=== PATIENT | female | born 1975 | race Hispanic/Latino ===

== ENCOUNTER → 2017-05-24 15:12 | Outpatient (CLI) | payer OTHER, SELFPAY ==
--- NOTE | 2017-05-24 15:28 | RAD_ITS ---
STUDY: X-RAY CHEST REASON FOR EXAM: Female, 41 years old. Cough TECHNIQUE: Frontal and lateral views of the chest were obtained. COMPARISON: Prior comparison studies are not available for review at this time. FINDINGS: The lungs are adequately aerated. There are no focal airspace opacities. There is no demonstrated pleural abnormality. The cardiac silhouette is normal in size. The mediastinum and hilar regions are unremarkable. Normal visualized pulmonary arteries. Normal visualized aortic arch and descending thoracic aorta. There are mild diffuse degenerative changes of the visualized spine. The visualized ribs, clavicles, and shoulders are unremarkable. There is no demonstrated abnormality of the visualized upper abdomen. RAD/Chest PA and Lateral IMPRESSION: There is no evidence of focal consolidation or pleural effusion. Electronically Signed: Chrystal Evans MD at 16:13 EST Tel Direct: [phone], Service support ,
[2017-05-24 16:36] LABS: Absolute Lymphocyte Count 1.79 X10^3/ul (0.83-4.51); Absolute Neutrophil Count 3.7 X10^3/uL (2.0-7.7); Basophil# 0.06 X10^3/uL; Eosinophil# 0.16 X10^3/uL; Eosinophils% 2.6 % (0-5); Hematocrit 40.8 % (37-47); Hemoglobin 13.3 g/dl (12.0-15.0); Lymphocyte # 1.79 X10^3/ul (4.0); Lymphocyte % 29.2 % (19-41); Mean Corp Hgb Conc 32.6 g/gl (32-36); Mean Corpuscular Volume 89.1 fL (81-99); Mean Platelet Vol. 10.1 fl (6.2-12.0); Monocyte% 6.5 % (0-10); Neutrophil # 3.71 X10^3/uL (2.7-7.7); Neutrophil % 60.5 % (47-70); Platelet Count 307 K/mm3 (150-450); RBC Distribution Width CV 13.1 % (11.6-14.6); RBC Distribution Width SD 42.7 fl (35.1-43.9); Red Blood Count 4.58 M/mm3 (4.2-5.4); White Blood Count 6.1 K/mm3 (4.4-11.0)
[2017-05-24 16:41] LABS: POSITIVE COUNT NO; POSITIVE DIFFERENTIAL NO; POSITIVE MORPHOLOGY NO
[2017-05-24 17:26] LABS: D-Dimer Quantitative (DVT/PE) 0.28 FEU/ug/m (0.27-0.49)
== END ==
PROVIDERS: Family Provider Family Medicine; PCP Family Medicine; Visit Provider Family Medicine
DX: J40 Bronchitis, not specified as acute or chronic (principal)
CPT/HCPCS: 36415; 71046; 85025; 85379

== ENCOUNTER → 2018-03-02 11:40 | Outpatient (CLI) | payer OTHER, SELFPAY ==
[2018-03-02 16:04] LABS: Vitamin D,25 Hydroxy 23.9 ng/mL (29.95-100.01)
[2018-03-02 16:09] LABS: Absolute Lymphocyte Count 1.96 X10^3/ul (0.83-4.51); Absolute Neutrophil Count 3.9 X10^3/uL (2.0-7.7); Basophil# 0.04 X10^3/uL; Basophil% 0.6 % (0-1); Eosinophil# 0.18 X10^3/uL; Eosinophils% 2.8 % (0-5); Hematocrit 44.1 % (37-47); Hemoglobin 14.2 g/dl (12.0-15.0); Lymphocyte # 1.96 X10^3/ul (4.0); Lymphocyte % 30.2 % (19-41); Mean Corp Hgb Conc 32.2 g/gl (32-36); Mean Corpuscular Hgb 29.1 pg (27.0-32.0); Mean Corpuscular Volume 90.4 fL (81-99); Mean Platelet Vol. 10.1 fl (6.2-12.0); Monocyte# 0.44 X10^3/uL; Monocyte% 6.8 % (0-10); Neutrophil # 3.87 X10^3/uL (2.7-7.7); Neutrophil % 59.4 % (47-70); Platelet Count 303 K/mm3 (150-450); RBC Distribution Width CV 13.5 % (11.6-14.6); RBC Distribution Width SD 44.4 fl (35.1-43.9); Red Blood Count 4.88 M/mm3 (4.2-5.4); White Blood Count 6.5 K/mm3 (4.4-11.0)
[2018-03-02 16:19] LABS: ALB/GLOB Ratio 1.1 RATIO (0.9-2.4); AST(SGOT) 35 U/L (15-37); Alanine Aminotransfer ALT/SGPT 47 U/L (13-56); Alkaline Phosphatase 76 U/L (45-117); Anion Gap 9 (5-15); BUN 14 mg/dL (7-18); BUN/Creat Ratio 21.1 RATIO (10-20); Calcium,Total 9.1 mg/dL (8.5-10.1); Chloride 104 mmol/L (98-107); Cholesterol 176 mg/dL (200); Creatinine, Serum 0.66 mg/dL (0.55-1.02); EST Glomerular Filtration Rate 104 mL/min (>60); Est Glom Filt Rate - Afr Amer 126 mL/min (>60); Globulin 3.8 g/dL (2.2-4.2); Glucose 87 mg/dL (74-106); High Density Lipoprotein 48 mg/dL; Potassium 4.5 mmol/L (3.5-5.1); Protein, Total 7.8 g/dL (6.4-8.2); Sodium Level 139 mmol/L (136-145); Thyroid Stim Hormone (TSH) 1.68 uIU/mL (0.358-3.74); Triglycerides 141 mg/dL; Very Low Density Lipoprotein 28 mg/dL (5-40)
[2018-03-02 16:36] LABS: POSITIVE COUNT NO; POSITIVE DIFFERENTIAL NO; POSITIVE MORPHOLOGY NO
== END ==
PROVIDERS: Family Provider Family Medicine; PCP Family Medicine; Visit Provider Family Medicine
DX: Z00.00 Encounter for general adult medical examination without abnormal findings (principal); R10.9 Unspecified abdominal pain
CPT/HCPCS: 36415; 80053; 80061; 82306; 84443; 85025

== ENCOUNTER → 2018-03-03 16:16 | Outpatient (CLI) | payer OTHER, SELFPAY ==
--- NOTE | 2018-03-03 16:21 | US_ITS ---
STUDY: ABDOMINAL ULTRASOUND REASON FOR EXAM: Female, 42 years old. Left upper quadrant pain TECHNIQUE: Transabdominal ultrasound was performed with real-time and static george scale imaging. TECHNICAL QUALITY: Adequate. COMPARISON: None. FINDINGS: Liver: The liver measures 15 cm. There is normal echogenicity of the liver. The bile ducts are within normal limits. There is no demonstrated mass lesion. Gallbladder: The patient is status post cholecystectomy. Common Bile Duct (C.B.D.): The common bile duct measures 4 mm. Pancreas: Normal head and body of the pancreas. Nonvisualized pancreatic tail secondary to bowel gas. There is normal echogenicity of the pancreas. There is no demonstrated pancreatic mass or cyst. Spleen: Normal size of the spleen. The spleen measures 11.8 x 5.3 x 4.1 cm. Right Kidney: Normal size of the right kidney. The right kidney measures 11.3 x 6.0 x 5.9 cm. Normal renal cortex. The right cortex measures 1.8 cm. There is no demonstrated renal mass or cyst. There is no right hydronephrosis. Left Kidney: Normal size of the left kidney. The left kidney measures 11.7 x 5.1 x 5.8 cm. Normal renal cortex. The left cortex measures 1.5 cm. There is no demonstrated renal mass or cyst. There is no left hydronephrosis. Aorta: Negative for aneurysm. I.V.C.: The IVC is patent. There is no ascites. US/Abdomen Complete IMPRESSION: Pancreatic tail not visualized secondary to bowel gas. Otherwise normal abdomen ultrasound status post cholecystectomy. Electronically Signed: Angela Campbell MD at 18:49 EST , Service support ,
== END ==
PROVIDERS: Family Provider Family Medicine; PCP Family Medicine; Referring Provider Family Medicine; Visit Provider Family Medicine
DX: R10.9 Unspecified abdominal pain (principal)
CPT/HCPCS: 76700

== ENCOUNTER → 2018-03-15 18:12 | Outpatient (CLI) | payer OTHER, SELFPAY ==
[2018-03-15 09:58] VITALS: BMI 37.2
--- NOTE | 2018-03-15 18:17 | US_ITS ---
STUDY: ULTRASOUND OF THE FEMALE PELVIS - COMPLETE REASON FOR EXAM: Female, 42 years old. Left lower quadrant pain LMP: Unknown. TECHNIQUE: Transabdominal and Transvaginal TECHNICAL QUALITY: Adequate. COMPARISON: None. FINDINGS: The uterus is anteverted and is in a midline position. The uterus measures 8.9 x 4.8 x 3.7 cm. There is a Nabothian cyst of the cervix. The endometrium measures 7 mm in thickness, and is hyperechoic. There is no demonstrated endometrial mass. There is no demonstrated myometrial mass. I.U.D. - The patient does not have an I.U.D. The right ovary is non-visualized. The left ovary is visualized. The left ovary measures 2.2 x 1.9 x 1.7 cm. There is no left ovarian cyst or ovarian mass. There is no visualized left adnexal mass or complex lesion. There is normal arterial and normal venous vascularity. There is no fluid in the cul-de-sac. The pre void volume of the bladder was 11.9 ml. Polycystic ovary disease: No. US/Transvaginal Non- IMPRESSION: The right ovary was not visualized. Uterus and left ovary are unremarkable. There is a cervical nabothian cyst. There is no fluid in the cul-de-sac. Electronically Signed: Arias Acevedo MD at 23:59 EST , Service support ,
[2018-03-15 23:17] LABS: Chlamydia Trachomatis by PCR Negative (Negative); Neisserai gonorrhoeae by PCR Negative (Negative); Probe Check PASS; Sample Adequacy Control PASS; Specimen Processing Control PASS
--- OUTSIDE RECORDS SUMMARY | 2018-06-17 06:06 | XMS RPT_ITS ---
:1975 Author Organization OHIP Support Name Relationship Address Phone ALONOVUS CYNTHIA Unavailable [phone] + [place] [address] NAVAS, ZAIRE Unavailable [address] + [place] [address] BRENDAN, THEE Unavailable [address] + [place] [address] ALONOVUS CYNTHIA Unavailable [address] + [place] [address] NAVAS, ZAIRE Unavailable [address] + [place] [address] BRENDAN, THEE Unavailable [address] + [place] [address] ALONOVUS CYNTHIA Unavailable [address] + [place] [address] NAVAS, ZAIRE Unavailable [address] + [place] [address] BRENDAN, THEE Unavailable [address] + [place] [address] ALONOVUS CYNTHIA Unavailable [address] + [place] [address] NAVAS, ZAIRE Unavailable [address] + [place] [address] BRENDAN, THEE Unavailable [address] + [place] [address] ALONOVUS CYNTHIA Unavailable [address] + [place] [address] NAVAS, ZAIRE Unavailable [address] + [place] [address] BRENDAN, THEE Unavailable [address] + [place] [address] ALONOVUS CYNTHIA Unavailable . +. . ., . . NAVAS, ZAIRE Unavailable [address] + [place] [address] THEE CARDONA Unavailable [address] [facility] + [place] [address] ALONOVUS CYNTHIA Unavailable . +. . ., . . NAVAS, ZAIRE Unavailable [address] + [place] [address] THEE CARDONA Unavailable [address] [facility] + [place] [address] Care Team Providers Name Role Phone Jacqueline Martinez Attending Unavailable Siu, Ashok Primary Care Unavailable Siu, Ashok Attending Unavailable Siu, Ashok Referring Unavailable Siu, Ashok Primary Care Unavailable Siu, Ashok Attending Unavailable Siu, Ashok Primary Care Unavailable CharlotteJacqueline Attending Unavailable Siu, Ashok Referring Unavailable Siu, Ashok Attending Unavailable Siu, Ashok Referring Unavailable Siu, Ashok Primary Care Unavailable MichelleJacqueline Attending Unavailable Siu, Ashok Referring Unavailable Siu, Ashok Attending Unavailable Siu, Ashok Primary Care Unavailable PROBLEMS PROBLEMS DATE TYPE CONDITION / CODE ATTENDING STATUS SOURCE 03/16/2018 Unknown R10.9 - Ashok Siu Active [place] Unspecified Community abdominal pain / Hospital R10.9(ICD-10) Repository 03/15/2018 Unknown R10.2 - Pelvic MichelleJacqueline de leon Active [place] and perineal pain Community / R10.2(ICD-10) Hospital Repository 03/02/2018 Unknown Z00.00 - Ashok Siu Active [place] Encounter for [facility] medical Repository examination without abnormal findings / Z00.00(ICD-10) 05/24/2017 Unknown J40 - Bronchitis, Ashok Siu Active [place] not specified as [facility] acute or chronic Hospital / J40(ICD-10) Repository PROCEDURES PROCEDURES No Procedure Records FoundRESULTS RESULTS RELATIONSHIP ADVISOR OFFICE VISIT Observed: 04/04/2018 Status: F Source: [place] REPORT 12:03 PM [facility] REPOSITORY [facility] 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 Is patient in pain?: No Allergies No Known Allergies Allergy (Verified 04/04/18 11:28) Medications fluoxetine 20 mg capsule 20 mg PO DAILY 03/15/18 [History Confirmed 04/04/18] omeprazole 20 mg capsule,delayed release 20 mg PO DAILY 03/15/18 [History Confirmed 04/04/18] cholecalciferol (vitamin D3) 2,000 unit capsule 2,000 unit PO DAILY 04/04/18 [History Confirmed 04/04/18] dicyclomine 20 mg tablet 20 mg PO .4 times per day tab 04/04/18 [History Confirmed 04/04/18] norgestimate 0.18 mg/0.215 mg/0.25 mg-ethinyl estradiol 25 mcg tablet 1 tab PO DAILY #84 tab 04/04/18 [Rx Confirmed 04/04/18] polyethylene glycol 3350 17 gram/dose oral powder PO g 04/04/18 [History Confirmed 04/04/18] Is last menstrual period known: Yes Last Menstral Period: 03/24/18 Post menopausal: No Patient : No : No PFSH Medical History Acid reflux (Acute) Vitamin D deficiency (Acute) Chronic diarrhea (Chronic) History of anxiety (Acute) Surgical History History of carpal tunnel surgery (Acute) History of tonsillectomy (Acute) Hx of cholecystectomy (Acute) Family History Unknown Diabetes Grandmother Heart disease Colon cancer Social History Smoking Status: Never smoker alcohol intake: current details: social substance use type: does not use caffeine: Yes what type of physical activity do you participate in: aerobics frequency: 1-2 times per week seatbelt use: always do you feel safe at home: Yes additional social history: Single- [place] Weekly News Pregancy History 3 Elective abortions Hx Para 3 Spontaneous abortions Past Pregnancies Del. 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 Last PAP: 2017 History of abnormal PAP: no Last mammogram: sched 04/23/18 History of abnormal mammogram: no Seen in this office last month for pelvic and abdominal pain. Normal US. Diagnosed shingles about 4 days later. Following with PCP. Now on prozac and still feeling irritable. Female Reproductive History Last Menstral Period: 03/24/18 Cycle Length: 21-35 Questions: Metorrhagia: No, Sexually active: Yes, Dyspareunia: No, PCB: No ROS Const Constitutional: Denies fatigue, weight gain or weight loss Cardio Card: Denies chest pain Resp Resp: Denies cough or shortness of breath with activity GI GI: Denies abdominal pain, constipation, change in stools, vomiting or bloating : Reports as per HPI; denies urinary frequency, pelvic pain, urinary urgency, vaginal discharge, vaginal itching, urinary incontinence or difficulty urinating Exam Const General: cooperative, healthy appearing, no acute distress, well developed Orientation: alert, oriented to person, oriented to place HENFL Head: normal to inspection Neck Neck: normal visual inspection Thyroid: thyroid normal Lymphatic: no lymphadenopathy noted Chest Breast inspection: normal inspection of the breasts, normal inspection of the axillae Breast palpation: normal palpation of the breasts, normal palpation of the axillae, no axillary lymphadenopathy Resp Effort AND Inspection: normal respiratory effort GI Palpation: soft, nontender, no masses Rectal Exam: deferred External Female Exam: normal external appearance, normal appearance of the urethra Urethra: normal appearance of the urethra, normal palpation Speculum Exam - Vagina: normal appearance of the vagina, normal vaginal discharge Speculum Exam - Cervix: normal appearance of the cervix Bimanual Exam- Vagina AND Uterus: normal bimanual exam, uterine size normal, uterine shape normal, uterus non-tender Bimanual Exam- Adnexa, other: normal adnexae, no adnexal masses, adnexae non-tender, pelvic support normal Pelvic Support: normal Neuro General: alert, oriented x3 Psych Affect: normal affect Assessment AND Plan Problems 1. 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 Medications New: norgestimate 0.18 mg/0.215 mg/0.25 mg-ethinyl estradiol 25 mcg1 tab PO DAILY 84 tabs 3RF tablet (Zlm-Ao-Clyiuv 0.18 mg/0.215 mg/0.25 mg-25 mcg tablet) Coding Level of Care Code Off vis,est,prev 40-64yrs Diagnoses Encounter for gynecological examination without abnormal finding Z01.419 Gynecological examination findings: abnormal findings ABSENT 04/04/18 1203 <Electronically signed by Jacqueline MARR> Date Jacqueline MARR Cosigner Signature: Date (if applicable) CC: ABD INC DECUB Observed: 03/16/2018 Status: F Source: [place] AND/OR E[place] 9:48 [place] [facility] [facility] Imaging Services [address] [place] [address] Abd Inc Decub and/or Erect MR#: [id number] Acct: [id number] Name: SAMMIE CARDONA Rep #: [id number] : 1975 F 42 From: [place] Acevedo MD PCP: Ashok Siu MD Status: REG CLI Study: Abd Inc Decub and/or Erect Date of Exam: 03/16/18 Exam# [id number] Ordering Dr: Ashok Siu MD STUDY: X-RAY - ABDOMEN/PELVIS REASON FOR EXAM: Female, 42 years old. Left-sided abdominal pain, nausea, diarrhea TECHNIQUE: AP supine and upright views of the abdomen and pelvis. COMPARISON: None. FINDINGS: Normal visualized lung bases. There is an unremarkable bowel gas pattern. There is no demonstrated free abdominal air. The visualized liver, spleen and kidneys are grossly normal in size and morphology. There are numerous bilateral pelvic phleboliths. Normal visualized osseous structures. RAD/Abd Inc Decub and/or Erect IMPRESSION: Numerous bilateral pelvic phleboliths. The study is otherwise unremarkable. Electronically Signed: [place] Acevedo MD at 22:16 EST , Service support , CC: Ashok Siu MD Supplier Development Manager: Signed CT/NG [facility] BY PCR Collected: 03/15/2018 Status: F Source: [place] 6:57 PM [facility] [place] TYPE CODE TESTS RESULT OUT OF RANGE REFERENCE UNITS LAB L8200.2100 Negative Normal Chlam Negative Trac PCR LAB L8200.2200 Negative Normal NG by Negative PCR Performed By: #### L8200.2000 #### [facility] [address] [place], [address] TRANSVAGINAL Observed: 03/15/2018 Status: F Source: [place] NON- 6:17 PM [facility] [place] [facility] Imaging Services [address] [place] [address] Transvaginal Non- MR#: [id number] Acct: [id number] Name: SAMMIE CARDONA Rep #: [id number] : 1975 F 42 From: [place] Acevedo MD PCP: Ashok Siu MD Status: REG CLI Study: Transvaginal Non- Date of Exam: 03/15/18 Exam# [id number] Ordering Dr: Jacqueline Martinez STUDY: ULTRASOUND OF THE FEMALE PELVIS - COMPLETE REASON FOR EXAM: Female, 42 years old. Left lower quadrant pain LMP: Unknown. TECHNIQUE: Transabdominal and Transvaginal TECHNICAL QUALITY: Adequate. COMPARISON: None. FINDINGS: The uterus is anteverted and is in a midline position. The uterus measures 8.9 x 4.8 x 3.7 cm. There is a Nabothian cyst of the cervix. The endometrium measures 7 mm in thickness, and is hyperechoic. There is no demonstrated endometrial mass. There is no demonstrated myometrial mass. I.U.D. - The patient does not have an I.U.D. The right ovary is non-visualized. The left ovary is visualized. The left ovary measures 2.2 x 1.9 x 1.7 cm. There is no left ovarian cyst or ovarian mass. There is no visualized left adnexal mass or complex lesion. There is normal arterial and normal venous vascularity. There is no fluid in the cul-de-sac. The pre void volume of the bladder was 11.9 ml. Polycystic ovary disease: No. US/Transvaginal Non- IMPRESSION: The right ovary was not visualized. Uterus and left ovary are unremarkable. There is a cervical nabothian cyst. There is no fluid in the cul-de-sac. Electronically Signed: [place] Acevedo MD at 23:59 EST , Service support , CC: SHERINE Martinez; Ashok Siu MD Supplier Development Manager: Signed RELATIONSHIP ADVISOR OFFICE VISIT Observed: 03/15/2018 Status: F Source: [place] REPORT 10:35 AM [facility] [place] [facility] [address] [place] [address] OFFICE VISIT Date of Service: 03/15/18 MR#: [id number] Acct: [id number] Name: SAMMIE CARDONA Rep #: [id number] : 1975 Provider: SHERINE Martinez Age/Sex: 42/F [place] [facility] [place]: Signed Intake Vital Signs03/15/18 Height 5 ft 8 in 03/15/18 Weight: 245 lb 03/15/18 Body Mass Index (BMI) 37.2 03/15/18 Blood Pressure 120/78 Intake Visit Reasons: Pelvic pain (left side) w/bleeding and discharge Chief 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: 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, 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: No Is patient in pain?: No Allergies No Known Allergies Allergy (Verified 03/15/18 09:58) Medications fluoxetine 20 mg capsule 20 mg PO DAILY 03/15/18 [History Confirmed 03/15/18] norgestimate 0.18 mg/0.215 mg/0.25 mg-ethinyl estradiol 25 mcg tablet 1 tab PO DAILY 03/15/18 [History Confirmed 03/15/18] omeprazole 20 mg capsule,delayed release 20 mg PO DAILY 03/15/18 [History Confirmed 03/15/18] Is last menstrual period known: Yes Last Menstral Period: 02/23/18 Post menopausal: No Patient : No : No PFSH Medical History History of anxiety (Acute) Surgical History History of carpal tunnel surgery (Acute) History of tonsillectomy (Acute) Hx of cholecystectomy (Acute) Family History Unknown Diabetes Grandmother Heart disease Colon cancer Social History Smoking Status: Never smoker alcohol intake: current details: social substance use type: does not use caffeine: Yes what type of physical activity do you participate in: none seatbelt use: always do you feel safe at home: Yes additional social history: Single- [place] Weekly News HPI Pelvic pain (left side) w/bleeding and discharge: Details: SAMMIE CARDONA is a 42 year old who presents for new patient discussion of lower left pelvic pain and brown discharge X 5 days. Makes her feel nauseous, bloated. Has had new sexual partner. On oral contraceptive per PCP. Has annual exam scheduled next month with me Female Reproductive History Last Menstral Period: 02/23/18 Pregancy History 3 Elective abortions Hx Para 3 Spontaneous abortions Past Pregnancies Del. 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 FOB t n h a n ROS Const Constitutional: Reports as per HPI GI GI: Reports as per HPI : Reports as per HPI Exam Const General: cooperative General: bladder normal to palpation External Female Exam: normal external appearance, normal appearance of the urethra Urethra: normal appearance of the urethra Speculum Exam - Vagina: normal appearance of the vagina, nontender, no lesions, abnormal vaginal discharge (brown) Speculum Exam - Cervix: normal appearance of the cervix, other (smooth, nonfriable) Bimanual Exam- Vagina AND Uterus: bladder normal to palpation, normal bimanual exam, uterine size normal, uterine shape normal, uterine mobility normal, uterus non-tender Bimanual Exam- Adnexa, other: other (left lower pelvis tender with rebounding, 5cm ovary) Assessment AND Plan Problems 1. Pelvic pain R10.2 Plan ultrasound and call results LOYD BV, trich and GCC collected-call only with positive Orders Orders: Coding Level of Care Code Off vis,new,level 3 Diagnoses Pelvic pain R10.2 03/15/18 1035 <Electronically signed by Jacqueline MARR> Date Jacqueline MARR Cosigner Signature: Date (if applicable) CC: ABDOMEN COMPLETE Observed: 03/03/2018 Status: F Source: [place] 4:22 PM [facility] [place] [facility] [place] [address] Abdomen Complete MR#: [id number] Acct: [id number] Name: SAMMIE CARDONA Rep #: [id number] : 1975 F 42 From: Angela Campbell MD PCP: Ashok Siu MD Status: REG CLI Study: Abdomen Complete Date of Exam: 03/03/18 Exam# [id number] Ordering Dr: Ashok Siu MD STUDY: ABDOMINAL ULTRASOUND REASON FOR EXAM: Female, 42 years old. Left upper quadrant pain TECHNIQUE: Transabdominal ultrasound was performed with real-time and static george scale imaging. TECHNICAL QUALITY: Adequate. COMPARISON: None. FINDINGS: Liver: The liver measures 15 cm. There is normal echogenicity of the liver. The bile ducts are within normal limits. There is no demonstrated mass lesion. Gallbladder: The patient is status post cholecystectomy. Common Bile Duct (C.B.D.): The common bile duct measures 4 mm. Pancreas: Normal head and body of the pancreas. Nonvisualized pancreatic tail secondary to bowel gas. There is normal echogenicity of the pancreas. There is no demonstrated pancreatic mass or cyst. Spleen: Normal size of the spleen. The spleen measures 11.8 x 5.3 x 4.1 cm. Right Kidney: Normal size of the right kidney. The right kidney measures 11.3 x 6.0 x 5.9 cm. Normal renal cortex. The right cortex measures 1.8 cm. There is no demonstrated renal mass or cyst. There is no right hydronephrosis. Left Kidney: Normal size of the left kidney. The left kidney measures 11.7 x 5.1 x 5.8 cm. Normal renal cortex. The left cortex measures 1.5 cm. There is no demonstrated renal mass or cyst. There is no left hydronephrosis. Aorta: Negative for aneurysm. I.V.C.: The IVC is patent. There is no ascites. US/Abdomen Complete IMPRESSION: Pancreatic tail not visualized secondary to bowel gas. Otherwise normal abdomen ultrasound status post cholecystectomy. Electronically Signed: Angela Campbell MD at 18:49 EST , Service support , CC: Ashok Siu MD Supplier Development Manager: Signed VITAMIN D,25 HYDROXY Collected: 03/02/2018 Status: F Source: [place] 11:41 AM [facility] [place] TYPE CODE TESTS RESULT OUT OF REFERENCE UNITS RANGE LAB L506.1000 29.95-100.01 ng/mL Low Vitamin D 23.9 25-OH Result Comment: Vitamin D 25(OH) Status Range Deficiency <20 ng/mL (50nmol/L) Insuffciency 20 - 30 ng/mL (50 - 75 nmol/L) Sufficiency 30 - 100 ng/mL (75 - 250 nmol/L) Toxicity >100 ng/mL (>250 nmol/L) Performed By: #### L506.1000 #### [facility] [address] [place], [place], [address] COMPREHENSIVE METABOLIC Collected: 03/02/2018 Status: F Source: [place] 11:41 AM [facility] [place] TYPE CODE TESTS RESULT OUT OF RANGE REFERENCE UNITS LAB L501.0100 74-106 mg/dL Normal GLU 87 Result Comment: Please note revised GLUCOSE reference range effective 2017. LAB L501.1000 7-18 mg/dL Normal BUN 14 LAB L501.1100 0.55-1.02 mg/dL Normal CREAT,SERUM 0.66 Result Comment: The validity of the calculated GFR AND GFRAA in patients over 70 years has not been determined. Clinical correlation is essential. LAB L501.1110 >60 mL/min Normal EST GFR 104 Result Comment: Non- GFR Calc LAB L501.1115 >60 mL/min Normal EST GFR - AA 126 Result Comment: GFR Calc LAB L501.1300 10-20 RATIO High BUN/CRE 21.1 LAB L501.1500 6.4-8.2 g/dL T Normal PROT 7.8 LAB L501.1800 3.2-5.0 g/dL Normal ALB 4.0 LAB L501.1950 2.2-4.2 g/dL Normal GLOB 3.8 LAB L501.2000 0.9-2.4 RATIO Normal A/G 1.1 LAB L501.2200 8.5-10.1 mg/dL CA Normal 9.1 LAB L501.4100 15-37 U/L Normal AST 35 LAB L501.4305 45-117 U/L Normal ALK P 76 LAB L501.4405 13-56 U/L Normal ALT 47 LAB L501.4600 0.20-1.00 mg/dL T Normal BILI 0.50 LAB L501.5300 136-145 mmol/L NA Normal 139 LAB L501.5600 3.5-5.1 mmol/L K Normal 4.5 LAB L501.5900 98-107 mmol/L CL Normal 104 LAB L501.6100 21.0-32.0 mmol/L Normal CO2 26.0 LAB L501.6200 5-15 Normal GAP 9 Performed By: #### L500.4050, L500.4100, L501.9520 #### [facility] [address] [place], [address] LIPID PROFILE Collected: 03/02/2018 Status: F Source: [place] 11:41 AM [facility] [place] TYPE CODE TESTS RESULT OUT OF RANGE REFERENCE UNITS LAB L501.4900 200 mg/dL Normal CHOL 176 Result Comment: <200 mg/dL Desirable 200-240 mg/dL Borderline >240 mg/dL High Risk LAB L501.5000 mg/dL Normal TRIG 141 Result Comment: The drugs N-Acetylcysteine and Metamizole may falsely depress this assay. Serum Triglycerides Reference Interval Normal <150 mg/dL Borderline high 150 - 199 mg/dL High 200 - 499 mg/dL Very High > or = 500 mg/dL LAB L501.6400 mg/dL Normal HDL 48 Result Comment: The drugs N-Acetylcysteine and Metamizole may falsely depress this assay. Reference Range HDL <40 mg/dL Low HDL Cholesterol HDL >or= 60 mg/dL High HDL Cholesterol LAB L501.6500 0-130 mg/dL Normal LDL 100 LAB L501.6600 5-40 mg/dL Normal VLDL 28 Performed By: #### L500.4050, L500.4100, L501.9520 #### [facility] [address] [facility] [place], [address] THYROID STIM HORMONE Collected: 03/02/2018 Status: F Source: [place] ([place]) 11:41 AM [facility] [place] TYPE CODE TESTS RESULT OUT OF RANGE REFERENCE UNITS LAB L501.9520 0.358-3.74 uIU/mL Normal TSH 1.68 Performed By: #### L500.4050, L500.4100, L501.9520 #### [facility] [address] [place], [address] CBC W/DIFF, AUTOMATED Collected: 03/02/2018 Status: F Source: [place] 11:41 AM [facility] [place] TYPE CODE TESTS RESULT OUT OF RANGE REFERENCE UNITS LAB L100.1000 4.4-11.0 K/mm3 Normal WBC 6.5 LAB L100.1200 4.2-5.4 M/mm3 Normal RBC 4.88 LAB L100.1300 12.0-15.0 g/dl Normal HGB 14.2 LAB L100.1400 37-47 % Normal HCT 44.1 LAB L100.1500 81-99 fL Normal MCV 90.4 LAB L100.1600 27.0-32.0 pg Normal MCH 29.1 LAB L100.1700 32-36 g/gl Normal MCHC 32.2 LAB L100.1810 11.6-14.6 % Normal RDW CV 13.5 LAB L100.1820 35.1-43.9 fl High RDW SD 44.4 LAB L100.1900 150-450 K/mm3 Normal PLT 303 LAB L100.2000 6.2-12.0 fl Normal MPV 10.1 LAB L100.2100 47-70 % Normal NEUT% 59.4 LAB L100.2200 19-41 % Normal LY% 30.2 LAB L100.2300 0-10 % Normal MONO% 6.8 LAB L100.2400 0-5 % Normal EO% 2.8 LAB L100.2500 0-1 % Normal BASO% 0.6 LAB L100.2550 0.0-0.9 % Normal IM GRAN % 0.200 Result Comment: IG% - Immature Granulocytes (promyelocytes, myelocytes and metamyelocytes) > 1% indicates that a LEFT SHIFT is Present. LAB L100.2620 2.0-7.7 X10 3/uL Normal Absolute Neut 3.9 LAB L100.2720 0.83-4.51 X10 3/ul Normal Absolute Lymph 1.96 Performed By: #### L100.0100 #### [facility] [address] [place], [address] CHEST PA AND LATERAL Observed: 05/24/2017 Status: F Source: [place] 3:29 PM [facility] REPOSITORY [facility] [place] [address] Chest PA and Lateral MR#: [id number] Acct: [id number] Name: SAMMIE CARDONA Rep #: [id number] : 1975 F 41 From: Chrystal Evans MD PCP: Ashok Siu MD Status: REG CLI Study: Chest PA and Lateral Date of Exam: 05/24/17 Exam# [id number] Ordering Dr: Ashok Siu MD STUDY: X-RAY CHEST REASON FOR EXAM: Female, 41 years old. Cough TECHNIQUE: Frontal and lateral views of the chest were obtained. COMPARISON: Prior comparison studies are not available for review at this time. FINDINGS: The lungs are adequately aerated. There are no focal airspace opacities. There is no demonstrated pleural abnormality. The cardiac silhouette is normal in size. The mediastinum and hilar regions are unremarkable. Normal visualized pulmonary arteries. Normal visualized aortic arch and descending thoracic aorta. There are mild diffuse degenerative changes of the visualized spine. The visualized ribs, clavicles, and shoulders are unremarkable. There is no demonstrated abnormality of the visualized upper abdomen. RAD/Chest PA and Lateral IMPRESSION: There is no evidence of focal consolidation or pleural effusion. Electronically Signed: Chrystal Evans MD at 16:13 EST Tel Direct: [phone], Service support , CC: Ashok Siu MD Supplier Development Manager: Signed CBC W/DIFF, AUTOMATED Collected: 05/24/2017 Status: F Source: [place] 3:15 PM [facility] [place] TYPE CODE TESTS RESULT OUT OF RANGE REFERENCE UNITS LAB L100.1000 4.4-11.0 K/mm3 Normal WBC 6.1 LAB L100.1200 4.2-5.4 M/mm3 Normal RBC 4.58 LAB L100.1300 12.0-15.0 g/dl Normal HGB 13.3 LAB L100.1400 37-47 % Normal HCT 40.8 LAB L100.1500 81-99 fL Normal MCV 89.1 LAB L100.1600 27.0-32.0 pg Normal MCH 29.0 LAB L100.1700 32-36 g/gl Normal MCHC 32.6 LAB L100.1810 11.6-14.6 % Normal RDW CV 13.1 LAB L100.1820 35.1-43.9 fl Normal RDW SD 42.7 LAB L100.1900 150-450 K/mm3 Normal PLT 307 LAB L100.2000 6.2-12.0 fl Normal MPV 10.1 LAB L100.2100 47-70 % Normal NEUT% 60.5 LAB L100.2200 19-41 % Normal LY% 29.2 LAB L100.2300 0-10 % Normal MONO% 6.5 LAB L100.2400 0-5 % Normal EO% 2.6 LAB L100.2500 0-1 % Normal BASO% 1.0 LAB L100.2550 0.0-0.9 % Normal IM GRAN % 0.200 Result Comment: IG% - Immature Granulocytes (promyelocytes, myelocytes and metamyelocytes) > 1% indicates that a LEFT SHIFT is Present. LAB L100.2620 2.0-7.7 X10 3/uL Normal Absolute Neut 3.7 LAB L100.2720 0.83-4.51 X10 3/ul Normal Absolute Lymph 1.79 Performed By: #### L100.0100 #### [facility] [address] [place], [place], [id number] D-DIMER QUANTITATIVE Collected: 05/24/2017 Status: F Source: [place] (DVT/PE) 3:15 PM [facility] TYPE CODE TESTS RESULT OUT OF RANGE REFERENCE UNITS LAB L300.8000 0.27-0.49 FEU/ug/m Normal D-DIMER 0.28 QUANT Result Comment: NORMAL D-Dimer level (<0.50) indicates no DVT or PE. Performed By: #### L300.8000 #### [facility] [address] [place], [address] ALLERGIES ALLERGIES DATE TYPE / CODE NAME / CODE REACTION SEVERITY SOURCE 04/04/2018 Drug No Known Unknown [facility] Allergy/4160 Allergies/F00 [facility] 47748(SNOMED 0268965(RXNOR Repository CT) M) ENCOUNTERS ENCOUNTERS ADMIT/DISCHARGE ACCOUNT ADMITTING ENCOUNTER LOCATION SOURCE NUMBER CLASS 04/04/2018/ [id number] Ambulatory BMSBuilding:B [place] 9 3 [facility] Repository 03/16/2018 [id number] Ambulatory [place] 5 [facility] ing:[facility] Repository 03/15/2018 [id number] Ambulatory [place] 8 [facility] ing:[place] Repository 03/15/2018/ [id number] Ambulatory BMSBuilding:B [place] 8 8 [facility] Repository 03/03/2018 [id number] Ambulatory [place] 7 [facility] ing:[place] Repository 03/02/2018 [id number] Ambulatory [place] 0 [facility] ing:[place] Repository 05/24/2017 [id number] Ambulatory [place] 4 [facility] ing:[place] Repository PAYERS PAYERS ENCOUNTER GUARANTOR PAYER SUBSCRIBER SOURCE 04/04/2018 SAMMIE L Primary SAMMIE L [place] [id number] POINT Insurance:AULTCAREPol ELWOODDOB: Community [place] icy Number: [id number], [place] [id number] Repository [address]Gaw: 330) Date:0910-01-58IV [phone] (JQ) [address] [address]NW: 04/04/2018 Secondary NOT GIVENUNK [place] Insurance:SELF PAY [facility] Number: Effective Repository Date:2018-04-04 03/16/2018 SAMMIE L Primary SAMMIE L [place] [id number] POINT Insurance:AULTCAREPol ELWOODDOB: [facility] OF VIEW icy Number: [id number], [place] [id number] Repository [address]78[address]Vte: (330) Date:4046-70-11HT [phone] (HP) [address] [address]KZ: 03/16/2018 Secondary NOT GIVENUNK [place] Insurance:SELF PAY [facility]: Effective Repository Date:2018-03-16 03/15/2018 SAMMIE L Primary SAMMIE L [place] [id number] POINT Insurance:AULTCAREPol ELWOODDOB: [place] Number: [id number], [place] [id number] Repository 333[address]Yti: (330) Date:8899-69-90IC [phone] (HP) [address] [address]XA: 03/15/2018 Secondary NOT GIVENUNK [place] Insurance:SELF PAY [facility] Number: Effective Repository Date:2018-03-15 03/15/2018 SAMMIE L Primary SAMMIE L [place] [id number] POINT Insurance:AULTCAREPol ELWOODDOB: [place] Number: [id number], [place] [id number] Repository 245[address]Waz: (330) Date:4003-99-99HR [phone] (HP) [address] [address]GI: 03/15/2018 Secondary NOT GIVENUNK [place] Insurance:SELF PAY [facility] Number: Effective Repository Date:2018-03-15 03/03/2018 SAMMIE L Primary SAMMIE L [place] [id number] POINT Insurance:AULTCAREPol ELWOODDOB: [place] icy Number: [id number], [place] [id number] Repository 514[address]Uvy: (330) Date:3681-13-44LM [phone] (HP) [address] [address]MT: 03/03/2018 Secondary NOT GIVENUNK [place] Insurance:SELF PAY [facility] Hospital Number: Effective Repository Date:2018-03-02 03/02/2018 SAMMIE L Primary SAMMIE L [place] [id number] POINT Insurance:AULTCAREPol ELWOODDOB: [place] icy Number: [id number], [place] [id number] Repository [address]Hcp: (330) Date:4729-76-08VX [phone] () [address] [address]BS: 03/02/2018 Secondary NOT GIVENUNK [place] Insurance:SELF PAY [facility] Hospital Number: Effective Repository Date:2018-03-02 05/24/2017 Sammie L Primary Sammie L [place] [id number] Point Insurance:AULTCAREPol ElwoodDOB: [place] Number: [id number], [place] [id number] Repository [address]Ora: (330) Date:1583-47-02MD [phone] () [address] [address]FZ: 05/24/2017 Secondary NOT GIVENUNK [place] Insurance:SELF PAY [facility] Number: Effective Repository Date:2017-05-24
== END ==
PROVIDERS: Family Provider Family Medicine; PCP Family Medicine; Visit Provider Nurse Practitioner Women's Health
DX: R10.2 Pelvic and perineal pain (principal)
CPT/HCPCS: 76830; 87491; 87591; 93976

== ENCOUNTER → 2018-03-16 09:44 | Outpatient (CLI) | payer OTHER, SELFPAY ==
[2018-03-15 09:58] VITALS: BMI 37.2
--- NOTE | 2018-03-16 09:48 | RAD_ITS ---
STUDY: X-RAY - ABDOMEN/PELVIS REASON FOR EXAM: Female, 42 years old. Left-sided abdominal pain, nausea, diarrhea TECHNIQUE: AP supine and upright views of the abdomen and pelvis. COMPARISON: None. FINDINGS: Normal visualized lung bases. There is an unremarkable bowel gas pattern. There is no demonstrated free abdominal air. The visualized liver, spleen and kidneys are grossly normal in size and morphology. There are numerous bilateral pelvic phleboliths. Normal visualized osseous structures. RAD/Abd Inc Decub and/or Erect IMPRESSION: Numerous bilateral pelvic phleboliths. The study is otherwise unremarkable. Electronically Signed: Arias Acevedo MD at 22:16 EST , Service support ,
--- OUTSIDE RECORDS SUMMARY | 2018-06-17 12:52 | XMS RPT_ITS ---
:1975 Author Organization OHIP Support Name Relationship Address Phone ALONOVUS CYNTHIA Unavailable [address] + [place] [address] NAVAS, ZAIRE Unavailable [address] + [place] [address] BRNEDAN, THEE Unavailable [address] + [place] [address] ALONOVUS CYNTHIA Unavailable [address] + [place] [address] NAVAS, ZAIRE Unavailable [address] + [place] [address] BRENDAN, THEE Unavailable [address] + [place] [address] ALONOVUS CYNTHIA Unavailable [address] + [place] [address] NAVAS, ZAIRE Unavailable [address] + [place] [address] BRENDAN, THEE Unavailable [address] + [place] [address] ALONOVUS CYNTHIA Unavailable [address] + [place] [address] NAVAS, ZAIRE Unavailable [address] + [place] [address] BRENDAN, THEE Unavailable [address] + [place] [address] ALONOVUS CYNTHIA Unavailable [address] + [place] [address] NAVAS, ZAIRE Unavailable [address] + [place] [address] BRENDAN, THEE Unavailable [address] + [place] [address] ALONOVUS CYNTHIA Unavailable . +. . ., . . NAVAS, ZAIRE Unavailable [address] + [place] [address] THEE CARDONA Unavailable [address] [facility] + [place] [address] ALONOVUS CYNTHIA Unavailable . +. . ., . . NAVAS, ZAIRE Unavailable [address] + [place] [address] THEE CARDONA Unavailable [address] [facility] + [place] [address] Care Team Providers Name Role Phone Jacqueline Martinez Attending Unavailable Siu, Ashok Referring Unavailable MichelleJacqueline Attending Unavailable Siu, Ashok Primary Care Unavailable Siu, Ashok Attending Unavailable Siu, Ashok Primary Care Unavailable Siu, Ashok Attending Unavailable Siu, Ashok Primary Care Unavailable Siu, Ashok Attending Unavailable Siu, Ashok Referring Unavailable Siu, Ashok Primary Care Unavailable MichelleJacqueline Attending Unavailable Siu, Ashok Referring Unavailable Siu, Ashok Attending Unavailable Siu, Ashok Referring Unavailable Siu, Ashok Primary Care Unavailable PROBLEMS PROBLEMS DATE TYPE CONDITION / CODE ATTENDING STATUS SOURCE 03/16/2018 Unknown R10.9 - Ashok Siu Active [place] Unspecified Community abdominal pain / Hospital R10.9(ICD-10) Repository 03/15/2018 Unknown R10.2 - Pelvic MichelleJacqueline de leon Active [place] and perineal pain Community / R10.2(ICD-10) Hospital Repository 03/02/2018 Unknown Z00.00 - Ashko Siu Active [place] Encounter for [facility] medical Repository examination without abnormal findings / Z00.00(ICD-10) 05/24/2017 Unknown J40 - Bronchitis, Ashok Siu Active [place] not specified as [facility] acute or chronic [facility] / J40(ICD-10) Repository PROCEDURES PROCEDURES No Procedure Records FoundRESULTS RESULTS 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 [place] [address] OFFICE VISIT Date of Service: 04/04/18 MR#: [id number] Acct: [id number] Name: SAMMIE CARDONA Rep #: [id number] : 1975 Provider: SHERINE Martinez Age/Sex: 42/F [place] [facility]: Signed Intake Vital Signs04/04/18 Body Mass Index (BMI) 37.2 04/04/18 Height 5 ft 8 in 04/04/18 Weight: 245 lb 2 oz 04/04/18 Body Mass Index (BMI) 37.3 04/04/18 Blood Pressure 116/88 H Intake Visit Reasons: ANNUAL Gas Analyst Required: No Is patient in pain?: No [...] at home: Yes additional social history: Single- [place] [employer] Pregancy History 3 Elective abortions [...] alert, oriented to person, oriented to place HENDC Head: normal to inspection Neck Neck: normal [...] 1 year, prn with problems Jacqueline Martinez ENDOSCOPY SUPPORT SPECIALIST Medications New: norgestimate 0.18 mg/0.215 mg/0.25 mg-ethinyl estradiol 25 mcg1 tab PO DAILY 84 tabs 3RF tablet (Fyo-Ci-Lvnkee 0.18 mg/0.215 mg/0.25 mg-25 mcg tablet) Coding Level of Care Code Off vis,est,prev 40-64yrs Diagnoses Encounter for gynecological examination without abnormal finding Z01.419 Gynecological examination findings: abnormal findings ABSENT 04/04/18 1203 <Electronically signed by Jacqueline MARR> Date Jacqueline MARR Cosigner Signature: Date (if applicable) CC: ABD INC DECUB Observed: 03/16/2018 Status: F Source: [place] AND/OR ERECT 9:48 AM [facility] REPOSIT[place] [facility] Imaging Services [address] [place] [address] Abd Inc Decub and/or Erect MR#: [id number] Acct: [id number] Name: SAMMIE CARDONA Rep #: [id number] : 1975 F 42 From: [place] Acevedo MD PCP: Ashok Siu MD Status: REG CLI Study: Abd Inc Decub and/or Erect Date of Exam: 03/16/18 Exam# [id number] Ordering Dr: Ashok Sui MD STUDY: X-RAY - ABDOMEN/PELVIS REASON FOR [...] Service support , CC: Ashok Siu MD Pet Sitting: Signed CT/NG [facility] BY PCR Collected: 03/15/2018 Status: F Source: [place] 6:57 PM [facility] REPOSITORY TYPE CODE TESTS RESULT OUT OF RANGE REFERENCE UNITS LAB L8200.2100 Negative Normal Chlam Negative Trac PCR LAB L8200.2200 Negative Normal NG by Negative PCR Performed By: #### L8200.2000 #### [facility] [address] 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 Observed: 03/15/2018 Status: F Source: [place] REPORT 10:35 AM [facility] REPOSITORY [facility] Women's [address] [place] [address] OFFICE VISIT Date of Service: 03/15/18 MR#: [id number] Acct: [id number] Name: SAMMIE CARDONA Rep #: [id number] : 1975 Provider: SHERINE Martinez Age/Sex: 42/F [place] [facility] [place]: Signed Intake Vital Signs03/15/18 Height 5 ft 8 in 03/15/18 Weight: 245 lb 03/15/18 Body Mass Index (BMI) 37.2 03/15/18 Blood Pressure 120/78 Intake Visit Reasons: Pelvic pain (left side) w/bleeding and discharge Chief Complaint: Pelvic Pain, Gas Analyst Required: No Is patient in pain?: No [...] at home: Yes additional social history: Single- [place] [employer] HPI Pelvic pain (left side) [...] ABDOMEN COMPLETE Observed: 03/03/2018 Status: F Source: [place] 4:22 PM [facility] REPOSITORY [facility] [place] [address] Abdomen Complete MR#: [id number] Acct: [id number] Name: SAMMIE CARDONA Rep #: [id number] : 1975 F 42 From: Angela Campbell MD PCP: Ashok Siu MD Status: REG CLI Study: Abdomen Complete Date of Exam: 03/03/18 Exam# [id number] Ordering Dr: Ashok Siu MD STUDY: ABDOMINAL [...] Service support , CC: Ashok Siu MD Pet Sitting: Signed VITAMIN D,25 HYDROXY Collected: 03/02/2018 Status: F Source: [place] 11:41 AM [facility] REPOSITORY TYPE CODE TESTS RESULT OUT OF REFERENCE UNITS RANGE LAB L506.1000 29.95-100.01 ng/mL Low Vitamin D 23.9 25-OH Result Comment: Vitamin D 25(OH) Status Range Deficiency <20 ng/mL (50nmol/L) Insuffciency 20 - 30 ng/mL (50 - 75 nmol/L) Sufficiency 30 - 100 ng/mL (75 - 250 nmol/L) Toxicity >100 ng/mL (>250 nmol/L) Performed By: #### L506.1000 #### [facility] [address] [place], [place], [address] COMPREHENSIVE METABOLIC Collected: 03/02/2018 Status: F Source: [place] 11:41 AM [facility] REPOSITORY TYPE CODE TESTS RESULT OUT OF [...] Performed By: #### L500.4050, L500.4100, L501.9520 #### [facility] [address] [place], [address] LIPID PROFILE Collected: 03/02/2018 Status: F Source: [place] 11:41 AM [facility] REPOSITORY TYPE CODE TESTS RESULT OUT OF [...] Performed By: #### L500.4050, L500.4100, L501.9520 #### [facility] [address] [place], [address] THYROID STIM HORMONE Collected: 03/02/2018 Status: F Source: [place] (TSH) 11:41 AM [facility] REPOSITORY TYPE CODE TESTS RESULT OUT OF RANGE REFERENCE UNITS LAB L501.9520 0.358-3.74 uIU/mL Normal TSH 1.68 Performed By: #### L500.4050, L500.4100, L501.9520 #### [facility] [address] [place], [address] CBC W/DIFF, AUTOMATED Collected: 03/02/2018 Status: F Source: [place] 11:41 AM [facility] REPOSITORY TYPE CODE TESTS RESULT OUT OF [...] Lymph 1.96 Performed By: #### L100.0100 #### [facility] [address] [place], [address] CHEST PA AND LATERAL Observed: 05/24/2017 Status: F Source: [place] 3:29 PM [facility] RE[facility]ITORY [facility] [place] [address] Chest PA and Lateral MR#: [id number] Acct: [id number] Name: SAMMIE CARDONA Rep #: [id number] : 1975 F 41 From: Chrystal Evans MD PCP: Ashok Siu MD Status: REG CLI Study: Chest PA and Lateral Date of Exam: 05/24/17 Exam# [id number] Ordering Dr: Ashok Siu MD STUDY: X-RAY [...] Evans MD at 16:13 EST Tel Direct: [phone], Service support , CC: Ashok Siu MD Pet Sitting: Signed CBC W/DIFF, AUTOMATED Collected: 05/24/2017 Status: F Source: [place] 3:15 PM [facility] REPOSITORY TYPE CODE TESTS RESULT OUT OF [...] Lymph 1.79 Performed By: #### L100.0100 #### [facility] [address] [place], [place], [address] D-DIMER QUANTITATIVE Collected: 05/24/2017 Status: F Source: [place] (DVT/PE) 3:15 PM [facility] REPOSITORY TYPE CODE TESTS RESULT OUT OF RANGE REFERENCE UNITS LAB L300.8000 0.27-0.49 FEU/ug/m Normal D-DIMER 0.28 QUANT Result Comment: NORMAL D-Dimer level (<0.50) indicates no DVT or PE. Performed By: #### L300.8000 #### [facility] [address] [place], [address] ALLERGIES ALLERGIES DATE TYPE / CODE NAME / CODE REACTION SEVERITY SOURCE 04/04/2018 Drug No Known Unknown [facility] Allergy/4160 Allergies/F00 [facility] [address](SNOMED 1646543(RXNOR Repository CT) M) ENCOUNTERS ENCOUNTERS ADMIT/DISCHARGE ACCOUNT ADMITTING ENCOUNTER LOCATION SOURCE NUMBER CLASS 04/04/2018/ [id number] Ambulatory BMSBuilding:B [place] 9 3 MS.[facility] Repository 03/16/2018 [id number] Ambulatory [place] 5 [facility] ing:[facility] Repository 03/15/2018 [id number] Ambulatory [place] 8 [facility] ing:[place] Repository 03/15/2018/ [id number] Ambulatory BMSBuilding:B [place] 8 8 MS.[facility] Repository 03/03/2018 [id number] Ambulatory [place] 7 [facility] ing:[place] Repository 03/02/2018 [id number] Ambulatory [place] 0 [facility] ing:[place] Repository 05/24/2017 [id number] Ambulatory [place] 4 [facility] ing:[place] Repository PAYERS PAYERS ENCOUNTER GUARANTOR PAYER SUBSCRIBER SOURCE 04/04/2018 SAMMIE L Primary SAMMIE L [place] [id number] POINT Insurance:AULTCAREPol ELWOODDOB: Community [place] icy Number: [id number] [place], [place] [id number] Repository [address]Woi: 330) Date:6580-61-52MM [phone] (JQ) [address], [place] [address]CJ: 04/04/2018 Secondary NOT GIVENUNK [place] Insurance:SELF PAY [facility] Number: Effective Repository Date:2018-04-04 03/16/2018 SAMMIE L Primary SAMMIE L [place] [id number] POINT Insurance:AULTCAREPol ELWOODDOB: [facility] OF VIEW icy Number: [id number] Lake, [place] [id number] Repository [address]Jvj: (330) Date:9970-12-57AL [phone] (HP) [address], [place] [address]NY: 03/16/2018 Secondary NOT GIVENUNK [place] Insurance:SELF PAY [facility]: Effective Repository Date:2018-03-16 03/15/2018 SAMMIE L Primary SAMMIE L [place] [id number] POINT Insurance:AULTCAREPol ELWOODDOB: [place] icy Number: [id number] Lake, [place] [id number] Repository [address]Tmq: (330) Date:2481-07-06IL [phone] (HP) [address], [place] [address]FW: 03/15/2018 Secondary NOT GIVENUNK [place] Insurance:SELF PAY [facility] Number: Effective Repository Date:2018-03-15 03/15/2018 SAMMIE L Primary SAMMIE L [place] [id number] POINT Insurance:AULTCAREPol ELWOODDOB: Community [place] icy Number: [id number] [place], [place] [id number] Repository [address]Isq: (330) Date:9307-51-50TT [phone] (HP) [address], [place] [address]TA: 03/15/2018 Secondary NOT GIVENUNK [place] Insurance:SELF PAY [facility] Number: Effective Repository Date:2018-03-15 03/03/2018 SAMMIE L Primary SAMMIE L [place] [id number] POINT Insurance:AULTCAREPol ELWOODDOB: Community [place] icy Number: [id number] [place], [place] [id number] Repository [address]Qws: (330) Date:1350-88-76QD [phone] (HP) [address], [place] [address]IE: 03/03/2018 Secondary NOT GIVENUNK [place] Insurance:SELF PAY [facility] Number: Effective Repository Date:2018-03-02 03/02/2018 SAMMIE L Primary SAMMIE L [place] [id number] POINT Insurance:AULTCAREPol ELWOODDOB: Community [place] icy Number: [id number] Lake, [place] [id number] Repository [address]Jwo: (330) Date:5928-46-00EN [phone] () [address], [place] [address]EG: 03/02/2018 Secondary NOT GIVENUNK [place] Insurance:SELF PAY [facility] Number: Effective Repository Date:2018-03-02 05/24/2017 Sammie L Primary Sammie L [place] [id number] Point Insurance:AULTCAREPol ElwoodDOB: [place] icy Number: [id number], [place] [id number] Repository [address]Dif: (330) Date:4495-39-12KX [phone] () [address], [place] [address]ID: 05/24/2017 Secondary NOT GIVENUNK [place] Insurance:SELF PAY [facility] Number: Effective Repository Date:2017-05-24
== END ==
PROVIDERS: Family Provider Family Medicine; PCP Family Medicine; Referring Provider Family Medicine; Visit Provider Family Medicine
DX: R10.9 Unspecified abdominal pain (principal)
CPT/HCPCS: 74019

== ENCOUNTER → 2018-04-23 10:19 | Outpatient (CLI) | payer OTHER, SELFPAY ==
[2018-04-04 11:40] VITALS: BMI 37.2
--- NOTE | 2018-04-23 10:21 | BI_ITS ---
MAMMOGRAPHY - BILATERAL SCREENING REASON FOR EXAM: Female, 42 years old. Routine annual screening examination. PERTINENT HISTORY: Non-contributory. TECHNIQUE: Digital bilateral breast keke (3D mammographic acquisition) in the CC and MLO projections. 2-D mediolateral oblique (MLO) and craniocaudad (CC) views of both breasts were obtained. CAD: Full Field Digital Mammography with Computer Added Detection was performed. COMPARISON: None. Baseline examination. FINDINGS: Breast Composition: There are no dominant masses or suspicious calcifications. No other significant abnormalities are identified. BI/SCREENING MAMM (CAD), BILAT IMPRESSION: Negative screening mammogram. Yearly followup mammogram recommended. (A) ASSESSMENT CATEGORY: BIRADS Category 1: Negative. A letter regarding these results will be sent to the patient by the facility within 30 days. Approximately 10% of breast cancers are not detected by mammography. A normal mammogram should not delay biopsy of a clinically suspicious abnormality. [id number] Electronically Signed: Shaquille Menendez MD at 9:46 EST , Service support ,
== END ==
PROVIDERS: Family Provider Family Medicine; PCP Family Medicine; Referring Provider Family Medicine; Visit Provider Family Medicine
DX: Z12.31 Encounter for screening mammogram for malignant neoplasm of breast (principal)
CPT/HCPCS: 77063; 77067

== ENCOUNTER → 2018-10-21 | Outpatient (CLI) | payer OTHER, SELFPAY ==
[2018-04-04 11:40] VITALS: BMI 37.2
--- NOTE | 2018-10-21 10:52 | RAD_ITS ---
STUDY: X-RAY - LEFT FOOT CLINICAL: Female, 42 years old. Posterior pain TECHNIQUE: 4 view(s) of the foot. COMPARISON: None. FINDINGS: Normal talus and tarsal bones. Calcaneal spurs Normal visualized subtalar, talonavicular, calcaneocuboid, tarsal and tarsometatarsal articulations. Normal metatarsi. Normal metatarsophalangeal joint of the great toe. Normal tibial and fibular sesamoid bones. Normal interphalangeal joint of the great toe. Normal phalanges of the great toe. Normal second through fifth metatarsophalangeal joints. Normal interphalangeal joints and phalanges of the lesser toes. The soft tissue structures are unremarkable. RAD/Foot min 3 Views IMPRESSION: Calcaneal spurs, otherwise unremarkable left foot Electronically Signed: Jayesh Landaverde MD at 11:27 EDT , Service support ,
--- NOTE | 2018-10-21 11:19 | VDLE_ITS ---
Reason For Study: LLE pain RIGHT LEFT CFV is compressible, spontaneous, phasic, GSV is normal. competent and demonstrates normal CFV is compressible, spontaneous, phasic, augmentation. competent, and demonstrates normal Procedure augmentation. Exam performed in department. FV is compressible, spontaneous, phasic, The exam was diagnostic. competent and demonstrates normal A preliminary report was called and/or faxed augmentation. to Dr. Siu @ 11:45 am. POP V is compressible, spontaneous, phasic, competent and demonstrates normal augmentation. T/P Trunk is compressible. PTV is compressible. LT PerV is compressible. Interpretation Summary Deep veins of the left lower extremity are patent and compressible segmentally. There is no evidence of left lower extremity deep vein thrombosis. Valvular competence appears intact within the proximal deep venous system on the left . The left greater saphenous vein appears patent and compressible segmentally. Ordering Physician: Ashok Siu Referring Physician: Ashok Siu Performed By: Lupe Schofield, RIKKI, RVT
== END | disposition home or self-care (01) ==
LOC: CVS 11:17
PROVIDERS: Family Provider Family Medicine; PCP Family Medicine; Referring Provider Family Medicine; Visit Provider Family Medicine
DX: M79.672 Pain in left foot (principal); M79.605 Pain in left leg
CPT/HCPCS: 73630; 93971

== ENCOUNTER → 2018-12-19 | Outpatient (CLI) | payer OTHER, SELFPAY ==
[2018-04-04 11:40] VITALS: BMI 37.2
--- NOTE | 2018-12-19 | IMM_PTH ---
PATIENT: MARCELINO CARDONA LOC: [facility] U#:[id number] AGE/SX: 42/F ROOM: RE12/19/[address]: Dr. Santana Shipman MD : 1975 BED: DIS: 12/19/2018 SPEC #: [id number] RECD: 12/21/18 15:07 STATUS: LAINEY REQ #: [id number] CARO: 12/19/18 00:[address]: Santana Shipman DEPT: IMMUNOHISTOCHEMISTRY RECD BY: Lindsay Wong ENTERED: 12/21/18 15:08 SP TYPE: IMMUNO OTHR DR: Dr. Ashok Siu MD Tissues: Skin of external ear, NOS Procedures: BCL-2 (add) CD138 (add) CD20 (add) CD3 (add) CD45 (add) CD5 (add) CD79A (add) KAPPA (add) LAMBDA (add) Pankeratin (initial) PHYSICIAN & INSTITUTION [place] [phone] SPECIMEN INFORMATION: Tissue Source: Lump right ear Clinical Info: Ulceration of external ear; ear and neck pain Specimen Number: [id number] CPT code: 53959, 80981 x9 METHODOLOGY: Deparaffinized sections of prefer/formalin-fixed tissue or PAP/DQ stained slides are incubated with monoclonal/polyclonal antibodies/oligonucleotide probes. Localization is made via biotin free immunoperoxidase method. Appropriate controls are performed and reacted as expected. Results on target cell population are indicated in the following table: RESULTS: ANTIBODY / CLONE RESULT AE1-3 (AE1/AE3/PCK26) negative CD3 (PS1) positive CD5 (SP10) positive CD20 (L26) negative CD45 (RP2/18) positive CD79a (11E3) positive CD138 (B-A38) negative Lambda (polyclonal) negative [place] (polyclonal) negative BCL-2 (bcl-2/100/D5) negative These tests were developed and their performance characteristics determined by [facility]. They may not have been cleared or approved by the U.S. Food and Drug Administration. The FDA has determined that such clearance or approval is not necessary. INTERPRETATION: Right ear, biopsy: Polytypic (benign) lymphoplasmacytic population. AM:serge 12/22/18
--- NOTE | 2018-12-19 17:45 | MASS_PTH ---
PATIENT: MARCELINO CARDONA LOC: [facility] U#:[id number] AGE/SX: 42/F ROOM: RE12/19/[address]: Dr. Santana Shipman MD : [id number] BED: DIS: 12/19/2018 SPEC #: [id number] RECD: 12/19/18 19:57 STATUS: LAINEY RETelma #: [id number] CARO: 12/19/18 17:[address]: Santana Shipman DEPT: SURGICAL PATHOLOGY RECD BY: Lindsay Wong ENTERED: 12/20/18 14:56 SP TYPE: Mass OTHR DR: Dr. Ashok Siu MD Tissues: Skin of external ear, NOS Procedures: Special Stain Group I Surgery Specimen Level IV GMS Stain (control) HEADER OPERATION: Biopsy PRE-OP DIAGNOSIS: Ulceration of external ear; ear and neck pain; rule out autoimmune process TISSUE SUBMITTED: Lump right ear MICROSCOPIC DIAGNOSIS Right ear ulcer, biopsy: Focal ulceration with associated acute and chronic inflammation. Moderate chronic dermatitis. No evidence of malignancy. Negative for fungal organisms. See microscopic description and comment. AM:serge 12/21/18 COMMENT GMS stain with matched control supports the above diagnosis. 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 Case has been reviewed in consultation with Dr. Tran who concurs with the above diagnosis. IDC:[email or web address] MICROSCOPIC DESCRIPTION Slides are reviewed. Sections show focal superficial ulceration. The mid and deep dermis shows a lymphoplasmacytic infiltrate that is cuffing blood vessels. An unremarkable fragment of cartilage and skeletal muscular tissue is present. GROSS DESCRIPTION Received is one container labeled with the patient's name and not further designated. The specimen consists of two pieces of pablo-pink soft tissue that in aggregate measure 1 x 0.5 x 0.3 cm. The entire specimen is submitted in one cassette. / YULI:serge 12/20/18 TC:2 CPT: 08462, 92645 ADDENDUM ADDENDUM ADDENDUM ADDENDUM ADDENDUM ADDENDUM ADDENDUM ADDENDUM ADDENDUM ADDENDUM 02/09/2019 08:43 ADDENDUM 02/09/2019 08:43 ADDENDUM 02/09/2019 08:43 ADDENDUM 02/09/2019 08:43 ADDENDUM 02/09/2019 08:43 This addendum is added to incorporate an outside pathology consultation report. The case was examined at [facility] (#[id number]) and the following diagnosis was rendered. Skin, right ear, biopsy: Ulceration with chronic inflammation. Please see complete above mentioned consultation report in EMR
== END | disposition home or self-care (01) ==
LOC: LABSPEC 12-20 15:01
PROVIDERS: Family Provider Family Medicine; PCP Family Medicine; Referring Provider Otolaryngology; Visit Provider Otolaryngology
DX: L98.499 Non-pressure chronic ulcer of skin of other sites with unspecified severity (principal); L30.9 Dermatitis, unspecified
CPT/HCPCS: 88305; 88312; 88341; 88342

== ENCOUNTER → 2018-12-29 | Outpatient (CLI) | payer OTHER, SELFPAY ==
[2018-12-28 15:19] VITALS: BMI 37.2
--- NOTE | 2018-12-29 10:29 | RAD_ITS ---
STUDY: X-RAY CHEST REASON FOR EXAM: Female, 43 years old. Vasculitis TECHNIQUE: PA and lateral views of the chest COMPARISON: X-ray chest May 24, 2017 FINDINGS: The lungs are clear. There are no pleural effusions. There is no pneumothorax. The heart is normal in size. The visualized osseous structures are within normal limits. RAD/Chest PA and Lateral IMPRESSION: No acute thoracic pathology. Electronically Signed: Lee Juares, at 17:09 EDT Tel , Service support ,
[2018-12-29 12:40] LABS: Absolute Lymphocyte Count 1.19 X10^3/uL (0.83-4.51); Absolute Neutrophil Count 3.8 X10^3/uL (2.0-7.7); Basophil# 0.06 X10^3/uL; Basophil% 1.1 % (0-1); Eosinophil# 0.09 X10^3/uL; Eosinophils% 1.6 % (0-5); Erythrocyte Sedimentation Rate 5 mm/hr (0-20); Hemoglobin 14.4 g/dL (12.0-15.0); Lymphocyte # 1.19 X10^3/ul (4.0); Lymphocyte % 21.6 % (19-41); Mean Corp Hgb Conc 33.5 g/dL (32-36); Mean Corpuscular Hgb 30.6 pg (27.0-32.0); Mean Corpuscular Volume 91.3 fL (81-99); Mean Platelet Vol. 10.3 fl (6.2-12.0); Monocyte# 0.31 X10^3/uL; Monocyte% 5.6 % (0-10); NRBC Flagged by Analyzer 0 % (0-5); Neutrophil # 3.84 X10^3/uL (2.7-7.7); Neutrophil % 69.9 % (47-70); Platelet Count 266 K/mm3 (150-450); RBC Distribution Width CV 12.7 % (11.6-14.6); RBC Distribution Width SD 41.6 fl (35.1-43.9); Red Blood Count 4.71 M/mm3 (4.2-5.4); White Blood Count 5.5 K/mm3 (4.4-11.0)
[2018-12-29 12:41] LABS: Rheumatoid Factor < 10.0 IU/mL (<15)
[2018-12-30 16:07] LABS: Cytoplasmic Ab (C-ANCA) <1:20 titer (Neg:<1:20)
[2018-12-31 12:07] LABS: SJOGREN'S Anti-SS-A test < 0.2 AI (0.0-0.9); SJOGREN'S Anti-SS-B test < 0.2 AI (0.0-0.9)
[2019-01-02 13:49] LABS: Anti-Nuclear Antibody Test Negative (.)
[2019-01-02 13:51] LABS: Angiotensin Convert Enzyme 17 U/L (14-82); Perinuclear Ab (P-ANCA) <1:20 titer (Neg:<1:20)
== END | disposition home or self-care (01) ==
LOC: MTLAB 10:27
PROVIDERS: Family Provider Family Medicine; PCP Family Medicine; Referring Provider Otolaryngology; Visit Provider Otolaryngology
DX: I77.6 Arteritis, unspecified (principal)
CPT/HCPCS: 36415; 71046; 82164; 85025; 85652; 86038; 86235; 86256; 86431

== ENCOUNTER → 2019-01-02 | Outpatient (CLI) | payer OTHER, SELFPAY ==
[2019-01-02 09:34] VITALS: BMI 37.2
[2019-01-02 12:55] LABS: White Blood Cells 0 SEEN /hpf (0-5)
[2019-01-02 13:48] LABS: Color, Urine Yellow (Yellow); Glucose, Dipstick Normal (Normal); Ketone-Dipstick Negative (Negative); Leukocyte Esterase-Dipstick Negative /ul (Negative); Nitrite-Dipstick Negative (Negative); Occult Blood-Urine 50 /ul (Negative); Protein-Dipstick Negative (Negative); Specific Gravity, Urine 1.025 (1.002-1.030); Urine Bilirubin Dipstick Negative (Negative); Urine Clarity Clear (Clear); Urine Urobilinogen Normal (Normal)
[2019-01-02 14:06] LABS: Bacteria RARE /hpf (None Seen); Hyaline Cast 0-5 SEEN /lpf (0-5); Mucous, Urine 2+ /hpf (<or=2+); Red Blood Cells-Urine 0-5 SEEN /hpf (0-5); Squamous Epithelial Cells - UA 0-5 SEEN /hpf (5-10)
== END | disposition home or self-care (01) ==
PROVIDERS: Family Provider Family Medicine; PCP Family Medicine; Referring Provider Otolaryngology; Visit Provider Otolaryngology
DX: I77.6 Arteritis, unspecified (principal)
CPT/HCPCS: 81001

== ENCOUNTER → 2019-01-03 | Outpatient (CLI) | payer OTHER, SELFPAY ==
[2019-01-02 09:34] VITALS: BMI 37.2
--- NOTE | 2019-01-03 15:54 | US_ITS ---
STUDY: ULTRASOUND OF THE FEMALE PELVIS - COMPLETE REASON FOR EXAM: Female, 43 years old. Pelvic pain LMP: 12/03/2018 TECHNIQUE: Transabdominal and Transvaginal TECHNICAL QUALITY: Adequate. COMPARISON: None. FINDINGS: The uterus is anteverted and is in a midline position. The uterus measures 8.2 x 4.6 x 3.9 cm. There is a Nabothian cyst of the cervix. The endometrium measures 5.3 mm in thickness, and is hyperechoic. There is no demonstrated endometrial mass. There is no demonstrated myometrial mass. I.U.D. - The patient does not have an I.U.D. The right ovary is visualized. The right ovary measures 2.7 x 2.0 x 1.4 cm. There is no right ovarian cyst or ovarian mass. There is no visualized right adnexal mass or complex lesion. There is normal arterial and normal venous vascularity. The left ovary is visualized. The left ovary measures 2.9 x 2.6 x 2.2 cm. There is no left ovarian cyst or ovarian mass. There is no visualized left adnexal mass or complex lesion. There is normal arterial and normal venous vascularity. There is no fluid in the cul-de-sac. The pre void volume of the bladder was 546 ml. Polycystic ovary disease: No. US/Pelvic (Non ) IMPRESSION: Normal female pelvis. Electronically Signed: Lamont Ram MD at 15:53 EDT , Service support ,
--- NOTE | 2019-01-03 15:54 | US_ITS ---
STUDY: ULTRASOUND OF THE FEMALE PELVIS - COMPLETE REASON FOR EXAM: Female, 43 years old. Pelvic pain LMP: 12/03/2018 TECHNIQUE: Transabdominal and Transvaginal TECHNICAL QUALITY: Adequate. COMPARISON: None. FINDINGS: The uterus is anteverted and is in a midline position. The uterus measures 8.2 x 4.6 x 3.9 cm. There is a Nabothian cyst of the cervix. The endometrium measures 5.3 mm in thickness, and is hyperechoic. There is no demonstrated endometrial mass. There is no demonstrated myometrial mass. I.U.D. - The patient does not have an I.U.D. The right ovary is visualized. The right ovary measures 2.7 x 2.0 x 1.4 cm. There is no right ovarian cyst or ovarian mass. There is no visualized right adnexal mass or complex lesion. There is normal arterial and normal venous vascularity. The left ovary is visualized. The left ovary measures 2.9 x 2.6 x 2.2 cm. There is no left ovarian cyst or ovarian mass. There is no visualized left adnexal mass or complex lesion. There is normal arterial and normal venous vascularity. There is no fluid in the cul-de-sac. The pre void volume of the bladder was 546 ml. Polycystic ovary disease: No. US/Transvaginal Non- IMPRESSION: Normal female pelvis. Electronically Signed: Lamont Ram MD at 15:53 EDT , Service support ,
== END | disposition home or self-care (01) ==
LOC: US 15:53
PROVIDERS: Family Provider Family Medicine; PCP Family Medicine; Referring Provider Nurse Practitioner Women's Health; Visit Provider Nurse Practitioner Women's Health
DX: R10.2 Pelvic and perineal pain (principal)
CPT/HCPCS: 76830; 76856; 93976

== ENCOUNTER → 2019-01-10 | Outpatient (CLI) | payer OTHER, SELFPAY ==
[2019-01-02 09:34] VITALS: BMI 37.2
[2019-01-10 17:28] LABS: Absolute Lymphocyte Count 1.29 X10^3/uL (0.83-4.51); Absolute Neutrophil Count 3.9 X10^3/uL (2.0-7.7); Basophil# 0.08 X10^3/uL; Basophil% 1.4 % (0-1); Eosinophil# 0.08 X10^3/uL; Eosinophils% 1.4 % (0-5); Hematocrit 41.2 % (37-47); Hemoglobin 13.5 g/dL (12.0-15.0); Lymphocyte # 1.29 X10^3/ul (4.0); Lymphocyte % 22.8 % (19-41); Mean Corp Hgb Conc 32.8 g/dL (32-36); Mean Corpuscular Hgb 29.5 pg (27.0-32.0); Mean Corpuscular Volume 90.2 fL (81-99); Mean Platelet Vol. 10.4 fl (6.2-12.0); Monocyte# 0.27 X10^3/uL; Monocyte% 4.8 % (0-10); NRBC Flagged by Analyzer 0 % (0-5); Neutrophil # 3.93 X10^3/uL (2.7-7.7); Neutrophil % 69.2 % (47-70); Platelet Count 281 K/mm3 (150-450); RBC Distribution Width CV 12.8 % (11.6-14.6); RBC Distribution Width SD 41.9 fl (35.1-43.9); Red Blood Count 4.57 M/mm3 (4.2-5.4); White Blood Count 5.7 K/mm3 (4.4-11.0)
[2019-01-10 17:36] LABS: International Normalized Ratio 1.1; Partial Thromboplast Time 29.6 Seconds (24.1-36.2); Prothrombin Time (Protime)PT. 14.4 SECONDS (11.7-14.9)
== END | disposition home or self-care (01) ==
LOC: MFPLAB 15:39
PROVIDERS: Family Medicine; Family Provider Family Medicine; PCP Family Medicine; Referring Provider Family Medicine; Visit Provider Family Medicine
DX: T14.8XXA Other injury of unspecified body region, initial encounter (principal)
CPT/HCPCS: 36415; 85025; 85610; 85730

== ENCOUNTER → 2019-02-09 | Outpatient (CLI) | payer OTHER, SELFPAY ==
[2019-01-02 09:34] VITALS: BMI 37.2
[2019-02-09 17:03] LABS: Color, Urine Yellow (Yellow); Glucose, Dipstick Normal (Normal); Ketone-Dipstick 5 mg/dl (Negative); Leukocyte Esterase-Dipstick 25 /ul (Negative); Nitrite-Dipstick Negative (Negative); Occult Blood-Urine 25 /ul (Negative); Protein-Dipstick Negative (Negative); Urine Bilirubin Dipstick Negative (Negative); Urine Clarity Clear (Clear); Urine Urobilinogen Normal (Normal)
[2019-02-09 17:09] LABS: Bacteria RARE /hpf (None Seen); Mucous, Urine 1+ /hpf (<or=2+); Red Blood Cells-Urine 0-5 SEEN /hpf (0-5); Squamous Epithelial Cells - UA 0-5 SEEN /hpf (5-10); White Blood Cells 0-5 SEEN /hpf (0-5)
== END | disposition home or self-care (01) ==
LOC: LAB.FUTURE 15:33 → LAB 15:37
PROVIDERS: Family Provider Family Medicine; PCP Family Medicine; Referring Provider Family Medicine; Visit Provider Family Medicine
DX: R31.9 Hematuria, unspecified (principal)
CPT/HCPCS: 81001

== ENCOUNTER → 2019-03-13 11:14 | Outpatient (CLI) | payer OTHER, SELFPAY ==
[2019-01-02 09:34] VITALS: BMI 37.2
[2019-03-13 11:53] LABS: Anion Gap 3 (5-15); BUN 12 mg/dL (7-18); BUN/Creat Ratio 14.2 RATIO (10-20); Calcium,Total 8.1 mg/dL (8.5-10.1); Chloride 107 mmol/L (98-107); Cholesterol 129 mg/dL (200); Creatinine, Serum 0.85 mg/dL (0.55-1.02); EST Glomerular Filtration Rate 78 mL/min (>60); Est Glom Filt Rate - Afr Amer 95 mL/min (>60); Glucose 100 mg/dL (74-106); High Density Lipoprotein 42 mg/dL; Potassium 3.8 mmol/L (3.5-5.1); Sodium Level 138 mmol/L (136-145); Triglycerides 80 mg/dL; Very Low Density Lipoprotein 16 mg/dL (5-40)
== END ==
PROVIDERS: Family Provider Family Medicine; PCP Family Medicine; Referring Provider Family Medicine; Visit Provider Family Medicine
DX: Z00.00 Encounter for general adult medical examination without abnormal findings (principal)
CPT/HCPCS: 36415; 80048; 80061

== ENCOUNTER → 2019-04-06 13:17 | Outpatient (CLI) | payer OTHER, SELFPAY ==
[2019-04-06 10:34] VITALS: BMI 37.2
== END ==
PROVIDERS: Family Provider Family Medicine; PCP Family Medicine; Referring Provider Nurse Practitioner Women's Health; Visit Provider Nurse Practitioner Women's Health
DX: N39.0 Urinary tract infection, site not specified (principal)
CPT/HCPCS: 87086; 87088

== ENCOUNTER → 2019-04-17 13:46 | Outpatient (CLI) | payer OTHER, SELFPAY ==
[2019-04-06 10:34] VITALS: BMI 37.2
--- NOTE | 2019-04-17 13:50 | CT_ITS ---
STUDY: CT ABDOMEN AND PELVIS WITH AND WITHOUT CONTRAST REASON FOR EXAM: Female, 43 years old. LEFT FLANK PAIN, MICROHEMATURIA SINCE DECEMBER 2018 RADIATION DOSAGE (If Supplied By Facility): CTDIvol = ( 23.27 ) mGy, DLP = ( 4151.80 ) mGycm TECHNIQUE: Transaxial images were obtained from the dome of the diaphragm to the symphysis pubis without oral contrast. IV contrast was administered. Sagittal and coronal images were reconstructed. Individualized dose optimization techniques were used for this CT. COMPARISON: None. FINDINGS: The visualized lung bases are unremarkable. The visualized portions of the heart are within normal limits. Normal liver. The patient is status post cholecystectomy. Normal spleen. Normal pancreas. Normal bilateral adrenal glands. Normal right kidney. Normal left kidney. Normal visualized stomach. Normal small intestine. Normal colon. The appendix is visualized and appears normal. Normal abdominal aorta. Normal inferior vena cava. There is borderline retroperitoneal lymphadenopathy with enlarged nodes no greater than 10mm in the short axis diameter. Normal urinary bladder. Phleboliths are seen within the pelvis. Normal abdominal wall. Normal osseous structures. CT/CT Abd/Pelvis W/WO Contrast IMPRESSION: The patient is status post cholecystectomy. No acute abnormality is seen. Electronically Signed: Shaquille Menendez, at 14:42 EST , Service support ,
== END ==
PROVIDERS: Family Provider Family Medicine; PCP Family Medicine; Referring Provider Urology; Visit Provider Urology
DX: R31.29 Other microscopic hematuria (principal); R10.9 Unspecified abdominal pain
CPT/HCPCS: 74178; Q9967

== ENCOUNTER → 2019-04-24 12:46 | Outpatient (CLI) | payer OTHER, SELFPAY ==
[2019-04-06 10:34] VITALS: BMI 37.2
--- NOTE | 2019-04-24 12:56 | BI_ITS ---
MAMMOGRAPHY - BILATERAL SCREENING REASON FOR EXAM: Female, 43 years old. Routine annual screening examination. PERTINENT HISTORY: Non-contributory. TECHNIQUE: Digital bilateral breast silvio (3D mammographic acquisition) in the CC and MLO projections. 2-D mediolateral oblique (MLO) and craniocaudad (CC) views of both breasts were obtained. CAD: Full Field Digital Mammography with Computer Added Detection was performed. COMPARISON: Comparison is made with prior examination dated April 23, 2018. FINDINGS: Breast Composition: There are scattered areas of fibroglandular density. There are no dominant masses or suspicious calcifications. Stable benign-appearing bilateral axillary lymph nodes. No other significant abnormalities are identified. There has been no significant change since the prior study. BI/SCREEN MAMM (CAD) W/SILVIO BILAT IMPRESSION: Stable bilateral screening mammogram. Yearly follow-up mammogram recommended. (A) ASSESSMENT CATEGORY: BIRADS Category 2: Benign. A letter regarding these results will be sent to the patient by the facility within 30 days. Approximately 10% of breast cancers are not detected by mammography. A normal mammogram should not delay biopsy of a clinically suspicious abnormality. [id number] Electronically Signed: Shaquille Menendez, at 14:00 EST , Service support ,
== END ==
PROVIDERS: Family Provider Family Medicine; PCP Family Medicine; Referring Provider Family Medicine; Visit Provider Family Medicine
DX: Z12.31 Encounter for screening mammogram for malignant neoplasm of breast (principal)
CPT/HCPCS: 77063; 77067

== ENCOUNTER → 2019-05-24 16:16 | Outpatient (CLI) | payer OTHER, MEDICAID, SELFPAY ==
[2019-04-06 10:34] VITALS: BMI 37.2
[2019-05-24 17:30] LABS: Absolute Lymphocyte Count 1.88 X10^3/uL (0.83-4.51); Absolute Neutrophil Count 3.4 X10^3/uL (2.0-7.7); Basophil# 0.08 X10^3/uL; Basophil% 1.3 % (0-1); Eosinophil# 0.23 X10^3/uL; Eosinophils% 3.8 % (0-5); Hematocrit 39.2 % (37-47); Hemoglobin 12.7 g/dL (12.0-15.0); Lymphocyte # 1.88 X10^3/ul (4.0); Lymphocyte % 31.3 % (19-41); Mean Corp Hgb Conc 32.4 g/dL (32-36); Mean Corpuscular Hgb 29.4 pg (27.0-32.0); Mean Corpuscular Volume 90.7 fL (81-99); Mean Platelet Vol. 10.4 fl (6.2-12.0); Monocyte# 0.39 X10^3/uL; Monocyte% 6.5 % (0-10); NRBC Flagged by Analyzer 0 % (0-5); Neutrophil # 3.41 X10^3/uL (2.7-7.7); Neutrophil % 56.9 % (47-70); Platelet Count 265 K/mm3 (150-450); RBC Distribution Width CV 12.9 % (11.6-14.6); RBC Distribution Width SD 42.4 fl (35.1-43.9); Red Blood Count 4.32 M/mm3 (4.2-5.4)
== END ==
PROVIDERS: PCP Family Medicine; Referring Provider Family Medicine; Visit Provider Family Medicine
DX: T14.8XXA Other injury of unspecified body region, initial encounter (principal)
CPT/HCPCS: 36415; 85025

== ENCOUNTER → 2019-10-11 | Outpatient (CLI) | payer MEDICAID, SELFPAY ==
[2019-10-11 11:17] VITALS: BMI 34.0
[2019-10-11 11:43] LABS: Absolute Lymphocyte Count 1.78 X10^3/uL (0.83-4.51); Absolute Neutrophil Count 3.8 X10^3/uL (2.0-7.7); Basophil# 0.08 X10^3/uL; Basophil% 1.3 % (0-1); Eosinophil# 0.15 X10^3/uL; Eosinophils% 2.4 % (0-5); Hematocrit 39.7 % (37-47); Lymphocyte # 1.78 X10^3/ul (4.0); Lymphocyte % 28.9 % (19-41); Mean Corp Hgb Conc 32.7 g/dL (32-36); Mean Corpuscular Volume 91.5 fL (81-99); Mean Platelet Vol. 9.5 fl (6.2-12.0); Monocyte# 0.38 X10^3/uL; Monocyte% 6.2 % (0-10); NRBC Flagged by Analyzer 0 % (0-5); Neutrophil # 3.75 X10^3/uL (2.7-7.7); Neutrophil % 60.9 % (47-70); Platelet Count 297 K/mm3 (150-450); RBC Distribution Width CV 12.7 % (11.6-14.6); RBC Distribution Width SD 41.4 fl (35.1-43.9); Red Blood Count 4.34 M/mm3 (4.2-5.4); White Blood Count 6.2 K/mm3 (4.4-11.0)
[2019-10-11 14:48] LABS: Thyroid Stim Hormone (TSH) 2.51 uIU/mL (0.358-3.74)
== END | disposition home or self-care (01) ==
LOC: PAVLAB 11:32
PROVIDERS: PCP Family Medicine; Referring Provider Nurse Practitioner Women's Health; Visit Provider Nurse Practitioner Women's Health
DX: N92.0 Excessive and frequent menstruation with regular cycle (principal)
CPT/HCPCS: 36415; 84443; 85025

== ENCOUNTER → 2019-11-22 18:22 | Outpatient (CLI) | payer MEDICAID, SELFPAY ==
[2019-11-22 09:51] VITALS: BMI 37.2
--- NOTE | 2019-11-22 18:25 | US_ITS ---
STUDY: ULTRASOUND OF THE FEMALE PELVIS - COMPLETE REASON FOR EXAM: Female, 43 years old. PELVIC PAIN LMP: Unknown. TECHNIQUE: Transabdominal and Transvaginal TECHNICAL QUALITY: Adequate. COMPARISON: Previous study of 01/03/2019 FINDINGS: The uterus is anteverted and is in a midline position. The uterus measures 9.4 x 5.2 x 3.9 cm. There are cervical nabothian cysts. The endometrium measures 6 mm in thickness, and is hyperechoic. There is no demonstrated endometrial mass. There is no demonstrated myometrial mass. Uterus is heterogeneous in echogenicity. I.U.D. - The patient does not have an I.U.D. The right ovary is visualized. The right ovary measures 2.6 x 1.9 x 1.2 cm. There is a 1.2 x 1.1 x 0.9 cm right ovarian cyst. There is no visualized right adnexal mass or complex lesion. There is normal arterial and normal venous vascularity. The left ovary is visualized. The left ovary measures 2.2 x 1.3 x 1.1 cm. There is no left ovarian cyst or ovarian mass. There is no visualized left adnexal mass or complex lesion. There is normal arterial and normal venous vascularity. There is no fluid in the cul-de-sac. The pre void volume of the bladder was 201 ml. US/Pelvic (Non ) IMPRESSION: Cervical nabothian cysts. 1.2 x 1.1 x 0.9 cm right ovarian cyst. Electronically Signed: Arias Acevedo MD at 19:12 EDT , Service support ,
--- NOTE | 2019-11-22 18:38 | US_ITS ---
STUDY: ULTRASOUND OF THE FEMALE PELVIS - COMPLETE REASON FOR EXAM: Female, 43 years old. PELVIC PAIN LMP: Unknown. TECHNIQUE: Transabdominal and Transvaginal TECHNICAL QUALITY: Adequate. COMPARISON: Previous study of 01/03/2019 FINDINGS: The uterus is anteverted and is in a midline position. The uterus measures 9.4 x 5.2 x 3.9 cm. There are cervical nabothian cysts. The endometrium measures 6 mm in thickness, and is hyperechoic. There is no demonstrated endometrial mass. There is no demonstrated myometrial mass. Uterus is heterogeneous in echogenicity. I.U.D. - The patient does not have an I.U.D. The right ovary is visualized. The right ovary measures 2.6 x 1.9 x 1.2 cm. There is a 1.2 x 1.1 x 0.9 cm right ovarian cyst. There is no visualized right adnexal mass or complex lesion. There is normal arterial and normal venous vascularity. The left ovary is visualized. The left ovary measures 2.2 x 1.3 x 1.1 cm. There is no left ovarian cyst or ovarian mass. There is no visualized left adnexal mass or complex lesion. There is normal arterial and normal venous vascularity. There is no fluid in the cul-de-sac. The pre void volume of the bladder was 201 ml. US/Transvaginal Non- IMPRESSION: Cervical nabothian cysts. 1.2 x 1.1 x 0.9 cm right ovarian cyst. Electronically Signed: Arias Acevedo MD at 19:12 EDT , Service support ,
== END ==
PROVIDERS: PCP Family Medicine; Referring Provider Obstetrics & Gynecology; Visit Provider Obstetrics & Gynecology
DX: R10.2 Pelvic and perineal pain (principal)
CPT/HCPCS: 76830; 76856; 87086; 87088

== ENCOUNTER 2019-11-28 08:23 | Day surgery (SDC) | payer MEDICAID, SELFPAY ==
[2019-11-15 10:00] VITALS: BMI 37.2
[2019-11-22 09:51] VITALS: BMI 37.2
[2019-11-28 08:44] VITALS: BP 138/92; PULSE 84; RESP 16; TEMP 37.2; O2SAT 99; BMI 33.5
[2019-11-28] MEDS: Lactated Ringers 1,000 ML 100 ML IV ×2 (08:56→11:05)
[2019-11-28 08:57] LABS: Internal QC Validated? YES +Cl - CLEAR BKGD; Pregnancy, Urine Negative Negative
[2019-11-28 09:03] LABS: Hematocrit 38.1 % (37-47); Hemoglobin 12.9 g/dL (12.0-15.0); Mean Corp Hgb Conc 33.9 g/dL (32-36); Mean Corpuscular Hgb 30.5 pg (27.0-32.0); Mean Corpuscular Volume 90.1 fL (81-99); Mean Platelet Vol. 9.4 fl (6.2-12.0); Platelet Count 276 K/mm3 (150-450); RBC Distribution Width CV 12.6 % (11.6-14.6); RBC Distribution Width SD 40.9 fl (35.1-43.9); Red Blood Count 4.23 M/mm3 (4.2-5.4); White Blood Count 6.3 K/mm3 (4.4-11.0)
--- NOTE | 2019-11-28 09:04 | PCM.HPOB.BLA ---
- Problem List (1) Pelvic pain Status: Acute (2) Abnormal uterine bleeding (AUB) Status: Acute History and Physical Date of Admission: 11/28/19 Intake Vital Signs 11/15/19 Height 5 ft 8 in 11/15/19 Weight: 221 lb 11/15/19 BMI 33.5 11/15/19 BP 122/68 H Intake Visit Reasons: Surgical consult per Resizer Operator Required: No Is patient in pain?: Yes (cramping- took aleve) Pain scale (1-10): 3 Allergies ofloxacin Allergy (Verified 11/15/19 09:56) Unknown Medications bupropion HCl 300 mg 24 hr tablet, extended release 300 mg PO QAM 01/02/19 [History Confirmed 11/10/19] norgestimate 0.25 mg-ethinyl estradiol 35 mcg tablet 1 tab PO QDAY #84 tab 10/11/19 [Rx Confirmed 11/10/19] Is last menstrual period known: Yes Last Menstral Period: 11/15/19 Post menopausal: No Patient : No : No [facility] Medical History Depression (Acute) Acid reflux (Acute) Vitamin D deficiency (Acute) Chronic diarrhea (Chronic) History of anxiety (Acute) Abnormal bruising (Acute) Abnormal weight loss (Acute) Anemia (Acute) Asthma (Acute) Back pain (Acute) Difficulty balancing (Acute) Fatigue (Acute) Migraines (Acute) Surgical History History of carpal tunnel surgery (Acute) History of tonsillectomy (Acute) Hx of cholecystectomy (Acute) Family History Unknown Diabetes Grandmother Heart disease Colon cancer Social History (Updated 11/15/19 @ 10:[address] Marah Sweet MD) adopted: No household members: family number of children: 3 current occupational status: unemployed Smoking Status: Never smoker alcohol intake: current details: social substance use type: does not use caffeine: Yes what type of physical activity do you participate in: none seatbelt use: always do you feel safe at home: Yes additional social history: Single- [employer] HPI Surgical consult per : Details: MARCELINO CARDONA is a 43 year old who presents for surgery consult. She has had worsening bleeding for the past few months. She has now tried 4 different OCPs without improvement in her bleeding. She is currently on iron supplementation because her bleeding has been so heavy that she becomes anemic. She is here today to discuss definitive management of her bleeding. Female Reproductive History Last Menstral Period: 11/15/19 Cycle Length: 21-35 Bleeding Duration: 7 Questions: Metorrhagia: No Menopausal Symptoms: No hot flashes Pregancy History 3 Elective abortions Hx Para 3 Spontaneous abortions Hx # Term Pregnancies Ectopic pregnancies Hx # Pregnancies Multiple births # of living children Past Pregnancies Del. Date Name GA/Weeks Outcome Route Bth Weight Gen Labor Lgth Anesthesia Del Locatn Provider FOB Unknown 1997 Jovon live - full term Unknown 2005 Baldomero live - full term Unknown 2006 Figueroa live - full term ROS Const Constitutional: Reports fatigue : Reports heavy periods and pelvic pain (with menses); denies difficulty urinating, painful urination, hot flashes, metrorrhagia, prolapse symptoms, sexual problems, urinary frequency, vaginal discharge, vaginal dryness, vaginal odor or vaginal itching Exam Const General: cooperative, healthy appearing, comfortable, well developed, well groomed Neck Neck: normal visual inspection, full ROM Resp Effort & Inspection: normal respiratory effort, able to speak in complete sentences, symmetric chest movement Cardio Rate: regular rate Skin General: no rashes or lesions noted, elasticity normal, turgor normal Lesions: no lesions Rashes: no rashes Neuro General: alert, awake, oriented x3 Cranial Nerves: CN's II-XI intact bilaterally, PERRL, EOM intact bilaterally Cognition: normal cognition Speech: speech normal Gait: normal gait Extrem General: normal to inspection, full ROM, no pedal edema Psych Appearance: grossly normal Mental Status: mental status grossly normal Mood: congruent mood Affect: normal affect Speech and Movement: speech and movement normal Attitude: cooperative Thought Process: normal Thought Content: normal Assessment & Plan Problems 1. Menorrhagia with regular cycle N92.0 Failed OCP X 3, normal US. Surg consult Dr. Kee Devlin Presents to discuss managament of AUB. Has failed 3 different OCPs. Had US showing thin lining and uterus measuring 8.2x4.6x3.9cm. Discussed management options including IUD insertion (not interested as she has failed multiple hormonal therapies), endometrial ablation, and hysterectomy. Patient desires endometrial ablation. I have discussed with the patient the risks, benefits, and alternatives of the procedure which include but are not limited to risks of anesthesia, bleeding, infection, possible damage to bowel, bladder, or surrounding vasculature which could lead to additional surgery to evaluate any complications. Will obtain sampling at the time of surgery. Aware that if this were to show hyperplasia or cancer, she could require a hysterectomy for treatment. Discussed that after ablation, we will not be able to obtain reliable sampling of the endometrium which could result in delay in diagnosis of hyperplasia or cancer if this develops in the future. Discussed risk of failure and that if she were to begin having heavy bleeding again, the next step in management would be a hysterectomy. Patient agrees to procedure and wishes to proceed. ACOG/uptodate references given for additional information regarding procedure. Patient also having pelvic pain intermittently for the last few weeks. US done and negative. Recommended diagnostic laparoscopy at the time of surgery with possible fulguration of endometriosis. Risks and benefits of laparoscopy reviewed. Coding Level of Care Code Off vis,est,level 3 Diagnoses Menorrhagia with regular cycle N92.0 UPDATE- I have seen the patient and performed any clinically relevant updates to the history and physical exam. Marah Sweet M.D.
--- NOTE | 2019-11-28 09:37 | DCINST_ITS ---
Discharge Diet: No Restrictions, - - Increase fluid intake for 48 hours. Discharge Activity: Return to Normal Activity, May Drive - when you are no longer taking narcotic pain medications., May Shower, May Take a Tub Bath - in 7 days., - - Ambulate often the next week after surgery. May resume sexual activity in: 2 weeks Weight Bearing Status: Weight bearing as tolerated Additional Activity Instructions:: Nothing in the vagina for the next 5 days. Call your doctor if your incision/area has: Continuous Slow Oozing, Sudden Increased Bleeding, Increased Pain/ Swelling, Increased Redness, Foul Smelling Discharge, Swelling at the incision site Call your doctor if you observe: Fever of 101 or Higher Allergies/Adverse Reactions: Allergies ofloxacin Allergy (Verified 11/22/19 09:50) Unknown Medications to take at Discharge bupropion HCl 300 mg 24 hr tablet, extended release 300 mg PO QAM 01/02/19 norgestimate 0.25 mg-ethinyl estradiol 35 mcg tablet 1 tab PO QDAY #84 tab 10/11/19 metronidazole 500 mg tablet 500 mg PO BID #14 tab 11/27/19 Naproxen [Naprosyn] 250 - 500 mg PO Q8H PRN PRN #30 tab 11/28/19 Oxycodone HCl/Acetaminophen [Percocet 5-325] 1 - 2 tab PO Q6H PRN PRN 7 Days #8 tab 11/28/19 The following prescriptions were given: Naproxen [Naprosyn] 250 - 500 mg PO Q8H PRN PRN #30 tab PRN Reason: MILD PAIN Transmission Status: Received by [facility] Oxycodone HCl/Acetaminophen [Percocet 5-325] 1 - 2 tab PO Q6H PRN PRN 7 Days #8 tab PRN Reason: Pain Transmission Status: Received by [facility] Orders to be completed after discharge: Type & Screen - PAT ONLY Time Frame: 11/28/19, Facility: [facility], Location: Laboratory Primary Care Physician: Ashok Siu MD [Primary Care Provider] - Test Results: Test results from this visit will be discussed in further detail at your follow- up appointment, if applicable. Please Follow Up With: Marah Sweet MD When: 2 weeks
--- NOTE | 2019-11-28 09:42 | OP.PCM_ITS ---
Problem List (1) Pelvic pain Status: Acute (2) Abnormal uterine bleeding (AUB) Status: Acute Report of Operation Date of Procedure: 11/28/19 Pre-Operative Diagnosis: Abnormal uterine bleeding, pelvic pain Post-Operative Diagnosis: Same, No evidence of endometriosis Surgery/Procedure Performed:: Hysteroscopy, Dilation and curettage, diagnostic laparoscopy Description of Surgical Findings:: No evidence of endometriosis. Normal uterus tubes and ovaries. Normal ovarian fossa bilaterally. Anterior and posterior cul-de-sac appear normal. Normal- appearing paracolic gutter. Normal-appearing liver. Uterine cavity appears normal with proliferative appearing endometrium. Both tubal ostia easily visualized. No intracavitary lesions. Type of Anesthesia:: General Special Medications: none Specimen's removed: Endometrial curettings Drains: None Estimated Blood Loss (mL): 10 cc Fluids Replaced: 1 L Description of Procedure: The patient was taken to the operating room where general anesthesia was obtained without difficulty. She was prepped and draped in the dorsal lithotomy position with yellowfin stirrups. Weighted speculum was placed on posterior aspect of the vagina and using a right angle retractor the anterior lip of the cervix was visualized and grasped with a single-tooth tenaculum. Kroner uterine manipulator was placed. Attention attention was then directed to the abdominal cavity. The umbilicus was injected with 10 cc of 0.25% Marcaine. The area umbilicus was elevated using towel clips and a 5 mm incision was made at the at the base. A varies needle was then inserted. Intra-abdominal positioning was confirmed using the water drop test. Opening pressure was found to be 3. The abdomen was insufflated to 12 mmHg. A 5 mm port was then inserted under direct visualization. A survey was then performed of the abdomen. The liver was noted to be normal without adhesions. The pericolic gutter was inspected and no evidence of endometriosis or inflammation was noted. The anterior cul-de-sac was inspected and no evidence of endometriosis or lesions were noted on the bladder. The uterus tubes and ovaries were noted to be normal. The posterior cul-de-sac was inspected and no lesions were noted. The ovarian fossa was inspected bilaterally and no evidence of endometriosis was noted. No evidence of scar tissue was noted anywhere in the abdominal cavity. The laparoscopic portion of the procedure was deemed complete. All instruments were removed from the abdominal cavity. The incision was closed in a subcuticular fashion using 4-0 Monocryl suture and Steri-Strips were placed over the incision. Attention was then directed to the vagina. The kroner manipulator was removed. A weighted speculum was again placed placed in the posterior aspect of the vagina and the anterior lip of the cervix was grasped with a single-tooth tenaculum. The uterus sounded to 9 cm. The cervical length was found to be 3 cm. The cervix was then sequentially dilated in order to accommodate the 6 mm Glory device. A string scope was then introduced into the uterine cavity. Both ostia were easily visualized. No intracavitary lesions were noted. The endometrium was noted to be proliferative in appearance. The hysteroscope was then removed. A sharp curettage was then performed and the specimen was sent as endometrial curettings. The Glory device was then set to the correct cavity length and introduced into the uterine cavity. The safety tests were passed x2. The device was then activated. A full 120 second burn was performed. The Glory device was then removed from the uterine cavity. The single-tooth tenaculum was removed and the tenaculum sites were noted to be hemostatic. The procedure was deemed complete. The patient was awakened from anesthesia and taken to the recovery room in stable condition. - Complications None apparent - Admit VTE Documentation VTE Present on Admission: No Multi Select Codes - Urinary/Genital Urinary/Genital CPT Codes: 10075 Glory/Novasure, 56570 Hysteroscopy,EMC, Polypectomy, Other Procedure See Report - 21197 - diagnostic laparoscopy- PLEASE ADD THIS TO LIST
--- NOTE | 2019-11-28 10:05 | EMB_PTH ---
PATIENT: MARCELINO CARDONA LOC: [facility] [place] U#:[id number] AGE/SX: 43/F ROOM: RE11/28/[address]: Dr. Marah Sweet MD : 1975 BED: DIS: 11/28/2019 SPEC #: [id number] RECD: 11/28/19 11:33 STATUS: LAINEY GREER #: [id number] CARO: 11/28/19 10:[address]: Marah Sweet DEPT: SURGICAL PATHOLOGY RECD BY: Jeronimo Funes ENTERED: 11/28/19 11:51 SP TYPE: ENDOM BX/C ASIA DR: Dr. Ashok Siu MD Tissues: Endometrium, NOS Procedures: Surgery Specimen Level IV HEADER OPERATION: Hysteroscopy, D & C, Glory PRE-OP DIAGNOSIS: Abnormal uterine bleeding, pelvic pain TISSUE SUBMITTED: Endometrial curettings MICROSCOPIC DIAGNOSIS Endometrium, curettings: Transition endometrium. Fragments of benign superficial endocervix with squamous metaplasia and chronic inflammation. Rare strips of benign squamous mucosa. AM:serge 11/29/19 MICROSCOPIC DESCRIPTION Slides are reviewed. GROSS DESCRIPTION Received in fixative is one container labeled with the patient's name and designated endometrial curettings. The specimen consists of multiple fragments of hemorrhagic soft tissue that in aggregate measure 5 x 3 x 0.3 cm. The entire specimen is submitted in two cassettes. / YULI:serge 11/28/19 TC:5 CPT: 37818
[2019-11-28] MEDS: Bupivacaine 0.25% 30 ML Vial (10:12)
[2019-11-28 10:51] VITALS: BP 117/104; BP 138/92; PULSE 72; RESP 16; TEMP 36.5; O2SAT 97
[2019-11-28 11:00] VITALS: BP 111/68; BP 138/92; PULSE 63; RESP 16; O2SAT 95
[2019-11-28 11:15] VITALS: BP 106/70; BP 138/92; PULSE 71; RESP 16; O2SAT 95
[2019-11-28 11:30] VITALS: BP 115/75; BP 138/92; PULSE 77; RESP 16; TEMP 36.2; O2SAT 95
[2019-11-28] MEDS: HYDROcodone Bitartrate/Apap 5/325 Tablet PO ×2 (11:59→13:22)
[2019-11-28 13:39] VITALS: BP 119/74; BP 138/92; PULSE 65; RESP 16; TEMP 36.4; O2SAT 100
== END 2019-11-28 14:14 | disposition home or self-care (01) ==
LOC: SDC 08:24 → AC 08:25
PROVIDERS: Anesthesiology; PCP Family Medicine; Referring Provider Obstetrics & Gynecology; Visit Provider Obstetrics & Gynecology
PROC: 0U5B8ZZ Destruction of Endometrium, Via Natural or Artificial Opening Endoscopic (ICD-10-PCS; CPT 58558; principal; 2019-11-28 09:50)
PROC: (CPT 49320; 2019-11-28 09:50)
DX: N71.9 Inflammatory disease of uterus, unspecified (principal); D64.9 Anemia, unspecified; F32.9 Major depressive disorder, single episode, unspecified; F41.9 Anxiety disorder, unspecified; J45.909 Unspecified asthma, uncomplicated; Z11.59 Encounter for screening for other viral diseases; Z79.899 Other long term (current) drug therapy
CPT/HCPCS: 00952; 49320; 58558; 81025; 85027; 86850; 86900; 86901; 87635; 88305; 94799; J7120; J2405; U0003

== ENCOUNTER → 2019-12-21 | Outpatient (CLI) | payer MEDICAID, SELFPAY ==
[2019-12-21 12:56] VITALS: BMI 33.5
== END | disposition home or self-care (01) ==
LOC: LABSPEC 17:25
PROVIDERS: PCP Family Medicine; Referring Provider Obstetrics & Gynecology; Visit Provider Obstetrics & Gynecology
DX: R10.2 Pelvic and perineal pain (principal)
CPT/HCPCS: 87077; 87086; 87088; 87186

== ENCOUNTER → 2020-01-31 | Outpatient (CLI) | payer MEDICAID, SELFPAY ==
[2019-12-21 12:56] VITALS: BMI 33.5
== END | disposition home or self-care (01) ==
LOC: LABSPEC 13:38
PROVIDERS: PCP Family Medicine; Referring Provider Family Medicine; Visit Provider Family Medicine
DX: Z20.828 Contact with and (suspected) exposure to other viral communicable diseases (principal)
CPT/HCPCS: 87635; U0003

== ENCOUNTER → 2020-04-25 09:55 | Outpatient (CLI) | payer MEDICAID, SELFPAY ==
[2019-12-21 12:56] VITALS: BMI 33.5
--- NOTE | 2020-04-25 09:57 | BI_ITS ---
MAMMOGRAPHY - BILATERAL SCREENING REASON FOR EXAM: Female, 44 years old. Routine annual screening examination. PERTINENT HISTORY: Non-contributory. TECHNIQUE: Digital bilateral breast silvio (3D mammographic acquisition) in the CC and MLO projections. 2-D mediolateral oblique (MLO) and craniocaudad (CC) views of both breasts were obtained. CAD: Full Field Digital Mammography with Computer Added Detection was performed. COMPARISON: Comparison is made with prior study dated 10/23/2019 and 04/23/2018. FINDINGS: Breast Composition: There are scattered areas of fibroglandular density. There are no dominant masses or suspicious calcifications. No other significant abnormalities are identified. There has been no significant change since the prior study. BI/SCRN MAMM (CAD)W/SILVIO BILAT IMPRESSION: Stable bilateral screening mammogram. Yearly follow-up mammogram recommended. (A) ASSESSMENT CATEGORY: BIRADS Category 1: Negative. A letter regarding these results will be sent to the patient by the facility within 30 days. Approximately 10% of breast cancers are not detected by mammography. A normal mammogram should not delay biopsy of a clinically suspicious abnormality. [id number] Electronically Signed: Shaquille Menendez MD at 10:47 EST , Service support ,
== END ==
PROVIDERS: PCP Family Medicine; Referring Provider Nurse Practitioner Women's Health; Visit Provider Nurse Practitioner Women's Health
DX: Z12.31 Encounter for screening mammogram for malignant neoplasm of breast (principal)
CPT/HCPCS: 77063; 77067

== ENCOUNTER → 2020-06-03 11:22 | Outpatient (CLI) | payer MEDICAID, SELFPAY ==
[2019-12-21 12:56] VITALS: BMI 33.5
[2020-06-03 15:40] LABS: Anion Gap 6 (5-15); BUN 15 mg/dL (7-18); BUN/Creat Ratio 19.4 RATIO (10-20); Calcium,Total 8.7 mg/dL (8.5-10.1); Chloride 107 mmol/L (98-107); Creatinine, Serum 0.77 mg/dL (0.55-1.02); EST Glomerular Filtration Rate 87 mL/min (>60); Est Glom Filt Rate - Afr Amer 105 mL/min (>60); Glucose 92 mg/dL (74-106); Potassium 3.8 mmol/L (3.5-5.1); Sodium Level 140 mmol/L (136-145)
== END ==
PROVIDERS: PCP Family Medicine; Referring Provider Family Medicine; Visit Provider Family Medicine
DX: R63.1 Polydipsia (principal)
CPT/HCPCS: 36415; 80048

== ENCOUNTER → 2020-07-16 10:41 | Outpatient (CLI) | payer MEDICAID, SELFPAY ==
[2019-12-21 12:56] VITALS: BMI 33.5
--- NOTE | 2020-07-16 10:50 | RAD_ITS ---
STUDY: X-RAY - SKULL REASON FOR EXAM: Female, 44 years old. Head injury. TECHNIQUE: 4 view(s) of the skull were obtained. COMPARISON: None. FINDINGS: There is no demonstrated soft tissue swelling. Normal osseous calvarium. Normal visualized facial bones. Normal visualized paranasal sinuses. RAD/Skull min 4 Views IMPRESSION: No abnormality of the skull. Electronically Signed: José Luis Kerr MD at 12:29 EDT , Service support ,
== END ==
PROVIDERS: PCP Family Medicine; Visit Provider Family Medicine
DX: S09.90XA Unspecified injury of head, initial encounter (principal)
CPT/HCPCS: 70260

== ENCOUNTER 2020-07-23 12:30 | Outpatient (RCR) | payer MEDICAID, SELFPAY ==
[2019-12-21 12:56] VITALS: BMI 33.5
--- NOTE | 2020-06-10 13:46 | HP.PTEVAL_ITS ---
Patient's Visit Information MARCELINO CARDONA is a 44 year old F referred to Physical Therapy by Dr. Cailin Fair MD with a diagnosis of LBP and hip pain. Date of Evaluation: 06/10/20 Physical Therapist: Santana Akbar, DPT, OCS, CSCS - Visit Plan Frequency: 2x /Week Duration: 4-6 Weeks Plan: 2x/week for 4-6 weeks for. 1. rollout adn stretch B itb. 2. PPU and L/S ext progression of forces, and progress to rotationa nd flexion ROM. 3. Core strength and hip strength adn progress to HEP. 4. tENS with MH if needed to LB. Ensure appropriate body mechanics and sleeping position. - Subjective B hip and LBP for months but worse since covid in January. Was in bed for 2 weeks. Insidious onset. Sitting , stadning and lying in bed is worse. Soetimes with walking. Sitting might be worse. Evenongs worse than morning. Pain is up to 10/10 a couple weeks ago just lying in bed. Currently 2/10. Sleep is iterrupted as it can keep her up. Not working. Activities at home can be interrupted such as cleaning must be stopped. Moving things around can hurt. Hobbies: children play sports and she sits and watches. Basic ADLs are getting done. - Pain LBP Pain Intensity (Out of 10): 0 Pain Intensity Range: 0, 10 - Objective Posture is flat lordosis in L/S and kyphotic T/s. Tender to PA in lower lumbar and maximally over B GT with tight ITB B. L/S AROM et mod limited adn R SB min limited and painful, fleion max limited and painful. PPU increases LB ext with less pain. reflexes 2/3 patella and achilles. Sensation LE WNl to gross light touch. Strengt LE 4 in hips and 4+ ankles and knees. - SLR, - slump test. Tightness in ITB moderately. - Goals Goal 1:: Sleep without waking at night. Goal Time Frame: 4-6 Weeks Goal 2:: Full L/S AROM without pain Goal Time Frame: 4-6 Weeks Goal 3:: Pt feel 50% better overall and pain no wrose than 3/10 Goal Time Frame: 4-6 Weeks Goal 4:: I approp HEP to minimze future problems. Goal Time Frame: 4-6 Weeks - Rehabilitation Potential Physical Therapy Diagnosis: LBP and torchanteric bursitis Rehabilitation Potential: Good - Anticipated Interventions Patient/Client Instruction: Educate patient on: Condition, Plan of Care For the Purpose of:: To decrease pain, To increase ROM, To improve muscle performance and motor function, To increase tolerance to activity/condition/position Therapeutic Exercise to Include: Strength training, Postural training, Flexibilty training, Passive ROM, Active ROM, Dynamic Lumbar Stabilization For the Purpose of:: To decrease pain, To increase ROM, To improve muscle performance and motor function, To increase tolerance to activity/condition/position, To improve ability of physical actions for home/community/work/leisure Manual Therapy Techniques to Include: Mobilization, Passive ROM, Soft tissue mobilization For the Purpose of:: To decrease pain, To increase ROM TENS: Yes Thermo therapy (hot pack): Yes For the Purpose of:: To decrease pain Thank you for the opportunity to evaluate your patient. For Medicare and Medicare HMO plans, please review the plan of care and approve it. It will need to be FAXED BACK to us at [phone] for Medicare purposes. For Medicare only, by signing this I certify the plan of care. Please let me know if there are questions or concerns regarding this plan of care. Physician Signature: Date:____
--- NOTE | 2020-06-26 14:50 | HP.PTREVAL ---
Dr. Cailin Fair MD, It has been my pleasure to treat MARCELINO CARDONA over the last 5 visits for LBP and hip pain. Please see the progress note below for an update on the physical therapy plan of care! Subjective: Sweating and working hard. Wednesday was terrible after tryin back bend got cramps in L leg. Backwards seems to cause pain. Today has been good day. Pain 0-9/10 this week. Feels LB when doing marching. Sleeping better last couple nights and getting 10 hours. activities are normal just painful. Objective/Function: ext ROM min limited and painful, FW bend adn SB are painfree but min limited. Walking well, trasnferring well adn steps normal. Some trasnfers painful. Plan Plan: f/u two weeks after vacationa dn check back for return to doc, more therapy(NS strength and stretch FW) Goals Goal 1:: Sleep without waking at night. Goal Time Frame: 4-6 Weeks Goal Progress: Progressing Goal 2:: Full L/S AROM without pain Goal Time Frame: 4-6 Weeks Goal Progress: Not Progressing Goal 3:: Pt feel 50% better overall and pain no wrose than 3/10 Goal Time Frame: 4-6 Weeks Goal Progress: 70% but >3/10 at times Goal 4:: I approp HEP to minimze future problems. Goal Time Frame: 4-6 Weeks Goal Progress: Progressing Anticipated Interventions Patient/Client Instruction: Educate patient on: Condition, Plan of Care For the Purpose of:: To decrease pain, To increase ROM, To improve muscle performance and motor function, To increase tolerance to activity/condition/position Therapeutic Exercise to Include: Strength training, Postural training, Flexibilty training, Passive ROM, Active ROM, Dynamic Lumbar Stabilization For the Purpose of:: To decrease pain, To increase ROM, To improve muscle performance and motor function, To increase tolerance to activity/condition/position, To improve ability of physical actions for home/community/work/leisure Manual Therapy Techniques to Include: Mobilization, Passive ROM, Soft tissue mobilization For the Purpose of:: To decrease pain, To increase ROM TENS: Yes Thermo therapy (hot pack): Yes For the Purpose of:: To decrease pain Please do not hesitate to contact me at [phone] by phone or if you have questions or concerns regarding this new plan of care! Sincerely, Santana Akbar, DPT, OCS, CSCS
--- NOTE | 2020-07-11 10:56 | HP.PTREVAL_ITS ---
Dr. Cailin Fair MD, It has been my pleasure to treat MARCELINO CARDONA over the last 6 visits for LBP and hip pain. Please see the progress note below for an update on the physical therapy plan of care! Subjective: Didn't want to come back from vacation. Back and hip are better but not 100%. Has massage and into gluts and it felt much better. Overall 75% better. Doing exercises while gone of walking but not specific to back. Sitting in car was worst on vacation stopped as often as they could to stretch. Sleep is better. No f/u with Dr. reyes. Objective/Function: reflexes 2/3 patella adn achilles, no probems with gross light touch in LE. No mytomal problems in LE. L/S AROm ext mod limted. Flexion min limited., SB are OK and not painful. Most painful and hard to move after extension. Very tender B Lumbar paraspinals and upper gluts.. Hard to find pelvic tilt initially but improved quickly , poor pepvic motor controla nd strength. Appropriate to continue PT for 2-4 weeks with fair prognosis per POC below. Plan Plan: 2x/week for 2-4 weeks. Pt is improved but has a way to go. Please do MH and STM to lB and upper gluts for 10 -15 mintutes , then work to NS mat based ex protocol to tolerance on mat and standing as tolerated, Sitting posture and body mechanics focus. Goals Goal 1:: Sleep without waking at night. Goal Time Frame: 4-6 Weeks Goal Progress: Progressing,a pprop Goal 2:: Full L/S AROM without pain Goal Time Frame: 4-6 Weeks Goal Progress: Not Progressing Goal 3:: Pt feel 50% better overall and pain no wrose than 3/10 Goal Time Frame: 4-6 Weeks Goal Progress: 75%, Goal 4:: I approp HEP to minimze future problems. Goal Time Frame: 4-6 Weeks Goal Progress: Progressing Goal 5:: Pt feel 90% better with back and I management of condition Goal Time Frame: 2-4 Weeks Goal Progress: NEW GOAL Anticipated Interventions Patient/Client Instruction: Educate patient on: Condition, Plan of Care For the Purpose of:: To decrease pain, To increase ROM, To improve muscle performance and motor function, To increase tolerance to activity/condition/position Therapeutic Exercise to Include: Strength training, Postural training, Flexibilty training, Passive ROM, Active ROM, Dynamic Lumbar Stabilization For the Purpose of:: To decrease pain, To increase ROM, To improve muscle performance and motor function, To increase tolerance to activity/condition/po sition, To improve ability of physical actions for home/community/work/leisure Manual Therapy Techniques to Include: Mobilization, Passive ROM, Soft tissue mobilization For the Purpose of:: To decrease pain, To increase ROM TENS: Yes Thermo therapy (hot pack): Yes For the Purpose of:: To decrease pain Please do not hesitate to contact me at [phone] by phone or if you have questions or concerns regarding this new plan of care! Sincerely, Santana Akbar, DPT, OCS, CSCS
--- NOTE | 2020-09-05 17:09 | HP.PT.NRP ---
MARCELINO CARDONA was seen in my office for initial evaluation on 06/10/20. The following Plan of Care was established for this patient: Initial Frequency: 2x /Week Initial Duration: 4-6 Weeks Patient/Client Instruction: Educate patient on: Condition, Plan of Care For the Purpose of:: To decrease pain, To increase ROM, To improve muscle performance and motor function, To increase tolerance to activity/condition/position Therapeutic Exercise to Include: Strength training, Postural training, Flexibilty training, Passive ROM, Active ROM, Dynamic Lumbar Stabilization For the Purpose of:: To decrease pain, To increase ROM, To improve muscle performance and motor function, To increase tolerance to activity/condition/position, To improve ability of physical actions for home/community/work/leisure Manual Therapy Techniques to Include: Mobilization, Passive ROM, Soft tissue mobilization For the Purpose of:: To decrease pain, To increase ROM TENS: Yes Thermo therapy (hot pack): Yes For the Purpose of:: To decrease pain This patient was last seen in our office 07/23/20. Pertinent comments regarding their Physical therapy will appear below: Pt seen 8 visits of POC adn was 75% better at last check. She no showed for her last scheduled visit. At this poit, it has been over 6 weeks and I will disocntinue due to nonattendance. At this point I will be discontinuing this patient from physical therapy. I would be happy to see this patient again in the future if found appropriate by the physician. Thank you! Santana Akbar, DPT, OCS, CSCS
== END 2020-07-23 19:00 | disposition home or self-care (01) ==
LOC: PT 12:30
PROVIDERS: PCP Family Medicine; Referring Provider Urology; Visit Provider Urology
DX: M25.551 Pain in right hip (principal); M25.552 Pain in left hip; M54.9 Dorsalgia, unspecified
CPT/HCPCS: 97014; 97110; 97162; 97164; 97530; G0283

== ENCOUNTER → 2020-09-27 16:23 | Outpatient (CLI) | payer MEDICAID, SELFPAY ==
[2020-07-28 08:54] VITALS: BMI 33.5
--- NOTE | 2020-09-27 16:26 | CT_ITS ---
STUDY: CT ABDOMEN AND PELVIS WITH AND WITHOUT CONTRAST REASON FOR EXAM: Female, 44 years old. Hematuria low back pain nausea and abdominal pain, left flank pain for one week RADIATION DOSAGE (If Supplied By Facility): CTDIvol = ( 21.35 ) mGy, DLP = ( 3692.79 ) mGycm TECHNIQUE: Transaxial images were obtained from the dome of the diaphragm to the symphysis pubis without oral contrast. IV 100mL Isovue-370 was administered. Sagittal and coronal images were reconstructed. Individualized dose optimization techniques were used for this CT. COMPARISON: 17 April 2019 FINDINGS: The visualized lung bases are unremarkable. The visualized portions of the heart are within normal limits. Normal liver. Gallbladder is removed.. Normal spleen. Normal pancreas. Normal bilateral adrenal glands. Normal right kidney. Normal left kidney. Normal visualized stomach. Normal small intestine. Normal colon. The appendix is visualized and appears normal. Normal abdominal aorta. Normal inferior vena cava. Normal retroperitoneum. Normal urinary bladder. Normal abdominal wall. Normal osseous structures. CT/CT Abd/Pelvis W/WO Contrast IMPRESSION: 1. Normal abdomen. No acute disease. 2. Normal urinary system. No urinary calculi. Electronically Signed: Justin Stover MD at 19:45 EDT Tel , Service support ,
== END ==
PROVIDERS: PCP Family Medicine; Referring Provider Urology; Visit Provider Urology
DX: M54.5 Low back pain (principal); R31.9 Hematuria, unspecified; R10.30 Lower abdominal pain, unspecified; R11.0 Nausea
CPT/HCPCS: 74178; Q9967

== ENCOUNTER → 2021-01-30 11:17 | Outpatient (CLI) | payer MEDICAID, SELFPAY ==
[2021-01-30 12:14] LABS: Anion Gap 5 (5-15); BUN 12 mg/dL (7-18); Calcium,Total 8.7 mg/dL (8.5-10.1); Chloride 107 mmol/L (98-107); Cholesterol 149 mg/dL (200); EST Glomerular Filtration Rate 83 mL/min (>60); Est Glom Filt Rate - Afr Amer 100 mL/min (>60); Glucose 106 mg/dL (74-106); High Density Lipoprotein 42 mg/dL; Sodium Level 140 mmol/L (136-145); Triglycerides 85 mg/dL; Very Low Density Lipoprotein 17 mg/dL (5-40)
== END ==
PROVIDERS: PCP Family Medicine; Referring Provider Family Medicine; Visit Provider Family Medicine
DX: Z00.00 Encounter for general adult medical examination without abnormal findings (principal)
CPT/HCPCS: 36415; 80048; 80061

== ENCOUNTER 2021-04-28 10:14 | Outpatient (CLI) | payer MEDICAID, SELFPAY ==
--- NOTE | 2021-04-28 10:16 | BI_ITS ---
MAMMOGRAPHY - BILATERAL SCREENING REASON FOR EXAM: Female, 45 years old. Routine annual screening examination. PERTINENT HISTORY: Non-contributory. TECHNIQUE: Digital bilateral breast silvio (3D mammographic acquisition) in the CC and MLO projections. 2-D mediolateral oblique (MLO) and craniocaudad (CC) views of both breasts were obtained. CAD: Full Field Digital Mammography with Computer Added Detection was performed. COMPARISON: Comparison is made with prior study dated 04/25/2020 and 04/24/2019. FINDINGS: Breast Composition: There are scattered areas of fibroglandular density. There are no dominant masses or suspicious calcifications. Stable small benign appearing bilateral axillary lymph nodes. No other significant abnormalities are identified. There has been no significant change since the prior study. BI/SCRN MAMM (CAD)W/SILVIO BILAT IMPRESSION: Stable bilateral screening mammogram. Yearly follow-up mammogram recommended. (A) ASSESSMENT CATEGORY: BIRADS Category 2: Benign. A letter regarding these results will be sent to the patient by the facility within 30 days. Approximately 10% of breast cancers are not detected by mammography. A normal mammogram should not delay biopsy of a clinically suspicious abnormality. [id number] Electronically Signed: Shaquille Menendez MD at 11:08 EST ,
== END 2021-04-28 23:59 | disposition short-term general hospital (02) ==
LOC: OPBI 10:14
PROVIDERS: PCP Family Medicine; Referring Provider Family Medicine; Visit Provider Family Medicine
DX: Z12.31 Encounter for screening mammogram for malignant neoplasm of breast (principal)
CPT/HCPCS: 77063; 77067

== ENCOUNTER 2021-05-02 09:55 | Outpatient (CLI) | payer MEDICAID, SELFPAY ==
--- NOTE | 2021-05-02 10:00 | VDLE_ITS ---
Reason For Study: Rt leg pain RIGHT GSV is normal. CFV is compressible, spontaneous, phasic, competent and demonstrates normal augmentation. FV is compressible, spontaneous, phasic, competent and demonstrates normal augmentation. POP V is compressible, spontaneous, phasic, competent and demonstrates normal augmentation. T/P Trunk is compressible. PTV is compressible. RT PerV is compressible. Procedure This is a venous duplex using B-mode, color flow and spectral Doppler. Exam performed in department. A preliminary report was called and/or faxed to [facility]. VL/Venous Duplex US, Unilateral Interpretation Summary Deep veins of the right lower extremity are patent and compressible segmentally . There is no evidence of right lower extremity deep vein thrombosis. Valvular competence dov ears intact within the proximal deep venous system on the right . The right great saphenous vein a ppears patent and compressible segmentally. Ordering Physician: Ashok Siu Referring Physician: Ashok Siu Performed By: Monse Lee RVT
== END 2021-05-02 23:59 | disposition short-term general hospital (02) ==
LOC: CVS 09:57
PROVIDERS: PCP Family Medicine; Referring Provider Family Medicine; Visit Provider Family Medicine
DX: M79.604 Pain in right leg (principal)
CPT/HCPCS: 93971

== ENCOUNTER 2021-07-10 15:49 | Outpatient (CLI) | payer MEDICAID, SELFPAY ==
[2021-07-10 18:16] LABS: Absolute Lymphocyte Count 1.93 X10^3/uL (0.83-4.51); Absolute Neutrophil Count 3.9 X10^3/uL (2.0-7.7); Basophil# 0.08 X10^3/uL; Basophil% 1.2 % (0-1); Eosinophil# 0.11 X10^3/uL; Eosinophils% 1.7 % (0-5); Hematocrit 40.5 % (37-47); Hemoglobin 13.7 g/dL (12.0-15.0); Lymphocyte # 1.93 X10^3/ul (0.83-4.51); Mean Corp Hgb Conc 33.8 g/dL (32-36); Mean Corpuscular Hgb 30.4 pg (27.0-32.0); Mean Corpuscular Volume 89.8 fL (81-99); Monocyte# 0.42 X10^3/uL; Monocyte% 6.5 % (0-10); NRBC Flagged by Analyzer 0 % (0-5); Neutrophil # 3.88 X10^3/uL (2.7-7.7); Neutrophil % 60.3 % (47-70); Platelet Count 295 K/mm3 (150-450); RBC Distribution Width CV 12.1 % (11.6-14.6); Red Blood Count 4.51 M/mm3 (4.2-5.4); White Blood Count 6.4 K/mm3 (4.4-11.0)
[2021-07-10 18:52] LABS: Thyroid Stim Hormone (TSH) 1.66 uIU/mL (0.358-3.74)
== END 2021-07-10 23:59 | disposition home or self-care (01) ==
PROVIDERS: PCP Family Medicine; Referring Provider Family Medicine; Visit Provider Nurse Practitioner Family
DX: R49.9 Unspecified voice and resonance disorder (principal)
CPT/HCPCS: 84443; 85025

== ENCOUNTER → 2021-07-21 | Outpatient (CLI) | payer MEDICAID, SELFPAY ==
--- NOTE | 2021-07-21 08:05 | RAD_ITS ---
INDICATION: DYSPHAGIA EXAMINATION/TECHNIQUE: Thick and thin barium oral contrast and gas bubbles were administered to the patient. Total Fluoroscopic Time: 36 seconds AND number of Fluoroscopic Images: 11 images OR Radiation dosage index: COMPARISON: None. FINDINGS: No masses or strictures are identified. There is no hiatal hernia. The mucosal pattern is unremarkable. There is normal motility. Reflux was not elicited. RAD/Esophagus Dual Contrast IMPRESSION: Negative. Electronically Signed: Ayush Dumont, at 9:34 EDT ,
== END | disposition home or self-care (01) ==
LOC: RAD 08:00
PROVIDERS: PCP Family Medicine; Referring Provider Otolaryngology; Visit Provider Otolaryngology
DX: R13.10 Dysphagia, unspecified (principal)
CPT/HCPCS: 74221

== ENCOUNTER → 2021-10-31 | Outpatient (CLI) | payer MEDICAID, SELFPAY ==
[2021-10-31 09:30] LABS: Absolute Lymphocyte Count 1.79 X10^3/uL (0.83-4.51); Absolute Neutrophil Count 3.7 X10^3/uL (2.0-7.7); Basophil% 1.6 % (0-1); Eosinophil# 0.27 X10^3/uL; Eosinophils% 4.3 % (0-5); Hematocrit 40.4 % (37-47); Hemoglobin 13.8 g/dL (12.0-15.0); Lymphocyte # 1.79 X10^3/ul (0.83-4.51); Lymphocyte % 28.6 % (19-41); Mean Corp Hgb Conc 34.2 g/dL (32-36); Mean Corpuscular Hgb 31.2 pg (27.0-32.0); Mean Corpuscular Volume 91.2 fL (81-99); Mean Platelet Vol. 9.6 fl (6.2-12.0); Monocyte# 0.37 X10^3/uL; Monocyte% 5.9 % (0-10); NRBC Flagged by Analyzer 0 % (0-5); Neutrophil # 3.72 X10^3/uL (2.7-7.7); Neutrophil % 59.4 % (47-70); Platelet Count 278 K/mm3 (150-450); RBC Distribution Width CV 12.2 % (11.6-14.6); RBC Distribution Width SD 40.5 fl (35.1-43.9); Red Blood Count 4.43 M/mm3 (4.2-5.4); White Blood Count 6.3 K/mm3 (4.4-11.0)
[2021-10-31 10:13] LABS: AST(SGOT) 13 U/L (15-37); Alanine Aminotransfer ALT/SGPT 21 U/L (13-56); Albumin, Serum 3.7 g/dL (3.2-5.0); Alkaline Phosphatase 75 U/L (45-117); Anion Gap 4 (5-15); BUN 15 mg/dL (7-18); BUN/Creat Ratio 18.6 RATIO (10-20); Calcium,Total 8.8 mg/dL (8.5-10.1); Chloride 107 mmol/L (98-107); Creatinine, Serum 0.81 mg/dL (0.55-1.02); EST Glomerular Filtration Rate 82 mL/min (>60); Est Glom Filt Rate - Afr Amer 99 mL/min (>60); Globulin 3.6 g/dL (2.2-4.2); Glucose 109 mg/dL (74-106); Potassium 4.1 mmol/L (3.5-5.1); Protein, Total 7.3 g/dL (6.4-8.2); Sodium Level 140 mmol/L (136-145)
[2021-10-31 10:15] LABS: Vitamin D,25 Hydroxy 39.8 ng/mL
== END | disposition home or self-care (01) ==
LOC: LAB 08:56
PROVIDERS: PCP Internal Medicine; Visit Provider Internal Medicine
DX: F41.9 Anxiety disorder, unspecified (principal); F32.2 Major depressive disorder, single episode, severe without psychotic features; E55.9 Vitamin D deficiency, unspecified
CPT/HCPCS: 36415; 80053; 82306; 85025

== ENCOUNTER → 2021-12-16 | Outpatient (CLI) | payer MEDICAID, SELFPAY ==
--- NOTE | 2021-12-16 06:32 | MRI_ITS ---
STUDY: MRI BRAIN WITHOUT CONTRAST REASON FOR EXAM: Female, 45 years old. New headaches, wakes from sleep TECHNIQUE: Standardized multiplanar fat and water weighted pulse sequences were obtained. COMPARISON: CT head without contrast 03/17/2013 FINDINGS: Normal size of the ventricles and extra-axial spaces for the patient''s age. Normal white matter tracts of the supratentorial brain. Normal bilateral basal ganglia. Normal thalami. There is no extra-axial fluid accumulation. Normal flow voids within the major intracranial circulation suggesting patency by spin echo criteria. Normal sella turcica, pituitary gland, infundibular stalk, optic chiasm and hypothalamus. Normal tectal plate and pineal gland. Normal midbrain, mariam and medulla. Normal cerebellum. Normal basal cisterns. Normal bilateral temporal bones. Normal bilateral internal auditory canals. No demonstrated orbital abnormality, within the constraints of a routine brain study. Mild mucosal thickening in the maxillary sinuses. Very minimal mucosal thickening in the dominant left frontal sinus. Minimal mucosal thickening in the ethmoid sinuses. Normal sphenoid sinus. Normal calvarium and skull base. Normal visualized soft tissue structures. Normal visualized upper cervical spine. MRI/Brain without Contrast IMPRESSION: 1. Normal unenhanced MRI of the brain. 2. Minimal mucosal thickening maxillary sinuses, ethmoid sinuses and left frontal sinus. Electronically Signed: Kevin Navarrete MD at 9:48 EDT ,
== END | disposition home or self-care (01) ==
LOC: MRI 06:32
PROVIDERS: PCP Internal Medicine; Referring Provider Internal Medicine; Visit Provider Internal Medicine
DX: R51.9 Headache, unspecified (principal)
CPT/HCPCS: 70551

== ENCOUNTER → 2022-01-07 | Outpatient (CLI) | payer MEDICAID, SELFPAY ==
--- NOTE | 2022-01-07 11:59 | CT_ITS ---
STUDY: CT ABDOMEN AND PELVIS WITHOUT CONTRAST REASON FOR EXAM: Female, 46 years old. FLANK PAIN SUPRAPUBIC PAIN A FEW DAYS AGO, NOW LT FLANK PAIN RADIATION DOSAGE (If Supplied By Facility): CTDIvol = ( 21.01 ) mGy, DLP = ( 1100.77 ) mGycm TECHNIQUE: Transaxial images were obtained from the dome of the diaphragm to the symphysis pubis without oral contrast, and without intravenous contrast. Sagittal and coronal images were reconstructed. Individualized dose optimization techniques were used for this CT. COMPARISON: CT of abdomen and pelvis dated September 27, 2020 FINDINGS: The visualized lung bases are unremarkable. Normal liver. No intrahepatic biliary duct dilatation or liver mass. There is surgical suture material in the gallbladder fossa consistent with a prior cholecystectomy. Normal spleen. Normal pancreas. Normal bilateral adrenal glands. Normal right kidney. Normal left kidney. No hydronephrosis or renal masses. No visualized radiopaque stones. Normal visualized stomach. Normal small intestine. Normal colon. No bowel dilatation or obstruction. No free air or free fluid. The appendix is visualized and appears normal. Normal abdominal aorta. Normal inferior vena cava. Normal retroperitoneum. Normal urinary bladder. Unremarkable uterus and adnexa. Normal abdominal wall. Normal osseous structures. CT/Abdomen/Pelvis without Cont IMPRESSION: 1. Negative unenhanced CT of the abdomen and pelvis. 2. No demonstrated hydronephrosis or radiopaque stones. Electronically Signed: Tulio Baptiste MD at 12:33 EDT ,
== END | disposition home or self-care (01) ==
PROVIDERS: PCP Internal Medicine; Referring Provider Urology; Visit Provider Urology
DX: R10.9 Unspecified abdominal pain (principal); N20.0 Calculus of kidney
CPT/HCPCS: 74176

== ENCOUNTER 2022-01-14 10:30 | Outpatient (RCR) | payer MEDICAID, SELFPAY ==
--- NOTE | 2021-12-24 14:21 | HP.PTEVAL_ITS ---
Patient's Visit Information MARCELINO CARDONA is a 45 year old F referred to Physical Therapy by Dr. Cailin Mckenzie MD with a diagnosis of URGE, FREQUENCY AND STRESS INCONTINENCE.. Date of Evaluation: 12/24/21 Physical Therapist: Debra Montes PT, Cert MDT - Visit Plan Frequency: 1-2x /Week Plan: MANUAL PF THERAPY FOR STRENGTHENING, LENGTHENING/RELAXATION AND ENDURANCE TRAINING. URINARY RETENTION EDUCATION. CONSIDER INTERNAL OR EXTERNAL PF BIOFEEDBACK WITH EQUIPMENT. TRAINING IN COORDINATION OF PELVIC FLOOR MUSCULATURE WITH CORE (TRANSVERSE ABDOMINUS) STRENGTHENING. TRAINING IN ABDOMINAL CAVITY PRESSURE MGMT WITH ADL'S TO DECREASE ANY URINARY LEAKING. INCREASE MAAME HIP FLEXABILITY. CORE STRENGTHENING. 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 3 CHILDREN AGES 24, 16 AND 15. ALL VAGINAL BIRTHS. . CURRENTLY SEXUALLY ACTIVE. Disability: NO. Present symptoms: BLADDER LEAKING WITH COUGHING AND SNEEZING. PATIENT REPORTS SHE WAS SICK IN AUGUST AND DOING A LOT OF COUGHING AND HAD TO WEAR PADS DUE TO HAVING SO MUCH LEAKING. DAILY LOW BACK PAIN BUT NOT CONSTANT. DENIES MAAME LUMBAR RADICULAR SX'S. Present since: SOME LEAKING X A FEW YEARS. HAS PROGRESSED AND THIS LAST YEAR HAS BEEN MORE. Pain Scale: SOMETIMES DURING SEXUAL INTERCOURCE. PAIN RANGING 0-8/10. Commenced as a result of: QUESTIONING IF CAUSE OF INCREASE IN LEAKING IS DUE TO UTERINE ABLASION NOV 2020 - FOR EXTREMELY HEAVY PERIODS. IMPROVEMENT IN BLEEDING POST PROCEEDURE. Worse: COUGHING AND SNEEZING. IF TRIES TO DELAY VOIDING. SOMETIMES CAN'T QUITE MAKE IT TO THE TOLIET IN TIME EVEN IF DOESNT DELAY. Better: NOTHING. Dist urbed sleep: YES - WAKING UP TO GO TO THE BATHROOM UP TO 3 TIMES A NIGHT. NO ACCIDENTS IN THE BED. Previous history/Previous treatment: NONE FOR PELVIC FLOOR. SEE'S CHIROPRACTOR FOR BACK AND HIPS WITH MOST RECENT VISIT BEING ABOUT 6 MONTHS AGO. STARTED GOING TO A [facility] IN CHILDHOOD. Bowel Dysfunction: NO BOWEL INCONTINENCE. Accidents: MULTIPLE FALLS DOWN STEPS LANDING ON [employer] AREA BUT NONE RECENT. SITS ON A DONUT SOMETIMES. Unexplained weight loss: NO. Imaging: NONE RECENT. DR. MCKENZIE DID A TEST A YEAR AGO THAT SHOWED HER BLADDER EMPTYING IS NORMAL PER PATIENT REPORT. PMH/Recent major surgery: HTN - RECENTLY DIAGNOSED. ANXIETY AND DEPRESSION. GASTRIC ISSUES. MAAME HIP BURSITIS. MAAME KNEE OA - GETTING KNEE BRACES. OTHER: REPORTS SHE MAY NEED TO CONSIDER MESH SURGERY IF THIS DOESN'T WORK. - Objective Sitting/Standing Posture: FAIR. NO RELEVENT LATERAL SHIFT. Active Correction of posture: BETTER. Other Observations: INDEP GAIT AND TRANSFERS. Sensory deficit: MAAME LE LIGHT TOUCH SENSATION GROSSLY INTACT AND SYMMETRICAL. ROM deficit: TIGHT MAAME HIP FLEXORS AND GASTROC SOLEUS COMPLEX'S. MAAME HIP EXTERNAL ROTATION TIGHTNESS AND EXCESSIVE INTERNAL ROTATION. TIGHT MAAME HIP ADDUCTORS. Motor deficit: MAAME LE'S GROSSLY 5/5 WITH MMT'ING EXCEPT LEFT HIP 4/5. Dural Signs: POSITIVE LEFT LE. Lumbar mvmt loss: flex - MIN TO MOD. ext - MOD. R SG - MOD. L SG - MOD. PATIENT DENIES PAIN WITH LUMBAR ROM TESTING ALL PLANES TODAY. Core strength: POOR. Palpation: LOW BACK AND MAAME GREATER TROCH REGION TENDERNESS WITH LIGHT PALPATION TODAY. Internal Vaginal Manual Exam: Patient with very tight pelvic floor musculature bilateral with multiple trigger points but no acute tenderness with light pressure today. Poor pelvic floor strength graded 2/5 x 3 sec x 3 reps. TREATMENT: THER ACT - INSTRUCTED PATIENT IN DOUBLE VOIDING, AVOIDING KEGEL'S DURING micturition, INCREASE of FLUID INTAKE to 1/2 BODY WEIGHT IN OUNCES (with 2/3 being H2O), DELAYED VOIDING X 60 MINUTES AND TO AVOID JIC VOIDING. - Goals Goal 1:: DECREASE URINARY LEAKAGE EPISODES TO LESS THAN DAILY. Goal Time Frame: 8-12 Weeks Goal 2:: PATIENT WILL SUCCESSFULLY DELAY VOIDING FOR 10 MINUTES WHEN URGENCY OCCURS. Goal Time Frame: 6-8 Weeks Goal 3:: PATIENT WILL HAVE INCREASED PELVIC FLOOR MUSCLE STRENGTH GRADE TO 5/5 Goal Time Frame: 6-8 Weeks Goal 4:: PATIENT WILL DEMONSTRATE 10 CONSISTENT AND CONSECUTIVE 10 SECOND PELVIC FLOOR MUSCLE CONTRACTIONS TO DEMONSTRATE IMPROVED PELVIC FLOOR ENDURANCE. Goal Time Frame: 8-12 Weeks Goal 5:: PATIENT WILL BE ABLE TO HAVE SEXUAL RELATIONS WITH HER WITHOUT PAIN. Goal Time Frame: 8-12 Weeks Goal 6:: PATIENT WILL BE INDEP WITH A HEP/HOME INSTRUCTIONS FOR CONTINUED IMPROVEMENT ONCE FORMAL PHYSICAL THERAPY CONCLUDES. Goal Time Frame: 8-12 Weeks - Anticipated Interventions Patient/Client Instruction: Educate patient on: Condition, Plan of Care, Risk Factors For the Purpose of:: To improve self management Therapeutic Exercise to Include: Strength training, Endurance training, Coordination, Postural training, Flexibilty training, Neuromotor development, Biofeedback, Dynamic Lumbar Stabilization For the Purpose of:: To decrease pain, To increase ROM, To improve muscle performance and motor function, To increase tolerance to activity/condition/position Manual Therapy Techniques to Include: Trigger point massage, Soft tissue mobilization Comment: MANUAL BIOFEEDBACK For the Purpose of:: To decrease pain, To increase ROM, To improve muscle performance and motor function Thank you for the opportunity to evaluate your patient. For Medicare and Medicare HMO plans, please review the plan of care and approve it. It will need to be FAXED BACK to us at [phone] for Medicare purposes. For Medicare only, by signing this I certify the plan of care. Please let me know if there are questions or concerns regarding this plan of care. Physician Signature: Date:
--- NOTE | 2022-02-11 10:28 | HP.PT.NRP ---
MARCELINO CARDONA was seen in my office for initial evaluation on 12/24/21. The following Plan of Care was established for this patient: Initial Frequency: 1-2x /Week Patient/Client Instruction: Educate patient on: Condition, Plan of Care, Risk Factors For the Purpose of:: To improve self management Therapeutic Exercise to Include: Strength training, Endurance training, Coordination, Postural training, Flexibilty training, Neuromotor development, Biofeedback, Dynamic Lumbar Stabilization For the Purpose of:: To decrease pain, To increase ROM, To improve muscle performance and motor function, To increase tolerance to activity/condition/position Manual Therapy Techniques to Include: Trigger point massage, Soft tissue mobilization Comment: MANUAL BIOFEEDBACK For the Purpose of:: To decrease pain, To increase ROM, To improve muscle performance and motor function This patient was last seen in our office . Pertinent comments regarding their Physical therapy will appear below: PATIENT REPORTS DR. MCKENZIE CLEARED HER FOR HAVING URINARY SYSTEM PROBLEMS AND REFERRED HER TO GI SPECIALIST. STATES SHE IS UNDERGOING TESTING WITH THE GI SPECIALIST NOW. PATIENT REPORTS SHE DOES NOT WANT TO HAVE ANY TESTING OR TREATMENT TODAY SHE JUST WANTS TO UPDATE ME. PATIENT REPORTS SHE HASN'T BEEN HAVING URINARY INCONTINENCE. WILL D/C CHART FOR NOW. PATIENT AGREEABLE. At this point I will be discontinuing this patient from physical therapy. I would be happy to see this patient again in the future if found appropriate by the physician. Thank you! Debra Montes, PT, Cert MDT
== END 2022-01-14 19:00 | disposition home or self-care (01) ==
LOC: PT 10:30
PROVIDERS: PCP Internal Medicine; Referring Provider Urology; Visit Provider Urology
DX: N39.46 Mixed incontinence (principal)
CPT/HCPCS: 97140; 97162; 97530

== ENCOUNTER 2022-02-19 18:10 | Emergency (ER) | payer MEDICAID, SELFPAY ==
[2022-02-19 18:11] VITALS: BP 165/98; PULSE 95; RESP 16; TEMP 36.3; O2SAT 97; BMI 35.7
--- NOTE | 2022-02-19 18:41 | EDS_ITS ---
HPI History of Present Illness Chief Complaint: Laceration Informant: patient Occured/Mechanism Comment: Accidentally incised while cleaning a knife Onset/Context/Timing Onset: Today Context: Sudden Onset Timing: Continuous Quality of Pain: - (sore) Location: Right index finger Current Severity: Mild Maximum Severity: Mild Worsened by: Palpation Relieved by: Leaving alone Associated Symptoms Associated Symptoms: Positive for - (Bleeding); Negative for Parasthesia, Weakness or Loss of Funtion Narrative Narrative: [id number] female used a knife to cut a piece of pie on Thanksgiving and accidentally incised her finger while cleaning the knife which was otherwise clean. [id number]. Last tetanus is unknown but she thinks it was within the past 5 years. [facility] Medical History Abnormal bruising Abnormal weight loss Acid reflux Anemia Asthma Back pain Bloating Chronic diarrhea Cough Depression Difficulty balancing Early satiety Fatigue Herpes zoster History of anxiety History of gastrointestinal disorder History of skin cancer Hx of carpal tunnel syndrome Hx of seasonal allergies Hx: UTI (urinary tract infection) IBS (irritable bowel syndrome) LUQ abdominal pain Menorrhagia with regular cycle Migraines Nausea Pelvic pain Vitamin D deficiency Home Medications bupropion HCl 300 mg 24 hr tablet, extended release (Wellbutrin XL) 300 mg PO QAM 01/02/19 [History Last Taken Unknown] omeprazole 20 mg capsule,delayed release 20 mg PO BID 10/29/21 [History Last Taken Unknown] albuterol sulfate 90 mcg/actuation aerosol inhaler 2 puff inhalation Q6H PRN shortness of breath or wheezing #8.5 grams 12/10/21 [Rx Last Taken Unknown] blood pressure monitor #1 ea 12/10/21 [Rx Last Taken Unknown] fexofenadine 180 mg tablet (Mayelin Allergy) 180 mg PO DAILY #10 tabs 12/24/21 [Rx Last Taken Unknown] fluticasone propionate 50 mcg/actuation nasal spray,suspension (Flonase Allergy Relief) 1 spray intranasal DAILY #16 grams 12/24/21 [Rx Last Taken Unknown] meloxicam 15 mg tablet 15 mg PO DAILY Pain #30 tabs 01/02/22 [Rx Last Taken Unknown] lisinopril 5 mg tablet 5 mg PO DAILY #30 tabs 02/05/22 [Rx Last Taken Unknown] fluoxetine 40 mg capsule 40 mg PO DAILY #30 caps 02/09/22 [Rx Last Taken Unknown] Allergy/AdvReac Type Severity Reaction Status Date / Time ofloxacin Allergy Severe SWELLING Verified 02/19/22 18:37 Family History Grandmother Heart disease Colon cancer Diabetes Grandmother Diabetes Father Rheumatoid arthritis Mother Anxiety Arthritis Depression Brother Asthma Allergies Grandfather Cancer Surgical History History of carpal tunnel surgery History of tonsillectomy Hx of cholecystectomy S/P endometrial ablation Status post hysteroscopy Social History adopted: No household members: family housing: apartment number of children: 3 current occupational status: employed current occupation: [employer] sexually active: Yes Smoking Status: Never smoker Electronic Cigarette Use: not used alcohol intake: current alcohol intake frequency: holidays/special occasions only details: social substance use type: does not use caffeine: Yes what type of physical activity do you participate in: none and walking frequency: 1-2 times per week seatbelt use: always do you feel safe at home: Yes additional social history: Single- [employer] ROS ROS ED Constitutional Constitutional ED: Denies chills or fever(s) Musculoskeletal Musculoskeletal: Reports extremity pain; Denies neck pain Integumentary Reports wounds; Denies Abrasions or rash Neurologic Neurologic: Denies paresthesias or weakness EXAM Physical Exam Const Vital Signs: 02/19/22 18:11 Temperature 97.3 F L Temperature Source Temporal Pulse Rate 95 Respiratory Rate 16 Blood Pressure 165/98 H Blood Pressure Mean 120 Pulse Ox 97 Oxygen Delivery Method Room Air Positive well nourished and well developed General Appearance ED: well developed and NAD Neck full ROM and supple Back/Spine normal ROM and normal to inspection Extremity full ROM Extremity Narrative: Laceration to the radial aspect of the right index finger proximal phalanx, no limited flexion or extension, it is at the radial aspect of the finger. No pulsatile bleeding. Neuro oriented x3, no focal motor deficits and no sensory deficits noted Sensorium / Orientation: alert Psych mental status grossly normal and thought process normal Skin Skin Narrative: Cutaneous level laceration to the radial aspect of the right index finger proximal phalanx, no arterial bleeding, 1 cm in length somewhat irregular. No FB. Rashes: no rashes MDM MDM MDM Narrative Medical decision making narrative: Patient's laceration was repaired to hasten healing and for good hemostasis which were obtained. Patient was given appropriate discharge instructions for removal in approximately 10 days, dressed with bacitracin prior to discharge. Her tetanus is up-to-date. Procedures Lacerations R index finger: Length: 1.5 cm Depth: Skin Shape: Linear Prep: Sterile Conditions and Chlorhexadine Laceration repair: Irrigated, Lidocaine (1%, 1ccc), Local and Skin sutures Number of Sutures/Thornton: 3 Suture Information: Ethilon, Simple and 5-0 Discharge Plan Triage Chief Complaint: Laceration ED Provider: Landon Doe Dx/Rx/DC Orders Clinical Impression: Laceration of right index finger Instructions: ED Laceration, Hand: All Closures Prescriptions: No Action bupropion HCl [Wellbutrin XL] 300 mg tablet extended release 24 hr 300 mg PO QAM omeprazole 20 mg capsule,delayed release(DR/EC) 20 mg PO BID Label Comments: TAKE 1 CAPSULE BY MOUTH EVERY DAY albuterol sulfate 90 mcg/actuation HFA aerosol inhaler 2 puff inhalation Q6H PRN (Reason: shortness of breath or wheezing) Qty: 8.5 1RF (DME) blood pressure monitor Kit See Rx Instructions .Route Qty: 1 0RF Rx Instructions: As directed meloxicam 15 mg tablet 15 mg PO DAILY Qty: 30 1RF Rx Instructions: Do not take in conjunction with other NSAIDs. Tylenol is okay. fluticasone propionate [Flonase Allergy Relief] 50 mcg/actuation spray,suspension 1 spray intranasal DAILY Qty: 16 0RF Rx Instructions: administer into each nostril fexofenadine [Mayelin Allergy] 180 mg tablet 180 mg PO DAILY Qty: 10 0RF lisinopril 5 mg tablet 5 mg PO DAILY Qty: 30 2RF fluoxetine 40 mg capsule 40 mg PO DAILY Qty: 30 1RF Primary Care Provider: Geeta Hickman Referrals: Geeta Hickman MD [Primary Care Provider] - 10 Day for suture removal (Or ER/urgent care) Disposition Disposition: Home, Self Care
[2022-02-19] MEDS: Lidocaine 1% (20 ml mdv) 20 ML Vial INFILT (18:46)
[2022-02-19 19:35] VITALS: RESP 18
== END 2022-02-19 19:40 | disposition home or self-care (01) ==
PROVIDERS: Emergency Provider Emergency Medicine; PCP Internal Medicine; Visit Provider Emergency Medicine
DX: S61.210A Laceration without foreign body of right index finger without damage to nail, initial encounter (principal); W26.0XXA Contact with knife, initial encounter
CPT/HCPCS: 12001; 99283

== ENCOUNTER → 2022-04-03 | Outpatient (CLI) | payer MEDICAID, SELFPAY ==
--- NOTE | 2022-04-03 07:59 | VDLE_ITS ---
Reason For Study: Pain RIGHT GSV is normal. CFV is compressible, spontaneous, phasic, competent and demonstrates normal augmentation. FV is compressible, spontaneous, phasic, competent and demonstrates normal augmentation. POP V is compressible, spontaneous, phasic, competent and demonstrates normal augmentation. T/P Trunk is compressible. PTV is compressible. RT PerV is compressible. Procedure This is a venous duplex using B-mode, color flow and spectral Doppler. Exam performed in department. A preliminary report was called and/or faxed to [facility]. VL/Venous Duplex US, Unilateral Interpretation Summary Deep veins of the right lower extremity are patent and compressible segmentally . There is no evidence of right lower extremity deep vein thrombosis. The right great sapheno us vein appears patent and compressible segmentally. Ordering Physician: Geeta Hickman Referring Physician: Geeta Hickman Performed By: Monse Lee RVT
== END | disposition home or self-care (01) ==
LOC: CVS 07:58
PROVIDERS: PCP Internal Medicine; Visit Provider Internal Medicine
DX: M79.661 Pain in right lower leg (principal)
CPT/HCPCS: 93971

== ENCOUNTER → 2022-04-09 | Outpatient (CLI) | payer MEDICAID, SELFPAY | END | disposition home or self-care (01) | PROVIDERS: PCP Internal Medicine; Referring Provider Internal Medicine; Visit Provider Internal Medicine | DX: R03.0 Elevated blood-pressure reading, without diagnosis of hypertension (principal); G47.10 Hypersomnia, unspecified; R29.818 Other symptoms and signs involving the nervous system | CPT/HCPCS: 95810 ==

== ENCOUNTER → 2022-04-29 | Outpatient (CLI) | payer MEDICAID, SELFPAY ==
--- NOTE | 2022-04-29 09:35 | BI_ITS ---
MAMMOGRAPHY - BILATERAL SCREENING REASON FOR EXAM: Female, 46 years old. Routine annual screening examination. PERTINENT HISTORY: Non-contributory. TECHNIQUE: Digital bilateral breast silvio (3D mammographic acquisition) in the CC and MLO projections. 2-D mediolateral oblique (MLO) and craniocaudad (CC) views of both breasts were obtained. CAD: Full Field Digital Mammography with Computer Added Detection was performed. COMPARISON: Comparison is made with prior study dated 04/28/2021 and 04/25/2020. FINDINGS: Breast Composition: There are scattered areas of fibroglandular density. There are no dominant masses or suspicious calcifications. Stable small benign appearing bilateral axillary lymph nodes. No other significant abnormalities are identified. There has been no significant change since the prior study. BI/SCRN MAMM (CAD)W/SILVIO BILAT IMPRESSION: Stable bilateral screening mammogram. Yearly follow-up mammogram recommended. (A) ASSESSMENT CATEGORY: BIRADS Category 2: Benign. A letter regarding these results will be sent to the patient by the facility within 30 days. Approximately 10% of breast cancers are not detected by mammography. A normal mammogram should not delay biopsy of a clinically suspicious abnormality. [id number] Electronically Signed: Shaquille Menendez MD at 12:24 EST ,
== END | disposition home or self-care (01) ==
PROVIDERS: PCP Internal Medicine; Referring Provider Internal Medicine; Visit Provider Internal Medicine
DX: Z12.31 Encounter for screening mammogram for malignant neoplasm of breast (principal)
CPT/HCPCS: 77063; 77067

== ENCOUNTER → 2022-05-20 | Outpatient (CLI) | payer MEDICAID, SELFPAY ==
[2022-05-20 14:26] LABS: Hemoglobin A1c 5.1 % (3.8-5.6)
== END | disposition home or self-care (01) ==
LOC: BIMLAB 08:07
PROVIDERS: PCP Internal Medicine; Referring Provider Internal Medicine; Visit Provider Internal Medicine
DX: R73.09 Other abnormal glucose (principal)
CPT/HCPCS: 36415; 83036

== ENCOUNTER → 2022-06-03 | Outpatient (CLI) | payer MEDICAID, SELFPAY ==
[2022-06-05 20:07] LABS: Chlamydia By Nucleic Acid AMP Negative (Negative)
[2022-06-05 20:59] LABS: Gonococcus By Nucleic Acid AMP Negative (Negative)
== END | disposition home or self-care (01) ==
PROVIDERS: PCP Internal Medicine; Visit Provider Nurse Practitioner Women's Health
DX: N89.8 Other specified noninflammatory disorders of vagina (principal); R30.0 Dysuria
CPT/HCPCS: 87070; 87086; 87088; 87205; 87491; 87591

== ENCOUNTER → 2022-06-09 | Outpatient (CLI) | payer MEDICAID, SELFPAY ==
--- NOTE | 2022-06-09 18:13 | US_ITS ---
STUDY: ULTRASOUND OF THE FEMALE PELVIS - COMPLETE REASON FOR EXAM: Female, 46 years old. Left-sided pelvic pain and fullness LMP: Unknown. TECHNIQUE: Transabdominal TECHNICAL QUALITY: Adequate. COMPARISON: None. FINDINGS: The uterus is anteverted and is in a midline position. The uterus measures 8.6 x 4.1 x 2.5 cm. Normal uterine cervix. The endometrium measures 4 mm in thickness, and is hyperechoic. There is no demonstrated endometrial mass. There is no demonstrated myometrial mass. I.U.D. - The patient does not have an I.U.D. The right ovary is visualized. The right ovary measures 2.7 x 1.9 x 0.9 cm. There is no right ovarian cyst or ovarian mass. There is no visualized right adnexal mass or complex lesion. There is normal arterial and normal venous vascularity. The left ovary is visualized. The left ovary measures 2.9 x 1.9 x 1.7 cm. There is a simple 1.0 cm cyst.. There is normal arterial and normal venous vascularity. There is no fluid in the cul-de-sac. The bladder is sonographically normal with estimated prevoid volume of 478.22 mL US/Pelvic (Non ) IMPRESSION: No suspicious sonographic findings, simple left ovarian cyst, no specific follow-up needed. However, study is limited due to being only performed transabdominally Electronically Signed: Jayesh Landaverde MD at 8:13 EDT ,
== END | disposition home or self-care (01) ==
LOC: US 18:10
PROVIDERS: PCP Internal Medicine; Visit Provider Urology
DX: R10.2 Pelvic and perineal pain (principal)
CPT/HCPCS: 76856

== ENCOUNTER 2022-06-15 22:12 | Emergency (ER) | payer MEDICAID, SELFPAY ==
[2022-06-15 22:12] VITALS: BP 127/104; PULSE 122; RESP 20; TEMP 37.1; O2SAT 97; BMI 36.8
[2022-06-15 23:07] VITALS: PULSE 107; RESP 18
[2022-06-15] MEDS: Ipratropium/Albuterol Sulfate 3 ML AMPUL.NEB INHALATION (23:07)
--- NOTE | 2022-06-15 23:07 | EDS_ITS ---
HPI HPI - URI History of Present Illness Chief Complaint: Shortness of Breath Informant: patient Narrative Narrative: Patient states she has been ill for 10 days total. She had low-grade subjective fevers in the beginning but no more. Initially sore throat but that is gone now, coughing mostly, chest and upper back sore from coughing, along with also some chest tightness and wheezing. She has been seen in urgent care twice already for this, once was yesterday and she was prescribed doxycycline which she has not started yet, in addition to prednisone for 4 days, 20 mg/day. She states he has a history of exercise-induced asthma. She has been in contact with no one that she knows of with any similar illness. She was tested for strep at the beginning but not swabbed for anything else. She states it was negative. ROS ROS ED Constitutional Constitutional ED: Reports fever(s) and subjective; Denies chills ENT ENT ED: Reports nasal congestion, rhinorrhea and sore throat; Denies ear pain Cardiovascular Cardiovascular: Reports chest pain; Denies palpitations Respiratory/Chest Respiratory/Chest: Reports chest tightness, cough, dyspnea and wheezing Gastrointestinal Gastrointestinal: Denies abdominal pain, diarrhea, nausea or vomiting Genitourinary Genitourinary ED: Denies dysuria or hematuria Musculoskeletal Musculoskeletal: Denies myalgias or neck pain Integumentary Denies abscess or rash Neurologic Neurologic: Denies headache(s), paresthesias or weakness Psychiatric Psychiatric: Denies depression or suicidal thoughts Endocrine Endocrinology: Denies polydipsia or polyuria [facility] Medical History Abnormal bruising Abnormal weight loss Acid reflux Anemia Asthma Back pain Bloating Chronic diarrhea Cough Depression Difficulty balancing Early satiety Fatigue Herpes zoster History of anxiety History of gastrointestinal disorder History of skin cancer Hx of carpal tunnel syndrome Hx of seasonal allergies Hx: UTI (urinary tract infection) IBS (irritable bowel syndrome) LUQ abdominal pain Menorrhagia with regular cycle Migraines Nausea Pelvic pain Vitamin D deficiency Home Medications bupropion HCl 300 mg 24 hr tablet, extended release (Wellbutrin XL) 300 mg PO QAM 01/02/19 [History Last Taken Unknown] albuterol sulfate 90 mcg/actuation aerosol inhaler 2 puff inhalation Q6H PRN shortness of breath or wheezing #8.5 grams 12/10/21 [Rx Last Taken Unknown] blood pressure monitor #1 ea 12/10/21 [Rx Last Taken Unknown] fluticasone propionate 50 mcg/actuation nasal spray,suspension (Flonase Allergy Relief) 1 spray intranasal DAILY #16 grams 02/24/22 [Rx Last Taken Unknown] fluoxetine 40 mg capsule 40 mg PO DAILY #90 caps 04/01/22 [Rx Last Taken Unknown] meloxicam 15 mg tablet 15 mg PO .every other day Pain #45 tabs 04/01/22 [Rx Last Taken Unknown] lisinopril 5 mg tablet 5 mg PO DAILY #30 tabs 05/01/22 [Rx Last Taken Unknown] dicyclomine 10 mg capsule 10 mg PO TID 06/03/22 [History Last Taken Unknown] omeprazole 20 mg capsule,delayed release 40 mg PO BID 06/03/22 [History Last Taken Unknown] albuterol sulfate 2.5 mg/3 mL (0.083 %) solution for nebulization 2.5 mg (3 mL) inhalation Q4H PRN #25 vials 06/16/22 [Rx Last Taken Unknown] prednisone 10 mg tablet 10 mg PO UD #26 tabs 06/16/22 [Rx Last Taken Unknown] Allergy/AdvReac Type Severity Reaction Status Date / Time ofloxacin Allergy Severe SWELLING Verified 06/15/22 22:15 Family History Grandmother Heart disease Colon cancer Diabetes Grandmother Diabetes Father Rheumatoid arthritis Mother Anxiety Arthritis Depression Brother Asthma Allergies Grandfather Cancer Surgical History History of carpal tunnel surgery History of tonsillectomy Hx of cholecystectomy S/P endometrial ablation Status post hysteroscopy Social History adopted: No household members: family housing: apartment number of children: 3 current occupational status: employed current occupation: [employer] sexually active: Yes Smoking Status: Never smoker Electronic Cigarette Use: not used alcohol intake: current alcohol intake frequency: holidays/special occasions only details: social substance use type: does not use caffeine: Yes what type of physical activity do you participate in: none and walking frequency: 1-2 times per week seatbelt use: always do you feel safe at home: Yes additional social history: Single- [employer] EXAM Physical Exam Const Vital Signs: 06/15/22 22:12 06/15/22 23:07 06/15/22 23:52 Temperature 98.8 F Temperature Source Oral Pulse Rate 122 H 107 H Respiratory Rate 20 H 18 Respiratory Effort Normal Non-Labored Short of Breath Respiratory Depth Normal Respiratory Pattern Normal Normal Blood Pressure 127/104 H Blood Pressure Mean 111 Pulse Ox 97 Oxygen Delivery Method Room Air Room Air Positive well nourished and well developed General Appearance ED: well developed and NAD HEENT Reports moist mucous membranes HEENT Narrative: TMs normal bilaterally. normocephalic and atraumatic Throat: Negative for posterior oropharynx abnormal Eyes PERRL and EOMs intact bilaterally Neck no lymphadenopathy, supple and no meningeal signs Resp normal respiratory effort and clear to auscultation bilaterally Resp Narrative: Frequent nonproductive bronchitic cough. No wheezing. Clear to auscultation. Speaking in full sentences when not coughing. Cardio no murmurs Rate: regular rate Rhythm: regular rhythm Back/Spine normal ROM Extremity normal to inspection and full ROM Extremity Narrative: No peripheral edema bilaterally Neuro oriented x3, CN's II-XII intact bilaterally and no sensory deficits noted Sensorium / Orientation: alert Motor Exam: strength 5/5 throughout Skin Lesions: no lesions Rashes: no rashes MDM MDM MDM Narrative Medical decision making narrative: Patient recently had an x-ray but I am not able to review the results or the pictures, it is not in our EMR. Patient was amenable to having repeat, 2 view chest x-ray my interpretation normal, radiology in agreement. Gave her an albuterol/duo nebulizer treatment, she said she felt a lot better with regards to coughing and breathing. She is being undertreated with prednisone, only 20 mg a day for 4 days, she is not a diabetic. I am not sure the utility in that so I am increasing it, advising that she go ahead and take another 20 mg now, since she took 20 earlier today, she will then have 2 tablets left to take tomorrow, and I am going to prescribe her the rest of a taper since she has a viral bronchitis and she likely will continue to have issues for the next week or 2. She is amenable to that, she has a nebulizer machine I will also pr escribe her some albuterol vials to use as needed at home. She is comfortable that overall plan. Radiography Diagnostic Testing: Clinical Impression(s) from Imaging Studies Chest X-Ray 06/15/22 23:37 IMPRESSION: Negative chest radiograph. Electronically Signed: Arias Wills MD at 23:47 EDT Reading Location ID and State: [address] [place] [address] Tel , Service support , Discharge Plan Triage Chief Complaint: Shortness of Breath ED Provider: Landon Doe Dx/Rx/DC Orders Clinical Impression: Acute viral bronchitis, Acute asthma exacerbation Instructions: ED Asthma, Acute (Adult), ED Bronchitis, No Antibiotic (Adult) Prescriptions: New prednisone 10 mg tablet 10 mg PO UD Qty: 26 0RF Rx Instructions: Take 4 tablets daily for 2 days, then 3 daily for 3 days, then 2 daily for 3 days, then 1 a day for 3 days albuterol sulfate 2.5 mg /3 mL (0.083 %) solution for nebulization 2.5 mg inhalation Q4H PRN Qty: 25 0RF Rx Instructions: Use q4 hours and PRN for wheezing No Action bupropion HCl [Wellbutrin XL] 300 mg tablet extended release 24 hr 300 mg PO QAM omeprazole 20 mg capsule,delayed release(DR/EC) 40 mg PO BID Label Comments: TAKE 1 CAPSULE BY MOUTH EVERY DAY albuterol sulfate 90 mcg/actuation HFA aerosol inhaler 2 puff inhalation Q6H PRN (Reason: shortness of breath or wheezing) Qty: 8.5 1RF (DME) blood pressure monitor Kit See Rx Instructions .Route Qty: 1 0RF Rx Instructions: As directed meloxicam 15 mg tablet 15 mg PO .every other day Qty: 45 1RF Rx Instructions: Do not take in conjunction with other NSAIDs. Tylenol is okay. fluoxetine 40 mg capsule 40 mg PO DAILY Qty: 90 1RF dicyclomine 10 mg capsule 10 mg PO TID fluticasone propionate [Flonase Allergy Relief] 50 mcg/actuation spray,suspension 1 spray intranasal DAILY Qty: 16 0RF Rx Instructions: administer into each nostril lisinopril 5 mg tablet 5 mg PO DAILY Qty: 30 2RF Primary Care Provider: Geeta Hickman Referrals: Geeta Hickman MD [Primary Care Provider] - 1 Week if not improving Disposition Disposition: Home, Self Care
--- NOTE | 2022-06-15 23:37 | RAD_ITS ---
STUDY: X-RAY CHEST REASON FOR EXAM: Female, 46 years old. Shortness of breath and cough. TECHNIQUE: PA and lateral COMPARISON: 12/29/2018 CXR FINDINGS: No apparent pneumothorax, pneumonia, pleural effusion, or edema. Cardiac silhouette, noemi and mediastinal contours are within normal limits. No acute osseous abnormality. No evidence of free air under the diaphragm. RAD/Chest PA and Lateral IMPRESSION: Negative chest radiograph. Electronically Signed: Arias Wills MD at 23:47 EDT Reading Location ID and State: [facility] / [place] Tel , Service support ,
[2022-06-15 23:52] VITALS: O2SAT 95
[2022-06-16 01:29] VITALS: PULSE 89; RESP 18; O2SAT 100
== END 2022-06-16 01:32 | disposition home or self-care (01) ==
PROVIDERS: Emergency Provider Emergency Medicine; PCP Internal Medicine; Visit Provider Emergency Medicine
DX: J20.9 Acute bronchitis, unspecified (principal); J02.9 Acute pharyngitis, unspecified; J45.901 Unspecified asthma with (acute) exacerbation; R05.1 Acute cough; M79.604 Pain in right leg; Z79.52 Long term (current) use of systemic steroids
CPT/HCPCS: G0463; 71046; 85379; 87428; 94640; 99252; 99282

== ENCOUNTER → 2022-06-15 | Outpatient (CLI) | payer MEDICAID, SELFPAY ==
[2022-06-15 13:09] LABS: D-Dimer Quantitative (DVT/PE) 0.42 FEU/ug/m (0.27-0.49)
== END | disposition home or self-care (01) ==
LOC: LABSPEC 12:45
PROVIDERS: PCP Internal Medicine; Referring Provider Emergency Medicine; Visit Provider Emergency Medicine
DX: R06.02 Shortness of breath (principal); R05.1 Acute cough; M79.604 Pain in right leg
CPT/HCPCS: 85379

== ENCOUNTER → 2022-07-08 | Outpatient (CLI) | payer MEDICAID, SELFPAY ==
[2022-07-16 16:09] LABS: HPV APTIMA, High Risk Negative (Negative)
== END | disposition home or self-care (01) ==
LOC: LABSPEC 10:54
PROVIDERS: PCP Internal Medicine; Referring Provider Nurse Practitioner Women's Health; Visit Provider Nurse Practitioner Women's Health
DX: Z12.4 Encounter for screening for malignant neoplasm of cervix (principal)
CPT/HCPCS: 87624; 88175; G0145

== ENCOUNTER → 2022-07-10 | Outpatient (CLI) | payer MEDICAID, SELFPAY ==
[2022-07-14 20:08] LABS: B. pertussis IgA 2.3 index (0.0-0.9); B. pertussis IgG 3.46 index (0.00-0.94); B. pertussis IgM < 1.0 index (0.0-0.9)
== END | disposition home or self-care (01) ==
PROVIDERS: PCP Internal Medicine; Referring Provider Nurse Practitioner Acute Care; Visit Provider Nurse Practitioner Acute Care
DX: R05.9 Cough, unspecified (principal)
CPT/HCPCS: 36415; 86615

== ENCOUNTER → 2022-07-13 | Outpatient (CLI) | payer MEDICAID, SELFPAY | END | disposition home or self-care (01) | LOC: PSN 07:22 | PROVIDERS: PCP Internal Medicine; Visit Provider Nurse Practitioner Acute Care | DX: R05.9 Cough, unspecified (principal) | CPT/HCPCS: 87798 ==

== ENCOUNTER → 2022-08-21 | Outpatient (CLI) | payer MEDICAID, SELFPAY ==
--- NOTE | 2022-08-20 | IMM_PTH ---
PATIENT: MARCELINO CARDONA LOC: [facility] U#:[id number] AGE/SX: 46/F ROOM: RE08/21/[address]: Dr. Chrystal Conteh DO : 1975 BED: DIS: 08/21/2022 SPEC #: [id number] RECD: 08/25/22 12:17 STATUS: LAINEY RETelma #: [id number] CARO: 08/20/22 00:[address]: Chrystal Conteh DEPT: IMMUNOHISTOCHEMISTRY RECD BY: Lindsay Wong ENTERED: 08/25/22 12:18 SP TYPE: IMMUNO OTHR DR: Dr. Geeta Hickman MD Tissues: A - Uterine cervix, NOS Procedures: p16 (initial) KI-67 (add) PHYSICIAN & INSTITUTION [facility] [phone] SPECIMEN INFORMATION: Tissue Source: A ? Cervix, 6 o?clock Clinical Info: LGSIL Specimen Number: [id number] CPT code: 46269, 42230 METHODOLOGY: Deparaffinized sections of prefer/formalin-fixed tissue or PAP/DQ stained slides are incubated with monoclonal/polyclonal antibodies/oligonucleotide probes. Localization is made via biotin free immunoperoxidase method. Appropriate controls are performed and reacted as expected. Results on target cell population are indicated in the following table: RESULTS: ANTIBODY / CLONE RESULT Block A P16 (E6H4) negative Ki-67 (30-9) positive, low, basal layer These tests were developed and their performance characteristics determined by [facility]. They may not have been cleared or approved by the U.S. Food and Drug Administration. The FDA has determined that such clearance or approval is not necessary. The above immunohistochemical/dualISH markers are ordered and reviewed by the Pathologist. INTERPRETATION: A. Cervix, 6 o?clock: Focal changes suspicious for HPV cytopathic effects. SJ:serge 08/26/2022
--- NOTE | 2022-08-20 14:30 | CER_PTH ---
PATIENT: MARCELINO CARDONA LOC: [facility]US U#:[id number] AGE/SX: 46/F ROOM: RE08/21/[address]: Dr. Chrystal Conteh DO : 1975 BED: DIS: 08/21/2022 SPEC #: [id number] RECD: 08/20/22 15:32 STATUS: LAINEY SOSATelma #: [id number] CARO: 08/20/22 14:[address]: Chrystal Conteh DEPT: SURGICAL PATHOLOGY RECD BY: Miryam Keller ENTERED: 08/21/22 11:27 SP TYPE: CERV OTHR DR: Dr. Geeta Hickman MD Tissues: A - Uterine cervix, NOS B - Endocervical Procedures: Surgery Specimen Level IV HEADER OPERATION: Colposcopy PRE-OP DIAGNOSIS: LGSIL TISSUE SUBMITTED: A ? Cervix 6 o?clock, B ? Endocervical curettings MICROSCOPIC DIAGNOSIS A. Cervix, 6 o?clock, biopsy: Focal changes suspicious for HPV cytopathic effects. See comment. B. Endocervical curettings: Scant fragments of benign endocervical epithelium and mucous, negative for dysplasia. YULI:serge 08/25/2022 COMMENT A. Immunohistochemistry ([id number]) for surrogate HPV marker (p16) supports the above diagnosis. MICROSCOPIC DESCRIPTION Slides are reviewed. GROSS DESCRIPTION A - Received in fixative is one container labeled with the patient's name and designated 6 o'clock. The specimen consists of one irregular fragment of light pablo soft tissue that measures 0.5 x 0.2 x 0.1 cm. The specimen is totally submitted in one cassette. B - Received is a metallic endoscopic cytobrush with adherent minute fragments of pablo-red tissue brush in 2 ml of clear red fluid and labeled with the patient's name and and designated per the requisition as ECC. The material is dislodged from the brush and submitted for cytology preparation including cell block. / YULI:serge 08/21/2022 TC:5 CPT: 48131 x2
== END | disposition home or self-care (01) ==
PROVIDERS: PCP Internal Medicine; Referring Provider Obstetrics & Gynecology; Visit Provider Obstetrics & Gynecology
DX: R87.612 Low grade squamous intraepithelial lesion on cytologic smear of cervix (LGSIL) (principal)
CPT/HCPCS: 88305; 88341; 88342

== ENCOUNTER → 2022-09-16 | Outpatient (CLI) | payer MEDICAID, SELFPAY ==
--- NOTE | 2022-09-16 13:45 | US_ITS ---
EXAM: US PELVIS TRANSABDOMINAL AND TRANSVAGINAL, COMPLETE CLINICAL INDICATION: pelvic pain TECHNIQUE: Transabdominal and transvaginal pelvic ultrasound was performed with grayscale and color Doppler imaging. Transvaginal imaging was used for better evaluation of the endometrium and adnexa. COMPARISON: No relevant prior studies available. FINDINGS: UTERUS/CERVIX: Uterus is heterogeneous without focal mass. Uterus measures 7.5 x 4.5 x 3.7 cm with endometrial complex measuring 2 mm. Nabothian cysts identified. Anteverted. RIGHT OVARY: Ovaries are both identified and are unremarkable. The right ovary measures 2.4 x 1.2 x 1.6 cm while the left ovary measures 2.1 x 2.1 x 1.8 cm. Blood flow is present in the right ovary. LEFT OVARY: See above. FREE FLUID: No adnexal masses or free fluid in the pelvic cul-de-sac. BLADDER: Bladder volume 180 cc at the time of this evaluation. No wall thickening or intraluminal masses or calculi. US/Pelvic (Non ) IMPRESSION: Limited assessment showing no gross abnormalities. Electronically Signed: Chapincito Sorenson MD at 3:28 EDT ,
== END | disposition home or self-care (01) ==
LOC: OPUS 13:44
PROVIDERS: PCP Internal Medicine; Referring Provider Obstetrics & Gynecology; Visit Provider Obstetrics & Gynecology
DX: R10.2 Pelvic and perineal pain (principal)
CPT/HCPCS: 76830; 76856

== ENCOUNTER → 2023-04-09 | Outpatient (CLI) | payer MEDICAID, SELFPAY ==
--- OUTSIDE RECORDS SUMMARY | 2023-04-09 11:18 | XMS RPT_ITS | CCD ---
Author Name Unknown Address [address] [place] [address] Organization [facility] Care Team Providers Care Project Management Director Name Role Phone Sherron ELLISON, Ashok Reardon Primary Care Provider Vick ELLISON, Rory Rogers Primary Care Provider JENNY Staples Attending Unavailable ASHOK ARAIZA Primary Care Unavailable ASHOK ARAIZA Primary Care Unavailable SADA SALAZAR Referring Unavailable ASHOK ARAIZA Primary Care Unavailable SADA SALAZAR Attending Unavailable ASHOK ARAIZA Primary Care Unavailable RORY HICKMAN Primary Care Unavailable NADIA BOLANOS Referring Unavailable RORY HICKMAN Primary Care Unavailable NADIA BOLANOS Referring Unavailable RORY HICKMAN Primary Care Unavailable RORY HICKMAN Primary Care Unavailable ASHOK ARAIZA Primary Care Unavailable SADA SALAZAR Referring Unavailable SADA SALAZAR Referring Unavailable ASHOK ARAIZA Primary Care Unavailable AWAIS MCNAIR Attending Unavailable AHSOK ARAIZA Primary Care Unavailable SADA SALAZAR Referring Unavailable ASHOK ARAIZA Primary Care Unavailable Kevin Jin MD Primary Care Provider Ashley Marcelino APRN, CNP Primary Care Provider Kevin Jin MD Primary Care Provider Ashley Marcelino APRN, CNP Primary Care Provider KEVIN JIN Primary Care Unavailable ASHLEY OLIVERA Attending Unavailable KEVIN JIN Primary Care Unavailable ASHLEY OLIVERA Attending Unavailable ASHLEY OLIVERA Referring Unavailable KEVIN JIN Primary Care Unavailable FRIEND, TANNA Attending Unavailable FRIEND, TANNA Referring Unavailable ASHLEY OLIVERA Primary Care Unavailable ASHLEY OLIVERA Attending Unavailable KEVIN JIN Primary Care Unavailable Allergies Allergy Classification Reported Allergen(s) Allergy Type Date of Onset Reaction(s) Facility (20 sources) Ofloxacin; Translations: [OFLOXACIN] Drug Allergy 01-27-2019 [facility] Work Phone: Medications Current Medications Medication Drug Class(es) Dates Sig (Normalized) Sig (Original) 24 hr buPROPion hydrochloride 300 mg extended release oral tablet (20 sources) Aminoketone Start: 11-24-2018 End: 12-30-2022 take 1 tablet by mouth once daily buPROPion XL (Wellbutrin XL) 300 MG 24 hr tablet Indications: Depressive disorder , Anxiety Take 1 tablet (300 mg) by mouth daily. Do not crush, chew, or split. 90 tablet 1 12/30/2022 Active Completed/Discontinued Medications Medication Drug Class(es) Dates Sig (Normalized) Sig (Original) [id number] 200 actuat albuterol 0.09 mg/actuat metered dose inhaler (20 sources) beta2-Adrenergic Agonist Start: 03-01-2014 take 2 puff(s) by inhalation every four hours as needed for wheezing albuterol HFA (PROAIR HFA) 90 mcg/actuation inhaler Indications: Wheezing Inhale 2 Puffs as instructed every 4 hours as needed for Wheezing/Shortnes s of Breath. 3 Inhaler 3 03/01/2014 Active Problems Active Problems Problem Classification Problem Date Documented Da te Episodic/Chronic Anxiety disorders (20 sources) Anxiety; Translations: [Anxiety disorder, unspecified] Onset: 0 03-24-2021 Chronic Asthma (20 sources) Reactive airway disease; Translations: [Unspecified asthma, uncomplicated] Onset: 3 03-24-2021 Chronic Esophageal disorders (15 sources) Gastroesophageal reflux disease; Translations: [Gastro-esophageal reflux disease without esophagitis] Onset: 3 10-30-2022 Chronic Essential hypertension (16 sources) Essential hypertension; Translations: [Essential (primary) hypertension] Onset: 3 10-30-2022 Chronic Genitourinary symptoms and ill-defined conditions (1 source) Scalding pain on urination ; Translations: [Dysuria] Episodic Mood disorders (20 sources) Depressive disorder; Translations: [Other specified depressive episodes] Onset: 8 03-21-2010 Chronic Mood disorders (2 sources) Mood disorders; Translations: [Depression, unspecified] Onset: 3 Nutritional deficiencies (15 sources) Vitamin D deficiency; Translations: [Vitamin D deficiency, unspecified] Onset: 2 10-30-2022 Chronic Osteoarthritis (15 sources) Bilateral osteoarthritis of knees; Translations: [Bilateral primary osteoarthritis of knee] Onset: 3 10-30-2022 Chronic Other and unspecified benign neoplasm (15 sources) Dysplastic nevus of skin; Translations: [Melanocytic nevi, unspecified] 03-24-2021 Episodic Other connective tissue disease (2 sources) Pain in right lower limb; Translations: [Pain in right leg] Episodic Other connective tissue disease (1 source) Pain of right calf; Translations: [Pain in right lower leg] 10-30-2022 Episodic Other gastrointestinal disorders (20 sources) Irritable bowel syndrome; Translations: [Irritable bowel syndrome without diarrhea] Onset: 3 03-24-2021 Chronic Other gastrointestinal disorders (2 sources) Irritable bowel syndrome with diarrhea; Translations: [Irritable bowel syndrome with diarrhea] Onset: 3 10-30-2022 Chronic Other gastrointestinal disorders (2 sources) Irritable bowel syndrome without diarrhea; Translations: [Irritable bowel syndrome without diarrhea] Onset: 3 Chronic Other gastrointestinal disorders (1 source) Irritable bowel syndrome with diarrhea; Translations: [Irritable bowel syndrome with diarrhea] Onset: 3 Chronic Other gastrointestinal disorders (3 sources) Abdominal bloating; Translations: [Abdominal distension (gaseous)] Episodic Other injuries and conditions due to external causes (3 sources) Injury of left knee; Translations: [Unspecified injury of left lower leg, initial encounter] 12-16-2022 Episodic Other lower respiratory disease (1 source) Cough; Translations: [Acute cough] Episodic Other lower respiratory disease (1 source) Dyspnea; Translations: [Shortness of breath] Episodic Other nutritional; endocrine; and metabolic disorders (20 sources) Obesity; Translations: [Obesity, unspecified] Onset: 8 03-21-2010 Chronic Other nutritional; endocrine; and metabolic disorders (15 sources) Cholesterol level - finding; Translations: [Lipoprotein deficiency] Onset: 1 10-16-2010 Chronic Other nutritional; endocrine; and metabolic disorders (2 sources) Other obesity due to excess calories; Translations: [Other obesity due to excess calories] Onset: 3 Chronic Other nutritional; endocrine; and metabolic disorders (2 sources) Body mass index (BMI) 33.0-33.9, adult; Translations: [Body mass index (BMI) 33.0-33.9, adult] Onset: 3 Chronic Unclassified (1 source) Acute cough; Translations: [Acute cough] Onset: 3 Past or Other Problems Problem Classification Problem Date Documented Da te Episodic/Chronic Abdominal pain (6 sources) Left upper quadrant pain; Translations: [Left upper quadrant pain] Onset: 03-19-2022 Episodic Administrative/social admission (5 sources) Patient encounter status; Translations: [Persons encountering health services in other specified circumstances] Onset: 10-30-2022 10-30-2022 Episodic Cancer of cervix (12 sources) Low grade squamous intraepithelial lesion on cervical Papanicolaou smear; Translations: [Low grade squamous intraepithelial lesion on cytologic smear of cervix (LGSIL)] Onset: 10-07-2022 Resolved: 10-30-2022 10-30-2022 Episodic Conditions associated with dizziness or vertigo (15 sources) Vestibular nerve disorder; 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, unspecified ear] Onset: 06-15-2013 06-15-2013 Episodic Diabetes mellitus without complication (15 sources) Impaired fasting glycemia; Translations: [Impaired fasting glucose] Onset: 06-02-2007 03-21-2010 Episodic E Codes: Fall (5 sources) Falling injury; Translations: [Unspecified fall, initial encounter] Onset: 12-16-2022 12-16-2022 Episodic Headache; including migraine (15 sources) Headache; Translations: [Headache] Onset: 06-15-2013 06-15-2013 Episodic Immunizations and screening for infectious disease (4 sources) Requires diphtheria, tetanus and pertussis vaccination; Translations: [Encounter for immunization] Onset: 12-16-2022 10-30-2022 Episodic Other connective tissue disease (15 sources) Muscle pain; Translations: [Myalgia and myositis, unspecified] Onset: 06-15-2013 06-15-2013 Episodic Other connective tissue disease (1 source) Pain in right leg; Translations: [Right leg pain] Onset: 06-15-2022 Episodic Other connective tissue disease (2 sources) Pain in right lower leg; Translations: [Pain in right lower leg] Onset: 10-30-2022 Episodic Other gastrointestinal disorders (1 source) Abdominal distension (gaseous); Translations: [Bloating] Onset: 03-04-2022 Episodic Other injuries and conditions due to external causes (2 sources) Unspecified injury of left lower leg, initial encounter; Translations: [Unspecified injury of left lower leg, initial encounter] Onset: 12-16-2022 Episodic Other lower respiratory disease (1 source) Shortness of breath; Translations: [SOB (shortness of breath)] Onset: 06-15-2022 Episodic Other screening for suspected conditions (not mental disorders or infectious disease) (4 sources) Encounter for screening for lipoid disorders; Translations: [Encounter for screening for diabetes mellitus] Onset: 10-30-2022 Episodic Spondylosis; intervertebral disc disorders; other back problems (15 sources) Neck pain; Translations: [Cervicalgia] Onset: 06-15-2013 06-15-2013 Episodic Sprains and strains (15 sources) Sprain of foot; Translations: [Unspecified sprain of unspecified foot, initial encounter] Onset: 11-04-2007 03-21-2010 Episodic Results Test Name Value Interpretation Reference Range Facil ity Vital Signs Date Time Vital Sign Value Performing Clinician Dieudonne roldan 12-16-2022 10:39-0400 Body height 172.7 cm Ashley Olivera [email or web address] Work Phone: [facility] 12-16-2022 10:39-0400 Body mass index (BMI) [Ratio] 33.3 kg/m2 Ashley Olivera [email or web address] Work Phone: [facility] 12-16-2022 10:39-0400 Body weight 99.34 kg Ashley Olivera [email or web address] Work Phone: [facility] 12-16-2022 10:39-0400 Diastolic blood pressure 72 mm[Hg] Ashley Olivera [email or web address] Work Phone: [facility] 12-16-2022 10:39-0400 Heart rate 78 /min Ashley Olivera [employer] SENSOR SPECIALIST - GIFTED PROGRAM TEACHER Work Phone: [facility] [employer] 12-16-2022 10:39-0400 SaO2% (BldA) [Mass fraction] 97 % Ashley Olivera [employer] SENSOR SPECIALIST - GIFTED PROGRAM TEACHER Work Phone: [employer] 12-16-2022 10:39-0400 Systolic blood pressure 124 mm[Hg] Ashley Olivera [employer] SENSOR SPECIALIST - GIFTED PROGRAM TEACHER Work Phone: [employer] 10-30-2022 07:50-0400 Body height 172.7 cm Ashley Olivera [employer] SENSOR SPECIALIST - GIFTED PROGRAM TEACHER Work Phone: [employer] 10-30-2022 07:50-0400 Body mass index (BMI) [Ratio] 33.3 kg/m2 Ashley Olivera [employer] S[employer]OR SPECIALIST - GIFTED PROGRAM TEACHER Work Phone: [facility] 10-30-2022 07:50-0400 Body weight 99.34 kg Ashley Olivera [employer] S[employer]OR SPECIALIST - GIFTED PROGRAM TEACHER Work Phone: [employer] 10-30-2022 07:50-0400 Diastolic blood pressure 66 mm[Hg] Ashley Olivera [employer] SENSOR SPECIALIST - GIFTED PROGRAM TEACHER Work Phone: [employer] 10-30-2022 07:50-0400 Heart rate 80 /min Ashley Olivera [employer] S[employer]OR SPECIALIST - GIFTED PROGRAM TEACHER Work Phone: [facility] 10-30-2022 07:50-0400 SaO2% (BldA) [Mass fraction] 98 % Ashley Olivera [employer] SENSOR SPECIALIST - GIFTED PROGRAM TEACHER Work Phone: [facility] 10-30-2022 07:50-0400 Systolic blood pressure 118 mm[Hg] Ashley Olivera [employer] SENSOR SPECIALIST - GIFTED PROGRAM TEACHER Work Phone: [facility] [employer] 06-15-2022 11:05-0400 Body temperature 97.81 [degF] Nadia Bolanos PA-C Work Phone: [facility] 06-15-2022 11:05-0400 Body weight 109.77 kg Nadia Bogner PA-C Work Phone: [facility] 06-15-2022 11:05-0400 Diastolic blood pressure 78 mm[Hg] Nadia Bogner PA-C Work Phone: [facility] 06-15-2022 11:05-0400 Heart rate 110 /min Nadia Bogner PA-C Work Phone: [facility] 06-15-2022 11:05-0400 Respiratory rate 20 /min Nadia Bogner PA-C Work Phone: [facility] 06-15-2022 11:05-0400 SaO2% (BldA) [Mass fraction] 96 % Nadia Bogner PA-C Work Phone: [facility] 06-15-2022 11:05-0400 Systolic blood pressure 136 mm[Hg] Nadia Bogner PA-C Work Phone: [facility] 01-05-2022 19:00-0400 Body temperature 98.2 [degF] Ashley Owens APRN.GIFTED PROGRAM TEACHER Work Phone: [facility] 01-05-2022 19:00-0400 Body weight 108.32 kg Ashley Owens APRN.GIFTED PROGRAM TEACHER Work Phone: [facility] 01-05-2022 19:00-0400 Diastolic blood pressure 86 mm[Hg] Ashley Owens APRN.GIFTED PROGRAM TEACHER Work Phone: [facility] 01-05-2022 19:00-0400 Heart rate 89 /min Ashley Owens APRN.GIFTED PROGRAM TEACHER Work Phone: [facility] 01-05-2022 19:00-0400 Respiratory rate 20 /min Ashley Owens APRN.GIFTED PROGRAM TEACHER Work Phone: [facility] 01-05-2022 19:00-0400 SaO2% (BldA) [Mass fraction] 98 % Ashley Owens APRN.GIFTED PROGRAM TEACHER Work Phone: [facility] 01-05-2022 19:00-0400 Systolic blood pressure 128 mm[Hg] Ashley Roman [employer] SENSOR SPECIALIST.GIFTED PROGRAM TEACHER Work Phone: [facility] Encounters Encounter Date Encounter Type Care Provider Facility Start: 03-08-2023 Orders Only Ashley Olivera [employer] SENSOR SPECIALIST - GIFTED PROGRAM TEACHER Work Phone: [facility] Start: 12-30-2022 Refill Kevin Jin MD Work Phone: [facility] Procedures Date Procedure Procedure Detail Performing Clinician Start: 11-20-2022 Gastric emptying bipin ging study Tanna Friend Work Phone: Start: 11-11-2022 HOUSE ACCOUNT TRACKI TONY (QUEST) [facility] Work Phone: Start: 10-30-2022 Lipid 1996 panel - S mansi or Plasma [facility] Work Phone: Start: 07-16-2022 HM PAP SMEAR Historical Provider Work Phone: Start: 07-16-2022 Microscopic observat ion [Identifier] in Cervix by Cyto stain Ashley Olivera [employer] S[employer]OR SPECIALIST - GIFTED PROGRAM TEACHER Work Phone: Start: 06-15-2022 Dup-scan xtr veins unilateral/limited study Nadia Bolanos PA-C Work Phone: Start: 04-29-2022 Mammography Ashley martinez [employer] S[employer]OR SPECIALIST - GIFTED PROGRAM TEACHER Work Phone: Start: 03-12-2022 Breath hydrogen/meth ane test Sada Salazar MD Work Phone: Start: 03-04-2022 Breath hydrogen/meth ane test Sada Salazar MD Work Phone: Start: 01-05-2022 Urnls dip stick/tabl et rgnt auto w/o microscopy Lee Rios [employer] SENSOR SPECIALIST.GIFTED PROGRAM TEACHER Work Phone: Start: 11-07-2020 HM COLONOSCOPY Historic al Provider Work Phone: Start: 11-07-2020 Colonoscopy Ashley Owens [employer] SENSOR SPECIALIST.GIFTED PROGRAM TEACHER Work Phone: Start: 02-23-2014 Lipid 1996 panel - S mansi or Plasma [facility] Work Phone: Plan of Treatment Date Care Activity Detail Author Start: 2036 RSV Immunization aged 60 or older (1 - 1-dose 60+ series) RSV Immunization aged 60 or older (1 - 1-dose 60+ series) [facility] Start: 10-30-2032 DTaP/Tdap/Td Vaccines (2 - Td or Tdap) DTaP/Tdap/Td Vaccines (2 - Td or Tdap) [facility] Start: 11-07-2030 Screening for malignant neoplasm of colon [facility] Start: 10-31-2027 Lipid panel Lipid Panel [facility] Start: 2026 Zoster Vaccines (1 of 2) Zoster Vaccines (1 of 2) [facility] Start: 11-11-2025 Diabetes mellitus screening Diabetes Screening [facility] Start: 07-16-2025 Screening for malignant neoplasm of cervix [facility] Start: 10-17-2023 DIABETES SCREEN DIABETES SCREEN [facility] Start: 10-17-2023 Diabetes Screening Diabetes Screening [facility] Start: 05-05-2023 End: 05-05-2023 Patient encounter procedure [facility] Start: 05-01-2023 Depresssion Monitoring Depresssion Monitoring [facility] Start: 04-29-2023 Screening for malignant neoplasm of breast Mammogram [facility] Start: 12-16-2022 End: 12-17-2023 XR Knee - left 4 Views [facility] Work Phone: Immunizations Immunization Date Immunization Notes Care Provider Eben castanon 12-16-2022 Seasonal, quadrivale nt, recombinant, injectable influenza vaccine, preservative free Ashley Olivera [employer] S[employer]OR SPECIALIST - GIFTED PROGRAM TEACHER Work Phone: [facility] 10-30-2022 tetanus toxoid, redu katy diphtheria toxoid, and acellular pertussis vaccine, adsorbed Ashley Olivera [employer] S[employer]OR SPECIALIST - GIFTED PROGRAM TEACHER Work Phone: [facility] 07-29-2021 hepatitis B vaccine, adult dosage Ashley Olivera [employer] S[employer]OR SPECIALIST - GIFTED PROGRAM TEACHER Work Phone: [facility] 02-28-2021 hepatitis B vaccine, adult dosage Ashley Olivera [employer] S[employer]OR SPECIALIST - GIFTED PROGRAM TEACHER Work Phone: [facility] 02-11-2021 Moderna SARS-CoV-2 Vaccination Ashley Olivera [employer] S[employer]OR SPECIALIST - GIFTED PROGRAM TEACHER Work Phone: [facility] 01-28-2021 hepatitis B vaccine, adult dosage Ashley Olivera [employer] S[employer]OR SPECIALIST - GIFTED PROGRAM TEACHER Work Phone: [facility] 01-28-2021 influenza, seasonal, injectable, preservative free Ashley Olivera [employer] SENSOR SPECIALIST - GIFTED PROGRAM TEACHER Work Phone: [facility] 01-28-2021 influenza virus vaccine, unspecified formulation Ashley Olivera [employer] S[employer]OR SPECIALIST - GIFTED PROGRAM TEACHER Work Phone: [facility] 07-12-2020 COVID-19 vaccine, fu ll dose (MODERNA) Sada Salazar MD Work Phone: [facility] Work Phone: 06-13-2020 COVID-19 vaccine, fu ll dose (MODERNA) Sada Salazar MD Work Phone: [facility] Work Phone: 01-12-2020 influenza, injectabl e, quadrivalent, preservative free Ashley Oilvera [employer] S[employer]OR SPECIALIST - GIFTED PROGRAM TEACHER Work Phone: [facility] 12-22-2018 influenza, seasonal, injectable Sada Salazar MD Work Phone: [facility] 12-24-2016 influenza, seasonal, injectable Sada Salazar MD Work Phone: [facility] 03-01-2014 influenza, seasonal, injectable Sada Salazar MD Work Phone: [facility] 02-20-2013 influenza virus vaccine, unspecified formulation Sada Salazar MD Work Phone: [facility] Work Phone: 04-29-2011 tetanus toxoid, redu katy diphtheria toxoid, and acellular pertussis vaccine, adsorbed Sada Salazar MD Work Phone: [facility] Work Phone: 01-22-2011 influenza virus vaccine, unspecified formulation Sada Salazar MD Work Phone: [facility] Work Phone: 01-23-2010 influenza virus vaccine, unspecified formulation Sada Salazar MD Work Phone: [facility] 03-12-2009 novel [id number], all formulations Sada Salazar MD Work Phone: [facility] Work Phone: 12-22-2008 influenza virus vaccine, unspecified formulation Sada Salazar MD Work Phone: [facility] Work Phone: 02-03-2008 influenza virus vaccine, unspecified formulation Sada Salazar MD Work Phone: [facility] Work Phone: 01-24-2007 influenza virus vaccine, unspecified formulation Sada Salazar MD Work Phone: [facility] Work Phone: 02-01-2006 influenza virus vaccine, unspecified formulation Sada Salazar MD Work Phone: [facility] Work Phone: Payers Date Payer Category Payer Unknown [employer] [id number] 2022-Present [address] [place] [address] Commercial [id number] 2022 Unknown [id number] 2022 Medicaid [id number] 2020 Medicaid [employer] [id number] 2020-Present [phone] [address] [place] [address] Medicaid [id number] 2020 Medicaid [id number] 2020 Medicaid [id number] Social History Date Type Detail Facility Start: 01-05-2022 End: 10-29-2022 Tobacco smoking status NHIS Never smoked tobacco [facility] Start: 12-31-2020 End: 12-16-2022 Alcohol intake Current drinker of alcohol (finding) [facility] Start: 10-10-2020 History SDOH Alcohol Frequency 3 [facility] Start: 10-10-2020 History SDOH Alcohol Std Drinks 1 [facility] Start: 12-31-2020 History SDOH Alcohol Comment socially [facility] Start: 10-10-2020 History SDOH Social Connections Phone 5 [facility] Start: 10-10-2020 History SDOH Social Connections Congregation 2 [facility] Start: 10-10-2020 History SDOH Stress 4 [facility] Start: 10-10-2020 Education 12 [facility] Start: 1975 Sex Assigned At Female C [facility] Start: 01-05-2022 End: 10-29-2022 Tobacco use and exposure Smokeless tobacco non-user [facility] Start: 01-25-2022 End: 12-16-2022 Exposure to SARS-CoV-2 (event) Not sure [facility] Start: 06-15-2022 End: 10-29-2022 History of Social function [facility] Start: 06-15-2022 End: 10-29-2022 Tobacco use panel [facility] National Score (1-10 0), lower number is lower risk 81 [facility] Start: 02-27-2021 Gender identity Identifies as female gender (finding) [facility] Start: 02-27-2021 Sexual orientation Heterosexual (hiro evans) [facility] How often to you hav e a drink containing alcohol? Monthly or less [facility] How many standard dr inks containing alcohol do you have on a typical day? 1 or 2 [facility] How often do you hav e 6 or more drinks on 1 occasion? Never [facility] (I/We) worried wheth er (my/our) food would run out before (I/we) got money to buy more. Never true [facility] In the past 12 month s, was there a time when you were not able to pay the mortgage or rent on time? No [facility] Start: 10-29-2022 Alcohol Comment on occasion [facility] Start: 1975 Sex Assigned At Not on file [facility] Do you belong to any clubs or organizations such as mormon groups, unions, fraternal or athletic groups, or school groups? Yes [facility] Are you now , , , , never or living with a partner? [facility] How often to you hav e a drink containing alcohol? 2-4 times a month [facility] Do you feel stress - tense, restless, nervous, or anxious, or unable to sleep at night because your mind is troubled all the time - these days [OSQ] Rather much [facility] Clinical Notes 10-01-2021 to 12-30-2022 Telephone Encounter - TERE Chung CNP - 12/30/2022 1:42 PM EDTTelephone Encounter - TERE Chung CNP - 12/30/2022 1:42 PM EDTHTERE uY CNP - 12/16/2022 11:00 AM EDT Note Date & Type Note Facility 12-30-2022 Telephone encounter Note Rx sent. Follow up as scheduled. [facility] 12-30-2022 Miscellaneous Notes Rx sent. Follow up as scheduled. Prescription Request: Last medication check: none Last physical exam: 10/30/22 Next scheduled appointment: 05/05/23 Last date of refill on this medication we have not prescribed this pt was new on 10/30/22 documented in this encounter [facility] 12-30-2022 Telephone encounter Note Prescription Request: Last medication check: none Last physical exam: 10/30/22 Next scheduled appointment: 05/05/23 Last date of refill on this medication we have not prescribed this pt was new on 10/30/22 [facility] 12-16-2022 History of Presen t illness Narrative Images from the original note were not included. 12/16/2022 Sammie Araiza (: 1975) is a 46 y.o. female , Established patient, here for evaluation of the following chief complaint(s): Fall and Knee Pain (Left knee pain) ASSESSMENT/PLAN: 1. Injury due to fall, initial encounter - XR knee 4+ views left - traMADol (Ultram) 50 MG tablet; Take 1 tablet (50 mg) by mouth every 6 hours as needed for severe pain (7-10) for up to 5 days., Starting Wed12/16/2022, Until Wed12/21/2022 at 2359, Normal - Will obtain imaging for further evaluation. - Small, short-term supply of Tramadol given for pain relief. OARRS report reviewed with no discrepancies. CSA signed today. 2. Left knee injury, initial encounter - XR knee 4+ views left - traMADol (Ultram) 50 MG tablet; Take 1 tablet (50 mg) by mouth every 6 hours as needed for severe pain (7-10) for up to 5 days., Starting Wed12/16/2022, Until Wed12/21/2022 at 2359, Normal 3. Flu vaccine need - Flu vaccine, quadrivalent, recombinant, preservative free Follow up for follow up pending x-ray results. SUBJECTIVE/OBJECTIVE: JUSTO Cochran presents today with concerns of a left knee injury. States she was walking barefoot in her garage on Wednesday last week and slipped on a wet spot and landed directly on the left knee. Denies a twisting injury when she fell. Has been taking Extra Strength Tylenol OTC and her daily Meloxicam for pain and it has not been helpful. Denies hitting her head or losing consciousness when she fell. States it hurts to bear weight on her left leg. Feels like her left knee is not stable and cannot put her full weight on it. Is able to walk, but again does not feel stable. Denies locking or catching. Has some numbness and tingling around the knee. Denies pain radiating down or up her left leg. Denies history of left knee injuries or surgeries. Health Maintenance: Would like her flu vaccination. Review of Systems Musculoskeletal: Positive for arthralgias (left knee) and joint swelling (left knee). Skin: Positive for color change (left knee). Vitals: 12/16/22 1039 BP: 124/72 Pulse: 78 SpO2: 97% Weight: 219 lb (99.3 kg) Height: 5' 8 (1.727 m) Body mass index is 33.3 kg/m . Physical Exam Constitutional: General: She is not in acute distress. Appearance: She is not ill-appearing or diaphoretic. Pulmonary: Effort: Pulmonary effort is normal. Musculoskeletal: Right knee: Normal. Left knee: Swelling and ecchymosis present. No deformity or effusion. Decreased range of motion. Tenderness present. No LCL laxity, MCL laxity, ACL laxity or PCL laxity.Normal alignment. Normal pulse. Skin: General: Skin is warm and dry. Neurological: Mental Status: She is alert and oriented to person, place, and time. Psychiatric: Mood and Affect: Mood normal. Behavior: Behavior normal. Thought Content: Thought content normal. Judgment: Judgment normal. An electronic signature was used to authenticate this note. TERE Chung CNP 12/16/2022 11:05 AM After obtaining consent, and per orders of Ashley GRIMALDO, injection of 0.5ml flu vaccine given in right deltoid by Dione Lemus. Patient instructed to report any adverse reaction immediately. documented in this encounter [facility] 11-23-2022 Telephone encounter Note Rx sent. Follow up as scheduled. [facility] 11-23-2022 Miscellaneous Notes Rx sent. Follow up as scheduled. Prescription Request: Last medication check: none Last physical exam: 10/30/22 Next scheduled appointment: 05/05/23 Last date of refill on this medication we have not filled this for her yet. documented in this encounter [facility] 11-23-2022 Telephone encounter Note Prescription Request: Last medication check: none Last physical exam: 10/30/22 Next scheduled appointment: 05/05/23 Last date of refill on this medication we have not filled this for her yet. [facility] 10-30-2022 Telephone encounter Note Updating HM for colonoscopy 11/07/20 and pap 07/16/22 [facility] 10-30-2022 Miscellaneous Notes Updating HM for colonoscopy 11/07/20 and pap 07/16/22 documented in this encounter [facility] 10-30-2022 History of Presen t illness Narrative Images from the original note were not included. Patient Sammie Ariaza 46 y.o. female, presents today with Chief Complaint Patient presents with [facility] Care thigh pain Health Maintenance Hep C--has had before, HIV--has had before, Cervical--07/08/22 came back abnormal,had Colposcopy 08/20/22 Everything came back okay -next Appointment 07/14/2023 , Colon--11/07/20 go every 5 years because of history. Actually Have an Appointment 11/06/22 w/Dr Carter for check up. , Mammo--04/29/22, MMR--had vaccines as a kid, Tdap--needs to check dates, COVID 4--has not had . HPI- Sammie Araiza presents today to establish care and for her annual physical. Previous PCP was Dr. Murphy through [facility] in [place]. Does follow up with other specialists- Dr. Nava (GI in [place]), Traffic Maintenance Supervisor- Dr. Juárez ([place]), Dr. Ashley Fair (Urology in [place]), Dr. Marshall (Pulmonology), Dr. Lim (Dermatology). Past medical history is positive for: asthma (uses Albuterol as needed), hypertension (takes Lisinopril daily), arthritis (on daily Meloxicam), GERD (taking daily Protonix), IBS-D (takes Bentyl), vitamin d deficiency, obesity (has lost 23 pounds via healthier eating and being more active over the past 6 months), depression and anxiety (taking daily Prozac and Wellbutrin). Has concerns regarding chronic right calf pain. Denies muscle cramping. Described the pain as aching. Denies skin discoloration, swelling, or injury to the area. The pain can wake her up at night. Would like to have her TSH level checked while she is here today as well. Health Maintenance: Will sign for a release of records from previous PCP to see what she may be due for. Last Tdap was in April of 2011- would like a Tdap vaccination today. See ROS for additional information. 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 10/07/2022 No past surgical history on file. No family history on file. Social History Socioeconomic History Marital status: Spouse name: Not on file Number of children: Not on file Years of education: Not on file Highest education level: Not on file Occupational History Not on file Tobacco Use Smoking status: Never Smokeless tobacco: Never Vaping Use Vaping Use: Never used Substance and Sexual Activity Alcohol use: Yes Comment: on occasion Drug use: Never Sexual activity: Not on file Other Topics Concern Not on file Social History Narrative Not on file Social Determinants of Health Financial Resource Strain: Low Risk (10/29/2022) Overall Financial Resource Strain (CARDIA) Difficulty of Paying Living Expenses: Not hard at all Food Insecurity: No Food Insecurity (10/29/2022) Hunger Vital Sign Worried About Running Out of Food in the Last Year: Never true Ran Out of Food in the Last Year: Never true Transportation Needs: No Transportation Needs (10/29/2022) PRAPARE - Transportation Lack of Transportation (Medical): No Lack of Transportation (Non-Medical): No Physical Activity: Not on file Stress: Not on file Social Connections: Not on file Intimate Partner Violence: Not on file Housing Stability: Unknown (10/29/2022) Housing Stability Vital Sign Unable to Pay for Housing in the Last Year: No Number of Places Lived in the Last Year: Not on file Unstable Housing in the Last Year: No Health Maintenance Topic Date Due Lipid Panel Never done HIV Screening Never done Colorectal Cancer Screening Never done MMR Vaccines (1 of 1 - Standard series) Never done Hepatitis C Screening Never done Diabetes Screening Never done DTaP/Tdap/Td Vaccines (1 - Tdap) Never done Cervical Cancer Screening Never done COVID-19 Vaccine (4 - Booster for Moderna series) 04/08/2021 Influenza Vaccine (1) 11/27/2022 Mammogram 04/29/2023 Depresssion Monitoring 05/01/2023 Zoster Vaccines (1 of 2) 2026 Hepatitis B Vaccines Completed HIB Vaccines Aged Out IPV Vaccines Aged Out Hepatitis A Vaccines Aged Out Meningococcal Vaccine Aged Out Rotavirus Vaccines Aged Out HPV Vaccines Aged Out Pneumococcal Vaccine: Pediatrics (0 to 5 Years) and At-Risk Patients (6 to 64 Years) Aged Out Allergies Allergen Reactions Ofloxacin Swelling Severe swelling Review of Systems Constitutional: Negative for chills and fever. HENT: Negative for hearing loss and trouble swallowing. Eyes: Negative for pain and visual disturbance. Respiratory: Negative for cough, chest tightness, shortness of breath and wheezing. Cardiovascular: Negative for chest pain, palpitations and leg swelling. Gastrointestinal: Negative for abdominal distention, abdominal pain and blood in stool. Endocrine: Negative for cold intolerance, heat intolerance, polydipsia, polyphagia and polyuria. Genitourinary: Negative for dysuria and hematuria. Musculoskeletal: Positive for arthralgias and myalgias (right calf). Negative for gait problem and joint swelling. Skin: Negative for color change, pallor, rash and wound. Neurological: Negative for dizziness, syncope, weakness and headaches. Hematological: Does not bruise/bleed easily. Psychiatric/Behavioral: Negative for dysphoric mood, self-injury and suicidal ideas. The patient is not nervous/anxious. BP 118/66 Pulse 80 Ht 5' 8 (1.727 m) Wt 219 lb (99.3 kg) SpO2 98% BMI 33.30 kg/m Physical Exam Constitutional: General: Not in acute distress. Appearance: Not ill-appearing or diaphoretic. HENT: Head: Normocephalic and atraumatic. Right Ear: Tympanic membrane, ear canal and external ear normal. Left Ear: Tympanic membrane, ear canal and external ear normal. Nose: Nose normal. No congestion or rhinorrhea. Mouth/Throat: Mouth: Mucous membranes are moist. Pharynx: Oropharynx is clear. No oropharyngeal exudate or posterior oropharyngeal erythema. Eyes: General: No scleral icterus. Extraocular Movements: Extraocular movements intact. Pupils: Pupils are equal, round, and reactive to light. Neck: Thyroid: No thyroid mass or thyromegaly. Vascular: No carotid bruit. Cardiovascular: Rate and Rhythm: Normal rate and regular rhythm. Pulses: Normal pulses. Heart sounds: Normal heart sounds. No murmur heard. No friction rub. Pulmonary: Effort: Pulmonary effort is normal. Breath sounds: Normal breath sounds. No wheezing, rhonchi or rales. Abdominal: General: Bowel sounds are normal. There is no distension. Palpations: Abdomen is soft. There is no hepatomegaly, splenomegaly or mass. Tenderness: There is no abdominal tenderness. Protuberant abdomen impairing examination. Musculoskeletal: Cervical back: Normal range of motion and neck supple. Right lower leg: No edema. Right calf tenderness with deep palpation. Negative for edema, erythema, or palpable nodule. Normal ROM. Left lower leg: No edema. Lymphadenopathy: Cervical: No cervical adenopathy. Skin: General: Skin is warm and dry. Coloration: Skin is not jaundiced or pale. Findings: No erythema. Neurological: Mental Status: She is alert and oriented to person, place, and time. Motor: No weakness, tremor or abnormal muscle tone. Coordination: Coordination normal. Gait: Gait normal. Psychiatric: Mood and Affect: Mood normal. Behavior: Behavior normal. Thought Content: Thought content normal. Judgment: Judgment normal. Assessment & Plan: 1. Well adult exam - Encouraged a healthy diet low in cholesterol and saturated fats. - Encouraged regular exercise. 2. Encounter to establish care 3. Mild intermittent asthma without complication - CBC - Comprehensive metabolic panel - Stable with PRN Albuterol. Will continue current treatment plan. 4. Primary hypertension - CBC - Comprehensive metabolic panel - Stable with Lisinopril. Will continue current treatment plan. 5. Osteoarthritis of both knees, unspecified osteoarthritis type - CBC - Comprehensive metabolic panel - Stable with Meloxicam. Will continue current treatment plan. 6. Gastroesophageal reflux disease, unspecified whether esophagitis present - CBC - Comprehensive metabolic panel - Stable with Protonix. Will continue current treatment plan. 7. Irritable bowel syndrome with diarrhea - CBC - Comprehensive metabolic panel - Stable with Bentyl. Will continue current treatment plan. 8. Vitamin D deficiency - CBC - Comprehensive metabolic panel - Vitamin D Deficiency Screening (Vit D 25) - Will notify of blood work results and provide recommendations accordingly. 9. Class 1 obesity due to excess calories without serious comorbidity with body mass index (BMI) of 33.0 to 33.9 in adult - CBC - Comprehensive metabolic panel - TSH - Encouraged continuation of a healthy diet and regular activity. 10. Depressive disorder - CBC - Comprehensive metabolic panel - TSH - Stable with Fluoxetine and Wellbutrin. Will continue current treatment plan. 11. Anxiety - CBC - Comprehensive metabolic panel - TSH - Stable with Fluoxetine and Wellbutrin. Will continue current treatment plan. 12. Right calf pain - CBC - Comprehensive metabolic panel - Home exercises/stretches provided. - Discussed signs and symptoms warranting follow up in the office- verbalized understanding. 13. Need for Tdap vaccination - Tdap vaccine greater than or equal to 7 years old IM 14. Screening for lipoid disorders - Lipid panel - Will notify of blood work results. 15. Screening for diabetes mellitus - Comprehensive metabolic panel - Will notify of blood work results. Discussed use, benefit, and side effects of prescribed medications. Barriers to medication compliance addressed. All patient questions answered. Pt voiced understanding. Follow up in about 6 months (around 05/02/2023) for medication maintenance. Outpatient Encounter Medications as of 10/30/2022 Medication Sig Dispense Refill albuterol (2.5 MG/3ML) 0.083% nebulizer solution Take by nebulization every 6 hours as needed for wheezing. albuterol 108 (90 Base) MCG/ACT inhaler Inhale 2 puffs every 6 hours as needed for wheezing. buPROPion XL (Wellbutrin XL) 300 MG 24 hr tablet Take 300 mg by mouth daily. Do not crush, chew, or split. dicyclomine (Bentyl) 10 MG capsule Take 10 mg by mouth 3 times daily. FLUoxetine (PROzac) 40 MG capsule Take 40 mg by mouth daily. fluticasone (Flonase) 50 MCG/ACT nasal spray Administer 1 spray into each nostril daily. Shake gently. Before first use, prime pump. After use, clean tip and replace cap. lisinopril 5 MG tablet Take by mouth daily. meloxicam (Mobic) 15 MG tablet Take by mouth every other day. oybwlpdvdupv-bzbj-fvvgrgoc-folic acid (Centrum) chewable tablet Chew 1 tablet daily. ondansetron (Zofran) 4 MG tablet Take 4 mg by mouth every 8 hours as needed for nausea or vomiting. pantoprazole (ProtoNix) 40 MG EC tablet Take 40 mg by mouth every morning (before breakfast). Do not crush, chew, or split. No facility-administered encounter medications on file as of 10/30/2022. TERE Chung CNP 10/30/2022 8:30 AM After obtaining consent, and per orders of Ashley GRIMALDO, injection of 0.5ml tdap given in left deltoid by Dione Lemus. Patient instructed to report any adverse reaction immediately. documented in this encounter [facility] 06-15-2022 Note HNO ID: [id number] Author: Analilia Gupta RDMS Service: ? Author Type: Lead Rider Type: Progress Notes Filed: 06/15/2022 1:30 PM Note Text: Radiology Service Progress Note PATIENT NAME: Sammie Araiza DATE OF SERVICE: June 15, 2022 TIME: 1:30 PM PATIENT IDENTITY VERIFICATION COMPLETED USING TWO (2) IDENTIFIERS: Name and Date of confirmed by patient verbally. FALL SCREENING: Has the patient had 2 falls in the last year or 1 fall with injury or currently using an Ambulatory Assistive Device (Walker, Cane, Wheelchair, Crutches, etc.)? No PATIENT GENDER DATA: Female. status: : No status: NO. PATIENT RELEVANT IMPLANT DATA REVIEWED: Not Applicable RADIOLOGY DEPARTMENT: Ultrasound PERIPHERAL IV DATA: Not applicable SIGNED BY: Analilia Gupta RDMS RVT June 15, 2022 1:30 PM [facility] 06-15-2022 Miscellaneous Notes Patient given results and verbalized understanding of instructions given. Christa Cesar Please let patient know that her D-dimer was within normal range and US was negative for DVT. Recommend treatment as we reviewed at the office visit. Follow up in 5-7 days if not improving, sooner if worsening symptoms. Seek care in ER for fever >100, worsening SOB, chest pain, overall worsening. Nadia Bolanos PA-C 06/15/2022 documented in this encounter [facility] 06-15-2022 Note HNO ID: [id number] Author: LORENZO King) Service: Nuclear Medicine Author Type: Technologist Type: Progress Notes Filed: 06/15/2022 11:37 AM Note Text: Radiology Service Progress Note PATIENT NAME: Sammie Araiza DATE OF SERVICE: June 15, 2022 TIME: 11:29 AM PATIENT IDENTITY VERIFICATION COMPLETED USING TWO (2) IDENTIFIERS: Name and Date of confirmed by patient verbally. FALL SCREENING: Has the patient had 2 falls in the last year or 1 fall with injury or currently using an Ambulatory Assistive Device (Walker, Cane, Wheelchair, Crutches, etc.)? No PATIENT GENDER DATA: Female. status: : No status: NO. PATIENT RELEVANT IMPLANT DATA REVIEWED: Not Applicable RADIOLOGY DEPARTMENT: General X-ray: Exam(s) Completed: Chest X-Ray PERIPHERAL IV DATA: Not applicable SIGNED BY: RT Fernando(Paula) June 15, 2022 11:29 AM [facility] 06-15-2022 Note HNO ID: [id number] Author: Nadia Bolanos PA-C Service: ? Author Type: Physician Booth Usher Type: Progress Notes Filed: 06/15/2022 3:56 PM Note Text: 06/15/2022 Patient presents with: Cough: Chest congestion, bodyaches, HERRERA x9 days SUBJECTIVE: This is a 46 year old that is here today for Complaint(s) of cough and congestion x 9-10 days. + body aches. Notes pain in left mid back, when coughing or deep breath. + body aches. + fatigue. Notes SOB, and intermittent wheezing. Cough started non-productive, now starting to become more productive. Having diminished appetite. + nasal congestion and drainage. Notes cold sweats . Denies fever/chills, vomiting, diarrhea. [facility] and [facility]. No calf pain, edema. Denies chest pain. Non-smoker. No history of recent ravel. Not on any hormonal therapy. No recent injury/surgery. + history of exercise induced asthma -has albuterol, using prn. PAST MEDICAL HISTORY Diagnosis Date Anxiety disorder in conditions classified elsewhere Atypical nevi Dr Lim Hemicrania left headache, cervical origin? Herpes zoster without complication 12/2011 left gluteal area IBS (irritable bowel syndrome) alternating Impaired fasting glucose Obesity, unspecified Reactive airway disease with wheezing triggered by URI Skin cancer ALLERGIES Ofloxacin MEDICATIONS Current Outpatient Medications Medication Sig cephALEXin (KEFLEX) 250 mg capsule Take 250 mg by mouth daily at bedtime. omeprazole (PRILOSEC) 40 mg capsule Take 1 capsule by mouth twice daily. dicyclomine (BENTYL) 10 mg capsule Take 1 capsule by mouth three times daily as needed (abdominal pain). ondansetron orally disintegrating (ZOFRAN ODT) 4 mg disintegrating tablet Take 1 tablet by mouth every 8 hours as needed for nausea/vomiting. lisinopril (ZESTRIL, PRINIVIL) 5 mg tablet Take by mouth. FLUoxetine (PROZAC) 40 mg capsule Take 40 mg by mouth once daily. meloxicam (MOBIC) 15 mg tablet Take 15 mg by mouth once daily. fluticasone (FLONASE) 50 mcg/actuation nasal spray Use 1 [place] in each nostril once daily. albuterol HFA (PROAIR HFA) 90 mcg/actuation inhaler Inhale 2 Puffs as instructed every 4 hours as needed for Wheezing/Shortness of Breath. Cholestyramine, Bulk, powd 4 g twice daily. (Patient not taking: Reported on 02/04/2022) FLUoxetine 10 mg tablet Take 10 mg by mouth once daily. (Patient not taking: Reported on 01/05/2022) buPROPion XL (WELLBUTRIN XL) 300 mg 24 hr tablet Take 1 tablet by mouth once daily. (Patient not taking: Reported on 02/04/2022) No current facility-administered medications for this visit. SOCIAL HISTORY Social History Tobacco Use Smoking status: Never Smokeless tobacco: Never Vaping Use Vaping Use: Never used Substance Use Topics Alcohol use: Yes Comment: socially Drug use: No REVIEW OF SYSTEMS See HPI OBJECTIVE: BP 136/78 Pulse 110 Temp 36.6 ?C (97.8 ?F) Resp 20 Wt 109.8 kg (242 lb) LMP 12/29/2019 (Approximate) SpO2 96% BMI 36.80 kg/m? APPEARANCE alert, in no acute distress, well-hydrated, well nourished. EYES PERRLA, conjunctiva and sclera normal. EARS External ears normal, canals clear. TMs normal MAAME NOSE/SINUS Nares normal. Septum midline. Mucosa normal. No drainage or sinus tenderness. THROAT normal, no erythema NECK Supple, no adenopathy; HEART RRR with normal S1 and S2, LUNG clear to auscultation, No wheezing, rhonchi, rales. + persistent cough. BACK: Normal exam EXTREMITIES Extremities normal, No deformities, No skin discoloration, No edema, and Normal pulses bilaterally. Mild right calf TTP. Negative Homans'. ASSESSMENT/PLAN: 1. Acute cough - ICD9: 786.2, ICD10: R05.1 (primary diagnosis) Suspect Bronchitis Discussed viral etiology vs possible bacterial. Start doxy and prednisone, albuterol prn Reviewed red flags and when to seek care sooner. F/u in 5-7 days if not improving, sooner if worsening - XR CHEST 2V FRONTAL/LAT - PREDNISONE 20 MG TABLET - DOXYCYCLINE HYCLATE 100 MG TABLET - BENZONATATE 100 MG CAPSULE - [id number] 2. SOB (shortness of breath) - ICD9: 786.05, ICD10: R06.02 As above Continue albuterol prn Reviewed red flags and when to seek care sooner. - XR CHEST 2V FRONTAL/LAT - PREDNISONE 20 MG TABLET - DOXYCYCLINE HYCLATE 100 MG TABLET - BENZONATATE 100 MG CAPSULE - D-DIMER 3. Right leg pain - ICD9: 729.5, ICD10: M79.604 Suspect musculoskeletal. Had similar symptoms previously and negative US. No history of DVT Reviewed red flags and when to seek care sooner. - [id number] - US DVT LOWER RT-normal The patient indicates understanding of these issues and agrees with the plan. Nadia Bolanos PA-C [facility] 06-15-2022 History of Presen t illness Narrative Radiology Service Progress Note PATIENT NAME: Sammie Araiza DATE OF SERVICE: June 15, 2022 TIME: 1:30 PM PATIENT IDENTITY VERIFICATION COMPLETED USING TWO (2) IDENTIFIERS: Name and Date of confirmed by patient verbally. FALL SCREENING: Has the patient had 2 falls in the last year or 1 fall with injury or currently using an Ambulatory Assistive Device (Walker, Cane, Wheelchair, Crutches, etc.)? No PATIENT GENDER DATA: Female. status: : No status: NO. PATIENT RELEVANT IMPLANT DATA REVIEWED: Not Applicable RADIOLOGY DEPARTMENT: Ultrasound PERIPHERAL IV DATA: Not applicable SIGNED BY: Analilia Gupta RDMS RVT June 15, 2022 1:30 PM documented in this encounter [facility] 06-15-2022 History of Presen t illness Narrative 06/15/2022 Patient presents with: Cough: Chest congestion, bodyaches, HERRERA x9 days SUBJECTIVE: This is a 46 year old that is here today for Complaint(s) of cough and congestion x 9-10 days. + body aches. Notes pain in left mid back, when coughing or deep breath. + body aches. + fatigue. Notes SOB, and intermittent wheezing. Cough started non-productive, now starting to become more productive. Having diminished appetite. + nasal congestion and drainage. Notes cold sweats . Denies fever/chills, vomiting, diarrhea. [facility] and negative [facility]. No calf pain, edema. Denies chest pain. Non-smoker. No history of recent ravel. Not on any hormonal therapy. No recent injury/surgery. + history of exercise induced asthma -has albuterol, using prn. PAST MEDICAL HISTORY Diagnosis Date Anxiety disorder in conditions classified elsewhere Atypical nevi Dr Lim Hemicrania left headache, cervical origin? Herpes zoster without complication 12/2011 left gluteal area IBS (irritable bowel syndrome) alternating Impaired fasting glucose Obesity, unspecified Reactive airway disease with wheezing triggered by URI Skin cancer ALLERGIES Ofloxacin MEDICATIONS Current Outpatient Medications Medication Sig cephALEXin (KEFLEX) 250 mg capsule Take 250 mg by mouth daily at bedtime. omeprazole (PRILOSEC) 40 mg capsule Take 1 capsule by mouth twice daily. dicyclomine (BENTYL) 10 mg capsule Take 1 capsule by mouth three times daily as needed (abdominal pain). ondansetron orally disintegrating (ZOFRAN ODT) 4 mg disintegrating tablet Take 1 tablet by mouth every 8 hours as needed for nausea/vomiting. lisinopril (ZESTRIL, PRINIVIL) 5 mg tablet Take by mouth. FLUoxetine (PROZAC) 40 mg capsule Take 40 mg by mouth once daily. meloxicam (MOBIC) 15 mg tablet Take 15 mg by mouth once daily. fluticasone (FLONASE) 50 mcg/actuation nasal spray Use 1 [place] in each nostril once daily. albuterol HFA (PROAIR HFA) 90 mcg/actuation inhaler Inhale 2 Puffs as instructed every 4 hours as needed for Wheezing/Shortness of Breath. Cholestyramine, Bulk, powd 4 g twice daily. (Patient not taking: Reported on 02/04/2022) FLUoxetine 10 mg tablet Take 10 mg by mouth once daily. (Patient not taking: Reported on 01/05/2022) buPROPion XL (WELLBUTRIN XL) 300 mg 24 hr tablet Take 1 tablet by mouth once daily. (Patient not taking: Reported on 02/04/2022) No current facility-administered medications for this visit. SOCIAL HISTORY Social History Tobacco Use Smoking status: Never Smokeless tobacco: Never Vaping Use Vaping Use: Never used Substance Use Topics Alcohol use: Yes Comment: socially Drug use: No REVIEW OF SYSTEMS See HPI OBJECTIVE: BP 136/78 Pulse 110 Temp 36.6 C (97.8 F) Resp 20 Wt 109.8 kg (242 lb) LMP 12/29/2019 (Approximate) SpO2 96% BMI 36.80 kg/m APPEARANCE alert, in no acute distress, well-hydrated, well nourished. EYES PERRLA, conjunctiva and sclera normal. EARS External ears normal, canals clear. TMs normal MAAME NOSE/SINUS Nares normal. Septum midline. Mucosa normal. No drainage or sinus tenderness. THROAT normal, no erythema NECK Supple, no adenopathy; HEART RRR with normal S1 and S2, LUNG clear to auscultation, No wheezing, rhonchi, rales. + persistent cough. BACK: Normal exam EXTREMITIES Extremities normal, No deformities, No skin discoloration, No edema, and Normal pulses bilaterally. Mild right calf TTP. Negative Homans'. ASSESSMENT/PLAN: 1. Acute cough - ICD9: 786.2, ICD10: R05.1 (primary diagnosis) Suspect Bronchitis Discussed viral etiology vs possible bacterial. Start doxy and prednisone, albuterol prn Reviewed red flags and when to seek care sooner. F/u in 5-7 days if not improving, sooner if worsening - XR CHEST 2V FRONTAL/LAT - PREDNISONE 20 MG TABLET - DOXYCYCLINE HYCLATE 100 MG TABLET - BENZONATATE 100 MG CAPSULE - [id number]-lkootapj 2. SOB (shortness of breath) - ICD9: 786.05, ICD10: R06.02 As above Continue albuterol prn Reviewed red flags and when to seek care sooner. - XR CHEST 2V FRONTAL/LAT - PREDNISONE 20 MG TABLET - DOXYCYCLINE HYCLATE 100 MG TABLET - BENZONATATE 100 MG CAPSULE - D-DIMER 3. Right leg pain - ICD9: 729.5, ICD10: M79.604 Suspect musculoskeletal. Had similar symptoms previously and negative US. No history of DVT Reviewed red flags and when to seek care sooner. - R-YQYWB-[id number] - US DVT LOWER RT-normal The patient indicates understanding of these issues and agrees with the plan. Nadia Bolanos PA-C documented in this encounter [facility] 05-25-2022 Miscellaneous Notes Pharmacy escripts requesting the following refill: Requested Prescriptions Pending Prescriptions Disp Refills dicyclomine (BENTYL) 10 mg capsule 30 capsule 3 Sig: Take 1 capsule by mouth three times daily as needed (abdominal pain). Please review and advise. Marck Alexander RN documented in this encounter [facility] 04-03-2022 Miscellaneous Notes Attempted to call the patient. No answer. Left a detailed message. Marck Alexander RN ----- Message from Sada Salazar MD sent at 04/03/2022 8:15 AM EST ----- pH impedance are normal acid exposure she does have some reflux hypersensitivity meaning she may experience reflux at a stronger level than normal. Pain may be in fact due to sensitivity to reflux, recommend she continue FD guard, restart Prilosec and still obtain breath testing. documented in this encounter [facility] 04-01-2022 Note HNO ID: [id number] Author: Cheryl Tucker LPN Service: ? Author Type: LICENSED NURSE Type: Progress Notes Filed: 04/01/2022 12:37 PM Note Text: Name: Sammie Araiza CC#: [id number] Date: 04/01/2022 24 HOUR pH PROBE REMOVAL The pH probe was removed by patient and the data was downloaded from the compliance representative for physician review. Cheryl Tucker LPN [facility] 04-01-2022 History of Presen t illness Narrative Name: Sammie Araiza [facility]#: [id number] Date: 04/01/2022 24 HOUR pH PROBE REMOVAL The pH probe was removed by patient and the data was downloaded from the compliance representative for physician review. Cheryl Tucker LPN documented in this encounter [facility] 03-19-2022 Note HNO ID: [id number] Author: Cheryl Tucker LPN Service: ? Author Type: LICENSED NURSE Type: Progress Notes Filed: 03/19/2022 12:08 PM Note Text: Name: Sammie Araiza [facility]#: [id number] Date: 03/19/2022 24 HOUR pH PROBE INSERTION Indication: Abdominal Pain Patient has been NPO since last evening. Pain Assessment: No pain is present. Testing off meds - , Prilosec (omperazole)40 mg, twice daily last taken 7 days ago. A local anesthetic 1.5 cc 2% Viscous Lidocaine A single sensor pH probe was inserted the left nares to 33cm, ph insertion from EGD measurement of the z-line with impedance. Patient education: The patient was verbally instructed how to record events and symptoms. Written instructions with contact telephone numbers was provided. The patient will return tomorrow for probe removal. Cheryl Tucker LPN [facility] 03-19-2022 History of Presen t illness Narrative Name: Sammie Araiza [facility]#: [id number] Date: 03/19/2022 24 HOUR pH PROBE INSERTION Indication: Abdominal Pain Patient has been NPO since last evening. Pain Assessment: No pain is present. Testing off meds - , Prilosec (omperazole)40 mg, twice daily last taken 7 days ago. A local anesthetic 1.5 cc 2% Viscous Lidocaine A single sensor pH probe was inserted the left nares to 33cm, ph insertion from EGD measurement of the z-line with impedance. Patient education: The patient was verbally instructed how to record events and symptoms. Written instructions with contact telephone numbers was provided. The patient will return tomorrow for probe removal. Cheryl Tucker LPN documented in this encounter [facility] 03-17-2022 Miscellaneous Notes Called patient to reschedule appointment from 03/18 to Apr 24, 2022 at 1000 am.TONNY Perez documented in this encounter [facility] 03-12-2022 Note HNO ID: [id number] Author: TONNY Perez Service: ? Author Type: Clinical Lift Builder Whole Type: Progress Notes Filed: 03/12/2022 8:48 AM Note Text: Glucose - SIBO Hydrogen Breath Test March 12, 2022 Referring Physician: Sada Salazar MD Indication Bloating, Abdominal pain, Diarrhea, Milk intolerance Prep: 4 weeks followin hour before: No Smoking Day of test - No gum chewing Pain Level: none Baseline Hydrogen: 1 Methane: 8 Sohailkiya Claudia, CT Time given: 935am 75 grams / 75 grams Clock time start: 940am 15 minutes Hydrogen: 5 Methane: 9 Nikkiya Claudia, CT 30 minutes Hydrogen: 3 Methane: 8 Nikkiya Claudia, CT 45 minutes Hydrogen: 3 Methane: 9 Nikkiya Claudia, CT 1 hour Hydrogen: 3 Methane: 8 Shabbir Taylor, CT 1 hour, 15 minutes Hydrogen: 1 Methane: 8 Shabbir Claudia, CT 1 hour, 30 minutes Hydrogen: 2 Methane: 8 Sohailkibaltazar Claudia, CT Symptoms developed during the study: Flatulence/Gas,achy stomach Patient Results Preliminary Test Results (not given to patient): Pending TONNY Perez Patient must be = Hydrogen >20 or Methane >10 in order to be positive for Bacterial Overgrowth [facility] 03-12-2022 History of Presen t illness Narrative Glucose - SIBO Hydrogen Breath Test March 12, 2022 Referring Physician: Sada Salazar MD Indication Bloating, Abdominal pain, Diarrhea, Milk intolerance Prep: 4 weeks followin hour before: No Smoking Day of test - No gum chewing Pain Level: none Baseline Hydrogen: 1 Methane: 8 Nikkiya Claudia, CT Time given: 935am 75 grams / 75 grams Clock time start: 940am 15 minutes Hydrogen: 5 Methane: 9 Nikkiya Claudia, CT 30 minutes Hydrogen: 3 Methane: 8 Nikkiya Claudia, CT 45 minutes Hydrogen: 3 Methane: 9 Nikkiya Claudia, CT 1 hour Hydrogen: 3 Methane: 8 Nikkiya Claudia, CT 1 hour, 15 minutes Hydrogen: 1 Methane: 8 TONNY Perez 1 hour, 30 minutes Hydrogen: 2 Methane: 8 TONNY Perez Symptoms developed during the study: Flatulence/Gas,achy stomach Patient Results Preliminary Test Results (not given to patient): Pending TONNY Perez Patient must be = Hydrogen >20 or Methane >10 in order to be positive for Bacterial Overgrowth documented in this encounter [facility] 03-05-2022 Note HNO ID: [id number] Author: Jenny Andres MD Service: ? Author Type: Physician Type: Progress Notes Filed: 03/05/2022 9:28 AM Note Text: Rev'd [facility] 03-05-2022 History of Presen t illness Narrative Rev'd documented in this encounter [facility] 03-04-2022 Note HNO ID: [id number] Author: TONNY Perez Service: ? Author Type: Clinical Lift Builder Whole Type: Progress Notes Filed: 03/04/2022 2:50 PM Note Text: LACTOSE HYDROGEN BREATH TEST For Lactose Intolerance Date: March 04, 2022 Referring Physician: Sada Salazar MD Chief Complaint Diarrhea Symptoms prior to start of study: None Lactose 25 grams given at: 955am Start Time: 1000am Baseline Hydrogen PPM: 3 Methane PPM: [address] Time: 1020am / 20 minutes Hydrogen PPM: 2 Methane PPM: [address] Time: 1040am / 40 minutes Hydrogen PPM: 3 Methane PPM: [address] Time: 1100am / 60 minutes Hydrogen PPM: 2 Methane PPM: [address] Time: 1120am / 120 minutes Hydrogen PPM: 2 Methane PPM: 8 Shabbir Taylor, CT Time: 1140am / 180 minutes Hydrogen PPM: 3 Methane PPM: 8 TONNY Perez Symptoms developed during the study period: None Patient Results Preliminary Test Results (not given to patient): Pending TONNY Perez [facility] 03-04-2022 History of Presen t illness Narrative LACTOSE HYDROGEN BREATH TEST For Lactose Intolerance Date: March 04, 2022 Referring Physician: Sada Salazar MD Chief Complaint Diarrhea Symptoms prior to start of study: None Lactose 25 grams given at: 955am Start Time: 1000am Baseline Hydrogen PPM: 3 Methane PPM: 9 Shabbir Taylor, CT Time: 1020am / 20 minutes Hydrogen PPM: 2 Methane PPM: 8 Shabbir Claudia, CT Time: 1040am / 40 minutes Hydrogen PPM: 3 Methane PPM: 8 Shabbir Claudia, CT Time: 1100am / 60 minutes Hydrogen PPM: 2 Methane PPM: 9 Shabbir Taylor, CT Time: 1120am / 120 minutes Hydrogen PPM: 2 Methane PPM: 8 Stephaniebaltazar Taylor, CT Time: 1140am / 180 minutes Hydrogen PPM: 3 Methane PPM: [address] Symptoms developed during the study period: None Patient Results Preliminary Test Results (not given to patient): Pending TONNY Perez documented in this encounter [facility] 02-11-2022 Miscellaneous Notes Patient phones requesting refills as follows: Last office visit: Visit date not found Next office visit: Visit date not found Requested Prescriptions Pending Prescriptions Disp Refills omeprazole (PRILOSEC) 40 mg capsule 60 capsule 3 Sig: Take 1 capsule by mouth twice daily. Please review and advise. Paulina Nunez LPN Please file if appropriate documented in this encounter [facility] 01-22-2022 Miscellaneous Notes GI workup by Dr. Salazar has been faxed per pt request. Marck Alexander RN documented in this encounter [facility] 01-05-2022 Note HNO ID: [id number] Author: Ashley Owens APRN.GIFTED PROGRAM TEACHER Service: ? Author Type: Nurse Practitioner Type: Progress Notes Filed: 01/05/2022 7:21 PM Note Text: CC: Patient presents with: UTI: Burning with urination, lower abd pain x2 days Patient has significant history of UTIs says this feels exactly the same no different. JUSTO Araiza is a 46 year old female who presents with complaint of possible UTI. These symptoms have been present for 2 days. Associated symptoms: abdominal pain burning Denies: fever, chills, and sweats Treatments: nothing The ROS was otherwise negative. PMH, Medications, labs, allergies, and recent past visits with PCP were reviewed and updated as able. PAST MEDICAL HISTORY Diagnosis Date Anxiety disorder in conditions classified elsewhere Atypical nevi Dr Lim Hemicrania left headache, cervical origin? Herpes zoster without complication 12/2011 left gluteal area IBS (irritable bowel syndrome) alternating Impaired fasting glucose Obesity, unspecified Reactive airway disease with wheezing triggered by URI Skin cancer PAST SURGICAL HISTORY Procedure Laterality Date CARPAL TUNNEL CHOLECYSTECTOMY 2001 Cholecystectomy (lap, with cholangiogram), Dr. Flores COLONOSCOPY years ago EGD 11/07/2020 EXTRACTION, ERUPTED TOOTH OR EXPOSED ROOT (ELEVATION AND/OR FORCEPS REMOVAL) 1995 wisdom teeth PAST SURGICAL HISTORY OF 11/2019 uterine ablation TONSILLECTOMY PRIMARY/SECONDARY AGE 13/> 1998 ALLERGIES Ofloxacin MEDICATIONS lisinopril (ZESTRIL, PRINIVIL) 5 mg tablet Take by mouth. FLUoxetine (PROZAC) 40 mg capsule Take 40 mg by mouth once daily. meloxicam (MOBIC) 15 mg tablet Take 15 mg by mouth once daily. fluticasone (FLONASE) 50 mcg/actuation nasal spray Use 1 [place] in each nostril once daily. omeprazole (PRILOSEC) 40 mg capsule Take 1 capsule by mouth twice daily. ondansetron orally disintegrating (ZOFRAN ODT) 4 mg disintegrating tablet Take 1 tablet by mouth every 8 hours as needed for nausea/vomiting. dicyclomine (BENTYL) 10 mg capsule Take 1 capsule by mouth three times daily as needed (abdominal pain). Cholestyramine, Bulk, powd 4 g twice daily. buPROPion XL (WELLBUTRIN XL) 300 mg 24 hr tablet Take 1 tablet by mouth once daily. albuterol HFA (PROAIR HFA) 90 mcg/actuation inhaler Inhale 2 Puffs as instructed every 4 hours as needed for Wheezing/Shortness of Breath. nitrofurantoin monohydrate and macrocrystal (MACROBID) 100 mg capsule Take 1 capsule by mouth twice daily for 5 days. FLUoxetine 10 mg tablet Take 10 mg by mouth once daily. (Patient not taking: Reported on 01/05/2022) FAMILY HISTORY Problem Relation Age of Onset Anesthesia Mother heart stopped 3 times on the table Colon Polyps Mother Arthritis Father rheumatoid (and one PAunt) Colon Polyps Father Heart Maternal Grandmother pacer Diabetes Maternal Grandmother Diabetes Paternal Grandmother Colon Cancer Paternal Grandmother Cancer Maternal Uncle type unknown; age 54 Coronary Artery Disease Other none Breast Cancer Other none Social History Tobacco Use Smoking status: Never Smokeless tobacco: Never Substance Use Topics Alcohol use: Yes Comment: socially Drug use: No ASSESSMENT/PLAN: 1. Burning with urination - ICD9: 788.1, ICD10: R30.0 acute - Send urine for culture - Begin treatment with Macrobid 100 mg BID for 5 days - UA DIP, URINE (POC) - URINE CULTURE Prescription instructions reviewed with patient as applicable. Potential red flag symptoms discussed with the patient. Reviewed appropriate action plan to take if red flag symptoms occur. Patient will go to the ER if anything changes. Patient agreeable to treatment plan. Ashley Owens APRN.[facility] 01-05-2022 History of Presen t illness Narrative CC: Patient presents with: UTI: Burning with urination, lower abd pain x2 days Patient has significant history of UTIs says this feels exactly the same no different. HPI Sammie Araiza is a 46 year old female who presents with complaint of possible UTI. These symptoms have been present for 2 days. Associated symptoms: abdominal pain burning Denies: fever, chills, and sweats Treatments: nothing The ROS was otherwise negative. PMH, Medications, labs, allergies, and recent past visits with PCP were reviewed and updated as able. PAST MEDICAL HISTORY Diagnosis Date Anxiety disorder in conditions classified elsewhere Atypical nevi Dr Lim Hemicrania left headache, cervical origin? Herpes zoster without complication 12/2011 left gluteal area IBS (irritable bowel syndrome) alternating Impaired fasting glucose Obesity, unspecified Reactive airway disease with wheezing triggered by URI Skin cancer PAST SURGICAL HISTORY Procedure Laterality Date CARPAL TUNNEL CHOLECYSTECTOMY 2001 Cholecystectomy (lap, with cholangiogram), Dr. Flores COLONOSCOPY years ago EGD 11/07/2020 EXTRACTION, ERUPTED TOOTH OR EXPOSED ROOT (ELEVATION AND/OR FORCEPS REMOVAL) 1995 wisdom teeth PAST SURGICAL HISTORY OF 11/2019 uterine ablation TONSILLECTOMY PRIMARY/SECONDARY AGE 12/1998 ALLERGIES Ofloxacin MEDICATIONS lisinopril (ZESTRIL, PRINIVIL) 5 mg tablet Take by mouth. FLUoxetine (PROZAC) 40 mg capsule Take 40 mg by mouth once daily. meloxicam (MOBIC) 15 mg tablet Take 15 mg by mouth once daily. fluticasone (FLONASE) 50 mcg/actuation nasal spray Use 1 [place] in each nostril once daily. omeprazole (PRILOSEC) 40 mg capsule Take 1 capsule by mouth twice daily. ondansetron orally disintegrating (ZOFRAN ODT) 4 mg disintegrating tablet Take 1 tablet by mouth every 8 hours as needed for nausea/vomiting. dicyclomine (BENTYL) 10 mg capsule Take 1 capsule by mouth three times daily as needed (abdominal pain). Cholestyramine, Bulk, powd 4 g twice daily. buPROPion XL (WELLBUTRIN XL) 300 mg 24 hr tablet Take 1 tablet by mouth once daily. albuterol HFA (PROAIR HFA) 90 mcg/actuation inhaler Inhale 2 Puffs as instructed every 4 hours as needed for Wheezing/Shortness of Breath. nitrofurantoin monohydrate and macrocrystal (MACROBID) 100 mg capsule Take 1 capsule by mouth twice daily for 5 days. FLUoxetine 10 mg tablet Take 10 mg by mouth once daily. (Patient not taking: Reported on 01/05/2022) FAMILY HISTORY Problem Relation Age of Onset Anesthesia Mother heart stopped 3 times on the table Colon Polyps Mother Arthritis Father rheumatoid (and one PAunt) Colon Polyps Father Heart Maternal Grandmother pacer Diabetes Maternal Grandmother Diabetes Paternal Grandmother Colon Cancer Paternal Grandmother Cancer Maternal Uncle type unknown; age 54 Coronary Artery Disease Other none Breast Cancer Other none Social History Tobacco Use Smoking status: Never Smokeless tobacco: Never Substance Use Topics Alcohol use: Yes Comment: socially Drug use: No ASSESSMENT/PLAN: 1. Burning with urination - ICD9: 788.1, ICD10: R30.0 acute - Send urine for culture - Begin treatment with Macrobid 100 mg BID for 5 days - UA DIP, URINE (POC) - URINE CULTURE Prescription instructions reviewed with patient as applicable. Potential red flag symptoms discussed with the patient. Reviewed appropriate action plan to take if red flag symptoms occur. Patient will go to the ER if anything changes. Patient agreeable to treatment plan. Ashley Owens APRN.ROSALIA documented in this encounter [facility] 10-01-2021 Miscellaneous Notes Pt requesting refills on the following medication. Please file if appropriate. documented in this encounter [facility] Diagnosis Burning with urination- Primary Dysuria [facility] Diagnosis Left upper quadrant abdominal pain [facility] this [facility]* Diagnosis Bloating Flatulence, eructation, and gas pain [facility] this [facility] Diagnosis Bloating- Primary Flatulence, eructation, and gas pain documented in this encounter [facility] note* Diagnosis Bloating Flatulence, eructation, and gas pain [facility] this [facility] Diagnosis Abdominal pain, unspecified abdominal location documented in this encounter [facility] note* Diagnosis Abdominal pain, unspecified abdominal location- Primary [facility] this [facility] Diagnosis Left sided abdominal pain Abdominal pain, unspecified site [facility] Diagnosis Acute cough- Primary SOB (shortness of breath) Shortness of breath Right leg pain Pain in limb [facility] Diagnosis Well adult exam- Primary Routine general medical examination at a health care facility Encounter to establish care Mild intermittent asthma without complication Primary hypertension Unspecified essential hypertension Osteoarthritis of both knees, unspecified osteoarthritis type Gastroesophageal reflux disease, unspecified whether esophagitis present Irritable bowel syndrome with diarrhea Irritable bowel syndrome Vitamin D deficiency Class 1 obesity due to excess calories without serious comorbidity with body mass index (BMI) of 33.0 to 33.9 in adult Depressive disorder Depressive disorder, not elsewhere classified Anxiety Anxiety state, unspecified Right calf pain Need for Tdap vaccination Need for prophylactic vaccination with combined vfahjqdywc-splxvio-nzlnadakr (DTP) vaccine Screening for lipoid disorders Screening for diabetes mellitus documented in this encounter [facility]* Diagnosis Irritable bowel syndrome without diarrhea documented in this encounter [facility]* Diagnosis Primary hypertension Unspecified essential hypertension documented in this encounter [facility]* Diagnosis Injury due to fall, initial encounter- Primary Left knee injury, initial encounter Flu vaccine need documented in this encounter [facility]* Diagnosis Injury due to fall, initial encounter Left knee injury, initial encounter documented in this encounter [facility]* Diagnosis Depressive disorder Depressive disorder, not elsewhere classified Anxiety Anxiety state, unspecified [facility] Diagnosis Right leg pain Pain in limb [facility] Diagnosis Irritable bowel syndrome without diarrhea- Primary Irritable bowel syndrome without diarrhea documented in this encounter [facility]* Attachments The following attachments cannot be sent through Care Everywhere. * Nocturnal (Nighttime) Leg Cramps ([place]) * Tdap Vaccine ([place]) [facility] Diagnostic Procedure Only (Urgent) - Closed Specialty Diagnoses / Procedures Referred By Contac t Referred To Contact US IMAGING Diagnoses Right leg pain Procedures US DVT LOWER RT DUP-SCAN XTR VEINS UNILATERAL/LIMITED STUDY Nadia Bolanos PA-C [address] [place] [address] Us Imaging Referral ID Status Reason Start Date Expiration Date V isits Requested Visits Authorized [id number] Closed Auto-Generate d Referral 06/15/2022 07/15/2023 1 1 [facility] for referral (narrative)* Diagnostic Procedure Only (Urgent) - Closed Specialty Diagnoses / Procedures Referred By Contac t Referred To Contact US IMAGING Diagnoses Right leg pain Procedures US DVT LOWER RT DUP-SCAN XTR VEINS UNILATERAL/LIMITED STUDY Nadia Bolanos PA-C [address] [place] [address] [place] [address] Referral ID Status Reason Start Date Expiration Date V isits Requested Visits Authorized [id number] Closed Auto-Generate d Referral 06/15/2022 07/15/2023 1 1 [facility] Advance Directives No Advanced Directives Records FoundDocuments on File Type Date Recorded Patient Microarray Analyst Expl anation Advance Directive(s) 11/07/2020 6:26 AM Summary Purpose Family History No Family History Records FoundNo Family History Records Found Reason for Referral Specialty Diagnoses / Procedures Referred By Contac t Referred To Contact Radiology Diagnoses Irritable bowel syndrome without diarrhea Procedures NM gastric emptying solid Friend, Tanna [address], [address] [place] [address] Referral ID Status Reason Start Date Expiration Date Visits Re quested Visits Authorized [id number] Closed 11/11/2022 05/10/2023 1 1 Additional Source Comments Source Comments (unrecognize d section and content) In the event this informatio n is protected by the Federal Confidentiality of Alcohol and Drug Abuse Patient Records regulations: The Federal rules restrict any use of the information to criminally investigate or prosecute any alcohol or drug abuse patient.[place] [facility] Health SystemIn the event this information is protected by the Federal Confidentiality of Alcohol and Drug Abuse Patient Records regulations: The Federal rules restrict any use of the information to criminally investigate or prosecute any alcohol or drug abuse patient.[facility] SystemIn the event this information is protected by the Federal Confidentiality of Alcohol and Drug Abuse Patient Records regulations: The Federal rules restrict any use of the information to criminally investigate or prosecute any alcohol or drug abuse patient.[facility] SystemIn the event this information is protected by the Federal Confidentiality of Alcohol and Drug Abuse Patient Records regulations: The Federal rules restrict any use of the information to criminally investigate or prosecute any alcohol or drug abuse patient.[facility] SystemIn the event this information is protected by the Federal Confidentiality of Alcohol and Drug Abuse Patient Records regulations: The Federal rules restrict any use of the information to criminally investigate or prosecute any alcohol or drug abuse patient.[facility] SystemIn the event this information is protected by the Federal Confidentiality of Alcohol and Drug Abuse Patient Records regulations: The Federal rules restrict any use of the information to criminally investigate or prosecute any alcohol or drug abuse patient.[facility] SystemIn the event this information is protected by the Federal Confidentiality of Alcohol and Drug Abuse Patient Records regulations: The Federal rules restrict any use of the information to criminally investigate or prosecute any alcohol or drug abuse patient.[facility] SystemIn the event this information is protected by the Federal Confidentiality of Alcohol and Drug Abuse Patient Records regulations: The Federal rules restrict any use of the information to criminally investigate or prosecute any alcohol or drug abuse patient.[facility] SystemIn the event this information is protected by the Federal Confidentiality of Alcohol and Drug Abuse Patient Records regulations: The Federal rules restrict any use of the information to criminally investigate or prosecute any alcohol or drug abuse patient.[facility] SystemIn the event this information is protected by the Federal Confidentiality of Alcohol and Drug Abuse Patient Records regulations: The Federal rules restrict any use of the information to criminally investigate or prosecute any alcohol or drug abuse patient.[facility] SystemIn the event this information is protected by the Federal Confidentiality of Alcohol and Drug Abuse Patient Records regulations: The Federal rules restrict any use of the information to criminally investigate or prosecute any alcohol or drug abuse patient.[facility] SystemIn the event this information is protected by the Federal Confidentiality of Alcohol and Drug Abuse Patient Records regulations: The Federal rules restrict any use of the information to criminally investigate or prosecute any alcohol or drug abuse patient.[facility] SystemIn the event this information is protected by the Federal Confidentiality of Alcohol and Drug Abuse Patient Records regulations: The Federal rules restrict any use of the information to criminally investigate or prosecute any alcohol or drug abuse patient.[facility] SystemIn the event this information is protected by the Federal Confidentiality of Alcohol and Drug Abuse Patient Records regulations: The Federal rules restrict any use of the information to criminally investigate or prosecute any alcohol or drug abuse patient.[facility] SystemIn the event this information is protected by the Federal Confidentiality of Alcohol and Drug Abuse Patient Records regulations: The Federal rules restrict any use of the information to criminally investigate or prosecute any alcohol or drug abuse patient.[facility] Reason for Visit (unrecogniz ed section and content) Specialty Diagnoses / Procedures Referred By Contac t Referred To Contact [facility] Diagnoses Bloating Procedures BREATH TEST GLUCOSE BREATH HYDROGEN/METHANE TEST Sada Salazar MD [address] [place] [address] [facility] [address] [place] [address] Referral ID Status Reason Start Date Expiration Date V isits Requested Visits Authorized [id number] Closed Auto-Generate d Referral 01/30/2022 01/29/2023 1 1 Reason Onset Date Comments Refill Request 10/01/2021 Reason Comments UTI Burning with urinati on, lower abd pain x2 days Reason Onset Date Comments Refill Request 02/11/2022 Specialty Diagnoses / Procedures Referred By Contac t Referred To Contact [facility] Diagnoses Bloating Procedures BREATH TEST LACTOSE BREATH HYDROGEN/METHANE TEST Sada Salazar MD [address] [facility] [place] [address] [place] [place] [address] Referral ID Status Reason Start Date Expiration Date V isits Requested Visits Authorized [id number] Closed Auto-Generate d Referral 02/18/2022 03/28/2022 1 1 Reason Comments Gas Reason Comments Patient Question Patient Update Reason Onset Date Comments Procedure 03/19/2022 Specialty Diagnoses / Procedures Referred By Contac t Referred To Contact [facility] Diagnoses Abdominal pain, unspecified abdominal location Procedures PH IMPEDANCE INSERT OFF MEDS ESOPHGL FUNCJ G-ESOP RFLX IMPD Sada Carballo MD [address] [place] [address] [facility] [address] [place] [address] Referral ID Status Reason Start Date Expiration Date V isits Requested Visits Authorized [id number] Closed Auto-Generate d Referral 01/30/2022 01/29/2023 1 1 Reason Onset Date Comments Procedure 04/01/2022 Reason Onset Date Comments Refill Request 05/22/2022 Reason Comments Results Reason Comments Cough Chest congestion, chang dyaches, HERRERA x9 days Reason Comments Results pH impedance Reason Comments Establish Care thigh pain Health Maintenance Hep C--has had befor e, HIV--has had before, Cervical--07/08/22 came back abnormal,had Colposcopy 08/20/22 Everything came back okay -next Appointment 07/14/2023 , Colon--11/07/20 go every 5 years because of history. Actually Have an Appointment 11/06/22 w/Dr Carter for check up. , Mammo--04/29/22, MMR--had vaccines as a kid, Tdap--needs to check dates, COVID 4--has not had Reason Onset Date Comments Orders 10/30/2022 Specialty Diagnoses / Procedures Referred By Contac t Referred To Contact Radiology Diagnoses Irritable bowel syndrome without diarrhea Procedures NM gastric emptying solid Friend, Tanna [address], [address] [place] [address] Referral ID Status Reason Start Date Expiration Date Visits Re quested Visits Authorized [id number] Closed 11/11/2022 05/10/2023 1 1 Reason Onset Date Comments Med Refill 11/22/2022 Reason Comments Fall Knee Pain Left knee pain Reason Onset Date Comments Med Refill 12/30/2022 Reason Comments Radiology US Specialty Diagnoses / Procedures Referred By Contac t Referred To Contact [facility] Diagnoses Right leg pain Procedures US DVT LOWER RT DUP-SCAN XTR VEINS UNILATERAL/LIMITED STUDY Nadia Bolanos PA-C [address] [place] [address] [place] [id number] Referral ID Status Reason Start Date Expiration Date V isits Requested Visits Authorized [id number] Closed Auto-Generate d Referral 06/15/2022 07/15/2023 1 1 Care Teams (unrecognized sec tion and content) Project Management Director Relationship Specialty Start Date End Date Ashok Araiza MD PCP - General Family Medicine 03/21/17 Project Management Director Relationship Specialty Start Date End Date Ashok Araiza MD PCP - General Family Medicine 03/21/17 Project Management Director Relationship Specialty Start Date End Date Ashok Araiza MD PCP - General Family Medicine 03/21/17 Project Management Director Relationship Specialty Start Date End Date Ashok Araiza MD PCP - General Family Medicine 03/21/17 Project Management Director Relationship Specialty Start Date End Date Ashok Araiza MD PCP - General Family Medicine 03/21/17 Project Management Director Relationship Specialty Start Date End Date Ashok Araiza MD PCP - General Family Medicine 03/21/17 Project Management Director Relationship Specialty Start Date End Date Ashok Araiza MD PCP - General Family Medicine 03/21/17 Project Management Director Relationship Specialty Start Date End Date Ashok Araiza MD PCP - General Family Medicine 03/21/17 Project Management Director Relationship Specialty Start Date End Date Ashok Araiza MD PCP - General Family Medicine 03/21/17 Project Management Director Relationship Specialty Start Date End Date Rory Hickman MD NO FORWARDING ADDRESS PCP - General Internal Medicine 06/15/22 Project Management Director Relationship Specialty Start Date End Date Rory Hickman MD NO FORWARDING ADDRESS PCP - General Internal Medicine 06/15/22 Project Management Director Relationship Specialty Start Date End Date Ashok Araiza MD PCP - General Family Medicine 03/21/17 06/14/22 Rory Hickman MD NO FORWARDING ADDRESS PCP - General Internal Medicine 06/15/22 Project Management Director Relationship Specialty Start Date End Date Kevin Jin MD [address] [place] [address] PCP - General Family Medicine 10/29/22 Project Management Director Relationship Specialty Start Date End Date Kevin Jin MD [address] [place] [address] PCP - General Family Medicine 10/29/22 Project Management Director Relationship Specialty Start Date End Date Ashley Olivera, [employer] SENSOR SPECIALIST - GIFTED PROGRAM TEACHER [address] [place] [address] PCP - General Nurse Practitioner Family 11/11/22 Project Management Director Relationship Specialty Start Date End Date Ashley Olivera, AIRB[employer] SENSOR SPECIALIST - GIFTED PROGRAM TEACHER [address] [place] [address] PCP - General Nurse Practitioner Family 11/11/22 Project Management Director Relationship Specialty Start Date End Date Ashley Olivera, AIRB[employer] SENSOR SPECIALIST - GIFTED PROGRAM TEACHER [address] [place] [address] PCP - General Nurse Practitioner Family 11/11/22 Project Management Director Relationship Specialty Start Date End Date Kevin Jin [facility] [address] [facility] [place] [address] PCP - General Family Medicine 12/15/22 Project Management Director Relationship Specialty Start Date End Date Kevin Jin MD [address] [facility] [place] [address] PCP - General Family Medicine 12/15/22 Project Management Director Relationship Specialty Start Date End Date Kevin Jin MD [address] [facility] [place] [address] PCP - General Family Medicine 12/15/22 Project Management Director Relationship Specialty Start Date End Date Rory Hickman MD NO FORWARDING ADDRESS PCP - General Internal Medicine 06/15/22 Project Management Director Relationship Specialty Start Date End Date Ashley Olivera, AIRB[employer] SENSOR SPECIALIST - GIFTED PROGRAM TEACHER [address] [facility] [place] [id number] PCP - General Nurse Practitioner Family 11/11/2211/27 Kevin Jin MD [address] [facility] [place] [address] PCP - General Family Medicine 12/15/22 Project Management Director Relationship Specialty Start Date End Date Kevin Jin MD [address] [facility] [place] [id number] PCP - General Family Medicine 12/15/22 INFORMATION SOURCE (unrecogn ized section and content) DATE CREATED AUTHOR AUTHOR'S ORGANIZ ATION 03/31/2023 [facility] FOR RECORDS PERTAINING TO PATIENTS WHO ARE OR HAVE BEEN ENROLLED IN A CHEMICAL DEPENDENCY/SUBSTANCEABUSE PROGRAM, SOME INFORMATION MAY BE OMITTED. This clinical summary was aggregated from multiple sources. Caution should be exercised in using it in the provision of clinical care. This summary normalizes information from multiple sources, and as a consequence, information in this document may materially change the coding, format and clinical context of patient data. In addition, data may be omitted in some cases. CLINICAL DECISIONS SHOULD BE BASED ON THE PRIMARY CLINICAL RECORDS. [facility] [employer], [facility]. provides no warranty or guarantee of the accuracy or completeness of information in this document.
[2023-04-14 11:08] LABS: Clam <0.10 kU/L (Class 0); Codfish <0.10 kU/L (Class 0); Corn <0.10 kU/L (Class 0); Crab <0.10 kU/L (Class 0); Egg, White <0.10 kU/L (Class 0); Gluten <0.10 kU/L (Class 0); Lobster <0.10 kU/L (Class 0); Milk (Cow) <0.10 kU/L (Class 0); Peanut <0.10 kU/L (Class 0); SCALLOP <0.10 kU/L (Class 0); SESAME SEED <0.10 kU/L (Class 0); Salmon <0.10 kU/L (Class 0); Shrimp <0.10 kU/L (Class 0); Soybean <0.10 kU/L (Class 0); Tuna <0.10 kU/L (Class 0); Walnut, (Food) <0.10 kU/L (Class 0); Wheat <0.10 kU/L (Class 0); Yeast <0.10 kU/L (Class 0)
== END | disposition home or self-care (01) ==
LOC: LAB 10:45
PROVIDERS: PCP Registered Nurse; Visit Provider Otolaryngology
DX: T78.40XA Allergy, unspecified, initial encounter (principal); X58.XXXA Exposure to other specified factors, initial encounter
CPT/HCPCS: 36415; 86003

== ENCOUNTER 2023-04-21 14:39 | Emergency (ER) | payer MEDICAID, SELFPAY ==
[2023-04-21 14:41] VITALS: BP 138/91; PULSE 122; RESP 18; TEMP 36.1; O2SAT 97
[2023-04-21 15:25] LABS: Absolute Lymphocyte Count 2.73 X10^3/uL (0.83-4.51); Absolute Neutrophil Count 5.5 X10^3/uL (2.0-7.7); Basophil# 0.12 X10^3/uL; Basophil% 1.3 % (0-1); Eosinophil# 0.34 X10^3/uL; Eosinophils% 3.7 % (0-5); Hematocrit 44.1 % (37-47); Hemoglobin 14.8 g/dL (12.0-15.0); Lymphocyte # 2.73 X10^3/ul (0.83-4.51); Lymphocyte % 29.7 % (19-41); Mean Corp Hgb Conc 33.6 g/dL (32-36); Mean Corpuscular Hgb 30.3 pg (27.0-32.0); Mean Corpuscular Volume 90.2 fL (81-99); Mean Platelet Vol. 9.9 fl (6.2-12.0); Monocyte# 0.45 X10^3/uL; Monocyte% 4.9 % (0-10); NRBC Flagged by Analyzer 0 % (0-5); Neutrophil # 5.54 X10^3/uL (2.7-7.7); Neutrophil % 60.3 % (47-70); Platelet Count 353 K/mm3 (150-450); RBC Distribution Width CV 12.4 % (11.6-14.6); RBC Distribution Width SD 41.1 fl (35.1-43.9); Red Blood Count 4.89 M/mm3 (4.2-5.4); White Blood Count 9.2 K/mm3 (4.4-11.0)
[2023-04-21 15:37] LABS: Anion Gap 5 (5-15); BUN 18 mg/dL (7-18); Calcium,Total 9.1 mg/dL (8.5-10.1); Chloride 108 mmol/L (98-107); EST Glomerular Filtration Rate 72 mL/min (>60); Est Glom Filt Rate - Afr Amer 87 mL/min (>60); Glucose 152 mg/dL (74-106); Sodium Level 134 mmol/L (136-145)
[2023-04-21 15:56] LABS: Internal QC Validated? YES +Cl - CLEAR BKGD; Pregnancy, Serum, hCG Quali. NEGATIVE Negative
[2023-04-21 15:58] LABS: Mucous, Urine 0 SEEN /hpf (<or=2+); White Blood Cells 0 SEEN /hpf (0-5)
[2023-04-21 16:00] LABS: Color, Urine Yellow (Yellow); Glucose, Dipstick Normal (Normal); Ketone-Dipstick Negative (Negative); Leukocyte Esterase-Dipstick Negative /ul (Negative); Nitrite-Dipstick Negative (Negative); Occult Blood-Urine 10 /ul (Negative); Protein-Dipstick Negative (Negative); Urine Bilirubin Dipstick Negative (Negative); Urine Clarity Clear (Clear); Urine Urobilinogen Normal (Normal)
[2023-04-21 16:16] VITALS: BMI 36.6
--- NOTE | 2023-04-21 16:17 | EDS_ITS ---
HPI HPI - GI History of Present Illness Chief Complaint: Abd Pain Informant: patient Abdominal Pain/Flank Pain Onset: Today and Yesterday Context: Gradual Onset Timing: Continuous Location: RLQ Current Severity: Mild Maximum Severity: Mild Nausea/Vomiting/Emesis GI Symptom: Positive for Nausea; Negative for Vomiting Onset: Today Diarrhea/Melena/Hematochezia GI Symptom: Positive for Diarrhea; Negative for Melena or Hematochezia Onset: Today and Yesterday Stool Quality: Positive for Loose Severity: Mild Associated Symptoms Associated Symptoms: Negative for Dysuria, Frequency, Hematuria or Urgency Narrative Narrative: 47-year-old female prior cholecystectomy. Also history of hypertension depression. Send right lower quadrant pain since yesterday morning. Associated nausea and some diarrhea. No dysuria. No fever. No abdominal trauma. No prior history of similar pain. Recent Illness/Hospitalization: No PFSH PFS Medical History Abnormal bruising Abnormal weight loss Acid reflux Anemia Asthma Back pain Bloating Chronic diarrhea Cough Depression Difficulty balancing Early satiety Fatigue Herpes zoster History of anxiety History of gastrointestinal disorder History of skin cancer Hx of carpal tunnel syndrome Hx of seasonal allergies Hx: UTI (urinary tract infection) IBS (irritable bowel syndrome) LUQ abdominal pain Menorrhagia with regular cycle Migraines Nausea Pelvic pain Vitamin D deficiency Home Medications albuterol sulfate 90 mcg/actuation aerosol inhaler 2 puff inhalation Q6H PRN shortness of breath or wheezing #8.5 grams 12/10/21 [Rx Last Taken Unknown] blood pressure monitor #1 ea 12/10/21 [Rx Last Taken Unknown] dicyclomine 10 mg capsule 10 mg PO TID 06/03/22 [History Last Taken Unknown] bupropion HCl 300 mg 24 hr tablet, extended release (Wellbutrin XL) 300 mg PO QAM #90 tabs 06/24/22 [Rx Last Taken Unknown] lisinopril 5 mg tablet 5 mg PO DAILY #30 tabs 08/13/22 [Rx Last Taken Unknown] fluticasone propionate 50 mcg/actuation nasal spray,suspension (Flonase Allergy Relief) 1 spray intranasal DAILY #16 grams 09/01/22 [Rx Last Taken Unknown] meloxicam 15 mg tablet 15 mg PO .every other day Pain #15 tabs 09/01/22 [Rx Last Taken Unknown] ondansetron 4 mg disintegrating tablet 4 mg PO Q8H PRN nausea and vomiting #30 tabs 09/01/22 [Rx Last Taken Unknown] fluoxetine 40 mg capsule 40 mg PO DAILY #90 caps 09/21/22 [Rx Last Taken Unknown] albuterol sulfate 2.5 mg/0.5 mL solution for nebulization 5 mg inhalation Q6H PRN shortness of breath or wheezing #30 ea 09/24/22 [Rx Last Taken Unknown] pozhwejg-qzke-dfyd 8 mg-folic 400 mcg-K 50 mcg-lutein 300 mcg tablet (Centrum Silver Women) 1 tab PO DAILY 11/06/22 [History Last Taken Unknown] metoclopramide HCl 5 mg tablet (Reglan) 2.5 mg (1/2 x 5 mg) PO BID #14 tabs 12/11/22 [Rx Last Taken Unknown] diclofenac sodium 20 mg/gram/actuation (2 %) topical soln metered-dose pump (Pennsaid) 2 pump topical BID Pain #112 grams 12/18/22 [Rx Last Taken Unknown] pantoprazole 40 mg tablet,delayed release 40 mg PO DAILY #90 tabs 01/19/23 [Rx Last Taken Unknown] Allergy/AdvReac Type Severity Reaction Status Date / Time ofloxacin Allergy Severe SWELLING Verified 04/21/23 14:40 Family History Grandmother Heart disease Colon cancer Diabetes Grandmother Diabetes Father Rheumatoid arthritis Mother Anxiety Arthritis Depression Brother Asthma Allergies Grandfather Cancer Surgical History History of carpal tunnel surgery History of tonsillectomy Hx of cholecystectomy S/P endometrial ablation Status post hysteroscopy Social History adopted: No household members: family housing: apartment number of children: 3 current occupational status: employed current occupation: [employer]- 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 Nausea. Diarrhea. Review of Systems ROS Unobtainable: Denies due to encephalopathy Constitutional Constitutional ED: Denies chills or fever(s) ENT ENT ED: Denies ear pain Cardiovascular Cardiovascular: Denies chest pain Respiratory/Chest Respiratory/Chest: Denies cough or dyspnea Gastrointestinal Gastrointestinal: Reports abdominal pain, diarrhea and nausea; Denies co nstipation, melena or vomiting Genitourinary Genitourinary ED: Denies dysuria or hematuria Musculoskeletal Musculoskeletal: Denies arthralgias, back pain or myalgias Integumentary Denies abscess or Abrasions Neurologic Neurologic: Denies headache(s) Psychiatric Psychiatric: Denies anxiety or depression Endocrine Endocrinology: Denies polydipsia Hematologic/Lymphatic Hematologic/Lymphatic: Denies easy bleeding Allergic/Immunologic Allergic/Immunologic ED: Denies mouth swelling EXAM Physical Exam Narrative Exam Narrative: 47-year-old female no acute distress. Vital signs stable afebrile. HEENT exam unremarkable. Lungs clear. Heart regular rhythm about 110 no murmur. Abdomen soft, nondistended, with mild right lower quadrant tenderness only. Right upper and left side completely nontender. No hernia or mass. No distention or obstruction. Moving all 4 extremities. Nontender no edema. Neurologically a wake alert. No focal motor deficits. Back nontender. Moving all 4 extremities. Nontender no edema. Neurologically awake alert. No focal motor deficits. Back nontender. Const Vital Signs: 04/21/23 14:41 04/21/23 18:00 Temperature 96.9 F L Temperature Source Temporal Pulse Rate 122 H 70 Respiratory Rate 18 16 Blood Pressure 138/91 H Blood Pressure Mean 106 Pulse Ox 97 Oxygen Delivery Method Room Air Positive well nourished and well developed; Negative for cachectic, contractures or unkempt General Appearance ED: well developed and NAD; Negative for unkempt, cachectic, contractures or pallor Nutritional Appearance: Negative for cachectic HEENT Reports moist mucous membranes normocephalic and atraumatic; Negative for trauma or tenderness Eyes PERRL and EOMs intact bilaterally General Eye ED: Negative for pale conjunctiva or scleral icterus Neck no lymphadenopathy, supple and no JVD General: Negative for tenderness Carotids: Negative for other Lymph Lymphatic: Negative for other Resp normal respiratory effort and clear to auscultation bilaterally Effort and Inspection: Negative for respiratory distress Auscultation: Negative for rales, rhonchi or wheezes Cardio regular rate, regular rhythm, S1 normal heart sound, S2 normal heart sound and no murmurs Rate: Negative for bradycardia or tachycardic Rhythm: Negative for abnormal rhythm GI non-distended and no masses; Negative for non-tender Inspection: Negative for abdominal distention Auscultation: normoactive bowel sounds Palpation: soft and tender; Negative for guarding, rigid, hepatomegaly, splenomegaly, hernia, mass, pulsatile mass or rebound tenderness present Back/Spine no CVA tenderness General Back: Negative for CVA tenderness Cervical Spine: Negative for cervical spine tenderness Thoracic Spine / Upper Back: Negative for thoracic spinal tenderness Lumbar Spine / Lower Back: Negative for lumbar spinal tenderness Coccyx: Negative for other Extremity full ROM General Extremety ED: Negative for edema or tenderness General Extremity: Negative for edema Neuro CN's II-XII intact bilaterally and moves all extremities Sensorium / Orientation: alert, oriented to person, oriented to place and oriented to time; Negative for orientation impaired or confused Motor Exam: strength 5/5 throughout Psych mental status grossly normal and thought process normal Appearance: Negative for unkempt Attitude: No agitated Mood & Affect: Negative for depressed, anxious or tearful Skin no wounds General Skin Exam: Negative for jaundice or pallor Lesions: no lesions Rashes: no rashes Trauma: Negative for abrasion Nails: Negative for discolored MDM MDM MDM Narrative Medical decision making narrative: 47-year-old female right lower quadrant abdominal pain with loose stools. Rule out appendicitis even though clinically I think is less likely. CAT scan and labs. Patient did not want medications for pain or nausea or anything at this time. Repeat exam at 7 PM patient is doing well. She and I went over all her normal blood work, urinalysis and CAT scan she be discharged home with right-sided abdominal pain of uncertain etiology. History & Record Review Discussion w/independent historian: Patient Additional record(s) reviewed:: Prior inpatient record, Prior outpatient record, Prior ED visit and Prior labs Lab Data Attestation: I reviewed the patient's lab results. Lab results narrative: CBC is unremarkable. White count of 9. H&H 14 and 44. Platelets 353. Electrolytes show sodium 134 gap of 5. Normal BUN of 18 creatinine 0.9. Glucose 152. Serum test negative. Urinalysis shows no acute abnormality. No nitrates. Rare bacteria. No white or red cells. CAT scan the abdomen with IV contrast shows no acute abnormality. Labs: Laboratory Results - last 24 hr 04/21/23 04/21/23 14:53 15:50 WBC 9.2 RBC 4.89 Hgb 14.8 Hct 44.1 MCV 90.2 MCH 30.3 MCHC 33.6 RDW Std Deviation 41.1 RDW Coeff of Wallace 12.4 Plt Count 353 MPV 9.9 Immature Gran % (Auto) 0.100 Neut % (Auto) 60.3 Lymph % (Auto) 29.7 [place] % (Auto) 4.9 Eos % (Auto) 3.7 Baso % (Auto) 1.3 H Absolute Neuts (auto) 5.5 Absolute Lymphs (auto) 2.73 Nucleated RBC % 0 Sodium 134 L Potassium 4.0 Chloride 108 H Carbon Dioxide 21.0 Anion Gap 5 BUN 18 Creatinine 0.90 Est GFR (MDRD) Af Amer 87 Est GFR (MDRD) Non-Af 72 BUN/Creatinine Ratio 20.0 Glucose 152 H Calcium 9.1 Serum , Qual NEGATIVE Urine Color Yellow Urine Clarity Clear Urine pH 6.0 Ur Specific [place] 1.010 Urine Protein Negative Urine Glucose (UA) Normal Urine Ketones Negative Urine Occult Blood 10 H Urine Nitrite Negative Urine Bilirubin Negative Urine Urobilinogen Normal Ur Leukocyte Esterase Negative Urine RBC 0-5 SEEN Urine WBC 0 SEEN Ur Squamous Epith Cells 0-5 SEEN Urine Bacteria RARE Urine Mucus 0 SEEN Radiography Diagnostic Testing: Clinical Impression(s) from Imaging Studies Abdomen/Pelvis CT 04/21/23 16:42 IMPRESSION: No definite acute or significant abnormality seen. Electronically Signed: Lamont Ram MD at 16:57 EST , Discharge Plan Triage Chief Complaint: Abd Pain ED Provider: Wagner Reynolds Dx/Rx/DC Orders Clinical Impression: Abdominal pain Instructions: ED Abdominal Pain Unkn Cause Fem Prescriptions: No Action albuterol sulfate 90 mcg/actuation HFA aerosol inhaler 2 puff inhalation Q6H PRN (Reason: shortness of breath or wheezing) Qty: 8.5 1RF (DME) blood pressure monitor Kit See Rx Instructions .Route Qty: 1 0RF Rx Instructions: As directed dicyclomine 10 mg capsule 10 mg PO TID bupropion HCl [Wellbutrin XL] 300 mg tablet extended release 24 hr 300 mg PO QAM Qty: 90 1RF Centrum Silver Women 8 mg iron-400 mcg-50 mcg tablet 1 tab PO DAILY lisinopril 5 mg tablet 5 mg PO DAILY Qty: 30 2RF ondansetron 4 mg tablet,disintegrating 4 mg PO Q8H PRN (Reason: nausea and vomiting) Qty: 30 5RF fluticasone propionate [Flonase Allergy Relief] 50 mcg/actuation spray,suspension 1 spray intranasal DAILY Qty: 16 3RF Rx Instructions: administer into each nostril meloxicam 15 mg tablet 15 mg PO .every other day Qty: 15 3RF Rx Instructions: Do not take in conjunction with other NSAIDs. Tylenol is okay. fluoxetine 40 mg capsule 40 mg PO DAILY Qty: 90 1RF albuterol sulfate 2.5 mg/0.5 mL solution for nebulization 5 mg inhalation Q6H PRN (Reason: shortness of breath or wheezing) Qty: 30 0RF metoclopramide HCl [Reglan] 5 mg tablet 2.5 mg PO BID Qty: 14 0RF Rx Instructions: take prior to two largest meals of the day diclofenac sodium [Pennsaid] 20 mg/gram /actuation(2 %) solution in metered- dose pump 2 pump topical BID Qty: 112 0RF Rx Instructions: apply to left knee BID pantoprazole 40 mg tablet,delayed release (DR/EC) 40 mg PO DAILY Qty: 90 2RF Primary Care Provider: Cailin Gomez NP Referrals: Cailin Gomez [employer]W LEADER, [employer]W LEADER-C [Primary Care Provider] - 3-5 Days if not improving Activity Restrictions/Additional Instructions: Your labs, CAT scan and urine were all normal. Tylenol Motrin for pain. Follow-up if not improving. Disposition Disposition: Home, Self Care
[2023-04-21 16:41] LABS: Bacteria RARE /hpf (None Seen); Red Blood Cells-Urine 0-5 SEEN /hpf (0-5); Squamous Epithelial Cells - UA 0-5 SEEN /hpf (5-10)
--- NOTE | 2023-04-21 16:42 | CT_ITS ---
STUDY: CT ABDOMEN AND PELVIS WITH CONTRAST REASON FOR EXAM: Female, 47 years old. RLQ abd pain RADIATION DOSAGE (If Supplied By Facility): CTDIvol = ( 16.59 ) mGy, DLP = ( 1377.25 ) mGycm TECHNIQUE: Transaxial images were obtained from the dome of the diaphragm to the symphysis pubis without oral contrast. IV 100mL Isovue-370 was administered. Sagittal and coronal images were reconstructed. Individualized dose optimization techniques were used for this CT. COMPARISON: 01/07/2022. FINDINGS: The visualized lung bases are unremarkable. The visualized portions of the heart are within normal limits. Normal liver. There is non-visualization of the gallbladder, which may be secondary to either contraction or a prior cholecystectomy. Normal spleen. Normal pancreas. Normal bilateral adrenal glands. Normal right kidney. Normal left kidney. Normal visualized stomach. Normal small intestine. Normal colon. The appendix is visualized and appears normal. Normal abdominal aorta. Normal inferior vena cava. Normal retroperitoneum. Normal urinary bladder. Normal visualized uterus. Normal abdominal wall. Normal osseous structures. CT/Abdomen/Pelvis W IV Cont ONLY IMPRESSION: No definite acute or significant abnormality seen. Electronically Signed: Lamont Ram MD at 16:57 EST ,
--- OUTSIDE RECORDS SUMMARY | 2023-04-21 17:21 | XMS RPT_ITS | CCD ---
Author Name Unknown Address [address] [place] [address] Organization [facility] Care Team Providers Care Bicycle Subassembler Name Role Phone Sherron ELLISON, Ashok Reardon [...] Primary Care Unavailable AWAIS MCNAIR Attending Unavailable ASHOK ARAIZA Primary Care Unavailable SADA [...] Referring Unavailable ASHLEY OLIVERA Primary Care Unavailable KEVIN JIN Primary Care Unavailable ASHLEY OLIVERA Attending Unavailable Allergies Allergy Classification Reported Allergen(s) Allergy Type Date of Onset Reaction(s) Facility (20 sources) Ofloxacin; Translations: [OFLOXACIN] Drug Allergy 01-27-2019 [facility] Work Phone: Medications Current Medications Medication [...] Drug Class(es) Dates Sig (Normalized) Sig (Original) [id number] 200 actuat albuterol 0.09 mg/actuat metered dose [...] Body height 172.7 cm Ashley Olivera APRN [employer] Work Phone: [employer] 12-16-2022 10:39-0400 Body mass index (BMI) [Ratio] 33.3 kg/m2 Ashley Olivera APRN [employer] Work Phone: [employer] 12-16-2022 10:39-0400 Body weight 99.34 kg Ashley Olivera APRN [employer] Work Phone: [employer] 12-16-2022 10:39-0400 Diastolic blood pressure 72 mm[Hg] Ashley Olivera APRN [employer] Work Phone: [employer] 12-16-2022 10:39-0400 Heart rate 78 /min Ashley Olivera [employer] Work Phone: [facility] 12-16-2022 10:39-0400 SaO2% (BldA) [Mass fraction] 97 % Ashley Olivera [employer] Work Phone: [facility] 12-16-2022 10:39-0400 Systolic blood pressure 124 mm[Hg] Ashley Olivera [employer] Work Phone: [facility] 10-30-2022 07:50-0400 Body height 172.7 cm Ashley Olivera [employer] Work Phone: [facility] 10-30-2022 07:50-0400 Body mass index (BMI) [Ratio] 33.3 kg/m2 Ashley Olivera [employer] Work Phone: [employer] 10-30-2022 07:50-0400 Body weight 99.34 kg Ashley Olivera [employer] Work Phone: [facility] 10-30-2022 07:50-0400 Diastolic blood pressure 66 mm[Hg] Ashley Olivera [employer] Work Phone: [facility] 10-30-2022 07:50-0400 Heart rate 80 /min Ashley Olivera [employer] Work Phone: [employer] 10-30-2022 07:50-0400 SaO2% (BldA) [Mass fraction] 98 % Ashley Olivera [employer] Work Phone: [employer] 10-30-2022 07:50-0400 Systolic blood pressure 118 mm[Hg] Ashley Olivera [employer] Work Phone: [facility] 06-15-2022 11:05-0400 Body temperature 97.81 [degF] Nadia Bolanos PA-C Work Phone: [facility] 06-15-2022 11:05-0400 Body weight 109.77 kg Nadia Bogner PA-C Work Phone: [facility] 06-15-2022 11:05-0400 Diastolic blood pressure 78 mm[Hg] Nadia Bogner PA-C Work Phone: [facility] 06-15-2022 11:05-0400 Heart rate 110 /min Nadia Bogner PA-C Work Phone: [facility] 06-15-2022 11:05-0400 Respiratory rate 20 /min Nadia Bogner PA-C Work Phone: [facility] 06-15-2022 11:05-0400 SaO2% (BldA) [Mass fraction] 96 % Nadia Bogner PA-C Work Phone: [facility] 06-15-2022 11:05-0400 Systolic blood pressure 136 mm[Hg] Nadia Bogner PA-C Work Phone: [facility] 01-05-2022 19:00-0400 Body temperature 98.2 [degF] Ashley Owens APRN[employer] Work Phone: [facility] 01-05-2022 19:00-0400 Body weight 108.32 kg Ashley Owens [employer] Work Phone: [facility] 01-05-2022 19:00-0400 Diastolic blood pressure 86 mm[Hg] Ashley Owens [employer] Work Phone: [facility] 01-05-2022 19:00-0400 Heart rate 89 /min Ashley Owens [employer] Work Phone: [facility] 01-05-2022 19:00-0400 Respiratory rate 20 /min Ashley Owens [employer] Work Phone: [facility] 01-05-2022 19:00-0400 SaO2% (BldA) [Mass fraction] 98 % Ashley Owens APRN[employer] Work Phone: [facility] 01-05-2022 19:00-0400 Systolic blood pressure 128 mm[Hg] Ashley Roman [employer] Work Phone: [facility] Encounters Encounter Date Encounter Type Care Provider Facility Start: 03-08-2023 Orders Only Ashley Olivera [employer] Work Phone: [facility] Start: 12-30-2022 Refill Kevin Jin MD Work Phone: [facility] Procedures Date Procedure Procedure Detail Performing Clinician Start: 11-20-2022 Gastric emptying bipin ging study Tanna Friend Work Phone: Start: 11-11-2022 HOUSE ACCOUNT TRACKI TONY (QUEST) [facility] Work Phone: Start: 10-30-2022 Lipid 1996 panel - S mansi or Plasma [facility] Work Phone: Start: 07-16-2022 HM PAP SMEAR Historical Provider Work Phone: Start: 07-16-2022 Microscopic observat ion [Identifier] in Cervix by Cyto stain Ashley Olivera [employer] Work Phone: Start: 06-15-2022 Dup-scan xtr veins unilateral/limited study Nadia Bolanos PA-C Work Phone: Start: 04-29-2022 Mammography Ashley martinez [employer] Work Phone: Start: 03-12-2022 Breath hydrogen/meth ane test Sada Salazar MD Work Phone: Start: 03-04-2022 Breath hydrogen/meth ane test Sada Salazar MD Work Phone: Start: 01-05-2022 Urnls dip stick/tabl et rgnt auto w/o microscopy Lee Rios [employer] Work Phone: Start: 11-07-2020 HM COLONOSCOPY Historic al Provider Work Phone: Start: 11-07-2020 Colonoscopy Ashley Owens [employer] Work Phone: Start: 02-23-2014 Lipid 1996 panel - S mansi or Plasma [facility] 2 Work Phone: Plan of Treatment Date Care Activity Detail Author Start: 2036 RSV Immunization aged 60 or older (1 - 1-dose 60+ series) RSV Immunization aged 60 or older (1 - 1-dose 60+ series) [facility] Start: 10-30-2032 DTaP/Tdap/Td Vaccines (2 - Td or Tdap) DTaP/Tdap/Td Vaccines (2 - Td or Tdap) [facility] Start: 11-07-2030 Screening for malignant neoplasm of colon [facility] Start: 10-31-2027 Lipid panel Lipid Panel [facility] Start: 2026 Zoster Vaccines (1 of 2) Zoster Vaccines (1 of 2) [facility] Start: 11-11-2025 Diabetes mellitus screening Diabetes Screening [facility] Start: 07-16-2025 Screening for malignant neoplasm of cervix [facility] Start: 10-17-2023 DIABETES SCREEN DIABETES SCREEN [facility] Start: 10-17-2023 Diabetes Screening Diabetes Screening [facility] Start: 05-05-2023 End: 05-05-2023 Patient encounter procedure [facility] Start: 05-01-2023 Depresssion Monitoring Depresssion Monitoring [facility] Start: 04-29-2023 Screening for malignant neoplasm of breast Mammogram [facility] Start: 12-16-2022 End: 12-17-2023 XR Knee - left 4 Views [facility] [employer] Work Phone: Immunizations Immunization Date Immunization Notes Care Provider Eben castanon 12-16-2022 Seasonal, quadrivale nt, recombinant, injectable influenza vaccine, preservative free Ashley Olivera [employer] Work Phone: [facility] 10-30-2022 tetanus toxoid, redu katy diphtheria toxoid, and acellular pertussis vaccine, adsorbed Ashley Olivera [employer] Work Phone: [facility] 07-29-2021 hepatitis B vaccine, adult dosage Ashley Olivera [employer] Work Phone: [facility] 02-28-2021 hepatitis B vaccine, adult dosage Ashley Olivera [employer] Work Phone: [facility] 02-11-2021 Moderna SARS-CoV-2 Vaccination Ashley Olivera [employer] Work Phone: [facility] 01-28-2021 hepatitis B vaccine, adult dosage Ashley Olivera [employer] Work Phone: [facility] 01-28-2021 influenza, seasonal, injectable, preservative free Ashley Olivera [employer] Work Phone: [facility] 01-28-2021 influenza virus vaccine, unspecified formulation Ashley Olivera [employer] Work Phone: [facility] 07-12-2020 COVID-19 vaccine, fu ll dose (MODERNA) Sada Salazar MD Work Phone: [facility] Work Phone: 06-13-2020 COVID-19 vaccine, fu ll dose (MODERNA) Sada Salazar MD Work Phone: [facility] Work Phone: 01-12-2020 influenza, injectabl e, quadrivalent, preservative free Ashley Olivera [employer] Work Phone: [facility] 12-22-2018 influenza, seasonal, injectable Sada Salazar MD Work Phone: [facility] 12-24-2016 influenza, seasonal, injectable Sada Salazar MD Work Phone: [facility] 03-01-2014 influenza, seasonal, injectable Sada Salazar MD Work Phone: [facility] 02-20-2013 influenza virus vaccine, unspecified formulation Sada Salazar MD Work Phone: [facility] Work Phone: 04-29-2011 tetanus toxoid, redu katy diphtheria toxoid, and acellular pertussis vaccine, adsorbed Sada Salazar MD Work Phone: [facility] Work Phone: 01-22-2011 influenza virus vaccine, unspecified formulation Sada Salazar MD Work Phone: [facility] Work Phone: 01-23-2010 influenza virus vaccine, unspecified formulation Sada Salazar MD Work Phone: [facility] 03-12-2009 novel [id number], all formulations Sada Salazar MD Work Phone: [facility] Work Phone: 12-22-2008 influenza virus vaccine, unspecified formulation Sada Salazar MD Work Phone: [facility] Work Phone: 02-03-2008 influenza virus vaccine, unspecified formulation Sada Salazar MD Work Phone: [facility] Work Phone: 01-24-2007 influenza virus vaccine, unspecified formulation Sada Salazar MD Work Phone: [facility] Work Phone: 02-01-2006 influenza virus vaccine, unspecified formulation Sada Salazar MD Work Phone: [facility] Work Phone: Payers Date Payer Category Payer Unknown [employer] [id number] 2022-Present [address] [place] [address] Commercial [id number] 2022 Unknown [id number] 2022 Medicaid [id number] 2020 Medicaid [employer] [id number] 2020-Present [phone] [address] [place] [address] Medicaid [id number] 2020 Medicaid [id number] 2020 Medicaid [id number] Social History Date Type Detail Facility Start: 01-05-2022 End: 10-29-2022 Tobacco smoking status NHIS Never smoked tobacco [facility] Start: 12-31-2020 End: 12-16-2022 Alcohol intake Current drinker of alcohol (finding) [facility] Start: 10-10-2020 History SDOH Alcohol Frequency 3 [facility] Start: 10-10-2020 History SDOH Alcohol Std Drinks 1 [facility] Start: 12-31-2020 History SDOH Alcohol Comment socially [facility] Start: 10-10-2020 History SDOH Social Connections Phone 5 [facility] Start: 10-10-2020 History SDOH Social Connections Hindu 2 [facility] Start: 10-10-2020 History SDOH Stress 4 [facility] Start: 10-10-2020 Education 12 [facility] Start: 1975 Sex Assigned At Female C [facility] Start: 01-05-2022 End: 10-29-2022 Tobacco use and exposure Smokeless tobacco non-user [facility] Start: 01-25-2022 End: 12-16-2022 Exposure to SARS-CoV-2 (event) Not sure [facility] Start: 06-15-2022 End: 10-29-2022 History of Social function [facility] Start: 06-15-2022 End: 10-29-2022 Tobacco use panel [facility] National Score (1-10 0), lower number is lower risk 81 [facility] Start: 02-27-2021 Gender identity Identifies as female gender (finding) [facility] Start: 02-27-2021 Sexual orientation Heterosexual (hiro evans) [facility] How often to you hav e a [...] Sex Assigned At Not on file [facility] Do you belong to any clubs or organizations such as holiness groups, unions, fraternal or athletic groups, or school groups? Yes [facility] Are you now , , , , never or living with a partner? [facility] How often to you hav e a drink containing alcohol? 2-4 times a month [facility] Do you feel stress - tense, restless, nervous, or anxious, or unable to sleep at night because your mind is troubled all the time - these days [OSQ] Rather much [facility] Clinical Notes 10-01-2021 to 12-30-2022 Telephone Encounter - TERE Chung CNP - 12/30/2022 1:42 PM EDTTelephone Encounter - TERE Chung CNP - 12/30/2022 1:42 PM EDTHTERE Yu CNP - 12/16/2022 11:00 AM EDT Note Date & Type Note Facility 12-30-2022 Telephone encounter Note Rx sent. Follow up as scheduled. [facility] 12-30-2022 Miscellaneous Notes Rx sent. Follow up as scheduled. Prescription Request: Last medication check: none Last physical exam: 10/30/22 Next scheduled appointment: 05/05/23 Last date of refill on this medication we have not prescribed this pt was new on 10/30/22 documented in this encounter [facility] 12-30-2022 Telephone encounter Note Prescription Request: Last medication check: none Last physical exam: 10/30/22 Next scheduled appointment: 05/05/23 Last date of refill on this medication we have not prescribed this pt was new on 10/30/22 [facility] [employer] 12-16-2022 History of Presen t illness Narrative [...] adverse reaction immediately. documented in this encounter [facility] 11-23-2022 Telephone encounter Note Rx sent. Follow up as scheduled. [facility] 11-23-2022 Miscellaneous Notes Rx sent. Follow up as scheduled. Prescription Request: Last medication check: none Last physical exam: 10/30/22 Next scheduled appointment: 05/05/23 Last date of refill on this medication we have not filled this for her yet. documented in this encounter [facility] 11-23-2022 Telephone encounter Note Prescription Request: Last medication check: none Last physical exam: 10/30/22 Next scheduled appointment: 05/05/23 Last date of refill on this medication we have not filled this for her yet. [facility] 10-30-2022 Telephone encounter Note Updating HM for colonoscopy 11/07/20 and pap 07/16/22 [facility] 10-30-2022 Miscellaneous Notes Updating HM for colonoscopy 11/07/20 and pap 07/16/22 documented in this encounter [facility] 10-30-2022 History of Presen t illness Narrative Images from the original note were not included. Patient Sammie Araiza 46 y.o. female, presents today with Chief Complaint Patient presents with [facility] thigh pain Health Maintenance [...] physical. Previous PCP was Dr. Murphy through [facility] in [place]. Does follow up with other specialists- Dr. Nava (GI in [place]), Casing Flusher- Dr. Juárez ([place]), Dr. Ashley Fair (Urology in [place]), Dr. Marshall (Pulmonology), Dr. Lim (Dermatology). Past [...] tablet Take by mouth every other day. vjgmjgbsbwlk-nzpr-qyngjuat-folic acid (Centrum) chewable tablet Chew 1 tablet [...] adverse reaction immediately. documented in this encounter [facility] 06-15-2022 Note HNO ID: [id number] Author: Analilia Gupta RDMS Service: ? Author Type: Corporate Security Manager Type: Progress Notes Filed: 06/15/2022 1:30 PM [...] RDMS RVT June 15, 2022 1:30 PM [facility] 06-15-2022 Miscellaneous Notes Patient given results and [...] Bolanos PA-C 06/15/2022 documented in this encounter [facility] 06-15-2022 Note HNO ID: [id number] Author: LORENZO King) Service: Nuclear Medicine Author [...] RT Fernando(Paula) June 15, 2022 11:29 AM [facility] 06-15-2022 Note HNO ID: [id number] Author: Nadia Bolanos PA-C Service: ? Author Type: Physician Kiln Operator Type: Progress Notes Filed: 06/15/2022 3:56 PM [...] (FLONASE) 50 mcg/actuation nasal spray Use 1 [place] in each nostril once daily. albuterol HFA [...] TABLET - BENZONATATE 100 MG CAPSULE - T-JLPLV-jzmvgbvd 2. SOB (shortness of breath) - ICD9: [...] and when to seek care sooner. - P-FBSCP-nusfeoag - US DVT LOWER RT-normal The patient indicates understanding of these issues and agrees with the plan. Nadia Bolanos PA-C [facility] 06-15-2022 History of Presen t illness Narrative [...] 2022 1:30 PM documented in this encounter [facility] 06-15-2022 History of Presen t illness Narrative [...] (FLONASE) 50 mcg/actuation nasal spray Use 1 [place] in each nostril once daily. albuterol HFA [...] TABLET - BENZONATATE 100 MG CAPSULE - A-PJGQK-dtvgxlcq 2. SOB (shortness of breath) - ICD9: [...] and when to seek care sooner. - Y-PEULT-xkehzhgu - US DVT LOWER RT-normal The patient indicates understanding of these issues and agrees with the plan. Nadia Bolanos PA-C documented in this encounter [facility] 05-25-2022 Miscellaneous Notes Pharmacy escripts requesting the following refill: Requested Prescriptions Pending Prescriptions Disp Refills dicyclomine (BENTYL) 10 mg capsule 30 capsule 3 Sig: Take 1 capsule by mouth three times daily as needed (abdominal pain). Please review and advise. Marck Alexander RN documented in this encounter [facility] 04-03-2022 Miscellaneous Notes Attempted to call the [...] obtain breath testing. documented in this encounter [facility] 04-01-2022 Note HNO ID: [id number] Author: Cheryl Tucker LPN Service: ? Author Type: LICENSED NURSE Type: Progress Notes Filed: 04/01/2022 12:37 PM Note Text: Name: Sammie Araiza CC#: [id number] Date: 04/01/2022 24 HOUR pH PROBE REMOVAL The pH probe was removed by patient and the data was downloaded from the industrial education teacher for physician review. Cheryl Tucker LPN [facility] 04-01-2022 History of Presen t illness Narrative Name: Sammie Araiza [facility]#: [id number] Date: 04/01/2022 24 HOUR pH PROBE REMOVAL The pH probe was removed by patient and the data was downloaded from the industrial education teacher for physician review. Cheryl Tucker LPN documented in this encounter [facility] 03-19-2022 Note HNO ID: [id number] Author: Cheryl Tucker LPN Service: ? Author Type: LICENSED NURSE Type: Progress Notes Filed: 03/19/2022 12:08 PM Note Text: Name: Sammie Araiza [facility]#: [id number] Date: 03/19/2022 24 HOUR pH PROBE INSERTION [...] tomorrow for probe removal. Cheryl Tucker LPN [facility] 03-19-2022 History of Presen t illness Narrative Name: Sammie Araiza [facility]#: [id number] Date: 03/19/2022 24 HOUR pH PROBE INSERTION [...] Cheryl Tucker LPN documented in this encounter [facility] 03-17-2022 Miscellaneous Notes Called patient to reschedule appointment from 03/18 to Apr 24, 2022 at 1000 am.TONNY Perez documented in this encounter [facility] 03-12-2022 Note HNO ID: [id number] Author: TONNY Perez Service: ? Author Type: Clinical Tank Setter Helper Type: Progress Notes Filed: 03/12/2022 8:48 AM [...] order to be positive for Bacterial Overgrowth [facility] 03-12-2022 History of Presen t illness Narrative [...] for Bacterial Overgrowth documented in this encounter [facility] 03-05-2022 Note HNO ID: [id number] Author: Jenny Andres MD Service: ? Author Type: Physician Type: Progress Notes Filed: 03/05/2022 9:28 AM Note Text: Rev'd [facility] 03-05-2022 History of Presen t illness Narrative Rev'd documented in this encounter [facility] 03-04-2022 Note HNO ID: [id number] Author: TONNY Perez Service: ? Author Type: Clinical Tank Setter Helper Type: Progress Notes Filed: 03/04/2022 2:50 PM [...] (not given to patient): Pending TONNY Perez [facility] 03-04-2022 History of Presen t illness Narrative [...] Hydrogen PPM: 3 Methane PPM: [address] Symptoms developed during the study period: None Patient Results Preliminary Test Results (not given to patient): Pending TONNY Perez documented in this encounter [facility] 02-11-2022 Miscellaneous Notes Patient phones requesting refills as follows: Last office visit: Visit date not found Next office visit: Visit date not found Requested Prescriptions Pending Prescriptions Disp Refills omeprazole (PRILOSEC) 40 mg capsule 60 capsule 3 Sig: Take 1 capsule by mouth twice daily. Please review and advise. Paulina Nunez LPN Please file if appropriate documented in this encounter [facility] 01-22-2022 Miscellaneous Notes GI workup by Dr. Salazar has been faxed per pt request. Marck Alexander RN documented in this encounter [facility] 01-05-2022 Note HNO ID: [id number] Author: Ashley Owens [employer] Service: ? Author Type: Nurse Practitioner Type: [...] (FLONASE) 50 mcg/actuation nasal spray Use 1 [place] in each nostril once daily. omeprazole (PRILOSEC) [...] Patient agreeable to treatment plan. Ashley Owens APRN.[facility] 01-05-2022 History of Presen t illness [...] (FLONASE) 50 mcg/actuation nasal spray Use 1 [place] in each nostril once daily. omeprazole (PRILOSEC) [...] Ashley Owens APRN.[facility] documented in this encounter [facility] 10-01-2021 Miscellaneous Notes Pt requesting refills on the following medication. Please file if appropriate. documented in this encounter [facility] Diagnosis Burning with urination- Primary Dysuria [facility] Diagnosis Left upper quadrant abdominal pain [facility] Diagnosis Bloating Flatulence, eructation, and gas pain [facility]* Diagnosis Bloating- Primary Flatulence, eructation, and gas pain documented in this encounter [facility] note* Diagnosis Bloating Flatulence, eructation, and gas pain [facility] Diagnosis Abdominal pain, unspecified abdominal location documented in this encounter [facility] note* Diagnosis Abdominal pain, unspecified abdominal location- Primary [facility] Diagnosis Left sided abdominal pain Abdominal pain, unspecified site [facility] Diagnosis Acute cough- Primary SOB (shortness of breath) Shortness of breath Right leg pain Pain in limb [facility] Diagnosis Well adult exam- Primary Routine [...] vaccination Need for prophylactic vaccination with combined jczuuigwea-zrizbai-jwjjjxdxd (DTP) vaccine Screening for lipoid disorders Screening for diabetes mellitus documented [facility] Diagnosis Irritable bowel syndrome without diarrhea documented in this encounter [facility]* Diagnosis Primary hypertension Unspecified essential hypertension documented in this encounter [facility]* Diagnosis Injury due to fall, initial encounter- Primary Left knee injury, initial encounter Flu vaccine need documented in this encounter [facility]* Diagnosis Injury due to fall, initial encounter Left knee injury, initial encounter documented in this encounter [facility]* Diagnosis Depressive disorder Depressive disorder, not elsewhere classified Anxiety Anxiety state, unspecified [facility] Right leg pain Pain in limb [facility] Diagnosis Irritable bowel syndrome without diarrhea- Primary Irritable bowel syndrome without diarrhea documented [facility]* Attachments The following attachments cannot be sent through Care Everywhere. * Nocturnal (Nighttime) Leg Cramps (Austrian) * Tdap Vaccine (Austrian) [facility] Diagnostic Procedure Only (Urgent) - Closed Specialty Diagnoses / Procedures Referred By Contac t Referred To Contact US IMAGING Diagnoses Right leg pain Procedures US DVT LOWER RT DUP-SCAN XTR VEINS UNILATERAL/LIMITED STUDY Nadia Bolanos PA-C [address] [place] [address] Us Imaging Referral ID Status Reason Start Date Expiration Date V isits Requested Visits Authorized [id number] Closed Auto-Generate d Referral 06/15/2022 07/15/2023 1 1 [facility] for referral (narrative)* Diagnostic Procedure Only (Urgent) - Closed Specialty Diagnoses / Procedures Referred By Contac t Referred To Contact US IMAGING Diagnoses Right leg pain Procedures US DVT LOWER RT DUP-SCAN XTR VEINS UNILATERAL/LIMITED STUDY Nadia Bolanos PA-C [address] [place] [address] [place] [address] Referral ID Status Reason Start Date Expiration Date V isits Requested Visits Authorized [id number] Closed Auto-Generate d Referral 06/15/2022 07/15/2023 1 1 [facility] Advance Directives No Advanced Directives Records FoundDocuments on File Type Date Recorded 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 Advance Directive(s) 11/07/2020 6:26 AM Summary Purpose Family History No Family History Records FoundNo Family History Records Found Reason for Referral Specialty Diagnoses / Procedures Referred By Contac t Referred To Contact Radiology Diagnoses Irritable bowel syndrome without diarrhea Procedures NM gastric emptying solid Friend, Tanna [address], [address] [place] [address] Referral ID Status Reason Start Date Expiration Date Visits Re quested Visits Authorized [id number] Closed 11/11/2022 05/10/2023 1 1 Additional Source Comments Source Comments (unrecognize d section and content) In the event this informatio n is protected by the Federal Confidentiality of Alcohol and Drug Abuse Patient Records regulations: The Federal rules restrict any use of the information to criminally investigate or prosecute any alcohol or drug abuse patient.[facility] the event this information is protected by the Federal Confidentiality of Alcohol and Drug Abuse Patient Records regulations: The Federal rules restrict any use of the information to criminally investigate or prosecute any alcohol or drug abuse patient.[facility] the event this information is protected by the Federal Confidentiality of Alcohol and Drug Abuse Patient Records regulations: The Federal rules restrict any use of the information to criminally investigate or prosecute any alcohol or drug abuse patient.[facility] the event this information is protected by the Federal Confidentiality of Alcohol and Drug Abuse Patient Records regulations: The Federal rules restrict any use of the information to criminally investigate or prosecute any alcohol or drug abuse patient.[facility] the event this information is protected by the Federal Confidentiality of Alcohol and Drug Abuse Patient Records regulations: The Federal rules restrict any use of the information to criminally investigate or prosecute any alcohol or drug abuse patient.[facility] the event this information is protected by the Federal Confidentiality of Alcohol and Drug Abuse Patient Records regulations: The Federal rules restrict any use of the information to criminally investigate or prosecute any alcohol or drug abuse patient.[facility] the event this information is protected by the Federal Confidentiality of Alcohol and Drug Abuse Patient Records regulations: The Federal rules restrict any use of the information to criminally investigate or prosecute any alcohol or drug abuse patient.[facility] the event this information is protected by the Federal Confidentiality of Alcohol and Drug Abuse Patient Records regulations: The Federal rules restrict any use of the information to criminally investigate or prosecute any alcohol or drug abuse patient.[facility] the event this information is protected by the Federal Confidentiality of Alcohol and Drug Abuse Patient Records regulations: The Federal rules restrict any use of the information to criminally investigate or prosecute any alcohol or drug abuse patient.[facility] the event this information is protected by the Federal Confidentiality of Alcohol and Drug Abuse Patient Records regulations: The Federal rules restrict any use of the information to criminally investigate or prosecute any alcohol or drug abuse patient.[facility] the event this information is protected by the Federal Confidentiality of Alcohol and Drug Abuse Patient Records regulations: The Federal rules restrict any use of the information to criminally investigate or prosecute any alcohol or drug abuse patient.[facility] the event this information is protected by the Federal Confidentiality of Alcohol and Drug Abuse Patient Records regulations: The Federal rules restrict any use of the information to criminally investigate or prosecute any alcohol or drug abuse patient.[facility] the event this information is protected by the Federal Confidentiality of Alcohol and Drug Abuse Patient Records regulations: The Federal rules restrict any use of the information to criminally investigate or prosecute any alcohol or drug abuse patient.[facility] the event this information is protected by the Federal Confidentiality of Alcohol and Drug Abuse Patient Records regulations: The Federal rules restrict any use of the information to criminally investigate or prosecute any alcohol or drug abuse patient.[facility] the event this information is protected by the Federal Confidentiality of Alcohol and Drug Abuse Patient Records regulations: The Federal rules restrict any use of the information to criminally investigate or prosecute any alcohol or drug abuse patient.[facility] Reason for Visit (unrecogniz ed section and content) Specialty Diagnoses / Procedures Referred By Contac t Referred To Contact [facility] Diagnoses Bloating Procedures BREATH TEST GLUCOSE BREATH HYDROGEN/METHANE TEST Sada Salazar MD [address] [place] [address] [facility] [address] [place] [address] Referral ID Status Reason Start Date Expiration Date V isits Requested Visits Authorized [id number] Closed Auto-Generate d Referral 01/30/2022 01/29/2023 1 1 Reason Onset Date Comments Refill Request 10/01/2021 Reason Comments UTI Burning with urinati on, lower abd pain x2 days Reason Onset Date Comments Refill Request 02/11/2022 Specialty Diagnoses / Procedures Referred By Contac t Referred To Contact [facility] Diagnoses Bloating Procedures BREATH TEST LACTOSE BREATH HYDROGEN/METHANE TEST Sada Salazar MD [address] [facility] [place] [address] [place] [address] Referral ID Status Reason Start Date Expiration Date V isits Requested Visits Authorized [id number] Closed Auto-Generate d Referral 02/18/2022 03/28/2022 1 1 Reason Comments Gas Reason Comments Patient Question Patient Update Reason Onset Date Comments Procedure 03/19/2022 Specialty Diagnoses / Procedures Referred By Contac t Referred To Contact [facility] Diagnoses Abdominal pain, unspecified abdominal location Procedures PH IMPEDANCE INSERT OFF MEDS ESOPHGL FUNCJ G-ESOP RFLX IMPD Sada Carballo MD [address] [place] [address] [facility] [address] [place] [address] Referral ID Status Reason Start Date Expiration Date V isits Requested Visits Authorized [id number] Closed Auto-Generate d Referral 01/30/2022 01/29/2023 1 [...] Friend, Tanna [address], [address] [place] [address] Referral ID Status Reason Start Date Expiration Date Visits Re quested Visits Authorized [id number] Closed 11/11/2022 05/10/2023 1 1 Reason Onset Date Comments Med Refill 11/22/2022 Reason Comments Fall Knee Pain Left knee pain Reason Onset Date Comments Med Refill 12/30/2022 Reason Comments Radiology US Specialty Diagnoses / Procedures Referred By Contac t Referred To Contact US IMAGING Diagnoses Right leg pain Procedures US DVT LOWER RT DUP-SCAN XTR VEINS UNILATERAL/LIMITED STUDY Nadia Bolanos PA-C [address] [place] [address] [place] [address] Referral ID Status Reason Start Date Expiration Date V isits Requested Visits Authorized [id number] Closed Auto-Generate d Referral 06/15/2022 07/15/2023 1 1 Care Teams (unrecognized sec tion and content) Bicycle Subassembler Relationship Specialty Start Date End Date Ashok Araiza MD PCP - General Family Medicine 03/21/17 Bicycle Subassembler Relationship Specialty Start Date End Date Ashok Araiza MD PCP - General Family Medicine 03/21/17 Bicycle Subassembler Relationship Specialty Start Date End Date Ashok Araiza MD PCP - General Family Medicine 03/21/17 Bicycle Subassembler Relationship Specialty Start Date End Date Ashok Araiza MD PCP - General Family Medicine 03/21/17 Bicycle Subassembler Relationship Specialty Start Date End Date Ashok Araiza MD PCP - General Family Medicine 03/21/17 Bicycle Subassembler Relationship Specialty Start Date End Date Ashok Araiza MD PCP - General Family Medicine 03/21/17 Bicycle Subassembler Relationship Specialty Start Date End Date Ashok Araiza MD PCP - General Family Medicine 03/21/17 Bicycle Subassembler Relationship Specialty Start Date End Date Ashok Araiza MD PCP - General Family Medicine 03/21/17 Bicycle Subassembler Relationship Specialty Start Date End Date Ashok Araiza MD PCP - General Family Medicine 03/21/17 Bicycle Subassembler Relationship Specialty Start Date End Date Rory Hickman MD NO FORWARDING ADDRESS PCP - General Internal Medicine 06/15/22 Bicycle Subassembler Relationship Specialty Start Date End Date Rory Hickman MD NO FORWARDING ADDRESS PCP - General Internal Medicine 06/15/22 Bicycle Subassembler Relationship Specialty Start Date End Date Asohk Araiza MD PCP - General Family Medicine 03/21/17 06/14/22 Rory Hickman MD NO FORWARDING ADDRESS PCP - General Internal Medicine 06/15/22 Bicycle Subassembler Relationship Specialty Start Date End Date Kevin Jin MD [address] [place] [address] PCP - General Family Medicine 10/29/22 Bicycle Subassembler Relationship Specialty Start Date End Date Kevin Jin MD [address] [place] [address] PCP - General Family Medicine 10/29/22 Bicycle Subassembler Relationship Specialty Start Date End Date Ashley Olivera, [employer] [address] [place] [address] PCP - General Nurse Practitioner Family 11/11/22 Bicycle Subassembler Relationship Specialty Start Date End Date Ashley Olivera, [employer] [address] [place] [address] PCP - General Nurse Practitioner Family 11/11/22 Bicycle Subassembler Relationship Specialty Start Date End Date Ashley Olivera, [employer] [address] [place] [address] PCP - General Nurse Practitioner Family 11/11/22 Bicycle Subassembler Relationship Specialty Start Date End Date Kevin Jin MD [address] [place] [address] PCP - General Family Medicine 12/15/22 Bicycle Subassembler Relationship Specialty Start Date End Date Kevin Jin MD [address] [place] [address] PCP - General Family Medicine 12/15/22 Bicycle Subassembler Relationship Specialty Start Date End Date Kevin Jin MD [address] [place] [address] PCP - General Family Medicine 12/15/22 Bicycle Subassembler Relationship Specialty Start Date End Date Rory Hickman MD NO FORWARDING ADDRESS PCP - General Internal Medicine 06/15/22 Bicycle Subassembler Relationship Specialty Start Date End Date Ashley Olivera, [employer] [address] [facility] [place] [id number] PCP - General Nurse Practitioner Family 11/11/2211/27 Kevin Jin MD [address] [place] [address] PCP - General Family Medicine 12/15/22 Bicycle Subassembler Relationship Specialty Start Date End Date Kevin Jin MD [address] [facility] [place] [id number] PCP - General Family Medicine 12/15/22 INFORMATION SOURCE (unrecogn ized section and content) DATE CREATED AUTHOR AUTHOR'S ORGANIZ ATION 04/17/2023 [facility] FOR RECORDS PERTAINING TO PATIENTS WHO [...] BE BASED ON THE PRIMARY CLINICAL RECORDS. [facility], [facility]. provides no warranty or guarantee of the accuracy or completeness of information in this document.
[2023-04-21 18:00] VITALS: PULSE 70; RESP 16
[2023-04-21 19:18] VITALS: BP 134/76; PULSE 64; RESP 16; TEMP 36.4; O2SAT 99
== END 2023-04-21 19:18 | disposition home or self-care (01) ==
PROVIDERS: Emergency Provider Emergency Medicine; PCP Registered Nurse; Visit Provider Emergency Medicine
DX: R10.9 Unspecified abdominal pain (principal); Z90.49 Acquired absence of other specified parts of digestive tract; I10 Essential (primary) hypertension; J45.909 Unspecified asthma, uncomplicated
CPT/HCPCS: 74177; 80048; 81001; 84703; 85025; 99282; Q9967; A4216

== ENCOUNTER → 2023-04-30 | Outpatient (CLI) | payer MEDICAID, SELFPAY ==
--- NOTE | 2023-04-30 10:17 | BI_ITS ---
MAMMOGRAPHY - BILATERAL SCREENING REASON FOR EXAM: Female, 47 years old. Routine annual screening examination. PERTINENT HISTORY: Non-contributory. TECHNIQUE: Digital bilateral breast silvio (3D mammographic acquisition) in the CC and MLO projections. 2-D mediolateral oblique (MLO) and craniocaudad (CC) views of both breasts were obtained. CAD: Full Field Digital Mammography with Computer Added Detection was performed. COMPARISON: Comparison is made with prior study dated April 29, 2022 and April 28, 2021. FINDINGS: Breast Composition: There are scattered areas of fibroglandular density. There are no dominant masses or suspicious calcifications. Stable small benign-appearing bilateral axillary lymph nodes. No other significant abnormalities are identified. There has been no significant change since the prior study. BI/SCRN MAMM (CAD)W/SILVIO BILAT IMPRESSION: Stable bilateral screening mammogram. Yearly follow-up mammogram recommended. (A) ASSESSMENT CATEGORY: BIRADS Category 2: Benign. A letter regarding these results will be sent to the patient by the facility within 30 days. Approximately 10% of breast cancers are not detected by mammography. A normal mammogram should not delay biopsy of a clinically suspicious abnormality. [id number] Electronically Signed: Shaquille Menendez MD at 12:59 EST ,
== END | disposition home or self-care (01) ==
LOC: OPBI 10:15
PROVIDERS: PCP Registered Nurse; Referring Provider Registered Nurse; Visit Provider Registered Nurse
DX: Z12.31 Encounter for screening mammogram for malignant neoplasm of breast (principal)
CPT/HCPCS: 77063; 77067

== ENCOUNTER → 2023-05-05 | Outpatient (CLI) | payer MEDICAID, SELFPAY ==
[2023-05-11 17:07] LABS: Chromogranin A 647.1 ng/mL (0.0-101.8); Immunoglobulin A 131 mg/dL (87-352); Immunoglobulin E 34 IU/mL (6-495); Immunoglobulin G 1246 mg/dL (586-1602); Immunoglobulin M 131 mg/dL (26-217)
[2023-05-12 14:09] LABS: Pancreatic Elastase, Fecal 133 (>200)
[2023-05-13 21:07] LABS: Calprotectin, Stool 119 ug/g (0-120); Fats, Neutral Normal (.); Fats, Total Increased (.)
== END | disposition home or self-care (01) ==
LOC: LAB 16:45
PROVIDERS: PCP Registered Nurse; Referring Provider Internal Medicine Gastroenterology; Visit Provider Internal Medicine Gastroenterology
DX: K58.9 Irritable bowel syndrome, unspecified (principal)
CPT/HCPCS: 36415; 82274; 82653; 82705; 82784; 82785; 83630; 83993; 86316; 87177; 87209; 87329; 87493; 87506

== ENCOUNTER 2023-06-10 05:49 | Day surgery (SDC) | payer MEDICAID, SELFPAY ==
[2023-06-04 10:06] LABS: International Normalized Ratio 1.1; Prothrombin Time (Protime)PT. 13.7 SECONDS (11.7-14.9)
[2023-06-04 10:42] LABS: AST(SGOT) 22 U/L (15-37); Alanine Aminotransfer ALT/SGPT 21 U/L (13-56); Albumin, Serum 3.6 g/dL (3.2-5.0); Alkaline Phosphatase 76 U/L (45-117); Bilirubin, Direct 0.11 mg/dL (0.00-0.30); Globulin 3.5 g/dL (2.2-4.2); Protein, Total 7.1 g/dL (6.4-8.2)
--- NOTE | 2023-06-10 | BLA_PTH ---
PATHOLOGY RESULTS PATIENT: MARCELINO CARDONA LOC: [facility] U#:[id number] AGE/SX: 47/F ROOM: RE06/10/[address]: Dr. Cailin Fair MD : [id number] BED: DIS: 06/10/2023 SPEC #: [id number] RECD: 06/10/23 11:31 STATUS: LAINEY GREER #: [id number] CARO: 06/10/23 00:[address]: Cailin Fair DEPT: SURGICAL PATHOLOGY RECD BY: Felisha Davidson ENTERED: 06/10/23 11:32 SP TYPE: BLADDER BX OTHR DR: MD Cailin Contreras, SHERINE-Krishan Tissues: Urinary bladder, NOS Procedures: Surgery Specimen Level IV HEADER OPERATION: Cystoscopy biopsy, Fulguration, bladder tumor PRE-OP DIAGNOSIS: Bladder tumor TISSUE SUBMITTED: Bladder biopsy MICROSCOPIC DIAGNOSIS Urinary bladder tumor, biopsy; Urothelial hyperplasia with squamous differentiation. Mild chronic inflammation. No evidence of malignancy. AM/mr 06/11/2023 COMMENT Case has been reviewed in consultation with Dr. Tran who concurs with the above diagnosis. IDC:SJ MICROSCOPIC DESCRIPTION Slides are reviewed. GROSS DESCRIPTION Received in fixative is one container labeled with the patient's name and designated Bladder biopsy. The specimen consists of one irregular fragment of light pablo soft tissue that measures 0.3 x 0.1 x 0.1 cm. The specimen is totally submitted in one cassette. YULI/ 06/10/2023 TC:3 CPT:61759
--- OUTSIDE RECORDS SUMMARY | 2023-06-10 05:52 | XMS RPT_ITS | CCD ---
Author Name Unknown Address [address] [place] [address] Organization [facility] Care Team Providers Care Coal Loader Name Role Phone Sherron ELLISON, Ashok Reardon [...] Ashley Marcelino APRN, CNP Primary Care Provider ASHLEY OLIVERA Attending Unavailable KEVIN JIN Primary Care Unavailable ASHLEY OLIVERA Attending Unavailable KEVIN JIN Primary Care Unavailable FRIEND, TANNA Attending Unavailable FRIEND, TANNA Referring Unavailable ASHLEY OLIVERA Primary Care Unavailable ASHLEY OLIVERA Attending Unavailable ASHLEY OLIVERA Referring Unavailable KEVIN JIN Primary Care Unavailable ASHLEY OLIVERA Attending Unavailable KEVIN JIN [facility] Unavailable KEVIN JIN Primary [facility] Unavailable Allergies Allergy Classification Reported Allergen(s) Allergy Type Date of Onset Reaction(s) Facility (20 sources) Ofloxacin; Translations: [OFLOXACIN] Drug Allergy 01-27-2019 [facility] Work Phone: Medications Current Medications Medication Drug Class(es) Dates Sig (Normalized) Sig (Original) [id number] 200 actuat albuterol 0.09 mg/actuat metered dose inhaler (20 sources) beta2-Adrenergic Agonist Start: 03-30-2023 take 2 puff(s) by inhalation every six hours as needed for wheezing albuterol 108 (90 Base) MCG/ACT inhaler Indications: Mild intermittent asthma without complication Inhale 2 puffs every 6 hours as needed for wheezing. 18 g 2 03/30/2023 Active Completed/Discontinued Medications Medication Drug Class(es) Dates Sig (Normalized) Sig (Original) benzonatate 100 mg oral capsule (3 sources) Non-narcotic Antitussive Start: 06-15-2022 take 100-200 mg by mouth every eight hours as needed for cough and dyspnea and cough and dyspnea benzonatate (TESSALON PERLES) 100 mg capsule Indications: Acute cough , SOB (shortness of breath) Take 1-2 capsules by mouth three times daily as needed. 30 capsule 0 06/15/2022 Active Problems Active Problems Problem Classification Problem Date Documented Da te Episodic/Chronic Abdominal pain (9 sources) Left upper quadrant pain; Translations: [Left upper quadrant pain] Onset: 2 Episodic Anxiety disorders (20 sources) Anxiety; Translations: [Anxiety disorder, unspecified] Onset: 0 03-24-2021 Chronic Asthma (20 sources) Reactive airway disease; Translations: [Unspecified asthma, uncomplicated] Onset: 3 03-24-2021 Chronic Diabetes mellitus without complication (18 sources) Impaired fasting glycemia; Translations: [Impaired fasting glucose] Onset: 8 03-21-2010 Episodic Esophageal disorders (19 sources) Gastroesophageal reflux disease; Translations: [Gastro-esophageal reflux disease without esophagitis] Onset: 3 10-30-2022 Chronic Essential hypertension (20 sources) Essential hypertension; Translations: [Essential (primary) hypertension] Onset: 3 10-30-2022 Chronic Genitourinary symptoms and ill-defined conditions (1 source) Scalding pain on urination ; Translations: [Dysuria] Episodic Immunizations and screening for infectious disease (10 sources) Requires diphtheria, tetanus and pertussis vaccination; Translations: [Encounter for immunization] Onset: 3 10-30-2022 Episodic Mood disorders (20 sources) Depressive disorder; Translations: [Other specified depressive episodes] Onset: 8 03-21-2010 Chronic Mood disorders (2 sources) Mood disorders; Translations: [Depression, unspecified] Onset: 3 Nausea and vomiting (3 sources) Nausea; Translations: [Nausea] Onset: 4 04-28-2023 Episodic Nutritional deficiencies (18 sources) Vitamin D deficiency; Translations: [Vitamin D deficiency, unspecified] Onset: 2 10-30-2022 Chronic Osteoarthritis (18 sources) Bilateral osteoarthritis of knees; Translations: [Bilateral [...] Onset: 3 03-24-2021 Chronic Other gastrointestinal disorders (3 sources) Irritable bowel syndrome with diarrhea; Translations: [...] Chronic Other nutritional; endocrine; and metabolic disorders (1 source) Obesity caused by energy imbalance; Translations: [Other obesity due to excess calories] 05-03-2023 Chronic Other nutritional; endocrine; and metabolic disorders (2 sources) Other obesity due to excess calories; Translations: [Other obesity due to excess calories] Onset: 3 Chronic Other nutritional; endocrine; and metabolic disorders (2 sources) Body mass index (BMI) 33.0-33.9, adult; Translations: [Body mass index (BMI) 33.0-33.9, adult] Onset: 3 Chronic Other nutritional; endocrine; and metabolic disorders (1 source) Weight gain; Translations: [Abnormal weight gain] 04-28-2023 Episodic Other nutritional; endocrine; and metabolic disorders (2 sources) Abnormal weight gain; Translations: [Abnormal weight gain] Onset: 4 Episodic Unclassified (1 source) Acute cough; Translations: [Acute cough] Onset: 3 Past or Other Problems Problem Classification Problem Date Documented Da te Episodic/Chronic Administrative/social admission (5 sources) Patient encounter status; Translations: [Persons encountering health services in other specified circumstances] Onset: 10-30-2022 10-30-2022 Episodic Cancer of cervix (15 sources) Low grade squamous intraepithelial lesion on cervical Papanicolaou smear; Translations: [Low grade squamous intraepithelial lesion on cytologic smear of cervix (LGSIL)] Onset: 10-07-2022 Resolved: 10-30-2022 10-30-2022 Episodic Conditions associated with dizziness or vertigo (15 sources) Vestibular nerve disorder; 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, unspecified ear] Onset: 06-15-2013 06-15-2013 Episodic E Codes: Fall (5 sources) Falling injury; Translations: [Unspecified fall, initial encounter] Onset: 12-16-2022 12-16-2022 Episodic Headache; including migraine (15 sources) Headache; Translations: [Headache] Onset: 06-15-2013 06-15-2013 Episodic Other connective tissue disease (15 sources) [...] Vital Sign Value Performing Clinician Dieudonne roldan 04-28-2023 10:04-0500 Body height 172.7 cm Ashley Abbasi CNP Work Phone: [facility] 04-28-2023 10:04-0500 Body mass index (BMI) [Ratio] 36.49 kg/m2 Ashley Olivera PHOTOGRAPHIC ENLARGER OPERATOR - MUSIC COORDINATOR Work Phone: [facility] 04-28-2023 10:04-0500 Body weight 108.86 kg Ashley Olivera PHOTOGRAPHIC ENLARGER OPERATOR - MUSIC COORDINATOR Work Phone: [facility] 04-28-2023 10:04-0500 Diastolic blood pressure 71 mm[Hg] Ashley Olivera PHOTOGRAPHIC ENLARGER OPERATOR - MUSIC COORDINATOR Work Phone: [facility] 04-28-2023 10:04-0500 Heart rate 92 /min Ashley Olivera PHOTOGRAPHIC ENLARGER OPERATOR - MUSIC COORDINATOR Work Phone: [facility] [employer] 04-28-2023 10:04-0500 SaO2% (BldA) [Mass fraction] 97 % Ashley Olivera PHOTOGRAPHIC ENLARGER OPERATOR - MUSIC COORDINATOR Work Phone: [facility] [employer] 04-28-2023 10:04-0500 Systolic blood pressure 139 mm[Hg] Ashley Olivera PHOTOGRAPHIC ENLARGER OPERATOR - MUSIC COORDINATOR Work Phone: [facility] 12-16-2022 10:39-0400 Body height 172.7 cm Ashley Olivera PHOTOGRAPHIC ENLARGER OPERATOR - MUSIC COORDINATOR Work Phone: [facility] [employer] 12-16-2022 10:39-0400 Body mass index (BMI) [Ratio] 33.3 kg/m2 Ashley Olivera PHOTOGRAPHIC ENLARGER OPERATOR - MUSIC COORDINATOR Work Phone: [facility] 12-16-2022 10:39-0400 Body weight 99.34 kg Ashley Olivera PHOTOGRAPHIC ENLARGER OPERATOR - MUSIC COORDINATOR Work Phone: [facility] [employer] 12-16-2022 10:39-0400 Diastolic blood pressure 72 mm[Hg] Ashley Olivera PHOTOGRAPHIC ENLARGER OPERATOR - MUSIC COORDINATOR Work Phone: [facility] [employer] 12-16-2022 10:39-0400 Heart rate 78 /min Ashley Olivera PHOTOGRAPHIC ENLARGER OPERATOR - MUSIC COORDINATOR Work Phone: [facility] [employer] 12-16-2022 10:39-0400 SaO2% (BldA) [Mass fraction] 97 % Ashley Olivera PHOTOGRAPHIC ENLARGER OPERATOR - MUSIC COORDINATOR Work Phone: [facility] [employer] 12-16-2022 10:39-0400 Systolic blood pressure 124 mm[Hg] Ashley Olivera PHOTOGRAPHIC ENLARGER OPERATOR - MUSIC COORDINATOR Work Phone: [facility] [employer] 10-30-2022 07:50-0400 Body height 172.7 cm Ashley Olivera PHOTOGRAPHIC ENLARGER OPERATOR - MUSIC COORDINATOR Work Phone: [facility] [employer] 10-30-2022 07:50-0400 Body mass index (BMI) [Ratio] 33.3 kg/m2 Ashley Olivera PHOTOGRAPHIC ENLARGER OPERATOR - MUSIC COORDINATOR Work Phone: [facility] [employer] 10-30-2022 07:50-0400 Body weight 99.34 kg Ashley Olivera PHOTOGRAPHIC ENLARGER OPERATOR - MUSIC COORDINATOR Work Phone: [facility] [employer] 10-30-2022 07:50-0400 Diastolic blood pressure 66 mm[Hg] Ashley Olivera PHOTOGRAPHIC ENLARGER OPERATOR - MUSIC COORDINATOR Work Phone: [facility] [employer] 10-30-2022 07:50-0400 Heart rate 80 /min Ashley Olivera PHOTOGRAPHIC ENLARGER OPERATOR - MUSIC COORDINATOR Work Phone: [facility] [employer] 10-30-2022 07:50-0400 SaO2% (BldA) [Mass fraction] 98 % Ashley Olivera PHOTOGRAPHIC ENLARGER OPERATOR - MUSIC COORDINATOR Work Phone: [facility] [employer] 10-30-2022 07:50-0400 Systolic blood pressure 118 mm[Hg] Ashley Olivera PHOTOGRAPHIC ENLARGER OPERATOR - MUSIC COORDINATOR Work Phone: [facility] [employer] 06-15-2022 11:05-0400 Body temperature 97.81 [degF] Nadia Bogner PA-C Work Phone: [facility] 06-15-2022 11:05-0400 Body weight 109.77 kg Nadia Bogner PA-C Work Phone: [facility] 06-15-2022 11:05-0400 Diastolic blood pressure 78 mm[Hg] Nadia Bogner PA-C Work Phone: [facility] 03-20-2023 11:05-0400 Heart rate 110 /min Nadia Bogner PA-C Work Phone: [facility] 06-15-2022 11:05-0400 Respiratory rate 20 /min Nadia Bogner PA-C Work Phone: [facility] 06-15-2022 11:05-0400 SaO2% (BldA) [Mass fraction] 96 % Nadia Bogner PA-C Work Phone: [facility] 06-15-2022 11:05-0400 Systolic blood pressure 136 mm[Hg] Nadia Bogner PA-C Work Phone: [facility] 01-05-2022 19:00-0400 Body temperature 98.2 [degF] Ashley Owens APRN.MUSIC COORDINATOR Work Phone: [facility] 01-05-2022 19:00-0400 Body weight 108.32 kg Ashley Owens APRN.MUSIC COORDINATOR Work Phone: [facility] 01-05-2022 19:00-0400 Diastolic blood pressure 86 mm[Hg] Ashley Owens APRN.MUSIC COORDINATOR Work Phone: [facility] 01-05-2022 19:00-0400 Heart rate 89 /min Ashley Owens APRN.MUSIC COORDINATOR Work Phone: [facility] 01-05-2022 19:00-0400 Respiratory rate 20 /min Ashley Owens APRN.MUSIC COORDINATOR Work Phone: [facility] 01-05-2022 19:00-0400 SaO2% (BldA) [Mass fraction] 98 % Ashley Owens APRN.MUSIC COORDINATOR Work Phone: [facility] 01-05-2022 19:00-0400 Systolic blood pressure 128 mm[Hg] Ashley Owens APRN.MUSIC COORDINATOR Work Phone: [facility] Encounters Encounter Date Encounter Type Care Provider Facility Start: 05-03-2023 Orders Only Ashley Olivera APRN - MUSIC COORDINATOR Work Phone: [facility] Procedures Date Procedure Procedure Detail Performing Clinician Start: 11-20-2022 Gastric emptying bipin ging study Tanna Nava Work Phone: Start: 11-11-2022 HOUSE ACCOUNT ABHILASH JIMENEZ ([facility]) Tannasalvador Nava Work Phone: Start: 10-30-2022 Lipid 1996 panel - S mansi or Plasma Tannasalvador Nava Work Phone: Start: 07-16-2022 HM PAP SMEAR Historical Provider Work Phone: Start: 07-16-2022 Microscopic observat ion [Identifier] in Cervix by Cyto stain Ashley Olivera PHOTOGRAPHIC ENLARGER OPERATOR - MUSIC COORDINATOR Work Phone: Start: 06-15-2022 Dup-scan xtr veins unilateral/limited study Nadia Bolanos PA-C Work Phone: Start: 04-29-2022 Mammography Ashley martinez PHOTOGRAPHIC ENLARGER OPERATOR - MUSIC COORDINATOR Work Phone: Start: 03-12-2022 Breath hydrogen/meth ane test Sada Salazar MD Work Phone: Start: 03-04-2022 Breath hydrogen/meth ane test Sada Salazar MD Work Phone: Start: 01-05-2022 Urnls dip stick/tabl et rgnt auto w/o microscopy Lee Rios PHOTOGRAPHIC ENLARGER OPERATOR.MUSIC COORDINATOR Work Phone: Start: 11-07-2020 HM COLONOSCOPY Historic al Provider Work Phone: Start: 11-07-2020 Colonoscopy Ashley Owens PHOTOGRAPHIC ENLARGER OPERATOR.MUSIC COORDINATOR Work Phone: Start: 02-23-2014 Lipid 1996 panel - S mansi or Plasma Us 2 Work Phone: Plan of Treatment Date Care Activity Detail Author Start: 2036 RSV Immunization age d 60 or older (1 - 1-dose 60+ series) RSV Immunization aged 60 or older (1 - 1-dose 60+ series) [facility] Start: 10-30-2032 DTaP/Tdap/Td Vaccine s (2 - Td or Tdap) DTaP/Tdap/Td Vaccines (2 - Td or Tdap) [facility] Start: 11-07-2030 Screening for malign ant neoplasm of colon [facility] Start: 10-31-2027 Lipid panel Lipid Panel [facility] Start: 2026 Zoster Vaccines (1 of 2) Zoster Vacc jakob (1 of 2) [facility] Start: 04-28-2026 Diabetes mellitus screening Diabetes Screening [facility] Start: 11-11-2025 Diabetes mellitus screening Diabetes Screening [facility] Start: 07-16-2025 Screening for malign ant neoplasm of cervix [facility] Start: 04-28-2024 COVID-19 Vaccine () COVID-19 Vaccine () [facility] Immunizations Immunization Date Immunization Notes Care Provider Eben castanon 12-16-2022 Seasonal, quadrivale nt, recombinant, injectable influenza vaccine, preservative free Ashley Jason PHOTOGRAPHIC ENLARGER OPERATOR - MUSIC COORDINATOR Work Phone: [facility] 10-30-2022 tetanus toxoid, redu katy diphtheria toxoid, and acellular pertussis vaccine, adsorbed Ashley Jason PHOTOGRAPHIC ENLARGER OPERATOR - MUSIC COORDINATOR Work Phone: [facility] 07-29-2021 hepatitis B vaccine, adult dosage Ashley Jason PHOTOGRAPHIC ENLARGER OPERATOR - MUSIC COORDINATOR Work Phone: [facility] 02-28-2021 hepatitis B vaccine, adult dosage Ashley Jason PHOTOGRAPHIC ENLARGER OPERATOR - MUSIC COORDINATOR Work Phone: [facility] 02-11-2021 Moderna SARS-CoV-2 Vaccination Ashley Jason PHOTOGRAPHIC ENLARGER OPERATOR - MUSIC COORDINATOR Work Phone: [facility] 01-28-2021 hepatitis B vaccine, adult dosage Ashley Jason PHOTOGRAPHIC ENLARGER OPERATOR - MUSIC COORDINATOR Work Phone: [facility] 01-28-2021 Influenza, injectabl e, quadrivalent, preservative free Ashley Jason PHOTOGRAPHIC ENLARGER OPERATOR - MUSIC COORDINATOR Work Phone: [facility] 01-28-2021 influenza, seasonal, injectable, preservative free Ashley Jason PHOTOGRAPHIC ENLARGER OPERATOR - MUSIC COORDINATOR Work Phone: [facility] 01-28-2021 influenza virus vaccine, unspecified formulation Ashley Jason PHOTOGRAPHIC ENLARGER OPERATOR - MUSIC COORDINATOR Work Phone: [facility] 07-12-2020 COVID-19 vaccine, fu ll dose (MODERNA) Sada Salazar MD Work Phone: [facility] Work Phone: 06-13-2020 COVID-19 vaccine, fu ll dose (MODERNA) Sada Salazar MD Work Phone: [facility] Work Phone: 01-12-2020 influenza, injectabl e, quadrivalent, preservative free Ashleyfrancisco Olivera PHOTOGRAPHIC ENLARGER OPERATOR - MUSIC COORDINATOR Work Phone: [facility] 12-22-2018 Influenza, injectabl e, quadrivalent, preservative free Ashleyfrancisco Olivera PHOTOGRAPHIC ENLARGER OPERATOR - MUSIC COORDINATOR Work Phone: [facility] 12-22-2018 influenza, seasonal, injectable Sada Salazar MD Work Phone: [facility] 12-24-2016 Influenza, injectabl e, quadrivalent, preservative free Ashley Olivera PHOTOGRAPHIC ENLARGER OPERATOR - MUSIC COORDINATOR Work Phone: [facility] 12-24-2016 influenza, seasonal, injectable Sada Salazar MD Work Phone: [facility] 03-01-2014 Influenza, injectabl e, quadrivalent, preservative free Ashley Olivera PHOTOGRAPHIC ENLARGER OPERATOR - MUSIC COORDINATOR Work Phone: [facility] 03-01-2014 influenza, seasonal, injectable Sada Salazar MD Work Phone: [facility] 02-20-2013 influenza virus vaccine, unspecified formulation Sada Salazar MD Work Phone: [facility] Work Phone: 04-29-2011 tetanus toxoid, redu katy diphtheria toxoid, and acellular pertussis vaccine, adsorbed Sada Salazar MD Work Phone: [facility] Work Phone: 01-22-2011 influenza virus vaccine, unspecified formulation Sada Salazar MD Work Phone: [facility] Work Phone: 01-23-2010 influenza virus vaccine, unspecified formulation Sada Salazar MD Work Phone: [facility] 03-12-2009 novel [id number], all formulations Sada Salazar MD Work Phone: [facility] Work Phone: 12-22-2008 influenza virus vaccine, unspecified formulation Sada Salazar MD Work Phone: [facility] Work Phone: 02-03-2008 influenza virus vaccine, unspecified formulation Sada Salazar MD Work Phone: [facility] Work Phone: 01-24-2007 influenza virus vaccine, unspecified formulation Sada Salazar MD Work Phone: [facility] Work Phone: 02-01-2006 influenza virus vaccine, unspecified formulation Sada Salazar MD Work Phone: [facility] Work Phone: Payers Date Payer Category Payer Unknown [employer] [id number] 2022-Present [address] [place] [address] Commercial [id number] 2022 Unknown [id number] 2022 Medicaid [id number] 2020 Medicaid [employer] [id number] 2020-Present [phone] [address] [place] [address] Medicaid [id number] 2020 Medicaid [id number] 2020 Medicaid [id number] Social History Date Type Detail Facility Start: 01-05-2022 End: 10-29-2022 Tobacco smoking status NHIS Never smoked tobacco [facility] Start: 12-31-2020 End: 04-28-2023 Alcohol intake Current drinker of alcohol (finding) [facility] Start: 10-10-2020 History SDOH Alcohol Frequency 3 [facility] Start: 10-10-2020 History SDOH Alcohol Std Drinks 1 [facility] Start: 12-31-2020 History SDOH Alcohol Comment socially [facility] Start: 10-10-2020 History SDOH Social Connections Phone 5 [facility] Start: 10-10-2020 History SDOH Social Connections Evangelical 2 [facility] Start: 10-10-2020 History SDOH Stress 4 [facility] Start: 10-10-2020 Education 12 [facility] Start: 1975 Sex Assigned At Female C [facility] Start: 01-05-2022 End: 10-29-2022 Tobacco use and exposure Smokeless tobacco non-user [facility] Start: 01-25-2022 End: 12-16-2022 Exposure to SARS-CoV-2 (event) Not sure [facility] Start: 06-15-2022 End: 10-29-2022 History of Social function [facility] Start: 06-15-2022 End: 10-29-2022 Tobacco use panel [facility] National Score (1-10 0), lower number is lower risk 81 [facility] Start: 02-27-2021 Gender identity Identifies as female gender (finding) [facility] Start: 02-27-2021 Sexual orientation Heterosexual (fin nathan) [facility] How often to you hav e [...] 10-29-2022 Alcohol Comment on occasion [facility] Start: 1975 Sex Assigned At Not on file S [facility] Do you belong to any clubs or organizations such as taoist groups, unions, fraternal or athletic groups, or school groups? Yes [facility] Are you now , , , , never or living with a partner? [facility] How often to you hav e a drink containing alcohol? 2-4 times a month [facility] Do you feel stress - tense, restless, nervous, or anxious, or unable to sleep at night because your mind is troubled all the time - these days [OSQ] Rather much [facility] Clinical Notes 10-01-2021 to 04-30-2023 Telephone Encounter - TERE Chung CNP - 04/30/2023 12:37 PM ESTTelephone Encounter - TERE Chung CNP - 04/30/2023 12:37 PM TERE Maki CNP - 04/28/2023 10:00 AM EST Note Date & Type Note Facility 04-30-2023 Telephone encounter Note Rx sent. Follow up as scheduled. [facility] 04-30-2023 Miscellaneous Notes Rx sent. Follow up as scheduled. Prescription Request: Last medication check: 04/28/23 Last physical exam: 11/02/22 Next scheduled appointment: 11/03/23 Last date of refill on this medication I don't see that we prescribe this for her documented in this encounter [facility] 04-30-2023 Telephone encounter Note Prescription Request: Last medication check: 04/28/23 Last physical exam: 11/02/22 Next scheduled appointment: 11/03/23 Last date of refill on this medication I don't see that we prescribe this for her [facility] 04-28-2023 History of Presen t illness Narrative Images from the original note were not included. 04/28/2023 Sammie Araiza (: 1975) is a 47 y.o. female , Established patient, here for evaluation of the following chief complaint(s): ER Follow-up ([address] ER abd pain, possible UTI-urologist advised her to take the cephalexin TID) and Hyperglycemia ASSESSMENT/PLAN: 1. Right lower quadrant abdominal pain - US pelvis transvaginal - Will obtain an ultrasound to assess her ovaries due to location of pain and normal CT of abdomen. 2. Nausea - TSH - US pelvis transvaginal 3. Weight gain - TSH - Will notify of blood work results. 4. Elevated glucose level - Hemoglobin A1c - TSH - Will notify of blood work results. 5. Primary hypertension - Stable with Lisinopril. Will continue current treatment plan. 6. Irritable bowel syndrome, unspecified type - Not well controlled. Following up with GI next week. 7. Gastroesophageal reflux disease, unspecified whether esophagitis present - Stable. Follow up with specialist as directed. 8. Depressive disorder - Stable with Wellbutrin. Will continue current treatment plan. 9. Anxiety - Stable with Wellbutrin. Will continue current treatment plan. 10. Encounter for screening for HIV - HIV-1 and HIV-2 Antigen-Antibody Screen - Will notify of blood work results. 11. Need for hepatitis C screening test - Hepatitis C antibody - Will notify of blood work results. Follow up in about 6 months (around 10/27/2023) for annual physical and fasting blood work. SUBJECTIVE/OBJECTIVE: JUSTO Cochran presents today for follow from an ER visit at [facility] on 04/21/23 due to RLQ abdominal pain that she woke up with that morning. Had subsequent nausea. Had a CT of her abd/pelvis with normal findings. Blood work had a normal WBC count. UA was negative for signs of infection. Contacted her urologist and they recommended she take her Keflex in case it was due to urinary infection causes. Her blood sugar was 152 in the ER and would like a hemoglobin A1c was 5% in October of 2022. Does have chronic bowel issues and is scheduled to follow up with GI within the next week. States she has also been gaining weight and would like her thyroid level checked. Will also treat today as her medication maintenance visit. Was scheduled next week for this. States she is doing well on her prescriptions and feels chronic conditions are well controlled overall. Health Maintenance: Would like screening for HIV and Hep C. Vaccinated for COVID-19 x3 with the most recent dose on 02/11/21- denies additional doses. Pap: 07/16/22. Tdap current: 10/30/22. Flu vaccine current: 12/16/22. Review of Systems Constitutional: Positive for unexpected weight change. Negative for chills and fever. Respiratory: Negative for chest tightness and shortness of breath. Cardiovascular: Negative for chest pain. Gastrointestinal: Positive for abdominal pain (RLQ), constipation, diarrhea and nausea. Negative for abdominal distention, blood in stool and vomiting. Endocrine: Negative for cold intolerance and heat intolerance. Genitourinary: Negative for dysuria and hematuria. Skin: Negative for color change and rash. Psychiatric/Behavioral: Negative for dysphoric mood. The patient is not nervous/anxious. Vitals: 04/28/23 1004 BP: 139/71 Pulse: 92 SpO2: 97% Weight: 240 lb (109 kg) Height: 5' 8 (1.727 m) Body mass index is 36.49 kg/m . Physical Exam Constitutional: General: She is not in acute distress. Appearance: She is not ill-appearing or diaphoretic. Cardiovascular: Rate and Rhythm: Normal rate and regular rhythm. Pulses: Normal pulses. Heart sounds: Normal heart sounds. No murmur heard. No friction rub. Pulmonary: Effort: Pulmonary effort is normal. Breath sounds: Normal breath sounds. No wheezing, rhonchi or rales. Abdominal: General: Bowel sounds are normal. Palpations: Abdomen is soft. There is no mass. Tenderness: There is abdominal tenderness in the right lower quadrant. There is no guarding or rebound. Negative signs include Williamson's sign and McBurney's sign. Musculoskeletal: Right lower leg: No edema. Left lower leg: No edema. Skin: General: Skin is warm and dry. Coloration: Skin is not pale. Findings: No erythema or rash. Neurological: Mental Status: She is alert and oriented to person, place, and time. Psychiatric: Mood and Affect: Mood normal. Behavior: Behavior normal. Thought Content: Thought content normal. Judgment: Judgment normal. Results: [facility] Imaging Services [address] [place] [address] Abdomen/Pelvis W IV Cont ONLY MR#: [id number] Acct: [id number] Name: SAMMIE ARAIZA Rep #: [id number] : 1975 F 47 From: Lamont ross MD PCP: TEJINDER Le Status: REG ER Study: Abdomen/Pelvis W IV Cont ONLY Date of Exam: Exam# [id number] Ordering Dr: Wagner Reynolds MD [id number] STUDY: CT ABDOMEN AND PELVIS WITH CONTRAST REASON FOR EXAM: Female, 47 years old. RLQ abd pain RADIATION DOSAGE (If Supplied By Facility): CTDIvol = ( 16.59 ) mGy, DLP = ( 1377.25 ) mGycm TECHNIQUE: Transaxial images were obtained from the dome of the diaphragm to the symphysis pubis without oral contrast. IV 100mL Isovue-370 was administered. Sagittal and coronal images were reconstructed. Individualized dose optimization techniques were used for this CT. COMPARISON: 01/07/2022. ___ FINDINGS: The visualized lung bases are unremarkable. The visualized portions of the heart are within normal limits. Normal liver. There is non-visualization of the gallbladder, which may be secondary to either contraction or a prior cholecystectomy. Normal spleen. Normal pancreas. Normal bilateral adrenal glands. Normal right kidney. Normal left kidney. Normal visualized stomach. Normal small intestine. Normal colon. The appendix is visualized and appears normal. Normal abdominal aorta. Normal inferior vena cava. Normal retroperitoneum. Normal urinary bladder. Normal visualized uterus. Normal abdominal wall. Normal osseous structures. ___ CT/Abdomen/Pelvis W IV Cont ONLY IMPRESSION: No definite acute or significant abnormality seen. Electronically Signed: Lamont Ram MD at 16:57 EST , An electronic signature was used to authenticate this note. TERE Chung CNP 04/28/2023 10:31 AM documented in this encounter [facility] 12-30-2022 Telephone encounter Note Rx sent. Follow up as scheduled. [facility] 12-30-2022 Miscellaneous Notes Rx sent. Follow up as scheduled. Prescription Request: Last medication check: none Last physical exam: 10/30/22 Next scheduled appointment: 05/05/23 Last date of refill on this medication we have not prescribed this pt was new on 10/30/22 documented in this encounter [facility] 12-30-2022 Telephone encounter Note Prescription Request: Last medication check: none Last physical exam: 10/30/22 Next scheduled appointment: 05/05/23 Last date of refill on this medication we have not prescribed this pt was new on 10/30/22 [facility] 12-16-2022 History of Presen t illness Narrative [...] was used to authenticate this note. TERE Chugn CNP 12/16/2022 11:05 AM After obtaining consent, and per orders of Ashley GRIMALDO, injection of 0.5ml flu vaccine given in right deltoid by Dione Lemus. Patient instructed to report any adverse reaction immediately. documented in this encounter [facility] 11-23-2022 Telephone encounter Note Rx sent. Follow up as scheduled. [facility] 11-23-2022 Miscellaneous Notes Rx sent. Follow up as scheduled. Prescription Request: Last medication check: none Last physical exam: 10/30/22 Next scheduled appointment: 05/05/23 Last date of refill on this medication we have not filled this for her yet. documented in this encounter [facility] 11-23-2022 Telephone encounter Note Prescription Request: Last medication check: none Last physical exam: 10/30/22 Next scheduled appointment: 05/05/23 Last date of refill on this medication we have not filled this for her yet. [facility] 10-30-2022 Telephone encounter Note Updating HM for colonoscopy 11/07/20 and pap 07/16/22 [facility] 10-30-2022 Miscellaneous Notes Updating HM for colonoscopy 11/07/20 and pap 07/16/22 documented in this encounter [facility] 10-30-2022 History of Presen t illness Narrative Images from the original note were not included. Patient Sammie Araiza 46 y.o. female, presents today with Chief Complaint Patient presents with Establish Care thigh pain Health Maintenance Hep [...] physical. Previous PCP was Dr. Murphy through [facility] in [address]. Does follow up with other specialists- Dr. Nava (GI in [address]), Dance Entertainer- Dr. Juárez ([address]), Dr. Ashley Fair (Urology in [address]), Dr. Marshall (Pulmonology), Dr. Lim (Dermatology). Past [...] tablet Take by mouth every other day. zjatctrttope-enqm-liqdwdri-folic acid (Centrum) chewable tablet Chew 1 tablet [...] immediately. documented in this encounter [facility] 06-15-2022 Note HNO ID: [id number] Author: Analilia Gutpa RDMS Service: ? Author Type: Electronic Prepress Technician Type: Progress Notes Filed: 06/15/2022 1:30 PM [...] RDMS RVT June 15, 2022 1:30 PM [facility] 06-15-2022 Miscellaneous Notes Patient given results and [...] Bolanos PA-C 06/15/2022 documented in this encounter [facility] 06-15-2022 Note HNO ID: [id number] Author: RT Fernando(R) Service: Nuclear Medicine Author Type: Technologist Type: [...] IV DATA: Not applicable SIGNED BY: RT Fernando(R) June 15, 2022 11:29 AM [facility] 06-15-2022 Note HNO ID: [id number] Author: Nadia Bolanos PA-C Service: ? Author Type: Physician [place] Machine Operator Type: Progress Notes Filed: 06/15/2022 3:56 [...] (FLONASE) 50 mcg/actuation nasal spray Use 1 [place] in each nostril once daily. albuterol HFA [...] TABLET - BENZONATATE 100 MG CAPSULE - S-KFRVM-rakamlch 2. SOB (shortness of breath) - ICD9: [...] and when to seek care sooner. - B-EVIHT-wmklnywb - US DVT LOWER RT-normal The patient indicates understanding of these issues and agrees with the plan. Nadia Bolanos PA-C [facility] 06-15-2022 History of Presen t illness Narrative [...] 2022 1:30 PM documented in this encounter [facility] 06-15-2022 History of Presen t illness [...] (FLONASE) 50 mcg/actuation nasal spray Use 1 [place] in each nostril once daily. albuterol HFA [...] TABLET - BENZONATATE 100 MG CAPSULE - V-PSRHL-qstrdjmo 2. SOB (shortness of breath) - ICD9: [...] and when to seek care sooner. - K-IRSKH-urfvvnic - US DVT LOWER RT-normal The patient indicates understanding of these issues and agrees with the plan. Nadia Bolanos PA-C documented in this encounter [facility] 05-25-2022 Miscellaneous Notes Pharmacy escripts requesting the following refill: Requested Prescriptions Pending Prescriptions Disp Refills dicyclomine (BENTYL) 10 mg capsule 30 capsule 3 Sig: Take 1 capsule by mouth three times daily as needed (abdominal pain). Please review and advise. Marck Alexander RN documented in this encounter [facility] 04-03-2022 Miscellaneous Notes Attempted to call [...] obtain breath testing. documented in this encounter [facility] 04-01-2022 Note HNO ID: [id number] Author: Cheryl Tucker LPN Service: ? Author Type: LICENSED NURSE Type: Progress Notes Filed: 04/01/2022 12:37 PM Note Text: Name: Sammie Araiza [facility]#: [id number] Date: 04/01/2022 24 HOUR pH PROBE REMOVAL The pH probe was removed by patient and the data was downloaded from the mainframe applications developer for physician review. Cheryl Tucker LPN [facility] 04-01-2022 History of Presen t illness Narrative Name: Sammie Araiza [facility]#: [id number] Date: 04/01/2022 24 HOUR pH PROBE REMOVAL The pH probe was removed by patient and the data was downloaded from the mainframe applications developer for physician review. Cheryl Tucker LPN documented in this encounter [facility] 03-19-2022 Note HNO ID: [id number] Author: Cheryl Tucker LPN Service: ? Author Type: LICENSED NURSE Type: Progress Notes Filed: 03/19/2022 12:08 PM Note Text: Name: Sammie Araiza [facility]#: [id number] Date: 03/19/2022 24 HOUR pH PROBE INSERTION [...] tomorrow for probe removal. Cheryl Tucker LPN [facility] 03-19-2022 History of Presen t illness Narrative Name: Sammie Araiza [facility]#: [id number] Date: 03/19/2022 24 HOUR pH PROBE INSERTION [...] Cheryl Tucker LPN documented in this encounter [facility] 03-17-2022 Miscellaneous Notes Called patient to reschedule appointment from 03/18 to Apr 24, 2022 at 1000 am.TONNY Perez documented in this encounter [facility] 03-12-2022 Note HNO ID: [id number] Author: TONNY Perez Service: ? Author Type: Clinical Intern Brand Type: Progress Notes Filed: 03/12/2022 8:48 AM [...] hour, 15 minutes Hydrogen: 1 Methane: 8 Nikkiya Claudai, CT 1 hour, 30 minutes Hydrogen: 2 Methane: 8 Nikkibaltazar Claudia, CT Symptoms developed during the study: Flatulence/Gas,achy stomach Patient Results Preliminary Test Results (not given to patient): Pending Shabbir Taylor CT Patient must be = Hydrogen >20 or Methane >10 in order to be positive for Bacterial Overgrowth [facility] 03-12-2022 History of Presen t illness Narrative [...] hour, 15 minutes Hydrogen: 1 Methane: 8 Nikkiya Claudia, CT 1 hour, 30 minutes Hydrogen: 2 Methane: 8 Nikkibaltazar Claudia, CT Symptoms developed during the study: Flatulence/Gas,achy stomach Patient Results Preliminary Test Results (not given to patient): Pending Shabbir Taylor CT Patient must be = Hydrogen >20 or Methane >10 in order to be positive for Bacterial Overgrowth documented in this encounter [facility] 03-05-2022 Note HNO ID: [id number] Author: Jenny Andres MD Service: ? Author Type: Physician Type: Progress Notes Filed: 03/05/2022 9:28 AM Note Text: Rev'd [facility] 03-05-2022 History of Presen t illness Narrative Rev'd documented in this encounter [facility] 03-04-2022 Note HNO ID: [id number] Author: TONNY Perez Service: ? Author Type: Clinical Intern Brand Type: Progress Notes Filed: 03/04/2022 2:50 PM Note Text: LACTOSE HYDROGEN BREATH TEST For Lactose Intolerance Date: March 04, 2022 Referring Physician: Sada Salazar MD Chief Complaint Diarrhea Symptoms prior to start of study: None Lactose 25 grams given at: 955am Start Time: 1000am Baseline Hydrogen PPM: 3 Methane PPM: 9 Nikkiya Claudia, CT Time: 1020am / 20 minutes Hydrogen PPM: 2 Methane PPM: 8 Shabbir Claudia, CT Time: 1040am / 40 minutes Hydrogen PPM: 3 Methane PPM: 8 Shabbir Claudia, CT Time: 1100am / 60 minutes Hydrogen PPM: 2 Methane PPM: 9 Stephanieya Claudia, CT Time: 1120am / 120 minutes Hydrogen PPM: 2 Methane PPM: 8 Shabbir Claudia, CT Time: 1140am / 180 minutes Hydrogen PPM: 3 Methane PPM: 8 Shabbir Taylor, CT Symptoms developed during the study period: None Patient Results Preliminary Test Results (not given to patient): Pending Shabbir Taylor CT [facility] 03-04-2022 History of Presen t illness Narrative LACTOSE HYDROGEN BREATH TEST For Lactose Intolerance Date: March 04, 2022 Referring Physician: Sada Salazar MD Chief Complaint Diarrhea Symptoms prior to start of study: None Lactose 25 grams given at: 955am Start Time: 1000am Baseline Hydrogen PPM: 3 Methane PPM: 9 Nikkiya Claudia, CT Time: 1020am / 20 minutes Hydrogen PPM: 2 Methane PPM: 8 Nikkibaltazar Claudia, CT Time: 1040am / 40 minutes Hydrogen PPM: 3 Methane PPM: 8 Shabbir Taylor, CT Time: 1100am / 60 minutes Hydrogen PPM: 2 Methane PPM: [address] Time: 1120am / 120 minutes Hydrogen PPM: 2 Methane PPM: [address] Time: 1140am / 180 minutes Hydrogen PPM: 3 Methane PPM: 8 Shabbir Taylor TONNY Symptoms developed during the study period: None Patient Results Preliminary Test Results (not given to patient): Pending TONNY Perez documented in this encounter [facility] 02-11-2022 Miscellaneous Notes Patient phones requesting refills as follows: Last office visit: Visit date not found Next office visit: Visit date not found Requested Prescriptions Pending Prescriptions Disp Refills omeprazole (PRILOSEC) 40 mg capsule 60 capsule 3 Sig: Take 1 capsule by mouth twice daily. Please review and advise. Paulina Nunez LPN Please file if appropriate documented in this encounter [facility] 01-22-2022 Miscellaneous Notes GI workup by Dr. Salazar has been faxed per pt request. Marck Alexander RN documented in this encounter [facility] 01-05-2022 Note HNO ID: [id number] Author: Ashley Owens APRN.MUSIC COORDINATOR Service: ? Author Type: Nurse Practitioner Type: [...] (FLONASE) 50 mcg/actuation nasal spray Use 1 [place] in each nostril once daily. omeprazole (PRILOSEC) [...] Patient agreeable to treatment plan. Ashley Owens APRN.[facility] 01-05-2022 History of Presen t illness Narrative [...] (FLONASE) 50 mcg/actuation nasal spray Use 1 [place] in each nostril once daily. omeprazole (PRILOSEC) [...] Ashley Owens APRN.ROSALIA documented in this encounter [facility] 10-01-2021 Miscellaneous Notes Pt requesting refills on the following medication. Please file if appropriate. documented in this encounter [facility] documented in this encounter [facility] note* Diagnosis Burning with urination- Primary Dysuria documented in this encounter [facility] note* Diagnosis Left upper quadrant abdominal pain documented in this encounter [facility] note* Diagnosis Bloating Flatulence, eructation, and gas pain documented in this encounter [facility] note* Diagnosis Bloating- Primary Flatulence, eructation, and gas pain documented in this encounter [facility] note* Diagnosis Bloating Flatulence, eructation, and gas pain documented in this encounter [facility] note* Diagnosis Abdominal pain, unspecified abdominal location documented in this encounter [facility] note* Diagnosis Abdominal pain, unspecified abdominal location- Primary documented in this encounter [facility] note* Diagnosis Left sided abdominal pain Abdominal pain, unspecified site documented in this encounter [facility] note* Diagnosis Acute cough- Primary SOB (shortness of breath) Shortness of breath Right leg pain Pain in limb documented in this encounter [facility] note* Diagnosis Well adult exam- Primary Routine [...] vaccination Need for prophylactic vaccination with combined ulsklcifzo-jofmher-prwbcpqxn (DTP) vaccine Screening for lipoid disorders Screening for diabetes mellitus documented in this encounter [facility] note* Diagnosis Irritable bowel syndrome without diarrhea documented in this encounter [facility] note* Diagnosis Primary hypertension Unspecified essential hypertension [facility] Diagnosis Injury due to fall, initial encounter- Primary Left knee injury, initial encounter Flu vaccine need documented in this encounter [facility] note* Diagnosis Injury due to fall, initial encounter Left knee injury, initial encounter [facility]* Diagnosis Depressive disorder Depressive disorder, not elsewhere classified Anxiety Anxiety state, unspecified documented in this encounter [facility] note* Diagnosis Right leg pain Pain in limb documented in this encounter [facility] note* Diagnosis Irritable bowel syndrome without diarrhea- Primary Irritable bowel syndrome without diarrhea documented in this encounter [facility] note* Diagnosis Right lower quadrant abdominal pain- Primary Nausea Nausea alone Weight gain Other symptoms concerning nutrition, metabolism, and development Elevated glucose level Primary hypertension Unspecified essential hypertension Irritable bowel syndrome, unspecified type Gastroesophageal reflux disease, unspecified whether esophagitis present Depressive disorder Depressive disorder, not elsewhere classified Anxiety Anxiety state, unspecified Encounter for screening for HIV Need for hepatitis C screening test Special screening examination for other specified viral diseases documented in this encounter [facility] note* Diagnosis Irritable bowel syndrome with diarrhea Irritable bowel syndrome documented in this encounter [facility] note* Diagnosis Class 2 obesity due to excess calories without serious comorbidity with body mass index (BMI) of 36.0 to 36.9 in adult- Primary [facility] Attachments The following attachments cannot be sent through Care Everywhere. * Nocturnal (Nighttime) Leg Cramps (German) * Tdap Vaccine (German) [facility] Attachments The following attachments cannot be sent through Care Everywhere. * Phentermine, ADULT (German) [facility] Diagnostic Procedure Only (Urgent) - Closed Specialty Diagnoses / Procedures Referred By Raul beltran Referred To Contact US IMAGING Diagnoses Right leg pain Procedures US DVT LOWER RT DUP-SCAN XTR VEINS UNILATERAL/LIMITED STUDY Nadia Bolanos PA-C [address] [place] [address] [facility] Imaging Referral ID Status Reason Start Date Expiration Date V isits Requested Visits Authorized [id number] Closed Auto-Generate d Referral 06/15/2022 07/15/2023 1 1 [facility] for referral (narrative)* Diagnostic Procedure Only (Urgent) - Closed Specialty Diagnoses / Procedures Referred By Contac t Referred To Contact US IMAGING Diagnoses Right leg pain Procedures US DVT LOWER RT DUP-SCAN XTR VEINS UNILATERAL/LIMITED STUDY Nadia Bolanos PA-C [address] [place] [address] [place] [address] Referral ID Status Reason Start Date Expiration Date V isits Requested Visits Authorized [id number] Closed Auto-Generate d Referral 06/15/2022 07/15/2023 1 1 [facility] Advance Directives No Advanced Directives Records FoundDocuments on File Type Date Recorded 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 Expl 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 Advance Directive(s) 11/07/2020 6:26 AM Summary Purpose Family History No Family History Records FoundNo Family History Records Found Reason for Referral Specialty Diagnoses / Procedures Referred By Contac t Referred To Contact Radiology Diagnoses Irritable bowel syndrome without diarrhea Procedures NM gastric emptying solid FriendTanna [address], [address] [place] [address] Referral ID Status Reason Start Date Expiration Date Visits Re quested Visits Authorized [id number] Closed 11/11/2022 05/10/2023 1 1 Additional Source Comments Source Comments (unrecognize d section and content) In the event this informatio n is protected by the Federal Confidentiality of Alcohol and Drug Abuse Patient Records regulations: The Federal rules restrict any use of the information to criminally investigate or prosecute any alcohol or drug abuse patient.[facility] the event this information is protected by the Federal Confidentiality of Alcohol and Drug Abuse Patient Records regulations: The Federal rules restrict any use of the information to criminally investigate or prosecute any alcohol or drug abuse patient.[facility] the event this information is protected by the Federal Confidentiality of Alcohol and Drug Abuse Patient Records regulations: The Federal rules restrict any use of the information to criminally investigate or prosecute any alcohol or drug abuse patient.[facility] the event this information is protected by the Federal Confidentiality of Alcohol and Drug Abuse Patient Records regulations: The Federal rules restrict any use of the information to criminally investigate or prosecute any alcohol or drug abuse patient.[facility] the event this information is protected by the Federal Confidentiality of Alcohol and Drug Abuse Patient Records regulations: The Federal rules restrict any use of the information to criminally investigate or prosecute any alcohol or drug abuse patient.[facility] Hospital[facility] the event this information is protected by the Federal Confidentiality of Alcohol and Drug Abuse Patient Records regulations: The Federal rules restrict any use of the information to criminally investigate or prosecute any alcohol or drug abuse patient.[facility] Hospital[facility] the event this information is protected by the Federal Confidentiality of Alcohol and Drug Abuse Patient Records regulations: The Federal rules restrict any use of the information to criminally investigate or prosecute any alcohol or drug abuse patient.[facility] Hospital[facility] the event this information is protected by the Federal Confidentiality of Alcohol and Drug Abuse Patient Records regulations: The Federal rules restrict any use of the information to criminally investigate or prosecute any alcohol or drug abuse patient.[facility] Hospital[facility] the event this information is protected by the Federal Confidentiality of Alcohol and Drug Abuse Patient Records regulations: The Federal rules restrict any use of the information to criminally investigate or prosecute any alcohol or drug abuse patient.[facility] Hospital[facility] the event this information is protected by the Federal Confidentiality of Alcohol and Drug Abuse Patient Records regulations: The Federal rules restrict any use of the information to criminally investigate or prosecute any alcohol or drug abuse patient.[facility] HospitalIn the event this information is protected by the Federal Confidentiality of Alcohol and Drug Abuse Patient Records regulations: The Federal rules restrict any use of the information to criminally investigate or prosecute any alcohol or drug abuse patient.[facility] the event this information is protected by the Federal Confidentiality of Alcohol and Drug Abuse Patient Records regulations: The Federal rules restrict any use of the information to criminally investigate or prosecute any alcohol or drug abuse patient.[facility] Hospital[facility] the event this information is protected by the Federal Confidentiality of Alcohol and Drug Abuse Patient Records regulations: The Federal rules restrict any use of the information to criminally investigate or prosecute any alcohol or drug abuse patient.[facility] Hospital[facility] the event this information is protected by the Federal Confidentiality of Alcohol and Drug Abuse Patient Records regulations: The Federal rules restrict any use of the information to criminally investigate or prosecute any alcohol or drug abuse patient.[facility] HospitalIn the event this information is protected by the Federal Confidentiality of Alcohol and Drug Abuse Patient Records regulations: The Federal rules restrict any use of the information to criminally investigate or prosecute any alcohol or drug abuse patient.[facility] Reason for Visit (unrecogniz ed section and content) Specialty Diagnoses / Procedures Referred By Raul beltran Referred To Contact [facility] Diagnoses Bloating Procedures BREATH TEST GLUCOSE BREATH HYDROGEN/METHANE TEST Sada Salazar MD [address] [facility] [place] [address] [facility] [place] [address] [place] [id number] Referral ID Status Reason Start Date Expiration Date V isits Requested Visits Authorized [id number] Closed Auto-Generate d Referral 01/30/2022 01/29/2023 1 1 Reason Onset Date Comments Refill Request 10/01/2021 Reason Comments UTI Burning with urinati on, lower abd pain x2 days Reason Onset Date Comments Refill Request 02/11/2022 Specialty Diagnoses / Procedures Referred By Raul beltran Referred To Contact [facility] Diagnoses Bloating Procedures BREATH TEST LACTOSE BREATH HYDROGEN/METHANE TEST Saad Salazar MD [address] [facility] [place] [address] [place] [address] [facility] [address] [place] [address] Referral ID Status Reason Start Date Expiration Date V isits Requested Visits Authorized [id number] Closed Auto-Generate d Referral 02/18/2022 03/28/2022 1 1 Reason Comments Gas Reason Comments Patient Question Patient Update Reason Onset Date Comments Procedure 03/19/2022 Specialty Diagnoses / Procedures Referred By Raul t Referred To Contact [facility] Diagnoses Abdominal pain, unspecified abdominal location Procedures PH IMPEDANCE INSERT OFF MEDS ESOPHGL FUNCJ G-ESOP RFLX IMPD Sada Carballo MD [address] [facility] [place] [address] [facility] [place] [address] [place] [address] Referral ID Status Reason Start Date Expiration Date V isits Requested Visits Authorized [id number] Closed Auto-Generate d Referral 01/30/2022 01/29/2023 1 [...] 10/30/2022 Specialty Diagnoses / Procedures Referred By Raul t Referred To Contact Radiology Diagnoses Irritable bowel syndrome without diarrhea Procedures NM gastric emptying solid Friend, Tanna [address], [address] [place] [address] Referral ID Status Reason Start Date Expiration Date Visits Re quested Visits Authorized [id number] Closed 11/11/2022 05/10/2023 1 1 Reason Onset Date Comments Med Refill 11/22/2022 Reason Comments Fall Knee Pain Left knee pain Reason Onset Date Comments Med Refill 12/30/2022 Reason Comments Radiology US Specialty Diagnoses / Procedures Referred By Contac t Referred To Contact [facility] Diagnoses Right leg pain Procedures US DVT LOWER RT DUP-SCAN XTR VEINS UNILATERAL/LIMITED STUDY Nadia Bolanos PA-C [address] [place] [address] [place] [address] Referral ID Status Reason Start Date Expiration Date V isits Requested Visits Authorized [id number] Closed Auto-Generate d Referral 06/15/2022 07/15/2023 1 1 Reason Comments ER Follow-up [address] ER abd pain, possible UTI-urologist advised her to take the cephalexin TID Hyperglycemia Reason Onset Date Comments Med Refill 04/30/2023 Care Teams (unrecognized sec tion and content) Coal Loader Relationship Specialty Start Date End Date Ashok Araiza MD PCP - General Family Medicine 03/21/17 Coal Loader Relationship Specialty Start Date End Date Ashok Araiza MD PCP - General Family Medicine 03/21/17 Coal Loader Relationship Specialty Start Date End Date Ashok Araiza MD PCP - General Family Medicine 03/21/17 Coal Loader Relationship Specialty Start Date End Date Ashok Araiza MD PCP - General Family Medicine 03/21/17 Coal Loader Relationship Specialty Start Date End Date Ashok Araiza MD PCP - General Family Medicine 03/21/17 Coal Loader Relationship Specialty Start Date End Date Ashok Araiza MD PCP - General Family Medicine 03/21/17 Coal Loader Relationship Specialty Start Date End Date Ashok Araiza MD PCP - General Family Medicine 03/21/17 Coal Loader Relationship Specialty Start Date End Date Ashok Araiza MD PCP - General Family Medicine 03/21/17 Coal Loader Relationship Specialty Start Date End Date Ashok Araiza MD PCP - General Family Medicine 03/21/17 Coal Loader Relationship Specialty Start Date End Date Rory Hickman MD NO FORWARDING ADDRESS PCP - General Internal Medicine 06/15/22 Coal Loader Relationship Specialty Start Date End Date Rory Hickman MD NO FORWARDING ADDRESS PCP - General Internal Medicine 06/15/22 Coal Loader Relationship Specialty Start Date End Date Ashok Araiza MD PCP - General Family Medicine 03/21/17 06/14/22 Rory Hickman MD NO FORWARDING ADDRESS PCP - General Internal Medicine 06/15/22 Coal Loader Relationship Specialty Start Date End Date Kevin Jin MD [address] [place] [id number] PCP - General Family Medicine 10/29/22 Coal Loader Relationship Specialty Start Date End Date Kvein Jin MD [address] [place] [id number] PCP - General Family Medicine 10/29/22 Coal Loader Relationship Specialty Start Date End Date Ashley Olivera APRN - CNP [address] [place] [id number] PCP - General Nurse Practitioner Family 11/11/22 Coal Loader Relationship Specialty Start Date End Date Ashley Olivera APRN - CNP [address] [facility] [place] [address] PCP - General Nurse Practitioner Family 11/11/22 Coal Loader Relationship Specialty Start Date End Date Ashley Olivera PHOTOGRAPHIC ENLARGER OPERATOR - MUSIC COORDINATOR [address] [facility] [place] [address] PCP - General Nurse Practitioner Family 11/11/22 Coal Loader Relationship Specialty Start Date End Date Kevin Jin MD [address] [place] [address] PCP - General Family Medicine 12/15/22 Coal Loader Relationship Specialty Start Date End Date Kevin Jin MD [address] [place] [address] PCP - General Family Medicine 12/15/22 Coal Loader Relationship Specialty Start Date End Date Kevin Jin MD [address] [place] [address] PCP - General Family Medicine 12/15/22 Coal Loader Relationship Specialty Start Date End Date Rory Hickman MD NO FORWARDING ADDRESS PCP - General Internal Medicine 06/15/22 Coal Loader Relationship Specialty Start Date End Date Ashley Olivera, PHOTOGRAPHIC ENLARGER OPERATOR - MUSIC COORDINATOR [address] [place] [place] [address] PCP - General Nurse Practitioner Family 11/11/2211/27 Kevin Jin MD [address] [place] [address] PCP - General Family Medicine 12/15/22 Coal Loader Relationship Specialty Start Date End Date Kevin Jin MD [address] [facility] [place] [address] PCP - General Family Medicine 12/15/22 Coal Loader Relationship Specialty Start Date End Date Kevin Jin MD [address] [facility] [place] [address] PCP - General Family Medicine 12/15/22 Coal Loader Relationship Specialty Start Date End Date Kevin Jin MD [address] [facility] [place] [address] PCP - General Family Medicine 12/15/22 Coal Loader Relationship Specialty Start Date End Date Kevin Jin MD [address] [place] [address] [place] [address] PCP - General Family Medicine 12/15/22 INFORMATION SOURCE (unrecogn ized section and content) DATE CREATED AUTHOR AUTHOR'S ORGANIZ ATION 05/04/2023 [facility] FOR RECORDS PERTAINING TO PATIENTS WHO ARE [...] BE BASED ON THE PRIMARY CLINICAL RECORDS. [employer] [facility]. provides no warranty or guarantee of the accuracy or completeness of information in this document.
[2023-06-10] MEDS: Lactated Ringers 1,000 ML 15 ML IV (06:23)
[2023-06-10 06:24] LABS: Internal QC Validated? YES +Cl - CLEAR BKGD; Pregnancy, Urine Negative Negative
[2023-06-10 06:25] VITALS: BP 116/85; PULSE 85; RESP 16; TEMP 36.6; O2SAT 98; BMI 37.2
[2023-06-10] MEDS: Cefazolin 2 GM in 0.9% Normal Saline (100mL Bag) 100 ML IV (07:29)
[2023-06-10 07:50] VITALS: BP 108/69; BP 116/85; PULSE 81; RESP 16; TEMP 36.7; O2SAT 93
--- NOTE | 2023-06-10 07:52 | EX.PCM.DISCH ---
Discharge Instructions Diet Discharge Diet: No restrictions Activity Discharge Activity: Return to Normal Activity Dressing / Incision Call your doctor if you observe: Fever of 101 or Higher, Inability to urinate and Inability to have a bowel movement Follow Up Care Please Follow Up With: Cailin Fair MD When: The office will call her to make arrangements. Test Results: Test results from this visit will be discussed in further detail at your follow-up appointment, if applicable. Discharge Plan Admission Attending Provider: Cailin Fair Primary Care Provider: Cailin Gomez [employer] Consulting Providers: Santana Crespo Discharge Orders/Prescriptions Prescriptions: New oxycodone-acetaminophen [Percocet] 5-325 mg tablet 1 tab PO Q8H PRN (Reason: pain) 1 Days Qty: 3 0RF Continued albuterol sulfate 90 mcg/actuation HFA aerosol inhaler 2 puff inhalation Q6H PRN (Reason: shortness of breath or wheezing) Qty: 8.5 1RF dicyclomine 10 mg capsule 10 mg PO TID PRN (Reason: abdominal pain) bupropion HCl [Wellbutrin XL] 300 mg tablet extended release 24 hr 300 mg PO QAM Qty: 90 1RF Centrum Complete 18-400 mg-mcg tablet 1 tab PO DAILY cephalexin 250 mg capsule 250 mg PO PRN PRN (Reason: AFTER INTERCOURSE) Patient Comments: TAKE 1 CAPSULE BY MOUTH ONCE DAILY AFTER INTERCOURSE phentermine 37.5 mg tablet 37.5 mg PO DAILY Patient Comments: Take 1 tablet (37.5 mg) by mouth every morning (before breakfast). BMI 36.49 meloxicam 15 mg tablet 15 mg PO .QOD Rx Instructions: Do not take in conjunction with other NSAIDs. Tylenol is okay. fluticasone propionate [Flonase Allergy Relief] 50 mcg/actuation spray,suspension 1 spray intranasal DAILY PRN (Reason: allergy symptoms) Rx Instructions: administer into each nostril diclofenac sodium [Pennsaid] 20 mg/gram /actuation(2 %) solution in metered-dose pump 2 pump topical BID PRN (Reason: Pain) Rx Instructions: apply to left knee BID lisinopril 5 mg tablet 5 mg PO DAILY Qty: 30 2RF ondansetron 4 mg tablet,disintegrating 4 mg PO Q8H PRN (Reason: nausea and vomiting) Qty: 30 5RF fluoxetine 40 mg capsule 40 mg PO DAILY Qty: 90 1RF albuterol sulfate 2.5 mg/0.5 mL solution for nebulization 5 mg inhalation Q6H PRN (Reason: shortness of breath or wheezing) Qty: 30 0RF pantoprazole 40 mg tablet,delayed release (DR/EC) 40 mg PO DAILY Qty: 90 2RF Referrals / Follow Up: Cailin Gomez [employer], [employer] [Primary Care Provider] - Disposition Disposition (needs filled in before D/C Order can be placed): Home, Self Care
[2023-06-10 07:55] VITALS: BP 110/75; BP 116/85; PULSE 80; RESP 16; O2SAT 92
--- NOTE | 2023-06-10 07:55 | OP.PCM_ITS ---
Report of Operation Date of Procedure: 06/10/23 Pre-Operative Diagnosis: Bladder lesion small Post-Operative Diagnosis: Same Surgery/Procedure Performed:: Cystoscopy with bladder biopsy and fulguration Surgeon: Cailin Fair Type of Anesthesia: MAC Specimen's removed: Bladder biopsy Description of Procedure: The patient is a 47-year-old female with abdominal pain, urinary tract infections who underwent cystoscopy in the office for evaluation. She was found to have an area suspicious for squamous metaplasia. The decision was made to take her to the operating room for removal with biopsy and fulguration. Informed consent was obtained. The patient was taken the operating room and placed on the operating room table. Anesthesia monitored the head, neck, airway , IV access and vital signs throughout the case. Once anesthesia was appropriately administered, the patient was placed into dorsolithotomy position and was prepped and draped in usual sterile fashion. The cystoscope was inserted through the urethra under direct visualization into the urinary bladder. The bladder mucosa was visualized in its entirety and the only area of concern was a white patchy area on the trigone. It was very small approximately 1 cm in diameter. A biopsy was taken of this with flexible biopsy forceps. The area was fulgurated for tissue treatment and hemostatic control. The patient's bladder was then emptied and the cystoscope was removed. She was awakened and taken to the recovery room in good condition. There were no complications during this procedure. Complications None Admit VTE Documentation VTE Present on Admission: Yes VTE Mechan Device Prophylaxis: SCD's VTE Pharm Prophylaxis ordered?: No Reason prophylaxis not ordered:: Treatment Not Indicated
[2023-06-10 08:00] VITALS: BP 111/75; BP 116/85; PULSE 80; RESP 16; O2SAT 94
[2023-06-10 08:09] VITALS: BP 116/85; BP 118/80; BP 126/83; PULSE 76; RESP 16; TEMP 36.3; O2SAT 97; O2SAT 98
[2023-06-10 08:27] VITALS: BP 116/85
== END 2023-06-10 08:57 | disposition home or self-care (01) ==
LOC: SDC 05:50 → AC 05:54
PROVIDERS: Anesthesiology; PCP Registered Nurse; Referring Provider Urology; Visit Provider Urology
PROC: 0TBB8ZX Excision of Bladder, Via Natural or Artificial Opening Endoscopic, Diagnostic (ICD-10-PCS; CPT 52204; principal; 2023-06-10 07:20)
DX: N32.9 Bladder disorder, unspecified (principal); N39.0 Urinary tract infection, site not specified; R31.29 Other microscopic hematuria; R39.15 Urgency of urination; R35.0 Frequency of micturition; N39.3 Stress incontinence (female) (male); F32.A Depression, unspecified; F41.9 Anxiety disorder, unspecified; J45.909 Unspecified asthma, uncomplicated; K21.9 Gastro-esophageal reflux disease without esophagitis; I10 Essential (primary) hypertension; Z79.899 Other long term (current) drug therapy; Z79.51 Long term (current) use of inhaled steroids
CPT/HCPCS: 52204; 52214; 00910; 36415; 80076; 81025; 85610; 85730; 88305; J7120; J2405

== ENCOUNTER → 2023-06-30 | Outpatient (CLI) | payer MEDICAID, SELFPAY ==
[2023-07-02 17:07] LABS: Chromogranin A 283.6 ng/mL (0.0-101.8)
== END | disposition home or self-care (01) ==
LOC: PAVLAB 09:58
PROVIDERS: PCP Registered Nurse; Referring Provider Internal Medicine Gastroenterology; Visit Provider Internal Medicine Gastroenterology
DX: R77.8 Other specified abnormalities of plasma proteins (principal)
CPT/HCPCS: 36415; 86316

== ENCOUNTER 2023-07-04 07:28 | Observation (INO) | payer MEDICAID, SELFPAY ==
[2023-07-04] VITALS (8 sets, daily range): BP systolic 115–163; BP diastolic 57–97; PULSE 81–116; RESP 14–18; TEMP 36.1–37.2; O2SAT 97–99; BMI 36.5; BMI 35.2
--- NOTE | 2023-07-04 07:41 | ED.RN ---
bleeding and clots started . saw urology wednesday bleeding had cleared. started again last night with pain/discomfort suprapubic area.
--- NOTE | 2023-07-04 07:47 | CT_ITS ---
STUDY: CT ABDOMEN AND PELVIS WITHOUT CONTRAST REASON FOR EXAM: Female, 47 years old. hematuria and bladder pain. bladder bx 2 weeks ago RADIATION DOSAGE (If Supplied By Facility): CTDIvol = ( 17.62 ) mGy, DLP = ( 973.00 ) mGycm TECHNIQUE: Transaxial images were obtained from the dome of the diaphragm to the symphysis pubis without oral contrast, and without intravenous contrast. Sagittal and coronal images were reconstructed. Individualized dose optimization techniques were used for this CT. COMPARISON: 04/21/2023 FINDINGS: The visualized lung bases are unremarkable. The visualized portions of the heart are within normal limits. Normal liver. There is non-visualization of the gallbladder, which may be secondary to either contraction or a prior cholecystectomy. Normal spleen. Normal pancreas. Normal bilateral adrenal glands. Normal right kidney. Normal left kidney. Normal visualized stomach. Normal small intestine. Normal colon. The appendix is visualized and appears normal. Appendix seen on coronal recon images 68 through 74 Normal abdominal aorta. Normal inferior vena cava. Normal retroperitoneum. Normal urinary bladder. Normal-appearing uterus. No suspicious enlarged cystic mass or free fluid in the pelvis Normal abdominal wall. Normal osseous structures. CT/Abdomen/Pelvis without Cont IMPRESSION: No suspicious solid organ abnormality No free intraperitoneal fluid, air, or suspicious adenopathy. Normal appendix visualized No interval change Electronically Signed: Jayesh Landaverde MD at 8:50 EDT ,
--- NOTE | 2023-07-04 07:48 | EDS_ITS ---
HPI HPI - Female History of Present Illness Chief Complaint: Complaint Narrative Narrative: 47-year-old female presenting with hematuria and suprapubic pressure as well as blood clots in her urine. Patient has had history of this in the past and sees urology (Dr. Fair) and previously had cystoscopy which showed some irregular looking lesions however these were biopsied and were negative. Patient states these areas were cauterized. Patient has not had any significant problems But notes that about Wednesday or started having some hematuria again and it cleared up but then became worse overnight. She states he is having clots in the urine. Patient states she is not sick or having fevers or chills. She has some lower back pain and maybe some left-sided pain she did not think anything of until after the urinary symptoms started. She states she has a distant history of UTI but has not anything recently. Recently had urinalysis performed at urology office and culture was sent which was negative. Patient does not have any history of kidney stones that she knows of. PFSH PFSH Medical History Acid reflux Alcohol use Anemia Anxiety Arthritis Asthma Back pain Bladder disease Bloating Chronic diarrhea Cough Depression Difficulty swallowing Easy bruising Gastric reflux Herpes zoster History of anxiety History of gastrointestinal disorder History of IBS History of nasal obstruction History of skin cancer History of steroid therapy Hx of carpal tunnel syndrome Hx of seasonal allergies Hx: UTI (urinary tract infection) Hypertension IBS (irritable bowel syndrome) Lesion of bladder Menorrhagia with regular cycle Nausea Non-smoker Pelvic pain Vitamin D deficiency Wears glasses Home Medications albuterol sulfate 90 mcg/actuation aerosol inhaler 2 puff inhalation Q6H PRN shortness of breath or wheezing #8.5 grams 12/10/21 [Rx Last Taken Unknown] dicyclomine 10 mg capsule 10 mg PO TID PRN abdominal pain 06/03/22 [History Last Taken Unknown] bupropion HCl 300 mg 24 hr tablet, extended release (Wellbutrin XL) 300 mg PO QAM #90 tabs 06/24/22 [Rx Last Taken 07/03/23] lisinopril 5 mg tablet 5 mg PO DAILY #30 tabs 08/13/22 [Rx Last Taken 07/03/23] ondansetron 4 mg disintegrating tablet 4 mg PO Q8H PRN nausea and vomiting #30 tabs 09/01/22 [Rx Last Taken Unknown] fluoxetine 40 mg capsule 40 mg PO DAILY #90 caps 09/21/22 [Rx Last Taken 07/03/23] albuterol sulfate 2.5 mg/0.5 mL solution for nebulization 5 mg inhalation Q6H PRN shortness of breath or wheezing #30 ea 09/24/22 [Rx Last Taken Unknown] pantoprazole 40 mg tablet,delayed release 40 mg PO DAILY #90 tabs 01/19/23 [Rx Last Taken 07/03/23] cephalexin 250 mg capsule 250 mg PO PRN PRN AFTER INTERCOURSE 06/03/23 [History Last Taken Unknown] fluticasone propionate 50 mcg/actuation nasal spray,suspension (Flonase Allergy Relief) 1 spray intranasal DAILY PRN allergy symptoms 06/03/23 [History Last Taken 06/09/23] meloxicam 15 mg tablet 15 mg PO DAILY Pain 06/03/23 [History Last Taken 06/09/23] multivitamin-ferrous fumarate-folic acid 18 mg-400 mcg tablet (Centrum Complete) 1 tab PO DAILY 06/03/23 [History Last Taken 07/03/23] clindamycin phosphate 1 % topical gel 1 applic topical BID 07/04/23 [History Last Taken Unknown] cream base no.175 (bulk) (Versatile Rich topical cream) 1 applic topical .BIW 07/04/23 [History Last Taken Unknown] triamcinolone acetonide 0.1 % topical cream 1 applic topical PRN 07/04/23 [History Last Taken Unknown] Allergy/AdvReac Type Severity Reaction Status Date / Time ofloxacin Allergy Severe SWELLING Verified 07/04/23 07:29 Environmental Allergies: Allergy Intermediate Itching Verified 07/04/23 07:29 Uncoded Family History Grandmother Heart disease Colon cancer Diabetes Grandmother Diabetes Father Rheumatoid arthritis Mother Anxiety Arthritis Depression Brother Asthma Allergies Grandfather Cancer Surgical History History of carpal tunnel surgery History of esophagogastroduodenoscopy (EGD) History of tonsillectomy Hx of cholecystectomy Hx of colonoscopy S/P endometrial ablation Status post hysteroscopy Social History adopted: No household members: family housing: apartment number of children: 3 current occupational status: employed current occupation: [employer]- Patient Liason sexually active: Yes Smoking Status: Never smoker Electronic Cigarette Use: not used alcohol intake: current alcohol intake frequency: holidays/special occasions only details: social substance use type: does not use caffeine: Yes what type of physical activity do you participate in: none and walking frequency: 1-2 times per week seatbelt use: always do you feel safe at home: Yes additional social history: Single ROS ROS ED Constitutional Constitutional ED: Denies chills, fever(s) or sweats Eyes Eyes: Denies blurry vision or change in vision ENT ENT ED: Denies ear pain or sore throat Cardiovascular Cardiovascular: Denies chest pain, palpitations or racing heartbeat Respiratory/Chest Respiratory/Chest: Denies cough, dyspnea or sputum Gastrointestinal Gastrointestinal: Reports abdominal pain; Denies constipation, diarrhea, nausea or vomiting Genitourinary Genitourinary ED: Reports hematuria; Denies dysuria or urinary frequency Musculoskeletal Musculoskeletal: Denies arthralgias, myalgias or neck pain Integumentary Denies abscess, Abrasions or rash Neurologic Neurologic: Denies headache(s), paresthesias or weakness Psychiatric Psychiatric: Denies anxiety, depression, suicidal ideation or suicidal thoughts Endocrine Endocrinology: Denies polydipsia or polyuria EXAM Physical Exam Const Vital Signs: 07/04/23 07:28 07/04/23 07:42 07/04/23 09:30 Temperature 97 F L 97.0 F L Temperature Source Temporal Temporal Pulse Rate 93 116 H 89 Respiratory Rate 14 16 16 Blood Pressure 163/93 H 163/93 H 126/79 H Blood Pressure Mean 116 116 94 Pulse Ox 97 99 99 Oxygen Delivery Method Room Air Room Air Room Air Positive well nourished General Appearance ED: NAD HEENT Reports moist mucous membranes Eyes PERRL Chest Wall inspection of chest normal Resp normal respiratory effort Cardio regular rate and regular rhythm GI GI Narrative: Mild suprapubic pressure. Back/Spine no CVA tenderness Neuro oriented x3 Sensorium / Orientation: alert Psych mental status grossly normal Skin no rashes or lesions noted MDM MDM MDM Narrative Medical decision making narrative: Patient presented with hematuria and feels otherwise well other than some suprapubic pressure. This has been worked up and so far she does not have a urinary tract infection and she states that biopsies have been done and were negative. Patient is not anticoagulated. Urinalysis will be obtained. hCG will be obtained. After discussion patient only wants Tylenol for pain. Will obtain CT of the abdomen pelvis without contrast. Urinalysis shows occult blood with 500 protein. RBCs greater than 100 no infectious findings. Patient did have some nausea and was given Zofran. CT of the abdomen pelvis without contrast was obtained and shows no acute process. Given the patient's pain I spoke with Dr. Fair and she wanted the patient in for a repeatUrethral scope cystoscopy given the hematuria and the clots. Patient was amenable to this. IV line was established and basic lab work will be obtained for follow-up on the medical floor by urology. Impression: 1. Hematuria 2. Nausea Lab Data Labs: Laboratory Results - last 24 hr 07/04/23 07:38 Urine Color Red Urine Clarity Turbid Urine pH 5.0 Ur Specific [place] 1.030 Urine Protein 500 H Urine Glucose (UA) Normal Urine Ketones Negative Urine Occult Blood 250 H Urine Nitrite Negative Urine Bilirubin Negative Urine Urobilinogen 1 H Ur Leukocyte Esterase Negative Urine RBC > 100 SEEN Urine WBC 0 SEEN Ur Squamous Epith Cells 0 SEEN Urine Bacteria 0 SEEN Urine Mucus 0 SEEN Urine Test Negative Discharge Plan Triage Chief Complaint: Complaint ED Provider: Cirilo Garcias Dx/Rx/DC Orders Prescriptions: No Action albuterol sulfate 90 mcg/actuation HFA aerosol inhaler 2 puff inhalation Q6H PRN (Reason: shortness of breath or wheezing) Qty: 8.5 1RF dicyclomine 10 mg capsule 10 mg PO TID PRN (Reason: abdominal pain) bupropion HCl [Wellbutrin XL] 300 mg tablet extended release 24 hr 300 mg PO QAM Qty: 90 1RF triamcinolone acetonide 0.1 % cream 1 applic topical PRN clindamycin phosphate 1 % gel 1 applic topical BID Versatile Rich Cream 1 applic topical .BIW Centrum Complete 18-400 mg-mcg tablet 1 tab PO DAILY cephalexin 250 mg capsule 250 mg PO PRN PRN (Reason: AFTER INTERCOURSE) Patient Comments: TAKE 1 CAPSULE BY MOUTH ONCE DAILY AFTER INTERCOURSE meloxicam 15 mg tablet 15 mg PO DAILY Rx Instructions: Do not take in conjunction with other NSAIDs. Tylenol is okay. fluticasone propionate [Flonase Allergy Relief] 50 mcg/actuation spray,suspension 1 spray intranasal DAILY PRN (Reason: allergy symptoms) Rx Instructions: administer into each nostril lisinopril 5 mg tablet 5 mg PO DAILY Qty: 30 2RF ondansetron 4 mg tablet,disintegrating 4 mg PO Q8H PRN (Reason: nausea and vomiting) Qty: 30 5RF fluoxetine 40 mg capsule 40 mg PO DAILY Qty: 90 1RF albuterol sulfate 2.5 mg/0.5 mL solution for nebulization 5 mg inhalation Q6H PRN (Reason: shortness of breath or wheezing) Qty: 30 0RF pantoprazole 40 mg tablet,delayed release (DR/EC) 40 mg PO DAILY Qty: 90 2RF Primary Care Provider: Cailin Gomez NP Referrals: Cailin Gomez NP, ORTHODONTIC TECHNICIAN ASSISTANT-C [Primary Care Provider] -
[2023-07-04 07:53] LABS: Bacteria 0 SEEN /hpf (None Seen); Mucous, Urine 0 SEEN /hpf (<or=2+); Squamous Epithelial Cells - UA 0 SEEN /hpf (5-10); White Blood Cells 0 SEEN /hpf (0-5)
[2023-07-04] MEDS: Acetaminophen 500 MG Tablet 1000 MG PO (07:59)
[2023-07-04 08:13] LABS: Color, Urine Red (Yellow); Glucose, Dipstick Normal (Normal); Leukocyte Esterase-Dipstick Negative /ul (Negative); Nitrite-Dipstick Negative (Negative); Protein-Dipstick 500 mg/dl (Negative); Urine Bilirubin Dipstick Negative (Negative); Urine Clarity Turbid (Clear)
[2023-07-04 08:19] LABS: Ketone-Dipstick Negative (Negative); Occult Blood-Urine 250 /ul (Negative); Urine Urobilinogen 1 mg/dl (Normal)
[2023-07-04 08:23] LABS: Internal QC Validated? YES +Cl - CLEAR BKGD; Pregnancy, Urine Negative Negative; Red Blood Cells-Urine > 100 SEEN /hpf (0-5)
[2023-07-04] MEDS: Ondansetron ODT 4 MG Tablet PO (09:03)
--- NOTE | 2023-07-04 09:05 | ED.RN ---
pt reports feeling nauseous and worse pain has progressed to left flank area. i just feel off. reports when stood up in ct felt dizzy like drunk. given heat to place on flank area for pain and addressed nausea with dr. discussed with pt if zofran doesnt work may need to be more aggressive/invasive with iv, to let us know.
[2023-07-04 10:58] LABS: Absolute Neutrophil Count 3.7 X10^3/uL (2.0-7.7); Basophil# 0.07 X10^3/uL; Basophil% 1.1 % (0-1); Eosinophil# 0.31 X10^3/uL; Eosinophils% 4.9 % (0-5); Lymphocyte % 29.8 % (19-41); Mean Corp Hgb Conc 33.3 g/dL (32-36); Mean Corpuscular Hgb 30.9 pg (27.0-32.0); Mean Corpuscular Volume 92.6 fL (81-99); Mean Platelet Vol. 9.7 fl (6.2-12.0); Monocyte# 0.37 X10^3/uL; Monocyte% 5.8 % (0-10); NRBC Flagged by Analyzer 0 % (0-5); Neutrophil # 3.71 X10^3/uL (2.7-7.7); Neutrophil % 58.2 % (47-70); Platelet Count 282 K/mm3 (150-450); RBC Distribution Width SD 43.7 fl (35.1-43.9); Red Blood Count 4.21 M/mm3 (4.2-5.4); White Blood Count 6.4 K/mm3 (4.4-11.0)
[2023-07-04 11:28] LABS: Anion Gap 6 (5-15); BUN 16 mg/dL (7-18); BUN/Creat Ratio 21.9 RATIO (10-20); Calcium,Total 8.8 mg/dL (8.5-10.1); Chloride 108 mmol/L (98-107); Creatinine, Serum 0.73 mg/dL (0.55-1.02); EST Glomerular Filtration Rate 91 mL/min (>60); Est Glom Filt Rate - Afr Amer 110 mL/min (>60); Estimated Creatinine Clearance 124.56 ml/min; Glucose 88 mg/dL (74-106); Potassium 4.2 mmol/L (3.5-5.1); Sodium Level 138 mmol/L (136-145)
[2023-07-04] MEDS: Cefazolin 1 GM/50 ML BAG IV ×2 (12:43→21:41)
[2023-07-04] MEDS: Lactated Ringers 1,000 ML 100 ML IV ×2 (12:43→21:40)
[2023-07-04] MEDS: oxyCODONE 5 MG Tablet PO ×2 (12:44→21:44)
[2023-07-04] MEDS: 0.9% Saline Lock 10 ML Syringe IV (12:44)
[2023-07-04] MEDS: Meloxicam 15 MG Tablet PO (12:44)
[2023-07-04] MEDS: Dicyclomine 10 MG Capsule PO (12:44)
[2023-07-04] MEDS: Pantoprazole Sodium 40 MG Tablet PO (12:44)
[2023-07-04] MEDS: Fluoxetine HCl 40 MG CAPSULE PO (12:45)
[2023-07-04] MEDS: Lisinopril 5 MG Tablet PO (12:45)
[2023-07-04] MEDS: buPROPion (XL) 300 MG TABLET.XL PO (12:45)
--- NOTE | 2023-07-04 20:51 | PCM.HP.STD ---
[facility] General Date of Admission: 07/04/23 Chief Complaint: Gross hematuria [facility] Narrative MARCELINO CARDONA, is a 47 F who presented to the ER today after having a recurrence of her gross hematuria. She was seen in the office last week and a culture was done but is not back yet. The hematuria had resolved. It has now recurred with more clots and discomfort including some left flank pain. She did initially have some nausea earlier in the morning but not since her admission. No fever, chills. She did undergo a cystoscopy with bladder biopsy approximately 4 weeks ago for squamous 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 [facility] Medical History (Updated 07/04/23 @ 20:[address] Cailin Fair MD) Acid reflux Alcohol use Anemia Anxiety Arthritis Asthma Back pain Bladder disease Bloating Chronic diarrhea Cough Depression Difficulty swallowing Easy bruising Gastric reflux Gross hematuria Herpes zoster History of anxiety History of gastrointestinal disorder History of IBS History of nasal obstruction History of skin cancer History of steroid therapy Hx of carpal tunnel syndrome Hx of seasonal allergies Hx: UTI (urinary tract infection) Hypertension IBS (irritable bowel syndrome) Lesion of bladder Menorrhagia with regular cycle Nausea Non-smoker Pelvic pain Urinary tract infection Vitamin D deficiency Wears glasses Home Medications albuterol sulfate 90 mcg/actuation aerosol inhaler 2 puff inhalation Q6H PRN shortness of breath or wheezing #8.5 grams 12/10/21 [Rx Last Taken Unknown] dicyclomine 10 mg capsule 10 mg PO TID PRN abdominal pain 06/03/22 [History Last Taken Unknown] bupropion HCl 300 mg 24 hr tablet, extended release (Wellbutrin XL) 300 mg PO QAM #90 tabs 06/24/22 [Rx Last Taken 07/03/23] lisinopril 5 mg tablet 5 mg PO DAILY #30 tabs 08/13/22 [Rx Last Taken 07/03/23] ondansetron 4 mg disintegrating tablet 4 mg PO Q8H PRN nausea and vomiting #30 tabs 09/01/22 [Rx Last Taken Unknown] fluoxetine 40 mg capsule 40 mg PO DAILY #90 caps 09/21/22 [Rx Last Taken 07/03/23] albuterol sulfate 2.5 mg/0.5 mL solution for nebulization 5 mg inhalation Q6H PRN shortness of breath or wheezing #30 ea 09/24/22 [Rx Last Taken Unknown] pantoprazole 40 mg tablet,delayed release 40 mg PO DAILY #90 tabs 01/19/23 [Rx Last Taken 07/03/23] cephalexin 250 mg capsule 250 mg PO PRN PRN AFTER INTERCOURSE 06/03/23 [History Last Taken Unknown] fluticasone propionate 50 mcg/actuation nasal spray,suspension (Flonase Allergy Relief) 1 spray intranasal DAILY PRN allergy symptoms 06/03/23 [History Last Taken 06/09/23] meloxicam 15 mg tablet 15 mg PO DAILY Pain 06/03/23 [History Last Taken 06/09/23] multivitamin-ferrous fumarate-folic acid 18 mg-400 mcg tablet (Centrum Complete) 1 tab PO DAILY 06/03/23 [History Last Taken 07/03/23] clindamycin phosphate 1 % topical gel 1 applic topical BID 07/04/23 [History Last Taken Unknown] cream base no.175 (bulk) (Versatile Rich topical cream) 1 applic topical .BIW 07/04/23 [History Last Taken Unknown] triamcinolone acetonide 0.1 % topical cream 1 applic topical PRN 07/04/23 [History Last Taken Unknown] Allergy/AdvReac Type Severity Reaction Status Date / Time ofloxacin Allergy Severe SWELLING Verified 07/04/23 07:29 Environmental Allergies: Allergy Intermediate Itching Verified 07/04/23 07:29 Uncoded Family History Grandmother Heart disease Colon cancer Diabetes Grandmother Diabetes Father Rheumatoid arthritis Mother Anxiety Arthritis Depression Brother Asthma Allergies Grandfather Cancer Surgical History History of carpal tunnel surgery History of esophagogastroduodenoscopy (EGD) History of tonsillectomy Hx of cholecystectomy Hx of colonoscopy S/P endometrial ablation Status post hysteroscopy Social History adopted: No household members: family housing: apartment number of children: 3 current occupational status: employed current occupation: [employer]- Patient Liason sexually active: Yes Smoking Status: Never smoker Electronic Cigarette Use: not used alcohol intake: current alcohol intake frequency: holidays/special occasions only details: social substance use type: does not use caffeine: Yes what type of physical activity do you participate in: none and walking frequency: 1-2 times per week seatbelt use: always do you feel safe at home: Yes additional social history: Single ROS Constitutional Constitutional: Reports systems reviewed and no addt'l complaints, except as documented Eyes Eyes: Reports systems reviewed and no addt'l complaints, except as documented ENT HEENT: Reports systems reviewed and no addt'l complaints, except as documented Cardiovascular Cardiovascular: Reports systems reviewed and no addt'l complaints, except as documented Respiratory/Chest Respiratory/Chest: Reports systems reviewed and no addt'l complaints, except as documented Gastrointestinal Gastrointestinal: Reports abdominal pain Genitourinary Genitourinary: Reports abdominal discomfort, dysuria, flank pain, hematuria and urinary urgency Musculoskeletal Musculoskeletal: Reports back pain Integumentary Integumentary: Reports systems reviewed and no addt'l complaints, except as documented Neurologic Neurologic: Reports systems reviewed and no addt'l complaints, except as documented Psychiatric Psychiatric: Reports systems reviewed and no addt'l complaints, except as documented Endocrine Endocrinology: Reports systems reviewed and no addt'l complaints, except as documented Hematologic/Lymphatic Hematologic/Lymphatic: Reports systems reviewed and no addt'l complaints, except as documented Allergic/Immunologic Allergic/Immunologic: Reports systems reviewed and no addt'l complaints, except as documented Vital Signs Vital Signs Vital Signs: 07/04/23 07:28 07/04/23 07:42 07/04/23 09:30 Temperature 97 F L 97.0 F L Temperature Source Temporal Temporal Pulse Rate 93 116 H 89 Pulse Rate [Lying] Pulse Rate [Sitting (for 1 minute prior to obtaining)] Respiratory Rate 14 16 16 Respiratory Effort Respiratory Depth Respiratory Pattern Blood Pressure 163/93 H 163/93 H 126/79 H Blood Pressure [Lying] Blood Pressure [Sitting (for 1 minute prior to obtaining)] Blood Pressure [Standing (for 1 minute prior to obtaining)] Blood Pressure Mean 116 116 94 Blood Pressure Mean [Lying] Blood Pressure Mean [Sitting (for 1 minute prior to obtaining)] Blood Pressure Mean [Standing (for 1 minute prior to obtaining)] Blood Pressure Source Blood Pressure Position Blood Pressure Location Pulse Ox 97 99 99 Oxygen Delivery Method Room Air Room Air Room Air 07/04/23 11:00 07/04/23 11:33 07/04/23 11:36 Temperature 97.5 F L Temperature Source Pulse Rate 88 Pulse Rate [Lying] 81 Pulse Rate [Sitting (for 1 minute prior to obtaining)] 90 Respiratory Rate 16 Respiratory Effort Normal Respiratory Depth Respiratory Pattern Blood Pressure 115/57 L Blood Pressure [Lying] 117/68 Blood Pressure [Sitting (for 1 minute prior to obtaining)] 122/76 H Blood Pressure [Standing (for 1 minute prior to obtaining)] 128/70 H Blood Pressure Mean 76 Blood Pressure Mean [Lying] 84 Blood Pressure Mean [Sitting (for 1 minute prior to obtaining)] 91 Blood Pressure Mean [Standing (for 1 minute prior to obtaining)] 89 Blood Pressure Source Blood Pressure Position Blood Pressure Location Pulse Ox 97 Oxygen Delivery Method 07/04/23 11:42 07/04/23 15:26 07/04/23 20:45 Temperature 99.0 F 98.1 F Temperature Source Oral Oral Pulse Rate 81 84 Pulse Rate [Lying] Pulse Rate [Sitting (for 1 minute prior to obtaining)] Respiratory Rate 18 18 Respiratory Effort Normal Respiratory Depth Normal Respiratory Pattern Normal Blood Pressure 117/68 125/74 H Blood Pressure [Lying] Blood Pressure [Sitting (for 1 minute prior to obtaining)] Blood Pressure [Standing (for 1 minute prior to obtaining)] Blood Pressure Mean 84 91 Blood Pressure Mean [Lying] Blood Pressure Mean [Sitting (for 1 minute prior to obtaining)] Blood Pressure Mean [Standing (for 1 minute prior to obtaining)] Blood Pressure Source Monitor Monitor Blood Pressure Position Semi-Fowlers Semi-Fowlers Blood Pressure Location Right Arm Right Arm Pulse Ox 98 98 Oxygen Delivery Method Room Air Room Air Room Air Weight Weight: 105.233 kg Body Mass Index (BMI) 35.2 Physical Exam Const alert, oriented x3 and no apparent distress General Appearance: cooperative, comfortable and well kempt HEENT normocephalic, head/scalp atraumatic, hearing grossly normal bilaterally, external ears normal, external nose normal and moist oral mucous membranes Eyes General Eye: normal appearance of both eyes Neck supple General: normal visual inspection and trachea midline Lymph Lymphatic: no lymphedema noted Chest inspection of chest normal Resp normal respiratory effort and normal air movement Cardio regular rate GI soft to palpation, non-tender and non-distended Bladder / Kidney Exam: CVA tenderness left Extremity normal to inspection Skin no rashes or lesions noted, no wounds, skin turgor normal, no jaundice, no petechiae and no mottling Neuro oriented x3, CN's II-XII intact bilaterally and moves all extremities Psych mental status grossly normal Results Lab / Micro Data 07/04/23 10:45 07/04/23 10:45 Labs: Laboratory Results - last 24 hr 07/04/23 07:38: Urine Color Red, Urine Clarity Turbid, Urine pH 5.0, Ur Specific [place] 1.030, Urine Protein 500 H, Urine Glucose (UA) Normal, Urine Ketones Negative, Urine Occult Blood 250 H, Urine Nitrite Negative, Urine Bilirubin Negative, Urine Urobilinogen 1 H, Ur Leukocyte Esterase Negative, Urine RBC > 100 SEEN, Urine WBC 0 SEEN, Ur Squamous Epith Cells 0 SEEN, Urine Bacteria 0 SEEN, Urine Mucus 0 SEEN, Urine Test Negative 07/04/23 10:45: WBC 6.4, RBC 4.21, Hgb 13.0, Hct 39.0, MCV 92.6, MCH 30.9, MCHC 33.3, RDW Std Deviation 43.7, RDW Coeff of [place] 13.0, Plt Count 282, MPV 9.7, Immature Gran % (Auto) 0.200, Neut % (Auto) 58.2, Lymph % (Auto) 29.8, [place] % (Auto) 5.8, Eos % (Auto) 4.9, Baso % (Auto) 1.1 H, Absolute Neuts (auto) 3.7, Absolute Lymphs (auto) 1.90, Nucleated RBC % 0, Sodium 138, Potassium 4.2, Chloride 108 H, Carbon Dioxide 24.0, Anion Gap 6, BUN 16, Creatinine 0.73, Estim Creat Clear Calc 124.56, Est GFR (MDRD) Af Amer 110, Est GFR (MDRD) Non-Af 91, BUN/Creatinine Ratio 21.9 H, Glucose 88, Calcium 8.8 Imaging Radiology Impression Abdomen/Pelvis CT 07/04/23 07:47 IMPRESSION: No suspicious solid organ abnormality No free intraperitoneal fluid, air, or suspicious adenopathy. Normal appendix visualized No interval change Electronically Signed: Jayesh Landaverde MD at 8:50 EDT Reading Location ID and State: [address] [place] [address] , Service support , Assessment & Plan Assessment/Plan (1) Gross hematuria: (2) Lesion of bladder: PLAN: Plan Urine culture is pending Follow labs and supportive care N.p.o. after midnight Plan for cystoscopy with fulguration in the OR tomorrow, bilateral retrograde pyelograms, possible ureteroscopy
[2023-07-05] VITALS (9 sets, daily range): BP systolic 115–149; BP diastolic 71–91; PULSE 73–80; RESP 16–18; TEMP 36.3–37; O2SAT 97–99; BMI 35.2
[2023-07-05] MEDS: oxyCODONE 5 MG Tablet PO (04:02)
[2023-07-05 04:39] LABS: Hematocrit 34.6 % (37-47); Hemoglobin 11.7 g/dL (12.0-15.0)
[2023-07-05] MEDS: Cefazolin 1 GM/50 ML BAG IV (05:12)
[2023-07-05] MEDS: Lactated Ringers 1,000 ML 100 ML IV (05:13)
--- NOTE | 2023-07-05 06:00 | EKG12_ITS ---
Test Reason : PRE OP Blood Pressure : / mmHG Vent. Rate : 079 BPM Atrial Rate : 079 BPM P-R Int : 170 ms QRS Dur : 086 ms QT Int : 384 ms P-R-T Axes : 016 016 022 degrees QTc Int : 440 ms Normal sinus rhythm Normal ECG Confirmed by Mickey Gutiérrez ([id number]), graphics editor ZITA CAMPBELL ([id number]) on 07/05/2023 1:18:53 PM Referred By: ED Confirmed By:Mickey Gutiérrez
--- NOTE | 2023-07-05 11:22 | NURSING ---
To OR via bed
--- NOTE | 2023-07-05 13:08 | DCINST_ITS ---
Discharge Instructions Diet Discharge Diet: No restrictions Activity Discharge Activity: Return to Normal Activity Dressing / Incision Call your doctor if you observe: Fever of 101 or Higher, Inability to urinate and Inability to have a bowel movement Follow Up Care Please Follow Up With: Cailin Fair MD When: The office will call her to set up the next procedure Test Results: Test results from this visit will be discussed in further detail at your follow- up appointment, if applicable. Discharge Plan Admission Admit Date/Time: 07/04/23 10:46 Attending Provider: Cailin Fair Primary Care Provider: Cailin Gomez AMMUNITION ASSEMBLY I LABORER Discharge Orders/Prescriptions Prescriptions: New oxycodone-acetaminophen [Percocet] 5-325 mg tablet 1 tab PO Q8H PRN (Reason: pain) 3 Days Qty: 10 0RF cephalexin [cephalexin] 500 mg capsule 500 mg PO Q12 3 Days Qty: 6 0RF phenazopyridine [Pyridium] 200 mg tablet 200 mg PO TID PRN PRN (Reason: Bladder Spasms) 7 Days Qty: 30 0RF Continued albuterol sulfate 90 mcg/actuation HFA aerosol inhaler 2 puff inhalation Q6H PRN (Reason: shortness of breath or wheezing) Qty: 8.5 1RF dicyclomine 10 mg capsule 10 mg PO TID PRN (Reason: abdominal pain) bupropion HCl [Wellbutrin XL] 300 mg tablet extended release 24 hr 300 mg PO QAM Qty: 90 1RF triamcinolone acetonide 0.1 % cream 1 applic topical PRN clindamycin phosphate 1 % gel 1 applic topical BID Versatile Rich Cream 1 applic topical .BIW Centrum Complete 18-400 mg-mcg tablet 1 tab PO DAILY cephalexin 250 mg capsule 250 mg PO PRN PRN (Reason: AFTER INTERCOURSE) Patient Comments: TAKE 1 CAPSULE BY MOUTH ONCE DAILY AFTER INTERCOURSE meloxicam 15 mg tablet 15 mg PO DAILY Rx Instructions: Do not take in conjunction with other NSAIDs. Tylenol is okay. fluticasone propionate [Flonase Allergy Relief] 50 mcg/actuation spray,suspension 1 spray intranasal DAILY PRN (Reason: allergy symptoms) Rx Instructions: administer into each nostril lisinopril 5 mg tablet 5 mg PO DAILY Qty: 30 2RF ondansetron 4 mg tablet,disintegrating 4 mg PO Q8H PRN (Reason: nausea and vomiting) Qty: 30 5RF fluoxetine 40 mg capsule 40 mg PO DAILY Qty: 90 1RF albuterol sulfate 2.5 mg/0.5 mL solution for nebulization 5 mg inhalation Q6H PRN (Reason: shortness of breath or wheezing) Qty: 30 0RF pantoprazole 40 mg tablet,delayed release (DR/EC) 40 mg PO DAILY Qty: 90 2RF Referrals / Follow Up: Cailin Gomez AMMUNITION ASSEMBLY I LABORER, AMMUNITION ASSEMBLY I LABORER-C [Primary Care Provider] - Disposition Disposition (needs filled in before D/C Order can be placed): Home, Self Care
--- NOTE | 2023-07-05 13:21 | PCM.OPRPT ---
Report of Operation Date of Procedure: 07/05/23 Pre-Operative Diagnosis: Gross hematuria, left flank pain Post-Operative Diagnosis: Same Surgery/Procedure Performed:: Cystoscopy, bilateral retrograde pyelograms, attempted left ureteroscopy, left ureteral stent insertion Surgeon: Cailin Fair Type of Anesthesia: General Description of Procedure: The patient is a 47-year-old female who had a bladder biopsy with fulguration a few weeks ago who presented to the emergency room with recurrent gross hematuria with clot. She now presents for evaluation with cystoscopy. Informed consent was obtained. She was taken to the operating room and placed on the operating room table. Anesthesia monitored the head, neck, airway, IV access and vital signs throughout the case. Once anesthesia was appropriately administered, she was placed into dorsolithotomy position was prepped and draped in usual sterile fashion. The cystoscope was inserted through the urethra under direct visualization into the urinary bladder. The area of biopsy was identified and was not bleeding nor was it erythematous. It was not completely healed. An 8 Beninese cone-tip catheter was used to gently cannulate the left ureteral orifice and contrast was injected in retrograde fashion under fluoroscopic visualization revealing no evidence of obstruction, foreign body or abnormality. The same findings were found on the patient's right side with the retrograde pyelogram. An attempt was made at left ureteroscopy with both the flexible and a semirigid ureteroscope. The ureter was narrow and would not accommodate either scope. Secondary to edema and narrowing the decision was made to leave a ureteral stent and come back for further evaluation. The 0.035 safety wire was used for placement of a 6 Beninese 26 cm JJ stent with positioning in the renal pelvis as well as the bladder. The bladder was then emptied and the cystoscope was removed. The patient was then awakened and taken to the recovery room in good condition. There were no complications during this procedure. Grafts/Implants Used: 6 x 26 JJ stent Complications None Admit VTE Documentation VTE Present on Admission: Yes VTE Mechan Device Prophylaxis: SCD's VTE Pharm Prophylaxis ordered?: No Reason prophylaxis not ordered:: Treatment Not Indicated
--- NOTE | 2023-07-05 14:46 | PHA.DC_ITS ---
Pharmacy [facility] has performed discharge medication reconciliation and counseling for this patient. 1. CEPHALEXIN 500MG PO Q12 X 3 DAYS 2. OXYCODONE/ACETAMINOPHEN 5/325MG 1T PO Q8H PRN PAIN 3. PHENAZOPYRIDINE 200MG PO TID PRN BLADDER SPASMS X 7 DAYS The patient's discharge medication list was reviewed for discrepancies and discr epancies were resolved. The patient was counseled on the following discharge medications and changes in medications for homegoing were reviewed. The Reason for Use, instructions for use, and potential side effects were reviewed for all new medications. The patient's questions regarding all of their medications were answered. The patient was able to verbally demonstrate an understanding of their discharge medications. Medications at Discharge Home Medications albuterol sulfate 90 mcg/actuation aerosol inhaler 2 puff inhalation Q6H PRN shortness of breath or wheezing #8.5 grams 12/10/21 dicyclomine 10 mg capsule 10 mg PO TID PRN abdominal pain 06/03/22 bupropion HCl 300 mg 24 hr tablet, extended release (Wellbutrin XL) 300 mg PO QAM #90 tabs 06/24/22 lisinopril 5 mg tablet 5 mg PO DAILY #30 tabs 08/13/22 ondansetron 4 mg disintegrating tablet 4 mg PO Q8H PRN nausea and vomiting #30 tabs 09/01/22 fluoxetine 40 mg capsule 40 mg PO DAILY #90 caps 09/21/22 albuterol sulfate 2.5 mg/0.5 mL solution for nebulization 5 mg inhalation Q6H PRN shortness of breath or wheezing #30 ea 09/24/22 pantoprazole 40 mg tablet,delayed release 40 mg PO DAILY #90 tabs 01/19/23 cephalexin 250 mg capsule 250 mg PO PRN PRN AFTER INTERCOURSE 06/03/23 fluticasone propionate 50 mcg/actuation nasal spray,suspension (Flonase Allergy Relief) 1 spray intranasal DAILY PRN allergy symptoms 06/03/23 meloxicam 15 mg tablet 15 mg PO DAILY Pain 06/03/23 multivitamin-ferrous fumarate-folic acid 18 mg-400 mcg tablet (Centrum Complete) 1 tab PO DAILY 06/03/23 clindamycin phosphate 1 % topical gel 1 applic topical BID 07/04/23 cream base no.175 (bulk) (Versatile Rich topical cream) 1 applic topical .BIW 07/04/23 triamcinolone acetonide 0.1 % topical cream 1 applic topical PRN 07/04/23 cephalexin 500 mg capsule 500 mg PO Q12 post-operative 3 days #6 CAPSULES 07/05/23 oxycodone-acetaminophen 5 mg-325 mg tablet (Percocet) 1 tab PO Q8H PRN pain 3 days #10 tabs 07/05/23 phenazopyridine 200 mg tablet (Pyridium) 200 mg PO TID PRN PRN Bladder Spasms 7 days #30 tabs 07/05/23
== END 2023-07-05 14:55 | disposition home or self-care (01) ==
LOC: ED 08:26 → MS3 07-05 06:37
PROVIDERS: Admitting Provider Urology; Emergency Provider Student in an Organized Health Care Education/Training Program; PCP Registered Nurse; Visit Provider Urology
PROC: 0TBB8ZX Excision of Bladder, Via Natural or Artificial Opening Endoscopic, Diagnostic (ICD-10-PCS; CPT 52332; principal; 2023-07-05 12:20)
DX: R31.0 Gross hematuria (principal); K58.9 Irritable bowel syndrome, unspecified; I10 Essential (primary) hypertension; E55.9 Vitamin D deficiency, unspecified; Z79.899 Other long term (current) drug therapy; F41.9 Anxiety disorder, unspecified; F32.A Depression, unspecified; R10.9 Unspecified abdominal pain; K21.9 Gastro-esophageal reflux disease without esophagitis
CPT/HCPCS: 52332; 00910; C2617; 36415; 74176; 76000; 80048; 81001; 81025; 85014; 85018; 85025; 93005; 96361; 96365; 96366; 99283; J7120; A4216; J2405

== ENCOUNTER → 2023-07-14 | Outpatient (CLI) | payer MEDICAID, SELFPAY ==
[2023-07-20 14:08] LABS: HPV APTIMA, High Risk Negative (Negative)
== END | disposition home or self-care (01) ==
PROVIDERS: PCP Registered Nurse; Referring Provider Nurse Practitioner Family; Visit Provider Nurse Practitioner Family
DX: Z12.4 Encounter for screening for malignant neoplasm of cervix (principal); R30.0 Dysuria
CPT/HCPCS: 87086; 87624; 88175; G0145

== ENCOUNTER 2024-02-13 21:54 | Emergency (ER) | payer MEDICAID, SELFPAY ==
[2024-02-13 21:54] VITALS: BP 137/103; PULSE 96; RESP 18; TEMP 35.8; O2SAT 97; BMI 37.5
--- NOTE | 2024-02-13 22:32 | CT_ITS ---
INDICATION: head injury EXAMINATION: CT BRAIN - CT Head or Brain W/O Contrast Injection TECHNIQUE: Multiple axial images were obtained of the head without intravenous contrast. The protocol utilizes one or more of the following dose reduction techniques: automated exposure control, adjustment of mA and/or kV according to patient size,and/or use of iterative reconstruction technique. IV Contrast dosage and agent: None. RADIATION DOSAGE (If Supplied By Facility): CTDIvol = ( 44.99 ) mGy, DLP = ( 829.85 ) mGycm COMPARISON: Prior study dated: 03/17/2013 FINDINGS: BRAIN: No acute bleed. No edema. Freire-white matter differentiation is maintained. VENTRICLES AND SULCI: Not dilated. EXTRA-AXIAL: No hemorrhage, fluid collection, or mass. CALVARIUM / SKULL BASE: Unremarkable. FACE/SINUSES: Unremarkable. SOFT TISSUES: Unremarkable. CT/Brain/Head without Contrast IMPRESSION: No acute abnormality. Electronically Signed: Sadie Leroy MD at 23:42 EST ,
[2024-02-13] MEDS: Ondansetron ODT 4 MG Tablet PO (23:01)
--- NOTE | 2024-02-13 23:54 | EX.ED.DYSGE1 ---
HPI History of Present Illness Chief Complaint: Fall Informant: patient Narrative Narrative: Patient is a 48-year-old female with past medical history of anxiety and depression as well as IBS. She states approximately 8 to 10 hours ago she was sitting on a stool when she lost her balance and fell landing on her left side. She reports she struck her head but denies any loss of consciousness. She states there is no history of bleeding disorder nor does she take blood thinners. She states she felt sore following the injury but was able to get back up. She states this evening she tried to sleep and had worsening headache with light sensitivity and nausea. Secondary to the symptoms she was concerned about underlying trauma/injury and therefore comes in for evaluation [facility] Medical History (Updated 02/16/24 @ 04:[address] Chapincito De La Rosa, DO) Left shoulder pain Osteoarthritis of right knee Right knee pain Urinary tract infection Gross hematuria Lesion of bladder Wears glasses Anxiety Alcohol use History of steroid therapy Arthritis Bladder disease Easy bruising Back pain Difficulty swallowing History of IBS Gastric reflux Non-smoker Hypertension History of nasal obstruction Nausea Bloating History of skin cancer IBS (irritable bowel syndrome) History of gastrointestinal disorder Hx of carpal tunnel syndrome Hx: UTI (urinary tract infection) Hx of seasonal allergies Cough Herpes zoster Pelvic pain Menorrhagia with regular cycle Asthma Anemia Depression Acid reflux Vitamin D deficiency Chronic diarrhea History of anxiety Home Medications ?Medication ?Instructions ?Recorded ?Last Taken ?Type albuterol sulfate 90 mcg/actuation 2 puff inhalation Q6H PRN 12/10/21 Unknown Rx aerosol inhaler shortness of breath or wheezing #8.5 grams dicyclomine 10 mg capsule 10 mg PO TID PRN abdominal pain 06/03/22 Unknown History bupropion HCl 300 mg 24 hr tablet, 300 mg PO QAM #90 tabs 06/24/22 07/03/23 Rx extended release (Wellbutrin XL) lisinopril 5 mg tablet 5 mg PO DAILY #30 tabs 08/13/22 07/03/23 Rx ondansetron 4 mg disintegrating 4 mg PO Q8H PRN nausea and 09/01/22 Unknown Rx tablet vomiting #30 tabs fluoxetine 40 mg capsule 40 mg PO DAILY #90 caps 09/21/22 07/03/23 Rx albuterol sulfate 2.5 mg/0.5 mL 5 mg inhalation Q6H PRN shortness 09/24/22 Unknown Rx solution for nebulization of breath or wheezing #30 ea fluticasone propionate 50 1 spray intranasal DAILY PRN 06/03/23 06/09/23 History mcg/actuation nasal allergy symptoms spray,suspension (Flonase Allergy Relief) meloxicam 15 mg tablet 15 mg PO DAILY Pain 06/03/23 06/09/23 History multivitamin-ferrous 1 tab PO DAILY 06/03/23 07/03/23 History fumarate-folic acid 18 mg-400 mcg tablet (Centrum Complete) clindamycin phosphate 1 % topical 1 applic topical BID 07/04/23 Unknown History gel cream base no.175 (bulk) 1 applic topical .BIW 07/04/23 Unknown History (Versatile Rich topical cream) triamcinolone acetonide 0.1 % 1 applic topical PRN 07/04/23 Unknown History topical cream pantoprazole 20 mg tablet,delayed 20 mg PO BID #60 tabs 11/08/23 Unknown Rx release estradiol 0.01% (0.1 mg/gram) See Rx Instructions vaginal 11/22/23 Unknown History vaginal cream .COMPLEX ondansetron 4 mg disintegrating 4 mg PO TID PRN nausea and 02/13/24 Unknown Rx tablet vomiting #21 tabs oxycodone 5 mg tablet 5 mg PO Q6H PRN pain 3 days #12 02/13/24 Unknown Rx tabs Allergy/AdvReac Type Severity Reaction Status Date / Time ofloxacin Allergy Severe SWELLING Verified 02/13/24 22:00 Environmental Allergies: Allergy Intermediate Itching Verified 02/13/24 22:00 Uncoded Family History Grandmother Heart disease Colon cancer Diabetes Grandmother Diabetes Father Rheumatoid arthritis Mother Anxiety Arthritis Depression Brother Asthma Allergies Grandfather Cancer Surgical History History of esophagogastroduodenoscopy (EGD) Hx of colonoscopy S/P endometrial ablation Status post hysteroscopy History of tonsillectomy History of carpal tunnel surgery Hx of cholecystectomy Social History adopted: No household members: family housing: apartment number of children: 3 current occupational status: employed current occupation: [employer] sexually active: Yes Smoking Status: Never smoker Electronic Cigarette Use: not used alcohol intake: current alcohol intake frequency: holidays/special occasions only details: social substance use type: does not use caffeine: Yes what type of physical activity do you participate in: none and walking frequency: 1-2 times per week seatbelt use: always do you feel safe at home: Yes additional social history: Single ROS ROS ED Constitutional Constitutional ED: Denies chills or fever(s) Eyes Eyes: Reports other Details: Positive photophobia ; Denies blurry vision or diplopia ENT ENT ED: Denies sore throat Cardiovascular Cardiovascular: Denies chest pain Respiratory/Chest Respiratory/Chest: Denies cough or dyspnea Gastrointestinal Gastrointestinal: Reports abdominal pain; Denies diarrhea, nausea or vomiting Genitourinary Genitourinary ED: Denies dysuria Musculoskeletal Musculoskeletal: Denies back pain or neck pain Integumentary Reports Abrasions Neurologic Neurologic: Reports headache(s); Denies paresthesias or weakness Psychiatric Psychiatric: Reports anxiety and depression Hematologic/Lymphatic Hematologic/Lymphatic: Denies easy bleeding or easy bruising EXAM Physical Exam Const Vital Signs: 02/13/24 21:54 Temperature 96.5 F L Temperature Source Temporal Pulse Rate 96 Respiratory Rate 18 Blood Pressure 137/103 H Blood Pressure Mean 114 Pulse Ox 97 Oxygen Delivery Method Room Air Positive well nourished and well developed General Appearance ED: well developed HEENT HEENT Narrative: Normocephalic atraumatic No signs of depressed or basilar skull fracture Eyes PERRL and EOMs intact bilaterally General Eye ED: Negative for scleral icterus Neck supple Neck Narrative: No bony deformity or step-off of the cervical spine no midline tenderness to palpation Patient is able to move her neck in all directions without pain Chest Wall Chest Narrative: Chest wall stable without bony deformity or crepitance There is pain with palpation along the anterior lateral left rib cage ribs 8-12 Resp normal respiratory effort and clear to auscultation bilaterally Cardio regular rate and regular rhythm GI non-distended and no masses GI Narrative: Abdomen is soft and nondistended with normal active bowel sounds. Patient does have a thin ribbon of ecchymosis along the upper mid abdomen consistent with her report of fall and striking a open drawer. No obvious hematoma. No fluid wave. No pulsatile mass. No peritoneal signs or rigidity. Auscultation: normoactive bowel sounds Palpation: soft Back/Spine Back/Spine Narrative: No bony deformity or step-off of the thoracic or lumbar spine no midline tenderness to palpation Extremity Extremity Narrative: Patient has small area of ecchymosis along the medial aspect of the left elbow near the medial epicondyle. Otherwise there is no joint effusion or bony deformity. No ligamentous laxity. Patient has full active range of motion. The left upper extremity is neurovascularly intact Neuro oriented x3, CN's II-XII intact bilaterally and no sensory deficits noted Sensorium / Orientation: alert Motor Exam: strength 5/5 throughout Psych mental status grossly normal Skin Skin Narrative: Ecchymotic lesion along the left elbow and across the upper abdomen as documented above MDM MDM MDM Narrative Medical decision making narrative: Patient arrived to ER hypertensive but has a past medical history of this. She reports she fell 8 to 10 hours ago and she denies any loss of consciousness or blood thinner use. With her report of headache nausea and light sensitivity this is most likely concussion however in order to ensure she does not have a traumatic skull fracture versus traumatic subdural or subarachnoid hemorrhage a CT of the head was obtained. We discussed obtaining x-rays of her rib cage and left elbow in order to ensure she did not have a rib fracture or pneumothorax or bony injury. However the patient's main concern is underlying head trauma and therefore she does not want plain film x-rays obtained. CT of the head was ordered and revealed no acute traumatic finding. On reevaluation she is awake and alert with normal neurologic exam. Therefore as workup today shows no underlying signs of trauma and her history is most consistent with concussion but she is otherwise hemodynamically stable with normal neurologic exam she is safe for discharge home with symptomatic care. Of note we did discuss potential CT scan of the abdomen secondary to the ecchymotic lesion but concern for an intestinal hematoma or liver or spleen laceration is low based on her physical exam and history as well as timeframe from the initial injury History & Record Review Discussion w/independent historian: Patient Radiography Diagnostic Testing: Clinical Impression(s) from Imaging Studies Brain CT 02/13/24 22:32 IMPRESSION: No acute abnormality. Electronically Signed: Sadie Leroy MD at 23:42 EST Reading Location ID and State: [facility] / [place] Tel , Service support , Discharge Plan Triage Chief Complaint: Fall ED Provider: Chapincito De La Rosa Dx/Rx/DC Orders Clinical Impression: Concussion, Contusion of multiple sites, Hypertension, Anxiety and depression Instructions: After a Concussion, ED Concussion Prescriptions: New ondansetron 4 mg tablet,disintegrating 4 mg PO TID PRN (Reason: nausea and vomiting) Qty: 21 0RF oxycodone 5 mg tablet 5 mg PO Q6H PRN (Reason: pain) 3 Days Qty: 12 0RF No Action albuterol sulfate 90 mcg/actuation HFA aerosol inhaler 2 puff inhalation Q6H PRN (Reason: shortness of breath or wheezing) Qty: 8.5 1RF dicyclomine 10 mg capsule 10 mg PO TID PRN (Reason: abdominal pain) bupropion HCl [Wellbutrin XL] 300 mg tablet extended release 24 hr 300 mg PO QAM Qty: 90 1RF triamcinolone acetonide 0.1 % cream 1 applic topical PRN clindamycin phosphate 1 % gel 1 applic topical BID Versatile Rich Cream 1 applic topical .BIW Centrum Complete 18-400 mg-mcg tablet 1 tab PO DAILY meloxicam 15 mg tablet 15 mg PO DAILY Rx Instructions: Do not take in conjunction with other NSAIDs. Tylenol is okay. fluticasone propionate [Flonase Allergy Relief] 50 mcg/actuation spray,suspension 1 spray intranasal DAILY PRN (Reason: allergy symptoms) Rx Instructions: administer into each nostril lisinopril 5 mg tablet 5 mg PO DAILY Qty: 30 2RF ondansetron 4 mg tablet,disintegrating 4 mg PO Q8H PRN (Reason: nausea and vomiting) Qty: 30 5RF fluoxetine 40 mg capsule 40 mg PO DAILY Qty: 90 1RF albuterol sulfate 2.5 mg/0.5 mL solution for nebulization 5 mg inhalation Q6H PRN (Reason: shortness of breath or wheezing) Qty: 30 0RF pantoprazole 20 mg tablet,delayed release (DR/EC) 20 mg PO BID Qty: 60 3RF estradiol 0.01 % (0.1 mg/gram) cream See Rx Instructions vaginal .COMPLEX Rx Instructions: 4 clicks vaginally twice a week/compounded cream Primary Care Provider: Cailin Gomez NP Referrals: Cailin Gomez NP, [facility] [Primary Care Provider] - Activity Restrictions/Additional Instructions: Please return to the ER should you have any further concerns or worsening of symptoms Print Language: Thai Disposition Disposition: Home, Self Care Discharge Date/Time: 02/14/24 00:27
[2024-02-14] MEDS: oxyCODONE 5 MG Tablet PO (00:25)
== END 2024-02-14 00:27 | disposition home or self-care (01) ==
PROVIDERS: Emergency Provider Emergency Medicine; PCP Registered Nurse; Visit Provider Emergency Medicine
DX: S06.0X0A Concussion without loss of consciousness, initial encounter (principal); S30.1XXA Contusion of abdominal wall, initial encounter; S50.02XA Contusion of left elbow, initial encounter; W08.XXXA Fall from other furniture, initial encounter; F32.A Depression, unspecified; F41.9 Anxiety disorder, unspecified; I10 Essential (primary) hypertension; Z79.899 Other long term (current) drug therapy
CPT/HCPCS: 70450; 99283

== ENCOUNTER 2024-02-17 18:21 | Emergency (ER) | payer MEDICAID, SELFPAY ==
[2024-02-17 18:22] VITALS: BP 119/106; PULSE 91; RESP 18; TEMP 36.6; O2SAT 98; BMI 37.5
--- NOTE | 2024-02-17 18:46 | CT_ITS ---
INDICATION: fall, ecchymosis to abd anterior. Additional history: Other, Fell On Wednesday.Rt Rib Pain,Abdominal Bruising/Pain. Hx:Htn,Kassidy EXAMINATION: CT ABDOMEN AND PELVIS with CONTRAST - CT Abdomen And Pelvis W/ Contrast Injection TECHNIQUE: Multiple axial images were obtained of the abdomen and pelvis following administration of IV contrast. Planar reconstructions obtained. A radiation dose optimization technique was used for this scan. RADIATION DOSAGE (If Supplied By Facility): CTDIvol = ( 23.39 ) mGy, DLP = ( 1320.63 ) mGycm IV Contrast dosage and agent: 100 mL Isovue-370 Oral contrast: None. COMPARISON: No pertinent previous studies for comparison.. FINDINGS: LOWER CHEST: 1. Lung bases are clear. 2. No cardiomegaly or pericardial effusion. 3. No significant coronary vascular calcifications. HEPATOBILIARY: Liver: The liver is homogeneous and shows no evidence of focal lesion. No evidence of parenchymal laceration or hemorrhage. Gallbladder: Gallbladder is surgically absent. No ductal dilatation. Pancreas: Pancreas is normal size configuration and density. No mass is noted. Spleen: The spleen is homogeneous and normal in size. . No evidence of parenchymal laceration or hemorrhage. BOWEL: Stomach: The stomach is normal in size configuration, no evidence of focal masses, abnormal calcifications. No hiatal hernia noted. Bowel: Small and large have normal configuration, no masses or bowel obstruction noted. Appendix: The visualized appendix has normal appearance.: GENITOURINARY: Adrenals: Both adrenal glands are normal in size. Kidneys: Kidneys appear symmetric in size. No calcifications are seen in the collecting system. There is no hydronephrosis or surrounding fluid. Bladder: Normal Pelvic organs: Normal appearance the uterus, there is a LEFT ovarian cyst measuring 3.2 x 2.5 cm. No follow-up required. No free fluid. RETROPERITONEUM: There is normal appearance of the abdominal aorta and inferior vena cava. LYMPH NODES: No evidence of retroperitoneal or para-aortic masses fluid collections or adenopathy. PERITONEAL CAVITY: No ascites noted ANTERIOR ABDOMINAL WALL: Normal, no hernia identified. BONES AND SOFT TISSUES: 1. No fractures identified involving the lower rib cage bilaterally particularly on the RIGHT. 2. No fractures involving the lumbar spine, sacrum, sacroiliac joints at, pelvis and hips. 3. The skeleton shows no evidence for fractures or destructive lesions. OTHER: None CT/Abdomen/Pelvis W IV Cont ONLY IMPRESSION: 1. No intracranial evidence of acute traumatic injury to the solid organs of the abdomen and pelvis including liver, pancreas, spleen, or kidneys. 2. No bowel obstruction abscess free fluid or free air. 3. No renal calcification or obstructive uropathy. 4. Status post cholecystectomy. No ductal dilatation. 5. LEFT ovarian cyst measuring 3.2 x 2.5 cm. Given patient''s age, recommend establishing follow-up pelvic ultrasound. 6. No bony fractures identified. No rib fractures identified. Incidental Findings Reference Guidance And Recommendations: Ovarian cyst: MANAGEMENT OF OVARIAN CYSTS detected on CT or MRI in asymptomatic women: Early Menopausal *Benign-appearing cyst --- <=3cm: No follow-up --- >3-5cm: Follow-up ultrasound in 6-12 months --- >5cm: Ultrasound *Probably benign cyst --- <=3cm: No follow-up --- >3cm: Ultrasound Note: The recommendations are offered as general guidance and do not necessarily apply to all patients. Abdoul Casillas, et al. (2019). Simple adnexal cysts: U consensus conference update on follow-up and reporting. Radiology, 293(2), 359?371. [email or web address] Electronically Signed: Yung Penaloza MD at 21:17 EST ,
--- NOTE | 2024-02-17 18:46 | CT_ITS ---
INDICATION: fall rib pain right EXAMINATION: CT CHEST WITHOUT CONTRAST - CT Chest W/O Contrast Injection TECHNIQUE: Helically acquired images were obtained of the chest. A radiation dose optimization technique was used for this scan. IV Contrast dosage and agent: None. COMPARISON: No previous CT of the chest for comparison. FINDINGS: LUNGS, PLEURA AND LARGE AIRWAYS: No masses, consolidation, or edema. No pleural effusion or thickening. No pneumothorax. THYROID: No thyroid lesions. HEART AND PERICARDIUM: Heart size is normal. No pericardial effusion. No coronary vascular calcifications present. VESSELS: Thoracic aorta is not dilated. MEDIASTINUM AND AYLIN: No mediastinal or hilar adenopathy. Esophagus is unremarkable. No hiatal hernia. UPPER ABDOMEN: No acute pathology. BONES: 1. No displaced rib fractures or rib deformity involving the RIGHT and the LEFT rib cage. 2. No fractures involving the sternum. There are degenerative changes however at the sternal angle. 3. Mild thoracic spondylosis without evidence of fracture or acutely acquired canal stenosis. 4. Normal appearance of the visualized shoulders and clavicles. No suspicious lytic or blastic abnormality. CT/Chest without Contrast IMPRESSION: 1. No CT evidence of acute traumatic injury to the chest, no fractures noted. 2. No pulmonary contusion consolidation effusion or pneumothorax. 3. No evidence of acute traumatic injury to the great vessels and mediastinum. Electronically Signed: Yung Penaloza MD at 20:42 EST ,
[2024-02-17] MEDS: Acetaminophen 500 MG Tablet 1000 MG PO (18:55)
[2024-02-17] MEDS: Ondansetron 4 MG/2 ML Vial IV (18:56)
--- NOTE | 2024-02-17 18:56 | ED.VIS.FALL ---
HPI HPI - Fall History of Present Illness Chief Complaint: Fall Narrative Narrative: Patient is a 48-year-old female with a past medical history of IBS, anxiety, alcohol use, asthma, depression who presents to the emergency department the chief complaint of abdominal pain and left-sided rib pain. Patient states that on Wednesday she was standing on a stool when she slipped and landed on her drawer that was pulled out. States that she was seen here on Wednesday and had a head CT however she notes that she refused her other scans at that point time. States that she has worsening abdominal pain and back pain. States that she has had increasing nausea and a few times where she felt like she was going to vomit although she did not. She states that she has a significant bruise across her abdomen. Patient denies any blood thinning medications. [facility] Medical History Left shoulder pain Osteoarthritis of right knee Right knee pain Urinary tract infection Gross hematuria Lesion of bladder Wears glasses Anxiety Alcohol use History of steroid therapy Arthritis Bladder disease Easy bruising Back pain Difficulty swallowing History of IBS Gastric reflux Non-smoker Hypertension History of nasal obstruction Nausea Bloating History of skin cancer IBS (irritable bowel syndrome) History of gastrointestinal disorder Hx of carpal tunnel syndrome Hx: UTI (urinary tract infection) Hx of seasonal allergies Cough Herpes zoster Pelvic pain Menorrhagia with regular cycle Asthma Anemia Depression Acid reflux Vitamin D deficiency Chronic diarrhea History of anxiety Home Medications ?Medication ?Instructions ?Recorded ?Last Taken ?Type albuterol sulfate 90 mcg/actuation 2 puff inhalation Q6H PRN 12/10/21 Unknown Rx aerosol inhaler shortness of breath or wheezing #8.5 grams dicyclomine 10 mg capsule 10 mg PO TID PRN abdominal pain 06/03/22 Unknown History bupropion HCl 300 mg 24 hr tablet, 300 mg PO QAM #90 tabs 06/24/22 07/03/23 Rx extended release (Wellbutrin XL) lisinopril 5 mg tablet 5 mg PO DAILY #30 tabs 08/13/22 07/03/23 Rx ondansetron 4 mg disintegrating 4 mg PO Q8H PRN nausea and 09/01/22 Unknown Rx tablet vomiting #30 tabs fluoxetine 40 mg capsule 40 mg PO DAILY #90 caps 09/21/22 07/03/23 Rx albuterol sulfate 2.5 mg/0.5 mL 5 mg inhalation Q6H PRN shortness 09/24/22 Unknown Rx solution for nebulization of breath or wheezing #30 ea fluticasone propionate 50 1 spray intranasal DAILY PRN 06/03/23 06/09/23 History mcg/actuation nasal allergy symptoms spray,suspension (Flonase Allergy Relief) meloxicam 15 mg tablet 15 mg PO DAILY Pain 06/03/23 06/09/23 History multivitamin-ferrous 1 tab PO DAILY 06/03/23 07/03/23 History fumarate-folic acid 18 mg-400 mcg tablet (Centrum Complete) clindamycin phosphate 1 % topical 1 applic topical BID 07/04/23 Unknown History gel cream base no.175 (bulk) 1 applic topical .BIW 07/04/23 Unknown History (Versatile Rich topical cream) triamcinolone acetonide 0.1 % 1 applic topical PRN 07/04/23 Unknown History topical cream pantoprazole 20 mg tablet,delayed 20 mg PO BID #60 tabs 11/08/23 Unknown Rx release estradiol 0.01% (0.1 mg/gram) See Rx Instructions vaginal 11/22/23 Unknown History vaginal cream .COMPLEX ondansetron 4 mg disintegrating 4 mg PO TID PRN nausea and 02/13/24 Unknown Rx tablet vomiting #21 tabs oxycodone 5 mg tablet 5 mg PO Q6H PRN pain 3 days #12 02/13/24 Unknown Rx tabs cyclobenzaprine 5 mg tablet 5 mg PO TID PRN muscle spasm #12 02/17/24 Unknown Rx tabs lidocaine 5 % topical patch 1 patch topical DAILY #15 ea 02/17/24 Unknown Rx (Lidoderm) Allergy/AdvReac Type Severity Reaction Status Date / Time ofloxacin Allergy Severe SWELLING Verified 02/17/24 18:22 Environmental Allergies: Allergy Intermediate Itching Verified 02/17/24 18:22 Uncoded Family History Grandmother Heart disease Colon cancer Diabetes Grandmother Diabetes Father Rheumatoid arthritis Mother Anxiety Arthritis Depression Brother Asthma Allergies Grandfather Cancer Surgical History History of esophagogastroduodenoscopy (EGD) Hx of colonoscopy S/P endometrial ablation Status post hysteroscopy History of tonsillectomy History of carpal tunnel surgery Hx of cholecystectomy Social History adopted: No household members: family housing: apartment number of children: 3 current occupational status: employed current occupation: [employer]- Patient Liason sexually active: Yes Smoking Status: Never smoker Electronic Cigarette Use: not used alcohol intake: current alcohol intake frequency: holidays/special occasions only details: social substance use type: does not use caffeine: Yes what type of physical activity do you participate in: none and walking frequency: 1-2 times per week seatbelt use: always do you feel safe at home: Yes additional social history: Single ROS ROS ED ROS Narrative constitutional: Denies any fevers, chills, headaches, lightness, dizziness Eyes: Denies change in vision double vision blurry vision Cardiovascular: Denies chest pain or palpitations Respiratory: Denies coughing wheezing shortness of breath Abdomen: Complains of abdominal pain as noted above as well as nausea denies vomiting or diarrhea : Denies any urinary symptoms Neurological: Denies numbness, weakness, tingling Musculoskeletal: Complains of left-sided rib pain Skin: Complains of bruising to her abdomen as noted above EXAM Physical Exam Narrative Exam Narrative: General: Patient lying in bed rest comfortably did not appear to be in acute distress Head: Atraumatic, normocephalic Eyes: PERRL bilaterally, EOMI bilateral, no conjunctival injection noted Neck: Soft, supple, trachea midline Cardiovascular: Regular rate and rhythm no murmurs gallops rubs are noted Respiratory: Clear to auscultation bilaterally Abdomen: Soft, diffuse tenderness palpation no rebound or guarding on exam, bowel sounds present in 4. Patient has ecchymosis noted anteriorly to her abdomen Musculoskeletal: Tenderness palpation of the left rib cage all the bony prominences palpated and joints taken through full range of motion no pain elicited Extremities: +5/5 strength noted in the bilateral upper and lower esxtremities Neurological: Patient following commands and that she was at [facility] years 2023 NIH of 0 GCS 15 Skin: Patient has ecchymosis as noted above on her abdomen anteriorly Const Vital Signs: 02/17/24 18:22 02/17/24 18:40 02/17/24 20:21 Temperature 97.8 F Temperature Source Oral Pulse Rate 91 80 Respiratory Rate 18 16 Respiratory Effort Normal Non-Labored Respiratory Depth Normal Respiratory Pattern Normal Blood Pressure 119/106 H 125/76 H Blood Pressure Mean 110 92 Pulse Ox 98 Oxygen Delivery Method Room Air Room Air MDM MDM MDM Narrative Medical decision making narrative: Patient is a 48-year-old female who presents to the emergency department with a chief complaint of left-sided rib pain and abdominal pain after a fall on Wednesday. Patient will have a workup performed here on the differential diagnose includes but not limited to rib fracture, intra-abdominal hemorrhage, pancreatitis. Once workup is obtained reviewed she will be reevaluated. Patient be given Tylenol per her request and Zofran for nausea. Patient CBC reviewed and showed no evidence of leukocytosis white blood count normal at 6.7, hemoglobin was stable at 13.9, platelet count was noted to be normal at 290. Patient sodium 135, potassium normal 3.8, creatinine normal at 0.77. Patient's AST and ALT were 17 and 13 respectively. Patient lipase normal at 38. Patient's urinalysis reviewed and showed no evidence of infection. Patient's CT chest was reviewed and showed no CT evidence of acute traumatic injury to the chest no fractures noted no evidence of pulmonary contusion consolidation or pneumothorax. No evidence of acute traumatic injury to the great vessels and mediastinum. Patient CT abdomen pelvis with IV contrast was reviewed and showed no acute intra-abdominal findings. There was a incidental finding of left ovarian cyst measuring 3.2 x 2.5 cm given the patient's age they recommended establish follow-up for pelvic ultrasound. I did give a hard copy this result to the patient advised her to call her family partner to follow-up on this she is agreeable with this plan. She was advised to return with worsening symptoms or other concerns. Patient will be given prescription for cyclobenzaprine and Lidoderm patch. All question concerns answered at bedside. Lab Data Labs: Laboratory Results - last 24 hr 02/17/24 02/17/24 19:00 19:16 WBC 6.7 RBC 4.42 Hgb 13.9 Hct 40.1 MCV 90.7 MCH 31.4 MCHC 34.7 RDW Std Deviation 39.7 RDW Coeff of Wallace 11.9 Plt Count 290 MPV 9.7 Immature Gran % (Auto) 0.100 Neut % (Auto) 56.7 Lymph % (Auto) 32.3 [place] % (Auto) 8.6 Eos % (Auto) 1.3 Baso % (Auto) 1.0 Absolute Neuts (auto) 3.8 Absolute Lymphs (auto) 2.17 Nucleated RBC % 0 Sodium 135 L Potassium 3.8 Chloride 102 Carbon Dioxide 27.0 Anion Gap 6 BUN 18 Creatinine 0.77 Estim Creat Clear Calc 118.65 Est GFR (MDRD) Af Amer 103 Est GFR (MDRD) Non-Af 85 BUN/Creatinine Ratio 23.3 H Glucose 85 Calcium 9.3 Total Bilirubin 0.30 AST 17 ALT 23 Alkaline Phosphatase 78 Total Protein 7.4 Albumin 3.8 Globulin 3.6 Albumin/Globulin Ratio 1.1 Lipase 38 Urine Color Yellow Urine Clarity Clear Urine pH 6.0 Ur Specific [employer] 1.015 Urine Protein 15 H Urine Glucose (UA) Normal Urine Ketones Negative Urine Occult Blood 25 H Urine Nitrite Negative Urine Bilirubin Negative Urine Urobilinogen Normal Ur Leukocyte Esterase Negative Urine RBC 0-5 SEEN Urine WBC 0-5 SEEN Ur Squamous Epith Cells 0-5 SEEN Urine Bacteria 1+ Urine Mucus 1+ Radiography Diagnostic Testing: Clinical Impression(s) from Imaging Studies Abdomen/Pelvis CT 02/17/24 18:46 IMPRESSION: 1. No intracranial evidence of acute traumatic injury to the solid organs of the abdomen and pelvis including liver, pancreas, spleen, or kidneys. 2. No bowel obstruction abscess free fluid or free air. 3. No renal calcification or obstructive uropathy. 4. Status post cholecystectomy. No ductal dilatation. 5. LEFT ovarian cyst measuring 3.2 x 2.5 cm. Given patient''s age, recommend establishing follow-up pelvic ultrasound. 6. No bony fractures identified. No rib fractures identified. Incidental Findings Reference Guidance And Recommendations: Ovarian cyst: MANAGEMENT OF OVARIAN CYSTS detected on CT or MRI in asymptomatic women: Early Menopausal *Benign-appearing cyst --- <=3cm: No follow-up --- >3-5cm: Follow-up ultrasound in 6-12 months --- >5cm: Ultrasound *Probably benign cyst --- <=3cm: No follow-up --- >3cm: Ultrasound Note: The recommendations are offered as general guidance and do not necessarily apply to all patients. Abdoul Casillas, et al. (2019). Simple adnexal cysts: U consensus conference update on follow-up and reporting. Radiology, 293(2), 359?371. [email or web address] Electronically Signed: Yung Penaloza MD at 21:17 EST , Chest CT 02/17/24 18:[address]: [address] evidence of acute traumatic injury to the chest, no fractures noted. 2. No pulmonary contusion consolidation effusion or pneumothorax. 3. No evidence of acute traumatic injury to the great vessels and mediastinum. Electronically Signed: Yung Penaloza MD at 20:42 EST , Discharge Plan Triage Chief Complaint: Fall ED Provider: Deuce Hernadez Dx/Rx/DC Orders Clinical Impression: Abdominal pain, Rib pain on left side Prescriptions: New cyclobenzaprine 5 mg tablet 5 mg PO TID PRN (Reason: muscle spasm) Qty: 12 0RF lidocaine [Lidoderm] 5 % adhesive patch,medicated 1 patch topical DAILY Qty: 15 0RF Rx Instructions: leave on most painful area for up to 12 hrs No Action albuterol sulfate 90 mcg/actuation HFA aerosol inhaler 2 puff inhalation Q6H PRN (Reason: shortness of breath or wheezing) Qty: 8.5 1RF dicyclomine 10 mg capsule 10 mg PO TID PRN (Reason: abdominal pain) bupropion HCl [Wellbutrin XL] 300 mg tablet extended release 24 hr 300 mg PO QAM Qty: 90 1RF triamcinolone acetonide 0.1 % cream 1 applic topical PRN clindamycin phosphate 1 % gel 1 applic topical BID Versatile Rich Cream 1 applic topical .BIW Centrum Complete 18-400 mg-mcg tablet 1 tab PO DAILY meloxicam 15 mg tablet 15 mg PO DAILY Rx Instructions: Do not take in conjunction with other NSAIDs. Tylenol is okay. fluticasone propionate [Flonase Allergy Relief] 50 mcg/actuation spray,suspension 1 spray intranasal DAILY PRN (Reason: allergy symptoms) Rx Instructions: administer into each nostril ondansetron 4 mg tablet,disintegrating 4 mg PO TID PRN (Reason: nausea and vomiting) Qty: 21 0RF oxycodone 5 mg tablet 5 mg PO Q6H PRN (Reason: pain) 3 Days Qty: 12 0RF lisinopril 5 mg tablet 5 mg PO DAILY Qty: 30 2RF ondansetron 4 mg tablet,disintegrating 4 mg PO Q8H PRN (Reason: nausea and vomiting) Qty: 30 5RF fluoxetine 40 mg capsule 40 mg PO DAILY Qty: 90 1RF albuterol sulfate 2.5 mg/0.5 mL solution for nebulization 5 mg inhalation Q6H PRN (Reason: shortness of breath or wheezing) Qty: 30 0RF pantoprazole 20 mg tablet,delayed release (DR/EC) 20 mg PO BID Qty: 60 3RF estradiol 0.01 % (0.1 mg/gram) cream See Rx Instructions vaginal .COMPLEX Rx Instructions: 4 clicks vaginally twice a week/compounded cream Primary Care Provider: Cailin Gomez NP Referrals: Cailin Gomez NP, [employer] [Primary Care Provider] - Activity Restrictions/Additional Instructions: Follow-up with your family partner on the incidental finding of the left ovarian cyst as we described here. Use prescriptions as prescribed do not operate anything under the influence of these medications. Return with worsening symptoms or other concerns. Print Language: Malay Disposition Disposition: Home, Self Care
[2024-02-17 19:17] LABS: Absolute Lymphocyte Count 2.17 X10^3/uL (0.83-4.51); Absolute Neutrophil Count 3.8 X10^3/uL (2.0-7.7); Basophil# 0.07 X10^3/uL; Eosinophil# 0.09 X10^3/uL; Eosinophils% 1.3 % (0-5); Hematocrit 40.1 % (37-47); Hemoglobin 13.9 g/dL (12.0-15.0); Lymphocyte # 2.17 X10^3/ul (0.83-4.51); Lymphocyte % 32.3 % (19-41); Mean Corp Hgb Conc 34.7 g/dL (32-36); Mean Corpuscular Hgb 31.4 pg (27.0-32.0); Mean Corpuscular Volume 90.7 fL (81-99); Mean Platelet Vol. 9.7 fl (6.2-12.0); Monocyte# 0.58 X10^3/uL; Monocyte% 8.6 % (0-10); NRBC Flagged by Analyzer 0 % (0-5); Neutrophil % 56.7 % (47-70); Platelet Count 290 K/mm3 (150-450); RBC Distribution Width CV 11.9 % (11.6-14.6); RBC Distribution Width SD 39.7 fl (35.1-43.9); Red Blood Count 4.42 M/mm3 (4.2-5.4); White Blood Count 6.7 K/mm3 (4.4-11.0)
[2024-02-17 19:34] LABS: ALB/GLOB Ratio 1.1 RATIO (0.9-2.4); AST(SGOT) 17 U/L (15-37); Alanine Aminotransfer ALT/SGPT 23 U/L (13-56); Albumin, Serum 3.8 g/dL (3.2-5.0); Alkaline Phosphatase 78 U/L (45-117); Anion Gap 6 (5-15); BUN 18 mg/dL (7-18); BUN/Creat Ratio 23.3 RATIO (10-20); Calcium,Total 9.3 mg/dL (8.5-10.1); Chloride 102 mmol/L (98-107); Creatinine, Serum 0.77 mg/dL (0.55-1.02); EST Glomerular Filtration Rate 85 mL/min (>60); Est Glom Filt Rate - Afr Amer 103 mL/min (>60); Estimated Creatinine Clearance 118.65 ml/min; Globulin 3.6 g/dL (2.2-4.2); Glucose 85 mg/dL (74-106); Lipase 38 U/L (13-75); Potassium 3.8 mmol/L (3.5-5.1); Protein, Total 7.4 g/dL (6.4-8.2); Sodium Level 135 mmol/L (136-145)
[2024-02-17 19:44] LABS: Color, Urine Yellow (Yellow); Glucose, Dipstick Normal (Normal); Ketone-Dipstick Negative (Negative); Leukocyte Esterase-Dipstick Negative /ul (Negative); Nitrite-Dipstick Negative (Negative); Occult Blood-Urine 25 /ul (Negative); Protein-Dipstick 15 mg/dl (Negative); Specific Gravity, Urine 1.015 (1.002-1.030); Urine Bilirubin Dipstick Negative (Negative); Urine Clarity Clear (Clear); Urine Urobilinogen Normal (Normal)
[2024-02-17 20:13] LABS: Bacteria 1+ /hpf (None Seen); Mucous, Urine 1+ /hpf (<or=2+); Red Blood Cells-Urine 0-5 SEEN /hpf (0-5); Squamous Epithelial Cells - UA 0-5 SEEN /hpf (5-10); White Blood Cells 0-5 SEEN /hpf (0-5)
[2024-02-17 20:21] VITALS: BP 125/76; PULSE 80; RESP 16
[2024-02-17 21:35] VITALS: BP 125/76; PULSE 80; RESP 16; TEMP 36.6; O2SAT 98
== END 2024-02-17 21:52 | disposition home or self-care (01) ==
PROVIDERS: Emergency Provider Emergency Medicine; PCP Registered Nurse; Referring Provider Emergency Medicine; Visit Provider Emergency Medicine
DX: R10.9 Unspecified abdominal pain (principal); R07.89 Other chest pain; R11.10 Vomiting, unspecified; F41.9 Anxiety disorder, unspecified; I10 Essential (primary) hypertension; N83.202 Unspecified ovarian cyst, left side; J45.909 Unspecified asthma, uncomplicated; K21.9 Gastro-esophageal reflux disease without esophagitis; W08.XXXA Fall from other furniture, initial encounter
CPT/HCPCS: 71250; 74177; 80053; 81001; 83690; 85025; 96374; 99283; Q9967; A4216; J2405

== ENCOUNTER → 2024-02-28 | Outpatient (CLI) | payer MEDICAID, SELFPAY ==
--- NOTE | 2024-02-28 17:50 | US_ITS ---
STUDY: ULTRASOUND OF THE FEMALE PELVIS - COMPLETE REASON FOR EXAM: Female, 48 years old. Left ovarian cyst LMP: No recent LMP. History of endometrial ablation. TECHNIQUE: Transabdominal and Transvaginal TECHNICAL QUALITY: Adequate. COMPARISON: Comparison is made with prior study dated September 16, 2022. FINDINGS: The uterus is anteverted and is in a midline position. The uterus measures 7.9 cm x 4.5 cm x 3.4 cm. There is a Nabothian cyst of the cervix. The endometrium measures 6 mm in thickness, and is hyperechoic. There is no demonstrated endometrial mass. Heterogeneous appearance of the myometrium. I.U.D. - The patient does not have an I.U.D. The right ovary is visualized. The right ovary measures 2.6 cm x 1.7 cm x 1.2 cm. There is no right ovarian cyst or ovarian mass. There is no visualized right adnexal mass or complex lesion. There is normal arterial and normal venous vascularity. The left ovary is visualized. The left ovary measures 4 cm x 2.7 cm x 1.4 cm. There are 2 left ovarian follicles. The larger measures 1.6 cm x 1.5 cm x 1.16. There is no visualized left adnexal mass or complex lesion. There is normal arterial and normal venous vascularity. There is no fluid in the cul-de-sac. The pre void volume of the bladder was 100 ml. US/Pelvic w/ Transvaginal IMPRESSION: Left ovarian follicles. Heterogeneous appearance of the myometrium. Electronically Signed: Shaquille Menendez MD at 14:54 EST ,
== END | disposition home or self-care (01) ==
PROVIDERS: PCP Registered Nurse; Referring Provider Obstetrics & Gynecology; Visit Provider Obstetrics & Gynecology
DX: N83.202 Unspecified ovarian cyst, left side (principal)
CPT/HCPCS: 76830; 76856

== ENCOUNTER → 2024-05-03 | Outpatient (CLI) | payer MEDICAID, SELFPAY ==
--- NOTE | 2024-05-03 10:14 | BI_ITS ---
PROCEDURE: SCRN MAMM (CAD)W/SILVIO BILAT REASON FOR EXAM: F, Age 48 y/o, routine mammographic follow-up. TECHNIQUE: Bilateral screening digital breast tomosynthesis with 2D and 3D images. Computer aided detection. COMPARISON: Prior exam(s) dating back to prior study dated April 30, 2023.. FINDINGS: The breasts are heterogeneously dense which may obscure small masses. Stable fat containing axillary lymph nodes. No suspicious masses, areas of developing architectural distortion, or suspicious calcifications. BI/SCRN MAMM (CAD)W/SILVIO BILAT IMPRESSION: BI-RADS 2: BENIGN. RECOMMEND ANNUAL MAMMOGRAPHIC SCREENING. Follow-up code: Routine Follow-up The patient will be notified of the results by letter. Reading Location: [id number]
== END | disposition home or self-care (01) ==
LOC: OPBI 10:12
PROVIDERS: PCP Registered Nurse; Referring Provider Registered Nurse; Visit Provider Registered Nurse
DX: Z12.31 Encounter for screening mammogram for malignant neoplasm of breast (principal)
CPT/HCPCS: 77063; 77067

== ENCOUNTER → 2024-08-30 | Outpatient (CLI) | payer MEDICAID, SELFPAY ==
--- OUTSIDE RECORDS SUMMARY | 2024-08-30 20:40 | XMS RPT_ITS | CCD ---
Author Organization [facility] Care Team Providers Care Slicer Machine Operator Name Role Phone Ashok Siu MD Primary Care Provider Dr. Ashok Siu Primary Care Provider Dr. Ashok Siu Referring Provider JEANETH Saunders Attending Provider Dr. Geeta Hickman Attending Provider Ashok Siu MD Primary Care Provider Dr. Ashok Siu Primary Care Provider Dr. Ashok Siu Referring Provider Dr. Geeta Hickman Primary Care Provider Dr. Geeta Hickman Referring Provider JEANETH Ojeda Attending Provider Dr. Ashok Siu Primary Care Provider Dr. Ashok Siu Referring Provider Dr. Geeta Hickman Attending Provider Dr. Geeta Hickman Primary Care Provider Dr. Geeta Hickman Referring Provider JEANETH Ojeda Attending Provider Ashok Siu MD Primary Care Provider Ashok Siu MD Primary Care Provider Dr. Geeta Hickman Primary Care Provider Dr. Geeta Hickman Attending Provider [phone] Dr. Geeta Hickman Referring Provider [phone] JEANETH Ojeda Attending Provider [phone] Dr. Santana Saha Attending Provider [phone] Geeta Hickman Primary Care Provider Dr. Geeta Hickman Attending Provider [phone] Dr. Geeta Hickman Referring Provider 1(330) Dr. Danial Marshall Attending Provider Dr. Geeta Hickman Primary Care Provider Dr. Geeta Hickman Attending Provider [phone]) Dr. Geeta Hickman Referring Provider 1(330) Dr. Santana Saha Attending Provider [phone] Danial Marshall Attending Provider Michelle PHOTO PRINTER, PHOTO PRINTER-C Jacqueline Attending Provider [phone] JEANETH Gabriel Attending Provider Geeta Hickman MD Primary Care Provider Unava david Cline PHOTO PRINTER, PHOTO PRINTER-C Sveta Attending Provider [phone] Marilu PHOTO PRINTER, PHOTO PRINTER-C Grisel Arriaga Attending Provider [phone] Dr. Geeta Hickman Primary Care Provider Dr. Geeta Hickman Referring Provider 1(330) Dr. Geeta Hickman Attending Provider 1(330) Dr. Chrystal Conteh Attending Provider [phone] Dr. Geeta Hickman Primary Care Provider Dr. Geeta Hickman Referring Provider [phone] Michelle PHOTO PRINTER, PHOTO PRINTER-C Jacqueline Attending Provider [phone] Sherron ELLISON, Ashok Mitchell Primary Care Provider Davin ELLISON, Naga Lay Primary Care Provider Jason APPLICATION SUPPORT INTERN - CHIEF CATALYST OPERATOR, Ashley S Primary Care Provider Naga Jin MD Primary Care Provider Jason APPLICATION SUPPORT INTERN - CHIEF CATALYST OPERATOR, Ashley S Primary Care Provider Dr. Geeta Hickman Referring Provider Elijah, Dr. Starr Attending Provider Jason PHOTO PRINTER, PHOTO PRINTER-C Ashley Primary Care Provider Dr. Geeta Hickman Referring Provider Elijah, Dr. Starr Attending Provider Jason PHOTO PRINTER, PHOTO PRINTER-C Ashley Primary Care Provider Jason LINDSEY, Ashley Primary Care Provider Dr. Mickey Gutiérrez Attending Provider [phone] Dr. Mickey Gutiérrez Referring Provider TEJINDER Duff Attending Provider Adina ELLISON, Cornell Unavailable Vick ELLISON, Geeta Rogers Primary Care Provider [phone] Sherron ELLISON, Ashok Mitchell Primary Care Provider [phone] MARIA ELENA CARVAJAL Attending Unavailable JASON, ASHLEY LOIDA Primary Care Unavailable FLETCHER NANCYE, FALLON Referring Unavailab le JASON, ASHLEY LOIDA Primary Care Unavailable FLETCHER PIPPA, FALLON Attending Unavailab le JASON, ASHLEY LOIDA Primary Care Unavailable YOJANA LARES Attending Unavaila ble JASON, ASHLEY LOIDA Primary Care Unavailable MARIA ELENA CARVAJAL Referring Unavailable JASON, ASHLEY LOIDA Primary Care Unavailable Jason CHIEF CATALYST OPERATOR, Ashley Loida Primary Care Provider NAGA JIN Primary Care Unavailable ASHLEY GOMEZ Attending Unavailable NAGA JIN Primary Care Unavailable ASHLEY GOMEZ S Attending Unavailable DAVIN, NAGA Primary Care Unavailable ASHLEY GOMEZ S Attending Unavailable NAGA JIN Primary Care Unavailable ASHLEY GOMEZ Attending Unavailable ASHLEY GOMEZ S Attending Unavailable DAVIN, NAGA Primary Care Unavailable DAVIN, NAGA Primary Care Unavailable ASHLEY GOMEZ S Attending Unavailable NAGA JIN Primary Care Unavailable JASONYONYY S Attending Unavailable [facility] Primary Care Unavailable JASONYONYY S Attending Unavailable LOWE, CHRISTA Attending Unavailable JASON, ASHLEY S Referring Unavailable [facility] Primary Care Unavailable ABDOUL, CACHORRO A Referring Unavailable DAVIN, NAGA Primary Care Unavailable LOWE, CHRISTA Referring Unavailable LOWE, CHRISTA Attending Unavailable [facility] Primary Care Unavailable LOWE, CHRISTA Attending [facility] Unavailable LOWER, HALINA Referring Unavailable ABDOUL, CACHORRO A Referring Unavailable LOWE, CHRISTA Attending Unavailable [facility], NAGA Primary Care Unavailable DAVIN, NAGA Primary Care Unavailable ABDOUL, CACHORRO A Attending Unavailable Jason PHOTO PRINTER, Ashlye Referring Unavailable Friend, Tanna Attending Unavailable Jason PHOTO PRINTER, [facility] Care Unavailable Jason PHOTO PRINTER, [facility] Care Unavailable Deuce Hernadez Attending Unavailable Deuce Hernadez Referring Unavailable Jason PHOTO PRINTER, [facility] Care Unavailable Barkman, Denise Referring Unavailable Waldo Duffmen Attending Unavailable Jason PHOTO PRINTER, Ashley Referring Unavailable Friend, Tanna Attending Unavailable Jason PHOTO PRINTER, [place] Primary Care Unavailable Jason PHOTO PRINTER, [place] Primary Care Unavailable Jason PHOTO PRINTER, Ashley Referring Unavailable MaribellmanWaldoDenise Attending Unavailable Jason PHOTO PRINTER, [place] Primary Care Unavailable Jason PHOTO PRINTER, [place] Referring Unavailable Julio C Goyal Attending Unavailable Jason PHOTO PRINTER, [facility] Care Unavailable Pierre, Hiram Attending Unavailable Jason PHOTO PRINTER, [place] Primary Care Unavailable Pierre, Hiram Attending Unavailable Jason PHOTO PRINTER, [place] Primary Care Unavailable Jason PHOTO PRINTER, Ashley Referring Unavailable Friend, Tanna Attending Unavailable Jason PHOTO PRINTER, [facility] Care Unavailable Jason PHOTO PRINTER, Ashley Referring Unavailable Jyotsna Julio C Attending Unavailable Jason PHOTO PRINTER, [place] Primary Care Unavailable Jason PHOTO PRINTER, Ashley Referring Unavailable Friend, Tanna Attending Unavailable Jason PHOTO PRINTER, [place] Primary Care Unavailable Jason PHOTO PRINTER, [place] Referring Unavailable Dina Ramos Attending Unavailable Jason PHOTO PRINTER, [place] Primary Care Unavailable Pierre, Hiram Attending Unavailable Jason PHOTO PRINTER, [place] Primary Care Unavailable Vande Velde, Chrystal Referring Unavailabl e Vandgadiel Og, Chrystal Attending Unavailabl e Jason PHOTO PRINTER, Ashley Attending Unavailable Jason PHOTO PRINTER, [place] Primary Care Unavailable Jason PHOTO PRINTER, Ashley Referring Unavailable Jason PHOTO PRINTER, [place] Primary Care Unavailable Vande Velde, Chrystal Referring Unavailabl e Vande Velde, Chrystal Attending Unavailabl e Jason PHOTO PRINTER, Ashley Primary Care Unavailable [facility] Attending Unavailable Allergies Allergy Classification Reported Allergen(s) Allergy Type Date of Onset Reaction(s) Facility Quinolones (antibiotic) (1 source) Ofloxacin Drug Allergy 10-30-19 23 Swelling [facility] (20 sources) Ofloxacin; Translations: [OFLOXACIN] Drug Allergy 01-28-20 19 Swelling [facility] Work Phone: (6 sources) Environmental Allergies: Uncoded; Translations: [Environmental Allergies: Uncoded] Allergy to substance 06-03-19 24 Itching [facility] (20 sources) Seasonal allergy Environmental allergy 06-03-19 24 Itching [facility] (7 sources) Seasonal allergy; Translations: [SEASONAL ALLERGIES] Propensity to adverse reactions 07-08-19 24 Cough, Shortness of Breath [facility] (1 source) Ofloxacin Drug Allergy 08-31-19 25 [facility] Repository Medications Current Medications Medication Drug Class(es) Dates Sig (Normalized) Sig (Original) acetaminophen 325 mg / oxyCODONE hydrochloride 5 mg oral tablet (20 sources) Opioid Agonist Start: 07-05-2023 End: 07-14-2023 take 1 tablet by mouth every eight hours as needed for pain oxyCODONE-acetami nophen (PERCOCET) 5-325 mg tablet TAKE 1 TABLET BY MOUTH EVERY 8 HOURS NEEDED FOR PAIN FOR 3 DAYS 07/05/2023 Active Start: 06-10-2023 End: 07-04-2023 take 1 tablet by mouth every eight hours Oxycodone-Acetaminophen (Percocet) 5-325 mg tablet Discontinued 1 TABLET PO Q8H 3 June 10, 2023 July 04, 2023 10:28am Start: 11-28-2019 End: 12-05-2019 take 1 tablet by mouth every six hours as needed Oxycodone-Acetaminophen Discontinued 1 - 2 TABLET PO EVERY 6 HOURS NEEDED 11 02November 28, 2019 December 05, 2019 12:02am Comment on above: TAKE 1 TABLET BY MONET TH EVERY 8 HOURS NEEDED FOR PAIN FOR 3 DAYS [id number] 200 actuat albuterol 0.09 mg/actuat metered dose inhaler (20 sources) beta2-Adrenergic Agonist Start: 4 End: 4 take 2 puff(s) by inhalation every six hours as needed for wheezing albuterol 108 (90 Base) MCG/ACT inhaler Indications: Mild intermittent asthma without complication Inhale 2 puffs every 6 hours as needed for wheezing. 18 g 2 03/09/2024 Active Start: 09-24-2022 take 5 mg by inhalat ion every six hours Albuterol Sulfate Active 5 MG INHALATION EVERY 6 HOURS September 24, 2022 12:00am Start: 06-16-2022 End: 08-20-2022 take 2.5 mg by inhalation every four hours as needed for wheezing Albuterol Sulfate Discontinued 2.5 MG INHALATION EVERY 4 HOURS NEEDED June 24, 2022 10:31am August 20, 2022 1:35pm Use q4 hours and PRN for wheezing Start: 10-29-2021 End: 12-10-2021 take 1 puff(s) by inhalation every six hours Albuterol Sulfate Active 2 PUFF INHALATION EVERY 6 HOURS 8.5 December 10, 2021 10:45am Start: 03-01-2014 take 2 puff(s) by in halation every four hours as needed for wheezing albuterol HFA (PROAIR HFA) 90 mcg/actuation inhaler Indications: Wheezing Inhale 2 Puffs as instructed every 4 hours as needed for Wheezing/Shortness of Breath. 3 Inhaler 3 03/01/2014 Active albuterol (2.5 M G/3ML) 0.083% nebulizer solution Indications: Mild intermittent asthma without complication Take by nebulization every 6 hours as needed for wheezing. Active take 2 puff(s) by in halation every six hours as needed for wheezing albuterol 108 (90 Base) MCG/ACT inhaler Indications: Mild intermittent asthma without complication Inhale 2 puffs every 6 hours as needed for wheezing. 0 Active Comment on above: Inhale 2 Puffs as in structed every 4 hours as needed for Wheezing/Shortness of Breath. ascorbic acid 500 mg chewable tablet (20 sources) Vitamin C take 1 tablet by mouth once daily Ascorbic Acid (vitamin C) 500 MG tablet Take 500 mg by mouth daily. Active Blood Pressure Monitor (17 sources) Start: Blood Pressure Monitor Active 0 .Route 1 December 09, 2021 11:00pm As directed Start: 12-10-2021 Blood Pressure Monitor Active 0 .Route 1 December 10, 2021 12:00am As directed 24 hr buPROPion hydrochloride 300 mg extended release oral tablet (20 sources) Aminoketone Start: 2023 End: 07-21-2024 take 1 tablet by mouth once daily buPROPion XL (Wellbutrin XL) 300 MG 24 hr tablet Indications: Depressive disorder , Anxiety Take 1 tablet (300 mg) by mouth daily. Do not crush, chew, or split. 90 tablet 1 07/21/2024 Active Start: 11-24-2018 End: 12-30-2022 take 1 tablet by mouth once daily buPROPion XL (WELLBUTRIN XL) 300 mg 24 hr tablet Take 1 tablet by mouth once daily. 2 11/24/2018 Active End: 10-16-2020 BUPROPION HCL (WELLBUTRIN XL ORAL) Take by mouth. 10/16/2020 Discontinued Comment on above: Take 1 tablet by [facility] once daily. cephalexin 500 mg oral capsule (20 sources) Cephalosporin Antibacterial Start: take 1 capsule by mouth twice daily cephALEXin (KEFLEX) 500 mg capsule Take 500 mg by mouth two times a day. 07/05/2023 Active Start: 07-05-2023 End: 07-14-2023 take 500 mg by mouth every twelve hours Cephalexin Discontinued 500 MG PO EVERY 12 HOURS 6 July 05, 2023 12:00am July 14, 2023 9:47am Start: 04-07-2023 take 1 capsule by [facility] once daily cephalexin (Keflex) 250 MG capsule TAKE 1 CAPSULE BY MOUTH ONCE DAILY AFTER INTERCOURSE 04/07/2023 Active Start: 04-07-2023 take 1 capsule by [facility] three times daily cephalexin (Keflex) 500 MG capsule Take 500 mg by mouth 3 times daily. 04/07/2023 Active Start: 06-09-2022 End: 07-10-2022 take 1 capsule by mouth once daily at bedtime cephALEXin (KEFLEX) 250 mg capsule Take 250 mg by mouth daily at bedtime. 06/09/2022 Active Start: 11-02-2019 End: 11-15-2019 take 500 mg by mouth three times daily Cephalexin Discontinued 500 MG PO THREE TIMES A DAY November 02, 2019 12:00am November 15, 2019 9:55am Comment on above: Take 250 mg by mouth daily at bedtime. Take 500 mg by mouth two times a day. Cholestyramine, Bulk, powd (20 sources) Start: 11-27-2020 Cholestyramine, Bulk, powd Indications: Loose stools 4 g twice daily. 1000 g 1 11/27/2020 Active Comment on above: 4 g twice daily. clindamycin 0.01 mg/mg topical gel (10 sources) Lincosamide Antibacterial Start: 03-01-2024 clindamycin 1 % gel Apply 1-2 times a day to the affected areas on the face, thighs and back as needed for flares. 03/01/2024 Active Start: 07-04-2023 Clindamycin Ph osphate Active 1 APPLIC TOPICAL TWICE A DAY July 04, 2023 12:00am Cream Base No.175 (Bulk) (1 source) Start: 07-04-2023 Cream Base No.175 (Bulk) Active 1 APPLIC TOPICAL .BIW July 04, 2023 12:00am Cream Base No.175 (Bulk) (Versatile Rich) cream (3 sources) Start: 07-04-2023 Cream Base No.175 (Bulk) (Versatile Rich) cream Active 1 APPLIC TOPICAL .BIW July 04, 2023 12:00am cyclobenzaprine hydrochloride 5 mg oral tablet (6 sources) Muscle Relaxant Start: 04-21-2024 take 1 tablet by mouth three times daily as needed cyclobenzaprine (Flexeril) 5 MG tablet Take 5 mg by mouth 3 times daily as needed. 04/21/2024 Active dicyclomine hydrochloride 10 mg oral capsule (20 sources) Anticholinergic Start: 12-31-2020 End: 05-26-2024 take 1 capsule by mouth three times daily dicyclomine (Bentyl) 10 MG capsule Indications: Irritable bowel syndrome with diarrhea Take 1 capsule (10 mg) by mouth 3 times daily. 90 capsule 5 05/26/2024 Active Start: 04-04-2018 End: 01-02-2019 Dicyclomine Discontinued 20 MG PO .4 times per day April 04, 2018 1:00am January 02, 2019 9:06am Comment on above: Take 1 capsule by [facility] three times daily as needed (abdominal pain). doxycycline hyclate 100 mg oral tablet (9 sources) Tetracycline-class Drug Start: take 1 tablet by mouth every twelve hours doxycycline (VIBRA-TABS) 100 mg tablet Take 1 tablet by mouth every 12 hours. 05/12/2023 Active Start: 06-15-2022 End: 06-22-2022 take 1 tablet by mouth twice daily doxycycline (VIBRA-TABS) 100 mg tablet Indications: Acute cough , SOB (shortness of breath) Take 1 tablet by mouth twice daily for 7 days. 20 tablet 0 06/15/2022 06/22/2022 Comment on above: Take 1 tablet by monet th twice daily for 7 days. Take 1 tablet by monet th every 12 hours. fluconazole 200 mg oral tablet (2 sources) Azole Antifungal Start: End: take 1 tablet by mouth once daily fluconazole (DIFLUCAN) 200 mg tablet Take 1 tablet by mouth once daily for 14 days. 14 tablet 0 07/16/2023 07/30/2023 Active Start: 11-10-2014 End: 10-16-2020 fluconazole (DIFLUCAN) 150 m g tablet Take once for yeast infection 1 tablet 0 11/10/2014 10/16/2020 Discontinued Comment on above: Take 1 tablet by monet th once daily for 14 days. FLUoxetine 20 mg oral capsule (20 sources) Serotonin Reuptake Inhibitor Start: 02-25-2024 take 1 capsule by mouth once daily FLUoxetine (PROzac) 20 MG capsule Indications: Depressive disorder , Anxiety Take 1 capsule (20 mg) by mouth daily. Take with 40 mg dose for a total of 60 mg 90 capsule 1 02/25/2024 Active Start: 10-11-2023 End: 02-25-2024 take 1 capsule by mouth once daily FLUoxetine (PROzac) 40 MG capsule Indications: Depressive disorder , Anxiety Take 1 capsule (40 mg) by mouth daily. Take with 20 mg for a total of 60 mg 90 capsule 1 02/25/2024 Active Start: 10-11-2023 End: 02-09-2024 take 1 capsule by mouth once daily FLUoxetine (PROzac) 20 MG capsule Indications: Depressive disorder , Anxiety Take 1 capsule (20 mg) by mouth daily. Take with 40 mg dose for a total of 60 mg 90 capsule 1 10/11/2023 02/09/2024 Discontinued (Dose adjustment) Start: 09-15-2023 take 1 capsule by [facility] once daily FLUoxetine (PROzac) 20 MG capsule Indications: Depressive disorder , Anxiety Take 1 capsule (20 mg) by mouth daily. Take with 40 mg dose for a total of 60 mg 09/15/2023 Active Start: 08-27-2023 End: 09-15-2023 take 2 capsules by mouth once daily FLUoxetine (PROzac) 40 MG capsule Indications: Depressive disorder , Anxiety Take 2 capsules (80 mg) by mouth daily. 180 capsule 1 08/27/2023 09/15/2023 Discontinued Start: 08-13-2023 End: 08-27-2023 take 1 capsule by mouth once daily FLUoxetine (PROzac) 20 MG capsule Indications: Depressive disorder , Anxiety Take 1 capsule (20 mg) by mouth daily. Take with 40 mg dose for a total of 60 mg 30 capsule 0 08/13/2023 08/27/2023 Discontinued (Dose adjustment) Start: 12-10-2021 End: 08-27-2023 take 1 capsule by mouth once daily FLUoxetine (PROzac) 40 MG capsule Indications: Depressive disorder , Anxiety Take 1 capsule (40 mg) by mouth daily. Take with 20 mg for a total of 60 mg 09/15/2023 Active Start: 10-29-2021 End: 12-10-2021 take 20 mg by mouth once daily Fluoxetine Discontinued 20 MG PO DAILY October 29, 2021 3:40pm December 10, 2021 10:56am Start: 07-04-2020 End: 10-29-2021 take 1 tablet by mouth once daily FLUoxetine 10 mg tablet Take 10 mg by mouth once daily. 07/04/2020 Active Start: 05-08-2020 End: 10-29-2021 Fluoxetine Discontinued 5 MG PO May 08, 2020 1:00am October 29, 2021 3:05pm Start: 03-15-2018 End: 01-02-2019 take 1 capsule by mouth once daily Fluoxetine (Prozac) 20 mg capsule Discontinued 20 MG PO DAILY March 15, 2018 1:00am January 02, 2019 9:05am Comment on above: Take 10 mg by mouth once daily. Take 40 mg by mouth once daily. fluticasone propionate 0.05 mg/actuat metered dose nasal spray (20 sources) Corticosteroid Start: 5 take 2 spray(s) nasal route once daily fluticasone (Flonase) 50 MCG/ACT nasal spray Administer 2 sprays into each nostril Nightly. Shake gently. Before first use, prime pump. After use, clean tip and replace cap. 16 g 2 05/28/2024 Active Start: 12-24-2021 End: 06-03-2023 take 1 spray(s) nasal route once daily Fluticasone Propionate (Flonase Allergy Relief) 50 mcg/actuation spray,suspension Discontinued 1 SPRAY INTRANASAL DAILY September 01, 2022 2:05pm June 03, 2023 9:28am administer into each nostril take 1 spray(s) nasa l route once daily fluticasone (Flonase) 50 MCG/ACT nasal spray Administer 1 spray into each nostril daily. Shake gently. Before first use, prime pump. After use, clean tip and replace cap. Active take 1 spray(s) nasa l route once daily fluticasone (FLONASE) 50 mcg/actuation nasal spray Use 1 Needles in each nostril once daily. Active Comment on above: Use 1 Needles in each nostril once daily. gabapentin 100 mg oral capsule (1 source) Anti-epileptic Agent Start: 5 take 1 capsule by mouth once daily gabapentin (Neurontin) 100 MG capsule Indications: Neuropathy of right foot Take 1 capsule (100 mg) by mouth Nightly. 30 capsule 07/21/2024 Active lisinopril 5 mg oral tablet (20 sources) Angiotensin Converting Enzyme Inhibitor Start: 5 take 1 tablet by mouth once daily lisinopril 5 MG tablet Indications: Primary hypertension Take 1 tablet (5 mg) by mouth daily. 90 tablet 1 05/22/2024 Active Start: 12-08-2023 take 1 tablet by monet th once daily lisinopril 5 MG tablet Indications: Primary hypertension Take 1 tablet (5 mg) by mouth daily. 90 tablet 1 12/08/2023 Active Start: 12-24-2021 End: 11-22-2022 lisinopril (ZESTRIL, PRINIVI L) 5 mg tablet Take by mouth. 12/24/2021 Active Comment on above: Take by mouth. meloxicam 15 mg oral tablet (20 sources) Nonsteroidal Anti-inflammatory Drug Start: 4 End: 4 take 1 tablet by mouth once daily meloxicam (Mobic) 15 MG tablet Indications: Osteoarthritis of both knees, unspecified osteoarthritis type TAKE 1 TABLET BY MOUTH DAILY 90 tablet 1 02/28/2024 Active Start: 12-18-2022 take 1 tablet by monet th once daily meloxicam (Mobic) 15 MG tablet Indications: Osteoarthritis of both knees, unspecified osteoarthritis type Take 1 tablet (15 mg) by mouth daily. 30 tablet 2 12/18/2022 Active Start: 04-01-2022 End: 06-03-2023 take 15 mg by mouth every other day Meloxicam Discontinued 15 MG PO .every other day September 01, 2022 2:06pm June 03, 2023 9:28am Do not take in conjunction with other NSAIDs. Tylenol is okay. Start: 11-05-2021 End: 04-01-2022 take 15 mg by mouth once daily Meloxicam Discontinued 15 MG PO DAILY December 05, 2021 9:15am January 02, 2022 10:33am Do not take in conjunction with other NSAIDs. Tylenol is okay. Comment on above: Take 15 mg by mouth once daily. metoclopramide 5 mg oral tablet (3 sources) Dopamine-2 Receptor Antagonist Start: 12-12-19 23 take 2 tablets by mouth once daily at mealtime Metoclopramide Hcl (Reglan) 5 mg tablet Active 2.5 MG PO TWICE A DAY December 10, 2022 11:00pm take prior to two largest meals of the day Pwelszob-Xbu-Wyqd-Fa-V it K-Lut (Centrum Silver Women) 8 mg iron-400 mcg-50 mcg tablet (3 sources) Start: 11-07-19 23 take 1 tablet by mouth once daily Ffoouwfw-Fle-Vlhf-Fa- Vit K-Lut (Centrum Silver Women) 8 mg iron-400 mcg-50 mcg tablet Active 1 TABLET PO DAILY November 05, 2022 11:00pm Qwujlqhcdudg-Xtkf-Wdhk c Acid (Centrum Complete) 18-400 mg-mcg tablet (5 sources) Start: 06-03-19 24 take 1 tablet by mouth once daily Iitnrqiorhoq-Bqpv-Usu ic Acid (Centrum Complete) 18-400 mg-mcg tablet Active 1 TABLET PO DAILY June 03, 2023 1:00am zfkzlrvcbeof-svqd-yvcc rals-folic acid (Centrum) chewable tablet (20 sources) multivitamin-iro n-min erals-folic acid (Centrum) chewable tablet Chew 1 tablet daily. Active multivitamin-iro p-whjlwnmj-jstgg acid (Centrum) chewable tablet Chew 1 tablet daily. 0 Active nitrofurantoin, macrocrystals 25 mg / nitrofurantoin, monohydrate 75 mg oral capsule (1 source) Nitrofuran Antibacterial Start: 01-05-2022 End: 01-10-2022 take 1 capsule by mouth twice daily nitrofurantoin monohydrate and macrocrystal (MACROBID) 100 mg capsule Take 1 capsule by mouth twice daily for 5 days. 10 capsule 0 01/05/2022 01/10/2022 Active Comment on above: Take 1 capsule by mo [facility] twice daily for 5 days. pantoprazole 40 mg delayed release oral tablet (20 sources) Proton Pump Inhibitor Start: 04-15-2023 take 1 tablet by mouth once pantoprazole DR (PROTONIX) 40 mg tablet Take 1 tablet by mouth every afternoon. 04/15/2023 Active Start: 09-30-2022 End: 01-19-2023 take 1 tablet by mouth once pantoprazole DR (PROTONIX) 40 mg tablet Take 1 tablet by mouth every afternoon. 0 04/15/2023 Active Start: 08-04-2022 End: 09-30-2022 take 40 mg by mouth twice daily Pantoprazole Discontinued 40 MG PO TWICE A DAY 180 August 04, 2022 12:00am September 30, 2022 10:14am pantoprazole (Pr otoNix) 40 MG EC tablet Indications: Gastroesophageal reflux disease, unspecified whether esophagitis present Take 20 mg by mouth 2 times daily. Do not crush, chew, or split. Active Comment on above: Take 1 tablet by [facility] every afternoon. phenazopyridine hydrochloride 200 mg oral tablet (20 sources) Start: 07-05-2023 End: 07-14-2023 phenazopyridine (PYRIDIUM) 200 mg tablet 07/05/2023 Active Start: 12-21-2019 End: 05-08-2020 take 1 tablet by mouth three times daily Phenazopyridine (Pyridium) 100 mg tablet Discontinued 100 MG PO THREE TIMES A DAY 6 December 21, 2019 12:00am May 08, 2020 4:54pm phentermine hydrochloride 37.5 mg oral tablet (13 sources) Sympathomimetic Amine Anorectic Start: 05-03-2023 End: 07-04-2023 take 1 tablet by mouth once daily before breakfast Phentermine HCl 37.5 mg tablet Take 1 tablet (37.5 mg) by mouth every morning (before breakfast). BMI 36.49 05/03/2023 Active Comment on above: Take 1 tablet (37.5 mg) by mouth every morning (before breakfast). BMI 36.49 sucralfate 100 mg/ml oral suspension (6 sources) Aluminum Complex Start: 05-02-2024 take 1 g by mouth twice daily sucralfate (Carafate) 1 GM/10ML suspension Take 1 g by mouth 2 times daily. 05/02/2024 Active triamcinolone acetonide 1 mg/ml topical cream (4 sources) Corticosteroid Start: 07-04-2023 Triamcinolone Acetonide Active 1 APPLIC TOPICAL NEEDED July 04, 2023 12:00am trolamine salicylate 100 mg/ml topical cream (20 sources) trolamine salicylate (Aspercreme) 10 % cream Apply topically if needed for muscle/joint pain. Active Completed/Discontinued Medications Medication Drug Class(es) Dates Sig (Normalized) Sig (Original) acyclovir 800 mg oral tablet (20 sources) Herpesvirus Nucleoside Analog DNA Polymerase Inhibitor, Herpes Simplex Virus Nucleoside Analog DNA Polymerase Inhibitor, Herpes Zoster Virus Nucleoside Analog DNA Polymerase Inhibitor Start: 07-28-2020 End: 08-04-2020 Acyclovir Discontinued 800 MG PO Q4H 35 7 July 28, 2020 12:00am August 04, 2020 12:01am while awake; give 5 doses in 24 hours amoxicillin 500 mg oral capsule (20 sources) Penicillin-class Antibacterial Start: 05-08-2020 End: 05-18-2020 take 1000 mg by mouth twice daily Amoxicillin Discontinued 1000 MG PO TWICE A DAY 40 10 May 08, 2020 1:00am May 18, 2020 1:03am azelastine hydrochloride 0.137 mg/actuat / fluticasone propionate 0.05 mg/actuat metered dose nasal spray (12 sources) Corticosteroid, Histamine-1 Receptor Antagonist Start: 07-10-2022 End: 08-20-2022 take 1 spray(s) nasal route twice daily Azelastine-Flutica sone Discontinued 1 SPRAY INTRANASAL TWICE A DAY July 10, 2022 12:00am August 20, 2022 1:35pm administer into each nostril azithromycin 250 mg oral tablet (20 sources) Macrolide Antimicrobial Start: 09-20-2023 End: 11-10-2023 azithromycin (Zithromax) 250 MG tablet Take 2 tabs (500 mg) on day 1, and take 1 tab (250 mg) on days 2 through 5 6 tablet 09/20/2023 11/10/2023 Discontinued (Therapy completed) Start: 09-07-2021 End: 10-29-2021 Azithromycin (Zithromax Z-Pa k) 250 mg tablet Discontinued 0 PO .COMPLEX 6 September 07, 2021 12:00am October 29, 2021 3:03pm For 250 mg dose pack: take 500 mg today (day 1), then 250 mg for 4 days (days 2-5) PO benzonatate 200 mg oral capsule (20 sources) Non-narcotic Antitussive Start: 07-10-2022 End: 08-20-2022 take 200 mg by mouth three times daily Benzonatate Discontinued 200 MG PO THREE TIMES A DAY July 10, 2022 12:00am August 20, 2022 1:35pm Start: 06-15-2022 take 1-2 capsules by mouth three times daily as needed benzonatate (TESSALON PERLES) 100 mg capsule Indications: Acute cough , SOB (shortness of breath) Take 1-2 capsules by mouth three times daily as needed. 30 capsule 06/15/2022 Active Start: 03-21-2017 End: 10-16-2020 take 1 capsule by mouth three times daily as needed Benzonatate 200 mg capsule Indications: URI, acute Take 1 capsule by mouth three times daily as needed. 30 capsule 03/21/2017 10/16/2020 Discontinued Comment on above: Take 1-2 capsules by mouth three times daily as needed. 12 hr chlorpheniramine polistirex 1.6 mg/ml / HYDROcodone polistirex 2 mg/ml extended release suspension (1 source) Histamine-1 Receptor Antagonist, Opioid Agonist Start: 03-31-19 16 End: 10-17-19 take 5 mL by mouth every twelve hours as needed Chlorpheniramine-HYDROc odone (TUSSIONEX) 10-8 mg/5 mL suspension Take 5 mL by mouth every 12 hours as needed for Cough. 180 mL 0 03/31/2015 10/16/2020 Discontinued cholecalciferol 0.05 mg oral capsule (20 sources) Vitamin D Start: 04-04-19 End: 05-28-19 take 2000 [IU] by mouth once daily Cholecalciferol (Vitamin D3) Discontinued 2000 UNIT PO DAILY April 04, 2018 1:00am May 28, 2019 10:38am take 1 tablet by mouth once vignesh y cholecalciferol (Vitamin D-3) 50 MCG (2000 UT) tablet Take 2,000 Units by mouth daily. Active codeine phosphate 2 mg/ml / guaiFENesin 20 mg/ml oral solution (12 sources) Opioid Agonist Start: 06-24-2022 End: 08-20-2022 take 1 mL by mouth every six hours Codeine-Guaifenesin Discontinued 5 ML PO EVERY 6 HOURS 118 June 24, 2022 12:00am August 20, 2022 1:35pm D-Mannose (16 sources) Start: 05-20-2022 End: 06-03-2022 take 1 mg by mouth once D-Mannose Discontinued MG PO May 20, 2022 12:00am June 03, 2022 3:26pm Start: 05-20-2022 End: 06-03-2022 take 1 mg by mouth once D-Mannose Discontinued MG PO May 20, 2022 1:00am June 03, 2022 4:26pm Start: 05-20-2022 take 1 mg by mouth once D-Hunter ose Active MG PO May 20, 2022 12:00am Desogestrel-Ethinyl Estradiol (20 sources) Progestin, Estrogen Start: 04-06-2019 End: 10-11-2019 Desogestrel-Ethinyl Estradiol (Apri) 0.15-0.03 mg tablet Discontinued 1 TABLET PO daily 84 April 06, 2019 11:48am October 11, 2019 11:25am Start: 04-06-2019 End: 10-11-2019 Desogestrel-Ethinyl Estradio l (Apri) 0.15-0.03 mg tablet Discontinued 1 TABLET PO daily April 06, 2019 12:00am October 11, 2019 10:25am Start: 04-06-2019 End: 10-11-2019 Desogestrel-Ethinyl Estradio l (Apri) 0.15-0.03 mg tablet Discontinued 1 TABLET PO daily April 06, 2019 1:00am October 11, 2019 11:25am Diclofenac Sodium (Pennsaid) 20 mg/gram /actuation(2 %) solution in metered-dose pump (13 sources) Start: 06-03-2023 End: 07-04-2023 Diclofenac Sodium (Pennsaid) 20 mg/gram /actuation(2 %) solution in metered-dose pump Discontinued 2 PUMP TOPICAL TWICE A DAY June 03, 2023 1:00am July 04, 2023 10:27am apply to left knee BID Start: 06-03-2023 Diclofenac Sod ium (Pennsaid) 20 mg/gram /actuation(2 %) solution in metered-dose pump Active 2 PUMP TOPICAL TWICE A DAY June 03, 2023 1:00am apply to left knee BID Start: 12-18-2022 End: 06-03-2023 Diclofenac Sodium (Pennsaid) 20 mg/gram /actuation(2 %) solution in metered-dose pump Discontinued 2 PUMP TOPICAL TWICE A DAY December 18, 2022 12:00am June 03, 2023 9:28am apply to left knee BID Start: 12-18-2022 Diclofenac Sod ium (Pennsaid) 20 mg/gram /actuation(2 %) solution in metered-dose pump Active 2 PUMP TOPICAL TWICE A DAY December 17, 2022 11:00pm apply to left knee BID Levonorgestrel-Ethinyl Estrad (20 sources) Progestin, Estrogen, Progestin-containing Intrauterine Device Start: 01-02-2019 End: 04-06-2019 take 1 tablet by mouth once daily Levonorgestrel-Ethinyl Estrad Discontinued 1 TABLET PO DAILY January 02, 2019 9:23am April 06, 2019 11:48am Start: 01-02-2019 End: 04-06-2019 take 1 tablet by mouth once daily Levonorgestrel-Ethinyl Estrad Discontinued 1 TABLET PO DAILY January 01, 2019 11:00pm April 06, 2019 10:48am Start: 01-02-2019 End: 04-06-2019 take 1 tablet by mouth once daily Levonorgestrel-Ethinyl Estrad Discontinued 1 TABLET PO DAILY January 02, 2019 12:00am April 06, 2019 11:48am End: 10-16-2020 levonorgestrel-ethinyl estra diol 0.15-0.03 mg per tab levonorgestrel 0.15 mg-ethinyl estradiol 0.03 mg tablet 10/16/2020 Discontinued Norgestimate-Ethinyl Estradiol (20 sources) Progestin, Estrogen Start: 10-11-2019 End: 05-08-2020 take 1 tablet by mouth once daily Norgestimate-Ethinyl Estradiol (Sprintec (28)) 0.25-35 mg-mcg tablet Discontinued 1 TABLET PO daily October 11, 2019 11:25am May 08, 2020 4:54pm Start: 10-11-2019 End: 05-08-2020 take 1 tablet by mouth once daily Norgestimate-Ethinyl Estradiol (Sprintec (28)) 0.25-35 mg-mcg tablet Discontinued 1 TABLET PO daily October 10, 2019 11:00pm May 08, 2020 3:54pm Start: 10-11-2019 End: 05-08-2020 take 1 tablet by mouth once daily Norgestimate-Ethinyl Estradiol (Sprintec (28)) 0.25-35 mg-mcg tablet Discontinued 1 TABLET PO daily October 11, 2019 12:00am May 08, 2020 4:54pm Start: 12-01-2018 End: 10-16-2020 Norgestimate-Ethinyl Estradi ol 0.18/0.215/0.25 mg-25 mcg tab Take 1 tablet by mouth as directed. 12/01/2018 10/16/2020 Discontinued Start: 04-04-2018 End: 01-02-2019 take 1 tablet by mouth once daily Norgestimate-Ethinyl Estradiol (Lcv-Nc-Eeyzcv) 0.18/0.215/0.25 mg-25 mcg tablet Discontinued 1 TABLET PO DAILY April 04, 2018 11:40am January 02, 2019 8:23am Start: 04-04-2018 End: 01-02-2019 take 1 tablet by mouth once daily Norgestimate-Ethinyl Estradiol (Koo-Xi-Undwqv) 0.18/0.215/0.25 mg-25 mcg tablet Discontinued 1 TABLET PO DAILY April 04, 2018 12:40pm January 02, 2019 9:23am Start: 03-15-2018 End: 04-04-2018 take 1 tablet by mouth once daily Norgestimate-Ethinyl Estradiol (Jel-Ld-Azpdey) 0.18/0.215/0.25 mg-25 mcg tablet Discontinued 1 TABLET PO DAILY March 15, 2018 10:59am April 04, 2018 12:41pm Start: 03-15-2018 End: 04-04-2018 take 1 tablet by mouth once daily Norgestimate-Ethinyl Estradiol (Wcx-Mh-Bwtlmj) 0.18/0.215/0.25 mg-25 mcg tablet Discontinued 1 TABLET PO DAILY March 15, 2018 12:00am April 04, 2018 11:41am Start: 03-15-2018 End: 04-04-2018 take 1 tablet by mouth once daily Norgestimate-Ethinyl Estradiol (Zft-Ok-Bsutxi) 0.18/0.215/0.25 mg-25 mcg tablet Discontinued 1 TABLET PO DAILY March 15, 2018 1:00am April 04, 2018 12:41pm End: 10-16-2020 Norgestimate-Ethinyl Estradi ol (ORTHO TRI-CYCLEN, 28,) 0.18/0.215/0.25 mg-35 mcg (28) tab Take by mouth. 10/16/2020 Discontinued etodolac 300 mg oral capsule (20 sources) Nonsteroidal Anti-inflammatory Drug Start: 12-14-2014 End: 03-15-2018 take 300 mg by mouth three times daily at mealtime Etodolac Discontinued 300 MG PO 3 TIMES DAILY WITH MEALS December 14, 2014 12:00am March 15, 2018 10:59am with food fexofenadine hydrochloride 180 mg oral tablet (20 sources) Histamine-1 Receptor Antagonist Start: 12-24-2021 End: 06-03-2022 take 1 tablet by mouth once daily Fexofenadine (Mayelin Allergy) 180 mg tablet Discontinued 180 MG PO DAILY December 24, 2021 12:00am June 03, 2022 4:27pm 2 ml furosemide 10 mg/ml injection (2 sources) Loop Diuretic Start: 11-10-2023 End: 11-10-2023 40 mg, IntraVENous, Administer over 2 Minutes, Once, On Wed11/10/23 at 1215, For 1 dose iv contrast (will be provided with radiology test) (3 sources) Start: 07-08-2023 End: 07-09-2023 iv contrast (will be provided with radiology test) Indications: Gross hematuria CT Urogram WO/W Inject, intravenously, once for 1 dose.No IV access, insert saline lock prior to the beginning of sedation, infusion, injection of imaging exam. Discontinue saline lock post exam. If Pt. has a central line or IVAD, may access for administration according to line specific nursing protocol. Once exam is complete flush line and de-access according to line specific nursing protocol in the CT contrast administration guidelines link. 1 Each 0 07/08/2023 07/09/2023 Start: 07-08-2023 End: 07-09-2023 iv contrast (will be provide d with radiology test) Indications: Gross hematuria CT Urogram WO/W Inject, intravenously, once for 1 dose.No IV access, insert saline lock prior to the beginning of sedation, infusion, injection of imaging exam. Discontinue saline lock post exam. If Pt. has a central line or IVAD, may access for administration according to line specific nursing protocol. Once exam is complete flush line and de-access according to line specific nursing protocol in the CT contrast administration guidelines link. 1 Each 0 07/08/2023 07/09/2023 Active Comment on above: CT Urogram WO/W Inje ct, intravenously, once for 1 dose.No IV access, insert saline lock prior to the beginning of sedation, infusion, injection of imaging exam. Discontinue saline lock post exam. If Pt. has a central line or IVAD, may access for administration according to line specific nursing protocol. Once exam is complete flush line and de-access according to line specific nursing protocol in the CT contrast administration guidelines link. 1 ml ketorolac tromethamine 15 mg/ml cartridge (2 sources) Nonsteroidal Anti-inflammatory Drug, Cyclooxygenase Inhibitor Start: 10-18-19 End: 10-18-19 15 mg, IntraVENous, Once, On Wed10/18/23 at 1320, For 1 dose metroNIDAZOLE 500 mg oral tablet (20 sources) Nitroimidazole Antimicrobial Start: 06-04-19 End: 06-11-19 take 500 mg by mouth twice daily Metronidazole Discontinued 500 MG PO TWICE A DAY 14 June 03, 2022 1:00am June 10, 2022 12:04am Start: 11-27-2019 End: 12-21-2019 take 1 tablet by mouth twice daily Metronidazole (Flagyl) 500 mg tablet Discontinued 500 MG PO TWICE A DAY November 27, 2019 12:00am December 21, 2019 12:55pm naproxen 250 mg oral tablet (20 sources) Nonsteroidal Anti-inflammatory Drug Start: 11-28-2019 End: 12-13-2019 take 250-500 mg by mouth every eight hours as needed Naproxen Discontinued 250 - 500 MG PO EVERY 8 HOURS NEEDED November 28, 2019 12:00am December 13, 2019 11:43am nitrofurantoin, macrocrystals 100 mg oral capsule (20 sources) Nitrofuran Antibacterial Start: 12-21-2019 End: 05-08-2020 take 100 mg by mouth twice daily at mealtime Nitrofurantoin Macrocrystal Discontinued 100 MG PO TWICE A DAY December 21, 2019 12:00am May 08, 2020 4:53pm must administer with a meal/food Start: 04-06-2019 End: 04-13-2019 take 100 mg by mouth twice daily at mealtime Nitrofurantoin Macrocrystal Discontinued 100 MG PO TWICE A DAY 14 April 06, 2019 1:00am April 13, 2019 1:07am administer with food (meal or snack) nortriptyline 25 mg oral capsule (20 sources) Tricyclic Antidepressant Start: 04-06-2019 End: 05-28-2019 Nortriptyline Discontinued 25 MG PO .prn April 06, 2019 1:00am May 28, 2019 10:39am omeprazole 20 mg delayed release oral capsule (20 sources) Proton Pump Inhibitor Start: 06-03-2022 End: 08-04-2022 take 40 mg by mouth twice daily Omeprazole Discontinued 40 MG PO TWICE A DAY June 03, 2022 4:28pm August 04, 2022 1:21pm Start: 06-03-2022 take 1 capsule by mo uth twice daily omeprazole (PRILOSEC) 40 mg capsule Indications: Left upper quadrant abdominal pain Take 1 capsule by mouth twice daily. 60 capsule 3 06/03/2022 Active Start: 02-24-2021 End: 02-11-2022 take 1 capsule by mouth twice daily omeprazole (PRILOSEC) 40 mg capsule Indications: Left upper quadrant abdominal pain Take 1 capsule by mouth twice daily. 60 capsule 3 02/11/2022 Active Start: 05-08-2020 End: 06-03-2022 take 20 mg by mouth twice daily Omeprazole Discontinue d 20 MG PO TWICE A DAY October 29, 2021 3:04pm June 03, 2022 4:28pm Start: 03-15-2018 End: 01-02-2019 take 20 mg by mouth once daily Omeprazole Discontinued 20 MG PO DAILY March 15, 2018 1:00am January 02, 2019 9:06am Comment on above: Take 1 capsule by mo uth twice daily. ondansetron 4 mg disintegrating oral tablet (20 sources) Serotonin-3 Receptor Antagonist Start: 10-18-2023 End: 10-18-2023 4 mg, IntraVENous, Once, On Wed10/18/23 at 1320, For 1 dose Start: 02-04-2022 End: 10-21-2023 take 1 tablet by mouth every eight hours as needed for nausea and nausea ondansetron orally disintegrating (ZOFRAN ODT) 4 mg disintegrating tablet Indications: Nausea Take 1 tablet by mouth every 8 hours as needed for nausea/vomiting. 30 tablet 1 02/04/2022 Active Start: 10-29-2021 End: 11-05-2021 take 4 mg by mouth every eight hours Ondansetron Hcl Discontinued 4 MG PO Q8H October 29, 2021 12:00am November 05, 2021 11:30am Start: 12-31-2020 take 1 tablet by monet th every eight hours as needed for nausea and nausea ondansetron orally disintegrating (ZOFRAN ODT) 4 mg disintegrating tablet Indications: Nausea Take 1 tablet by mouth every 8 hours as needed for nausea/vomiting. 30 tablet 1 12/31/2020 Active Comment on above: Take 1 tablet by monet th every 8 hours as needed for nausea/vomiting. polyethylene glycol 3350 41405 mg powder for oral solution (20 sources) Osmotic Laxative Start: 04-04-2018 End: 01-02-2019 Polyethylene Glycol 3350 (Miralax) 17 gram/dose powder Discontinued PO April 04, 2018 1:00am January 02, 2019 9:07am predniSONE 20 mg oral tablet (20 sources) Start: 06-18-2023 End: 08-13-2023 predniSONE (Deltasone) 20 MG tablet Indications: Herpes zoster without complication , COVID-19 virus infection Take 3 tablets daily for 5 days, then 2 tablets daily for 3 days, then 1 tablet daily for 2 days. 23 tablet 0 06/18/2023 08/13/2023 Discontinued (Med list cleanup) Start: 06-16-2022 End: 07-08-2022 take 4 tablets by mouth once daily, then take 3 tablets by mouth once daily, then take 2 tablets by mouth once daily, then take 1 tablet by mouth once daily Prednisone Discontinued 10 MG PO DIRECTED June 16, 2022 12:00am July 08, 2022 9:32am Take 4 tablets daily for 2 days, then 3 daily for 3 days, then 2 daily for 3 days, then 1 a day for 3 days Start: 06-15-2022 End: 06-19-2022 take 1 tablet by mouth once daily at mealtime predniSONE (DELTASONE) 20 mg tablet Indications: Acute cough , SOB (shortness of breath) Take 1 tablet by mouth once daily for 4 days. Take daily with food. 4 tablet 0 06/15/2022 06/19/2022 Start: 09-07-2021 End: 10-29-2021 Prednisone Discontinued 10 M G PO .COMPLEX September 07, 2021 12:00am October 29, 2021 3:04pm Take 4 pills for 3 days, 3 pills for 3 days, 2 pills for 3 days, take 1 pill for 3 days Comment on above: Take 1 tablet by monet once daily for 4 days. Take daily with food. 50 ml sodium chloride 9 mg/ml injection (3 sources) Start: 10-18-2023 End: 10-18-2023 1,000 mL, IntraVENous, at 1,000 mL/hr, Administer over 1 Hours, Once, On Wed10/18/23 at 1320, For 1 dose Start: 07-08-2023 End: 07-08-2023 0.9 % sodium chloride (NACL 0.9%) infusion Indications: Gross hematuria Administer at rate defined per CT contrast administration specifications. To be provided with radiology test. 150 mL 0 07/08/2023 07/08/2023 Active Comment on above: Administer at rate d efined per CT contrast administration specifications. To be provided with radiology test. technetium Tc-99m mertiatide (MAG3) radio-isotope injection 9 millicurie (2 sources) Start: 11-10-2023 End: 11-10-2023 9 millicurie (rounded from 8.5 millicurie), IntraVENous, IMG once PRN, L AC, Starting on Wed11/10/23 at 1225, For 1 dose technetium Tc-99m sulfur colloid (Nycomed-SC) radio-isotope solution 1.1 millicurie (2 sources) Start: 11-20-2022 End: 11-20-2022 technetium Tc-99m sulfur colloid (Nycomed-SC) radio-isotope solution 1.1 millicurie traMADol hydrochloride 50 mg oral tablet (11 sources) Opioid Agonist Start: 12-18-2022 End: 04-21-2023 Tramadol Discontinued MG PO December 18, 2022 12:00am April 21, 2023 5:19pm Start: 12-16-2022 End: 12-21-2022 take 1 tablet by mouth every six hours as needed for pain traMADol (Ultram) 50 MG tablet Indications: Injury due to fall, initial encounter , Left knee injury, initial encounter Take 1 tablet (50 mg) by mouth every 6 hours as needed for severe pain (7-10) for up to 5 days. 15 tablet 0 12/16/2022 12/21/2022 Active traZODone hydrochloride 50 mg oral tablet (1 source) Serotonin Reuptake Inhibitor Start: 11-24-2018 End: 10-16-2020 take 1 tablet by mouth once daily traZODone (DESYREL) 50 mg tablet Take 1 tablet by mouth once daily. 11/24/2018 10/16/2020 Discontinued valACYclovir 1000 mg oral tablet (20 sources) Herpesvirus Nucleoside Analog DNA Polymerase Inhibitor, Herpes Simplex Virus Nucleoside Analog DNA Polymerase Inhibitor, Herpes Zoster Virus Nucleoside Analog DNA Polymerase Inhibitor Start: 07-04-2023 End: 07-04-2023 take 1000 mg by mouth once daily Valacyclovir Discontinued 1000 MG PO DAILY July 04, 2023 12:00am July 04, 2023 10:28am Start: 06-30-2023 valACYclovir ( VALTREX) 1 gram tablet 06/30/2023 Active Start: 03-08-2023 End: 03-09-2023 take 2 tablets by mouth twice daily valACYclovir (Valtrex) 1 g tablet Take 2 tablets (2,000 mg) by mouth 2 times daily for 1 day. 8 tablet 0 03/08/2023 03/09/2023 Active Start: 05-28-2019 End: 06-04-2019 take 1000 mg by mouth every eight hours Valacyclovir Discontinued 1000 MG PO Q8H 16 10May 28, 2019 1:00am June 04, 2019 1:09am Problems Active Problems Problem Classification Problem Date Documented Da te Episodic/Chronic Abdominal pain (20 sources) Pain in pelvis; Translations: [Pelvic and perineal pain] Onset: Episodic Acute bronchitis (13 sources) Acute viral bronchitis; Translations: [Acute bronchitis due to other specified organisms] 06-16-2022 Episodic Administrative/social admission (17 sources) Persons encountering health services in other specified circumstances; Translations: [Other reasons for seeking consultation] Episodic Allergic reactions (20 sources) H/O: non-drug allergy; Translations: [Allergy status to unspecified drugs, medicaments and biological substances status] 10-29-2021 Episodic Anxiety disorders (20 sources) Anxiety; Translations: [Anxiety disorder, unspecified] Onset: 0 03-24-2021 Chronic Asthma (20 sources) Reactive airway disease; Translations: [Unspecified asthma, uncomplicated] Onset: 3 03-24-2021 Chronic Chronic obstructive pulmonary disease and bronchiectasis (20 sources) Bronchitis; Translations: [Bronchitis, not specified as acute or chronic] Episodic Disorders of lipid metabolism (6 sources) Raised low density lipoprotein cholesterol; Translations: [Pure hypercholesterolemia, unspecified] Onset: 5 05-17-2024 Chronic E Codes: Fall (3 sources) Falling injury; Translations: [Unspecified fall, initial encounter] 12-16-2022 Episodic Esophageal disorders (20 sources) Gastroesophageal reflux disease; Translations: [Gastro-esophageal reflux disease without esophagitis] Onset: 3 10-29-2021 Chronic Essential hypertension (20 sources) Essential (primary) hypertension; Translations: [Unspecified essential hypertension] Onset: 3 04-01-2022 Chronic Genitourinary symptoms and ill-defined conditions (20 sources) Unspecified urinary incontinence; Translations: [Urinary incontinence, unspecified] Chronic Menstrual disorders (20 sources) Menorrhagia; Translations: [Excessive and frequent menstruation with regular cycle] 10-29-2021 Chronic Mood disorders (20 sources) Depressive disorder; Translations: [Depression] Onset: 8 03-21-2010 Chronic Mood disorders (20 sources) Mood disorders; Translations: [Depression, unspecified] Onset: 3 Resolved: 5 06-18-2023 Nausea and vomiting (15 sources) Nausea and vomiting; Translations: [Nausea with vomiting, unspecified] 07-17-2022 Episodic Noninfectious gastroenteritis (20 sources) Chronic diarrhea; Translations: [Noninfective gastroenteritis and colitis, unspecified] 10-29-2021 Episodic Nutritional deficiencies (20 sources) Vitamin D deficiency; Translations: [Vitamin D deficiency, unspecified] Onset: 2 Chronic Open wounds of extremities (20 sources) Laceration of right index finger; Translations: [Laceration without foreign body of right index finger without damage to nail, initial encounter] 02-27-2022 Episodic Osteoarthritis (20 sources) Bilateral primary osteoarthritis of knee; Translations: [Osteoarthrosis, unspecified whether generalized or localized, lower leg] Onset: 3 Chronic Other and unspecified benign neoplasm (20 sources) Dysplastic nevus of skin; Translations: [Melanocytic nevi, unspecified] 03-24-2021 Episodic Other circulatory disease (8 sources) Elevated blood-pressure reading, without diagnosis of hypertension; Translations: [Elevated blood pressure reading without diagnosis of hypertension] Episodic Other connective tissue disease (8 sources) Trochanteric bursitis, right hip; Translations: [Enthesopathy of hip region] Episodic Other connective tissue disease (8 sources) Iliotibial band syndrome, right leg; Translations: [Other disorders of muscle, ligament, and fascia] Episodic Other connective tissue disease (8 sources) Other bursitis of knee, right knee; Translations: [Pes anserinus tendinitis or bursitis] Episodic Other connective tissue disease (9 sources) Pain in right lower leg; Translations: [Pain in limb] 04-01-2022 Episodic Other connective tissue disease (9 sources) Other symptoms and signs involving the nervous system; Translations: [Other symptoms involving nervous and musculoskeletal systems] 04-01-2022 Episodic Other connective tissue disease (2 sources) Pain in right lower limb; Translations: [Pain in right leg] Episodic Other connective tissue disease (1 source) Pain of right calf; Translations: [Pain in right lower leg] 10-30-2022 Episodic Other diseases of bladder and urethra (5 sources) Lesion of bladder; Translations: [Bladder disorder, unspecified] 06-10-2023 Chronic Other diseases of bladder and urethra (3 sources) Bladder disorder, unspecified; Translations: [Unspecified disorder of bladder] 07-05-2023 Chronic Other female genital disorders (20 sources) Abnormal uterine bleeding; Translations: [Abnormal uterine and vaginal bleeding, unspecified] 10-29-2021 Chronic Other female genital disorders (6 sources) Unspecified condition associated with female genital organs and menstrual cycle; Translations: [Other specified symptoms associated with female genital organs] 06-03-2022 Episodic Other gastrointestinal disorders (20 sources) Irritable bowel syndrome; Translations: [Irritable bowel syndrome without diarrhea] Onset: 3 03-24-2021 Chronic Other gastrointestinal disorders (12 sources) Irritable bowel syndrome without diarrhea; Translations: [Irritable bowel syndrome] Onset: 3 07-17-2022 Chronic Other gastrointestinal disorders (3 sources) Irritable bowel syndrome with diarrhea; Translations: [Irritable bowel syndrome with diarrhea] 10-30-2022 Chronic Other gastrointestinal disorders (2 sources) Mixed irritable bowel syndrome; Translations: [Mixed irritable bowel syndrome] Onset: Chronic Other gastrointestinal disorders (20 sources) H/O: gastrointestinal disease; Translations: [Personal history of other diseases of the digestive system] 10-29-2021 Episodic Other gastrointestinal disorders (14 sources) Abdominal bloating; Translations: [Abdominal distension (gaseous)] Episodic Other gastrointestinal disorders (3 sources) Abdominal distension (gaseous); Translations: [Flatulence, eructation, and gas pain] 07-17-2022 Episodic Other hematologic conditions (5 sources) Serum total protein abnormal; Translations: [Other specified abnormalities of plasma proteins] 05-18-2023 Episodic Other injuries and conditions due to external causes (3 sources) Injury of left knee; Translations: [Unspecified injury of left lower leg, initial encounter] 12-16-2022 Episodic Other lower respiratory disease (20 sources) Cough; Translations: [Cough] Episodic Other lower respiratory disease (2 sources) Dyspnea; Translations: [Shortness of breath] Episodic Other lower respiratory disease (1 source) Cough; Translations: [Acute cough] 06-15-2022 Episodic Other nervous system disorders (1 source) Right leg peripheral neuropathy; Translations: [Unspecified mononeuropathy of right lower limb] 07-21-2024 Chronic Other nervous system disorders (2 sources) Unspecified mononeuropathy of right lower limb; Translations: [Unspecified mononeuropathy of right lower limb] Onset: Chronic Other nervous system disorders (20 sources) H/O: Disorder; Translations: [Personal history of other diseases of the nervous system and sense organs] 10-29-2021 Episodic Other non-epithelial cancer of skin (20 sources) History of malignant neoplasm of skin; Translations: [Personal history of other malignant neoplasm of skin] 10-29-2021 Episodic Other non-traumatic joint disorders (8 sources) Pain in left knee; Translations: [Left knee pain] 12-18-2022 Episodic Other nutritional; endocrine; and metabolic disorders (20 sources) Obesity; Translations: [Obesity, unspecified] Onset: 8 03-21-2010 Chronic Other nutritional; endocrine; and metabolic disorders (20 sources) Cholesterol level - finding; Translations: [Lipoprotein deficiency] Onset: 1 10-16-2010 Chronic Other nutritional; endocrine; and metabolic disorders (8 sources) Body mass index (BMI) 35.0-35.9, adult; Translations: [Body Mass Index 35.0-35.9, adult] Chronic Other nutritional; endocrine; and metabolic disorders (20 sources) Obesity caused by energy imbalance; Translations: [Other obesity due to excess calories] Onset: 8 05-03-2023 Chronic Other nutritional; endocrine; and metabolic disorders (2 sources) Other obesity due to excess calories; Translations: [Other obesity due to excess calories] Onset: 5 Chronic Other nutritional; endocrine; and metabolic disorders (2 sources) Body mass index (BMI) 37.0-37.9, adult; Translations: [Body mass index (BMI) 37.0-37.9, adult] Onset: 5 Chronic Other nutritional; endocrine; and metabolic disorders (2 sources) Body mass index (BMI) 36.0-36.9, adult; Translations: [Body mass index (BMI) 36.0-36.9, adult] Onset: 4 Chronic Other nutritional; endocrine; and metabolic disorders (1 source) Weight gain; Translations: [Abnormal weight gain] 04-28-2023 Episodic Other skin disorders (6 sources) Disorder of the skin and subcutaneous tissue, unspecified; Translations: [Unspecified disorder of skin and subcutaneous tissue] 05-20-2022 Episodic Other skin disorders (1 source) Eruption; Translations: [Rash and other nonspecific skin eruption] 07-21-2024 Episodic Other upper respiratory disease (5 sources) Other specified disorders of nose and nasal sinuses; Translations: [Other disease of nasal cavity and sinuses] Episodic Other upper respiratory infections (20 sources) Acute maxillary sinusitis; Translations: [Acute maxillary sinusitis, unspecified] 10-29-2021 Episodic Residual codes; unclassified (12 sources) Family history of cancer of colon; Translations: [Family history of malignant neoplasm of digestive organs] 07-08-2022 Episodic Residual codes; unclassified (10 sources) Postmenopausal state; Translations: [Asymptomatic menopausal state] 08-20-2022 Episodic Residual codes; unclassified (2 sources) Asymptomatic menopausal state; Translations: [Asymptomatic postmenopausal status (age-related) (natural)] 08-20-2022 Episodic Rheumatoid arthritis and related disease (14 sources) Inflammatory polyarthropathy; Translations: [Inflammatory polyarthropathy] Onset: 4 12-22-2023 Chronic Screening and history of mental health and substance abuse codes (20 sources) H/O: anxiety state; Translations: [Personal history of other mental and behavioral disorders] 11-28-2019 Episodic Unclassified (1 source) Obesity, class 2; Translations: [Obesity, class 2] Onset: 5 Unclassified (1 source) Low back pain, unspecified; Translations: [Low back pain, unspecified] Onset: 5 Urinary tract infections (20 sources) Urinary tract infection, site not specified; Translations: [Urinary tract infection, site not specified] 05-20-2022 Episodic Viral infection (20 sources) Herpes zoster; Translations: [Zoster without complications] 10-29-2021 Episodic Past or Other Problems Problem Classification Problem Date Documented Date Episodic/Chronic Cancer of cervix (20 sources) Low grade squamous intraepithelial lesion on cervical Papanicolaou smear; Translations: [Low grade squamous intraepithelial lesion on cytologic smear of cervix (LGSIL)] Onset: 10-07-2022 Resolved: 10-30-2022 08-28-2022 Episodic Conditions associated with dizziness or vertigo (20 sources) Vestibular nerve disorder; 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, unspecified ear] Onset: 06-15-2013 06-15-2013 Episodic Diabetes mellitus without complication (20 sources) Impaired fasting glycemia; Translations: [Impaired fasting glucose] Onset: 06-02-2007 03-21-2010 Episodic Genitourinary symptoms and ill-defined conditions (20 sources) History of urinary tract infection; Translations: [Personal history of urinary (tract) infections] Onset: 07-08-2023 Episodic Headache; including migraine (20 sources) Headache; Translations: [Headache] Onset: 06-15-2013 06-15-2013 Episodic Immunizations and screening for infectious disease (20 sources) Patient encounter status; Translations: [Encounter for screening for COVID-19] Onset: 11-10-2023 Episodic Malaise and fatigue (4 sources) Fatigue; Translations: [Other fatigue] Onset: 02-09-2024 02-09-2024 Episodic Other connective tissue disease (20 sources) Muscle pain; Translations: [Myalgia and myositis, unspecified] Onset: 06-15-2013 06-15-2013 Episodic Other diseases of kidney and ureters (4 sources) Hydronephrosis; Translations: [Other hydronephrosis] Onset: 11-10-2023 10-15-2023 Episodic Other diseases of kidney and ureters (1 source) Other hydronephrosis; Translations: [Other hydronephrosis] Onset: 11-10-2023 Episodic Other injuries and conditions due to external causes (1 source) Encounter for examination and observation following other accident; Translations: [Encounter for examination and observation following other accident] Onset: 03-16-2024 Episodic Other non-traumatic joint disorders (20 sources) Pain in right knee; Translations: [Pain in joint, lower leg] Onset: 10-01-2023 Episodic Other non-traumatic joint disorders (1 source) Pain in left shoulder; Translations: [Pain in left shoulder] Onset: 11-05-2023 Episodic Other screening for suspected conditions (not mental disorders or infectious disease) (14 sources) Encounter for other screening for malignant neoplasm of breast; Translations: [Breast screening, unspecified] Onset: 11-10-2023 04-01-2022 Episodic Ovarian cyst (1 source) Unspecified ovarian cyst, left side; Translations: [Unspecified ovarian cyst, left side] Onset: 03-28-2024 Episodic Spondylosis; intervertebral disc disorders; other back problems (20 sources) Neck pain; Translations: [Cervicalgia] Onset: 06-15-2013 06-15-2013 Episodic Sprains and strains (20 sources) Sprain of foot; Translations: [Unspecified sprain of unspecified foot, initial encounter] Onset: 11-04-2007 03-21-2010 Episodic Unclassified (1 source) Obesity, class 2; Translations: [Obesity, class 2] Onset: 05-17-2024 Results Test Name Value Interpretation Reference Range 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 Office Visit Reporton 08-30-2024 Ships Equipment Engineer Office Visit Report [facility] [address], [address] [place] [address] OFFICE VISIT Date of Service: 08/30/24 MR#: [id number] Acct: [id number] Name: MARCELINO ARAIZA Rep #: [id number] 5 : 1975 Provider: TEJINDER Hamm Age/Sex: 48/F Location: [facility] Status: Signed Intake Vital Signs 02/17/24 18:22 08/30/24 09:56 Height 5 ft 8 in 5 ft 8 in Weight: 242 lb 6 oz BMI 36.8 BP 97/61 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: No Is patient in pain?: No Allergies ofloxacin Allergy (Severe, Verified 08/30/24 10:03) SWELLING Environmental Allergies: Uncoded Allergy (Intermediate, Verified 08/30/24 10:03) Itching Medications ???Medication ???Instructions ???Recorded ???Confirmed ???Type albuterol sulfate 90 mcg/actuation 2 puff inhalation Q6H PRN 08/30/24 Rx aerosol inhaler shortness of breath or wheezing #8.5 grams dicyclomine 10 mg capsule 10 mg PO TID PRN abdominal pain 08/30/24 History bupropion HCl 300 mg 24 hr tablet, 300 mg PO QAM #90 tabs 06/24/22 08/30/24 Rx extended release (Wellbutrin XL) lisinopril 5 mg tablet 5 mg PO DAILY #30 tabs 08/13/22 Rx fluoxetine 40 mg capsule 40 mg PO DAILY #90 caps 09/21/22 0 08/30/24 Rx albuterol sulfate 2.5 mg/0.5 mL 5 mg inhalation Q6H PRN shortness 09/24/22 08/30/24 Rx solution for nebulization of breath or wheezing #30 ea fluticasone propionate 50 1 spray intranasal DAILY PRN 06/0208/30/24 History mcg/actuation nasal allergy symptoms spray,suspension (Flonase Allergy Relief) meloxicam 15 mg tablet 15 mg PO DAILY Pain 06/03/2308/30 History clindamycin phosphate 1 % topical 1 applic topical BID 07/04/2307/21 History gel ondansetron 4 mg disintegrating 4 mg PO TID PRN nausea and 4 08/30/24 Rx tablet vomiting #21 tabs lidocaine 5 % topical patch 1 patch topical DAILY #15 ea 02/1608/30/24 Rx (Lidoderm) fluoxetine 20 mg capsule 20 mg PO QDAY 04/05/24 08/30/24 Hi story sucralfate 100 mg/mL oral 10 ml PO BID 1 month #600 mL 04/0508/30/24 Rx suspension (Carafate) pantoprazole 20 mg tablet,delayed 20 mg PO BID #60 tabs 04/13/24 Rx release cyclobenzaprine 5 mg tablet 5 mg PO TID PRN muscle spasm #30 0 04/21/24 08/30/24 Rx tabs estradiol 0.01% (0.1 mg/gram) See Rx Instructions vaginal 08/30/24 Rx vaginal cream .COMPLEX #42.5 grams gabapentin 100 mg capsule 100 mg PO BID 08/30/24 08/30/24 Hi story Is last menstrual period known: No Patient : No : No Control Method: none PFSH Medical History Pelvic pain Left shoulder pain Osteoarthritis of right knee Right knee pain Urinary tract infection Gross hematuria Lesion of bladder Wears glasses Anxiety Alcohol use History of steroid therapy Arthritis Bladder disease Easy bruising Back pain Difficulty swallowing History of IBS Gastric reflux Non-smoker Hypertension History of nasal obstruction Nausea Bloating History of skin cancer IBS (irritable bowel syndrome) History of gastrointestinal disorder Hx of carpal tunnel syndrome Hx: UTI (urinary tract infection) Hx of seasonal allergies Cough Herpes zoster Menorrhagia with regular cycle Asthma Anemia Depression Acid reflux Vitamin D deficiency Chronic diarrhea History of anxiety Surgical History History of esophagogastroduodenoscopy (EGD) Hx of colonoscopy S/P endometrial ablation Status post hysteroscopy History of tonsillectomy History of carpal tunnel surgery Hx of cholecystectomy Family History Grandmother Heart disease Colon cancer Diabetes Grandmother Diabetes Father Rheumatoid arthritis Mother Anxiety Arthritis Depression Brother Asthma Allergies Grandfather Cancer Social History adopted: No household members: family housing: apartment number of children: 3 current occupational status: employed 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 Normal [facility] Progress Noteon 08-18-2024 Progress Note 08/18/2024 Marcelnio Araiza (: 1975) is a 48 y.o. female , Established patient, here for evaluation of the following chief complaint(s): Follow-up and Peripheral Neuropathy I obtained verbal consent from the patient and/or patient?s guardian to use ambient listening technology during this encounter before the ambient technology was engaged. Patient was identified and seen today via Telehealth by agreement and consent. I used the following Telehealth technology: Audio and video capabilities. Patient location: Patient Location: Home. This patient encounter is appropriate and reasonable under the circumstances: appointment availability . The patient has been advised of the potential risks and limitations of this mode of treatment (including but not limited to the absence of in-person examination) and has agreed to be treated in a remote fashion in spite of them. Any and all of the patient's/patient's family's questions on this issue have been answered and I have made no promises or guarantees to the patient. The patient has also been advised to contact this office for worsening conditions or problems, and seek emergency medical treatment and/or call 911 if the patient deems either necessary. The patient stated that they are currently in the [facility]. If the patient is a minor, permission has been obtained by the parent or guardian for the patient to receive medical care at this visit. Assessment/Plan 1. Neuropathy of right foot - gabapentin (Neurontin) 100 MG capsule; Take 1 capsule (100 mg) by mouth 2 times daily., Starting 08/18/2024, Normal - chronic, improving - Patient reports improvement in foot symptoms with gabapentin - Symptoms primarily occur in the evenings - Increase gabapentin to 100mg capsule twice daily - New regimen: 100mg in the morning and 100mg in the evening - Monitor for side effects and efficacy of new dosing regimen - Follow up at next physical appointment or sooner if concerns arise I performed the above service AI scribed on my behalf, and I have reviewed and confirmed the accuracy and completeness of the medical documentation. Follow up in 3 months (on 11/15/2024) for Next scheduled follow-up or sooner if needed. Subjective History of Present Illness Marcelino Araiza, a 48-year-old female, presents for a follow-up video visit regarding neuropathy-type symptoms. She reports improvement in her foot symptoms since starting gabapentin. She noticed that when she tried not taking the medication, her symptoms returned. Marcelino mentions experiencing symptoms mostly in the evenings and not so much when she first wakes up. She takes the medication at bedtime. Is interested in having the dose increased of her gabapentin since she continues to experience symptoms and it has appeared to be helpful so far. Review of Systems Constitutional: Negative for chills and fever. Respiratory: Negative for shortness of breath. Cardiovascular: Negative for chest pain. Objective There were no vitals filed for this visit. There is no height or weight on file to calculate BMI. Physical Exam Constitutional: General: She is not in acute distress. Appearance: She is not ill-appearing. HENT: Head: Normocephalic and atraumatic. Pulmonary: Effort: Pulmonary effort is normal. Comments: Speaking in full sentences. Skin: Coloration: Skin is not pale. Findings: No erythema. Neurological: Mental Status: She is alert and oriented to person, place, and time. Psychiatric: Mood and Affect: Mood normal. Behavior: Behavior normal. Thought Content: Thought content normal. Judgment: Judgment normal. Data Reviewed Results An electronic signature was used to authenticate this note. TERE Chung CNP 08/18/2024 1:22 PM [facility] Progress Noteon 07-21-2024 Progress Note 07/21/2024 Marcelino Araiza (: 1975) is a 48 y.o. female , Established patient, here for evaluation of the following chief complaint(s): Peripheral Neuropathy Patient was identified and seen today via Telehealth by agreement and consent. I used the following Telehealth technology: Audio and video capabilities. Patient location: Patient Location: Home. This patient encounter is appropriate and reasonable under the circumstances: appointment availability . The patient has been advised of the potential risks and limitations of this mode of treatment (including but not limited to the absence of in-person examination) and has agreed to be treated in a remote fashion in spite of them. Any and all of the patient's/patient's family's questions on this issue have been answered and I have made no promises or guarantees to the patient. The patient has also been advised to contact this office for worsening conditions or problems, and seek emergency medical treatment and/or call 911 if the patient deems either necessary. The patient stated that they are currently in the state [facility]. If the patient is a minor, permission has been obtained by the parent or guardian for the patient to receive medical care at this visit. ASSESSMENT/PLAN: 1. Neuropathy of right foot - gabapentin (Neurontin) 100 MG capsule; Take 1 capsule (100 mg) by mouth Nightly., Starting Wed07/21/2024, Normal - Do not suspect gout based on description of symptoms and lack of redness, swelling, and feeling hot to the touch. - Will have her do a trial of gabapentin 100 mg before bedtime and see how symptoms respond. - OARRS report reviewed with no discrepancies. CSA will need signed if she continues with this medication. - Will do a close follow-up in 3 to 4 weeks to see how she is doing on the new medication. 2. Depressive disorder - buPROPion XL (Wellbutrin XL) 300 MG 24 hr tablet; Take 1 tablet (300 mg) by mouth daily. Do not crush, chew, or split., Starting Wed07/21/2024, Normal - Stable with Wellbutrin. Will continue current treatment plan. 3. Anxiety - buPROPion XL (Wellbutrin XL) 300 MG 24 hr tablet; Take 1 tablet (300 mg) by mouth daily. Do not crush, chew, or split., Starting Wed07/21/2024, Normal - Stable with Wellbutrin. Will continue current treatment plan. 4. Rash and nonspecific skin eruption - Improving. Will continue to monitor. Follow up in about 4 weeks (around 08/18/2024) for Follow-up on right foot neuropathy. SUBJECTIVE/OBJECTIVE: JUSTO Cano presents today for a video virtual visit with concerns of numbness/tingling on the top of her right foot around her second toe that will radiate up to her ankle for the past couple of months. Feels symptoms wax and wane but is worsening overall. Denies redness or swelling. Denies her foot feeling hot to the touch. Denies history of injuries/surgeries on her right foot. Feels symptoms are worse at night. Is also requesting a refill on her Wellbutrin that she takes for her depression and anxiety. States the current dose is working well for her. Also notes that she fell down the stairs about a week ago and bumped her buttocks. Had a bit of a rash breakout around the area that is now improving. Review of Systems Respiratory: Negative for shortness of breath. Cardiovascular: Negative for chest pain. Skin: Positive for rash. Neurological: Positive for numbness. Psychiatric/Behavioral: Negative for dysphoric mood, self-injury and suicidal ideas. The patient is not nervous/anxious. There were no vitals filed for this visit. There is no height or weight on file to calculate BMI. Physical Exam Constitutional: General: She is not in acute distress. Appearance: She is not ill-appearing. Pulmonary: Effort: Pulmonary effort is normal. Comments: Speaking in full sentences. Skin: Coloration: Skin is not pale. Findings: No erythema. Neurological: Mental Status: She is alert and oriented to person, place, and time. Psychiatric: Mood and Affect: Mood normal. Behavior: Behavior normal. Thought Content: Thought content normal. Judgment: Judgment normal. Data Reviewed Labs: Imaging/Testing: An electronic signature was used to authenticate this note. Ashley Gomez APRN - [place] 07/21/2024 1:56 PM Normal [facility] Gastroenterology Visit Repor ton 07-07-2024 Gastroenterology Visit Report [facility] [address] [place] [address] OFFICE VISIT Date of Service: 07/07/24 MR#: [id number] Acct: [id number] Name: MARCELINO ARAIZA Rep #: [id number] 6 : 1975 Provider: Tanna Tam DO Age/Sex: 48/F Location: [facility] Status: Signed Intake Vital Signs 02/17/24 18:22 Height 5 ft 8 in Intake Visit Reasons: Follow up Allergies ofloxacin Allergy (Severe, Verified 04/21/24 10:24) SWELLING Environmental Allergies: Uncoded Allergy (Intermediate, Verified 04/21/24 10:24) Itching Medications ???Medication ???Instructions ???Recorded ???Confirmed ???Type albuterol sulfate 90 mcg/actuation 2 puff inhalation Q6H PRN 07/07/24 Rx aerosol inhaler shortness of breath or wheezing #8.5 grams dicyclomine 10 mg capsule 10 mg PO TID PRN abdominal pain 07/07/24 History bupropion HCl 300 mg 24 hr tablet, 300 mg PO QAM #90 tabs 06/24/22 07/07/24 Rx extended release (Wellbutrin XL) lisinopril 5 mg tablet 5 mg PO DAILY #30 tabs 08/13/22 Rx fluoxetine 40 mg capsule 40 mg PO DAILY #90 caps 09/21/22 0 07/07/24 Rx albuterol sulfate 2.5 mg/0.5 mL 5 mg inhalation Q6H PRN shortness 09/24/22 07/07/24 Rx solution for nebulization of breath or wheezing #30 ea fluticasone propionate 50 1 spray intranasal DAILY PRN 06/0207/07/24 History mcg/actuation nasal allergy symptoms spray,suspension (Flonase Allergy Relief) meloxicam 15 mg tablet 15 mg PO DAILY Pain 06/03/2307/07 History multivitamin-ferrous 1 tab PO DAILY 06/03/23 07/07/24 H istory fumarate-folic acid 18 mg-400 mcg tablet (Centrum Complete) clindamycin phosphate 1 % topical 1 applic topical BID 07/04/2302/20 History gel cream base no.175 (bulk) 1 applic topical .BIW 07/04/2302/20 History (Versatile Rich topical cream) triamcinolone acetonide 0.1 % 1 applic topical PRN 07/04/2306/27 History topical cream estradiol 0.01% (0.1 mg/gram) See Rx Instructions vaginal 07/07/24 History vaginal cream .COMPLEX ondansetron 4 mg disintegrating 4 mg PO TID PRN nausea and 4 07/07/24 Rx tablet vomiting #21 tabs lidocaine 5 % topical patch 1 patch topical DAILY #15 ea 02/1607/07/24 Rx (Lidoderm) fluoxetine 20 mg capsule 20 mg PO QDAY 04/05/24 07/07/24 Hi story sucralfate 100 mg/mL oral 10 ml PO BID 1 month #600 mL 04/0507/07/24 Rx suspension (Carafate) pantoprazole 20 mg tablet,delayed 20 mg PO BID #60 tabs 04/13/24 Rx release cyclobenzaprine 5 mg tablet 5 mg PO TID PRN muscle spasm #30 0 04/21/24 07/07/24 Rx tabs PFSH Medical History Pelvic pain Left shoulder pain Osteoarthritis of right knee Right knee pain Urinary tract infection Gross hematuria Lesion of bladder Wears glasses Anxiety Alcohol use History of steroid therapy Arthritis Bladder disease Easy bruising Back pain Difficulty swallowing History of IBS Gastric reflux Non-smoker Hypertension History of nasal obstruction Nausea Bloating History of skin cancer IBS (irritable bowel syndrome) History of gastrointestinal disorder Hx of carpal tunnel syndrome Hx: UTI (urinary tract infection) Hx of seasonal allergies Cough Herpes zoster Menorrhagia with regular cycle Asthma Anemia Depression Acid reflux Vitamin D deficiency Chronic diarrhea History of anxiety Surgical History History of esophagogastroduodenoscopy (EGD) Hx of colonoscopy S/P endometrial ablation Status post hysteroscopy History of tonsillectomy History of carpal tunnel surgery Hx of cholecystectomy Family History Grandmother Heart disease Colon cancer Diabetes Grandmother Diabetes Father Rheumatoid arthritis Mother Anxiety Arthritis Depression Brother Asthma Allergies Grandfather Cancer Social History adopted: No household members: family housing: apartment number of children: 3 current occupational status: employed current occupation: [employer]- Patient Liason sexually active: Yes Smoking Status: Never smoker Electronic Cigarette Use: not used alcohol intake: current alcohol intake frequency: holidays/special occasions only details: social substance use type: does not use caffeine: Yes what type of physical activity do you participate in: none and walking frequency: 1-2 times per week seatbelt use: always do you feel safe at home: Yes additional social history: Single HPI HPI Details: MARCELINO ARAIZA, is a 48 F who presents to the office today for follow up. FH paternal grandmo (more content not included)... [facility] 36on 05-26-2024 36 [facility] 36 Prescription Request : Last medication check: 05/17/24 Last physical exam: 11/10/23 Next scheduled appointment: 11/15/24 Last date of refill on this medication 04/30/23 [facility] 36 Prescription Request : Last medication check: 05/17/24 Last physical exam: 11/10/23 Next scheduled appointment: 11/15/24 Last date of refill on this medication not found [facility] 36on 05-22-2024 36 Rx sent. Follow up a s scheduled. [facility] 36 Prescription Request : Last medication check: 05/17/24 Last physical exam: 11/10/23 Next scheduled appointment: 11/15/24 Last date of refill on this medication 12/08/23 90 and 1 refill [facility] Office Visiton 05-17-2024 Follow-up visit [id number] Harriett Araiza 1975 F Date Provider Department Center 05/17/2024 [id number]-ASIZVASHLEY GMOEZ [facility] Family History Problem Relation Age of Onset Hypertension Mother Cancer Maternal Grandmother Cancer Paternal Grandfather Heart disease Paternal Grandmother Family Status - Relation Status Age at Mother Maternal Grandmother Paternal Grandfather Paternal Grandmother Level of Service:60722 [place] OFFICE/OUTPATIENT ESTABLISHED MOD MDM 30 MIN Reason for Visit and Comments: Blood Work [072464] Medication Check [1018687518] Anxiety [9] Depression [32] Hypertension [095246] GERD [230828] Obesity [2457804210] Vitamin D Deficiency [413] Health Maintenance [872] - Mammo- had done at [facility] Progress Noteon 05-17-2024 Progress Note 05/17/2024 Marcelino Araiza (: 1975) is a 48 y.o. female , Established patient, here for evaluation of the following chief complaint(s): Blood Work, Medication Check, Anxiety, Depression, Hypertension, GERD, Obesity, Vitamin D Deficiency, and Health Maintenance (Mammo- had done at [facility] ) ASSESSMENT/PLAN: 1. Vitamin D deficiency - Comprehensive metabolic panel - Vitamin D Deficiency Screening (Vit D 25) - Symptoms stable. Not currently taking Vitamin D daily. Will notify of blood work results and provide recommendations accordingly. 2. Primary hypertension - Comprehensive metabolic panel - Stable with Lisinopril. Will continue current treatment plan. 3. Osteoarthritis of both knees, unspecified osteoarthritis type - Comprehensive metabolic panel - Stable with Meloxicam and PRN Cyclobenzaprine. Will continue current treatment plan. Follow up with specialist as directed. 4. Inflammatory polyarthropathy (HCC) - Comprehensive metabolic panel - Stable with Meloxicam and PRN Cyclobenzaprine. Will continue current treatment plan. Follow up with specialist as directed. 5. Class 2 obesity due to excess calories without serious comorbidity with body mass index (BMI) of 37.0 to 37.9 in adult - Comprehensive metabolic panel - Encouraged a healthy diet and regular exercise. 6. Irritable bowel syndrome with both constipation and diarrhea - Comprehensive metabolic panel - Stable. Follow up with specialist as directed. Continue Carafate as prescribed. 7. Gastroesophageal reflux disease, unspecified whether esophagitis present - Comprehensive metabolic panel - Stable with Protonix. Follow up with specialist as directed. 8. Mild intermittent asthma without complication - Comprehensive metabolic panel - Stable with PRN Albuterol. Will continue current treatment plan. 9. Depressive disorder - Comprehensive metabolic panel - Stable with Prozac and Wellbutrin. Will continue current treatment plan. 10. Anxiety - Comprehensive metabolic panel - Stable with Prozac and Wellbutrin. Will continue current treatment plan. 11. Elevated LDL cholesterol level - Lipid panel - Comprehensive metabolic panel - Will notify of blood work results and provide recommendations accordingly. Follow up in about 6 months (around 11/14/2024) for annual physical and fasting blood work. SUBJECTIVE/OBJECTIVE: JUSTO Elroy Cochran presents today for follow up on her chronic health conditions. Vitamin D Deficiency: Has not been taking 2,000 units of Vitamin D OTC regularly. Level stable at 41 ng/mL on 11/10/23. Will recheck levels today. Hypertension: Takes Lisinopril daily as prescribed. Does not check her blood pressure at home. Her BP is stable today at 136/72. Arthritis/Inflammatory Polyarthropathy: Continues to take her daily Meloxicam and feels this has helped. Saw an ortho specialist for joint pain and it was recommended she see a block layer- saw them in November. Will use Cyclobenzaprine as needed and this helps as well. Obesity: Denies regular exercise but is active around the house. Has not been eating as healthy. Knows she can do better. IBS/GERD: Taking Protonix 20 mg twice daily and feels symptoms are stable. Following up with GI- has been given strict dietary restrictions. Bowels have been stable as long as she is careful with what she eats. Was started on Carafate and was told to follow up again within the next 1-2 months. Asthma: Medications used for maintenance include: Albuterol. Needs to use rescue inhaler less than 1-2 times per month. Daytime symptoms in the past 2-4 weeks: none. Number of nighttime awakenings coughing in the past 2-4 weeks: none. Limitations of activities due to asthma include: none. Number of asthma exacerbations over the past 6-12 months requiring oral systemic corticosteroids: yes- in the spring. Understands how to use inhalers as directed and demonstrated proper inhaler technique. Depression/Anxiety: Taking her Prozac and Wellbutrin daily as prescribed and feels symptoms are stable. Her LDL cholesterol was elevated at 113 back in October and it was recommended she have her levels rechecked in 6 months for follow up. Will recheck this today. Component Ref Range & Units 6 mo ago 1 yr ago CHOLESTEROL, TOTAL <200 mg/dL 196 169 HDL CHOLESTEROL > OR = 50 mg/dL 63 51 TRIGLYCERIDES <150 mg/dL 101 104 LDL-CHOLESTEROL mg/dL (calc) 113 High 98 CM CHOL/HDLC RATIO <5.0 (calc) 3.1 3.3 NON HDL CHOLESTEROL <130 mg/dL (calc) 133 High 118 CM Health Maintenance: Current on her pneumococcal vaccinations- PCV20 in 11/10/23. Pap: 07/14/23. Mammogram: 05/03/24- normal findings. Colonoscopy: 11/07/20- repeat 5 years. Tdap current: 10/30/22. Fully vaccinated for Hep B. Vaccinated for COVID-19 x3 with most recent dose on 02/11/21- declines additional doses. Flu vaccine current: 12/31/23. Review of Systems Constitutional: Negative for chills and fever. Respiratory: (more content not included)... [facility] Progress Note Patient verified by last name and . [facility] 36on 05-15-2024 36 She is due to have h er cholesterol levels rechecked so I recommend she come to the office for her visit. [facility] SCRN MAMM (CAD)W/SILVIO BILATo n 05-03-2024 SCRN MAMM (CAD)W/SILVIO BILAT [facility] Imaging Services [address] [place] [address] SCRN MAMM (CAD)W/SILVIO BILAT MR#: [id number] Acct: [id number] Name: MARCELINO ARAIZA Rep #: [id number] : 1975 F 48 From: Shaquille mason MD PCP: DUSTY LeC Status: [facility] Study: SCRN MAMM (CAD)W/SILVIO BILAT Date of Exam: 08/20 Exam# [id number] Ordering Dr: Ashley Gomez NP PHOTO PRINTER-C PROCEDURE: SCRN MAMM (CAD)W/SILVIO BILAT REASON FOR EXAM: F, Age 48 y/o, routine mammographic follow-up. TECHNIQUE: Bilateral screening digital breast tomosynthesis with 2D and 3D images. Computer aided detection. COMPARISON: Prior exam(s) dating back to prior study dated April 30, 2023.. FINDINGS: The breasts are heterogeneously dense which may obscure small masses. Stable fat containing axillary lymph nodes. No suspicious masses, areas of developing architectural distortion, or suspicious calcifications. BI/SCRN MAMM (CAD)W/SILVIO BILAT IMPRESSION: BI-RADS 2: BENIGN. RECOMMEND ANNUAL MAMMOGRAPHIC SCREENING. Follow-up code: Routine Follow-up The patient will be notified of the results by letter. Reading Location: [facility] CC: PHOTO PRINTER-C Ashley Gomez Brazing Machine Operator Automatic: Signed [facility] L/S Spine Min 4 Viewson 03-30 L/S Spine Min 4 Views [facility]iology [address] [place] [address] L/S Spine Min 4 Views MR#: [id number] Acct: [id number] Name: MARCELINO ARAIZA Rep #: [id number] : 1975 F 48 From: Sina Sanchez PCP: TEJINDER Le Status: DEP AMB Study: L/S Spine Min 4 Views Date of Exam: 04/21/24 Exam# [id number] Ordering Dr: Dina Ramos [id number] INDICATION: pain -- please do upright AP, LAT, flex/ext EXAMINATION/TECHNIQUE: X-RAY - XR Spine Lumbar Min 4 Views COMPARISON: No relevant prior comparison study available FINDINGS: VERTEBRAE: Preserved vertebral body height. No fracture. No spondylolisthesis. Preservation of the normal lumbar lordosis. No significant facet arthropathy. DISCS: Disc spaces are maintained. INCLUDED ABDOMEN: Included bowel gas pattern is non-obstructive. RAD/L/S Spine Min 4 Views IMPRESSION: No evidence of lumbar spinal fracture or spondylolisthesis. Electronically Signed: Sina Walsh MD at 16:32 EST Reading Location ID and State: [facility] / [place] , Service support , CC: TEJINDER Gomez; JEANETH Pino Brazing Machine Operator Automatic: Signed [facility] Orthopedic Visit Reporton Orthopedic Visit Report [facility] [address] [place] [address] OFFICE VISIT Date of Service: 04/21/24 MR#: [id number] Acct: [id number] Name: MARCELINO ARAIZA Rep #: [id number] : 1975 Provider: JEANETH Pino Age/Sex: 48/F Location[facility] Status: Signed Intake Vital Signs 02/17/24 18:22 Height 5 ft 8 in Intake Visit Reasons: LUMBAR SPINE Chief Complaint: lumbar spine Is patient in pain?: Yes (lumbar spine ) Pain scale (1-10): 7 Allergies ofloxacin Allergy (Severe, Verified 04/21/24 10:24) SWELLING Environmental Allergies: Uncoded Allergy (Intermediate, Verified 04/21/24 10:24) Itching Medications ???Medication ???Instructions ???Recorded ???Confirmed ???Type albuterol sulfate 90 mcg/actuation 2 puff inhalation Q6H PRN 12/10/21 04/21/24 Rx aerosol inhaler shortness of breath or wheezing #8.5 grams dicyclomine 10 mg capsule 10 mg PO TID PRN abdominal pain 06/03/22 04/21/24 History bupropion HCl 300 mg 24 hr tablet, 300 mg PO QAM #90 tabs 06/24/22 04/21/24 Rx extended release (Wellbutrin XL) lisinopril 5 mg tablet 5 mg PO DAILY #30 tabs 08/13/22 04/21/24 Rx fluoxetine 40 mg capsule 40 mg PO DAILY #90 caps 09/21/22 04/21/24 Rx albuterol sulfate 2.5 mg/0.5 mL 5 mg inhalation Q6H PRN shortness 09/24/22 04/21/24 Rx solution for nebulization of breath or wheezing #30 ea fluticasone propionate 50 1 spray intranasal DAILY PRN 06/03/23 04/21/24 History mcg/actuation nasal allergy symptoms spray,suspension (Flonase Allergy Relief) meloxicam 15 mg tablet 15 mg PO DAILY Pain 06/03/23 04/21/24 History multivitamin-ferrous 1 tab PO DAILY 06/03/23 04/21/24 History fumarate-folic acid 18 mg-400 mcg tablet (Centrum Complete) clindamycin phosphate 1 % topical 1 applic topical BID 07/04/23 04/21/24 History gel cream base no.175 (bulk) 1 applic topical .BIW 07/04/23 04/21/24 History (Versatile Rich topical cream) triamcinolone acetonide 0.1 % 1 applic topical PRN 07/04/23 04/21/24 History topical cream estradiol 0.01% (0.1 mg/gram) See Rx Instructions vaginal 11/22/23 04/21/24 History vaginal cream .COMPLEX ondansetron 4 mg disintegrating 4 mg PO TID PRN nausea and 02/13/24 04/21/24 Rx tablet vomiting #21 tabs lidocaine 5 % topical patch 1 patch topical DAILY #15 ea 02/17/24 04/21/24 Rx (Lidoderm) fluoxetine 20 mg capsule 20 mg PO QDAY 04/05/24 04/21/24 History sucralfate 100 mg/mL oral 10 ml PO BID 1 month #600 mL 04/05/24 04/21/24 Rx suspension (Carafate) pantoprazole 20 mg tablet,delayed 20 mg PO BID #60 tabs 04/13/24 04/21/24 Rx release cyclobenzaprine 5 mg tablet 5 mg PO TID PRN muscle spasm #30 04/21/24 04/21/24 Rx tabs PFSH Medical History Pelvic pain Left shoulder pain Osteoarthritis of right knee Right knee pain Urinary tract infection Gross hematuria Lesion of bladder Wears glasses Anxiety Alcohol use History of steroid therapy Arthritis Bladder disease Easy bruising Back pain Difficulty swallowing History of IBS Gastric reflux Non-smoker Hypertension History of nasal obstruction Nausea Bloating History of skin cancer IBS (irritable bowel syndrome) History of gastrointestinal disorder Hx of carpal tunnel syndrome Hx: UTI (urinary tract infection) Hx of seasonal allergies Cough Herpes zoster Menorrhagia with regular cycle Asthma Anemia Depression Acid reflux Vitamin D deficiency Chronic diarrhea History of anxiety Surgical History History of esophagogastroduodenoscopy (EGD) Hx of colonoscopy S/P endometrial ablation Status post hysteroscopy History of tonsillectomy History of carpal tunnel surgery Hx of cholecystectomy Family History Grandmother Heart disease Colon cancer Diabetes Grandmother Diabetes Father Rheumatoid arthritis Mother Anxiety Arthritis Depression Brother Asthma Allergies Grandfather Cancer Social History adopted: No household members: family housing: apartment number of children: 3 current occupational status: employed current occupation: [employer]- Patient Liason sexually active: Yes Smoking Status: Never smoker Electronic Cigarette Use: not used alcohol intake: current alcohol intake frequency: holidays/special occasions only details: social substance use type: does not use caffeine: Yes what type of physical activity do you participate in: none and walking frequency: 1-2 times per week seatbelt use: always do you feel safe at home: Yes additional social history: Single HPI LUMBAR SPINE Details: This docu (more content not included)... [facility] 36on 04-17-2024 36 Sent via [employer]. [facility] 36 Doesn't look like gadiel has an active order in place. Can we place an order for her? Thanks! [facility] 36on 04-12-2024 36 Can we check with he r pharmacy please? Thank you. [facility] 36 Should have refills available for all of these prescriptions. [facility] 36 Prescription Request : Last medication check: 06/18/23 Last physical exam: 11/10/23 Next scheduled appointment: 05/17/24 Last date of refill on this medication Wellbutrin 12/27/23, Prozac 20mg and 40mg 02/25/24, Meloxicam 02/28/24 [facility] Gastroenterology Visit Repor ton 04-05-2024 Gastroenterology Visit Report [facility] [address] [place] [address] OFFICE VISIT Date of Service: 04/05/24 MR#: [id number] Acct: [id number] Name: MARCELINO ARAIZA Rep #: [id number] : 1975 Provider: Tanna Tam DO Age/Sex: 48/F [facility] [facility] Status: Signed Intake Vital Signs 07/14/23 09:43 02/17/24 18:22 Height 5 ft 8 in 5 ft 8 in Intake Visit Reasons: 6 Month f/u Allergies ofloxacin Allergy (Severe, Verified 02/17/24 18:22) SWELLING Environmental Allergies: Uncoded Allergy (Intermediate, Verified 02/17/24 18:22) Itching Medications ???Medication ???Instructions ???Recorded ???Confirmed ???Type albuterol sulfate 90 mcg/actuation 2 puff inhalation Q6H PRN 12/10/21 04/05/24 Rx aerosol inhaler shortness of breath or wheezing #8.5 grams dicyclomine 10 mg capsule 10 mg PO TID PRN abdominal pain 06/03/22 04/05/24 History bupropion HCl 300 mg 24 hr tablet, 300 mg PO QAM #90 tabs 06/24/22 04/05/24 Rx extended release (Wellbutrin XL) lisinopril 5 mg tablet 5 mg PO DAILY #30 tabs 08/13/22 04/05/24 Rx fluoxetine 40 mg capsule 40 mg PO DAILY #90 caps 09/21/22 04/05/24 Rx albuterol sulfate 2.5 mg/0.5 mL 5 mg inhalation Q6H PRN shortness 09/24/22 04/05/24 Rx solution for nebulization of breath or wheezing #30 ea fluticasone propionate 50 1 spray intranasal DAILY PRN 06/03/23 04/05/24 History mcg/actuation nasal allergy symptoms spray,suspension (Flonase Allergy Relief) meloxicam 15 mg tablet 15 mg PO DAILY Pain 06/03/23 04/05/24 History multivitamin-ferrous 1 tab PO DAILY 06/03/23 04/05/24 History fumarate-folic acid 18 mg-400 mcg tablet (Centrum Complete) clindamycin phosphate 1 % topical 1 applic topical BID 07/04/23 04/05/24 History gel cream base no.175 (bulk) 1 applic topical .BIW 07/04/23 04/05/24 History (Versatile Rich topical cream) triamcinolone acetonide 0.1 % 1 applic topical PRN 07/04/23 04/05/24 History topical cream estradiol 0.01% (0.1 mg/gram) See Rx Instructions vaginal 11/22/23 04/05/24 History vaginal cream .COMPLEX ondansetron 4 mg disintegrating 4 mg PO TID PRN nausea and 02/13/24 04/05/24 Rx tablet vomiting #21 tabs cyclobenzaprine 5 mg tablet 5 mg PO TID PRN muscle spasm #12 02/17/24 04/05/24 Rx tabs lidocaine 5 % topical patch 1 patch topical DAILY #15 ea 02/17/24 04/05/24 Rx (Lidoderm) pantoprazole 20 mg tablet,delayed 20 mg PO BID #60 tabs 02/28/24 04/05/24 Rx release fluoxetine 20 mg capsule 20 mg PO QDAY 04/05/24 04/05/24 History sucralfate 100 mg/mL oral 10 ml PO BID 1 month #600 mL 04/05/24 04/05/24 Rx suspension (Carafate) [facility] Medical History (Updated 04/05/24 @ 10:[address] Starr Friend, DO) Pelvic pain Left shoulder pain Osteoarthritis of right knee Right knee pain Urinary tract infection Gross hematuria Lesion of bladder Wears glasses Anxiety Alcohol use History of steroid therapy Arthritis Bladder disease Easy bruising Back pain Difficulty swallowing History of IBS Gastric reflux Non-smoker Hypertension History of nasal obstruction Nausea Bloating History of skin cancer IBS (irritable bowel syndrome) History of gastrointestinal disorder Hx of carpal tunnel syndrome Hx: UTI (urinary tract infection) Hx of seasonal allergies Cough Herpes zoster Menorrhagia with regular cycle Asthma Anemia Depression Acid reflux Vitamin D deficiency Chronic diarrhea History of anxiety Surgical History History of esophagogastroduodenoscopy (EGD) Hx of colonoscopy S/P endometrial ablation Status post hysteroscopy History of tonsillectomy History of carpal tunnel surgery Hx of cholecystectomy Family History Grandmother Heart disease Colon cancer Diabetes Grandmother Diabetes Father Rheumatoid arthritis Mother Anxiety Arthritis Depression Brother Asthma Allergies Grandfather Cancer Social History adopted: No household members: family housing: apartment number of children: 3 current occupational status: employed current occupation: [employer]- Patient Liason sexually active: Yes Smoking Status: Never smoker Electronic Cigarette Use: not used alcohol intake: current alcohol intake frequency: holidays/special occasions only details: social substance use type: does not use caffeine: Yes what type of physical activity do you participate in: none and walking frequency: 1-2 times per week seatbelt use: always do you feel safe at home: Yes additional social history: Single HPI HPI Details: MARCELINO ARAIZA, is a 48 F who presents to the office today for follow up. FH paternal (more content not included)... [facility] 03-09-2024 36 Prescription Request : Last medication check: 06/18/23 Last physical exam: 11/10/23 Next scheduled appointment: 05/17/24 Last date of refill on this medication 03/30/23 18g 2 refills [facility] 2024 36 Reviewed chart. Refi ll appropriate. RX sent. [facility] 36 Prescription Request : Last medication check: 04/28/2023 Last physical exam: 11/10/2023 Next scheduled appointment: 05/17/2024 Last date of refill on this medication: 08/13/2023 Normal [facility] Pelvic w/ Transvaginalon Pelvic w/ Transvaginal [facility] Imaging Services [address] [place] [address] Pelvic w/ Transvaginal MR#: [id number] Acct: [id number] Name: MARCELINO ARAIZA Rep #: [id number] : 1975 F 48 From: Shaquille mason MD PCP: TEJINDER Le Status: REG CLI Study: Pelvic w/ Transvaginal Date of Exam: 02/28/24 Exam# [id number] Ordering Dr: Chrystal Conteh DO [id number] STUDY: ULTRASOUND OF THE FEMALE PELVIS - COMPLETE REASON FOR EXAM: Female, 48 years old. Left ovarian cyst LMP: No recent LMP. History of endometrial ablation. TECHNIQUE: Transabdominal and Transvaginal TECHNICAL QUALITY: Adequate. COMPARISON: Comparison is made with prior study dated September 16, 2022. FINDINGS: The uterus is anteverted and is in a midline position. The uterus measures 7.9 cm x 4.5 cm x 3.4 cm. There is a Nabothian cyst of the cervix. The endometrium measures 6 mm in thickness, and is hyperechoic. There is no demonstrated endometrial mass. Heterogeneous appearance of the myometrium. I.U.D. - The patient does not have an I.U.D. The right ovary is visualized. The right ovary measures 2.6 cm x 1.7 cm x 1.2 cm. There is no right ovarian cyst or ovarian mass. There is no visualized right adnexal mass or complex lesion. There is normal arterial and normal venous vascularity. The left ovary is visualized. The left ovary measures 4 cm x 2.7 cm x 1.4 cm. There are 2 left ovarian follicles. The larger measures 1.6 cm x 1.5 cm x 1.16. There is no visualized left adnexal mass or complex lesion. There is normal arterial and normal venous vascularity. There is no fluid in the cul-de-sac. The pre void volume of the bladder was 100 ml. US/Pelvic w/ Transvaginal IMPRESSION: Left ovarian follicles. Heterogeneous appearance of the myometrium. Electronically Signed: Shaquille Menendez MD at 14:54 EST Reading Location ID and State: [facility] / [place] , Service support , CC: TEJINDER Gomez; Dr. Chrystal Conteh DO Brazing Machine Operator Automatic: Signed Normal [facility] Urinalysis, Completeon 02-27 BACTERIA Normal None Seen [facility] Comment on above: Order Comment: YUSUF LANCASTEROR TO SPECIFY Result Comment: CROS SED OVER BY REGISTRATION, NO SPECIMEN COLLECTED. CATIE FROM OFFICE LAB IS GORAN HAVE OFFICE PUT THE ORDERS BACK IN. Performed By: #### L 400.0001 ####[facility] [address] [place], [place], [id number] BILIRUBIN URINE Normal Negative [facility] Comment on above: Order Comment: YUSUF CTOR TO SPECIFY Result Comment: CROS SED OVER BY REGISTRATION, NO SPECIMEN COLLECTED. CATIE FROM OFFICE LAB IS GONNA HAVE OFFICE PUT THE ORDERS BACK IN. Performed By: #### L 400.0001 ####[facility] [address] [place], [place], [address] Clarity (U) Normal Clear [facility] Comment on above: Order Comment: COLLE CTOR TO SPECIFY Result Comment: CROS SED OVER BY REGISTRATION, NO SPECIMEN COLLECTED. CATIE FROM OFFICE LAB IS GONNA HAVE OFFICE PUT THE ORDERS BACK IN. Performed By: #### L 400.0001 ####[facility] [address] [place], [address] Color (U) Normal Yellow [facility] Comment on above: Order Comment: COLLE CTOR TO SPECIFY Result Comment: CROS SED OVER BY REGISTRATION, NO SPECIMEN COLLECTED. CATIE FROM OFFICE LAB IS GONNA HAVE OFFICE PUT THE ORDERS BACK IN. Performed By: #### L 400.0001 ####[facility] [address] [place], [address] EPI,SQUAMOUS Normal 5-10 [facility] Comment on above: Order Comment: COLLE CTOR TO SPECIFY Result Comment: CROS SED OVER BY REGISTRATION, NO SPECIMEN COLLECTED. CATIE FROM OFFICE LAB IS GONNA HAVE OFFICE PUT THE ORDERS BACK IN. Performed By: #### L 400.0001 ####[facility] [address] [place], [address] GLUCOSE, UR Normal Normal [facility] Comment on above: Order Comment: COLLE CTOR TO SPECIFY Result Comment: CROS SED OVER BY REGISTRATION, NO SPECIMEN COLLECTED. CATIE FROM OFFICE LAB IS GONNA HAVE OFFICE PUT THE ORDERS BACK IN. Performed By: #### L 400.0001 ####[facility] [address] [place], [address] KETONE UR Normal Negative [facility] Comment on above: Order Comment: COLLE CTOR TO SPECIFY Result Comment: CROS SED OVER BY REGISTRATION, NO SPECIMEN COLLECTED. CATIE FROM OFFICE LAB IS GONNA HAVE OFFICE PUT THE ORDERS BACK IN. Performed By: #### L 400.0001 ####[facility] [address] [place], [address] LEUK ESTERASE Normal Negative [facility] Comment on above: Order Comment: COLLE CTOR TO SPECIFY Result Comment: CROS SED OVER BY REGISTRATION, NO SPECIMEN COLLECTED. CATIE FROM OFFICE LAB IS GONNA HAVE OFFICE PUT THE ORDERS BACK IN. Performed By: #### L 400.0001 ####[facility] [address] [place], [address] Mucus Ql (Urine sed) Normal [facility] Comment on above: Order Comment: COLLE CTOR TO SPECIFY Result Comment: CROS SED OVER BY REGISTRATION, NO SPECIMEN COLLECTED. CATIE FROM OFFICE LAB IS GONNA HAVE OFFICE PUT THE ORDERS BACK IN. Performed By: #### L 400.0001 ####[facility] [address] [place], [address] Nitrite Ql (U) Normal Negative [facility] Comment on above: Order Comment: COLLE CTOR TO SPECIFY Result Comment: CROS SED OVER BY REGISTRATION, NO SPECIMEN COLLECTED. CATIE FROM OFFICE LAB IS GONNA HAVE OFFICE PUT THE ORDERS BACK IN. Performed By: #### L 400.0001 ####[facility] [address] [place], [address] OCCULT BLOOD-UR Normal Negative [facility] Comment on above: Order Comment: COLLE CTOR TO SPECIFY Result Comment: CROS SED OVER BY REGISTRATION, NO SPECIMEN COLLECTED. CATIE FROM OFFICE LAB IS GONNA HAVE OFFICE PUT THE ORDERS BACK IN. Performed By: #### L 400.0001 ####[facility] [address] [place], [address] pH UR Normal 5.0 - 8.0 [facility] Comment on above: Order Comment: COLLE CTOR TO SPECIFY Result Comment: CROS SED OVER BY REGISTRATION, NO SPECIMEN COLLECTED. CATIE FROM OFFICE LAB IS GONNA HAVE OFFICE PUT THE ORDERS BACK IN. Performed By: #### L 400.0001 ####[facility] [address] [place], [address] PROT DIPSTX Normal Negative [facility] Comment on above: Order Comment: COLLE CTOR TO SPECIFY Result Comment: CROS SED OVER BY REGISTRATION, NO SPECIMEN COLLECTED. CATIE FROM OFFICE LAB IS GONNA HAVE OFFICE PUT THE ORDERS BACK IN. Performed By: #### L 400.0001 ####[facility] [address] [place], [address] RBC Normal 0-5 [facility] Comment on above: Order Comment: COLLE CTOR TO SPECIFY Result Comment: CROS SED OVER BY REGISTRATION, NO SPECIMEN COLLECTED. CATIE FROM OFFICE LAB IS GONNA HAVE OFFICE PUT THE ORDERS BACK IN. Performed By: #### L 400.0001 ####[facility] [address] [place], [address] SP.GR. DIPSTX Normal 1.002-1.03 0 [facility] Comment on above: Order Comment: COLLE CTOR TO SPECIFY Result Comment: CROS SED OVER BY REGISTRATION, NO SPECIMEN COLLECTED. CATIE FROM OFFICE LAB IS GONNA HAVE OFFICE PUT THE ORDERS BACK IN. Performed By: #### L 400.0001 ####[facility] [address] [place], [address] UR Preservative Normal [facility] Comment on above: Order Comment: COLLE CTOR TO SPECIFY Result Comment: CROS SED OVER BY REGISTRATION, NO SPECIMEN COLLECTED. CATIE FROM OFFICE LAB IS GONNA HAVE OFFICE PUT THE ORDERS BACK IN. Performed By: #### L 400.0001 ####[facility] [address] [place], [address] UROBILI Normal Normal [facility] Comment on above: Order Comment: COLLE CTOR TO SPECIFY Result Comment: CROS SED OVER BY REGISTRATION, NO SPECIMEN COLLECTED. CATIE FROM OFFICE LAB IS GONNA HAVE OFFICE PUT THE ORDERS BACK IN. Performed By: #### L 400.0001 ####[facility] [address] [place], [address] WBC Normal 0-5 [facility] Comment on above: Order Comment: COLLE CTOR TO SPECIFY Result Comment: CROS SED OVER BY REGISTRATION, NO SPECIMEN COLLECTED. CATIE FROM OFFICE LAB IS GONNA HAVE OFFICE PUT THE ORDERS BACK IN. Performed By: #### L 400.0001 ####[facility] [address] [place], [address] Progress Noteon 02-25-2024 Progress Note 02/25/2024 Marcelino Araiza (: 1975) is a 48 y.o. female , Established patient, here for evaluation of the following chief complaint(s): Follow-up, Fatigue, Depression, and Anxiety Patient was identified and seen today via Telehealth by agreement and consent. I used the following Telehealth technology: Audio and video capabilities. Patient location: Patient Location: Home. This patient encounter is appropriate and reasonable under the circumstances: patient preference . The patient has been advised of the potential risks and limitations of this mode of treatment (including but not limited to the absence of in-person examination) and has agreed to be treated in a remote fashion in spite of them. Any and all of the patient's/patient's family's questions on this issue have been answered and I have made no promises or guarantees to the patient. The patient has also been advised to contact this office for worsening conditions or problems, and seek emergency medical treatment and/or call 911 if the patient deems either necessary. The patient stated that they are currently in the [facility]. If the patient is a minor, permission has been obtained by the parent or guardian for the patient to receive medical care at this visit. ASSESSMENT/PLAN: 1. Other fatigue - Unchanged. Will resume her 60 mg dose of Prozac. Discussed taking a Vitamin D supplement and a B-complex vitamin. - Discussed signs and symptoms warranting follow up in the office- verbalized understanding. 2. Depressive disorder - FLUoxetine (PROzac) 20 MG capsule; Take 1 capsule (20 mg) by mouth daily. Take with 40 mg dose for a total of 60 mg, Starting Wed02/25/2024, Normal - FLUoxetine (PROzac) 40 MG capsule; Take 1 capsule (40 mg) by mouth daily. Take with 20 mg for a total of 60 mg, Starting Wed02/25/2024, Normal - Not as well controlled. Will resume 60 mg dose. 3. Anxiety - FLUoxetine (PROzac) 20 MG capsule; Take 1 capsule (20 mg) by mouth daily. Take with 40 mg dose for a total of 60 mg, Starting Wed02/25/2024, Normal - FLUoxetine (PROzac) 40 MG capsule; Take 1 capsule (40 mg) by mouth daily. Take with 20 mg for a total of 60 mg, Starting Wed02/25/2024, Normal - Not as well controlled. Will resume 60 mg dose. Follow up in 3 months (on 05/17/2024) for Next scheduled follow-up. SUBJECTIVE/OBJECTIVE: JUSTO Cochran presents today for a video virtual visit for follow up on her fatigue. [place] this may be related to her Prozac so she had the dose reduced from 60 mg down to 40 mg a few weeks ago. Has noticed feeling more depressed and sad on the lower dose and her fatigue has not improved. Would like to go back up to 60 mg. Had blood work done within the past month or two showing a normal Vitamin D level, blood count, and chem panel, Normal thyroid function earlier this year. Review of Systems Constitutional: Positive for fatigue. Respiratory: Negative for shortness of breath. Cardiovascular: Negative for chest pain. Psychiatric/Behavioral: Positive for dysphoric mood. Negative for self-injury and suicidal ideas. The patient is not nervous/anxious. There were no vitals filed for this visit. There is no height or weight on file to calculate BMI. Physical Exam Constitutional: General: She is not in acute distress. Appearance: She is not ill-appearing. Pulmonary: Effort: Pulmonary effort is normal. Comments: Speaking in full sentences. Skin: Coloration: Skin is not pale. Findings: No erythema. Neurological: Mental Status: She is alert and oriented to person, place, and time. Psychiatric: Mood and Affect: Mood normal. Behavior: Behavior normal. Thought Content: Thought content normal. Judgment: Judgment normal. Data Reviewed Labs: Imaging/Testing: An electronic signature was used to authenticate this note. Ashley Gomez, TERE - ROSALIA 02/25/2024 10:00 AM Normal [facility] 36on 02-17-2024 36 Patient called and alfredo arroyo like a response [facility], states she is having LUQ pain, nausea, back pain, dizziness. Took zofran but she isn't sure if it helped or not. I let her know I will send this to Dr. Jin for review since Ashley is out and Lucina is still seeing patients. She asked if she needs a CT of the abdomen? Normal [facility] Abdomen/Pelvis W IV Cont ONL Yon 02-17-2024 Abdomen/Pelvis W IV Cont ONLY [facility] Imaging Services [address] [place] [address] [id number] Abdomen/Pelvis W IV Cont ONLY MR#: [id number] Acct: [id number] Name: MARCELINO ARAIZA Rep #: [id number] : 1975 F 48 From: Yung Sanchez PCP: TEJINDER Le Status: REG ER Study: Abdomen/Pelvis W IV Cont ONLY Date of Exam: Exam# [id number] Ordering Dr: Deuce Hernadez DO [id number] INDICATION: fall, ecchymosis to abd anterior. Additional history: Other, Fell On Wednesday.Rt Rib Pain,Abdominal Bruising/Pain. Hx:Htn,Kassidy EXAMINATION: CT ABDOMEN AND PELVIS with CONTRAST - CT Abdomen And Pelvis W/ Contrast Injection TECHNIQUE: Multiple axial images were obtained of the abdomen and pelvis following administration of IV contrast. Planar reconstructions obtained. A radiation dose optimization technique was used for this scan. RADIATION DOSAGE (If Supplied By Facility): CTDIvol = ( 23.39 ) mGy, DLP = ( 1320.63 ) mGycm IV Contrast dosage and agent: 100 mL Isovue-370 Oral contrast: None. COMPARISON: No pertinent previous studies for comparison.. FINDINGS: LOWER CHEST: 1. Lung bases are clear. 2. No cardiomegaly or pericardial effusion. 3. No significant coronary vascular calcifications. HEPATOBILIARY: Liver: The liver is homogeneous and shows no evidence of focal lesion. No evidence of parenchymal laceration or hemorrhage. Gallbladder: Gallbladder is surgically absent. No ductal dilatation. Pancreas: Pancreas is normal size configuration and density. No mass is noted. Spleen: The spleen is homogeneous and normal in size. . No evidence of parenchymal laceration or hemorrhage. BOWEL: Stomach: The stomach is normal in size configuration, no evidence of focal masses, abnormal calcifications. No hiatal hernia noted. Bowel: Small and large have normal configuration, no masses or bowel obstruction noted. Appendix: The visualized appendix has normal appearance.: GENITOURINARY: Adrenals: Both adrenal glands are normal in size. Kidneys: Kidneys appear symmetric in size. No calcifications are seen in the collecting system. There is no hydronephrosis or surrounding fluid. Bladder: Normal Pelvic organs: Normal appearance the uterus, there is a LEFT ovarian cyst measuring 3.2 x 2.5 cm. No follow-up required. No free fluid. RETROPERITONEUM: There is normal appearance of the abdominal aorta and inferior vena cava. LYMPH NODES: No evidence of retroperitoneal or para-aortic masses fluid collections or adenopathy. PERITONEAL CAVITY: No ascites noted ANTERIOR ABDOMINAL WALL: Normal, no hernia identified. BONES AND SOFT TISSUES: 1. No fractures identified involving the lower rib cage bilaterally particularly on the RIGHT. 2. No fractures involving the lumbar spine, sacrum, sacroiliac joints at, pelvis and hips. 3. The skeleton shows no evidence for fractures or destructive lesions. OTHER: None CT/Abdomen/Pelvis W IV Cont ONLY IMPRESSION: 1. No intracranial evidence of acute traumatic injury to the solid organs of the abdomen and pelvis including liver, pancreas, spleen, or kidneys. 2. No bowel obstruction abscess free fluid or free air. 3. No renal calcification or obstructive uropathy. 4. Status post cholecystectomy. No ductal dilatation. 5. LEFT ovarian cyst measuring 3.2 x 2.5 cm. Given patient''s age, recommend establishing follow-up pelvic ultrasound. 6. No bony fractures identified. No rib fractures identified. Incidental Findings Reference Guidance And Recommendations: Ovarian cyst: MANAGEMENT OF OVARIAN CYSTS detected on CT or MRI in asymptomatic women: Early Menopausal *Benign-appearing cyst --- <=3cm: No follow-up --- >3-5cm: Follow-up ultrasound in 6-12 months --- >5cm: Ultrasound *Probably benign cyst --- <=3cm: No follow-up --- >3cm: Ultrasound Note: The recommendations are offered as general guidance and do not necessarily apply to all patients. Abdoul Casillas, et al. (2019). Simple adnexal cysts: SRU consensus conference update on follow-up and reporting. Radiology, 293(2), 359?371. [email or web address]://doi.org/10.1148/rad [email or web address] Electronically Signed: Yung Penaloza MD at 21:17 EST , CC: TEJINDER Gomez; Dr. Deuce Hernadez, Brazing Machine Operator Automatic: Signed Normal [facility] CBC W/Diff, Automatedon 11-2 Absolute Lymph 2.17 X10 3/uL Normal 0.83-4.51 [facility] Comment on above: Performed By: #### L 501.2450, L500.4050, L100.0100 ####[facility] [address] [place], [address] Absolute Neut 3.8 X10 3/uL Normal 2.0-7.7 [facility] Comment on above: Performed By: #### L 501.2450, L500.4050, L100.0100 ####[facility] [address] [place], [address] Basophils/100 WBC (Bld) 1.0 % Normal 0-1 [facility] Comment on above: Performed By: #### L 501.2450, L500.4050, L100.0100 ####[facility] [address] [place], [address] Eosinophils/100 WBC (Bld) 1.3 % Normal 0-5 [facility] Comment on above: Performed By: #### L 501.2450, L500.4050, L100.0100 ####[facility] [address] [place], [address] Erythrocyte distribution width (RBC) [Ratio] 11.9 % Normal 11.6-14.6 [facility] Comment on above: Performed By: #### L 501.2450, L500.4050, L100.0100 ####[facility] [address] [place], [address] Hematocrit (Bld) [Volume fraction] 40.1 % Normal 37-47 [facility] Comment on above: Performed By: #### L 501.2450, L500.4050, L100.0100 ####[facility] [address] [place], [address] Hemoglobin (Bld) [Mass/Vol] 13.9 g/dL Normal 12.0-15.0 [facility] Comment on above: Performed By: #### L 501.2450, L500.4050, L100.0100 ####[facility] [address] [place], [address] IG% 0.100 Normal 0.0-0.9 [facility] Comment on above: Result Comment: IG% - Immature Granulocytes (promyelocytes, myelocytes and metamyelocytes) > 1% indicates that a LEFT SHIFT is Present. Performed By: #### L 501.2450, L500.4050, L100.0100 ####[facility] [address] [place], [address] Lymphocytes/100 WBC (Bld) 32.3 % Normal 19-41 [facility] Comment on above: Performed By: #### L 501.2450, L500.4050, L100.0100 ####[facility] [address] [place], [address] MCH (RBC) [Entitic mass] 31.4 pg Normal 27.0-32.0 [facility] Comment on above: Performed By: #### L 501.2450, L500.4050, L100.0100 ####[facility] [address] [place], [address] MCHC (RBC) [Mass/Vol] 34.7 g/dL Normal 32-36 [facility] Comment on above: Performed By: #### L 501.2450, L500.4050, L100.0100 ####[facility] [address] [place], [address] MCV (RBC) [Entitic vol] 90.7 fL Normal 81-99 [facility] Comment on above: Performed By: #### L 501.2450, L500.4050, L100.0100 ####[facility] [address] [place], [address] Monocytes/100 WBC (Bld) 8.6 % Normal 0-10 [facility] Comment on above: Performed By: #### L 501.2450, L500.4050, L100.0100 ####[facility] [address] [place], [address] Neutrophils/100 WBC (Bld) 56.7 % Normal 47-70 [facility] Comment on above: Performed By: #### L 501.2450, L500.4050, L100.0100 ####[facility] [address] [place], [address] Nucleated RBC (Bld) [#/Vol] 0 10*3/uL Normal 0-5 [facility] Comment on above: Performed By: #### L 501.2450, L500.4050, L100.0100 ####[facility] [address] [place], [address] Platelet mean volume (Bld) [Entitic vol] 9.7 fL Normal 6.2-12.0 [facility] Comment on above: Performed By: #### L 501.2450, L500.4050, L100.0100 ####[facility] [address] [place], [address] Platelets (Bld) [#/Vol] 290 10*3/uL Normal 150-450 [facility] Comment on above: Performed By: #### L 501.2450, L500.4050, L100.0100 ####[facility] [address] [place], [address] RBC (Bld) [#/Vol] 4.42 10*6/uL Normal 4.2-5.4 [facility] Comment on above: Performed By: #### L 501.2450, L500.4050, L100.0100 ####[facility] [address] [place], [address] RDW SD 39.7 fl Normal 35.1-43.9 [facility] Comment on above: Performed By: #### L 501.2450, L500.4050, L100.0100 ####[facility] [address] [place], [address] WBC (Bld) [#/Vol] 6.7 10*3/uL Normal 4.4-11.0 [facility] Comment on above: Performed By: #### L 501.2450, L500.4050, L100.0100 ####[facility] [address] [place], [address] Chest without Contraston Chest without Contrast [facility] Imaging Services [address] [place] [address] Chest without Contrast MR#: [id number] Acct: [id number] Name: MARCELINO ARAIZA Rep #: [id number] : 1975 F 48 From: Yung Sanchez PCP: ETJINDER Le Status: REG ER Study: Chest without Contrast Date of Exam: 02/17/24 Exam# [id number] Ordering Dr: Deuce Hernadez DO [id number] INDICATION: fall rib pain right EXAMINATION: CT CHEST WITHOUT CONTRAST - CT Chest W/O Contrast Injection TECHNIQUE: Helically acquired images were obtained of the chest. A radiation dose optimization technique was used for this scan. IV Contrast dosage and agent: None. COMPARISON: No previous CT of the chest for comparison. FINDINGS: LUNGS, PLEURA AND LARGE AIRWAYS: No masses, consolidation, or edema. No pleural effusion or thickening. No pneumothorax. THYROID: No thyroid lesions. HEART AND PERICARDIUM: Heart size is normal. No pericardial effusion. No coronary vascular calcifications present. VESSELS: Thoracic aorta is not dilated. MEDIASTINUM AND AYLIN: No mediastinal or hilar adenopathy. Esophagus is unremarkable. No hiatal hernia. UPPER ABDOMEN: No acute pathology. BONES: 1. No displaced rib fractures or rib deformity involving the RIGHT and the LEFT rib cage. 2. No fractures involving the sternum. There are degenerative changes however at the sternal angle. 3. Mild thoracic spondylosis without evidence of fracture or acutely acquired canal stenosis. 4. Normal appearance of the visualized shoulders and clavicles. No suspicious lytic or blastic abnormality. CT/Chest without Contrast IMPRESSION: 1. No CT evidence of acute traumatic injury to the chest, no fractures noted. 2. No pulmonary contusion consolidation effusion or pneumothorax. 3. No evidence of acute traumatic injury to the great vessels and mediastinum. Electronically Signed: Yung Penaloza MD at 20:42 EST , CC: TEJINDER Gomez; Dr. Deuce Hernadez DO Brazing Machine Operator Automatic: Signed Normal [facility] Comprehensive Metabolic Prof ilon 02-17-2024 Albumin [Mass/Vol] 3.8 g/dL Normal 3.2-5.0 [facility] Comment on above: Performed By: #### L 501.8386, L500.4050, L100.0100 ####[facility] [address] [place], [address] Albumin/Globulin [Mass ratio] 1.1 {ratio} Normal 0.9-2.4 [facility] Comment on above: Performed By: #### L 501.2450, L500.4050, L100.0100 ####[facility] [address] [place], [address] ALK P 78 U/L Normal 45-117 [facility] Comment on above: Performed By: #### L 501.2450, L500.4050, L100.0100 ####[facility] [address] [place], [address] ALT [Catalytic activity/Vol] 23 U/L Normal 13-56 [facility] Comment on above: Performed By: #### L 501.2450, L500.4050, L100.0100 ####[facility] [address] [place], [address] AST [Catalytic activity/Vol] 17 U/L Normal 15-37 [facility] Comment on above: Performed By: #### L 501.2450, L500.4050, L100.0100 ####[facility] [address] [place], [address] Bilirubin [Mass/Vol] 0.30 mg/dL Normal 0.20-1.00 [facility] Comment on above: Result Comment: For patients on eltrombopag therapy, use of Dimension [place] TBIL is not recommended. Performed By: #### L 501.2450, L500.4050, L100.0100 ####[facility] [address] [place], [address] BUN/CRE 23.3 RATIO High 10-20 [facility] Comment on above: Performed By: #### L 501.2450, L500.4050, L100.0100 ####[facility] [address] [place], [address] CA,Total 9.3 mg/dL Normal 8.5-10.1 [facility] Comment on above: Performed By: #### L 501.2450, L500.4050, L100.0100 ####[facility] [address] [place], [address] Chloride [Moles/Vol] 102 mmol/L Normal 98-107 [facility] Comment on above: Performed By: #### L 501.2450, L500.4050, L100.0100 ####[facility] [address] [place], [address] CO2 [Moles/Vol] 27.0 mmol/L Normal 21.0-32.0 [facility] Comment on above: Performed By: #### L 501.2450, L500.4050, L100.0100 ####[facility] [address] [place], [address] Creatinine [Mass/Vol] 0.77 mg/dL Normal 0.55-1.02 [facility] Comment on above: Result Comment: The validity of the calculated GFR GFRAA in patients over 70 years has not been determined. Clinical correlation is essential. Performed By: #### L 501.2450, L500.4050, L100.0100 ####[facility] [address] [place], [address] ECRCL 118.65 ml/min Normal [facility] Comment on above: Performed By: #### L 501.2450, L500.4050, L100.0100 ####[facility] [address] [place], [address] EST GFR - AA 103 mL/min Normal >60 [facility] Comment on above: Result Comment: Afri can Turkish GFR Calc Performed By: #### L 501.2450, L500.4050, L100.0100 ####[facility] [address] [place], [address] GAP 6 Normal 5-15 [facility] Comment on above: Performed By: #### L 501.2450, L500.4050, L100.0100 ####[facility] [address] [place], [address] GFR/1.73 sq M.predicted among non-blacks MDRD (S/P/Bld) [Vol rate/Area] 85 mL/min/{1.73_m2} Normal >60 [facility] Comment on above: Result Comment: Non- GFR Calc Performed By: #### L 501.2450, L500.4050, L100.0100 ####[facility] [address] [place], [address] Globulin (S) [Mass/Vol] 3.6 g/dL Normal 2.2-4.2 [facility] Comment on above: Performed By: #### L 501.2450, L500.4050, L100.0100 ####[facility] [address] [place], [address] Glucose [Mass/Vol] 85 mg/dL Normal 74-106 [facility] Comment on above: Performed By: #### L 501.2450, L500.4050, L100.0100 ####[facility] [address] [place], [address] Potassium [Moles/Vol] 3.8 mmol/L Normal 3.5-5.1 [facility] Comment on above: Performed By: #### L 501.2450, L500.4050, L100.0100 ####[facility] [address] [place], [address] Sodium [Moles/Vol] 135 mmol/L Low 136-145 [facility] Comment on above: Performed By: #### L 501.2450, L500.4050, L100.0100 ####[facility] [address] [place], [address] T PROT 7.4 g/dL Normal 6.4-8.2 [facility] Comment on above: Performed By: #### L 501.2450, L500.4050, L100.0100 ####[facility] [address] [place], [address] Urea nitrogen [Mass/Vol] 18 mg/dL Normal 7-18 [facility] Comment on above: Performed By: #### L 501.2450, L500.4050, L100.0100 ####[facility] [address] [place], [address] Emergency Department Summary on 02-17-2024 Emergency Department Summary [facility] Medical Records Department [address] [place] [address] Emergency Department Summary 02/17/24 MR#: [id number] Acct: [id number] Name: MARCELINO ARAIZA Rep #: [id number] : 1975 48 From: Deuce Hernadez DO PCP: TEJINDER Le Status:REG ER Location: ED HPI HPI - Fall History of Present Illness Chief Complaint: Fall Narrative Narrative: Patient is a 48-year-old female with a past medical history of IBS, anxiety, alcohol use, asthma, depression who presents to the emergency department the chief complaint of abdominal pain and left- sided rib pain. Patient states that on Wednesday she was standing on a stool when she slipped and landed on her drawer that was pulled out. States that she was seen here on Wednesday and had a head CT however she notes that she refused her other scans at that point time. States that she has worsening abdominal pain and back pain. States that she has had increasing nausea and a few times where she felt like she was going to vomit although she did not. She states that she has a significant bruise across her abdomen. Patient denies any blood thinning medications. [facility] Medical History Left shoulder pain Osteoarthritis of right knee Right knee pain Urinary tract infection Gross hematuria Lesion of bladder Wears glasses Anxiety Alcohol use History of steroid therapy Arthritis Bladder disease Easy bruising Back pain Difficulty swallowing History of IBS Gastric reflux Non-smoker Hypertension History of nasal obstruction Nausea Bloating History of skin cancer IBS (irritable bowel syndrome) History of gastrointestinal disorder Hx of carpal tunnel syndrome Hx: UTI (urinary tract infection) Hx of seasonal allergies Cough Herpes zoster Pelvic pain Menorrhagia with regular cycle Asthma Anemia Depression Acid reflux Vitamin D deficiency Chronic diarrhea History of anxiety Home Medications ???Medication ???Instructions ???Recorded ???Last Taken ???Type albuterol sulfate 90 mcg/actuation 2 puff inhalation Q6H PRN 12/10/21 Unknown Rx aerosol inhaler shortness of breath or wheezing #8.5 grams dicyclomine 10 mg capsule 10 mg PO TID PRN abdominal pain 06/03/22 Unknown History bupropion HCl 300 mg 24 hr tablet, 300 mg PO QAM #90 tabs 06/24/22 07/03/23 Rx extended release (Wellbutrin XL) lisinopril 5 mg tablet 5 mg PO DAILY #30 tabs 08/13/22 07/03/23 Rx ondansetron 4 mg disintegrating 4 mg PO Q8H PRN nausea and 09/01/22 Unknown Rx tablet vomiting #30 tabs fluoxetine 40 mg capsule 40 mg PO DAILY #90 caps 09/21/22 07/03/23 Rx albuterol sulfate 2.5 mg/0.5 mL 5 mg inhalation Q6H PRN shortness 09/24/22 Unknown Rx solution for nebulization of breath or wheezing #30 ea fluticasone propionate 50 1 spray intranasal DAILY PRN 06/03/23 06/09/23 History mcg/actuation nasal allergy symptoms spray,suspension (Flonase Allergy Relief) meloxicam 15 mg tablet 15 mg PO DAILY Pain 06/03/23 06/09/23 History multivitamin-ferrous 1 tab PO DAILY 06/03/23 07/03/23 History fumarate-folic acid 18 mg-400 mcg tablet (Centrum Complete) clindamycin phosphate 1 % topical 1 applic topical BID 07/04/23 Unknown History gel cream base no.175 (bulk) 1 applic topical .BIW 07/04/23 Unknown History (Versatile Rich topical cream) triamcinolone acetonide 0.1 % 1 applic topical PRN 07/04/23 Unknown History topical cream pantoprazole 20 mg tablet,delayed 20 mg PO BID #60 tabs 11/08/23 Unknown Rx release estradiol 0.01% (0.1 mg/gram) See Rx Instructions vaginal 11/22/23 Unknown History vaginal cream .COMPLEX ondansetron 4 mg disintegrating 4 mg PO TID PRN nausea and 02/13/24 Unknown Rx tablet vomiting #21 tabs oxycodone 5 mg tablet 5 mg PO Q6H PRN pain 3 days #12 02/13/24 Unknown Rx tabs cyclobenzaprine 5 mg tablet 5 mg PO TID PRN muscle spasm #12 02/17/24 Unknown Rx tabs lidocaine 5 % topical patch 1 patch topical DAILY #15 ea 02/17/24 Unknown Rx (Lidoderm) Allergy/AdvReac Type Severity Reaction Status Date / Time ofloxacin Allergy Severe SWELLING Verified 02/17/24 18:22 Environmental Allergies: Allergy Intermediate Itching Verified 02/17/24 18:22 Uncoded Family History Grandmother Heart disease Colon cancer Diabetes Grandmother Diabetes Father Rheumatoid arthritis Mother Anxiety Arthritis Depression Brother Asthma Allergies Grandfather Cancer Surgical History History of esophagogastroduodenoscopy (EGD) Hx of colonoscopy S/P endometrial ablation Status post hysteroscopy History of tonsillectomy History of carpal tunnel surgery Hx of cholecystectomy So (more content not included)... Normal [facility] Lipaseon 02-17-2024 Lipase [Catalytic activity/Vol] 38 U/L Normal 13-75 [facility] Comment on above: Result Comment: Edmund alvarez note: LIPASE revised reference range effective 22. New Lipase methodology. Expected to produce lower values than the previous assay method. NEW Reference Range: 13 - 75 U/L Performed By: #### L 501.2450, L500.4050, L100.0100 ####[facility] [address] [place], [address] Urinalysis, Completeon 02-16 BACTERIA 1+ /hpf Normal None Seen [facility] Comment on above: Order Comment: CLEAN CATCH Performed By: #### L 400.0001 #### [facility] [address] [place], [address] EPI,SQUAMOUS 0-5 SEEN Normal 5-10 [facility] Comment on above: Order Comment: CLEAN CATCH Performed By: #### L 400.0001 #### [facility] [address] [place], [address] Mucus Ql (Urine sed) 1+ /hpf Normal [facility] Comment on above: Order Comment: CLEAN CATCH Performed By: #### L 400.0001 #### [facility] [address] [place], [address] RBC 0-5 SEEN Normal 0-5 [facility] Comment on above: Order Comment: CLEAN CATCH Performed By: #### L 400.0001 #### [facility] [address] [place], [address] WBC 0-5 SEEN Normal 0-5 [facility] Comment on above: Order Comment: CLEAN CATCH Performed By: #### L 400.0001 #### [facility] [address] [place], [address] Brain/Head without Contrasto n 02-13-2024 Brain/Head without Contrast [facility] Imaging Services [address] [place] [address] Brain/Head without Contrast MR#: [id number] Acct: [id number] Name: MARCELINO ARAIZA Rep #: [id number] : 1975 F 48 From: Sadie Sanchez PCP: TEJINDER Le Status: REG ER Study: Brain/Head without Contrast Date of Exam: 01/27 10/19 Exam# [id number] Ordering Dr: Chapincito De La Rosa DO [id number] INDICATION: head injury EXAMINATION: CT BRAIN - CT Head or Brain W/O Contrast Injection TECHNIQUE: Multiple axial images were obtained of the head without intravenous contrast. The protocol utilizes one or more of the following dose reduction techniques: automated exposure control, adjustment of mA and/or kV according to patient size,and/or use of iterative reconstruction technique. IV Contrast dosage and agent: None. RADIATION DOSAGE (If Supplied By Facility): CTDIvol = ( 44.99 ) mGy, DLP = ( 829.85 ) mGycm COMPARISON: Prior study dated: 03/17/2013 FINDINGS: BRAIN: No acute bleed. No edema. Freire-white matter differentiation is maintained. VENTRICLES AND SULCI: Not dilated. EXTRA-AXIAL: No hemorrhage, fluid collection, or mass. CALVARIUM / SKULL BASE: Unremarkable. FACE/SINUSES: Unremarkable. SOFT TISSUES: Unremarkable. CT/Brain/Head without Contrast IMPRESSION: No acute abnormality. 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 She states approximately 8 to 10 hours ago she was sitting on a stool when she lost her balance and fell landing on her left side. She reports she struck her head but denies any loss of consciousness. She states there is no history of bleeding disorder nor does she take blood thinners. She states she felt sore following the injury but was able to get back up. She states this evening she tried to sleep and had worsening headache with light sensitivity and nausea. Secondary to the symptoms she was concerned about underlying trauma/injury and therefore comes in for evaluation [facility] Medical History (Updated 02/16/24 @ 04:[address] Chapincito De La Rosa, DO) Left shoulder pain Osteoarthritis of right knee Right knee pain Urinary tract infection Gross hematuria Lesion of bladder Wears glasses Anxiety Alcohol use History of steroid therapy Arthritis Bladder disease Easy bruising Back pain Difficulty swallowing History of IBS Gastric reflux Non-smoker Hypertension History of nasal obstruction Nausea Bloating History of skin cancer IBS (irritable bowel syndrome) History of gastrointestinal disorder Hx of carpal tunnel syndrome Hx: UTI (urinary tract infection) Hx of seasonal allergies Cough Herpes zoster Pelvic pain Menorrhagia with regular cycle Asthma Anemia Depression Acid reflux Vitamin D deficiency Chronic diarrhea History of anxiety Home Medications ???Medication ???Instructions ???Recorded ???Last Taken ???Type albuterol sulfate 90 mcg/actuation 2 puff inhalation Q6H PRN 12/10/21 Unknown Rx aerosol inhaler shortness of breath or wheezing #8.5 grams dicyclomine 10 mg capsule 10 mg PO TID PRN abdominal pain 06/03/22 Unknown History bupropion HCl 300 mg 24 hr tablet, 300 mg PO QAM #90 tabs 06/24/22 07/03/23 Rx extended release (Wellbutrin XL) lisinopril 5 mg tablet 5 mg PO DAILY #30 tabs 08/13/22 07/03/23 Rx ondansetron 4 mg disintegrating 4 mg PO Q8H PRN nausea and 09/01/22 Unknown Rx tablet vomiting #30 tabs fluoxetine 40 mg capsule 40 mg PO DAILY #90 caps 09/21/22 07/03/23 Rx albuterol sulfate 2.5 mg/0.5 mL 5 mg inhalation Q6H PRN shortness 09/24/22 Unknown Rx solution for nebulization of breath or wheezing #30 ea fluticasone propionate 50 1 spray intranasal DAILY PRN 06/03/23 06/09/23 History mcg/actuation nasal allergy symptoms spray,suspension (Flonase Allergy Relief) meloxicam 15 mg tablet 15 mg PO DAILY Pain 06/03/23 06/09/23 History multivitamin-ferrous 1 tab PO DAILY 06/03/23 07/03/23 History fumarate-folic acid 18 mg-400 mcg tablet (Centrum Complete) clindamycin phosphate 1 % topical 1 applic topical BID 07/04/23 Unknown History gel cream base no.175 (bulk) 1 applic topical .BIW 07/04/23 Unknown History (Versatile Rich topical cream) triamcinolone acetonide 0.1 % 1 applic topical PRN 07/04/23 Unknown History topical cream pantoprazole 20 mg tablet,delayed 20 mg PO BID #60 tabs 11/08/23 Unknown Rx release estradiol 0.01% (0.1 mg/gram) See Rx Instructions vaginal 11/22/23 Unknown History vaginal cream .COMPLEX ondansetron 4 mg disintegrating 4 mg PO TID PRN nausea and 02/13/24 Unknown Rx tablet vomiting #21 tabs oxycodone 5 mg tablet 5 mg PO Q6H PRN pain 3 days #12 02/13/24 Unknown Rx tabs Allergy/AdvReac Type Severity Reaction Status Date / Time ofloxacin Allergy Severe SWELLING Verified 02/13/24 22:00 Environmental Allergies: Allergy Intermediate Itching Verified 02/13/24 22:00 Uncoded Family History Grandmother Heart disease Colon cancer Diabetes Grandmother Diabetes Father Rheumatoid arthritis Mother Anxiety Arthritis Depression Brother Asthma Allergies Grandfather Cancer Surgical History History of esophagogastroduodenoscopy (EGD) Hx of colonoscopy S/P endometrial ablation Status post hysteroscopy History of tonsillectomy History of carpal tunnel surgery Hx of cholecystectomy Social History adopted: No household members: family housing: apartment number of children: 3 current occupational status: employed current occupation: [employer]- Patient Liason sexually active: Yes Smoking Status: Never s (more content not included)... Normal [facility] Progress Noteon 02-09-2024 Progress Note Patient verified by last name and . [facility] Progress Note 02/09/2024 Marcelino Araiza (: 1975) is a 48 y.o. female , Established patient, here for evaluation of the following chief complaint(s): Fatigue (States that lately she has felt extremely tired, states that she is getting a good nights sleep but waking up very tired, feels like she has to take a nap every day and take about a 2-3 hour nap each day. 60mg of fluoxetine ) Patient was identified and seen today via Telehealth by agreement and consent. I used the following Telehealth technology: Audio and video capabilities. Patient location: Patient Location: Home. This patient encounter is appropriate and reasonable under the circumstances: Behavioral Health . The patient has been advised of the potential risks and limitations of this mode of treatment (including but not limited to the absence of in-person examination) and has agreed to be treated in a remote fashion in spite of them. Any and all of the patient's/patient's family's questions on this issue have been answered and I have made no promises or guarantees to the patient. The patient has also been advised to contact this office for worsening conditions or problems, and seek emergency medical treatment and/or call 911 if the patient deems either necessary. The patient stated that they are currently in the [facility]. If the patient is a minor, permission has been obtained by the parent or guardian for the patient to receive medical care at this visit. ASSESSMENT/PLAN: 1. Other fatigue - Will reduce Prozac from 60 mg daily to 40 mg and will do a close follow up in 2 weeks. 2. Depressive disorder - Stable. Will reduce dose of Prozac and do a close follow up in 2 weeks. 3. Anxiety - Stable. Will reduce dose of Prozac and do a close follow up in 2 weeks. Follow up in 16 days (on 02/25/2024) for Next scheduled follow-up. SUBJECTIVE/OBJECTIVE: HPI - Marcelino presents today for a video virtual visit with concerns of feeling more tired lately- a few months. Is not sure if it is related to her daily Prozac or not. States she is sleeping well at night. Has been experiencing more vivid dreams at night since increasing her Prozac to 60 mg back in July/August this year. Would like to decrease her Prozac and see if symptoms improve. Feels her depression and anxiety have been stable. I informed her Prozac is typically a stimulating medication and I do not feel this would be associated with her fatigue but she states she generally responds opposite to medications. Of note: normal CBC and Vitamin D level in September this year. Normal TSH in March of this year. See ROS for additional information. Review of Systems Constitutional: Positive for fatigue. Negative for chills and fever. Cardiovascular: Negative for chest pain. Endocrine: Negative for cold intolerance and heat intolerance. There were no vitals filed for this visit. There is no height or weight on file to calculate BMI. Physical Exam Constitutional: General: She is not in acute distress. Appearance: She is not ill-appearing. HENT: Head: Normocephalic and atraumatic. Pulmonary: Effort: Pulmonary effort is normal. Comments: Speaking in full sentences. Skin: Coloration: Skin is not pale. Findings: No erythema or rash. Neurological: Mental Status: She is alert and oriented to person, place, and time. Psychiatric: Mood and Affect: Mood normal. Behavior: Behavior normal. Thought Content: Thought content normal. Judgment: Judgment normal. An electronic signature was used to authenticate this note. Ashley Gomez APRN - ROSALIA 02/09/2024 1:05 PM [facility] 36on 2023 36 Rx sent. Follow up a s scheduled. Normal [facility] 36 Prescription Request : Last medication check: 04/28/2023 Last physical exam: 11/10/2023 Next scheduled appointment: 05/17/2024 Last date of refill on this medication: 07/12/2023 Normal [facility] CCP ANTIBODY IGGOrdered By: Zulma Russo on 12-23-2023 Cyclic citrullinated peptide IgG Qn MYA [facility] Cyclic citrullinated peptide IgG QnOrdered By: Zulma Russo on 12-23-2023 CCP Antibody IgG Qualitative Negative Negative [facility] Interpretation and review of laboratory results Normal [facility] This test is used as aid in diagnosis of Rheumatoid arthritis (RA). A negative result cannot rule out RA where clinically suspected. Clinical correlation is required. The following results were obtained with an [employer] CCP IgG SWETHA. Cyclic Citrullinated Peptide IgG values obtained with different manufacturers' assay methods may not be used interchangeably. The magnitude of the reported IgG levels cannot be correlated to an endpoint titer. [facility] C-REACTIVE PROTEINon 024 CRP [Mass/Vol] mg/dL NINF - 0.9 mg/dL [facility] CNOVon 12-22-2023 CNOV Office Visit (RHEUMN ) MARCELINO ARAIZA ([id number]) 1975 F Date Time Provider Department 12/22/23 9:00 AM FALLON RIVAS RHEUMN During your visit today, we recorded the following information about you: Temperature Pulse Blood pressure Weight 96.6 degrees 97/minute 114/75 111.1 kg Height 1.727 m Fallon Rivas MD 01/09/2024 5:17 PM Signed Marcelino Araiza is a 47 year old female. Consultation was requested by ortho in the setting of polyarthralgia, for an opinion regarding join pain involving hand, knees, shoulders and hip; my final assessment and recommendations will be communicated back to the requesting physician by way of shared medical record, or by letter via fax or US mail. Evaluation Date: 12/22/2023 Chief Complaint: Joint pain HPI: History was obtained from the patient and from outside records. Marcelino Araiza reports that her symptoms are getting worse in the last six months, with daily morning stiffness that lasts more than two hours in the morning, with spontaneous resolution during the day, patient reports pain in both hands, as well as bilateral knees, shoulder and hip. 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 Patient was previously seen in our service in 2019 for possible chondritis in the right ear, patient does reports that still does follow with her ENT, and that occasionally gets R ear pain, denies swelling, redness, or hearing loss. Patient reported stiffness also in her jaw, denies rash, easy sunburn, mouth ulcers, but does reports weight gain. Patient reported that was prescribed prednisone for join pain and noticed resolution of her symptoms during the first tree days on steroids with complete resolution of he joint pain. Review of Systems CONSTITUTION: Negative for: Fever and Recent weight change HEENT: Negative for: Nosebleeds, Mouth sores, Trouble swallowing and Dry mouth RESPIRATORY: Negative for: Cough, Shortness of breath and Pain with breathing GASTROINTESTINAL: Positive for: Diarrhea and Abdominal pain Negative for: Melena and Heartburn MUSCULOSKELETAL: Positive for: Arthralgias, Myalgias, Muscle weakness and Morning Joint Stiffness Negative for: Joint swelling NEUROLOGICAL: Positive for: Headaches and Memory loss Negative for: Numbness SKIN: Negative for: Rash, Skin changes, Hair loss and Nail changes EYES: Positive for: Visual disturbance Negative for: Eye pain, Eye redness and Eye dryness CARDIOVASCULAR: Negative for: Chest pain and Leg swelling GENITOURINARY: Negative for: Dysuria and Hematuria HEMATOLOGIC/LYMPHATIC: Negative for: Swollen glands ROS GENERAL: negative for, malaise, fatigue FEVER: none WEIGHT CHANGE: has gained weight HEAD: negative for, headache ENT: negative for mouth lesions, R ear pain, intermittent without redness or swelling. EYES: negative for , pain, visual blurring NECK: negative for, swelling, tenderness RESPIRATORY: negative for, shortness of breath, pleuritic chest pain CARDIOVASCULAR: negative for, chest pain, palpitations, extremity claudication GASTROINTESTINAL: negative for, abdominal pain, black stools, vomiting URINARY: negative for, dysuria, incontinence MUSCULOSKELETAL: joint pain involving bilateral knee, shoulders, hip and both hands, without tenosynovitis. NEUROLOGIC: negative for, weakness, paresthesias SKIN: negative for, rash, ulcers MOOD/PSYCHIATRIC: sleep disturbance PAST MEDICAL HISTORY: PAST MEDICAL HISTORY Diagnosis Date Anxiety disorder in conditions classified elsewhere Atypical nevi Dr Lim Hemicrania left headache, cervical origin? Herpes zoster without complication 12/2011 left gluteal area IBS (irritable bowel syndrome) alternating Impaired fasting glucose Obesity, unspecified Reactive airway disease with wheezing triggered by URI Skin cancer PAST SURGICAL HISTORY: PAST SURGICAL HISTORY Procedure Laterality Date CARPAL TUNNEL CHOLECYSTECTOMY 2002 Cholecystectomy (lap, with cholangiogram), Dr. Flores COLONOSCOPY 10/2020 years ago EGD 11/07/2020 EXTRACTION, ERUPTED TOOTH OR EXPOSED ROOT (ELEVATION AND/OR FORCEPS REMOVAL) 1995 wisdom teeth PAST SURGICAL HISTORY OF 11/2019 uterine ablation TONSILLECTOMY PRIMARY/SECONDARY AGE 121998 CURRENT MEDICATIONS: Current Outpatient Medications Medication Sig FLUoxetine (PROZAC) 20 mg capsule Take 20 mg by mouth as needed. pantoprazole DR (PROTONIX) 40 mg tablet Take 1 tablet by mouth every afternoon. dicyclomine (BENTYL) 10 mg capsule Take 1 capsule by mouth three times daily as needed (abdominal pain). ondansetron orally disintegrating (ZOFRAN ODT) 4 mg disintegrating tablet Take 1 tablet by mouth every 8 hours as needed for nausea/vomiting. lisinopril (ZESTRIL, PRINIVIL) 5 mg (more content not included)... Normal [facility] CRP SerPl-mCncon 12-22-2023 CRP [Mass/Vol] mg/L Normal <0.9 [facility] Comment on above: Order Comment: Speci men Type: BLOOD SPECIMEN Ordering Facility: [facility] Address: [address] [place] [address] Performed By: #### 1 5, 1987-07, 48992-7 #### [facility] CLIA [id number] [address] [place] [address] [place] Comprehensive metabolic 2000 panelon 12-22-2023 Albumin [Mass/Vol] 4.4 g/dL 3.9 - 4.9 g/dL [facility] ALP [Catalytic activity/Vol] 94 U/L 34 - 123 U/L [facility] ALT [Catalytic activity/Vol] 15 U/L 7 - 38 U/L [facility] Anion gap [Moles/Vol] 12 mmol/L 8 - 15 mmol/L [facility] AST [Catalytic activity/Vol] 18 U/L 13 - 35 U/L [facility] Bilirubin [Mass/Vol] 0.5 mg/dL 0.2 - 1 .3 mg/dL [facility] Calcium [Mass/Vol] 9.3 mg/dL 8.5 - 10. 2 mg/dL [facility] Chloride [Moles/Vol] 101 mmol/L 98 - 10 7 mmol/L [facility] [facility] CO2 [Moles/Vol] 25 mmol/L 22 - 30 mmol/L [facility] Creatinine [Mass/Vol] 0.74 mg/dL 0.58 - 0.96 mg/dL [facility] GFR/1.73 sq M.predicted among non-blacks MDRD (S/P/Bld) [Vol rate/Area] 101 mL/min/{1.73_m2} - PINF [facility] Comment on above: Estimated Glomerular Filtration Rate (eGFR) is calculated using the 2020 CKD-EPI creatinine equation. This equation utilizes serum creatinine, sex, and age as parameters. The creatinine assay has traceable calibration to isotope dilution-mass spectrometry. Refer to KDIGO guidelines for clinical interpretation. In patients with unstable renal function, e.g. those with acute kidney injury, the eGFR may not accurately reflect actual GFR. Glucose [Mass/Vol] 95 mg/dL 74 - 99 mg/dL [facility] Comment on above: The [place] Diabete s Association (ADA) provides guidance for cutoff values for fasting glucose and random glucose. The ADA defines fasting as no caloric intake for at least 8 hours. Fasting plasma glucose results between 100 to 125 mg/dL indicate increased risk for diabetes (prediabetes). Fasting plasma glucose results greater than or equal to 126 mg/dL meet the criteria for diagnosis of diabetes. In the absence of unequivocal hyperglycemia, results should be confirmed by repeat testing. In a patient with classic symptoms of hyperglycemia or hyperglycemic crisis, random plasma glucose results greater than or equal to 200 mg/dL meet the criteria for diagnosis of diabetes. Reference: Standards of Medical Care in Diabetes 2016, [place] Diabetes Association. Diabetes Care. 2016.39(Suppl 1). Potassium [Moles/Vol] 4.6 mmol/L 3.7 - 5.1 mmol/L [facility] Protein [Mass/Vol] 7.2 g/dL 6.3 - 8.0 g/dL [facility] Sodium [Moles/Vol] 138 mmol/L 136 - 144 mmol/L [facility] Urea nitrogen [Mass/Vol] 12 mg/dL 7 - 21 mg/dL [facility] Albumin [Mass/Vol] 4.4 g/dL Normal 3.9-4.9 [facility] Comment on above: Order Comment: Speci men Type: BLOOD SPECIMEN Ordering Facility: [facility] Address: [address] [place], [place] [id number] Performed By: #### 1 1571-07, 1987-07, #### [facility] CLIA [id number] [address] [place], [place] [id number] [place] ALP [Catalytic activity/Vol] 94 U/L Normal 34-123 [facility] Comment on above: Order Comment: Speci men Type: BLOOD SPECIMEN Ordering Facility: [facility] Address: [address] [place] [address] Performed By: #### 1 1571-07, 1987-07, #### [facility] CLIA [id number] [address] [place] [address] [place] ALT [Catalytic activity/Vol] 15 U/L Normal 7-38 [facility] Comment on above: Order Comment: Speci men Type: BLOOD SPECIMEN Ordering Facility: [facility] Address: [address] [place] [address] Performed By: #### 1 1571-07, 1987-07, #### [facility] CLIA [id number] [address] [place] [address] [place] Anion gap [Moles/Vol] 12 mmol/L Normal 8-15 [facility] Comment on above: Order Comment: Speci men Type: BLOOD SPECIMEN Ordering Facility: [facility] Address: [address] [place] [address] Performed By: #### 1 1571-07, 1987-07, #### [facility] CLIA [id number] [address] [place], [place] [address] [place] AST [Catalytic activity/Vol] 18 U/L Normal 13-35 [facility] Comment on above: Order Comment: Speci men Type: BLOOD SPECIMEN Ordering Facility: [facility] Address: [address] [place], [place] [id number] Performed By: #### 1 1571-07, #### [facility] CLIA [id number] [address] [place] [address] [place] Bilirubin [Mass/Vol] 0.5 mg/dL Normal 0.2-1.3 [facility] Comment on above: Order Comment: Speci men Type: BLOOD SPECIMEN Ordering Facility: [facility] Address: [address] [place] [address] Performed By: #### 1 1571-07, 1987-07, #### [facility] CLIA [id number] [address] [place] [address] [place] Calcium [Mass/Vol] 9.3 mg/dL Normal 8.5-10.2 [facility] Comment on above: Order Comment: Speci men Type: BLOOD SPECIMEN Ordering Facility: [facility] Address: [address] [place] [address] Performed By: #### 1 1571-07, #### [facility] CLIA [id number] [address] [place] [address] [place] Chloride [Moles/Vol] 101 mmol/L Normal 98-107 [facility] Comment on above: Order Comment: Speci men Type: BLOOD SPECIMEN Ordering Facility: [facility] Address: [address] [place] [address] Performed By: #### 1 1571-07, 1987-07, #### [facility] CLIA [id number] [address] [place] [address] [place] CO2 [Moles/Vol] 25 mmol/L Normal 22-30 [facility] Comment on above: Order Comment: Speci men Type: BLOOD SPECIMEN Ordering Facility: [facility] Address: [address] [place] [address] Performed By: #### 1 1571-07, 1987-07, #### [facility] CLIA [id number] [address] [place] [address] [place] Creatinine [Mass/Vol] 0.74 mg/dL Normal 0.58-0.96 [facility] Comment on above: Order Comment: Corina pratt Type: BLOOD SPECIMEN Ordering Facility: [facility] Address: [address] [place] [address] Performed By: #### 1 1571-07, 1987-07, #### [facility] CLIA [id number] [address] [place] [address] [place] Creatinine and Glomerular filtration rate.predicted panel (S/P/Bld) 101 mL/min/1.73m??? Normal >=60 [facility] Comment on above: Order Comment: Corina pratt Type: BLOOD SPECIMEN Ordering Facility: [facility] Address: [address] [place] [address] Result Comment: Dora mated Glomerular Filtration Rate (eGFR) is calculated using the 2020 CKD-EPI creatinine equation. This equation utilizes serum creatinine, sex, and age as parameters. The creatinine assay has traceable calibration to isotope dilution-mass spectrometry. Refer to KDIGO guidelines for clinical interpretation. In patients with unstable renal function, e.g. those with acute kidney injury, the eGFR may not accurately reflect actual GFR. Performed By: #### 1 1571-07, 1987-07, #### [facility] CLIA [id number] [address] [place] [address] [place] Glucose [Mass/Vol] 95 mg/dL Normal 74-99 [facility] Comment on above: Order Comment: Speci men Type: BLOOD SPECIMEN Ordering Facility: [facility] Address: [address] [place] [address] Result Comment: The [place] Diabetes Association (ADA) provides guidance for cutoff values for fasting glucose and random glucose. The ADA defines fasting as no caloric intake for at least 8 hours. Fasting plasma glucose results between 100 to 125 mg/dL indicate increased risk for diabetes (prediabetes). Fasting plasma glucose results greater than or equal to 126 mg/dL meet the criteria for diagnosis of diabetes. In the absence of unequivocal hyperglycemia, results should be confirmed by repeat testing. In a patient with classic symptoms of hyperglycemia or hyperglycemic crisis, random plasma glucose results greater than or equal to 200 mg/dL meet the criteria for diagnosis of diabetes. Reference: Standards of Medical Care in Diabetes 2016, [place] Diabetes Association. Diabetes Care. 2016.39(Suppl 1). Performed By: #### 1 1571-07, #### [facility] CLIA [id number] [address] [place] [address] [place] Potassium [Moles/Vol] 4.6 mmol/L Normal 3.7-5.1 [facility] Comment on above: Order Comment: Speci men Type: BLOOD SPECIMEN Ordering Facility: [facility] Address: [address] [place] [address] Performed By: #### 1 1571-07, #### [facility] CLIA [id number] [address] [place] [address] [place] Protein [Mass/Vol] 7.2 g/dL Normal 6.3-8.0 [facility] Comment on above: Order Comment: Catinai santa Type: BLOOD SPECIMEN Ordering Facility: [facility] Address: [address] [place] [address] Performed By: #### 1 1571-07, #### [facility] CLIA [id number] [address] [place] [address] [place] Sodium [Moles/Vol] 138 mmol/L Normal 136-144 [facility] Comment on above: Order Comment: Speci men Type: BLOOD SPECIMEN Ordering Facility: [facility] Address: [address] [place] [address] Performed By: #### 1 1571-07, #### [facility] CLIA [id number] [address] [place] [address] [place] Urea nitrogen [Mass/Vol] 12 mg/dL Normal 7-21 [facility] Comment on above: Order Comment: Speci men Type: BLOOD SPECIMEN Ordering Facility: [facility] Address: [address] [place] [address] Performed By: #### 1 1571-07, 1987-07, #### [facility] CLIA [id number] [address] [place] [address] [place] Cyclic citrullinated peptide IgG Qnon 12-22-2023 [facility] ANTIBODY IGG QUALITATIVE Negative Normal Negative [facility] Comment on above: Order Comment: Speci men Type: BLOOD SPECIMEN Ordering Facility: [facility] Address: [address] [place] [address] Performed By: #### 1 1571-07, 1987-07, #### [facility] CLIA [id number] [address] [place] [address] [place] No Panel Informationon 12-21 Interpretation and review of laboratory results Normal [facility] RHEUMATOID FACTORon 12-22-19 24 Rheumatoid factor Qn NINF [facility] Rheumatoid fact SerPl-aCncon 12-22-2023 Rheumatoid factor Qn [IU]/mL Normal <16 [facility] Comment on above: Order Comment: Speci men Type: BLOOD SPECIMEN Ordering Facility: [facility] Address: [address] [place] [address] Performed By: #### 1 1571-07, 1987-07, #### [facility] CLIA [id number] [address] [place] [address] [place] cCP IgG SerPl-aCncon 024 Cyclic citrullinated peptide IgG Qn <15 Normal <20 [facility] Comment on above: Order Comment: Speci men Type: BLOOD SPECIMEN Ordering Facility: [facility] Address: [address] [place] [address] Performed By: #### 1 1571-07, 1987-07, #### [facility] CLIA [id number] [address] [place] [address] [place] 36on 12-10-2023 36 Already refilled on 12/08/23. Normal [facility] 36 Sent 12/08/23 to LISY Bermudez [facility] 36on 12-08-2023 36 Rx sent. Follow up a s scheduled. Normal [facility] 36 Prescription Request : Last medication check: 04/28/23 Last physical exam: 11/10/23 Next scheduled appointment: 05/17/24 Last date of refill on this medication 05/24/23 [facility] No Panel Informationon 11-09 No obstruction. Norm al study. Report Dictated on Electronically Signed By: Byron Curtis MD Electronically Signed Date/Time: 11/10/2023 4:24 PM EDT [facility] Patient Name: MARCELINO ARAIZA : 1975 Exam Date/Time: 11/10/2023 13:18 Procedure: NM KIDNEY FLOW/FUNCTION W/WO LASIX Ordering Provider: WONG MELISSA Reason For Exam: narrowing of the distal ureter History: Ureter narrowing COMPARISON:None Dose: 8.5 mCi Tc99m MAG3 Findings: Imaging was viewed on a computer workstation. Routine imaging shows uptake and excretion bilaterally. The left kidney contributes 51 % and the right contributes 49 % to total renal function. There is only minimal, probably normal collecting system retention, as seen on post void imaging. Lasix was administered and imaging continued. The T1/2 for emptying on the left is 4.0 minutes. The T1/2 for emptying on the right is 2.5 minutes. The normal range is less than 10 minutes (10- 20 minutes suggests partial obstruction, over twenty minutes definite obstruction). [facility] Byron Curtis MD - 11/10/2023 Patient Name: MARCEILNO ARAIZA : 1975 Exam Date/Time: 11/10/2023 13:18 Procedure: NM KIDNEY FLOW/FUNCTION W/WO LASIX Ordering Provider: WONG MELISSA Reason For Exam: narrowing of the distal ureter History: Ureter narrowing COMPARISON:None Dose: 8.5 mCi Tc99m MAG3 Findings: Imaging was viewed on a computer workstation. Routine imaging shows uptake and excretion bilaterally. The left kidney contributes 51 % and the right contributes 49 % to total renal function. There is only minimal, probably normal collecting system retention, as seen on post void imaging. Lasix was administered and imaging continued. The T1/2 for emptying on the left is 4.0 minutes. The T1/2 for emptying on the right is 2.5 minutes. The normal range is less than 10 minutes (10- 20 minutes suggests partial obstruction, over twenty minutes definite obstruction). IMPRESSION: No obstruction. Normal study. Report Dictated on Electronically Signed By: Byron Curtis MD Electronically Signed Date/Time: 11/10/2023 4:24 PM EDT [facility] Study observation (narrative) [facility] No Panel InformationOrdered By: Byron Curtis on 11-10-2023 [facility] Work Phone: Office Visiton 11-10-2023 Follow-up visit [id number] Harriett Araiza sa 1975 F Date Provider Department Center 11/10/2023 [id number] GOMEZ [facility] Family History Problem Relation Age of Onset Hypertension Mother Cancer Maternal Grandmother Cancer Paternal Grandfather Heart disease Paternal Grandmother Family Status - Relation Status Age at Mother Maternal Grandmother Paternal Grandfather Paternal Grandmother Level of Service:06290 [place] PERIODIC PREVENTIVE MED EST PATIENT 40-64YRS Reason for Visit and Comments: Annual Exam [83] Blood Work [656759] Health Maintenance [872] - PNA vaccine-discuss with Ashley 4th COVID vaccine-only had 3, doesn't want a 4th Normal [facility] Progress Noteon 11-10-2023 Progress Note Patient was verified by name and . After obtaining consent, and per orders of Ashley Gomez CNP, injection of PCV20 given in left deltoid by Loida Bautista. Patient instructed to report any adverse reaction immediately. Normal [facility] Progress Note [facility] [place] [facility] [address] [place] [address] [place] [address] Dept: [phone] Dept Loc: [phone] HPI: Marcelino Araiza is a 47 y.o. female who presents today for her medical conditions/complaints as noted below. Marcelino Araiza is c/o of Annual Exam, Blood Work, and Health Maintenance (PNA vaccine-discuss with Ashley/4th COVID vaccine-only had 3, doesn't want a 4th) HPI- Marcelino presents today for her annual physical and fasting blood work. Vitamin D Deficiency: Currently taking 2,000 units of Vitamin D OTC a couple of times per week. Will check her level today. Hypertension: Takes Lisinopril daily as prescribed. Does not check her blood pressure at home. Her BP is stable today at 128/74. Arthritis: Recently started back on her daily Meloxicam and feels this has helped. Saw an ortho specialist for joint pain and it was recommended she see a block layer. Is scheduled to see someone through the [facility] in December. Obesity: Denies regular exercise but is active around the house. Strives for a healthy diet overall. IBS/GERD: Taking Protonix daily and feels symptoms are stable. Following up with GI. Bowels have been stable as long as she is careful with what she eats. Asthma: Medications used for maintenance include: Albuterol. Needs to use rescue inhaler less than 1-2 times per month. Daytime symptoms in the past 2-4 weeks: none. Number of nighttime awakenings coughing in the past 2-4 weeks: none. Limitations of activities due to asthma include: none. Number of asthma exacerbations over the past 6-12 months requiring oral systemic corticosteroids: yes- in the spring. Understands how to use inhalers as directed and demonstrated proper inhaler technique. Depression/Anxiety: Taking her Prozac and Wellbutrin daily as prescribed and feels symptoms are stable. Chronic left flank pain- has a scan scheduled in [place] today. Was told she might need a stent in one of her ureter's. Health Maintenance: Would like a pneumococcal vaccination. Pap: 4/17/24. Colonoscopy: 11/07/20. Tdap current: 10/30/22. Fully vaccinated for Hep B. Vaccinated for COVID-19 x3 with most recent dose on 02/11/21- declines additional doses. See ROS for additional information. 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 10/07/2022 Urinary tract infection Past Surgical History: Procedure Laterality Date BIOPSY (HISTORICAL) Bilateral bladder biospy CHOLECYSTECTOMY CYSTOSCOPY 06/2023 CYSTOSCOPY W/ URETERAL STENT PLACEMENT Family History Problem Relation Name Age of Onset Hypertension Mother Dewayne julian Cancer Maternal Grandmother Toyin Chen Cancer Paternal Grandfather Toyin Chen Heart disease Paternal Grandmother Denise julian Social History Tobacco Use Smoking status: Never Smokeless tobacco: Never Substance Use Topics Alcohol use: Yes Comment: Occasionally Current Outpatient Medications Medication Sig Dispense Refill albuterol (2.5 MG/3ML) 0.083% nebulizer solution Take by nebulization every 6 hours as needed for wheezing. albuterol 108 (90 Base) MCG/ACT inhaler Inhale 2 puffs every 6 hours as needed for wheezing. 18 g 2 Ascorbic Acid (vitamin C) 500 MG tablet Take 500 mg by mouth daily. buPROPion XL (Wellbutrin XL) 300 MG 24 hr tablet Take 1 tablet (300 mg) by mouth daily. Do not crush, chew, or split. 90 tablet 1 cephalexin (Keflex) 250 MG capsule TAKE 1 CAPSULE BY MOUTH ONCE DAILY AFTER INTERCOURSE cephalexin (Keflex) 500 MG capsule Take 500 mg by mouth 3 times daily. cholecalciferol (Vitamin D-3) 50 MCG (2000 UT) tablet Take 2,000 Units by mouth daily. dicyclomine (Bentyl) 10 MG capsule Take 1 capsule (10 mg) by mouth 3 times daily. 90 capsule 5 FLUoxetine (PROzac) 20 MG capsule Take 1 capsule (20 mg) by mouth daily. Take with 40 mg dose for a total of 60 mg 90 capsule 1 FLUoxetine (PROzac) 40 MG capsule Take 1 capsule (40 mg) by mouth daily. Take with 20 mg for a total of 60 mg 90 capsule 1 fluticasone (Flonase) 50 MCG/ACT nasal spray Administer 1 spray into each nostril daily. Shake gently. Before first use, prime pump. After use, clean tip and replace cap. lisinopril 5 MG tablet Take 1 tablet (5 mg) by mouth daily. 90 tablet 1 meloxicam (Mobic) 15 MG tablet Take 1 tablet (15 mg) by mouth daily. 90 tablet 1 ynsytjxnugcd-aesm-zocoyqki- folic acid (Centrum) chewable tablet Chew 1 tablet daily. ondansetron (Zofran) 4 MG tablet Take 4 mg by mouth every 8 hours as needed for nausea or vomiting. pantoprazole (ProtoNix) 40 MG EC tablet Take 40 mg by mouth every morning (before breakfast). Do not crush, chew, or split. trolamine salicylate (Aspercreme) 10 % cream Apply topically if needed for muscle/joint pain. No current facility-administered medications for this visit. Allergies Allergen (more content not included)... Normal [facility] 36on 11-08-2023 36 Not due for refill u ntil January. [facility] 36 Prescription Request : Last medication check: 09/15/2023 Last physical exam: 10/30/2022 Next scheduled appointment: 11/10/2023 Last date of refill on this medication: 08/13/2023 [facility] Orthopedic Visit Reporton Orthopedic Visit Report [facility] [address] [place] [address] OFFICE VISIT Date of Service: 11/05/23 MR#: [id number] Acct: [id number] Name: MARCELINO ARAIZA Rep #: [id number] : 1975 Provider: Dr. Julio C gonzalez MD Age/Sex: 47/F [facility] [facility] Status: Signed with Addenda ADDENDUM by Sharron Schmid on 11/05/23 at 1001 Office Procedure Documentation entered by Sharron Schmid 11/05/23 10:01: Ortho Injections Injections Yes Subacromial Injection Left Is this a patient provided medication?: No Details: Obtained consent for injection. Under sterile conditions, injected the patients left shoulder with 2cc Kenalog 4cc Bupivacaine. The patient tolerated the injection well without any noted complication. Patient should call our office if redness develops, pain worsens or if they have any concerns. Office Meds Kenalog 40 mg/mL suspension for injection Performing Provider: Julio C Goyal MD Performing Location: [facility] Administered by: Julio C Goyal MD on 11/05/23 09:58 Dose Route Admin Location Dispensed Lot Number Expiration Date NDC Julio ufacturer 80 mg intra-articular left shoulder 2 mL [id number] 06/27/25 7017-3366-25 [facility] Comments: bupivacaine 0.25% 4cc lot : [id number] exp : 05/27/24 ND : 3299-6383-89 Date cc: * Signed Intake Vital Signs 07/14/23 09:43 Height 5 ft 8 in Intake Visit Reasons: LEFT SHOULDER Chief Complaint: left shoulder Is patient in pain?: Yes (left shoulder) Pain scale (1-10): 5 Allergies ofloxacin Allergy (Severe, Verified 11/05/23 09:26) SWELLING Environmental Allergies: Uncoded Allergy (Intermediate, Verified 11/05/23 09:26) Itching Medications ???Medication ???Instructions ???Recorded ???Confirmed ???Type albuterol sulfate 90 mcg/actuation 2 puff inhalation Q6H PRN 12/10/21 10/11/23 Rx aerosol inhaler shortness of breath or wheezing #8.5 grams dicyclomine 10 mg capsule 10 mg PO TID PRN abdominal pain 06/03/22 10/11/23 History bupropion HCl 300 mg 24 hr tablet, 300 mg PO QAM #90 tabs 06/24/22 10/11/23 Rx extended release (Wellbutrin XL) lisinopril 5 mg tablet 5 mg PO DAILY #30 tabs 08/13/22 10/11/23 Rx ondansetron 4 mg disintegrating 4 mg PO Q8H PRN nausea and 09/01/22 10/11/23 Rx tablet vomiting #30 tabs fluoxetine 40 mg capsule 40 mg PO DAILY #90 caps 09/21/22 10/11/23 Rx albuterol sulfate 2.5 mg/0.5 mL 5 mg inhalation Q6H PRN shortness 09/24/22 10/11/23 Rx solution for nebulization of breath or wheezing #30 ea pantoprazole 40 mg tablet,delayed 40 mg PO DAILY #90 tabs 01/19/23 10/11/23 Rx release fluticasone propionate 50 1 spray intranasal DAILY PRN 06/03/23 10/11/23 History mcg/actuation nasal allergy symptoms spray,suspension (Flonase Allergy Relief) meloxicam 15 mg tablet 15 mg PO DAILY Pain 06/03/23 10/11/23 History multivitamin-ferrous 1 tab PO DAILY 06/03/23 10/11/23 History fumarate-folic acid 18 mg-400 mcg tablet (Centrum Complete) clindamycin phosphate 1 % topical 1 applic topical BID 07/04/23 10/11/23 History gel cream base no.175 (bulk) 1 applic topical .BIW 07/04/23 10/11/23 History (Versatile Rich topical cream) triamcinolone acetonide 0.1 % 1 applic topical PRN 07/04/23 10/11/23 History topical cream PFSH Medical History (Updated 11/05/23 @ 09:31 by Julio C Goyal MD) Left shoulder pain Osteoarthritis of right knee Right knee pain Urinary tract infection Gross hematuria Lesion of bladder Wears glasses Anxiety Alcohol use History of steroid therapy Arthritis Bladder disease Easy bruising Back pain Difficulty swallowing History of IBS Gastric reflux Non-smoker Hypertension History of nasal obstruction Nausea Bloating History of skin cancer IBS (irritable bowel syndrome) History of gastrointestinal disorder Hx of carpal tunnel syndrome Hx: UTI (urinary tract infection) Hx of seasonal allergies Cough Herpes zoster Pelvic pain Menorrhagia with regular cycle Asthma Anemia Depression Acid reflux Vitamin D deficiency Chronic diarrhea History of anxiety Surgical History History of esophagogastroduodenoscopy (EGD) Hx of colonoscopy S/P endometrial ablation Status post hysteroscopy History of tonsillectomy History of carpal tunnel surgery Hx of cholecystectomy Family History Grandmother Heart disease Colon cancer Diabetes Grandmother Diabetes Father Rheumatoid arthritis Mother Anxiety Arthritis Depression Brother Asthma Allergies Grandfather Cancer Social History (more content not included)... Normal [facility] Shoulder min 2 Viewson 11-04 Shoulder min 2 Views [facility] [address] [place] [address] Shoulder min 2 Views MR#: [id number] Acct: [id number] Name: MARCELINO ARAIZA Rep #: [id number] : 1975 F 47 From: Zackery Harper MD PCP: TEJINDER Le Status: DEP AMB Study: Shoulder min 2 Views Date of Exam: 11/05/23 Exam# [id number] Ordering Dr: Julio C Goyal MD [id number] STUDY: X-RAY - LEFT SHOULDER REASON FOR EXAM: Female, 47 years old. Pain. TECHNIQUE: 4 views of the left shoulder. COMPARISON: None. FINDINGS: Normal glenohumeral articulation. There is minimal acromioclavicular arthrosis. Normal acromion. Normal humeral head and visualized proximal humerus. The soft tissue structures are unremarkable. There is no demonstrated fracture. Normal visualized pulmonary apex. RAD/Shoulder min 2 Views IMPRESSION: Minimal acromioclavicular arthrosis. No demonstrated fracture. Electronically Signed: Zackery Harper MD at 16:04 EDT , CC: TEJINDER Gomez; Dr. Julio C Goyal MD Brazing Machine Operator Automatic: Signed [facility] 36on 10-27-2023 36 Thank you Christa, I will cancel the US. Lauren Normal [facility] 36 She just had a ct sc an. She no longer needs an ultrasound Normal [facility] 36 Order placed. [facility] [address] order u nder imaging I can then can then call to schedule lasix renal scan Zarina Valverde Normal [facility] Progress Noteon 10-20-2023 Progress Note Christa Wong, TERE 10/20/2023 at 2:35 PM Urology Office Visit [facility] [address] [place] [address] [facility] [address] Dept: [phone] Dept Loc: [phone] The patient, Ms. Araiza is a 47 y.o. female. Their identity was verified by name and date of . Those on the call: Patient Marcelino Araiza has consented to this virtual visit telehealth encounter. Patient was seen today via Telehealth by agreement and consent. I used the following Telehealth technology: Audio and video capabilities. Patient location: Patient Location: Home. This patient encounter is appropriate and reasonable under the circumstances given the patient's particular presentation at this time. The patient has been advised of the potential risks and limitations of this mode of treatment (including but not limited to the absence of in-person examination) and has agreed to be treated in a remote fashion in spite of them. Any and all of the patient's/patient's family's questions on this issue have been answered and I have made no promises or guarantees to the patient. The patient has also been advised to contact this office for worsening conditions or problems, and seek emergency medical treatment and/or call 911 if the patient deems either necessary. The patient stated that they are currently in the [facility]. If the patient is a minor, permission has been obtained by the parent or guardian for the patient to receive medical care at this visit. Length of Visit: I affirm this is a visit with an established patient who has not had a related appointment within my department in the past 7 days or scheduled within the next 24 hours. Total Time: 11-20 were spent on the digital evaluation and management of this patient.. PATIENT NAME: Marcelino Araiza DATE OF : 1975 REFERRING PROVIDER: Cachorro Vides DO PCP: Naga Jin MD TODAY'S DATE: 10/20/2023 CHIEF COMPLAINT: Chief Complaint Patient presents with Nephrolithiasis Visit type: Established patient Assessment and Plan: Diagnosis Plan 1. Left flank pain [facility] 2. Hematuria, unspecified type [facility] Addressed Flank pain: ? Stone passage given significant flank pain 10/17 UA- 0 RBC/HPF 10/14- UA 3-5 RBC/HPF Has had significant relief of pain since ER visit. Still with slight soreness. Recommend continuing fluids Complete Lasix scan as ordered previously. Doing significantly better today compared to prior visit. Follow Up: Christa Wong APRN [facility] HPI: Ms. Araiza is a 47 y.o. female who presents to the office regarding flank pain Records have been reviewed. Reports that her flank pain was significant over the weekend.flank pain progressively ED visit 10/18/2023-left flank pain 10/17 UA- negative 10/14- UA 3-5 RBC/HPF Creat- 0.77 GFR > 90.0 Feels that she believes she passed a stone prior to CT scan.She did see brown particles that looked like a stone She did have significant relief of pain and stronger urination thereafter. Today: Stream is stronger with complete bladder emptying, Frequency , and Nocturia x1 Denies: Urgency, Splitting/ Spraying, Hesitancy, Dysuria, Intermittency, Hematuria, UUI, and KAMRYN Urine is clear now Review of Systems: All pertinent positives and negatives per HPI as stated above. 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 10/07/2022 Past Surgical History: Procedure Laterality Date BIOPSY (HISTORICAL) Bilateral bladder biospy CYSTOSCOPY W/ URETERAL STENT PLACEMENT Allergies Allergen Reactions Seasonal Itching Ofloxacin Swelling Severe swelling Medications Current Outpatient Medications Medication Instructions albuterol (2.5 MG/3ML) 0.083% nebulizer solution Nebulization, Every 6 hours PRN albuterol 108 (90 Base) MCG/ACT inhaler 2 puffs, Inhalation, Every 6 hours PRN azithromycin (Zithromax) 250 MG tablet Take 2 tabs (500 mg) on day 1, and take 1 tab (250 mg) on days 2 through 5 buPROPion XL (WELLBUTRIN XL) 300 mg, Oral, Daily, Do not crush, chew, or split. cephalexin (Keflex) 250 MG capsule TAKE 1 CAPSULE BY MOUTH ONCE DAILY AFTER INTERCOURSE cephalexin (KEFLEX) 500 mg, Oral, 3 times daily cholecalciferol (VITAMIN D-3) 2,000 Units, Oral, Daily dicyclomine (BENTYL) 10 mg, Oral, 3 times daily FLUoxetine (PROZAC) 40 mg, Oral, Daily, Take with 20 mg for a total of 60 mg FLUoxetine (PROZAC) 20 mg, Oral, Daily, Take with 40 mg dose for a total of 60 mg fluticasone (Flonase) 50 MCG/ACT nasal spray 1 spray, Each Nostril, Daily, Shake gently. Before first use, prime pump. After use, clean tip and replace cap. lisinopril 5 mg, Oral, Daily meloxicam (MOBIC) 15 mg, Oral, Daily pwzcnqxunsxf-rgyp-iyqoteni- folic acid (Centrum) chewable tablet 1 tablet, Oral, Daily ondansetron (Z (more content not included)... Normal [facility] [id number] 10-18-2023 [id number] This patient is havi ng increasing pain, Christa L. ordered renal scan and US on Wednesday. Please schedule. Thank you Normal [facility] CBC W Auto Differential pane l (Bld)on 10-18-2023 Basophils (Bld) [#/Vol] 0.1 10*3/uL 0.0 - 0.2 10*3/uL [facility] Basophils/100 WBC (Bld) 1.1 % 0.0 - 2.0 % [facility] Eosinophils (Bld) [#/Vol] 0.1 10*3/uL 0.0 - 0.5 10*3/uL [facility] Eosinophils/100 WBC (Bld) 1.9 % 0.0 - 6.0 % [facility] Erythrocyte distribution width (RBC) [Ratio] 12.1 % 11.5 - 15.0 % [facility] Hematocrit (Bld) [Volume fraction] 42.1 % 35.0 - 47.0 % [facility] Hemoglobin (Bld) [Mass/Vol] 14.5 g/dL 11.7 - 16.0 g/dL [facility] Immature granulocytes (Bld) [#/Vol] 0.0 10*3/uL NINF - 0.1 10*3/uL [facility] Immature granulocytes/100 WBC (Bld) 0.3 % 0.0 - 2.0 % [facility] Interpretation and review of laboratory results Normal [facility] Lymphocytes (Bld) [#/Vol] 1.4 10*3/uL 1.0 - 4.3 10*3/uL [facility] Lymphocytes/100 WBC (Bld) 22.0 % 15.0 - 45.0 % [facility] MCH (RBC) [Entitic mass] 31.0 pg 26.0 - 34.0 pg [facility] MCHC (RBC) [Mass/Vol] 34.4 % 30.5 - 36.0 % [facility] MCV (RBC) [Entitic vol] 90.0 fL 77.0 - 99.0 fL [facility] Monocytes (Bld) [#/Vol] 0.5 10*3/uL 0.0 - 0.9 10*3/uL [facility] Monocytes/100 WBC (Bld) 7.6 % 5.0 - 13.0 % [facility] Neutrophils (Bld) [#/Vol] 4.3 10*3/uL 1.8 - 7.5 10*3/uL [facility] Neutrophils/100 WBC (Bld) 67.1 % 38.0 - 82.0 % [facility] Nucleated RBC/100 WBC (Bld) [Ratio] 0.0 % [facility] Platelet mean volume (Bld) [Entitic vol] 9.6 fL 9.0 - 12.7 fL [facility] Comment on above: MPV is a calculated measurement using platelet volume ratio Platelets (Bld) [#/Vol] 271 10*3/uL 140 - 440 10*3/uL [facility] RBC (Bld) [#/Vol] 4.68 10*6/uL 3.80 - 5.20 10*6/uL [facility] WBC (Bld) [#/Vol] 6.5 10*3/uL 3.6 - 10.7 10*3/uL [facility] CBC WITH AUTO DIFFERENTIALon 10-18-2023 Basophils (Bld) [#/Vol] 0.1 10*3/uL Normal 0.0-0.2 [facility] Comment on above: Performed By: #### L [id number] ####Rip/Mould Operator: TABITHA PONCE ([id number])[facility] [place] (SWRLAB)[address] [place] [address] [place] Basophils/100 WBC (Bld) 1.1 % Normal 0.0-2.0 [facility] Comment on above: Performed By: #### L [id number] ####Rip/Mould Operator: TABITHA PONCE ([id number])[facility] [place] (SWRLAB)[address] [place] [address] Eosinophils (Bld) [#/Vol] 0.1 10*3/uL Normal 0.0-0.5 [facility] Comment on above: Performed By: #### L [id number] ####Rip/Mould Operator: TABITHA PONCE ([id number])[facility] [place] (SWRLAB)[address] [place] [address] Eosinophils/100 WBC (Bld) 1.9 % Normal 0.0-6.0 [facility] Comment on above: Performed By: #### L [id number] ####Rip/Mould Operator: TABITHA PONCE ([id number])[facility] [place] (SWRLAB)[address] [place] [address] Erythrocyte distribution width (RBC) [Ratio] 12.1 % Normal 11.5-15.0 [facility] Comment on above: Performed By: #### L [id number] ####Rip/Mould Operator: TABITHA PONCE ([id number])[facility] [place] (SWRLAB)[address] [place] [address] Hematocrit (Bld) [Volume fraction] 42.1 % Normal 35.0-47.0 [facility] Comment on above: Performed By: #### L [id number] ####Rip/Mould Operator: TABITHA PONCE ([id number])[facility] [place] (SWRLAB)[address] [place] [address] Hemoglobin (Bld) [Mass/Vol] 14.5 g/dL Normal 11.7-16.0 [facility] Comment on above: Performed By: #### L [id number] ####Rip/Mould Operator: TABITHA PONCE ([id number])[facility] [place] (SWRLAB)[address] [place] [address] IMMATURE GRANS % 0.3 % Normal 0.0-2.0 [facility] Comment on above: Performed By: #### L [id number] ####Rip/Mould Operator: TABITHA PONCE ([id number])[facility] [place] (SWRLAB)[address] [place] [address] IMMATURE GRANS ABSOLUTE 0.0 10*3/uL Normal <0.1 [facility] Comment on above: Performed By: #### L [id number] ####Rip/Mould Operator: TABITHA PONCE ([id number])[facility] [place] (SWRLAB)[address] [place] [address] Lymphocytes (Bld) [#/Vol] 1.4 10*3/uL Normal 1.0-4.3 [facility] Comment on above: Performed By: #### L [id number] ####Rip/Mould Operator: TABITHA PONCE ([id number])[facility] [place] (SWRLAB)[address] [place] [address] Lymphocytes/100 WBC (Bld) 22.0 % Normal 15.0-45.0 [facility] Comment on above: Performed By: #### L [id number] ####Rip/Mould Operator: TABITHA PONCE ([id number])[facility] [place] (SWRLAB)[address] [place] [address] MCH (RBC) [Entitic mass] 31.0 pg Normal 26.0-34.0 [facility] Comment on above: Performed By: #### L [id number] ####Rip/Mould Operator: TABITHA PONCE ([id number])[facility] H[place]ERAM[place] (SWRLAB)[address] [place] [address] MCHC 34.4 % Normal 30.5-36.0 [facility] Comment on above: Performed By: #### L [id number] ####Rip/Mould Operator: TABITHA PONCE ([id number])[facility] [place] (SWRLAB)[address] [place] [address] [place] MCV (RBC) [Entitic vol] 90.0 fL Normal 77.0-99.0 [facility] Comment on above: Performed By: #### L [id number] ####Rip/Mould Operator: TABITHA PONCE ([id number])[facility] [place] (SWRLAB)[address] [place] [address] [place] Monocytes (Bld) [#/Vol] 0.5 10*3/uL Normal 0.0-0.9 [facility] Comment on above: Performed By: #### L [id number] ####Rip/Mould Operator: TABITHA PONCE ([id number])[facility] [place] (SWRLAB)[address] [place] [address] [place] Monocytes/100 WBC (Bld) 7.6 % Normal 5.0-13.0 [facility] Comment on above: Performed By: #### L [id number] ####Rip/Mould Operator: TABITHA PONCE ([id number])[facility] [place] (SWRLAB)[address] [place] [address] [place] NEUTROPHILS ABSOLUTE 4.3 10*3/uL Normal 1.8-7.5 [facility] Comment on above: Performed By: #### L [id number] ####Rip/Mould Operator: TABITHA PONCE ([id number])[facility] [place] (SWRLAB)[address] [place] [address] [place] Neutrophils/100 WBC (Bld) 67.1 % Normal 38.0-82.0 [facility] Comment on above: Performed By: #### L [id number] ####Rip/Mould Operator: TABITHA PONCE ([id number])[facility] [place] (SWRLAB)[address] [place] [address] [place] NRBC 0.0 /100 WBCs Normal 0.0-2.0 [facility] Comment on above: Performed By: #### L [id number] ####Rip/Mould Operator: TABITHA PONCE ([id number])[facility] [place] (SWRLAB)[address] [place] [address] Platelet mean volume (Bld) [Entitic vol] 9.6 fL Normal 9.0-12.7 [facility] Comment on above: Result Comment: MPV is a calculated measurement using platelet volume ratio Performed By: #### L [id number] ####Rip/Mould Operator: TABITHA PONCE ([id number])[facility] [place] (SWRLAB)[address] [place] [address] Platelets (Bld) [#/Vol] 271 10*3/uL Normal 140-440 [facility] Comment on above: Performed By: #### L [id number] ####Rip/Mould Operator: TABITHA PONCE ([id number])[facility] [place] (SWRLAB)[address] [place] [address] [place] RBC (Bld) [#/Vol] 4.68 10*6/uL Normal 3.80-5.20 [facility] Comment on above: Performed By: #### L [id number] ####Rip/Mould Operator: TABITHA PONCE ([id number])[facility] [place] [place] (SWRLAB)[address] [place] [address] WBC (Bld) [#/Vol] 6.5 10*3/uL Normal 3.6-10.7 [facility] Comment on above: Performed By: #### L [id number] ####Rip/Mould Operator: TABITHA PONCE ([id number])[facility] [place] (SWRLAB)[address] [place] [address] COMPLETE URINALYSISon 2023 BACTERIA (#/HPF) IN URINE Few Abnormal Negative [facility] Comment on above: Performed By: #### L [id number] #### Rip/Mould Operator: TABITHA PONCE ([id number]) [facility] [place] (SWRLAB) [address] [place] [address] [place] BILIRUBIN, TOTAL PRESENCE IN URINE Negative Normal Negative [facility] Comment on above: Performed By: #### L [id number] #### Rip/Mould Operator: TABITHA PONCE ([id number]) [facility] [place] (SWRLAB) [address] [place] [address] Clarity (U) Clear Normal Clear [facility] Comment on above: Performed By: #### L [id number] #### Rip/Mould Operator: TABITHA PONCE ([id number]) [facility] [place] (SWRLAB) [address] [place] [address] Color (U) Colorless Normal Lt. Yellow [facility] Comment on above: Performed By: #### L [id number] #### Rip/Mould Operator: TABITHA PONCE ([id number]) [facility] [place] (SWRLAB) [address] [place] [address] GLUCOSE (MG/DL) IN URINE Normal Normal Normal (<70) [facility] Comment on above: Performed By: #### L [id number] #### Rip/Mould Operator: TABITHA PONCE ([id number]) [facility] [place] (SWRLAB) [address] [place] [address] HEMOGLOBIN PRESENCE IN URINE 0.03 mg/dL Abnormal Negative [facility] Comment on above: Performed By: #### L [id number] #### Rip/Mould Operator: TABITHA PONCE ([id number]) [facility] [place] (SWRLAB) [address] [place] [address] Ketones Ql (U) Negative Normal Negative [facility] Comment on above: Performed By: #### L [id number] #### Rip/Mould Operator: TABITHA PONCE ([id number]) [facility] [place] (SWRLAB) [address] [place] [address] LEUKOCYTE ESTERASE PRESENCE IN URINE BY TEST STRIP Negative Normal Negative [facility] Comment on above: Performed By: #### L [id number] #### Rip/Mould Operator: TABITHA PONCE ([id number]) [facility] [place] (SWRLAB) [address] [place] [address] [place] NITRITE PRESENCE IN URINE Negative Normal Negative [facility] Comment on above: Performed By: #### L [id number] #### Rip/Mould Operator: TABITHA PONCE ([id number]) [facility] (SWRLAB) [address] [place] [address] [place] pH (U) 5.5 [pH] Normal 5.0-8.0 [facility] Comment on above: Performed By: #### L [id number] #### Rip/Mould Operator: TABITHA PONCE ([id number]) [facility] EM[facility] (SWRLAB) [address] [place] [address] Protein (U) [Mass/Vol] Negative Normal Negative [facility] Comment on above: Performed By: #### L [id number] #### Rip/Mould Operator: TABITHA PONCE ([id number]) [facility] (SWRLAB) [address] [place] [address] [place] RBC (#/HPF) IN URINE SEDIMENT Negative Normal 0-2 [facility] Comment on above: Performed By: #### L [id number] #### Rip/Mould Operator: TABITHA PONCE ([id number]) [facility] (SWRLAB) [address] [place] [address] Specific gravity (U) [Rel density] 1.008 Normal 1.005-1.03 0 [facility] Comment on above: Performed By: #### L [id number] #### Rip/Mould Operator: TABITHA PONCE ([id number]) [facility] (SWRLAB) [address] [place] [address] [place] SQUAMOUS EPITHELIAL CELLS (#/HPF) IN URINE SEDIMENT 0-2 Normal 3-5 [facility] Comment on above: Performed By: #### L [id number] #### Rip/Mould Operator: TABITHA PONCE ([id number]) [facility] (SWRLAB) [address] [place] [address] [place] UROBILINOGEN (MG/DL) IN URINE Normal Normal Normal (0-1) [facility] Comment on above: Performed By: #### L [id number] #### Rip/Mould Operator: TABITHA PONCE ([id number]) [facility] (SWRLAB) [address] [place] [address] VOLUME OF URINE 8-12 mL Normal [facility] Comment on above: Performed By: #### L [id number] #### Rip/Mould Operator: TABITHA PONCE ([id number]) [facility] (SWRLAB) [address] [place] [address] WBC (LEUKOCYTE) (#/HPF) IN URINE SEDIMENT Negative Normal 0-5 [facility] Comment on above: Performed By: #### L [id number] #### Rip/Mould Operator: TABITHA PONCE ([id number]) [facility] (SWRLAB) [address] [place] [address] COMPREHENSIVE METABOLIC PANE [place] 10-18-2023 Albumin [Mass/Vol] 4.4 g/dL Normal 3.5-5.0 [facility] Comment on above: Performed By: #### L AB143, LAB17 ####Rip/Mould Operator: TABITHA PONCE ([id number])[facility] (SWRLAB)[address] [place] [address] ALP [Catalytic activity/Vol] 77 U/L Normal 38-126 [facility] Comment on above: Performed By: #### L AB143, LAB17 ####Rip/Mould Operator: TABITHA PONCE ([id number])[facility] [facility] (SWRLAB)[address] [place] [address] [place] ALT [Catalytic activity/Vol] 17 U/L Normal 0-34 [facility] Comment on above: Performed By: #### L AB143, LAB17 ####Rip/Mould Operator: TABITHA PONCE ([id number])[facility] [place] (SWRLAB)[address] [place] [address] [place] Anion gap [Moles/Vol] 8 mmol/L Normal 3-13 [facility] Comment on above: Performed By: #### Rita LAU, LAB17 ####Rip/Mould Operator: TABITHA PONCE ([id number])[facility] [place] [facility] (SWRLAB)[address] AST [Catalytic activity/Vol] 24 U/L Normal 15-46 [facility] Comment on above: Performed By: #### L 143, LAB17 ####Rip/Mould Operator: TABITHA PONCE ([id number])[facility] [place] (SWRLAB)[address] Bilirubin [Mass/Vol] 0.5 mg/dL Normal 0.2-1.3 [facility] Comment on above: Performed By: #### Rita LAU, LAB17 ####Rip/Mould Operator: TABITHA PONCE ([id number])[facility] [place] (SWRLAB)[address] [place] [address] [place] Calcium [Mass/Vol] 9.2 mg/dL Normal 8.4-10.4 [facility] Comment on above: Performed By: #### Rita LAU, LAB17 ####Rip/Mould Operator: TABITHA PONCE ([id number])[facility] [place] (SWRLAB)[address] [place] [address] [place] Chloride [Moles/Vol] 103 mmol/L Normal 98-107 [facility] Comment on above: Performed By: #### L 143, LAB17 ####Rip/Mould Operator: TABITHA PONCE ([id number])[facility] [place] (SWRLAB)[address] [place] [address] [place] CO2 [Moles/Vol] 25 mmol/L Normal 22-30 [facility] Comment on above: Performed By: #### L AB143, LAB17 ####Rip/Mould Operator: TABITHA PONCE ([id number])[facility] [place] (SWRLAB)[address] [place] [address] [place] Creatinine [Mass/Vol] 0.77 mg/dL Normal 0.52-1.04 [facility] Comment on above: Performed By: #### Rita LAU, LAB17 ####Rip/Mould Operator: TABITHA PONCE ([id number])[facility] [place] (SWRLAB)[address] GLOMERULAR FILTRATION RATE ML/MIN/1.73 SQ M.PREDICTED >90.0 Normal >60.0 [facility] Comment on above: Result Comment: Calc ulation based on the Chronic Kidney Disease Epidemiology Collaboration (CKD-EPI) equation refit without adjustment for race Performed By: #### Rita LAU, LAB17 ####Rip/Mould Operator: TABITHA PONCE ([id number])[facility] [place] (SWRLAB)[address] [place] [address] Glucose [Mass/Vol] 94 mg/dL Normal 70-100 [facility] Comment on above: Performed By: #### Rita LAU, LAB17 ####Rip/Mould Operator: TABITHA PONCE ([id number])[facility]BLINK[facility] (SWRLAB)[address] [place] [address] [place] Potassium [Moles/Vol] 3.7 mmol/L Normal 3.5-5.1 [facility] Comment on above: Performed By: #### Rita LAU, LAB17 ####Rip/Mould Operator: TABITHA PONCE ([id number])[facility]INKinsey [place] (SWRLAB)[address] [place] [address] Protein [Mass/Vol] 7.5 g/dL Normal 6.3-8.2 [facility] Comment on above: Performed By: #### L ABRere, LAB17 ####Rip/Mould Operator: TABITHA PONCE ([id number])[facility] [place] (SWRLAB)[address] [place] [address] [place] Sodium [Moles/Vol] 136 mmol/L Normal 135-145 [facility] Comment on above: Performed By: #### L AB143, LAB17 ####Rip/Mould Operator: TABITHA PONCE ([id number])[facility] R[place]AN (SWRLAB)[address] Urea nitrogen [Mass/Vol] 12 mg/dL Normal 7-17 [facility] Comment on above: Performed By: #### L AB143, LAB17 ####Rip/Mould Operator: TABITHA PONCE ([id number])[facility] [place] (SWRLAB)[address] ABDOMEN PELVIS WO IV CONT [facility] 10-18-2023 CT ABDOMEN PELVIS WO IV CONTRAST Patient Name: MARCELINO ARAIZA : 1975 Exam Date/Time: 10/18/2023 14:40 Procedure: CT ABDOMEN PELVIS WO IV CONTRAST Ordering Provider: VIDES EMILIE Reason For Exam: Flank pain, kidney stone suspected CT ABDOMEN AND PELVIS WITHOUT CONTRAST CLINICAL INDICATION: Left flank pain Technique: Axial CT images were obtained of the abdomen and pelvis without the use of intravenous contrast. Images were reformatted in coronal and sagittal projections. Oral contrast: Not given Dose reduction was employed with automated exposure control. COMPARISON: None. FINDINGS: Evaluation of solid organs is limited by lack of contrast administration. Lung bases: No pleural effusion or focal consolidation. Chest wall: Unremarkable. Liver: The liver is normal in size and contour. No focal hepatic lesions identified. Biliary system: The biliary system is not dilated. Postsurgical changes compatible with cholecystectomy are noted. Spleen: The spleen is normal in size and contour. Pancreas: No significant abnormality. Adrenal glands: No significant abnormality. Kidneys/ Ureter: The bilateral kidneys are normal in size and contour. No evidence of hydroureteronephrosis. No evidence of nephrolithiasis. No evidence of focal renal lesions. Bladder: The urinary bladder is decompressed, limiting detailed evaluation. Pelvic organs: No masses or other significant abnormalities seen. Multiple pelvic phleboliths noted. Bowel: Esophagus is unremarkable. The stomach is unremarkable. The small bowel is of normal caliber throughout without evidence of wall thickening or obstruction. The appendix is unremarkable. The large bowel is without evidence of dilatation or thickening. Mesentery/Intraperitoneum: No intraperitoneal free fluid or air is seen. Mesentery is normal in appearance. Lymph nodes: No lymphadenopathy Vasculature: The abdominal aorta is normal in caliber without evidence of aneurysmal dilatation. The venous vasculature appears grossly unremarkable. Abdominal wall: The abdominal wall soft tissues appear unremarkable. Osseous structures: No suspicious osseous lesions identified. Mild degenerative changes of the lumbar spine are observed. IMPRESSION: 1. No acute abdominopelvic process identified. 2. No evidence of hydronephrosis or nephrolithiasis. Report Dictated on Electronically Signed By: Jamie Waldrop MD Electronically Signed Date/Time: 10/18/2023 3:19 PM EDT Pt to room 4 with c/o left flank pain since Wednesday. Pt describes pain as constant pain that waxes and wanes in intensity with no modifying factors. Pt states pain wraps around into front abdominal area. Pt denies any known hematuria, dysuria. Pt repors that she has a history of kidney problems and seen by urology last month with a stent in left ureter placed for a short period of time but was unable to tolerate. Pt denies any fevers. Reports having some nausea and general sense of unwell. NEG HCG Normal [facility] CT Abdomen WO contraston 1. No acute abdomino pelvic process identified. 2. No evidence of hydronephrosis or nephrolithiasis. Report Dictated on Electronically Signed By: Jamie Waldrop MD Electronically Signed Date/Time: 10/18/2023 3:19 PM EDT [facility] RADIOLOGY SYSTEM Patient Name: [facility]ARCELINO [facility] 1975 [id number] Exam Date/Time: 10/18/2023 14:40 Procedure: CT ABDOMEN PELVIS WO IV CONTRAST Ordering Provider: VIDES EMILIE Reason For Exam: Flank pain, kidney stone suspected CT ABDOMEN AND PELVIS WITHOUT CONTRAST CLINICAL INDICATION: Left flank pain Technique: Axial CT images were obtained of the abdomen and pelvis without the use of intravenous contrast. Images were reformatted in coronal and sagittal projections. Oral contrast: Not given Dose reduction was employed with automated exposure control. COMPARISON: None. FINDINGS: Evaluation of solid organs is limited by lack of contrast administration. Lung bases: No pleural effusion or focal consolidation. Chest wall: Unremarkable. Liver: The liver is normal in size and contour. No focal hepatic lesions identified. Biliary system: The biliary system is not dilated. Postsurgical changes compatible with cholecystectomy are noted. Spleen: The spleen is normal in size and contour. Pancreas: No significant abnormality. Adrenal glands: No significant abnormality. Kidneys/ Ureter: The bilateral kidneys are normal in size and contour. No evidence of hydroureteronephrosis. No evidence of nephrolithiasis. No evidence of focal renal lesions. Bladder: The urinary bladder is decompressed, limiting detailed evaluation. Pelvic organs: No masses or other significant abnormalities seen. Multiple pelvic phleboliths noted. Bowel: Esophagus is unremarkable. The stomach is unremarkable. The small bowel is of normal caliber throughout without evidence of wall thickening or obstruction. The appendix is unremarkable. The large bowel is without evidence of dilatation or thickening. Mesentery/Intraperitoneum: No intraperitoneal free fluid or air is seen. Mesentery is normal in appearance. Lymph nodes: No lymphadenopathy Vasculature: The abdominal aorta is normal in caliber without evidence of aneurysmal dilatation. The venous vasculature appears grossly unremarkable. Abdominal wall: The abdominal wall soft tissues appear unremarkable. Osseous structures: No suspicious osseous lesions identified. Mild degenerative changes of the lumbar spine are observed. [facility] RADIOLOGY SYSTEM Jamie Waldrop MD - 10/18/2023 Patient Name: MARCELINO [facility]RAIZA [facility] 1975 [id number] Exam Date/Time: 10/18/2023 14:40 Procedure: CT ABDOMEN PELVIS WO IV CONTRAST Ordering Provider: VIDES EMILIE Reason For Exam: Flank pain, kidney stone suspected CT ABDOMEN AND PELVIS WITHOUT CONTRAST CLINICAL INDICATION: Left flank pain Technique: Axial CT images were obtained of the abdomen and pelvis without the use of intravenous contrast. Images were reformatted in coronal and sagittal projections. Oral contrast: Not given Dose reduction was employed with automated exposure control. COMPARISON: None. FINDINGS: Evaluation of solid organs is limited by lack of contrast administration. Lung bases: No pleural effusion or focal consolidation. Chest wall: Unremarkable. Liver: The liver is normal in size and contour. No focal hepatic lesions identified. Biliary system: The biliary system is not dilated. Postsurgical changes compatible with cholecystectomy are noted. Spleen: The spleen is normal in size and contour. Pancreas: No significant abnormality. Adrenal glands: No significant abnormality. Kidneys/ Ureter: The bilateral kidneys are normal in size and contour. No evidence of hydroureteronephrosis. No evidence of nephrolithiasis. No evidence of focal renal lesions. Bladder: The urinary bladder is decompressed, limiting detailed evaluation. Pelvic organs: No masses or other significant abnormalities seen. Multiple pelvic phleboliths noted. Bowel: Esophagus is unremarkable. The stomach is unremarkable. The small bowel is of normal caliber throughout without evidence of wall thickening or obstruction. The appendix is unremarkable. The large bowel is without evidence of dilatation or thickening. Mesentery/Intraperitoneum: No intraperitoneal free fluid or air is seen. Mesentery is normal in appearance. Lymph nodes: No lymphadenopathy Vasculature: The abdominal aorta is normal in caliber without evidence of aneurysmal dilatation. The venous vasculature appears grossly unremarkable. Abdominal wall: The abdominal wall soft tissues appear unremarkable. Osseous structures: No suspicious osseous lesions identified. Mild degenerative changes of the lumbar spine are observed. IMPRESSION: 1. No acute abdominopelvic process identified. 2. No evidence of hydronephrosis or nephrolithiasis. Report Dictated on Electronically Signed By: Jamie Waldrop MD Electronically Signed Date/Time: 10/18/2023 3:19 PM EDT [facility] Radiology Study observation (narrative) [facility] CT Abdomen WO contrastOrdere d By: Jamie Waldrop on 10-18-2023 [facility] Work Phone: Comprehensive metabolic 1998 panelon 10-18-2023 Albumin [Mass/Vol] 4.4 g/dL 3.5 - 5.0 g/dL [facility] ALP [Catalytic activity/Vol] 77 U/L 38 - 126 U/L [facility] ALT [Catalytic activity/Vol] 17 U/L 0 - 34 U/L [facility] Anion gap [Moles/Vol] 8 mmol/L 3 - 13 mmol/L [facility] AST [Catalytic activity/Vol] 24 U/L 15 - 46 U/L [facility] Bilirubin [Mass/Vol] 0.5 mg/dL 0.2 - 1 .3 mg/dL [facility] Calcium [Mass/Vol] 9.2 mg/dL 8.4 - 10. 4 mg/dL [facility] Chloride [Moles/Vol] 103 mmol/L 98 - 10 7 mmol/L [facility] CO2 [Moles/Vol] 25 mmol/L 22 - 30 mmol/L [facility] Creatinine [Mass/Vol] 0.77 mg/dL 0.52 - 1.04 mg/dL [facility] GFR/1.73 sq M.predicted MDRD (S/P/Bld) [Vol rate/Area] - PINF [facility] Comment on above: Calculation based on the Chronic Kidney Disease Epidemiology Collaboration (CKD-EPI) equation refit without adjustment for race Glucose [Mass/Vol] 94 mg/dL 70 - 100 mg/dL [facility] Interpretation and review of laboratory results Normal [facility] Potassium [Moles/Vol] 3.7 mmol/L 3.5 - 5.1 mmol/L [facility] Protein [Mass/Vol] 7.5 g/dL 6.3 - 8.2 g/dL [facility] Sodium [Moles/Vol] 136 mmol/L 135 - 145 mmol/L [facility] Urea nitrogen [Mass/Vol] 12 mg/dL 7 - 17 mg/dL [facility] ED Nursing Noteon 10-18-2023 ED Nursing Note Pt to room 4 with c/ o left flank pain since Wednesday. Pt describes pain as constant pain that waxes and wanes in intensity with no modifying factors. Pt states pain wraps around into front abdominal area. Pt denies any known hematuria, dysuria. Pt repors that she has a history of kidney problems and seen by urology last month with a stent in left ureter placed for a short period of time but was unable to tolerate. Pt denies any fevers. Reports having some nausea and general sense of unwell. Normal [facility] ED Provider Noteon ED Provider Note EMERGENCY DEPARTMENT ENCOUNTER Pt Name: Marcelino Araiza Birthdate 1975 Date of evaluation: 10/18/2023 ED Provider: Cachorro Vides DO CHIEF COMPLAINT Chief Complaint Patient presents with Flank Pain HISTORY OF PRESENT ILLNESS (Location/Symptom, Timing/Onset, Context/Setting, Quality, Duration, Modifying Factors, Severity) Note limiting factors. I wore appropriate PPE for the entirety of this encounter. HPI Marcelino Araiza is a 47 y.o. who presents to the emergency department for evaluation of flank pain. Patient reports left flank pain for about 5 days. She reports intermittent nausea and feeling unwell. She reports studies were ordered by urology for this including a kidney ultrasound with lasix. She reports she has had hematuria for a while, and this is being worked up by urology Nursing Notes were reviewed. 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 10/07/2022 SURGICAL HISTORY Past Surgical History: Procedure Laterality Date BIOPSY (HISTORICAL) Bilateral bladder biospy CYSTOSCOPY W/ URETERAL STENT PLACEMENT CURRENT MEDICATIONS Discharge Medication List as of 10/18/2023 3:51 PM CONTINUE these medications which have NOT CHANGED Details albuterol (2.5 MG/3ML) 0.083% nebulizer solution Take by nebulization every 6 hours as needed for wheezing., Historical Med albuterol 108 (90 Base) MCG/ACT inhaler Inhale 2 puffs every 6 hours as needed for wheezing., Starting Wed03/30/2023, Normal Ascorbic Acid (vitamin C) 500 MG tablet Take 500 mg by mouth daily., Historical Med azithromycin (Zithromax) 250 MG tablet Take 2 tabs (500 mg) on day 1, and take 1 tab (250 mg) on days 2 through 5, Normal buPROPion XL (Wellbutrin XL) 300 MG 24 hr tablet Take 1 tablet (300 mg) by mouth daily. Do not crush, chew, or split., Starting Wed07/12/2023, Normal !! cephalexin (Keflex) 250 MG capsule TAKE 1 CAPSULE BY MOUTH ONCE DAILY AFTER INTERCOURSE, Historical Med !! cephalexin (Keflex) 500 MG capsule Take 500 mg by mouth 3 times daily., Starting Wed04/07/2023, Historical Med cholecalciferol (Vitamin D-3) 50 MCG (1999 UT) tablet Take 2,000 Units by mouth daily., Historical Med dicyclomine (Bentyl) 10 MG capsule Take 1 capsule (10 mg) by mouth 3 times daily., Starting Wed04/30/2023, Normal !! FLUoxetine (PROzac) 20 MG capsule Take 1 capsule (20 mg) by mouth daily. Take with 40 mg dose for a total of 60 mg, Starting Wed10/11/2023, Normal !! FLUoxetine (PROzac) 40 MG capsule Take 1 capsule (40 mg) by mouth daily. Take with 20 mg for a total of 60 mg, Starting Wed10/11/2023, Normal fluticasone (Flonase) 50 MCG/ACT nasal spray Administer 1 spray into each nostril daily. Shake gently. Before first use, prime pump. After use, clean tip and replace cap., Historical Med lisinopril 5 MG tablet Take 1 tablet (5 mg) by mouth daily., Starting Wed05/24/2023, Normal meloxicam (Mobic) 15 MG tablet Take 1 tablet (15 mg) by mouth daily., Starting Wed08/13/2023, Normal fforrrqpnhrv-jrso-kdvsyzvh- folic acid (Centrum) chewable tablet Chew 1 tablet daily., Historical Med ondansetron (Zofran) 4 MG tablet Take 4 mg by mouth every 8 hours as needed for nausea or vomiting., Historical Med pantoprazole (ProtoNix) 40 MG EC tablet Take 40 mg by mouth every morning (before breakfast). Do not crush, chew, or split., Historical Med trolamine salicylate (Aspercreme) 10 % cream Apply topically if needed for muscle/joint pain., Historical Med !! - Potential duplicate medications found. Please discuss with provider. ALLERGIES Seasonal and Ofloxacin FAMILY HISTORY No family history on file. SOCIAL HISTORY Social History Socioeconomic History Marital status: Tobacco Use Smoking status: Never Smokeless tobacco: Never Vaping Use Vaping status: Never Used Substance and Sexual Activity Alcohol use: Yes Comment: on occasion Drug use: Never Sexual activity: Yes Partners: Male Social Determinants of Health Financial Resource Strain: [...] Lack of Transportation (Non-Medical): No Physical Activity: Insufficiently Active (10/10/2020) Re[facility] from [facility], [facility] Exercise Vital Sign Days of Exercise per Week: 2 days Minutes of Exercise per Session: 30 min Stress: Stress Concern Present (10/10/2020) (more content not included)... Normal [facility] HCG QUANTITATIVE BLOODon HCG QUANTITATIVE <2 Normal Females <=5 [facility] Comment on above: Result Comment: APPLE [place] COMMENTS: Values in should double every 2 to 3 days for the first 6 weeks. Elevated concentrations of human chorionic gonadotropin (hCG) measured in the first trimester of are observed in normal , but may serve as an indication of chorionic carcinoma, hydatiform mole, or multiple . Decreasing hCG concentrations indicate threatened or missed , recent termination of , ectopic , gestosis or intrauterine . Lavern- and postmenopausal females may have detectable hCG concentrations (< or = to 14 mIU/mL) due to pituitary production of hCG. Serum follicle-stimulating hormone measurement may aid in ruling-out in this population. Cutoffs of greater than 20 to 45 mIU/mL have been suggested and are method dependent. False-elevations (called phantom human chorionic gonadotropin: hCG) may occur with patients who have human antianimal or heterophilic antibodies. Some specimens may not dilute linearly due to abnormal forms of hCG. Elevated hCG concentrations not associated with are found in patients with other diseases such as tumors of the germ cells, ovaries, bladder, pancreas, stomach, lungs, and liver. This test is not intended to detect or monitor tumors or gestational trophoblastic disease. Performed By: #### L [id number], LAB17 ####Rip/Mould Operator: TABITHA PONCE ([id number])[facility] ([id number] Laboratory - Chemistry and C hemistry - challengeon 10-18-2023 HCG.beta subunit Qn Females <=5 mIU/mL [facility] Panel Informationon 10-17 Values in should double every 2 to 3 days for the first 6 weeks. Elevated concentrations of human chorionic gonadotropin (hCG) measured in the first trimester of are observed in normal , but may serve as an indication of chorionic carcinoma, hydatiform mole, or multiple . Decreasing hCG concentrations indicate threatened or missed , recent termination of , ectopic , gestosis or intrauterine . Lavern- and postmenopausal females may have detectable hCG concentrations (< or = to 14 mIU/mL) due to pituitary production of hCG. Serum follicle-stimulating hormone measurement may aid in ruling-out in this population. Cutoffs of greater than 20 to 45 mIU/mL have been suggested and are method dependent. False-elevations (called phantom human chorionic gonadotropin: hCG) may occur with patients who have human antianimal or heterophilic antibodies. Some specimens may not dilute linearly due to abnormal forms of hCG. Elevated hCG concentrations not associated with are found in patients with other diseases such as tumors of the germ cells, ovaries, bladder, pancreas, stomach, lungs, and liver. This test is not intended to detect or monitor tumors or gestational trophoblastic disease. [facility] Urinalysis complete panel (U )Ordered By: Misael Miramontes on 10-18-2023 Bacteria LM.HPF (Urine sed) [#/Area] Few Abnormal Negative /HPF [facility] Bilirubin Ql (U) Negative Negative mg/dL [facility] Clarity (U) Clear Clear [facility] Color (U) Colorless Lt. Yellow [facility] Epithelial cells.squamous LM.HPF (Urine sed) [#/Area] 0-2 [facility] Glucose Ql (U) Normal Normal (<70) mg/dL [facility] Hemoglobin Ql (U) 0.03 mg/dL Abnormal Negative [facility] Interpretation and review of laboratory results Abnormal [facility] Ketones (U) [Mass/Vol] Negative Negat aurelia mg/dL [facility] Leukocyte esterase Test strip Ql (U) Negative Negative Eve/uL [facility] Nitrite Ql (U) Negative Negative [facility] pH (U) 5.5 [pH] 5.0 - 8.0 pH [facility] Protein (U) [Mass/Vol] Negative Negat aurelia mg/dL [facility] RBC LM.HPF (Urine sed) [#/Area] Negative [facility] Specific gravity (U) [Rel density] 1.008 1.005 - 1.030 [facility] Urobilinogen (U) [Mass/Vol] Normal Normal (0-1) mg/dL [facility] Volume, Urine 8-12 mL [facility] WBC LM.HPF (Urine sed) [#/Area] Negative [facility] COMPLETE URINALYSISon 2023 BACTERIA (#/HPF) IN URINE Few Abnormal Negative [facility] Comment on above: Performed By: #### L [id number] ####Rip/Mould Operator: TABITHA PONCE ([id number])[facility] ([facility])[address] [place] [address] BILIRUBIN, TOTAL PRESENCE IN URINE Negative Normal Negative [facility] Comment on above: Performed By: #### L [id number] ####Rip/Mould Operator: TABITHA PONCE ([id number])[facility] [place] [address] Clarity (U) Clear Normal Clear [facility] Comment on above: Performed By: #### L [id number] ####Rip/Mould Operator: TABITHA PONCE ([id number])[facility] [place] [address] Color (U) Light Yellow Normal Lt. Yellow [facility] Comment on above: Performed By: #### L [id number] ####Rip/Mould Operator: TABITHA PONCE ([id number])[facility] [place] [address] GLUCOSE (MG/DL) IN URINE Normal Normal Normal (<70) [facility] Comment on above: Performed By: #### L [id number] ####Rip/Mould Operator: TABITHA PONCE ([id number])[facility] [place] [address] HEMOGLOBIN PRESENCE IN URINE 0.03 mg/dL Abnormal Negative [facility] Comment on above: Performed By: #### L [id number] ####Rip/Mould Operator: TABITHA PONCE ([id number])[facility] [place] [address] Ketones Ql (U) Negative Normal Negative [facility] Comment on above: Performed By: #### L [id number] ####Rip/Mould Operator: TABITHA PONCE ([id number])[facility] [place] [address] LEUKOCYTE ESTERASE PRESENCE IN URINE BY TEST STRIP Negative Normal Negative [facility] Comment on above: Performed By: #### L [id number] ####Rip/Mould Operator: TABITHA PONCE ([id number])[facility] ([facility])[address] [place] [address] [place] MUCUS (#/LPF) IN URINE SEDIMENT Moderate Abnormal Negative [facility] Comment on above: Performed By: #### L [id number] ####Rip/Mould Operator: TABITHA PONCE ([id number])[facility])[address] [place] [address] NITRITE PRESENCE IN URINE Negative Normal Negative [facility] Comment on above: Performed By: #### L [id number] ####Rip/Mould Operator: TABITHA PONCE ([id number])[facility])[address] [place] [address] pH (U) 6.5 [pH] Normal 5.0-8.0 [facility] Comment on above: Performed By: #### L [id number] ####Rip/Mould Operator: TABITHA PONCE ([id number])[facility] ([facility])[address] [place] [address] Protein (U) [Mass/Vol] Negative Normal Negative [facility] Comment on above: Performed By: #### L [id number] ####Rip/Mould Operator: TABITHA PONCE ([id number])[facility])[address] [place] [address] RBC (#/HPF) IN URINE SEDIMENT 3-5 Abnormal 0-2 [facility] Comment on above: Performed By: #### L [id number] ####Rip/Mould Operator: TABITHA PONCE ([id number])[facility] ([facility])[address] [place] [address] Specific gravity (U) [Rel density] 1.022 Normal 1.005-1.03 0 [facility] Comment on above: Performed By: #### L [id number] ####Rip/Mould Operator: TABITHA PONCE ([id number])[facility])[address] [place] [address] SQUAMOUS EPITHELIAL CELLS (#/HPF) IN URINE SEDIMENT 3-5 Normal 3-5 [facility] Comment on above: Performed By: #### L [id number] ####Rip/Mould Operator: TABITHA PONCE ([id number])[facility])[address] [place] [address] UROBILINOGEN (MG/DL) IN URINE Normal Normal Normal (0-1) [facility] Comment on above: Performed By: #### L [id number] ####Rip/Mould Operator: TABITHA PONCE ([id number])[facility])[address] [place] [address] WBC (LEUKOCYTE) (#/HPF) IN URINE SEDIMENT 0-2 Normal 0-5 [facility] Comment on above: Performed By: #### L [id number] ####Rip/Mould Operator: TABITHA PONCE ([id number])[address] Progress Noteon 10-15-2023 Progress Note Christa Wong APRN 10/27/2023 at 8:39 AM Urology Office Visit [facility] [address] [address] [facility] [address] Dept: [phone] Dept Loc: [phone] The patient, Ms. Araiza is a 47 y.o. female. Their identity was verified by name and date of . Those on the call: Patient Marcelino Araiza has consented to this virtual visit telehealth encounter. Patient was seen today via Telehealth by agreement and consent. I used the following Telehealth technology: Audio and video capabilities. Patient location: Patient Location: Home. This patient encounter is appropriate and reasonable under the circumstances given the patient's particular presentation at this time. The patient has been advised of the potential risks and limitations of this mode of treatment (including but not limited to the absence of in-person examination) and has agreed to be treated in a remote fashion in spite of them. Any and all of the patient's/patient's family's questions on this issue have been answered and I have made no promises or guarantees to the patient. The patient has also been advised to contact this office for worsening conditions or problems, and seek emergency medical treatment and/or call 911 if the patient deems either necessary. The patient stated that they are currently in the state of [place]. If the patient is a minor, permission has been obtained by the parent or guardian for the patient to receive medical care at this visit. Length of Visit: I affirm this is a visit with an established patient who has not had a related appointment within my department in the past 7 days or scheduled within the next 24 hours. Total Time: 11-20 were spent on the digital evaluation and management of this patient.. PATIENT NAME: Marcelino Araiza DATE OF : 1975 REFERRING PROVIDER: Aslhey Gomez APRN - * PCP: Naga Jin MD TODAY'S DATE: 10/27/2023 CHIEF COMPLAINT: Chief Complaint Patient presents with Blood in Urine Impression/Plan: Marcelino was seen today for blood in urine. Diagnoses and all orders for this visit: Other hydronephrosis (Primary) - NM Renal Function Mag 3 with Lasix; Future - NM kidney flow/function w/wo lasix; Future Gross hematuria - [facility] Urology - US retroperitoneum; Future - Cancel: Urine culture; Future - Cancel: Urine culture - Cancel: Complete Urinalysis; Future - Cancel: Complete Urinalysis - NM Renal Function Mag 3 with Lasix; Future - Complete Urinalysis; Future - Urine culture; Future - NM kidney flow/function w/wo lasix; Future Left lower quadrant abdominal pain - [facility] Urology - US retroperitoneum; Future - Cancel: Urine culture; Future - Cancel: Urine culture - Cancel: Complete Urinalysis; Future - Cancel: Complete Urinalysis - NM Renal Function Mag 3 with Lasix; Future - Complete Urinalysis; Future - Urine culture; Future - NM kidney flow/function w/wo lasix; Future Addressed gross hematuria/flank pain: Renal US today Due to flank pain. R/o hydronephrosis given past OR note Reviewed prior CT Urogram from F Reviewed prior cystoscopy and biopsy Squamous metaplasia Urine culture today Lasix renal scan Ordered given narrowing of left ureter. Likely related to edema per note The patient was instructed to call the office or go to the nearest ER if worsening symptoms such as fever > 101F, inability to urinate, intractable nausea or vomiting, or uncontrolled pain. The patient verbalizes understanding. Follow Up: ABHIJEET Wong APRN [facility] Urology Subjective: Ms. Araiza is a 47 y.o. female who presents to the office regarding gross hematuria Records have been reviewed. HPI Presents today for gross hematuria and flank pain. Flank pain is accompanied with nausea, frequency, and urgency Denies fever, chills, dysuria. She is here for a second opinion given her below history Prior workup has been: urine culture, CT, and urine cytology Gross hematuria history: Pt evaluated by Dr. Ashley Fair for gross hematuria S/P Cytology- negative for high grade urothelial carcinoma, fungal species. 06/10/2023 -Cystoscopy-squamous metaplasia 06/11/2023 OR cystoscopy-white patchy area on the trigone- 1 cm diameter - biopsy completed negative- squamous metaplasia 07/04/2023- CTAP- negative 07/06/2023- cystoscopy, bilateral retrograde pyelogram, attempted left ureteroscopy -unsuccessful left ureteroscopy due to narrow ureter that was unable to accomodate scope secondary to edema - 6x 26 stent was placed. ---- unable to tolerate stent therefore was removed later that day. Evaluated by [facility] urology as well in [facility] -CT Urogram ordered given persistent pain and hematuria - negative - discussed following up PRN Review of Systems All pertinent positives and negatives per HPI as stated above. Social History Social History Toba (more content not included)... Normal [facility] Urinalysis complete panel (U )Ordered By: Jermaine Smallwood on 10-15-2023 Bacteria LM.HPF (Urine sed) [#/Area] Few Abnormal Negative /HPF [facility] Bilirubin Ql (U) Negative Negative mg/dL [facility] Clarity (U) Clear Clear [facility] Color (U) Light Yellow Lt. Yellow [facility] Epithelial cells.squamous LM.HPF (Urine sed) [#/Area] 3-5 [facility] Glucose Ql (U) Normal Normal (<70) mg/dL [facility] Hemoglobin Ql (U) 0.03 mg/dL Abnormal Negative [facility] Interpretation and review of laboratory results Abnormal [facility] Ketones (U) [Mass/Vol] Negative Negat aurelia mg/dL [facility] Leukocyte esterase Test strip Ql (U) Negative Negative Eve/uL [facility] Mucus LM.HPF (Urine sed) [#/Area] Moderate Abnormal Negative /LPF [facility] Nitrite Ql (U) Negative Negative [facility] pH (U) 6.5 [pH] 5.0 - 8.0 pH [facility] Protein (U) [Mass/Vol] Negative Negat aurelia mg/dL [facility] RBC LM.HPF (Urine sed) [#/Area] 3-5 Abnormal [facility] Specific gravity (U) [Rel density] 1.022 1.005 - 1.030 [facility] Urobilinogen (U) [Mass/Vol] Normal Normal (0-1) mg/dL [facility] WBC LM.HPF (Urine sed) [#/Area] 0-2 [facility] 36on 10-11-2023 36 Rx sent. Follow up a s scheduled. [facility] 36 Prescription Request : Last medication check: 09/15/2023 Last physical exam: 10/30/2022 Next scheduled appointment: 11/03/2023 Last date of refill on this medication: 09/15/2023 [facility] Gastroenterology Visit Repor ton 10-11-2023 Gastroenterology Visit Report [facility]enter[facility] [address] [place] [address] OFFICE VISIT Date of Service: 10/11/23 MR#: [id number] Acct: [id number] Name: MARCELINO ARAIZA Rep #: [id number] : 1975 Provider: Tanna Tam DO Age/Sex: 47/F Location: [facility] Status: Signed Intake Vital Signs 04/21/23 14:41 07/05/23 10:57 07/14/23 09:43 Height 5 ft 8 in 5 ft 8 in 5 ft 8 in Intake Visit Reasons: 6 M FU Chief Complaint: Allergies ofloxacin Allergy (Severe, Verified 10/01/23 09:37) SWELLING Environmental Allergies: Uncoded Allergy (Intermediate, Verified 10/01/23 09:37) Itching Medications ???Medication ???Instructions ???Recorded ???Confirmed ???Type albuterol sulfate 90 mcg/actuation 2 puff inhalation Q6H PRN 12/10/21 10/11/23 Rx aerosol inhaler shortness of breath or wheezing #8.5 grams dicyclomine 10 mg capsule 10 mg PO TID PRN abdominal pain 06/03/22 10/11/23 History bupropion HCl 300 mg 24 hr tablet, 300 mg PO QAM #90 tabs 06/24/22 10/11/23 Rx extended release (Wellbutrin XL) lisinopril 5 mg tablet 5 mg PO DAILY #30 tabs 08/13/22 10/11/23 Rx ondansetron 4 mg disintegrating 4 mg PO Q8H PRN nausea and 09/01/22 10/11/23 Rx tablet vomiting #30 tabs fluoxetine 40 mg capsule 40 mg PO DAILY #90 caps 09/21/22 10/11/23 Rx albuterol sulfate 2.5 mg/0.5 mL 5 mg inhalation Q6H PRN shortness 09/24/22 10/11/23 Rx solution for nebulization of breath or wheezing #30 ea pantoprazole 40 mg tablet,delayed 40 mg PO DAILY #90 tabs 01/19/23 10/11/23 Rx release cephalexin 250 mg capsule 250 mg PO PRN PRN AFTER INTERCOURSE 06/03/23 10/11/23 History fluticasone propionate 50 1 spray intranasal DAILY PRN 06/03/23 10/11/23 History mcg/actuation nasal allergy symptoms spray,suspension (Flonase Allergy Relief) meloxicam 15 mg tablet 15 mg PO DAILY Pain 06/03/23 10/11/23 History multivitamin-ferrous 1 tab PO DAILY 06/03/23 10/11/23 History fumarate-folic acid 18 mg-400 mcg tablet (Centrum Complete) clindamycin phosphate 1 % topical 1 applic topical BID 07/04/23 10/11/23 History gel cream base no.175 (bulk) 1 applic topical .BIW 07/04/23 10/11/23 History (Versatile Rich topical cream) triamcinolone acetonide 0.1 % 1 applic topical PRN 07/04/23 10/11/23 History topical cream PFSH Medical History (Updated 10/01/23 @ 09:57 by Julio C Goyal MD) Osteoarthritis of right knee Right knee pain Urinary tract infection Gross hematuria Lesion of bladder Wears glasses Anxiety Alcohol use History of steroid therapy Arthritis Bladder disease Easy bruising Back pain Difficulty swallowing History of IBS Gastric reflux Non-smoker Hypertension History of nasal obstruction Nausea Bloating History of skin cancer IBS (irritable bowel syndrome) History of gastrointestinal disorder Hx of carpal tunnel syndrome Hx: UTI (urinary tract infection) Hx of seasonal allergies Cough Herpes zoster Pelvic pain Menorrhagia with regular cycle Asthma Anemia Depression Acid reflux Vitamin D deficiency Chronic diarrhea History of anxiety Surgical History History of esophagogastroduodenoscopy (EGD) Hx of colonoscopy S/P endometrial ablation Status post hysteroscopy History of tonsillectomy History of carpal tunnel surgery Hx of cholecystectomy Family History Grandmother Heart disease Colon cancer Diabetes Grandmother Diabetes Father Rheumatoid arthritis Mother Anxiety Arthritis Depression Brother Asthma Allergies Grandfather Cancer Social History adopted: No household members: family housing: apartment number of children: 3 current occupational status: employed current occupation: [employer]- Patient Liason sexually active: Yes Smoking Status: Never smoker Electronic Cigarette Use: not used alcohol intake: current alcohol intake frequency: holidays/special occasions only details: social substance use type: does not use caffeine: Yes what type of physical activity do you participate in: none and walking frequency: 1-2 times per week seatbelt use: always do you feel safe at home: Yes additional social history: Single HPI HPI Chief Complaint: Details: MARCELINO ARAIZA, is a 47 F who presents to the office today for follow up. FH paternal grandmother colon cancer [facility] with epigastric/RUQ pain, bloating, nausea and epigastric pain. Stools are loose and oily with associated flank pain. ? EGD 11.07.20 without visual abnormality ? Breath test 03.04.22 lactose, glucose, hydrogen WNL ? (more content not included)... Normal [facility] Knee 4 or More Viewson 09-30 Knee 4 or More Views [facility] Radiology [address] [place] [address] Knee 4 or More Views MR#: [id number] Acct: [id number] Name: MARCELINO ARAIZA Rep #: [id number] : 1975 F 47 From: Zackery Harper MD PCP: TEJINDER Le Status: REG AMB Study: Knee 4 or More Views Date of Exam: 10/01/23 Exam# [id number] Ordering Dr: Julio C Goyal MD [id number] STUDY: X-RAY - RIGHT KNEE REASON FOR EXAM: Female, 47 years old. Pain. TECHNIQUE: 4 views of the right knee. COMPARISON: None. FINDINGS: Normal visualized distal femur. Normal visualized proximal tibia and fibula. Normal proximal tibiofibular articulation. There is no demonstrated fracture. Normal medial femorotibial compartment. Normal lateral femorotibial compartment. There is minimal degenerative arthrosis of the patellofemoral articulation. There is a tiny joint effusion. The soft tissue structures are unremarkable. RAD/Knee 4 or More Views IMPRESSION: Minimal degenerative arthrosis of the patellofemoral articulation. Tiny joint effusion. No demonstrated fracture. Electronically Signed: Zackery Harper MD at 9:55 EDT , CC: TEJINDER Gomez; Dr. 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 Julio C gonzalez MD Age/Sex: 47/F [facility] Status: Signed Intake Vital Signs 07/14/23 09:43 Height 5 ft 8 in Intake Visit Reasons: RIGHT KNEE Chief Complaint: Right knee Is patient in pain?: No Allergies ofloxacin Allergy (Severe, Verified 10/01/23 09:37) SWELLING Environmental Allergies: Uncoded Allergy (Intermediate, Verified 10/01/23 09:37) Itching Medications ???Medication ???Instructions ???Recorded ???Confirmed ???Type albuterol sulfate 90 mcg/actuation 2 puff inhalation Q6H PRN 12/10/21 10/01/23 Rx aerosol inhaler shortness of breath or wheezing #8.5 grams dicyclomine 10 mg capsule 10 mg PO TID PRN abdominal pain 06/03/22 10/01/23 History bupropion HCl 300 mg 24 hr tablet, 300 mg PO QAM #90 tabs 06/24/22 10/01/23 Rx extended release (Wellbutrin XL) lisinopril 5 mg tablet 5 mg PO DAILY #30 tabs 08/13/22 10/01/23 Rx ondansetron 4 mg disintegrating 4 mg PO Q8H PRN nausea and 09/01/22 10/01/23 Rx tablet vomiting #30 tabs fluoxetine 40 mg capsule 40 mg PO DAILY #90 caps 09/21/22 10/01/23 Rx albuterol sulfate 2.5 mg/0.5 mL 5 mg inhalation Q6H PRN shortness 09/24/22 10/01/23 Rx solution for nebulization of breath or wheezing #30 ea pantoprazole 40 mg tablet,delayed 40 mg PO DAILY #90 tabs 01/19/23 10/01/23 Rx release cephalexin 250 mg capsule 250 mg PO PRN PRN AFTER INTERCOURSE 06/03/23 10/01/23 History fluticasone propionate 50 1 spray intranasal DAILY PRN 06/03/23 10/01/23 History mcg/actuation nasal allergy symptoms spray,suspension (Flonase Allergy Relief) meloxicam 15 mg tablet 15 mg PO DAILY Pain 06/03/23 10/01/23 History multivitamin-ferrous 1 tab PO DAILY 06/03/23 10/01/23 History fumarate-folic acid 18 mg-400 mcg tablet (Centrum Complete) clindamycin phosphate 1 % topical 1 applic topical BID 07/04/23 10/01/23 History gel cream base no.175 (bulk) 1 applic topical .BIW 07/04/23 10/01/23 History (Versatile Rich topical cream) triamcinolone acetonide 0.1 % 1 applic topical PRN 07/04/23 10/01/23 History topical cream PFSH Medical History (Updated 10/01/23 @ 09:57 by Julio C Goyal MD) Osteoarthritis of right knee Right knee pain Urinary tract infection Gross hematuria Lesion of bladder Wears glasses Anxiety Alcohol use History of steroid therapy Arthritis Bladder disease Easy bruising Back pain Difficulty swallowing History of IBS Gastric reflux Non-smoker Hypertension History of nasal obstruction Nausea Bloating History of skin cancer IBS (irritable bowel syndrome) History of gastrointestinal disorder Hx of carpal tunnel syndrome Hx: UTI (urinary tract infection) Hx of seasonal allergies Cough Herpes zoster Pelvic pain Menorrhagia with regular cycle Asthma Anemia Depression Acid reflux Vitamin D deficiency Chronic diarrhea History of anxiety Surgical History History of esophagogastroduodenoscopy (EGD) Hx of colonoscopy S/P endometrial ablation Status post hysteroscopy History of tonsillectomy History of carpal tunnel surgery Hx of cholecystectomy Family History Grandmother Heart disease Colon cancer Diabetes Grandmother Diabetes Father Rheumatoid arthritis Mother Anxiety Arthritis Depression Brother Asthma Allergies Grandfather Cancer Social History adopted: No household members: family housing: apartment number of children: 3 current occupational status: employed current occupation: [employer]- Patient Liason sexually active: Yes Smoking Status: Never smoker Electronic Cigarette Use: not used alcohol intake: current alcohol intake frequency: holidays/special occasions only details: social substance use type: does not use caffeine: Yes what type of physical activity do you participate in: none and walking frequency: 1-2 times per week seatbelt use: always do you feel safe at home: Yes additional social history: Single HPI RIGHT KNEE Details: This documentation accurately reflects the service provided and the decisions made by me, Dr. Julio C Goyal MD 10/01/23 0811. Part of today???s visit was documented by [ ], acting as scribe. MARCELINO ARAIZA is a 47 year old F here today for right knee pain. Previously seen for the left knee in this office by the JEANETH Dee under Dr. Burnham supervision. hurts lateral side. doing lots of walking. no mechanical symptoms. no swelling. worse o (more content not included)... Normal [facility] Progress Noteon 09-15-2023 Progress Note 09/15/2023 Marcelino Araiza (: 1975) is a 47 y.o. female , Established patient, here for evaluation of the following chief complaint(s): Follow-up, Depression, and Anxiety Patient was identified and seen today via Telehealth by agreement and consent. I used the following Telehealth technology: Audio and video capabilities. Patient location: Patient Location: Home. This patient encounter is appropriate and reasonable under the circumstances: Behavioral Health . The patient has been advised of the potential risks and limitations of this mode of treatment (including but not limited to the absence of in-person examination) and has agreed to be treated in a remote fashion in spite of them. Any and all of the patient's/patient's family's questions on this issue have been answered and I have made no promises or guarantees to the patient. The patient has also been advised to contact this office for worsening conditions or problems, and seek emergency medical treatment and/or call 911 if the patient deems either necessary. The patient stated that they are currently in the [facility]. If the patient is a minor, permission has been obtained by the parent or guardian for the patient to receive medical care at this visit. ASSESSMENT/PLAN: 1. Depressive disorder - FLUoxetine (PROzac) 40 MG capsule; Take 1 capsule (40 mg) by mouth daily. Take with 20 mg for a total of 60 mg, Starting Wed09/15/2023, No Print - FLUoxetine (PROzac) 20 MG capsule; Take 1 capsule (20 mg) by mouth daily. Take with 40 mg dose for a total of 60 mg, Starting Wed09/15/2023, No Print - Stable. Would like to continue on 60 mg dose at this time and follow up in October as scheduled. - Continue Wellbutrin as prescribed. 2. Anxiety - FLUoxetine (PROzac) 40 MG capsule; Take 1 capsule (40 mg) by mouth daily. Take with 20 mg for a total of 60 mg, Starting 09/15/2023, No Print - FLUoxetine (PROzac) 20 MG capsule; Take 1 capsule (20 mg) by mouth daily. Take with 40 mg dose for a total of 60 mg, Starting 09/15/2023, No Print - Stable. Would like to continue on 60 mg dose at this time and follow up in October as scheduled. - Continue Wellbutrin as prescribed. Follow up in 7 weeks (on 11/03/2023) for Next scheduled follow-up. SUBJECTIVE/OBJECTIVE: JUSTO Cochran presents today for a video virtual visit for follow up on her depression and anxiety. She had the dose of her Prozac increased at her previous visit and started to develop headaches. Cut her dose back down to 60 mg and headaches improved. Continues to take her Wellbutrin as prescribed. Still notices a lack of motivation and desire to do things. Denies thoughts of self-harm or suicidal ideations. Review of Systems Psychiatric/Behavioral: Positive for dysphoric mood. Negative for self-injury and suicidal ideas. The patient is nervous/anxious. There were no vitals filed for this visit. There is no height or weight on file to calculate BMI. Physical Exam Constitutional: General: She is not in acute distress. HENT: Head: Normocephalic and atraumatic. Pulmonary: Effort: Pulmonary effort is normal. Comments: Speaking in full sentences. Neurological: Mental Status: She is alert and oriented to person, place, and time. Psychiatric: Mood and Affect: Mood normal. Behavior: Behavior normal. Thought Content: Thought content normal. Judgment: Judgment normal. An electronic signature was used to authenticate this note. TERE Chung CNP 09/15/2023 11:07 AM [facility] 36on 09-14-2023 36 Left a message to re turn call to [facility] for appointment with Ashley on 09/15/2023 11:00 am (VV). If the patient calls back during business hours, please transfer to our backline. Otherwise, Please arrive 15 minutes early with your insurance card and photo ID. Also sending [employer] message Thank you! [facility] 36on 08-30-2023 36 Reached out to pt, robby t prefers [place] [facility]. Scheduled first available with Dr. Holden on 11/10/23 in the [place] [facility] and placed on the wait list in case of a cancellation. [facility] 36on 08-27-2023 36 Name of Caller: Harriett rico Contact Reason for Appointment: Patient called to schedule an appointment per referral. R31.0 (ICD-10-CM) - Gross hematuria R10.32 (ICD-10-CM) - Left lower quadrant abdominal pain Please advise Office Name: Urology [facility] Progress Noteon 08-27-2023 Progress Note 08/27/2023 Marcelino Araiza (: 1975) is a 47 y.o. female , Established patient, here for evaluation of the following chief complaint(s): Follow-up, Depression, and Anxiety Patient was identified and seen today via Telehealth by agreement and consent. I used the following Telehealth technology: Audio and video capabilities. Patient location: Patient Location: Home. This patient encounter is appropriate and reasonable under the circumstances: Behavioral Health . The patient has been advised of the potential risks and limitations of this mode of treatment (including but not limited to the absence of in-person examination) and has agreed to be treated in a remote fashion in spite of them. Any and all of the patient's/patient's family's questions on this issue have been answered and I have made no promises or guarantees to the patient. The patient has also been advised to contact this office for worsening conditions or problems, and seek emergency medical treatment and/or call 911 if the patient deems either necessary. The patient stated that they are currently in the state [facility]. If the patient is a minor, permission has been obtained by the parent or guardian for the patient to receive medical care at this visit. ASSESSMENT/PLAN: 1. Depressive disorder - FLUoxetine (PROzac) 40 MG capsule; Take 2 capsules (80 mg) by mouth daily., Starting Wed08/27/2023, Normal - Improving but not at goal. Will increase dose to 80 mg daily and do another close follow up in 2 weeks. 2. Anxiety - FLUoxetine (PROzac) 40 MG capsule; Take 2 capsules (80 mg) by mouth daily., Starting 08/27/2023, Normal - Improving but not at goal. Will increase dose to 80 mg daily and do another close follow up in 2 weeks. Follow up in about 2 weeks (around 09/10/2023). SUBJECTIVE/OBJECTIVE: JUSTO Cochran presents today for a video virtual visit for follow up on her depression and anxiety. Had the dose of her Prozac increased to 60 mg at her previous appointment and states she has noticed some improvement but is still not where she wants to be. Still struggles with lack of motivation and feelings of sadness. Has noticed some improvement with the dose increase. Denies any side effects with the higher dose and is interested in the increasing the dose a little more. Review of Systems Cardiovascular: Negative for chest pain. Psychiatric/Behavioral: Positive for dysphoric mood. Negative for self-injury and suicidal ideas. The patient is nervous/anxious. There were no vitals filed for this visit. There is no height or weight on file to calculate BMI. Physical Exam Constitutional: General: She is not in acute distress. Appearance: She is not ill-appearing. Pulmonary: Effort: Pulmonary effort is normal. Comments: Speaking in full sentences. Skin: Coloration: Skin is not pale. Findings: No erythema. Neurological: Mental Status: She is alert and oriented to person, place, and time. Psychiatric: Mood and Affect: Mood normal. Behavior: Behavior normal. Thought Content: Thought content normal. Judgment: Judgment normal. An electronic signature was used to authenticate this note. TERE Chung CNP 08/27/2023 9:55 AM Normal [facility] 36on 08-26-2023 36 Had to send Zumbox message to confirm appointment due to phone issues. Normal [facility] Cervical or vaginal specimen microscopic examination by liquid based cytology (reportOrdered By: Denise Duff on 07-14-2023 Cytology report Cyto stain.thin prep Doc (Cvx/Vag) Comment . [facility] Comment on above: Criteria not met, HP V Genotype not performed.Performed at: [address] [id number] Director: Alysa Angela MD, Phone: [phone] at: [facility] [id number] [place], [place] [id number] Director: Gerald Rios MD, Phone: [phone] at: G - [facility] [address] [id number] Director: Alysa Angela MD, Phone: [phone] Cervical or vagninal specime n microscopic examination by cytology stain (reported asOrdered By: Denise Duff on 07-14-2023 Cytology report Cyto stain Doc (Cvx/Vag) Comment . [facility] Comment on above: The Pap smear is a s creening test designed to aid in thedetection of premalignant and malignant conditions of theuterine cervix. It is not a diagnostic procedure andshould not be used as the sole means of detecting cervicalcancer. Both false-positive and false-negative reports dooccur. Culture, urineOrdered By: Josie Duff on 07-14-2023 Bacteria identified Cx Nom (U) Culture exhibits no growth. [facility] Detection in cervical specim en of any of human papilloma virus (HPV) 16, 18, 31, 33,Ordered By: Denise Duff on 07-14-2023 HPV 16+18+31+33+35+39+45+5 1+52+56+58+59+66+68 DNA Probe+sig amp Ql (Cvx) Negative Negative [facility] Comment on above: This nucleic acid am plification test detects fourteen high- risk HPV types (16,18,31,33,35,39,45,51,52,56,58,59,66,68)without differentiation. Laboratory - Chemistry and C hemistry - challengeon 07-14-2023 Bilirubin Ql (U) Negative [facility] Glucose Ql (U) Negative [facility] Ketones Ql (U) Negative [facility] pH (U) 5.0 [pH] [facility] Specific gravity (U) [Rel density] 1.030 [facility] Urobilinogen (U) [Mass/Vol] Negative [facility] Laboratory - CytologyOrdered By: Denise Duff on 04-17-2024 [employer] [place] Cyto stain Nom (Cvx/Vag) [ID] Comment . [facility] Comment on above: Kerry Farias, Cytotec hnologist (ASCP) Pathologist Cyto stain Nom (Cvx/Vag) [ID] Comment . [facility] Comment on above: Rich Gutiérrez MD, Pa thologist Recommended follow-up Cyto stain Nom (Cvx/Vag) Comment . [facility] Comment on above: Suggest follow up as clinically appropriate. Laboratory - Hematology and Cell countson 07-14-2023 Hemoglobin Ql (U) Small [facility] Laboratory - Miscellaneous t estsOrdered By: Denise Duff on 07-14-2023 Service comment (Unsp spec) [Interp] . . [facility] Laboratory - Specimen inform ationon 07-14-2023 Clarity (U) Cloudy [facility] Color (U) HAMLET [facility] Laboratory - Urinalysison Nitrite Ql (U) Negative [facility] Protein Ql (U) Negative [facility] No Panel InformationOrdered By: Denise Duff on 07-14-2023 Pathology report final diagnosis Narrative Comment . [facility] Comment on above: R87.610 No Panel Informationon 07-13 Urine Leukocytes Positive [facility] Urine Non-Hemolyzed Blood [facility] Thin prep Papanicolaou smear with manual screeningOrdered By: Denise Duff on 07-14-2023 Thin prep Papanicolaou smear with manual screening Comment . [facility] Comment on above: EPITHELIAL CELL ABNO RMALITY.ATYPICAL SQUAMOUS CELLS OF UNDETERMINED SIGNIFICANCE (ASC-US). This liquid based Th inPrep(R) pap test was screened withthe use of an image guided system. CT UROGRAM WO/W IVCONon 06-27 CT UROGRAM WO/W IVCON * * *Final Report* * * DATE OF EXAM: Jul 09 2023 2:21PM [facility] 0560 - CT UROGRAM WO/W IVCON / PROCEDURE REASON: Gross hematuria * * * * Physician Interpretation * * * * EXAMINATION: CT ABDOMEN AND PELVIS WITHOUT AND WITH IV CONTRAST, INCLUDING EXCRETORY PHASE IMAGING (CT UROGRAM) 3D RECONSTRUCTIONS CLINICAL HISTORY: Hematuria. Persistent suprapubic and flank discomfort TECHNIQUE: CT urogram protocol including unenhanced, renal parenchymal phase and excretory phase renal imaging was obtained following IV contrast. Normal saline was also administered IV. No oral contrast was given. 3D image post-processing was performed and archived at the request of the referring physician, on the CT scanner workstation without concurrent physician supervision. MQ: CTU_2 Contrast: IV: 150 ml of Omnipaque 300 IV Saline: 100 ml of 0.9% NACL Solution Oral Contrast: None CT Radiation dose: Integrated dose-length product (DLP) for this visit = 2629 mGy*cm. CT Dose Reduction Employed: Automated exposure control(AEC) and iterative recon COMPARISON: None. RESULT: Kidneys and urinary tract: Right: There are no renal calculi or masses. The opacified calices, renal pelvis and ureter are normal without dilation, filling defect, or stricture. Left: There are no renal calculi or masses. The opacified calices, renal pelvis and ureter are normal without dilation, filling defect, or stricture. Bladder: No filling defect, calculus, focal or diffuse wall thickening. Abdomen and Pelvis: Liver: No mass. Biliary: No bile duct dilation. Spleen: No mass. No splenomegaly. Pancreas: No mass or duct dilation. Adrenals: No mass. GI tract: No dilation or wall thickening. The appendix appears normal Lymph nodes: No abdominal or pelvic lymphadenopathy. Mesentery/Peritoneum: No ascites or mass. Retroperitoneum: No mass. Vasculature: - Abdominal aorta and iliac arteries: No aneurysm. - Celiac and SMA: Patent without stenosis. - Portal venous system (SMV, splenic vein, portal vein and branches): Patent. - Hepatic veins: Incompletely opacified, likely due to early phase of enhancement. Pelvis: No mass, ascites or fluid collection. Bones and Soft Tissues: No significant finding. Lower thorax: Unremarkable. Localizer images: No additional findings. IMPRESSION: No nephrolithiasis, ureterolithiasis, gross obstructive uropathy, or suspicious renal lesion. Brazing Machine Operator Automatic: PSCB Transcribe Date/Time: Jul 13 2023 8:16A Dictated by : RACHEL BLEVINS MD This examination was interpreted and the report reviewed and electronically signed by: RACHEL BLEVINS MD on Jul 13 2023 8:26AM EST [id number] Normal [facility] CNOVon 07-08-2023 CNOV Office Visit (UROLMN ) MARCELINO ARAIZA ([id number]) 1975 F Date Time Provider Department 07/08/23 9:00 AM MARIA ELENA CARVAJAL During your visit today, we recorded the following information about you: Pulse Blood pressure Weight Height 97/minute 134/79 108 kg 1.727 m Ileana Cherry MA 07/08/2023 8:58 AM Signed Post Void Residual done on patient with 0 cc residual volume remaining. notified. SHADIA Springer Monika, APRN.CHIEF CATALYST OPERATOR 07/08/2023 11:59 AM Signed Referring Provider: Chief Complaint: clot hematuria HPI Marcelino Araiza is a 47 year old female with history of clot hematuria and left abdomen / flank pain who presents for evaluation. Hx of hematuria in 05/2023. She is s/p cystoscopy with bladder biopsy and fulguration on 06/10/2023. MICROSCOPIC DIAGNOSIS Urinary bladder tumor, biopsy; Urothelial hyperplasia with squamous differentiation. Mild chronic inflammation. No evidence of malignancy. She reports hematuria again began on 07/01/23. Saw local urologist (Dr. Ashley Fair) on 07/02/23- urine culture sent. Negative per patient report. She presented to [facility] ED on 07/04/23 with clot hematuria, left suprapubic pressure, and left flank pain. CT abd/pel 07/04/23 with no acute finding. She is s/p cystoscopy, bilateral retrograde pyelograms, attempted left ureteroscopy, and left ureteral stent insertion on 07/05/23. (Operative report below) She states she was having severe pain due to stent with vomiting. She later presented to her urologist on 07/06/2023 who then removed the stent. Plan for observation of hematuria and has scheduled follow up visit on 08/04/23. Interval Hx: Having persistent left suprapubic and left flank discomfort- some improvement since stent removed. Taking tylenol as needed. No vomiting but intermittent nausea. No fevers/chills. No current hematuria. Currently on 3 day course of PO Keflex. UA today: 3+ Hgb; >25 RBC; all other findings WNL States she had history of recurrent UTI's last year but this had subsided on its own. No issues with UTI's in the past year. Otherwise, no significant urologic history. She does not take any blood thinning medications. 1-Duration: 2023 2-Location: urine 3-Severity: see HPI 4-Quality: gross hematuria 5-Context: Void 6-Timing: intermittently 7-Modifying factors: see HPI 8-Associated signs AND symptoms: pain PMH: obesity; GERD; COVID + (06/14/23); Herpes Zoster (06/16/23- resolved); exercise induced asthma; anxiety; HTN; OA; IBS PSH: TURBT; cholecystectomy; uterine ablation; tonsillectomy; wisdom tooth extraction Social Hx: never smoker; social ETOH; no drug use Family History of Genitourinary Cancer: No LABS 07/03/2022 Creatinine 0.73 11/09/[address] ABD/PEL WO CON 07/04/2023 IMPRESSION: No suspicious solid organ abnormality No free intraperitoneal fluid, air, or suspicious adenopathy. Normal appendix visualized No interval change FINDINGS: The visualized lung bases are unremarkable. [...] The appendix is visualized and appears normal. Appendix seen on coronal recon images 68 through 74 Normal abdominal aorta. Normal inferior vena cava. Normal retroperitoneum. Normal urinary bladder. Normal-appearing uterus. No suspicious enlarged cystic mass or free fluid in the pelvis Normal abdominal wall. Normal osseous structures. Date of Procedure: 07/05/23 Pre-Operative Diagnosis: Gross hematuria, left flank pain Post-Operative Diagnosis: Same Surgery/Procedure Performed:: Cystoscopy, bilateral retrograde pyelograms, attempted left ureteroscopy, left ureteral stent insertion Surgeon: Ashley Fair Type of Anesthesia: General Description of Procedure: The patient is a 47-year-old female who had a bladder biopsy with fulguration a few weeks ago who presented to the emergency room with recurrent gross hematuria with clot. She now presents for evaluation with cystoscopy. Informed consent was obtained. She was taken to the operating room and placed on the operating room table. Anesthesia monitored the head, neck, airway, IV access and vital signs throughout the case. Once anesthesia was appropriately administered, she was placed into dorsolithotomy position was prepped and draped in usual sterile fashion. The cystoscope was inserted through the urethra under direct visualization into the urinary bladder. The area of biopsy was identified an (more content not included)... Normal [facility] CYTOLOGY NON-GYNon CASE REPORT Normal [facility] Comment on above: Order Comment: Speci men Type: BLOOD SPECIMEN Ordering Facility: [facility] Address: [address] [place] [address] Result Comment: [facility] Cytology Report Case: [id number] Authorizing Provider: Maria Elena Carvajal, Collected: 07/08/2023 07:50 AM APPLICATION SUPPORT INTERN.CHIEF CATALYST OPERATOR Ordering Location: Urology Received: 07/09/2023 07:50 AM Pathologist: Carmelita Menjivar MD Specimen: Urine (Nonspecific) Performed By: #### 1 1571-07, 1987-07, #### [facility] CLIA [id number] [address] [place] [address] [place] CLINICAL HISTORY gross hematuria Normal [facility] Comment on above: Order Comment: Speci men Type: BLOOD SPECIMEN Ordering Facility: [facility] Address: [address] [place] [address] Performed By: #### 1 1571-07, #### [facility] CLIA [id number] [address] [place] [address] [place] FINAL DIAGNOSIS Normal [facility] Comment on above: Order Comment: Speci men Type: BLOOD SPECIMEN Ordering Facility: [facility] Address: [address] [place] [address] Result Comment: A - Urine (Nonspecific), Urine Negative for high-grade urothelial carcinoma. Blood., Fungal organisms morphologically consistent with Elvira species. Performed By: #### 1 1571-07, 1987-07, #### [facility] CLIA [id number] [address] [place] [address] [place] FINAL PERFORMING LAB Normal [facility] Comment on above: Order Comment: Speci men Type: BLOOD SPECIMEN Ordering Facility: [facility] Address: [address] [place] [address] Result Comment: Tech nical component, home health outreach coordinator screening performed at [facility], [address] [place] [address] CLIA# [id number] Diagnostic interpretation performed at [facility], [address] [place] [address] CLIA# [id number] Aircraft Maintenance Manager: Edson Parker M.D. Performed By: #### 1 1571-07, 1987-07, #### [facility] CLIA [id number] [address] [place] [address] [place] GROSS DESCRIPTION Normal [facility] Comment on above: Order Comment: Speci men Type: BLOOD SPECIMEN Ordering Facility: [facility] Address: [address] [place] [address] Result Comment: A. U rine (Nonspecific) 40 cc clear yellow fluid. ThinPrep prepared. Performed By: #### 1 1571-07, 1987-07, #### [facility] CLIA [id number] [address] [place] [address] [place] URINALYSIS, REFLEX MICROSCOP ICon 07-08-2023 Bilirubin Ql (U) Negative Negative [facility] Clarity (Unsp spec) Clear Clear [facility] Color (U) Yellow Yellow [facility] Epithelial cells LM.HPF (Urine sed) [#/Area] Few [facility] Glucose Test strip (U) [Mass/Vol] Negative Trace, Negative [facility] Hemoglobin Ql (U) 3+ Abnormal Negative, Trace [facility] Ketones Ql (U) Negative Negative, Trace [facility] Leukocyte esterase Test strip Ql (U) Negative Negative, 25 Eve/uL [facility] Nitrite Ql (U) Negative Negative [facility] pH (U) 6.0 [pH] 5.0 - 8.0 [facility] Protein (U) [Mass/Vol] Negative Trace , Negative [facility] RBC LM.HPF (Urine sed) [#/Area] /[HPF] Abnormal 0-3 /HPF [facility] Specific gravity (U) [Rel density] 1.018 1.005 - 1.030 [facility] Urobilinogen Ql (U) Normal Normal [facility] WBC LM.HPF (Urine sed) [#/Area] 0-5 /HPF 0-5 /HPF [facility] Bilirubin Ql (U) Negative Normal Negative [facility] Comment on above: Order Comment: Speci men Type: BLOOD SPECIMEN Ordering Facility: [facility] Address: [address] [place] [address] Performed By: #### 1 1571-07, #### [facility] CLIA [id number] [address] [place] [address] [place] Clarity (Unsp spec) Clear Normal Clear [facility] Comment on above: Order Comment: Speci men Type: BLOOD SPECIMEN Ordering Facility: [facility] Address: [address] [place] [address] Performed By: #### 1 1571-07, #### [facility] CLIA [id number] [address] [place] [address] [place] Color (U) Yellow Normal Yellow [facility] Comment on above: Order Comment: Speci men Type: BLOOD SPECIMEN Ordering Facility: [facility] Address: [address] [place] [address] Performed By: #### 1 1571-07, #### [facility] CLIA [id number] [address] [place] [address] [place] Epithelial cells LM.HPF (Urine sed) [#/Area] Few Normal [facility] Comment on above: Order Comment: Speci men Type: BLOOD SPECIMEN Ordering Facility: [facility] Address: [address] [place] [address] Performed By: #### 1 1571-07, 1987-07, #### [facility] CLIA [id number] [address] [place] [address] [place] Glucose Test strip (U) [Mass/Vol] Negative Normal Trace, Negative [facility] Comment on above: Order Comment: Speci men Type: BLOOD SPECIMEN Ordering Facility: [facility] Address: [address] [place] [address] Performed By: #### 1 1571-07, 1987-07, #### [facility] CLIA [id number] [address] [place] [address] [place] Hemoglobin Ql (U) 3+ Abnormal Negative, Trace [facility] Comment on above: Order Comment: Speci men Type: BLOOD SPECIMEN Ordering Facility: [facility] Address: [address] [place] [address] Performed By: #### 1 1571-07, 1987-07, #### [facility] CLIA [id number] [address] [place] [address] [place] Ketones Ql (U) Negative Normal Negative, Trace [facility] Comment on above: Order Comment: Speci men Type: BLOOD SPECIMEN Ordering Facility: [facility] Address: [address] [place] [address] Performed By: #### 1 1571-07, 1987-07, #### [facility] CLIA [id number] [address] [place] [address] [place] Leukocyte esterase Test strip Ql (U) Negative Normal Negative, 25 Eve/uL [facility] Comment on above: Order Comment: Speci men Type: BLOOD SPECIMEN Ordering Facility: [facility] Address: [address] [place] [address] Performed By: #### 1 1571-07, 1987-07, #### [facility] CLIA [id number] [address] [place] [address] [place] Nitrite Ql (U) Negative Normal Negative [facility] Comment on above: Order Comment: Speci men Type: BLOOD SPECIMEN Ordering Facility: [facility] Address: [address] [place] [address] Performed By: #### 1 1571-07, 1987-07, #### [facility] CLIA [id number] [address] [place] [address] [place] pH (U) 6.0 [pH] Normal 5.0-8.0 [facility] Comment on above: Order Comment: Speci men Type: BLOOD SPECIMEN Ordering Facility: [facility] Address: [address] [place] [address] Performed By: #### 1 1571-07, 1987-07, #### [facility] CLIA [id number] [address] [place] [address] [place] Protein (U) [Mass/Vol] Negative Normal Trace , Negative [facility] Comment on above: Order Comment: Speci men Type: BLOOD SPECIMEN Ordering Facility: [facility] Address: [address] [place] [address] Performed By: #### 1 1571-07, 1987-07, #### [facility] CLIA [id number] [address] [place] [address] [place] RBC LM.HPF (Urine sed) [#/Area] /[HPF] Abnormal 0-3 /HPF [facility] Comment on above: Order Comment: Speci men Type: BLOOD SPECIMEN Ordering Facility: [facility] Address: [address] [place] [address] Performed By: #### 1 1571-07, 1987-07, #### [facility] CLIA [id number] [address] [place] [address] [place] Specific gravity (U) [Rel density] 1.018 Normal 1.005-1.03 0 [facility] Comment on above: Order Comment: Speci men Type: BLOOD SPECIMEN Ordering Facility: [facility] Address: [address] [place] [address] Performed By: #### 1 1571-07, 1987-07, #### [facility] CLIA [id number] [address] [place] [address] [place] Urobilinogen Ql (U) Normal Normal Normal [facility] Comment on above: Order Comment: Speci men Type: BLOOD SPECIMEN Ordering Facility: [facility] Address: [address] [place] [address] Performed By: #### 1 1571-07, 1987-07, #### [facility] CLIA [id number] [address] [place] [address] [place] WBC LM.HPF (Urine sed) [#/Area] 0-5 /HPF Normal 0-5 /HPF [facility] Comment on above: Order Comment: Speci men Type: BLOOD SPECIMEN Ordering Facility: [facility] Address: [address] [place] [address] Performed By: #### 1 1571-07, 1987-07, #### [facility] CLIA [id number] [address] [place] [address] [place] Basophil percentageOrdered B y: Ashley Fair on 07-05-2023 Hemoglobin (Bld) [Mass/Vol] 11.7 g/dL 12.0-15.0 [facility] Hematocrit Auto (Bld) [Volum e fraction]Ordered By: Ashley Fair on 07-05-2023 Hematocrit (Bld) [Volume fraction] 34.6 % 37-47 [facility] Absolute lymphocyte countOrd ered By: Cirilo Garcias on 07-04-2023 Lymphocytes Auto (Unsp spec) [#/Vol] 1.90 10*3/uL 0.83-4.51 [facility] Automated lymphocyte count a s percentage of total leukocytesOrdered By: Cirilo Garcias on 07-04-2023 Lymphocytes/100 WBC Auto (Unsp spec) 29.8 % 19-41 [facility] Basophil percentageOrdered B y: Cirilo Garcias on 07-04-2023 Basophils/100 WBC (Bld) 1.1 % 0-1 [facility] Chloride [Moles/Vol] 108 mmol/L 98-107 [facility] Eosinophils/100 WBC (Bld) 4.9 % 0-5 [facility] Glucose [Mass/Vol] 88 mg/dL 74-106 [facility] Hemoglobin (Bld) [Mass/Vol] 13.0 g/dL 12.0-15.0 [facility] Monocytes/100 WBC (Bld) 5.8 % 0-10 [facility] Neutrophils (Bld) [#/Vol] 3.7 10*3/uL 2.0-7.7 [facility] Neutrophils/100 WBC (Bld) 58.2 % 47-70 [facility] Potassium [Moles/Vol] 4.2 mmol/L 3.5-5.1 [facility] Sodium [Moles/Vol] 138 mmol/L 136-145 [facility] WBC (Bld) [#/Vol] 6.4 10*3/uL 4.4-11.0 [facility] Basophil percentage 0 SEEN /hpf 0-5 [facility] Bilirubin Test strip Ql (U)O rdered By: Cirilo Garcias on 07-04-2023 Bilirubin Ql (U) Negative Negative [facility] Determination of erythrocyte mean corpuscular volume (MCV)Ordered By: Cirilo Garcias on 07-04-2023 MCV (RBC) [Entitic vol] 92.6 fL 81-99 [facility] Erythrocyte distribution wid th ratioOrdered By: Cirilo Garcias on 07-04-2023 Erythrocyte distribution width (RBC) [Ratio] 13.0 % 11.6-14.6 [facility] Erythrocyte distribution wid th standard deviationOrdered By: Cirilo Garcias on 07-04-2023 Erythrocyte distribution width (RBC) [Entitic vol] 43.7 fL 35.1-43.9 [facility] Hematocrit Auto (Bld) [Volum e fraction]Ordered By: Cirilo Garcias on 07-04-2023 Hematocrit (Bld) [Volume fraction] 39.0 % 37-47 [facility] Immature granulocytes/100 WB C Auto (Bld)Ordered By: Cirilo Garcias on 07-04-2023 Immature granulocytes/100 WBC (Bld) 0.200 % 0.0-0.9 [facility] Comment on above: IG% - Immature Granu locytes (promyelocytes, myelocytes and metamyelocytes) > 1% indicates that a LEFT SHIFT is Present. Ketones Test strip Ql (U)Ord ered By: Cirilo Garcias on 07-04-2023 Ketones Ql (U) Negative Negative [facility] - Chemistry and C hemistry - challengeOrdered By: Cirilo Garcias on 07-04-2023 CO2 [Moles/Vol] 24.0 mmol/L 21.0-32.0 [facility] Urea nitrogen/Creatinine [Mass ratio] 21.9 mg/mg 10-20 [facility] HCG ( test) Ql (U) Negative [facility] Comment on above: Very dilute urine sp ecimens, as indicated by a low specificgravity, may not contain chemical sales representative levels of hCG. If is still suspected, a first morning urinespecimen should be collected 48 hours later and tested. Laboratory - Hematology and Cell countsOrdered By: Cirilo Garcias on 07-04-2023 MCH (RBC) [Entitic mass] 30.9 pg 27.0-32.0 [facility] MCHC (RBC) [Mass/Vol] 33.3 g/dL 32-36 [facility] Nucleated RBC/100 WBC (Bld) [Ratio] 0 % 0-5 [facility] Platelet mean volume (Bld) [Entitic vol] 9.7 fL 6.2-12.0 [facility] Platelets (Bld) [#/Vol] 282 10*3/uL 150-450 [facility] Mucus LM Ql (Urine sed)Order ed By: Cirilo Garcias on 07-04-2023 Mucus Ql (Urine sed) 0 SEEN /hpf [facility] Nitrite Test strip Ql (U)Ord ered By: Cirilo Garcias on 07-04-2023 Nitrite Ql (U) Negative Negative [facility] No Panel InformationOrdered By: Cirilo Garcias on 07-04-2023 Estimated Creatinine Clearance Calc 124.56 ml/min [facility] Estimated GFR (MDRD) Amer 110 mL/min >60 [facility] Comment on above: GFR Calc Estimated GFR (MDRD) Non-Af Amer 91 mL/min >60 [facility] Comment on above: Non- GFR Calc Urine RBC > 100 SEEN /hpf 0-5 [facility] Protein Test strip Ql (U)Ord ered By: Cirilo Garcias on 07-04-2023 Protein Ql (U) 500 mg/dl Negative [facility] RBC Auto (Bld) [#/Vol]Ordere d By: Cirilo Garcias on 07-04-2023 RBC (Bld) [#/Vol] 4.21 10*6/uL 4.2-5.4 [facility] Serum or plasma calcium patrizia urement (mass/volume)Ordered By: Cirilo Garcias on 07-04-2023 Calcium [Mass/Vol] 8.8 mg/dL 8.5-10.1 [facility] Serum or plasma creatinine m easurement (mass/volume)Ordered By: Cirilo Garcias on 07-04-2023 Creatinine [Mass/Vol] 0.73 mg/dL 0.55-1.02 [facility] Comment on above: The validity of the calculated GFR & GFRAA in patients over 70 years has not been determined. Clinical correlation is essential. Serum or plasma urea nitroge n measurement (mass/volume)Ordered By: Cirilo Gacrias on 07-04-2023 Urea nitrogen [Mass/Vol] 16 mg/dL 7-18 [facility] Squamous epithelial cells de tection in urine sediment by light microscopyOrdered By: Cirilo Garcias on 07-04-2023 Epithelial cells.squamous LM Ql (Urine sed) 0 SEEN /hpf 5-10 [facility] Thin prep Papanicolaou smear with manual screeningOrdered By: Cirilo Garcias on 07-04-2023 Thin prep Papanicolaou smear with manual screening 6 5-15 [facility] Urine blood detectionOrdered By: Cirilo Garcias on 07-04-2023 RBC Ql (U) 250 /ul Negative [facility] Urine clarityOrdered By: Justin Garcias on 07-04-2023 Clarity (U) Turbid Clear [facility] Urine color determinationOrd ered By: Cirilo Garcias on 07-04-2023 Color (U) Red Yellow [facility] Urine glucose detectionOrder ed By: Cirilo Garcias on 07-04-2023 Glucose Ql (U) Normal mg/dl Normal [facility] Urine leukocyte esterase det ection by dipstickOrdered By: Cirilo Garcias on 07-04-2023 Leukocyte esterase Test strip Ql (U) Negative Negative [facility] Urine pHOrdered By: Cirilo barr on 07-04-2023 pH (U) 5.0 [pH] 5.0 - 8.0 [facility] Urine sediment bacteria coun t by microscopy (number/high power field)Ordered By: Cirilo Garcias on 07-04-2023 Bacteria LM.HPF (Urine sed) [#/Area] 0 /[HPF] None Seen [facility] Urine specific gravity measu rementOrdered By: Cirilo Garcias on 07-04-2023 Specific gravity (U) [Rel density] 1.030 1.002-1.03 0 [facility] Urine urobilinogen measureme ntOrdered By: Cirilo Garcias on 07-04-2023 Urobilinogen Ql (U) 1 mg/dl Normal [facility] Thin prep Papanicolaou smear with manual screeningOrdered By: Tanna Tam on 06-30-2023 Thin prep Papanicolaou smear with manual screening 283.6 ng/mL 0.0-101.8 [facility] Comment on above: Chromogranin A perfo rmed by [email or web address] obtained with different assay methods or kits cannotbe used interchangeably.Performed at: [address] [id number] Director: Thai Maddox MD, Phone: [phone] Laboratory - Chemistry and C hemistry - challengeOrdered By: Ashley Fair on 06-10-2023 HCG ( test) Ql (U) Negative [facility] Comment on above: Very dilute urine sp ecimens, as indicated by a low specificgravity, may not contain chemical sales representative levels of hCG. If is still suspected, a first morning urinespecimen should be collected 48 hours later and tested. Activated partial thrombopla stin time (aPTT) in platelet poor plasma by coagulation aOrdered By: Santana Crespo on 06-04-2023 aPTT Coag (PPP) [Time] 31.0 s 24.1-36.2 [facility] Basophil percentageOrdered B y: Santana Crespo on 06-04-2023 Bilirubin [Mass/Vol] 0.30 mg/dL 0.20-1.00 [facility] Comment on above: For patients on eltr ombopag therapy, use of Dimension [place] TBIL is not recommended. Protein [Mass/Vol] 7.1 g/dL 6.4-8.2 [facility] Direct bilirubinOrdered By: Santana Crespo on 06-04-2023 Bilirubin.direct [Mass/Vol] 0.11 mg/dL 0.00-0.30 [facility] Laboratory - Chemistry and C hemistry - challengeOrdered By: Santana Crespo on 06-04-2023 ALP [Catalytic activity/Vol] 76 U/L 45-117 [facility] ALT [Catalytic activity/Vol] 21 U/L 13-56 [facility] Globulin (S) [Mass/Vol] 3.5 g/dL 2.2-4.2 [facility] Laboratory - CoagulationOrde red By: Santana Crespo on 06-04-2023 INR Coag (Bld) [Relative time] 1.1 {INR} [facility] PT Coag (PPP) [Time] 13.7 s 11.7-14.9 [facility] Thin prep Papanicolaou smear with manual screeningOrdered By: Santana Crespo on 06-04-2023 Thin prep Papanicolaou smear with manual screening 3.6 g/dL 3.2-5.0 [facility] Thin prep Papanicolaou smear with manual screening 22 U/L 15-37 [facility] Clostridioides difficile nuc leic acid assay by PCROrdered By: Tanna Tam on 05-05-2023 C. difficile DNA MARELY+probe Ql (Unsp spec) [facility] No Panel InformationOrdered By: Tanna Tam on 05-05-2023 Stool Calprotectin 119 ug/g 0-120 [facility] Comment on above: Concentration Interp retation Follow-Up< 5 - 50 ug/g Normal None>50 -120 ug/g Borderline Re-evaluate in 4-6 weeks >120 ug/g Abnormal Repeat as clinically indicatedPerformed at: - [facility] [address] [id number] Director: Christian Crowell PhD, Phone: [phone] at: [facility] [employer] [id number] Director: Thai Maddox MD, Phone: [phone] Stool Neutral Fats Normal . [facility] Comment on above: Normal (<60 Droplets /HPF) Giardia Antigen (WILTON) [facility] Immunoglobulin E 34 IU/mL 6-495 [facility] Immunoglobulin M 131 mg/dL 26-217 [facility] Ova and parasitesOrdered By: Tanna Tam on 05-05-2023 Ova and parasites identified LM Nom (Unsp spec) [facility] Qualitative fecal fat or lip idsOrdered By: Tanna Tam on 05-05-2023 Fat Ql (Stl) Increased . [facility] Comment on above: Normal (<100 Droplet s/HPF) Serum or plasma IgA measurem ent (mass/volume)Ordered By: Tanna Tam on 05-05-2023 IgA [Mass/Vol] 131 mg/dL 87-352 [facility] Serum or plasma IgG measurem ent (mass/volume)Ordered By: Tanna Tam on 05-05-2023 IgG [Mass/Vol] 1246 mg/dL [id number] [facility] Stool enteric pathogen panel by probe and target amplification methodOrdered By: Tanna Tam on 05-05-2023 Gastrointestinal pathogens panel MARELY+probe (Stl) [facility] Stool gastrointestinal hemog lobin detection by immunologic methodOrdered By: Tanna Tam on 05-05-2023 Lower GI hemoglobin IA Ql (Stl) [facility] Stool lactoferrin detection by immunoassayOrdered By: Tanna Tam on 05-05-2023 Lactoferrin IA Ql (Stl) [facility] Stool pancreatic elastase me asurement (mass/mass)Ordered By: Tanna Tam on 05-05-2023 Elastase.pancreatic (Stl) [Mass/Mass] 133 >200 [facility] Comment on above: Result Units: ug Joya st./g Severe Pancreatic Insufficiency: <100 Moderate Pancreatic Insufficiency: 100 - 200 Normal: >200Performed at: [facility] [employer] [id number] Director: Thai Maddox MD, Phone: [phone] Thin prep Papanicolaou smear with manual screeningOrdered By: Tanna Tam on 05-05-2023 Thin prep Papanicolaou smear with manual screening 647.1 ng/mL 0.0-101.8 [facility] Comment on above: Chromogranin A perfo rmed by [email or web address] obtained with different assay methods or kits cannotbe used interchangeably.Performed at: [facility] [place] [id number] Director: Christian Crowell PhD, Phone: [phone] at: [facility] [employer] [id number] Director: Thai Maddox MD, Phone: [phone] Absolute lymphocyte countOrd ered By: ED PROVIDER on 04-21-2023 Lymphocytes Auto (Unsp spec) [#/Vol] 2.73 10*3/uL 0.83-4.51 [facility] Automated lymphocyte count a s percentage of total leukocytesOrdered By: ED PROVIDER on 04-21-2023 Lymphocytes/100 WBC Auto (Unsp spec) 29.7 % 19-41 [facility] Basophil percentageOrdered B y: Wagner Reynolds on 04-21-2023 Basophil percentage 0 SEEN /hpf 0-5 [facility] Basophil percentageOrdered B y: ED PROVIDER on 04-21-2023 Basophils/100 WBC (Bld) 1.3 % 0-1 [facility] Chloride [Moles/Vol] 108 mmol/L 98-107 [facility] Eosinophils/100 WBC (Bld) 3.7 % 0-5 [facility] Glucose [Mass/Vol] 152 mg/dL 74-106 [facility] Comment on above: Fasting Glucose resu lt greater than or equal to 126 mg/dL suggests DIABETES MELLITUS per A.D.A. criteria. Hemoglobin (Bld) [Mass/Vol] 14.8 g/dL 12.0-15.0 [facility] Monocytes/100 WBC (Bld) 4.9 % 0-10 [facility] Neutrophils (Bld) [#/Vol] 5.5 10*3/uL 2.0-7.7 [facility] Neutrophils/100 WBC (Bld) 60.3 % 47-70 [facility] Potassium [Moles/Vol] 4.0 mmol/L 3.5-5.1 [facility] Comment on above: Slight Hemolysis, Re sult may be falsely increased. Sodium [Moles/Vol] 134 mmol/L 136-145 [facility] WBC (Bld) [#/Vol] 9.2 10*3/uL 4.4-11.0 [facility] Bilirubin Test strip Ql (U)O rdered By: ED PROVIDER on 04-21-2023 Bilirubin Ql (U) Negative Negative [facility] Determination of erythrocyte mean corpuscular volume (MCV)Ordered By: ED PROVIDER on 04-21-2023 MCV (RBC) [Entitic vol] 90.2 fL 81-99 [facility] Erythrocyte distribution wid th ratioOrdered By: ED PROVIDER on 04-21-2023 Erythrocyte distribution width (RBC) [Ratio] 12.4 % 11.6-14.6 [facility] Erythrocyte distribution wid th standard deviationOrdered By: ED PROVIDER on 04-21-2023 Erythrocyte distribution width (RBC) [Entitic vol] 41.1 fL 35.1-43.9 [facility] Hematocrit Auto (Bld) [Volum e fraction]Ordered By: ED PROVIDER on 04-21-2023 Hematocrit (Bld) [Volume fraction] 44.1 % 37-47 [facility] Immature granulocytes/100 WB C Auto (Bld)Ordered By: ED PROVIDER on 04-21-2023 Immature granulocytes/100 WBC (Bld) 0.100 % 0.0-0.9 [facility] Comment on above: IG% - Immature Granu locytes (promyelocytes, myelocytes and metamyelocytes) > 1% indicates that a LEFT SHIFT is Present. Ketones Test strip Ql (U)Ord ered By: ED PROVIDER on 04-21-2023 Ketones Ql (U) Negative Negative [facility] Laboratory - Chemistry and C hemistry - challengeOrdered By: ED PROVIDER on 04-21-2023 CO2 [Moles/Vol] 21.0 mmol/L 21.0-32.0 [facility] Urea nitrogen/Creatinine [Mass ratio] 20.0 mg/mg 10-20 [facility] Laboratory - Hematology and Cell countsOrdered By: ED PROVIDER on 04-21-2023 MCH (RBC) [Entitic mass] 30.3 pg 27.0-32.0 [facility] MCHC (RBC) [Mass/Vol] 33.6 g/dL 32-36 [facility] Nucleated RBC/100 WBC (Bld) [Ratio] 0 % 0-5 [facility] Platelets (Bld) [#/Vol] 353 10*3/uL 150-450 [facility] Mucus LM Ql (Urine sed)Order ed By: Wagner Reynolds on 04-21-2023 Mucus Ql (Urine sed) 0 SEEN /hpf [facility] Nitrite Test strip Ql (U)Ord ered By: ED PROVIDER on 04-21-2023 Nitrite Ql (U) Negative Negative [facility] No Panel InformationOrdered By: Wagner Reynolds on 04-21-2023 Urine RBC 0-5 SEEN /hpf 0-5 [facility] No Panel InformationOrdered By: ED PROVIDER on 04-21-2023 Estimated GFR (MDRD) Amer 87 mL/min >60 [facility] Comment on above: GFR Calc Estimated GFR (MDRD) Non-Af Amer 72 mL/min >60 [facility] Comment on above: Non- GFR Calc Platelet mean volume Jonathan-Ec ker (Bld) [Entitic vol]Ordered By: ED PROVIDER on 04-21-2023 Platelet mean volume (Bld) [Entitic vol] 9.9 fL 6.2-12.0 [facility] Protein Test strip Ql (U)Ord ered By: ED PROVIDER on 04-21-2023 Protein Ql (U) Negative Negative [facility] RBC Auto (Bld) [#/Vol]Ordere d By: ED PROVIDER on 04-21-2023 RBC (Bld) [#/Vol] 4.89 10*6/uL 4.2-5.4 [facility] Serum or plasma calcium patrizia urement (mass/volume)Ordered By: ED PROVIDER on 04-21-2023 Calcium [Mass/Vol] 9.1 mg/dL 8.5-10.1 [facility] Serum or plasma choriogonado tropin detectionOrdered By: ED PROVIDER on 04-21-2023 HCG ( test) Ql Negative [facility] Serum or plasma creatinine m easurement (mass/volume)Ordered By: ED PROVIDER on 04-21-2023 Creatinine [Mass/Vol] 0.90 mg/dL 0.55-1.02 [facility] Comment on above: The validity of the calculated GFR & GFRAA in patients over 70 years has not been determined. Clinical correlation is essential. Serum or plasma urea nitroge n measurement (mass/volume)Ordered By: ED PROVIDER on 04-21-2023 Urea nitrogen [Mass/Vol] 18 mg/dL 7-18 [facility] Squamous epithelial cells de tection in urine sediment by light microscopyOrdered By: Wagner Reynolds on 04-21-2023 Epithelial cells.squamous LM Ql (Urine sed) 0-5 SEEN /hpf 5-10 [facility] Thin prep Papanicolaou smear with manual screeningOrdered By: ED PROVIDER on 04-21-2023 Thin prep Papanicolaou smear with manual screening 5 5-15 [facility] Urine blood detectionOrdered By: ED PROVIDER on 04-21-2023 RBC Ql (U) 10 /ul Negative [facility] Urine clarityOrdered By: ED PROVIDER on 04-21-2023 Clarity (U) Clear Clear [facility] Urine color determinationOrd ered By: ED PROVIDER on 04-21-2023 Color (U) Yellow Yellow [facility] Urine glucose detectionOrder ed By: ED PROVIDER on 04-21-2023 Glucose Ql (U) Normal mg/dl Normal [facility] Urine leukocyte esterase det ection by dipstickOrdered By: ED PROVIDER on 04-21-2023 Leukocyte esterase Test strip Ql (U) Negative Negative [facility] Urine pHOrdered By: ED PROVI MIKEL on 04-21-2023 pH (U) 6.0 [pH] 5.0 - 8.0 [facility] Urine sediment bacteria coun t by microscopy (number/high power field)Ordered By: Wagner Reynolds on 04-21-2023 Bacteria LM.HPF (Urine sed) [#/Area] RARE /hpf None Seen [facility] Urine specific gravity measu rementOrdered By: ED PROVIDER on 04-21-2023 Specific gravity (U) [Rel density] 1.010 1.002-1.03 0 [facility] Urine urobilinogen measureme ntOrdered By: ED PROVIDER on 04-21-2023 Urobilinogen Ql (U) Normal mg/dl Normal [facility] Wills's yeast IgE serumOrde red By: Edgar Coffey on 04-09-2023 Wills's yeast IgE Qn (S) <0.10 kU/L Class 0 [facility] Comment on above: Performed at: [address] [id number] Director: Thai Maddox MD, Phone: [phone] Laboratory - Miscellaneous t estsOrdered By: Edgar Coffey on 04-09-2023 Service comment (Unsp spec) [Interp] Comment . [facility] Comment on above: Levels of Specific I gE Class Description of Class ----- < 0.10 0 Negative 0.10 - 0.31 0/I Equivocal/Low 0.32 - 0.55 I Low 0.56 - 1.40 II Moderate 1.41 - 3.90 III High 3.91 - 19.00 IV Very High 19.01 - 100.00 V Very High >100.00 [facility] No Panel InformationOrdered By: Edgar Coffey on 04-09-2023 Scallop Allergen <0.10 kU/L Class 0 [facility] Sesame Seed Allergen IgE Antibody <0.10 kU/L Class 0 [facility] Shrimp Allergen <0.10 kU/L Class 0 [facility] Serum black walnut IgE antib lucas assay (units/volume)Ordered By: Edgar Coffey on 04-09-2023 Black [place] IgE Qn (S) <0.10 kU/L Class 0 [facility] Serum clam IgE antibody assa y (units/volume)Ordered By: Edgar Coffey on 04-09-2023 Clam IgE Qn (S) <0.10 kU/L Class 0 [facility] Serum codfish IgE antibody a ssay (units/volume)Ordered By: Edgar Coffey on 04-09-2023 Codfish IgE Qn (S) <0.10 kU/L Class 0 [facility] Serum corn IgE antibody assa y (units/volume)Ordered By: Edgar Coffey on 04-09-2023 [place] IgE Qn (S) <0.10 kU/L Class 0 [facility] Serum cow milk IgE antibody assay (units/volume)Ordered By: Edgar Coffey on 04-09-2023 Cow milk IgE Qn (S) <0.10 kU/L Class 0 [facility] Cow milk IgE Qn (S) Not Reportable W [facility] Serum crab IgE antibody assa y (units/volume)Ordered By: Edgar Coffey on 04-09-2023 Crab IgE Qn (S) <0.10 kU/L Class 0 [facility] Serum egg white IgE antibody assay (units/volume)Ordered By: Edgar Coffey on 04-09-2023 Egg white IgE Qn (S) <0.10 kU/L Class 0 [facility] Serum gluten IgE antibody as say (units/volume)Ordered By: Edgar Coffey on 04-09-2023 Gluten IgE Qn (S) <0.10 kU/L Class 0 [facility] Serum lobster IgE antibody a ssay (units/volume)Ordered By: Edgar Coffey on 04-09-2023 Lobster IgE Qn (S) <0.10 kU/L Class 0 [facility] Serum peanut IgE antibody as say (units/volume)Ordered By: Edgar Coffey on 04-09-2023 Peanut IgE Qn (S) <0.10 kU/L Class 0 [facility] Serum salmon IgE antibody as say (units/volume)Ordered By: Edgar Coffey on 04-09-2023 [place] IgE Qn (S) <0.10 kU/L Class 0 [facility] Serum soybean IgE antibody a ssay (units/volume)Ordered By: Edgar Coffey on 04-09-2023 Soybean IgE Qn (S) <0.10 kU/L Class 0 [facility] Serum tuna IgE antibody assa y (units/volume)Ordered By: Edgar Coffey on 04-09-2023 Tuna IgE Qn (S) <0.10 kU/L Class 0 [facility] Serum wheat IgE antibody ass ay (units/volume)Ordered By: Edgar Coffey on 04-09-2023 Wheat IgE Qn (S) <0.10 kU/L Class 0 [facility] NM Stomach Views for gastric emptying solid phase W radionuclide Loraine 11-20-2022 Abnormally delayed gastric emptying following solid meal. Report Dictated on Electronically Signed By: Tonio Arciniega MD Electronically Signed Date/Time: 11/20/2022 10:34 AM EDT [facility] [address] Patient Name: [facility]ARCELINO [facility]RA[facility] 1975 [id number] Exam Date/Time: 11/20/2022 10:23 Procedure: NM GASTRIC EMPTYING SOLID Ordering Provider: TAM RAHSAAN Reason For Exam: K58.9 SOLID PHASE GASTRIC EMPTYING STUDY CLINICAL INDICATION: Nausea The patient was given a standard meal of 1.1 millicurie of technetium-99m sulfur colloid prepared with egg. Anterior and posterior images over the abdomen were obtained up to two hours after ingestion. MAURICIO activity curves over the stomach were then calculated. COMPARISON: None FINDINGS: At one hour, there is 94 percent of original activity within the stomach. At two hours after ingestion, 81 percent of original activity remains within the stomach. Normal at two hours following ingestion is between 19 and 52 percent. [facility] [address] [facility] Tonio Arciniega MD - 11/20/2022 Patient Name: MARCELINO [facility]RAIZA [facility] 1975 [id number] Exam Date/Time: 11/20/2022 10:23 Procedure: NM GASTRIC EMPTYING SOLID Ordering Provider: FRIEND, , TANNA Reason For Exam: K58.9 SOLID PHASE GASTRIC EMPTYING STUDY CLINICAL INDICATION: Nausea The patient was given a standard meal of 1.1 millicurie of technetium-99m sulfur colloid prepared with egg. Anterior and posterior images over the abdomen were obtained up to two hours after ingestion. MAURICIO activity curves over the stomach were then calculated. COMPARISON: None FINDINGS: At one hour, there is 94 percent of original activity within the stomach. At two hours after ingestion, 81 percent of original activity remains within the stomach. Normal at two hours following ingestion is between 19 and 52 percent. IMPRESSION: Abnormally delayed gastric emptying following solid meal. Report Dictated on Electronically Signed By: Tonio Arciniega MD Electronically Signed Date/Time: 11/20/2022 10:34 AM EDT [facility] Radiology Study observation (narrative) [facility] Stomach Views for gastric emptying solid phase W radionuclide POOrdered By: Tonio Arciniega on 11-20-2022 [facility] Work Phone: House Account Tracking (Ques t)on 11-11-2022 Tracking House Account [facility] Comment on above: We were unable to id entify an account number for the order submitted. If you do not have a [place] account number or if your account information needs to be updated please call [phone] ([phone]) for assistance. To prevent delays in testing and processing of your orders please provide the following information for this order and with every additional order submitted: [facility] account number and account name Client address Client phone and fax number NPI number of ordering physician along with the physician name. [facility] Hm Pap Smearon 10-30-2022 Interpretation and review of laboratory results Abnormal [facility] PAP IG HPV APTIMA 16 /18,45 on 07-16-2022 ADEQ Comment Normal . [facility] Comment on above: Order Comment: Specimen Comment: [id number] Comment: Source.............CervixSp ecimen Comment: No. of containers..01 ThinPrep Vial Result Comment: Satisfactory for evaluation. No endocervical component is identified. Performed By: #### [id number] ####[facility] [address] [place], [place], [id number] COMM . Normal . [facility] Comment on above: Order Comment: Specimen Comment: [id number] Comment: Source.............CervixSp ecimen Comment: No. of containers..01 ThinPrep Vial Performed By: #### [id number] ####[facility] [address] [place], [place], [id number] COMMENT Comment Normal . [facility] Comment on above: Order Comment: Specimen Comment: [id number] Comment: Source.............CervixSp ecimen Comment: No. of containers..01 ThinPrep Vial Result Comment: This liquid based ThinPrep(R) pap test was screened with the use of an image guided system. Performed By: #### [id number] ####[facility] [address] [place], [place], [id number] DIAG Comment Abnormal . [facility] Comment on above: Order Comment: Specimen Comment: [id number] Comment: Source.............CervixSp ecimen Comment: No. of containers..01 ThinPrep Vial Result Comment: EPITHELIAL CELL ABNORMALITY. LOW GRADE SQUAMOUS INTRAEPITHELIAL LESION (LSIL). Performed By: #### [id number] ####[facility] [address] [place], [place], [id number] HPV APTIMA, HR Negative Normal Negative [facility] Comment on above: Order Comment: Specimen Comment: [id number] Comment: Source.............CervixSp ecimen Comment: No. of containers..01 ThinPrep Vial Result Comment: This nucleic acid amplification test detects fourteen high- risk HPV types (16,18,31,33,35,39,45,51,52 ,56,58,59,66,68) without differentiation. Performed By: #### [id number] ####[facility] [address] [place], [place], [id number] HPV Kate Rfx Comment Normal . [facility] Comment on above: Order Comment: Specimen Comment: [id number] Comment: Source.............CervixSp ecimen Comment: No. of containers..01 ThinPrep Vial Result Comment: Criteria not met, HPV Genotype not performed. Performed at: - [address] [id number] Student Outreach Coordinator: Alysa Angela MD, Phone: [phone] Performed at: [facility] [address] [place] [id number] Student Outreach Coordinator: Gerald Rios MD, Phone: [phone] Performed at: = - [address] [id number] Student Outreach Coordinator: Alysa Angela MD, Phone: [phone] Performed By: #### [id number] ####[facility] [address] [facility] [address]. [place], [place], [id number] PAPSMR Comment Normal . [facility] Comment on above: Order Comment: Specimen Comment: [id number] Comment: Source.............CervixSp ecimen Comment: No. of containers..01 ThinPrep Vial Result Comment: The Pap smear is a screening test designed to aid in the detection of premalignant and malignant conditions of the uterine cervix. It is not a diagnostic procedure and should not be used as the sole means of detecting cervical cancer. Both false-positive and false-negative reports do occur. Performed By: #### [id number] ####[facility] [address] [place], [address] Path.prov.IDC-9 Comment Normal . [facility] Comment on above: Order Comment: Specimen Comment: [id number] Comment: Source.............CervixSp ecimen Comment: No. of containers..01 ThinPrep Vial Result Comment: R87.612 Performed By: #### [id number] ####[facility] [address] [place], [address] PERFORM Comment Normal . [facility] Comment on above: Order Comment: Specimen Comment: [id number] Comment: Source.............CervixSp ecimen Comment: No. of containers..01 ThinPrep Vial Result Comment: Justin Delgado Bonding Supervisor (ASCP) Performed By: #### [id number] ####[facility] [address] [place], [address] RECOMM Comment Abnormal . [facility] Comment on above: Order Comment: Specimen Comment: [id number] Comment: Source.............CervixSp ecimen Comment: No. of containers..01 ThinPrep Vial Result Comment: Suggest follow up as clinically appropriate. Performed By: #### [id number] ####[facility] [address] [place], [place], [id number] SIGN Comment Normal . [facility] (more content not included)... [facility] Laboratory - Chemistry and C hemistry - challengeon 08-20-2022 HCG ( test) Ql (U) Negative [facility] No Panel InformationOrdered By: Sveta Cline on 07-13-2022 Bordatella pertussis DNA (MARELY) [facility] Bordatella pertussis DNA (MARELY) [facility] Bordetella pertussis IgM ant ibody assayOrdered By: Sveta Cline on 07-10-2022 B. pertussis IgM IA Qn (S) < 1.0 index 0.0-0.9 [facility] Comment on above: Negative <1.0 Border line 1.0 - 1.1 Positive >1.1 No Panel InformationOrdered By: Sveta Cline on 07-10-2022 Bordetella pertussis IgG Antibody 3.46 index 0.00-0.94 [facility] Comment on above: Negative <0.95 Equiv ocal 0.95 - 1.04 Positive >1.04 Serum Bordetella pertussis I gA antibody assay (units/volume)Ordered By: Sveta Cline on 07-10-2022 B. pertussis IgA Qn (S) 2.3 index 0.0-0.9 [facility] Comment on above: Negative <1.0 Border line 1.0 - 1.1 Positive >1.1Performed at: [facility] [address] [id number] Director: Thai Maddox MD, Phone: [phone] Cervical or vagninal specime n microscopic examination by cytology stain (reported asOrdered By: Jacqueline Martinez on 07-08-2022 Cytology report Cyto stain Doc (Cvx/Vag) Comment . [facility] Comment on above: The Pap smear is a s creening test designed to aid in thedetection of premalignant and malignant conditions of theuterine cervix. It is not a diagnostic procedure andshould not be used as the sole means of detecting cervicalcancer. Both false-positive and false-negative reports dooccur. Detection in cervical specim en of any of human papilloma virus (HPV) 16, 18, 31, 33,Ordered By: Jacqueline Martinez on 07-08-2022 HPV 16+18+31+33+35+39+45+5 1+52+56+58+59+66+68 DNA Probe+sig amp Ql (Cvx) Negative Negative [facility] Comment on above: This nucleic acid am plification test detects fourteen high- risk HPV types (16,18,31,33,35,39,45,51,52,56,58,59,66,68)without differentiation. Laboratory - CytologyOrdered By: Jacqueline Martinez on 07-08-2022 [place] Cyto stain Nom (Cvx/Vag) [ID] Comment . [facility] Comment on above: Jerry Rodriguez totechnologist (ASCP) Pathologist Cyto stain Nom (Cvx/Vag) [ID] Comment . [facility] Comment on above: Alysa Angela MD, Pathologist Recommended follow-up Cyto stain Nom (Cvx/Vag) Comment . [facility] Comment on above: Suggest follow up as clinically appropriate. Laboratory - Miscellaneous t estsOrdered By: Jacqueline Martinez on 07-08-2022 Service comment (Unsp spec) [Interp] Comment . [facility] Comment on above: This liquid based Th inPrep(R) pap test was screened withthe use of an image guided system. Service comment (Unsp spec) [Interp] . . [facility] Liquid-based cerv Pap + CT/G C by MARELY w reflex to high-risk HPV for ASCUSOrdered By: Jacqueline Martinez on 07-08-2022 Cytology report Cyto stain.thin prep Doc (Cvx/Vag) Comment . [facility] Comment on above: Criteria not met, HP V Genotype not performed.Performed at: - [facility] [id number] Director: Alysa Angela MD, Phone: [phone] at: [facility] [id number] [place], [place] [id number] Director: Gerald Rios MD, Phone: [phone] at: = - [address], [place] [id number] Director: Alysa Angela MD, Phone: [phone] No Panel InformationOrdered By: Jacqueline Martinez on 07-08-2022 Pathology report final diagnosis Narrative Comment . [facility] Comment on above: EPITHELIAL CELL ABNO RMALITY.LOW GRADE SQUAMOUS INTRAEPITHELIAL LESION (LSIL). R87.612 Influenza virus A and B and SARS-CoV-2 (COVID-19) Ag panel - Upper respiratory specimOrdered By: Dr. Doe on 06-16-2022 SARS-CoV-2 (COVID-19) RNA MARELY+probe Ql (Resp) [facility] Influenza virus A and B and SARS-CoV-2 (COVID-19) Ag panel - Upper respiratory specimOrdered By: Landon Doe on 06-15-2022 SARS-CoV-2 (COVID-19) RNA MARELY+probe Ql (Resp) [facility] No Panel InformationOrdered By: Nadia Bolanos on 06-15-2022 D-Dimer Quantitative (PE/DVT) 0.42 FEU/ug/m 0.27-0.49 [facility] Comment on above: NORMAL D-Dimer level (<0.50) indicates no DVT or PE. No Panel Informationon 06-15 [facility] XR CHEST 2V FRONTAL/LATon [facility] XR Chest PA and Lateralon IMPRESSION: No acute radiographic abnormality. Brazing Machine Operator Automatic: FILI Transcribe Date/Time: Jun 15 2022 11:42A Dictated by : KRISTAN KING MD This examination was interpreted and the report reviewed and electronically signed by: KRISTAN KING MD on Jun 15 2022 11:42AM [facility] DIVISION OF RADIOLOGY * * *Final Report* * * DATE OF EXAM: Jun 15 2022 11:35AM WOX 5291 - XR CHEST 2V FRONTAL/LAT / PROCEDURE REASON: multiple diagnoses * * * * Physician Interpretation * * * * EXAMINATION: CHEST RADIOGRAPH (2 VIEW FRONTAL & LATERAL) CLINICAL HISTORY: Acute cough SOB (shortness of breath) MQ: XC2_6 EXAM DATE/TIME: 06/15/2022 11:35 AM COMPARISON: Chest x-ray on 02/05/2020 RESULT: Lines, tubes, and devices: None. Lungs and pleura: Slightly small lung volume. No consolidation. No lung mass. No pleural effusion. No pneumothorax. Cardiomediastinal silhouette: Normal cardiomediastinal silhouette. Bones and soft tissues: Unremarkable. DIVISION OF RADIOLOGY Provider, [facility] - 06/15/2022 * * *Final Report* * * DATE OF EXAM: Jun 15 2022 11:35AM WOX 5291 - XR CHEST 2V FRONTAL/LAT / PROCEDURE REASON: multiple diagnoses * * * * Physician Interpretation * * * * EXAMINATION: CHEST RADIOGRAPH (2 VIEW FRONTAL & LATERAL) CLINICAL HISTORY: Acute cough SOB (shortness of breath) MQ: XC2_6 EXAM DATE/TIME: 06/15/2022 11:35 AM COMPARISON: Chest x-ray on 02/05/2020 RESULT: Lines, tubes, and devices: None. Lungs and pleura: Slightly small lung volume. No consolidation. No lung mass. No pleural effusion. No pneumothorax. Cardiomediastinal silhouette: Normal cardiomediastinal silhouette. Bones and soft tissues: Unremarkable. IMPRESSION IMPRESSION: No acute radiographic abnormality. Brazing Machine Operator Automatic: PSCB Transcribe Date/Time: Jun 15 2022 11:42A Dictated by : KRISTAN KING MD This examination was interpreted and the report reviewed and electronically signed by: KRISTAN KING MD on Jun 15 2022 11:42AM EST [facility] Radiology Study observation (narrative) [facility] XR Chest PA and LateralOrder ed By: Ccf Provider on 06-15-2022 [facility] Thin prep Papanicolaou smear with manual screeningOrdered By: Jacqueline Martinez on 06-06-2022 Genital Culture G. vaginalis (Presumptive) [facility] Culture, urineOrdered By: Dony Martinez on 06-05-2022 Bacteria identified Cx Nom (U) Positive [facility] Gram stain for investigation of transfusion reactionOrdered By: Jacqueline Martinez on 06-04-2022 Microscopic observation Gram stain Nom (Unsp spec) [facility] Chlamydia trachomatis rRNA d etection by probe and target amplification methodOrdered By: Jacqueline Martinez on 06-03-2022 C. trachomatis rRNA MARELY+probe Ql (Unsp spec) Negative Negative [facility] Laboratory - Chemistry and C hemistry - challengeon 06-03-2022 Bilirubin Ql (U) Negative [facility] Glucose Ql (U) Negative [facility] Ketones Ql (U) Negative [facility] pH (U) 5.0 [pH] [facility] Specific gravity (U) [Rel density] 1.030 [facility] Urobilinogen (U) [Mass/Vol] Negative [facility] Laboratory - Hematology and Cell countson 06-03-2022 Hemoglobin Ql (U) Moderate [facility] Laboratory - Microbiology an d Antimicrobial susceptibilityOrdered By: Jacqueline Martinez on 06-03-2022 N. gonorrhoeae DNA MARELY+probe Ql (Unsp spec) Negative Negative [facility] Comment on above: Performed at: =[address] [id number] Director: Alysa Angela MD, Phone: [phone] Laboratory - Specimen inform ationon 06-03-2022 Clarity (U) Clear [facility] Color (U) Yellow [facility] Laboratory - Urinalysison Nitrite Ql (U) Negative [facility] Protein Ql (U) Negative [facility] No Panel Informationon 06-03 POC Bacterial Vaginitis (Rapid) Positive [facility] POC Trichomonas (Rapid) Negative [facility] Urine Leukocytes Negatve [facility] Urine Non-Hemolyzed Blood [facility] Whole blood hemoglobin A1c/t otal hemoglobin ratio (mass fraction)Ordered By: Dr. Hickman on 05-20-2022 HbA1c (Bld) [Mass fraction] 5.1 % 3.8-5.6 [facility] Comment on above: Normal < 5.7 % Predi abetic 5.7 - 6.4 % Diabetic >or= 6.5 % Please note range changes. UA DIP, URINE (POC)on 2021 BILIRUBIN UA (POCT) Negative Negative [facility] CLARITY UA (POCT) Clear [facility] COLOR UA (POCT) Yellow [facility] GLUCOSE UA (POCT) Negative Negative mg/dL [facility] HEMOGLOBIN/BLOOD UA (POCT) Moderate Abnormal Negative [facility] KETONE UA (POCT) Trace Negative mg/dL [facility] LEUKOCYTES UA (POCT) Negative Negative [facility] NITRITE UA (POCT) Negative Negative [facility] PH UA (POCT) 5.5 4.5 - 8.0 [facility] Protein Ql (U) Negative Negative mg/dL [facility] SPECIFIC GRAVITY UA (POCT) 1.025 1.005 - 1.030 [facility] UROBILINOGEN UA (POCT) 0.2 E.U./dL Claudia l E.U./dL [facility] Absolute lymphocyte counton 10-31-2021 Lymphocytes Auto (Unsp spec) [#/Vol] 1.79 10*3/uL 0.83-4.51 [facility] Work Phone: Basophil percentageon 2021 Basophils/100 WBC (Bld) 1.6 % 0-1 [facility] Work Phone: Bilirubin [Mass/Vol] 0.30 mg/dL 0.20-1.00 [facility] Work Phone: Comment on above: For patients on eltr ombopag therapy, use of Dimension [place] TBIL is not recommended. Chloride [Moles/Vol] 107 mmol/L 98-107 [facility] Work Phone: [phone] Eosinophils/100 WBC (Bld) 4.3 % 0-5 [facility] Work Phone: [phone] Glucose [Mass/Vol] 109 mg/dL 74-106 [facility] Work Phone: Comment on above: Fasting Glucose resu lt from 100 to 125 mg/dL suggests IMPAIRED HOMEOSTASIS per A.D.A. criteria. Neutrophils (Bld) [#/Vol] 3.7 10*3/uL 2.0-7.7 [facility] Work Phone: [phone] Neutrophils/100 WBC (Bld) 59.4 % 47-70 [facility] Work Phone: Potassium [Moles/Vol] 4.1 mmol/L 3.5-5.1 [facility] Work Phone: Protein [Mass/Vol] 7.3 g/dL 6.4-8.2 [facility] Work Phone: Sodium [Moles/Vol] 140 mmol/L 136-145 [facility] Work Phone: WBC (Bld) [#/Vol] 6.3 10*3/uL 4.4-11.0 [facility] Work Phone: Blood erythrocytes count (nu mber/volume)on 10-31-2021 RBC (Bld) [#/Vol] 4.43 10*6/uL 4.2-5.4 [facility] Work Phone: Blood hemoglobin measurement (mass/volume)on 10-31-2021 Hemoglobin (Bld) [Mass/Vol] 13.8 g/dL 12.0-15.0 [facility] Work Phone: Blood lymphocytes/100 leukoc yteson 10-31-2021 Lymphocytes/100 WBC (Bld) 28.6 % 19-41 [facility] Work Phone: Blood monocytes/100 leukocyt eson 10-31-2021 Monocytes/100 WBC (Bld) 5.9 % 0-10 [facility] Work Phone: Blood platelet mean volumeon 10-31-2021 Platelet mean volume (Bld) [Entitic vol] 9.6 fL 6.2-12.0 [facility] Work Phone: Determination of erythrocyte mean corpuscular volume (MCV)on 10-31-2021 MCV (RBC) [Entitic vol] 91.2 fL 81-99 [facility] Work Phone: Hematocrit Auto (Bld) [Volum e fraction]on 10-31-2021 Hematocrit (Bld) [Volume fraction] 40.4 % 37-47 [facility] Work Phone: Laboratory - Chemistry and C hemistry - challengeon 10-31-2021 ALP [Catalytic activity/Vol] 75 U/L 45-117 [facility] Work Phone: ALT [Catalytic activity/Vol] 21 U/L 13-56 [facility] Work Phone: CO2 [Moles/Vol] 29.0 mmol/L 21.0-32.0 [facility] Work Phone: Globulin (S) [Mass/Vol] 3.6 g/dL 2.2-4.2 [facility] Work Phone: Urea nitrogen/Creatinine [Mass ratio] 18.6 mg/mg 10-20 [facility] Work Phone: Laboratory - Hematology and Cell countson 10-31-2021 Erythrocyte distribution width (RBC) [Entitic vol] 40.5 fL 35.1-43.9 [facility] Work Phone: Erythrocyte distribution width (RBC) [Ratio] 12.2 % 11.6-14.6 [facility] Work Phone: Immature granulocytes/100 WBC (Bld) 0.200 % 0.0-0.9 [facility] Work Phone: Comment on above: IG% - Immature Granu locytes (promyelocytes, myelocytes and metamyelocytes) > 1% indicates that a LEFT SHIFT is Present. MCH (RBC) [Entitic mass] 31.2 pg 27.0-32.0 [facility] Work Phone: Nucleated RBC/100 WBC (Bld) [Ratio] 0 % 0-5 [facility] Work Phone: MCHC Auto (RBC) [Mass/Vol]on 10-31-2021 MCHC (RBC) [Mass/Vol] 34.2 g/dL 32-36 [facility] Work Phone: No Panel Informationon 10-31 Estimated GFR (MDRD) Amer 99 mL/min >60 [facility] Work Phone: Comment on above: GFR Calc Estimated GFR (MDRD) Non-Af Amer 82 mL/min >60 [facility] Work Phone: Comment on above: Non- GFR Calc Vitamin D 25-Hydroxy 39.8 ng/mL [facility] Work Phone: Comment on above: Vitamin D 25(OH) Sta tus Range Deficiency <20 ng/mL (50nmol/L) Insufficiency 20 - 30 ng/mL (50 - 75 nmol/L) Sufficiency 30 - 100 ng/mL (75 - 250 nmol/L) Toxicity >100 ng/mL (>250 nmol/L) Platelets bldon 10-31-2021 Platelets (Bld) [#/Vol] 278 10*3/uL 150-450 [facility] Work Phone: Serum or plasma albumin patrizia urement (mass/volume)on 10-31-2021 Albumin [Mass/Vol] 3.7 g/dL 3.2-5.0 [facility] Work Phone: Serum or plasma albumin/glob ulin mass ratioon 10-31-2021 Albumin/Globulin [Mass ratio] 1.0 {ratio} 0.9-2.4 [facility] Work Phone: Serum or plasma calcium patrizia urement (mass/volume)on 10-31-2021 Calcium [Mass/Vol] 8.8 mg/dL 8.5-10.1 [facility] Work Phone: Serum or plasma creatinine m easurement (mass/volume)on 10-31-2021 Creatinine [Mass/Vol] 0.81 mg/dL 0.55-1.02 [facility] Work Phone: Comment on above: The validity of the calculated GFR & GFRAA in patients over 70 years has not been determined. Clinical correlation is essential. Serum or plasma urea nitroge n measurement (mass/volume)on 10-31-2021 Urea nitrogen [Mass/Vol] 15 mg/dL 7-18 [facility] Work Phone: Thin prep Papanicolaou smear with manual screeningon 10-31-2021 Thin prep Papanicolaou smear with manual screening 13 U/L 15-37 [facility] Work Phone: Thin prep Papanicolaou smear with manual screening 4 5-15 [facility] Work Phone: Laboratory - Microbiology an d Antimicrobial susceptibilityon 09-07-2021 SARS-CoV-2 (COVID-19) RNA MARELY+probe Ql (Unsp spec) Not detected [facility] Work Phone: No Panel Informationon 09-07 Influenza Types A,B Rapid (Clinic) Not detected [facility] Work Phone: Absolute lymphocyte counton 07-10-2021 Lymphocytes Auto (Unsp spec) [#/Vol] 1.93 10*3/uL 0.83-4.51 [facility] Work Phone: Basophil percentageon 2021 Basophils/100 WBC (Bld) 1.2 % 0-1 [facility] Work Phone: Eosinophils/100 WBC (Bld) 1.7 % 0-5 [facility] Work Phone: Neutrophils (Bld) [#/Vol] 3.9 10*3/uL 2.0-7.7 [facility] Work Phone: Neutrophils/100 WBC (Bld) 60.3 % 47-70 [facility] Work Phone: WBC (Bld) [#/Vol] 6.4 10*3/uL 4.4-11.0 [facility]: Blood erythrocytes count (nu mber/volume)on 07-10-2021 RBC (Bld) [#/Vol] 4.51 10*6/uL 4.2-5.4 [facility]: Blood hemoglobin measurement (mass/volume)on 07-10-2021 Hemoglobin (Bld) [Mass/Vol] 13.7 g/dL 12.0-15.0 [facility] Work Phone: Blood lymphocytes/100 leukoc yteson 07-10-2021 Lymphocytes/100 WBC (Bld) 30.0 % 19-41 [facility] Work Phone: Blood monocytes/100 leukocyt eson 07-10-2021 Monocytes/100 WBC (Bld) 6.5 % 0-10 [facility] Work Phone: Blood platelet mean volumeon 07-10-2021 Platelet mean volume (Bld) [Entitic vol] 10.0 fL 6.2-12.0 [facility] Work Phone: Determination of erythrocyte mean corpuscular volume (MCV)on 04-14-2022 MCV (RBC) [Entitic vol] 89.8 fL 81-99 [facility] Work Phone: Hematocrit Auto (Bld) [Volum e fraction]on 07-10-2021 Hematocrit (Bld) [Volume fraction] 40.5 % 37-47 [facility] Work Phone: Laboratory - Hematology and Cell countson 07-10-2021 Erythrocyte distribution width (RBC) [Entitic vol] 40.0 fL 35.1-43.9 [facility] Work Phone: Erythrocyte distribution width (RBC) [Ratio] 12.1 % 11.6-14.6 [facility] Work Phone: Immature granulocytes/100 WBC (Bld) 0.300 % 0.0-0.9 [facility] Work Phone: Comment on above: IG% - Immature Granu locytes (promyelocytes, myelocytes and metamyelocytes) > 1% indicates that a LEFT SHIFT is Present. MCH (RBC) [Entitic mass] 30.4 pg 27.0-32.0 [facility] Work Phone: Nucleated RBC/100 WBC (Bld) [Ratio] 0 % 0-5 [facility] Work Phone: MCHC Auto (RBC) [Mass/Vol]on 07-10-2021 MCHC (RBC) [Mass/Vol] 33.8 g/dL 32-36 [facility] Work Phone: No Panel Informationon 07-10 Thyroid Stimulating Hormone (TSH) 1.66 uIU/mL 0.358-3.74 [facility] Work Phone: Platelets bldon 07-10-2021 Platelets (Bld) [#/Vol] 295 10*3/uL 150-450 [facility] Work Phone: Hm Colonoscopyon 11-07-2020 CONVERTED SURGICAL PATHOLOGY (11/07/2020 8:00 AM EDT) Lab Results - CONVERTED SURGICAL PATHOLOGY (11/07/2020 8:00 AM EDT) CONVERTED FINAL DIAGNOSIS 1. Random duodenum, biopsy (A) - Small intestinal mucosa with no diagnostic alteration. - No morphologic evidence of celiac disease. 2. Stomach, biopsy (B) - Antral and oxyntic mucosa with no diagnostic alteration. - No morphologic evidence of Helicobacter pylori. 3. Random terminal ileum, biopsy (C) - Fragmented superficial pieces of intestinal villi with no diagnostic alteration. 4. Colon, biopsy (D) - Colonic mucosa with no diagnostic alteration. - No morphologic evidence of microscopic colitis. SEJAL/db 11/08/2020 [facility] CONVERTED GROSS DESCRIPTION A. Received in formalin are two pieces of pablo, soft tissue aggregating to 0.6 x 0.3 x 0.2 cm. Totally submitted in one cassette. B. Received in formalin are three pieces of pablo, soft tissue aggregating to 1.4 x 0.2 x 0.2 cm. Totally submitted in one cassette. C. Received in formalin are two pieces of pablo, soft tissue aggregating to 0.7 x 0.2 x 0.2 cm. Totally submitted in one cassette. D. Received in formalin are multiple pieces of pablo, soft tissue aggregating to 1.6 x 0.7 x 0.3 cm. Totally submitted in three cassettes. Gross examination performed at [facility], [address] [place] [address] 11/07/2020 10:52:00 PM [facility] CONVERTED CLINICAL HISTORY Z80.0, LMP: N/A A: R/O CELIAC B: R/O H. PYLORI D: R/O MICROSCOPIC COLITIS [facility] CONVERTED SPECIMENS RANDOM DUODENUM, BIOPSY GASTRIC, BIOPSY RANDOM TERMINAL ILEUM, BIOPSY COLON, BIOPSY COPATH[facility] CONVERTED COMPLETE REPORT Specimen originated from [facility] Specimen #: [id number] Submitting Physician: SADA SNYDER MD, MPH FINAL DIAGNOSIS 1. Random duodenum, biopsy (A) - Small intestinal mucosa with no diagnostic alteration. - No morphologic evidence of celiac disease. 2. Stomach, biopsy (B) - Antral and oxyntic mucosa with no diagnostic alteration. - No morphologic evidence of Helicobacter pylori. 3. Random terminal ileum, biopsy (C) - Fragmented superficial pieces of intestinal villi with no diagnostic alteration. 4. Colon, biopsy (D) - Colonic mucosa with no diagnostic alteration. - No morphologic evidence of microscopic colitis. SEJAL/db 11/08/2020 Julio C Schmidt MD, Ph.D. (Electronic Signature) SPECIMEN SUBMITTED A: RANDOM DUODENUM, BIOPSY B: GASTRIC, BIOPSY C: RANDOM TERMINAL ILEUM, BIOPSY D: COLON, BIOPSY CLINICAL DATA Z80.0, LMP: N/A A: R/O CELIAC B: R/O H. PYLORI D: R/O MICROSCOPIC COLITIS GROSS DESCRIPTION A. Received in formalin are two pieces of pablo, soft tissue aggregating to 0.6 x 0.3 x 0.2 cm. Totally submitted in one cassette. B. Received in formalin are three pieces of pablo, soft tissue aggregating to 1.4 x 0.2 x 0.2 cm. Totally submitted in one cassette. C. Received in formalin are two pieces of pablo, soft tissue aggregating to 0.7 x 0.2 x 0.2 cm. Totally submitted in one cassette. D. Received in formalin are multiple pieces of pablo, soft tissue aggregating to 1.6 x 0.7 x 0.3 cm. Totally submitted in three cassettes. Gross examination performed at [facility], [address] [place] [address] 11/07/2020 10:52:00 PM Date of Report: 11/11/2020 Date of Procedure: 11/07/2020 Date of Receipt: 11/07/2020 Submitted by: SADA SNYDER MD, MPH Location: L01 Diagnostic interpretation performed at [place] [address]. CLIA Number: [id number] [facility] CONVERTED ORDERING PROVIDER Ordering Provider: SADA MAJORPLUS Lab Results - CONVERTED SURGICAL PATHOLOGY (11/07/2020 8:00 AM EDT) COLONIC BIOPSY SPECIMEN / Unknown 11/07/2020 8:00 AM EDT 11/07/2020 6:22 PM EDT GASTRIC BIOPSY SPECIMEN / Unknown 11/07/2020 8:00 AM EDT 11/07/2020 6:22 PM EDT STRUCTURE OF DISTAL PORTION OF ILEUM / Unknown 11/07/2020 8:00 AM EDT 11/07/2020 6:22 PM EDT COLONIC BIOPSY SPECIMEN / Unknown 11/07/2020 8:00 AM EDT 11/07/2020 6:22 PM EDT Lab Results - CONVERTED SURGICAL PATHOLOGY (11/07/2020 8:00 AM EDT) Narrative Lab Results - CONVERTED SURGICAL PATHOLOGY (11/07/2020 8:00 AM EDT) Sada Snyder MD SURGICAL PATHOLOGY Lab Results - CONVERTED SURGICAL PATHOLOGY (11/07/2020 8:00 AM EDT) COPATHPLUS Back to top of Lab Results SURGICAL PATHOLOGY (11/07/2020 8:00 AM EDT) Lab Result (more content not included)... eyeOS XR Chest PA and Lateralon IMPRESSION: No acute cardiopulmonary process. Brazing Machine Operator Automatic: PSCB Transcribe Date/Time: Feb 05 2020 12:13P Dictated by : AURE MACKAY MD This examination was interpreted and the report reviewed and electronically signed by: AURE MACKAY MD on Feb 05 2020 12:15PM [facility] DIVISION OF RADIOLOGY * * *Final Report* * * DATE OF EXAM: Feb 05 2020 12:06PM [id number] - XR CHEST 2V FRONTAL/LAT / PROCEDURE REASON: multiple diagnoses * * * * Physician Interpretation * * * * EXAMINATION: CHEST RADIOGRAPH (2 VIEW FRONTAL & LATERAL) CLINICAL HISTORY: Cough Suspected COVID-19 virus infection MQ: XC2_6 EXAM DATE/TIME: 02/05/2020 12:06 PM COMPARISON: There are no prior relevant examinations available for comparison. RESULT: Lines, tubes, and devices: None. Lungs and pleura: There is no focal consolidation or acute pleural process/fluid. There is no vascular redistribution to suggest pulmonary edema. Cardiomediastinal silhouette: The cardiac, mediastinal and hilar shadows are within normal limits. Other: The bony structures are intact DIVISION OF RADIOLOGY Provider, Valentino Fuentes - 02/05/2020 * * *Final Report* * * DATE OF EXAM: Feb 05 2020 12:06PM WOX [id number] - XR CHEST 2V FRONTAL/LAT / PROCEDURE REASON: multiple diagnoses * * * * Physician Interpretation * * * * EXAMINATION: CHEST RADIOGRAPH (2 VIEW FRONTAL & LATERAL) CLINICAL HISTORY: Cough Suspected COVID-19 virus infection MQ: XC2_6 EXAM DATE/TIME: 02/05/2020 12:06 PM COMPARISON: There are no prior relevant examinations available for comparison. RESULT: Lines, tubes, and devices: None. Lungs and pleura: There is no focal consolidation or acute pleural process/fluid. There is no vascular redistribution to suggest pulmonary edema. Cardiomediastinal silhouette: The cardiac, mediastinal and hilar shadows are within normal limits. Other: The bony structures are intact IMPRESSION IMPRESSION: No acute cardiopulmonary process. Brazing Machine Operator Automatic: PSCB Transcribe Date/Time: Feb 05 2020 12:13P Dictated by : AURE MACKAY MD This examination was interpreted and the report reviewed and electronically signed by: AURE MACKAY MD on Feb 05 2020 12:15PM EST [facility] Radiology Study observation (narrative) [facility] XR Chest PA and LateralOrder ed By: [facility] Provider on 02-05-2020 [facility] Vital Signs Date Time Vital Sign Value Performing Clinician Facility 05-17-2024 09:30-0500 Diastolic blood pressure 72 mm[Hg] Ashley Gomez APRN - CHIEF CATALYST OPERATOR Work Phone: [facility] 05-17-2024 09:30-0500 Systolic blood pressure 136 mm[Hg] Ashley Gomez APRN - CHIEF CATALYST OPERATOR Work Phone: [facility] 05-17-2024 09:12-0500 Body height 172.7 cm Ashley Gomez APRN - CHIEF CATALYST OPERATOR Work Phone: [facility] 05-17-2024 09:12-0500 Body mass index (BMI) [Ratio] 37.5 kg/m2 Ashley Gomez APRN - CHIEF CATALYST OPERATOR Work Phone: [facility] 05-17-2024 09:12-0500 Body weight 111.86 kg Ashley Gomez APPLICATION SUPPORT INTERN - CHIEF CATALYST OPERATOR Work Phone: [facility] 05-17-2024 09:12-0500 Heart rate 93 /min Ashley Gomez APPLICATION SUPPORT INTERN - CHIEF CATALYST OPERATOR Work Phone: [facility] 05-17-2024 09:12-0500 SaO2% (BldA) [Mass fraction] 96 % Ashley Gomez APPLICATION SUPPORT INTERN - CHIEF CATALYST OPERATOR Work Phone: [facility] 12-22-2023 09:03-0400 Body height 172.7 cm Fallon Pop MD Work Phone: [facility] 12-22-2023 09:03-0400 Body mass index (BMI) [Ratio] 37.24 kg/m2 Fallon Pop MD Work Phone: [facility] 12-22-2023 09:03-0400 Body temperature 96.6 [degF] Fallon Pop MD Work Phone: [facility] 12-22-2023 09:03-0400 Body weight 111.1 kg Fallon Pop MD Work Phone: [facility] 12-22-2023 09:03-0400 Diastolic blood pressure 75 mm[Hg] Fallon Pop MD Work Phone: [facility] 12-22-2023 09:03-0400 Heart rate 97 /min Fallon Pop MD Work Phone: [facility] 12-22-2023 09:03-0400 Systolic blood pressure 114 mm[Hg] Fallon Pop MD Work Phone: [facility] 11-10-2023 10:20-0400 Diastolic blood pressure 74 mm[Hg] Ashley Gomez APPLICATION SUPPORT INTERN - CHIEF CATALYST OPERATOR Work Phone: [facility] 11-10-2023 10:20-0400 Systolic blood pressure 128 mm[Hg] Ashley Gomez APPLICATION SUPPORT INTERN - CHIEF CATALYST OPERATOR Work Phone: [facility] 11-10-2023 09:55-0400 Body height 172.7 cm Ashley Gomez APRN - CHIEF CATALYST OPERATOR Work Phone: [facility] 11-10-2023 09:55-0400 Body mass index (BMI) [Ratio] 36.34 kg/m2 Ashley Gomez APRN - CHIEF CATALYST OPERATOR Work Phone: [facility] 11-10-2023 09:55-0400 Body weight 108.41 kg Ashley Gomez APRN - CHIEF CATALYST OPERATOR Work Phone: [facility] 11-10-2023 09:55-0400 Heart rate 80 /min Ashley Gomez APRN - CHIEF CATALYST OPERATOR Work Phone: [facility] 11-10-2023 09:55-0400 SaO2% (BldA) [Mass fraction] 98 % Ashley Gomez APRN - CHIEF CATALYST OPERATOR Work Phone: [facility] 10-18-2023 15:55-0400 Diastolic blood pressure 72 mm[Hg] Cachorro Douglas DO Work Phone: [facility] 10-18-2023 15:55-0400 Heart rate 78 /min Cachorro Douglas DO Work Phone: [facility] 10-18-2023 15:55-0400 Respiratory rate 14 /min Cachorro Douglas DO Work Phone: [facility] 10-18-2023 15:55-0400 SaO2% (BldA) [Mass fraction] 98 % Cachorro Douglas DO Work Phone: [facility] 10-18-2023 15:55-0400 Systolic blood pressure 119 mm[Hg] Cachorro Douglas DO Work Phone: [facility] 10-18-2023 12:38-0400 Body mass index (BMI) [Ratio] 36.49 kg/m2 Cachorro Douglas DO Work Phone: [facility] 10-18-2023 12:38-0400 Body temperature 98.01 [degF] Cachorro Douglas DO Work Phone: [facility] 10-18-2023 12:38-0400 Body weight 108.86 kg Cachorro Vides DO Work Phone: [facility] 07-14-2023 09:43-0400 Body height 172.[address] Geeta Hickman Work Phone: [facility] 07-14-2023 09:29-0400 Body mass index (BMI) [Ratio] 36.2 kg/m2 Dr. Geeta Hickman Work Phone: [facility] 07-14-2023 09:29-0400 Body weight 108.[address] Geeta Hickman Work Phone: [facility] 07-14-2023 09:29-0400 Diastolic blood pressure 82 mm[Hg] Dr. Geeta Hickman Work Phone: [facility] 07-14-2023 09:29-0400 Systolic blood pressure 124 mm[Hg] Dr. Geeta Hickman Work Phone: [facility] 07-08-2023 08:51-0400 Body height 172.7 cm Maria Elena Carvajal APRN.CHIEF CATALYST OPERATOR Work Phone: [facility] 07-08-2023 08:51-0400 Body weight 108 kg Maria Elena Carvajal APPLICATION SUPPORT INTERN.CHIEF CATALYST OPERATOR Work Phone: [facility] 07-08-2023 08:51-0400 Diastolic blood pressure 79 mm[Hg] Maria Elena Conninski APPLICATION SUPPORT INTERN.CHIEF CATALYST OPERATOR Work Phone: [facility] 07-08-2023 08:51-0400 Heart rate 97 /min Maria Elena Carvajal APPLICATION SUPPORT INTERN.CHIEF CATALYST OPERATOR Work Phone: [facility] 07-08-2023 08:51-0400 Systolic blood pressure 134 mm[Hg] Maria Elena Carvajal APPLICATION SUPPORT INTERN.CHIEF CATALYST OPERATOR Work Phone: [facility] 07-05-2023 14:16-0400 Body temperature 98 [degF] Dr. Geeta Hickman Work Phone: [facility] 07-05-2023 14:16-0400 Diastolic blood pressure 82 mm[Hg] Dr. Geeta Hickman Work Phone: [facility] 07-05-2023 14:16-0400 Heart rate 77 /min Dr. Geeta Hickman Work Phone: [facility] 07-05-2023 14:16-0400 Respiratory rate 16 /min Dr. Geeta Hickman Work Phone: [facility] 07-05-2023 14:16-0400 SaO2% (BldA) [Mass fraction] 98 % Dr. Geeta Hickman Work Phone: [facility] 07-05-2023 14:16-0400 Systolic blood pressure 146 mm[Hg] Dr. Geeta Hickman Work Phone: [facility] 07-05-2023 10:57-0400 Body height 172.[address] Geeta Hickman Work Phone: [facility] 07-05-2023 10:57-0400 Body mass index (BMI) [Ratio] 35.2 kg/m2 Dr. Geeta Hickman Work Phone: [facility] 07-05-2023 10:57-0400 Body weight 105.[address] Geeta Hickman Work Phone: [facility] 07-04-2023 11:00-0400 Body temperature 97.5 [degF] Dr. Geeta Hickman Work Phone: [facility] 07-04-2023 11:00-0400 Diastolic blood pressure 57 mm[Hg] Dr. Geeta Hickman Work Phone: [facility] 07-04-2023 11:00-0400 Heart rate 88 /min Dr. Geeta Hickman Work Phone: [facility] 07-04-2023 11:00-0400 Respiratory rate 16 /min Dr. Geeta Hickman Work Phone: [facility] 07-04-2023 11:00-0400 SaO2% (BldA) [Mass fraction] 97 % Dr. Geeta Hickman Work Phone: [facility] 07-04-2023 11:00-0400 Systolic blood pressure 115 mm[Hg] Dr. Geeta Hickman Work Phone: [facility] 07-04-2023 07:28-0400 Body height 172.[address] Geeta Hickman Work Phone: [facility] 07-04-2023 07:28-0400 Body mass index (BMI) [Ratio] 36.5 kg/m2 Dr. Geeta Hickman Work Phone: [facility] 07-04-2023 07:28-0400 Body weight [address] Geeta Hickman Work Phone: [facility] 06-18-2023 09:33-0400 Body mass index (BMI) [Ratio] 37.13 kg/m2 Ashley Gomez APPLICATION SUPPORT INTERN - CHIEF CATALYST OPERATOR Work Phone: [facility] 06-18-2023 09:33-0400 Body weight 110.77 kg Ashley Gomez APPLICATION SUPPORT INTERN - CHIEF CATALYST OPERATOR Work Phone: [facility] 06-18-2023 09:33-0400 Diastolic blood pressure 74 mm[Hg] Ashley Gomez APPLICATION SUPPORT INTERN - CHIEF CATALYST OPERATOR Work Phone: [facility] 06-18-2023 09:33-0400 Heart rate 79 /min Ashley Gomez APPLICATION SUPPORT INTERN - CHIEF CATALYST OPERATOR Work Phone: [facility] 06-18-2023 09:33-0400 SaO2% (BldA) [Mass fraction] 98 % Ashley Gomez APPLICATION SUPPORT INTERN - CHIEF CATALYST OPERATOR Work Phone: [facility] 06-18-2023 09:33-0400 Systolic blood pressure 118 mm[Hg] Ashley Gomze APPLICATION SUPPORT INTERN - CHIEF CATALYST OPERATOR Work Phone: [facility] 06-10-2023 08:09-0400 Body temperature 97.4 [degF] Dr. Geeta Hickman Work Phone: [facility] 06-10-2023 08:09-0400 Diastolic blood pressure 83 mm[Hg] Dr. Geeta Hickman Work Phone: [facility] 06-10-2023 08:09-0400 Heart rate 76 /min Dr. Geeta Hickman Work Phone: [facility] 06-10-2023 08:09-0400 Respiratory rate 16 /min Dr. Geeta Hickman Work Phone: [facility] 06-10-2023 08:09-0400 SaO2% (BldA) [Mass fraction] 97 % Dr. Geeta Hickman Work Phone: [facility] 06-10-2023 08:09-0400 Systolic blood pressure 126 mm[Hg] Dr. Geeta Hickman Work Phone: [facility] 06-10-2023 06:25-0400 Body height 172.[address] Geeta Hickman Work Phone: [facility] 06-10-2023 06:25-0400 Body mass index (BMI) [Ratio] 37.2 kg/m2 Dr. Geeta Hickman Work Phone: [facility] 06-10-2023 06:25-0400 Body weight [address] Geeta Hickman Work Phone: [facility] 04-28-2023 10:04-0500 Body height 172.7 cm Ashley Gomez APPLICATION SUPPORT INTERN - CHIEF CATALYST OPERATOR Work Phone: [facility] 04-28-2023 10:04-0500 Body mass index (BMI) [Ratio] 36.49 kg/m2 Ashley Gomez APPLICATION SUPPORT INTERN - CHIEF CATALYST OPERATOR Work Phone: [facility] 04-28-2023 10:04-0500 Body weight 108.86 kg Ashley Gomez APPLICATION SUPPORT INTERN - CHIEF CATALYST OPERATOR Work Phone: [facility] 04-28-2023 10:04-0500 Diastolic blood pressure 71 mm[Hg] Ashley Gomez APPLICATION SUPPORT INTERN - CHIEF CATALYST OPERATOR Work Phone: [facility] 04-28-2023 10:04-0500 Heart rate 92 /min Ashley Gomez APPLICATION SUPPORT INTERN - CHIEF CATALYST OPERATOR Work Phone: [facility] 04-28-2023 10:04-0500 SaO2% (BldA) [Mass fraction] 97 % Ashley Gomez APPLICATION SUPPORT INTERN - CHIEF CATALYST OPERATOR Work Phone: [facility] 04-28-2023 10:04-0500 Systolic blood pressure 139 mm[Hg] Ashley Gomez APPLICATION SUPPORT INTERN - CHIEF CATALYST OPERATOR Work Phone: [facility] 04-21-2023 19:18-0500 Body temperature 97.6 [degF] [facility] 04-21-2023 19:18-0500 Diastolic blood pressure 76 mm[Hg] [facility] 04-21-2023 19:18-0500 Heart rate 64 /min [facility] 04-21-2023 19:18-0500 Respiratory rate 16 /min [facility] 04-21-2023 19:18-0500 SaO2% (BldA) [Mass fraction] 99 % [facility] 04-21-2023 19:18-0500 Systolic blood pressure 134 mm[Hg] [facility] 04-21-2023 16:16-0500 Body mass index (BMI) [Ratio] 36.6 kg/m2 [facility] 04-21-2023 16:16-0500 Body weight 109.1 kg [facility] 04-21-2023 14:41-0500 Body height 172.72 cm [facility] 12-16-2022 10:39-0400 Body height 172.7 cm Ashley Gomez APPLICATION SUPPORT INTERN - CHIEF CATALYST OPERATOR Work Phone: [facility] 12-16-2022 10:39-0400 Body mass index (BMI) [Ratio] 33.3 kg/m2 Ashley Gomez APPLICATION SUPPORT INTERN - CHIEF CATALYST OPERATOR Work Phone: [facility] 12-16-2022 10:39-0400 Body weight 99.34 kg Ashley Gomez APPLICATION SUPPORT INTERN - CHIEF CATALYST OPERATOR Work Phone: [facility] 12-16-2022 10:39-0400 Diastolic blood pressure 72 mm[Hg] Ashley Gomez APPLICATION SUPPORT INTERN - CHIEF CATALYST OPERATOR Work Phone: [facility] 12-16-2022 10:39-0400 Heart rate 78 /min Ashley Gomez APPLICATION SUPPORT INTERN - CHIEF CATALYST OPERATOR Work Phone: [facility] 12-16-2022 10:39-0400 SaO2% (BldA) [Mass fraction] 97 % Ashley Gomez APPLICATION SUPPORT INTERN - CHIEF CATALYST OPERATOR Work Phone: [facility] 12-16-2022 10:39-0400 Systolic blood pressure 124 mm[Hg] Ashley Gomez APPLICATION SUPPORT INTERN - CHIEF CATALYST OPERATOR Work Phone: [facility] 10-30-2022 07:50-0400 Body height 172.7 cm Ashley Gomez APPLICATION SUPPORT INTERN - CHIEF CATALYST OPERATOR Work Phone: [facility] 10-30-2022 07:50-0400 Body mass index (BMI) [Ratio] 33.3 kg/m2 Ashley Gomez APPLICATION SUPPORT INTERN - CHIEF CATALYST OPERATOR Work Phone: [facility] 10-30-2022 07:50-0400 Body weight 99.34 kg Ashley Gomez APPLICATION SUPPORT INTERN - CHIEF CATALYST OPERATOR Work Phone: [facility] 10-30-2022 07:50-0400 Diastolic blood pressure 66 mm[Hg] Ashley Gomez APPLICATION SUPPORT INTERN - CHIEF CATALYST OPERATOR Work Phone: [facility] 10-30-2022 07:50-0400 Heart rate 80 /min Ashley Gomez APPLICATION SUPPORT INTERN - CHIEF CATALYST OPERATOR Work Phone: [facility] 10-30-2022 07:50-0400 SaO2% (BldA) [Mass fraction] 98 % Ashley Gomez APPLICATION SUPPORT INTERN - CHIEF CATALYST OPERATOR Work Phone: [facility] 10-30-2022 07:50-0400 Systolic blood pressure 118 mm[Hg] Ashley Gomez APPLICATION SUPPORT INTERN - CHIEF CATALYST OPERATOR Work Phone: [facility] 08-20-2022 13:35-0400 Body height 172.[address] Geeta Hickman Work Phone: [facility] 07-10-2022 09:05-0400 Body height 172.[address] Geeta Hickman Work Phone: [facility] 07-10-2022 09:05-0400 Body mass index (BMI) [Ratio] 36.1 kg/m2 Dr. Geeta Hickman Work Phone: [facility] 07-10-2022 09:05-0400 Body temperature 97.5 [degF] Dr. Geeta Hickman Work Phone: [facility] 07-10-2022 09:05-0400 Body weight 107.[address] Geeta Hickman Work Phone: [facility] 07-10-2022 09:05-0400 Diastolic blood pressure 82 mm[Hg] Dr. Geeta Hickman Work Phone: [facility] 07-10-2022 09:05-0400 Heart rate 86 /min Dr. Geeta Hickman Work Phone: [facility] 07-10-2022 09:05-0400 Respiratory rate 18 /min Dr. Geeta Hickman Work Phone: [facility] 07-10-2022 09:05-0400 SaO2% (BldA) [Mass fraction] 96 % Dr. Geeta Hickman Work Phone: [facility] 07-10-2022 09:05-0400 Systolic blood pressure 130 mm[Hg] Dr. Geeta Hickman Work Phone: [facility] 07-08-2022 09:26-0400 Body mass index (BMI) [Ratio] 36.8 kg/m2 Dr. Geeta Hickman Work Phone: [facility] 07-08-2022 09:26-0400 Body weight 109.[address] Geeta Hickman Work Phone: [facility] 07-08-2022 09:26-0400 Diastolic blood pressure 80 mm[Hg] Dr. Geeta Hickman Work Phone: [facility] 07-08-2022 09:26-0400 Systolic blood pressure 128 mm[Hg] Dr. Geeta Hickman Work Phone: [facility] 06-24-2022 10:06-0400 Body mass index (BMI) [Ratio] 36.5 kg/m2 Dr. Geeta Hickman Work Phone: [facility] 06-24-2022 10:06-0400 Body temperature 95.4 [degF] Dr. Geeta Hickman Work Phone: [facility] 06-24-2022 10:06-0400 Body weight 108.[address] Geeta Hickman Work Phone: [facility] 06-24-2022 10:06-0400 Diastolic blood pressure 82 mm[Hg] Dr. Geeta Hickman Work Phone: [facility] 06-24-2022 10:06-0400 Heart rate 92 /min Dr. Geeta Hickman Work Phone: [facility] 06-24-2022 10:06-0400 Respiratory rate 18 /min Dr. Geeta Hickman Work Phone: [facility] 06-24-2022 10:06-0400 SaO2% (BldA) [Mass fraction] 98 % Dr. Geeta Hickman Work Phone: [facility] 06-24-2022 10:06-0400 Systolic blood pressure 134 mm[Hg] Dr. Geeta Hickman Work Phone: [facility] 06-16-2022 01:29-0400 Heart rate 89 /min Dr. Geeta Hickman Work Phone: [facility] 06-16-2022 01:29-0400 Respiratory rate 18 /min Dr. Geeta Hickman Work Phone: [facility] 06-16-2022 01:29-0400 SaO2% (BldA) [Mass fraction] 100 % Dr. Geeta Hickman Work Phone: [facility] 06-15-2022 22:12-0400 Body height 172.[address] Geeta Hickman Work Phone: [facility] 06-15-2022 22:12-0400 Body mass index (BMI) [Ratio] 36.8 kg/m2 Dr. Geeta Hickman Work Phone: [facility] 06-15-2022 22:12-0400 Body temperature 98.8 [degF] Dr. Geeta Hickman Work Phone: [facility] 06-15-2022 22:12-0400 Body weight [address] Geeta Hickman Work Phone: [facility] 06-15-2022 22:12-0400 Diastolic blood pressure 104 mm[Hg] Dr. Geeta Hicmkan Work Phone: [facility] 06-15-2022 22:12-0400 Systolic blood pressure 127 mm[Hg] Dr. Geeta Hickman Work Phone: [facility] 06-15-2022 11:05-0400 Body temperature 97.81 [degF] Nadia Bolanos PA-C Work Phone: [facility] 06-15-2022 11:05-0400 Body weight 109.77 kg Nadia Bolanos PA-C Work Phone: [facility] 06-15-2022 11:05-0400 Diastolic blood pressure 78 mm[Hg] Nadia Bolanos PA-C Work Phone: [facility] 06-15-2022 11:05-0400 Heart rate 110 /min Nadia Bogner PA-C Work Phone: [facility] 06-15-2022 11:05-0400 Respiratory rate 20 /min Nadia Carringtonner PA-C Work Phone: [facility] 06-15-2022 11:05-0400 SaO2% (BldA) [Mass fraction] 96 % Nadia Carringtonner PA-C Work Phone: [facility] 06-15-2022 11:05-0400 Systolic blood pressure 136 mm[Hg] Nadia Carringtonner PA-C Work Phone: [facility] 06-09-2022 06:48-0400 Body temperature 97.6 [degF] Dr. Geeta Hickman Work Phone: [facility] 06-09-2022 06:48-0400 Diastolic blood pressure 84 mm[Hg] Dr. Geeta Hickman Work Phone: [facility] 06-09-2022 06:48-0400 Heart rate 112 /min Dr. Geeta Hickman Work Phone: [facility] 06-09-2022 06:48-0400 Respiratory rate 15 /min Dr. Geeta Hickman Work Phone: [facility] 06-09-2022 06:48-0400 SaO2% (BldA) [Mass fraction] 98 % Dr. Geeta Hickman Work Phone: [facility] 06-09-2022 06:48-0400 Systolic blood pressure 122 mm[Hg] Dr. Geeta Hickman Work Phone: [facility] 06-03-2022 15:19-0500 Body height 172.[address] Geeta Hickman Work Phone: [facility] 06-03-2022 15:19-0500 Body mass index (BMI) [Ratio] 36.2 kg/m2 Dr. Geeta Hickman Work Phone: [facility] 06-03-2022 15:19-0500 Body weight 108.[address] Geeta Hickman Work Phone: [facility] 06-03-2022 15:19-0500 Diastolic blood pressure 82 mm[Hg] Dr. Geeta Hickman Work Phone: [facility] 06-03-2022 15:19-0500 Systolic blood pressure 120 mm[Hg] Dr. Geeta Hickman Work Phone: [facility] 05-20-2022 07:38-0500 Body height 172.[address] Geeta Hickman Work Phone: [facility] 05-20-2022 07:38-0500 Body mass index (BMI) [Ratio] 36.1 kg/m2 Dr. Geeta Hickman Work Phone: [facility] 05-20-2022 07:38-0500 Body temperature 96 [degF] Dr. Geeta Hickman Work Phone: [facility] 05-20-2022 07:38-0500 Body weight 107.[address] Geeta Hickman Work Phone: [facility] 05-20-2022 07:38-0500 Diastolic blood pressure 80 mm[Hg] Dr. Geeta Hickman Work Phone: [facility] 05-20-2022 07:38-0500 Heart rate 86 /min Dr. Geeta Hickman Work Phone: [facility] 05-20-2022 07:38-0500 Respiratory rate 16 /min Dr. Geeta Hickman Work Phone: [facility] 05-20-2022 07:38-0500 SaO2% (BldA) [Mass fraction] 99 % Dr. Geeta Hickman Work Phone: [facility] 05-20-2022 07:38-0500 Systolic blood pressure 122 mm[Hg] Dr. Geeta Hickman Work Phone: [facility] 05-05-2022 06:42-0500 Body height 172.[address] Geeta Hickman Work Phone: [facility] 05-05-2022 06:42-0500 Body mass index (BMI) [Ratio] 36.1 kg/m2 Dr. Geeta Hickman Work Phone: [facility] 05-05-2022 06:42-0500 Body temperature 96.5 [degF] Dr. Geeta Hickman Work Phone: [facility] 05-05-2022 06:42-0500 Body weight 107.[address] Geeta Hickman Work Phone: [facility] 05-05-2022 06:42-0500 Diastolic blood pressure 82 mm[Hg] Dr. Geeta Hickman Work Phone: [facility] 05-05-2022 06:42-0500 Heart rate 84 /min Dr. Geeta Hickman Work Phone: [facility] 05-05-2022 06:42-0500 Respiratory rate 18 /min Dr. Geeta Hickman Work Phone: [facility] 05-05-2022 06:42-0500 SaO2% (BldA) [Mass fraction] 97 % Dr. Geeta Hickman Work Phone: [facility] 05-05-2022 06:42-0500 Systolic blood pressure 124 mm[Hg] Dr. Geeta Hickman Work Phone: [facility] 04-01-2022 10:07-0500 Body height 172.[address] Geeta Hickman Work Phone: [facility] 04-01-2022 10:07-0500 Body mass index (BMI) [Ratio] 36.1 kg/m2 Dr. Geeta Hickman Work Phone: [facility] 04-01-2022 10:07-0500 Body temperature 96.8 [degF] Dr. Geeta Hickman Work Phone: [facility] 04-01-2022 10:07-0500 Body weight 107.[address] Geeta Hickman Work Phone: [facility] 04-01-2022 10:07-0500 Diastolic blood pressure 84 mm[Hg] Dr. Geeta Hickman Work Phone: [facility] 04-01-2022 10:07-0500 Heart rate 95 /min Dr. Geeta Hickman Work Phone: [facility] 04-01-2022 10:07-0500 Respiratory rate 16 /min Dr. Geeta Hickman Work Phone: [facility] 04-01-2022 10:07-0500 SaO2% (BldA) [Mass fraction] 97 % Dr. Geeta Hickman Work Phone: [facility] 04-01-2022 10:07-0500 Systolic blood pressure 108 mm[Hg] Dr. Geeta Hickman Work Phone: [facility] 02-19-2022 19:35-0500 Respiratory rate 18 /min Dr. Ashok Siu Work Phone: [facility] 02-19-2022 18:11-0500 Body height 172.[address] Ashok Siu Work Phone: [facility] Work Phone: 02-19-2022 18:11-0500 Body mass index (BMI) [Ratio] 35.7 kg/m2 Dr. Ashok Siu Work Phone: [facility] 02-19-2022 18:11-0500 Body temperature 97.3 [degF] Dr. Ashok Siu Work Phone: [facility] 02-19-2022 18:11-0500 Body weight 106.[address] Ashok Siu Work Phone: [facility] 02-19-2022 18:11-0500 Diastolic blood pressure 98 mm[Hg] Dr. Ashok Siu Work Phone: [facility] 02-19-2022 18:11-0500 Heart rate 95 /min Dr. Ashok Siu Work Phone: [facility] 02-19-2022 18:11-0500 SaO2% (BldA) [Mass fraction] 97 % Dr. Ashok Siu Work Phone: [facility] 02-19-2022 18:11-0500 Systolic blood pressure 165 mm[Hg] Dr. Ashok Siu Work Phone: [facility] 01-05-2022 19:00-0400 Body temperature 98.2 [degF] Ashley Owens APRN.CHIEF CATALYST OPERATOR Work Phone: [facility] 01-05-2022 19:00-0400 Body weight 108.32 kg Ashley Owens APRN.CHIEF CATALYST OPERATOR Work Phone: [facility] 01-05-2022 19:00-0400 Diastolic blood pressure 86 mm[Hg] Ashley Owens APRN.CHIEF CATALYST OPERATOR Work Phone: [facility] 01-05-2022 19:00-0400 Heart rate 89 /min Ashley Owens APRN.CHIEF CATALYST OPERATOR Work Phone: [facility] 01-05-2022 19:00-0400 Respiratory rate 20 /min Ashley Owens APRN.CHIEF CATALYST OPERATOR Work Phone: [facility] 01-05-2022 19:00-0400 SaO2% (BldA) [Mass fraction] 98 % Ashley Owens APRN.CHIEF CATALYST OPERATOR Work Phone: [facility] 01-05-2022 19:00-0400 Systolic blood pressure 128 mm[Hg] Ashley Owens APRN.CHIEF CATALYST OPERATOR Work Phone: [facility] 12-24-2021 08:33-0400 Body height 172.[address] Ashok Siu Work Phone: [facility] Work Phone: 12-24-2021 08:33-0400 Body mass index (BMI) [Ratio] 35.7 kg/m2 Dr. Ashok Siu Work Phone: [facility] 12-24-2021 08:33-0400 Body temperature 98.4 [degF] Dr. Ashok Siu Work Phone: [facility] 12-24-2021 08:33-0400 Body weight 106.[address] Ashok Siu Work Phone: [facility] 12-24-2021 08:33-0400 Diastolic blood pressure 88 mm[Hg] Dr. Ashok Siu Work Phone: [facility] 12-24-2021 08:33-0400 Heart rate 86 /min Dr. Ashok Siu Work Phone: [facility] 12-24-2021 08:33-0400 Respiratory rate 14 /min Dr. Ashok Siu Work Phone: [facility] 12-24-2021 08:33-0400 SaO2% (BldA) [Mass fraction] 98 % Dr. Ashok Siu Work Phone: [facility] 12-24-2021 08:33-0400 Systolic blood pressure 134 mm[Hg] Dr. Ashok Siu Work Phone: [facility] 11-05-2021 11:29-0400 Body mass index (BMI) [Ratio] 35.7 kg/m2 Dr. Ashok Siu Work Phone: [facility] Work Phone: 11-05-2021 11:29-0400 Body mass index (BMI) [Ratio] 35.6 kg/m2 Dr. Ashok Siu Work Phone: [facility] Work Phone: 11-05-2021 11:29-0400 Body temperature 98.3 [degF] Dr. Ashok Siu Work Phone: [facility] Work Phone: 11-05-2021 11:29-0400 Body weight 106.[address] Ashok Siu Work Phone: [facility] Work Phone: 11-05-2021 11:29-0400 Body weight 106.[address] Ashok Siu Work Phone: [facility] Work Phone: 11-05-2021 11:29-0400 Diastolic blood pressure 76 mm[Hg] Dr. Ashok Siu Work Phone: [facility] Work Phone: 11-05-2021 11:29-0400 Heart rate 89 /min Dr. Ashok Siu Work Phone: [facility] Work Phone: 11-05-2021 11:29-0400 Respiratory rate 14 /min Dr. Ashok Siu Work Phone: [facility] Work Phone: 11-05-2021 11:29-0400 SaO2% (BldA) [Mass fraction] 98 % Dr. Ashok Siu Work Phone: [facility] Work Phone: 11-05-2021 11:29-0400 Systolic blood pressure 128 mm[Hg] Dr. Ashok Siu Work Phone: [facility] Work Phone: 10-29-2021 14:58-0400 Body mass index (BMI) [Ratio] 35.4 kg/m2 Dr. Ashok Siu Work Phone: [facility] Work Phone: 10-29-2021 14:58-0400 Body temperature 97.6 [degF] Dr. Ashok Siu Work Phone: [facility] Work Phone: 10-29-2021 14:58-0400 Body weight 105.[address] Ashok Siu Work Phone: [facility] Work Phone: 10-29-2021 14:58-0400 Diastolic blood pressure 82 mm[Hg] Dr. Ashok Siu Work Phone: [facility] Work Phone: 10-29-2021 14:58-0400 Heart rate 91 /min Dr. Ashok Siu Work Phone: [facility] Work Phone: 10-29-2021 14:58-0400 Respiratory rate 16 /min Dr. Ashok Siu Work Phone: [facility] Work Phone: 10-29-2021 14:58-0400 SaO2% (BldA) [Mass fraction] 97 % Dr. Ashok Siu Work Phone: [facility] Work Phone: 10-29-2021 14:58-0400 Systolic blood pressure 124 mm[Hg] Dr. Ashok Siu Work Phone: [facility] Work Phone: 09-07-2021 12:53-0400 Body temperature 97.4 [degF] Dr. Ashok Siu Work Phone: [facility] Work Phone: 09-07-2021 12:53-0400 Diastolic blood pressure 84 mm[Hg] Dr. Ashok Siu Work Phone: [facility] Work Phone: 09-07-2021 12:53-0400 Heart rate 117 /min Dr. Ashok Siu Work Phone: [facility] Work Phone: 09-07-2021 12:53-0400 Respiratory rate 18 /min Dr. Ashok Siu Work Phone: [facility] Work Phone: 09-07-2021 12:53-0400 SaO2% (BldA) [Mass fraction] 98 % Dr. Ashok Siu Work Phone: [facility] Work Phone: 09-07-2021 12:53-0400 Systolic blood pressure 158 mm[Hg] Dr. Ashok Siu Work Phone: [facility] Work Phone: Encounters Encounter Date Encounter Type Care Provider Facility Start: 09-01-2024 ambulatory Ashley Gomez PHOTO PRINTER Facility :[facility] Start: 08-30-2024 ambulatory Ashley Gomez PHOTO PRINTER Facility :[facility] Start: 08-30-2024 End: 08-30-2024 ambulatory Ashley Gomez PHOTO PRINTER [facility] Start: 08-18-2024 End: 08-18-2024 ambulatory [facility] Start: 07-21-2024 End: 07-21-2024 Office outpatient visit 25 minutes Ashley Gomez APPLICATION SUPPORT INTERN - CHIEF CATALYST OPERATOR Work Phone: [facility] Comment on above: Neuropathy of right foot (Primary Dx); Depressive disorder; Anxiety; Rash and nonspecific skin eruption Start: 07-21-2024 End: 07-21-2024 ambulatory [facility] Start: 07-07-2024 End: 07-07-2024 ambulatory Ashley Gomez PHOTO PRINTER Facility[place] Start: 06-14-2024 ambulatory Ashley Gomez PHOTO PRINTER Facility :[facility] Start: 05-26-2024 End: 05-26-2024 Refill Ashley Gomez APPLICATION SUPPORT INTERN - CHIEF CATALYST OPERATOR Work Phone: [facility] Comment on above: Irritable bowel synd hugh with diarrhea Start: 05-17-2024 End: 05-17-2024 Office outpatient visit 25 minutes Ashley Gomez APPLICATION SUPPORT INTERN - CHIEF CATALYST OPERATOR Work Phone: [facility] Comment on above: Vitamin D deficiency (Primary Dx); Primary hypertension; Osteoarthritis of both knees, unspecified osteoarthritis type; Inflammatory polyarthropathy (HCC); Class 2 obesity due to excess calories without serious comorbidity with body mass index (BMI) of 37.0 to 37.9 in adult; Irritable bowel syndrome with both constipation and diarrhea; Gastroesophageal reflux disease, unspecified whether esophagitis present; Mild intermittent asthma without complication; Depressive disorder; Anxiety; Elevated LDL cholesterol level Start: 05-17-2024 End: 05-17-2024 ambulatory NAGA [facility] Start: 05-03-2024 End: 05-03-2024 ambulatory Ashley Gomez PHOTO PRINTER Facility:[facility] Start: 04-21-2024 End: 04-21-2024 ambulatory Ashley Gomez PHOTO PRINTER Facility[place] Start: 04-05-2024 End: 04-05-2024 ambulatory Ashley Gomez PHOTO PRINTER Facility:[facility] Start: 03-09-2024 End: 03-09-2024 Refill Naga Jin MD Work Phone: [facility] Comment on above: Mild intermittent as thma without complication Start: 02-28-2024 End: 02-28-2024 Refill Ashley Gomez APPLICATION SUPPORT INTERN - CHIEF CATALYST OPERATOR Work Phone: [facility] Comment on above: Osteoarthritis of chang th knees, unspecified osteoarthritis type Start: 02-28-2024 End: 02-28-2024 ambulatory Ashley Gomez PHOTO PRINTER Facility:[facility] Start: 02-25-2024 End: 02-25-2024 Office outpatient visit 25 minutes Ashley Gomez APPLICATION SUPPORT INTERN - CHIEF CATALYST OPERATOR Work Phone: [facility] Comment on above: Other fatigue (Prima ry Dx); Depressive disorder; Anxiety Start: 02-25-2024 End: 02-25-2024 ambulatory NAGA [facility] Start: 02-17-2024 End: 02-17-2024 Emergency department patient visit Ashley Gomez NP Facility:[facility] Start: 02-13-2024 End: 02-14-2024 Emergency department patient visit Ashley Gomez PHOTO PRINTER Facility:[facility] Start: 02-09-2024 End: 02-09-2024 Office outpatient visit 25 minutes Ashley Gomez APPLICATION SUPPORT INTERN - CHIEF CATALYST OPERATOR Work Phone: [facility] Comment on above: Other fatigue (Prima ry Dx); Depressive disorder; Anxiety Start: 02-09-2024 End: 02-09-2024 ambulatory NAGA [facility] Start: 12-22-2023 End: 12-22-2023 ambulatory FALLON POP Facility:[facility] Start: 12-22-2023 End: 12-22-2023 Patient encounter procedure Fallon Pop MD Work Phone: Rheumatology Comment on above: Inflammatory polyart hropathy (HCC) (Primary Dx) Start: 11-10-2023 End: 11-10-2023 Subsequent hospital visit by physician Christa Wong APPLICATION SUPPORT INTERN - CHIEF CATALYST OPERATOR Work Phone: [facility] Comment on above: Gross hematuria; Left lower quadrant abdominal pain; Other hydronephrosis Start: 11-10-2023 End: 11-10-2023 ambulatory CHRISTA WONG [facility] Start: 11-10-2023 End: 11-10-2023 Patient encounter status Ashley Gomez APPLICATION SUPPORT INTERN - CHIEF CATALYST OPERATOR [facility] Work [facility]: Start: 11-10-2023 End: 11-10-2023 Periodic preventive med est patient 40-64yrs Ashley Gomez APPLICATION SUPPORT INTERN - CHIEF CATALYST OPERATOR Work Phone: [facility] Comment on above: Well adult exam (Susanna dewayne Dx); Vitamin D deficiency; Primary hypertension; Osteoarthritis of both knees, unspecified osteoarthritis type; Class 2 obesity due to excess calories without serious comorbidity with body mass index (BMI) of 36.0 to 36.9 in adult; Irritable bowel syndrome, unspecified type; Gastroesophageal reflux disease, unspecified whether esophagitis present; Mild intermittent asthma without complication; Depressive disorder; Anxiety; Left flank pain; Left lower quadrant abdominal pain; Screening for diabetes mellitus; Screening for lipoid disorders; Need for vaccination with 20-polyvalent pneumococcal conjugate vaccine Start: 11-10-2023 End: 11-10-2023 ambulatory NAGA [facility] Start: 11-10-2023 End: 11-10-2023 Encounter for general adult medical examination without abnormal findings ASHLEY GOMEZ [facility] Start: 11-05-2023 End: 11-05-2023 ambulatory Ashley Gomez PHOTO PRINTER Facility:[facility] Start: 10-27-2023 End: 10-27-2023 Telephone encounter Christa Wong APPLICATION SUPPORT INTERN - CHIEF CATALYST OPERATOR Work Phone: [facility] U[facility] Comment on above: Other (Lasix renal s can) Start: 10-20-2023 End: 10-20-2023 Office outpatient visit 15 minutes Christa Wong APPLICATION SUPPORT INTERN - CHIEF CATALYST OPERATOR Work Phone: [facility] Comment on above: Left flank pain; Hematuria, unspecified type Start: 10-20-2023 End: 10-20-2023 ambulatory CACHORRO A [facility] Start: 10-18-2023 End: 10-18-2023 Subsequent hospital visit by physician [facility] [address] Exam Room [address] [facility] [address] Comment on above: Arrived Start: 10-18-2023 End: 10-18-2023 Emergency department patient visit CACHORROBHAVIN SCHREIBER [facility] Start: 10-18-2023 End: 10-18-2023 Emergency department patient visit Cachorro Vides DO Work Phone: [facility] Comment on above: Left flank pain (Susanna dewayne Dx); Hematuria, unspecified type Start: 10-15-2023 End: 10-15-2023 Office outpatient new 30 minutes Christa Wong APPLICATION SUPPORT INTERN - CHIEF CATALYST OPERATOR Work Phone: [facility] Comment on above: Other hydronephrosis (Primary Dx); Gross hematuria; Left lower quadrant abdominal pain Start: 10-15-2023 End: 10-15-2023 ambulatory CHRISTA WONG [facility] Start: 10-11-2023 End: 10-11-2023 ambulatory Ashley Gomez PHOTO PRINTER Facility:[facility] Start: 10-01-2023 End: 10-01-2023 ambulatory Ashley Gomez PHOTO PRINTER Facility:[facility] Start: 09-15-2023 End: 09-15-2023 Office outpatient visit 25 minutes Ashley Gomez APPLICATION SUPPORT INTERN - CHIEF CATALYST OPERATOR Work Phone: [facility] Comment on above: Depressive disorder; Anxiety Start: 09-15-2023 End: 09-15-2023 ambulatory NAGA JIN [facility] Start: 08-27-2023 Telephone encounter Cornell james MD Work Phone: [facility] Comment on above: Appointment Start: 08-27-2023 End: 08-27-2023 Office outpatient visit 25 minutes Ashley S Jason APPLICATION SUPPORT INTERN - CHIEF CATALYST OPERATOR Work Phone: [facility] Comment on above: Depressive disorder; Anxiety Start: 08-27-2023 End: 08-27-2023 ambulatory ASHLEY GOMEZ [facility] Start: 08-13-2023 End: 08-13-2023 Office outpatient visit 25 minutes Ashley Talia Jason APPLICATION SUPPORT INTERN - CHIEF CATALYST OPERATOR Work Phone: [facility] Comment on above: Depressive disorder (Primary Dx); Anxiety; Gross hematuria; Left lower quadrant abdominal pain; Osteoarthritis of both knees, unspecified osteoarthritis type Start: 08-10-2023 Telephone encounter Ashley Tapia APPLICATION SUPPORT INTERN - CHIEF CATALYST OPERATOR Work Phone: [facility] Comment on above: Test Scheduling Start: 07-16-2023 Orders Only Maria Elena Desmond gabriel APPLICATION SUPPORT INTERN.CHIEF CATALYST OPERATOR Work Phone: Urology Start: 07-16-2023 End: 07-16-2023 Office outpatient visit 15 minutes Ashley Talia Jason APPLICATION SUPPORT INTERN - CHIEF CATALYST OPERATOR Work Phone: [facility] Comment on above: Left lower quadrant abdominal pain (Primary Dx); Gross hematuria Start: 07-14-2023 End: 07-14-[address] Geeta Hickman Work Phone: [facility] Work Phone: Start: 07-14-2023 End: 07-14-[address] Geeta Hickman Work Phone: [facility]Laboratory, Specimen Work Phone: Start: 07-14-2023 End: 07-14-[address] Geeta Hickman Work Phone: [facility] Work Phone: Start: 07-12-2023 End: 07-12-2023 ambulatory Yojana Lares MD Work Phone: Urology Comment on above: Left lower quadrant abdominal pain (Primary Dx); Hematuria, unspecified type Start: 07-12-2023 End: 07-12-2023 Telemedicine consultation with patient Yojana Lares MD Work Phone: [facility] Start: 07-09-2023 End: 07-09-2023 ambulatory MARIA ELENA CARVAJAL Facility:[facility] Start: 07-09-2023 End: 07-09-2023 Subsequent hospital visit by physician [facility] (I-Stat) Work Phone: Cat Scan Comment on above: Gross hematuria [R31 .0] Start: 07-08-2023 End: 07-08-2023 ambulatory Maria Elena Carvajal APPLICATION SUPPORT INTERN.CHIEF CATALYST OPERATOR Work Phone: Urology Start: 07-08-2023 End: 07-08-2023 Patient encounter procedure Maria Elena Carvajal APPLICATION SUPPORT INTERN.CHIEF CATALYST OPERATOR Work Phone: Urology Comment on above: Gross hematuria (Susanna dewayne Dx); Left flank pain Start: 07-05-2023 End: 07-05-2023 Evaluation and management of inpatient Dr. Geeta Hickman Work Phone: [facility] 3 Work Phone: Start: 07-05-2023 End: 07-05-2023 Non-patient / Non-visit Dr. Geeta Hickman Work Phone: [facility] Work Phone: Start: 07-04-2023 End: 07-05-2023 Evaluation and management of inpatient Dr. Geeta Hickman Work Phone: [facility] Surgical 3 Work Phone: Start: 07-04-2023 End: 07-05-[address] Geeta Hickman Work Phone: [facility] Work Phone: Start: 06-30-2023 End: 06-30-[address] Geeta Hickman Work Phone: [facility] Work Phone: Start: 06-30-2023 End: 06-30-[address] Geeta Hickman Work Phone: [facility] OP Pavilion Start: 06-18-2023 End: 06-18-2023 Office outpatient visit 15 minutes Ashley Gomez APPLICATION SUPPORT INTERN - CHIEF CATALYST OPERATOR Work Phone: [facility] Comment on above: Class 2 obesity due to excess calories without serious comorbidity with body mass index (BMI) of 37.0 to 37.9 in adult (Primary Dx); COVID-19 virus infection; Herpes zoster without complication Start: 06-10-2023 End: 06-10-2023 Admission to same day surgery center Dr. Geeta Hickman Work Phone: [facility] Start: 06-10-2023 End: 06-10-[address] Geeta Hickman Work Phone: [facility] Work Phone: Start: 05-05-2023 End: 05-05-[address] Geeta Hickman Work Phone: [facility] Work Phone: Start: 05-05-2023 End: 05-05-[address] Geeta Hickman Work Phone: [facility] Work Phone: Start: 05-05-2023 End: 05-05-[address] Geeta Hickman Work Phone: [facility] Gastroenterology Work Phone: Start: 05-03-2023 Orders Only Ashley Gomez APPLICATION SUPPORT INTERN - CHIEF CATALYST OPERATOR Work Phone: [facility] Comment on above: Class 2 obesity due to excess calories without serious comorbidity with body mass index (BMI) of 36.0 to 36.9 in adult (Primary Dx) Start: 04-30-2023 End: 04-30-2023 Raul Jin MD Work Phone: [facility] Medicine Comment on above: Irritable bowel synd hugh with diarrhea Start: 04-30-2023 End: 04-30-[address] Geeta Hickman Work Phone: [facility] Work Phone: Start: 04-28-2023 End: 04-28-2023 Office outpatient visit 25 minutes Ashley Gomez APRN - CHIEF CATALYST OPERATOR Work Phone: [facility] [place] Comment on above: Right lower quadrant abdominal pain (Primary Dx); Nausea; Weight gain; Elevated glucose level; Primary hypertension; Irritable bowel syndrome, unspecified type; Gastroesophageal reflux disease, unspecified whether esophagitis present; Depressive disorder; Anxiety; Encounter for screening for HIV; Need for hepatitis C screening test Start: 04-21-2023 End: 04-21-2023 Emergency department patient visit [facility] Work Phone: Start: 04-09-2023 End: 04-09-2023 Patient encounter procedure [facility] Work Phone: Start: 03-08-2023 Orders Only Ashley Gomez APPLICATION SUPPORT INTERN - CHIEF CATALYST OPERATOR Work Phone: [facility] Medicine Start: 12-30-2022 Refill Naga Jin MD Work Phone: [facility] [place] Comment on above: Depressive disorder; Anxiety Start: 12-16-2022 End: 12-16-2022 Subsequent hospital visit by physician Ashley Gomez APRN - CHIEF CATALYST OPERATOR Work Phone: [facility] Radiology Comment on above: Injury due to fall, initial encounter; Left knee injury, initial encounter Start: 12-16-2022 End: 12-16-2022 Office outpatient visit 15 minutes Ashley Martinez Jason APPLICATION SUPPORT INTERN - CHIEF CATALYST OPERATOR Work Phone: [facility] Medicine Comment on above: Injury due to fall, initial encounter (Primary Dx); Left knee injury, initial encounter; Flu vaccine need Start: 11-22-2022 Refill Ashley Martinez Jason APPLICATION SUPPORT INTERN - CHIEF CATALYST OPERATOR Work Phone: [facility] Medicine Comment on above: Primary hypertension Start: 11-20-2022 End: 11-20-2022 Subsequent hospital visit by physician Tanna Tam Work Phone: [facility] Nuclear Medicine Comment on above: Irritable bowel synd hugh without diarrhea Start: 11-11-2022 Orders Only Tanna Tam Work Phone: [facility] Start: 11-11-2022 Transcribe Orders aTnna Early nd Work Phone: [facility] Scheduling Comment on above: Irritable bowel synd hugh without diarrhea (Primary Dx) Start: 10-30-2022 Telephone encounter Ashley Martinez Mildred thomas APPLICATION SUPPORT INTERN - CHIEF CATALYST OPERATOR Work Phone: [facility] [place] Comment on above: Orders Start: 10-30-2022 End: 10-30-2022 Initial preventive medicine new patient 40-64yrs Ashley Martinez Jason APPLICATION SUPPORT INTERN - CHIEF CATALYST OPERATOR Work Phone: [facility] [place] Comment on above: Well adult exam ([facility] dewayne Dx); Encounter to establish care; Mild intermittent asthma without complication; Primary hypertension; Osteoarthritis of both knees, unspecified osteoarthritis type; Gastroesophageal reflux disease, unspecified whether esophagitis present; Irritable bowel syndrome with diarrhea; Vitamin D deficiency; Class 1 obesity due to excess calories without serious comorbidity with body mass index (BMI) of 33.0 to 33.9 in adult; Depressive disorder; Anxiety; Right calf pain; Need for Tdap vaccination; Screening for lipoid disorders; Screening for diabetes mellitus Start: 10-30-2022 End: 10-30-2022 Patient encounter status Ashley Martinez Jason APPLICATION SUPPORT INTERN - CHIEF CATALYST OPERATOR Work Phone: [facility] Work Phone: Start: 09-16-2022 End: 09-16-[address] Geeta Hickman Work Phone: [facility] Work Phone: Start: 09-16-2022 End: 09-16-[address] Geeta Hickman Work Phone: [facility] Ultrasound Start: 08-21-2022 End: 08-21-[address] Geeta Hickman Work Phone: [facility] Work Phone: Start: 08-21-2022 End: 08-21-[address] Geeta Hickman Work Phone: [facility] Ul[facility]ound Start: 08-20-2022 End: 08-20-[address] Geeta Hickman Work Phone: [facility] Start: 07-17-2022 End: 07-17-[address] Geeta Hickman Work Phone: [facility] Start: 07-13-2022 End: 07-13-[address] Geeta Hickman Work Phone: [facility] Work Phone: Start: 07-13-2022 End: 07-13-[address] Geeta Hickman Work Phone: [facility] Services/Neurology Start: 07-10-2022 End: 07-10-[address] Geeta Hickman Work Phone: [facility] Start: 07-08-2022 End: 07-08-[address] Geeta Hickman Work Phone: [facility] Work Phone: Start: 07-08-2022 End: 07-08-[address] [facility] Start: 07-08-2022 End: 07-08-[address] Geeta Hickman Work Phone: [facility] Start: 06-24-2022 End: 06-24-[address] Geeta Hickman Work Phone: [facility] Start: 06-15-2022 End: 06-16-2022 Emergency department patient visit Dr. Geeta Hickman Work Phone: [facility]Emergency Department Start: 06-15-2022 Telephone encounter Nadia Bolanos PA-C Work Phone: [facility] Comment on above: Results Start: 06-15-2022 End: 06-15-2022 Subsequent hospital visit by physician [facility] Work Phone: Radiology Comment on above: Right leg pain [M79. 604] Start: 06-15-2022 End: 06-15-[address] Geeta Hickman Work Phone: [facility] Work Phone: Start: 06-15-2022 End: 06-15-[address] [facility]ick[facility] Start: 06-15-2022 End: 06-15-2022 Subsequent hospital visit by physician [facility] Work Phone: Radiology Comment on above: Acute cough [R05.1] Start: 06-15-2022 End: 06-15-2022 Office outpatient visit 25 minutes Nadia Bolanos PA-C Work Phone: [facility] Comment on above: Acute cough (Primary Dx); SOB (shortness of breath); Right leg pain Start: 06-09-2022 End: 06-09-[address] Geeta Hickman Work Phone: [facility] Work Phone: Start: 06-09-2022 End: 06-09-[address] Geeta Hickman Work Phone: [facility] Start: 06-09-2022 End: 06-09-[address] Geeta Hickman Work Phone: [facility] Start: 06-03-2022 End: 06-03-[address] Geeta Hickman Work Phone: [facility] Work Phone: Start: 06-03-2022 End: 06-03-[address] Ge[facility] Hickman Work Phone: [facility] [facility] Start: 06-03-2022 End: 06-03-[address] Geeta Hickman Work Phone: [facility] Start: 05-22-2022 Refill Sada Sanchez Work Phone: Gastroenterology Comment on above: Refill Request Start: 05-20-2022 End: 05-20-[address] Geeta Hickman Work Phone: [facility] Work Phone: Start: 05-20-2022 End: 05-20-[address] Geeta Hickman Work Phone: [facility] Start: 05-05-2022 End: 05-05-[address] [facility] Start: 04-29-2022 End: 04-29-[address] Geeta Hickman Work Phone: [facility] Work Phone: Start: 04-29-2022 End: 04-29-[address] Geeta Hickman Work Phone: [facility] Start: 04-09-2022 End: 04-09-[address] Geeta Hickman Work Phone: [facility] Work Phone: Start: 04-09-2022 End: 04-09-[address] Geeta Hickman Work Phone: [facility] Start: 04-03-2022 Telephone encounter Sada olivier MD Work Phone: Gastroenterology Comment on above: Results (pH impedanc e) Start: 04-03-2022 End: 04-03-[address] Geeta Hickman Work Phone: [facility] Work Phone: Start: 04-03-2022 End: 04-03-[address] Geeta Hickman Work Phone: [facility] Start: 04-03-2022 Non-patient / Non-visit Dr. Miranda Work Phone: [facility] Start: 04-01-2022 End: 04-01-[address] Geeta Hickman Work Phone: [facility] Start: 04-01-2022 End: 04-01-2022 Nursing evaluation of patient and report Nurse [facility] Work Phone: Gastroenterology Comment on above: Abdominal pain, unsp ecified abdominal location (Primary Dx) Start: 03-19-2022 End: 03-19-2022 Nursing evaluation of patient and report Nurse [facility] Work Phone: Gastroenterology Comment on above: Abdominal pain, unsp ecified abdominal location Start: 03-17-2022 Telephone encounter Nurse Tomasz Ba[facility] Work Phone: [facility] Comment on above: Patient Question; Pa tient Update Start: 03-11-2022 End: 03-11-2022 Nursing evaluation of patient and report Nurse Tomasz Baumann [facility] Work Phone: [facility] Comment on above: Bloating Start: 03-05-2022 End: 03-05-2022 ambulatory Mickey Andres MD Work Phone: Gastroenterology Comment on above: Gas Start: 03-05-2022 End: 03-05-2022 Patient encounter procedure Mickey Andres MD Work Phone: [facility] Start: 03-04-2022 End: 03-04-2022 Nursing evaluation of patient and report Nurse Tomasz [facility] Work Phone: [facility] Comment on above: Bloating Start: 02-19-2022 End: 02-19-2022 Emergency department patient visit Dr. Ashok Siu Work Phone: [facility] Start: 02-11-2022 Refill Sada Sanchez Work Phone: Gastroenterology Comment on above: Refill Request Start: 01-14-2022 End: 01-14-2022 ambulatory Sada Snyder MD Work Phone: [facility] Start: 01-14-2022 Patient encounter procedure Sada Snyder MD Work Phone: Gastroenterology Comment on above: Referral Start: 01-14-2022 End: 01-14-[address] Ashok Siu Work Phone: [facility] Start: 01-07-2022 End: 01-07-[address] Ashok Siu Work Phone: [facility] Work Phone: Start: 01-07-2022 End: 01-07-[address] Ashok Siu Work Phone: [facility] Start: 01-05-2022 End: 01-05-2022 Patient encounter procedure Ashley Owens CHIEF CATALYST OPERATOR Work Phone: [facility] Comment on above: Burning with urinati on (Primary Dx) Start: 01-02-2022 End: 01-02-[address] Ashok Sui Work Phone: [facility] Start: 12-31-[address] Ashok Siu Work Phone: [facility] Start: 12-24-2021 End: 12-24-[address] Ashok Siu Work Phone: [facility] Start: 12-16-2021 End: 12-16-[address] Ashok Siu Work Phone: [facility] Start: 12-10-2021 End: 12-10-[address] Ashok Siu Work Phone: [facility] Start: 11-05-2021 End: 11-05-[address] Ashok Siu Work Phone: [facility] Start: 10-31-2021 End: 10-31-[address] Ashok Siu Work Phone: [facility] Start: 10-29-2021 End: 10-29-[address] Ashok Siu Work Phone: [facility] Start: 10-01-2021 Refill Sada Sanchez Work Phone: Gastroenterology Comment on above: Refill Request Start: 09-07-2021 End: 09-07-[address] Ashok Siu Work Phone: [facility] Start: 07-21-2021 End: 07-21-2021 [facility] Start: 07-10-2021 End: 07-10-2021 Patient encounter procedure [facility], Vamsi Orozco Start: 05-02-2021 End: 05-02-2021 Patient encounter procedure [facility] Start: 04-28-2021 End: 04-28-2021 Patient encounter procedure [facility] Start: 02-05-2020 End: 02-05-2020 Subsequent hospital visit by physician Xr [facility] Work Phone: Radiology Comment on above: Cough [R05] Start: 12-04-2009 Patient encounter status Yoshi Snyder MD Work Phone: [facility] Work Phone: Procedures Date Procedure Procedure Detail Performing Clinician Start: 05-17-2024 Lipid 1996 panel - S mansi or Plasma Ashley Gomez APPLICATION SUPPORT INTERN - CHIEF CATALYST OPERATOR Work Phone: Start: 05-03-2024 Mammography Ashley martinez APPLICATION SUPPORT INTERN - CHIEF CATALYST OPERATOR Work Phone: Start: 11-10-2023 Kidney img morpholog y vascular flow multiple Christa Wong APPLICATION SUPPORT INTERN - CHIEF CATALYST OPERATOR Work Phone: Start: 11-10-2023 Lipid 1996 panel - S mansi or Plasma Christa Wong APPLICATION SUPPORT INTERN - CHIEF CATALYST OPERATOR Work Phone: Start: 10-18-2023 Ct abdomen & pelvis w/o contrast material Cachorro A Douglas DO Work Phone: Start: 10-18-2023 Urinalysis complete panel - Urine Cachorro A Douglas DO Work Phone: Start: 10-18-2023 Urnls dip stick/tabl et reagent auto microscopy Cachorro A Douglas DO Work Phone: Start: 10-18-2023 Comprehensive metabo lic panel Cachorro A Douglas DO Work Phone: Start: 07-14-[address] Giuliano Hickman Work Phone: Start: 07-08-2023 Urnls dip stick/tabl et reagent auto microscopy Bulk Order Provider Start: 07-05-2023 Fluoroscopic guidance Daniel Hickman Work Phone: Start: 07-05-2023 Cysto,Biopsy,Fulgura tion,Bl adder Tumor (Not Applicable) Dr. Geeta Hickman Work Phone: Start: 07-04-2023 CT of abdomen and pe lvis without contrast Dr. Getea Hickman Work Phone: Start: 06-10-2023 Cysto,Biopsy,Fulgura tion,Bl adder Tumor (Not Applicable) Dr. Geeta Hickman Work Phone: Start: 05-05-2023 Clostridium difficil e detection Dr. Geeta Hickman Work Phone: Start: 05-05-2023 Giardia Antigen (WILTON) Daniel Hickman Work Phone: Start: 05-05-[address] Geeta Hickman Work Phone: Start: 05-05-2023 Measurement of occul t blood in stool specimen using immunoassay Dr. Geeta Hickman Work Phone: Start: 05-05-[address] Geeta Hickman Work Phone: Start: 05-05-2023 Ova OR parasites identification Dr. Geeta Hickman Work Phone: Start: 05-04-2023 Mammography Ashley Rachelle s APPLICATION SUPPORT INTERN - CHIEF CATALYST OPERATOR Work Phone: Start: 04-30-2023 Screening mammography Daniel Hickman Work Phone: Start: 04-21-2023 Computed tomography of abdomen and pelvis with intravenous contrast Start: 11-20-2022 Gastric emptying bipin ging study Tanna Peer39 Work Phone: Start: 11-11-2022 HOUSE ACCOUNT TRACKI NG (QUEST) Tanna Peer39 Work Phone: Start: 10-30-2022 Lipid 1996 panel - S mansi or Plasma Tanna Friend Work Phone: Start: 09-16-[address] Kinsey Hickman Work Phone: Start: 09-16-[address] Geeta Hickman Work Phone: Start: 07-16-2022 HM PAP SMEAR Historical Provider Work Phone: Start: 07-16-2022 Microscopic observat ion [Identifier] in Cervix by Cyto stain Ashley Jason APPLICATION SUPPORT INTERN - CHIEF CATALYST OPERATOR Work Phone: Start: 07-13-2022 Bordatella pertussis DNA (MARELY) Dr. Geeta Hickman Work Phone: Start: 06-15-2022 Plain chest X-ray Dr. Kinsey Hickman Work Phone: Start: 06-15-2022 SARS-CoV-2 & FLU Ant igen (Rapid) Dr. Geeta Hickman Work Phone: Start: 06-15-2022 Dup-scan xtr veins unilateral/limited study Nadia Bolanos PA-C Work Phone: Start: 06-15-2022 Radiologic exam ches t 2 views Nadia Bolanos PA-C Work Phone: Start: 06-09-[address] Kinsey Hickman Work Phone: Start: 04-29-2022 End: 04-29-[address] Geeta Hickman Work Phone: Start: 03-12-2022 Breath hydrogen/meth ane test Sada Snyder MD Work Phone: Start: 03-04-2022 Breath hydrogen/meth ane test Sada Snyder MD Work Phone: Start: 01-07-2022 CT of abdomen and pe lvis without contrast Dr. Ashok Siu Work Phone: Start: 01-05-2022 Urnls dip stick/tabl et rgnt auto w/o microscopy Lee Rios APPLICATION SUPPORT INTERN.CHIEF CATALYST OPERATOR Work Phone: Start: 12-16-2021 MRI of brain without contrast Dr. Ashok Siu Work Phone: Start: 11-05-2021 Radiologic examinati on of knee Dr. Ashok Siu Work Phone: Start: 07-21-2021 Radiography of esophagus Start: 04-28-2021 Screening mammography Start: 11-07-2020 COLONOSCOPY Historic oswaldo Nixon MD Work Phone: Start: 11-07-2020 Colonoscopy Ashley Owens APPLICATION SUPPORT INTERN.CHIEF CATALYST OPERATOR Work Phone: Start: 02-05-2020 Radiologic exam ches t 2 views Analilia Ribeiro APPLICATION SUPPORT INTERN.CHIEF CATALYST OPERATOR Work Phone: Start: 02-23-2014 Lipid 1996 panel - S mansi or Plasma Us 2 Work Phone: Cytopathology proced ure, preparation of smear, genital source Dr. Geeta Hickman Work Phone: Investigation of transfusion reaction Dr. Geeta Hickman Work Phone: Urine culture Dr. Geeta terry Work Phone: Plan of Treatment Date Care Activity Detail Author Start: 12-28-2051 RSV Immunization for Adults (1 - 1-dose 75+ series) RSV Immunization for Adults (1 - 1-dose 75+ series) [facility] Start: 2036 RSV Immunization aged 60 or older (1 - 1-dose 60+ series) RSV Immunization aged 60 or older (1 - 1-dose 60+ series) [facility] Start: 10-30-2032 DTaP/Tdap/Td Vaccines (2 - Td or Tdap) DTaP/Tdap/Td Vaccines (2 - Td or Tdap) [facility] Start: 10-30-2032 Urine microalbumin profile DTaP,Tdap,Td Vaccine (3 - Td or Tdap) [facility] Start: 11-07-2030 Screening for malignant neoplasm of colon [facility] Start: 05-17-2029 Lipid panel Lipid Panel [facility] Start: 11-09-2028 Lipid panel [facility] Start: 07-13-2028 Screening for malignant neoplasm of cervix [facility] Start: 10-31-2027 Lipid panel [facility] Start: 2026 Zoster Vaccines (1 of 2) Zoster Vaccines (1 of 2) [facility] Start: 12-21-2026 Diabetes Screening Diabetes Screening [facility] Start: 04-28-2026 Diabetes mellitus screening Diabetes Screening [facility] Start: 04-28-2026 Diabetes Screening Diabetes Screening [facility] Start: 11-11-2025 Diabetes mellitus screening Diabetes Screening [facility] Start: 11-07-2025 Screening for malignant neoplasm of colon [facility] Start: 07-16-2025 Screening for malignant neoplasm of cervix [facility] Start: 05-03-2025 Screening for malignant neoplasm of breast Mammogram [facility] Start: 11-15-2024 End: 11-15-2024 Patient encounter procedure 11/15/2024 9:40 AM EDT Office Visit [facility] [address] [place] [facility] [place] [address] Ashley Gomez, APPLICATION SUPPORT INTERN - CHIEF CATALYST OPERATOR [address] [place] [facility] [place] [address] [facility] Start: 11-14-2024 Depression Monitoring Depression Monitoring [facility] Start: 08-18-2024 End: 08-18-2024 Telemedicine consultation with patient 08/18/2024 1:20 PM EDT Telemedicine [facility] [address] [place] [place] [address] Ashley Gomez, APPLICATION SUPPORT INTERN - CHIEF CATALYST OPERATOR [address] [place] [facility] [place] [address] [facility] Start: 05-17-2024 End: 05-16-2025 25-hydroxyvitamin D3 [Mass/volume] in Serum or Plasma Vitamin D Deficiency Screening (Vit D 25) Lab Routine Vitamin D deficiency Expected: 05/17/2024 (Approximate), Expires: 05/16/2025 [facility] Comment on above: Expected: 05/17/2024 (Approximate), Expi res: 05/16/2025 Start: 05-17-2024 End: 05-16-2025 Comprehensive metabolic 1998 panel - Serum or Plasma Comprehensive metabolic panel Lab Routine Vitamin D deficiency Primary hypertension Osteoarthritis of both knees, unspecified osteoarthritis type Inflammatory polyarthropathy (HCC) Class 2 obesity due to excess calories without serious comorbidity with body mass index (BMI) of 37.0 to 37.9 in adult Irritable bowel syndrome with both constipation and diarrhea Gastroesophageal reflux disease, unspecified whether esophagitis present Mild intermittent asthma without complication Depressive disorder Anxiety Elevated LDL cholesterol level Expected: 05/17/2024 (Approximate), Expires: 05/16/2025 [facility] Comment on above: Expected: 05/17/2024 (Approximate), Expi res: 05/16/2025 Start: 05-17-2024 End: 05-16-2025 Lipid 1996 panel - Serum or Plasma Lipid panel Lab Routine Elevated LDL cholesterol level Expected: 05/17/2024 (Approximate), Expires: 05/16/2025 [facility] Work Phone: Comment on above: Expected: 05/17/2024 (Approximate), Expi res: 05/16/2025 Start: 05-17-2024 End: 05-17-2024 Patient encounter procedure [facility] Start: 05-12-2024 Depression Monitoring Depression Monitoring [facility] Start: 05-04-2024 Screening for malignant neoplasm of breast Mammogram [facility] Start: 04-28-2024 COVID-19 Vaccine ( season) COVID-19 Vaccine () [facility] Comment on above: Postponed from 11/27/2022 (Patient Refus ed) Start: 04-28-2024 Diabetes mellitus screening Diabetes Screening [facility] Start: 03-15-2024 Depression Monitoring Depression Monitoring [facility] Start: 02-26-2024 Depression Monitoring Depression Monitoring [facility] Start: 02-25-2024 End: 02-25-2024 Telemedicine consultation with patient 02/25/2024 9:40 AM EST Telemedicine [facility] [address] [place] [address] Yony Gomezy S, APPLICATION SUPPORT INTERN - CHIEF CATALYST OPERATOR [address] [place] [address] [facility] Start: 02-12-2024 Depression Monitoring Depression Monitoring [facility] Start: 12-22-2023 End: 12-22-2023 Patient encounter procedure 12/22/2023 9:00 AM EDT Office Visit Rheumatology [address] [address] Fallon Rivas MD [address] [place], [place] [id number] Acute perichondritis of pinna, right [H61.011] Rheumatology Comment on above: Acute perichondritis of pinna, right [H6 1.011] Start: 12-19-2023 Depression Monitoring Depression Monitoring [facility] Start: 12-19-2023 Depresssion Monitoring Depresssion Monitoring [facility] Start: 11-28-2023 Covid-19 Vaccine ( season) Covid-19 Vaccine ( season) [facility] Start: 11-28-2023 Influenza vaccination Influenza Vaccine (#1) [facility] Start: 11-10-2023 End: 11-09-2024 25-hydroxyvitamin D3 [Mass/volume] in Serum or Plasma Vitamin D Deficiency Screening (Vit D 25) Lab Routine Vitamin D deficiency Expected: 11/10/2023 (Approximate), Expires: 11/09/2024 [facility] Comment on above: Expected: 11/10/2023 (Approximate), Expi res: 11/09/2024 Start: 11-10-2023 End: 11-09-2024 Comprehensive metabolic 1998 panel - Serum or Plasma Comprehensive metabolic panel Lab Routine Vitamin D deficiency Primary hypertension Osteoarthritis of both knees, unspecified osteoarthritis type Class 2 obesity due to excess calories without serious comorbidity with body mass index (BMI) of 36.0 to 36.9 in adult Irritable bowel syndrome, unspecified type Gastroesophageal reflux disease, unspecified whether esophagitis present Mild intermittent asthma without complication Depressive disorder Anxiety Left flank pain Left lower quadrant abdominal pain Screening for diabetes mellitus Expected: 11/10/2023 (Approximate), Expires: 11/09/2024 [facility] Comment on above: Expected: 11/10/2023 (Approximate), Expi res: 11/09/2024 Start: 11-10-2023 End: 11-09-2024 Lipid 1996 panel - Serum or Plasma Lipid panel Lab Routine Screening for lipoid disorders Expected: 11/10/2023 (Approximate), Expires: 11/09/2024 [facility] Work Phone: Comment on above: Expected: 11/10/2023 (Approximate), Expi res: 11/09/2024 Start: 11-10-2023 End: 11-10-2023 Patient encounter procedure 11/10/2023 9:00 AM EDT Office Visit [facility] [address] [place] [phone] Cornell Holden MD [address] [place] [address] [facility] Start: 11-08-2023 End: 11-08-2023 Patient encounter procedure 11/08/2023 12:30 PM EDT Appointment [facility] [address] [place] [phone] Christa Wong APPLICATION SUPPORT INTERN - CHIEF CATALYST OPERATOR [address] [place] [phone] [facility] Start: 11-03-2023 End: 11-03-2023 Patient encounter procedure 11/03/2023 9:20 AM EDT Office Visit [facility] [address] [place] [address] [place] [address] Ashley Gomez, APPLICATION SUPPORT INTERN - CHIEF CATALYST OPERATOR [address] [facility] [place] [address] [facility] Start: 10-27-2023 Depresssion Monitoring Depresssion Monitoring [facility] Start: 10-27-2023 End: 10-26-2024 NM kidney flow/function w/wo lasix NM kidney flow/function w/wo lasix Imaging Routine Gross hematuria Left lower quadrant abdominal pain Other hydronephrosis Expected: 10/27/2023, Expires: 10/26/2024 [facility] Comment on above: Expected: 10/27/2023, Expires: Start: 10-17-2023 DIABETES SCREEN DIABETES SCREEN [facility] Start: 10-17-2023 Diabetes Screening Diabetes Screening [facility] Start: 10-15-2023 End: 10-29-2023 Bacteria identified in Urine by Culture Urine culture Microbiology Routine Gross hematuria Left lower quadrant abdominal pain Expected: 10/15/2023 (Approximate), Expires: 10/29/2023 [facility] Comment on above: Expected: 10/15/2023 (Approximate), Expi res: 10/29/2023 Start: 10-15-2023 End: 04-16-2024 NM Renal Function Mag 3 with Lasix NM Renal Function Mag 3 with Lasix Procedure Routine Gross hematuria Left lower quadrant abdominal pain Other hydronephrosis Expected: 10/15/2023 (Approximate), Expires: 04/16/2024 [facility] Comment on above: Expected: 10/15/2023 (Approximate), Expi res: 04/16/2024 Start: 10-15-2023 End: 12-16-2023 US Retroperitoneum US retroperitoneum Imaging Routine Gross hematuria Left lower quadrant abdominal pain Expected: 10/15/2023, Expires: 12/16/2023 [facility] Work Phone: Comment on above: Expected: 10/15/2023, Expires: Start: 09-15-2023 End: 09-15-2023 Telemedicine consultation with patient 09/15/2023 11:00 AM EDT Telemedicine [facility] [address] [place] [address] [place] [address] Ashley Gomez, APPLICATION SUPPORT INTERN - CHIEF CATALYST OPERATOR [address] [place] [address] [place] [address] [facility] Start: 08-27-2023 End: 08-27-2023 Telemedicine consultation with patient 08/27/2023 9:40 AM EDT Telemedicine [facility] Medicine [address] [place] [address] [place] [address] Ashley Gomez, APPLICATION SUPPORT INTERN - CHIEF CATALYST OPERATOR [address] [place] [address] [place] [address] [facility] Start: 08-13-2023 End: 08-13-2023 Telemedicine consultation with patient 08/13/2023 1:20 PM EDT Telemedicine [facility] Medicine [address] [place] [address] [place] [address] Ashley Gomez, APPLICATION SUPPORT INTERN - CHIEF CATALYST OPERATOR [address] [place] [address] [facility] Start: 07-21-2023 End: 07-21-2023 Patient encounter procedure 07/21/2023 9:40 AM EDT Office Visit [facility] [address] [place] [address] [place] [address] Ashley Gomez, APPLICATION SUPPORT INTERN - CHIEF CATALYST OPERATOR [address] [place] [address] [facility] Start: 07-08-2023 End: 10-07-2023 CYTOLOGY NON-LOTTERY OFFICE MANAGER CYTOLOGY NON-LOTTERY OFFICE MANAGER Lab Routine Gross hematuria Expected: 07/08/2023 (Approximate), Expires: 10/07/2023 [facility] Work Phone: Comment on above: Expected: 07/08/2023 (Approximate), Expi res: 10/07/2023 Start: 07-05-2023 Cysto w/insert ureteral stent CYSTOSCOPY AND TREATMENT [facility] Start: 07-05-2023 Patient discharge [facility] Start: 07-05-2023 Admission procedure [facility] Start: 07-04-2023 Application of intermittent pneumatic compression device [facility] Start: 07-04-2023 [facility] Start: 07-04-2023 Following clinical pathway protocol [facility] Start: 07-04-2023 Blood chemistry [facility] Start: 07-04-2023 Hospital admission, emergency, from emergency room, medical nature [facility] Start: 06-10-2023 Anes transurethral w/urethrocystoscopy nos ANESTH BLADDER SURGERY [facility] Start: 06-10-2023 Cysto w/destruction of lesions CYSTOSCOPY AND TREATMENT [facility] Start: 06-10-2023 Cystourethroscopy with biopsy CYSTOSCOPY W/BIOPSY(S) [facility] Start: 06-10-2023 Patient discharge [facility] Start: 06-02-2023 End: 06-02-2023 Patient encounter procedure 06/02/2023 10:40 AM EST Office Visit [facility] [address] [place], [place] [id number] Ashley Gomez, APPLICATION SUPPORT INTERN - CHIEF CATALYST OPERATOR [address] [place], [place] [id number] [facility] Start: 05-05-2023 Elastase.pancreatic [Presence] in Stool [facility] Start: 05-05-2023 Fat [Presence] in Stool [facility] Start: 05-05-2023 Protein measurement [facility] Start: 05-05-2023 [facility] Start: 05-05-2023 Immunoglobulin measurement [facility] Start: 05-05-2023 [facility] Start: 05-05-2023 End: 05-05-2023 Patient encounter procedure [facility] Start: 05-01-2023 Depresssion Monitoring Depresssion Monitoring [facility] Start: 04-29-2023 Screening for malignant neoplasm of breast Mammogram [facility] Start: 04-28-2023 End: 04-28-2024 Hemoglobin A1c measurement Hemoglobin A1c Lab Routine Elevated glucose level Expected: 04/28/2023 (Approximate), Expires: 04/28/2024 [facility] Work Phone: Comment on above: Expected: 04/28/2023 (Approximate), Expi res: 04/28/2024 Start: 04-28-2023 End: 04-28-2024 Hepatitis C virus Ab [Presence] in Serum or Plasma by Immunoassay Hepatitis C antibody Lab Routine Need for hepatitis C screening test Expected: 04/28/2023 (Approximate), Expires: 04/28/2024 [facility] Comment on above: Expected: 04/28/2023 (Approximate), Expi res: 04/28/2024 Start: 04-28-2023 End: 04-28-2024 HIV 1+2 Ab+HIV1 p24 Ag [Presence] in Serum or Plasma by Immunoassay HIV-1 and HIV-2 Antigen-Antibody Screen Lab Routine Encounter for screening for HIV Expected: 04/28/2023 (Approximate), Expires: 04/28/2024 [facility] Comment on above: Expected: 04/28/2023 (Approximate), Expi res: 04/28/2024 Start: 04-28-2023 End: 04-28-2024 Thyrotropin [Units/volume] in Serum or Plasma TSH Lab Routine Nausea Weight gain Elevated glucose level Expected: 04/28/2023 (Approximate), Expires: 04/28/2024 [facility] Comment on above: Expected: 04/28/2023 (Approximate), Expi res: 04/28/2024 Start: 04-28-2023 End: 04-28-2024 US Pelvis transvaginal US pelvis transvaginal Imaging Routine Right lower quadrant abdominal pain Nausea Expected: 04/28/2023, Expires: 04/28/2024 [facility] Comment on above: Expected: 04/28/2023, Expires: Start: 04-21-2023 [facility] Start: 12-16-2022 End: 12-17-2023 XR Knee - left 4 Views [facility] Syst em Work Phone: Comment on above: Expected: 12/16/2022, Expires: 4 Once for 1 Occurrenc es starting 12/16/2022 until 12/16/2022 Start: 11-27-2022 Covid-19 Vaccine () Covid-19 Vaccine () [facility] Start: 11-27-2022 Influenza vaccination [facility] Start: 11-20-2022 End: 11-20-2022 Patient encounter procedure 11/20/2022 8:00 AM EDT Appointment [facility] [address] [place] [address] [address], [address] [place] [address] [facility] Start: 10-30-2022 End: 10-31-2023 25-hydroxyvitamin D3 [Mass/volume] in Serum or Plasma Vitamin D Deficiency Screening (Vit D 25) Lab Routine Vitamin D deficiency Expected: 10/30/2022 (Approximate), Expires: 10/31/2023 [facility] Comment on above: Expected: 10/30/2022 (Approximate), Expi res: 10/31/2023 Start: 10-30-2022 End: 10-30-2023 CBC panel - Blood by Automated count CBC Lab Routine Primary hypertension Irritable bowel syndrome with diarrhea Gastroesophageal reflux disease, unspecified whether esophagitis present Vitamin D deficiency Class 1 obesity due to excess calories without serious comorbidity with body mass index (BMI) of 33.0 to 33.9 in adult Depressive disorder Anxiety Right calf pain Mild intermittent asthma without complication Osteoarthritis of both knees, unspecified osteoarthritis type Expected: 10/30/2022 (Approximate), Expires: 10/30/2023 [facility] System Work Phone: Comment on above: Expected: 10/30/2022 (Approximate), Expi res: 10/30/2023 Start: 10-30-2022 End: 10-30-2023 Comprehensive metabolic 1998 panel - Serum or Plasma Comprehensive metabolic panel Lab Routine Primary hypertension Screening for diabetes mellitus Right calf pain Mild intermittent asthma without complication Osteoarthritis of both knees, unspecified osteoarthritis type Gastroesophageal reflux disease, unspecified whether esophagitis present Irritable bowel syndrome with diarrhea Vitamin D deficiency Class 1 obesity due to excess calories without serious comorbidity with body mass index (BMI) of 33.0 to 33.9 in adult Depressive disorder Anxiety Expected: 10/30/2022 (Approximate), Expires: 10/30/2023 [facility] Comment on above: Expected: 10/30/2022 (Approximate), Expi res: 10/30/2023 Start: 10-30-2022 End: 10-30-2023 Lipid 1996 panel - Serum or Plasma Lipid panel Lab Routine Screening for lipoid disorders Expected: 10/30/2022 (Approximate), Expires: 10/30/2023 [facility] Comment on above: Expected: 10/30/2022 (Approximate), Expi res: 10/30/2023 Start: 10-30-2022 End: 10-31-2023 Thyrotropin [Units/volume] in Serum or Plasma TSH Lab Routine Class 1 obesity due to excess calories without serious comorbidity with body mass index (BMI) of 33.0 to 33.9 in adult Depressive disorder Anxiety Expected: 10/30/2022 (Approximate), Expires: 10/31/2023 [facility] Comment on above: Expected: 10/30/2022 (Approximate), Expi res: 10/31/2023 Start: 07-10-2022 Bordetella pertussis IgA and IgG and IgM panel [Units/volume] - Serum by Immunoassay [facility] Start: 07-08-2022 Liquid based cervical cytology screening [facility] Start: 06-15-2022 Fibrin dgradj products d-dimer quantitative FIBRIN DEGRADATION QUANT [facility] Start: 02-19-2022 Simple repair scalp/neck/ax/genit/trunk 2.5cm/< RPR S/N/AX/GEN/TRNK 2.5CM/< [facility] Start: 2021 COLOGUARD (FIT-DNA) COLOGUARD (FIT-DNA) [facility] Start: 2021 Colonoscopy COLONOSCOPY [facility] Start: 2021 COLORECTAL CANCER SCREENING COLORECTAL CANCER SCREENING [facility] Start: [address] COLONOGRAPHY [facility] Start: 2021 FECAL OCCULT BLOOD FECAL OCCULT BLOOD [facility] Start: 2021 Lipid 1996 panel - Serum or Plasma Lipid Screening [facility] Start: 2021 LIPID SCREEN LIPID SCREEN [facility] Start: 2021 Screening for malignant neoplasm of colon [facility] Start: 2021 SIGMOIDOSCOPY SIGMOIDOSCOPY [facility] Start: 11-27-2021 Influenza vaccination INFLUENZA (#1) [facility] Start: 10-29-2021 Patient referral [facility] Work Phone: Start: 04-29-2021 Urine microalbumin profile [facility] Start: 04-08-2021 COVID-19 VACCINE (4 - Booster for Moderna series) COVID-19 VACCINE (4 - Booster for Moderna series) [facility] Start: 04-08-2021 COVID-19 VACCINE (4 - Moderna series) COVID-19 VACCINE (4 - Moderna series) [facility] Start: 10-05-2019 PAP TESTING PAP TESTING [facility] Start: 10-05-2019 Screening for malignant neoplasm of cervix Pap Testing [facility] Start: 10-04-2017 Screening for malignant neoplasm of cervix Cervical Cancer Screening [facility] Start: 2016 Mammography [facility] Start: 2016 Screening for malignant neoplasm of breast Mammogram Screening [facility] Start: 2006 HPV TESTING HPV TESTING [facility] Start: 2006 Screening for malignant neoplasm of cervix [facility] Start: 1994 Diabetes mellitus screening Diabetes Screening [facility] Start: 1994 HEPATITIS C SCREENING HEPATITIS C SCREENING [facility] Start: 1994 Hepatitis C screening Hepatitis C Screening [facility] Start: 1994 HIV SCREENING HIV SCREENING [facility] Start: 1994 HIV screening HIV Screening [facility] Start: 1982 Pneumococcal Vaccine: Pediatrics (0 to 5 Years) and At-Risk Patients (6 to 64 Years) (1 of 2 - PCV) Pneumococcal Vaccine: Pediatrics (0 to 5 Years) and At-Risk Patients (6 to 64 Years) (1 of 2 - PCV) [facility] Start: 1976 HEPATITIS B (1 of 3 - 3-dose series) HEPATITIS B (1 of 3 - 3-dose series) [facility] Start: 1976 HIV screening HIV Screening [facility] Start: 1976 Lipid panel Lipid Panel [facility] Start: 1976 Screening for malignant neoplasm of colon [facility] Anion gap measurement [facility] Bacteria identified in Urine by Culture URINE CULTURE Microbiology Routine Burning with urination Ordered: 01/05/2022 [facility] Work Phone: Comment on above: Ordered: 01/05/2022 Bordetella pertussis IgA Ab [Units/volume] in Serum [facility] Bordetella pertussis IgG Ab [Units/volume] in Serum [facility] Bordetella pertussis IgM Ab [Units/volume] in Serum [facility] BREATH TEST GLUCOSE BREATH TEST GLUCOSE Endoscopy Routine Bloating 03/12/2022 8:48 AM EST [facility] Work Phone: BREATH TEST LACTOSE BREATH TEST LACTOSE Endoscopy Routine Bloating 03/04/2022 2:49 PM EST [facility] Work Phone: BUN/Creatinine ratio [facility] Calcium [Mass/volume ] in Serum or Plasma [facility] Carbon dioxide, tota l [Moles/volume] in Serum or Plasma [facility] Chloride [Moles/volu me] in Serum or Plasma [facility] Clostridioides diffi cile DNA [Presence] in Unspecified specimen by MARELY with probe detection [facility] Creatinine [Moles/vo lume] in Serum or Plasma [facility] End: 08-06-2024 CT Kidney WO and W contrast IV CT UROGRAM WO/W IVCON Radiology Routine Gross hematuria 1 Occurrences starting 07/08/2023 until 08/06/2024 [facility] Work Phone: Comment on above: 1 Occurrences starting 07/08/2023 until 08/06/2024 CT Kidney WO and W contrast IV CT UROGRAM WO/W IVCON Radiology Routine Gross hematuria 07/09/2023 2:21 PM EDT [facility] Work Phone: Elastase.pancreatic [Presence] in Stool [facility] Fat [Mass/mass] in Stool [facility] Fat [Presence] in Stool [facility] Fat.neutral [Presenc e] in Stool [facility] Gastrointestinal pathogens panel - Stool by MARELY with probe detection [facility] Giardia lamblia anti gen assay [facility] Glucose [Mass/volume ] in Serum or Plasma [facility] IgA [Mass/volume] in Serum or Plasma [facility] IgE [Units/volume] i n Serum or Plasma [facility] IgG [Mass/volume] in Serum or Plasma [facility] IgM [Mass/volume] in Serum or Plasma [facility] Lactoferrin [Presenc e] in Stool by Immunoassay [facility] Measurement of occul t blood in stool specimen using immunoassay [facility] Measurement of renal function [facility] MG Breast - bilatera l Screening [facility] Ova and parasites identified in Unspecified specimen by Light microscopy [facility] Path report.final Dx Spec [facility] Patient Education [facility] Work Phone: Patient referral [facility] Work Phone: Potassium [Moles/vol ume] in Serum or Plasma [facility] Protein measurement [facility] Sodium [Moles/volume ] in Serum or Plasma [facility] Urea nitrogen [Mass/volume] in Serum or Plasma [facility] Immunizations Immunization Date Immunization Notes Care Provider [facility] 12-31-2023 influenza virus vaccine, unspecified formulation Ashley Gomez APPLICATION SUPPORT INTERN - CHIEF CATALYST OPERATOR Work Phone: [facility] 11-10-2023 Pneumococcal Conjuga te PCV20, Pf (Prevnar 20) Ashley Gomez APPLICATION SUPPORT INTERN - CHIEF CATALYST OPERATOR Work Phone: [facility] 12-16-2022 influenza, injectabl e, quadrivalent, preservative free Fallon Pop MD Work Phone: [facility] 12-16-2022 Seasonal, quadrivale nt, recombinant, injectable influenza vaccine, preservative free Ashley Gomez APPLICATION SUPPORT INTERN - CHIEF CATALYST OPERATOR Work Phone: [facility] 12-16-2022 influenza virus vaccine, unspecified formulation Cachorro Vides DO Work Phone: [facility] 10-30-2022 tetanus toxoid, redu katy diphtheria toxoid, and acellular pertussis vaccine, adsorbed Ashley Gomez APPLICATION SUPPORT INTERN - CHIEF CATALYST OPERATOR Work Phone: [facility] 07-29-2021 hepatitis B vaccine, adult dosage [facility] 02-28-2021 hepatitis B vaccine, adult dosage [facility] 02-11-2021 Covid (Moderna) [facility] 01-28-2021 hepatitis B vaccine, adult dosage [facility] 01-28-2021 influenza, injectabl e, quadrivalent, preservative free [facility] 01-28-2021 influenza, seasonal, injectable [facility] 01-28-2021 influenza, seasonal, injectable, preservative free Ashley Gomez APPLICATION SUPPORT INTERN - CHIEF CATALYST OPERATOR Work Phone: [facility] 01-28-2021 influenza virus vaccine, unspecified formulation Ashley Gomez APPLICATION SUPPORT INTERN - CHIEF CATALYST OPERATOR Work Phone: [facility] 07-12-2020 COVID-19 vaccine, fu ll dose (MODERNA) Sada Snyder MD Work Phone: [facility] Work Phone: 06-13-2020 COVID-19 vaccine, fu ll dose (MODERNA) Sada Snyder MD Work Phone: [facility] Work Phone: 01-12-2020 influenza, injectabl e, quadrivalent, preservative free Ashley Gomez APPLICATION SUPPORT INTERN - CHIEF CATALYST OPERATOR Work Phone: [facility] 01-12-2020 influenza, seasonal, injectable Dr. Ashok Siu Work Phone: [facility] 12-22-2018 influenza, injectabl e, quadrivalent, preservative free [facility] 12-22-2018 influenza, seasonal, injectable Sada Snyder MD Work Phone: [facility] 12-24-2016 influenza, injectabl e, quadrivalent, preservative free [facility] 12-24-2016 influenza, seasonal, injectable Sada Snyder MD Work Phone: [facility] 03-01-2014 influenza, injectabl e, quadrivalent, preservative free [facility] 03-01-2014 influenza, seasonal, injectable Sada Snyder MD Work Phone: [facility] 02-20-2013 influenza virus vaccine, unspecified formulation Sada Snyder MD Work Phone: [facility] Work Phone: 04-29-2011 tetanus toxoid, redu katy diphtheria toxoid, and acellular pertussis vaccine, adsorbed Sada Snyder MD Work Phone: [facility] Work Phone: 01-22-2011 influenza virus vaccine, unspecified formulation Sada Snyder MD Work Phone: [facility] Work Phone: 01-23-2010 influenza virus vaccine, unspecified formulation Sada Snyder MD Work Phone: [facility] 03-12-2009 novel [id number], all formulations Sada Snyder MD Work Phone: [facility] Work Phone: 12-22-2008 influenza virus vaccine, unspecified formulation Sada Snyder MD Work Phone: [facility] Work Phone: 02-03-2008 influenza virus vaccine, unspecified formulation Sada Snyder MD Work Phone: [facility] Work Phone: 01-24-2007 influenza virus vaccine, unspecified formulation Sada Snyder MD Work Phone: [facility] Work Phone: 02-01-2006 influenza virus vaccine, unspecified formulation Sada Snyder MD Work Phone: [facility] Work Phone: Payers Date Payer Category Payer Self-pay [id number] 2022 Medicaid HMO [id number] 2022 Unknown [employer] [id number] 2022-Present [address] [place] [address] Commercial [id number] 2022 Unknown [id number] 2020 Medicaid [employer]ICA[employer] [id number] 2020-Present [phone] [address] [place] [address] Medicaid [id number] 2019 Medicaid [id number] Unknown [id number] Unknown [id number] Unknown [id number] Unknown ANTHEM [id number] Unknown [employer] [id number] Unknown [employer] [id number] Unknown [id number] Unknown [id number] Unknown [id number] Unknown [id number] Unknown [id number] Unknown [id number] Unknown [id number] Unknown [id number] Unknown [id number] Unknown [id number] Unknown [id number] Unknown [id number] Unknown [id number] Unknown [id number] Unknown [id number] Unknown [id number] Unknown [id number] Social History Date Type Detail Facility Start: 02-21-2021 End: 07-14-2023 Tobacco smoking status [facility] Unknown if ever smoked [facility] Start: 11-21-2019 Non-smoker [facility] Start: 1975 Sex Assigned At Female [facility] Start: 01-05-2022 End: 10-29-2022 Tobacco smoking status SCIS Never smoked tobacco [facility] Start: 12-31-2020 End: 07-21-2024 Alcohol intake Current drinker of alcohol (finding) [facility] Start: 10-10-2020 History SDOH Alcohol Frequency 3 [facility] Start: 10-10-2020 History SDOH Alcohol Std Drinks 1 [facility] Start: 12-31-2020 History SDOH Alcohol Comment socially [facility] Start: 10-10-2020 History SDOH Social Connections Phone 5 [facility] Start: 10-10-2020 History SDOH Social Connections Worship 2 [facility] Start: 10-10-2020 History SDOH Stress 4 [facility] Start: 10-10-2020 Education 12 [facility] Start: 01-05-2022 End: 10-29-2022 Tobacco use and exposure Smokeless tobacco non-user [facility] Start: 01-06-2020 End: 12-16-2022 Exposure to SARS-CoV-2 (event) Not sure [facility] Start: 06-15-2022 End: 05-17-2024 History of Social function [facility] Start: 06-15-2022 End: 05-17-2024 Tobacco use panel [facility] National Score (1-10 0), lower number is lower risk 81 [facility] Start: 02-27-2021 Gender identity Identifies as female gender (finding) [facility] Start: 02-27-2021 Sexual orientation Heterosexual (hiro evans) [facility] How often to you hav e a drink containing alcohol? Monthly or less [facility] How many standard drinks containing alcohol do you have on a typical day? 1 or 2 [facility] How often do you hav e 6 or more drinks on 1 occasion? Never [facility] (I/We) worried shanna er (my/our) food would run out before (I/we) got money to buy more. Never true [facility] In the past 12 month s, was there a time when you were not able to pay the mortgage or rent on time? No [facility] Start: 10-29-2022 Alcohol Comment on occasion [facility] Start: 1975 Sex Assigned At Not on file S [facility] Do you belong to any clubs or organizations such as spiritism groups, unions, fraternal or athletic groups, or school groups? Yes [facility] Are you now , , , , never or living with a partner? [facility] How often to you hav e a drink containing alcohol? 2-4 times a month [facility] Do you feel stress - tense, restless, nervous, or anxious, or unable to sleep at night because your mind is troubled all the time - these days [OSQ] Rather much [facility] Start: 11-10-2023 Alcohol Comment Occasionally [facility] Start: 06-02-2007 Alcohol Comment rare [facility] Start: 10-09-2022 Sex Female (finding) [facility] Do you feel stress - tense, restless, nervous, or anxious, or unable to sleep at night because your mind is troubled all the time - these days [OSQ] To some extent [facility] NEGATED: Highlighted row [facility] Medical Equipment Procedure Code Equipment Code Equipment Origin al Text Equipment Identifier Dates ([id number]) Polymeric ureter al stent ()[id number] FDA Start: 07-05-2023 Goals Date Patient Goal Desired Activity /State Functional Status Date Assessment Result Facility 07-05-2023 Functional status Bathroom Privilege [facility] Work Phone: Mental Status Date Assessment Result Facility 07-05-2023 Cognitive function Voice/Name [facility] Work Phone: 07-04-2023 Cognitive function Appropriate;C ooperative;Ta lkative [facility] Work Phone: 06-10-2023 Cognitive function Voice/Name [facility] Work Phone: Clinical Notes 02-05-2020 to 07-21-2024 Ashley Gomez APRN - [facility] - 07/21/2024 1:40 PM EDTTelephone Encounter - Loida Bautista [place] - 05/26/2024 9:42 AM ESTTelephone Encounter - [place] Bautista [place] - 05/26/2024 9:42 AM ESTPatient Instructions Note Date & Type Note Facility 07-21-2024 History of Presen t illness Narrative Images from the original note were not included. 07/21/2024 Marcelino Araiza (: 1975) is a 48 y.o. female , Established patient, here for evaluation of the following chief complaint(s): Peripheral Neuropathy Patient was identified and seen today via Telehealth by agreement and consent. I used the following Telehealth technology: Audio and video capabilities. Patient location: Patient Location: Home. This patient encounter is appropriate and reasonable under the circumstances: appointment availability . The patient has been advised of the potential risks and limitations of this mode of treatment (including but not limited to the absence of in-person examination) and has agreed to be treated in a remote fashion in spite of them. Any and all of the patient's/patient's family's questions on this issue have been answered and I have made no promises or guarantees to the patient. The patient has also been advised to contact this office for worsening conditions or problems, and seek emergency medical treatment and/or call 911 if the patient deems either necessary. The patient stated that they are currently in the [facility]. If the patient is a minor, permission has been obtained by the parent or guardian for the patient to receive medical care at this visit. ASSESSMENT/PLAN: 1. Neuropathy of right foot - gabapentin (Neurontin) 100 MG capsule; Take 1 capsule (100 mg) by mouth Nightly., Starting Wed07/21/2024, Normal - Do not suspect gout based on description of symptoms and lack of redness, swelling, and feeling hot to the touch. - Will have her do a trial of gabapentin 100 mg before bedtime and see how symptoms respond. - OARRS report reviewed with no discrepancies. CSA will need signed if she continues with this medication. - Will do a close follow-up in 3 to 4 weeks to see how she is doing on the new medication. 2. Depressive disorder - buPROPion XL (Wellbutrin XL) 300 MG 24 hr tablet; Take 1 tablet (300 mg) by mouth daily. Do not crush, chew, or split., Starting Wed07/21/2024, Normal - Stable with Wellbutrin. Will continue current treatment plan. 3. Anxiety - buPROPion XL (Wellbutrin XL) 300 MG 24 hr tablet; Take 1 tablet (300 mg) by mouth daily. Do not crush, chew, or split., Starting Wed07/21/2024, Normal - Stable with Wellbutrin. Will continue current treatment plan. 4. Rash and nonspecific skin eruption - Improving. Will continue to monitor. Follow up in about 4 weeks (around 08/18/2024) for Follow-up on right foot neuropathy. SUBJECTIVE/OBJECTIVE: JUSTO Rachael presents today for a video virtual visit with concerns of numbness/tingling on the top of her right foot around her second toe that will radiate up to her ankle for the past couple of months. Feels symptoms wax and wane but is worsening overall. Denies redness or swelling. Denies her foot feeling hot to the touch. Denies history of injuries/surgeries on her right foot. Feels symptoms are worse at night. Is also requesting a refill on her Wellbutrin that she takes for her depression and anxiety. States the current dose is working well for her. Also notes that she fell down the stairs about a week ago and bumped her buttocks. Had a bit of a rash breakout around the area that is now improving. Review of Systems Respiratory: Negative for shortness of breath. Cardiovascular: Negative for chest pain. Skin: Positive for rash. Neurological: Positive for numbness. Psychiatric/Behavioral: Negative for dysphoric mood, self-injury and suicidal ideas. The patient is not nervous/anxious. There were no vitals filed for this visit. There is no height or weight on file to calculate BMI. Physical Exam Constitutional: General: She is not in acute distress. Appearance: She is not ill-appearing. Pulmonary: Effort: Pulmonary effort is normal. Comments: Speaking in full sentences. Skin: Coloration: Skin is not pale. Findings: No erythema. Neurological: Mental Status: She is alert and oriented to person, place, and time. Psychiatric: Mood and Affect: Mood normal. Behavior: Behavior normal. Thought Content: Thought content normal. Judgment: Judgment normal. Data Reviewed Labs: Imaging/Testing: An electronic signature was used to authenticate this note. TERE Chung CNP 07/21/2024 1:56 PM documented in this encounter [facility] 05-26-2024 Telephone encounter Note Prescription Request: Last medication check: 05/17/24 Last physical exam: 11/10/23 Next scheduled appointment: 11/15/24 Last date of refill on this medication 04/30/23 [facility] 05-26-2024 Miscellaneous Notes Prescription Request: Last medication check: 05/17/24 Last physical exam: 11/10/23 Next scheduled appointment: 11/15/24 Last date of refill on this medication 04/30/23 documented in this encounter [facility] 05-17-2024 History of Presen t illness Narrative Patient verified by last name and . 05/17/2024 Marcelino Araiza (: 1975) is a 48 y.o. female , Established patient, here for evaluation of the following chief complaint(s): Blood Work, Medication Check, Anxiety, Depression, Hypertension, GERD, Obesity, Vitamin D Deficiency, and Health Maintenance (Mammo- had done at [facility] ) ASSESSMENT/PLAN: 1. Vitamin D deficiency - Comprehensive metabolic panel - Vitamin D Deficiency Screening (Vit D 25) - Symptoms stable. Not currently taking Vitamin D daily. Will notify of blood work results and provide recommendations accordingly. 2. Primary hypertension - Comprehensive metabolic panel - Stable with Lisinopril. Will continue current treatment plan. 3. Osteoarthritis of both knees, unspecified osteoarthritis type - Comprehensive metabolic panel - Stable with Meloxicam and PRN Cyclobenzaprine. Will continue current treatment plan. Follow up with specialist as directed. 4. Inflammatory polyarthropathy (HCC) - Comprehensive metabolic panel - Stable with Meloxicam and PRN Cyclobenzaprine. Will continue current treatment plan. Follow up with specialist as directed. 5. Class 2 obesity due to excess calories without serious comorbidity with body mass index (BMI) of 37.0 to 37.9 in adult - Comprehensive metabolic panel - Encouraged a healthy diet and regular exercise. 6. Irritable bowel syndrome with both constipation and diarrhea - Comprehensive metabolic panel - Stable. Follow up with specialist as directed. Continue Carafate as prescribed. 7. Gastroesophageal reflux disease, unspecified whether esophagitis present - Comprehensive metabolic panel - Stable with Protonix. Follow up with specialist as directed. 8. Mild intermittent asthma without complication - Comprehensive metabolic panel - Stable with PRN Albuterol. Will continue current treatment plan. 9. Depressive disorder - Comprehensive metabolic panel - Stable with Prozac and Wellbutrin. Will continue current treatment plan. 10. Anxiety - Comprehensive metabolic panel - Stable with Prozac and Wellbutrin. Will continue current treatment plan. 11. Elevated LDL cholesterol level - Lipid panel - Comprehensive metabolic panel - Will notify of blood work results and provide recommendations accordingly. Follow up in about 6 months (around 11/14/2024) for annual physical and fasting blood work. SUBJECTIVE/OBJECTIVE: JUSTO Cochran presents today for follow up on her chronic health conditions. Vitamin D Deficiency: Has not been taking 2,000 units of Vitamin D OTC regularly. Level stable at 41 ng/mL on 11/10/23. Will recheck levels today. Hypertension: Takes Lisinopril daily as prescribed. Does not check her blood pressure at home. Her BP is stable today at 136/72. Arthritis/Inflammatory Polyarthropathy: Continues to take her daily Meloxicam and feels this has helped. Saw an ortho specialist for joint pain and it was recommended she see a block layer- saw them in November. Will use Cyclobenzaprine as needed and this helps as well. Obesity: Denies regular exercise but is active around the house. Has not been eating as healthy. Knows she can do better. IBS/GERD: Taking Protonix 20 mg twice daily and feels symptoms are stable. Following up with GI- has been given strict dietary restrictions. Bowels have been stable as long as she is careful with what she eats. Was started on Carafate and was told to follow up again within the next 1-2 months. Asthma: Medications used for maintenance include: Albuterol. Needs to use rescue inhaler less than 1-2 times per month. Daytime symptoms in the past 2-4 weeks: none. Number of nighttime awakenings coughing in the past 2-4 weeks: none. Limitations of activities due to asthma include: none. Number of asthma exacerbations over the past 6-12 months requiring oral systemic corticosteroids: yes- in the spring. Understands how to use inhalers as directed and demonstrated proper inhaler technique. Depression/Anxiety: Taking her Prozac and Wellbutrin daily as prescribed and feels symptoms are stable. Her LDL cholesterol was elevated at 113 back in October and it was recommended she have her levels rechecked in 6 months for follow up. Will recheck this today. Component Ref Range & Units 6 mo ago 1 yr ago CHOLESTEROL, TOTAL <200 mg/dL 196 169 HDL CHOLESTEROL > OR = 50 mg/dL 63 51 TRIGLYCERIDES <150 mg/dL 101 104 LDL-CHOLESTEROL mg/dL (calc) 113 High 98 CM CHOL/HDLC RATIO <5.0 (calc) 3.1 3.3 NON HDL CHOLESTEROL <130 mg/dL (calc) 133 High 118 CM Health Maintenance: Current on her pneumococcal vaccinations- PCV20 in 11/10/23. Pap: 07/14/23. Mammogram: 05/03/24- normal findings. Colonoscopy: 11/07/20- repeat 5 years. Tdap current: 10/30/22. Fully vaccinated for Hep B. Vaccinated for COVID-19 x3 with most recent dose on 02/11/21- declines additional doses. Flu vaccine current: 12/31/23. Review of Systems Constitutional: Negative for chills and fever. Respiratory: Negative for chest tightness and shortness of breath. Cardiovascular: Negative for chest pain, palpitations and leg swelling. Gastrointestinal: Positive for constipation and diarrhea. Negative for abdominal distention, abdominal pain, blood in stool, nausea and vomiting. Musculoskeletal: Positive for arthralgias. Skin: Negative for color change, pallor, rash and wound. Neurological: Negative for dizziness, syncope and weakness. Psychiatric/Behavioral: Positive for dysphoric mood. Negative for self-injury and suicidal ideas. The patient is nervous/anxious. Vitals: 05/17/24 0912 05/17/24 0930 BP: (!) 160/88 136/72 BP Location: Left arm Patient Position: Sitting Pulse: 93 SpO2: 96% Weight: 246 lb 9.6 oz (112 kg) Height: 5' 8 (1.727 m) Body mass index is 37.5 kg/m . Last 3 MARLENE-7 Scores 05/17/2024 0900 MARLENE-7 Total Score: 6 Last 3 PHQ-2 Scores 05/17/2024 0933 Patient Health Questionnaire-2 Score: 2 Last 3 PHQ-9 Scores 05/17/2024 0933 Patient Health Questionnaire-9 Score: 8 Physical Exam Constitutional: General: She is not in acute distress. Appearance: She is obese. She is not ill-appearing or diaphoretic. Neck: Vascular: No carotid bruit. Cardiovascular: Rate and Rhythm: Normal rate and regular rhythm. Pulses: Normal pulses. Heart sounds: Normal heart sounds. No murmur heard. No friction rub. Pulmonary: Effort: Pulmonary effort is normal. Breath sounds: Normal breath sounds. No wheezing, rhonchi or rales. Abdominal: General: Abdomen is protuberant. Bowel sounds are normal. Palpations: Abdomen is soft. There is no hepatomegaly, splenomegaly or mass. Tenderness: There is no abdominal tenderness. There is no guarding or rebound. Musculoskeletal: Cervical back: Neck supple. Right lower leg: No edema. Left lower leg: No edema. Lymphadenopathy: Cervical: No cervical adenopathy. Skin: General: Skin is warm and dry. Coloration: Skin is not pale. Findings: No erythema or rash. Neurological: Mental Status: She is alert and oriented to person, place, and time. Psychiatric: Mood and Affect: Mood normal. Behavior: Behavior normal. Thought Content: Thought content normal. Judgment: Judgment normal. Data Reviewed Labs: Imaging/Testing: An electronic signature was used to authenticate this note. TERE Chung CNP 05/17/2024 9:34 AM documented in this encounter [facility] 03-09-2024 Telephone encounter Note Prescription Request: Last medication check: 06/18/23 Last physical exam: 11/10/23 Next scheduled appointment: 05/17/24 Last date of refill on this medication 03/30/23 18g 2 refills [facility] 03-09-2024 Miscellaneous Notes Prescription Request: Last medication check: 06/18/23 Last physical exam: 11/10/23 Next scheduled appointment: 05/17/24 Last date of refill on this medication 03/30/23 18g 2 refills documented in this encounter [facility] 02-28-2024 Telephone encounter Note Reviewed chart. Refill appropriate. RX sent. [facility] 02-28-2024 Miscellaneous Notes Reviewed chart. Refill appropriate. RX sent. Prescription Request: Last medication check: 04/28/2023 Last physical exam: 11/10/2023 Next scheduled appointment: 05/17/2024 Last date of refill on this medication: 08/13/2023 documented in this encounter [facility] 02-28-2024 Telephone encounter Note Prescription Request: Last medication check: 04/28/2023 Last physical exam: 11/10/2023 Next scheduled appointment: 05/17/2024 Last date of refill on this medication: 08/13/2023 [facility] 02-25-2024 History of Presen t illness Narrative Images from the original note were not included. 02/25/2024 Marcelino Araiza (: 1975) is a 48 y.o. female , Established patient, here for evaluation of the following chief complaint(s): Follow-up, Fatigue, Depression, and Anxiety Patient was identified and seen today via Telehealth by agreement and consent. I used the following Telehealth technology: Audio and video capabilities. Patient location: Patient Location: Home. This patient encounter is appropriate and reasonable under the circumstances: patient preference . The patient has been advised of the potential risks and limitations of this mode of treatment (including but not limited to the absence of in-person examination) and has agreed to be treated in a remote fashion in spite of them. Any and all of the patient's/patient's family's questions on this issue have been answered and I have made no promises or guarantees to the patient. The patient has also been advised to contact this office for worsening conditions or problems, and seek emergency medical treatment and/or call 911 if the patient deems either necessary. The patient stated that they are currently in the state of [place]. If the patient is a minor, permission has been obtained by the parent or guardian for the patient to receive medical care at this visit. ASSESSMENT/PLAN: 1. Other fatigue - Unchanged. Will resume her 60 mg dose of Prozac. Discussed taking a Vitamin D supplement and a B-complex vitamin. - Discussed signs and symptoms warranting follow up in the office- verbalized understanding. 2. Depressive disorder - FLUoxetine (PROzac) 20 MG capsule; Take 1 capsule (20 mg) by mouth daily. Take with 40 mg dose for a total of 60 mg, Starting Wed02/25/2024, Normal - FLUoxetine (PROzac) 40 MG capsule; Take 1 capsule (40 mg) by mouth daily. Take with 20 mg for a total of 60 mg, Starting Wed02/25/2024, Normal - Not as well controlled. Will resume 60 mg dose. 3. Anxiety - FLUoxetine (PROzac) 20 MG capsule; Take 1 capsule (20 mg) by mouth daily. Take with 40 mg dose for a total of 60 mg, Starting Wed02/25/2024, Normal - FLUoxetine (PROzac) 40 MG capsule; Take 1 capsule (40 mg) by mouth daily. Take with 20 mg for a total of 60 mg, Starting Wed02/25/2024, Normal - Not as well controlled. Will resume 60 mg dose. Follow up in 3 months (on 05/17/2024) for Next scheduled follow-up. SUBJECTIVE/OBJECTIVE: JUSTO Cochran presents today for a video virtual visit for follow up on her fatigue. [place] this may be related to her Prozac so she had the dose reduced from 60 mg down to 40 mg a few weeks ago. Has noticed feeling more depressed and sad on the lower dose and her fatigue has not improved. Would like to go back up to 60 mg. Had blood work done within the past month or two showing a normal Vitamin D level, blood count, and chem panel, Normal thyroid function earlier this year. Review of Systems Constitutional: Positive for fatigue. Respiratory: Negative for shortness of breath. Cardiovascular: Negative for chest pain. Psychiatric/Behavioral: Positive for dysphoric mood. Negative for self-injury and suicidal ideas. The patient is not nervous/anxious. There were no vitals filed for this visit. There is no height or weight on file to calculate BMI. Physical Exam Constitutional: General: She is not in acute distress. Appearance: She is not ill-appearing. Pulmonary: Effort: Pulmonary effort is normal. Comments: Speaking in full sentences. Skin: Coloration: Skin is not pale. Findings: No erythema. Neurological: Mental Status: She is alert and oriented to person, place, and time. Psychiatric: Mood and Affect: Mood normal. Behavior: Behavior normal. Thought Content: Thought content normal. Judgment: Judgment normal. Data Reviewed Labs: Imaging/Testing: An electronic signature was used to authenticate this note. TERE Chung CNP 02/25/2024 10:00 AM documented in this encounter [facility] 02-09-2024 History of Presen t illness Narrative Patient verified by last name and . Images from the original note were not included. 02/09/2024 Marcelino Araiza (: 1975) is a 48 y.o. female , Established patient, here for evaluation of the following chief complaint(s): Fatigue (States that lately she has felt extremely tired, states that she is getting a good nights sleep but waking up very tired, feels like she has to take a nap every day and take about a 2-3 hour nap each day. 60mg of fluoxetine ) Patient was identified and seen today via Telehealth by agreement and consent. I used the following Telehealth technology: Audio and video capabilities. Patient location: Patient Location: Home. This patient encounter is appropriate and reasonable under the circumstances: Behavioral Health . The patient has been advised of the potential risks and limitations of this mode of treatment (including but not limited to the absence of in-person examination) and has agreed to be treated in a remote fashion in spite of them. Any and all of the patient's/patient's family's questions on this issue have been answered and I have made no promises or guarantees to the patient. The patient has also been advised to contact this office for worsening conditions or problems, and seek emergency medical treatment and/or call 911 if the patient deems either necessary. The patient stated that they are currently in the state [facility]. If the patient is a minor, permission has been obtained by the parent or guardian for the patient to receive medical care at this visit. ASSESSMENT/PLAN: 1. Other fatigue - Will reduce Prozac from 60 mg daily to 40 mg and will do a close follow up in 2 weeks. 2. Depressive disorder - Stable. Will reduce dose of Prozac and do a close follow up in 2 weeks. 3. Anxiety - Stable. Will reduce dose of Prozac and do a close follow up in 2 weeks. Follow up in 16 days (on 02/25/2024) for Next scheduled follow-up. SUBJECTIVE/OBJECTIVE: JUSTO Cochran presents today for a video virtual visit with concerns of feeling more tired lately- a few months. Is not sure if it is related to her daily Prozac or not. States she is sleeping well at night. Has been experiencing more vivid dreams at night since increasing her Prozac to 60 mg back in July/August this year. Would like to decrease her Prozac and see if symptoms improve. Feels her depression and anxiety have been stable. I informed her Prozac is typically a stimulating medication and I do not feel this would be associated with her fatigue but she states she generally responds opposite to medications. Of note: normal CBC and Vitamin D level in September this year. Normal TSH in March of this year. See ROS for additional information. Review of Systems Constitutional: Positive for fatigue. Negative for chills and fever. Cardiovascular: Negative for chest pain. Endocrine: Negative for cold intolerance and heat intolerance. There were no vitals filed for this visit. There is no height or weight on file to calculate BMI. Physical Exam Constitutional: General: She is not in acute distress. Appearance: She is not ill-appearing. HENT: Head: Normocephalic and atraumatic. Pulmonary: Effort: Pulmonary effort is normal. Comments: Speaking in full sentences. Skin: Coloration: Skin is not pale. Findings: No erythema or rash. Neurological: Mental Status: She is alert and oriented to person, place, and time. Psychiatric: Mood and Affect: Mood normal. Behavior: Behavior normal. Thought Content: Thought content normal. Judgment: Judgment normal. An electronic signature was used to authenticate this note. TERE Chung CNP 02/09/2024 1:05 PM documented in this encounter [facility] 12-22-2023 Instructions Kim Malhotra MD - 12/22/2023 10:30 AM EDT -Please go to the lab today for blood work -Please follow up after results are obtained documented in this encounter [facility] 12-22-2023 Note HNO ID: [id number] Author: FALLON RIVAS MD Service: ? Author Type: Physician Type: Progress Notes Filed: 01/09/2024 17:17 Note Text: Marcelino Araiza is a 47 year old female. Consultation was requested by ortho in the setting of polyarthralgia, for an opinion regarding join pain involving hand, knees, shoulders and hip; my final assessment and recommendations will be communicated back to the requesting physician by way of shared medical record, or by letter via fax or [place] mail. Evaluation Date: 12/22/2023 Chief Complaint: Joint pain HPI: History was obtained from the patient and from outside records. Marcelino Araiza reports that her symptoms are getting worse in the last six months, with daily morning stiffness that lasts more than two hours in the morning, with spontaneous resolution during the day, patient reports pain in both hands, as well as bilateral knees, shoulder and hip. 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 Patient was previously seen in our service in 2019 for possible chondritis in the right ear, patient does reports that still does follow with her ENT, and that occasionally gets R ear pain, denies swelling, redness, or hearing loss. Patient reported stiffness also in her jaw, denies rash, easy sunburn, mouth ulcers, but does reports weight gain. Patient reported that was prescribed prednisone for join pain and noticed resolution of her symptoms during the first tree days on steroids with complete resolution of he joint pain. Review of Systems CONSTITUTION: Negative for: Fever and Recent weight change HEENT: Negative for: Nosebleeds, Mouth sores, Trouble swallowing and Dry mouth RESPIRATORY: Negative for: Cough, Shortness of breath and Pain with breathing GASTROINTESTINAL: Positive for: Diarrhea and Abdominal pain Negative for: Melena and Heartburn MUSCULOSKELETAL: Positive for: Arthralgias, Myalgias, Muscle weakness and Morning Joint Stiffness Negative for: Joint swelling NEUROLOGICAL: Positive for: Headaches and Memory loss Negative for: Numbness SKIN: Negative for: Rash, Skin changes, Hair loss and Nail changes EYES: Positive for: Visual disturbance Negative for: Eye pain, Eye redness and Eye dryness CARDIOVASCULAR: Negative for: Chest pain and Leg swelling GENITOURINARY: Negative for: Dysuria and Hematuria HEMATOLOGIC/LYMPHATIC: Negative for: Swollen glands ROS GENERAL: negative for, malaise, fatigue FEVER: none WEIGHT CHANGE: has gained weight HEAD: negative for, headache ENT: negative for mouth lesions, R ear pain, intermittent without redness or swelling. EYES: negative for , pain, visual blurring NECK: negative for, swelling, tenderness RESPIRATORY: negative for, shortness of breath, pleuritic chest pain CARDIOVASCULAR: negative for, chest pain, palpitations, extremity claudication GASTROINTESTINAL: negative for, abdominal pain, black stools, vomiting URINARY: negative for, dysuria, incontinence MUSCULOSKELETAL: joint pain involving bilateral knee, shoulders, hip and both hands, without tenosynovitis. NEUROLOGIC: negative for, weakness, paresthesias SKIN: negative for, rash, ulcers MOOD/PSYCHIATRIC: sleep disturbance PAST MEDICAL HISTORY: PAST MEDICAL HISTORY Diagnosis Date Anxiety disorder in conditions classified elsewhere Atypical nevi Dr Lim Hemicrania left headache, cervical origin? Herpes zoster without complication 12/2011 left gluteal area IBS (irritable bowel syndrome) alternating Impaired fasting glucose Obesity, unspecified Reactive airway disease with wheezing triggered by URI Skin cancer PAST SURGICAL HISTORY: PAST SURGICAL HISTORY Procedure Laterality Date CARPAL TUNNEL CHOLECYSTECTOMY 2001 Cholecystectomy (lap, with cholangiogram), Dr. Flores COLONOSCOPY 10/2020 years ago EGD 11/07/2020 EXTRACTION, ERUPTED TOOTH OR EXPOSED ROOT (ELEVATION AND/OR FORCEPS REMOVAL) 1995 wisdom teeth PAST SURGICAL HISTORY OF 11/2019 uterine ablation TONSILLECTOMY PRIMARY/SECONDARY AGE 13/> 1998 CURRENT MEDICATIONS: Current Outpatient Medications Medication Sig FLUoxetine (PROZAC) 20 mg capsule Take 20 mg by mouth as needed. pantoprazole DR (PROTONIX) 40 mg tablet Take 1 tablet by mouth every afternoon. dicyclomine (BENTYL) 10 mg capsule Take 1 [...] (FLONASE) 50 mcg/actuation nasal spray Use 1 Needles in each nostril once daily. buPROPion XL (WELLBUTRIN XL) 300 mg 24 hr tablet Take (more content not included)... [facility] 12-22-2023 History of Presen t illness Narrative Marcelino Araiza is a 47 year old female. Consultation was requested by ortho in the setting of polyarthralgia, for an opinion regarding join pain involving hand, knees, shoulders and hip; my final assessment and recommendations will be communicated back to the requesting physician by way of shared medical record, or by letter via fax or [place] mail. Evaluation Date: 12/22/2023 Chief Complaint: Joint pain HPI: History was obtained from the patient and from outside records. Marcelino Araiza reports that her symptoms are getting worse in the last six months, with daily morning stiffness that lasts more than two hours in the morning, with spontaneous resolution during the day, patient reports pain in both hands, as well as bilateral knees, shoulder and hip. 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 Patient was previously seen in our service in 2019 for possible chondritis in the right ear, patient does reports that still does follow with her ENT, and that occasionally gets R ear pain, denies swelling, redness, or hearing loss. Patient reported stiffness also in her jaw, denies rash, easy sunburn, mouth ulcers, but does reports weight gain. Patient reported that was prescribed prednisone for join pain and noticed resolution of her symptoms during the first tree days on steroids with complete resolution of he joint pain. Review of Systems CONSTITUTION: Negative for: Fever and Recent weight change HEENT: Negative for: Nosebleeds, Mouth sores, Trouble swallowing and Dry mouth RESPIRATORY: Negative for: Cough, Shortness of breath and Pain with breathing GASTROINTESTINAL: Positive for: Diarrhea and Abdominal pain Negative for: Melena and Heartburn MUSCULOSKELETAL: Positive for: Arthralgias, Myalgias, Muscle weakness and Morning Joint Stiffness Negative for: Joint swelling NEUROLOGICAL: Positive for: Headaches and Memory loss Negative for: Numbness SKIN: Negative for: Rash, Skin changes, Hair loss and Nail changes EYES: Positive for: Visual disturbance Negative for: Eye pain, Eye redness and Eye dryness CARDIOVASCULAR: Negative for: Chest pain and Leg swelling GENITOURINARY: Negative for: Dysuria and Hematuria HEMATOLOGIC/LYMPHATIC: Negative for: Swollen glands ROS GENERAL: negative for, malaise, fatigue FEVER: none WEIGHT CHANGE: has gained weight HEAD: negative for, headache ENT: negative for mouth lesions, R ear pain, intermittent without redness or swelling. EYES: negative for , pain, visual blurring NECK: negative for, swelling, tenderness RESPIRATORY: negative for, shortness of breath, pleuritic chest pain CARDIOVASCULAR: negative for, chest pain, palpitations, extremity claudication GASTROINTESTINAL: negative for, abdominal pain, black stools, vomiting URINARY: negative for, dysuria, incontinence MUSCULOSKELETAL: joint pain involving bilateral knee, shoulders, hip and both hands, without tenosynovitis. NEUROLOGIC: negative for, weakness, paresthesias SKIN: negative for, rash, ulcers MOOD/PSYCHIATRIC: sleep disturbance PAST MEDICAL HISTORY: PAST MEDICAL HISTORY Diagnosis Date Anxiety disorder in conditions classified elsewhere Atypical nevi Dr Lim Hemicrania left headache, cervical origin? Herpes zoster without complication 12/2011 left gluteal area IBS (irritable bowel syndrome) alternating Impaired fasting glucose Obesity, unspecified Reactive airway disease with wheezing triggered by URI Skin cancer PAST SURGICAL HISTORY: PAST SURGICAL HISTORY Procedure Laterality Date CARPAL TUNNEL CHOLECYSTECTOMY 2001 Cholecystectomy (lap, with cholangiogram), Dr. Flores COLONOSCOPY 10/2020 years ago EGD 11/07/2020 EXTRACTION, ERUPTED TOOTH OR EXPOSED ROOT (ELEVATION AND/OR FORCEPS REMOVAL) 1995 wisdom teeth PAST SURGICAL HISTORY OF 11/2019 uterine ablation TONSILLECTOMY PRIMARY/SECONDARY AGE 13/> 1998 CURRENT MEDICATIONS: Current Outpatient Medications Medication Sig FLUoxetine (PROZAC) 20 mg capsule Take 20 mg by mouth as needed. pantoprazole DR (PROTONIX) 40 mg tablet Take 1 tablet by mouth every afternoon. dicyclomine (BENTYL) 10 mg capsule Take 1 [...] (FLONASE) 50 mcg/actuation nasal spray Use 1 Needles in each nostril once daily. buPROPion XL (WELLBUTRIN XL) 300 mg 24 hr tablet Take 1 tablet by mouth once daily. albuterol HFA (PROAIR HFA) 90 mcg/actuation inhaler Inhale 2 Puffs as instructed every 4 hours as needed for Wheezing/Shortness of Breath. doxycycline (VIBRA-TABS) 100 mg tablet Take 1 tablet by mouth every 12 hours. (Patient not taking: Reported on 07/08/2023) oxyCODONE-acetaminophen (PERCOCET) 5-325 mg tablet TAKE 1 TABLET BY MOUTH EVERY 8 HOURS NEEDED FOR PAIN FOR 3 DAYS (Patient not taking: Reported on 07/08/2023) phenazopyridine (PYRIDIUM) 200 mg tablet (Patient not taking: Reported on 12/22/2023) Phentermine HCl 37.5 mg tablet Take 1 tablet (37.5 mg) by mouth every morning (before breakfast). BMI 36.49 (Patient not taking: Reported on 07/08/2023) valACYclovir (VALTREX) 1 gram tablet (Patient not taking: Reported on 07/08/2023) cephALEXin (KEFLEX) 500 mg capsule Take 500 mg by mouth two times a day. (Patient not taking: Reported on 12/22/2023) cephALEXin (KEFLEX) 250 mg capsule Take 250 mg by mouth daily at bedtime. (Patient not taking: Reported on 12/22/2023) benzonatate (TESSALON PERLES) 100 mg capsule Take 1-2 capsules by mouth three times daily as needed. omeprazole (PRILOSEC) 40 mg capsule Take 1 capsule by mouth twice daily. Cholestyramine, Bulk, powd 4 g twice daily. (Patient not taking: Reported on 02/04/2022) FLUoxetine 10 mg tablet Take 10 mg by mouth once daily. (Patient not taking: Reported on 01/05/2022) No current facility-administered medications for this visit. ALLERGIES: Ofloxacin and Seasonal Allergies SOCIAL HISTORY: Social History Tobacco Use Smoking status: Never Smokeless tobacco: Never Vaping Use Vaping status: Never Used Substance Use Topics Alcohol use: Yes Comment: socially Drug use: No FAMILY HISTORY: FAMILY HISTORY Problem Relation Age of Onset Anesthesia Mother heart stopped 3 times on the table Colon Polyps Mother Arthritis Father rheumatoid (and one PAunt) Colon Polyps Father Heart Maternal Grandmother pacer Diabetes Maternal Grandmother Diabetes Paternal Grandmother Colon Cancer Paternal Grandmother Cancer Maternal Uncle type unknown; age 54 Coronary Artery Disease Other none Breast Cancer Other none PHYSICAL EXAMINATION BP 114/75 Pulse 97 Temp (!) 35.9 C (96.6 F) (Temporal) Ht 172.7 cm (5' 8) Wt 111.1 kg (244 lb 14.9 oz) LMP 12/29/2019 (Approximate) BMI 37.24 kg/m GENERAL APPEARANCE: well SKIN: normal without rashes or lesions HEAD: normal; temporal arteries with normal pulsation without nodularity or tenderness EYES: conjunctiva clear, PERRL, EOM normal EARS: External ears normal, TM's normal NOSE/SINUSES: normal OROPHARYNX: no oral lesions present, no oral ulcers. NECK: supple, without adenopathy. LUNGS: clear HEART: RRR, no gallops, rubs or murmurs ABDOMEN: soft, non-tender, normal BS, no organomegaly or masses MUSCULOSKELETAL: no joint tenderness or swelling NEURO: normal ASSESSMENT: Marcelino Araiza is a 47 year old female with a history of anxiety, IBS, asthma that presents today referred from ortho for further evaluation of joint pain. Available laboratories were reviewed with the patient. - Chronic inflammatory polyarthritis is suspected based on description of symptoms PLAN: complete diagnostic evaluation Patient was instructed to get lab work today, that includes ESR, CRP, CBC, CMP, RF, CCP IgG. Follow up to discuss above results. Continue current medications. Orders: labs Consults: none Monitoring: to be determined Patient instructed to notify provider of any changes in medical condition. Follow-up: following lab results. iKm Marino MD Vascular Medicine PGY-4 [facility] RHEUMATOLOGY STAFF: I have reviewed the history and physical examination obtained and documented by the fellow/resident and I personally participated in the benítez components. I have discussed the case and management of the patient's care with the fellow/resident . Note was revised, edited and confirmed. Assessment and plan discussed with patient I spent a total of 50 minutes on the date of the service which included preparing to see the patient, [id number] patient care, completing clinical documentation, obtaining and/or reviewing separately obtained history, performing a medically appropriate examination, counseling and educating the patient/family/caregiver, ordering medications, tests, or procedures, and independently interpreting results (not separately reported). Fallon Martinez MD, MPH Authenticated by responsible provider. documented in this encounter [facility] 11-10-2023 History of Presen t illness Narrative Patient was verified by name and . After obtaining consent, and per orders of Ashley Gomez CNP, injection of PCV20 given in left deltoid by Loida Bautista. Patient instructed to report any adverse reaction immediately. Images from the original note were not included. [facility] [address] [facility] [address] Dept: [phone] Dept Loc: [phone] HPI: Marcelino Araiza is a 47 y.o. female who presents today for her medical conditions/complaints as noted below. Marcelino Araiza is c/o of Annual Exam, Blood Work, and Health Maintenance (PNA vaccine-discuss with Ashley/ COVID vaccine-only had 3, doesn't want a 4th) HPI- Marcelino presents today for her annual physical and fasting blood work. Vitamin D Deficiency: Currently taking 2,000 units of Vitamin D OTC a couple of times per week. Will check her level today. Hypertension: Takes Lisinopril daily as prescribed. Does not check her blood pressure at home. Her BP is stable today at 128/74. Arthritis: Recently started back on her daily Meloxicam and feels this has helped. Saw an ortho specialist for joint pain and it was recommended she see a block layer. Is scheduled to see someone through the [facility] in December. Obesity: Denies regular exercise but is active around the house. Strives for a healthy diet overall. IBS/GERD: Taking Protonix daily and feels symptoms are stable. Following up with GI. Bowels have been stable as long as she is careful with what she eats. Asthma: Medications used for maintenance include: Albuterol. Needs to use rescue inhaler less than 1-2 times per month. Daytime symptoms in the past 2-4 weeks: none. Number of nighttime awakenings coughing in the past 2-4 weeks: none. Limitations of activities due to asthma include: none. Number of asthma exacerbations over the past 6-12 months requiring oral systemic corticosteroids: yes- in the spring. Understands how to use inhalers as directed and demonstrated proper inhaler technique. Depression/Anxiety: Taking her Prozac and Wellbutrin daily as prescribed and feels symptoms are stable. Chronic left flank pain- has a scan scheduled in [place] today. Was told she might need a stent in one of her ureter's. Health Maintenance: Would like a pneumococcal vaccination. Pap: 07/14/23. Colonoscopy: 11/07/20. Tdap current: 10/30/22. Fully vaccinated for Hep B. Vaccinated for COVID-19 x3 with most recent dose on 02/11/21- declines additional doses. See ROS for additional information. 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 10/07/2022 Urinary tract infection Past Surgical History: Procedure Laterality Date BIOPSY (HISTORICAL) Bilateral bladder biospy CHOLECYSTECTOMY CYSTOSCOPY 06/2023 CYSTOSCOPY W/ URETERAL STENT PLACEMENT Family History Problem Relation Name Age of Onset Hypertension Mother Dewayne julian Cancer Maternal Grandmother Toyin Chen Cancer Paternal Grandfather Toyin Chen Heart disease Paternal Grandmother Denise julian Social History Tobacco Use Smoking status: Never Smokeless tobacco: Never Substance Use Topics Alcohol use: Yes Comment: Occasionally Current Outpatient Medications Medication Sig Dispense Refill albuterol (2.5 MG/3ML) 0.083% nebulizer solution Take by nebulization every 6 hours as needed for wheezing. albuterol 108 (90 Base) MCG/ACT inhaler Inhale 2 puffs every 6 hours as needed for wheezing. 18 g 2 Ascorbic Acid (vitamin C) 500 MG tablet Take 500 mg by mouth daily. buPROPion XL (Wellbutrin XL) 300 MG 24 hr tablet Take 1 tablet (300 mg) by mouth daily. Do not crush, chew, or split. 90 tablet 1 cephalexin (Keflex) 250 MG capsule TAKE 1 CAPSULE BY MOUTH ONCE DAILY AFTER INTERCOURSE cephalexin (Keflex) 500 MG capsule Take 500 mg by mouth 3 times daily. cholecalciferol (Vitamin D-3) 50 MCG (2000 UT) tablet Take 2,000 Units by mouth daily. dicyclomine (Bentyl) 10 MG capsule Take 1 capsule (10 mg) by mouth 3 times daily. 90 capsule 5 FLUoxetine (PROzac) 20 MG capsule Take 1 capsule (20 mg) by mouth daily. Take with 40 mg dose for a total of 60 mg 90 capsule 1 FLUoxetine (PROzac) 40 MG capsule Take 1 capsule (40 mg) by mouth daily. Take with 20 mg for a total of 60 mg 90 capsule 1 fluticasone (Flonase) 50 MCG/ACT nasal spray Administer 1 spray into each nostril daily. Shake gently. Before first use, prime pump. After use, clean tip and replace cap. lisinopril 5 MG tablet Take 1 tablet (5 mg) by mouth daily. 90 tablet 1 meloxicam (Mobic) 15 MG tablet Take 1 tablet (15 mg) by mouth daily. 90 tablet 1 hwiiiynxvmqa-qdlq-wtvfrfrf-folic acid (Centrum) chewable tablet Chew 1 tablet daily. ondansetron (Zofran) 4 MG tablet Take 4 mg by mouth every 8 hours as needed for nausea or vomiting. pantoprazole (ProtoNix) 40 MG EC tablet Take 40 mg by mouth every morning (before breakfast). Do not crush, chew, or split. trolamine salicylate (Aspercreme) 10 % cream Apply topically if needed for muscle/joint pain. No current facility-administered medications for this visit. Allergies Allergen Reactions Seasonal Itching Ofloxacin Swelling Severe swelling Health Maintenance Topic Date Due Pneumococcal Vaccine: Pediatrics (0 to 5 Years) and At-Risk Patients (6 to 64 Years) (1 of 2 - PCV) Never done Influenza Vaccine (1) 11/28/2023 Depression Monitoring 03/15/2024 Mammogram 05/04/2024 Colorectal Cancer Screening 11/07/2025 Diabetes Screening 04/28/2026 Zoster Vaccines (1 of 2) 2026 Lipid Panel 10/31/2027 Cervical Cancer Screening 07/13/2028 DTaP/Tdap/Td Vaccines (2 - Td or Tdap) 10/30/2032 RSV Immunization aged 60 or older (1 - 1-dose 60+ series) 2036 Hepatitis B Vaccines Completed HIV Screening Completed Hepatitis C Screening Completed RSV Immunization under 20 Months Aged Out HIB Vaccines Aged Out IPV Vaccines Aged Out Hepatitis A Vaccines Aged Out Meningococcal Vaccine Aged Out Rotavirus Vaccines Aged Out HPV Vaccines Aged Out MMR Vaccines Discontinued COVID-19 Vaccine Discontinued Subjective: Review of Systems Constitutional: Negative for chills and fever. HENT: Negative for hearing loss and trouble swallowing. Eyes: Negative for pain and visual disturbance. Respiratory: Negative for choking, chest tightness, shortness of breath and wheezing. Cardiovascular: Negative for chest pain, palpitations and leg swelling. Gastrointestinal: Negative for abdominal distention, abdominal pain, blood in stool, constipation and diarrhea. Endocrine: Negative for polydipsia, polyphagia and polyuria. Genitourinary: Positive for flank pain (left). Negative for hematuria. Musculoskeletal: Positive for arthralgias. Skin: Negative for color change, pallor, rash and wound. Neurological: Negative for dizziness, syncope, weakness and headaches. Hematological: Does not bruise/bleed easily. Psychiatric/Behavioral: Positive for dysphoric mood. Negative for self-injury and suicidal ideas. The patient is nervous/anxious. Objective: BP 128/74 Pulse 80 Ht 5' 8 (1.727 m) Wt 239 lb (108 kg) SpO2 98% BMI 36.34 kg/m Last 3 MARLENE-7 Scores 11/10/2023 0900 MARLENE-7 Total Score: 3 Last 3 PHQ-2 Scores 11/10/2023 0956 Patient Health Questionnaire-2 Score: 0 Last 3 PHQ-9 Scores 11/10/2023 0956 Patient Health Questionnaire-9 Score: 5 Physical Exam Constitutional: Oriented to person, place, and time. Appears well-developed and well-nourished. No distress. HENT: Head: Normocephalic and atraumatic. Right Ear: External ear normal. Left Ear: External ear normal. Nose: Nose normal. Mouth/Throat: Oropharynx is clear and moist. No oropharyngeal exudate. Bilateral TM's pearly freire with a good cone of light bilaterally. Eyes: Conjunctivae and EOM are normal. Pupils are equal, round, and reactive to light. Right eye exhibits no discharge. Left eye exhibits no discharge. Neck: Normal range of motion. Neck supple. No thyromegaly present. Cardiovascular: Normal rate, regular rhythm, normal heart sounds and intact distal pulses. Exam reveals no friction rub. No murmur heard. Carotid upstrokes brisk and without bruits bilaterally. Pulmonary/Chest: Effort normal and breath sounds normal. No respiratory distress. No wheezes. No rales. Abdominal: Soft. Bowel sounds are normal. No distension and no mass. There is no hepatosplenomegaly. Tenderness in LLQ. Negative CVA tenderness bilaterally. Protuberant abdomen impairing examination. Musculoskeletal: Normal range of motion. No edema, tenderness or deformity. Strength 5/5 with flexion and extension of extremities x4. Lymphadenopathy: No cervical adenopathy. Neurological: Alert and oriented to person, place, and time. Coordination normal. Skin: Skin is warm and dry. No rash noted. No erythema. No pallor. Psychiatric: Normal mood and affect. Behavior is normal. Judgment and thought content normal. Assessment and Plan: 1. Well adult exam - Encouraged a healthy diet low in cholesterol and saturated fats. - Encouraged regular exercise. 2. Vitamin D deficiency - Comprehensive metabolic panel - Vitamin D Deficiency Screening (Vit D 25) - Will notify of blood work results and provide recommendations accordingly. 3. Primary hypertension - Comprehensive metabolic panel - Stable with Lisinopril. Will continue current treatment plan. 4. Osteoarthritis of both knees, unspecified osteoarthritis type - Comprehensive metabolic panel - Stable with Meloxicam. Will continue current treatment plan. - Follow up with specialist as scheduled. 5. Class 2 obesity due to excess calories without serious comorbidity with body mass index (BMI) of 36.0 to 36.9 in adult - Comprehensive metabolic panel - Encouraged healthy diet and regular exercise. 6. Irritable bowel syndrome, unspecified type - Comprehensive metabolic panel - Stable. Follow up with specialist as directed. 7. Gastroesophageal reflux disease, unspecified whether esophagitis present - Comprehensive metabolic panel - Stable. Follow up with specialist as directed. 8. Mild intermittent asthma without complication - Comprehensive metabolic panel - Stable with PRN Albuterol. Will continue current treatment plan. 9. Depressive disorder - Comprehensive metabolic panel - Stable with Prozac and Wellbutrin. Will continue current treatment plan. 10. Anxiety - Comprehensive metabolic panel - Stable with Prozac and Wellbutrin. Will continue current treatment plan. 11. Left flank pain - Comprehensive metabolic panel - Will follow up with specialist as directed and have imaging completed today as scheduled. 12. Left lower quadrant abdominal pain - Comprehensive metabolic panel - Will follow up with specialist as directed and have imaging completed today as scheduled. 13. Screening for diabetes mellitus - Comprehensive metabolic panel - Will notify of blood work results. 14. Screening for lipoid disorders - Lipid panel - Will notify of blood work results. 15. Need for vaccination with 20-polyvalent pneumococcal conjugate vaccine - Pneumococcal conjugate vaccine 20-valent IM (PREVNAR 20) - VIS provided in AVS. Marcelino received counseling on the following healthy behaviors: continue current medications Patient given educational materials on: Prevnar 20 immunization Discussed use, benefit, and side effects of prescribed medications. Barriers to medication compliance addressed. All patient questions answered. Pt voiced understanding. Follow Up: Follow up in about 6 months (around 05/12/2024) for medication maintenance. Orders Placed This Encounter Procedures Pneumococcal conjugate vaccine 20-valent IM (PREVNAR 20) Lipid panel Standing Status: Future Number of Occurrences: 1 Standing Expiration Date: 11/09/2024 Comprehensive metabolic panel Standing Status: Future Number of Occurrences: 1 Standing Expiration Date: 11/09/2024 Vitamin D Deficiency Screening (Vit D 25) Standing Status: Future Number of Occurrences: 1 Standing Expiration Date: 11/09/2024 TERE Chung CNP 11/10/2023 10:24 AM documented in this encounter [facility] 10-27-2023 Telephone encounter Note Thank you Christa, I will cancel the US. Lauren [facility] 10-27-2023 Miscellaneous Notes Thank you Christa, I will cancel the US. Lauren She just had a ct scan. She no longer needs an ultrasound Christa, You said to get a US and NM kidney flow and function - do you want both or just one? Also you need to cancel the order that you put in procedures. Thanks, Lauren Order placed. Please place order under imaging I can then can then call to schedule lasix renal scan Zarina Valverde documented in this encounter [facility] 10-27-2023 Telephone encounter Note She just had a ct scan. She no longer needs an ultrasound [facility] 10-27-2023 Note Christa, You said to get a US and NM kidney flow and function - do you want both or just one? Also you need to cancel the order that you put in procedures. Thanks, Lauren [facility] 10-27-2023 Telephone encounter Note Christa, You said to get a US and NM kidney flow and function - do you want both or just one? Also you need to cancel the order that you put in procedures. Thanks, Lauren [facility] 10-27-2023 Telephone encounter Note Order placed. [facility] 10-27-2023 Telephone encounter Note Please place order under imaging I can then can then call to schedule lasix renal scan Zarina Valverde T [facility] 10-20-2023 History of Presen t illness Narrative Images from the original note were not included. Christa Wong APRN 10/20/2023 at 2:35 PM Urology Office Visit [facility] [address] [facility] [address] Dept: [phone] Dept Loc: [phone] The patient, Ms. Araiza is a 47 y.o. female. Their identity was verified by name and date of . Those on the call: Patient Marcelino Araiza has consented to this virtual visit telehealth encounter. Patient was seen today via Telehealth by agreement and consent. I used the following Telehealth technology: Audio and video capabilities. Patient location: Patient Location: Home. This patient encounter is appropriate and reasonable under the circumstances given the patient's particular presentation at this time. The patient has been advised of the potential risks and limitations of this mode of treatment (including but not limited to the absence of in-person examination) and has agreed to be treated in a remote fashion in spite of them. Any and all of the patient's/patient's family's questions on this issue have been answered and I have made no promises or guarantees to the patient. The patient has also been advised to contact this office for worsening conditions or problems, and seek emergency medical treatment and/or call 911 if the patient deems either necessary. The patient stated that they are currently in the [facility]. If the patient is a minor, permission has been obtained by the parent or guardian for the patient to receive medical care at this visit. Length of Visit: I affirm this is a visit with an established patient who has not had a related appointment within my department in the past 7 days or scheduled within the next 24 hours. Total Time: 11-20 were spent on the digital evaluation and management of this patient.. PATIENT NAME: Marcelino Araiza DATE OF : 1975 REFERRING PROVIDER: Cachorro Vides DO PCP: Naga Jin MD TODAY'S DATE: 10/20/2023 CHIEF COMPLAINT: Chief Complaint Patient presents with Nephrolithiasis Visit type: Established patient Assessment and Plan: Diagnosis Plan 1. Left flank pain [facility] 2. Hematuria, unspecified type [facility] Addressed Flank pain: ? Stone passage given significant flank pain 10/17 UA- 0 RBC/HPF 10/14- UA 3-5 RBC/HPF Has had significant relief of pain since ER visit. Still with slight soreness. Recommend continuing fluids Complete Lasix scan as ordered previously. Doing significantly better today compared to prior visit. Follow Up: Christa Wong APRN [facility] HPI: Ms. Araiza is a 47 y.o. female who presents to the office regarding flank pain Records have been reviewed. Reports that her flank pain was significant over the weekend.flank pain progressively ED visit 10/18/2023-left flank pain 10/17 UA- negative 10/14- UA 3-5 RBC/HPF Creat- 0.77 GFR > 90.0 Feels that she believes she passed a stone prior to CT scan.She did see brown particles that looked like a stone She did have significant relief of pain and stronger urination thereafter. Today: Stream is stronger with complete bladder emptying, Frequency , and Nocturia x1 Denies: Urgency, Splitting/ Spraying, Hesitancy, Dysuria, Intermittency, Hematuria, UUI, and KAMRYN Urine is clear now Review of Systems: All pertinent positives and negatives per HPI as stated above. 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 10/07/2022 Past Surgical History: Procedure Laterality Date BIOPSY (HISTORICAL) Bilateral bladder biospy CYSTOSCOPY W/ URETERAL STENT PLACEMENT Allergies Allergen Reactions Seasonal Itching Ofloxacin Swelling Severe swelling Medications Current Outpatient Medications Medication Instructions albuterol (2.5 MG/3ML) 0.083% nebulizer solution Nebulization, Every 6 hours PRN albuterol 108 (90 Base) MCG/ACT inhaler 2 puffs, Inhalation, Every 6 hours PRN azithromycin (Zithromax) 250 MG tablet Take 2 tabs (500 mg) on day 1, and take 1 tab (250 mg) on days 2 through 5 buPROPion XL (WELLBUTRIN XL) 300 mg, Oral, Daily, Do not crush, chew, or split. cephalexin (Keflex) 250 MG capsule TAKE 1 CAPSULE BY MOUTH ONCE DAILY AFTER INTERCOURSE cephalexin (KEFLEX) 500 mg, Oral, 3 times daily cholecalciferol (VITAMIN D-3) 2,000 Units, Oral, Daily dicyclomine (BENTYL) 10 mg, Oral, 3 times daily FLUoxetine (PROZAC) 40 mg, Oral, Daily, Take with 20 mg for a total of 60 mg FLUoxetine (PROZAC) 20 mg, Oral, Daily, Take with 40 mg dose for a total of 60 mg fluticasone (Flonase) 50 MCG/ACT nasal spray 1 spray, Each Nostril, Daily, Shake gently. Before first use, prime pump. After use, clean tip and replace cap. lisinopril 5 mg, Oral, Daily meloxicam (MOBIC) 15 mg, Oral, Daily bigqingefwxt-pwna-pqndhbzr-folic acid (Centrum) chewable tablet 1 tablet, Oral, Daily ondansetron (ZOFRAN) 4 mg, Oral, Every 8 hours PRN ondansetron ODT (ZOFRAN-ODT) 4 mg, Oral, Every 8 hours PRN pantoprazole (PROTONIX) 40 mg, Oral, Daily before breakfast, Do not crush, chew, or split. trolamine salicylate (Aspercreme) 10 % cream Topical, As needed vitamin C 500 mg, Oral, Daily Vitals: Virtual visit Physical Exam: Constitutional: General: Patient is not in acute distress. Nontoxic appearing. Appearance: Patient is well-developed. Patient not ill-appearing or toxic-appearing. HENT: Head: Normocephalic. Eyes: General: Right eye: No discharge. Left eye: No discharge. Conjunctiva/sclera: Conjunctivae normal. Neurological: Mental Status: Patient is alert and oriented to person, place, and time. Psychiatric: Thought Content: Thought content normal. Judgment: Judgment normal. Pertinent Labs: CBC: Lab Results Component Value Date WBC 6.5 10/18/2023 HGB 14.5 10/18/2023 HCT 42.1 10/18/2023 MCV 90.0 10/18/2023 PLT 271 10/18/2023 CMP: Lab Results Component Value Date NA 136 10/18/2023 K 3.7 10/18/2023 CL 103 10/18/2023 CO2 25 10/18/2023 BUN 12 10/18/2023 CREATININE 0.77 10/18/2023 GLUCOSE 94 10/18/2023 ALT 17 10/18/2023 AST 24 10/18/2023 ALKPHOS 77 10/18/2023 Testosterone: No results found for: TESTOSTERONE PSA: No results found for: PSA Hemoglobin A1C: Lab Results Component Value Date HGBA1C 5.2 04/28/2023 URINALYSIS: Lab Results Component Value Date COLORU Colorless 10/18/2023 CLARITYU Clear 10/18/2023 KETONESU Negative 10/18/2023 PROTUR Negative 10/18/2023 UROBILINOGEN Normal 10/18/2023 Imaging: [facility] Name[facility]ARCEL[facility] 1975 [id number] Exam Date/Time: 10/18/2023 14:40 Procedure: CT ABDOMEN PELVIS WO IV CONTRAST Ordering Provider: VIDES EMILIE Reason For Exam: Flank pain, kidney stone suspected CT ABDOMEN AND PELVIS WITHOUT CONTRAST CLINICAL INDICATION: Left flank pain Technique: Axial CT images were obtained of the abdomen and pelvis without the use of intravenous contrast. Images were reformatted in coronal and sagittal projections. Oral contrast: Not given Dose reduction was employed with automated exposure control. COMPARISON: None. FINDINGS: Evaluation of solid organs is limited by lack of contrast administration. Lung bases: No pleural effusion or focal consolidation. Chest wall: Unremarkable. Liver: The liver is normal in size and contour. No focal hepatic lesions identified. Biliary system: The biliary system is not dilated. Postsurgical changes compatible with cholecystectomy are noted. Spleen: The spleen is normal in size and contour. Pancreas: No significant abnormality. Adrenal glands: No significant abnormality. Kidneys/ Ureter: The bilateral kidneys are normal in size and contour. No evidence of hydroureteronephrosis. No evidence of nephrolithiasis. No evidence of focal renal lesions. Bladder: The urinary bladder is decompressed, limiting detailed evaluation. Pelvic organs: No masses or other significant abnormalities seen. Multiple pelvic phleboliths noted. Bowel: Esophagus is unremarkable. The stomach is unremarkable. The small bowel is of normal caliber throughout without evidence of wall thickening or obstruction. The appendix is unremarkable. The large bowel is without evidence of dilatation or thickening. Mesentery/Intraperitoneum: No intraperitoneal free fluid or air is seen. Mesentery is normal in appearance. Lymph nodes: No lymphadenopathy Vasculature: The abdominal aorta is normal in caliber without evidence of aneurysmal dilatation. The venous vasculature appears grossly unremarkable. Abdominal wall: The abdominal wall soft tissues appear unremarkable. Osseous structures: No suspicious osseous lesions identified. Mild degenerative changes of the lumbar spine are observed. IMPRESSION: 1. No acute abdominopelvic process identified. 2. No evidence of hydronephrosis or nephrolithiasis. Procedure: N/A An electronic signature was used to authenticate this note. Please note that portions of this chart were dictated using Yandex voice recognition software. It is possible that typos and/or omissions and/or substitutions of words and/or phrases may exist, which may alter the intended meaning of the dictating provider. documented in this encounter [facility] 10-18-2023 Hospital Discharg e instructions Cachorro Vides DO - 10/18/2023 3:44 PM EDT Keep your scheduled follow-up appointments and testing with urology. Your workup today showed you have blood in your urine, but no UTI. You do not have any enlargement of your kidney or kidney stones. Return to the emergency department if you develop fever, recurrent vomiting, worsening pain, or if you have other concerns. The following attachments cannot be sent through Care Everywhere.Flank Pain ED (Tongan)documented in this encounter [facility] 10-18-2023 Emergency department Note Pt to room 4 with c/o left flank pain since Wednesday. Pt describes pain as constant pain that waxes and wanes in intensity with no modifying factors. Pt states pain wraps around into front abdominal area. Pt denies any known hematuria, dysuria. Pt repors that she has a history of kidney problems and seen by urology last month with a stent in left ureter placed for a short period of time but was unable to tolerate. Pt denies any fevers. Reports having some nausea and general sense of unwell. documented in this encounter [facility] 10-18-2023 Emergency department Triage note Pt to room 4 with c/o left flank pain since Wednesday. Pt describes pain as constant pain that waxes and wanes in intensity with no modifying factors. Pt states pain wraps around into front abdominal area. Pt denies any known hematuria, dysuria. Pt repors that she has a history of kidney problems and seen by urology last month with a stent in left ureter placed for a short period of time but was unable to tolerate. Pt denies any fevers. Reports having some nausea and general sense of unwell. [facility] 10-15-2023 History of Presen t illness Narrative Images from the original note were not included. Christa Wong, TERE 10/27/2023 at 8:39 AM Urology Office Visit [facility] [address] [facility] [address] Dept: [phone] Dept Loc: [phone] The patient, Ms. Araiza is a 47 y.o. female. Their identity was verified by name and date of . Those on the call: Patient Marcelino Araiza has consented to this virtual visit telehealth encounter. Patient was seen today via Telehealth by agreement and consent. I used the following Telehealth technology: Audio and video capabilities. Patient location: Patient Location: Home. This patient encounter is appropriate and reasonable under the circumstances given the patient's particular presentation at this time. The patient has been advised of the potential risks and limitations of this mode of treatment (including but not limited to the absence of in-person examination) and has agreed to be treated in a remote fashion in spite of them. Any and all of the patient's/patient's family's questions on this issue have been answered and I have made no promises or guarantees to the patient. The patient has also been advised to contact this office for worsening conditions or problems, and seek emergency medical treatment and/or call 911 if the patient deems either necessary. The patient stated that they are currently in the state [facility]. If the patient is a minor, permission has been obtained by the parent or guardian for the patient to receive medical care at this visit. Length of Visit: I affirm this is a visit with an established patient who has not had a related appointment within my department in the past 7 days or scheduled within the next 24 hours. Total Time: 11-20 were spent on the digital evaluation and management of this patient.. PATIENT NAME: Marcelino Araiza DATE OF : 1975 REFERRING PROVIDER: Ashley Gomez APRN - * PCP: Naga Jin MD TODAY'S DATE: 10/27/2023 CHIEF COMPLAINT: Chief Complaint Patient presents with Blood in Urine Impression/Plan: Marcelino was seen today for blood in urine. Diagnoses and all orders for this visit: Other hydronephrosis (Primary) - NM Renal Function Mag 3 with Lasix; Future - NM kidney flow/function w/wo lasix; Future Gross hematuria - [facility] - US retroperitoneum; Future - Cancel: Urine culture; Future - Cancel: Urine culture - Cancel: Complete Urinalysis; Future - Cancel: Complete Urinalysis - NM Renal Function Mag 3 with Lasix; Future - Complete Urinalysis; Future - Urine culture; Future - NM kidney flow/function w/wo lasix; Future Left lower quadrant abdominal pain - [facility] U[facility] - US retroperitoneum; Future - Cancel: Urine culture; Future - Cancel: Urine culture - Cancel: Complete Urinalysis; Future - Cancel: Complete Urinalysis - NM Renal Function Mag 3 with Lasix; Future - Complete Urinalysis; Future - Urine culture; Future - NM kidney flow/function w/wo lasix; Future Addressed gross hematuria/flank pain: Renal US today Due to flank pain. R/o hydronephrosis given past OR note Reviewed prior CT Urogram from [facility] Reviewed prior cystoscopy and biopsy Squamous metaplasia Urine culture today Lasix renal scan Ordered given narrowing of left ureter. Likely related to edema per note The patient was instructed to call the office or go to the nearest ER if worsening symptoms such as fever > 101F, inability to urinate, intractable nausea or vomiting, or uncontrolled pain. The patient verbalizes understanding. Follow Up: ABHIJEET Wong, TERE [facility] Subjective: Ms. Araiza is a 47 y.o. female who presents to the office regarding gross hematuria Records have been reviewed. HPI Presents today for gross hematuria and flank pain. Flank pain is accompanied with nausea, frequency, and urgency Denies fever, chills, dysuria. She is here for a second opinion given her below history Prior workup has been: urine culture, CT, and urine cytology Gross hematuria history: Pt evaluated by Dr. Ashley Fair for gross hematuria S/P Cytology- negative for high grade urothelial carcinoma, fungal species. 06/10/2023 -Cystoscopy-squamous metaplasia 06/11/2023 OR cystoscopy-white patchy area on the trigone- 1 cm diameter - biopsy completed negative- squamous metaplasia 07/04/2023- CTAP- negative 07/06/2023- cystoscopy, bilateral retrograde pyelogram, attempted left ureteroscopy -unsuccessful left ureteroscopy due to narrow ureter that was unable to accomodate scope secondary to edema - 6x 26 stent was placed. ---- unable to tolerate stent therefore was removed later that day. Evaluated by [facility] urology as well in Api -CT Urogram ordered given persistent pain and hematuria - negative - discussed following up PRN Review of Systems All pertinent positives and negatives per HPI as stated above. Social History Social History Tobacco Use Smoking status: Never Smokeless tobacco: Never Vaping Use Vaping status: Never Used Substance Use Topics Alcohol use: Yes Comment: on occasion Drug use: Never Past Medical History: 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 10/07/2022 Past Surgical History: Past Surgical History: Procedure Laterality Date BIOPSY (HISTORICAL) Bilateral bladder biospy CYSTOSCOPY W/ URETERAL STENT PLACEMENT Medications Current Outpatient Medications Medication Instructions albuterol (2.5 MG/3ML) 0.083% nebulizer solution Nebulization, Every 6 hours PRN albuterol 108 (90 Base) MCG/ACT inhaler 2 puffs, Inhalation, Every 6 hours PRN azithromycin (Zithromax) 250 MG tablet Take 2 tabs (500 mg) on day 1, and take 1 tab (250 mg) on days 2 through 5 buPROPion XL (WELLBUTRIN XL) 300 mg, Oral, Daily, Do not crush, chew, or split. cephalexin (Keflex) 250 MG capsule TAKE 1 CAPSULE BY MOUTH ONCE DAILY AFTER INTERCOURSE cephalexin (KEFLEX) 500 mg, Oral, 3 times daily cholecalciferol (VITAMIN D-3) 2,000 Units, Oral, Daily dicyclomine (BENTYL) 10 mg, Oral, 3 times daily FLUoxetine (PROZAC) 40 mg, Oral, Daily, Take with 20 mg for a total of 60 mg FLUoxetine (PROZAC) 20 mg, Oral, Daily, Take with 40 mg dose for a total of 60 mg fluticasone (Flonase) 50 MCG/ACT nasal spray 1 spray, Each Nostril, Daily, Shake gently. Before first use, prime pump. After use, clean tip and replace cap. lisinopril 5 mg, Oral, Daily meloxicam (MOBIC) 15 mg, Oral, Daily abiierdwncht-srgk-vubeimyg-folic acid (Centrum) chewable tablet 1 tablet, Oral, Daily ondansetron (ZOFRAN) 4 mg, Oral, Every 8 hours PRN pantoprazole (PROTONIX) 40 mg, Oral, Daily before breakfast, Do not crush, chew, or split. trolamine salicylate (Aspercreme) 10 % cream Topical, As needed vitamin C 500 mg, Oral, Daily Vitals: There were no vitals taken for this visit. Physical Exam Physical Exam: Constitutional: General: Patient is not in acute distress. Nontoxic appearing. Appearance: Patient is well-developed. Patient not ill-appearing or toxic-appearing. HENT: Head: Normocephalic. Eyes: General: Right eye: No discharge. Left eye: No discharge. Conjunctiva/sclera: Conjunctivae normal. Neurological: Mental Status: Patient is alert and oriented to person, place, and time. Psychiatric: Thought Content: Thought content normal. Judgment: Judgment normal. Labs: HEMOGLOBIN Date Value Ref Range Status 10/30/2022 14.3 11.7 - 15.5 g/dL Final Hemoglobin Date Value Ref Range Status 10/18/2023 14.5 11.7 - 16.0 g/dL Final HEMATOCRIT Date Value Ref Range Status 10/30/2022 43.6 35.0 - 45.0 % Final Hematocrit Date Value Ref Range Status 10/18/2023 42.1 35.0 - 47.0 % Final Lab Results Component Value Date COLORU Colorless 10/18/2023 CLARITYU Clear 10/18/2023 KETONESU Negative 10/18/2023 PROTUR Negative 10/18/2023 UROBILINOGEN Normal 10/18/2023 Radiology Review: IMPRESSION: No nephrolithiasis, ureterolithiasis, gross obstructive uropathy, or suspicious renal lesion. Procedure: N/A An electronic signature was used to authenticate this note. Please note that portions of this chart were dictated using Yandex voice recognition software. It is possible that typos and/or omissions and/or substitutions of words and/or phrases may exist, which may alter the intended meaning of the dictating provider. documented in this encounter [facility] 09-15-2023 History of Presen t illness Narrative Images from the original note were not included. 09/15/2023 Marcelino Araiza (: 1975) is a 47 y.o. female , Established patient, here for evaluation of the following chief complaint(s): Follow-up, Depression, and Anxiety Patient was identified and seen today via Telehealth by agreement and consent. I used the following Telehealth technology: Audio and video capabilities. Patient location: Patient Location: Home. This patient encounter is appropriate and reasonable under the circumstances: Behavioral Health . The patient has been advised of the potential risks and limitations of this mode of treatment (including but not limited to the absence of in-person examination) and has agreed to be treated in a remote fashion in spite of them. Any and all of the patient's/patient's family's questions on this issue have been answered and I have made no promises or guarantees to the patient. The patient has also been advised to contact this office for worsening conditions or problems, and seek emergency medical treatment and/or call 911 if the patient deems either necessary. The patient stated that they are currently in the state [facility]. If the patient is a minor, permission has been obtained by the parent or guardian for the patient to receive medical care at this visit. ASSESSMENT/PLAN: 1. Depressive disorder - FLUoxetine (PROzac) 40 MG capsule; Take 1 capsule (40 mg) by mouth daily. Take with 20 mg for a total of 60 mg, Starting Wed09/15/2023, No Print - FLUoxetine (PROzac) 20 MG capsule; Take 1 capsule (20 mg) by mouth daily. Take with 40 mg dose for a total of 60 mg, Starting Wed09/15/2023, No Print - Stable. Would like to continue on 60 mg dose at this time and follow up in October as scheduled. - Continue Wellbutrin as prescribed. 2. Anxiety - FLUoxetine (PROzac) 40 MG capsule; Take 1 capsule (40 mg) by mouth daily. Take with 20 mg for a total of 60 mg, Starting Wed09/15/2023, No Print - FLUoxetine (PROzac) 20 MG capsule; Take 1 capsule (20 mg) by mouth daily. Take with 40 mg dose for a total of 60 mg, Starting Wed09/15/2023, No Print - Stable. Would like to continue on 60 mg dose at this time and follow up in October as scheduled. - Continue Wellbutrin as prescribed. Follow up in 7 weeks (on 11/03/2023) for Next scheduled follow-up. SUBJECTIVE/OBJECTIVE: JUSTO Elroy Cochran presents today for a video virtual visit for follow up on her depression and anxiety. She had the dose of her Prozac increased at her previous visit and started to develop headaches. Cut her dose back down to 60 mg and headaches improved. Continues to take her Wellbutrin as prescribed. Still notices a lack of motivation and desire to do things. Denies thoughts of self-harm or suicidal ideations. Review of Systems Psychiatric/Behavioral: Positive for dysphoric mood. Negative for self-injury and suicidal ideas. The patient is nervous/anxious. There were no vitals filed for this visit. There is no height or weight on file to calculate BMI. Physical Exam Constitutional: General: She is not in acute distress. HENT: Head: Normocephalic and atraumatic. Pulmonary: Effort: Pulmonary effort is normal. Comments: Speaking in full sentences. Neurological: Mental Status: She is alert and oriented to person, place, and time. Psychiatric: Mood and Affect: Mood normal. Behavior: Behavior normal. Thought Content: Thought content normal. Judgment: Judgment normal. An electronic signature was used to authenticate this note. TERE Chung CNP 09/15/2023 11:07 AM documented in this encounter [facility] 08-30-2023 Telephone encounter Note Reached out to pt, pt prefers [facility]. Scheduled first available with Dr. Holden on 11/10/23 in the [facility] and placed on the wait list in case of a cancellation. [facility] 08-30-2023 Miscellaneous Notes Reached out to pt, pt prefers [facility]. Scheduled first available with Dr. Holden on 11/10/23 in the [facility] and placed on the wait list in case of a cancellation. Name of Caller: Marcelino Contact Reason for Appointment: Patient called to schedule an appointment per referral. R31.0 (ICD-10-CM) - Gross hematuria R10.32 (ICD-10-CM) - Left lower quadrant abdominal pain Please advise Office Name: Urology documented in this encounter [facility] 08-27-2023 Telephone encounter Note Name of Caller: Marcelino Contact Reason for Appointment: Patient called to schedule an appointment per referral. R31.0 (ICD-10-CM) - Gross hematuria R10.32 (ICD-10-CM) - Left lower quadrant abdominal pain Please advise Office Name: Urology [facility] 08-27-2023 History of Presen t illness Narrative Images from the original note were not included. 08/27/2023 Marcelino Araiza (: 1975) is a 47 y.o. female , Established patient, here for evaluation of the following chief complaint(s): Follow-up, Depression, and Anxiety Patient was identified and seen today via Telehealth by agreement and consent. I used the following Telehealth technology: Audio and video capabilities. Patient location: Patient Location: Home. This patient encounter is appropriate and reasonable under the circumstances: Behavioral Health . The patient has been advised of the potential risks and limitations of this mode of treatment (including but not limited to the absence of in-person examination) and has agreed to be treated in a remote fashion in spite of them. Any and all of the patient's/patient's family's questions on this issue have been answered and I have made no promises or guarantees to the patient. The patient has also been advised to contact this office for worsening conditions or problems, and seek emergency medical treatment and/or call 911 if the patient deems either necessary. The patient stated that they are currently in the [facility]. If the patient is a minor, permission has been obtained by the parent or guardian for the patient to receive medical care at this visit. ASSESSMENT/PLAN: 1. Depressive disorder - FLUoxetine (PROzac) 40 MG capsule; Take 2 capsules (80 mg) by mouth daily., Starting 08/27/2023, Normal - Improving but not at goal. Will increase dose to 80 mg daily and do another close follow up in 2 weeks. 2. Anxiety - FLUoxetine (PROzac) 40 MG capsule; Take 2 capsules (80 mg) by mouth daily., Starting 08/27/2023, Normal - Improving but not at goal. Will increase dose to 80 mg daily and do another close follow up in 2 weeks. Follow up in about 2 weeks (around 09/10/2023). SUBJECTIVE/OBJECTIVE: JUSTO Cochran presents today for a video virtual visit for follow up on her depression and anxiety. Had the dose of her Prozac increased to 60 mg at her previous appointment and states she has noticed some improvement but is still not where she wants to be. Still struggles with lack of motivation and feelings of sadness. Has noticed some improvement with the dose increase. Denies any side effects with the higher dose and is interested in the increasing the dose a little more. Review of Systems Cardiovascular: Negative for chest pain. Psychiatric/Behavioral: Positive for dysphoric mood. Negative for self-injury and suicidal ideas. The patient is nervous/anxious. There were no vitals filed for this visit. There is no height or weight on file to calculate BMI. Physical Exam Constitutional: General: She is not in acute distress. Appearance: She is not ill-appearing. Pulmonary: Effort: Pulmonary effort is normal. Comments: Speaking in full sentences. Skin: Coloration: Skin is not pale. Findings: No erythema. Neurological: Mental Status: She is alert and oriented to person, place, and time. Psychiatric: Mood and Affect: Mood normal. Behavior: Behavior normal. Thought Content: Thought content normal. Judgment: Judgment normal. An electronic signature was used to authenticate this note. TERE Chung CNP 08/27/2023 9:55 AM documented in this encounter [facility] 08-13-2023 History of Presen t illness Narrative Patient verified by last name and . Images from the original note were not included. 08/13/2023 Marcelino Araiza (: 1975) is a 47 y.o. female , Established patient, here for evaluation of the following chief complaint(s): Depression, Anxiety, Follow-up (States she would like to discuss getting a referral to a different Urologist. /Would like to see who would be best to go with through [facility]. ), and Virtual Visit Patient was identified and seen today via Telehealth by agreement and consent. I used the following Telehealth technology: Audio and video capabilities. Patient location: Patient Location: Home. This patient encounter is appropriate and reasonable under the circumstances: Behavioral Health . The patient has been advised of the potential risks and limitations of this mode of treatment (including but not limited to the absence of in-person examination) and has agreed to be treated in a remote fashion in spite of them. Any and all of the patient's/patient's family's questions on this issue have been answered and I have made no promises or guarantees to the patient. The patient has also been advised to contact this office for worsening conditions or problems, and seek emergency medical treatment and/or call 911 if the patient deems either necessary. The patient stated that they are currently in the [facility]. If the patient is a minor, permission has been obtained by the parent or guardian for the patient to receive medical care at this visit. ASSESSMENT/PLAN: 1. Depressive disorder - FLUoxetine (PROzac) 20 MG capsule; Take 1 capsule (20 mg) by mouth daily. Take with 40 mg dose for a total of 60 mg, Starting Wed08/13/2023, Normal - Not at goal. Will increase Prozac to 60 mg daily and do a close follow up in 2 weeks. 2. Anxiety - FLUoxetine (PROzac) 20 MG capsule; Take 1 capsule (20 mg) by mouth daily. Take with 40 mg dose for a total of 60 mg, Starting Wed08/13/2023, Normal - Not at goal. Will increase Prozac to 60 mg daily and do a close follow up in 2 weeks. 3. Gross hematuria - [facility] 4. Left lower quadrant abdominal pain - [facility] 5. Osteoarthritis of both knees, unspecified osteoarthritis type - meloxicam (Mobic) 15 MG tablet; Take 1 tablet (15 mg) by mouth daily., Starting Wed08/13/2023, Normal - Stable with Meloxicam. Will continue current treatment plan. Follow up in about 2 weeks (around 08/27/2023) for follow up on depression and anxiety. SUBJECTIVE/OBJECTIVE: JUSTO Cochran presents today for a video virtual visit with concerns of poorly controlled depression and anxiety. Has been dealing with a lot of health stressors and feels this has contributed to her worsening symptoms. Takes her Prozac and Wellbutrin daily as prescribed. Feels she has no motivation and is tired all of the time. Denies suicidal ideations. Is also wanting a referral to a different urologist due to ongoing left lower abdominal pain. Was recently admitted due to gross hematuria and feels like symptoms have never resolved. Is requesting a refill on her Meloxicam for her arthritis. States this works well for her. Review of Systems Constitutional: Negative for chills and fever. Respiratory: Negative for chest tightness and shortness of breath. Gastrointestinal: Positive for abdominal pain (LLQ). Musculoskeletal: Positive for arthralgias. Psychiatric/Behavioral: Positive for dysphoric mood. Negative for self-injury and suicidal ideas. The patient is nervous/anxious. There were no vitals filed for this visit. There is no height or weight on file to calculate BMI. Physical Exam Constitutional: General: She is not in acute distress. Appearance: She is not ill-appearing or diaphoretic. HENT: Head: Normocephalic and atraumatic. Pulmonary: Effort: Pulmonary effort is normal. Comments: Speaking in full sentences. Skin: Coloration: Skin is not pale. Findings: No erythema. Neurological: Mental Status: She is alert and oriented to person, place, and time. Psychiatric: Mood and Affect: Mood normal. Behavior: Behavior normal. Thought Content: Thought content normal. Judgment: Judgment normal. An electronic signature was used to authenticate this note. TERE Chung CNP 08/13/2023 1:36 PM documented in this encounter [facility] 08-10-2023 Telephone encounter Note Patient states she wants this done at [facility]. Is there a way to note this so [facility] central scheduling doesn't call? [facility] 08-10-2023 Miscellaneous Notes Patient states she wants this done at [facility]. Is there a way to note this so [facility] central scheduling doesn't call? We have been unable to reach your patient to schedule their testing. Test Name: US pelvis transvaginal 1st attempt//mychart message//08.07.23 KGK 2nd attempt LVM 08/10/23 CP deferred documented in this encounter [facility] 08-10-2023 Telephone encounter Note We have been unable to reach your patient to schedule their testing. Test Name: US pelvis transvaginal 1st attempt//mychart message//08.07.23 KGK 2nd attempt LVM 08/10/23 CP deferred [facility] 07-16-2023 History of Presen t illness Narrative Patient verified by last name and . Ashley, Look at Cytology report from 07/08/2023 Went to OBGYN yesterday, found that she has Elvira in her bladder. Review Noticing that she is not urinating as frequently as she would usually since ER visit. Images from the original note were not included. 07/16/2023 Marcelino Araiza (: 1975) is a 47 y.o. female , Established patient, here for evaluation of the following chief complaint(s): ER Follow-up (Went to [place] ER, was bleeding badly from her urethra, had really bad clots on Wednesday. When she gave a urine sample, it came out a pure blood. Had CT scan. Got admitted to the Hospital Wednesday morning, had bled all day. Had surgery Wednesday, to find where bleeding was coming from. Went through left ureter and was completely swollen and narrow, placed a stent. The stent was taken out on Wednesday. Went to [facility] to get a second opinion, had a CT scan done again, urologist could not find anything. ) Patient was identified and seen today via Telehealth by agreement and consent. I used the following Telehealth technology: Audio and video capabilities. Patient location: Patient Location: Home. This patient encounter is appropriate and reasonable under the circumstances: patient schedule and appointment availability . The patient has been advised of the potential risks and limitations of this mode of treatment (including but not limited to the absence of in-person examination) and has agreed to be treated in a remote fashion in spite of them. Any and all of the patient's/patient's family's questions on this issue have been answered and I have made no promises or guarantees to the patient. The patient has also been advised to contact this office for worsening conditions or problems, and seek emergency medical treatment and/or call 911 if the patient deems either necessary. The patient stated that they are currently in the [facility]. If the patient is a minor, permission has been obtained by the parent or guardian for the patient to receive medical care at this visit. ASSESSMENT/PLAN: 1. Left lower quadrant abdominal pain - Not worsening or improving. Will follow up with specialists as scheduled. - Discussed signs and symptoms warranting immediate attention- verbalized understanding. - Will complete return to work forms and fax. 2. Gross hematuria - Not worsening or improving. Will follow up with specialists as scheduled. - Discussed signs and symptoms warranting immediate attention- verbalized understanding. - Will complete return to work forms and fax. Follow up in 4 months (on 11/03/2023) for Next scheduled follow-up or sooner if needed. SUBJECTIVE/OBJECTIVE: JUSTO Cochran presents today for a video virtual visit for follow up from a recent hospitalization due to clot hematuria and left abdomen/flank pain. Per recent documentation from urology: Patient had an episode of gross hematuria on 05/2023. She is s/p cystoscopy with bladder biopsy and fulguration on 06/10/2023. MICROSCOPIC DIAGNOSIS Urinary bladder tumor, biopsy; Urothelial hyperplasia with squamous differentiation. Mild chronic inflammation. No evidence of malignancy. She reports hematuria again began on 07/01/23 and left flank pain. Saw local urologist (Dr. Ashley Fair) on 07/02/23- urine culture sent. Negative per patient report. CT abd/pel (07/04/23) with no acute findings or hydro per outside report She underwent a new cystoscopy, bilateral retrograde pyelograms, attempted left ureteroscopy, and left ureteral stent insertion on 07/05/23. Had subsequent removal of ureteral stent on 07/06/23 Had a recent urine culture collected on 07/14/23 with negative results. Is currently being treated for a yeast infection via urologist through [facility]. Is scheduled to follow back up with Dr. Fair on 08/04/23. May have a repeat scope for further evaluation. No clear cause of symptoms found so far with workup. Is scheduled to see a GI specialist in September as well. States symptoms are not fully resolved- still experiencing left flank pain but hematuria has resolved. Needs a form signed today clearing her to return to work. Denies other current health concerns or worries. See ROS for additional information. Review of Systems Constitutional: Negative for chills and fever. Respiratory: Negative for chest tightness and shortness of breath. Cardiovascular: Negative for chest pain. Gastrointestinal: Positive for abdominal pain (LLQ). Negative for abdominal distention, blood in stool, constipation, diarrhea, nausea and vomiting. Genitourinary: Negative for difficulty urinating, dysuria, flank pain, frequency, hematuria and urgency. Musculoskeletal: Positive for back pain (left lower back). There were no vitals filed for this visit. There is no height or weight on file to calculate BMI. Physical Exam Constitutional: General: She is not in acute distress. Appearance: She is not ill-appearing. HENT: Head: Normocephalic and atraumatic. Pulmonary: Effort: Pulmonary effort is normal. Comments: Speaking in full sentences. Skin: Coloration: Skin is not pale. Findings: No erythema. Neurological: Mental Status: She is alert and oriented to person, place, and time. Psychiatric: Mood and Affect: Mood normal. Behavior: Behavior normal. Thought Content: Thought content normal. Judgment: Judgment normal. An electronic signature was used to authenticate this note. TERE Chung CNP 07/16/2023 1:08 PM documented in this encounter [facility] 07-14-2023 Note [facility] Pap Smear Specimen Adequacy July 14, 2023 11:17am Comment . Satisfactory for evaluation. Endocervical and/or squamous metaplasticcells (endocervical component) are present. Comment on above: Satisfactory for garrett luation. Endocervical and/or squamous metaplasticcells (endocervical component) are present. 07-12-2023 Note HNO ID: [id number] Author: YOJANA LARES MD Service: ? Author Type: Physician Type: Progress Notes Filed: 07/12/2023 08:34 Note Text: [facility] NEW PATIENT HISTORY AND PHYSICAL EXAM PATIENT INFO: Marcelino Araiza 47 year old REFERRING M.D.: No referring provider defined for this encounter. PCP: Ashley Gomez NP, CHIEF CATALYST OPERATOR Date of Service: July 12, [address] Yary Carvajal for an opinion regarding left abdominal pain and hematuria and my final recommendations will be communicated back to the requesting physician by way of shared Medical record or letter via [place] mail. CHIEF COMPLAINT: Hematuria and left abdominal pain HPI: I have communicated my name and active licensure. The patient's identity and physical location were verified at the time of this visit. Either the patient or their legal chemical sales representative has been informed of the risks and benefits of -- and alternatives to -- treatment through a remote evaluation and consents to proceed with the evaluation remotely. 47 year old female with history of clot hematuria and left abdomen / flank pain who presents in for evaluation. Patient had an episode of gross hematuria in 05/2023. She is s/p cystoscopy with bladder biopsy and fulguration on 06/10/2023. MICROSCOPIC DIAGNOSIS Urinary bladder tumor, biopsy; Urothelial hyperplasia with squamous differentiation. Mild chronic inflammation. No evidence of malignancy. She reports hematuria again began on 07/01/23 and left flank pain. Saw local urologist (Dr. Ashley Fair) on 07/02/23- urine culture sent. Negative per patient report. CT abd/pel (07/04/23) with no acute findings or hydro per outside report She underwent a new cystoscopy, bilateral retrograde pyelograms, attempted left ureteroscopy, and left ureteral stent insertion on 07/05/23. Had subsequent removal of ureteral stent on 07/06/23 Resolution of prior hematuria Having persistent left suprapubic and left flank discomfort- some improvement since stent removed. No vomiting but intermittent nausea. No fevers/chills. No current hematuria. UA today: 3+ Hgb; >25 RBC; all other findings WNL States she had history of recurrent UTI's last year but this had subsided on its own. No issues with UTI's in the past year. Otherwise, no significant urologic history. She does not take any blood thinning medications. The patient is doing well today, she denies flank pain, fever, shaking chills, and gross hematuria at this time. Personal hx of stones: No I have reviewed CTU on 07/09/23 IMAGING: Imaging Reviewed. Radiology report may be copied below for ease of reference. CT abdomen/pelvis on 10/08/23 (pending radiology reading) No evidence of kidney stones, no evidence of filling defects, no evidence of hydronephrosis Urine Culture LABS: Creatinine Date Value Ref Range Status 10/16/2020 0.72 0.58 - 0.96 mg/dL Final 02/23/2014 0.72 0.70 - 1.40 mg/dL Final 02/16/2013 0.63 (L) 0.70 - 1.40 mg/dL Final URINALYSIS: Specific Sibley, Ur Date Value Ref Range Status 07/08/2023 1.018 1.005 - 1.030 Final Glucose, Urine Date Value Ref Range Status 07/08/2023 Negative Trace, Negative Final Bilirubin, Urine Date Value Ref Range Status 07/08/2023 Negative Negative Final Ketones, Urine Date Value Ref Range Status 07/08/2023 Negative Negative, Trace Final Hemoglobin/Blood,Ur Date Value Ref Range Status 07/08/2023 3+ (A) Negative, Trace Final Protein, Urine Date Value Ref Range Status 07/08/2023 Negative Trace, Negative Final Urobilinogen, Urine Date Value Ref Range Status 11/10/2014 0.2 Normal (<1.1) EU Final Nitrites Date Value Ref Range Status 07/08/2023 Negative Negative Final WBC, Urine Date Value Ref Range Status 07/08/2023 0-5 /HPF 0-5 /HPF Final HISTORIES PAST MEDICAL HISTORY Diagnosis Date Anxiety disorder [...] Cholecystectomy (lap, with cholangiogram), Dr. Flores COLONOSCOPY 10/2020 years ago EGD 11/07/2020 EXTRACTION, ERUPTED TOOTH OR EXPOSED ROOT (ELEVATION AND/OR FORCEPS REMOVAL) 1995 wisdom teeth PAST SURGICAL HISTORY OF 11/2019 uterine ablation TONSILLECTOMY PRIMARY/SECONDARY AGE 13/> 1998 Social History Tobacco Use Smoking status: Never Smokeless tobacco: Never Vaping Use Vaping Use: Never used Substance Use Topics Alcohol use: Yes Comment: socially Drug use: No ALLERGIES: ALLERGIES Allergen Reactions Ofloxacin Swelling Seaso (more content not included)... [facility] 07-12-2023 History of Present illness Narrative [facility] NEW PATIENT HISTORY AND PHYSICAL EXAM PATIENT INFO: Marcelino Araiza 47 year old REFERRING M.D.: No referring provider defined for this encounter. PCP: Ashley Gomez NP, CHIEF CATALYST OPERATOR Date of Service: July 12, [address] Yary Carvajal for an opinion regarding left abdominal pain and hematuria and my final recommendations will be communicated back to the requesting physician by way of shared Medical record or letter via [place] mail. CHIEF COMPLAINT: Hematuria and left abdominal pain HPI: I have communicated my name and active licensure. The patient's identity and physical location were verified at the time of this visit. Either the patient or their legal chemical sales representative has been informed of the risks and benefits of -- and alternatives to -- treatment through a remote evaluation and consents to proceed with the evaluation remotely. 47 year old female with history of clot hematuria and left abdomen / flank pain who presents in [facility] for evaluation. Patient had an episode of gross hematuria in 05/2023. She is s/p cystoscopy with bladder biopsy and fulguration on 06/10/2023. MICROSCOPIC DIAGNOSIS Urinary bladder tumor, biopsy; Urothelial hyperplasia with squamous differentiation. Mild chronic inflammation. No evidence of malignancy. She reports hematuria again began on 07/01/23 and left flank pain. Saw local urologist (Dr. Ashley Fair) on 07/02/23- urine culture sent. Negative per patient report. CT abd/pel (07/04/23) with no acute findings or hydro per outside report She underwent a new cystoscopy, bilateral retrograde pyelograms, attempted left ureteroscopy, and left ureteral stent insertion on 07/05/23. Had subsequent removal of ureteral stent on 07/06/23 Resolution of prior hematuria Having persistent left suprapubic and left flank discomfort- some improvement since stent removed. No vomiting but intermittent nausea. No fevers/chills. No current hematuria. UA today: 3+ Hgb; >25 RBC; all other findings WNL States she had history of recurrent UTI's last year but this had subsided on its own. No issues with UTI's in the past year. Otherwise, no significant urologic history. She does not take any blood thinning medications. The patient is doing well today, she denies flank pain, fever, shaking chills, and gross hematuria at this time. Personal hx of stones: No I have reviewed CTU on 07/09/23 IMAGING: Imaging Reviewed. Radiology report may be copied below for ease of reference. CT abdomen/pelvis on 10/08/23 (pending radiology reading) No evidence of kidney stones, no evidence of filling defects, no evidence of hydronephrosis Urine Culture LABS: Creatinine Date Value Ref Range Status 10/16/2020 0.72 0.58 - 0.96 mg/dL Final 02/23/2014 0.72 0.70 - 1.40 mg/dL Final 02/16/2013 0.63 (L) 0.70 - 1.40 mg/dL Final URINALYSIS: Specific Sibley, Ur Date Value Ref Range Status 07/08/2023 1.018 1.005 - 1.030 Final Glucose, Urine Date Value Ref Range Status 07/08/2023 Negative Trace, Negative Final Bilirubin, Urine Date Value Ref Range Status 07/08/2023 Negative Negative Final Ketones, Urine Date Value Ref Range Status 07/08/2023 Negative Negative, Trace Final Hemoglobin/Blood,Ur Date Value Ref Range Status 07/08/2023 3+ (A) Negative, Trace Final Protein, Urine Date Value Ref Range Status 07/08/2023 Negative Trace, Negative Final Urobilinogen, Urine Date Value Ref Range Status 11/10/2014 0.2 Normal (<1.1) EU Final Nitrites Date Value Ref Range Status 07/08/2023 Negative Negative Final WBC, Urine Date Value Ref Range Status 07/08/2023 0-5 /HPF 0-5 /HPF Final HISTORIES PAST MEDICAL HISTORY Diagnosis Date Anxiety disorder [...] Cholecystectomy (lap, with cholangiogram), Dr. Flores COLONOSCOPY 10/2020 years ago EGD 11/07/2020 EXTRACTION, ERUPTED TOOTH OR EXPOSED ROOT (ELEVATION AND/OR FORCEPS REMOVAL) 1995 wisdom teeth PAST SURGICAL HISTORY OF 11/2019 uterine ablation TONSILLECTOMY PRIMARY/SECONDARY AGE 13/> 1998 Social History Tobacco Use Smoking status: Never Smokeless tobacco: Never Vaping Use Vaping Use: Never used Substance Use Topics Alcohol use: Yes Comment: socially Drug use: No ALLERGIES: ALLERGIES Allergen Reactions Ofloxacin Swelling Seasonal Allergies Cough, Shortness of Breath MEDICATIONS: Current Outpatient Medications Medication Sig doxycycline (VIBRA-TABS) 100 mg tablet Take 1 tablet by mouth every 12 hours. (Patient not taking: Reported on 07/08/2023) oxyCODONE-acetaminophen (PERCOCET) 5-325 mg tablet TAKE 1 TABLET BY MOUTH EVERY 8 HOURS NEEDED FOR PAIN FOR 3 DAYS (Patient not taking: Reported on 07/08/2023) pantoprazole DR (PROTONIX) 40 mg tablet Take 1 tablet by mouth every afternoon. phenazopyridine (PYRIDIUM) 200 mg tablet Phentermine HCl 37.5 mg tablet Take 1 tablet (37.5 mg) by mouth every morning (before breakfast). BMI 36.49 (Patient not taking: Reported on 07/08/2023) valACYclovir (VALTREX) 1 gram tablet (Patient not taking: Reported on 07/08/2023) cephALEXin (KEFLEX) 500 mg capsule Take 500 mg by mouth two times a day. cephALEXin (KEFLEX) 250 mg capsule Take 250 mg by mouth daily at bedtime. benzonatate (TESSALON PERLES) 100 mg capsule Take 1-2 capsules by mouth three times daily as needed. omeprazole (PRILOSEC) 40 mg capsule Take 1 [...] (FLONASE) 50 mcg/actuation nasal spray Use 1 Needles in each nostril once daily. Cholestyramine, Bulk, powd 4 g twice daily. [...] hours as needed for Wheezing/Shortness of Breath. No current facility-administered medications for this visit. REVIEW OF SYSTEMS General: No weight loss, malaise or fevers., SEE HPI Respiratory: Negative for cough, wheezing or shortness of breath. Cardiovascular: Negative for chest pain, leg swelling or palpitations. Anticoagulation meds - No Gastrointestinal: left abdominal pain Bowel surgery No, IBS No Genitourinary: see HPI Musculoskeletal: Negative for joint pain or swelling, back pain or muscle pain. History of gout No Neuro: No history of headaches, syncope, paralysis, seizures or tremors History of CVA -No The remainder of the ROS was reviewed and was negative. PROBLEMS & PLAN: Left abdominal pain Recent hx of macroscopic hematuria, subsided No evidence of urinary pathology in repeated CTU Plan: I have discussed the CTU finding with the patient and explained her that there is no evidence of urinary pathology to explain her left flank pain, Pt understands Pt will have an appointment with her local GI specialist Pt will RTC to Urology just as needed The patient decided to proceed with the above plan. The patient was given the opportunity to have all questions answered and appeared to be satisfied with our discussion. Some elements of this note may be copied from previous versions, however, all data and information has been reviewed and verified and is accurate for today July 12, 2023 Yojana Lares MD Urology Associate Staff Electronically signed Medical Decision Making: Problems: Low: Stable chronic illness Data: Unique source(s) for external note(s) reviewed: 1 Unique test result(s) reviewed: 1 Independent interpretation of test from other physician/QHCP Risk: Moderate: Moderate risk from testing/treatment Medical Decision Making Level: 4 - Moderate documented in this encounter [facility] 07-09-2023 History of Present illness Narrative Radiology Service Progress Note DATE OF SERVICE: July 09, 2023 TIME: 4:11 PM PATIENT IDENTITY VERIFICATION COMPLETED USING TWO (2) STANDARD IDENTIFIERS: Name and Date of confirmed by patient verbally. FALL SCREENING: Has the patient had 2 falls in the last year or 1 fall with injury or currently using an Ambulatory Assistive Device (Walker, Cane, Wheelchair, Crutches, etc.)? No PATIENT GENDER DATA: Female. status: : No status: NO. PATIENT RELEVANT IMPLANT DATA REVIEWED: Yes PATIENT PRESENTS WITH AN IMPLANTABLE OR ATTACHED MOTION PICTURE PROJECTIONIST APPRENTICE: No ALLERGIES: Reviewed and unchanged CONTRAST ALLERGY: NO. EXAM: CT -CONTRAST INDUCED NEPHROPATHY RISK FACTORS: Not applicable CREATININE: Creatinine Date Value Ref Range Status 10/16/2020 0.72 0.58 - 0.96 mg/dL Final 02/23/2014 0.72 0.70 - 1.40 mg/dL Final 02/16/2013 0.63 (L) 0.70 - 1.40 mg/dL Final eGFR-All Other Races Date Value Ref Range Status 10/16/2020 >60 . Final Comment: eGFR (Estimated GFR) Units of measure: mL/min/1.73 meters squared eGFR is derived from the reexpressed MDRD Study equation using the following parameters: serum creatinine, age, gender and race. The creatinine assay has been calibrated to be traceable to IDMS. An eGFR <60 mL/min/1.73m2 for >3 months is consistent with chronic kidney disease. Refer to KDOQI guidelines for clinical interpretation. In patients with unstable renal function, e.g. those with acute kidney injury, the eGFR may not accurately reflect actual GFR. eGFR- Date Value Ref Range Status 10/16/2020 >60 Final P.O.C.T. RESULTS: POC done: Yes, See Lab Tab July 09, 2023 TREATMENT: N/A PERIPHERAL IV DATA: Ambulatory: A peripheral IV was started in the Left antecubital site with a Angio cath: 22 gauge. RADIOLOGY DEPARTMENT: CT; Exam(s) Completed: Urogram SIGNATURE: LORENZO Mejia) PATIENT NAME: Marcelino Araiza DATE: July 09, 2023 TIME: 4:11 PM documented in this encounter [facility] 07-09-2023 Note HNO ID: [id number] Author: ERNESTINA TONG RT(R) Service: ? Author Type: Welfare Aide Type: Progress Notes Filed: 07/09/2023 16:12 Note Text: Radiology Service Progress Note DATE OF SERVICE: July 09, 2023 TIME: 4:11 PM PATIENT IDENTITY VERIFICATION COMPLETED USING TWO (2) STANDARD IDENTIFIERS: Name and Date of confirmed by patient verbally. FALL SCREENING: Has the patient had 2 falls in the last year or 1 fall with injury or currently using an Ambulatory Assistive Device (Walker, Cane, Wheelchair, Crutches, etc.)? No PATIENT GENDER DATA: Female. status: : No status: NO. PATIENT RELEVANT IMPLANT DATA REVIEWED: Yes PATIENT PRESENTS WITH AN IMPLANTABLE OR ATTACHED MOTION PICTURE PROJECTIONIST APPRENTICE: No ALLERGIES: Reviewed and unchanged CONTRAST ALLERGY: NO. EXAM: CT -CONTRAST INDUCED NEPHROPATHY RISK FACTORS: Not applicable CREATININE: Creatinine Date Value Ref Range Status 10/16/2020 0.72 0.58 - 0.96 mg/dL Final 02/23/2014 0.72 0.70 - 1.40 mg/dL Final 02/16/2013 0.63 (L) 0.70 - 1.40 mg/dL Final eGFR-All Other Races Date Value Ref Range Status 10/16/2020 >60 . Final Comment: eGFR (Estimated GFR) Units of measure: mL/min/1.73 meters squared eGFR is derived from the reexpressed MDRD Study equation using the following parameters: serum creatinine, age, gender and race. The creatinine assay has been calibrated to be traceable to IDMS. An eGFR <60 mL/min/1.73m2 for >3 months is consistent with chronic kidney disease. Refer to KDOQI guidelines for clinical interpretation. In patients with unstable renal function, e.g. those with acute kidney injury, the eGFR may not accurately reflect actual GFR. eGFR- Date Value Ref Range Status 10/16/2020 >60 Final P.O.C.T. RESULTS: POC done: Yes, See Lab Tab July 09, 2023 TREATMENT: N/A PERIPHERAL IV DATA: Ambulatory: A peripheral IV was started in the Left antecubital site with a Angio cath: 22 gauge. RADIOLOGY DEPARTMENT: CT; Exam(s) Completed: Urogram SIGNATURE: RT Jackie(R) PATIENT NAME: Marcelino Araiza DATE: July 09, 2023 TIME: 4:11 PM [facility] 07-08-2023 History of Present illness Narrative Referring Provider: Chief Complaint: clot hematuria HPI Marcelino Araiza is a 47 year old female with history of clot hematuria and left abdomen / flank pain who presents for evaluation. Hx of hematuria in 05/2023. She is s/p cystoscopy with bladder biopsy and fulguration on 06/10/2023. MICROSCOPIC DIAGNOSIS Urinary bladder tumor, biopsy; Urothelial hyperplasia with squamous differentiation. Mild chronic inflammation. No evidence of malignancy. She reports hematuria again began on 07/01/23. Saw local urologist (Dr. Ashley Fair) on 07/02/23- urine culture sent. Negative per patient report. She presented to [facility] ED on 07/04/23 with clot hematuria, left suprapubic pressure, and left flank pain. CT abd/pel 07/04/23 with no acute finding. She is s/p cystoscopy, bilateral retrograde pyelograms, attempted left ureteroscopy, and left ureteral stent insertion on 07/05/23. (Operative report below) She states she was having severe pain due to stent with vomiting. She later presented to her urologist on 07/06/2023 who then removed the stent. Plan for observation of hematuria and has scheduled follow up visit on 08/04/23. Interval Hx: Having persistent left suprapubic and left flank discomfort- some improvement since stent removed. Taking tylenol as needed. No vomiting but intermittent nausea. No fevers/chills. No current hematuria. Currently on 3 day course of PO Keflex. UA today: 3+ Hgb; >25 RBC; all other findings WNL States she had history of recurrent UTI's last year but this had subsided on its own. No issues with UTI's in the past year. Otherwise, no significant urologic history. She does not take any blood thinning medications. 1-Duration: 2023 2-Location: urine 3-Severity: see HPI 4-Quality: gross hematuria 5-Context: Void 6-Timing: intermittently 7-Modifying factors: see HPI 8-Associated signs & symptoms: pain PMH: obesity; GERD; COVID + (06/14/23); Herpes Zoster (06/16/23- resolved); exercise induced asthma; anxiety; HTN; OA; IBS PSH: TURBT; cholecystectomy; uterine ablation; tonsillectomy; wisdom tooth extraction Social Hx: never smoker; social ETOH; no drug use Family History of Genitourinary Cancer: No LABS 07/03/2022 Creatinine 0.73 11/09/[address] ABD/PEL WO CON 07/04/2023 IMPRESSION: No suspicious solid organ abnormality No free intraperitoneal fluid, air, or suspicious adenopathy. Normal appendix visualized No interval change FINDINGS: The visualized lung bases are unremarkable. [...] The appendix is visualized and appears normal. Appendix seen on coronal recon images 68 through 74 Normal abdominal aorta. Normal inferior vena cava. Normal retroperitoneum. Normal urinary bladder. Normal-appearing uterus. No suspicious enlarged cystic mass or free fluid in the pelvis Normal abdominal wall. Normal osseous structures. Date of Procedure: 07/05/23 Pre-Operative Diagnosis: Gross hematuria, left flank pain Post-Operative Diagnosis: Same Surgery/Procedure Performed:: Cystoscopy, bilateral retrograde pyelograms, attempted left ureteroscopy, left ureteral stent insertion Surgeon: Ashley Fair Type of Anesthesia: General Description of Procedure: The patient is a 47-year-old female who had a bladder biopsy with fulguration a few weeks ago who presented to the emergency room with recurrent gross hematuria with clot. She now presents for evaluation with cystoscopy. Informed consent was obtained. She was taken to the operating room and placed on the operating room table. Anesthesia monitored the head, neck, airway, IV access and vital signs throughout the case. Once anesthesia was appropriately administered, she was placed into dorsolithotomy position was prepped and draped in usual sterile fashion. The cystoscope was inserted through the urethra under direct visualization into the urinary bladder. The area of biopsy was identified and was not bleeding nor was it erythematous. It was not completely healed. An 8 Bur[place]ian cone-tip catheter was used to gently cannulate the left ureteral orifice and contrast was injected in retrograde fashion under fluoroscopic visualization revealing no evidence of obstruction, foreign body or abnormality. The same findings were found on the patient's right side with the retrograde pyelogram. An attempt was made at left ureteroscopy with both the flexible and a semirigid ureteroscope. The ureter was narrow and would not accommodate either scope. Secondary to edema and narrowing the decision was made to leave a ureteral stent and come back for further evaluation. The 0.035 safety wire was used for placement of a 6 [place] 26 cm JJ stent with positioning in the renal pelvis as well as the bladder. The bladder was then emptied and the cystoscope was removed. The patient was then awakened and taken to the recovery room in good condition. There were no complications during this procedure. Grafts/Implants Used: 6 x 26 JJ stent Report of Operation Date of Procedure: 06/10/23 Pre-Operative Diagnosis: Bladder lesion small Post-Operative Diagnosis: Same Surgery/Procedure Performed:: Cystoscopy with bladder biopsy and fulguration Surgeon: Ashley Fair Type of Anesthesia: MAC Specimen's removed: Bladder biopsy Description of Procedure: The patient is a 47-year-old female with abdominal pain, urinary tract infections who underwent cystoscopy in the office for evaluation. She was found to have an area suspicious for squamous metaplasia. The decision was made to take her to the operating room for removal with biopsy and fulguration. Informed consent was obtained. The patient was taken the operating room and placed on the operating room table. Anesthesia monitored the head, neck, airway, IV access and vital signs throughout the case. Once anesthesia was appropriately administered, the patient was placed into dorsolithotomy position and was prepped and draped in usual sterile fashion. The cystoscope was inserted through the urethra under direct visualization into the urinary bladder. The bladder mucosa was visualized in its entirety and the only area of concern was a white patchy area on the trigone. It was very small approximately 1 cm in diameter. A biopsy was taken of this with flexible biopsy forceps. The area was fulgurated for tissue treatment and hemostatic control. The patient's bladder was then emptied and the cystoscope was removed. She was awakened and taken to the recovery room in good condition. There were no complications during this procedure. Complications None REVIEW OF SYSTEMS GENERAL: Negative for fevers or chills; +feels like I can sweat HEENT: Negative for sudden vision or hearing changes. RESPIRATORY: Negative for cough or shortness of breath. CARDIAC: Negative for chest pain, palpitations, murmurs, or syncopal episodes. GASTROINTESTINAL: Negative for diarrhea, constipation; +decreased appetite; left lower abdomen ache GENITOURINARY: See HPI. MUSCULOSKELETAL: Negative Bone Aches/pain; +OA NEUROLOGIC: Negative for dizziness, headache, weakness or numbness. HEMATOLOGIC: Negative for bleeding or easy bruising. SKIN: Negative for rashes or other skin changes. HISTORIES PAST MEDICAL HISTORY Diagnosis Date Anxiety disorder in conditions classified elsewhere Atypical nevi Dr Lim Hemicrania left headache, cervical origin? Herpes zoster without complication 12/2011 left gluteal area IBS (irritable bowel syndrome) alternating Impaired fasting glucose Obesity, unspecified Reactive airway disease with wheezing triggered by URI Skin cancer FAMILY HISTORY Problem Relation Age of Onset Anesthesia Mother heart stopped 3 times on the table Colon Polyps Mother Arthritis Father rheumatoid (and one PAunt) Colon Polyps Father Heart Maternal Grandmother pacer Diabetes Maternal Grandmother Diabetes Paternal Grandmother Colon Cancer Paternal Grandmother Cancer Maternal Uncle type unknown; age 54 Coronary Artery Disease Other none Breast Cancer Other none SOCIAL HISTORY Social History Tobacco Use Smoking status: Never Smokeless tobacco: Never Vaping Use Vaping Use: Never used Substance Use Topics Alcohol use: Yes Comment: socially Drug use: No PHYSICAL EXAMINATION VITALS: BP 134/79 (BP Site: Left Arm, BP Position: Sitting, BP Cuff Size: Large Adult) Pulse 97 Ht 172.7 cm (5' 8) Wt 108 kg (238 lb 1.6 oz) LMP 12/29/2019 (Approximate) BMI 36.20 kg/m GENERAL: alert, no distress, normal affect EYES: no icterus, no discharge, conjugate gaze CARDIOVASCULAR: regular rate, regular rhythm RESPIRATORY: normal effort, regular rate, no audible wheeze ABDOMEN: obese, soft, non-distended; GENITOURINARY: +left suprapubic discomfort; no CVA tenderness on palpation EXTREMITIES: warm, no malformations SKIN: no rashes, no cyanosis NEUROLOGIC: normal gait, good manual dexterity, no paralysis PVR: 0 cc Assessment (R31.0) Gross hematuria (primary encounter diagnosis) (R10.9) Left flank pain 47 year old female with history of clot hematuria and left flank pain CT abd/pel (07/04/23) with no acute findings or hydro per outside report She is s/p cystoscopy, bilateral retrograde pyelograms, attempted left ureteroscopy, and left ureteral stent insertion on 07/05/23. Had subsequent removal of ureteral stent on 07/06/23 Ongoing left flank and left suprapubic discomfort Resolution of prior hematuria Plan -Has prior Percocet Rx if needed for pain; otherwise, will continue to take Tylenol as needed -Has prior Zofran Rx if needed for nausea -Check urine cytology -Check CT urogram -Coordinate follow up virutal visit [facility] Dr. Lares after imaging completed. Further plan pending imaging results. Reviewed signs/symptoms that would warrant sooner evaluation including but not limited to fever, shaking chills, irretractable pain or vomiting Discussed with Dr. Lares Will fax today's office visit note to patient's local urologist Dr. Ashley Fair at [phone] I spent a total of 45 minutes on the date of the service which included preparing to see the patient, [id number] patient care, completing clinical documentation, obtaining and/or reviewing separately obtained history, counseling and educating the patient/family/caregiver, and ordering medications, tests, or procedures. Maria Elena Carvajal APRN.CNP documented in this encounter [facility] 07-08-2023 Note HNO ID: [id number] Author: MARIA ELENA CARVAJAL APRN.CNP Service: ? Author Type: Nurse Practitioner Type: Progress Notes Filed: 07/08/2023 11:59 Note Text: Referring Provider: Chief Complaint: clot hematuria HPI Marcelino Araiza is a 47 year old female with history of clot hematuria and left abdomen / flank pain who presents for evaluation. Hx of hematuria in 05/2023. She is s/p cystoscopy with bladder biopsy and fulguration on 06/10/2023. MICROSCOPIC DIAGNOSIS Urinary bladder tumor, biopsy; Urothelial hyperplasia with squamous differentiation. Mild chronic inflammation. No evidence of malignancy. She reports hematuria again began on 07/01/23. Saw local urologist (Dr. Ashley Fair) on 07/02/23- urine culture sent. Negative per patient report. She presented to [facility] ED on 07/04/23 with clot hematuria, left suprapubic pressure, and left flank pain. CT abd/pel 07/04/23 with no acute finding. She is s/p cystoscopy, bilateral retrograde pyelograms, attempted left ureteroscopy, and left ureteral stent insertion on 07/05/23. (Operative report below) She states she was having severe pain due to stent with vomiting. She later presented to her urologist on 07/06/2023 who then removed the stent. Plan for observation of hematuria and has scheduled follow up visit on 08/04/23. Interval Hx: Having persistent left suprapubic and left flank discomfort- some improvement since stent removed. Taking tylenol as needed. No vomiting but intermittent nausea. No fevers/chills. No current hematuria. Currently on 3 day course of PO Keflex. UA today: 3+ Hgb; >25 RBC; all other findings WNL States she had history of recurrent UTI's last year but this had subsided on its own. No issues with UTI's in the past year. Otherwise, no significant urologic history. She does not take any blood thinning medications. 1-Duration: 2023 2-Location: urine 3-Severity: see HPI 4-Quality: gross hematuria 5-Context: Void 6-Timing: intermittently 7-Modifying factors: see HPI 8-Associated signs AND symptoms: pain PMH: obesity; GERD; COVID + (06/14/23); Herpes Zoster (06/16/23- resolved); exercise induced asthma; anxiety; HTN; OA; IBS PSH: TURBT; cholecystectomy; uterine ablation; tonsillectomy; wisdom tooth extraction Social Hx: never smoker; social ETOH; no drug use Family History of Genitourinary Cancer: No LABS 07/03/2022 Creatinine 0.73 11/09/[address] ABD/PEL WO CON 07/04/2023 IMPRESSION: No suspicious solid organ abnormality No free intraperitoneal fluid, air, or suspicious adenopathy. Normal appendix visualized No interval change FINDINGS: The visualized lung bases are unremarkable. [...] The appendix is visualized and appears normal. Appendix seen on coronal recon images 68 through 74 Normal abdominal aorta. Normal inferior vena cava. Normal retroperitoneum. Normal urinary bladder. Normal-appearing uterus. No suspicious enlarged cystic mass or free fluid in the pelvis Normal abdominal wall. Normal osseous structures. Date of Procedure: 07/05/23 Pre-Operative Diagnosis: Gross hematuria, left flank pain Post-Operative Diagnosis: Same Surgery/Procedure Performed:: Cystoscopy, bilateral retrograde pyelograms, attempted left ureteroscopy, left ureteral stent insertion Surgeon: Ashley Fair Type of Anesthesia: General Description of Procedure: The patient is a 47-year-old female who had a bladder biopsy with fulguration a few weeks ago who presented to the emergency room with recurrent gross hematuria with clot. She now presents for evaluation with cystoscopy. Informed consent was obtained. She was taken to the operating room and placed on the operating room table. Anesthesia monitored the head, neck, airway, IV access and vital signs throughout the case. Once anesthesia was appropriately administered, she was placed into dorsolithotomy position was prepped and draped in usual sterile fashion. The cystoscope was inserted through the urethra under direct visualization into the urinary bladder. The area of biopsy was identified and was not bleeding nor was it erythematous. It was not completely healed. An 8 [place]undian cone-tip catheter was used to gently cannulate the left ureteral orifice and contrast was injected in retrograde fashion under fluoroscopic visualization revealing no evidence of obstruction, foreign body or abnormality. The same findings were found on the patient's right side with the retrograde pyelogram. An attempt (more content not included)... [facility] 07-08-2023 Nurse Note Post Void Residual done on patient with 0 cc residual volume remaining. notified. Ileana Cherry MA documented in this encounter [facility] 07-08-2023 Note Patient Outreach (UR OLMN) MARCELINO ARAIZA ([id number]) 1975 F Date Time Provider Department 07/08/23 MARIA ELENA CARVAJAL During your visit today, we recorded the following information about you: Allergies As of Date: 07/08/2023 Noted Allergy Reaction OFLOXACIN 01/27/2019 7 - Swelling SEASONAL ALLERGIES 07/08/2023 3 - Cough 12 - Shortness of Breath Date Reviewed: 07/08/2023 Reviewed by: Ernestina Tong, RT(R) - Fully Assessed Visit Diagnosis:Screening for genitourinary condition [Z13.89] Order(s):URINALYSIS, REFLEX MICROSCOPIC [[id number]] Order #: [id number]. #:[id number] Prescriptions as of 07/12/2023 - doxycycline (VIBRA-TABS) 100 mg tablet Take 1 tablet by mouth every 12 hours. - oxyCODONE-acetaminophen (PERCOCET) 5-325 mg tablet TAKE 1 TABLET BY MOUTH EVERY 8 HOURS NEEDED FOR PAIN FOR 3 DAYS - pantoprazole DR (PROTONIX) 40 mg tablet Take 1 tablet by mouth every afternoon. - phenazopyridine (PYRIDIUM) 200 mg tablet - Phentermine HCl 37.5 mg tablet Take 1 tablet (37.5 mg) by mouth every morning (before breakfast). BMI 36.49 - valACYclovir (VALTREX) 1 gram tablet - cephALEXin (KEFLEX) 500 mg capsule Take 500 mg by mouth two times a day. - cephALEXin (KEFLEX) 250 mg capsule Take 250 mg by mouth daily at bedtime. - benzonatate (TESSALON PERLES) 100 mg capsule Take 1-2 capsules by mouth three times daily as needed. - omeprazole (PRILOSEC) 40 mg capsule Take 1 capsule by mouth twice daily. - dicyclomine (BENTYL) 10 mg capsule Take 1 capsule by mouth three times daily as needed (abdominal pain). - ondansetron orally disintegrating (ZOFRAN ODT) 4 mg disintegrating tablet Take 1 tablet by mouth every 8 hours as needed for nausea/vomiting. - lisinopril (ZESTRIL, PRINIVIL) 5 mg tablet Take by mouth. - FLUoxetine (PROZAC) 40 mg capsule Take 40 mg by mouth once daily. - meloxicam (MOBIC) 15 mg tablet Take 15 mg by mouth once daily. - fluticasone (FLONASE) 50 mcg/actuation nasal spray Use 1 Needles in each nostril once daily. - Cholestyramine, Bulk, powd 4 g twice daily. - FLUoxetine 10 mg tablet Take 10 mg by mouth once daily. - buPROPion XL (WELLBUTRIN XL) 300 mg 24 hr tablet Take 1 tablet by mouth once daily. - albuterol HFA (PROAIR HFA) 90 mcg/actuation inhaler Inhale 2 Puffs as instructed every 4 hours as needed for Wheezing/Shortness of Breath. 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] 06/15/2013 IBS (irritable bowel syndrome) [K58.9] Reactive airway disease with wheezing [J45.909] Encounter Status:Closed by EPIC, PRODUSER on 07/12/23 [facility] 07-05-2023 Procedure note [facility] 07-04-2023 History and physical note Note Date/Time July 04, 2023 8:57pm [facility] Medical Records Department [address] [place] [address] History & Physical Exam 07/04/232050 MR#: [id number] Acct: [id number] Name: MARCELINO ARAIZA Rep #:[id number] : 1975 47 From: Ashley Sanchez PCP: TEJINDER Le Status:ADM RICKY Location: [address] - General General Date of Admission: 07/04/23 Chief Complaint: Gross hematuria HPI Narrative MARCELINO ARAIZA, is a 47 F who presented to the ER today after having a recurrenceof her gross hematuria. She was seen in the office last week and a culture was done but is not back yet. The hematuria had resolved. It has now recurred withmore clots and discomfort including some left flank pain. She did initially have some nausea earlier in the morning but not since her admission. No fever, chills. She did undergo a cystoscopy with bladder biopsy approximately 4 weeks ago for squamous 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 [facility] Medical History (Updated 07/04/23 @ 20:[address] Ashley Fair MD) Acid reflux Alcohol use Anemia Anxiety Arthritis Asthma Back pain Bladder disease Bloating Chronic diarrhea Cough Depression Difficulty swallowing Easy bruising Gastric reflux Gross hematuria Herpes zoster History of anxiety History of gastrointestinal disorder History of IBS History of nasal obstruction History of skin cancer History of steroid therapy Hx of carpal tunnel syndrome Hx of seasonal allergies Hx: UTI (urinary tract infection) Hypertension IBS (irritable bowel syndrome) Lesion of bladder Menorrhagia with regular cycle Nausea Non-smoker Pelvic pain Urinary tract infection Vitamin D deficiency Wears glasses Home Medications albuterol sulfate 90 mcg/actuation aerosol inhaler 2 puff inhalation Q6H PRN shortness of breath or wheezing #8.5 grams 12/10/21 [Rx Last Taken Unknown] dicyclomine 10 mg capsule 10 mg PO TID PRN abdominal pain 06/03/22 [History Last Taken Unknown] bupropion HCl 300 mg 24 hr tablet, extended release (Wellbutrin XL) 300 mg PO QAM #90 tabs 06/24/22 [Rx Last Taken 07/03/23] lisinopril 5 mg tablet 5 mg PO DAILY #30 tabs 08/13/22 [Rx Last Taken 07/03/23] ondansetron 4 mg disintegrating tablet 4 mg PO Q8H PRN nausea and vomiting #30 tabs 09/01/22 [Rx Last Taken Unknown] fluoxetine 40 mg capsule 40 mg PO DAILY #90 caps 09/21/22 [Rx Last Taken 07/03/23] albuterol sulfate 2.5 mg/0.5 mL solution for nebulization 5 mg inhalation Q6H PRN shortness of breath or wheezing #30 ea 09/24/22 [Rx Last Taken Unknown] pantoprazole 40 mg tablet,delayed release 40 mg PO DAILY #90 tabs 01/19/23 [Rx Last Taken 07/03/23] cephalexin 250 mg capsule 250 mg PO PRN PRN AFTER INTERCOURSE 06/03/23 [History Last Taken Unknown] fluticasone propionate 50 mcg/actuation nasal spray,suspension (Flonase Allergy Relief) 1 spray intranasal DAILY PRN allergy symptoms 06/03/23 [History Last Taken 06/09/23] meloxicam 15 mg tablet 15 mg PO DAILY Pain 06/03/23 [History Last Taken 06/09/23] multivitamin-ferrous fumarate-folic acid 18 mg-400 mcg tablet (Centrum Complete)1 tab PO DAILY 06/03/23 [History Last Taken 07/03/23] clindamycin phosphate 1 % topical gel 1 applic topical BID 07/04/23 [History Last Taken Unknown] cream base no.175 (bulk) (Versatile Rich topical cream) 1 applic topical .BIW 07/04/23 [History Last Taken Unknown] triamcinolone acetonide 0.1 % topical cream 1 applic topical PRN 07/04/23 [History Last Taken Unknown] Allergy/AdvReac Type Severity Reaction Status Date / Time ofloxacin Allergy Severe SWELLING Verified 07/04/23 07:29 Environmental Allergies: Allergy Intermediate Itching Verified 07/04/23 07:29 Uncoded Family History Grandmother Heart disease Colon cancer Diabetes Grandmother Diabetes Father Rheumatoid arthritis Mother Anxiety Arthritis Depression Brother Asthma Allergies Grandfather Cancer Surgical History History of carpal tunnel surgery History of esophagogastroduodenoscopy (EGD) History of tonsillectomy Hx of cholecystectomy Hx of colonoscopy S/P endometrial ablation Status post hysteroscopy Social History adopted: No household members: family housing: apartment number of children: 3 current occupational status: employed current occupation: [employer]- Patient Liason sexually active: Yes Smoking Status: Never smoker Electronic Cigarette Use: not used alcohol intake: current alcohol intake frequency: holidays/special occasions only details: social substance use type: does not use caffeine: Yes what type of physical activity do you participate in: none and walking frequency: 1-2 times per week seatbelt use: always do you feel safe at home: Yes additional social history: Single ROS Constitutional Constitutional: Reports systems reviewed and no addt'l complaints, except as documented Eyes Eyes: Reports systems reviewed and no addt'l complaints, except as documented ENT HEENT: Reports systems reviewed and no addt'l complaints, except as documented Cardiovascular Cardiovascular: Reports systems reviewed and no addt'l complaints, except as documented Respiratory/Chest Respiratory/Chest: Reports systems reviewed and no addt'l complaints, except as documented Gastrointestinal Gastrointestinal: Reports abdominal pain Genitourinary Genitourinary: Reports abdominal discomfort, dysuria, flank pain, hematuria and urinary urgency Musculoskeletal Musculoskeletal: Reports back pain Integumentary Integumentary: Reports systems reviewed and no addt'l complaints, except as documented Neurologic Neurologic: Reports systems reviewed and no addt'l complaints, except as documented Psychiatric Psychiatric: Reports systems reviewed and no addt'l complaints, except as documented Endocrine Endocrinology: Reports systems reviewed and no addt'l complaints, except as documented Hematologic/Lymphatic Hematologic/Lymphatic: Reports systems reviewed and no addt'l complaints, exceptas documented Allergic/Immunologic Allergic/Immunologic: Reports systems reviewed and no addt'l complaints, except as documented Vital Signs Vital Signs Vital Signs: 07/04/23 07:28 07/04/23 07:42 07/04/23 09:30 Temperature 97 F L 97.0 F L Temperature Source Temporal Temporal Pulse Rate 93 116 H 89 Pulse Rate [Lying] Pulse Rate [Sitting (for 1 minute prior to obtaining)] Respiratory Rate 14 16 16 Respiratory Effort Respiratory Depth Respiratory Pattern Blood Pressure 163/93 H 163/93 H 126/79 H Blood Pressure [Lying] Blood Pressure [Sitting (for 1 minute prior to obtaining)] Blood Pressure [Standing (for 1 minute prior to obtaining)] Blood Pressure Mean 116 116 94 Blood Pressure Mean [Lying] Blood Pressure Mean [Sitting (for 1 minute prior to obtaining)] Blood Pressure Mean [Standing (for 1 minute prior to obtaining)] Blood Pressure Source Blood Pressure Position Blood Pressure Location Pulse Ox 97 99 99 Oxygen Delivery Method Room Air Room Air Room Air 07/04/23 11:00 07/04/23 11:33 07/04/23 11:36 Temperature 97.5 F L Temperature Source Pulse Rate 88 Pulse Rate [Lying] 81 Pulse Rate [Sitting (for 1 minute prior to obtaining)] 90 Respiratory Rate 16 Respiratory Effort Normal Respiratory Depth Respiratory Pattern Blood Pressure 115/57 L Blood Pressure [Lying] 117/68 Blood Pressure [Sitting (for 1 minute prior to obtaining)] 122/76 H Blood Pressure [Standing (for 1 minute prior to obtaining)] 128/70 H Blood Pressure Mean 76 Blood Pressure Mean [Lying] 84 Blood Pressure Mean [Sitting (for 1 minute prior to obtaining)] 91 Blood Pressure Mean [Standing (for 1 minute prior to obtaining)] 89 Blood Pressure Source Blood Pressure Position Blood Pressure Location Pulse Ox 97 Oxygen Delivery Method 07/04/23 11:42 07/04/23 15:26 07/04/23 20:45 Temperature 99.0 F 98.1 F Temperature Source Oral Oral Pulse Rate 81 84 Pulse Rate [Lying] Pulse Rate [Sitting (for 1 minute prior to obtaining)] Respiratory Rate 18 18 Respiratory Effort Normal Respiratory Depth Normal Respiratory Pattern Normal Blood Pressure 117/68 125/74 H Blood Pressure [Lying] Blood Pressure [Sitting (for 1 minute prior to obtaining)] Blood Pressure [Standing (for 1 minute prior to obtaining)] Blood Pressure Mean 84 91 Blood Pressure Mean [Lying] Blood Pressure Mean [Sitting (for 1 minute prior to obtaining)] Blood Pressure Mean [Standing (for 1 minute prior to obtaining)] Blood Pressure Source Monitor Monitor Blood Pressure Position Semi-Fowlers Semi-Fowlers Blood Pressure Location Right Arm Right Arm Pulse Ox 98 98 Oxygen Delivery Method Room Air Room Air Room Air Weight Weight: 105.233 kg Body Mass Index (BMI) 35.2 Physical Exam Const alert, oriented x3 and no apparent distress General Appearance: cooperative, comfortable and well kempt HEENT normocephalic, head/scalp atraumatic, hearing grossly normal bilaterally, external ears normal, external nose normal and moist oral mucous membranes Eyes General Eye: normal appearance of both eyes Neck supple General: normal visual inspection and trachea midline Lymph Lymphatic: no lymphedema noted Chest inspection of chest normal Resp normal respiratory effort and normal air movement Cardio regular rate GI soft to palpation, non-tender and non-distended Bladder / Kidney Exam: CVA tenderness left Extremity normal to inspection Skin no rashes or lesions noted, no wounds, skin turgor normal, no jaundice, no petechiae and no mottling Neuro oriented x3, CN's II-XII intact bilaterally and moves all extremities Psych mental status grossly normal Results Lab / Micro Data 07/04/23 10:45 07/04/23 10:45 Labs: Laboratory Results - last 24 hr 07/04/23 07:38: Urine Color Red, Urine Clarity Turbid, Urine pH 5.0, Ur SpecificGravity 1.030, Urine Protein 500 H, Urine Glucose (UA) Normal, Urine Ketones Negative, Urine Occult Blood 250 H, Urine Nitrite Negative, Urine Bilirubin Negative, Urine Urobilinogen 1 H, Ur Leukocyte Esterase Negative, Urine RBC > 100 SEEN, Urine WBC 0 SEEN, Ur Squamous Epith Cells 0 SEEN, Urine Bacteria 0 SEEN, Urine Mucus 0 SEEN, Urine Test Negative 07/04/23 10:45: WBC 6.4, RBC 4.21, Hgb 13.0, Hct 39.0, MCV 92.6, MCH 30.9, MCHC 33.3, RDW Std Deviation 43.7, RDW Coeff of [place] 13.0, Plt Count 282, MPV 9.7, Immature Gran % (Auto) 0.200, Neut % (Auto) 58.2, Lymph % (Auto) 29.8, [place] % (Auto) 5.8, Eos % (Auto) 4.9, Baso % (Auto) 1.1 H, Absolute Neuts (auto) 3.7, Absolute Lymphs (auto) 1.90, Nucleated RBC % 0, Sodium 138, Potassium 4.2, Chloride 108 H, Carbon Dioxide 24.0, Anion Gap 6, BUN 16, Creatinine 0.73, EstimCreat Clear Calc 124.56, Est GFR (MDRD) Af Amer 110, Est GFR (MDRD) Non-Af 91, BUN/Creatinine Ratio 21.9 H, Glucose 88, Calcium 8.8 Imaging Radiology Impression Abdomen/Pelvis CT 07/04/23 07:47 IMPRESSION: No suspicious solid organ abnormality No free intraperitoneal fluid, air, or suspicious adenopathy. Normal appendix visualized No interval change Electronically Signed: Jayesh Landaverde MD at 8:50 EDT Reading Location ID and State: [address] [place] [address] , Service support , Assessment & Plan Assessment/Plan (1) Gross hematuria: (2) Lesion of bladder: PLAN: Plan Urine culture is pending Follow labs and supportive care N.p.o. after midnight Plan for cystoscopy with fulguration in the OR tomorrow, bilateral retrograde pyelograms, possible ureteroscopy 07/04/232056 <Electronically signed by Ashley Fair MD> Cosigner Signature (if applicable): CC: TEJINDER Gomez; Dr. Ashley Fair MD~ Signed [facility] Work Phone: 1(462) 346-853904-07-2024 Discharge summary Author Cirilo Dieter [facility] July 04, 2023 10:32am Note Date/Time July 04, 2023 7:51 am [facility] Medical Records Department [address] [place] [address] [place] [address] Emergency Department Summary 07/04/23 MR#: [id number] Acct: [id number] Name: MARCELINO ARAIZA Rep #:[id number] : 1975 47 From: Cirilo Garcias DO PCP: TEJINDER Le Status:REG ER Location: ED HPI HPI - Female History of Present Illness Chief Complaint: Complaint Narrative Narrative: 47-year-old female presenting with hematuria and suprapubic pressure as well as blood clots in her urine. Patient has had history of this in the past and sees urology (Dr. Fair) and previously had cystoscopy which showed some irregular looking lesions however these were biopsied and were negative. Patient states these areas were cauterized. Patient has not had any significant problems But notes that about Wednesday or started having some hematuria again and it cleared up but then became worse overnight. She states he is having clots in the urine. Patient states she is not sick or having fevers or chills. She has some lower back pain and maybe some left-sided pain she did not think anything of until after the urinary symptoms started. She states she has a distant history of UTI but has not anything recently. Recently had urinalysis performed at urology office and culture was sent which was negative. Patient does not have any history of kidney stones that she knows of. PFSH PFS Medical History Acid reflux Alcohol use Anemia Anxiety Arthritis Asthma Back pain Bladder disease Bloating Chronic diarrhea Cough Depression Difficulty swallowing Easy bruising Gastric reflux Herpes zoster History of anxiety History of gastrointestinal disorder History of IBS History of nasal obstruction History of skin cancer History of steroid therapy Hx of carpal tunnel syndrome Hx of seasonal allergies Hx: UTI (urinary tract infection) Hypertension IBS (irritable bowel syndrome) Lesion of bladder Menorrhagia with regular cycle Nausea Non-smoker Pelvic pain Vitamin D deficiency Wears glasses Home Medications albuterol sulfate 90 mcg/actuation aerosol inhaler 2 puff inhalation Q6H PRN shortness of breath or wheezing #8.5 grams 12/10/21 [Rx Last Taken Unknown] dicyclomine 10 mg capsule 10 mg PO TID PRN abdominal pain 06/03/22 [History Last Taken Unknown] bupropion HCl 300 mg 24 hr tablet, extended release (Wellbutrin XL) 300 mg PO QAM #90 tabs 06/24/22 [Rx Last Taken 07/03/23] lisinopril 5 mg tablet 5 mg PO DAILY #30 tabs 08/13/22 [Rx Last Taken 07/03/23] ondansetron 4 mg disintegrating tablet 4 mg PO Q8H PRN nausea and vomiting #30 tabs 09/01/22 [Rx Last Taken Unknown] fluoxetine 40 mg capsule 40 mg PO DAILY #90 caps 09/21/22 [Rx Last Taken 07/03/23] albuterol sulfate 2.5 mg/0.5 mL solution for nebulization 5 mg inhalation Q6H PRN shortness of breath or wheezing #30 ea 09/24/22 [Rx Last Taken Unknown] pantoprazole 40 mg tablet,delayed release 40 mg PO DAILY #90 tabs 01/19/23 [Rx Last Taken 07/03/23] cephalexin 250 mg capsule 250 mg PO PRN PRN AFTER INTERCOURSE 06/03/23 [History Last Taken Unknown] fluticasone propionate 50 mcg/actuation nasal spray,suspension (Flonase Allergy Relief) 1 spray intranasal DAILY PRN allergy symptoms 06/03/23 [History Last Taken 06/09/23] meloxicam 15 mg tablet 15 mg PO DAILY Pain 06/03/23 [History Last Taken 06/09/23] multivitamin-ferrous fumarate-folic acid 18 mg-400 mcg tablet (Centrum Complete)1 tab PO DAILY 06/03/23 [History Last Taken 07/03/23] clindamycin phosphate 1 % topical gel 1 applic topical BID 07/04/23 [History Last Taken Unknown] cream base no.175 (bulk) (Versatile Rich topical cream) 1 applic topical .BIW 07/04/23 [History Last Taken Unknown] triamcinolone acetonide 0.1 % topical cream 1 applic topical PRN 07/04/23 [History Last Taken Unknown] Allergy/AdvReac Type Severity Reaction Status Date / Time ofloxacin Allergy Severe SWELLING Verified 07/04/23 07:29 Environmental Allergies: Allergy Intermediate Itching Verified 07/04/23 07:29 Uncoded Family History Grandmother Heart disease Colon cancer Diabetes Grandmother Diabetes Father Rheumatoid arthritis Mother Anxiety Arthritis Depression Brother Asthma Allergies Grandfather Cancer Surgical History History of carpal tunnel surgery History of esophagogastroduodenoscopy (EGD) History of tonsillectomy Hx of cholecystectomy Hx of colonoscopy S/P endometrial ablation Status post hysteroscopy Social History adopted: No household members: family housing: apartment number of children: 3 current occupational status: employed current occupation: [employer]- Patient Liason sexually active: Yes Smoking Status: Never smoker Electronic Cigarette Use: not used alcohol intake: current alcohol intake frequency: holidays/special occasions only details: social substance use type: does not use caffeine: Yes what type of physical activity do you participate in: none and walking frequency: 1-2 times per week seatbelt use: always do you feel safe at home: Yes additional social history: Single ROS ROS ED Constitutional Constitutional ED: Denies chills, fever(s) or sweats Eyes Eyes: Denies blurry vision or change in vision ENT ENT ED: Denies ear pain or sore throat Cardiovascular Cardiovascular: Denies chest pain, palpitations or racing heartbeat Respiratory/Chest Respiratory/Chest: Denies cough, dyspnea or sputum Gastrointestinal Gastrointestinal: Reports abdominal pain; Denies constipation, diarrhea, nausea or vomiting Genitourinary Genitourinary ED: Reports hematuria; Denies dysuria or urinary frequency Musculoskeletal Musculoskeletal: Denies arthralgias, myalgias or neck pain Integumentary Denies abscess, Abrasions or rash Neurologic Neurologic: Denies headache(s), paresthesias or weakness Psychiatric Psychiatric: Denies anxiety, depression, suicidal ideation or suicidal thoughts Endocrine Endocrinology: Denies polydipsia or polyuria EXAM Physical Exam Const Vital Signs: 07/04/23 07:28 07/04/23 07:42 07/04/23 09:30 Temperature 97 F L 97.0 F L Temperature Source Temporal Temporal Pulse Rate 93 116 H 89 Respiratory Rate 14 16 16 Blood Pressure 163/93 H 163/93 H 126/79 H Blood Pressure Mean 116 116 94 Pulse Ox 97 99 99 Oxygen Delivery Method Room Air Room Air Room Air Positive well nourished General Appearance ED: NAD HEENT Reports moist mucous membranes Eyes PERRL Chest Wall inspection of chest normal Resp normal respiratory effort Cardio regular rate and regular rhythm GI GI Narrative: Mild suprapubic pressure. Back/Spine no CVA tenderness Neuro oriented x3 Sensorium / Orientation: alert Psych mental status grossly normal Skin no rashes or lesions noted MDM MDM MDM Narrative Medical decision making narrative: Patient presented with hematuria and feels otherwise well other than some suprapubic pressure. This has been worked up and so far she does not have a urinary tract infection and she states that biopsies have been done and were negative. Patient is not anticoagulated. Urinalysis will be obtained. hCG will be obtained. After discussion patient only wants Tylenol for pain. Will obtain CT of the abdomen pelvis without contrast. Urinalysis shows occult bloodwith 500 protein. RBCs greater than 100 no infectious findings. Patient did have some nausea and was given Zofran. CT of the abdomen pelvis without contrast was obtained and shows no acute process. Given the patient's pain I spoke with Dr. Fair and she wanted the patient in for a repeatUrethral scope cystoscopy given the hematuria and the clots. Patient was amenable to this. IVline was established and basic lab work will be obtained for follow-up on the medical floor by urology. Impression: 1. Hematuria 2. Nausea Lab Data Labs: Laboratory Results - last 24 hr 07/04/23 07:38 Urine Color Red Urine Clarity Turbid Urine pH 5.0 Ur Specific [place] 1.030 Urine Protein 500 H Urine Glucose (UA) Normal Urine Ketones Negative Urine Occult Blood 250 H Urine Nitrite Negative Urine Bilirubin Negative Urine Urobilinogen 1 H Ur Leukocyte Esterase Negative Urine RBC > 100 SEEN Urine WBC 0 SEEN Ur Squamous Epith Cells 0 SEEN Urine Bacteria 0 SEEN Urine Mucus 0 SEEN Urine Test Negative Discharge Plan Triage Chief Complaint: Complaint ED Provider: Cirilo Garcias Dx/Rx/DC Orders Prescriptions: No Action albuterol sulfate 90 mcg/actuation HFA aerosol inhaler 2 puff inhalation Q6H PRN (Reason: shortness of breath or wheezing) Qty: 8.5 1RF dicyclomine 10 mg capsule 10 mg PO TID PRN (Reason: abdominal pain) bupropion HCl [Wellbutrin XL] 300 mg tablet extended release 24 hr 300 mg PO QAM Qty: 90 1RF triamcinolone acetonide 0.1 % cream 1 applic topical PRN clindamycin phosphate 1 % gel 1 applic topical BID Versatile Rich Cream 1 applic topical .BIW Centrum Complete 18-400 mg-mcg tablet 1 tab PO DAILY cephalexin 250 mg capsule 250 mg PO PRN PRN (Reason: AFTER INTERCOURSE) Patient Comments: TAKE 1 CAPSULE BY MOUTH ONCE DAILY AFTER INTERCOURSE meloxicam 15 mg tablet 15 mg PO DAILY Rx Instructions: Do not take in conjunction with other NSAIDs. Tylenol is okay. fluticasone propionate [Flonase Allergy Relief] 50 mcg/actuation spray,suspension 1 spray intranasal DAILY PRN (Reason: allergy symptoms) Rx Instructions: administer into each nostril lisinopril 5 mg tablet 5 mg PO DAILY Qty: 30 2RF ondansetron 4 mg tablet,disintegrating 4 mg PO Q8H PRN (Reason: nausea and vomiting) Qty: 30 5RF fluoxetine 40 mg capsule 40 mg PO DAILY Qty: 90 1RF albuterol sulfate 2.5 mg/0.5 mL solution for nebulization 5 mg inhalation Q6H PRN (Reason: shortness of breath or wheezing) Qty: 30 0RF pantoprazole 40 mg tablet,delayed release (DR/EC) 40 mg PO DAILY Qty: 90 2RF Primary Care Provider: Ashley Gomez NP Referrals: Ashley Gomez NP, [employer] [Primary Care Provider] - What to do if you have Problems For any increased pain, shortness of breath, bleeding, nausea or vomiting, chestpain, or any unexpected problems, contact your Primary Care Provider. Call [facility] ([phone]) or report to the closest Emergency Room. Call 911 if necessary. 07/04/23 1032 <Electronically signed by Cirilo Garcias DO> Cosigner Signature (if applicable): CC: TEJINDER Gomez ~ Signed [facility] Work Phone: [phone] 414-947204-07-2024 Discharge summary Author Cirilo Garcias [facility] July 04, 2023 10:32am Note Date/Time July 04, 2023 7:51 am [facility] Medical Records Department [address] [place] [address] Emergency Department Summary 07/04/23 MR#: [id number] Acct: [id number] Name: MARCELINO ARAIZA Rep #:[id number] : 1975 47 From: Cirilo Garcias DO PCP: Ashley Jason, [employer] Status:REG ER Location: ED HPI HPI - Female History of Present Illness Chief Complaint: Complaint Narrative Narrative: 47-year-old female presenting with hematuria and suprapubic pressure as well as blood clots in her urine. Patient has had history of this in the past and sees urology (Dr. Fair) and previously had cystoscopy which showed some irregular looking lesions however these were biopsied and were negative. Patient states these areas were cauterized. Patient has not had any significant problems But notes that about Wednesday or started having some hematuria again and it cleared up but then became worse overnight. She states he is having clots in the urine. Patient states she is not sick or having fevers or chills. She has some lower back pain and maybe some left-sided pain she did not think anything of until after the urinary symptoms started. She states she has a distant history of UTI but has not anything recently. Recently had urinalysis performed at urology office and culture was sent which was negative. Patient does not have any history of kidney stones that she knows of. PFSH PFS Medical History Acid reflux Alcohol use Anemia Anxiety Arthritis Asthma Back pain Bladder disease Bloating Chronic diarrhea Cough Depression Difficulty swallowing Easy bruising Gastric reflux Herpes zoster History of anxiety History of gastrointestinal disorder History of IBS History of nasal obstruction History of skin cancer History of steroid therapy Hx of carpal tunnel syndrome Hx of seasonal allergies Hx: UTI (urinary tract infection) Hypertension IBS (irritable bowel syndrome) Lesion of bladder Menorrhagia with regular cycle Nausea Non-smoker Pelvic pain Vitamin D deficiency Wears glasses Home Medications albuterol sulfate 90 mcg/actuation aerosol inhaler 2 puff inhalation Q6H PRN shortness of breath or wheezing #8.5 grams 12/10/21 [Rx Last Taken Unknown] dicyclomine 10 mg capsule 10 mg PO TID PRN abdominal pain 06/03/22 [History Last Taken Unknown] bupropion HCl 300 mg 24 hr tablet, extended release (Wellbutrin XL) 300 mg PO QAM #90 tabs 06/24/22 [Rx Last Taken 07/03/23] lisinopril 5 mg tablet 5 mg PO DAILY #30 tabs 08/13/22 [Rx Last Taken 07/03/23] ondansetron 4 mg disintegrating tablet 4 mg PO Q8H PRN nausea and vomiting #30 tabs 09/01/22 [Rx Last Taken Unknown] fluoxetine 40 mg capsule 40 mg PO DAILY #90 caps 09/21/22 [Rx Last Taken 07/03/23] albuterol sulfate 2.5 mg/0.5 mL solution for nebulization 5 mg inhalation Q6H PRN shortness of breath or wheezing #30 ea 09/24/22 [Rx Last Taken Unknown] pantoprazole 40 mg tablet,delayed release 40 mg PO DAILY #90 tabs 01/19/23 [Rx Last Taken 07/03/23] cephalexin 250 mg capsule 250 mg PO PRN PRN AFTER INTERCOURSE 06/03/23 [History Last Taken Unknown] fluticasone propionate 50 mcg/actuation nasal spray,suspension (Flonase Allergy Relief) 1 spray intranasal DAILY PRN allergy symptoms 06/03/23 [History Last Taken 06/09/23] meloxicam 15 mg tablet 15 mg PO DAILY Pain 06/03/23 [History Last Taken 06/09/23] multivitamin-ferrous fumarate-folic acid 18 mg-400 mcg tablet (Centrum Complete)1 tab PO DAILY 06/03/23 [History Last Taken 07/03/23] clindamycin phosphate 1 % topical gel 1 applic topical BID 07/04/23 [History Last Taken Unknown] cream base no.175 (bulk) (Versatile Rich topical cream) 1 applic topical .BIW 07/04/23 [History Last Taken Unknown] triamcinolone acetonide 0.1 % topical cream 1 applic topical PRN 07/04/23 [History Last Taken Unknown] Allergy/AdvReac Type Severity Reaction Status Date / Time ofloxacin Allergy Severe SWELLING Verified 07/04/23 07:29 Environmental Allergies: Allergy Intermediate Itching Verified 07/04/23 07:29 Uncoded Family History Grandmother Heart disease Colon cancer Diabetes Grandmother Diabetes Father Rheumatoid arthritis Mother Anxiety Arthritis Depression Brother Asthma Allergies Grandfather Cancer Surgical History History of carpal tunnel surgery History of esophagogastroduodenoscopy (EGD) History of tonsillectomy Hx of cholecystectomy Hx of colonoscopy S/P endometrial ablation Status post hysteroscopy Social History adopted: No household members: family housing: apartment number of children: 3 current occupational status: employed current occupation: [employer]- Patient Liason sexually active: Yes Smoking Status: Never smoker Electronic Cigarette Use: not used alcohol intake: current alcohol intake frequency: holidays/special occasions only details: social substance use type: does not use caffeine: Yes what type of physical activity do you participate in: none and walking frequency: 1-2 times per week seatbelt use: always do you feel safe at home: Yes additional social history: Single ROS ROS ED Constitutional Constitutional ED: Denies chills, fever(s) or sweats Eyes Eyes: Denies blurry vision or change in vision ENT ENT ED: Denies ear pain or sore throat Cardiovascular Cardiovascular: Denies chest pain, palpitations or racing heartbeat Respiratory/Chest Respiratory/Chest: Denies cough, dyspnea or sputum Gastrointestinal Gastrointestinal: Reports abdominal pain; Denies constipation, diarrhea, nausea or vomiting Genitourinary Genitourinary ED: Reports hematuria; Denies dysuria or urinary frequency Musculoskeletal Musculoskeletal: Denies arthralgias, myalgias or neck pain Integumentary Denies abscess, Abrasions or rash Neurologic Neurologic: Denies headache(s), paresthesias or weakness Psychiatric Psychiatric: Denies anxiety, depression, suicidal ideation or suicidal thoughts Endocrine Endocrinology: Denies polydipsia or polyuria EXAM Physical Exam Const Vital Signs: 07/04/23 07:28 07/04/23 07:42 07/04/23 09:30 Temperature 97 F L 97.0 F L Temperature Source Temporal Temporal Pulse Rate 93 116 H 89 Respiratory Rate 14 16 16 Blood Pressure 163/93 H 163/93 H 126/79 H Blood Pressure Mean 116 116 94 Pulse Ox 97 99 99 Oxygen Delivery Method Room Air Room Air Room Air Positive well nourished General Appearance ED: NAD HEENT Reports moist mucous membranes Eyes PERRL Chest Wall inspection of chest normal Resp normal respiratory effort Cardio regular rate and regular rhythm GI GI Narrative: Mild suprapubic pressure. Back/Spine no CVA tenderness Neuro oriented x3 Sensorium / Orientation: alert Psych mental status grossly normal Skin no rashes or lesions noted MDM MDM MDM Narrative Medical decision making narrative: Patient presented with hematuria and feels otherwise well other than some suprapubic pressure. This has been worked up and so far she does not have a urinary tract infection and she states that biopsies have been done and were negative. Patient is not anticoagulated. Urinalysis will be obtained. hCG will be obtained. After discussion patient only wants Tylenol for pain. Will obtain CT of the abdomen pelvis without contrast. Urinalysis shows occult bloodwith 500 protein. RBCs greater than 100 no infectious findings. Patient did have some nausea and was given Zofran. CT of the abdomen pelvis without contrast was obtained and shows no acute process. Given the patient's pain I spoke with Dr. Fair and she wanted the patient in for a repeatUrethral scope cystoscopy given the hematuria and the clots. Patient was amenable to this. IVline was established and basic lab work will be obtained for follow-up on the medical floor by urology. Impression: 1. Hematuria 2. Nausea Lab Data Labs: Laboratory Results - last 24 hr 07/04/23 07:38 Urine Color Red Urine Clarity Turbid Urine pH 5.0 Ur Specific [place] 1.030 Urine Protein 500 H Urine Glucose (UA) Normal Urine Ketones Negative Urine Occult Blood 250 H Urine Nitrite Negative Urine Bilirubin Negative Urine Urobilinogen 1 H Ur Leukocyte Esterase Negative Urine RBC > 100 SEEN Urine WBC 0 SEEN Ur Squamous Epith Cells 0 SEEN Urine Bacteria 0 SEEN Urine Mucus 0 SEEN Urine Test Negative Discharge Plan Triage Chief Complaint: Complaint ED Provider: Cirilo Garcias Dx/Rx/DC Orders Prescriptions: No Action albuterol sulfate 90 mcg/actuation HFA aerosol inhaler 2 puff inhalation Q6H PRN (Reason: shortness of breath or wheezing) Qty: 8.5 1RF dicyclomine 10 mg capsule 10 mg PO TID PRN (Reason: abdominal pain) bupropion HCl [Wellbutrin XL] 300 mg tablet extended release 24 hr 300 mg PO QAM Qty: 90 1RF triamcinolone acetonide 0.1 % cream 1 applic topical PRN clindamycin phosphate 1 % gel 1 applic topical BID Versatile Rich Cream 1 applic topical .BIW Centrum Complete 18-400 mg-mcg tablet 1 tab PO DAILY cephalexin 250 mg capsule 250 mg PO PRN PRN (Reason: AFTER INTERCOURSE) Patient Comments: TAKE 1 CAPSULE BY MOUTH ONCE DAILY AFTER INTERCOURSE meloxicam 15 mg tablet 15 mg PO DAILY Rx Instructions: Do not take in conjunction with other NSAIDs. Tylenol is okay. fluticasone propionate [Flonase Allergy Relief] 50 mcg/actuation spray,suspension 1 spray intranasal DAILY PRN (Reason: allergy symptoms) Rx Instructions: administer into each nostril lisinopril 5 mg tablet 5 mg PO DAILY Qty: 30 2RF ondansetron 4 mg tablet,disintegrating 4 mg PO Q8H PRN (Reason: nausea and vomiting) Qty: 30 5RF fluoxetine 40 mg capsule 40 mg PO DAILY Qty: 90 1RF albuterol sulfate 2.5 mg/0.5 mL solution for nebulization 5 mg inhalation Q6H PRN (Reason: shortness of breath or wheezing) Qty: 30 0RF pantoprazole 40 mg tablet,delayed release (DR/EC) 40 mg PO DAILY Qty: 90 2RF Primary Care Provider: Ashley Gomez NP Referrals: Ashley Gomez PHOTO PRINTER, PHOTO PRINTER-C [Primary Care Provider] - What to do if you have Problems For any increased pain, shortness of breath, bleeding, nausea or vomiting, chestpain, or any unexpected problems, contact your Primary Care Provider. Call [facility] ([phone]) or report to the closest Emergency Room. Call 911 if necessary. 07/04/23 1032 <Electronically signed by Cirilo Garcias DO> Cosigner Signature (if applicable): CC: PHOTO PRINTER-C Ashley Gomez ~ Signed [facility] Work Phone: 1(574) 305-967003-22-2024 History of Present illness Narrative* TERE Chung CNP - 06/18/2023 9:40 AM EDT Images from the original note were not included. 06/18/2023 Marcelino Araiza (: 1975) is a 47 y.o. female , Established patient, here for evaluation of the following chief complaint(s): Follow-up (Medication follow up- adipex ) and Health Maintenance (PNA- declines/PP:/4th Covid) ASSESSMENT/PLAN: 1. Class 2 obesity due to excess calories without serious comorbidity with body mass index (BMI) of37.0 to 37.9 in adult - Encouraged healthy diet and regular exercise. Information provided in AVS on Semaglutide medications and will let me know of her decision. - Also discussed potential referral to [facility]. 2. COVID-19 virus infection - predniSONE (Deltasone) 20 MG tablet; Take 3 tablets daily for 5 days, then 2 tablets daily for 3 days, then 1 tablet daily for 2 days., Normal - Improving. Will do tapering prednisone for symptoms management as well as pain management for shingles. 3. Herpes zoster without complication - predniSONE (Deltasone) 20 MG tablet; Take 3 tablets daily for 5 days, then 2 tablets daily for 3 days, then 1 tablet daily for 2 days., Normal - Discussed signs and symptoms warranting follow up in the office- verbalized understanding. Follow up in about 4 weeks (around 07/16/2023) for follow up obesity. SUBJECTIVE/OBJECTIVE: JUSTO Cochran presents today for follow up on her obesity. Was started on Adipex about 1 month ago and has gained 4 pounds. Wants to stop the medication. Is currently on Wellbutrin and does not want to mess with her dosing in order to take Contrave. Is potentially interested in Wegovy or Ozempic forweight loss instead, but would like to do some research on each of the medications first. Denies personal history of medullary thyroid carcinoma. She tested positive for COVID-19 06/14/23 and is still coughing but is otherwise doing well. Denies shortness of breath or difficulty breathing. Also has concerns regarding a rash that broke out on her left buttock. Is worried she may have shingles and would like this looked at. Symptoms started within the past 3-4 days. 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 Review of Systems Constitutional: Positive for fatigue. Negative for chills and fever. HENT: Negative for congestion. Respiratory: Positive for cough. Negative for chest tightness, shortness of breath and wheezing. Cardiovascular: Negative for chest pain. Skin: Positive for rash. Vitals: 06/18/23 0933 BP: 118/74 Pulse: 79 SpO2: 98% Weight: 244 lb 3.2 oz (111 kg) Body mass index is 37.13 kg/m . Waist Circumference: 52 inches Last 3 MARLENE-7 Scores 06/18/2023 1000 MARLENE-7 Total Score: 4 Last 3 PHQ-2 Scores 06/18/2023 0959 Patient Health Questionnaire-2 Score: 0 Last 3 PHQ-9 Scores 06/18/2023 0959 Patient Health Questionnaire-9 Score: 6 Physical Exam Constitutional: General: She is not in acute distress. Appearance: She is not diaphoretic. Cardiovascular: Rate and Rhythm: Normal rate and regular rhythm. Heart sounds: Normal heart sounds. No murmur heard. No friction rub. Pulmonary: Effort: Pulmonary effort is normal. Skin: General: Skin is warm and dry. Neurological: Mental Status: She is alert and oriented to person, place, and time. Psychiatric: Mood and Affect: Mood normal. Behavior: Behavior normal. Thought Content: Thought content normal. Judgment: Judgment normal. An electronic signature was used to authenticate this note. TERE Chung CNP 06/18/2023 10:30 AM * Juana Nogueira MA - 06/18/2023 9:40 AM EDT Patient verified by last name and . Waist: 52 in documented in this [facility]03-14-2024 [facility]02-02-2024 Telephone encounter Note* Telephone Encounter - TERE Chung CNP - 04/30/2023 12:37 PM EST Rx sent. [facility] scheduled. [id number] Miscellaneous Notes* Telephone Encounter - TERE Chung CNP - 04/30/2023 12:37 PM EST Rx sent. Follow up as scheduled. * Telephone Encounter - Merry Hoffman MA - 04/30/2023 12:09 PM EST Prescription Request: Last medication check: 04/28/23 Last physical exam: 11/02/22 Next scheduled appointment: 11/03/23 Last date of refill on this medication I don't see that we prescribe this for her [id number] Telephone encounter Note* Telephone Encounter - Merry Hoffman MA - 04/30/2023 12:09 PM EST Prescription Request: Last medication check: 04/28/23 Last physical exam: 11/02/22 Next scheduled appointment: 11/03/23 Last date of refill on this medication I don't see that we prescribe this for her [id number] History of Present illness Narrative* Ashley Gomez APRN - ROSALIA - 04/28/2023 10:00 AM EST Images from the original note were not included. 04/28/2023 Marcelino Araiza (: 1975) is a 47 y.o. female , Established patient, here for evaluation of the following chief complaint(s): ER Follow-up ([place] abd pain, possible UTI-urologist advised her [...] for follow from an ER visit at [facility] on 04/21/23 due to RLQ abdominal [...] visit. Was scheduled next week for this. Autunm is doing well on her prescriptions and [...] Thought content normal. Judgment: Judgment normal. Results: [facility] Imaging Services [address] [place] [address] Abdomen/Pelvis W IV Cont ONLY MR#: [id number] Acct: [id number] Name: MARCELINO ARAIZA Rep #: [id number] : 1975 F 47 From: Lamont ross MD PCP: TEJINDER Le Status: REG ER Study: Abdomen/Pelvis W IV Cont ONLY Date of Exam: Exam# [id number] Ordering Dr: Wagner Reynolds MD STUDY: CT ABDOMEN AND PELVIS WITH CONTRAST [...] were used for this CT. COMPARISON: 01/07/2022. FINDINGS: The visualized lung bases are unremarkable. [...] uterus. Normal abdominal wall. Normal osseous structures. CT/Abdomen/Pelvis W IV Cont ONLY IMPRESSION: No definite acute or significant abnormality seen. Electronically Signed: Lamont Ram MD at 16:57 EST , An electronic signature was used to authenticate this note. TERE Chung CNP 04/28/2023 10:31 AM documented in this [facility]01-24-2024 Discharge summary Author Wagner Reynolds [facility] April 21, 2023 7:11pm Note Date/Time April 21, 2023 4 :20pm [facility] Medical Records Department [address] [place] [address] Emergency Department Summary 04/21/23 MR#: [id number] Acct: [id number] Name: MARCELINO ARAIZA Rep #:[id number] : 1975 47 From: Wagner Reynolds MD PCP: TEJINDER Le Status:REG ER Location: ED HPI HPI - GI History of Present Illness Chief Complaint: Abd Pain Informant: patient Abdominal Pain/Flank Pain Onset: Today and Yesterday Context: Gradual Onset Timing: Continuous Location: RLQ Current Severity: Mild Maximum Severity: Mild Nausea/Vomiting/Emesis GI Symptom: Positive for Nausea; Negative for Vomiting Onset: Today Diarrhea/Melena/Hematochezia GI Symptom: Positive for Diarrhea; Negative for Melena or Hematochezia Onset: Today and Yesterday Stool Quality: Positive for Loose Severity: Mild Associated Symptoms Associated Symptoms: Negative for Dysuria, Frequency, Hematuria or Urgency Narrative Narrative: 47-year-old female prior cholecystectomy. Also history of hypertension depression. Send right lower quadrant pain since yesterday morning. Associatednausea and some diarrhea. No dysuria. No fever. No abdominal trauma. No prior history of similar pain. Recent Illness/Hospitalization: No PFSH PFSH Medical History Abnormal bruising Abnormal weight loss Acid reflux Anemia Asthma Back pain Bloating Chronic diarrhea Cough Depression Difficulty balancing Early satiety Fatigue Herpes zoster History of anxiety History of gastrointestinal disorder History of skin cancer Hx of carpal tunnel syndrome Hx of seasonal allergies Hx: UTI (urinary tract infection) IBS (irritable bowel syndrome) LUQ abdominal pain Menorrhagia with regular cycle Migraines Nausea Pelvic pain Vitamin D deficiency Home Medications albuterol sulfate 90 mcg/actuation aerosol inhaler 2 puff inhalation Q6H PRN shortness of breath or wheezing #8.5 grams 12/10/21 [Rx Last Taken Unknown] blood pressure monitor #1 ea 12/10/21 [Rx Last Taken Unknown] dicyclomine 10 mg capsule 10 mg PO TID 06/03/22 [History Last Taken Unknown] bupropion HCl 300 mg 24 hr tablet, extended release (Wellbutrin XL) 300 mg PO QAM #90 tabs 06/24/22 [Rx Last Taken Unknown] lisinopril 5 mg tablet 5 mg PO DAILY #30 tabs 08/13/22 [Rx Last Taken Unknown] fluticasone propionate 50 mcg/actuation nasal spray,suspension (Flonase Allergy Relief) 1 spray intranasal DAILY #16 grams 09/01/22 [Rx Last Taken Unknown] meloxicam 15 mg tablet 15 mg PO .every other day Pain #15 tabs 09/01/22 [Rx Last Taken Unknown] ondansetron 4 mg disintegrating tablet 4 mg PO Q8H PRN nausea and vomiting #30 tabs 09/01/22 [Rx Last Taken Unknown] fluoxetine 40 mg capsule 40 mg PO DAILY #90 caps 09/21/22 [Rx Last Taken Unknown] albuterol sulfate 2.5 mg/0.5 mL solution for nebulization 5 mg inhalation Q6H PRN shortness of breath or wheezing #30 ea 09/24/22 [Rx Last Taken Unknown] [id number]-[id number] 8 mg-folic 400 mcg-K 50 mcg-lutein 300 mcg tablet (Centrum Silver Women) 1 tab PO DAILY 11/06/22 [History Last Taken Unknown] metoclopramide HCl 5 mg tablet (Reglan) 2.5 mg (1/2 x 5 mg) PO BID #14 tabs 12/11/22 [Rx Last Taken Unknown] diclofenac sodium 20 mg/gram/actuation (2 %) topical soln metered-dose pump (Pennsaid) 2 pump topical BID Pain #112 grams 12/18/22 [Rx Last Taken Unknown] pantoprazole 40 mg tablet,delayed release 40 mg PO DAILY #90 tabs 01/19/23 [Rx Last Taken Unknown] Allergy/AdvReac Type Severity Reaction Status Date / Time ofloxacin Allergy Severe SWELLING Verified 04/21/23 14:40 Family History Grandmother Heart disease Colon cancer Diabetes Grandmother Diabetes Father Rheumatoid arthritis Mother Anxiety Arthritis Depression Brother Asthma Allergies Grandfather Cancer Surgical History History of carpal tunnel surgery History of tonsillectomy Hx of cholecystectomy S/P endometrial ablation Status post hysteroscopy Social History adopted: No household members: family housing: apartment number of children: 3 current occupational status: employed 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 Nausea. Diarrhea. Review of Systems ROS Unobtainable: Denies due to encephalopathy Constitutional Constitutional ED: Denies chills or fever(s) ENT ENT ED: Denies ear pain Cardiovascular Cardiovascular: Denies chest pain Respiratory/Chest Respiratory/Chest: Denies cough or dyspnea Gastrointestinal Gastrointestinal: Reports abdominal pain, diarrhea and nausea; Denies constipation, melena or vomiting Genitourinary Genitourinary ED: Denies dysuria or hematuria Musculoskeletal Musculoskeletal: Denies arthralgias, back pain or myalgias Integumentary Denies abscess or Abrasions Neurologic Neurologic: Denies headache(s) Psychiatric Psychiatric: Denies anxiety or depression Endocrine Endocrinology: Denies polydipsia Hematologic/Lymphatic Hematologic/Lymphatic: Denies easy bleeding Allergic/Immunologic Allergic/Immunologic ED: Denies mouth swelling EXAM Physical Exam Narrative Exam Narrative: 47-year-old female no acute distress. Vital signs stable afebrile. HEENT exam unremarkable. Lungs clear. Heart regular rhythm about 110 no murmur. Abdomen soft, nondistended, with mild right lower quadrant tenderness only. Right upperand left side completely nontender. No hernia or mass. No distention or obstruction. Moving all 4 extremities. Nontender no edema. Neurologically awake alert. No focal motor deficits. Back nontender. Moving all 4 extremities. Nontender no edema. Neurologically awake alert. No focal motor deficits. Back nontender. Const Vital Signs: 04/21/23 14:41 04/21/23 18:00 Temperature 96.9 F L Temperature Source Temporal Pulse Rate 122 H 70 Respiratory Rate 18 16 Blood Pressure 138/91 H Blood Pressure Mean 106 Pulse Ox 97 Oxygen Delivery Method Room Air Positive well nourished and well developed; Negative for cachectic, contracturesor unkempt General Appearance ED: well developed and NAD; Negative for unkempt, cachectic, contractures or pallor Nutritional Appearance: Negative for cachectic HEENT Reports moist mucous membranes normocephalic and atraumatic; Negative for trauma or tenderness Eyes PERRL and EOMs intact bilaterally General Eye ED: Negative for pale conjunctiva or scleral icterus Neck no lymphadenopathy, supple and no JVD General: Negative for tenderness Carotids: Negative for other Lymph Lymphatic: Negative for other Resp normal respiratory effort and clear to auscultation bilaterally Effort and Inspection: Negative for respiratory distress Auscultation: Negative for rales, rhonchi or wheezes Cardio regular rate, regular rhythm, S1 normal heart sound, S2 normal heart sound and no murmurs Rate: Negative for bradycardia or tachycardic Rhythm: Negative for abnormal rhythm GI non-distended and no masses; Negative for non-tender Inspection: Negative for abdominal distention Auscultation: normoactive bowel sounds Palpation: soft and tender; Negative for guarding, rigid, hepatomegaly, splenomegaly, hernia, mass, pulsatile mass or rebound tenderness present Back/Spine no CVA tenderness General Back: Negative for CVA tenderness Cervical Spine: Negative for cervical spine tenderness Thoracic Spine / Upper Back: Negative for thoracic spinal tenderness Lumbar Spine / Lower Back: Negative for lumbar spinal tenderness Coccyx: Negative for other Extremity full ROM General Extremety ED: Negative for edema or tenderness General Extremity: Negative for edema Neuro CN's II-XII intact bilaterally and moves all extremities Sensorium / Orientation: alert, oriented to person, oriented to place and oriented to time; Negative for orientation impaired or confused Motor Exam: strength 5/5 throughout Psych mental status grossly normal and thought process normal Appearance: Negative for unkempt Attitude: No agitated Mood & Affect: Negative for depressed, anxious or tearful Skin no wounds General Skin Exam: Negative for jaundice or pallor Lesions: no lesions Rashes: no rashes Trauma: Negative for abrasion Nails: Negative for discolored MDM MDM MDM Narrative Medical decision making narrative: 47-year-old female right lower quadrant abdominal pain with loose stools. Rule out appendicitis even though clinically I think is less likely. CAT scan and labs. Patient did not want medications for pain or nausea or anything at this time. Repeat exam at 7 PM patient is doing well. She and I went over all her normal blood work, urinalysis and CAT scan she be discharged home with right-sided abdominal pain of uncertain etiology. History & Record Review Discussion w/independent historian: Patient Additional record(s) reviewed:: Prior inpatient record, Prior outpatient record,Prior ED visit and Prior labs Lab Data Attestation: I reviewed the patient's lab results. Lab results narrative: CBC is unremarkable. White count of 9. H&H 14 and 44. Platelets 353. Electrolytes show sodium 134 gap of 5. Normal BUN of 18 creatinine 0.9. Glucose 152. Serum test negative. Urinalysis shows no acute abnormality. No nitrates. Rare bacteria. No white or red cells. CAT scan the abdomen with IV contrast shows no acute abnormality. Labs: Laboratory Results - last 24 hr 04/21/23 04/21/23 14:53 15:50 WBC 9.2 RBC 4.89 Hgb 14.8 Hct 44.1 MCV 90.2 MCH 30.3 MCHC 33.6 RDW Std Deviation 41.1 RDW Coeff of Wallace 12.4 Plt Count 353 MPV 9.9 Immature Gran % (Auto) 0.100 Neut % (Auto) 60.3 Lymph % (Auto) 29.7 [place] % (Auto) 4.9 Eos % (Auto) 3.7 Baso % (Auto) 1.3 H Absolute Neuts (auto) 5.5 Absolute Lymphs (auto) 2.73 Nucleated RBC % 0 Sodium 134 L Potassium 4.0 Chloride 108 H Carbon Dioxide 21.0 Anion Gap 5 BUN 18 Creatinine 0.90 Est GFR (MDRD) Af Amer 87 Est GFR (MDRD) Non-Af 72 BUN/Creatinine Ratio 20.0 Glucose 152 H Calcium 9.1 Serum , Qual NEGATIVE Urine Color Yellow Urine Clarity Clear Urine pH 6.0 Ur Specific Sibley 1.010 Urine Protein Negative Urine Glucose (UA) Normal Urine Ketones Negative Urine Occult Blood 10 H Urine Nitrite Negative Urine Bilirubin Negative Urine Urobilinogen Normal Ur Leukocyte Esterase Negative Urine RBC 0-5 SEEN Urine WBC 0 SEEN Ur Squamous Epith Cells 0-5 SEEN Urine Bacteria RARE Urine Mucus 0 SEEN Radiography Diagnostic Testing: Clinical Impression(s) from Imaging Studies Abdomen/Pelvis CT 04/21/23 16:42 IMPRESSION: No definite acute or significant abnormality seen. Electronically Signed: Lamont Ram MD at 16:57 EST , Discharge Plan Triage Chief Complaint: Abd Pain ED Provider: Wagner Reynolds Dx/Rx/DC Orders Clinical Impression: Abdominal pain Instructions: ED Abdominal Pain Unkn Cause Fem Prescriptions: No Action albuterol sulfate 90 mcg/actuation HFA aerosol inhaler 2 puff inhalation Q6H PRN (Reason: shortness of breath or wheezing) Qty: 8.5 1RF (DME) blood pressure monitor Kit See Rx Instructions .Route Qty: 1 0RF Rx Instructions: As directed dicyclomine 10 mg capsule 10 mg PO TID bupropion HCl [Wellbutrin XL] 300 mg tablet extended release 24 hr 300 mg PO QAM Qty: 90 1RF Centrum Silver Women 8 mg iron-400 mcg-50 mcg tablet 1 tab PO DAILY lisinopril 5 mg tablet 5 mg PO DAILY Qty: 30 2RF ondansetron 4 mg tablet,disintegrating 4 mg PO Q8H PRN (Reason: nausea and vomiting) Qty: 30 5RF fluticasone propionate [Flonase Allergy Relief] 50 mcg/actuation spray,suspension 1 spray intranasal DAILY Qty: 16 3RF Rx Instructions: administer into each nostril meloxicam 15 mg tablet 15 mg PO .every other day Qty: 15 3RF Rx Instructions: Do not take in conjunction with other NSAIDs. Tylenol is okay. fluoxetine 40 mg capsule 40 mg PO DAILY Qty: 90 1RF albuterol sulfate 2.5 mg/0.5 mL solution for nebulization 5 mg inhalation Q6H PRN (Reason: shortness of breath or wheezing) Qty: 30 0RF metoclopramide HCl [Reglan] 5 mg tablet 2.5 mg PO BID Qty: 14 0RF Rx Instructions: take prior to two largest meals of the day diclofenac sodium [Pennsaid] 20 mg/gram /actuation(2 %) solution in metered-dose pump 2 pump topical BID Qty: 112 0RF Rx Instructions: apply to left knee BID pantoprazole 40 mg tablet,delayed release (DR/EC) 40 mg PO DAILY Qty: 90 2RF Primary Care Provider: Ashley Gomez NP Referrals: Ashley Gomez NP, PHOTO PRINTER-C [Primary Care Provider] - 3-5 Days if not improving Activity Restrictions/Additional Instructions: Your labs, CAT scan and urine were all normal. Tylenol Motrin for pain. Follow- up if not improving. Disposition Disposition: Home, Self Care What to do if you have Problems For any increased pain, shortness of breath, bleeding, nausea or vomiting, chestpain, or any unexpected problems, contact your Primary Care Provider. Call [facility] ([phone]) or report to the closest Emergency Room. Call 911 if necessary. 04/21/23 9971 <Electronically signed by Wagner Reynolds MD> Cosigner Signature (if applicable): CC: PHOTO PRINTER-C Ashley Jason ~ Signed [facility] Work Phone: 1(832) 353-298210-04-2023 Telephone encounter Note* Telephone Encounter - TERE Chung CNP - 12/30/2022 1:42 PM EDT Rx sent. Follow up as scheduled. [id number] Miscellaneous Notes* Telephone Encounter - TERE Chung CNP - 12/30/2022 1:42 PM EDT Rx sent. Follow up as scheduled. * Telephone Encounter - Merry Hoffman MA - 12/30/2022 8:50 AM EDT Prescription Request: Last medication check: none Last physical exam: 10/30/22 Next scheduled appointment: 05/05/23 Last date of refill on this medication we have not prescribed this pt was new on 10/30/22 documented in this [facility] [id number] Telephone encounter Note* Telephone Encounter - Merry Hoffman MA - 12/30/2022 8:50 AM EDT Prescription Request: Last medication check: none Last physical exam: 10/30/22 Next scheduled appointment: 05/05/23 Last date of refill on this medication we have not prescribed this pt was new on 10/30/22 [id number] History of Present illness Narrative* TERE Chung CNP - 12/16/2022 11:00 AM EDT Images from the original note were not included. 12/16/2022 Marcelino Araiza (: 1975) is a 46 y.o. female , Established patient, here for evaluation of the following chief complaint(s): Fall and Knee Pain (Left knee pain) ASSESSMENT/PLAN: 1. Injury due to fall, initial encounter - XR knee 4+ views left - traMADol (Ultram) 50 MG tablet; Take 1 tablet (50 mg) by mouth every 6 hours as needed for severepain (7-10) for up to 5 days., Starting [...] mouth every 6 hours as needed for severepain (7-10) for up to 5 days., Starting Wed12/16/2022, Until Wed12/21/2022 at 2359, Normal 3. Flu vaccine need - Flu vaccine, quadrivalent, recombinant, preservative free Follow up for follow up pending x-ray results. SUBJECTIVE/OBJECTIVE: JUSTO Cochran presents today with concerns of a left knee injury. States she was walking barefoot inher garage on Wednesday last week and slipped [...] pain radiating down or up her left leg.Denies history of left knee injuries or surgeries. [...] note. TERE Chung CNP 12/16/2022 11:05 AM * Dione Lemus MA - 12/16/2022 11:00 AM EDT After obtaining consent, and per orders of Ashley GRIMALDO, injection of 0.5ml flu vaccine given in right deltoid by Dione Lemus. Patient instructed to report any adverse reaction immediately. documented in this encounterSOhioHealth [facility] Medical [id number] Telephone encounter Note* Telephone Encounter - TERE Chung CNP - 11/23/2022 10:40 AM EDT Rx sent. Follow up as scheduled. [id number] Miscellaneous Notes* Telephone Encounter - TERE Chung CNP - 11/23/2022 10:40 AM EDT Rx sent. Follow up as scheduled. * Telephone Encounter - Dione Lemus MA - 11/23/2022 10:22 AM EDT Prescription Request: Last medication check: none Last physical exam: 10/30/22 Next scheduled appointment: 05/05/23 Last date of refill on this medication we have not filled this for her yet. documented in this [place] [id number] Telephone encounter Note* Telephone Encounter - Dione Lemus MA - 11/23/2022 10:22 AM EDT Prescription Request: Last medication check: none Last physical exam: 10/30/22 Next scheduled appointment: 05/05/23 Last date of refill on this medication we have not filled this for her yet. [place] [id number] Telephone encounter Note* Telephone Encounter - Dione Lemus MA - 10/30/2022 8:52 AM EDT Updating HM for colonoscopy 11/07/20 and pap 07/16/22 [place] [id number] Miscellaneous Notes* Telephone Encounter - Dione Lemus MA - 10/30/2022 8:52 AM EDT Updating HM for colonoscopy 11/07/20 and pap 07/16/22 documented in this [place] [id number] History of Present illness Narrative* TERE Chung CNP - 10/30/2022 8:00 AM EDT Images from the original note were not included. Patient Marcelino Araiza 46 y.o. female, presents today with Chief Complaint Patient presents with Establish Care thigh pain Health Maintenance Hep C--has had before, HIV--has had before, Cervical--07/08/22 came back abnormal,had Colposcopy 08/20/22 Everything came back okay -next Appointment 07/14/2023 , Colon--11/07/20 go every 5 years becauseof history. Actually Have an Appointment 11/06/22 w/Dr Carter for check up. , Mammo--04/29/22, MMR--had vaccines as a kid, Tdap--needs to check dates, COVID 4--has not had . HPI- Marcelino Araiza presents today to establish care and for her annual physical. Previous PCP was Dr. Murphy through [facility] in [place]. Does follow up with other specialists- Dr. Tam (GI in [place]), Ships Equipment Engineer- Dr. Juárez ([place]), Dr. Ashley Fair (Urology in [place]), Dr. Marshall (Pulmonology), Dr. Lim (Dermatology). Past [...] PCP to see what she may be duefor. Last Tdap was in April of 2011- [...] mood, self-injury and suicidal ideas. The patient isnot nervous/anxious. BP 118/66 Pulse 80 Ht 5' [...] tenderness with deep palpation. Negative for edema, erythema,or palpable nodule. Normal ROM. Left lower leg: [...] serious comorbidity with body mass index (BMI) of33.0 to 33.9 in adult - CBC - [...] by mouth daily. Do not crush, chew, orsplit. dicyclomine (Bentyl) 10 MG capsule Take 10 [...] tablet Take by mouth every other day. tsgizoisslnb-exnr-vxxvjmxo-folic acid (Centrum) chewable tablet Chew 1 tablet daily. ondansetron (Zofran) 4 MG tablet Take 4 mg by mouth every 8 hours as needed for nausea or vomiting. pantoprazole (ProtoNix) 40 MG EC tablet Take 40 mg by mouth every morning (before breakfast). Do not crush, chew, or split. No facility-administered encounter medications on file as of 10/30/2022. TERE Chung CNP 10/30/2022 8:30 AM * Dione Lemus MA - 10/30/2022 8:00 AM EDT After obtaining consent, and per orders of Ashley GRIMALDO, injection of 0.5ml tdap given in left deltoid by Dione Lemus. Patient instructed to report any adverse reaction immediately. documented in this [facility]04-12-2023 NotePap Smear Specimen AdequacyApril 2022 11:12amComment.Satisfactory for evaluation. No endocervical component is identified.[facility] A#[id number] HospitalCommunising memorial hospital on above:Satisfactory for evaluation. No endocervical component is identified.07-08-2022 NotePap Smear Specimen AdequacyApril 2022 11:12amComment.Satisfactory for evaluation. No endocervical component is identified.[facility] A#[id number] HospitalCommunising memorial hospital on above:Satisfactory for evaluation. No endocervical component is identified. 07-08-2022 NotePap Smear Specimen AdequacyApril 2022 11:12amComment. Satisfactory for evaluation. No endocervical component is identified.[facility] A#[id number] HospitalCommunising memorial hospital on above:Satisfactory for evaluation. No endocervical component is identified.06-15-2022 Miscellaneous Notes* Telephone Encounter - Christa Cesar - 06/15/2022 2:27 PM EDT Patient given results and verbalized understanding of instructions given. Christa Cesar * Telephone Encounter - Nadia Bolanos PA-C - 06/15/2022 1:52 PM EDT Please let patient know that her D-dimer was within normal range and US was negative for DVT. Recommend treatment as we reviewed at the office visit. Follow up in 5-7 days if not improving, sooner if worsening symptoms. Seek care in ER for fever >100, worsening SOB, chest pain, overall worsening. Nadia Bolanos PA-C 06/15/2022 documented in this encounterW[facility]03-20-2023 History of Present illness Narrative* Analilia Gupta RDMS - 06/15/2022 1:00 PM EDT Radiology Service Progress Note PATIENT NAME: Marcelino Araiza DATE OF SERVICE: June 15, 2022 TIME: 1:30 PM PATIENT IDENTITY VERIFICATION COMPLETED USING TWO (2) IDENTIFIERS: Name and Date of confirmedby patient verbally. FALL SCREENING: Has the patient [...] 15, 2022 1:30 PM documented in this encounterWvumedicine [facility]03-20-2023 History of Present illness Narrative* Marcelino Muhammad RT(R) - 06/15/2022 11:20 AM EDT Radiology Service Progress Note PATIENT NAME: Marcelino Araiza DATE OF SERVICE: June 15, 2022 TIME: 11:29 AM PATIENT IDENTITY VERIFICATION COMPLETED USING TWO (2) IDENTIFIERS: Name and Date of confirmedby patient verbally. FALL SCREENING: Has the patient [...] RT Fernando(R) June 15, 2022 11:29 AM documented in this encounterWvumed[facility]03-20-2023 History of Present illness Narrative* Nadia Bolanos PA-C - 06/15/2022 11:08 AM EDT 06/15/2022 Patient presents with: Cough: Chest congestion, [...] + nasal congestion and drainage. Notes cold sweats. Denies fever/chills, vomiting, diarrhea. She [facility] and negative [facility]. No calf pain, edema. Denies chest pain. Non- smoker. No history of recent ravel. Not on [...] (FLONASE) 50 mcg/actuation nasal spray Use 1 Needles in each nostril once daily. albuterol HFA [...] TABLET - BENZONATATE 100 MG CAPSULE - B-IZQXN-cayqcxgi 2. SOB (shortness of breath) - ICD9: [...] and when to seek care sooner. - [id number]-[id number]-[id number] - US DVT LOWER RT-normal The patient indicates understanding of these issues and agrees with the plan. Nadia Bolanos PA-C documented in this encounterWvumedicine [facility] Hospital02-27-2023 Miscellaneous Notes* Telephone Encounter - Marck Alexander RN - 05/25/2022 12:08 PM EST Pharmacy escripts requesting the following refill: Requested Prescriptions Pending Prescriptions Disp Refills dicyclomine (BENTYL) 10 mg capsule 30 capsule 3 Sig: Take 1 capsule by mouth three times daily as needed (abdominal pain). Please review and advise. Marck Alexander RN documented in this encounterWvumedicine [facility]01-06-2023 Miscellaneous Notes* Telephone Encounter - Marck Alexander RN - 04/03/2022 4:25 PM EST Attempted to call the patient. No answer. Left a detailed message. Marck Alexander RN * Telephone Encounter - Marck Alexander RN - 04/03/2022 4:24 PM EST ----- Message from Sada Snyder MD sent at 04/03/2022 8:15 AM EST ----- pH impedance are normal acid exposure she does have some reflux hypersensitivity meaning she may experience reflux at a stronger level than normal. Pain may be in fact due to sensitivity to reflux, recommend she continue FD guard, restart Prilosec and still obtain breath testing. documented in this encounterWvumedicine [facility]01-04-2023 History of Present illness Narrative* Cheryl Tucker LPN - 04/01/2022 12:22 PM EST Name: Marcelino Araiza CC#: [id number] Date: 04/01/2022 24 HOUR pH PROBE REMOVAL The pH probe was removed by patient and the data was downloaded from the division roadmaster for physician review. Cheryl Tucker LPN documented in this encounterWvumedicine [facility] Hospital12-22-2022 History of Present illness Narrative* Cheryl Tucker LPN - 03/19/2022 12:01 PM EST Name: Marcelino Araiza CCF#: [id number] Date: 03/19/2022 24 HOUR pH PROBE INSERTION Indication: Abdominal Pain Patient has been NPO since last evening. Pain Assessment: No pain is present. Testing off meds - , Prilosec (omperazole)40 mg, twice daily last taken 7 days ago. A local anesthetic 1.5 cc 2% Viscous Lidocaine A single sensor pH probe was inserted the left naresto 33cm, ph insertion from EGD measurement of the z-line with impedance. Patient education: The patient was verbally instructed how to record events and symptoms. Written instructions with contact telephone numbers was provided. The patient will return tomorrow for probe removal. Cheryl Tucker LPN documented in this [facility]12-20-2022 Miscellaneous Notes* Telephone Encounter - TONNY Perez - 03/17/2022 1:51 PM EST Called patient to reschedule appointment from 03/18 to Apr 24, 2022 at 1000 am.TONNY Perez documented in this [facility]12-15-2022 History of Present illness Narrative* TONNY Perez - 03/12/2022 8:46 AM EST Glucose - SIBO Hydrogen Breath Test March 12, 2022 Referring Physician: Sada Snyder MD Indication Bloating, Abdominal pain, Diarrhea, Milk intolerance Prep: 4 weeks followin hour before: No Smoking Day of test - No gum chewing Pain Level: none Baseline Hydrogen: 1 Methane: 8 Stephanieya Claudia, CT Time given: 935am 75 grams [...] hour, 30 minutes Hydrogen: 2 Methane: 8 Nikkiya Claudia, CT Symptoms developed during the study: Flatulence/Gas,achy stomach Patient Results Preliminary Test Results (not given to patient): Pending Shabbir Taylor CT Patient must be = Hydrogen >20 or Methane >10 in order to be positive for Bacterial Overgrowth documented in this encounterWvumed[facility]12-08-2022 History of Present illness Narrative* Mickey Andres MD - 03/05/2022 9:26 AM EST Rev'd documented in this encounterWvumedicine [facility]12-07-2022 History of Present illness Narrative* TONNY Perez - 03/04/2022 2:46 PM EST LACTOSE HYDROGEN BREATH TEST For Lactose Intolerance Date: March 04, 2022 Referring Physician: Sada Snyder MD Chief Complaint Diarrhea Symptoms prior to start of study: None Lactose 25 grams given at: 955am Start Time: 1000am Baseline Hydrogen PPM: 3 Methane PPM: 9 Sohailkiya Claudia, CT Time: 1020am / 20 minutes Hydrogen PPM: 2 Methane PPM: 8 Sohailkiya Claudia, CT Time: 1040am / 40 minutes Hydrogen PPM: 3 Methane PPM: 8 Nikkiya Claudia, CT Time: 1100am / 60 minutes Hydrogen PPM: 2 Methane PPM: 9 Nikkiya Claudia, CT Time: 1120am / 120 minutes Hydrogen PPM: 2 Methane PPM: 8 TONNY Perez Time: 1140am / 180 minutes Hydrogen PPM: 3 Methane PPM: 8 TONNY Perez Symptoms developed during the study period: None Patient Results Preliminary Test Results (not given to patient): Pending TONNY Perez documented in this encounterWvumed[facility]11-16-2022 Miscellaneous Notes* Telephone Encounter - Paulina Nunez LPN - 02/11/2022 10:44 AM EST Patient phones requesting refills as follows: Last office visit: Visit date not found Next office visit: Visit date not found Requested Prescriptions Pending Prescriptions Disp Refills omeprazole (PRILOSEC) 40 mg capsule 60 capsule 3 Sig: Take 1 capsule by mouth twice daily. Please review and advise. Paulina Nunez LPN Please file if appropriate documented in this encounterWvumedicine [facility]10-27-2022 Miscellaneous Notes* Telephone Encounter - Marck Alexander RN - 01/22/2022 9:54 AM EDT GI workup by Dr. Snyder has been faxed per pt request. Marck Alexander RN documented in this encounterWvumedicine [facility]10-10-2022 History of Present illness Narrative* Ashley Owens APRN.CHIEF CATALYST OPERATOR - 01/05/2022 7:19 PM EDT CC: Patient presents with: UTI: Burning with urination, lower abd pain x2 days Patient has significant history of UTIs says this feels exactly the same no different. JUSTO Araiza is a 46 year old female who presents with complaint of possible UTI. These symptomshave been present for 2 days. Associated symptoms: [...] (FLONASE) 50 mcg/actuation nasal spray Use 1 Needles in each nostril once daily. omeprazole (PRILOSEC) [...] mg capsule Take 1 capsule by mouth twicedaily for 5 days. FLUoxetine 10 mg tablet [...] plan. Ashley Owens APRN.ROSALIA documented in this encounterWvumedicine [facility] Hospital07-06-2022 Miscellaneous Notes* Telephone Encounter - Keila Gabriel LPN - 10/01/2021 10:35 AM EDT Pt requesting refills on the following medication. Please file if appropriate. documented in this encounterWvumedicine [facility]11-09-2020 History of Present illness Narrative* Marcelino Muhammad (Rt)Gonzalo - 02/05/2020 12:00 PM EST Radiology Service Progress Note PATIENT NAME: Marcelino Araiza DATE OF SERVICE: February 05, 2020 TIME: 12:06 PM PATIENT IDENTITY VERIFICATION COMPLETED USING TWO (2) IDENTIFIERS: Name and Date of confirmedby patient verbally. FALL SCREENING: Has the patient [...] IV DATA: Not applicable SIGNED BY: RT Fernando February 05, 2020 12:06 PM documented in this [facility] note Author Norma Cardona [facility] July 05, 2023 2:48pm Note Date/Time July 05, 2023 2:48 pm [facility] Medical Records Department [address] [place] [address] Counseling Note - Pharmacy 07/05/23 1446 MR#: [id number] Acct: [id number] Name: BRENDANMARCELINO HOWARD Rep #:[id number] : 1975 47 From: Norma Cardona PCP: TEJINDER Le Status:ADM RICKY Y Location: [place] [address] Pharmacy [facility] Service has performed discharge medication reconciliation and counseling for this patient. 1. CEPHALEXIN 500MG PO Q12 X 3 DAYS 2. OXYCODONE/ACETAMINOPHEN 5/325MG 1T PO Q8H PRN PAIN 3. PHENAZOPYRIDINE 200MG PO TID PRN BLADDER SPASMS X 7 DAYS The patient's discharge medication list was reviewed for discrepancies and discrepancies were resolved. The patient was counseled on the following discharge medications and changes in medications for homegoing were reviewed. The Reason for Use, instructions for use, and potential side effects were reviewed for all new medications. The patient's questions regarding all of their medications were answered. The patient was able to verbally demonstrate an understanding of their dischargemedications. Medications at Discharge Home Medications albuterol sulfate 90 mcg/actuation aerosol inhaler 2 puff inhalation Q6H PRN shortness of breath or wheezing #8.5 grams 12/10/21 dicyclomine 10 mg capsule 10 mg PO TID PRN abdominal pain 06/03/22 bupropion HCl 300 mg 24 hr tablet, extended release (Wellbutrin XL) 300 mg PO QAM #90 tabs 06/24/22 lisinopril 5 mg tablet 5 mg PO DAILY #30 tabs 08/13/22 ondansetron 4 mg disintegrating tablet 4 mg PO Q8H PRN nausea and vomiting #30 tabs 09/01/22 fluoxetine 40 mg capsule 40 mg PO DAILY #90 caps 09/21/22 albuterol sulfate 2.5 mg/0.5 mL solution for nebulization 5 mg inhalation Q6H PRN shortness of breath or wheezing #30 ea 09/24/22 pantoprazole 40 mg tablet,delayed release 40 mg PO DAILY #90 tabs 01/19/23 cephalexin 250 mg capsule 250 mg PO PRN PRN AFTER INTERCOURSE 06/03/23 fluticasone propionate 50 mcg/actuation nasal spray,suspension (Flonase Allergy Relief) 1 spray intranasal DAILY PRN allergy symptoms 06/03/23 meloxicam 15 mg tablet 15 mg PO DAILY Pain 06/03/23 multivitamin-ferrous fumarate-folic acid 18 mg-400 mcg tablet (Centrum Complete)1 tab PO DAILY 06/03/23 clindamycin phosphate 1 % topical gel 1 applic topical BID 07/04/23 cream base no.175 (bulk) (Versatile Rich topical cream) 1 applic topical .BIW 07/04/23 triamcinolone acetonide 0.1 % topical cream 1 applic topical PRN 07/04/23 cephalexin 500 mg capsule 500 mg PO Q12 post-operative 3 days #6 CAPSULES 07/05/23 oxycodone-acetaminophen 5 mg-325 mg tablet (Percocet) 1 tab PO Q8H PRN pain 3 days #10 tabs 07/05/23 phenazopyridine 200 mg tablet (Pyridium) 200 mg PO TID PRN PRN Bladder Spasms 7 days #30 tabs 07/05/23 07/05/23 1448 <Electronically signed by Norma Cardona> Date _ Norma Cardona Cosigner Signature (if applicable): Date CC: ~ Signed [facility] Work Phone: Discharge summary Author Ashley Fair [facility] June 10, 2023 7:55am Note Date/Time June 10, 2023 7:5 3am [facility] Medical Records Department [facility] [place] [address] Instructions for Home/Discharge Instructions 06/10/23 0752 MR#: [id number] Acct: [id number] Name: MARCELINO ARAIZA Rep #:[id number] : 1975 47 From: Ashley Sanchez PCP: TEJINDER Le Status:REG SDC Discharge Instructions Diet Discharge Diet: No restrictions Activity Discharge Activity: Return to Normal Activity Dressing / Incision Call your doctor if you observe: Fever of 101 or Higher, Inability to urinate and Inability to have a bowel movement Follow Up Care Please Follow Up With: Ashley Fair MD When: The office will call her to make arrangements. Test Results: Test results from this visit will be discussed in further detail at your follow- up appointment, if applicable. Discharge Plan Admission Attending Provider: Ashley Fair Primary Care Provider: Ashley Gomez NP Consulting Providers: Santana Crespo Discharge Orders/Prescriptions Prescriptions: New oxycodone-acetaminophen [Percocet] 5-325 mg tablet 1 tab PO Q8H PRN (Reason: pain) 1 Days Qty: 3 0RF Continued albuterol sulfate 90 mcg/actuation HFA aerosol inhaler 2 puff inhalation Q6H PRN (Reason: shortness of breath or wheezing) Qty: 8.5 1RF dicyclomine 10 mg capsule 10 mg PO TID PRN (Reason: abdominal pain) bupropion HCl [Wellbutrin XL] 300 mg tablet extended release 24 hr 300 mg PO QAM Qty: 90 1RF Centrum Complete 18-400 mg-mcg tablet 1 tab PO DAILY cephalexin 250 mg capsule 250 mg PO PRN PRN (Reason: AFTER INTERCOURSE) Patient Comments: TAKE 1 CAPSULE BY MOUTH ONCE DAILY AFTER INTERCOURSE phentermine 37.5 mg tablet 37.5 mg PO DAILY Patient Comments: Take 1 tablet (37.5 mg) by mouth every morning (before breakfast). BMI 36.49 meloxicam 15 mg tablet 15 mg PO .QOD Rx Instructions: Do not take in conjunction with other NSAIDs. Tylenol is okay. fluticasone propionate [Flonase Allergy Relief] 50 mcg/actuation spray,suspension 1 spray intranasal DAILY PRN (Reason: allergy symptoms) Rx Instructions: administer into each nostril diclofenac sodium [Pennsaid] 20 mg/gram /actuation(2 %) solution in metered-dose pump 2 pump topical BID PRN (Reason: Pain) Rx Instructions: apply to left knee BID lisinopril 5 mg tablet 5 mg PO DAILY Qty: 30 2RF ondansetron 4 mg tablet,disintegrating 4 mg PO Q8H PRN (Reason: nausea and vomiting) Qty: 30 5RF fluoxetine 40 mg capsule 40 mg PO DAILY Qty: 90 1RF albuterol sulfate 2.5 mg/0.5 mL solution for nebulization 5 mg inhalation Q6H PRN (Reason: shortness of breath or wheezing) Qty: 30 0RF pantoprazole 40 mg tablet,delayed release (DR/EC) 40 mg PO DAILY Qty: 90 2RF Referrals / Follow Up: Ashley Gomez NP, PHOTO PRINTER-C [Primary Care Provider] - Disposition Disposition (needs filled in before D/C Order can be placed): Home, Self Care 06/10/23 4131<Electronically signed by Ashley Fair MD>Ashley Fair MD CC: PHOTO PRINTER-C Ashley Gomez; Dr. Santana Crespo MD ~ Signed [facility] Work Phone: Discharge summary Author Ashley Fair [facility] July 05, 2023 1:12pm Note Date/Time July 05, 2023 1:08 pm [facility] Medical Records Department [address] [place] [id number] Instructions for Home/Discharge Instructions 07/05/23 1308 MR#: [id number] Acct: [id number] Name: MARCELINO ARAIZA Rep #:[id number] : 1975 47 From: Ashley Sanchez PCP: TEJINDER Le Status:ADM RICKY Discharge Instructions Diet Discharge Diet: No restrictions Activity Discharge Activity: Return to Normal Activity Dressing / Incision Call your doctor if you observe: Fever of 101 or Higher, Inability to urinate and Inability to have a bowel movement Follow Up Care Please Follow Up With: Ashley Fair MD When: The office will call her to set up the next procedure Test Results: Test results from this visit will be discussed in further detail at your follow- up appointment, if applicable. Discharge Plan Admission Admit Date/Time: 07/04/23 10:46 Attending Provider: Ashley Fair Primary Care Provider: Ashley Gomez PHOTO PRINTER Discharge Orders/Prescriptions Prescriptions: New oxycodone-acetaminophen [Percocet] 5-325 mg tablet 1 tab PO Q8H PRN (Reason: pain) 3 Days Qty: 10 0RF cephalexin [cephalexin] 500 mg capsule 500 mg PO Q12 3 Days Qty: 6 0RF phenazopyridine [Pyridium] 200 mg tablet 200 mg PO TID PRN PRN (Reason: Bladder Spasms) 7 Days Qty: 30 0RF Continued albuterol sulfate 90 mcg/actuation HFA aerosol inhaler 2 puff inhalation Q6H PRN (Reason: shortness of breath or wheezing) Qty: 8.5 1RF dicyclomine 10 mg capsule 10 mg PO TID PRN (Reason: abdominal pain) bupropion HCl [Wellbutrin XL] 300 mg tablet extended release 24 hr 300 mg PO QAM Qty: 90 1RF triamcinolone acetonide 0.1 % cream 1 applic topical PRN clindamycin phosphate 1 % gel 1 applic topical BID Versatile Rich Cream 1 applic topical .BIW Centrum Complete 18-400 mg-mcg tablet 1 tab PO DAILY cephalexin 250 mg capsule 250 mg PO PRN PRN (Reason: AFTER INTERCOURSE) Patient Comments: TAKE 1 CAPSULE BY MOUTH ONCE DAILY AFTER INTERCOURSE meloxicam 15 mg tablet 15 mg PO DAILY Rx Instructions: Do not take in conjunction with other NSAIDs. Tylenol is okay. fluticasone propionate [Flonase Allergy Relief] 50 mcg/actuation spray,suspension 1 spray intranasal DAILY PRN (Reason: allergy symptoms) Rx Instructions: administer into each nostril lisinopril 5 mg tablet 5 mg PO DAILY Qty: 30 2RF ondansetron 4 mg tablet,disintegrating 4 mg PO Q8H PRN (Reason: nausea and vomiting) Qty: 30 5RF fluoxetine 40 mg capsule 40 mg PO DAILY Qty: 90 1RF albuterol sulfate 2.5 mg/0.5 mL solution for nebulization 5 mg inhalation Q6H PRN (Reason: shortness of breath or wheezing) Qty: 30 0RF pantoprazole 40 mg tablet,delayed release (DR/EC) 40 mg PO DAILY Qty: 90 2RF Referrals / Follow Up: Ashley Gomez PHOTO PRINTER, PHOTO PRINTER-C [Primary Care Provider] - Disposition Disposition (needs filled in before D/C Order can be placed): Home, Self Care 07/05/23 1312<Electronically signed by Ashley Fair MD>Ashley Fair MD CC: PHOTO PRINTER-C Ashley Gomez ~ Signed [facility] Work Phone: Evaluation noteNo assessment information available [facility] Work Phone: Evaluation note* Diagnosis Left upper quadrant abdominal pain [facility]* Diagnosis Onset Date Resolution Status Cough acute Bronchitis resolved Moderate anxiety acute Severe depression acute Vitamin D deficiency acute Establishing care with new doctor, encounter for noneactive [facility] Work Phone: evaluation note* Diagnosis Burning with urination- Primary Dysuria [facility] Diagnosis Onset Date Resolution Status Moderate anxiety acute Severe depression acute Vitamin D deficiency acute Establishing care with new doctor, encounter for noneactive Greater trochanteric bursitis of both hips noneactive Iliotibial band syndrome of both sides noneactive Osteoarthritis of knees, bilateral noneactive Pes anserinus bursitis of both knees noneactive BMI 35.0-35.9,adult noneacti ve Moderate anxiety acute Severe depression acute Vitamin D deficiency acute Elevated blood pressure reading noneactive Urinary incontinence noneact aurelia Bilateral knee pain noneacti ve New onset headache noneactiv e Moderate anxiety acute Severe depression acute Immunization due noneactive Elevated blood pressure reading noneactive Urinary incontinence noneact aurelia Bilateral knee pain noneacti ve New onset headache noneactiv e Pain of maxillary sinus none active Greater trochanteric bursitis of both hips noneactive Iliotibial band syndrome of both sides noneactive Osteoarthritis of knees, bilateral noneactive Pes anserinus bursitis of both knees noneactive BMI 35.0-35.9,adult noneacti ve [facility] Work Phone: Evaluation note* Diagnosis Left upper quadrant abdominal pain [facility]* Diagnosis Bloating Flatulence, eructation, and gas pain documented in this encounter [facility] note* Diagnosis Bloating- Primary Flatulence, eructation, and gas pain documented [facility]* Diagnosis Bloating Flatulence, eructation, and gas pain documented [facility]* Diagnosis Abdominal pain, unspecified abdominal location documented in this encounter [facility] note* Diagnosis Abdominal pain, unspecified abdominal location- Primary [facility]* Diagnosis Onset Date Resolution Status Moderate anxiety acute Severe depression acute Immunization due noneactive Elevated blood pressure reading noneactive Urinary incontinence noneact aurelia Bilateral knee pain noneacti ve New onset headache noneactiv e Pain of maxillary sinus none active Greater trochanteric bursitis of both hips noneactive Iliotibial band syndrome of both sides noneactive Osteoarthritis of knees, bilateral noneactive Pes anserinus bursitis of both knees noneactive BMI 35.0-35.9,adult noneacti ve Moderate anxiety acute Severe depression acute Urinary incontinence noneact aurelia Right calf pain noneactive Suspected sleep apnea noneac tive Essential hypertension nonea ctive Bilateral knee pain noneacti ve New onset headache noneactiv e Screening for breast cancer noneactive [facility] Work Phone: Evaluation note* Diagnosis Onset Date Resolution Status Moderate anxiety acute Severe depression acute Urinary incontinence noneact aurelia Right calf pain noneactive Suspected sleep apnea noneac tive Essential hypertension nonea ctive Bilateral knee pain noneacti ve New onset headache noneactiv e Screening for breast cancer noneactive Moderate anxiety acute Severe depression acute Sleep concern noneactive [facility] Work Phone: Evaluation note* Diagnosis Onset Date Resolution Status Moderate anxiety acute Severe depression acute Urinary incontinence noneact aurelia Right calf pain noneactive Suspected sleep apnea noneac tive Essential hypertension nonea ctive Bilateral knee pain noneacti ve New onset headache noneactiv e Screening for breast cancer noneactive Moderate anxiety acute Severe depression acute Sleep concern noneactive Moderate anxiety acute Severe depression acute Sleep concern noneactive Elevated glucose noneactive Urinary incontinence noneact aurelia Recurrent UTI noneactive Skin lesion noneactive Essential hypertension nonea ctive Bilateral knee pain noneacti ve [facility] Work Phone: Evaluation note* Diagnosis Left sided abdominal pain Abdominal pain, unspecified site [facility]* Diagnosis Onset Date Resolution Status Moderate anxiety acute Severe depression acute Urinary incontinence noneact aurelia Right calf pain noneactive Suspected sleep apnea noneac tive Essential hypertension nonea ctive Bilateral knee pain noneacti ve New onset headache noneactiv e Screening for breast cancer noneactive Moderate anxiety acute Severe depression acute Sleep concern noneactive Moderate anxiety acute Severe depression acute Sleep concern noneactive Elevated glucose noneactive Urinary incontinence noneact aurelia Recurrent UTI noneactive Skin lesion noneactive Essential hypertension nonea ctive Bilateral knee pain noneacti ve Frequent urinary tract infections acute Vaginal burning noneactive Acute upper respiratory infection acute [facility] Work Phone: Evaluation note* Diagnosis Acute cough- Primary SOB (shortness of breath) Shortness of breath Right leg pain Pain in limb [facility] Diagnosis Onset Date Resolution Status Moderate anxiety acute Severe depression acute Urinary incontinence noneact aurelia Right calf pain noneactive Suspected sleep apnea noneac tive Essential hypertension nonea ctive Bilateral knee pain noneacti ve New onset headache noneactiv e Screening for breast cancer noneactive Moderate anxiety acute Severe depression acute Sleep concern noneactive Moderate anxiety acute Severe depression acute Sleep concern noneactive Elevated glucose noneactive Urinary incontinence noneact aurelia Recurrent UTI noneactive Skin lesion noneactive Essential hypertension nonea ctive Bilateral knee pain noneacti ve Frequent urinary tract infections acute Vaginal burning noneactive Encounter for routine gynecological examination noneactive Cough acute [facility] Work Phone: Evaluation note* Diagnosis Onset Date Resolution Status Moderate anxiety acute Severe depression acute Urinary incontinence noneact aurelia Right calf pain noneactive Suspected sleep apnea noneac tive Essential hypertension nonea ctive Bilateral knee pain noneacti ve New onset headache noneactiv e Screening for breast cancer noneactive Moderate anxiety acute Severe depression acute Sleep concern noneactive Moderate anxiety acute Severe depression acute Sleep concern noneactive Elevated glucose noneactive Urinary incontinence noneact aurelia Recurrent UTI noneactive Skin lesion noneactive Essential hypertension nonea ctive Bilateral knee pain noneacti ve Frequent urinary tract infections acute Vaginal burning noneactive Encounter for routine gynecological examination noneactive Cough acute Bloating chronic Chronic diarrhea chronic IBS (irritable bowel syndrome) chronic Nausea and vomiting chronic [facility] Work Phone: Evaluation note* Diagnosis Onset Date Resolution Status Frequent urinary tract infections acute Vaginal burning noneactive Encounter for routine gynecological examination noneactive Cough acute Bloating chronic Chronic diarrhea chronic IBS (irritable bowel syndrome) chronic Nausea and vomiting chronic Frequent urinary tract infections acute LGSIL on Pap smear of cervix acute Postmenopausal state acute [facility] Work Phone: Evaluation note* Diagnosis Onset Date Resolution Status Encounter for routine gynecological examination noneactive Cough acute Bloating chronic Chronic diarrhea chronic IBS (irritable bowel syndrome) chronic Nausea and vomiting chronic Frequent urinary tract infections acute LGSIL on Pap smear of cervix acute Postmenopausal state acute [facility] Work Phone: Evaluation note* Diagnosis Well adult exam- Primary Routine [...] vaccination Need for prophylactic vaccination with combined muvkifsxti-zwpuohh-fvqvupocs (DTP) vaccine Screening for lipoid disorders [facility]ening for diabetes [facility]ritable [facility] syndrome without diarrhea [facility] Primary hypertension Unspecified essential hypertension [facility] Injury due to fall, initial encounter- Primary Left knee injury, initial encounter Flu vaccine need [facility] Diagnosis Injury due to fall, initial encounter Left knee injury, initial encounter [facility]* Diagnosis Depressive disorder Depressive disorder, not elsewhere classified Anxiety Anxiety state, unspecified [facility] Right leg pain Pain in limb [facility] Diagnosis Irritable bowel syndrome without diarrhea- Primary Irritable bowel syndrome without diarrhea [facility] Diagnosis Right lower quadrant abdominal pain- [...] specified viral diseases documented in this encounter [facility] note* Diagnosis Irritable bowel syndrome with diarrhea Irritable bowel syndrome documented in this encounter [facility] note* Diagnosis Class 2 obesity due to excess calories without serious comorbidity with body mass index (BMI) of 36.0 to 36.9 in adult- Primary documented in this encounter [facility] note* Diagnosis Onset Date Resolution Status IBS (irritable bowel syndrome) chronic [facility] Work Phone: evaluation note* Diagnosis Class 2 obesity due to excess calories without serious comorbidity with body mass index (BMI) of 37.0 to 37.9 in adult- Primary COVID-19 virus infection Herpes zoster without complication documented in this encounter [facility] note* Diagnosis Onset Date Resolution Status IBS (irritable bowel syndrome) chronic Gross hematuria acute Lesion of bladder acute [facility] Work Phone: evaluation note* Diagnosis Gross hematuria- Primary Left flank pain Abdominal pain, unspecified site documented in this encounter [facility] note* Diagnosis Gross hematuria documented in this encounter [facility] note* Diagnosis Screening for genitourinary condition Screening for other and unspecified genitourinary condition documented in this encounter [facility] note* Diagnosis Left lower quadrant abdominal pain- Primary Hematuria, unspecified type documented in this encounter [facility] note* Diagnosis Left lower quadrant abdominal pain- Primary Gross hematuria documented in this encounter [facility] note* Diagnosis Onset Date Resolution Status IBS (irritable bowel syndrome) chronic Gross hematuria resolved Lesion of bladder resolved LGSIL on Pap smear of cervix acute Encounter for routine gynecological examination noneactive Hematuria noneactive [facility] Work Phone: evaluation note* Diagnosis Depressive disorder- Primary Depressive disorder, not elsewhere classified Anxiety Anxiety state, unspecified Gross hematuria Left lower quadrant abdominal pain Osteoarthritis of both knees, unspecified osteoarthritis type documented in this encounter [facility] note* Diagnosis Depressive disorder Depressive disorder, not elsewhere classified Anxiety Anxiety state, unspecified documented in this encounter [facility] note* Diagnosis Left flank pain- Primary Abdominal pain, unspecified site Hematuria, unspecified type documented in this encounter [facility] note* Diagnosis Other hydronephrosis- Primary Gross hematuria Left lower quadrant abdominal pain documented in this encounter [facility] note* Diagnosis Left flank pain Abdominal pain, unspecified site Hematuria, unspecified type documented in this encounter [facility] note* Diagnosis Well adult exam- Primary Routine general medical examination at a health care facility Vitamin D deficiency Primary hypertension Unspecified essential hypertension Osteoarthritis of both knees, unspecified osteoarthritis type Class 2 obesity due to excess calories without serious comorbidity with body mass index (BMI) of 36.0 to 36.9 in adult Irritable bowel syndrome, unspecified type Gastroesophageal reflux disease, unspecified whether esophagitis present Mild intermittent asthma without complication Depressive disorder Depressive disorder, not elsewhere classified Anxiety Anxiety state, unspecified Left flank pain Abdominal pain, unspecified site Left lower quadrant abdominal pain Screening for diabetes mellitus Screening for lipoid disorders Need for vaccination with 20-polyvalent pneumococcal conjugate vaccine documented in this encounter [facility] note* Diagnosis Gross hematuria Left lower quadrant abdominal pain Other hydronephrosis documented in this encounter [facility] note* Diagnosis Acute cough SOB (shortness of breath) Shortness of breath documented in this encounter [facility] note* Diagnosis Cough Suspected COVID-19 virus infection documented in this encounter [facility] note* Diagnosis Inflammatory polyarthropathy (HCC)- Primary Unspecified inflammatory polyarthropathy documented in this encounter [facility] note* Diagnosis Other fatigue- Primary Depressive disorder Depressive disorder, not elsewhere classified Anxiety Anxiety state, unspecified documented in this encounter [facility] note* Diagnosis Other fatigue- Primary Depressive disorder Depressive disorder, not elsewhere classified Anxiety Anxiety state, unspecified documented in this encounter [facility] note* Diagnosis Osteoarthritis of both knees, unspecified osteoarthritis type documented in this encounter [facility] note* Diagnosis Mild intermittent asthma without complication documented in this encounter [facility] note* Diagnosis Vitamin D deficiency- Primary Primary hypertension Unspecified essential hypertension Osteoarthritis of both knees, unspecified osteoarthritis type Inflammatory polyarthropathy (HCC) Unspecified inflammatory polyarthropathy Class 2 obesity due to excess calories without serious comorbidity with body mass index (BMI) of 37.0 to 37.9 in adult Irritable bowel syndrome with both constipation and diarrhea Gastroesophageal reflux disease, unspecified whether esophagitis present Mild intermittent asthma without complication Depressive disorder Depressive disorder, not elsewhere classified Anxiety Anxiety state, unspecified Elevated LDL cholesterol level documented in this encounter [facility] note* Diagnosis Irritable bowel syndrome with diarrhea Irritable bowel syndrome [facility] Neuropathy of right foot- Primary Depressive disorder Depressive disorder, not elsewhere classified Anxiety Anxiety state, unspecified Rash and nonspecific skin eruption Rash and other nonspecific skin eruption [facility] Additional Instructions Your labs, CAT scan and urine were all normal. Tylenol Motrin for pain. Follow- up if not improving.[facility] Work Phone: Hospital Discharge instructions Additional Instructions Implant Used?: [facility] Work Phone: Hospital Discharge instructions Additional Instructions [facility]* Attachments The following attachments cannot be sent through Care Everywhere. * Nocturnal (Nighttime) Leg Cramps ([place]ongan) * Tdap Vaccine ([place]) [facility] Attachments The following attachments cannot be sent through Care Everywhere. * Phentermine, ADULT ([place]) documented in this [facility]* Attachments The following attachments cannot be sent through Care Everywhere. * Semaglutide, ADULT ([place]) [facility] Attachments The following attachments cannot be sent through Care Everywhere. * Pneumococcal Conjugate Vaccine (20-Valent), ADULT ([place]ongan) documented in this [facility] for referral (narrative)* Diagnostic Procedure Only (Urgent) - Closed Specialty Diagnoses / Procedures Referred By Contac t Referred To Contact US IMAGING Diagnoses Right leg pain Procedures US DVT LOWER RT DUP-SCAN XTR VEINS UNILATERAL/LIMITED STUDY Nadia Bolanos PA-C [address] [place] [address] Us Imaging Referral ID Status Reason Start Date Expiration Date V isits Requested Visits Authorized [id number] Closed Auto-Generate d Referral 06/15/2022 07/15/2023 [address] [facility] for referral (narrative)* Diagnostic Procedure Only (Urgent) - Closed Specialty Diagnoses / Procedures Referred By Contac t Referred To Contact US IMAGING Diagnoses Right leg pain Procedures US DVT LOWER RT DUP-SCAN XTR VEINS UNILATERAL/LIMITED STUDY Nadia Bolanos PA-C [address] [place] [address] [place] [address] Referral ID Status Reason Start Date Expiration Date V isits Requested Visits Authorized [id number] Closed Auto-Generate d Referral 06/15/2022 07/15/2023 [address] [facility] for referral (narrative)* Consultation (Routine) - Pending Review Specialty Diagnoses / Procedures Referred By Contac t Referred To Contact Urology Diagnoses Gross hematuria Left lower quadrant abdominal pain Procedures FL OFFICE/OUTPATIENT NEW HIGH MDM 60 MINUTES Ashley Gomez APRN - CHIEF CATALYST OPERATOR [address] [facility] [place] [address] [place] [address] Cornell Holden MD [facility] [address] [place] [address] Referral ID Status Reason Start Date Expiration Date Visits Requested Visits Authorized [id number] Pending Review Specialty Services Required 08/13/2023 08/12/2024 1 1 Electronically signed by Ashley Gomez APPLICATION SUPPORT INTERN - CHIEF CATALYST OPERATOR at 08/13/2023 1:30 PM EDT [facility] for referral (narrative)* Consultation (Routine) - Pending Review Specialty Diagnoses / Procedures Referred By Contac t Referred To Contact Urology Diagnoses Left flank pain Hematuria, unspecified type Procedures FL OFFICE/OUTPATIENT NEW HIGH MDM 60 MINUTES Cachorro Vides DO [address] [place] [address] [facility] [address] [place] [address] [place] [address] Referral ID Status Reason Start Date Expiration Date Visits Requested Visits Authorized [id number] Pending Review Specialty Services Required 10/18/2023 10/17/2024 1 1 Yasmin Ferreira for visit Narrative* Diagnostic Procedure Only (Routine) - Closed Specialty Diagnoses / Procedures Referred By Raul beltran Referred To Contact Radiology / [facility] Diagnoses room 1 Procedures RADIOLOGIC EXAM CHEST 2 VIEWS XR CHEST Self [facility] [address] [place] [address] Referral ID Status Reason Start Date Expiration Date Visits Re quested Visits Authorized [id number] Closed 06/15/2022 03/28/2023 1 1 [facility] Chief Complaint and Reason for Visit Chief Complaint SCREENING RLE POSSIBLE DVT Chief Complaint SCREENING RLE POSSIBLE DVT DYSPHAGIA Chief Complaint DYSPHAGIA 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 NPP E ORDER BL KNEES 6 wk FU HEADACHES WAKES UP FROM SLEEP FU FOR MRI, WANTS FLU SHOT PELVIC FLOOR/KAMRYN/UI, RX HERE BL KNEES FLANK PAIN Reason for Visit Moderate anxiety Severe depression Vitamin D deficiency Establishing care with new doctor, encounter for Greater trochanteric bursitis of both hips Iliotibial band syndrome of both sides Osteoarthritis of knees, bilateral Pes anserinus bursitis of both knees BMI 35.0-35.9,adult Moderate anxiety Severe depression Vitamin D deficiency Elevated blood pressure reading Urinary incontinence Bilateral knee pain New onset headache Moderate anxiety Severe depression Immunization due Elevated blood pressure reading Urinary incontinence Bilateral knee pain New onset headache Pain of maxillary sinus Greater trochanteric bursitis of both hips Iliotibial band syndrome of both sides Osteoarthritis of knees, bilateral Pes anserinus bursitis of both knees BMI 35.0-35.9,adult 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 NPP E ORDER BL KNEES 6 wk FU HEADACHES WAKES UP FROM SLEEP FU FOR MRI, WANTS FLU SHOT BL KNEES FLANK PAIN PELVIC FLOOR/KAMRYN/UI, RX HERE Reason for Visit Moderate anxiety Severe depression Vitamin D deficiency Establishing care with new doctor, encounter for Greater trochanteric bursitis of both hips Iliotibial band syndrome of both sides Osteoarthritis of knees, bilateral Pes anserinus bursitis of both knees BMI 35.0-35.9,adult Moderate anxiety Severe depression Vitamin D deficiency Elevated blood pressure reading Urinary incontinence Bilateral knee pain New onset headache Moderate anxiety Severe depression Immunization due Elevated blood pressure reading Urinary incontinence Bilateral knee pain New onset headache Pain of maxillary sinus Greater trochanteric bursitis of both hips Iliotibial band syndrome of both sides Osteoarthritis of knees, bilateral Pes anserinus bursitis of both knees BMI 35.0-35.9,adult 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 NPP E ORDER BL KNEES 6 wk FU HEADACHES WAKES UP FROM SLEEP FU FOR MRI, WANTS FLU SHOT BL KNEES FLANK PAIN PELVIC FLOOR/KAMRYN/UI, RX HERE lac Reason for Visit Moderate anxiety Severe depression Vitamin D deficiency Establishing care with new doctor, encounter for Greater trochanteric bursitis of both hips Iliotibial band syndrome of both sides Osteoarthritis of knees, bilateral Pes anserinus bursitis of both knees BMI 35.0-35.9,adult Moderate anxiety Severe depression Vitamin D deficiency Elevated blood pressure reading Urinary incontinence Bilateral knee pain New onset headache Moderate anxiety Severe depression Immunization due Elevated blood pressure reading Urinary incontinence Bilateral knee pain New onset headache Pain of maxillary sinus Greater trochanteric bursitis of both hips Iliotibial band syndrome of both sides Osteoarthritis of knees, bilateral Pes anserinus bursitis of both knees BMI 35.0-35.9,adult Chief Complaint FU FOR MRI, WANTS FL U SHOT BL KNEES FLANK PAIN PELVIC FLOOR/KAMRYN/UI, RX HERE lac BP FOLLOW UP PAIN IN RIGHT LOWER LEG HYPERSOMNIA Reason for Visit Moderate anxiety Severe depression Immunization due Elevated blood pressure reading Urinary incontinence Bilateral knee pain New onset headache Pain of maxillary sinus Greater trochanteric bursitis of both hips Iliotibial band syndrome of both sides Osteoarthritis of knees, bilateral Pes anserinus bursitis of both knees BMI 35.0-35.9,adult Moderate anxiety Severe depression Urinary incontinence Right calf pain Suspected sleep apnea Essential hypertension Bilateral knee pain New onset headache Screening for breast cancer Chief Complaint PELVIC FLOOR/KAMRYN/UI, RX HERE lac BP FOLLOW UP PAIN IN RIGHT LOWER LEG HYPERSOMNIA SCREENING Sleep problems Reason for Visit Moderate anxiety Severe depression Urinary incontinence Right calf pain Suspected sleep apnea Essential hypertension Bilateral knee pain New onset headache Screening for breast cancer Moderate anxiety Severe depression Sleep concern Chief Complaint lac BP FOLLOW UP PAIN IN RIGHT LOWER LEG HYPERSOMNIA SCREENING Sleep problems follow up Reason for Visit Moderate anxiety Severe depression Urinary incontinence Right calf pain Suspected sleep apnea Essential hypertension Bilateral knee pain New onset headache Screening for breast cancer Moderate anxiety Severe depression Sleep concern Moderate anxiety Severe depression Sleep concern Elevated glucose Urinary incontinence Recurrent UTI Skin lesion Essential hypertension Bilateral knee pain Chief Complaint lac BP FOLLOW UP PAIN IN RIGHT LOWER LEG HYPERSOMNIA SCREENING Sleep problems follow up UTI/BV symptoms, discomfort but no burning CONCERN FOR STREP THROAT PELVIC PAIN Reason for Visit Moderate anxiety Severe depression Urinary incontinence Right calf pain Suspected sleep apnea Essential hypertension Bilateral knee pain New onset headache Screening for breast cancer Moderate anxiety Severe depression Sleep concern Moderate anxiety Severe depression Sleep concern Elevated glucose Urinary incontinence Recurrent UTI Skin lesion Essential hypertension Bilateral knee pain Frequent urinary tract infections Vaginal burning Acute upper respiratory infection Chief Complaint BP FOLLOW UP PAIN IN RIGHT LOWER LEG HYPERSOMNIA SCREENING Sleep problems follow up UTI/BV symptoms, discomfort but no burning CONCERN FOR STREP THROAT PELVIC PAIN SHORTNESS OF BREATH SOB, COugh Reason for Visit Moderate anxiety Severe depression Urinary incontinence Right calf pain Suspected sleep apnea Essential hypertension Bilateral knee pain New onset headache Screening for breast cancer Moderate anxiety Severe depression Sleep concern Moderate anxiety Severe depression Sleep concern Elevated glucose Urinary incontinence Recurrent UTI Skin lesion Essential hypertension Bilateral knee pain Frequent urinary tract infections Vaginal burning Acute upper respiratory infection Chief Complaint BP FOLLOW UP PAIN IN RIGHT LOWER LEG HYPERSOMNIA SCREENING Sleep problems follow up UTI/BV symptoms, discomfort but no burning CONCERN FOR STREP THROAT PELVIC PAIN SHORTNESS OF BREATH SOB, COugh 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) Shortness of breath INT LABS Cough Reason for Visit Moderate anxiety Severe depression Urinary incontinence Right calf pain Suspected sleep apnea Essential hypertension Bilateral knee pain New onset headache Screening for breast cancer Moderate anxiety Severe depression Sleep concern Moderate anxiety Severe depression Sleep concern Elevated glucose Urinary incontinence Recurrent UTI Skin lesion Essential hypertension Bilateral knee pain Frequent urinary tract infections Vaginal burning Encounter for routine gynecological examination Cough Chief Complaint BP FOLLOW UP PAIN IN RIGHT LOWER LEG HYPERSOMNIA SCREENING Sleep problems follow up UTI/BV symptoms, discomfort but no burning CONCERN FOR STREP THROAT PELVIC PAIN SHORTNESS OF BREATH SOB, COugh 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) Shortness of breath INT LABS Cough Consult Reason for Visit Moderate anxiety Severe depression Urinary incontinence Right calf pain Suspected sleep apnea Essential hypertension Bilateral knee pain New onset headache Screening for breast cancer Moderate anxiety Severe depression Sleep concern Moderate anxiety Severe depression Sleep concern Elevated glucose Urinary incontinence Recurrent UTI Skin lesion Essential hypertension Bilateral knee pain Frequent urinary tract infections Vaginal burning Encounter for routine gynecological examination Cough Bloating Chronic diarrhea IBS (irritable bowel syndrome) Nausea and vomiting Chief Complaint UTI/BV symptoms, dis comfort but no burning CONCERN FOR STREP THROAT PELVIC PAIN SHORTNESS OF BREATH SOB, COugh 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) Shortness of breath INT LABS Cough Consult Colposcopy PELVIC PAIN PELVIC PAIN Reason for Visit Frequent urinary tra ct infections Vaginal burning Encounter for routine gynecological examination Cough Bloating Chronic diarrhea IBS (irritable bowel syndrome) Nausea and vomiting Frequent urinary tract infections LGSIL on Pap smear of cervix Postmenopausal state Chief Complaint CONCERN FOR STREP TH ROAT PELVIC PAIN SHORTNESS OF BREATH SOB, COugh 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) Shortness of breath INT LABS Cough Consult Colposcopy PELVIC PAIN PELVIC PAIN Reason for Visit Encounter for routin e gynecological examination Cough Bloating Chronic diarrhea IBS (irritable bowel syndrome) Nausea and vomiting Frequent urinary tract infections LGSIL on Pap smear of cervix Postmenopausal state Chief Complaint abd pain Chief Complaint abd pain SCREENING 6 MO FU E-ORDER Reason for Visit IBS (irritable bowel syndrome) Chief Complaint abd pain SCREENING 6 MO FU E-ORDER Cysto,Biopsy,Fulguration,Bladder Tu Reason for Visit IBS (irritable bowel syndrome) Chief Complaint abd pain SCREENING 6 MO FU E-ORDER Cysto,Biopsy,Fulguration,Bladder Tu HEMATURIA Reason for Visit IBS (irritable bowel syndrome) Chief Complaint abd pain SCREENING 6 MO FU E-ORDER Cysto,Biopsy,Fulguration,Bladder Tu HEMATURIA Reason for Visit IBS (irritable bowel syndrome) Gross hematuria Lesion of bladder Chief Complaint abd pain SCREENING 6 MO FU E-ORDER Cysto,Biopsy,Fulguration,Bladder Tu PREOP HEMATURIA 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) Reason for Visit IBS (irritable bowel syndrome) Gross hematuria Lesion of bladder LGSIL on Pap smear of cervix Encounter for routine gynecological examination Hematuria Family History No Family History Records Found Relationship Condition Age at Onset Recorded Date/T nick Not Specified Diabetes mellitus Unknown grandmother Cardiac disease Unknown Malignant neoplasm of colon Unknown Relationship Condition Age at Onset Recorded Date/T nick grandmother Cardiac disease Unknown Malignant neoplasm of colon Unknown Diabetes mellitus Unknown grandmother Diabetes mellitus Unknown father Rheumatoid arthritis Unknown mother Anxiety Unknown Arthritis Unknown Depression Unknown brother Asthma Unknown Allergy Unknown grandfather Malignant neoplasm Unknown Advance Directives No Advanced Directives Records Found Advance Directive Response Recorded Date/ Time Living Will No July 28, 2020 8: 39am Power of Sock Boarder No July 28, 2020 8:39am Documents on File Type Date Recorded 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 Advance Directive(s) 11/07/2020 6:26 AM Advance Directive Response Recorded Date/ Time Living Will No October 31, 2021 1:50pm Power of Sock Boarder No October 31 1:50pm Advance Directive Response Recorded Date/ Time Living Will No October 31, 2021 12:50pm Power of Sock Boarder No October 31 12:50pm Advance Directive Response Recorded Date/ Time Living Will No February 19, 6:37pm Power of Sock Boarder No February 19, 2022 6:37pm Advance Directive Response Recorded Date/ Time Living Will No February 19, 022 7:37pm Power of Sock Boarder No February 19, 2022 7:37pm Advance Directive Response Recorded Date/ Time Living Will No June 15, 2022 11:52pm Power of Sock Boarder No June 15 11:52pm Advance Directive Response Recorded Date/ Time Living Will No April 21 4:17pm Power of Sock Boarder No April 21, 2023 4:17pm Advance Directive Response Recorded Date/ Time Living Will No June 03, 2023 9:30am Power of Sock Boarder No June 02 9:30am Advance Directive Response Recorded Date/ Time Living Will No July 04, 2023 7:36am Power of Sock Boarder No July 03 7:36am Advance Directive Response Recorded Date/ Time Living Will No July 04, 2023 11:39am Power of Sock Boarder No July 03 11:39am Documents on File Type Date Recorded 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 Advance Directives and Livin g Will 11/10/2023 9:51 AM Documents on File Type Date Recorded 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 Advance Directives and Livin g Will 11/10/2023 9:51 AM Reason for Referral Specialty Diagnoses / Procedures Referred By Raul beltran Referred To Contact Radiology Diagnoses Irritable bowel syndrome without diarrhea Procedures NM gastric emptying solid Friend, Tanna [address], [address] [place] [address] Referral ID Status Reason Start Date Expiration Date Visits Re quested Visits Authorized [id number] Closed 11/11/2022 05/10/2023 1 1 Specialty Diagnoses / Procedures Referred By Raul beltran Referred To Contact CT IMAGING Diagnoses Gross hematuria Procedures CT UROGRAM WO/W IVCON CT ABD & PELVIS W/WO CONTRST 1+ BODY REGNS Maria Elena Carvajal, APPLICATION SUPPORT INTERN.CHIEF CATALYST OPERATOR [address] [place] [address] [place] [address] Referral ID Status Reason Start Date Expiration Date Visits Requested Visits Authorized [id number] Authorized Auto-Generat ed Referral 07/08/2023 08/06/2024 1 1 Specialty Diagnoses / Procedures Referred By Contac t Referred To Contact Radiology Diagnoses Gross hematuria Left lower quadrant abdominal pain Other hydronephrosis Procedures NM kidney flow/function w/wo Christa Cameron, APPLICATION SUPPORT INTERN - CHIEF CATALYST OPERATOR [address] [place] [address] Referral ID Status Reason Start Date Expiration Date V isits Requested Visits Authorized [id number] Pending Review 10/27/2023 10/26/2024 3 3 Referral ID Status Reason Start Date Expiration Date V isits Requested Visits Authorized [id number] Authorized 10/27/2023 10/26/2024 3 3 Summary Purpose Additional Source Comments Goals (unrecognized section and content) Goals may be documented in a n alternate sectionGoals may be documented in an alternate sectionGoals may be documented in an alternate sectionGoals may be documented in an alternate sectionGoals may be documented in an alternate sectionGoals may be documented in an alternate sectionGoals may be documented in an alternate sectionGoals may be documented in an alternate sectionGoals may be documented in an alternate sectionGoals may be documented in an alternate sectionGoals may be documented in an alternate sectionGoals may be documented in an alternate sectionGoals may be documented in an alternate sectionGoals may be documented in an alternate sectionGoals may be documented in an alternate sectionGoals may be documented in an alternate sectionGoals may be documented in an alternate sectionGoals may be documented in an alternate sectionGoals may be documented in an alternate sectionGoals may be documented in an alternate sectionGoals may be documented in an alternate section Source Comments (unrecognize d section and content) In the event this informatio n is protected by the Federal Confidentiality of Alcohol and Drug Abuse Patient Records regulations: The Federal rules restrict any use of the information to criminally investigate or prosecute any alcohol or drug abuse patient.[facility] the event this information is protected by the Federal Confidentiality of Alcohol and Drug Abuse Patient Records regulations: The Federal rules restrict any use of the information to criminally investigate or prosecute any alcohol or drug abuse patient.[facility] the event this information is protected by the Federal Confidentiality of Alcohol and Drug Abuse Patient Records regulations: The Federal rules restrict any use of the information to criminally investigate or prosecute any alcohol or drug abuse patient.[facility] the event this information is protected by the Federal Confidentiality of Alcohol and Drug Abuse Patient Records regulations: The Federal rules restrict any use of the information to criminally investigate or prosecute any alcohol or drug abuse patient.[facility] the event this information is protected by the Federal Confidentiality of Alcohol and Drug Abuse Patient Records regulations: The Federal rules restrict any use of the information to criminally investigate or prosecute any alcohol or drug abuse patient.[facility] the event this information is protected by the Federal Confidentiality of Alcohol and Drug Abuse Patient Records regulations: The Federal rules restrict any use of the information to criminally investigate or prosecute any alcohol or drug abuse patient.[facility] the event this information is protected by the Federal Confidentiality of Alcohol and Drug Abuse Patient Records regulations: The Federal rules restrict any use of the information to criminally investigate or prosecute any alcohol or drug abuse patient.[facility] the event this information is protected by the Federal Confidentiality of Alcohol and Drug Abuse Patient Records regulations: The Federal rules restrict any use of the information to criminally investigate or prosecute any alcohol or drug abuse patient.[facility] the event this information is protected by the Federal Confidentiality of Alcohol and Drug Abuse Patient Records regulations: The Federal rules restrict any use of the information to criminally investigate or prosecute any alcohol or drug abuse patient.[facility] the event this information is protected by the Federal Confidentiality of Alcohol and Drug Abuse Patient Records regulations: The Federal rules restrict any use of the information to criminally investigate or prosecute any alcohol or drug abuse patient.[facility] the event this information is protected by the Federal Confidentiality of Alcohol and Drug Abuse Patient Records regulations: The Federal rules restrict any use of the information to criminally investigate or prosecute any alcohol or drug abuse patient.[facility] the event this information is protected by the Federal Confidentiality of Alcohol and Drug Abuse Patient Records regulations: The Federal rules restrict any use of the information to criminally investigate or prosecute any alcohol or drug abuse patient.[facility] the event this information is protected by the Federal Confidentiality of Alcohol and Drug Abuse Patient Records regulations: The Federal rules restrict any use of the information to criminally investigate or prosecute any alcohol or drug abuse patient.[facility] the event this information is protected by the Federal Confidentiality of Alcohol and Drug Abuse Patient Records regulations: The Federal rules restrict any use of the information to criminally investigate or prosecute any alcohol or drug abuse patient.[facility] the event this information is protected by the Federal Confidentiality of Alcohol and Drug Abuse Patient Records regulations: The Federal rules restrict any use of the information to criminally investigate or prosecute any alcohol or drug abuse patient.[facility] the event this information is protected by the Federal Confidentiality of Alcohol and Drug Abuse Patient Records regulations: The Federal rules restrict any use of the information to criminally investigate or prosecute any alcohol or drug abuse patient.[facility] HospitalIn the event this information is protected by the Federal Confidentiality of Alcohol and Drug Abuse Patient Records regulations: The Federal rules restrict any use of the information to criminally investigate or prosecute any alcohol or drug abuse patient.[facility] Hospital[facility] the event this information is protected by the Federal Confidentiality of Alcohol and Drug Abuse Patient Records regulations: The Federal rules restrict any use of the information to criminally investigate or prosecute any alcohol or drug abuse patient.[facility] the event this information is protected by the Federal Confidentiality of Alcohol and Drug Abuse Patient Records regulations: The Federal rules restrict any use of the information to criminally investigate or prosecute any alcohol or drug abuse patient.[facility] Hospital[facility] the event this information is protected by the Federal Confidentiality of Alcohol and Drug Abuse Patient Records regulations: The Federal rules restrict any use of the information to criminally investigate or prosecute any alcohol or drug abuse patient.[facility] HospitalIn the event this information is protected by the Federal Confidentiality of Alcohol and Drug Abuse Patient Records regulations: The Federal rules restrict any use of the information to criminally investigate or prosecute any alcohol or drug abuse patient.[facility] HospitalIn the event this information is protected by the Federal Confidentiality of Alcohol and Drug Abuse Patient Records regulations: The Federal rules restrict any use of the information to criminally investigate or prosecute any alcohol or drug abuse patient.[facility]In the event this information is protected by the Federal Confidentiality of Alcohol and Drug Abuse Patient Records regulations: The Federal rules restrict any use of the information to criminally investigate or prosecute any alcohol or drug abuse patient.[facility] Reason for Visit (unrecogniz ed section and content) Reason Comments Breath Hydrogen Test Specialty Diagnoses / Procedures Referred By Raul t Referred To Contact [facility] Diagnoses Bloating Procedures BREATH TEST GLUCOSE BREATH HYDROGEN/METHANE TEST Sada Snyder MD [address] [place] [address] [facility] [address] [place] [address] Referral ID Status Reason Start Date Expiration Date V isits Requested Visits Authorized [id number] Closed Auto-Generate d Referral 01/30/2022 01/29/2023 1 1 Reason Onset Date Comments Refill Request 10/01/2021 Reason Comments UTI Burning with urinati on, lower abd pain x2 days Reason Onset Date Comments Refill Request 02/11/2022 Specialty Diagnoses / Procedures Referred By Contac t Referred To Contact [facility] Diagnoses Bloating Procedures BREATH TEST LACTOSE BREATH HYDROGEN/METHANE TEST Sada Snyder MD [address] [place] [address] [facility] [address] [facility] [address] [address] Referral ID Status Reason Start Date Expiration Date V isits Requested Visits Authorized [id number] Closed Auto-Generate d Referral 02/18/2022 03/28/2022 1 1 Reason Comments Gas Reason Comments Patient Question Patient Update Reason Onset Date Comments Procedure 03/19/2022 Specialty Diagnoses / Procedures Referred By Contac t Referred To Contact [facility] Diagnoses Abdominal pain, unspecified abdominal location Procedures PH IMPEDANCE INSERT OFF MEDS ESOPHGL FUNCJ G-ESOP RFLX IMPD ELTRD PROLNG Sada Snyder MD [address] [place] [address] [facility] [address] [place] [address] Referral ID Status Reason Start Date Expiration Date V isits Requested Visits Authorized [id number] Closed Auto-Generate d Referral 01/30/2022 01/29/2023 1 [...] gastric emptying solid Friend, Tanna [address], [address] [place] [address] Referral ID Status Reason Start Date Expiration Date Visits Re quested Visits Authorized [id number] Closed 11/11/2022 05/10/2023 1 1 Reason Onset Date Comments Med Refill 11/22/2022 Reason Comments Fall Knee Pain Left knee pain Reason Onset Date Comments Med Refill 12/30/2022 Reason Comments Radiology US Specialty Diagnoses / Procedures Referred By Contac t Referred To Contact [facility] Diagnoses Right leg pain Procedures US DVT LOWER RT DUP-SCAN XTR VEINS UNILATERAL/LIMITED STUDY Nadia Bolanos PA-C [address] [place] [address] [facility] [place] [address] Referral ID Status Reason Start Date Expiration Date V isits Requested Visits Authorized [id number] Closed Auto-Generate d Referral 06/15/2022 07/15/2023 1 1 Reason Comments ER Follow-up [facility] abd pain, possible UTI-urologist advised her to take the cephalexin TID Hyperglycemia Reason Onset Date Comments Med Refill 04/30/2023 Reason Comments Follow-up Medication follow up - adipex Health Maintenance PNA- declinesPP:4th Covid Reason Comments New Patient Hematuria Reason Comments Radiology CT Specialty Diagnoses / Procedures Referred By Contac t Referred To Contact CT IMAGING Diagnoses Gross hematuria Procedures CT UROGRAM WO/W IVCON CT ABD & PELVIS W/WO CONTRST 1+ BODY REGNS Maria Elena Carvajal, APPLICATION SUPPORT INTERN.CHIEF CATALYST OPERATOR [address] [place] [address] [facility] [place] [address] Referral ID Status Reason Start Date Expiration Date V isits Requested Visits Authorized [id number] Closed Auto-Generate d Referral 07/08/2023 08/06/2024 1 1 Reason Comments Blood In Urine Reason Comments ER Follow-up Went to [facility], was bleeding badly from her urethra, had really bad clots on Wednesday. When she gave a urine sample, it came out a pure blood. Had CT scan. Got admitted to the Hospital Wednesday morning, had bled all day. Had surgery Wednesday, to find where bleeding was coming from. Went through left ureter and was completely swollen and narrow, placed a stent. The stent was taken out on Wednesday. Went to [facility] to get a second opinion, had a CT scan done again, urologist could not find anything. Reason Onset Date Comments Test Scheduling 08/10/2023 Reason Comments Depression Anxiety Follow-up States she would lik e to discuss getting a referral to a different Urologist. Would like to see who would be best to go with through [facility]. Virtual Visit Reason Comments Follow-up Depression Anxiety Reason Onset Date Comments Appointment 08/27/2023 Reason Comments Flank Pain Reason Comments Blood in Urine Specialty Diagnoses / Procedures Referred By Contshilpi t Referred To Contact Urology Diagnoses Gross hematuria Left lower quadrant abdominal pain Procedures FL OFFICE/OUTPATIENT NEW HIGH MDM 60 MINUTES Ashley Gomez S, APPLICATION SUPPORT INTERN - CHIEF CATALYST OPERATOR [address] [place] [address] [place] [address] Cornell Holden MD [address] [place] [address] [address] [place] [address] Referral ID Status Reason Start Date Expiration Date V isits Requested Visits Authorized [id number] Closed Specialty Services Required 08/13/2023 08/12/2024 1 1 Reason Comments Nephrolithiasis Specialty Diagnoses / Procedures Referred By Raul t Referred To Contact Urology Diagnoses Left flank pain Hematuria, unspecified type Procedures FL OFFICE/OUTPATIENT NEW HIGH MDM 60 MINUTES Cachorro Vides DO [address] [place] [address] [facility] [address] [place] [address] [place] [address] Referral ID Status Reason Start Date Expiration Date V isits Requested Visits Authorized [id number] Closed Specialty Services Required 10/18/2023 10/17/2024 1 1 Reason Onset Date Comments Other 10/27/2023 Tu renal scan Reason Comments Annual Exam Blood Work Health Maintenance PNA vaccine-discuss with Cora AMINJANES vaccine-only had 3, doesn't want a 4th Specialty Diagnoses / Procedures Referred By Contac t Referred To Contact Radiology Diagnoses Gross hematuria Left lower quadrant abdominal pain Other hydronephrosis Procedures NM kidney flow/function w/wo Christa Cameron, APPLICATION SUPPORT INTERN - CHIEF CATALYST OPERATOR [address] [place] [address] Referral ID Status Reason Start Date Expiration Date V isits Requested Visits Authorized [id number] Authorized 10/27/2023 10/26/2024 3 3 Reason Comments Fatigue States that lately s he has felt extremely tired, states that she is getting a good nights sleep but waking up very tired, feels like she has to take a nap every day and take about a 2-3 hour nap each day. 60mg of fluoxetine Reason Comments Follow-up Fatigue Depression Anxiety Reason Comments Med Refill Reason Comments Blood Work Medication Check Anxiety Depression Hypertension GERD Obesity Vitamin D Deficiency Health Maintenance Mammo- had done at [facility] Reason Onset Date Comments Med Refill 05/26/2024 Reason Comments Peripheral Neuropathy Care Teams (unrecognized sec tion and content) 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 Date End Date Ashok Siu MD PCP - General Family Practice 03/21/17 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 Date End Date Ashok Siu MD PCP - General Family Medicine 03/21/17 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 Date End Date Ashok Siu MD PCP - General Family Medicine 03/21/17 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 Date End Date Ashok Siu MD PCP - General Family Medicine 03/21/17 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 Date End Date Ashok Siu MD PCP - General Family Medicine 03/21/17 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 Date End Date Ashok Siu MD PCP - General Family Medicine 03/21/17 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 Date End Date Ashok Siu MD PCP - General Family Medicine 03/21/17 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 Date End Date Ashok Siu MD PCP - General Family Medicine 03/21/17 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 Date End Date Ashok Siu MD PCP - General Family Medicine 03/21/17 Team Status: Active Member Role Status Dates Dr. Ashok Siu MD Family Provider Active Dr. Geeta Hickman MD Primary Care Provider Active Team Status: Inactive Member Role Status Dates Dr. Geeta Hickman MD Primary Care Provider, Referri ng Provider Active JEANETH Haney Attending Provider Active Team Status: Inactive Member Role Status Dates Dr. Geeta Hickman MD Primary Care Pro vider, Attending Provider, Referring Provider Active Team Status: Active Member Role Status Dates Dr. Geeta Hickman MD Primary Care Provider Active Dr. Santana Saha MD Attending Provider Active Team Status: Inactive Member Role Status Dates Dr. Geeta Hickman MD Primary Care Provider Active Dr. Ashley Fair MD Attending Provider, Referring P jose Active Team Status: Inactive Member Role Status Dates Dr. Geeta Hickman MD Primary Care Provider Active Dr. Landon Doe MD Attending Provider, Emergency Provider Active Team Status: Inactive Member Role Status Dates Dr. Geeta Hickman MD Primary Care Provider, Attendi ng Provider Active Team Status: Active Member Role Status Dates Dr. Geeta Hickman MD Primary Care Pro vider, Attending Provider, Referring Provider Active Team Status: Active Member Role Status Dates Dr. Geeta Hickman MD Primary Care Provider, Referri ng Provider Active Dr. Santana Saha MD Attending Provider Active Team Status: Inactive Member Role Status Dates Dr. Geeta Hickman MD Primary Care Provider, Referri ng Provider Active Dr. Danial Marshall MD Attending Provider Active 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 Date End Date Ashok Siu MD PCP - General Family Medicine 03/21/17 Team Status: Inactive Member Role Status Dates Dr. Geeta Hickman MD Primary Care Provider, Referri ng Provider Active Jacqueline Martinez PHOTO PRINTER, PHOTO PRINTER-C Attending Provider Active Team Status: Inactive Member Role Status Dates Dr. Geeta Hickman MD Primary Care Provider, Referri ng Provider Active Austin ERIC, PA Attending Provider Active Team Status: Inactive Member Role Status Dates Dr. Geeta Hickman MD Primary Care Provider Active Jacqueline Martinez PHOTO PRINTER, PHOTO PRINTER-C Attending Provider Active Team Status: Active Member Role Status Dates Dr. Geeta Hickman MD Primary Care Provider Active Dr. Ashley Fair MD Attending Provider Active Team Status: Inactive Member Role Status Dates Dr. Geeta Hickman MD Primary Care Provider Active Dr. Ashley Fair MD Attending Provider Active 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 Date End Date Geeta Hickman MD NO FORWARDING ADDRESS PCP - General Internal Medicine 06/15/22 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 Date End Date Geeta Hickman MD NO FORWARDING ADDRESS PCP - General Internal Medicine 06/15/22 Team Status: Inactive Member Role Status Dates Dr. Geeta Hickman MD Primary Care Provider Active Nadia Bolanos PHOTO PRINTER, WET INSPECTOR OPTICAL GLASS Attending Provider, Referri ng Provider Active Team Status: Inactive Member Role Status Dates Dr. Geeta Hickman MD Primary Care Provider Active Dr. Landon Doe MD Emergency Provider Active Team Status: Inactive Member Role Status Dates Dr. Geeta Hickman MD Primary Care Provider, Referri ng Provider Active Sveta Cline PHOTO PRINTER, PHOTO PRINTER-C Attending Provider Active Team Status: Inactive Member Role Status Dates Dr. Geeta Hickman MD Primary Care Provider Active Jacqueline Martinez PHOTO PRINTER, PHOTO PRINTER-C Attending Provider, Referring Provider Active Team Status: Active Member Role Status Dates Dr. Geeta Hickman MD Primary Care Provider Active Sveta Cline PHOTO PRINTER, PHOTO PRINTER-C Attending Provider, Referrin g Provider Active Team Status: Active Member Role Status Dates Dr. Geeta Hickman MD Primary Care Provider Active Sveta Cline PHOTO PRINTER, PHOTO PRINTER-C Attending Provider Active Team Status: Inactive Member Role Status Dates Dr. Geeta Hickman MD Primary Care Provider, Referri ng Provider Active Grisel Michel PHOTO PRINTER, PHOTO PRINTER-C Attending Provider Active Team Status: Inactive Member Role Status Dates Dr. Geeta Hickman MD Primary Care Provider Active Sveta Cline PHOTO PRINTER, PHOTO PRINTER-C Attending Provider, Referrin g Provider Active Team Status: Inactive Member Role Status Dates Dr. Geeta Hickman MD Primary Care Provider Active Sveta Cline PHOTO PRINTER, PHOTO PRINTER-C Attending Provider Active Team Status: Inactive Member Role Status Dates Dr. Geeta Hickman MD Primary Care Provider, Referri ng Provider Active Dr. Chrystal Conteh DO Attending Provider Activ e Team Status: Active Member Role Status Dates Dr. Geeta Hickman MD Primary Care Provider Active Dr. Chrystal Conteh DO Attending Provider, Refe rring Provider Active Team Status: Inactive Member Role Status Dates Dr. Geeta Hickman MD Primary Care Provider Active Dr. Chrystal Conteh DO Attending Provider, Refe rring Provider Active 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 Date End Date Ashok Siu MD PCP - General Family Medicine 03/21/17 06/14/22 Geeta Hickman MD NO FORWARDING ADDRESS PCP - General Internal Medicine 06/15/22 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 Date End Date Naga Jin MD [facility] [place] [address] PCP - General Family Medicine 10/29/22 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 Date End Date Naga Jin MD [facility] [place] [id number] PCP - General Family Medicine 10/29/22 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 Date End Date Ashley Gomez APRN - CHIEF CATALYST OPERATOR [address] [place] [address] PCP - General Nurse Practitioner [facility] 11/11/22 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 Date End Date Ashley Gomez APRN - CHIEF CATALYST OPERATOR [address] [place] [address] PCP - General Nurse Practitioner [facility] 11/11/22 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 Date End Date Ashley Gomez APRN - CHIEF CATALYST OPERATOR [address] [place] [address] PCP - General Nurse Practitioner [facility] 11/11/22 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 Date End Date Naga Jin MD [address] [place] [address] PCP - General Family Medicine 12/15/22 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 Date End Date Naga Jin MD [address] [place] [address] PCP - General Family Medicine 12/15/22 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 Date End Date Naga Jin MD [address] [place] [address] PCP - General Family Medicine 12/15/22 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 Date End Date Geeta Hickman MD NO FORWARDING ADDRESS PCP - General Internal Medicine 06/15/22 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 Date End Date Ashley Gomez APRN - CHIEF CATALYST OPERATOR [address] [place] [address] PCP - General Nurse Practitioner Family 11/11/2211/27 Naga Jin MD [address] [place] [address] PCP - General Family Medicine 12/15/22 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 Date End Date Naga Jin MD [address] [place] [id number] PCP - General Family Medicine 12/15/22 Team Status: Active Member Role Status Dates Dr. Ashok Siu MD Family Provider Active Ashley Gomez PHOTO PRINTER, PHOTO PRINTER-C Primary Care Provider Active Team Status: Inactive Member Role Status Dates Ashley Gomez PHOTO PRINTER, PHOTO PRINTER-C Primary Care Provider Active Dr. Wagner Reynolds MD Emergency Provider Active Team Status: Inactive Member Role Status Dates Ashley Gomez PHOTO PRINTER, PHOTO PRINTER-C Primary Care Provider Active Dr. Edgar Coffey MD Attending Provider Activ e 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 Date End Date Naga Jin MD [address] [place] [id number] PCP - General Family Medicine 12/15/22 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 Date End Date Naga Jin MD [address] [place] [address] PCP - General Family Medicine 12/15/22 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 Date End Date Naga Jin MD [address] [place] [address] PCP - General Family Medicine 12/15/22 Team Status: Inactive Member Role Status Dates Dr. Geeta Hickman MD Referring Provider Active Dr. Tanna Tam , Attending Provider Active Ashley Gomez PHOTO PRINTER, PHOTO PRINTER-C Primary Care Provider Active Team Status: Inactive Member Role Status Dates Ashley Gomez PHOTO PRINTER, PHOTO PRINTER-C Primary Care Provid er, Attending Provider, Referring Provider Active Team Status: Inactive Member Role Status Dates Ashley Gomez PHOTO PRINTER, PHOTO PRINTER-C Primary Care Provider Active Dr. Wagner Reynolds MD Attending Provider, Emergency Pro vider Active Team Status: Active Member Role Status Dates Ashley Gomez PHOTO PRINTER, PHOTO PRINTER-C Primary Care Provider Active Dr. Tanna Tam , Attending Provider, Referring Provider Active Team Status: Inactive Member Role Status Dates Ashley Gomez PHOTO PRINTER, PHOTO PRINTER-C Primary Care Provider Active Dr. Tanna Tam , Attending Provider, Referring Provider Active Team Status: Inactive Member Role Status Dates Ashley Gomez PHOTO PRINTER, PHOTO PRINTER-C Primary Care Provider Active Dr. Ashley Fair MD Attending Provider, Referring P jose Active Dr. Santana Crespo MD Other Provider Active 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 Date End Date Naga Jin MD [address] [place] [address] PCP - General Family Medicine 12/15/22 Team Status: Active Member Role Status Dates Ashley Gomez PHOTO PRINTER, PHOTO PRINTER-C Primary Care Provider Active Dr. Cirilo Garcias , DO Emergency Provider Active Dr. Ashley Fair MD Admit Provider, Attending Provi mikel Active Team Status: Inactive Member Role Status Dates Ashley Gomez NP, PHOTO PRINTER-C Primary Care Provider Active Dr. Cirilo Garcias , DO Emergency Provider Active Dr. Ashley Fair MD Admit Provider, Attending Provi mikel Active 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 Date End Date Ashley Gomez CNP [address] [place] [address] PCP - General Family Medicine 07/08/23 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 Date End Date Ashley Gomez CNP [address] [place] [address] PCP - General Family Medicine 07/08/23 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 Date End Date Ashley Gomez CNP [address] [place], [place] [phone] PCP - General Family Medicine 07/08/23 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 Date End Date Ashley Gomez CNP [address] [place] [id number] PCP - General Family Medicine 07/08/23 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 Date End Date Ashley Gomez CNP [address] [place], [place] [phone] PCP - General [facility] Medicine 07/08/23 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 Date End Date Naga Jin MD [address] [place] [phone] PCP - General Family Medicine 12/15/22 Team Status: Inactive Member Role Status Dates Dr. Geeta Hickman MD Referring Provider Active Ashley Gomez PHOTO PRINTER, PHOTO PRINTER-C Primary Care Provider Active Denise Duff NP-Krishan Attending Provider Active Team Status: Active Member Role Status Dates Ashley Gomez PHOTO PRINTER, PHOTO PRINTER-C Primary Care Provider Active Dr. Mickey Gutiérrez MD Attending Provider, Referring Provider Active Team Status: Inactive Member Role Status Dates Ashley Gomez PHOTO PRINTER, PHOTO PRINTER-C Primary Care Provider Active Denise Duff NP-C Attending Provider, Referring Pr ovider Active 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 Date End Date Naga Jin MD [address] [place] [phone] PCP - General Family Medicine 12/15/22 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 Date End Date Naga Jin MD [address] [place] [phone] PCP - General Family Medicine 12/15/22 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 Date End Date Naga Jin MD [address] [place] [phone] PCP - General Family Medicine 12/15/22 Cornell Holden MD [address] [place] [address] Surgeon Urology 08/27/23 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 Date End Date Naga Jin MD [address] [place] [address] PCP - General Family Medicine 12/15/22 Cornell Holden MD [address] [place] [address] Surgeon Urology 08/27/23 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 Date End Date Naga Jin MD [address] [place] [address] PCP - General Family Medicine 12/15/22 Cornell Holden MD [address] [place] [address] Surgeon Urology 08/27/23 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 Date End Date Naga Jin MD [address] [place] [address] PCP - General Family Medicine 12/15/22 Cornell Holden MD [address] [place] [address] Surgeon Urology 08/27/23 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 Date End Date Naga Jin MD [address] [place] [address] PCP - General Family Medicine 12/15/22 Cornell Holden MD [address] [place] [address] Surgeon Urology 08/27/23 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 Date End Date Naga Jin MD [address] [place] [address] PCP - General Family Medicine 12/15/22 Cornell Holden MD [address] [place] [address] Surgeon Urology 08/27/23 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 Date End Date Naga Jin MD [address] [place] [address] PCP - General Family Medicine 12/15/22 Cornell Holden MD [address] [place] [address] Surgeon Urology 08/27/23 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 Date End Date Naga Jin MD [address] [place] [address] PCP - General Family Medicine 12/15/22 Cornell Holden MD [address] [address] Surgeon Urology 08/27/23 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 Date End Date Naga Jin MD [address] [place], [place] [phone] PCP - General Family Medicine 12/15/22 Cornell Holden MD [address] [facility] [address] [place] [address] Surgeon Urology 08/27/23 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 Date End Date Geeta Hickman MD PCP - General Internal Medicine 06/15/22 07/07/23 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 Date End Date Ashok Siu MD PCP - General Family Medicine 03/21/17 06/14/22 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 Date End Date Ashley Gomez CNP [address] [place] [address] PCP - General Family Medicine 07/08/23 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 Date End Date Naga Jin MD [address] [place] [address] PCP - General Family Medicine 12/15/22 Cornell Holden MD [address] [facility] [address] [place] [address] Surgeon Urology 08/27/23 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 Date End Date Naga Jin MD [address] [facility] [place] [address] PCP - General Family Medicine 12/15/22 Cornell Holden MD 95 [facility] [address] [place] [address] Surgeon Urology 08/27/23 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 Date End Date Naga Jin MD [address] [place] [address] [place] [address] PCP - General Family Medicine 12/15/22 Cornell Holden MD [address] [facility] [address] [place] [address] Surgeon Urology 08/27/23 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 Date End Date Naga Jin MD [address] [place] [address] PCP - General Family Medicine 12/15/22 Cornell Hodlen MD [address] [place] [address] [address] [place] [address] Surgeon Urology 08/27/23 Scheduled Active and Recently Administ ered Medications (unrecognized section and content) Medication Order 10/16/2023 10/17/2023 10/18/2023 ketorolac (Toradol) injection 15 mg (COMPLETED) 15 mg, IntraVENous, Once, On Wed10/18/23 at 1320, For 1 dose 1337 (Given - Provid er: Marcelino Valencia RN) ondansetron (Zofran) injection 4 mg (COMPLETED) 4 mg, IntraVENous, Once, On Wed10/18/23 at 1320, For 1 dose 1337 (Given - Provid er: Marcelino Valencia RN) sodium chloride 0.9 % bolus 1,000 mL (COMPLETED) 1,000 mL, IntraVENous, at 1,000 mL/hr, Administer over 1 Hours, Once, On Wed10/18/23 at 1320, For 1 dose 1337 (New Bag - Prov ider: Marcelino Valencia RN)[id number] (Stopped - Provider: Marcelino Valnecia RN) INFORMATION SOURCE (unrecogn ized section and content) DATE CREATED AUTHOR 01/11/2024 [facility] DATE CREATED AUTHOR AUTHOR'S ORGANIZ ATION 08/24/2024 [facility] DATE CREATED AUTHOR AUTHOR'S ORGANIZ ATION 08/30/2024 [facility] FOR RECORDS PERTAINING TO PATIENTS WHO [...] BE BASED ON THE PRIMARY CLINICAL RECORDS. [employer] provides no warranty or guarantee of the accuracy or completeness of information in this document.
[2024-09-01 15:08] LABS: HPV APTIMA, High Risk Negative (Negative)
== END | disposition home or self-care (01) ==
LOC: LABSPEC 11:19
PROVIDERS: PCP Registered Nurse; Referring Provider Nurse Practitioner Family; Visit Provider Nurse Practitioner Family
DX: Z12.4 Encounter for screening for malignant neoplasm of cervix (principal)
CPT/HCPCS: 87624; 88175; G0145

== ENCOUNTER → 2024-09-01 | Outpatient (CLI) | payer MEDICAID, SELFPAY ==
--- NOTE | 2024-09-01 12:55 | US_ITS ---
PROCEDURE: PELVIC W/ TRANSVAGINAL 09/01/2024 REASON FOR EXAM: PELVIC PAIN LEFT TECHNIQUE: Transabdominal pelvic ultrasound COMPARISON: Ultrasound 02/28/2024 FINDINGS: Measurements: Uterus: 7.9 x 3.4 x 4.5 with a volume of 63 0.3 mL prior. Uterus: 8.7 x 4.9 x 3.6 with a volume of 63 0.3 mL. Anteverted Endometrial Thickness: 3.5 mm Right Ovary: 3.9 x 2.9 x 2.1 with a volume of mL. Left Ovary: 3.5 x 2.0 x 2.5 with a volume of mL. Uterus: Anteverted. Unremarkable size. Endometrium: Hyperechoic appearance. 3.5 mm thickness is probably within normal limits. Right ovary: Normal blood flow. 2.1 cm complex cyst in the right ovary. No adnexal mass. Left ovary: Normal blood flow. Unremarkable left ovary. No adnexal mass. Other: Incidental note of nabothian cysts in the cervix. No pelvic free fluid. Bladder volume at time of exam 175.7 mL US/Pelvic w/ Transvaginal IMPRESSION: Complex cystic lesion measuring 2.1 cm in the right ovary. Consider follow-up ultrasound in 6-8 weeks. Uterus unremarkable as seen. Reading [facility]
== END | disposition home or self-care (01) ==
LOC: US 12:54
PROVIDERS: PCP Registered Nurse; Referring Provider Obstetrics & Gynecology; Visit Provider Obstetrics & Gynecology
DX: R10.2 Pelvic and perineal pain (principal)
CPT/HCPCS: 76830; 76856

== ENCOUNTER → 2024-10-09 | Outpatient (CLI) | payer MEDICAID, SELFPAY ==
--- NOTE | 2024-10-09 20:50 | RAD_ITS ---
PROCEDURE: FINGER(S) MIN 2 VIEWS 10/09/2024 REASON FOR EXAM: INDEX FINGER MASS TECHNIQUE: FINGER(S) MIN 2 VIEWS COMPARISON: No FINDINGS: Mild osteoarthritic changes, interphalangeal joints, mainly small osteophyte formation, and juxta-articular soft tissue calcification.. No acute bone or soft tissue pathology. RAD/Finger(s) Min 2 Views IMPRESSION: Mild osteoarthritic changes Reading Location: [place] [address]
== END | disposition home or self-care (01) ==
LOC: RAD 20:38
PROVIDERS: PCP Registered Nurse
DX: M20.001 Unspecified deformity of right finger(s) (principal)
CPT/HCPCS: 73140

== ENCOUNTER → 2024-10-18 | Outpatient (CLI) | payer MEDICAID, SELFPAY ==
--- NOTE | 2024-10-18 11:52 | US_ITS ---
PROCEDURE: PELVIC W/ TRANSVAGINAL 10/18/2024 REASON FOR EXAM: PELVIC PAIN, OVARIAN CYST TECHNIQUE: PELVIC W/ TRANSVAGINAL. Transabdominal and transvaginal grayscale, color and spectral Doppler pelvic ultrasound. COMPARISON: 09/01/2024 and 02/28/2024 FINDINGS: ENDOMETRIUM: Homogeneous. Normal thickness of 2.5 mm. No abnormal endometrial color Doppler flow. UTERUS: Anteverted. Normal size and contour measuring 8.7 x 4.3 x 3.4 cm with parenchymal heterogeneity. No fibroid detected. CERVIX: Normal size and contour. Anechoic cervical nabothian cysts. RIGHT OVARY: Normal size and appearance measuring 3.0 x 2.1 x 1.8 cm. Normal follicles. Normal blood flow. No adnexal mass. LEFT OVARY: Normal size 3.3 x 2.7 x 2.2 cm containing a 1.7 x 2.0 x 1.7 cm cyst with internal echoes. Anechoic 1.0 x 1.2 x 0.7 cm cyst along the left ovary, likely a simple paraovarian cyst. Normal blood flow. No adnexal mass. FREE FLUID: Mild free fluid. OTHER: Normal appearance of the urinary bladder. US/Pelvic w/ Transvaginal IMPRESSION: Complex 2.0 cm left ovarian cyst, likely a hemorrhagic cyst. O-RADS US 2 - Araceli ost certainly benign category (<1% risk of malignancy). No follow-up recommended. Reading Location: [id number]
--- OUTSIDE RECORDS SUMMARY | 2024-10-18 19:45 | XMS RPT_ITS | CCD ---
Author Organization [facility] Care Team Providers Care Shellfish Dredge Operator Name Role Phone Ashok Siu MD Primary Care Provider [phone] Dr. Ashok Siu Primary Care Provider Dr. Ashok Siu Referring Provider JEANETH Saunders Attending Provider Dr. Geeta Hickman Attending Provider Ashok Siu MD Primary Care Provider [phone] Dr. Ashok Siu Primary Care Provider Dr. Ashok Siu Referring Provider Dr. Geeta Hickman Primary Care Provider Dr. Geeta Hickman Referring Provider JEANETH Ojeda Attending Provider Dr. Ashok Siu Primary Care Provider Dr. Ashok Siu Referring Provider Dr. Geeta Hickman Attending Provider Dr. Geeta Hickman Primary Care Provider Dr. Geeta Hickman Referring Provider JEANETH Ojeda Attending Provider Ashok Siu MD Primary Care Provider [phone] Ashok Siu MD Primary Care Provider Dr. Geeta Hickman Primary Care Provider Dr. Geeta Hickman Attending Provider Dr. Geeta Hickman Referring Provider [phone] JEANETH [...] 10 Dr. Danial Marshall Attending Provider Michelle SURVEY DIRECTOR, SURVEY DIRECTOR-C Jacqueline Attending Provider [phone] JEANETH Gabriel Attending Provider Geeta Hickman MD Primary Care Provider Unava david Cline SURVEY DIRECTOR, SURVEY DIRECTOR-C Sveta Attending Provider [phone] Marilu SURVEY DIRECTOR, SURVEY DIRECTOR-C Roseann Arriaga Attending Provider [phone] Dr. Geeta Hickman Primary Care Provider Dr. Geeta Hickman Referring Provider [phone] Dr. Geeta Hickman Attending Provider [phone] Dr. Chrystal Conteh Attending Provider [phone] Dr. Geeta Hickman Primary Care Provider Dr. Geeta Hickman Referring Provider [phone] Michelle SURVEY DIRECTOR, SURVEY DIRECTOR-C Jacqueline Attending Provider [phone] Sherron ELLISON, Ashok Mitchell Primary Care Provider Davin ELLISON, Naga Lay Primary Care Provider Jsaon MEDICAL RECORDS MANAGER - REGISTERED VETERINARY TECHNICIAN, [facility] Primary Care Provider Davin ELLISON, Naga Lay Primary Care Provider Jason MEDICAL RECORDS MANAGER - REGISTERED VETERINARY TECHNICIAN, [facility] Primary Care Provider Dr. Geeta Hickman Referring Provider Friend, Dr. Starr Attending Provider [phone] Jason SURVEY DIRECTOR, SURVEY DIRECTOR-C Merrill Primary Care Provider Dr. Geeta Hickman Referring Provider [phone] Friend, Dr. Starr Attending Provider [phone] Jason SURVEY DIRECTOR, SURVEY DIRECTOR-C Merrill Primary Care Provider [phone] Jason LINDSEY, Merrill Primary Care Provider Dr. Mickey Gutiérrez Attending Provider [phone] Dr. Mickey Gutiérrez Referring Provider [phone] TEJINDER Duff Attending Provider Adina ELLISON, Cornell Unavailable Vick ELLISON, Geeta Finnegan Primary Care Provider Sherron ELLISON, Ashok Mitchell Primary Care Provider MARIA ELENA CARVAJAL Attending Unavailable JASON, ASHLEY LOIDA Primary Care Unavailable FLETCHERFALLON RUELAS Referring Unavailab kaylyn GOMEZ, ASHLEY LOIDA Primary Care Unavailable FALLON RIVAS Attending Unavailab le JASON, ASHLEY LOIDA Primary Care Unavailable YOJANA LARES Attending Unavaila ble JASON, ASHLEY LOIDA Primary Care Unavailable MARIA ELENA CARVAJAL Referring Unavailable JASON, ASHLEY LOIDA Primary Care Unavailable Jason LINDSEY, Ashley Loida Primary Care Provider Jason SURVEY DIRECTOR-C, Ashley Primary Care Provider Jason SURVEY DIRECTOR-C, Ashley Referring Provider [phone] Elijah WYNN, Dr. Starr Attending Provider Omega MONTANOCDenise Attending Provider Omega BASURTO-CDenise Referring Provider Dr. Chrystal Conteh DO Attending Provider Dr. Chrystal Conteh DO Referring Provider Jason SURVEY DIRECTOR-C, Ashley Primary Care Provider [phone] Jason SURVEY DIRECTOR-C, Ashley Attending Provider Jason SURVEY DIRECTOR-C, Ashley Referring Provider [phone] Roseann Gee Attending Provider YONY GOMEZY Attending Unavailable DAVIN, NAGA Primary Care Unavailable JASON, ASHLEY Attending Unavailable DAVIN, NAGA Primary Care Unavailable JASON, ASHLEY Attending Unavailable DAVIN, NAGA Primary Care Unavailable LOWE, CHRISTA Attending Unavailable ABDOUL, CACHORRO Referring Unavailable DAVIN, NAGA Primary Care Unavailable JASON, ASHLEY Attending Unavailable DAVIN, NAGA Primary Care Unavailable JASON, ASHLEY Attending Unavailable DAVIN, NAGA Primary Care Unavailable LOWE, CHRISTA Attending Unavailable LOWE, CHRISTA Referring Unavailable DAVIN, NAGA Primary Care Unavailable DAVIN, NAGA Primary Care Unavailable ABDOUL, CACHORRO Attending Unavailable ABDOUL, CACHORRO Referring Unavailable DAVIN, NAGA Primary Care Unavailable JASON, ASHLEY Attending Unavailable DAVIN, NAGA Primary Care Unavailable Jason, Ashley Primary Care Unavailable Chrystal Conteh Referring Unavailabl e Chrystal Conteh Attending Unavailabl e Jason, Ashley Referring Unavailable Jason, Ashley Primary Care Unavailable Friend, Matty Attending Unavailable Jason, Ashley Referring Unavailable Jason, Ashley Primary Care Unavailable Julio C Goyal Attending Unavailable Denise Duff Attending Unavailable Jason, Ashley Primary Care Unavailable Jason, Ashley Referring Unavailable Julio C Goyal Attending Unavailable Jason, Ashley Primary Care Unavailable Jason, Ashley Referring Unavailable Jason, Ashley Primary Care Unavailable Jason, Ashley Referring Unavailable Friend, Matty Attending Unavailable Jason, Ashley Primary Care Unavailable Jerry Jayril Attending Unavailable Jason, Ashley Primary Care Unavailable Jason, Ashley Referring Unavailable Dina Ramos Attending Unavailable Jason, Ashley Primary Care Unavailable Pierre, Hiram Attending Unavailable Jason, Ashley Primary Care Unavailable Friend, Matty Attending Unavailable Jason, Ashley Referring Unavailable Jason, Ashley Primary Care Unavailable Jason, Ashley Referring Unavailable Friend, Matty Attending Unavailable Denise Duff Attending Unavailable [facility] Unavailable Denise Duff Referring Unavailable [facility] Unavailable Chrystal Conteh Referring Unavailabl e Chrystal Conteh Attending Unavailabl e Jason, Ashley Primary Care Unavailable Chapincito De La Rosa Attending Unavailable [facility] Primary Care Unavailable Deuce Hernadez Attending Unavailable William Hernadezer Referring Unavailable [facility] Unavailable Roseann Gee Attending Unavailable [facility] Unavailable Addison Og Chrystal Referring Unavailabl e Chrystal Conteh Attending Unavailabl e Ashley Gomez Attending Unavailable [facility] Unavailable Yony Gomezy Referring Unavailable Manjula ELLISON, Dr. Siemon Attending Provider [phone] Allergies Allergy Classification Reported Allergen(s) Allergy Type Date of Onset Reaction(s) Facility Quinolones (antibiotic) (1 source) Ofloxacin Drug Allergy 10-30-19 23 [facility] (20 sources) Ofloxacin; Translations: [OFLOXACIN] Drug Allergy 01-28-20 19 [facility] Work Phone: (11 sources) Environmental Allergies: Uncoded; Translations: [Environmental Allergies: Uncoded] Allergy to substance 06-03-19 24 Itching [facility] (20 sources) Seasonal allergy Environmental allergy 06-03-19 24 Itching [facility] (7 sources) Seasonal allergy; Translations: [SEASONAL ALLERGIES] Propensity to adverse reactions 07-08-19 24 Cough, Shortness of Breath [facility] (1 source) Ofloxacin Drug Allergy 08-31-19 25 [facility] Repository Medications Current Medications Medication Drug Class(es) Dates Sig (Normalized) Sig (Original) [id number] 200 actuat albuterol 0.09 mg/actuat metered dose inhaler (20 sources) beta2-Adrenergic Agonist Start: 03-30-2023 End: 03-09-2024 take 2 puff(s) by inhalation every six hours as needed for wheezing albuterol 108 (90 Base) MCG/ACT inhaler Indications: Mild intermittent asthma without complication Inhale 2 puffs every 6 hours as needed for wheezing. 18 g 2 03/09/2024 Active Start: 06-29-2023 take 5 mg by inhalat ion every six hours as needed for wheezing Albuterol Sulfate 2.5 mg/0.5 mL solution for nebulization Active 5 mg INHALATION EVERY 6 HOURS as needed for shortness of breath or wheezing 30 0 September 24, 2022 12:00am Start: 06-16-2022 End: 08-20-2022 take 2.5 mg by inhalation every four hours as needed for wheezing Albuterol Sulfate 2.5 mg /3 mL (0.083 %) solution for nebulization Discontinued 2.5 mg INHALATION EVERY 4 HOURS NEEDED 25 0 June 24, 2022 10:31am August 20, 2022 1:35pm Use q4 hours and PRN for wheezing Start: 10-29-2021 End: 12-10-2021 Albuterol Sulfate 90 mcg/act uation HFA aerosol inhaler Active 2 NMA INHALATION EVERY 6 HOURS as needed for shortness of breath or wheezing 8.5 1 December 10, 2021 10:45am Start: 10-29-2021 End: 12-10-2021 take 1 puff(s) [...] 1 December 10, 2021 12:00am As directed cephalexin 500 mg oral capsule (20 sources) Cephalosporin Antibacterial Start: 07-05-2023 take 1 capsule by mouth twice daily cephALEXin (KEFLEX) 500 mg capsule Take 500 mg by mouth two times a day. 07/05/2023 Active Start: 07-05-2023 End: 07-14-2023 take 1 capsule by mouth every twelve hours Cephalexin 500 mg capsule Discontinued 500 mg PO EVERY 12 HOURS 6 3 0 July 05, 2023 12:00am July 14, 2023 9:47am post-operative Start: 04-07-2023 take 1 capsule by mo uth three times daily cephalexin (Keflex) 500 MG capsule Take 500 mg by mouth 3 times daily. 04/07/2023 Active Start: 04-07-2023 End: 11-05-2023 Cephalexin 250 mg capsule Discontinued 250 mg PO NEEDED as needed for AFTER INTERCOURSE June 03, 2023 1:00am November 05, 2023 9:26am Start: 06-24-2022 End: 07-10-2022 Cephalexin 250 mg capsule Discontinued NMA PO June 24, 2022 12:00am July 10, 2022 12:39pm Start: 06-09-2022 End: 07-10-2022 take 1 capsule by mouth once daily at bedtime cephALEXin (KEFLEX) 250 mg capsule Take 250 mg by mouth daily at bedtime. 06/09/2022 Active Start: 11-02-2019 End: 11-15-2019 take 1 capsule by mouth three times daily Cephalexin 500 mg capsule Discontinued 500 mg PO THREE TIMES A DAY 15 0 November 02, 2019 12:00am November 15, 2019 9:55am Comment on above: Take 250 mg by mouth daily at bedtime. Take 500 mg by mouth two times a day. Cholestyramine, Bulk, powd (20 sources) Start: 11-27-2020 Cholestyramine, Bulk, powd Indications: Loose stools 4 g twice daily. 1000 g 1 11/27/2020 Active Comment on above: 4 g twice daily. clindamycin 0.01 mg/mg topical gel (16 sources) Lincosamide Antibacterial Start: 03-01-2024 clindamycin 1 % gel Apply 1-2 times a day to the affected areas on the face, thighs and back as needed for flares. 03/01/2024 Active Start: 07-04-2023 Clindamycin Ph osphate 1 % gel Active 1 NMA TOPICAL TWICE A DAY July 04, 2023 12:00am Cream Base No.175 (Bulk) (1 source) Start: 07-04-2023 Cream Base No.175 (Bulk) Active 1 APPLIC TOPICAL .BIW July 04, 2023 12:00am cyclobenzaprine hydrochloride 5 mg oral tablet (17 sources) Muscle Relaxant Start: 02-17-2024 End: 04-21-2024 take 1 tablet by mouth three times daily as needed for muscle spasms Cyclobenzaprine 5 mg tablet Active 5 mg PO THREE TIMES A DAY as needed for muscle spasm 30 0 April 21, 2024 1:00am doxycycline hyclate 100 mg oral tablet (9 sources) Tetracycline-c lass Drug Start: 05-12-2023 take 1 tablet by mouth every twelve [...] tablet by monet th every 12 hours. estradiol 0.1 mg/ml vaginal cream (9 sources) Estrogen Start: End: Estradiol 0.01 % (0.1 mg/gram) cream Active 0 VAGINAL .COMPLEX 42.5 0 August 30, 2024 11:03am 4 clicks vaginally twice a week/compounded cream fluconazole 200 mg oral tablet (2 sources) [...] Comment on above: Take 1 tablet by [facility] once daily for 14 days. FLUoxetine 20 mg oral capsule (20 sources) Serotonin Reuptake Inhibitor Start: 02-25-2024 End: 10-04-2024 take 1 capsule by mouth once daily Fluoxetine 20 mg capsule Active 20 mg PO daily April 05, 2024 1:00am Start: 10-11-2023 End: 02-09-2024 take 1 capsule by mouth once daily FLUoxetine (PROzac) 20 MG capsule Indications: Depressive disorder , Anxiety Take 1 capsule (20 mg) by mouth daily. Take with 40 mg dose for a total of 60 mg 90 capsule 1 10/11/2023 02/09/2024 Discontinued (Dose adjustment) Start: 09-15-2023 take 1 capsule by mo [facility] once daily FLUoxetine (PROzac) 20 MG capsule [...] 08/27/2023 Discontinued (Dose adjustment) Start: 12-10-2021 End: 10-04-2024 take 1 capsule by mouth once daily Fluoxetine 40 mg capsule Discontinued 40 mg PO DAILY 27 04February 09, 2022 1:21pm April 01, 2022 11:56am Start: 10-29-2021 End: 12-10-2021 take 1 tablet by mouth once daily Fluoxetine 20 mg tablet Discontinued 20 mg PO DAILY 30 October 29, 2021 3:40pm December 10, 2021 10:56am Start: 07-04-2020 End: 10-29-2021 Fluoxetine 10 mg tablet Discontinued 10 mg PO October 29, 2021 3:03pm October 29, 2021 3:53pm Start: 05-08-2020 End: 10-29-2021 Fluoxetine 10 mg tablet Discontinued 5 mg PO May 08, 2020 1:00am October 29, 2021 3:05pm Start: 05-08-2020 End: 10-29-2021 Fluoxetine Discontinued 5 MG PO May 08, 2020 1:00am October 29, 2021 3:05pm Start: 03-15-2018 End: 01-02-2019 take 1 capsule by mouth once daily Fluoxetine (Prozac) 20 mg capsule Discontinued 20 mg PO DAILY March 15, 2018 1:00am January 02, 2019 9:05am Comment on above: Take 10 mg by mouth once daily. Take 40 mg by mouth once daily. fluticasone propionate 0.05 mg/actuat metered dose nasal spray (20 sources) Corticosteroid Start: take 2 spray(s) nasal route once daily fluticasone (Flonase) 50 MCG/ACT nasal spray Administer 2 sprays into each nostril Nightly. Shake gently. Before first use, prime pump. After use, clean tip and replace cap. 16 g 2 05/28/2024 Active Start: 12-24-2021 End: 06-03-2023 take 50 ug nasal route once daily Fluticasone Propionate (Flonase Allergy Relief) 50 mcg/actuation spray,suspension Discontinued 1 NMA INTRANASAL DAILY 16 September 01, 2022 2:05pm June 03, 2023 9:28am administer into each nostril Start: 12-24-2021 End: 06-03-2023 take 1 spray(s) [...] (FLONASE) 50 mcg/actuation nasal spray Use 1 [place] in each nostril once daily. Active Comment on above: Use 1 [place] in each nostril once daily. gabapentin 100 mg oral capsule (7 sources) Anti-epileptic Agent Start: 08-18-2024 take 1 capsule by mouth twice daily Gabapentin 100 mg capsule Active 100 mg PO TWICE A DAY August 30, 2024 12:00am Start: 07-21-2024 take 1 capsule by [facility] once daily gabapentin (Neurontin) 100 MG capsule Indications: Neuropathy of right foot Take 1 capsule (100 mg) by mouth Nightly. 30 capsule 07/21/2024 Active lidocaine 0.05 mg/mg medicated patch (5 sources) Antiarrhythmic, Amide Local Anesthetic Start: 02-17-2024 Lidocaine (Lidoderm) 5 % adhesive patch,medicated Active 1 NMA TOPICAL DAILY 15 0 February 17, 2024 1:00am leave on most painful area for up to 12 hrs meloxicam 15 mg oral tablet (20 sources) Nonsteroidal Anti-inflammatory Drug Start: 03-30-2023 End: 02-28-2024 take 1 tablet by mouth once daily Meloxicam 15 mg tablet Active 15 mg PO DAILY June 03, 2023 1:00am Pain Do not take in conjunction with other NSAIDs. Tylenol is okay. Start: 12-18-2022 take 1 tablet by [facility] once daily meloxicam (Mobic) 15 MG tablet Indications: Osteoarthritis of both knees, unspecified osteoarthritis type Take 1 tablet (15 mg) by mouth daily. 30 tablet 2 12/18/2022 Active Start: 04-01-2022 End: 06-03-2023 take 1 tablet by mouth every other day Meloxicam 15 mg tablet Discontinued 15 mg PO .every other day 15 3 September 01, 2022 2:06pm June 03, 2023 9:28am Osteoarthritis of both knees Bilateral primary osteoarthritis of knee Pain Do not take in conjunction with other NSAIDs. Tylenol is okay. Start: 11-05-2021 End: 04-01-2022 take 1 tablet by mouth once daily Meloxicam 15 mg tablet Discontinued 15 mg PO DAILY 30 0 December 05, 2021 9:15am January 02, 2022 10:33am Osteoarthritis of both knees Bilateral primary osteoarthritis of knee Pain Do not take in conjunction with other NSAIDs. Tylenol is okay. Comment on above: Take 15 mg by mouth once daily. metoclopramide 5 mg oral tablet (3 sources) Dopamine-2 Receptor Antagonist Start: 12-12-19 take 2 tablets by mouth once daily at mealtime Metoclopramide Hcl (Reglan) 5 mg tablet Active 2.5 MG PO TWICE A DAY December 10, 2022 11:00pm take prior to two largest meals of the day Zaezafil-Dxo-Kxjh-Fa-V it K-Lut (Centrum Silver Women) 8 mg iron-400 mcg-50 mcg tablet (3 sources) Start: 11-07-19 take 1 tablet by mouth once daily Swojzseb-Ytu-Xahx-Fa- Vit K-Lut (Centrum Silver Women) 8 mg iron-400 mcg-50 mcg tablet Active 1 TABLET PO DAILY November 05, 2022 11:00pm bmlnduxqadfp-ceoz-isst rals-folic acid (Centrum) chewable tablet (20 sources) multivitamin-iro n-min erals-folic acid (Centrum) chewable tablet Chew 1 tablet daily. Active multivitamin-iro w-cxabpgal-jlwsb acid (Centrum) chewable tablet Chew 1 tablet [...] Comment on above: Take 1 capsule by [facility] twice daily for 5 days. ondansetron 4 mg disintegrating oral tablet (20 sources) Serotonin-3 Receptor Antagonist Start: 02-13-2024 take 1 tablet by mouth three times daily as needed for nausea and vomiting Ondansetron 4 mg tablet,disintegrati ng Active 4 mg PO THREE TIMES A DAY as needed for nausea and vomiting February 14, 2024 12:56am Start: 10-18-2023 End: 10-18-2023 4 mg, IntraVENous, Once, On Wed10/18/23 at 1320, For 1 dose Start: 02-04-2022 End: 04-05-2024 take 1 tablet by mouth every eight hours as needed for nausea and vomiting Ondansetron 4 mg tablet,disintegrating Discontinued 4 mg PO Q8H as needed for nausea and vomiting 30 September 01, 2022 12:00am April 05, 2024 10:59am Start: 10-29-2021 End: 11-05-2021 take 1 tablet by mouth every eight hours Ondansetron Hcl 4 mg tablet Discontinued 4 mg PO Q8H October 29, 2021 12:00am November [...] every 8 hours as needed for nausea/vomiting. sucralfate 100 mg/ml oral suspension (12 sources) Aluminum Complex Start: take 1 g by mouth twice daily sucralfate (Carafate) 1 GM/10ML suspension Take 1 g by mouth 2 times daily. 05/02/2024 Active Start: 04-05-2024 take 1 mL by mouth twice daily Sucralfate (Carafate) 100 mg/mL suspension Active 10 mL PO TWICE A DAY 600 30 8 April 05, 2024 1:00am trolamine salicylate 100 mg/ ml topical cream (20 sources) trolamine salicy late (Aspercreme) 10 % cream Apply topically if needed for muscle/joint pain. Active Completed/Discontinued Medications Medication Drug Class(es) Dates Sig (Normalized) Sig (Original) acetaminophen 325 mg / oxyCODONE hydrochloride 5 mg oral tablet (20 sources) Opioid Agonist Start: 07-05-2023 End: 07-14-2023 Oxycodone-Acetamino phen (Percocet) 5-325 mg tablet Discontinued 1 {tbl} PO Q8H as needed for pain 10 3 0 July 05, 2023 July 14, 2023 9:47am Gross hematuria Gross hematuria Start: 06-10-2023 End: 07-04-2023 Oxycodone-Acetaminophen (Per cocet) 5-325 mg tablet Discontinued 1 {tbl} PO Q8H as needed for pain 3 1 0 June 10, 2023 July 04, 2023 10:28am Lesion of urinary bladder Bladder disorder, unspecified Start: 11-28-2019 End: 12-05-2019 Oxycodone-Acetaminophen 1 TA BLET tablet Discontinued 1 - 2 {tbl} PO EVERY 6 HOURS NEEDED as needed for Pain 8 7 0 November 28, 2019 December 04, 2019 12:00am December 05, 2019 12:02am Postoperative pain Other acute postprocedural pain Start: 11-28-2019 End: 12-05-2019 take 1 tablet by mouth every six hours as needed Oxycodone-Acetaminophen Discontinued 1 - 2 TABLET PO EVERY 6 HOURS NEEDED 8 7 November 28, 2019 December 05, 2019 12:02am Comment on above: TAKE 1 TABLET BY MONET TH EVERY 8 HOURS NEEDED FOR PAIN FOR 3 DAYS acyclovir 800 mg oral tablet (20 sources) Herpesvirus Nucleoside Analog DNA Polymerase Inhibitor, Herpes Simplex Virus Nucleoside Analog DNA Polymerase Inhibitor, Herpes Zoster Virus Nucleoside Analog DNA Polymerase Inhibitor Start: 07-29-19 End: 08-05-19 21 take 5 tablets by mouth every twenty-four hours Acyclovir 800 mg tablet Discontinued 800 mg PO Q4H 35 7 0 July 28, 2020 12:00am August 03, 2020 12:00am August 04, 2020 12:01am while awake; give 5 doses in 24 hours amoxicillin 500 mg oral capsule (20 sources) Penicillin-class Antibacterial Start: 05-08-19 End: 05-18-19 21 take 2 capsules by mouth twice daily Amoxicillin 500 mg capsule Discontinued 1000 mg PO TWICE A DAY 40 10 0 May 08, 2020 1:00am May 17, 2020 1:00am May 18, 2020 1:03am Start: 05-08-2020 End: 05-18-2020 take 1000 mg by mouth twice daily Amoxicillin Discontinued 1000 MG PO TWICE A DAY 40 10 May 08, 2020 1:00am May 18, 2020 1:03am azelastine hydrochloride 0.137 mg/actuat / fluticasone propionate 0.05 mg/actuat metered dose nasal spray (17 sources) Corticosteroid, Histamine-1 Receptor Antagonist Start: 07-10-2022 End: 08-20-2022 Azelastine-Fluticasone 137-50 mcg/spray spray,non-aerosol Discontinued 1 NMA INTRANASAL TWICE A DAY 18 09July 10, 2022 12:00am August 20, 2022 1:35pm administer into each nostril Start: 07-10-2022 End: 08-20-2022 take 1 spray(s) nasal route twice daily Azelastine-Fluticasone Discontinued 1 SPRAY INTRANASAL TWICE A DAY [...] mg tablet Discontinued 0 PO .COMPLEX 6 0 September 07, 2021 12:00am October 29, 2021 3:03pm For 250 mg dose pack: take 500 mg today (day 1), then 250 mg for 4 days (days 2-5) PO benzonatate 200 mg oral capsule (20 sources) Non-narcotic Antitussive Start: 07-10-2022 End: 08-20-2022 take 1 capsule by mouth three times daily as needed for cough Benzonatate 200 mg capsule Discontinued 200 mg PO THREE TIMES A DAY as needed for cough 90 0 July 10, 2022 12:00am August 20, 2022 [...] by mouth three times daily as needed. 24 hr buPROPion hydrochloride 300 mg extended release oral tablet (20 sources) Aminoketone Start: 11-25-19 End: 07-22-19 take 1 tablet by mouth once daily in the morning Bupropion Hcl (Wellbutrin Xl) 300 mg tablet extended release 24 hr Discontinued 300 mg PO EVERY MORNING January 02, 2019 12:00am June 24, 2022 10:32am End: 10-16-2020 BUPROPION HCL (WELLBUTRIN XL ORAL) Take by mouth. 10/16/2020 Discontinued Comment on above: Take 1 tablet by monet th once daily. 12 hr chlorpheniramine polistirex 1.6 mg/ml / HYDROcodone polistirex 2 mg/ml extended release suspension (1 source) Histamine-1 Receptor Antagonist, Opioid Agonist Start: 03-31-19 End: 10-17-19 take 5 mL by mouth every twelve hours as needed Chlorpheniramine-HYDRO codone (TUSSIONEX) 10-8 mg/5 mL suspension Take 5 mL by mouth every 12 hours as needed for Cough. 180 mL 0 03/31/2015 10/16/2020 Discontinued cholecalciferol 0.05 mg oral capsule (20 sources) Vitamin D Start: 04-04-19 End: 05-28-19 take 1 capsule by mouth once daily Cholecalciferol (Vitamin D3) 2,000 unit capsule Discontinued 2000 U PO DAILY April 04, 2018 1:00am May 28, 2019 10:38am take 1 tablet by mouth once vignesh y cholecalciferol (Vitamin D-3) 50 MCG (2000 UT) tablet Take 2,000 Units by mouth daily. Active codeine phosphate 2 mg/ml / guaiFENesin 20 mg/ml oral solution (17 sources) Opioid Agonist Start: 06-24-2022 End: 08-20-2022 take 1 mL by mouth every six hours as needed for cough Codeine-Guaifenesin 10-100 mg/5 mL liquid Discontinued 5 mL PO EVERY 6 HOURS as needed for cough 118 0 June 24, 2022 12:00am August 20, 2022 1:35pm Acute upper respiratory infection Acute upper respiratory infection, unspecified Start: 06-24-2022 End: 08-20-2022 take 1 mL by mouth every six hours Codeine-Guaifenesin Discontinued 5 ML PO EVERY 6 HOURS 118 June 24, 2022 12:00am August 20, 2022 1:35pm Cream Base No.175 (Bulk) (Versatile Rich) cream (8 sources) Start: 07-04-2023 End: 08-30-2024 Cream Base No.175 (Bulk) (Versatile Rich) cream Discontinued 1 NMA TOPICAL .BIW July 04, 2023 12:00am August 30, 2024 10:04am Start: 07-04-2023 Cream Base No. 175 (Bulk) (Versatile Rich) cream Active 1 APPLIC TOPICAL .BIW July 04, 2023 12:00am D-Mannose (20 sources) Start: 05-20-2022 End: 06-03-2022 take 1 capsule by mouth once D-Mannose 500 mg capsule Discontinued mg PO May 20, 2022 1:00am June 03, 2022 4:26pm Start: 05-20-2022 End: 06-03-2022 take 1 mg [...] 11, 2019 11:25am Start: 04-06-2019 End: 10-11-2019 take 0.15 tablet by mouth once daily Desogestrel-Ethinyl Estradiol (Apri) 0.15-0.03 mg tablet Discontinued 1 {tbl} PO daily 84 4 April 06, 2019 1:00am October 11, 2019 11:25am Start: 04-06-2019 End: 10-11-2019 take 0.15 tablet by mouth once daily Desogestrel-Ethinyl Estradiol (Apri) 0.15-0.03 mg tablet Discontinued 1 {tbl} PO daily 84 April 06, 2019 1:00am October 11, 2019 11:25am Start: 04-06-2019 End: 10-11-2019 Desogestrel-Ethinyl Estradio l (Apri) 0.15-0.03 mg tablet Discontinued 1 TABLET PO daily 84 April 06, 2019 12:00am October 11, 2019 10:25am Start: 04-06-2019 End: 10-11-2019 Desogestrel-Ethinyl Estradio l (Apri) 0.15-0.03 mg tablet Discontinued 1 TABLET PO daily April 06, 2019 1:00am October 11, 2019 11:25am Diclofenac Sodium (Pennsaid) 20 mg/gram /actuation(2 %) solution in metered-dose pump (20 sources) Start: 06-03-2023 End: 07-04-2023 Diclofenac Sodium (Pennsaid) 20 mg/gram /actuation(2 %) solution in metered-dose pump Discontinued 2 NMA TOPICAL TWICE A DAY as needed for Pain June 03, 2023 1:00am July 04, 2023 10:27am apply to left knee BID Start: 06-03-2023 End: 07-04-2023 Diclofenac Sodium (Pennsaid) [...] %) solution in metered-dose pump Discontinued 2 NMA TOPICAL TWICE A DAY 112 0 December 18, 2022 12:00am June 03, 2023 9:28am Osteoarthritis of left knee Unilateral primary osteoarthritis, left knee Pain apply to left knee BID Start: 12-18-2022 End: 06-03-2023 Diclofenac Sodium (Pennsaid) 20 mg/gram /actuation(2 %) solution in metered-dose pump Discontinued 2 NMA TOPICAL TWICE A DAY 112 December 18, 2022 12:00am June 03, 2023 [...] 2022 11:00pm apply to left knee BID dicyclomine hydrochloride 10 mg oral capsule (20 sources) Anticholinergic Start: 12-31-2020 End: 05-26-2024 Dicyclomine 10 mg capsule Discontinued 10 mg PO .PRN October 29, 2021 12:00am November 05, 2021 11:30am Start: 04-04-2018 End: 01-02-2019 Dicyclomine 20 mg tablet Dis continued 20 mg PO .4 times per day April 04, 2018 1:00am January 02, 2019 9:06am Comment on above: Take 1 capsule by [facility] three times daily as needed (abdominal pain). Levonorgestrel-Et hinyl Estrad (20 sources) Progestin, Estrogen, Progestin-containing Intrauterine Device Start: 01-02-2019 End: 04-06-2019 take 1 tablet by mouth once daily Levonorgestrel-Ethiny l Estrad Discontinued 1 TABLET PO DAILY January 02, 2019 9:23am April 06, 2019 11:48am Start: 01-02-2019 End: 04-06-2019 Levonorgestrel-Ethinyl Estra d 0.15-0.03 mg tablet Discontinued 1 {tbl} PO DAILY 23 06January 02, 2019 12:00am April 06, 2019 11:48am Start: 01-02-2019 End: 04-06-2019 Levonorgestrel-Ethinyl Estra d 0.15-0.03 mg tablet Discontinued 1 {tbl} PO DAILY January 02, 2019 12:00am April 06, 2019 11:48am Start: 01-02-2019 End: [...] 08, 2020 4:54pm Start: 10-11-2019 End: 05-08-2020 Norgestimate-Ethinyl Estradi ol (Sprintec (28)) 0.25-35 mg-mcg tablet Discontinued 1 {tbl} PO daily October 11, 2019 12:00am May 08, 2020 4:54pm Start: 10-11-2019 End: 05-08-2020 Norgestimate-Ethinyl Estradi ol (Sprintec (28)) 0.25-35 mg-mcg tablet Discontinued 1 {tbl} PO daily October 11, 2019 12:00am May 08, 2020 4:54pm Start: 10-11-2019 End: [...] 12/01/2018 10/16/2020 Discontinued Start: 04-04-2018 End: 01-02-2019 Norgestimate-Ethinyl Estradi ol (Zvc-Rx-Bkhofu) 0.18/0.215/0.25 mg-25 mcg tablet Discontinued 1 {tbl} PO DAILY 84 April 04, 2018 12:40pm January 02, 2019 9:23am Start: 04-04-2018 End: 01-02-2019 Norgestimate-Ethinyl Estradi ol (Esl-Wl-Xmllxj) 0.18/0.215/0.25 mg-25 mcg tablet Discontinued 1 {tbl} PO DAILY April 04, 2018 12:40pm January 02, 2019 9:23am Start: 04-04-2018 End: 01-02-2019 take 1 tablet by mouth once daily Norgestimate-Ethinyl Estradiol (Adh-Cb-Jukiys) 0.18/0.215/0.25 mg-25 mcg tablet Discontinued 1 TABLET PO DAILY April 04, 2018 11:40am January 02, 2019 8:23am Start: 04-04-2018 End: 01-02-2019 take 1 tablet by mouth once daily Norgestimate-Ethinyl Estradiol (Awi-Yq-Penaki) 0.18/0.215/0.25 mg-25 mcg tablet Discontinued 1 TABLET PO DAILY April 04, 2018 12:40pm January 02, 2019 9:23am Start: 03-15-2018 End: 04-04-2018 take 1 tablet by mouth once daily Norgestimate-Ethinyl Estradiol (Ygd-Ak-Vhvmmo) 0.18/0.215/0.25 mg-25 mcg tablet Discontinued 1 TABLET PO DAILY March 15, 2018 10:59am April 04, 2018 12:41pm Start: 03-15-2018 End: 04-04-2018 Norgestimate-Ethinyl Estradi ol (Iqp-Pe-Xvlgfg) 0.18/0.215/0.25 mg-25 mcg tablet Discontinued 1 {tbl} PO DAILY March 15, 2018 1:00am April 04, 2018 12:41pm Start: 03-15-2018 End: 04-04-2018 take 1 tablet by mouth once daily Norgestimate-Ethinyl Estradiol (Ybq-Mv-Bubuet) 0.18/0.215/0.25 mg-25 mcg tablet Discontinued 1 TABLET PO DAILY March 15, 2018 12:00am April 04, 2018 11:41am Start: 03-15-2018 End: 04-04-2018 take 1 tablet by mouth once daily Norgestimate-Ethinyl Estradiol (Kpg-Ca-Yhqvqa) 0.18/0.215/0.25 mg-25 mcg tablet Discontinued 1 TABLET PO DAILY March 15, 2018 1:00am April 04, 2018 12:41pm End: 10-16-2020 Norgestimate-Ethinyl Estradi ol (ORTHO TRI-CYCLEN, 28,) 0.18/0.215/0.25 mg-35 mcg (28) tab Take by mouth. 10/16/2020 Discontinued etodolac 300 mg oral capsule (20 sources) Nonsteroidal Anti-inflammatory Drug Start: 12-14-2014 End: 03-15-2018 take 1 capsule by mouth three times daily at mealtime Etodolac 300 MG capsule Discontinued 300 mg PO 3 TIMES DAILY WITH MEALS December 14, 2014 12:00am March 15, 2018 10:59am with food fexofenadine hydrochloride 180 mg oral tablet (20 sources) Histamine-1 Receptor Antagonist Start: 12-24-2021 End: 06-03-2022 take 1 tablet by mouth once daily Fexofenadine (Mayelin Allergy) 180 mg tablet Discontinued 180 mg PO DAILY 10 December 24, 2021 12:00am June 03, 2022 [...] On Wed10/18/23 at 1320, For 1 dose lisinopril 5 mg oral tablet (20 sources) Angiotensin Converting Enzyme Inhibitor Start: 12-25-19 End: 11-23-19 take 1 tablet by mouth once daily Lisinopril 5 mg tablet Discontinued 5 mg PO DAILY 30 2 May 01, 2022 9:50am August 13, 2022 12:15pm Comment on above: Take by mouth. metroNIDAZOLE 500 mg oral tablet (20 sources) Nitroimidazole Antimicrobial Start: 06-04-19 End: 06-11-19 take 1 tablet by mouth twice daily Metronidazole 500 mg tablet Discontinued 500 mg PO TWICE A DAY 14 7 0 June 03, 2022 1:00am June 09, 2022 12:00am June 10, 2022 12:04am Start: 11-27-2019 End: 12-21-2019 take 1 tablet by mouth twice daily Metronidazole (Flagyl) 500 mg tablet Discontinued 500 mg PO TWICE A DAY 14 0 November 27, 2019 12:00am December 21, 2019 12:55pm Momgwewxzffx-Jsjs-Xkclj Acid (Centrum Complete) 18-400 mg-mcg tablet (10 sources) Start: 06-03-2023 End: 08-30-2024 Xqdzqtvklhdz-Cusy-Tcoev Acid (Centrum Complete) 18-400 mg-mcg tablet Discontinued 1 {tbl} PO DAILY June 03, 2023 1:00am August 30, 2024 10:04am Start: 06-03-2023 take 1 tablet by monet once daily Uzdchkehuqzk-Omfc-Oarjb Acid (Centrum Complete) 18-400 mg-mcg tablet Active 1 TABLET PO DAILY June 03, 2023 1:00am naproxen 250 mg oral tablet (20 sources) Nonsteroidal Anti-inflammatory Drug Start: 11-28-2019 End: 12-13-2019 take 250-500 mg by mouth every eight hours as needed for pain Naproxen 250 MG tablet Discontinued 250 - 500 mg PO EVERY 8 HOURS NEEDED as needed for MILD PAIN 30 November 28, 2019 12:00am December 13, 2019 11:43am nitrofurantoin, macrocrystals 100 mg oral capsule (20 sources) Nitrofuran Antibacterial Start: 12-21-2019 End: 05-08-2020 take 1 capsule by mouth twice daily at mealtime Nitrofurantoin Macrocrystal 100 mg capsule Discontinued 100 mg PO TWICE A DAY 14 0 December 21, 2019 12:00am May 08, 2020 4:53pm must administer with a meal/food Start: 04-06-2019 End: 04-13-2019 take 1 capsule by mouth twice daily at mealtime Nitrofurantoin Macrocrystal 100 mg capsule Discontinued 100 mg PO TWICE A DAY 14 7 0 April 06, 2019 1:00am April 12, 2019 1:00am April 13, 2019 1:07am administer with food (meal or snack) nortriptyline 25 mg oral capsule (20 sources) Tricyclic Antidepressant Start: 04-06-2019 End: 05-28-2019 Nortriptyline 25 mg capsule Discontinued 25 mg PO .prn as needed April 06, 2019 1:00am May 28, 2019 10:39am omeprazole 20 mg delayed release oral capsule (20 sources) Proton Pump Inhibitor Start: 06-03-2022 End: 08-04-2022 take 2 capsules by mouth twice daily Omeprazole 20 mg capsule,delayed release(DR/EC) Discontinued 40 mg PO TWICE A DAY June 03, 2022 4:28pm August 04, 2022 1:21pm Start: 06-03-2022 End: 08-04-2022 take 40 mg by mouth twice daily Omeprazole Discontinue d 40 MG PO TWICE A DAY June 03, 2022 4:28pm August 04, 2022 1:21pm Start: 06-03-2022 take 1 capsule by [facility] twice daily omeprazole (PRILOSEC) 40 mg capsule [...] 02/11/2022 Active Start: 05-08-2020 End: 06-03-2022 take 1 capsule by mouth twice daily Omeprazole 20 mg capsule,delayed release(DR/EC) Discontinued 20 mg PO TWICE A DAY October 29, 2021 3:04pm June 03, 2022 4:28pm Start: 03-15-2018 End: 01-02-2019 take 1 capsule by mouth once daily Omeprazole 20 mg capsule,delayed release(DR/EC) Discontinued 20 mg PO DAILY March 15, 2018 1:00am January 02, 2019 9:06am Comment on above: Take 1 capsule by mo [facility] twice daily. oxyCODONE hydrochloride 5 mg oral tablet (5 sources) Opioid Agonist Start: 4 End: take 1 tablet by mouth every six hours as needed for pain Oxycodone 5 mg tablet Discontinued 5 mg PO EVERY 6 HOURS as needed for pain 12 3 0 February 13, 2024 April 05, 2024 11:00am Contusion of multiple sites Unspecified multiple injuries, initial encounter pantoprazole 20 mg delayed release oral tablet (20 sources) Proton Pump Inhibitor Start: End: 5 take 1 tablet by mouth twice daily Pantoprazole 20 mg tablet,delayed release (DR/EC) Discontinued 20 mg PO TWICE A DAY 60 3 February 28, 2024 3:54pm April 13, 2024 8:38am Start: 09-30-2022 End: 11-08-2023 take 1 tablet by mouth once daily Pantoprazole 40 mg tablet,delayed release (DR/EC) Discontinued 40 mg PO DAILY 90 2 November 08, 2023 12:58pm November 08, 2023 1:16pm Start: 08-04-2022 End: 09-30-2022 take 1 tablet by mouth twice daily Pantoprazole 40 mg tablet,delayed release (DR/EC) Discontinued 40 mg PO TWICE A DAY 180 0 August 04, 2022 12:00am September 30, 2022 10:14am pantoprazole (Pr otoNix) 40 MG EC tablet Indications: Gastroesophageal reflux disease, unspecified whether esophagitis present Take 20 mg by mouth 2 times daily. Do not crush, chew, or split. Active Comment on above: Take 1 tablet by [facility] every afternoon. phenazopyridine hydrochloride 200 mg oral tablet (20 sources) Start: 07-05-19 End: 07-14-19 take 1 tablet by mouth three times daily as needed for muscle spasms Phenazopyridine (Pyridium) 200 mg tablet Discontinued 200 mg PO 3 TIMES DAILY NEEDED as needed for Bladder Spasms 30 7 0 July 05, 2023 12:00am July 14, 2023 9:47am Start: 12-21-2019 End: 05-08-2020 take 1 tablet by mouth three times daily as needed for pain Phenazopyridine (Pyridium) 100 mg tablet Discontinued 100 mg PO THREE TIMES A DAY as needed for pain 6 0 0 December 21, 2019 12:00am May 08, 2020 4:54pm phentermine hydrochloride 37.5 mg oral tablet (18 sources) Sympathomimetic Amine Anorectic Start: 05-03-2023 End: 07-04-2023 take 1 tablet by mouth once daily Phentermine 37.5 mg tablet Discontinued 37.5 mg PO DAILY June 03, 2023 1:00am July 04, 2023 10:28am Comment on above: Take 1 tablet (37.5 mg) by mouth every morning (before breakfast). BMI 36.49 polyethylene glycol 3350 80602 mg powder for oral solution (20 sources) Osmotic Laxative Start: 04-04-2018 End: 01-02-2019 Polyethylene Glycol 3350 (Miralax) 17 gram/dose powder Discontinued PO 0 April 04, 2018 1:00am January 02, 2019 9:07am Start: 04-04-2018 End: 01-02-2019 Polyethylene Glycol 3350 (Mi ralax) 17 gram/dose powder Discontinued PO April 04, [...] 1 tablet by mouth once daily Prednisone 10 mg tablet Discontinued 10 mg PO DIRECTED 26 0 June 16, 2022 12:00am July 08, 2022 [...] 06/15/2022 06/19/2022 Start: 09-07-2021 End: 10-29-2021 Prednisone 10 mg tablet Discontinued 10 mg PO .COMPLEX 30 0 September 07, 2021 12:00am October 29, 2021 3:04pm Take 4 pills for 3 days, 3 pills for 3 days, 2 pills for 3 days, take 1 pill for 3 days Comment on above: Take 1 tablet by monet th once daily for 4 days. Take daily [...] For 1 dose technetium Tc-99m sulfur colloid (WebXiomd-[employer]) radio-isotope solution 1.1 millicurie (2 sources) Start: 11-20-2022 End: 11-20-2022 technetium Tc-99m sulfur colloid (Nycomed-SC) radio-isotope solution 1.1 millicurie traMADol hydrochloride 50 mg oral tablet (16 sources) Opioid Agonist Start: 12-18-2022 End: 04-21-2023 Tramadol Discontinued MG PO December 18, 2022 12:00am April 21, 2023 5:19pm Start: 12-16-2022 End: 04-21-2023 Tramadol 50 mg tablet Discon tinued mg PO December 18, 2022 12:00am April 21, 2023 5:19pm traZODone hydrochloride 50 mg oral tablet (1 source) Serotonin Reuptake Inhibitor Start: 11-24-2018 End: 10-16-2020 take 1 tablet by mouth once daily traZODone (DESYREL) 50 mg tablet Take 1 tablet by mouth once daily. 11/24/2018 10/16/2020 Discontinued triamcinolone acetonide 1 mg/ml topical cream (9 sources) Corticosteroid Start: 07-04-2023 End: 08-30-2024 Triamcinolone Acetonide 0.1 % cream Discontinued 1 NMA TOPICAL NEEDED July 04, 2023 12:00am August 30, 2024 10:04am Start: 07-04-2023 Triamcinolone Acetonide Active 1 APPLIC TOPICAL NEEDED July 04, 2023 12:00am valACYclovir 1000 mg oral tablet (20 sources) Herpesvirus Nucleoside Analog DNA Polymerase Inhibitor, Herpes Simplex Virus Nucleoside Analog DNA Polymerase Inhibitor, Herpes Zoster Virus Nucleoside Analog DNA Polymerase Inhibitor Start: 07-04-2023 End: 07-04-2023 Valacyclovir 1 gram tablet Discontinued 1000 mg PO DAILY July 04, 2023 12:00am July 04, 2023 10:28am Start: 07-04-2023 End: 07-04-2023 take 1000 mg [...] 03/08/2023 03/09/2023 Active Start: 05-28-2019 End: 06-04-2019 Valacyclovir 1 gram tablet Discontinued 1000 mg PO Q8H 21 7 0 May 28, 2019 1:00am June 03, 2019 1:00am June 04, 2019 1:09am herpes zoster Start: 05-28-2019 End: 06-04-2019 take 1000 mg by mouth every eight hours Valacyclovir Discontinued 1000 MG PO Q8H 16 10May 28, 2019 1:00am June 04, 2019 1:09am Problems Active Problems Problem Classification Problem Date Documented Da te Episodic/Chronic Abdominal pain (20 sources) Pain in pelvis; Translations: [Pelvic and perineal pain] Onset: 4 Episodic Acute bronchitis (18 sources) Acute viral bronchitis; Translations: [Acute bronchitis [...] [Unspecified asthma, uncomplicated] Onset: 3 03-24-2021 Chronic Cancer of cervix (20 sources) Low grade squamous intraepithelial lesion on cervical Papanicolaou smear; Translations: [Low grade squamous intraepithelial lesion on cytologic smear of cervix (LGSIL)] Onset: 3 Resolved: 3 08-28-2022 Episodic Chronic obstructive pulmonary disease and bronchiectasis (20 [...] urinary incontinence; Translations: [Urinary incontinence, unspecified] Chronic Genitourinary symptoms and ill-defined conditions (20 sources) History of urinary tract infection; Translations: [Personal history of urinary (tract) infections] Onset: 4 Episodic Immunizations and screening for infectious disease (20 sources) Patient encounter status; Translations: [Encounter for screening for COVID-19] Onset: 4 Episodic Intracranial injury (5 sources) Concussion injury of body structure; Translations: [Concussion] 02-22-2024 Episodic Menopausal disorders (8 sources) Atrophy of vagina; Translations: [Postmenopausal atrophic vaginitis] 08-30-2024 Chronic Menstrual disorders (20 sources) Menorrhagia; Translations: [Excessive and frequent menstruation with regular cycle] 10-29-2021 Chronic Comment on above: Failed OCP X 3, norm al [place]. Surg consult Dr. Sweet Mood disorders (20 sources) Depressive disorder; Translations: [Depression] Onset: 8 03-21-2010 Chronic Comment on above: ON MED Mood disorders (20 sources) Mood disorders; Translations: [Depression, unspecified] Onset: 3 Resolved: 5 06-18-2023 Nausea and vomiting (20 sources) Nausea and vomiting; Translations: [Nausea with [...] localized, lower leg] Onset: 3 Chronic Other acquired deformities (1 source) Unspecified deformity of right finger(s); Translations: [Unspecified deformity of right finger(s)] Onset: Episodic Other and unspecified benign neoplasm (20 sources) [...] Episodic Other diseases of bladder and urethra (10 sources) Lesion of bladder; Translations: [Bladder disorder, unspecified] 06-10-2023 Chronic Other diseases of bladder and urethra (3 sources) Bladder disorder, unspecified; Translations: [Unspecified disorder of bladder] 07-05-2023 Chronic Other disorders of stomach and duodenum (10 sources) Gastroparesis syndrome; Translations: [Gastroparesis] 04-05-2024 Episodic Other female genital disorders (20 sources) Abnormal [...] syndrome; Translations: [Mixed irritable bowel syndrome] Onset: 5 Chronic Other gastrointestinal disorders (20 sources) H/O: gastrointestinal disease; Translations: [Personal history of other diseases of the digestive system] 10-29-2021 Episodic Other gastrointestinal disorders (19 sources) Abdominal bloating; Translations: [Abdominal distension (gaseous)] Episodic Other gastrointestinal disorders (3 sources) Abdominal distension (gaseous); Translations: [Flatulence, eructation, and gas pain] 07-17-2022 Episodic Other hematologic conditions (10 sources) Serum total protein abnormal; Translations: [Other specified abnormalities of plasma proteins] 05-18-2023 Episodic Comment on above: Chromogranin A Other injuries and conditions due to external causes (3 sources) Injury of left knee; Translations: [Unspecified injury of left lower leg, initial encounter] 12-16-2022 Episodic Other injuries and conditions due to external causes (5 sources) Contusion of multiple sites; Translations: [Unspecified multiple injuries, initial encounter] 02-22-2024 Episodic Other lower respiratory disease (20 sources) Cough; Translations: [Cough] Episodic Other lower respiratory disease (2 sources) Dyspnea; Translations: [Shortness of breath] Episodic Other lower respiratory disease (1 source) Cough; Translations: [Acute cough] 06-15-2022 Episodic Other lower respiratory disease (5 sources) Rib pain; Translations: [Pleurodynia] 02-25-2024 Episodic Other nervous system disorders (1 source) Right leg peripheral neuropathy; Translations: [Unspecified mononeuropathy of right lower limb] 07-21-2024 Chronic Other nervous system disorders (2 sources) Unspecified mononeuropathy of right lower limb; Translations: [Unspecified mononeuropathy of right lower limb] Onset: 5 Chronic Other nervous system disorders (20 sources) H/O: Disorder; Translations: [Personal history of other diseases of the nervous system and sense organs] 10-29-2021 Episodic Other non-epithelial cancer of skin (20 sources) History of malignant neoplasm of skin; Translations: [Personal history of other malignant neoplasm of skin] 10-29-2021 Episodic Other non-traumatic joint disorders (20 sources) Pain in right knee; Translations: [Pain in joint, lower leg] Episodic Other non-traumatic joint disorders (13 sources) Pain in left knee; Translations: [Left knee pain] 12-18-2022 Episodic Other non-traumatic joint disorders (6 sources) Pain in left shoulder; Translations: [Left shoulder pain] Onset: 4 11-05-2023 Episodic Other nutritional; endocrine; and metabolic disorders [...] Translations: [Abnormal weight gain] 04-28-2023 Episodic Other screening for suspected conditions (not mental disorders or infectious disease) (15 sources) Encounter for other screening for malignant neoplasm of breast; Translations: [Breast screening, unspecified] Onset: 4 04-01-2022 Episodic Other skin disorders (6 sources) Disorder of the skin and subcutaneous tissue, unspecified; Translations: [Unspecified disorder of skin and subcutaneous tissue] 05-20-2022 Episodic Other skin disorders (1 source) Eruption; Translations: [Rash and other nonspecific skin eruption] 07-21-2024 Episodic Other skin disorders (8 sources) Skin lesion; Translations: [Disorder of the skin and subcutaneous tissue, unspecified] 08-30-2024 Episodic Other upper respiratory disease (5 sources) Other specified disorders of nose and nasal sinuses; Translations: [Other disease of nasal cavity and sinuses] Episodic Other upper respiratory infections (20 sources) Acute maxillary sinusitis; Translations: [Acute maxillary sinusitis, unspecified] 10-29-2021 Episodic Ovarian cyst (7 sources) Cyst of ovary; Translations: [Unspecified ovarian cyst, left side] Onset: 4 02-18-2024 Episodic Residual codes; unclassified (17 sources) Family history of cancer of colon; Translations: [Family history of malignant neoplasm of digestive organs] 07-08-2022 Episodic Comment on above: PGM. father with waqas yps. She does screening every 5 years Residual codes; unclassified (15 sources) Postmenopausal state; Translations: [Asymptomatic menopausal state] 08-20-2022 Episodic Residual codes; unclassified (2 sources) Asymptomatic menopausal state; Translations: [Asymptomatic postmenopausal status (age-related) (natural)] 08-20-2022 Episodic Rheumatoid arthritis and related disease (15 sources) Inflammatory polyarthropathy; Translations: [Inflammatory polyarthropathy] Onset: [...] tract infection, site not specified] 05-20-2022 Episodic Comment on above: urine culture Viral infection (20 sources) Herpes zoster; Translations: [Zoster without complications] 10-29-2021 Episodic Past or Other Problems Problem Classification Problem Date Documented Da te Episodic/Chronic Conditions associated with dizziness or vertigo (20 sources) Vestibular nerve disorder; 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, unspecified ear] Onset: 06-15-2013 06-15-2013 Episodic Diabetes mellitus without complication (20 sources) Impaired fasting glycemia; Translations: [Impaired fasting glucose] Onset: 06-02-2007 03-21-2010 Episodic Headache; including migraine (20 sources) Headache; Translations: [Headache] Onset: 06-15-2013 06-15-2013 Episodic Malaise and fatigue (4 sources) Fatigue; [...] observation following other accident] Onset: 03-16-2024 Episodic Spondylosis; intervertebral disc disorders; other back problems (20 sources) Neck pain; Translations: [Cervicalgia] Onset: 06-15-2013 06-15-2013 Episodic Sprains and strains (20 sources) Sprain of foot; Translations: [Unspecified sprain of unspecified foot, initial encounter] Onset: 11-04-2007 03-21-2010 Episodic Unclassified (1 source) Obesity, class 2; Translations: [Obesity, class 2] Onset: 05-17-2024 Results Test Name Value Interpretation Reference Range Facility 36 10-12-2024 36 [email or web address] message sent to patient advising her of xray results. Normal [facility] Finger(s) Min 2 Viewson 09-26 Finger(s) Min 2 Views [facility] [address] [place], [place] [address] Finger(s) Min 2 Views MR#: [id number] Acct: [id number] Name: MARCELINO ARAIZA Rep #: [id number] : 1975 F 48 From: Jimenez Burks MD PCP: DUSTY LeC Status: REG CLI Study: Finger(s) Min 2 Views Date of Exam: 10/09/24 Exam# [id number] Ordering Dr: ROSEANN GEE PROCEDURE: FINGER(S) MIN 2 VIEWS 10/09/2024 REASON FOR EXAM: INDEX FINGER MASS TECHNIQUE: FINGER(S) MIN 2 VIEWS COMPARISON: No FINDINGS: Mild osteoarthritic changes, interphalangeal joints, mainly small osteophyte formation, and juxta- articular soft tissue calcification.. No acute bone or soft tissue pathology. RAD/Finger(s) Min 2 Views IMPRESSION: Mild osteoarthritic changes Reading Location: [place] [address] CC: DUSTYC Ashley Gomez; ROSEANN GEE Kitchen Supervisor: Signed [facility] 36on 10-04-2024 36 Reviewed chart. Refi ll appropriate. RX sent. Normal [facility] 36 Prescription Request : Last medication check: 05/17/24 Last physical exam: 11/10/23 Next scheduled appointment: 11/15/24 Last date of refill on this medication 02/25/24 Normal [facility] PAP IG HPV APTIMA 16/18,45on 09-01-2024 ADEQ Comment Normal . [facility] Comment on above: Order Comment: Speci men Comment: [id number] Specimen Comment: No. of containers..01 ThinPrep Vial Result Comment: Sati sfactory for evaluation. Endocervical and/or squamous metaplastic cells (endocervical component) are present. Performed By: #### L [id number] #### [facility] [address] [place], [address] COMM . Normal . [facility] Comment on above: Order Comment: Speci men Comment: [id number] Specimen Comment: No. of containers..01 ThinPrep Vial Performed By: #### L 7400.0280 #### [facility] [address] [place], [address] COMMENT Comment Normal . [facility] Comment on above: Order Comment: Speci men Comment: [id number] Specimen Comment: No. of containers..01 ThinPrep Vial Result Comment: This liquid based ThinPrep(R) pap test was screened with the use of an image guided system. Performed By: #### L 7400.0280 #### [facility] [address] [place], [address] DIAG Comment Abnormal . [facility] Comment on above: Order Comment: Speci men Comment: [id number] Specimen Comment: No. of containers..01 ThinPrep Vial Result Comment: EPIT HELIAL CELL ABNORMALITY. ATYPICAL SQUAMOUS CELLS OF UNDETERMINED SIGNIFICANCE (ASC-US). Performed By: #### L 7400.0280 #### [facility] [address] [place], [address] HPV APTIMA, HR Negative Normal Negative [facility] Comment on above: Order Comment: Speci men Comment: [id number] Specimen Comment: No. of containers..01 ThinPrep Vial Result Comment: This nucleic acid amplification test detects fourteen high- risk HPV types (16,18,31,33,35,39,45,51,52,56,58,59,66,68) without differentiation. Performed By: #### L 7400.0280 #### [facility] [address] [place], [address] HPV Kate Rfx Comment Normal . [facility] Comment on above: Order Comment: Speci men Comment: [id number] Specimen Comment: No. of containers..01 ThinPrep Vial Result Comment: Crit erbrenna not met, HPV Genotype not performed. Performed at: - [address] [id number] Glove Machine Operator: Alysa Angela MD, Phone: [phone] Performed at: = - [address] [id number] Glove Machine Operator: Alysa Angela MD, Phone: [phone] Performed By: #### L 7400.0280 #### [facility] [address] [place], [place], [address] PAPSMR Comment Normal . [facility] Comment on above: Order Comment: Speci men Comment: [id number] Specimen Comment: No. of containers..01 ThinPrep Vial Result Comment: The Pap smear is a screening test designed to aid in the detection of premalignant and malignant conditions of the uterine cervix. It is not a diagnostic procedure and should not be used as the sole means of detecting cervical cancer. Both false-positive and false-negative reports do occur. Performed By: #### L 7400.0280 #### [facility] [address] [place], [place], [address] Path.prov.IDC-9 Comment Normal . [facility] Comment on above: Order Comment: Speci men Comment: [id number] Specimen Comment: No. of containers..01 ThinPrep Vial Result Comment: R87. 610 Performed By: #### L 7400.0280 #### [facility] [address] [place], [place], [address] PERFORM Comment Normal . [facility] Comment on above: Order Comment: Speci men Comment: [id number] Specimen Comment: No. of containers..01 ThinPrep Vial Result Comment: Aishwarya Bruno, Business Development Officer (ASCP) Performed By: #### L 7400.0280 #### [facility] [address] [place], [place], [address] SIGN Comment Normal . [facility] Comment on above: Order Comment: Speci men Comment: [id number] Specimen Comment: No. of containers..01 ThinPrep Vial Result Comment: Carol Martinez MD, Pathologist Performed By: #### L 7400.0280 #### [facility] [address] [place], [place], [address] Pelvic w/ Transvaginalon Pelvic w/ Transvaginal [facility] [address] [place], [place] [address] Pelvic w/ Transvaginal MR#: [id number] Acct: [id number] Name: MARCELINO ARAIZA Rep #: [id number] : 1975 F 48 From: Jefry Mosley DO PCP: TEJINDER Le Status: REG CLI Study: Pelvic w/ Transvaginal Date of Exam: 09/01/24 Exam# [id number] Ordering Dr: Chrystal Conteh DO PROCEDURE: PELVIC W/ TRANSVAGINAL 09/01/2024 REASON FOR EXAM: PELVIC PAIN LEFT TECHNIQUE: Transabdominal pelvic ultrasound COMPARISON: Ultrasound 02/28/2024 FINDINGS: Measurements: Uterus: 7.9 x 3.4 x 4.5 with a volume of 63 0.3 mL prior. Uterus: 8.7 x 4.9 x 3.6 with a volume of 63 0.3 mL. Anteverted Endometrial Thickness: 3.5 mm Right Ovary: 3.9 x 2.9 x 2.1 with a volume of mL. Left Ovary: 3.5 x 2.0 x 2.5 with a volume of mL. Uterus: Anteverted. Unremarkable size. Endometrium: Hyperechoic appearance. 3.5 mm thickness is probably within normal limits. Right ovary: Normal blood flow. 2.1 cm complex cyst in the right ovary. No adnexal mass. Left ovary: Normal blood flow. Unremarkable left ovary. No adnexal mass. Other: Incidental note of nabothian cysts in the cervix. No pelvic free fluid. Bladder volume at time of exam 175.7 mL US/Pelvic w/ Transvaginal IMPRESSION: Complex cystic lesion measuring 2.1 cm in the right ovary. Consider follow-up ultrasound in 6-8 weeks. Uterus unremarkable as seen. Reading Location: [facility] CC: TEJINDER Gomez; Dr. Chrystal Conteh DO Kitchen Supervisor: Signed Normal [facility] Cervical or vaginal specimen microscopic examination by liquid based cytology (reportOrdered By: Denise Duff on 08-30-2024 Cytology report Cyto stain.thin prep Doc (Cvx/Vag) Comment . [facility] Comment on above: Criteria not met, HP V Genotype not performed.Performed at: - [address] [id number] Director: Alysa Angela MD, Phone: [phone] at: = - [address] [id number] Director: Alysa Angela MD, Phone: [phone] Cervical or vagninal specime n microscopic examination by cytology stain (reported asOrdered By: Denise Duff on 08-30-2024 Cytology report Cyto stain Doc (Cvx/Vag) Comment . [facility] Comment on above: The Pap smear [...] 18, 31, 33,Ordered By: Denise Duff on 08-30-2024 HPV 16+18+31+33+35+39+45+5 1+52+56+58+59+66+68 DNA Probe+sig amp Ql (Cvx) Negative Negative [facility] Comment on above: This nucleic acid am plification test detects fourteen high- risk HPV types (16,18,31,33,35,39,45,51,52,56,58,59,66,68)without differentiation. Laboratory - CytologyOrdered By: Denise Duff on 08-30-2024 Business Development Officer Cyto stain Nom (Cvx/Vag) [ID] Comment . [facility] Comment on above: Aishwarya Bruno, Cytolo gist (ASCP) Pathologist Cyto stain Nom (Cvx/Vag) [ID] Comment . [facility] Comment on above: Aviva Martinez MD, P athologist Laboratory - Miscellaneous t estsOrdered By: Denise Duff on 08-30-2024 Service comment (Unsp spec) [Interp] . . [facility] No Panel InformationOrdered By: Denise Duff on 08-30-2024 Pap Smear Specimen Adequacy Comment . [facility] Comment on above: Satisfactory for garrett luation. Endocervical and/or squamous metaplasticcells (endocervical component) are present. Pathology report final diagnosis Narrative Comment . 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 [facility] Progress Noteon 08-18-2024 Progress Note 08/18/2024 Marcelino Araiza (: 1975) is a 48 [...] stated that they are currently in the [facility]. If the patient is a minor, [...] note. TERE Chung CNP 08/18/2024 1:22 PM Normal [facility] Progress Noteon 07-21-2024 Progress Note 07/21/2024 Marcelino [...] stated that they are currently in the [facility]. If the patient is a minor, [...] note. TERE Chung CNP 07/21/2024 1:56 PM Normal [facility] Gastroenterology Visit Repor ton 07-07-2024 Gastroenterology Visit Report [facility] [address] [place] [address] OFFICE VISIT Date of Service: 07/07/24 MR#: [id number] Acct: [id number] Name: MARCELINO ARAIZA Rep #: [id number] : 1975 Provider: Matty Tam DO Age/Sex: 48/F Location: [facility] Status: Signed Intake Vital Signs 02/17/24 18:22 [...] 3 current occupational status: employed current occupation: [employer]- Patient Liason sexually active: Yes Smoking Status: [...] FH paternal grandmo (more content not included)... Normal [facility] 05-26-2024 36 This was sent to [facility] on 05/22/24. Normal [facility] 36 Prescription Request : Last medication check: 05/17/24 Last physical exam: 11/10/23 Next scheduled appointment: 11/15/24 Last date of refill on this medication 04/30/23 [facility] 36 Prescription Request : Last medication check: 05/17/24 Last physical exam: 11/10/23 Next scheduled appointment: 11/15/24 Last date of refill on this medication not found [place] [id number] 36 Rx sent. Follow up a s scheduled. [facility] 36 Prescription Request : Last medication check: 05/17/24 Last physical exam: 11/10/23 Next scheduled appointment: 11/15/24 Last date of refill on this medication 12/08/23 90 and 1 refill [facility] Office Visiton 05-17-2024 Follow-up visit [id number] Harriett Araiza sa 1975 F Date Provider Department Center 05/17/2024 91972-[place] G[place] [facility] [facility] Family History Problem Relation Age of Onset Hypertension Mother Cancer Maternal Grandmother Cancer Paternal Grandfather Heart disease Paternal Grandmother Family Status - Relation Status Age at Mother Maternal Grandmother Paternal Grandfather Paternal Grandmother Level of Service:03116 SD OFFICE/OUTPATIENT ESTABLISHED MOD MDM 30 MIN Reason for Visit and Comments: Blood Work [882892] Medication Check [7928096741] Anxiety [9] Depression [32] Hypertension [828866] GERD [477731] Obesity [5541327113] Vitamin D Deficiency [413] Health Maintenance [872] - Mammo- had done at [facility] Progress Noteon 05-17-2024 Progress Note 05/17/2024 Marcelino Araiza (: 1975) is a 48 y.o. female , Established patient, here for evaluation of the following chief complaint(s): Blood Work, Medication Check, Anxiety, Depression, Hypertension, GERD, Obesity, Vitamin D Deficiency, and Health Maintenance (Mammo- had done at [facility] ) ASSESSMENT/PLAN: 1. Vitamin D deficiency - [...] and it was recommended she see a accounts payable or receivable clerk- saw them in November. Will use Cyclobenzaprine [...] fever. Respiratory: (more content not included)... Normal [facility] Progress Note Patient verified by last name and . Normal [facility] 36on 05-15-2024 36 She is due to have h er cholesterol levels rechecked so I recommend she come to the office for her visit. Normal [facility] SCRN MAMM (CAD)W/SILVIO Foley n 05-03-2024 SCRN MAMM (CAD)W/SILVIO CHANEY [facility] Imaging Services [address] [place] [address] SCRN MAMM (CAD)W/SILVIO CHANEY MR#: [id number] Acct: [id number] Name: MARCELINO ARAIZA Rep #: [id number] : 1975 F 48 From: Shaquille mason MD PCP: TEJINDER Le Status: REG CLI Study: SCRN MAMM (CAD)W/SILVIO BILAT Date of Exam: 08/20 Exam# [id number] Ordering Dr: Ashley Gomez NP SURVEY DIRECTOR-C PROCEDURE: SCRN MAMM (CAD)W/SILVIO BILAT REASON FOR [...] of the results by letter. Reading Location: [id number] CC: TEJINDER Gomez Kitchen Supervisor: Signed Normal [facility] L/S Spine Min 4 Views03-30 L/S Spine Min 4 Views [facility] [address] [place] [address] L/S Spine Min 4 Views MR#: [id number] Acct: [id number] Name: MARCELINO ARAIZA Rep #: [id number] : 1975 F 48 From: Sina Sanchez PCP: TEJINDER Le Status: DEP AMB Study: L/S Spine Min 4 Views Date of Exam: 04/21/24 Exam# [id number] Ordering Dr: Dina Ramos [id number] INDICATION: pain -- please do upright AP, [...] 16:32 EST Reading Location ID and State: [facility] / [place] , Service support , CC: TEJINDER Gomez; JEANETH Pino Kitchen Supervisor: Signed Normal [facility] Orthopedic Visit Reporton Orthopedic Visit Report [facility] [address] [place] [address] OFFICE VISIT Date of Service: 04/21/24 MR#: [id number] Acct: [id number] Name: MARCELINO ARAIZA Rep #: [id number] : 1975 Provider: JEANETH Pino Age/Sex: 48/F Location: [facility] Status: Signed Intake Vital Signs 02/17/24 18:22 [...] 10 mg PO TID PRN abdominal pain 03/08/23 01/24/25 History bupropion HCl 300 mg 24 hr [...] 3 current occupational status: employed current occupation: [employer]- Patient Liason sexually active: Yes Smoking [...] Details: This docu (more content not included)... [facility] 04-17-2024 36 Sent via [employer]. [place] [address] Doesn't look like linda has an active order in place. Can we place an order for her? Thanks! [facility] 36on 04-12-2024 36 Can we check with he r pharmacy please? Thank you. Normal [facility] 36 Should have refills available for all of these prescriptions. [facility] 36 Prescription Request : Last medication check: 06/18/23 Last physical exam: 11/10/23 Next scheduled appointment: 05/17/24 Last date of refill on this medication Wellbutrin 12/27/23, Prozac 20mg and 40mg 02/25/24, Meloxicam 02/28/24 [facility] Gastroenterology Visit Repor ton 04-05-2024 Gastroenterology Visit Report [facility] [address] [place] [address] OFFICE VISIT Date of Service: 04/05/24 MR#: [id number] Acct: [id number] Name: MARCELINO ARAIZA Rep #: [id number] : 1975 Provider: Matty Tam DO Age/Sex: 48/F Location: [facility] Status: Signed Intake Vital Signs 07/14/23 [...] #600 mL 04/05/24 04/05/24 Rx suspension (Carafate) [facility] Medical History (Updated 04/05/24 @ 10:51 [...] 3 current occupational status: employed current occupation: [employer]- Patient Liason sexually active: Yes Smoking Status: [...] up. FH paternal (more content not included)... [facility] 03-09-2024 36 Prescription Request : Last medication check: 06/18/23 Last physical exam: 11/10/23 Next scheduled appointment: 05/17/24 Last date of refill on this medication 03/30/23 18g 2 refills [facility] 36on 02-28-2024 36 Reviewed chart. Refi ll appropriate. RX sent. [facility] 36 Prescription Request : Last medication check: 04/28/2023 Last physical exam: 11/10/2023 Next scheduled appointment: 05/17/2024 Last date of refill on this medication: 08/13/2023 [facility] Pelvic w/ Transvaginalon Pelvic w/ Transvaginal [facility] Services [address] [place] [address] Pelvic w/ Transvaginal MR#: [id number] Acct: [id number] Name: MARCELINO ARAIZA Rep #: [id number] : 1975 F 48 From: Shaquille mason MD PCP: TEJINDER Le Status: REG CLI Study: Pelvic w/ Transvaginal Date of Exam: 02/28/24 Exam# [id number] Ordering Dr: Chrystal Conteh DO [id number] STUDY: ULTRASOUND OF THE FEMALE PELVIS - [...] Signed: Shaquille Menendez MD at 14:54 EST , CC: TEJINDER Gomez; Dr. Chrystal Conteh DO Kitchen Supervisor: Signed Normal [facility] Urinalysis, Completeon 02-27 BACTERIA Normal None Seen [facility] Comment on above: Order Comment: COLLE CTOR TO SPECIFY Result Comment: CROS SED OVER BY REGISTRATION, NO SPECIMEN COLLECTED. CATIE FROM OFFICE LAB IS GONNA HAVE OFFICE PUT THE ORDERS BACK IN. Performed By: #### L 400.0001 #### [facility] [address] [place], [address] BILIRUBIN URINE Normal Negative [facility] Comment on above: Order Comment: COLLE CTOR TO SPECIFY Result Comment: CROS SED OVER BY REGISTRATION, NO SPECIMEN COLLECTED. CATIE FROM OFFICE LAB IS GONNA HAVE OFFICE PUT THE ORDERS BACK IN. Performed By: #### L 400.0001 #### [facility] [address] [place], [address] Clarity (U) Normal Clear [facility] Comment on above: Order Comment: COLLE CTOR TO SPECIFY Result Comment: CROS SED OVER BY REGISTRATION, NO SPECIMEN COLLECTED. CATIE FROM OFFICE LAB IS GONNA HAVE OFFICE PUT THE ORDERS BACK IN. Performed By: #### L 400.0001 #### [facility] [address] [place], [address] Color (U) Normal Yellow [facility] Comment on above: Order Comment: COLLE CTOR TO SPECIFY Result Comment: CROS SED OVER BY REGISTRATION, NO SPECIMEN COLLECTED. CATIE FROM OFFICE LAB IS GONNA HAVE OFFICE PUT THE ORDERS BACK IN. Performed By: #### L 400.0001 #### [facility] [address] [place], [address] EPI,SQUAMOUS Normal 5-10 [facility] Comment on above: Order Comment: COLLE CTOR TO SPECIFY Result Comment: CROS SED OVER BY REGISTRATION, NO SPECIMEN COLLECTED. CATIE FROM OFFICE LAB IS GONNA HAVE OFFICE PUT THE ORDERS BACK IN. Performed By: #### L 400.0001 #### [facility] [address] [place], [address] GLUCOSE, UR Normal Normal [facility] Comment on above: Order Comment: COLLE CTOR TO SPECIFY Result Comment: CROS SED OVER BY REGISTRATION, NO SPECIMEN COLLECTED. CATIE FROM OFFICE LAB IS GONNA HAVE OFFICE PUT THE ORDERS BACK IN. Performed By: #### L 400.0001 #### [facility] [address] [place], [address] KETONE UR Normal Negative [facility] Comment on above: Order Comment: COLLE CTOR TO SPECIFY Result Comment: CROS SED OVER BY REGISTRATION, NO SPECIMEN COLLECTED. CATIE FROM OFFICE LAB IS GONNA HAVE OFFICE PUT THE ORDERS BACK IN. Performed By: #### L 400.0001 #### [facility] [address] [place], [address] LEUK ESTERASE Normal Negative [facility] Comment on above: Order Comment: COLLE CTOR TO SPECIFY Result Comment: CROS SED OVER BY REGISTRATION, NO SPECIMEN COLLECTED. CATIE FROM OFFICE LAB IS GONNA HAVE OFFICE PUT THE ORDERS BACK IN. Performed By: #### L 400.0001 #### [facility] [address] [place], [address] Mucus Ql (Urine sed) Normal [facility] Comment on above: Order Comment: COLLE CTOR TO SPECIFY Result Comment: CROS SED OVER BY REGISTRATION, NO SPECIMEN COLLECTED. CATIE FROM OFFICE LAB IS GONNA HAVE OFFICE PUT THE ORDERS BACK IN. Performed By: #### L 400.0001 #### [facility] [address] [place], [address] Nitrite Ql (U) Normal Negative [facility] Comment on above: Order Comment: COLLE CTOR TO SPECIFY Result Comment: CROS SED OVER BY REGISTRATION, NO SPECIMEN COLLECTED. CATIE FROM OFFICE LAB IS GONNA HAVE OFFICE PUT THE ORDERS BACK IN. Performed By: #### L 400.0001 #### [facility] [address] [place], [address] OCCULT BLOOD-UR Normal Negative [facility] Comment on above: Order Comment: COLLE CTOR TO SPECIFY Result Comment: CROS SED OVER BY REGISTRATION, NO SPECIMEN COLLECTED. CATIE FROM OFFICE LAB IS GONNA HAVE OFFICE PUT THE ORDERS BACK IN. Performed By: #### L 400.0001 #### [facility] [address] [place], [address] pH UR Normal 5.0 - 8.0 [facility] Comment on above: Order Comment: COLLE CTOR TO SPECIFY Result Comment: CROS SED OVER BY REGISTRATION, NO SPECIMEN COLLECTED. CATIE FROM OFFICE LAB IS GONNA HAVE OFFICE PUT THE ORDERS BACK IN. Performed By: #### L 400.0001 #### [facility] [address] [place], [address] PROT DIPSTX Normal Negative [facility] Comment on above: Order Comment: COLLE CTOR TO SPECIFY Result Comment: CROS SED OVER BY REGISTRATION, NO SPECIMEN COLLECTED. CATIE FROM OFFICE LAB IS GONNA HAVE OFFICE PUT THE ORDERS BACK IN. Performed By: #### L 400.0001 #### [facility] [address] [place], [address] RBC Normal 0-5 [facility] Comment on above: Order Comment: COLLE CTOR TO SPECIFY Result Comment: CROS SED OVER BY REGISTRATION, NO SPECIMEN COLLECTED. CATIE FROM OFFICE LAB IS GONNA HAVE OFFICE PUT THE ORDERS BACK IN. Performed By: #### L 400.0001 #### [facility] [address] [place], [address] SP.GR. DIPSTX Normal 1.002-1.03 0 [facility] Comment on above: Order Comment: COLLE CTOR TO SPECIFY Result Comment: CROS SED OVER BY REGISTRATION, NO SPECIMEN COLLECTED. CATIE FROM OFFICE LAB IS GONNA HAVE OFFICE PUT THE ORDERS BACK IN. Performed By: #### L 400.0001 #### [facility] [address] [place], [address] UR Preservative Normal [facility] Comment on above: Order Comment: COLLE CTOR TO SPECIFY Result Comment: CROS SED OVER BY REGISTRATION, NO SPECIMEN COLLECTED. CATIE FROM OFFICE LAB IS GONNA HAVE OFFICE PUT THE ORDERS BACK IN. Performed By: #### L 400.0001 #### [facility] [address] [place], [address] UROBILI Normal Normal [facility] Comment on above: Order Comment: COLLE CTOR TO SPECIFY Result Comment: CROS SED OVER BY REGISTRATION, NO SPECIMEN COLLECTED. CATIE FROM OFFICE LAB IS GONNA HAVE OFFICE PUT THE ORDERS BACK IN. Performed By: #### L 400.0001 #### [facility] [address] [place], [address] WBC Normal 0-5 [facility] Comment on above: Order Comment: COLLE CTOR TO SPECIFY Result Comment: CROS SED OVER BY REGISTRATION, NO SPECIMEN COLLECTED. CATIE FROM OFFICE LAB IS GONNA HAVE OFFICE PUT THE ORDERS BACK IN. Performed By: #### L 400.0001 #### [facility] [address] [place], [address] Progress Noteon 02-25-2024 Progress Note 02/25/2024 Marcelino [...] stated that they are currently in the [facility]. If the patient is a minor, [...] 05/17/2024) for Next scheduled follow-up. SUBJECTIVE/OBJECTIVE: JUSTO Elroy Cochran presents today for a video virtual visit for follow up on her fatigue. Madison this may be related to her Prozac [...] this note. Ashley Gomez APRN - ROSALIA 02/25/2024 10:00 AM Normal [facility] 36on 02-17-2024 36 Patient called and w dina like a response NOLVIA, states she is having LUQ pain, nausea, back pain, dizziness. Took zofran but she isn't sure if it helped or not. I let her know I will send this to Dr. Hurt for review since Ashley is out and Lucina is still seeing patients. She asked if she needs a CT of the abdomen? Normal [facility] Abdomen/Pelvis W IV Cont ONL Yon 02-17-2024 Abdomen/Pelvis W IV Cont ONLY [facility] Imaging Services [address] [place] [id number] Abdomen/Pelvis W IV Cont ONLY MR#: [id number] Acct: [id number] Name: MARCELINO ARAIZA Rep #: [id number] : 1975 F 48 From: Yung Sanchez PCP: Ashley Gomez NP-C Status: REG ER Study: Abdomen/Pelvis W IV Cont ONLY Date of Exam: Exam# [id number] Ordering Dr: Deuce Hernadez DO [id number] INDICATION: fall, ecchymosis to abd anterior. Additional [...] follow-up and reporting. Radiology, 293(2), [phone]. [email or web address] Electronically Signed: Yung Penaloza MD at 21:17 EST , CC: TEJINDER Gomez; Dr. Deuce Hernadez, Kitchen Supervisor: Signed Normal [facility] CBC W/Diff, Automatedon 11-2 Absolute Lymph 2.17 X10 3/uL Normal 0.83-4.51 [facility] Comment on above: Performed By: #### L 501.2450, L500.4050, L100.0100 ####[facility] [address] [place], [address] Absolute Neut 3.8 X10 3/uL Normal 2.0-7.7 [facility] Comment on above: Performed By: #### L 501.2450, L500.4050, L100.0100 ####[facility] [address] [place], [address] Basophils/100 WBC (Bld) 1.0 % Normal 0-1 [facility] Comment on above: Performed By: #### L 501.2450, L500.4050, L100.0100 ####[facility] [address] [place], [address] Eosinophils/100 WBC (Bld) 1.3 % Normal 0-5 [facility] Comment on above: Performed By: #### L 501.2450, L500.4050, L100.0100 ####[facility] [address] [place], [address] Erythrocyte distribution width (RBC) [Ratio] 11.9 % Normal 11.6-14.6 [facility] Comment on above: Performed By: #### L 501.2450, L500.4050, L100.0100 ####[facility] [address] [place], [address] Hematocrit (Bld) [Volume fraction] 40.1 % Normal 37-47 [facility] Comment on above: Performed By: #### L 501.2450, L500.4050, L100.0100 ####[facility] [address] [place], [address] Hemoglobin (Bld) [Mass/Vol] 13.9 g/dL Normal 12.0-15.0 [facility] Comment on above: Performed By: #### L 501.2450, L500.4050, L100.0100 ####[facility] [address] [place], [address] IG% 0.100 Normal 0.0-0.9 [facility] Comment on above: Result Comment: IG% - Immature Granulocytes (promyelocytes, myelocytes and metamyelocytes) > 1% indicates that a LEFT SHIFT is Present. Performed By: #### L 501.2450, L500.4050, L100.0100 ####[facility] [address] [place], [address] Lymphocytes/100 WBC (Bld) 32.3 % Normal 19-41 [facility] Comment on above: Performed By: #### L 501.2450, L500.4050, L100.0100 ####[facility] [address] [place], [address] MCH (RBC) [Entitic mass] 31.4 pg Normal 27.0-32.0 [facility] Comment on above: Performed By: #### L 501.2450, L500.4050, L100.0100 ####[facility] [address] [place], [address] MCHC (RBC) [Mass/Vol] 34.7 g/dL Normal 32-36 [facility] Comment on above: Performed By: #### L 501.2450, L500.4050, L100.0100 ####[facility] [address] [place], [address] MCV (RBC) [Entitic vol] 90.7 fL Normal 81-99 [facility] Comment on above: Performed By: #### L 501.2450, L500.4050, L100.0100 ####[facility] [address] [place], [address] Monocytes/100 WBC (Bld) 8.6 % Normal 0-10 [facility] Comment on above: Performed By: #### L 501.2450, L500.4050, L100.0100 ####[facility] [address] [place], [address] Neutrophils/100 WBC (Bld) 56.7 % Normal 47-70 [facility] Comment on above: Performed By: #### L 501.2450, L500.4050, L100.0100 ####[facility] [address] [place], [address] Nucleated RBC (Bld) [#/Vol] 0 10*3/uL Normal 0-5 [facility] Comment on above: Performed By: #### L 501.2450, L500.4050, L100.0100 ####[facility] [address] [place], [address] Platelet mean volume (Bld) [Entitic vol] 9.7 fL Normal 6.2-12.0 [facility] Comment on above: Performed By: #### L 501.2450, L500.4050, L100.0100 ####[facility] [address] [place], [address] Platelets (Bld) [#/Vol] 290 10*3/uL Normal 150-450 [facility] Comment on above: Performed By: #### L 501.2450, L500.4050, L100.0100 ####[facility] [address] [place], [address] RBC (Bld) [#/Vol] 4.42 10*6/uL Normal 4.2-5.4 [facility] Comment on above: Performed By: #### L 501.2450, L500.4050, L100.0100 ####[facility] [address] [place], [address] RDW SD 39.7 fl Normal 35.1-43.9 [facility] Comment on above: Performed By: #### L 501.2450, L500.4050, L100.0100 ####[facility] [address] [place], [address] WBC (Bld) [#/Vol] 6.7 10*3/uL Normal 4.4-11.0 [facility] Comment on above: Performed By: #### L 501.2450, L500.4050, L100.0100 ####[facility] [address] [place], [address] Chest without Contraston Chest without Contrast [facility] Imaging Services [address] [place] [address] Chest without Contrast MR#: [id number] Acct: [id number] Name: MARCELINO ARAIZA Rep #: [id number] : 1975 F 48 From: Yung Sanchez PCP: TEJINDER Le Status: REG ER Study: Chest without Contrast Date of Exam: 02/17/24 Exam# [id number] Ordering Dr: Deuce Hernadez DO [id number] INDICATION: fall rib pain right EXAMINATION: CT [...] CC: TEJINDER Gomez; Dr. Deuce Hernadez DO Kitchen Supervisor: Signed Normal [facility] Comprehensive Metabolic Prof [facility] 02-17-2024 Albumin [Mass/Vol] 3.8 g/dL Normal 3.2-5.0 [facility] Comment on above: Performed By: #### L 501.2450, L500.4050, L100.0100 ####[facility] [address] [place], [address] Albumin/Globulin [Mass ratio] 1.1 {ratio} Normal 0.9-2.4 [facility] Comment on above: Performed By: #### L 501.2450, L500.4050, L100.0100 ####[facility] [address] [place], [address] ALK P 78 U/L Normal 45-117 [facility] Comment on above: Performed By: #### L 501.2450, L500.4050, L100.0100 ####[facility] [address] [place], [address] ALT [Catalytic activity/Vol] 23 U/L Normal 13-56 [facility] Comment on above: Performed By: #### L 501.2450, L500.4050, L100.0100 ####[facility] [address] [place], [address] AST [Catalytic activity/Vol] 17 U/L Normal 15-37 [facility] Comment on above: Performed By: #### L 501.2450, L500.4050, L100.0100 ####[facility] [address] [place], [address] Bilirubin [Mass/Vol] 0.30 mg/dL Normal 0.20-1.00 [facility] Comment on above: Result Comment: For patients on eltrombopag therapy, use of Dimension [place] TBIL is not recommended. Performed By: #### L 501.2450, L500.4050, L100.0100 ####[facility] [address] [place], [address] BUN/CRE 23.3 RATIO High 10-20 [facility] Comment on above: Performed By: #### L 501.2450, L500.4050, L100.0100 ####[facility] [address] [place], [address] CA,Total 9.3 mg/dL Normal 8.5-10.1 [facility] Comment on above: Performed By: #### L 501.2450, L500.4050, L100.0100 ####[facility] [address] [place], [address] Chloride [Moles/Vol] 102 mmol/L Normal 98-107 [facility] Comment on above: Performed By: #### L 501.2450, L500.4050, L100.0100 ####[facility] [address] [place], [address] CO2 [Moles/Vol] 27.0 mmol/L Normal 21.0-32.0 [facility] Comment on above: Performed By: #### L 501.2450, L500.4050, L100.0100 ####[facility] [address] [place], [address] Creatinine [Mass/Vol] 0.77 mg/dL Normal 0.55-1.02 [facility] Comment on above: Result Comment: The validity of the calculated GFR GFRAA in patients over 70 years has not been determined. Clinical correlation is essential. Performed By: #### L 501.2450, L500.4050, L100.0100 ####[facility] [address] [place], [address] ECRCL 118.65 ml/min Normal [facility] Comment on above: Performed By: #### L 501.2450, L500.4050, L100.0100 ####[facility] [address] [place], [address] EST GFR - AA 103 mL/min Normal >60 [facility] Comment on above: Result Comment: Afri can Dutch GFR Calc Performed By: #### L 501.2450, L500.4050, L100.0100 ####[facility] [address] [place], [address] GAP 6 Normal 5-15 [facility] Comment on above: Performed By: #### L 501.2450, L500.4050, L100.0100 ####[facility] [address] [place], [address] GFR/1.73 sq M.predicted among non-blacks MDRD (S/P/Bld) [Vol rate/Area] 85 mL/min/{1.73_m2} Normal >60 [facility] Comment on above: Result Comment: Non- GFR Calc Performed By: #### L 501.2450, L500.4050, L100.0100 ####[facility] [address] [place], [address] Globulin (S) [Mass/Vol] 3.6 g/dL Normal 2.2-4.2 [facility] Comment on above: Performed By: #### L 501.2450, L500.4050, L100.0100 ####[facility] [address] [place], [address] Glucose [Mass/Vol] 85 mg/dL Normal 74-106 [facility] Comment on above: Performed By: #### L 501.2450, L500.4050, L100.0100 ####[facility] [address] [place], [address] Potassium [Moles/Vol] 3.8 mmol/L Normal 3.5-5.1 [facility] Comment on above: Performed By: #### L 501.2450, L500.4050, L100.0100 ####[facility] [address] [place], [address] Sodium [Moles/Vol] 135 mmol/L Low 136-145 [facility] Comment on above: Performed By: #### L 501.2450, L500.4050, L100.0100 ####[facility] [address] [place], [address] T PROT 7.4 g/dL Normal 6.4-8.2 [facility] Comment on above: Performed By: #### L 501.2450, L500.4050, L100.0100 ####[facility] [address] [place], [address] Urea nitrogen [Mass/Vol] 18 mg/dL Normal 7-18 [facility] Comment on above: Performed By: #### L 501.2450, L500.4050, L100.0100 ####[facility] [address] [place], [address] Emergency Department Summary on 02-17-2024 Emergency Department Summary [facility] Medical Records Department [address] [place] [address] Emergency Department Summary 02/17/24 MR#: [id number] Acct: [id number] Name: MARCELINO ARAIZA Rep #: [id number] : 1975 48 From: Deuce Hernadez DO PCP: TEJINDER eL Status:REG ER Location: ED HPI HPI - [...] abdomen. Patient denies any blood thinning medications. [facility] Medical History Left shoulder pain Osteoarthritis of [...] cholecystectomy So (more content not included)... Normal [facility] Lipaseon 02-17-2024 Lipase [Catalytic activity/Vol] 38 U/L Normal 13-75 [facility] Comment on above: Result Comment: Edmund alvarez note: LIPASE revised reference range effective 22. New Lipase methodology. Expected to produce lower values than the previous assay method. NEW Reference Range: 13 - 75 U/L Performed By: #### L 501.2450, L500.4050, L100.0100 ####[facility] [address] [place], [place], [address] Urinalysis, Completeon 02-16 BACTERIA 1+ /hpf Normal None Seen [facility] Comment on above: Order Comment: CLEAN CATCH Performed By: #### L 400.0001 ####[facility] [address] [place], [address] EPI,SQUAMOUS 0-5 SEEN Normal 5-10 [facility] Comment on above: Order Comment: CLEAN CATCH Performed By: #### L 400.0001 ####[facility] [address] [place], [address] Mucus Ql (Urine sed) 1+ /hpf Normal [facility] Comment on above: Order Comment: CLEAN CATCH Performed By: #### L 400.0001 ####[facility] [address] [place], [address] RBC 0-5 SEEN Normal 0-5 [facility] Comment on above: Order Comment: CLEAN CATCH Performed By: #### L 400.0001 ####[facility] [address] [place], [address] WBC 0-5 SEEN Normal 0-5 [facility] Comment on above: Order Comment: CLEAN CATCH Performed By: #### L 400.0001 ####[facility] [address] [place], [address] Brain/Head without Contrasto n 02-13-2024 Brain/Head without Contrast [facility] Imaging Services [address] [place] [address] Brain/Head without Contrast MR#: [id number] Acct: [id number] Name: MARCELINO ARAIZA Rep #: [id number] : 1975 F 48 From: Sadie Sanchez PCP: TEJINDER Le Status: REG ER Study: Brain/Head without Contrast Date of Exam: 01/27 10/19 Exam# [id number] Ordering Dr: Chapincito De La Rosa DO [id number] INDICATION: head injury EXAMINATION: CT BRAIN - [...] Signed: Sadie Leroy MD at 23:42 EST , CC: TEJINDER Gomez; Chapincito De La Rosa DO Kitchen Supervisor: Signed Normal [facility] Emergency Department Summary on 02-13-2024 Emergency Department Summary [facility] Medical Records Department [address] [place] [address] Emergency Department Summary 02/13/24 MR#: [id number] Acct: [id number] Name: MARCELINO ARAIZA Rep #: [id number] : 1975 48 From: Chapincito De La [...] trauma/injury and therefore comes in for evaluation [facility] Medical History (Updated 02/16/24 @ 04:[address] Chapincito De La Rosa, ) Left shoulder pain Osteoarthritis of right knee [...] 3 current occupational status: employed current occupation: [employer]- Patient Liason sexually active: Yes Smoking Status: Never s (more content not included)... [facility] Progress Noteon 02-09-2024 Progress Note Patient verified by last name and . [facility] Progress Note 02/09/2024 Marcelino Araiza (: 1975) [...] stated that they are currently in the [facility]. If the patient is a minor, [...] note. TERE Chung CNP 02/09/2024 1:05 PM [facility] 36on 2023 36 Rx sent. Follow up a s scheduled. [facility] 36 Prescription Request : Last medication check: 04/28/2023 Last physical exam: 11/10/2023 Next scheduled appointment: 05/17/2024 Last date of refill on this medication: 07/12/2023 [facility] CCP ANTIBODY IGGOrdered By: Zulma Russo on 12-23-2023 Cyclic citrullinated peptide IgG Qn NINF [facility] Cyclic citrullinated peptide IgG QnOrdered By: Zulma Russo on 12-23-2023 CCP Antibody IgG Qualitative Negative Negative [facility] Interpretation and review of laboratory results Normal [facility] This test is used as aid in diagnosis of Rheumatoid arthritis (RA). A negative result cannot rule out RA where clinically suspected. Clinical correlation is required. The following results were obtained with an [employer] QUANT[employer] Lite CCP IgG SWETHA. Cyclic Citrullinated Peptide IgG values obtained with different manufacturers' assay methods may not be used interchangeably. The magnitude of the reported IgG levels cannot be correlated to an endpoint titer. [facility] C-REACTIVE PROTEINon 024 CRP [Mass/Vol] mg/dL NINF - 0.9 mg/dL [facility] CNOVon 12-22-2023 CNOV Office Visit (RHEUMN ) MARCELINO ARAIZA ([id number]) 1975 F Date Time Provider Department 12/22/23 [...] reports she used to work in a [employer] for 5 years in the past and [...] disorder in conditions classified elsewhere Atypical nevi Carina Hemicrania left headache, cervical origin? Herpes zoster [...] 5 mg (more content not included)... Normal [facility] CRP SerPl-mCncon 12-22-2023 CRP [Mass/Vol] mg/L Normal <0.9 [facility] Comment on above: Order Comment: Speci men Type: BLOOD SPECIMEN Ordering Facility: [facility] Address: [address] [place] [address] Performed By: #### 1 1575, 1987-07, 50114-5 #### [facility] CLIA [id number] [address] [place] [address] OF [facility] Comprehensive metabolic 2000 panelon 12-22-2023 Albumin [Mass/Vol] 4.4 g/dL 3.9 - 4.9 g/dL [facility] ALP [Catalytic activity/Vol] 94 U/L 34 - 123 U/L [facility] ALT [Catalytic activity/Vol] 15 U/L 7 - 38 U/L [facility] Anion gap [Moles/Vol] 12 mmol/L 8 - 15 mmol/L [facility] AST [Catalytic activity/Vol] 18 U/L 13 - 35 U/L [facility] Bilirubin [Mass/Vol] 0.5 mg/dL 0.2 - 1 .3 mg/dL [facility] Calcium [Mass/Vol] 9.3 mg/dL 8.5 - 10. 2 mg/dL [facility] Chloride [Moles/Vol] 101 mmol/L 98 - 10 7 mmol/L [facility] CO2 [Moles/Vol] 25 mmol/L 22 - 30 mmol/L [facility] Creatinine [Mass/Vol] 0.74 mg/dL 0.58 - 0.96 mg/dL [facility] GFR/1.73 sq M.predicted among non-blacks MDRD (S/P/Bld) [Vol rate/Area] 101 mL/min/{1.73_m2} - PINF [facility] Comment on above: Estimated Glomerular Filtration [...] [Mass/Vol] 95 mg/dL 74 - 99 mg/dL [facility] Comment on above: The [place] Diabete s Association (ADA) provides guidance for [...] Standards of Medical Care in Diabetes 2016, [place] Diabetes Association. Diabetes Care. 2016.39(Suppl 1). Potassium [Moles/Vol] 4.6 mmol/L 3.7 - 5.1 mmol/L [facility] Protein [Mass/Vol] 7.2 g/dL 6.3 - 8.0 g/dL [facility] Sodium [Moles/Vol] 138 mmol/L 136 - 144 mmol/L [facility] Urea nitrogen [Mass/Vol] 12 mg/dL 7 - 21 mg/dL [facility] Albumin [Mass/Vol] 4.4 g/dL Normal 3.9-4.9 [facility] Comment on above: Order Comment: Speci men Type: BLOOD SPECIMEN Ordering Facility: [facility] Address: [address] [place] [address] Performed By: #### 1 1571-07, 1987-07, 50211-7 #### [facility] CLIA [id number] [address] [place] [address] [place] ALP [Catalytic activity/Vol] 94 U/L Normal 34-123 [facility] Comment on above: Order Comment: Speci men Type: BLOOD SPECIMEN Ordering Facility: [facility] Address: [address] [place], [place] [address] Performed By: #### 1 1571-07, 1987-07, #### [facility] CLIA [id number] [address] [place], [place] [id number] [place] ALT [Catalytic activity/Vol] 15 U/L Normal 7-38 [facility] Comment on above: Order Comment: Speci men Type: BLOOD SPECIMEN Ordering Facility: [facility] Address: [address] [place], [place] [address] Performed By: #### 1 1571-07, 1987-07, #### [facility] CLIA [id number] [address] [place] [address] [place] Anion gap [Moles/Vol] 12 mmol/L Normal 8-15 [facility] Comment on above: Order Comment: Speci men Type: BLOOD SPECIMEN Ordering Facility: [facility] Address: [address] [place], [place] [address] Performed By: #### 1 1571-07, 1987-07, #### [facility] CLIA [id number] [address] [place] [address] [place] AST [Catalytic activity/Vol] 18 U/L Normal 13-35 [facility] Comment on above: Order Comment: Speci men Type: BLOOD SPECIMEN Ordering Facility: [facility] Address: [address] [place], [place] [address] Performed By: #### 1 1571-07, 1987-07, #### [facility] CLIA [id number] [address] [place], [place] [address] [place] Bilirubin [Mass/Vol] 0.5 mg/dL Normal 0.2-1.3 [facility] Comment on above: Order Comment: Speci men Type: BLOOD SPECIMEN Ordering Facility: [facility] Address: [address] [place], [place] [address] Performed By: #### 1 1571-07, 1987-07, #### [facility] CLIA [id number] [address] [place] [address] [place] Calcium [Mass/Vol] 9.3 mg/dL Normal 8.5-10.2 [facility] Comment on above: Order Comment: Speci men Type: BLOOD SPECIMEN Ordering Facility: [facility] Address: [address] [place] [address] Performed By: #### 1 1571-07, 1987-07, #### [facility] CLIA [id number] [address] [place] [address] [place] Chloride [Moles/Vol] 101 mmol/L Normal 98-107 [facility] Comment on above: Order Comment: Speci men Type: BLOOD SPECIMEN Ordering Facility: [facility] Address: [address] [place] [address] Performed By: #### 1 1571-07, #### [facility] CLIA [id number] [address] [place] [address] [place] CO2 [Moles/Vol] 25 mmol/L Normal 22-30 [facility] Comment on above: Order Comment: Speci men Type: BLOOD SPECIMEN Ordering Facility: [facility] Address: [address] [place], [place] [address] Performed By: #### 1 1571-07, 1987-07, #### [facility] CLIA [id number] [address] [place] [address] [place] Creatinine [Mass/Vol] 0.74 mg/dL Normal 0.58-0.96 [facility] Comment on above: Order Comment: Speci men Type: BLOOD SPECIMEN Ordering Facility: [facility] Address: [address] [place], [place] [address] Performed By: #### 1 1571-07, #### [facility] CLIA [id number] [address] [place] [address] [place] Creatinine and Glomerular filtration rate.predicted panel (S/P/Bld) 101 mL/min/1.73m??? Normal >=60 [facility] Comment on above: Order Comment: Corina pratt Type: BLOOD SPECIMEN Ordering Facility: [facility] Address: [address] [place] [address] Result Comment: Dora mated Glomerular Filtration Rate [...] actual GFR. Performed By: #### 1 1571-07, #### [facility] CLIA [id number] [address] [place] [address] [place] Glucose [Mass/Vol] 95 mg/dL Normal 74-99 [facility] Comment on above: Order Comment: Corina pratt Type: BLOOD SPECIMEN Ordering Facility: [facility] Address: [address] [place] [address] Result Comment: The [place] Diabetes Association (ADA) provides guidance for cutoff [...] Standards of Medical Care in Diabetes 2016, [place] Diabetes Association. Diabetes Care. 2016.39(Suppl 1). Performed By: #### 1 1571-07, #### [facility] CLIA [id number] [address] [place] [address] [place] Potassium [Moles/Vol] 4.6 mmol/L Normal 3.7-5.1 [facility] Comment on above: Order Comment: Speci men Type: BLOOD SPECIMEN Ordering Facility: [facility] Address: [address] [place] [address] Performed By: #### 1 1571-07, 1987-07, #### [facility] CLIA [id number] [address] [place], [place] [phone] [place] Protein [Mass/Vol] 7.2 g/dL Normal 6.3-8.0 [facility] Comment on above: Order Comment: Speci men Type: BLOOD SPECIMEN Ordering Facility: [facility] Address: [address] [place] [address] Performed By: #### 1 1571-07, #### [facility] CLIA [id number] [address] [place], [place] [phone] [place] Sodium [Moles/Vol] 138 mmol/L Normal 136-144 [facility] Comment on above: Order Comment: Speci men Type: BLOOD SPECIMEN Ordering Facility: [facility] Address: [address] [place] [address] Performed By: #### 1 1571-07, #### [facility] CLIA [id number] [address] [place], [place] [phone] [place] Urea nitrogen [Mass/Vol] 12 mg/dL Normal 7-21 [facility] Comment on above: Order Comment: Speci men Type: BLOOD SPECIMEN Ordering Facility: [facility] Address: [address] [place] [address] Performed By: #### 1 1571-07, #### [facility] CLIA [id number] [address] [place], [place] [phone] [place] Cyclic citrullinated peptide IgG Qnon 12-22-2023 CCP ANTIBODY IGG QUALITATIVE Negative Normal Negative [facility] Comment on above: Order Comment: Speci men Type: BLOOD SPECIMEN Ordering Facility: [facility] Address: [address] [place] [address] Performed By: #### 1 5, 1987-07, #### [facility] CLIA [id number] [address] [place] [address] [place] No Panel Informationon 12-21 Interpretation and review of laboratory results Normal [facility] RHEUMATOID FACTORon 12-22-19 24 Rheumatoid factor Qn NINF [facility] Rheumatoid fact SerPl-aCncon 12-22-2023 Rheumatoid factor Qn [IU]/mL Normal <16 [facility] Comment on above: Order Comment: Speci men Type: BLOOD SPECIMEN Ordering Facility: [facility] Address: [address] [place] [address] Performed By: #### 1 5, 1987-07, #### [facility] CLIA [id number] [address] [place] [address] [place] cCP IgG SerPl-aCncon 024 Cyclic citrullinated peptide IgG Qn <15 Normal <20 [facility] Comment on above: Order Comment: Speci men Type: BLOOD SPECIMEN Ordering Facility: [facility] Address: [address] [place] [address] Performed By: #### 1 5, 1987-07, #### [facility] CLIA [id number] [address] [place] [address] [place] 3612-10-2023 36 Already refilled on 12/08/23. Normal [facility] 36 Sent 12/08/23 to LISY Bermudez [facility] 36on 12-08-2023 36 Rx sent. Follow up a s scheduled. [facility] 36 Prescription Request : Last medication check: 04/28/23 Last physical exam: 11/10/23 Next scheduled appointment: 05/17/24 Last date of refill on this medication 05/24/23 Normal [facility] No Panel Informationon 11-09 No obstruction. Norm al study. Report Dictated on Electronically Signed By: Byron Curtis MD Electronically Signed Date/Time: 11/10/2023 4:24 PM EDT [facility] Patient Name: MARCELINO ARAIZA : 1975 [...] partial obstruction, over twenty minutes definite obstruction). [facility] Byron Curtis MD - 11/10/2023 Patient Name: MARCELINO ARAIZA : 1975 Exam [...] Electronically Signed Date/Time: 11/10/2023 4:24 PM EDT [facility] Study observation (narrative) [employer] Panel InformationOrdered By: Byron Curtis on 11-10-2023 [employer] Work Phone: Office Visiton 11-10-2023 Follow-up visit [id number] Harriett Araiza 1975 F Date Provider Department Center 11/10/2023 [id number]-VRZMDASHLEY [facility] Family History Problem Relation Age of Onset Hypertension Mother Cancer Maternal Grandmother Cancer Paternal Grandfather Heart disease Paternal Grandmother Family Status - Relation Status Age at Mother Maternal Grandmother Paternal Grandfather Paternal Grandmother Level of Service:36339 [place] PERIODIC PREVENTIVE MED EST PATIENT 40-64YRS Reason for Visit and Comments: Annual Exam [83] Blood Work [596006] Health Maintenance [872] - PNA vaccine-discuss with Ashley 4th COVID vaccine-only had 3, doesn't want a 4th Normal [facility] Progress Noteon 11-10-2023 Progress Note Patient was verified by name and . After obtaining consent, and per orders of Ashley Gomez CNP, injection of PCV20 given in left deltoid by Loida Bautista. Patient instructed to report any adverse reaction immediately. Normal [facility] Progress Note [facility] [address] [facility] [address] Dept: [phone] Dept Loc: [phone] HPI: Marcelino Araiza is a 47 y.o. female who presents today for her medical conditions/complaints as noted below. Marcelino Araiza is c/o of Annual Exam, Blood Work, and Health Maintenance (PNA vaccine-discuss with Ashley/4th COVID vaccine-only had 3, doesn't want a 4th) DOMINIC Cochran presents today for her annual physical and [...] and it was recommended she see a accounts payable or receivable clerk. Is scheduled to see someone through the [facility] in December. Obesity: Denies regular exercise [...] flank pain- has a scan scheduled in [place] today. Was told she might need a [...] mg) by mouth daily. 90 tablet 1 gckvqphjvtmc-movn-tnnbabqn- folic acid (Centrum) chewable tablet Chew 1 [...] Allergies Allergen (more content not included)... Normal [facility] 36on 11-08-2023 36 Not due for refill u ntil January. Normal [facility] 36 Prescription Request : Last medication check: 09/15/2023 Last physical exam: 10/30/2022 Next scheduled appointment: 11/10/2023 Last date of refill on this medication: 08/13/2023 [facility] Orthopedic Visit Reporton Orthopedic Visit Report [facility] [address] [place] [address] OFFICE VISIT Date of Service: 11/05/23 MR#: [id number] Acct: [id number] Name: MARCELINO ARAIZA Rep #: [id number] : 1975 Provider: Dr. Julio C gonzalez MD Age/Sex: 47/F Location: [facility].EMI Status: Signed with Addenda ADDENDUM by Sharron [...] Provider: Julio C Goyal MD Performing Location: [facility] Administered by: Julio C Goyal MD on 11/05/23 09:58 Dose Route Admin Location Dispensed Lot Number Expiration Date [facility] Man ufacturer 80 mg intra-articular left shoulder 2 mL [id number] 06/27/25 8577-4819-98 [facility] Comments: bupivacaine 0.25% 4cc lot : [id number] exp : 05/27/24 [facility] : 3240-7132-49 Date cc: * Signed Intake Vital Signs [...] Social History (more content not included)... Normal [facility] Shoulder min 2 Viewson 11-04 Shoulder min [address] [facility] [address] [place] [address] Shoulder min 2 Views MR#: [id number] Acct: [id number] Name: MARCELINO ARAIZA Rep #: [id number] : 1975 F 47 From: Zackery Harper MD PCP: TEJINDER eL Status: DEP AMB Study: Shoulder min 2 Views Date of Exam: 11/05/23 Exam# [id number] Ordering Dr: Julio C Goyal MD [id number] STUDY: X-RAY - LEFT SHOULDER REASON FOR [...] Signed: Zackery Harper MD at 16:04 EDT Reading Location ID and State: [facility] / [place] , Service support , CC: TEJINDER Gomez; Dr. Julio C Goyal MD Kitchen Supervisor: Signed [facility] 36on 10-27-2023 36 Thank you Christa, I will cancel the US. Lauren Normal [facility] 36 She just had a ct sc an. She no longer needs an ultrasound Normal [facility] 36 Order placed. Normal [facility] [address] order u nder imaging I can then can then call to schedule lasix renal scan Zarina Valverde [facility] Progress Noteon 10-20-2023 Progress Note Christa Wogn, TERE 10/20/2023 at 2:35 PM Urology Office Visit [facility] [address] [facility] [address] Dept: [phone] Dept Loc: [phone] The patient, Ms. Araiza is a 47 [...] stated that they are currently in the [facility]. If the patient is a minor, [...] REFERRING PROVIDER: Cachorro Vides DO PCP: Naga Hurt MD TODAY'S DATE: 10/20/2023 CHIEF COMPLAINT: Chief Complaint Patient presents with Nephrolithiasis Visit type: Established patient Assessment and Plan: Diagnosis Plan 1. Left flank pain [facility] 2. Hematuria, unspecified type [facility] Addressed Flank pain: ? Stone passage given significant flank pain 10/17 UA- 0 RBC/HPF 10/14- UA 3-5 RBC/HPF Has had significant relief of pain since ER visit. Still with slight soreness. Recommend continuing fluids Complete Lasix scan as ordered previously. Doing significantly better today compared to prior visit. Follow Up: Christa Wong APRN [facility] HPI: Ms. Araiza is a 47 [...] Daily meloxicam (MOBIC) 15 mg, Oral, Daily gheywpsubmyt-epwa-gomvcscn- folic acid (Centrum) chewable tablet 1 tablet, Oral, Daily ondansetron (Z (more content not included)... Normal [facility] [id number] 10-18-2023 [id number] This patient is havi ng increasing pain, Christa L. ordered renal scan and US on Wednesday. Please schedule. Thank you Normal [facility] CBC W Auto Differential pane l (Bld)on 10-18-2023 Basophils (Bld) [#/Vol] 0.1 10*3/uL 0.0 - 0.2 10*3/uL [facility] Basophils/100 WBC (Bld) 1.1 % 0.0 - 2.0 % [facility] Eosinophils (Bld) [#/Vol] 0.1 10*3/uL 0.0 - 0.5 10*3/uL [facility] Eosinophils/100 WBC (Bld) 1.9 % 0.0 - 6.0 % [facility] Erythrocyte distribution width (RBC) [Ratio] 12.1 % 11.5 - 15.0 % [facility] Hematocrit (Bld) [Volume fraction] 42.1 % 35.0 - 47.0 % [facility] Hemoglobin (Bld) [Mass/Vol] 14.5 g/dL 11.7 - 16.0 g/dL [facility] Immature granulocytes (Bld) [#/Vol] 0.0 10*3/uL NINF - 0.1 10*3/uL [facility] Immature granulocytes/100 WBC (Bld) 0.3 % 0.0 - 2.0 % [facility] Interpretation and review of laboratory results Normal [facility] Lymphocytes (Bld) [#/Vol] 1.4 10*3/uL 1.0 - 4.3 10*3/uL [facility] Lymphocytes/100 WBC (Bld) 22.0 % 15.0 - 45.0 % [facility] MCH (RBC) [Entitic mass] 31.0 pg 26.0 - 34.0 pg [facility] MCHC (RBC) [Mass/Vol] 34.4 % 30.5 - 36.0 % [facility] MCV (RBC) [Entitic vol] 90.0 fL 77.0 - 99.0 fL [facility] Monocytes (Bld) [#/Vol] 0.5 10*3/uL 0.0 - 0.9 10*3/uL [facility] Monocytes/100 WBC (Bld) 7.6 % 5.0 - 13.0 % [facility] Neutrophils (Bld) [#/Vol] 4.3 10*3/uL 1.8 - 7.5 10*3/uL [facility] Neutrophils/100 WBC (Bld) 67.1 % 38.0 - 82.0 % [facility] Nucleated RBC/100 WBC (Bld) [Ratio] 0.0 % [facility] Platelet mean volume (Bld) [Entitic vol] 9.6 fL 9.0 - 12.7 fL [facility] Comment on above: MPV is a calculated measurement using platelet volume ratio Platelets (Bld) [#/Vol] 271 10*3/uL 140 - 440 10*3/uL [facility] RBC (Bld) [#/Vol] 4.68 10*6/uL 3.80 - 5.20 10*6/uL [facility] WBC (Bld) [#/Vol] 6.5 10*3/uL 3.6 - 10.7 10*3/uL [facility] CBC WITH AUTO DIFFERENTIALon 10-18-2023 Basophils (Bld) [#/Vol] 0.1 10*3/uL Normal 0.0-0.2 [facility] Comment on above: Performed By: #### L [id number] ####Pizza Baker: TABITHA PONCE ([id number])[facility] MITCH PicBadgesTMAN (RLAB)[address] [place] [address] Basophils/100 WBC (Bld) 1.1 % Normal 0.0-2.0 [facility] Comment on above: Performed By: #### L [id number] ####Pizza Baker: TABITHA PONCE ([id number])[facility] RITTMAN (SWRLAB)[address] [place] [address] Eosinophils (Bld) [#/Vol] 0.1 10*3/uL Normal 0.0-0.5 [facility] Comment on above: Performed By: #### L [id number] ####Pizza Baker: TABITHA PONCE ([id number])[facility]ER RITTMAN (SWRLAB)[address] [place] [address] Eosinophils/100 WBC (Bld) 1.9 % Normal 0.0-6.0 [facility] Comment on above: Performed By: #### L [id number] ####Pizza Baker: TABITHA PONCE ([id number])[facility] RITTMAN (SWRLAB)[address] [place] [address] Erythrocyte distribution width (RBC) [Ratio] 12.1 % Normal 11.5-15.0 [facility] Comment on above: Performed By: #### L [id number] ####Pizza Baker: TABITHA PONCE ([id number])[facility] RIT[place]AN (SWRLAB)[address] [place] [address] Hematocrit (Bld) [Volume fraction] 42.1 % Normal 35.0-47.0 [facility] Comment on above: Performed By: #### L [id number] ####Pizza Baker: TABITHA PONCE ([id number])[facility] R[place] (SWRLAB)[address] [place] [address] Hemoglobin (Bld) [Mass/Vol] 14.5 g/dL Normal 11.7-16.0 [facility] Comment on above: Performed By: #### L [id number] ####Pizza Baker: TABITHA PONCE ([id number])[facility] RITTMAN (SWRLAB)[address] [place] [address] [place] IMMATURE GRANS % 0.3 % Normal 0.0-2.0 [facility] Comment on above: Performed By: #### L [id number] ####Pizza Baker: TABITHA PONCE ([id number])[facility] RIT[employer] (SWRLAB)[address] [place] [address] IMMATURE GRANS ABSOLUTE 0.0 10*3/uL Normal <0.1 [facility] Comment on above: Performed By: #### L [id number] ####Pizza Baker: TABITHA PONCE ([id number])[facility] RITTMAN (SWRLAB)[address] [place] [address] Lymphocytes (Bld) [#/Vol] 1.4 10*3/uL Normal 1.0-4.3 [facility] Comment on above: Performed By: #### L [id number] ####Pizza Baker: TABITHA PONCE ([id number])[facility] RIT[employer] (SWRLAB)[address] [place] [address] Lymphocytes/100 WBC (Bld) 22.0 % Normal 15.0-45.0 [facility] Comment on above: Performed By: #### L [id number] ####Pizza Baker: TABITHA PONCE ([id number])[facility] RIT[facility] (SWRLAB)[address] [place] [address] MCH (RBC) [Entitic mass] 31.0 pg Normal 26.0-34.0 [facility] Comment on above: Performed By: #### L [id number] ####Pizza Baker: TABITHA PONCE ([id number])[facility] (SWRLAB)[address] [place] [address] MCHC 34.4 % Normal 30.5-36.0 [facility] Comment on above: Performed By: #### L [id number] ####Pizza Baker: TABITHA PONCE ([id number])[facility] RITTMAN (SWRLAB)[address] [place] [address] MCV (RBC) [Entitic vol] 90.0 fL Normal 77.0-99.0 [facility] Comment on above: Performed By: #### L [id number] ####Pizza Baker: TABITHA PONCE ([id number])[facility] RITTMAN (SWRLAB)[address] [place] [address] [place] Monocytes (Bld) [#/Vol] 0.5 10*3/uL Normal 0.0-0.9 [facility] Comment on above: Performed By: #### L [id number] ####Pizza Baker: TABITHA PONCE ([id number])[facility] RITTMAN (SWRLAB)[address] [place] [address] [place] Monocytes/100 WBC (Bld) 7.6 % Normal 5.0-13.0 [facility] Comment on above: Performed By: #### L [id number] ####Pizza Baker: TABITHA PONCE ([id number])[facility] RITTMAN (SWRLAB)[address] [place] [address] [place] NEUTROPHILS ABSOLUTE 4.3 10*3/uL Normal 1.8-7.5 [facility] Comment on above: Performed By: #### L [id number] ####Pizza Baker: TABITHA PONCE ([id number])[facility] R[place] (SWRLAB)[address] [place] [address] [place] Neutrophils/100 WBC (Bld) 67.1 % Normal 38.0-82.0 [facility] Comment on above: Performed By: #### L [id number] ####Pizza Baker: TABITHA PONCE ([id number])[facility] (SWRLAB)[address] [place] [address] [place] NRBC 0.0 /100 WBCs Normal 0.0-2.0 [facility] Comment on above: Performed By: #### L [id number] ####Pizza Baker: TABITHA PONCE ([id number])[facility] R[facility] (SWRLAB)[address] [place] [address] [place] Platelet mean volume (Bld) [Entitic vol] 9.6 fL Normal 9.0-12.7 [facility] Comment on above: Result Comment: MPV is a calculated measurement using platelet volume ratio Performed By: #### L [id number] ####Pizza Baker: TABITHA PONCE ([id number])[facility] R[facility] (SWRLAB)[address] [place] [address] [place] Platelets (Bld) [#/Vol] 271 10*3/uL Normal 140-440 [facility] Comment on above: Performed By: #### L [id number] ####Pizza Baker: TABITHA PONCE ([id number])[facility] R[facility]AN (SWRLAB)[address] [place] [address] [place] RBC (Bld) [#/Vol] 4.68 10*6/uL Normal 3.80-5.20 [facility] Comment on above: Performed By: #### L [id number] ####Pizza Baker: TABITHA PONCE ([id number])[facility] (SWRLAB)[address] [place] [address] WBC (Bld) [#/Vol] 6.5 10*3/uL Normal 3.6-10.7 [facility] Comment on above: Performed By: #### L [id number] ####Pizza Baker: TABITHA PONCE ([id number])[facility] (SWRLAB)[address] [place] [address] COMPLETE URINALYSISon 2023 BACTERIA (#/HPF) IN URINE Few Abnormal Negative [facility] Comment on above: Performed By: #### L [id number] #### Pizza Baker: TABITHA PONCE ([id number]) [facility] RIT[facility]AN (SWRLAB) [address] [place] [address] BILIRUBIN, TOTAL PRESENCE IN URINE Negative Normal Negative [facility] Comment on above: Performed By: #### L [id number] #### Pizza Baker: TABITHA PONCE ([id number]) [facility] (SWRLAB) [address] [place] [address] Clarity (U) Clear Normal Clear [facility] Comment on above: Performed By: #### L [id number] #### Pizza Baker: TABITHA PONCE ([id number]) [facility] RITTMAN (SWRLAB) [address] [place] [address] [place] Color (U) Colorless Normal Lt. Yellow [facility] Comment on above: Performed By: #### L [id number] #### Pizza Baker: TABITHA PONCE ([id number]) [facility] RITTMAN (SWRLAB) [address] [place] [address] [place] GLUCOSE (MG/DL) IN URINE Normal Normal Normal (<70) [facility] Comment on above: Performed By: #### L [id number] #### Pizza Baker: TABITHA PONCE ([id number]) [facility] RIT[facility]AN (SWRLAB) [address] [place] [address] HEMOGLOBIN PRESENCE IN URINE 0.03 mg/dL Abnormal Negative [facility] Comment on above: Performed By: #### L [id number] #### Pizza Baker: TABITHA PONCE ([id number]) [facility] RIT[facility]AN (SWRLAB) [address] [place] [address] [place] Ketones Ql (U) Negative Normal Negative [facility] Comment on above: Performed By: #### L [id number] #### Pizza Baker: TABITHA PONCE ([id number]) [facility] HERRERAMITCH RITTMAN (SWRLAB) [address] [place] [address] [place] LEUKOCYTE ESTERASE PRESENCE IN URINE BY TEST STRIP Negative Normal Negative [facility] Comment on above: Performed By: #### L [id number] #### Pizza Baker: TABITHA PONCE ([id number]) [facility] HERRERAMITCH RITTMAN (SWRLAB) [address] [place] [address] [place] NITRITE PRESENCE IN URINE Negative Normal Negative [facility] Comment on above: Performed By: #### L [id number] #### Pizza Baker: TABITHA PONCE ([id number]) [facility] RITTMAN (SWRLAB) [address] [place] [address] [place] pH (U) 5.5 [pH] Normal 5.0-8.0 [facility] Comment on above: Performed By: #### L [id number] #### Pizza Baker: TABITHA PONCE ([id number]) [facility] RIT[facility]AN (SWRLAB) [address] [place] [address] Protein (U) [Mass/Vol] Negative Normal Negative [facility] Comment on above: Performed By: #### L [id number] #### Pizza Baker: TABITHA PONCE ([id number]) [facility] R[facility]AN (SWRLAB) [address] [place] [address] [place] RBC (#/HPF) IN URINE SEDIMENT Negative Normal 0-2 [facility] Comment on above: Performed By: #### L [id number] #### Pizza Baker: TABITHA PONCE ([id number]) [facility] HERRERAMITCH RITTMAN (SWRLAB) [address] [place] [address] Specific gravity (U) [Rel density] 1.008 Normal 1.005-1.03 0 [facility] Comment on above: Performed By: #### L [id number] #### Pizza Baker: TABITHA PONCE ([id number]) [facility] (SWRLAB) [address] [place] [address] [place] SQUAMOUS EPITHELIAL CELLS (#/HPF) IN URINE SEDIMENT 0-2 Normal 3-5 [facility] Comment on above: Performed By: #### L [id number] #### Pizza Baker: TABITHA PONCE ([id number]) [facility] (SWRLAB) [address] [place] [address] [place] UROBILINOGEN (MG/DL) IN URINE Normal Normal Normal (0-1) [facility] Comment on above: Performed By: #### L [id number] #### Pizza Baker: TABITHA PONCE ([id number]) [facility] R[facility]AN (SWRLAB) [address] [place] [address] [place] VOLUME OF URINE 8-12 mL Normal [facility] Comment on above: Performed By: #### L [id number] #### Pizza Baker: TABITHA PONCE ([id number]) [facility] RITTMAN (SWRLAB) [address] WBC (LEUKOCYTE) (#/HPF) IN URINE SEDIMENT Negative Normal 0-5 [facility] Comment on above: Performed By: #### L [id number] #### Pizza Baker: TABITHA PONCE ([id number]) [facility] R[facility]AN (SWRLAB) [address] [place] [address] COMPREHENSIVE METABOLIC PANE [place] 10-18-2023 Albumin [Mass/Vol] 4.4 g/dL Normal 3.5-5.0 [facility] Comment on above: Performed By: #### L AB143, LAB17 ####Pizza Baker: TABITHA PONCE ([id number])[facility] RITTMAN (SWRLAB)[address] [place] [address] [place] ALP [Catalytic activity/Vol] 77 U/L Normal 38-126 [facility] Comment on above: Performed By: #### L AB143, LAB17 ####Pizza Baker: TABITHA PONCE ([id number])[facility] RITTMAN (SWRLAB)[address] [place] [address] ALT [Catalytic activity/Vol] 17 U/L Normal 0-34 [facility] Comment on above: Performed By: #### L AB143, LAB17 ####Pizza Baker: TABITHA PONCE ([id number])[facility] RIT[employer]AN (SWRLAB)[address] [place] [address] [place] Anion gap [Moles/Vol] 8 mmol/L Normal 3-13 [facility] Comment on above: Performed By: #### L AB143, LAB17 ####Pizza Baker: TABITHA PONCE ([id number])[facility] RIT[employer]AN (SWRLAB)[address] [place] [address] [place] AST [Catalytic activity/Vol] 24 U/L Normal 15-46 [facility] Comment on above: Performed By: #### Rita LAU, LAB17 ####Pizza Baker: TABITHA PONCE ([id number])[facility] HERRERAMITCH RITTMAN (SWRLAB)[address] [place] [address] [place] Bilirubin [Mass/Vol] 0.5 mg/dL Normal 0.2-1.3 [facility] Comment on above: Performed By: #### Rita LAU, LAB17 ####Pizza Baker: TABITHA PONCE ([id number])[facility] (SWRLAB)[address] [place] [address] [place] Calcium [Mass/Vol] 9.2 mg/dL Normal 8.4-10.4 [facility] Comment on above: Performed By: #### Rita LAU, LAB17 ####Pizza Baker: TABITHA PONCE ([id number])[facility] (SWRLAB)[address] [place] [address] [place] Chloride [Moles/Vol] 103 mmol/L Normal 98-107 [facility] Comment on above: Performed By: #### Rita LAU, LAB17 ####Pizza Baker: TABITHA PONCE ([id number])[facility] (SWRLAB)[address] [place] [address] [place] CO2 [Moles/Vol] 25 mmol/L Normal 22-30 [facility] Comment on above: Performed By: #### Rita LAU, LAB17 ####Pizza Baker: TABITHA PONCE ([id number])[facility] (SWRLAB)[address] [place] [address] [place] Creatinine [Mass/Vol] 0.77 mg/dL Normal 0.52-1.04 [facility] Comment on above: Performed By: #### L JUDI, LAB17 ####Pizza Baker: TABITHA PONCE ([id number])[facility] RITTMAN (SWRLAB)[address] GLOMERULAR FILTRATION RATE ML/MIN/1.73 SQ M.PREDICTED >90.0 Normal >60.0 [facility] Comment on above: Result Comment: Calc ulation based on the Chronic Kidney Disease Epidemiology Collaboration (CKD-EPI) equation refit without adjustment for race Performed By: #### L JUDI, LAB17 ####Pizza Baker: TABITHA PONCE ([id number])[facility] R[employer]AN (SWRLAB)[address] [place] [address] [place] Glucose [Mass/Vol] 94 mg/dL Normal 70-100 [facility] Comment on above: Performed By: #### L JUDI, LAB17 ####Pizza Baker: TABITHA PONCE ([id number])[facility] HERRERAMITCH RITTMAN (SWRLAB)[address] [place] [address] [place] Potassium [Moles/Vol] 3.7 mmol/L Normal 3.5-5.1 [facility] Comment on above: Performed By: #### Rita LAU, LAB17 ####Pizza Baker: TABITHA PONCE ([id number])[facility] RITTMAN (SWRLAB)195 [place] [address] [place] Protein [Mass/Vol] 7.5 g/dL Normal 6.3-8.2 [facility] Comment on above: Performed By: #### Rita LAU, LAB17 ####Pizza Baker: TABITHA PONCE ([phone])[facility] CENTERKinsey HERRERAMITCH RITTMAN (SWRLAB)[address] [place] [address] [place] Sodium [Moles/Vol] 136 mmol/L Normal 135-145 [facility] Comment on above: Performed By: #### L JUDI, LAB17 ####Pizza Baker: TABITHA PONCE ([phone])[facility] CENT[facility]insey HERRERAMITCH RITTMAN (SWRLAB)[address] [place] [address] [place] Urea nitrogen [Mass/Vol] 12 mg/dL Normal 7-17 [facility] Comment on above: Performed By: #### Rita LAU, LAB17 ####Pizza Baker: TABITHA PONCE ([phone])[facility] CENTERA MITCH RITTMAN (SWRLAB)[address] ABDOMEN PELVIS WO IV CONT Brunilda 10-18-2023 CT ABDOMEN PELVIS WO IV CONTRAST Patient Name: MARCELINO ARAIZA : 1975 [facility]#: [id number] Exam Date/Time: 10/18/2023 14:40 Procedure: CT ABDOMEN [...] repors that she has a history of "kidney problems" and seen by urology last month with a stent in left ureter placed for a short period of time but was unable to tolerate. Pt denies any fevers. Reports having some nausea and general sense of unwell. NEG HCG Normal [facility] CT Abdomen WO contraston 1. No acute abdomino pelvic process identified. 2. No evidence of hydronephrosis or nephrolithiasis. Report Dictated on Electronically Signed By: Jamie Waldrop MD Electronically Signed Date/Time: 10/18/2023 3:19 PM EDT [facility] Patient Name: MARCELINO ARIAZA : 1975 Exam Date/Time: 10/18/2023 14:40 Procedure: [...] changes of the lumbar spine are observed. [facility] EMERGENCY [facility]PARTMENT RADIOLOGY SYSTEM Jamie Waldrop MD - 10/18/2023 Patient Name: MARCELINO ARAIZA : 1975 Exam [...] Electronically Signed Date/Time: 10/18/2023 3:19 PM EDT [facility] Radiology Study observation (narrative) [facility] CT Abdomen WO contrastOrdere d By: Jamie Waldrop on 10-18-2023 [facility] Work Phone: Comprehensive metabolic 1998 panelon 10-18-2023 Albumin [Mass/Vol] 4.4 g/dL 3.5 - 5.0 g/dL [facility] ALP [Catalytic activity/Vol] 77 U/L 38 - 126 U/L [facility] ALT [Catalytic activity/Vol] 17 U/L 0 - 34 U/L [facility] Anion gap [Moles/Vol] 8 mmol/L 3 - 13 mmol/L [facility] AST [Catalytic activity/Vol] 24 U/L 15 - 46 U/L [facility] Bilirubin [Mass/Vol] 0.5 mg/dL 0.2 - 1 .3 mg/dL [facility] Calcium [Mass/Vol] 9.2 mg/dL 8.4 - 10. 4 mg/dL [facility] Chloride [Moles/Vol] 103 mmol/L 98 - 10 7 mmol/L [facility] CO2 [Moles/Vol] 25 mmol/L 22 - 30 mmol/L [facility] Creatinine [Mass/Vol] 0.77 mg/dL 0.52 - 1.04 mg/dL [facility] GFR/1.73 sq M.predicted MDRD (S/P/Bld) [Vol rate/Area] - PINF [facility] Comment on above: Calculation based on the Chronic Kidney Disease Epidemiology Collaboration (CKD-EPI) equation refit without adjustment for race Glucose [Mass/Vol] 94 mg/dL 70 - 100 mg/dL [facility] Interpretation and review of laboratory results Normal [facility] Potassium [Moles/Vol] 3.7 mmol/L 3.5 - 5.1 mmol/L [facility] Protein [Mass/Vol] 7.5 g/dL 6.3 - 8.2 g/dL [facility] Sodium [Moles/Vol] 136 mmol/L 135 - 145 mmol/L [facility] Urea nitrogen [Mass/Vol] 12 mg/dL 7 - 17 mg/dL [facility] ED Nursing Noteon 10-18-2023 ED Nursing Note Pt to room 4 with c/ o left flank pain since Wednesday. Pt describes pain as constant pain that waxes and wanes in intensity with no modifying factors. Pt states pain wraps around into front abdominal area. Pt denies any known hematuria, dysuria. Pt repors that she has a history of "kidney problems" and seen by urology last month with a stent in left ureter placed for a short period of time but was unable to tolerate. Pt denies any fevers. Reports having some nausea and general sense of unwell. Normal [facility] ED Provider Noteon ED Provider Note EMERGENCY [...] Systems Pertinent positives and negatives as per HPI PAST MEDICAL HISTORY Past Medical History: Diagnosis [...] Historical Med cholecalciferol (Vitamin D-3) 50 MCG (2000 UT) [...] mg) by mouth daily., Starting Wed08/13/2023, Normal ruxlvubonitt-aaev-vrcafrlc- folic acid (Centrum) chewable tablet Chew 1 [...] Physical Activity: Insufficiently Active (10/10/2020) Received from [facility], [facility] Exercise Vital Sign Days of Exercise per Week: 2 days Minutes of Exercise per Session: 30 min Stress: Stress Concern Present (10/10/2020) (more content not included)... Normal [facility] HCG QUANTITATIVE BLOODon HCG QUANTITATIVE <2 Normal Females <=5 [facility] Comment on above: Result Comment: APPLE Mitchell [...] disease. Performed By: #### L AB143, LAB17 ####Pizza Baker: TABITHA PONCE ([phone])[facility] (SWRLAB)[address] [place] [address] Laboratory - Chemistry and C hemistry - challengeon 10-18-2023 HCG.beta subunit Qn Females <=5 mIU/mL [facility] No Panel Informationon 10-17 Values in should double [...] or monitor tumors or gestational trophoblastic disease. [facility] Urinalysis complete panel (U )Ordered By: Misael Miramontes on 10-18-2023 Bacteria LM.HPF (Urine sed) [#/Area] Few Abnormal Negative /HPF [facility] Bilirubin Ql (U) Negative Negative mg/dL [facility] Clarity (U) Clear Clear [facility] Color (U) Colorless Lt. Yellow [facility] Epithelial cells.squamous LM.HPF (Urine sed) [#/Area] 0-2 [facility] Glucose Ql (U) Normal Normal (<70) mg/dL [facility] Hemoglobin Ql (U) 0.03 mg/dL Abnormal Negative [facility] Interpretation and review of laboratory results Abnormal [facility] Ketones (U) [Mass/Vol] Negative Negat aurelia mg/dL [facility] Leukocyte esterase Test strip Ql (U) Negative Negative Eve/uL [facility] Nitrite Ql (U) Negative Negative [facility] pH (U) 5.5 [pH] 5.0 - 8.0 pH [facility] Protein (U) [Mass/Vol] Negative Negat aurelia mg/dL [facility] RBC LM.HPF (Urine sed) [#/Area] Negative [facility] Specific gravity (U) [Rel density] 1.008 1.005 - 1.030 [facility] Urobilinogen (U) [Mass/Vol] Normal Normal (0-1) mg/dL [facility] Volume, Urine 8-12 mL [facility] WBC LM.HPF (Urine sed) [#/Area] Negative [facility] Urinalysis complete panel (U )Ordered By: Jermaine Smallwood on 10-15-2023 Bacteria LM.HPF (Urine sed) [#/Area] Few Abnormal Negative /HPF [facility] Bilirubin Ql (U) Negative Negative mg/dL [facility] Clarity (U) Clear Clear [facility] Color (U) Light Yellow Lt. Yellow [facility] Epithelial cells.squamous LM.HPF (Urine sed) [#/Area] 3-5 [facility] Glucose Ql (U) Normal Normal (<70) mg/dL [facility] Hemoglobin Ql (U) 0.03 mg/dL Abnormal Negative [facility] Interpretation and review of laboratory results Abnormal [facility] Ketones (U) [Mass/Vol] Negative Negat aurelia mg/dL [facility] Leukocyte esterase Test strip Ql (U) Negative Negative Eve/uL [facility] Mucus LM.HPF (Urine sed) [#/Area] Moderate Abnormal Negative /LPF [facility] Nitrite Ql (U) Negative Negative [facility] pH (U) 6.5 [pH] 5.0 - 8.0 pH [facility] Protein (U) [Mass/Vol] Negative Negat aurelia mg/dL [facility] RBC LM.HPF (Urine sed) [#/Area] 3-5 Abnormal [facility] Specific gravity (U) [Rel density] 1.022 1.005 - 1.030 [facility] Urobilinogen (U) [Mass/Vol] Normal Normal (0-1) mg/dL [facility] WBC LM.HPF (Urine sed) [#/Area] 0-2 [facility] Cervical or vaginal specimen microscopic examination by liquid based cytology (reportOrdered By: Denise Duff on 07-14-2023 Cytology report Cyto stain.thin prep Doc (Cvx/Vag) Comment . [facility] Comment on above: Criteria not met, HP V Genotype not performed.Performed at: - [address] [id number] Director: Alysa Angela MD, Phone: [phone] at: [facility] Cyto [address] [place], [place] [id number] Director: Gerald Rios MD, Phone: [phone] at: =[facility] [address] [id number] Director: Alysa Angela MD, Phone: [phone] Cervical or vagninal specime n microscopic examination by cytology stain (reported asOrdered By: Denise Duff on 07-14-2023 Cytology report Cyto stain Doc (Cvx/Vag) Comment . [facility] Comment on above: The Pap smear [...] Cx Nom (U) Culture exhibits no growth. [facility] Detection in cervical specim en of any of human papilloma virus (HPV) 16, 18, 31, 33,Ordered By: Denise Duff on 07-14-2023 HPV 16+18+31+33+35+39+45+5 1+52+56+58+59+66+68 DNA Probe+sig amp Ql (Cvx) Negative Negative [facility] Comment on above: This nucleic acid am plification test detects fourteen high- risk HPV types (16,18,31,33,35,39,45,51,52,56,58,59,66,68)without differentiation. Laboratory - Chemistry and C hemistry - challengeon 07-14-2023 Bilirubin Ql (U) Negative [facility] Glucose Ql (U) Negative [facility] Ketones Ql (U) Negative [facility] pH (U) 5.0 [pH] [facility] Specific gravity (U) [Rel density] 1.030 [facility] Urobilinogen (U) [Mass/Vol] Negative [facility] Laboratory - CytologyOrdered By: Denise Duff on 07-14-2023 Business Development Officer Cyto stain Nom (Cvx/Vag) [ID] Comment . [facility] Comment on above: Kerry Farias, Cytotec hnologist (ASCP) Pathologist Cyto stain Nom (Cvx/Vag) [ID] Comment . [facility] Comment on above: Rich Gutiérrez MD, Pa thologist Recommended follow-up Cyto stain Nom (Cvx/Vag) Comment . [facility] Comment on above: Suggest follow up as clinically appropriate. Laboratory - Hematology and Cell countson 07-14-2023 Hemoglobin Ql (U) Small [facility] Laboratory - Miscellaneous t estsOrdered By: Denise Duff on 07-14-2023 Service comment (Unsp spec) [Interp] . . [facility] Laboratory - Specimen inform ationon 07-14-2023 Clarity (U) Cloudy [facility] Color (U) HAMLET [facility] Laboratory - Urinalysison Nitrite Ql (U) Negative [facility] Protein Ql (U) Negative [facility] No Panel InformationOrdered By: Denise Duff on 07-14-2023 Pathology report final diagnosis Narrative Comment . [facility] Comment on above: R87.610 No Panel Informationon 07-13 Urine Leukocytes Positive [facility] Urine Non-Hemolyzed Blood [facility] Thin prep Papanicolaou smear with manual screeningOrdered By: Denise Duff on 07-14-2023 Thin prep Papanicolaou smear with manual screening Comment . [facility] Comment on above: EPITHELIAL CELL ABNO RMALITY.ATYPICAL SQUAMOUS CELLS OF UNDETERMINED SIGNIFICANCE (ASC-US). This liquid based Th inPrep(R) pap test was screened withthe use of an image guided system. CT UROGRAM WO/W IVCONon 06-27 CT UROGRAM WO/W IVCON * * *Final Report* * * DATE OF EXAM: Jul 09 2023 2:21PM [facility] 0560 - CT UROGRAM WO/W IVCON / [...] gross obstructive uropathy, or suspicious renal lesion. Kitchen Supervisor[facility] Transcribe Date/Time: Jul 13 2023 8:16A Dictated by : RACHEL BLEVINS MD This examination was interpreted and the report reviewed and electronically signed by: RACHEL BLEVINS MD on Jul 13 2023 8:26AM EST [id number] Normal [facility] CNOVon 07-08-2023 CNOV Office Visit (UROLMN ) MARCELINO ARAIZA ([id number]) 1975 F Date Time Provider Department 07/08/23 9:00 AM MARIA ELENA CARVAJAL During your visit today, we recorded the following information about you: Pulse Blood pressure Weight Height 97/minute 134/79 108 kg 1.727 m Ileana Cherry MA 07/08/2023 8:58 AM Signed Post Void Residual done on patient with 0 cc residual volume remaining. notified. SHADIA Springer Monika, TERE.REGISTERED VETERINARY TECHNICIAN 07/08/2023 11:59 AM Signed Referring Provider: Chief [...] Negative per patient report. She presented to [facility] ED on 07/04/23 with clot hematuria, [...] identified an (more content not included)... 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 Ordering Location: Urology Received: 07/09/2023 07:50 AM Pathologist: Carmelita Menjivar MD Specimen: Urine (Nonspecific) Performed By: #### 1 1571-07, 1987-07, #### [facility] CLIA [id number] [address] [place] [address] [place] CLINICAL HISTORY gross hematuria Normal [facility] Comment on above: Order Comment: Speci men Type: BLOOD SPECIMEN Ordering Facility: [facility] Address: [address] [place] [address] Performed By: #### 1 1571-07, 1987-07, #### [facility] CLIA [id number] [address] [place] [address] [place] FINAL DIAGNOSIS Normal [facility] Comment on above: Order Comment: Speci men Type: BLOOD SPECIMEN Ordering Facility: [facility] Address: [address] [place] [address] Result Comment: A - Urine (Nonspecific), Urine Negative for high-grade urothelial carcinoma. Blood., Fungal organisms morphologically consistent with Elvira species. Performed By: #### 1 1571-07, 1987-07, #### [facility] CLIA [id number] [address] [place] [address] [place] FINAL PERFORMING LAB Normal [facility] Comment on above: Order Comment: Speci men Type: BLOOD SPECIMEN Ordering Facility: [facility] Address: [address] [place] [address] Result Comment: Tech nical component, prenatal genetic counselor screening performed at [facility], [address] [place] [address] CLIA# [id number] Diagnostic interpretation performed at [facility], [address] [place] [address] CLIA# [id number] Spinner Frame: Edson Parker M.D. Performed By: #### 1 1571-07, 1987-07, #### [facility] CLIA [id number] [address] [place] [address] [place] GROSS DESCRIPTION Normal [facility] Comment on above: Order Comment: Speci men Type: BLOOD SPECIMEN Ordering Facility: [facility] Address: [address] [place] [address] Result Comment: A. U rine (Nonspecific) 40 cc clear yellow fluid. ThinPrep prepared. Performed By: #### 1 1571-07, 1987-07, #### [facility] CLIA [id number] [address] [place] [address] [place] URINALYSIS, REFLEX MICROSCOP ICon 07-08-2023 Bilirubin Ql (U) Negative Negative [facility] Clarity (Unsp spec) Clear Clear [facility] Color (U) Yellow Yellow [facility] Epithelial cells LM.HPF (Urine sed) [#/Area] Few [facility] Glucose Test strip (U) [Mass/Vol] Negative Trace, Negative [facility] Hemoglobin Ql (U) 3+ Abnormal Negative, Trace [facility] Ketones Ql (U) Negative Negative, Trace [facility] Leukocyte esterase Test strip Ql (U) Negative Negative, 25 Eve/uL [facility] Nitrite Ql (U) Negative Negative [facility] pH (U) 6.0 [pH] 5.0 - 8.[address] [facility] Protein (U) [Mass/Vol] Negative Trace , Negative [facility] RBC LM.HPF (Urine sed) [#/Area] /[HPF] Abnormal 0-3 /HPF [facility] Specific gravity (U) [Rel density] 1.018 1.005 - 1.[address] [facility] Urobilinogen Ql (U) Normal Normal [facility] WBC LM.HPF (Urine sed) [#/Area] 0-5 /HPF 0-5 /HPF [facility] Bilirubin Ql (U) Negative Normal Negative [facility] Comment on above: Order Comment: Speci men Type: BLOOD SPECIMEN Ordering Facility: [facility] Address: [address] [place] [address] Performed By: #### 1 1571-07, 1987-07, #### [facility] CLIA [id number] [address] [place] [address] [place] Clarity (Unsp spec) Clear Normal [facility] Comment on above: Order Comment: Speci men Type: BLOOD SPECIMEN Ordering Facility: [facility] Address: [address] [place] [address] Performed By: #### 1 1571-07, 1987-07, #### [facility] CLIA [id number] [address] [place] [address] [place] Color (U) Yellow Normal Yellow [facility] Comment on above: Order Comment: Speci men Type: BLOOD SPECIMEN Ordering Facility: [facility] Address: [address] [place] [address] Performed By: #### 1 1571-07, 1987-07, #### [facility] CLIA [id number] [address] [place] [address] [place] Epithelial cells LM.HPF (Urine sed) [#/Area] Few Normal [facility] Comment on above: Order Comment: Speci men Type: BLOOD SPECIMEN Ordering Facility: [facility] Address: [address] [place] [address] Performed By: #### 1 1571-07, 1987-07, #### [facility] CLIA [id number] [address] [place] [address] [place] Glucose Test strip (U) [Mass/Vol] Negative Normal Trace, Negative [facility] Comment on above: Order Comment: Speci men Type: BLOOD SPECIMEN Ordering Facility: [facility] Address: [address] [place] [address] Performed By: #### 1 1571-07, 1987-07, #### [facility] CLIA [id number] [address] [place] [address] [place] Hemoglobin Ql (U) 3+ Abnormal Negative, Trace [facility] Comment on above: Order Comment: Speci men Type: BLOOD SPECIMEN Ordering Facility: [facility] Address: [address] [place] [address] Performed By: #### 1 1571-07, 1987-07, #### [facility] CLIA [id number] [address] [place] [address] [place] Ketones Ql (U) Negative Normal Negative, Trace [facility] Comment on above: Order Comment: Speci men Type: BLOOD SPECIMEN Ordering Facility: [facility] Address: [address] [place] [address] Performed By: #### 1 1571-07, 1987-07, #### [facility] CLIA [id number] [address] [place] [address] [place] Leukocyte esterase Test strip Ql (U) Negative Normal Negative, 25 Eve/uL [facility] Comment on above: Order Comment: Speci men Type: BLOOD SPECIMEN Ordering Facility: [facility] Address: [address] [place] [address] Performed By: #### 1 1571-07, 1987-07, #### [facility] CLIA [id number] [address] [place] [address] [place] Nitrite Ql (U) Negative Normal Negative [facility] Comment on above: Order Comment: Speci men Type: BLOOD SPECIMEN Ordering Facility: [facility] Address: [address] [place] [address] Performed By: #### 1 1571-07, 1987-07, #### [facility] CLIA [id number] [address] [place] [address] [place] pH (U) 6.0 [pH] Normal 5.0-8.0 [facility] Comment on above: Order Comment: Speci men Type: BLOOD SPECIMEN Ordering Facility: [facility] Address: [address] [place] [address] Performed By: #### 1 1571-07, #### [facility] CLIA [id number] [address] [place] [address] [place] Protein (U) [Mass/Vol] Negative Normal Trace , Negative [facility] Comment on above: Order Comment: Speci men Type: BLOOD SPECIMEN Ordering Facility: [facility] Address: [address] [place] [address] Performed By: #### 1 1571-07, #### [facility] CLIA [id number] [address] [place] [address] [place] RBC LM.HPF (Urine sed) [#/Area] /[HPF] Abnormal 0-3 /HPF [facility] Comment on above: Order Comment: Speci men Type: BLOOD SPECIMEN Ordering Facility: [facility] Address: [address] [place] [address] Performed By: #### 1 1571-07, #### [facility] CLIA [id number] [address] [place] [address] [place] Specific gravity (U) [Rel density] 1.018 Normal 1.005-1.03 0 [facility] Comment on above: Order Comment: Speci men Type: BLOOD SPECIMEN Ordering Facility: [facility] Address: [address] [place] [address] Performed By: #### 1 1571-07, #### [facility] CLIA [id number] [address] [place], [place] [id number] [place] Urobilinogen Ql (U) Normal Normal Normal [facility] Comment on above: Order Comment: Speci men Type: BLOOD SPECIMEN Ordering Facility: [facility] Address: [address] [place] [address] Performed By: #### 1 1571-07, 1987-07, #### [facility] CLIA [id number] [address] [place] [address] [place] WBC LM.HPF (Urine sed) [#/Area] 0-5 /HPF Normal 0-5 /HPF [facility] Comment on above: Order Comment: Speci men Type: BLOOD SPECIMEN Ordering Facility: [facility] Address: [address] [place] [address] Performed By: #### 1 1571-07, 1987-07, #### [facility] CLIA [id number] [address] [place] [address] [place] Basophil percentageOrdered B y: Ashley Fair on 07-05-2023 Hemoglobin (Bld) [Mass/Vol] 11.7 g/dL 12.0-15.0 [facility] Hematocrit Auto (Bld) [Volum e fraction]Ordered By: Ashley Fair on 07-05-2023 Hematocrit (Bld) [Volume fraction] 34.6 % 37-47 [facility] Absolute lymphocyte countOrd ered By: Cirilo Garcias on 07-04-2023 Lymphocytes Auto (Unsp spec) [#/Vol] 1.90 10*3/uL 0.83-4.51 [facility] Automated lymphocyte count a s percentage of total leukocytesOrdered By: Cirilo Garcias on 07-04-2023 Lymphocytes/100 WBC Auto (Unsp spec) 29.8 % 19-41 [facility] Basophil percentageOrdered B y: Cirilo Garcias on 07-04-2023 Basophils/100 WBC (Bld) 1.1 % 0-1 [facility] Chloride [Moles/Vol] 108 mmol/L 98-107 [facility] Eosinophils/100 WBC (Bld) 4.9 % 0-5 [facility] Glucose [Mass/Vol] 88 mg/dL 74-106 [facility] Hemoglobin (Bld) [Mass/Vol] 13.0 g/dL 12.0-15.0 [facility] Monocytes/100 WBC (Bld) 5.8 % 0-10 [facility] Neutrophils (Bld) [#/Vol] 3.7 10*3/uL 2.0-7.7 [facility] Neutrophils/100 WBC (Bld) 58.2 % 47-70 [facility] Potassium [Moles/Vol] 4.2 mmol/L 3.5-5.1 [facility] Sodium [Moles/Vol] 138 mmol/L 136-145 [facility] WBC (Bld) [#/Vol] 6.4 10*3/uL 4.4-11.0 [facility] Basophil percentage 0 SEEN /hpf 0-5 [facility] Bilirubin Test strip Ql (U)O rdered By: Cirilo Garcias on 07-04-2023 Bilirubin Ql (U) Negative Negative [facility] Determination of erythrocyte mean corpuscular volume (MCV)Ordered By: Cirilo Garcias on 07-04-2023 MCV (RBC) [Entitic vol] 92.6 fL 81-99 [facility] Erythrocyte distribution wid th ratioOrdered By: Cirilo Garcias on 07-04-2023 Erythrocyte distribution width (RBC) [Ratio] 13.0 % 11.6-14.6 [facility] Erythrocyte distribution wid th standard deviationOrdered By: Cirilo Garcias on 07-04-2023 Erythrocyte distribution width (RBC) [Entitic vol] 43.7 fL 35.1-43.9 [facility] Hematocrit Auto (Bld) [Volum e fraction]Ordered By: Cirilo Garcias on 07-04-2023 Hematocrit (Bld) [Volume fraction] 39.0 % 37-47 [facility] Immature granulocytes/100 WB C Auto (Bld)Ordered By: Cirilo Garcias on 07-04-2023 Immature granulocytes/100 WBC (Bld) 0.200 % 0.0-0.9 [facility] Comment on above: IG% - Immature Granu locytes (promyelocytes, myelocytes and metamyelocytes) > 1% indicates that a LEFT SHIFT is Present. Ketones Test strip Ql (U)Ord ered By: Cirilo Garcias on 07-04-2023 Ketones Ql (U) Negative Negative [facility] Laboratory - Chemistry and C hemistry - challengeOrdered By: Cirilo Garcias on 07-04-2023 CO2 [Moles/Vol] 24.0 mmol/L 21.0-32.0 [facility] Urea nitrogen/Creatinine [Mass ratio] 21.9 mg/mg 10-20 [facility] HCG ( test) Ql (U) Negative [facility] Comment on above: Very dilute urine sp ecimens, as indicated by a low specificgravity, may not contain insurance account representative levels of hCG. If is still suspected, a first morning urinespecimen should be collected 48 hours later and tested. Laboratory - Hematology and Cell countsOrdered By: Cirilo Garcias on 07-04-2023 MCH (RBC) [Entitic mass] 30.9 pg 27.0-32.0 [facility] MCHC (RBC) [Mass/Vol] 33.3 g/dL 32-36 [facility] Nucleated RBC/100 WBC (Bld) [Ratio] 0 % 0-5 [facility] Platelet mean volume (Bld) [Entitic vol] 9.7 fL 6.2-12.0 [facility] Platelets (Bld) [#/Vol] 282 10*3/uL 150-450 [facility] Mucus LM Ql (Urine sed)Order ed By: Cirilo Garcias on 07-04-2023 Mucus Ql (Urine sed) 0 SEEN /hpf [facility] Nitrite Test strip Ql (U)Ord ered By: Cirilo Garcias on 07-04-2023 Nitrite Ql (U) Negative Negative [facility] No Panel InformationOrdered By: Cirilo Garcias on 07-04-2023 Estimated Creatinine Clearance Calc 124.56 ml/min [facility] Estimated GFR (MDRD) Amer 110 mL/min >60 [facility] Comment on above: GFR Calc Estimated GFR (MDRD) Non-Af Amer 91 mL/min >60 [facility] Comment on above: Non- GFR Calc Urine RBC > 100 SEEN /hpf 0-5 [facility] Protein Test strip Ql (U)Ord ered By: Cirilo Garcias on 07-04-2023 Protein Ql (U) 500 mg/dl Negative [facility] RBC Auto (Bld) [#/Vol]Ordere d By: Cirilo Garcias on 07-04-2023 RBC (Bld) [#/Vol] 4.21 10*6/uL 4.2-5.4 [facility] Serum or plasma calcium patrizia urement (mass/volume)Ordered By: Cirilo Garcias on 07-04-2023 Calcium [Mass/Vol] 8.8 mg/dL 8.5-10.1 [facility] Serum or plasma creatinine m easurement (mass/volume)Ordered By: Cirilo Garcias on 07-04-2023 Creatinine [Mass/Vol] 0.73 mg/dL 0.55-1.02 [facility] Comment on above: The validity of the calculated GFR & GFRAA in patients over 70 years has not been determined. Clinical correlation is essential. Serum or plasma urea nitroge n measurement (mass/volume)Ordered By: Cirilo Garcias on 07-04-2023 Urea nitrogen [Mass/Vol] 16 mg/dL 7-18 [facility] Squamous epithelial cells de tection in urine sediment by light microscopyOrdered By: Cirilo Garcias on 07-04-2023 Epithelial cells.squamous LM Ql (Urine sed) 0 SEEN /hpf 5-10 [facility] Thin prep Papanicolaou smear with manual screeningOrdered By: Cirilo Garcias on 07-04-2023 Thin prep Papanicolaou smear with manual screening 6 5-15 [facility] Urine blood detectionOrdered By: Cirilo Garcias on 07-04-2023 RBC Ql (U) 250 /ul Negative [facility] Urine clarityOrdered By: Justin Garcias on 07-04-2023 Clarity (U) Turbid Clear [facility] Urine color determinationOrd ered By: Cirilo Garcias on 07-04-2023 Color (U) Red Yellow [facility] Urine glucose detectionOrder ed By: Cirilo Garcias on 07-04-2023 Glucose Ql (U) Normal mg/dl Normal [facility] Urine leukocyte esterase det ection by dipstickOrdered By: Cirilo Garcias on 07-04-2023 Leukocyte esterase Test strip Ql (U) Negative Negative [facility] Urine pHOrdered By: Cirilo barr on 07-04-2023 pH (U) 5.0 [pH] 5.0 - 8.0 [facility] Urine sediment bacteria coun t by microscopy (number/high power field)Ordered By: Cirilo Garcias on 07-04-2023 Bacteria LM.HPF (Urine sed) [#/Area] 0 /[HPF] None Seen [facility] Urine specific gravity measu rementOrdered By: Cirilo Garcias on 07-04-2023 Specific gravity (U) [Rel density] 1.030 1.002-1.03 0 [facility] Urine urobilinogen measureme ntOrdered By: Cirilo Garcias on 07-04-2023 Urobilinogen Ql (U) 1 mg/dl Normal [facility] Thin prep Papanicolaou smear with manual screeningOrdered By: Matty Tam on 06-30-2023 Thin prep Papanicolaou smear with manual screening 283.6 ng/mL 0.0-101.8 [facility] Comment on above: Chromogranin A perfo rmed by [employer]/4moms KRYPTORmethodologyValues obtained with different assay methods or kits cannotbe used interchangeably.Performed at: [facility] [id number] Director: Thai Maddox MD, Phone: [phone] Laboratory - Chemistry and C hemistry - challengeOrdered By: Ashley Fair on 06-10-2023 HCG ( test) Ql (U) Negative [facility] Comment on above: Very dilute urine sp ecimens, as indicated by a low specificgravity, may not contain insurance account representative levels of hCG. If is still suspected, a first morning urinespecimen should be collected 48 hours later and tested. Activated partial thrombopla stin time (aPTT) in platelet poor plasma by coagulation aOrdered By: Santana Crespo on 06-04-2023 aPTT Coag (PPP) [Time] 31.0 s 24.1-36.2 [facility] Basophil percentageOrdered B y: Santana Crespo on 06-04-2023 Bilirubin [Mass/Vol] 0.30 mg/dL 0.20-1.00 [facility] Comment on above: For patients on eltr ombopag therapy, use of Dimension [place] TBIL is not recommended. Protein [Mass/Vol] 7.1 g/dL 6.4-8.2 [facility] Direct bilirubinOrdered By: Santana Crespo on 06-04-2023 Bilirubin.direct [Mass/Vol] 0.11 mg/dL 0.00-0.30 [facility] Laboratory - Chemistry and C hemistry - challengeOrdered By: Santana Crespo on 06-04-2023 ALP [Catalytic activity/Vol] 76 U/L 45-117 [facility] ALT [Catalytic activity/Vol] 21 U/L 13-56 [facility] Globulin (S) [Mass/Vol] 3.5 g/dL 2.2-4.2 [facility] Laboratory - CoagulationOrde red By: Santana Crespo on 06-04-2023 INR Coag (Bld) [Relative time] 1.1 {INR} [facility] PT Coag (PPP) [Time] 13.7 s 11.7-14.9 [facility] Thin prep Papanicolaou smear with manual screeningOrdered By: Santana Crespo on 06-04-2023 Thin prep Papanicolaou smear with manual screening 3.6 g/dL 3.2-5.0 [facility] Thin prep Papanicolaou smear with manual screening 22 U/L 15-37 [facility] Clostridioides difficile nuc leic acid assay by PCROrdered By: Matty Tam on 05-05-2023 C. difficile DNA MARELY+probe Ql (Unsp spec) [facility] No Panel InformationOrdered By: Matty Tam on 05-05-2023 Stool Calprotectin 119 ug/g 0-120 [facility] Comment on above: Concentration Interp retation Follow-Up< 5 - 50 ug/g Normal None>50 -120 ug/g Borderline Re-evaluate in 4-6 weeks >120 ug/g Abnormal Repeat as clinically indicatedPerformed at: [facility] [id number] Director: Christian Crowell PhD, Phone: [phone] at: [facility] [id number] Director: Thai Maddox MD, Phone: [phone] Stool Neutral Fats Normal . [facility] Comment on above: Normal (<60 Droplets /HPF) Giardia Antigen (WILTON) [facility] Immunoglobulin E 34 IU/mL 6-495 [facility] Immunoglobulin M 131 mg/dL 26-217 [facility] Ova and parasitesOrdered By: Matty Tam on 05-05-2023 Ova and parasites identified LM Nom (Unsp spec) [facility] Qualitative fecal fat or lip idsOrdered By: Matty Tam on 05-05-2023 Fat Ql (Stl) Increased . [facility] Comment on above: Normal (<100 Droplet s/HPF) Serum or plasma IgA measurem ent (mass/volume)Ordered By: Matty Tam on 05-05-2023 IgA [Mass/Vol] 131 mg/dL 87-352 [facility] Serum or plasma IgG measurem ent (mass/volume)Ordered By: Matty Tam on 05-05-2023 IgG [Mass/Vol] 1246 mg/dL 586-1602 [facility] Stool enteric pathogen panel by probe and target amplification methodOrdered By: Matty Tam on 05-05-2023 Gastrointestinal pathogens panel MARELY+probe (Stl) [facility] Stool gastrointestinal hemog lobin detection by immunologic methodOrdered By: Matty Tam on 05-05-2023 Lower GI hemoglobin IA Ql (Stl) [facility] Stool lactoferrin detection by immunoassayOrdered By: Matty Tam on 05-05-2023 Lactoferrin IA Ql (Stl) [facility] Stool pancreatic elastase me asurement (mass/mass)Ordered By: Matty Tam on 05-05-2023 Elastase.pancreatic (Stl) [Mass/Mass] 133 >200 [facility] Comment on above: Result Units: ug [address] st./g Severe Pancreatic Insufficiency: <100 Moderate Pancreatic Insufficiency: 100 - 200 Normal: >200Performed at: [facility] - [facility] [address] [id number] Director: Thai Maddox MD, Phone: [phone] Thin prep Papanicolaou smear with manual screeningOrdered By: Matty Tam on 05-05-2023 Thin prep Papanicolaou smear with manual screening 647.1 ng/mL 0.0-101.8 [facility] Comment on above: Chromogranin A perfo rmed by [employer]moms KRYPTORmethodologyValues obtained with different assay methods or kits cannotbe used interchangeably.Performed at: - [facility] [id number] Director: Christian Crowell PhD, Phone: [phone] at: [facility] [id number] Director: Thai Maddox MD, Phone: [phone] Absolute lymphocyte countOrd ered By: ED PROVIDER on 04-21-2023 Lymphocytes Auto (Unsp spec) [#/Vol] 2.73 10*3/uL 0.83-4.51 [facility] Automated lymphocyte count a s percentage of total leukocytesOrdered By: ED PROVIDER on 04-21-2023 Lymphocytes/100 WBC Auto (Unsp spec) 29.7 % 19-41 [facility] Basophil percentageOrdered B y: Wagner Reynolds on 04-21-2023 Basophil percentage 0 SEEN /hpf 0-5 [facility] Basophil percentageOrdered B y: ED PROVIDER on 04-21-2023 Basophils/100 WBC (Bld) 1.3 % 0-1 [facility] Chloride [Moles/Vol] 108 mmol/L 98-107 [facility] Eosinophils/100 WBC (Bld) 3.7 % 0-5 [facility] Glucose [Mass/Vol] 152 mg/dL 74-106 [facility] Comment on above: Fasting Glucose resu lt greater than or equal to 126 mg/dL suggests DIABETES MELLITUS per A.D.A. criteria. Hemoglobin (Bld) [Mass/Vol] 14.8 g/dL 12.0-15.0 [facility] Monocytes/100 WBC (Bld) 4.9 % 0-10 [facility] Neutrophils (Bld) [#/Vol] 5.5 10*3/uL 2.0-7.7 [facility] Neutrophils/100 WBC (Bld) 60.3 % 47-70 [facility] Potassium [Moles/Vol] 4.0 mmol/L 3.5-5.1 [facility] Comment on above: Slight Hemolysis, Re sult may be falsely increased. Sodium [Moles/Vol] 134 mmol/L 136-145 [facility] WBC (Bld) [#/Vol] 9.2 10*3/uL 4.4-11.0 [facility] Bilirubin Test strip Ql (U)O rdered By: ED PROVIDER on 04-21-2023 Bilirubin Ql (U) Negative Negative [facility] Determination of erythrocyte mean corpuscular volume (MCV)Ordered By: ED PROVIDER on 04-21-2023 MCV (RBC) [Entitic vol] 90.2 fL 81-99 [facility] Erythrocyte distribution wid th ratioOrdered By: ED PROVIDER on 04-21-2023 Erythrocyte distribution width (RBC) [Ratio] 12.4 % 11.6-14.6 [facility] Erythrocyte distribution wid th standard deviationOrdered By: ED PROVIDER on 04-21-2023 Erythrocyte distribution width (RBC) [Entitic vol] 41.1 fL 35.1-43.9 [facility] Hematocrit Auto (Bld) [Volum e fraction]Ordered By: ED PROVIDER on 04-21-2023 Hematocrit (Bld) [Volume fraction] 44.1 % 37-47 [facility] Immature granulocytes/100 WB C Auto (Bld)Ordered By: ED PROVIDER on 04-21-2023 Immature granulocytes/100 WBC (Bld) 0.100 % 0.0-0.9 [facility] Comment on above: IG% - Immature Granu locytes (promyelocytes, myelocytes and metamyelocytes) > 1% indicates that a LEFT SHIFT is Present. Ketones Test strip Ql (U)Ord ered By: ED PROVIDER on 04-21-2023 Ketones Ql (U) Negative Negative [facility] Laboratory - Chemistry and C hemistry - challengeOrdered By: ED PROVIDER on 04-21-2023 CO2 [Moles/Vol] 21.0 mmol/L 21.0-32.0 [facility] Urea nitrogen/Creatinine [Mass ratio] 20.0 mg/mg 10-20 [facility] Laboratory - Hematology and Cell countsOrdered By: ED PROVIDER on 04-21-2023 MCH (RBC) [Entitic mass] 30.3 pg 27.0-32.0 [facility] MCHC (RBC) [Mass/Vol] 33.6 g/dL 32-36 [facility] Nucleated RBC/100 WBC (Bld) [Ratio] 0 % 0-5 [facility] Platelets (Bld) [#/Vol] 353 10*3/uL 150-450 [facility] Mucus LM Ql (Urine sed)Order ed By: Wagner Reynolds on 04-21-2023 Mucus Ql (Urine sed) 0 SEEN /hpf [facility] Nitrite Test strip Ql (U)Ord ered By: ED PROVIDER on 04-21-2023 Nitrite Ql (U) Negative Negative [facility] No Panel InformationOrdered By: Wagner Reynolds on 04-21-2023 Urine RBC 0-5 SEEN /hpf 0-5 [facility] No Panel InformationOrdered By: ED PROVIDER on 04-21-2023 Estimated GFR (MDRD) Amer 87 mL/min >60 [facility] Comment on above: GFR Calc Estimated GFR (MDRD) Non-Af Amer 72 mL/min >60 [facility] Comment on above: Non- GFR Calc Platelet mean volume Jonathan-Ec ker (Bld) [Entitic vol]Ordered By: ED PROVIDER on 04-21-2023 Platelet mean volume (Bld) [Entitic vol] 9.9 fL 6.2-12.0 [facility] Protein Test strip Ql (U)Ord ered By: ED PROVIDER on 04-21-2023 Protein Ql (U) Negative Negative [facility] RBC Auto (Bld) [#/Vol]Ordere d By: ED PROVIDER on 04-21-2023 RBC (Bld) [#/Vol] 4.89 10*6/uL 4.2-5.4 [facility] Serum or plasma calcium patrizia urement (mass/volume)Ordered By: ED PROVIDER on 04-21-2023 Calcium [Mass/Vol] 9.1 mg/dL 8.5-10.1 [facility] Serum or plasma choriogonado tropin detectionOrdered By: ED PROVIDER on 04-21-2023 HCG ( test) Ql Negative [facility] Serum or plasma creatinine m easurement (mass/volume)Ordered By: ED PROVIDER on 04-21-2023 Creatinine [Mass/Vol] 0.90 mg/dL 0.55-1.02 [facility] Comment on above: The validity of the calculated GFR & GFRAA in patients over 70 years has not been determined. Clinical correlation is essential. Serum or plasma urea nitroge n measurement (mass/volume)Ordered By: ED PROVIDER on 04-21-2023 Urea nitrogen [Mass/Vol] 18 mg/dL 7-18 [facility] Squamous epithelial cells de tection in urine sediment by light microscopyOrdered By: Wagner Reynolds on 04-21-2023 Epithelial cells.squamous LM Ql (Urine sed) 0-5 SEEN /hpf 5-10 [facility] Thin prep Papanicolaou smear with manual screeningOrdered By: ED PROVIDER on 04-21-2023 Thin prep Papanicolaou smear with manual screening 5 5-15 [facility] Urine blood detectionOrdered By: ED PROVIDER on 04-21-2023 RBC Ql (U) 10 /ul Negative [facility] Urine clarityOrdered By: ED PROVIDER on 04-21-2023 Clarity (U) Clear Clear [facility] Urine color determinationOrd ered By: ED PROVIDER on 04-21-2023 Color (U) Yellow Yellow [facility] Urine glucose detectionOrder ed By: ED PROVIDER on 04-21-2023 Glucose Ql (U) Normal mg/dl Normal [facility] Urine leukocyte esterase det ection by dipstickOrdered By: ED PROVIDER on 04-21-2023 Leukocyte esterase Test strip Ql (U) Negative Negative [facility] Urine pHOrdered By: ED PROVI MIKEL on 04-21-2023 pH (U) 6.0 [pH] 5.0 - 8.0 [facility] Urine sediment bacteria coun t by microscopy (number/high power field)Ordered By: Wagner Reynolds on 04-21-2023 Bacteria LM.HPF (Urine sed) [#/Area] RARE /hpf None Seen [facility] Urine specific gravity measu rementOrdered By: ED PROVIDER on 04-21-2023 Specific gravity (U) [Rel density] 1.010 1.002-1.03 0 [facility] Urine urobilinogen measureme ntOrdered By: ED PROVIDER on 04-21-2023 Urobilinogen Ql (U) Normal mg/dl Normal [facility] Wills's yeast IgE serumOrde red By: Edgar Coffey on 04-09-2023 Wills's yeast IgE Qn (S) <0.10 kU/L Class 0 [facility] Comment on above: Performed at: [address] [id number] Director: Thai Maddox MD, Phone: [phone] Laboratory - Miscellaneous t estsOrdered By: Edgar Coffey on 04-09-2023 Service comment (Unsp spec) [Interp] Comment . [facility] Comment on above: Levels of Specific [...] 04-09-2023 Scallop Allergen <0.10 kU/L Class 0 [facility] Sesame Seed Allergen IgE Antibody <0.10 kU/L Class 0 [facility] Shrimp Allergen <0.10 kU/L Class 0 [facility] Serum black walnut IgE antib lucas assay (units/volume)Ordered By: Edgar Coffey on 04-09-2023 Black [place] IgE Qn (S) <0.10 kU/L Class 0 [facility] Serum clam IgE antibody assa y (units/volume)Ordered By: Edgar Coffey on 04-09-2023 Clam IgE Qn (S) <0.10 kU/L Class 0 [facility] Serum codfish IgE antibody a ssay (units/volume)Ordered By: Edgar Coffey on 04-09-2023 Codfish IgE Qn (S) <0.10 kU/L Class [address] [facility] Serum corn IgE antibody assa y (units/volume)Ordered By: Edgar Coffey on 04-09-2023 [place] IgE Qn (S) <0.10 kU/L Class 0 [facility] Serum cow milk IgE antibody assay (units/volume)Ordered By: Edgar Coffey on 04-09-2023 Cow milk IgE Qn (S) <0.10 kU/L Class 0 [facility] Cow milk IgE Qn (S) Not Reportable W [facility] Serum crab IgE antibody assa y (units/volume)Ordered By: Edgar Coffey on 04-09-2023 Crab IgE Qn (S) <0.10 kU/L Class 0 [facility] Serum egg white IgE antibody assay (units/volume)Ordered By: Edgar Coffey on 04-09-2023 Egg white IgE Qn (S) <0.10 kU/L Class 0 [facility] Serum gluten IgE antibody as say (units/volume)Ordered By: Edgar Coffey on 04-09-2023 Gluten IgE Qn (S) <0.10 kU/L Class 0 [facility] Serum lobster IgE antibody a ssay (units/volume)Ordered By: Edgar Coffey on 04-09-2023 Lobster IgE Qn (S) <0.10 kU/L Class [address] [facility] Serum peanut IgE antibody as say (units/volume)Ordered By: Edgar Coffey on 04-09-2023 Peanut IgE Qn (S) <0.10 kU/L Class 0 [facility] Serum salmon IgE antibody as say (units/volume)Ordered By: Edgar Coffey on 04-09-2023 [place] IgE Qn (S) <0.10 kU/L Class 0 [facility] Serum soybean IgE antibody a ssay (units/volume)Ordered By: Edgar Coffey on 04-09-2023 Soybean IgE Qn (S) <0.10 kU/L Class 0 [facility] Serum tuna IgE antibody assa y (units/volume)Ordered By: Edgar Coffey on 04-09-2023 Tuna IgE Qn (S) <0.10 kU/L Class 0 [facility] Serum wheat IgE antibody ass ay (units/volume)Ordered By: Edgar Coffey on 04-09-2023 Wheat IgE Qn (S) <0.10 kU/L Class 0 [facility] Stomach Views for gastric emptying solid phase W radionuclide [place] 11-20-2022 Abnormally delayed gastric emptying following solid meal. Report Dictated on Electronically Signed By: Tonio Arciniega MD Electronically Signed Date/Time: 11/20/2022 10:34 AM EDT [facility] Patient Name: MARCELINO ARAIZA : 1975 Exam Date/Time: 11/20/2022 10:23 Procedure: NM GASTRIC [...] ingestion is between 19 and 52 percent. [facility] Tonio Arciniega MD - 11/20/2022 Patient Name: MARCELINO ARAIZA : 1975 Exam Date/Time: 11/20/2022 10:23 Procedure: NM GASTRIC [...] Electronically Signed Date/Time: 11/20/2022 10:34 AM EDT [facility] Radiology Study observation (narrative) [facility] NM Stomach Views for gastric emptying solid phase W radionuclide POOrdered By: Tonio Arciniega on 11-20-2022 [facility] Work Phone: House Account Tracking (Ques t)on 11-11-2022 Tracking House Account [employer] Comment on above: We were unable to id entify an account number for the order submitted. If you do not have a [employer] account number or if your account information needs to be updated please call [phone] ([phone]) for assistance. To prevent delays in testing and processing of your orders please provide the following information for this order and with every additional order submitted: [facility] account number and account name Client address Client phone and fax number NPI number of ordering physician along with the physician name. [facility] Hm Pap Smearon 10-30-2022 Interpretation and review of laboratory results Abnormal [facility] PAP IG HPV APTIMA 16 /18,45 on 07-16-2022 ADEQ Comment Normal . [facility] Comment on above: Order Comment: Specimen Comment: [id number] Comment: Source.............CervixSp ecimen Comment: No. of containers..01 ThinPrep Vial Result Comment: Satisfactory for evaluation. No endocervical component is identified. Performed By: #### [id number] ####[facility] [address] [place], [place], [phone] COMM . Normal . [facility] Comment on above: Order Comment: Specimen Comment: [id number] Comment: Source.............CervixSp ecimen Comment: No. of containers..01 ThinPrep Vial Performed By: #### [id number] ####[facility] [address] [place], [place], [id number] COMMENT Comment Normal . [facility] Comment on above: Order Comment: Specimen Comment: [id number] Comment: Source.............CervixSp ecimen Comment: No. of containers..01 ThinPrep Vial Result Comment: This liquid based ThinPrep(R) pap test was screened with the use of an image guided system. Performed By: #### [id number] ####[facility] [address] [place], [place], [id number] DIAG Comment Abnormal . [facility] Comment on above: Order Comment: Specimen Comment: [id number] Comment: Source.............CervixSp ecimen Comment: No. of containers..01 ThinPrep Vial Result Comment: EPITHELIAL CELL ABNORMALITY. LOW GRADE SQUAMOUS INTRAEPITHELIAL LESION (LSIL). Performed By: #### [id number] ####[facility] [address] [place], [place], [id number] HPV APTIMA, HR Negative Normal Negative [facility] Comment on above: Order Comment: Specimen Comment: [id number] Comment: Source.............CervixSp ecimen Comment: No. of containers..01 ThinPrep Vial Result Comment: This nucleic acid amplification test detects fourteen high- risk HPV types (16,18,31,33,35,39,45,51,52 ,56,58,59,66,68) without differentiation. Performed By: #### [id number] ####[facility] [address] [place], [place], [id number] HPV Kate Rfx Comment Normal . [facility] Comment on above: Order Comment: Specimen Comment: [id number] Comment: Source.............CervixSp ecimen Comment: No. of containers..01 ThinPrep Vial Result Comment: Criteria not met, HPV Genotype not performed. Performed at: - [facility] [id number] [employer] Operator: Alysa Angela MD, Phone: [phone] Performed at: [facility] - [facility] [employer] [address] [place] [id number] [employer] Machine Operator: Gerald Rios MD, Phone: [phone] Performed at: G - [facility], [place] [id number] [employer] Machine Operator: Alysa Angela MD, Phone: [phone] Performed By: #### [id number] ####[facility] [id number] [place], [address] PAPSMR Comment Normal . [facility] Comment on above: Order Comment: Specimen Comment: [id number] Comment: Source.............CervixSp ecimen Comment: No. of containers..01 ThinPrep Vial Result Comment: The Pap smear is a screening test designed to aid in the detection of premalignant and malignant conditions of the uterine cervix. It is not a diagnostic procedure and should not be used as the sole means of detecting cervical cancer. Both false-positive and false-negative reports do occur. Performed By: #### [id number] ####[facility] [address] [place], [address] Path.prov.IDC-9 Comment Normal . [facility] Comment on above: Order Comment: Specimen Comment: [id number] Comment: Source.............CervixSp ecimen Comment: No. of containers..01 ThinPrep Vial Result Comment: R87.612 Performed By: #### [id number] ####[facility] [address] [place], [place], [id number] PERFORM Comment Normal . [facility] Comment on above: Order Comment: Specimen Comment: [id number] Comment: Source.............CervixSp ecimen Comment: No. of containers..01 ThinPrep Vial Result Comment: Justin Delgado Top Coater (ASCP) Performed By: #### [id number] ####[facility] [id number] [place], [place], [address] RECOMM Comment Abnormal . [facility] Comment on above: Order Comment: Specimen Comment: [id number] Comment: Source.............CervixSp ecimen Comment: No. of containers..01 ThinPrep Vial Result Comment: Suggest follow up as clinically appropriate. Performed By: #### [id number] ####[facility] [id number] [place], [place], [address] SIGN Comment Normal . [facility] (more content not included)... [facility] Laboratory - Chemistry and C hemistry - challengeon 08-20-2022 HCG ( test) Ql (U) Negative [facility] No Panel InformationOrdered By: Sveta Cline on 07-13-2022 Bordatella pertussis DNA (MARELY) [facility] Bordatella pertussis DNA (MARELY) [facility] Bordetella pertussis IgM ant ibody assayOrdered By: Sveta Cline on 07-10-2022 B. pertussis IgM IA Qn (S) < 1.0 index 0.0-0.9 [facility] Comment on above: Negative <1.0 Border line 1.0 - 1.1 Positive >1.1 No Panel InformationOrdered By: Sveta Cline on 07-10-2022 Bordetella pertussis IgG Antibody 3.46 index 0.00-0.94 [facility] Comment on above: Negative <0.95 Equiv ocal 0.95 - 1.04 Positive >1.04 Serum Bordetella pertussis I gA antibody assay (units/volume)Ordered By: Sveta Cline on 07-10-2022 B. pertussis IgA Qn (S) 2.3 index 0.0-0.9 [facility] Comment on above: Negative <1.0 Border line 1.0 - 1.1 Positive >1.1Performed at: - [address] [id number] Director: Thai Maddox MD, Phone: [phone] Cervical or vagninal specime n microscopic examination by cytology stain (reported asOrdered By: Jacqueline Martinez on 07-08-2022 Cytology report Cyto stain Doc (Cvx/Vag) Comment . [facility] Comment on above: The Pap smear [...] DNA Probe+sig amp Ql (Cvx) Negative Negative [facility] Comment on above: This nucleic acid am plification test detects fourteen high- risk HPV types (16,18,31,33,35,39,45,51,52,56,58,59,66,68)without differentiation. Laboratory - CytologyOrdered By: Jacqueline Martinez on 07-08-2022 Business Development Officer Cyto stain Nom (Cvx/Vag) [ID] Comment . [facility] Comment on above: Jerry Rodriguez totechnologist (ASCP) Pathologist Cyto stain Nom (Cvx/Vag) [ID] Comment . [facility] Comment on above: Alysa Angela MD, Pathologist Recommended follow-up Cyto stain Nom (Cvx/Vag) Comment . [facility] Comment on above: Suggest follow up as clinically appropriate. Laboratory - Miscellaneous t estsOrdered By: Jacqueline Martinez on 07-08-2022 Service comment (Unsp spec) [Interp] Comment . [facility] Comment on above: This liquid based Th inPrep(R) pap test was screened withthe use of an image guided system. Service comment (Unsp spec) [Interp] . . [facility] Liquid-based cerv Pap + CT/G C by MARELY w reflex to high-risk HPV for ASCUSOrdered By: Jacqueline Martinez on 07-08-2022 Cytology report Cyto stain.thin prep Doc (Cvx/Vag) Comment . [facility] Comment on above: Criteria not met, HP V Genotype not performed.Performed at: WB - [facility] [address] [id number] Director: Alysa Angela MD, Phone: [phone] at: [facility] [address] [place], [place] [id number] Director: Gerald Rios MD, Phone: [phone] at: =G - [facility] [address] [id number] Director: Alysa Angela MD, Phone: [phone] No Panel InformationOrdered By: Jacqueline Martinez on 07-08-2022 Pathology report final diagnosis Narrative Comment . [facility] Comment on above: EPITHELIAL CELL ABNO RMALITY.LOW GRADE SQUAMOUS INTRAEPITHELIAL LESION (LSIL). R87.612 Influenza virus A and B and SARS-CoV-2 (COVID-19) Ag panel - Upper respiratory specimOrdered By: Dr. Doe on 06-16-2022 SARS-CoV-2 (COVID-19) RNA MARELY+probe Ql (Resp) [facility] Influenza virus A and B and SARS-CoV-2 (COVID-19) Ag panel - Upper respiratory specimOrdered By: Landon Doe on 06-15-2022 SARS-CoV-2 (COVID-19) RNA MARELY+probe Ql (Resp) [facility] No Panel InformationOrdered By: Nadia Bolanos on 06-15-2022 D-Dimer Quantitative (PE/DVT) 0.42 FEU/ug/m 0.27-0.49 [facility] Comment on above: NORMAL D-Dimer level (<0.50) indicates no DVT or PE. No Panel Informationon 06-[address] [facility] XR CHEST 2V FRONTAL/LATon [facility] XR Chest PA and Lateralon IMPRESSION: No acute radiographic abnormality. Kitchen Supervisor: FILI Transcribe Date/Time: Jun 15 2022 11:42A Dictated by : KRISTAN KING MD This examination was interpreted and the report reviewed and electronically signed by: KRISTAN KING MD on Jun 15 2022 11:42AM [facility] DIVISION OF RADIOLOGY * * *Final Report* [...] soft tissues: Unremarkable. DIVISION OF RADIOLOGY Provider, [facility] Sandra finnegan [address] - 06/15/2022 * * *Final Report* * [...] Unremarkable. IMPRESSION IMPRESSION: No acute radiographic abnormality. Kitchen Supervisor: [employer] Transcribe Date/Time: Jun 15 2022 11:42A Dictated by : KRISTAN KING MD This examination was interpreted and the report reviewed and electronically signed by: KRISTAN KING MD on Jun 15 2022 11:42AM EST [facility] Radiology Study observation (narrative) [facility] XR Chest PA and LateralOrder ed By: Ccf Provider on 06-15-[address] [facility] Thin prep Papanicolaou smear with manual screeningOrdered By: Jacqueline Martinez on 06-06-2022 Genital Culture G. vaginalis (Presumptive) [facility] Culture, urineOrdered By: Dony Martinez on 06-05-2022 Bacteria identified Cx Nom (U) Positive [facility] Gram stain for investigation of transfusion reactionOrdered By: Jacqueline Martinez on 06-04-2022 Microscopic observation Gram stain Nom (Unsp spec) [facility] Chlamydia trachomatis rRNA d etection by probe and target amplification methodOrdered By: Jacqueline Martinez on 06-03-2022 C. trachomatis rRNA MARELY+probe Ql (Unsp spec) Negative Negative [facility] Laboratory - Chemistry and C hemistry - challengeon 06-03-2022 Bilirubin Ql (U) Negative [facility] Glucose Ql (U) Negative [facility] Ketones Ql (U) Negative [facility] pH (U) 5.0 [pH] [facility] Specific gravity (U) [Rel density] 1.030 [facility] Urobilinogen (U) [Mass/Vol] Negative [facility] Laboratory - Hematology and Cell countson 06-03-2022 Hemoglobin Ql (U) Moderate [facility] Laboratory - Microbiology an d Antimicrobial susceptibilityOrdered By: Jacqueline Martinez on 06-03-2022 N. gonorrhoeae DNA MARELY+probe Ql (Unsp spec) Negative Negative [facility] Comment on above: Performed at: =[facility] [address] [id number] Director: Alysa Angela MD, Phone: [phone] Laboratory - Specimen inform ationon 06-03-2022 Clarity (U) Clear [facility] Color (U) Yellow [facility] Laboratory - Urinalysison Nitrite Ql (U) Negative [facility] Protein Ql (U) Negative [facility] No Panel Informationon 06-03 POC Bacterial Vaginitis (Rapid) Positive [facility] POC Trichomonas (Rapid) Negative [facility] Urine Leukocytes Negatve [facility] Urine Non-Hemolyzed Blood [facility] Whole blood hemoglobin A1c/t otal hemoglobin ratio (mass fraction)Ordered By: Dr. Hickman on 05-20-2022 HbA1c (Bld) [Mass fraction] 5.1 % 3.8-5.6 [facility] Comment on above: Normal < 5.7 % Predi abetic 5.7 - 6.4 % Diabetic >or= 6.5 % Please note range changes. UA DIP, URINE (POC)on 2021 BILIRUBIN UA (POCT) Negative Negative [facility] CLARITY UA (POCT) Clear [facility] COLOR UA (POCT) Yellow [facility] GLUCOSE UA (POCT) Negative Negative mg/dL [facility] HEMOGLOBIN/BLOOD UA (POCT) Moderate Abnormal Negative [facility] KETONE UA (POCT) Trace Negative mg/dL [facility] LEUKOCYTES UA (POCT) Negative [facility] NITRITE UA (POCT) Negative Negative [facility] PH UA (POCT) 5.5 4.5 - 8.[address] [facility] Protein Ql (U) Negative Negative mg/dL [facility] SPECIFIC GRAVITY UA (POCT) 1.025 1.005 - 1.[address] [facility] UROBILINOGEN UA (POCT) 0.2 E.U./dL Claudia l E.U./dL [facility] Absolute lymphocyte counton 10-31-2021 Lymphocytes Auto (Unsp spec) [#/Vol] 1.79 10*3/uL 0.83-4.51 [facility] Work Phone: Basophil percentageon 2021 Basophils/100 WBC (Bld) 1.6 % 0-1 [facility] Work Phone: Bilirubin [Mass/Vol] 0.30 mg/dL 0.20-1.00 [facility] Work Phone: Comment on above: For patients on eltr ombopag therapy, use of Dimension [place] TBIL is not recommended. Chloride [Moles/Vol] 107 mmol/L 98-107 [facility]: Eosinophils/100 WBC (Bld) 4.3 % 0-5 [facility] Work Phone: Glucose [Mass/Vol] 109 mg/dL 74-106 [facility] Work Phone: Comment on above: Fasting Glucose resu lt from 100 to 125 mg/dL suggests IMPAIRED HOMEOSTASIS per A.D.A. criteria. Neutrophils (Bld) [#/Vol] 3.7 10*3/uL 2.0-7.7 [facility] Work Phone: Neutrophils/100 WBC (Bld) 59.4 % 47-70 [facility] Work Phone: Potassium [Moles/Vol] 4.1 mmol/L 3.5-5.1 [facility] Work Phone: Protein [Mass/Vol] 7.3 g/dL 6.4-8.2 [facility] Work Phone: Sodium [Moles/Vol] 140 mmol/L 136-145 [facility] Work Phone: WBC (Bld) [#/Vol] 6.3 10*3/uL 4.4-11.0 [facility] Work Phone: Blood erythrocytes count (nu mber/volume)on 10-31-2021 RBC (Bld) [#/Vol] 4.43 10*6/uL 4.2-5.4 [facility] Work Phone: Blood hemoglobin measurement (mass/volume)on 10-31-2021 Hemoglobin (Bld) [Mass/Vol] 13.8 g/dL 12.0-15.0 [facility] Work Phone: Blood lymphocytes/100 leukoc yteson 10-31-2021 Lymphocytes/100 WBC (Bld) 28.6 % 19-41 [facility] Work Phone: Blood monocytes/100 leukocyt eson 10-31-2021 Monocytes/100 WBC (Bld) 5.9 % 0-10 [facility] Work Phone: Blood platelet mean volumeon 10-31-2021 Platelet mean volume (Bld) [Entitic vol] 9.6 fL 6.2-12.0 [facility] Work Phone: Determination of erythrocyte mean corpuscular volume (MCV)on 10-31-2021 MCV (RBC) [Entitic vol] 91.2 fL 81-99 [facility] Work Phone: Hematocrit Auto (Bld) [Volum e fraction]on 10-31-2021 Hematocrit (Bld) [Volume fraction] 40.4 % 37-47 [facility] Work Phone: Laboratory - Chemistry and C hemistry - challengeon 10-31-2021 ALP [Catalytic activity/Vol] 75 U/L 45-117 [facility] Work Phone: ALT [Catalytic activity/Vol] 21 U/L 13-56 [facility] Work Phone: CO2 [Moles/Vol] 29.0 mmol/L 21.0-32.0 [facility] Work Phone: Globulin (S) [Mass/Vol] 3.6 g/dL 2.2-4.2 [facility] Work Phone: Urea nitrogen/Creatinine [Mass ratio] 18.6 mg/mg 10-20 [facility] Work Phone: Laboratory - Hematology and Cell countson 10-31-2021 Erythrocyte distribution width (RBC) [Entitic vol] 40.5 fL 35.1-43.9 [facility] Work Phone: Erythrocyte distribution width (RBC) [Ratio] 12.2 % 11.6-14.6 [facility] Work Phone: Immature granulocytes/100 WBC (Bld) 0.200 % 0.0-0.9 [facility] Work Phone: Comment on above: IG% - Immature Granu locytes (promyelocytes, myelocytes and metamyelocytes) > 1% indicates that a LEFT SHIFT is Present. MCH (RBC) [Entitic mass] 31.2 pg 27.0-32.0 [facility] Work Phone: Nucleated RBC/100 WBC (Bld) [Ratio] 0 % 0-5 [facility] Work Phone: MCHC Auto (RBC) [Mass/Vol]on 10-31-2021 MCHC (RBC) [Mass/Vol] 34.2 g/dL 32-36 [facility] Work Phone: No Panel Informationon 10-31 Estimated GFR (MDRD) Amer 99 mL/min >60 [facility] Work Phone: Comment on above: GFR Calc Estimated GFR (MDRD) Non-Af Amer 82 mL/min >60 [facility] Work Phone: Comment on above: Non- GFR Calc Vitamin D 25-Hydroxy 39.8 ng/mL [facility] Work Phone: Comment on above: Vitamin D 25(OH) Sta tus Range Deficiency <20 ng/mL (50nmol/L) Insufficiency 20 - 30 ng/mL (50 - 75 nmol/L) Sufficiency 30 - 100 ng/mL (75 - 250 nmol/L) Toxicity >100 ng/mL (>250 nmol/L) Platelets bldon 10-31-2021 Platelets (Bld) [#/Vol] 278 10*3/uL 150-450 [facility] Work Phone: Serum or plasma albumin patrizia urement (mass/volume)on 10-31-2021 Albumin [Mass/Vol] 3.7 g/dL 3.2-5.0 [facility] Work Phone: Serum or plasma albumin/glob ulin mass ratioon 10-31-2021 Albumin/Globulin [Mass ratio] 1.0 {ratio} 0.9-2.4 [facility] Work Phone: Serum or plasma calcium patrizia urement (mass/volume)on 10-31-2021 Calcium [Mass/Vol] 8.8 mg/dL 8.5-10.1 [facility] Work Phone: Serum or plasma creatinine m easurement (mass/volume)on 10-31-2021 Creatinine [Mass/Vol] 0.81 mg/dL 0.55-1.02 [facility] Work Phone: Comment on above: The validity of the calculated GFR & GFRAA in patients over 70 years has not been determined. Clinical correlation is essential. Serum or plasma urea nitroge n measurement (mass/volume)on 10-31-2021 Urea nitrogen [Mass/Vol] 15 mg/dL 7-18 [facility] Work Phone: Thin prep Papanicolaou smear with manual screeningon 10-31-2021 Thin prep Papanicolaou smear with manual screening 13 U/L 15-37 [facility] Work Phone: Thin prep Papanicolaou smear with manual screening 4 5-15 [facility] Work Phone: Laboratory - Microbiology an d Antimicrobial susceptibilityon 09-07-2021 SARS-CoV-2 (COVID-19) RNA MARELY+probe Ql (Unsp spec) Not detected [facility] Work Phone: No Panel Informationon 09-07 Influenza Types A,B Rapid (Clinic) Not detected [facility] Work Phone: Absolute lymphocyte counton 07-10-2021 Lymphocytes Auto (Unsp spec) [#/Vol] 1.93 10*3/uL 0.83-4.51 [facility] Work Phone: Basophil percentageon 2021 Basophils/100 WBC (Bld) 1.2 % 0-1 [facility] Work Phone: Eosinophils/100 WBC (Bld) 1.7 % 0-5 [facility] Work Phone: Neutrophils (Bld) [#/Vol] 3.9 10*3/uL 2.0-7.7 [facility] Work Phone: Neutrophils/100 WBC (Bld) 60.3 % 47-70 [facility] Work Phone: WBC (Bld) [#/Vol] 6.4 10*3/uL 4.4-11.0 [facility] Work Phone: Blood erythrocytes count (nu mber/volume)on 07-10-2021 RBC (Bld) [#/Vol] 4.51 10*6/uL 4.2-5.4 [facility] Work [facility]: [phone] Blood hemoglobin measurement (mass/volume)on 07-10-2021 Hemoglobin (Bld) [Mass/Vol] 13.7 g/dL 12.0-15.0 [facility] Work Phone: Blood lymphocytes/100 leukoc yteson 07-10-2021 Lymphocytes/100 WBC (Bld) 30.0 % 19-41 [facility] Work Phone: Blood monocytes/100 leukocyt eson 07-10-2021 Monocytes/100 WBC (Bld) 6.5 % 0-10 [facility] Work Phone: Blood platelet mean volumeon 07-10-2021 Platelet mean volume (Bld) [Entitic vol] 10.0 fL 6.2-12.0 [facility] Work Phone: Determination of erythrocyte mean corpuscular volume (MCV)on 07-10-2021 MCV (RBC) [Entitic vol] 89.8 fL 81-99 [facility] Work Phone: Hematocrit Auto (Bld) [Volum e fraction]on 07-10-2021 Hematocrit (Bld) [Volume fraction] 40.5 % 37-47 [facility] Work Phone: Laboratory - Hematology and Cell countson 07-10-2021 Erythrocyte distribution width (RBC) [Entitic vol] 40.0 fL 35.1-43.9 [facility] Work Phone: Erythrocyte distribution width (RBC) [Ratio] 12.1 % 11.6-14.6 [facility] Work Phone: Immature granulocytes/100 WBC (Bld) 0.300 % 0.0-0.9 [facility] Work Phone: Comment on above: IG% - Immature Granu locytes (promyelocytes, myelocytes and metamyelocytes) > 1% indicates that a LEFT SHIFT is Present. MCH (RBC) [Entitic mass] 30.4 pg 27.0-32.0 [facility] Work Phone: Nucleated RBC/100 WBC (Bld) [Ratio] 0 % 0-5 [facility] Work Phone: MCHC Auto (RBC) [Mass/Vol]on 07-10-2021 MCHC (RBC) [Mass/Vol] 33.8 g/dL 32-36 [facility] Work Phone: No Panel Informationon 07-10 Thyroid Stimulating Hormone (TSH) 1.66 uIU/mL 0.358-3.74 [facility] Work Phone: Platelets bldon 07-10-2021 Platelets (Bld) [#/Vol] 295 10*3/uL 150-450 [facility] Work Phone: Hm Colonoscopyon 11-07-2020 CONVERTED [...] in three cassettes. Gross examination performed at [facility], [address] [place] [address] 11/07/2020 10:52:00 PM COPATH[facility]US CONVERTED CLINICAL HISTORY Z80.0, LMP: N/A A: R/O CELIAC B: R/O H. PYLORI D: R/O MICROSCOPIC COLITIS [employer] CONVERTED SPECIMENS RANDOM DUODENUM, BIOPSY GASTRIC, BIOPSY RANDOM TERMINAL ILEUM, BIOPSY COLON, BIOPSY COPATHPLUS CONVERTED COMPLETE REPORT Specimen originated from [facility] Specimen #: [id number] Submitting Physician: SADA SNYDER MD, MPH FINAL [...] in three cassettes. Gross examination performed at [facility], [address] [place] [address] 11/07/2020 10:52:00 PM Date of Report: 11/11/2020 Date of Procedure: 11/07/2020 Date of Receipt: 11/07/2020 Submitted by: SADA SNYDER MD, MPH Location: L010 Diagnostic interpretation performed at [facility], [address] [place] [address]. [place] Number: [id number] [facility] CONVERTED ORDERING PROVIDER Ordering Provider: SADA SUAREZ Lab Results - CONVERTED SURGICAL PATHOLOGY (11/07/2020 [...] EDT) Lab Result (more content not included)... [facility] XR Chest PA and Lateralon IMPRESSION: No acute cardiopulmonary process. Kitchen Supervisor: [employer]SC[employer] Transcribe Date/Time: Feb 05 2020 12:13P Dictated by : AURE MACKAY MD This examination was interpreted and the report reviewed and electronically signed by: AURE MACKAY MD on Feb 05 2020 12:15PM [facility] DIVISION OF RADIOLOGY * * *Final Report* [...] structures are intact DIVISION OF RADIOLOGY Provider, [facility] - 02/05/2020 * * *Final Report* * [...] intact IMPRESSION IMPRESSION: No acute cardiopulmonary process. Kitchen Supervisor: FILI Transcribe Date/Time: Feb 05 2020 12:13P Dictated by : AURE MACKAY MD This examination was interpreted and the report reviewed and electronically signed by: AURE MACKAY MD on Feb 05 2020 12:15PM EST [facility] Radiology Study observation (narrative) [facility] XR Chest PA and LateralOrder ed By: Ccf Provider on 02-05-[address] [facility] Vital Signs Date Time Vital Sign Value Performing Clinician Facility 08-30-2024 09:56-0400 Body height 172.72 cm Ashley Gomez NP-C Work Phone: [facility] 08-30-2024 09:56-0400 Body mass index (BMI) [Ratio] 36.8 kg/m2 Ashley Gomez SURVEY DIRECTOR-C Work Phone: [facility] 08-30-2024 09:56-0400 Body weight 109.93 kg Ashley Gomez SURVEY DIRECTOR-C Work Phone: [facility] 08-30-2024 09:56-0400 Diastolic blood pressure 61 mm[Hg] Ashley Gomez SURVEY DIRECTOR-C Work Phone: [facility] 08-30-2024 09:56-0400 Systolic blood pressure 97 mm[Hg] Ashley Gomez SURVEY DIRECTOR-C Work Phone: [facility] 05-17-2024 09:30-0500 Diastolic blood pressure 72 mm[Hg] Ashley Gomez MEDICAL RECORDS MANAGER - REGISTERED VETERINARY TECHNICIAN Work Phone: [facility] 05-17-2024 09:30-0500 Systolic blood pressure 136 mm[Hg] Ashley Gomez MEDICAL RECORDS MANAGER - REGISTERED VETERINARY TECHNICIAN Work Phone: [facility] 05-17-2024 09:12-0500 Body height 172.7 cm Ashley Gomez MEDICAL RECORDS MANAGER - REGISTERED VETERINARY TECHNICIAN Work Phone: [facility] 05-17-2024 09:12-0500 Body mass index (BMI) [Ratio] 37.5 kg/m2 Ashley Gomez MEDICAL RECORDS MANAGER - REGISTERED VETERINARY TECHNICIAN Work Phone: [facility] 05-17-2024 09:12-0500 Body weight 111.86 kg Ashley Gomez MEDICAL RECORDS MANAGER - REGISTERED VETERINARY TECHNICIAN Work Phone: [facility] 05-17-2024 09:12-0500 Heart rate 93 /min Ashley Gomez MEDICAL RECORDS MANAGER - REGISTERED VETERINARY TECHNICIAN Work Phone: [facility] 05-17-2024 09:12-0500 SaO2% (BldA) [Mass fraction] 96 % Ashley Jason MEDICAL RECORDS MANAGER - REGISTERED VETERINARY TECHNICIAN Work Phone: [facility] 12-22-2023 09:03-0400 Body height 172.7 cm Fallon Pop MD Work Phone: [facility] 12-22-2023 09:03-0400 Body mass index (BMI) [Ratio] 37.24 kg/m2 Fallon Pop MD Work Phone: [facility] 12-22-2023 09:03-0400 Body temperature 96.6 [degF] Fallon Pop MD Work Phone: [facility] 12-22-2023 09:03-0400 Body weight 111.1 kg Fallon Pop MD Work Phone: [facility] 12-22-2023 09:03-0400 Diastolic blood pressure 75 mm[Hg] Fallon Pop MD Work Phone: [facility] 12-22-2023 09:03-0400 Heart rate 97 /min Fallon Pop MD Work Phone: [facility] 12-22-2023 09:03-0400 Systolic blood pressure 114 mm[Hg] Fallon Pop MD Work Phone: [facility] 11-10-2023 10:20-0400 Diastolic blood pressure 74 mm[Hg] Ashley Gomez MEDICAL RECORDS MANAGER - REGISTERED VETERINARY TECHNICIAN Work Phone: [facility] 11-10-2023 10:20-0400 Systolic blood pressure 128 mm[Hg] Ashley Gomez MEDICAL RECORDS MANAGER - REGISTERED VETERINARY TECHNICIAN Work Phone: [facility] 11-10-2023 09:55-0400 Body height 172.7 cm Ashley Gomez MEDICAL RECORDS MANAGER - REGISTERED VETERINARY TECHNICIAN Work Phone: [facility] 11-10-2023 09:55-0400 Body mass index (BMI) [Ratio] 36.34 kg/m2 Ashley Gomez MEDICAL RECORDS MANAGER - REGISTERED VETERINARY TECHNICIAN Work Phone: [facility] 11-10-2023 09:55-0400 Body weight 108.41 kg Ashley Gomez MEDICAL RECORDS MANAGER - REGISTERED VETERINARY TECHNICIAN Work Phone: [facility] 11-10-2023 09:55-0400 Heart rate 80 /min Ashley Gomez MEDICAL RECORDS MANAGER - REGISTERED VETERINARY TECHNICIAN Work Phone: [facility] 11-10-2023 09:55-0400 SaO2% (BldA) [Mass fraction] 98 % Ashley Gomez MEDICAL RECORDS MANAGER - REGISTERED VETERINARY TECHNICIAN Work Phone: [facility] 10-18-2023 15:55-0400 Diastolic blood pressure 72 mm[Hg] Cachorro Cobb DO Work Phone: [facility] 10-18-2023 15:55-0400 Heart rate 78 /min Cachorro Cobb DO Work Phone: [facility] 10-18-2023 15:55-0400 Respiratory rate 14 /min Cachorro Cobb DO Work Phone: [facility] 10-18-2023 15:55-0400 SaO2% (BldA) [Mass fraction] 98 % Cachorro Cobb DO Work Phone: [employer] 10-18-2023 15:55-0400 Systolic blood pressure 119 mm[Hg] Cachorro Cobb DO Work Phone: [facility] 10-18-2023 12:38-0400 Body mass index (BMI) [Ratio] 36.49 kg/m2 Cachorro Cobb DO Work Phone: [facility] 10-18-2023 12:38-0400 Body temperature 98.01 [degF] Cachorro Cobb DO Work Phone: [facility] 10-18-2023 12:38-0400 Body weight 108.86 kg Cachorro Cobb DO Work Phone: [facility] 07-14-2023 09:43-0400 Body height 172.[address] Geeta Hickman Work Phone: [facility] 07-14-2023 09:29-0400 Body mass index (BMI) [Ratio] 36.2 kg/m2 Dr. Geeta Hickman Work Phone: [facility] 07-14-2023 09:29-0400 Body weight 108.[address] Geeta Hickman Work Phone: [facility] 07-14-2023 09:29-0400 Diastolic blood pressure 82 mm[Hg] Dr. Geeta Hickman Work Phone: [facility] 07-14-2023 09:29-0400 Systolic blood pressure 124 mm[Hg] Dr. Geeta Hickman Work Phone: [facility] 07-08-2023 08:51-0400 Body height 172.7 cm Maria Elena Carvajal APRN.REGISTERED VETERINARY TECHNICIAN Work Phone: [facility] 07-08-2023 08:51-0400 Body weight 108 kg Maria Elena Carvajal APRN.REGISTERED VETERINARY TECHNICIAN Work Phone: [facility] 07-08-2023 08:51-0400 Diastolic blood pressure 79 mm[Hg] Maria Elena Carvajal APRN.REGISTERED VETERINARY TECHNICIAN Work Phone: [facility] 07-08-2023 08:51-0400 Heart rate 97 /min Maria Elena Carvajal APRN.REGISTERED VETERINARY TECHNICIAN Work Phone: [facility] 07-08-2023 08:51-0400 Systolic blood pressure 134 mm[Hg] Maria Elena Carvajal APRN.REGISTERED VETERINARY TECHNICIAN Work Phone: [facility] 07-05-2023 14:16-0400 Body temperature 98 [degF] Dr. Geeta Hickman Work Phone: [facility] 07-05-2023 14:16-0400 Diastolic blood pressure 82 mm[Hg] Dr. Geeta Hickman Work Phone: [facility] 07-05-2023 14:16-0400 Heart rate 77 /min Dr. Geeta Hickman Work Phone: [facility] 07-05-2023 14:16-0400 Respiratory rate 16 /min Dr. Geeta Hickman Work Phone: [facility] 07-05-2023 14:16-0400 SaO2% (BldA) [Mass fraction] 98 % Dr. Geeta Hickman Work Phone: [facility] 07-05-2023 14:16-0400 Systolic blood pressure 146 mm[Hg] Dr. Geeta Hickman Work Phone: [facility] 07-05-2023 10:57-0400 Body height 172.[address] Geeta Hickman Work Phone: [facility] 07-05-2023 10:57-0400 Body mass index (BMI) [Ratio] 35.2 kg/m2 Dr. Geeta Hickman Work Phone: [facility] 07-05-2023 10:57-0400 Body weight 105.[address] Geeta Hickman Work Phone: [facility] 07-04-2023 11:00-0400 Body temperature 97.5 [degF] Dr. Geeta Hickman Work Phone: [facility] 07-04-2023 11:00-0400 Diastolic blood pressure 57 mm[Hg] Dr. Geeta Hickman Work Phone: [facility] 07-04-2023 11:00-0400 Heart rate 88 /min Dr. Geeta Hickman Work Phone: [facility] 07-04-2023 11:00-0400 Respiratory rate 16 /min Dr. Geeta Hickman Work Phone: [facility] 07-04-2023 11:00-0400 SaO2% (BldA) [Mass fraction] 97 % Dr. Geeta Hickman Work Phone: [facility] 07-04-2023 11:00-0400 Systolic blood pressure 115 mm[Hg] Dr. Geeta Hickman Work Phone: [facility] 07-04-2023 07:28-0400 Body height 172.[address] Geeta Hickman Work Phone: [facility] 07-04-2023 07:28-0400 Body mass index (BMI) [Ratio] 36.5 kg/m2 Dr. Geeta Hickman Work Phone: [facility] 07-04-2023 07:28-0400 Body weight [address] Geeta Hickman Work Phone: [facility] 06-18-2023 09:33-0400 Body mass index (BMI) [Ratio] 37.13 kg/m2 Ashley Gmoez MEDICAL RECORDS MANAGER - REGISTERED VETERINARY TECHNICIAN Work Phone: [facility] 06-18-2023 09:33-0400 Body weight 110.77 kg Ashley Gomez MEDICAL RECORDS MANAGER - REGISTERED VETERINARY TECHNICIAN Work Phone: [facility] 06-18-2023 09:33-0400 Diastolic blood pressure 74 mm[Hg] Ashley Gomez MEDICAL RECORDS MANAGER - REGISTERED VETERINARY TECHNICIAN Work Phone: [facility] 06-18-2023 09:33-0400 Heart rate 79 /min Ashley Gomez MEDICAL RECORDS MANAGER - REGISTERED VETERINARY TECHNICIAN Work Phone: [facility] 06-18-2023 09:33-0400 SaO2% (BldA) [Mass fraction] 98 % Ashley Gomez MEDICAL RECORDS MANAGER - REGISTERED VETERINARY TECHNICIAN Work Phone: [facility] 06-18-2023 09:33-0400 Systolic blood pressure 118 mm[Hg] Ashley Gomez MEDICAL RECORDS MANAGER - REGISTERED VETERINARY TECHNICIAN Work Phone: [facility] 06-10-2023 08:09-0400 Body temperature 97.4 [degF] Dr. Geeta Hickman Work Phone: [facility] 06-10-2023 08:09-0400 Diastolic blood pressure 83 mm[Hg] Dr. Geeta Hickman Work Phone: [facility] 06-10-2023 08:09-0400 Heart rate 76 /min Dr. Geeta Hickman Work Phone: [facility] 06-10-2023 08:09-0400 Respiratory rate 16 /min Dr. Geeta Hickman Work Phone: [facility] 06-10-2023 08:09-0400 SaO2% (BldA) [Mass fraction] 97 % Dr. Geeta Hickman Work Phone: [facility] 06-10-2023 08:09-0400 Systolic blood pressure 126 mm[Hg] Dr. Geeta Hickman Work Phone: [facility] 06-10-2023 06:25-0400 Body height 172.[address] Geeta Hickman Work Phone: [facility] 06-10-2023 06:25-0400 Body mass index (BMI) [Ratio] 37.2 kg/m2 Dr. Geeta Hickman Work Phone: [facility] 06-10-2023 06:25-0400 Body weight [address] Geeta Hickman Work Phone: [facility] 04-28-2023 10:04-0500 Body height 172.7 cm Ashley Gomez MEDICAL RECORDS MANAGER - REGISTERED VETERINARY TECHNICIAN Work Phone: [facility] 04-28-2023 10:04-0500 Body mass index (BMI) [Ratio] 36.49 kg/m2 Ashley Gomez MEDICAL RECORDS MANAGER - REGISTERED VETERINARY TECHNICIAN Work Phone: [facility] 04-28-2023 10:04-0500 Body weight 108.86 kg Ashley Gomez MEDICAL RECORDS MANAGER - REGISTERED VETERINARY TECHNICIAN Work Phone: [facility] 04-28-2023 10:04-0500 Diastolic blood pressure 71 mm[Hg] Ashley Gomez MEDICAL RECORDS MANAGER - REGISTERED VETERINARY TECHNICIAN Work Phone: [facility] 04-28-2023 10:04-0500 Heart rate 92 /min Ashley Gomez MEDICAL RECORDS MANAGER - REGISTERED VETERINARY TECHNICIAN Work Phone: [facility] 04-28-2023 10:04-0500 SaO2% (BldA) [Mass fraction] 97 % Ashley Gomez MEDICAL RECORDS MANAGER - REGISTERED VETERINARY TECHNICIAN Work Phone: [facility] 04-28-2023 10:04-0500 Systolic blood pressure 139 mm[Hg] Ashley Gomez MEDICAL RECORDS MANAGER - REGISTERED VETERINARY TECHNICIAN Work Phone: [facility] 04-21-2023 19:18-0500 Body temperature 97.6 [degF] [facility] 04-21-2023 19:18-0500 Diastolic blood pressure 76 mm[Hg] [facility] 04-21-2023 19:18-0500 Heart rate 64 /min [facility] 04-21-2023 19:18-0500 Respiratory rate 16 /min [facility] 04-21-2023 19:18-0500 SaO2% (BldA) [Mass fraction] 99 % [facility] 04-21-2023 19:18-0500 Systolic blood pressure 134 mm[Hg] [facility] 04-21-2023 16:16-0500 Body mass index (BMI) [Ratio] 36.6 kg/m2 [facility] 04-21-2023 16:16-0500 Body weight 109.1 kg [facility] 04-21-2023 14:41-0500 Body height 172.72 cm [facility] 12-16-2022 10:39-0400 Body height 172.7 cm Ashley Gomez MEDICAL RECORDS MANAGER - REGISTERED VETERINARY TECHNICIAN Work Phone: [facility] 12-16-2022 10:39-0400 Body mass index (BMI) [Ratio] 33.3 kg/m2 Ashley Gomez MEDICAL RECORDS MANAGER - REGISTERED VETERINARY TECHNICIAN Work Phone: [facility] 12-16-2022 10:39-0400 Body weight 99.34 kg Ashley Gomez MEDICAL RECORDS MANAGER - REGISTERED VETERINARY TECHNICIAN Work Phone: [facility] 12-16-2022 10:39-0400 Diastolic blood pressure 72 mm[Hg] Ashley Gomez MEDICAL RECORDS MANAGER - REGISTERED VETERINARY TECHNICIAN Work Phone: [facility] 12-16-2022 10:39-0400 Heart rate 78 /min Ashley Gomez MEDICAL RECORDS MANAGER - REGISTERED VETERINARY TECHNICIAN Work Phone: [facility] 12-16-2022 10:39-0400 SaO2% (BldA) [Mass fraction] 97 % Ashley Gomez MEDICAL RECORDS MANAGER - REGISTERED VETERINARY TECHNICIAN Work Phone: [facility] 12-16-2022 10:39-0400 Systolic blood pressure 124 mm[Hg] Ashley Gomez MEDICAL RECORDS MANAGER - REGISTERED VETERINARY TECHNICIAN Work Phone: [facility] 10-30-2022 07:50-0400 Body height 172.7 cm Ashley Gomez MEDICAL RECORDS MANAGER - REGISTERED VETERINARY TECHNICIAN Work Phone: [facility] 10-30-2022 07:50-0400 Body mass index (BMI) [Ratio] 33.3 kg/m2 Ashley Gomez MEDICAL RECORDS MANAGER - REGISTERED VETERINARY TECHNICIAN Work Phone: [facility] 10-30-2022 07:50-0400 Body weight 99.34 kg Ashley Gomez MEDICAL RECORDS MANAGER - REGISTERED VETERINARY TECHNICIAN Work Phone: [facility] 10-30-2022 07:50-0400 Diastolic blood pressure 66 mm[Hg] Ashley Gomez MEDICAL RECORDS MANAGER - REGISTERED VETERINARY TECHNICIAN Work Phone: [facility] 10-30-2022 07:50-0400 Heart rate 80 /min Ashley Gomez MEDICAL RECORDS MANAGER - REGISTERED VETERINARY TECHNICIAN Work Phone: [facility] 10-30-2022 07:50-0400 SaO2% (BldA) [Mass fraction] 98 % Ashley Gomez MEDICAL RECORDS MANAGER - REGISTERED VETERINARY TECHNICIAN Work Phone: [facility] 10-30-2022 07:50-0400 Systolic blood pressure 118 mm[Hg] Ashley Gomez TERE Abbasi CNP Work Phone: [facility] 08-20-2022 13:35-0400 Body height 172.[address] Geeta Hickman Work Phone: [facility] 07-10-2022 09:05-0400 Body height 172.[address] Geeta Hickman Work Phone: [facility] 07-10-2022 09:05-0400 Body mass index (BMI) [Ratio] 36.1 kg/m2 Dr. Geeta Hickman Work Phone: [facility] 07-10-2022 09:05-0400 Body temperature 97.5 [degF] Dr. Geeta Hickman Work Phone: [facility] 07-10-2022 09:05-0400 Body weight 107.[address] Geeta Hickman Work Phone: [facility] 07-10-2022 09:05-0400 Diastolic blood pressure 82 mm[Hg] Dr. Geeta Hickman Work Phone: [facility] 07-10-2022 09:05-0400 Heart rate 86 /min Dr. Geeta Hickman Work Phone: [facility] 07-10-2022 09:05-0400 Respiratory rate 18 /min Dr. Geeta Hickman Work Phone: [facility] 07-10-2022 09:05-0400 SaO2% (BldA) [Mass fraction] 96 % Dr. Geeta Hickman Work Phone: [facility] 07-10-2022 09:05-0400 Systolic blood pressure 130 mm[Hg] Dr. Geeta Hickman Work Phone: [facility] 07-08-2022 09:26-0400 Body mass index (BMI) [Ratio] 36.8 kg/m2 Dr. Geeta Hickman Work Phone: [facility] 07-08-2022 09:26-0400 Body weight 109.[address] Geeta Hickman Work Phone: [facility] 07-08-2022 09:26-0400 Diastolic blood pressure 80 mm[Hg] Dr. Geeta Hickman Work Phone: [facility] 07-08-2022 09:26-0400 Systolic blood pressure 128 mm[Hg] Dr. Geeta Hickman Work Phone: [facility] 06-24-2022 10:06-0400 Body mass index (BMI) [Ratio] 36.5 kg/m2 Dr. Geeta Hickman Work Phone: [facility] 06-24-2022 10:06-0400 Body temperature 95.4 [degF] Dr. Geeta Hickman Work Phone: [facility] 06-24-2022 10:06-0400 Body weight 108.[address] Geeta Hickman Work Phone: [facility] 06-24-2022 10:06-0400 Diastolic blood pressure 82 mm[Hg] Dr. Geeta Hickman Work Phone: [facility] 06-24-2022 10:06-0400 Heart rate 92 /min Dr. Geeta Hickman Work Phone: [facility] 06-24-2022 10:06-0400 Respiratory rate 18 /min Dr. Geeta Hickman Work Phone: [facility] 06-24-2022 10:06-0400 SaO2% (BldA) [Mass fraction] 98 % Dr. Geeta Hickman Work Phone: [facility] 06-24-2022 10:06-0400 Systolic blood pressure 134 mm[Hg] Dr. Geeta Hickman Work Phone: [facility] 06-16-2022 01:29-0400 Heart rate 89 /min Dr. Geeta Hickman Work Phone: [facility] 06-16-2022 01:29-0400 Respiratory rate 18 /min Dr. Geeta Hickman Work Phone: [facility] 06-16-2022 01:29-0400 SaO2% (BldA) [Mass fraction] 100 % Dr. Geeta Hickman Work Phone: [facility] 06-15-2022 22:12-0400 Body height 172.[address] Geeta Hickman Work Phone: [facility] 06-15-2022 22:12-0400 Body mass index (BMI) [Ratio] 36.8 kg/m2 Dr. Geeta Hickman Work Phone: [facility] 06-15-2022 22:12-0400 Body temperature 98.8 [degF] Dr. Geeta Hickman Work Phone: [facility] 06-15-2022 22:12-0400 Body weight [address] Geeta Hickman Work Phone: [facility] 06-15-2022 22:12-0400 Diastolic blood pressure 104 mm[Hg] Dr. Geeta Hickman Work Phone: [facility] 06-15-2022 22:12-0400 Systolic blood pressure 127 mm[Hg] Dr. Geeta Hickman Work Phone: [facility] 06-15-2022 11:05-0400 Body temperature 97.81 [degF] Nadia Bolanos PA-C Work Phone: [facility] 06-15-2022 11:05-0400 Body weight 109.77 kg Nadia Bolanos PA-C Work Phone: [facility] 06-15-2022 11:05-0400 Diastolic blood pressure 78 mm[Hg] Nadia Bogner PA-C Work Phone: [facility] 06-15-2022 11:05-0400 Heart rate 110 /min Nadia Bogner PA-C Work Phone: [facility] 06-15-2022 11:05-0400 Respiratory rate 20 /min Nadia Bogner PA-C Work Phone: [facility] 06-15-2022 11:05-0400 SaO2% (BldA) [Mass fraction] 96 % Nadia Bogner PA-C Work Phone: [facility] 06-15-2022 11:05-0400 Systolic blood pressure 136 mm[Hg] Nadia Bogner PA-C Work Phone: [facility] 06-09-2022 06:48-0400 Body temperature 97.6 [degF] Dr. Geeta Hickman Work Phone: [facility] 06-09-2022 06:48-0400 Diastolic blood pressure 84 mm[Hg] Dr. Geeta Hickman Work Phone: [facility] 06-09-2022 06:48-0400 Heart rate 112 /min Dr. Geeta Hickman Work Phone: [facility] 06-09-2022 06:48-0400 Respiratory rate 15 /min Dr. Geeta Hickman Work Phone: [facility] 06-09-2022 06:48-0400 SaO2% (BldA) [Mass fraction] 98 % Dr. Geeta Hickman Work Phone: [facility] 06-09-2022 06:48-0400 Systolic blood pressure 122 mm[Hg] Dr. Geeta Hickman Work Phone: [facility] 06-03-2022 15:19-0500 Body height 172.[address] Geeta Hickman Work Phone: [facility] 06-03-2022 15:19-0500 Body mass index (BMI) [Ratio] 36.2 kg/m2 Dr. Geeta Hickman Work Phone: [facility] 06-03-2022 15:19-0500 Body weight 108.[address] Geeta Hickman Work Phone: [facility] 06-03-2022 15:19-0500 Diastolic blood pressure 82 mm[Hg] Dr. Geeta Hickman Work Phone: [facility] 06-03-2022 15:19-0500 Systolic blood pressure 120 mm[Hg] Dr. Geeta Hickman Work Phone: [facility] 05-20-2022 07:38-0500 Body height 172.[address] Geeta Hickman Work Phone: [facility] 05-20-2022 07:38-0500 Body mass index (BMI) [Ratio] 36.1 kg/m2 Dr. Geeta Hickman Work Phone: [facility] 05-20-2022 07:38-0500 Body temperature 96 [degF] Dr. Geeta Hickman Work Phone: [facility] 05-20-2022 07:38-0500 Body weight 107.[address] Geeta Hickman Work Phone: [facility] 05-20-2022 07:38-0500 Diastolic blood pressure 80 mm[Hg] Dr. Geeta Hickman Work Phone: [facility] 05-20-2022 07:38-0500 Heart rate 86 /min Dr. Geeta Hickman Work Phone: [facility] 05-20-2022 07:38-0500 Respiratory rate 16 /min Dr. Geeta Hickman Work Phone: [facility] 05-20-2022 07:38-0500 SaO2% (BldA) [Mass fraction] 99 % Dr. Geeta Hickman Work Phone: [facility] 05-20-2022 07:38-0500 Systolic blood pressure 122 mm[Hg] Dr. Geeta Hickman Work Phone: [facility] 05-05-2022 06:42-0500 Body height 172.[address] Geeta Hickman Work Phone: [facility] 05-05-2022 06:42-0500 Body mass index (BMI) [Ratio] 36.1 kg/m2 Dr. Geeta Hickman Work Phone: [facility] 05-05-2022 06:42-0500 Body temperature 96.5 [degF] Dr. Geeta Hickman Work Phone: [facility] 05-05-2022 06:42-0500 Body weight 107.[address] Geeta Hickman Work Phone: [facility] 05-05-2022 06:42-0500 Diastolic blood pressure 82 mm[Hg] Dr. Geeta Hickman Work Phone: [facility] 05-05-2022 06:42-0500 Heart rate 84 /min Dr. Geeta Hickman Work Phone: [facility] 05-05-2022 06:42-0500 Respiratory rate 18 /min Dr. Geeta Hickman Work Phone: [facility] 05-05-2022 06:42-0500 SaO2% (BldA) [Mass fraction] 97 % Dr. Geeta iHckman Work Phone: [facility] 05-05-2022 06:42-0500 Systolic blood pressure 124 mm[Hg] Dr. Geeta Hickman Work Phone: [facility] 04-01-2022 10:07-0500 Body height 172.[address] Geeta Hickman Work Phone: [facility] 01-04-2023 10:07-0500 Body mass index (BMI) [Ratio] 36.1 kg/m2 Dr. Geeta Hickman Work Phone: [facility] 04-01-2022 10:07-0500 Body temperature 96.8 [degF] Dr. Geeta Hickman Work Phone: [facility] 04-01-2022 10:07-0500 Body weight 107.[address] Geeta Hickman Work Phone: [facility] 04-01-2022 10:07-0500 Diastolic blood pressure 84 mm[Hg] Dr. Geeta Hickman Work Phone: [facility] 04-01-2022 10:07-0500 Heart rate 95 /min Dr. Geeta Hickman Work Phone: [facility] 04-01-2022 10:07-0500 Respiratory rate 16 /min Dr. Geeta Hickman Work Phone: [facility] 04-01-2022 10:07-0500 SaO2% (BldA) [Mass fraction] 97 % Dr. Geeta Hicmkan Work Phone: [facility] 04-01-2022 10:07-0500 Systolic blood pressure 108 mm[Hg] Dr. Geeta Hickman Work Phone: [facility] 02-19-2022 19:35-0500 Respiratory rate 18 /min Dr. Ashok Siu Work Phone: [facility] 02-19-2022 18:11-0500 Body height 172.[address] Ashok Siu Work Phone: [facility] Work Phone: 02-19-2022 18:11-0500 Body mass index (BMI) [Ratio] 35.7 kg/m2 Dr. Ashok Siu Work Phone: [facility] 02-19-2022 18:11-0500 Body temperature 97.3 [degF] Dr. Ashok Siu Work Phone: [facility] 02-19-2022 18:11-0500 Body weight 106.[address] Ashok Siu Work Phone: [facility] 02-19-2022 18:11-0500 Diastolic blood pressure 98 mm[Hg] Dr. Ashok Siu Work Phone: [facility] 02-19-2022 18:11-0500 Heart rate 95 /min Dr. Ashok Siu Work Phone: [facility] 02-19-2022 18:11-0500 SaO2% (BldA) [Mass fraction] 97 % Dr. Ashok Siu Work Phone: [facility] 02-19-2022 18:11-0500 Systolic blood pressure 165 mm[Hg] Dr. Ashok Siu Work Phone: [facility] 01-05-2022 19:00-0400 Body temperature 98.2 [degF] Ashley Owens APRN.REGISTERED VETERINARY TECHNICIAN Work Phone: [facility] 01-05-2022 19:00-0400 Body weight 108.32 kg Ashley Owens APRN.REGISTERED VETERINARY TECHNICIAN Work Phone: [facility] 01-05-2022 19:00-0400 Diastolic blood pressure 86 mm[Hg] Ashley Owens APRN.REGISTERED VETERINARY TECHNICIAN Work Phone: [facility] 01-05-2022 19:00-0400 Heart rate 89 /min Ashley Owens APRN.REGISTERED VETERINARY TECHNICIAN Work Phone: [facility] 01-05-2022 19:00-0400 Respiratory rate 20 /min Ashley Owens APRN.REGISTERED VETERINARY TECHNICIAN Work Phone: [facility] 01-05-2022 19:00-0400 SaO2% (BldA) [Mass fraction] 98 % Ashley Owens APRN.REGISTERED VETERINARY TECHNICIAN Work Phone: [facility] 01-05-2022 19:00-0400 Systolic blood pressure 128 mm[Hg] Ashley Owens APRN.REGISTERED VETERINARY TECHNICIAN Work Phone: [facility] 12-24-2021 08:33-0400 Body height 172.[address] Ashok Siu Work Phone: [facility] Work Phone: 12-24-2021 08:33-0400 Body mass index (BMI) [Ratio] 35.7 kg/m2 Dr. Ashok Siu Work Phone: [facility] 12-24-2021 08:33-0400 Body temperature 98.4 [degF] Dr. Ashok Siu Work Phone: [facility] 12-24-2021 08:33-0400 Body weight 106.[address] Ashok Siu Work Phone: [facility] 12-24-2021 08:33-0400 Diastolic blood pressure 88 mm[Hg] Dr. Ashok Siu Work Phone: [facility] 12-24-2021 08:33-0400 Heart rate 86 /min Dr. Ashok Siu Work Phone: [facility] 12-24-2021 08:33-0400 Respiratory rate 14 /min Dr. Ashok Siu Work Phone: [facility] 12-24-2021 08:33-0400 SaO2% (BldA) [Mass fraction] 98 % Dr. Ashok Siu Work Phone: [facility] 12-24-2021 08:33-0400 Systolic blood pressure 134 mm[Hg] Dr. Ashok Siu Work Phone: [facility] 11-05-2021 11:29-0400 Body mass index (BMI) [Ratio] 35.7 kg/m2 Dr. Ashok Siu Work Phone: [facility] Work Phone: 11-05-2021 11:29-0400 Body mass index (BMI) [Ratio] 35.6 kg/m2 Dr. Ashok Siu Work Phone: [facility] Work Phone: 11-05-2021 11:29-0400 Body temperature 98.3 [degF] Dr. Ashok Siu Work Phone: [facility] Work Phone: 11-05-2021 11:29-0400 Body weight 106.[address] Ashok Siu Work Phone: [facility] Work Phone: 11-05-2021 11:29-0400 Body weight 106.[address] Ashok Siu Work Phone: [facility] Work Phone: 11-05-2021 11:29-0400 Diastolic blood pressure 76 mm[Hg] Dr. Ashok Siu Work Phone: [facility] Work Phone: 11-05-2021 11:29-0400 Heart rate 89 /min Dr. Ashok Siu Work Phone: [facility] Work Phone: 11-05-2021 11:29-0400 Respiratory rate 14 /min Dr. Ashok Siu Work Phone: [facility] Work Phone: 11-05-2021 11:29-0400 SaO2% (BldA) [Mass fraction] 98 % Dr. Ashok Siu Work Phone: [facility] Work Phone: 11-05-2021 11:29-0400 Systolic blood pressure 128 mm[Hg] Dr. Ashok Siu Work Phone: [facility] Work Phone: 10-29-2021 14:58-0400 Body mass index (BMI) [Ratio] 35.4 kg/m2 Dr. Ashok Siu Work Phone: [facility] Work Phone: 10-29-2021 14:58-0400 Body temperature 97.6 [degF] Dr. Ashok Siu Work Phone: [facility] Work Phone: 10-29-2021 14:58-0400 Body weight 105.[address] Ashok Siu Work Phone: [facility] Work Phone: 10-29-2021 14:58-0400 Diastolic blood pressure 82 mm[Hg] Dr. Ashok Siu Work Phone: [facility] Work Phone: 10-29-2021 14:58-0400 Heart rate 91 /min Dr. Ashok Siu Work Phone: [facility] Work Phone: 10-29-2021 14:58-0400 Respiratory rate 16 /min Dr. Ashok Siu Work Phone: [facility] Work Phone: 10-29-2021 14:58-0400 SaO2% (BldA) [Mass fraction] 97 % Dr. Ashok Siu Work Phone: [facility] Work Phone: 10-29-2021 14:58-0400 Systolic blood pressure 124 mm[Hg] Dr. Ashok Siu Work Phone: [facility] Work Phone: 09-07-2021 12:53-0400 Body temperature 97.4 [degF] Dr. Ashok Siu Work Phone: [facility] Work Phone: 09-07-2021 12:53-0400 Diastolic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 Screening mammography Daniel Hickman Work Phone: Start: 04-21-2023 Computed tomography of abdomen and pelvis with intravenous contrast Start: 11-20-2022 Gastric emptying bipin ging study Matty Linq[employer] Work Phone: Start: 11-11-2022 HOUSE ACCOUNT TRACKI NG (QUEST) [facility] Work Phone: Start: 10-30-2022 Lipid 1996 panel - S mansi or Plasma [facility] Work Phone: Start: 09-16-[address] Kinsey Hickman Work Phone: Start: 09-16-[address] Geeta Hickman Work Phone: Start: 07-16-2022 HM PAP SMEAR Historical Provider Work Phone: Start: 07-16-2022 Microscopic observat ion [Identifier] in Cervix by Cyto stain Ashley Gomez MEDICAL RECORDS MANAGER - REGISTERED VETERINARY TECHNICIAN Work Phone: Start: 07-13-2022 Bordatella pertussis DNA [...] et rgnt auto w/o microscopy Lee Rios MEDICAL RECORDS MANAGER.REGISTERED VETERINARY TECHNICIAN Work Phone: Start: 12-16-2021 MRI of brain without contrast Dr. Ashok Siu Work Phone: Start: 11-05-2021 Radiologic examinati on of knee Dr. Ashok Siu Work Phone: Start: 07-21-2021 Radiography of esophagus Start: 04-28-2021 Screening mammography Start: 11-07-2020 HM COLONOSCOPY Jaredic oswaldo Nixon MD Work Phone: Start: 11-07-2020 Colonoscopy Ashley Owens MEDICAL RECORDS MANAGER.REGISTERED VETERINARY TECHNICIAN Work Phone: Start: 02-05-2020 Radiologic exam ches t 2 views Analilia Ribeiro MEDICAL RECORDS MANAGER.REGISTERED VETERINARY TECHNICIAN Work Phone: Start: 02-23-2014 Lipid 1996 panel [...] for Adults (1 - 1-dose 75+ series) [facility] Start: 2036 RSV Immunization aged 60 or older (1 - 1-dose 60+ series) RSV Immunization aged 60 or older (1 - 1-dose 60+ series) [facility] Start: 10-30-2032 DTaP/Tdap/Td Vaccines (2 - Td or Tdap) DTaP/Tdap/Td Vaccines (2 - Td or Tdap) [facility] Start: 10-30-2032 Urine microalbumin profile DTaP,Tdap,Td Vaccine (3 - Td or Tdap) [facility] Start: 11-07-2030 Screening for malignant neoplasm of colon [facility] Start: 05-17-2029 Lipid panel Lipid Panel [facility] Start: 11-09-2028 Lipid panel [facility] Start: 07-13-2028 Screening for malignant neoplasm of cervix [facility] Start: 10-31-2027 Lipid panel [facility] Start: 08-31-2027 Screening for malignant neoplasm of cervix Pap Smear [facility] Start: 2026 Zoster Vaccines (1 of 2) Zoster Vaccines (1 of 2) [facility] Start: 12-21-2026 Diabetes Screening Diabetes Screening [facility] Start: 04-28-2026 Diabetes mellitus screening Diabetes Screening [facility] Start: 04-28-2026 Diabetes Screening Diabetes Screening [facility] Start: 11-11-2025 Diabetes mellitus screening Diabetes Screening [facility] Start: 11-07-2025 Screening for malignant neoplasm of colon [facility] Start: 07-16-2025 Screening for malignant neoplasm of cervix [facility] Start: 05-03-2025 Screening for malignant neoplasm of breast Mammogram [facility] Start: 11-27-2024 Influenza vaccination Influenza Vaccine (#1) [facility] Start: 11-15-2024 End: 11-15-2024 Patient encounter procedure 11/15/2024 9:40 AM EDT Office Visit [facility] [address] [place] [address] [place] [address] Ashley Gomez, MEDICAL RECORDS MANAGER - REGISTERED VETERINARY TECHNICIAN [address] [place] [address] [facility] Start: 11-14-2024 Depression Monitoring Depression Monitoring [facility] Start: 08-18-2024 End: 08-18-2024 Telemedicine consultation with patient 08/18/2024 1:20 PM EDT [facility] [address] [place] [address] [place] [address] Ashley Gomez, MEDICAL RECORDS MANAGER - REGISTERED VETERINARY TECHNICIAN [address] [place] [address] [facility] Start: 05-17-2024 End: 05-16-2025 25-hydroxyvitamin D3 [Mass/volume] in Serum or Plasma Vitamin D Deficiency Screening (Vit D 25) Lab Routine Vitamin D deficiency Expected: 05/17/2024 (Approximate), Expires: 05/16/2025 [facility] Comment on above: Expected: 05/17/2024 (Approximate), Expi [...] cholesterol level Expected: 05/17/2024 (Approximate), Expires: 05/16/2025 [facility] Comment on above: Expected: 05/17/2024 (Approximate), Expi res: 05/16/2025 Start: 05-17-2024 End: 05-16-2025 Lipid 1996 panel - Serum or Plasma Lipid panel Lab Routine Elevated LDL cholesterol level Expected: 05/17/2024 (Approximate), Expires: 05/16/2025 [facility] Work Phone: Comment on above: Expected: 05/17/2024 (Approximate), Expi res: 05/16/2025 Start: 05-17-2024 End: 05-17-2024 Patient encounter procedure [facility] Start: 05-12-2024 Depression Monitoring Depression Monitoring [facility] Start: 05-04-2024 Screening for malignant neoplasm of breast Mammogram [facility] Start: 04-28-2024 COVID-19 Vaccine () COVID-19 Vaccine () [facility] Comment on above: Postponed from 11/27/2022 (Patient Refus ed) Start: 04-28-2024 Diabetes mellitus screening Diabetes Screening [facility] Start: 03-15-2024 Depression Monitoring Depression Monitoring [facility] Start: 02-26-2024 Depression Monitoring Depression Monitoring [facility] Start: 02-25-2024 End: 02-25-2024 Telemedicine consultation with patient 02/25/2024 9:40 AM EST [facility] [address] [place] [address] Ashley Gomez, MEDICAL RECORDS MANAGER - REGISTERED VETERINARY TECHNICIAN [address] [place] [address] [facility] Start: 02-12-2024 Depression Monitoring Depression Monitoring [facility] Start: 12-22-2023 End: 12-22-2023 Patient encounter procedure 12/22/2023 9:00 AM EDT Office Visit Rheumatology [address] [address] Fallon Rivas MD [address] [place] [address] Acute perichondritis of pinna, right [H61.011] Rheumatology Comment on above: Acute perichondritis of pinna, right [H6 1.011] Start: 12-19-2023 Depression Monitoring Depression Monitoring [facility] Start: 12-19-2023 Depresssion Monitoring Depresssion Monitoring [facility] Start: 11-28-2023 Covid-19 Vaccine ( season) Covid-19 Vaccine ( season) [facility] Start: 11-28-2023 Influenza vaccination Influenza Vaccine (#1) [facility] Start: 11-10-2023 End: 11-09-2024 25-hydroxyvitamin D3 [Mass/volume] in Serum or Plasma Vitamin D Deficiency Screening (Vit D 25) Lab Routine Vitamin D deficiency Expected: 11/10/2023 (Approximate), Expires: 11/09/2024 [facility] Comment on above: Expected: 11/10/2023 (Approximate), Expi [...] diabetes mellitus Expected: 11/10/2023 (Approximate), Expires: 11/09/2024 [facility] Comment on above: Expected: 11/10/2023 (Approximate), Expi res: 11/09/2024 Start: 11-10-2023 End: 11-09-2024 Lipid 1996 panel - Serum or Plasma Lipid panel Lab Routine Screening for lipoid disorders Expected: 11/10/2023 (Approximate), Expires: 11/09/2024 [facility] Work Phone: Comment on above: Expected: 11/10/2023 (Approximate), Expi res: 11/09/2024 Start: 11-10-2023 End: 11-10-2023 Patient encounter procedure 11/10/2023 9:00 AM EDT Office Visit [facility] [address] [place] [address] Cornell Holden MD [address] [place] [address] [facility] Start: 11-08-2023 End: 11-08-2023 Patient encounter procedure 11/08/2023 12:30 PM EDT Appointment [facility] Nuclear Medicine [address] [place] [id number] Christa Wong MEDICAL RECORDS MANAGER - REGISTERED VETERINARY TECHNICIAN [address] [place] [id number] [facility] Nuclear Medicine Start: 11-03-2023 End: 11-03-2023 Patient encounter procedure 11/03/2023 9:20 AM EDT Office Visit [facility] Family [facility] [address] [place] [address] Ashley Gomez, MEDICAL RECORDS MANAGER - REGISTERED VETERINARY TECHNICIAN [address] [place] [address] [facility] Start: 10-27-2023 Depresssion Monitoring Depresssion Monitoring [facility] Start: 10-27-2023 End: 10-26-2024 NM kidney flow/function w/wo lasix NM kidney flow/function w/wo lasix Imaging Routine Gross hematuria Left lower quadrant abdominal pain Other hydronephrosis Expected: 10/27/2023, Expires: 10/26/2024 [facility] Comment on above: Expected: 10/27/2023, Expires: Start: 10-17-2023 DIABETES SCREEN DIABETES SCREEN [facility] Start: 10-17-2023 Diabetes Screening Diabetes Screening [facility] Start: 10-15-2023 End: 10-29-2023 Bacteria identified in Urine by Culture Urine culture Microbiology Routine Gross hematuria Left lower quadrant abdominal pain Expected: 10/15/2023 (Approximate), Expires: 10/29/2023 [facility] Comment on above: Expected: 10/15/2023 (Approximate), Expi res: 10/29/2023 Start: 10-15-2023 End: 04-16-2024 NM Renal Function Mag 3 with Lasix NM Renal Function Mag 3 with Lasix Procedure Routine Gross hematuria Left lower quadrant abdominal pain Other hydronephrosis Expected: 10/15/2023 (Approximate), Expires: 04/16/2024 [facility] Comment on above: Expected: 10/15/2023 (Approximate), Expi res: 04/16/2024 Start: 10-15-2023 End: 12-16-2023 US Retroperitoneum US retroperitoneum Imaging Routine Gross hematuria Left lower quadrant abdominal pain Expected: 10/15/2023, Expires: 12/16/2023 [facility] Work Phone: Comment on above: Expected: 10/15/2023, Expires: Start: 09-15-2023 End: 09-15-2023 Telemedicine consultation with patient 09/15/2023 11:00 AM EDT Telemedicine [facility] [address] [place], [place] [id number] Ashley Gomez, MEDICAL RECORDS MANAGER - REGISTERED VETERINARY TECHNICIAN [address] [place], [place] [id number] [facility] Start: 08-27-2023 End: 08-27-2023 Telemedicine consultation with patient 08/27/2023 9:40 AM EDT Telemedicine [facility] [address] [place] [address] [place] [address] Ashley Gomez, MEDICAL RECORDS MANAGER - REGISTERED VETERINARY TECHNICIAN [address] [place] [address] [place] [address] [facility] Start: 08-13-2023 End: 08-13-2023 Telemedicine consultation with patient 08/13/2023 1:20 PM EDT Telemedicine [facility] [address] [place], [place] [id number] Ashley Gomez, MEDICAL RECORDS MANAGER - REGISTERED VETERINARY TECHNICIAN [address] [place], [place] [id number] [facility] Start: 07-21-2023 End: 07-21-2023 Patient encounter procedure 07/21/2023 9:40 AM EDT Office Visit [facility] [address] [place] [address] [place] [address] Ashley Gomez, MEDICAL RECORDS MANAGER - REGISTERED VETERINARY TECHNICIAN [address] [place] [address] [facility] Start: 07-08-2023 End: 10-07-2023 CYTOLOGY NON-DANCE CRITIC CYTOLOGY NON-DANCE CRITIC Lab Routine Gross hematuria Expected: 07/08/2023 (Approximate), Expires: 10/07/2023 [facility] Work Phone: Comment on above: Expected: 07/08/2023 (Approximate), Expi res: 10/07/2023 Start: 07-05-2023 Cysto w/insert ureteral stent CYSTOSCOPY AND TREATMENT [facility] Start: 07-05-2023 Patient discharge [facility] Start: 07-05-2023 Admission procedure [facility] Start: 07-04-2023 Application of intermittent pneumatic compression device [facility] Start: 07-04-2023 [facility] Start: 07-04-2023 Following clinical pathway protocol [facility] Start: 07-04-2023 Blood chemistry [facility] Start: 07-04-2023 Hospital admission, emergency, from emergency room, medical nature [facility] Start: 06-10-2023 Anes transurethral w/urethrocystoscopy nos ANESTH BLADDER SURGERY [facility] Start: 06-10-2023 Cysto w/destruction of lesions CYSTOSCOPY AND TREATMENT [facility] Start: 06-10-2023 Cystourethroscopy with biopsy CYSTOSCOPY W/BIOPSY(S) [facility] Start: 06-10-2023 Patient discharge [facility] Start: 06-02-2023 End: 06-02-2023 Patient encounter procedure 06/02/2023 10:40 AM EST Office Visit [facility] [address] [place] [address] [place] [address] Ashley Gomez, MEDICAL RECORDS MANAGER - REGISTERED VETERINARY TECHNICIAN [address] [place] [address] [facility] Start: 05-05-2023 Elastase.pancreatic [Presence] in Stool [facility] Start: 05-05-2023 Fat [Presence] in Stool [facility] Start: 05-05-2023 Protein measurement [facility] Start: 05-05-2023 [facility] Start: 05-05-2023 Immunoglobulin measurement [facility] Start: 05-05-2023 [facility] Start: 05-05-2023 End: 05-05-2023 Patient encounter procedure [facility] Start: 05-01-2023 Depresssion Monitoring Depresssion Monitoring [facility] Start: 04-29-2023 Screening for malignant neoplasm of breast Mammogram [facility] Start: 04-28-2023 End: 04-28-2024 Hemoglobin A1c measurement Hemoglobin A1c Lab Routine Elevated glucose level Expected: 04/28/2023 (Approximate), Expires: 04/28/2024 [facility] Work Phone: Comment on above: Expected: 04/28/2023 (Approximate), Expi res: 04/28/2024 Start: 04-28-2023 End: 04-28-2024 Hepatitis C virus Ab [Presence] in Serum or Plasma by Immunoassay Hepatitis C antibody Lab Routine Need for hepatitis C screening test Expected: 04/28/2023 (Approximate), Expires: 04/28/2024 [facility] Comment on above: Expected: 04/28/2023 (Approximate), Expi res: 04/28/2024 Start: 04-28-2023 End: 04-28-2024 HIV 1+2 Ab+HIV1 p24 Ag [Presence] in Serum or Plasma by Immunoassay HIV-1 and HIV-2 Antigen-Antibody Screen Lab Routine Encounter for screening for HIV Expected: 04/28/2023 (Approximate), Expires: 04/28/2024 [facility] Comment on above: Expected: 04/28/2023 (Approximate), Expi res: 04/28/2024 Start: 04-28-2023 End: 04-28-2024 Thyrotropin [Units/volume] in Serum or Plasma TSH Lab Routine Nausea Weight gain Elevated glucose level Expected: 04/28/2023 (Approximate), Expires: 04/28/2024 [facility] Comment on above: Expected: 04/28/2023 (Approximate), Expi res: 04/28/2024 Start: 04-28-2023 End: 04-28-2024 US Pelvis transvaginal US pelvis transvaginal Imaging Routine Right lower quadrant abdominal pain Nausea Expected: 04/28/2023, Expires: 04/28/2024 [facility] Comment on above: Expected: 04/28/2023, Expires: 5 Start: 04-21-2023 [facility] Start: 12-16-2022 End: 12-17-2023 XR Knee - left 4 Views [facility] Work Phone: Comment on above: Expected: 12/16/2022, Expires: 4 Once for 1 Occurrenc es starting 12/16/2022 until 12/16/2022 Start: 11-27-2022 Covid-19 Vaccine ( season) Covid-19 Vaccine ( season) [facility] Start: 11-27-[address] [facility] Start: 11-20-2022 End: 11-20-2022 Patient encounter procedure 11/20/2022 8:00 AM EDT Appointment [facility] Nuclear Medicine [facility] [place] [phone] Friend, Matty [address], [address] [place] [address] [facility] Nuclear Medicine Start: 10-30-2022 End: 10-31-2023 25-hydroxyvitamin D3 [Mass/volume] in Serum or Plasma Vitamin D Deficiency Screening (Vit D 25) Lab Routine Vitamin D deficiency Expected: 10/30/2022 (Approximate), Expires: 10/31/2023 [facility] Comment on above: Expected: 10/30/2022 (Approximate), Expi [...] osteoarthritis type Expected: 10/30/2022 (Approximate), Expires: 10/30/2023 [facility] Work Phone: Comment on above: Expected: [...] disorder Anxiety Expected: 10/30/2022 (Approximate), Expires: 10/30/2023 [facility] Comment on above: Expected: 10/30/2022 (Approximate), Expi res: 10/30/2023 Start: 10-30-2022 End: 10-30-2023 Lipid 1996 panel - Serum or Plasma Lipid panel Lab Routine Screening for lipoid disorders Expected: 10/30/2022 (Approximate), Expires: 10/30/2023 [facility] Comment on above: Expected: 10/30/2022 (Approximate), Expi res: 10/30/2023 Start: 10-30-2022 End: 10-31-2023 Thyrotropin [Units/volume] in Serum or Plasma TSH Lab Routine Class 1 obesity due to excess calories without serious comorbidity with body mass index (BMI) of 33.0 to 33.9 in adult Depressive disorder Anxiety Expected: 10/30/2022 (Approximate), Expires: 10/31/2023 [facility] Comment on above: Expected: 10/30/2022 (Approximate), Expi res: 10/31/2023 Start: 07-10-2022 Bordetella pertussis IgA and IgG and IgM panel [Units/volume] - Serum by Immunoassay [facility] Start: 07-08-2022 Liquid based cervical cytology screening [facility] Start: 06-15-2022 Fibrin dgradj products d-dimer quantitative FIBRIN DEGRADATION QUANT [facility] Start: 02-19-2022 Simple repair scalp/neck/ax/genit/trunk 2.5cm/< RPR S/N/AX/GEN/TRNK 2.5CM/< [facility] Start: 2021 COLOGUARD (FIT-DNA) COLOGUARD (FIT-DNA) [facility] Start: 2021 [address] [facility] Start: 2021 COLORECTAL CANCER SCREENING COLORECTAL CANCER SCREENING [facility] Start: [address] COLONOGRAPHY [facility] Start: 2021 FECAL OCCULT BLOOD FECAL OCCULT BLOOD [facility] Start: 2021 Lipid 1996 panel - Serum or Plasma Lipid Screening [facility] Start: 2021 LIPID SCREEN LIPID SCREEN [facility] Start: 2021 Screening for malignant neoplasm of colon [facility] Start: [address] [facility] Start: 11-27-2021 Influenza vaccination INFLUENZA (#1) [facility] Start: 10-29-2021 Patient referral [facility] Work Phone: Start: 04-29-2021 Urine microalbumin profile [facility] Start: 04-08-2021 COVID-19 VACCINE (4 - Booster for Moderna series) COVID-19 VACCINE (4 - Booster for Moderna series) [facility] Start: 04-08-2021 COVID-19 VACCINE (4 - Moderna series) COVID-19 VACCINE (4 - Moderna series) [facility] Start: 10-05-2019 PAP TESTING PAP TESTING [facility] Start: 10-05-2019 Screening for malignant neoplasm of cervix Pap Testing [facility] Start: 10-04-2017 Screening for malignant neoplasm of cervix Cervical Cancer Screening [facility] Start: [address] [facility] Start: 2016 Screening for malignant neoplasm of breast Mammogram Screening [facility] Start: 2006 HPV TESTING HPV TESTING [facility] Start: 2006 Screening for malignant neoplasm of cervix [facility] Start: 1994 Diabetes mellitus screening Diabetes Screening [facility] Start: 1994 HEPATITIS C SCREENING HEPATITIS C SCREENING [facility] Start: 1994 Hepatitis C screening Hepatitis C Screening [facility] Start: 1994 HIV SCREENING HIV SCREENING [facility] Start: 1994 HIV screening HIV Screening [facility] Start: 1982 Pneumococcal Vaccine: Pediatrics (0 to 5 Years) and At-Risk Patients (6 to 64 Years) (1 of 2 - PCV) Pneumococcal Vaccine: Pediatrics (0 to 5 Years) and At-Risk Patients (6 to 64 Years) (1 of 2 - PCV) [facility] Start: 1976 HEPATITIS B (1 of 3 - 3-dose series) HEPATITIS B (1 of 3 - 3-dose series) [facility] Start: 1976 HIV screening HIV Screening [facility] Start: 1976 Lipid panel Lipid Panel [facility] Start: 1976 Screening for malignant neoplasm of colon [facility] Anion gap measurement [facility] Bacteria identified in Urine by Culture URINE CULTURE Microbiology Routine Burning with urination Ordered: 01/05/2022 [facility] Work Phone: Comment on above: Ordered: 01/05/2022 Bordetella pertussis IgA Ab [Units/volume] in Serum [facility] Bordetella pertussis IgG Ab [Units/volume] in Serum [facility] Bordetella pertussis IgM Ab [Units/volume] in Serum [facility] BREATH TEST GLUCOSE BREATH TEST GLUCOSE Endoscopy Routine Bloating 03/12/2022 8:48 AM [facility] Work Phone: BREATH TEST LACTOSE BREATH TEST LACTOSE Endoscopy Routine Bloating 03/04/2022 2:49 PM [facility] Work Phone: BUN/Creatinine ratio [facility] Calcium [Mass/volume ] in Serum or Plasma [facility] Carbon dioxide, tota l [Moles/volume] in Serum or Plasma [facility] Chloride [Moles/volu me] in Serum or Plasma [facility] Clostridioides diffi cile DNA [Presence] in Unspecified specimen by MARELY with probe detection [facility] Creatinine [Moles/vo lume] in Serum or Plasma [facility] End: 08-06-2024 CT Kidney WO and W contrast IV CT UROGRAM WO/W IVCON Radiology Routine Gross hematuria 1 Occurrences starting 07/08/2023 until 08/06/2024 [facility] Work Phone: Comment on above: 1 Occurrences starting 07/08/2023 until 08/06/2024 CT Kidney WO and W contrast IV CT UROGRAM WO/W IVCON Radiology Routine Gross hematuria 07/09/2023 2:21 PM EDT [facility] Work Phone: Elastase.pancreatic [Presence] in Stool [facility] Fat [Mass/mass] in Stool [facility] Fat [Presence] in Stool [facility] Fat.neutral [Presenc e] in Stool [facility] Gastrointestinal pathogens panel - Stool by MARELY with probe detection [facility] Giardia lamblia anti gen assay [facility] Glucose [Mass/volume ] in Serum or Plasma [facility] IgA [Mass/volume] in Serum or Plasma [facility] IgE [Units/volume] i n Serum or Plasma [facility] IgG [Mass/volume] in Serum or Plasma [facility] IgM [Mass/volume] in Serum or Plasma [facility] Lactoferrin [Presenc e] in Stool by Immunoassay [facility] Measurement of occul t blood in stool specimen using immunoassay [facility] Measurement of renal function [facility] MG Breast - bilatera l Screening [facility] Ova and parasites identified in Unspecified specimen by Light microscopy [facility] Path report.final Dx Spec [facility] Patient Education [facility] Work Phone: Patient referral [facility] Work Phone: Potassium [Moles/vol ume] in Serum or Plasma [facility] Protein measurement [facility] Sodium [Moles/volume ] in Serum or Plasma [facility] Urea nitrogen [Mass/volume] in Serum or Plasma [facility] Immunizations Immunization Date Immunization Notes Care Provider Eben castanon 12-31-2023 influenza virus vaccine, unspecified formulation Ashley Gomez MEDICAL RECORDS MANAGER - REGISTERED VETERINARY TECHNICIAN Work Phone: [facility] 11-10-2023 Pneumococcal Conjuga te PCV20, Pf (Prevnar 20) Ashley Gomez MEDICAL RECORDS MANAGER - REGISTERED VETERINARY TECHNICIAN Work Phone: [facility] 12-16-2022 influenza, injectabl e, quadrivalent, preservative free Fallon Pop MD Work Phone: [facility] 12-16-2022 Seasonal, quadrivale nt, recombinant, injectable influenza vaccine, preservative free Ashley Gomez MEDICAL RECORDS MANAGER - REGISTERED VETERINARY TECHNICIAN Work Phone: [facility] 12-16-2022 influenza virus vaccine, unspecified formulation Cachorro Vides Work Phone: [facility] 10-30-2022 tetanus toxoid, redu katy diphtheria toxoid, and acellular pertussis vaccine, adsorbed Ashley Gomez MEDICAL RECORDS MANAGER - REGISTERED VETERINARY TECHNICIAN Work Phone: [facility] 07-29-2021 hepatitis B vaccine, adult dosage [facility] 02-28-2021 hepatitis B vaccine, adult dosage [facility] 02-11-2021 Covid (Moderna) [facility] 01-28-2021 hepatitis B vaccine, adult dosage [facility] 01-28-2021 influenza, injectabl e, quadrivalent, preservative free [facility] 01-28-2021 influenza, seasonal, injectable [facility] 01-28-2021 influenza, seasonal, injectable, preservative free Ashley Gomez MEDICAL RECORDS MANAGER - REGISTERED VETERINARY TECHNICIAN Work Phone: [facility] 01-28-2021 influenza virus vaccine, unspecified formulation Ashley Gomez MEDICAL RECORDS MANAGER - REGISTERED VETERINARY TECHNICIAN Work Phone: [facility] 07-12-2020 COVID-19 vaccine, fu ll dose (MODERNA) Sada Snyder MD Work Phone: [facility] Work Phone: 06-13-2020 COVID-19 vaccine, fu ll dose (MODERNA) Sada Snyder MD Work Phone: [facility] Work Phone: 01-12-2020 influenza, injectabl e, quadrivalent, preservative free Ashley Gomez MEDICAL RECORDS MANAGER - REGISTERED VETERINARY TECHNICIAN Work Phone: [facility] 01-12-2020 influenza, seasonal, injectable Dr. Ashok Siu Work Phone: [facility] 12-22-2018 influenza, injectabl e, quadrivalent, preservative free [facility] 12-22-2018 influenza, seasonal, injectable Sada Snyder MD Work Phone: [facility] 12-24-2016 influenza, injectabl e, quadrivalent, preservative free [facility] 12-24-2016 influenza, seasonal, injectable Sada Snyder MD Work Phone: [facility] 03-01-2014 influenza, injectabl e, quadrivalent, preservative free [facility] 03-01-2014 influenza, seasonal, injectable Sada Snyder MD Work Phone: [facility] 02-20-2013 influenza virus vaccine, unspecified formulation Sada Snyder MD Work Phone: [facility] Work Phone: 04-29-2011 tetanus toxoid, redu katy diphtheria toxoid, and acellular pertussis vaccine, adsorbed Sada Snyder MD Work Phone: [facility] Work Phone: 01-22-2011 influenza virus vaccine, unspecified formulation Sada Snyder MD Work Phone: [facility] Work Phone: 01-23-2010 influenza virus vaccine, unspecified formulation Sada Snyder MD Work Phone: [facility] 03-12-2009 novel [id number], all formulations Sada Snyder MD Work Phone: [facility] Work Phone: 12-22-2008 influenza virus vaccine, unspecified formulation Sada Snyder MD Work Phone: [facility] Work Phone: 02-03-2008 influenza virus vaccine, unspecified formulation Sada Snyder MD Work Phone: [facility] Work Phone: 01-24-2007 influenza virus vaccine, unspecified formulation Sada Snyder MD Work Phone: [facility] Work Phone: 02-01-2006 influenza virus vaccine, unspecified formulation Sada Snyder MD Work Phone: [facility] Work Phone: Payers Date Payer Category Payer Self-pay [id number] 2022 Medicaid HMO [id number] 2022 Unknown [employer] [id number] 2022-Present [address] [place] [address] Commercial [id number] 2022 Unknown [id number] 2020 Medicaid [employer] MEDICAID [id number] 2020-Present [phone] [address] [place] [address] Medicaid [id number] 2019 Medicaid [id number] Unknown [id number] Unknown [id number] Unknown [id number] Unknown [id number] Unknown [employer] [id number] Unknown [employer] [id number] Unknown [id number] Unknown [id number] [id number]2 Unknown [id number] 2.16.840.1.429707.3.579.2.462 Unknown [id number] 2.16.840.1.964609.3.579.2.462 Unknown [id number] 2.16.840.1.909225.3.579.2.462 Unknown [id number] 2.16.840.1.453587.3.579.2.462 Unknown [id number] 2.16.840.1.338085.3.579.2.462 Unknown [id number] 2.16.840.1.964250.3.579.2.462 Unknown [id number] 2.16.840.1.906797.3.579.2.462 Unknown [id number] 2.16.840.1.278703.3.579.2.462 Unknown [id number] 2.16.840.1.686654.3.579.2.462 Unknown [id number] 2.16.840.1.833173.3.579.2.462 Unknown [id number] 2.16.840.1.184907.3.579.2.462 Unknown [id number] 2.16.840.1.019705.3.579.2.462 Unknown [id number] 2.16.840.1.898696.3.579.2.462 Unknown [id number] 2..840.1.985940.3.579.2.462 Unknown [id number] 2..[id number] Unknown [id number] [id number] Social History Date Type Detail Facility Start: 02-21-2021 End: 07-14-2023 Tobacco smoking status HIIS Unknown if ever smoked [facility] Start: 11-21-2019 Non-smoker [facility] Start: 1975 Sex Assigned At Female C [facility] Start: 01-05-2022 End: 02-17-2024 Tobacco smoking status HIIS Never smoked tobacco [facility] Start: 12-31-2020 End: 08-18-2024 Alcohol intake Current drinker of alcohol (finding) [facility] Start: 10-10-2020 History SDOH Alcohol Frequency [address] [facility] Start: 10-10-2020 History SDOH Alcohol Std Drinks [address] [facility] Start: 12-31-2020 History SDOH Alcohol Comment socially [facility] Start: 10-10-2020 History SDOH Social Connections Phone [address] [facility] Start: 10-10-2020 History SDOH Social Connections Catholic [address] [facility] Start: 10-10-2020 History SDOH Stress 4 [facility] Start: 10-10-[address] [facility] Start: 01-05-2022 End: 10-29-2022 Tobacco use and exposure Smokeless tobacco non-user [facility] Start: 01-06-2020 End: 12-16-2022 Exposure to SARS-CoV-2 (event) Not sure [facility] Start: 06-15-2022 End: 05-17-2024 History of Social function [facility] Start: 06-15-2022 End: 05-17-2024 Tobacco use [address] [facility] National Score (1-10 0), lower number is lower risk [address] [facility] Start: 02-27-2021 Gender identity Identifies as female gender (finding) [facility] Start: 02-27-2021 Sexual orientation Heterosexual (hiro evans) [facility] How often to you hav e a drink containing alcohol? Monthly or less [facility] How many standard drinks containing alcohol do you have on a typical day? 1 or 2 [facility] How often do you hav e 6 or more drinks on 1 occasion? Never [facility] (I/We) worried shanna er (my/our) food would run out before (I/we) got money to buy more. Never true [facility] In the past 12 month s, was there a time when you were not able to pay the mortgage or rent on time? No [facility] Start: 10-29-2022 Alcohol Comment on occasion Rebecca Gomez [facility] Start: 1975 Sex Assigned At Not on file [facility] Do you belong to any clubs or organizations such as moravian groups, unions, fraternal or athletic groups, or school groups? Yes [facility] Are you now , , , , never or living with a partner? [facility] How often to you hav e a drink containing alcohol? 2-[address] [facility] Do you feel stress - tense, restless, nervous, or anxious, or unable to sleep at night because your mind is troubled all the time - these days [OSQ] Rather much [facility] Start: 11-10-2023 Alcohol Comment [facility] Start: 06-02-2007 Alcohol Comment rare [facility] Start: 10-09-2022 Sex Female (finding) [facility] Do you feel stress - tense, restless, nervous, or anxious, or unable to sleep at night because your mind is troubled all the time - these days [OSQ] To some extent [facility] NEGATED: Highlighted row [facility] Medical Equipment Procedure Code Equipment Code Equipment Origin al Text Equipment Identifier Dates ([id number]) Polymeric ureter al stent [id number] FDA Start: 07-05-2023 Goals Date Patient Goal Desired Activity /State Functional Status Date Assessment Result Facility 07-05-2023 Functional status Bathroom Privilege [facility] Work Phone: Mental Status Date Assessment Result Facility 07-05-2023 Cognitive function Voice/Name [facility] Work Phone: 07-04-2023 Cognitive function Appropriate;C ooperative;Ta lkative [facility] Work Phone: 06-10-2023 Cognitive function Voice/Name [facility] Work Phone: Clinical Notes 02-05-2020 to 10-10-2024 Telephone Encounter - TERE Abdullahi CNP - 10/04/2024 10:03 AM EDTTelephone Encounter - TERE Abdullahi CNP - 10/04/2024 10:03 AM EDT Note Date & Type Note Facility 10-10-2024 Radiology Diagnostic study note [facility] Imaging Services [address] [place], [place] [address] Finger(s) Min 2 Views MR#: [id number] Acct: [id number] Name: MARCELINO ARAIZA Rep #: [id number] : 1975 F 48 From: Cynthia Burks MD PCP: TEJINDER Le Status: REG CLI Study:Finger(s) Min 2 Views Date of Exam: 10/09/24 Exam# [id number] Ordering Dr: ROSEANN MIJARES PROCEDURE: FINGER(S) MIN 2 VIEWS 10/09/2024 REASON FOR EXAM: INDEX FINGER MASS TECHNIQUE: FINGER(S) MIN 2 VIEWS COMPARISON: No FINDINGS: Mild osteoarthritic changes, interphalangeal joints, mainly small osteophyte formation, and juxta-articular soft tissue calcification.. No acute bone or soft tissue pathology. RAD/Finger(s) Min 2 Views IMPRESSION: Mild osteoarthritic changes Reading Location: [facility] CC: TEJINDER Gomez; ROSEANN GEE ~ Kitchen Supervisor: Signed [facility] 10-04-2024 Telephone encounter Note Reviewed chart. Refill appropriate. RX sent. [facility] 10-04-2024 Miscellaneous Notes Reviewed chart. Refill appropriate. RX sent. Prescription Request: Last medication check: 05/17/24 Last physical exam: 11/10/23 Next scheduled appointment: 11/15/24 Last date of refill on this medication 02/25/24 documented in this encounter [facility] 10-04-2024 Telephone encounter Note Prescription Request: Last medication check: 05/17/24 Last physical exam: 11/10/23 Next scheduled appointment: 11/15/24 Last date of refill on this medication 02/25/24 [facility] 09-03-2024 Radiology Diagnostic study note [facility] Imaging Services [address] [place] [address] Pelvic w/ Transvaginal MR#: [id number] Acct: [id number] Name: MARCELINO ARAIZA Rep #: [id number] : 1975 F 48 From: Pet er Peer DO PCP: TEJINDER Le Status: REG CLI Study:Pelvic w/ Transvaginal Date of Exam: 09/01/24 Exam# [id number] Ordering Dr: Chrystal Gould DO PROCEDURE: PELVIC W/ TRANSVAGINAL 09/01/2024 REASON FOR EXAM: PELVIC PAIN LEFT TECHNIQUE: Transabdominal pelvic ultrasound COMPARISON: Ultrasound 02/28/2024 FINDINGS: Measurements: Uterus: 7.9 x 3.4 x 4.5 with a volume of 63 0.3 mL prior. Uterus: 8.7 x 4.9 x 3.6 with a volume of 63 0.3 mL. Anteverted Endometrial Thickness: 3.5 mm Right Ovary: 3.9 x 2.9 x 2.1 with a volume of mL. Left Ovary: 3.5 x 2.0 x 2.5 with a volume of mL. Uterus: Anteverted. Unremarkable size. Endometrium: Hyperechoic appearance. 3.5 mm thickness is probably within normallimits. Right ovary: Normal blood flow. 2.1 cm complex cyst in the right ovary. No adnexal mass. Left ovary: Normal blood flow. Unremarkable left ovary. No adnexal mass. Other: Incidental note of nabothian cysts in the cervix. No pelvic free fluid. Bladder volume at time of exam 175.7 mL US/Pelvic w/ Transvaginal IMPRESSION: Complex cystic lesion measuring 2.1 cm in the right ovary. Consider follow-up ultrasound in 6-8 weeks. Uterus unremarkable as seen. Reading [facility] CC: TEJINDER Gomez; Dr. Chrystal Conteh, DO ~ Kitchen Supervisor: Signed [facility] 07-21-2024 History of Presen t illness Narrative [...] stated that they are currently in the [facility]. If the patient is a minor, [...] 07/21/2024 1:56 PM documented in this encounter [facility] 07-07-2024 Evaluation note Diagnosis Onset Date Resolution Gastroparesis acute July 07, 2024 10:24am IBS (irritable bowel syndrome) chronic July 07, 2024 10:24am Abdominal pain inactive June 10:24am ASCUS of cervix with negative high risk HPV acute August 30, 2024 9:48am Skin lesion acute August 30 9:48am Vaginal atrophy acute August 30, 2024 9:48am Encounter for routine gynecological examination noneactive August 30, 2024 9:48am [facility] Work Phone: 1(679) 616-614904-11-2025 Evaluation note* Diagnosis Onset Date Resolution Status Admit Date Gastroparesis acute July 07, 2024 10:24am IBS (irritable bowel syndrome) chron ic July 07, 2024 10:24am Abdominal pain inactive June 10:24am Encounter for routine gynecological examination noneactive August 302024 9:48am [facility] Work Phone: 1(718) 575-949502-28-2025 Telephone encounter Note* Telephone Encounter - Loida Bautista MA - 05/26/2024 9:42 AM EST Prescription Request: Last medication check: 05/17/24 Last physical exam: 11/10/23 Next scheduled appointment: 11/15/24 Last date of refill on this medication [facility]/30/23 [id number] Miscellaneous Notes* Telephone Encounter - Loida Bautista MA - 05/26/2024 9:42 AM EST Prescription Request: Last medication check: 05/17/24 Last physical exam: 11/10/23 Next scheduled appointment: 11/15/24 Last date of refill on this medication 04/30/23 [id number] History of Present illness Narrative* Juana Nogueira MA - 05/17/2024 9:20 AM EST Patient verified by last name and . * Ashley Gomez APRN - ROSALIA - 05/17/2024 9:20 AM EST 05/17/2024 Marcelino Araiza (: 1975) is a 48 y.o. female , Established patient, here for evaluation of the following chief complaint(s): Blood Work, Medication Check, Anxiety, Depression, Hypertension, GERD, Obesity, Vitamin D Deficiency, and Health Maintenance (Mammo- had done at [facility] ) ASSESSMENT/PLAN: 1. Vitamin D deficiency - [...] (BMI) of37.0 to 37.9 in adult - Comprehensive metabolic [...] and it was recommended she see a accounts payable or receivable clerk- saw them in November. Will use Cyclobenzaprine [...] activities due to asthma include: none. Number ofasthma exacerbations over the past 6-12 months requiring oral systemic corticosteroids: yes- in thespring. Understands how to use inhalers as directed [...] Fully vaccinated for Hep B. Vaccinated for COVID- 19 x3 with most recent dose on 02/11/21- declines additionaldoses. Flu vaccine current: 12/31/23. Review of Systems [...] lb 9.6 oz (112 kg) Height: 5' 8" (1.727 m) Body mass index is 37.5 [...] CNP 05/17/2024 9:34 AM documented in this [facility]12-12-2024 Telephone encounter Note* Telephone Encounter - Merry Hoffman MA - 03/09/2024 8:43 AM EST Prescription Request: Last medication check: 06/18/23 Last physical exam: 11/10/23 Next scheduled appointment: 05/17/24 Last date of refill on this medication 03/30/23 18g [id number] Miscellaneous Notes* Telephone Encounter - Merry Hoffman MA - 03/09/2024 8:43 AM EST Prescription Request: Last medication check: 06/18/23 Last physical exam: 11/10/23 Next scheduled appointment: 05/17/24 Last date of refill on this medication 03/30/23 18g 2 refills documented in this [facility]12-02-2024 Telephone encounter Note* Telephone Encounter - TERE Abdullahi CNP - 02/28/2024 9:01 AM EST Reviewed chart. Refill appropriate. RX sent. [place] [id number] Miscellaneous Notes* Telephone Encounter - TERE Abdullahi CNP - 02/28/2024 9:01 AM EST Reviewed chart. Refill appropriate. RX sent. * Telephone Encounter - Juana Nogueira MA - 02/28/2024 8:41 AM EST Prescription Request: Last medication check: 04/28/2023 Last physical exam: 11/10/2023 Next scheduled appointment: 05/17/2024 Last date of refill on this medication: 08/13/2023 documented in this [place] [address]-02-2024 Telephone encounter Note* Telephone Encounter - Juana Nogueira MA - 02/28/2024 8:41 AM EST Prescription Request: Last medication check: 04/28/2023 Last physical exam: 11/10/2023 Next scheduled appointment: 05/17/2024 Last date of refill on this medication: 08/13/2023 [id number] History of Present illness Narrative* Ashley Talia Gomez, TERE - REGISTERED VETERINARY TECHNICIAN - 02/25/2024 9:40 AM EST Images from the original note were not included. 02/25/2024 Marcelino Araiza (: 1975) is a 48 y.o. female , Established patient, here for evaluation of the following chief complaint(s): Follow-up, Fatigue, Depression, and Anxiety Patient was identified and seen today via Telehealth by agreement and consent. I used the followingTelehealth technology: Audio and video capabilities. Patient location: Patient Location: Home. This patient encounter is appropriate and reasonable under the circumstances: patient preference . The patient has been advised of the potential risks and limitations of this mode of treatment (including but not limited to the absence of in-person examination) and has agreed to be treated in a [facility] in spite of them. Any and all [...] stated that they are currently in the [facility]. If the patient is a minor, permission has been obtained by the parent orguardian for the patient to receive medical care [...] for a total of 60 mg, Starting 02/25/2024, Normal - FLUoxetine (PROzac) 40 MG capsule; [...] visit for follow up on her fatigue. [place] this may be related to her Prozac [...] authenticate this note. Ashley Gomez APRN - REGISTERED VETERINARY TECHNICIAN 02/25/2024 10:00 AM documented in this [facility]11-13-2024 History of Present illness Narrative* Juana Nogueira MA - 02/09/2024 1:00 PM EST Patient verified by last name and . * TERE Chung CNP - 02/09/2024 1:00 PM EST Images from the original note were [...] every day and take about a 2-3 hournap each day. 60mg of fluoxetine ) Patient was identified and seen today via Telehealth by agreement and consent. I used the followingTelehealth technology: Audio and video capabilities. Patient location: Patient Location: Home. This patient encounter is appropriate and reasonable under the circumstances: Behavioral Health . Thepatient has been advised of the potential risks [...] that they are currently in the state [facility]. If the patient is a minor, permission [...] with concerns of feeling more tired lately- afew months. Is not sure if it is related to her daily Prozac or not. States she is sleeping well atnight. Has been experiencing more vivid dreams at night since increasing her Prozac to 60 mg back in July/August this year. Would like to decrease her Prozac and see if symptoms improve. Feels her depres anaya and anxiety have been stable. I informed [...] CNP 02/09/2024 1:05 PM documented in this [facility]09-25-2024 Instructions* Patient Instructions* Kim Malhotra MD - 12/22/2023 10:30 AM EDT -Please go to the lab today for blood work -Please follow up after results are obtained [facility] NoteHNO ID: [id number] Author: FALLON RIVAS MD Service: ? Author [...] reports she used to work in a [employer] for 5 years in the past and [...] (FLONASE) 50 mcg/actuation nasal spray Use 1 [place] in each nostril once daily. buPROPion XL (WELLBUTRIN XL) 300 mg 24 hr tablet Take (more content not included)...[facility]09-25-2024 History of Present illness Narrative* Fallon Rivas MD - 12/22/2023 9:37 AM EDT Marcelino Araiza is a 47 year old [...] reports she used to work in a [employer] 5 years in the past and that [...] (FLONASE) 50 mcg/actuation nasal spray Use 1 [place] in each nostril once daily. buPROPion XL [...] (96.6 F) (Temporal) Ht 172.7 cm (5' 8") Wt 111.1 kg (244lb 14.9 oz) LMP 12/29/2019 (Approximate) BMI 37.24 [...] in medical condition. Follow-up: following lab results. Kim Marino MD Vascular Medicine PGY-4 [facility] RHEUMATOLOGY STAFF: I have reviewed the history and physical examination obtained and documented by the fellow/residentand I personally participated in the benítez components. I have discussed the case and management of the patient's care with the fellow/resident . Note was revised, edited and confirmed. Assessment and plan discussed with patient I spent a total of 50 minutes on the date of the service which included preparing to see the patient, rwre-zw-ufhq patient care, completing clinical documentation, obtaining and/or reviewing separately obtained history, performing a medically appropriate examination, counseling and educating the pat ient/family/caregiver, ordering medications, tests, or procedures, and independently interpreting results (not separately reported). Fallon Martinez MD, MPH Authenticated by responsible provider. [facility] History of Present illness Narrative* Loida Bautista MA - 11/10/2023 10:00 AM EDT Patient was verified by name and . After obtaining consent, and per orders of Ashley Gomez CNP, injection of PCV20 given in left deltoid by Loida Bautista. Patient instructed to report any adverse reaction immediately. * TERE Chung CNP - 11/10/2023 10:00 AM EDT Images from the original note were not included. [facility] [address] [place] [id number] Dept: [phone] Dept Loc: [phone] HPI: Marcelino Araiza is a 47 y.o. female who presents today for her medical conditions/complaints as notedbelow. Marcelino Araiza is c/o of Annual Exam, Blood Work, and Health Maintenance (PNA vaccine-discusswith Ashley/4th COVID vaccine- only had 3, doesn't want a 4th) HPI- [...] and it was recommended she see a accounts payable or receivable clerk. Is scheduled to see someone through the [facility] December. Obesity: Denies regular exercise [...] activities due to asthma include: none. Number ofasthma exacerbations over the past 6-12 months requiring oral systemic corticosteroids: yes- in thespring. Understands how to use inhalers as directed and demonstrated proper inhaler technique. Depression/Anxiety: Taking her Prozac and Wellbutrin daily as prescribed and feels symptoms are stable. Chronic left flank pain- has a scan scheduled in [place] today. Was told she might need a stent in one of her ureter's. Health Maintenance: Would like a pneumococcal vaccination. Pap: 07/14/23. Colonoscopy: 11/07/20. Tdapcurrent: 10/30/22. Fully vaccinated for Hep B. Vaccinated [...] daily. Take with 40 mg dose for atotal of 60 mg 90 capsule 1 FLUoxetine [...] mg) by mouth daily. 90 tablet 1 azhgjpwlflwn-udmj-zmgadkjg-folic acid (Centrum) chewable tablet Chew 1 tablet [...] to 64 Years) (1 of 2 - PCV)Never done Influenza Vaccine (1) 11/28/2023 Depression Monitoring [...] Objective: BP 128/74 Pulse 80 Ht 5' 8" (1.727 m) Wt 239 lb (108 kg) [...] serious comorbidity with body mass index (BMI) of36.0 to 36.9 in adult - Comprehensive metabolic [...] CNP 11/10/2023 10:24 AM documented in this [facility]07-31-2024 Telephone encounter Note* Telephone Encounter - Lauren Browne - 10/27/2023 10:36 AM EDT Thank you Christa, I will cancel the US. Lauren [facility] [id number] Miscellaneous Notes* Telephone Encounter - Lauren Browne - 10/27/2023 10:36 AM EDT Thank you Christa, I will cancel the US. Lauren * Telephone Encounter - TERE Castaneda CNP - 10/27/2023 10:14 AM EDT She just had a ct scan. She no longer needs an ultrasound * Telephone Encounter - Lauren Browne - 10/27/2023 9:42 AM EDT Christa, You said to get a US and NM kidney flow and function - do you want both or just one? Also you need to cancel the order that you put in procedures. Thanks, Lauren * Telephone Encounter - TERE Castaneda CNP - 10/27/2023 8:18 AM EDT Order placed. * Telephone Encounter - Zarina Valverde - 10/27/2023 7:[address] order under imaging I can then can then call to schedule lasix renal scan Zarina Valverde documented in this encounterSMiddletown HospitalZfnatb01-34-6608 Telephone encounter Note* Telephone Encounter - TERE Castaneda CNP - 10/27/2023 10:14 AM EDT She just had a ct scan. She no longer needs an ultrasound [facility] DaytonWwmcrm04-46-7647 NoteMelissa, You said to get a US and NM kidney flow and function - do you want both or just one? Also you need to cancel the order that you put in procedures. Thanks, [facility]07-31-2024 Telephone encounter Note* Telephone Encounter - Lauren Browne - 10/27/2023 9:42 AM EDT Christa, You said to get a US and NM kidney flow and function - do you want both or just one? Also you need to cancel the order that you put in procedures. Thanks, Lauren [facility] DaytonIxkblh85-24-5425 Telephone encounter Note* Telephone Encounter - TERE Castaneda CNP - 10/27/2023 8:18 AM EDT Order placed. [facility] DaytonCuqcbl12-26-1376 Telephone encounter Note* Telephone Encounter - Zarina Valverde - 10/27/2023 7:[address] order under imaging I can then can then call to schedule lasix renal scan Zarina Valverde [facility] DaytonStxxtz22-83-9744 History of Present illness Narrative* TERE Castaneda CNP - 10/20/2023 2:20 PM EDT Images from the original note were not included. Christa Wong APRN 10/20/2023 at 2:35 PM Urology Office Visit [facility] [address] [facility] [address] [facility] [address] Dept: [phone] Dept Loc: [phone] The patient, Ms. Araiza is a 47 [...] office for worsening conditions or problems, and seekemergency medical treatment and/or call 911 if the patient deems either necessary. The patient stated that they are currently in the [facility]. If the patient is a minor, [...] REFERRING PROVIDER: Cachorro Vides DO PCP: Naga Hurt MD TODAY'S DATE: 10/20/2023 CHIEF COMPLAINT: Chief Complaint Patient presents with Nephrolithiasis Visit type: Established patient Assessment and Plan: Diagnosis Plan 1. Left flank pain [facility] 2. Hematuria, unspecified type [facility] Addressed Flank pain: ? Stone passage given significant flank pain 10/17 UA- 0 RBC/HPF 10/14- UA 3-5 RBC/HPF Has had significant relief of pain since ER visit. Still with slight soreness. Recommend continuing fluids Complete Lasix scan as ordered previously. Doing significantly better today compared to prior visit. Follow Up: Christa Wong APRN [facility] HPI: Ms. Araiza is a 47 [...] CT scan.She did see brown particles that lookedlike a stone She did have significant relief [...] Daily meloxicam (MOBIC) 15 mg, Oral, Daily rebghuvmilvz-bdvg-rgqboydy-folic acid (Centrum) chewable tablet 1 tablet, Oral, [...] 77 10/18/2023 Testosterone: No results found for: "TESTOSTERONE" PSA: No results found for: "PSA" Hemoglobin A1C: Lab Results Component Value Date HGBA1C 5.2 04/28/2023 URINALYSIS: Lab Results Component Value Date COLORU Colorless 10/18/2023 CLARITYU Clear 10/18/2023 KETONESU Negative 10/18/2023 PROTUR Negative 10/18/2023 UROBILINOGEN Normal 10/18/2023 Imaging: Patient Name: MARCELINO ARAIZA : 1975 [facility]#: [id number] Exam Date/Time: 10/18/2023 14:40 Procedure: CT ABDOMEN [...] portions of this chart were dictated using Venafi electronic voice recognition software. It is possible that typos and/or omissions and/or substitutions of words and/or phrases may exist, which may alter the intended meaning of the dictating provider. documented in this [address]22-2024 Hospital Discharge instructions* Discharge Instructions* Cachorro Vides DO - 10/18/2023 3:44 PM EDT Keep your scheduled follow-up appointments and testing with urology. Your workup today showed you have blood in your urine, but no UTI. You do not have any enlargement of your kidney or kidney stones. Return to the emergency department if you develop fever, recurrent vomiting, worsening pain, or ifyou have other concerns. * Attachments The following attachments cannot be sent through Care Everywhere. * Flank Pain ED ([place]) documented in this [place] [address]22-2024 Emergency department Note* Marcelino Valencia RN - 10/18/2023 12:23 PM EDT Pt to room 4 with c/o left flank pain since Wednesday. Pt describes pain as constant pain that waxes and wanes in intensity with no modifying factors. Pt states pain wraps around into front abdominalarea. Pt denies any known hematuria, dysuria. Pt repors that she has a history of "kidney problems" and seen by urology last month with a stent in left ureter placed for a short period of time but was unable to tolerate. Pt denies any fevers. Reports having some nausea and general sense of unwell. documented in this [address]22-2024 Emergency department Triage note* Marcelino Valencia RN - 10/18/2023 12:23 PM EDT Pt to room 4 with c/o left flank pain since Wednesday. Pt describes pain as constant pain that waxes and wanes in intensity with no modifying factors. Pt states pain wraps around into front abdominalarea. Pt denies any known hematuria, dysuria. Pt repors that she has a history of "kidney problems" and seen by urology last month with a stent in left ureter placed for a short period of time but was unable to tolerate. Pt denies any fevers. Reports having some nausea and general sense of unwell. [facility] [id number] History of Present illness Narrative* Christa Wong, MEDICAL RECORDS MANAGER - REGISTERED VETERINARY TECHNICIAN - 10/15/2023 10:00 AM EDT Images from the original note were not included. Christa WongTERE 10/27/2023 at 8:39 AM Urology Office Visit [facility] [address] [facility] [address] [facility] [address] Dept: [phone] Dept Loc: [phone] The patient, Ms. Araiza is a 47 [...] office for worsening conditions or problems, and seekemergency medical treatment and/or call 911 if the patient deems either necessary. The patient stated that they are currently in the [facility]. If the patient is a minor, [...] Ashley Gomez APRN - * PCP: Naga Hurt MD TODAY'S DATE: 10/27/2023 CHIEF COMPLAINT: Chief Complaint Patient presents with Blood in Urine Impression/Plan: Marcelino was seen today for blood in urine. Diagnoses and all orders for this visit: Other hydronephrosis (Primary) - NM Renal Function Mag 3 with Lasix; Future - NM kidney flow/function w/wo lasix; Future Gross hematuria - [facility] - US retroperitoneum; Future - Cancel: Urine culture; Future - Cancel: Urine culture - Cancel: Complete Urinalysis; Future - Cancel: Complete Urinalysis - NM Renal Function Mag 3 with Lasix; Future - Complete Urinalysis; Future - Urine culture; Future - NM kidney flow/function w/wo lasix; Future Left lower quadrant abdominal pain - [facility] - US retroperitoneum; Future - Cancel: [...] OR note Reviewed prior CT [facility] from [facility] Reviewed prior cystoscopy and biopsy Squamous metaplasia Urine culture today Lasix renal scan Ordered given narrowing of left ureter. Likely related to edema per note The patient was instructed to call the office or go to the nearest ER if worsening symptoms such asfever > 101F, inability to urinate, intractable nausea or vomiting, or uncontrolled pain. The patient verbalizes understanding. Follow Up: ABHIJEET Wong APRN [facility] Subjective: Ms. Araiza is a 47 [...] was removed later that day. Evaluated by [facility] urology as well in [place] -CT Urogram [...] Daily meloxicam (MOBIC) 15 mg, Oral, Daily aqwcdgkmneko-acfx-hjoufuyy-folic acid (Centrum) chewable tablet 1 tablet, Oral, [...] portions of this chart were dictated using Venafi electronic voice recognition software. It is possible that typos and/or omissions and/or substitutions of words and/or phrases may exist, which may alter the intended meaning of the dictating provider. documented in this [facility]06-19-2024 History of Present illness Narrative* TERE Chung CNP - 09/15/2023 11:00 AM EDT Images from the original note were not included. 09/15/2023 Marcelino Araiza (: 1975) is a 47 y.o. female , Established patient, here for evaluation of the following chief complaint(s): Follow-up, Depression, and Anxiety Patient was identified and seen today via Telehealth by agreement and consent. I used the followingTelehealth technology: Audio and video capabilities. Patient location: Patient Location: Home. This patient encounter is appropriate and reasonable under the circumstances: Behavioral Health . Thepatient has been advised of the potential risks [...] stated that they are currently in the [facility]. If the patient is a minor, [...] previous visit and started to develop headaches. Cuther dose back down to 60 mg and headaches improved. Continues to take her Wellbutrin as prescribed.Still notices a lack of motivation and desire [...] this note. Ashley Gomez APRN - ROSALIA 09/15/2023 11:07 AM documented in this [facility]06-03-2024 Telephone encounter Note* Telephone Encounter - Destiny Wilhelm - 08/30/2023 4:09 PM EDT Reached out to pt, pt prefers [place] office. Scheduled first available with Dr. Holden on 11/10/23 in the [place] office and placed on the wait list in case of a cancellation. [facility] DaytonGtbeyp14-88-0414 Miscellaneous Notes* Telephone Encounter - Destiny Wilhelm - 08/30/2023 4:09 PM EDT Reached out to pt, pt prefers [place] office. Scheduled first available with Dr. Holden on 11/10/23 in the [place] office and placed on the wait list in case of a cancellation. * Telephone Encounter - Vidya Guillen - 08/27/2023 10:04 AM EDT Name of Caller: Marcelino Contact Reason for Appointment: Patient called to schedule an appointment per referral. R31.0 (ICD-10-CM) - Gross hematuria R10.32 (ICD-10-CM) - Left lower quadrant abdominal pain Please advise Office Name: Urology documented in this [facility]05-31-2024 Telephone encounter Note* Telephone Encounter - Vidya Guillen - 08/27/2023 10:04 AM EDT Name of Caller: Marcelino Contact Reason for Appointment: Patient called to schedule an appointment per referral. R31.0 (ICD-10-CM) - Gross hematuria R10.32 (ICD-10-CM) - Left lower quadrant abdominal pain Please advise Office Name: Urology [facility] DaytonVdbktj32-94-0590 History of Present illness Narrative* Ashley Talia Gomez, MEDICAL RECORDS MANAGER - REGISTERED VETERINARY TECHNICIAN - 08/27/2023 9:40 AM EDT Images from the original note were not included. 08/27/2023 Marcelino Araiza (: 1975) is a 47 y.o. female , Established patient, here for evaluation of the following chief complaint(s): Follow-up, Depression, and Anxiety Patient was identified and seen today via Telehealth by agreement and consent. I used the followingTelehealth technology: Audio and video capabilities. Patient location: Patient Location: Home. This patient encounter is appropriate and reasonable under the circumstances: Behavioral Health . Thepatient has been advised of the potential risks [...] stated that they are currently in the [facility]. If the patient is a minor, [...] in about 2 weeks (around 09/10/2023). SUBJECTIVE/OBJECTIVE: HPI - Marcelino presents today for a video virtual visit for follow up on her depression and anxiety. Had the dose of her Prozac increased to 60 mg at her previous appointment and states she has noticedsome improvement but is still not where she [...] CNP 08/27/2023 9:55 AM documented in this [facility]05-17-2024 History of Present illness Narrative* Juana Nogueira MA - 08/13/2023 1:20 PM EDT Patient verified by last name and . * TERE Chung CNP - 08/13/2023 1:20 PM EDT Images from the original note were not included. 08/13/2023 Marcelino Araiza (: 1975) is a 47 y.o. female , Established patient, here for evaluation of the following chief complaint(s): Depression, Anxiety, Follow-up (States she would like to discuss getting a referral to a different Urologist. /Would like to see who would be best to go with through [facility]. ), and Virtual Visit Patient was identified and seen today via Telehealth by agreement and consent. I used the followingTelehealth technology: Audio and video capabilities. Patient location: Patient Location: Home. This patient encounter is appropriate and reasonable under the circumstances: Behavioral Health . Thepatient has been advised of the potential risks [...] stated that they are currently in the [facility]. If the patient is a minor, [...] in 2 weeks. 3. Gross hematuria - [facility] 4. Left lower quadrant abdominal pain - [facility] 5. Osteoarthritis of both knees, unspecified [...] virtual visit with concerns of poorly controlled depressionand anxiety. Has been dealing with a lot of health stressors and feels this has contributed to her worsening symptoms. Takes her Prozac and Wellbutrin daily as prescribed. Feels she has no motivationand is tired all of the time. Denies [...] CNP 08/13/2023 1:36 PM documented in this encounterSMiddletown HospitalBzpygo86-31-7818 Telephone encounter Note* Telephone Encounter - Loida Bautista MA - 08/10/2023 1:19 PM EDT Patient states she wants this done at [facility]. Is there a way to note this so [facility] central scheduling doesn't call? [facility] DaytonEanatc07-99-5641 Miscellaneous Notes* Telephone Encounter - Loida Bautista MA - 08/10/2023 1:19 PM EDT Patient states she wants this done at [facility]. Is there a way to note this so [facility] central scheduling doesn't call? * Telephone Encounter - Isa Moraes - 08/10/2023 11:26 AM EDT We have been unable to reach your patient to schedule their testing. Test Name: US pelvis transvaginal 1st attempt//[employer] message//08.07.23 KGK 2nd attempt [facility] 08/10/23 CP deferred documented in this encounterSMiddletown [id number] Telephone encounter Note* Telephone Encounter - Isa Moraes - 08/10/2023 11:26 AM EDT We have been unable to reach your patient to schedule their testing. Test Name: US pelvis transvaginal 1st attempt//[employer] message//08.07.23 KGK 2nd attempt [facility] 08/10/23 CP deferred [facility] [id number] History of Present illness Narrative* Juana Nogueira MA - 07/16/2023 1:00 PM EDT Patient verified by last name and . * Juana Nogueira MA - 07/16/2023 1:00 PM EDT Ashley, Aleksandar at Cytology report from 07/08/2023 Went to OBGYN yesterday, found that she has Elvira in her bladder. Review Noticing that she is not urinating as frequently as she would usually since ER visit. * Ashley Gomez, MEDICAL RECORDS MANAGER - REGISTERED VETERINARY TECHNICIAN - 07/16/2023 1:00 PM EDT Images from the original note were not included. 07/16/2023 Marcelino Araiza (: 1975) is a 47 y.o. female , Established patient, here for evaluation of the following chief complaint(s): ER Follow-up (Went to [facility], was bleeding badly from her urethra, had really bad clots on Wednesday. When she gave a urine sample, it came out a pure blood. Had CT scan. Got admitted to the Hospital Wednesday morning, had bled all day. Had surgery Wednesday, to find where bleeding was coming from. Wentthrough left ureter and was completely swollen and narrow, placed a stent. The stent was taken out on Wednesday. Went to [facility] to get a second opinion, had a CT scan done again, urologist could not find anything. ) Patient was identified and seen today via Telehealth by agreement and consent. I used the followingTelehealth technology: Audio and video capabilities. Patient location: Patient Location: Home. This patient encounter is appropriate and reasonable under the circumstances: patient schedule and appointment availability . The patient has been advised of the potential risks and limitations of thismode of treatment (including but not limited to [...] that they are currently in the state [facility]. If the patient is a minor, permission [...] Had subsequent removal of ureteral stent on 07/06/23" Had a recent urine culture collected on 07/14/23 with negative results. Is currently being treated for a yeast infection via urologist through [facility]. Is scheduled to follow back up with on 08/04/23. May have a repeat scope for further evaluation. No clear cause of symptoms foundso far with workup. Is scheduled to see [...] CNP 07/16/2023 1:08 PM documented in this [facility]04-17-2024 NotePap Smear Specimen AdequacyApril 2023 11:17amComment.Satisfactory for evaluation. Endocervical and/or squamous metaplasticcells (endocervical component)are present.[facility] INTERFACED A#[id number] Regional Medical Centerment on above: Satisfactory for evaluation. Endocervical and/or squamous metaplasticcells (endocervical component)are present.07-12-2023 NoteHNO ID: [id number] Author: YOJANA LARES MD Service: ? Author Type: Physician Type: Progress Notes Filed: 07/12/2023 08:34 Note Text: [facility] NEW PATIENT HISTORY AND PHYSICAL EXAM PATIENT INFO: Marcelino Araiza 47 year old REFERRING M.D.: No referring provider defined for this encounter. PCP: Ashley Gomez NP, ROSALIA Date of Service: July 12, 2023 Consultation [...] visit. Either the patient or their legal insurance account representative has been informed of the risks [...] 0.70 - 1.40 mg/dL Final URINALYSIS: Specific [place], Ur Date Value Ref Range Status 07/08/2023 [...] Reactions Ofloxacin Swelling [place] (more content not included)...[facility]04-15-2024 History of Present illness Narrative* Yojana Lares MD - 07/12/2023 8:01 AM EDT [facility] NEW PATIENT HISTORY AND PHYSICAL EXAM PATIENT INFO: Marcelino Araiza 47 year old REFERRING M.D.: No referring provider defined for this encounter. PCP: Ashley Gomez NP, REGISTERED VETERINARY TECHNICIAN Date of Service: July 12, 2023 Consultation [...] licensure. The patient's identity and physical location wereverified at the time of this visit. Either the patient or their legal insurance account representative has been informed of the risks and benefits of -- and alternatives to -- treatment through a remote evaluation andconsents to proceed with the evaluation remotely. 47 [...] 0.70 - 1.40 mg/dL Final URINALYSIS: Specific [place], Ur Date Value Ref Range Status 07/08/2023 [...] (FLONASE) 50 mcg/actuation nasal spray Use 1 [place] in each nostril once daily. Cholestyramine, Bulk, [...] Level: 4 - Moderate [facility] History of Present illness Narrative* Ernestina Tong, RT(R) - 07/09/2023 1:20 PM EDT Radiology Service Progress Note DATE OF SERVICE: [...] PATIENT PRESENTS WITH AN IMPLANTABLE OR ATTACHED CONCIERGE MANAGER: No ALLERGIES: Reviewed and unchanged CONTRAST ALLERGY: [...] DEPARTMENT: CT; Exam(s) Completed: Urogram SIGNATURE: RT Jackie(Paula) PATIENT NAME: Marcelino Araiza DATE: July 09, 2023 TIME: 4:11 PM documented in this [facility]04-[facility]-2024 NoteHNO ID: [id number] Author: ERNESTINA TONG RT(R) Service: ? Author Type: Equity Director Type: Progress Notes Filed: 07/09/2023 16:12 Note [...] PATIENT PRESENTS WITH AN IMPLANTABLE OR ATTACHED CONCIERGE MANAGER: No ALLERGIES: Reviewed and unchanged CONTRAST ALLERGY: [...] Araiza DATE: July 09, 2023 TIME: 4:11 [facility]04-11-2024 History of Present illness Narrative* Maria Elena Carvajal APRN.REGISTERED VETERINARY TECHNICIAN - 07/08/2023 9:00 AM EDT Referring Provider: Chief Complaint: clot hematuria HPI [...] Negative per patient report. She presented to [facility] ED on 07/04/23 with clot hematuria, [...] It was not completely healed. An 8 Vincentian cone-tip catheter was used to gently cannulate [...] was used for placement of a 6 Vincentian 26 cm JJ stent with positioning in [...] fulguration Surgeon: Ashley Fair [place] [facility] [place]imen's removed: Bladder biopsy Description of Procedure: [...] SYSTEMS GENERAL: Negative for fevers or chills; +"feels like I can sweat" HEENT: Negative for sudden vision or hearing [...] Adult) Pulse 97 Ht 172.7 cm (5' 8") Wt 108 kg (238 lb 1.6 oz) [...] CT urogram -Coordinate follow up virutal visit [facility] Dr. Lares after imaging completed. Further plan pending imaging results. Reviewed signs/symptoms that would warrant sooner evaluation including but not limited to fever, shaking chills, irretractable pain or vomiting Discussed with Dr. Lares Will fax today's office visit note to patient's local urologist Dr. Ashley Fair at [phone] I spent a total of 45 minutes on the date of the service which included preparing to see the patient, bqtq-kp-hykw patient care, completing clinical documentation, obtaining and/or reviewing separately obtained history, counseling and educating the patient/family/caregiver, and ordering medications, tests, or procedures. Maria Elena Carvajal APRN.CNP documented in this encounter[facility]. [facility]-2024 NoteHNO ID: [id number] Author: MARIA ELENA CARVAJAL APRN.CNP Service: ? Author Type: Nurse Practitioner Type: Progress Notes Filed: 07/08/2023 11:59 Note Text: Referring Provider: Chief Complaint: clot hematuria JUSTO Araiza is a 47 year old female [...] Negative per patient report. She presented to [facility] ED on 07/04/23 with clot hematuria, [...] It was not completely healed. An 8 Vincentian cone-tip catheter was used to gently cannulate the left ureteral orifice and contrast was injected in retrograde fashion under fluoroscopic visualization revealing no evidence of obstruction, foreign body or abnormality. The same findings were found on the patient's right side with the retrograde pyelogram. An attempt (more content not included)... [facility]04-11-2024 Nurse Note* Ileana Cherry MA - 07/08/2023 8:58 AM EDT Post Void Residual done on patient with 0 cc residual volume remaining. notified. Ileana Cherry MA documented in this encounterMount St. Mary [facility]04-11-2024 NotePatient Outreach (UROLEONORAN) BRENDANMARCELINO L ([id number]) 1975 F Date Time Provider Department 07/08/23 [...] for genitourinary condition [Z13.89] Order(s):URINALYSIS, REFLEX MICROSCOPIC [MBH4087] Order #: [id number]. #:[id number] Prescriptions as of 07/12/2023 - doxycycline (VIBRA-TABS) [...] (FLONASE) 50 mcg/actuation nasal spray Use 1 [place] in each nostril once daily. 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 IBS (irritable bowel syndrome) [K58.9] Reactive airway disease with wheezing [J45.909] Encounter Status:Closed by EPIC, PRODUSER on 07/12/23[facility] 07-05-2023 Procedure [facility]04-07-2024 History and physical note Author Ashley Fair [facility] July 04, 2023 8:57pm Note Date/Time July 04, 2023 8:57 pm [facility] Medical Records Department [address] [place] [address] History & Physical Exam 07/04/232050 MR#: [id number] Acct: [id number] Name: MARCELINO ARAIZA Rep #:[id number] : 1975 47 From: Ashley Sanchez PCP: DUSTY LeC Status:ADM RICKY Location: [facility] [id number] HPI - General General Date of Admission: 07/04/23 [...] ago for squamous 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 [facility] Medical History (Updated 07/04/23 @ 20:56 [...] 3 current occupational status: employed current occupation: [employer]- Patient Liason sexually active: Yes Smoking [...] % (Auto) 58.2, Lymph % (Auto) 29.8, [place] % (Auto) 5.8, Eos % (Auto) 4.9, [...] 8:50 EDT Reading Location ID and State: [facility] [place] , Service support , Assessment & Plan Assessment/Plan (1) Gross hematuria: (2) Lesion of bladder: PLAN: Plan Urine culture is pending Follow labs and supportive care N.p.o. after midnight Plan for cystoscopy with fulguration in the OR tomorrow, bilateral retrograde pyelograms, possible ureteroscopy 07/04/232056 <Electronically signed by Ashley Fair MD> Cosigner Signature (if applicable): CC: TEJINDER Gomez; Dr. Ashley Fair MD~ Signed [facility] Work Phone: 1(696) 165-888504-07-2024 Discharge summary Author Cirilo Garcias [facility] July 04, 2023 10:32am Note Date/Time July 04, 2023 7:51 am [facility] Medical Records Department [address] [place] [address] Emergency Department Summary 07/04/23 MR#: [id number] Acct: [id number] Name: MARCELINO ARAIZA Rep #:[id number] : [...] of kidney stones that she knows of. [facility] Medical History Acid reflux Alcohol use Anemia [...] 3 current occupational status: employed current occupation: [employer]- Patient Liason sexually active: Yes Smoking [...] Clarity Turbid Urine pH 5.0 Ur Specific [place] 1.030 Urine Protein 500 H Urine Glucose [...] Provider: Ashley Gomez NP Referrals: Ashley Gomez SURVEY DIRECTOR, SURVEY DIRECTOR-C [Primary Care Provider] - What to do if you have Problems For any increased pain, shortness of breath, bleeding, nausea or vomiting, chestpain, or any unexpected problems, contact your Primary Care Provider. Call [facility] ([phone]) or report to the closest Emergency Room. Call 911 if necessary. 07/04/23 1032 <Electronically signed by Cirilo Garcias DO> Cosigner Signature (if applicable): CC: TEJINDER Gomez ~ Signed [facility] Work Phone: 1(141) 604-407304-07-2024 Discharge summary Author Cirilo [facility] July 04, 2023 10:32am Note Date/Time July 04, 2023 7:51 am [facility] Medical Records Department [address] [place] [address] Emergency Department Summary 07/04/23 MR#: [id number] Acct: [id number] Name: MARCELINO ARAIZA Rep #:[id number] : [...] of kidney stones that she knows of. [facility] Medical History Acid reflux Alcohol use Anemia [...] 3 current occupational status: employed current occupation: [employer]- Patient Liason sexually active: Yes Smoking [...] Clarity Turbid Urine pH 5.0 Ur Specific [place] 1.030 Urine Protein 500 H Urine Glucose [...] Provider: Ashley Gomez NP Referrals: Ashley Gomez SURVEY DIRECTOR, SURVEY DIRECTOR-C [Primary Care Provider] - What to do if you have Problems For any increased pain, shortness of breath, bleeding, nausea or vomiting, chestpain, or any unexpected problems, contact your Primary Care Provider. Call [facility] ([phone]) or report to the closest Emergency Room. Call 911 if necessary. 07/04/23 1032 <Electronically signed by Cirilo Garcias DO> Cosigner Signature (if applicable): CC: SURVEY DIRECTOR-C Ashley Gomez ~ Signed [facility] Work Phone: 1(232) 942-725903-22-2024 History of Present illness Narrative* TERE Chung [...] decision. - Also discussed potential referral [place] [facility]. 2. COVID-19 virus infection [...] days. Has Valtrex at home from her documentation lead and this seems to help. Review of [...] . Waist: 52 in documented in this [facility]03-14-2024 [facility]02-02-2024 Telephone encounter Note* Telephone Encounter - TERE Chung CNP - 04/30/2023 12:37 PM EST Rx sent. [facility] Miscellaneous Notes* Telephone Encounter - TERE Chung [...] prescribe this for her documented in this [facility]02-02-2024 Telephone encounter Note* Telephone Encounter - Merry Hoffman MA - 04/30/2023 12:09 PM EST Prescription Request: Last medication check: 04/28/23 Last physical exam: 11/02/22 Next scheduled appointment: 11/03/23 Last date of refill on this medication I don't see that we prescribe this for her [facility]01-31-2024 History of Present illness Narrative* Ashley Gomez, MEDICAL RECORDS MANAGER - REGISTERED VETERINARY TECHNICIAN - 04/28/2023 10:00 AM EST Images from the original note were not included. 04/28/2023 Marcelino Araiza (: 1975) is a 47 y.o. female , Established patient, here for evaluation of the following chief complaint(s): ER Follow-up ([place] [facility] abd pain, possible UTI-urologist advised her [...] for follow from an ER visit at [facility] on 04/21/23 due to RLQ abdominal [...] visit. Was scheduled next week for this. Autumn is doing well on her prescriptions and [...] Weight: 240 lb (109 kg) Height: 5' 8" (1.727 m) Body mass index is 36.49 [...] Thought content normal. Judgment: Judgment normal. Results: [facility] Imaging Services [address] [place] [address] Abdomen/Pelvis W IV Cont ONLY MR#: [id number] Acct: [id number] Name: MARCELINO ARAIZA Rep #: [id number] : 1975 F 47 From: Lamont ross MD PCP: TEJINDER Le Status: REG ER Study: Abdomen/Pelvis W IV Cont ONLY Date of Exam: Exam# [id number] Ordering Dr: Wagner Reynolds MD STUDY: CT [...] CNP 04/28/2023 10:31 AM documented in this [facility]01-24-2024 Discharge summary Author Wagner Reynolds [facility] April 21, 2023 7:11pm Note Date/Time April 21, 2023 4 :20pm [facility] Medical Records Department [address] [place] [address] Emergency Department Summary 04/21/23 MR#: [id number] Acct: [id number] Name: MARCELINO ARAIZA Rep #:[id number] : 1975 47 From: Wagner Reynolds MD PCP: TEJINDER Le Status:REG ER Location: ED HPI HPI - GI History of Present Illness Chief Complaint: Abd Pain Informant: patient Abdominal Pain/Flank Pain Onset: Today and Yesterday Context: Gradual Onset Timing: Continuous Location: [facility] Current Severity: Mild Maximum Severity: Mild Nausea/Vomiting/Emesis [...] history of similar pain. Recent Illness[facility] Medical History Abnormal bruising Abnormal weight loss [...] #30 ea 09/24/22 [Rx Last Taken Unknown] vdniycnb-xyps-xqck 8 mg-folic 400 mcg-K 50 mcg-lutein 300 [...] 3 current occupational status: employed current occupation: [employer] [facility]- Patient Liason sexually active: Yes Smoking Status: [...] % (Auto) 60.3 Lymph % (Auto) 29.7 [place] % (Auto) 4.9 Eos % (Auto) 3.7 [...] Clarity Clear Urine pH 6.0 Ur Specific [place] 1.010 Urine Protein Negative Urine Glucose (UA) [...] Ashley Gomez NP Referrals: Ashley Gomez NP, SURVEY DIRECTOR-C [Primary Care Provider] - 3-5 Days if [...] your Primary Care Provider. Call [facility] ([phone]) or report to the closest Emergency Room. Call 911 if necessary. 04/21/231910 <Electronically signed by Wagner Reynolds MD> Cosigner Signature (if applicable): CC: SURVEY DIRECTOR-C Ashley oGmez ~ Signed [facility] Work Phone: 1(722) 948-853410-04-2023 Telephone encounter Note* Telephone Encounter - TERE Chung CNP - 12/30/2022 1:42 PM EDT Rx sent. [facility] as scheduled. [id number] Miscellaneous Notes* Telephone Encounter - TERE Chung [...] was new on 10/30/22 documented in this [facility]10-04-2023 Telephone encounter Note* Telephone Encounter - Merry Hoffman MA - 12/30/2022 8:50 AM EDT Prescription Request: Last medication check: none Last physical exam: 10/30/22 Next scheduled appointment: 05/05/23 Last date of refill on this medication we have not prescribed this pt was new on 10/30/22 [facility]-5255 History of Present illness Narrative* TERE Chung [...] (7-10) for up to 5 days., Starting 12/16/2022, Until 12/21/2022 at 2359, Normal - Will obtain imaging [...] (7-10) for up to 5 days., Starting 12/16/2022, Until 12/21/2022 at 2359, Normal 3. Flu vaccine need [...] Weight: 219 lb (99.3 kg) Height: 5' 8" (1.727 m) Body mass index is 33.3 [...] obtaining consent, and per orders of Ashley GRMIALDO, injection of 0.5ml flu vaccine given in right deltoid by Dione Lemus. Patient instructed to report any adverse reaction immediately. documented in this [facility]08-28-2023 Telephone encounter Note* Telephone Encounter - TERE Chung CNP - 11/23/2022 10:40 AM EDT Rx sent. Follow [facility] as scheduled. [facility]3320 Miscellaneous Notes* Telephone Encounter - TERE Chung CNP - 11/23/2022 10:40 AM EDT Rx sent. Follow up as scheduled. * Telephone Encounter - Dione Lemus MA - 11/23/2022 10:22 AM EDT Prescription Request: Last medication check: none Last physical exam: 10/30/22 Next scheduled appointment: 05/05/23 Last date of refill on this medication we have not filled this for her yet. documented in this [place] [address]-28-2023 Telephone encounter Note* Telephone Encounter - Dione Lemus MA - 11/23/2022 10:22 AM EDT Prescription Request: Last medication check: none Last physical exam: 10/30/22 Next scheduled appointment: 05/05/23 Last date of refill on this medication we have not filled this for her yet. [place] [id number] Telephone encounter Note* Telephone Encounter - Dione Lemus MA - 10/30/2022 8:52 AM EDT Updating HM for colonoscopy 11/07/20 and pap 07/16/22 [place] [id number] Miscellaneous Notes* Telephone Encounter - Dione Lemus MA - 10/30/2022 8:52 AM EDT Updating HM for colonoscopy 11/07/20 and pap 07/16/22 documented in this encounterSMiddletown HospitalXbouug04-19-8633 History of Present illness Narrative* Ashley Gomez APRN - ROSALIA - 10/30/2022 8:00 AM EDT Images from [...] physical. Previous PCP was Dr. Murphy through [place] in [place]. Does follow up with other specialists- Dr. Tam (GI in [place]), [facility] [employer]- Dr. Juárez ([place]), Dr. Ashley Fair (Urology in [place]), Dr. Marshall (Pulmonology), Dr. Lim (Dermatology). Past [...] nervous/anxious. BP 118/66 Pulse 80 Ht 5' 8" (1.727 m) Wt 219 lb (99.3 kg) [...] tablet Take by mouth every other day. crraxyxffndl-xsxs-zrjazxql-folic acid (Centrum) chewable tablet Chew 1 tablet [...] any adverse reaction immediately. documented in this [facility]04-12-2023 NotePap Smear Specimen AdequacyApril 2022 11:12amComment.Satisfactory for evaluation. No endocervical component is identified.[facility] A#[id number] HospitalCom[facility] on above:Satisfactory for evaluation. No endocervical component is identified.07-08-2022 NotePap Smear Specimen AdequacyApril 2022 11:12amComment.Satisfactory for evaluation. No endocervical component is identified.[facility] A#[id number] Memorial HospitalComharper university hospital on above:Satisfactory for evaluation. No endocervical component is identified. 07-08-2022 NotePap Smear Specimen AdequacyApril 2022 11:12amComment. Satisfactory for evaluation. No endocervical component is identified.[facility] A#[id number] Memorial HospitalComment on above:Satisfactory for evaluation. No endocervical component [...] Nadia Bolanos PA-C 06/15/20[address]03-20-2023 History of Present illness Narrative* Analilia [...] 15, 2022 1:30 PM documented in this encounterMount [facility]. [facility]03-20-2023 History of Present illness Narrative* Marcelino [...] 15, 2022 11:29 AM documented in this encounterMount St. [facility]03-20-2023 History of Present illness Narrative* Nadia [...] appetite. + nasal congestion and drainage. Notes "cold sweats". Denies fever/chills, vomiting, diarrhea. She was tested [...] (FLONASE) 50 mcg/actuation nasal spray Use 1 [place] in each nostril once daily. albuterol HFA [...] TABLET - BENZONATATE 100 MG CAPSULE - X-GBSEA-wnvdaoex 2. SOB (shortness of breath) - ICD9: [...] and when to seek care sooner. - E-CFEXY-masbawhk - US DVT LOWER RT-normal The patient indicates understanding of these issues and agrees with the plan. Nadia Bolanos PA-C documented in this encounterMount St. Mary Hospital02-27-2023 Miscellaneous Notes* Telephone Encounter - Marck Alexander RN - 05/25/2022 12:08 PM EST Pharmacy escripts requesting the following refill: Requested Prescriptions Pending Prescriptions Disp Refills dicyclomine (BENTYL) 10 mg capsule 30 capsule 3 Sig: Take 1 capsule by mouth three times daily as needed (abdominal pain). Please review and advise. Marck Alexander RN documented in this encounterMount St. Mary Hospital01-06-2023 Miscellaneous Notes* Telephone Encounter - Marck [...] still obtain breath testing. documented in this encounterMount St. Mary Hospital01-04-2023 History of Present illness Narrative* Cheryl Tucker LPN - 04/01/2022 12:22 PM EST Name: Marcelino Araiza [facility]#: [id number] Date: 04/01/2022 24 HOUR pH PROBE REMOVAL The pH probe was removed by patient and the data was downloaded from the storm chaser for physician review. Cheryl Tucker LPN documented in this encounterMount St. Mary Hospital12-22-2022 History of Present illness Narrative* Cheryl Tucker LPN - 03/19/2022 12:01 PM EST Name: Marcelino Araiza [facility]#: [id number] Date: 03/19/2022 24 HOUR pH PROBE INSERTION [...] removal. Cheryl Tucker LPN documented in this encounterMount St. [facility]12-20-2022 Miscellaneous Notes* Telephone Encounter - TONNY Perez - 03/17/2022 1:51 PM EST Called patient to reschedule appointment from 03/18 to Apr 24, 2022 at 1000 am.TONNY Perez documented in this encounterMount St. [facility] Hospital12-15-2022 History of Present illness Narrative* TONNY Perez - 03/12/2022 8:46 AM EST Glucose - SIBO Hydrogen Breath Test March 12, 2022 Referring Physician: Sada Snyder MD Indication Bloating, Abdominal pain, Diarrhea, Milk intolerance Prep: 4 weeks followin hour before: No Smoking Day of test - No gum chewing Pain Level: none Baseline Hydrogen: 1 Methane: [address] Time given: 935am 75 grams / 75 grams Clock time start: 940am 15 minutes Hydrogen: 5 Methane: 9 Shabbir Claudia, CT 30 minutes Hydrogen: 3 Methane: 8 Shabbir Claudia, CT 45 minutes Hydrogen: 3 Methane: 9 Shabbir Taylor, CT 1 hour Hydrogen: 3 Methane: [address] 1 hour, 15 minutes Hydrogen: 1 Methane: [address] 1 hour, 30 minutes Hydrogen: 2 Methane: 8 TONNY Perez Symptoms developed during the study: Flatulence/Gas,achy stomach Patient Results Preliminary Test Results (not given to patient): Pending TONNY Perez Patient must be = Hydrogen >20 or Methane >10 in order to be positive for Bacterial Overgrowth documented in this encounterMount St. [facility]12-08-2022 History of Present illness Narrative* Mickey Andres MD - 03/05/2022 9:26 AM EST Rev'd documented in this encounterMount St. [facility]12-07-2022 History of Present illness Narrative* TONNY [...] Methane PPM: 8 Shabbir Taylor, CT Time: 1040am / 40 minutes Hydrogen [...] patient): Pending TONNY Perez documented in this encounterMount St. Mary Hospital11-16-2022 Miscellaneous Notes* Telephone Encounter - Paulina [...] Please file if appropriate documented in this encounterMount St. [facility]10-27-2022 Miscellaneous Notes* Telephone Encounter - Marck Alexander RN - 01/22/2022 9:54 AM EDT GI workup by Dr. Snyder has been faxed per pt request. Marck Alexander RN documented in this encounterMount St. Mary Hospital10-10-2022 History of Present illness Narrative* Ashley Owens APRN.REGISTERED VETERINARY TECHNICIAN - 01/05/2022 7:19 PM EDT CC: Patient presents with: UTI: Burning with urination, lower abd pain x2 days Patient has significant history of UTIs says this feels exactly the same no different. HPI Marcelino Araiza is a 46 year old female [...] (FLONASE) 50 mcg/actuation nasal spray Use 1 [place] in each nostril once daily. omeprazole (PRILOSEC) [...] Patient agreeable to treatment plan. Ashley Owens APRN.CNP documented in this encounterMount St. Mary Hospital07-06-2022 Miscellaneous Notes* Telephone Encounter - Keila Gabriel LPN - 10/01/2021 10:35 AM EDT Pt requesting refills on the following medication. Please file if appropriate. documented in this encounterMount St. [facility] Hospital11-09-2020 History of Present illness Narrative* Marcelino MuhammadRt)Gonzalo - 02/05/2020 12:00 PM EST Radiology Service [...] 05, 2020 12:06 PM documented in this encounterMount St. Mary HospitalConsult note Author Norma Cardona [facility] July 05, 2023 2:48pm Note Date/Time July 05, 2023 2:48 pm [facility] Medical Records Department [address] [place] [address] Counseling Note - Pharmacy 07/05/23 1446 MR#: [id number] Acct: [id number] Name: MARCELINO ARAIZA Rep #:[id number] : 1975 47 From: Norma Cardona PCP: Ashley Gomez NP-C Status:ADM RICKY Y Location: [place] [address] Pharmacy [facility] Service has performed discharge medication reconciliation [...] Signature (if applicable): Date CC: ~ Signed [facility] Work Phone: Discharge summary Author Ashley Fair [facility] June 10, 2023 7:55am Note Date/Time June 10, 2023 7:5 3am [facility] Medical Records Department [address] [place] [address] Instructions for Home/Discharge Instructions 06/10/23 0752 MR#: [id number] Acct: [id number] Name: MARCELINO ARAIZA Rep #:[id number] : 1975 47 From: Ashley Sanchez PCP: TEJINDER Le [place] [facility] [place] Instructions Diet Discharge Diet: No restrictions [...] Ashley Fair Primary Care Provider: Ashley Gomez SURVEY DIRECTOR Consulting Providers: Santana Crespo Discharge Orders/Prescriptions Prescriptions: [...] Referrals / Follow Up: Ashley Gomez NP, SURVEY DIRECTOR-C [Primary Care Provider] - Disposition Disposition (needs filled in before D/C Order can be placed): Home, Self Care 06/10/23 0755<Electronically signed by Ashley Fair MD>Ashley Fair MD CC: SURVEY DIRECTOR-C Ashley Gomez; Dr. Santana Crespo MD ~ Signed [facility] Work Phone: Discharge summary Author Ashley Fair [facility] July 05, 2023 1:12pm Note Date/Time July 05, 2023 1:08 pm [facility] Medical Records Department [address] [place] [address] Instructions for Home/Discharge Instructions 07/05/23 1308 MR#: [id number] Acct: [id number] Name: MARCELINO ARAIZA Rep #:[id number] : [...] Fair Primary Care Provider: Ashley Gomez NP Discharge Orders/Prescriptions Prescriptions: New oxycodone-acetaminophen [Percocet] 5-325 [...] Referrals / Follow Up: Ashley Gomez NP, SURVEY DIRECTOR-C [Primary Care Provider] - Disposition Disposition (needs filled in before D/C Order can be placed): Home, Self Care 07/05/23 1312<Electronically signed by Ashley Fair MD>Ashley Fair MD CC: DUSTYC Ashley Gomez ~ Signed [facility] Work Phone: Evaluation noteNo assessment information available [facility] Work Phone: Evaluation note* Diagnosis Left upper quadrant abdominal pain documented in this encounter [facility]* Diagnosis Onset Date Resolution Status Cough acute Bronchitis resolved Moderate anxiety acute Severe depression acute Vitamin D deficiency acute Establishing care with new doctor, encounter for noneactive [facility] Work Phone: Evaluation note* Diagnosis Burning with urination- Primary Dysuria [facility] Diagnosis Onset Date Resolution Status Moderate [...] both knees noneactive BMI 35.0-35.9,adult noneacti ve [facility] Work Phone: Evaluation note* Diagnosis Left upper quadrant abdominal pain [facility] Diagnosis Bloating Flatulence, eructation, and gas pain [facility] Diagnosis Bloating- Primary Flatulence, eructation, and gas pain [facility]* Diagnosis Bloating Flatulence, eructation, and gas pain [facility] Abdominal pain, unspecified abdominal location [facility] Diagnosis Abdominal pain, unspecified abdominal location- Primary [facility] Diagnosis Onset Date Resolution Status Moderate [...] noneactiv e Screening for breast cancer noneactive [facility] Work Phone: Evaluation note* Diagnosis Onset Date Resolution Status Moderate anxiety acute Severe depression acute Urinary incontinence noneact aurelia Right calf pain noneactive Suspected sleep apnea noneac tive Essential hypertension nonea ctive Bilateral knee pain noneacti ve New onset headache noneactiv e Screening for breast cancer noneactive Moderate anxiety acute Severe depression acute Sleep concern noneactive [facility] Work Phone: Evaluation note* Diagnosis Onset [...] nonea ctive Bilateral knee pain noneacti ve [facility] Work Phone: Evaluation note* Diagnosis Left sided abdominal pain Abdominal pain, unspecified site [facility] Diagnosis Onset Date Resolution [...] burning noneactive Acute upper respiratory infection acute [facility] Work Phone: Evaluation note* Diagnosis Acute cough- Primary SOB (shortness of breath) Shortness of breath Right leg pain Pain in limb [facility] Diagnosis Onset Date Resolution Status Moderate [...] for routine gynecological examination noneactive Cough acute [facility] Work Phone: Evaluation note* Diagnosis Onset [...] bowel syndrome) chronic Nausea and vomiting chronic [facility] Work Phone: Evaluation note* Diagnosis Onset Date Resolution Status Frequent urinary tract infections acute Vaginal burning noneactive Encounter for routine gynecological examination noneactive Cough acute Bloating chronic Chronic diarrhea chronic IBS (irritable bowel syndrome) chronic Nausea and vomiting chronic Frequent urinary tract infections acute LGSIL on Pap smear of cervix acute Postmenopausal state acute [facility] Work Phone: Evaluation note* Diagnosis Onset Date Resolution Status Encounter for routine gynecological examination noneactive Cough acute Bloating chronic Chronic diarrhea chronic IBS (irritable bowel syndrome) chronic Nausea and vomiting chronic Frequent urinary tract infections acute LGSIL on Pap smear of cervix acute Postmenopausal state acute [facility] Work Phone: Evaluation note* Diagnosis Well [...] vaccination Need for prophylactic vaccination with combined aiybhoecwv-vdowhac-jwvhbopin (DTP) vaccine Screening for lipoid disorders Screening for diabetes mellitus [facility] Diagnosis Irritable bowel syndrome without diarrhea [facility] Diagnosis Primary hypertension Unspecified essential hypertension [facility]* Diagnosis Injury due to fall, initial encounter- Primary Left knee injury, initial encounter Flu vaccine need [facility]* Diagnosis Injury due to fall, initial encounter Left knee injury, initial encounter [facility] Diagnosis Depressive disorder Depressive disorder, not elsewhere classified Anxiety Anxiety state, unspecified [facility]* Diagnosis Right leg pain Pain in limb [facility] Diagnosis Irritable bowel syndrome without diarrhea- Primary Irritable bowel syndrome without diarrhea [facility] Diagnosis Right lower quadrant abdominal pain- [...] specified viral diseases [facility]* Diagnosis Irritable bowel syndrome with diarrhea Irritable bowel syndrome [facility]* Diagnosis Class 2 obesity due to excess calories without serious comorbidity with body mass index (BMI) of 36.0 to 36.9 in adult- Primary [facility] Diagnosis Onset Date Resolution Status IBS (irritable bowel syndrome) [facility] Work Phone: Evaluation note* Diagnosis Class 2 obesity due to excess calories without serious comorbidity with body mass index (BMI) of 37.0 to 37.9 in adult- Primary COVID-19 virus infection Herpes zoster without complication documented in this encounter [facility] note* Diagnosis Onset Date Resolution Status IBS (irritable bowel syndrome) chronic Gross hematuria acute Lesion of bladder acute [facility] Work Phone: evaluation note* Diagnosis Gross hematuria- Primary Left flank pain Abdominal pain, unspecified site documented in this encounter [facility] note* Diagnosis Gross hematuria documented in this encounter [facility] note* Diagnosis Screening for genitourinary condition Screening for other and unspecified genitourinary condition documented in this encounter [facility] note* Diagnosis Left lower quadrant abdominal pain- Primary Hematuria, unspecified type documented in this encounter [facility] note* Diagnosis Left lower quadrant abdominal pain- Primary Gross hematuria documented in this encounter [facility] note* Diagnosis Onset Date Resolution Status IBS (irritable bowel syndrome) chronic Gross hematuria resolved Lesion of bladder resolved LGSIL on Pap smear of cervix acute Encounter for routine gynecological examination noneactive Hematuria noneactive [facility] Work Phone: evaluation note* Diagnosis Depressive disorder- Primary Depressive disorder, not elsewhere classified Anxiety Anxiety state, unspecified Gross hematuria Left lower quadrant abdominal pain Osteoarthritis of both knees, unspecified osteoarthritis type [facility]* Diagnosis Depressive disorder Depressive disorder, not elsewhere classified Anxiety Anxiety state, unspecified [facility]* Diagnosis Left flank pain- Primary Abdominal pain, unspecified site Hematuria, unspecified type [facility]* Diagnosis Other hydronephrosis- Primary Gross hematuria Left lower quadrant abdominal pain documented in this encounter [facility] note* Diagnosis Left flank pain Abdominal pain, unspecified site Hematuria, unspecified type [facility] Diagnosis Well adult exam- Primary Routine [...] pneumococcal conjugate vaccine [facility]* Diagnosis Gross hematuria Left lower quadrant abdominal pain Other hydronephrosis documented in this encounter [facility] note* Diagnosis Acute cough SOB (shortness of breath) Shortness of breath documented in this encounter [facility] note* Diagnosis Cough Suspected COVID-19 virus infection documented in this encounter [facility] note* Diagnosis Inflammatory polyarthropathy (HCC)- Primary Unspecified inflammatory polyarthropathy documented in this encounter [facility] note* Diagnosis Other fatigue- Primary Depressive disorder Depressive disorder, not elsewhere classified Anxiety Anxiety state, unspecified documented in this encounter [facility] note* Diagnosis Other fatigue- Primary Depressive disorder Depressive disorder, not elsewhere classified Anxiety Anxiety state, unspecified documented in this encounter [facility] note* Diagnosis Osteoarthritis of both knees, unspecified osteoarthritis type documented in this encounter [facility] note* Diagnosis Mild intermittent asthma without complication documented in this encounter [facility] note* Diagnosis Vitamin D deficiency- Primary Primary [...] LDL cholesterol level [facility]* Diagnosis Irritable bowel syndrome with diarrhea Irritable bowel syndrome [facility]* Diagnosis Neuropathy of right foot- Primary Depressive disorder Depressive disorder, not elsewhere classified Anxiety Anxiety state, unspecified Rash and nonspecific skin eruption Rash and other nonspecific skin eruption [facility]* Diagnosis Depressive disorder Depressive disorder, not elsewhere classified Anxiety Anxiety state, unspecified [facility] Additional Instructions Your labs, CAT scan and urine were all normal. Tylenol Motrin for pain. Follow- up if not improving.[facility] Work Phone: Hospital Discharge instructions Additional Instructions Implant Used?: [facility] Work Phone: Hospital Discharge instructions Additional Instructions [facility]* Attachments The following attachments cannot be sent through Care Everywhere. * Nocturnal (Nighttime) Leg Cramps ([place]) * Tdap Vaccine ([place]) [facility] Attachments The following attachments cannot be sent through Care Everywhere. * Phentermine, ADULT ([place]) [facility] Attachments The following attachments cannot be sent through Care Everywhere. * Semaglutide, ADULT ([place]) [facility] Attachments The following attachments cannot be sent through Care Everywhere. * Pneumococcal Conjugate Vaccine (20-Valent), ADULT ([place]) documented in this [facility] for referral (narrative)* Diagnostic Procedure Only (Urgent) - Closed Specialty Diagnoses / Procedures Referred By Contac t Referred To Contact US IMAGING Diagnoses Right leg pain Procedures US DVT LOWER RT DUP-SCAN XTR VEINS UNILATERAL/LIMITED STUDY Nadia Bolanos PA-C [address] [place] [address] Us Imaging Referral ID Status Reason Start Date Expiration Date V isits Requested Visits Authorized [id number] Closed Auto-Generate d Referral 06/15/2022 07/15/2023 1 1 [facility] for referral (narrative)* Diagnostic Procedure Only (Urgent) - Closed Specialty Diagnoses / Procedures Referred By Contac t Referred To Contact US IMAGING Diagnoses Right leg pain Procedures US DVT LOWER RT DUP-SCAN XTR VEINS UNILATERAL/LIMITED STUDY Nadia Bolanos PA-C [address] [place] [address] [place] [address] Referral ID Status Reason Start Date Expiration Date V isits Requested Visits Authorized [id number] Closed Auto-Generate d Referral 06/15/2022 07/15/2023 1 1 [facility] for referral (narrative)* Consultation (Routine) - Pending Review Specialty Diagnoses / Procedures Referred By Contac t Referred To Contact Urology Diagnoses Gross hematuria Left lower quadrant abdominal pain Procedures SD OFFICE/OUTPATIENT NEW HIGH MDM 60 MINUTES Ashley Gomez APRN - REGISTERED VETERINARY TECHNICIAN [address] [place] [address] [place] [address] Cornell Holden MD [address] [place] [address] [address] [place] [address] Referral ID Status Reason Start Date Expiration Date Visits Requested Visits Authorized [id number] Pending Review Specialty Services Required 08/13/2023 08/12/2024 1 1 [facility] Consultation (Routine) - Pending Review Specialty Diagnoses / Procedures Referred By Contac t Referred To Contact Urology Diagnoses Left flank pain Hematuria, unspecified type Procedures SD OFFICE/OUTPATIENT NEW HIGH MDM 60 MINUTES Cachorro Vides DO [address] [place] [address] [facility] [address] [place] [address] Referral ID Status Reason Start Date Expiration Date Visits Requested Visits Authorized [id number] Pending Review Specialty Services Required 10/18/2023 10/17/2024 1 1 [facility] ([facility]ative)No reason for referral information [facility] Work Phone: Reason for visit Narrative* Diagnostic Procedure Only (Routine) - Closed Specialty Diagnoses / Procedures Referred By Contac t Referred To Contact Radiology / [facility] Diagnoses room 1 Procedures RADIOLOGIC EXAM CHEST 2 VIEWS XR CHEST [facility] [address] [place] [address] Referral ID Status Reason Start Date Expiration Date Visits Re quested Visits Authorized [id number] Closed 06/15/2022 03/28/[address] [facility] Chief Complaint and Reason for Visit Chief Complaint SCREENING RLE POSSIBLE DVT Chief Complaint SCREENING RLE POSSIBLE DVT DYSPHAGIA Chief Complaint DYSPHAGIA RAPID COVID/COUGH SURVEY DIRECTOR, EST. CARE, PT NEEDS NPP E ORDER Reason for Visit Cough Bronchitis Moderate anxiety Severe depression Vitamin D deficiency Establishing care with new doctor, encounter for Chief Complaint SURVEY DIRECTOR, EST. 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 NPP E [...] of both knees BMI 35.0-35.9,adult Chief Complaint SURVEY DIRECTOR, EST. 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 NPP E [...] of both knees BMI 35.0-35.9,adult Chief Complaint SURVEY DIRECTOR, EST. 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 NPP E [...] SHORTNESS OF BREATH SOB, COugh SICK Annual (DANCE CRITIC) Shortness of breath INT LABS Cough Reason [...] SHORTNESS OF BREATH SOB, COugh SICK Annual (DANCE CRITIC) Shortness of breath INT LABS Cough Consult [...] SHORTNESS OF BREATH SOB, COugh SICK Annual (DANCE CRITIC) Shortness of breath INT LABS Cough Consult [...] SHORTNESS OF BREATH SOB, COugh SICK Annual (DANCE CRITIC) Shortness of breath INT LABS Cough Consult [...] FU E-ORDER Cysto,Biopsy,Fulguration,Bladder Tu PREOP HEMATURIA Annual (DANCE CRITIC) Reason for Visit IBS (irritable bowel syndrome) Gross hematuria Lesion of bladder LGSIL on Pap smear of cervix Encounter for routine gynecological examination Hematuria Chief Complaint Admit Date Follow up July 07, 2024 10: 24am Annual (DANCE CRITIC) August 30, 2024 9:48a m PELVIC PAIN September 01, 2024 12:52 pm Reason for Visit Admit Date Gastroparesis July 07, 2024 10: 24am IBS (irritable bowel syndrome) June 10:24am Abdominal pain July 07, 2024 10: 24am ASCUS of cervix with negative high risk HPV August 30, 2024 9:48am Skin lesion August 30, 2024 9:48a m Vaginal atrophy August 30, 2024 9:48a m Encounter for routine gynecological exam ination August 30, 2024 9:48am Chief Complaint Admit Date SCREENING May 03, 2024 1 0:11am Follow up July 07, 2024 10: 24am Annual (DANCE CRITIC) August 30, 2024 9:48a m Reason for Visit Admit Date Gastroparesis July 07, 2024 10: 24am IBS (irritable bowel syndrome) June 10:24am Abdominal pain July 07, 2024 10: 24am Encounter for routine gynecological exam ination August 30, 2024 9:48am Chief Complaint Admit Date Follow up July 07, 2024 10: 24am Annual (DANCE CRITIC) August 30, 2024 9:48a m PELVIC PAIN September 01, 2024 12:52 pm XRAY OF FINGERS October 09, 2024 8:35 pm Chief Complaint Admit Date Follow up July 07, 2024 10: 24am Annual (DANCE CRITIC) August 30, 2024 9:48a m PELVIC PAIN September 01, 2024 12:52 pm XRAY OF FINGERS October 09, 2024 8:35 pm 3 M FU October 18, 2024 9:50 am Family History Relationship Condition Age at Onset Recorded Date/T [...] Unknown grandfather Malignant neoplasm Unknown Advance Directives Advance Directive Response Recorded Date/ Time Living Will No July 28, 2020 8: 39am Power of Rake Operator No July 28, 2020 8:39am Documents on File Type Date Recorded 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 Advance Directive(s) 11/07/2020 6:26 AM Advance Directive Response Recorded Date/ Time Living Will No October 31, 2021 1:50pm Power of Rake Operator No October 31 1:50pm Advance Directive Response Recorded Date/ Time Living Will No October 31, 2021 12:50pm Power of Rake Operator No October 31 12:50pm Advance Directive Response Recorded Date/ Time Living Will No February 19 6:37pm Power of Rake Operator No February 19, 2022 6:37pm Advance Directive Response Recorded Date/ Time Living Will No February 19 7:37pm Power of Rake Operator No February 19, 2022 7:37pm Advance Directive Response Recorded Date/ Time Living Will No June 15, 2022 11:52pm Power of Rake Operator No June 15 11:52pm Advance Directive Response Recorded Date/ Time Living Will No April 21 4:17pm Power of Rake Operator No April 21, 2023 4:17pm Advance Directive Response Recorded Date/ Time Living Will No June 03, 2023 9:30am Power of Rake Operator No June 02 9:30am Advance Directive Response Recorded Date/ Time Living Will No July 04, 2023 7:36am Power of Rake Operator No July 03 7:36am Advance Directive Response Recorded Date/ Time Living Will No July 04, 2023 11:39am Power of Rake Operator No July 03 11:39am Documents on File Type Date Recorded 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 Advance Directives and Livin g Will 11/10/2023 9:51 AM Documents on File Type Date Recorded 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 Advance Directives and Livin g Will 11/10/2023 9:51 AM Reason for Referral Specialty Diagnoses / Procedures Referred By Contac t Referred To Contact Radiology Diagnoses Irritable bowel syndrome without diarrhea Procedures NM gastric emptying solid Friend, Matty [address], [address] [place] [address] Referral ID Status Reason Start Date Expiration Date Visits Re quested Visits Authorized [id number] Closed 11/11/2022 05/10/2023 1 1 Specialty Diagnoses / Procedures Referred By Contac t Referred To Contact CT IMAGING Diagnoses Gross hematuria Procedures CT UROGRAM WO/W IVCON CT ABD & PELVIS W/WO CONTRST 1+ BODY REGNS Maria Elena Carvajal, MEDICAL RECORDS MANAGER.REGISTERED VETERINARY TECHNICIAN [address] [place] [address] [place] [address] Referral ID Status Reason Start Date Expiration Date Visits Requested Visits Authorized [id number] Authorized Auto-Generat ed Referral 07/08/2023 08/06/2024 1 1 Specialty Diagnoses / Procedures Referred By Contac t Referred To Contact Radiology Diagnoses Gross hematuria Left lower quadrant abdominal pain Other hydronephrosis Procedures NM kidney flow/function w/wo Christa Cameron, MEDICAL RECORDS MANAGER - REGISTERED VETERINARY TECHNICIAN [address] [place] [address] Referral ID Status Reason Start Date Expiration Date V isits Requested Visits Authorized [id number] Pending Review 10/27/2023 10/26/2024 3 3 Referral ID Status Reason Start Date Expiration Date V isits Requested Visits Authorized [id number] Authorized 10/27/2023 10/26/2024 3 3 Summary Purpose [...] or prosecute any alcohol or drug abuse patient.[facility] the event this information is protected by the Federal Confidentiality of Alcohol and Drug Abuse Patient Records regulations: The Federal rules restrict any use of the information to criminally investigate or prosecute any alcohol or drug abuse patient.[facility] the event this information is protected by the Federal Confidentiality of Alcohol and Drug Abuse Patient Records regulations: The Federal rules restrict any use of the information to criminally investigate or prosecute any alcohol or drug abuse patient.[facility] the event this information is protected by the Federal Confidentiality of Alcohol and Drug Abuse Patient Records regulations: The Federal rules restrict any use of the information to criminally investigate or prosecute any alcohol or drug abuse patient.[facility] the event this information is protected by the Federal Confidentiality of Alcohol and Drug Abuse Patient Records regulations: The Federal rules restrict any use of the information to criminally investigate or prosecute any alcohol or drug abuse patient.[facility] the event this information is protected by the Federal Confidentiality of Alcohol and Drug Abuse Patient Records regulations: The Federal rules restrict any use of the information to criminally investigate or prosecute any alcohol or drug abuse patient.[facility] the event this information is protected by the Federal Confidentiality of Alcohol and Drug Abuse Patient Records regulations: The Federal rules restrict any use of the information to criminally investigate or prosecute any alcohol or drug abuse patient.[facility] the event this information is protected by the Federal Confidentiality of Alcohol and Drug Abuse Patient Records regulations: The Federal rules restrict any use of the information to criminally investigate or prosecute any alcohol or drug abuse patient.[facility] the event this information is protected by the Federal Confidentiality of Alcohol and Drug Abuse Patient Records regulations: The Federal rules restrict any use of the information to criminally investigate or prosecute any alcohol or drug abuse patient.[facility] the event this information is protected by the Federal Confidentiality of Alcohol and Drug Abuse Patient Records regulations: The Federal rules restrict any use of the information to criminally investigate or prosecute any alcohol or drug abuse patient.[facility] the event this information is protected by the Federal Confidentiality of Alcohol and Drug Abuse Patient Records regulations: The Federal rules restrict any use of the information to criminally investigate or prosecute any alcohol or drug abuse patient.[facility] the event this information is protected by the Federal Confidentiality of Alcohol and Drug Abuse Patient Records regulations: The Federal rules restrict any use of the information to criminally investigate or prosecute any alcohol or drug abuse patient.[facility] the event this information is protected by the Federal Confidentiality of Alcohol and Drug Abuse Patient Records regulations: The Federal rules restrict any use of the information to criminally investigate or prosecute any alcohol or drug abuse patient.[facility] the event this information is protected by the Federal Confidentiality of Alcohol and Drug Abuse Patient Records regulations: The Federal rules restrict any use of the information to criminally investigate or prosecute any alcohol or drug abuse patient.[facility] the event this information is protected by the Federal Confidentiality of Alcohol and Drug Abuse Patient Records regulations: The Federal rules restrict any use of the information to criminally investigate or prosecute any alcohol or drug abuse patient.[facility] the event this information is protected by the Federal Confidentiality of Alcohol and Drug Abuse Patient Records regulations: The Federal rules restrict any use of the information to criminally investigate or prosecute any alcohol or drug abuse patient.[facility] the event this information is protected by the Federal Confidentiality of Alcohol and Drug Abuse Patient Records regulations: The Federal rules restrict any use of the information to criminally investigate or prosecute any alcohol or drug abuse patient.[facility] the event this information is protected by the Federal Confidentiality of Alcohol and Drug Abuse Patient Records regulations: The Federal rules restrict any use of the information to criminally investigate or prosecute any alcohol or drug abuse patient.[facility] Hospital[facility] the event this information is protected by the Federal Confidentiality of Alcohol and Drug Abuse Patient Records regulations: The Federal rules restrict any use of the information to criminally investigate or prosecute any alcohol or drug abuse patient.[facility] the event this information is protected by the Federal Confidentiality of Alcohol and Drug Abuse Patient Records regulations: The Federal rules restrict any use of the information to criminally investigate or prosecute any alcohol or drug abuse patient.[facility] the event this information is protected by the Federal Confidentiality of Alcohol and Drug Abuse Patient Records regulations: The Federal rules restrict any use of the information to criminally investigate or prosecute any alcohol or drug abuse patient.[facility] the event this information is protected by the Federal Confidentiality of Alcohol and Drug Abuse Patient Records regulations: The Federal rules restrict any use of the information to criminally investigate or prosecute any alcohol or drug abuse patient.[facility] the event this information is protected by the Federal Confidentiality of Alcohol and Drug Abuse Patient Records regulations: The Federal rules restrict any use of the information to criminally investigate or prosecute any alcohol or drug abuse patient.[facility] Reason for Visit (unrecogniz ed section and content) Reason Comments Breath Hydrogen Test Specialty Diagnoses / Procedures Referred By Contac t Referred To Contact [facility] Diagnoses Bloating Procedures BREATH TEST GLUCOSE BREATH HYDROGEN/METHANE TEST Sada Snyder MD [address] [place] [address] [address] [place] [address] Referral ID Status Reason Start Date Expiration Date V isits Requested Visits Authorized [id number] Closed Auto-Generate d Referral 01/30/2022 01/29/2023 1 1 Reason Onset Date Comments Refill Request 10/01/2021 Reason Comments UTI Burning with urinati on, lower abd pain x2 days Reason Onset Date Comments Refill Request 02/11/2022 Specialty Diagnoses / Procedures Referred By Contshilpi t Referred To Contact [facility] Diagnoses Bloating Procedures BREATH TEST LACTOSE BREATH HYDROGEN/METHANE TEST Sada Snyder MD [address] [facility] [place] [address] [place] [address] Referral ID Status Reason Start Date Expiration Date V isits Requested Visits Authorized [id number] Closed Auto-Generate d Referral 02/18/2022 03/28/2022 1 1 Reason Comments Gas Reason Comments Patient Question Patient Update Reason Onset Date Comments Procedure 03/19/2022 Specialty Diagnoses / Procedures Referred By Contac t Referred To Contact [facility] Diagnoses Abdominal pain, unspecified abdominal location Procedures PH IMPEDANCE INSERT OFF MEDS ESOPHGL FUNCJ G-ESOP RFLX IMPD ELTRD Sada Galvin MD [address] [place] [address] [address] [place] [address] Referral ID Status Reason Start Date Expiration Date V isits Requested Visits Authorized [id number] Closed Auto-Generate d Referral 01/30/2022 01/29/2023 1 [...] diarrhea Procedures NM gastric emptying solid Friend, Matty [address], [address] [place] [address] Referral ID Status Reason Start Date Expiration Date Visits Re quested Visits Authorized [id number] Closed 11/11/2022 05/10/2023 1 1 Reason Onset Date Comments Med Refill 11/22/2022 Reason Comments Fall Knee Pain Left knee pain Reason Onset Date Comments Med Refill 12/30/2022 Reason Comments Radiology US Specialty Diagnoses / Procedures Referred By Raul beltran Referred To Contact [facility] Diagnoses Right leg pain Procedures US DVT LOWER RT DUP-SCAN XTR VEINS UNILATERAL/LIMITED STUDY Nadia Bolanos PA-C [address] [place] [address] [facility] [place] [address] Referral ID Status Reason Start Date Expiration Date V isits Requested Visits Authorized [id number] Closed Auto-Generate d Referral 06/15/2022 07/15/2023 1 1 Reason Comments ER Follow-up [facility] abd pain, possible UTI-urologist advised her to take the cephalexin TID Hyperglycemia Reason Onset Date Comments Med Refill 04/30/2023 Reason Comments Follow-up Medication follow up - adipex Health Maintenance PNA- declinesPP:4th Covid Reason Comments New Patient Hematuria Reason Comments Radiology CT Specialty Diagnoses / Procedures Referred By Raul beltran Referred To Contact CT IMAGING Diagnoses Gross hematuria Procedures CT UROGRAM WO/W IVCON CT ABD & PELVIS W/WO CONTRST 1+ BODY REGNS Maria Elena Carvajal, MEDICAL RECORDS MANAGER.REGISTERED VETERINARY TECHNICIAN [address] [place] [address] [facility] [place] [address] Referral ID Status Reason Start Date Expiration Date V isits Requested Visits Authorized [id number] Closed Auto-Generate d Referral 07/08/2023 08/06/2024 1 1 Reason Comments Blood In Urine Reason Comments ER Follow-up Went to [facility], was bleeding badly from her urethra, [...] was taken out on Wednesday. Went to [facility] to get a second opinion, [...] Urine Specialty Diagnoses / Procedures Referred By Contac t Referred To Contact Urology Diagnoses Gross hematuria Left lower quadrant abdominal pain Procedures SD OFFICE/OUTPATIENT NEW HIGH MDM 60 MINUTES Ashley Gomez, MEDICAL RECORDS MANAGER - REGISTERED VETERINARY TECHNICIAN [address] [place] [address] Cornell Holden MD [address] [place] [address] [address] [place] [address] Referral ID Status Reason Start Date Expiration Date V isits Requested Visits Authorized [id number] Closed Specialty Services Required 08/13/2023 08/12/2024 1 1 Reason Comments Nephrolithiasis Specialty Diagnoses / Procedures Referred By Contac t Referred To Contact Urology Diagnoses Left flank pain Hematuria, unspecified type Procedures SD OFFICE/OUTPATIENT NEW HIGH MDM 60 MINUTES Cachorro Vides, [address] [place] [address] [facility] [address] [place] [address] Referral ID Status Reason Start Date Expiration Date V isits Requested Visits Authorized [id number] Closed Specialty Services Required 10/18/2023 10/17/2024 1 1 Reason Onset Date Comments Other 10/27/2023 Lasix renal scan Reason Comments Annual Exam Blood Work Health Maintenance PNA vaccine-discuss with Cora BUENROSTRO vaccine-only had 3, doesn't want a 4th Specialty Diagnoses / Procedures Referred By Contac t Referred To Contact Radiology Diagnoses Gross hematuria Left lower quadrant abdominal pain Other hydronephrosis Procedures NM kidney flow/function w/wo Christa Cameron, MEDICAL RECORDS MANAGER - REGISTERED VETERINARY TECHNICIAN [address] [place] [address] Referral ID Status Reason Start Date Expiration Date V isits Requested Visits Authorized [id number] Authorized 10/27/2023 10/26/2024 3 3 Reason Comments [...] Deficiency Health Maintenance Mammo- had done at [facility] Reason Onset Date Comments Med Refill 05/26/2024 Reason Comments Peripheral Neuropathy Care Teams (unrecognized sec tion and content) Shellfish Dredge Operator Relationship Specialty Start Date End Date Ashok Siu MD PCP - General Family Practice 03/21/17 Shellfish Dredge Operator Relationship Specialty Start Date End Date Ashok Siu MD PCP - General Family Medicine 03/21/17 Shellfish Dredge Operator Relationship Specialty Start Date End Date Ashok Siu MD PCP - General Family Medicine 03/21/17 Shellfish Dredge Operator Relationship Specialty Start Date End Date Ashok Siu MD PCP - General Family Medicine 03/21/17 Shellfish Dredge Operator Relationship Specialty Start Date End Date Ashok Siu MD PCP - General Family Medicine 03/21/17 Shellfish Dredge Operator Relationship Specialty Start Date End Date Ashok Siu MD PCP - General Family Medicine 03/21/17 Shellfish Dredge Operator Relationship Specialty Start Date End Date Ashok Siu MD PCP - General Family Medicine 03/21/17 Shellfish Dredge Operator Relationship Specialty Start Date End Date Ashok Siu MD PCP - General Family Medicine 03/21/17 Shellfish Dredge Operator Relationship Specialty Start Date End Date Ashok Siu MD PCP - General Family Medicine 03/21/17 Team Status: Active Member Role Status Dates Dr. Ashok Siu MD Family Provider Active Dr. Geeta Hickman MD Primary Care Provider Active Team Status: Inactive Member Role Status Dates Dr. Geeta Hickman MD Primary Care Provider, Referri ng Provider Active Leila ERIC PA Attending Provider Active Team Status: Inactive [...] Dr. Danial Marshall MD Attending Provider Active Shellfish Dredge Operator Relationship Specialty Start Date End Date Ashok Siu MD PCP - General Family Medicine 03/21/17 Team Status: Inactive Member Role Status Dates Dr. Geeta Hickman MD Primary Care Provider, Referri ng Provider Active Jacqueline Martinez SURVEY DIRECTOR, SURVEY DIRECTOR-C Attending Provider Active Team Status: Inactive Member Role Status Dates Dr. Geeta Hickman MD Primary Care Provider, Referri ng Provider Active Austin ERIC, PA Attending Provider Active Team Status: Inactive Member Role Status Dates Dr. Geeta Hickman MD Primary Care Provider Active Jacqueline Martinez SURVEY DIRECTOR, SURVEY DIRECTOR-C Attending Provider Active Team Status: Active Member Role Status Dates Dr. Geeta Hickman MD Primary Care Provider Active Dr. Ashley Fair MD Attending Provider Active Team Status: Inactive Member Role Status Dates Dr. Geeta Hickman MD Primary Care Provider Active Dr. Ashley Fair MD Attending Provider Active Shellfish Dredge Operator Relationship Specialty Start Date End Date Geeta Hickman MD NO FORWARDING ADDRESS PCP - General Internal Medicine 06/15/22 Shellfish Dredge Operator Relationship Specialty Start Date End Date Geeta Hickman MD NO FORWARDING ADDRESS PCP - General Internal Medicine 06/15/22 Team Status: Inactive Member Role Status Dates Dr. Geeta Hickman MD Primary Care Provider Active Nadia Bolanos SURVEY DIRECTOR, COMPLIANCE ATTORNEY Attending Provider, Referri ng Provider Active Team Status: Inactive Member Role Status Dates Dr. Geeta Hickman MD Primary Care Provider Active Dr. Landon Doe MD Emergency Provider Active Team Status: Inactive Member Role Status Dates Dr. Geeta Hickman MD Primary Care Provider, Referri ng Provider Active Sveta Cline SURVEY DIRECTOR, SURVEY DIRECTOR-C Attending Provider Active Team Status: Inactive Member Role Status Dates Dr. Geeta Hickman MD Primary Care Provider Active Jacqueline Martinez SURVEY DIRECTOR, SURVEY DIRECTOR-C Attending Provider, Referring Provider Active Team Status: Active Member Role Status Dates Dr. Geeta Hickman MD Primary Care Provider Active Sveta Cline SURVEY DIRECTOR, SURVEY DIRECTOR-C Attending Provider, Referrin g Provider Active Team Status: Active Member Role Status Dates Dr. Geeta Hickman MD Primary Care Provider Active Sveta Cline SURVEY DIRECTOR, SURVEY DIRECTOR-C Attending Provider Active Team Status: Inactive Member Role Status Dates Dr. Geeta Hickman MD Primary Care Provider, Referri ng Provider Active Roseann Michel SURVEY DIRECTOR, SURVEY DIRECTOR-C Attending Provider Active Team Status: Inactive Member Role Status Dates Dr. Geeta Hickman MD Primary Care Provider Active Sveta Cline SURVEY DIRECTOR, SURVEY DIRECTOR-C Attending Provider, Referrin g Provider Active Team Status: Inactive Member Role Status Dates Dr. Geeta Hickman MD Primary Care Provider Active Sveta Cline SURVEY DIRECTOR, SURVEY DIRECTOR-C Attending Provider Active Team Status: Inactive Member [...] DO Attending Provider, Refe rring Provider Active Shellfish Dredge Operator Relationship Specialty Start Date End Date Ashok Siu MD PCP - General Family Medicine 03/21/17 06/14/22 Geeta Hickman MD NO FORWARDING ADDRESS PCP - General Internal Medicine 06/15/22 Shellfish Dredge Operator Relationship Specialty Start Date End Date Naga Hurt MD [address] [place] [address] PCP - General Family Medicine 10/29/22 Shellfish Dredge Operator Relationship Specialty Start Date End Date Naga Hurt MD [address] [place] [address] PCP - General Family Medicine 10/29/22 Shellfish Dredge Operator Relationship Specialty Start Date End Date Ashley Gomez APRN - REGISTERED VETERINARY TECHNICIAN [address] [place] [address] PCP - General Nurse Practitioner Family 11/11/22 Shellfish Dredge Operator Relationship Specialty Start Date End Date Ashley Gomez APRN - REGISTERED VETERINARY TECHNICIAN [address] [place] [address] PCP - General Nurse Practitioner Family 11/11/22 Shellfish Dredge Operator Relationship Specialty Start Date End Date Ashley Gomez APRN - REGISTERED VETERINARY TECHNICIAN [address] [place] [address] PCP - General Nurse Practitioner Family 11/11/22 Shellfish Dredge Operator Relationship Specialty Start Date End Date Naga Hurt MD [address] [place] [address] PCP - General Family Medicine 12/15/22 Shellfish Dredge Operator Relationship Specialty Start Date End Date Naga Hurt MD [address] [place] [address] PCP - General Family Medicine 12/15/22 Shellfish Dredge Operator Relationship Specialty Start Date End Date Naga Hurt MD [address] [place] [address] PCP - General Family Medicine 12/15/22 Shellfish Dredge Operator Relationship Specialty Start Date End Date Geeta Hickman MD NO FORWARDING ADDRESS PCP - General Internal Medicine 06/15/22 Shellfish Dredge Operator Relationship Specialty Start Date End Date Ashley Gomez, TERE - REGISTERED VETERINARY TECHNICIAN [address] [place] [address] PCP - General Nurse Practitioner Family 11/11/2211/27 Naga Hurt MD [address] [place] [address] PCP - General Family Medicine 12/15/22 Shellfish Dredge Operator Relationship Specialty Start Date End Date Naga Hurt MD [address] [place] [id number] PCP - General Family Medicine 12/15/22 Team Status: Active Member Role Status Dates Dr. Ashok Siu MD Family Provider Active Ashley Gomez SURVEY DIRECTOR, SURVEY DIRECTOR-C Primary Care Provider Active Team Status: Inactive Member Role Status Dates Ashley Gomez SURVEY DIRECTOR, SURVEY DIRECTOR-C Primary Care Provider Active Dr. Wagner Reynolds MD Emergency Provider Active Team Status: Inactive Member Role Status Dates Ashley Gomez SURVEY DIRECTOR, SURVEY DIRECTOR-C Primary Care Provider Active Dr. Edgar Coffey MD Attending Provider Activ e Shellfish Dredge Operator Relationship Specialty Start Date End Date Naga Hurt MD [address] [place] [address] PCP - General Family Medicine 12/15/22 Shellfish Dredge Operator Relationship Specialty Start Date End Date Naga Hurt MD [address] [place] [address] PCP - [facility] Medicine 12/15/22 Shellfish Dredge Operator Relationship Specialty Start Date End Date Naga Hurt MD [address] [place] [id number] PCP - General [facility] Medicine 12/15/22 Team Status: Inactive Member Role Status Dates Dr. Geeta Hickman MD Referring Provider Active Dr. Matty Tam DO Attending Provider Active Ashley Gomez SURVEY DIRECTOR, SURVEY DIRECTOR-C Primary Care Provider Active Team Status: Inactive Member Role Status Dates Ashley Gomez SURVEY DIRECTOR, SURVEY DIRECTOR-C Primary Care Provid er, Attending Provider, Referring Provider Active Team Status: Inactive Member Role Status Dates Ashley Gomez NP, SURVEY DIRECTOR-C Primary Care Provider Active Dr. Wagner Reynolds MD Attending Provider, Emergency Pro vider Active Team Status: Active Member Role Status Alec Gomez SURVEY DIRECTOR, SURVEY DIRECTOR-C Primary Care Provider Active Dr. Matty Tam DO Attending Provider, Referring Provider Active Team Status: Inactive Member Role Status Alec Gomez SURVEY DIRECTOR, SURVEY DIRECTOR-C Primary Care Provider Active Dr. Matty Tam DO Attending Provider, Referring Provider Active Team Status: Inactive Member Role Status Alec Gomez SURVEY DIRECTOR, SURVEY DIRECTOR-C Primary Care Provider Active Dr. Ashley Fair MD Attending Provider, Referring Gonzalo garcia Active Dr. Santana Crespo MD Other Provider Active Shellfish Dredge Operator Relationship Specialty Start Date End Date Naga Hurt MD [address] [place] [place] [address] PCP - General Family Medicine 12/15/22 Team Status: Active Member Role Status Dates Ashley Gomez SURVEY DIRECTOR, SURVEY DIRECTOR-C Primary Care Provider Active Dr. Cirilo Garcias , Emergency Provider Active Dr. Ashley Fair MD Admit Provider, Attending Provi imkel Active Team Status: Inactive Member Role Status Dates Ashley Gomez SURVEY DIRECTOR, SURVEY DIRECTOR-C Primary Care Provider Active Dr. Cirilo Garcias , DO Emergency Provider Active Dr. Ashley Fair MD Admit Provider, Attending Provi mikel Active Shellfish Dredge Operator Relationship Specialty Start Date End Date Ashley Gomez CNP [address] [place] [address] PCP - General Family Medicine 07/08/23 Shellfish Dredge Operator Relationship Specialty Start Date End Date Ashley Gomez CNP [address] [place] [address] PCP - General Family Medicine 07/08/23 Shellfish Dredge Operator Relationship Specialty Start Date End Date Ashley Gomez CNP [address] [place] [address] PCP - General Family Medicine 07/08/23 Shellfish Dredge Operator Relationship Specialty Start Date End Date Ashley Gomez CNP [address] [place] [address] PCP - General Family Medicine 07/08/23 Shellfish Dredge Operator Relationship Specialty Start Date End Date Ashley Gomez CNP [address] [place], [place] [id number] PCP - General Family Medicine 07/08/23 Shellfish Dredge Operator Relationship Specialty Start Date [place] [address] PCP - General Family Medicine 12/15/22 Team Status: Inactive Member Role Status Dates Dr. Geeta Hickman MD Referring Provider Active Ashley Gomez SURVEY DIRECTOR, SURVEY DIRECTOR-C Primary Care Provider Active Denise Duff NP-Krishan Attending Provider Active Team Status: Active Member Role Status Dates Ashley Gomez SURVEY DIRECTOR, SURVEY DIRECTOR-C Primary Care Provider Active Dr. Mickey Gutiérrez MD Attending Provider, Referring Provider Active Team Status: Inactive Member Role Status Dates Ashley Gomez SURVEY DIRECTOR, SURVEY DIRECTOR-C Primary Care Provider Active Denise Duff NP-C Attending Provider, Referring Pr ovider Active Shellfish Dredge Operator Relationship Specialty Start Date [place] [address] PCP - General Family Medicine 12/15/22 Shellfish Dredge Operator Relationship Specialty Start Date End Date Naga Hurt MD [address] [place] [address] PCP - General Family Medicine 12/15/22 Shellfish Dredge Operator Relationship Specialty Start Date End Date Naga Hurt MD [address] [place] [address] PCP - General Family Medicine 12/15/22 Cornell Holden MD [address] [place] [address] Surgeon Urology 08/27/23 Shellfish Dredge Operator Relationship Specialty Start Date End Date Naga Hurt MD [address] [place] [address] PCP - General Family Medicine 12/15/22 Cornell Holden MD [address] [place] [address] Surgeon Urology 08/27/23 Shellfish Dredge Operator Relationship Specialty Start Date End Date Naga Hurt MD [address] [place] [address] PCP - General Family Medicine 12/15/22 Cornell Holden MD [address] [place] [address] Surgeon Urology 08/27/23 Shellfish Dredge Operator Relationship Specialty Start Date End Date Naga Hurt MD [address] [place] [address] PCP - General Family Medicine 12/15/22 Cornell Holden MD [address] [place] [address] Surgeon Urology 08/27/23 Shellfish Dredge Operator Relationship Specialty Start Date End Date Naga Hurt MD [address] [place] [address] PCP - General Family Medicine 12/15/22 Cornell Holden MD [address] [place] [address] Surgeon Urology 08/27/23 Shellfish Dredge Operator Relationship Specialty Start Date End Date Naga Hurt MD [address] [place] [address] PCP - General Family Medicine 12/15/22 Cornell Holden MD [address] [place] [address] Surgeon Urology 08/27/23 Shellfish Dredge Operator Relationship Specialty Start Date End Date Naga Hurt MD [address] [place] [address] PCP - General Family Medicine 12/15/22 Cornell Holden MD [address] [place] [address] Surgeon Urology 08/27/23 Shellfish Dredge Operator Relationship Specialty Start Date End Date Naga Hurt MD [address] [place] [address] PCP - General Family Medicine 12/15/22 Cornell Holden MD [address] [place] [address] Surgeon Urology 08/27/23 Shellfish Dredge Operator Relationship Specialty Start Date End Date Naga Hurt MD [address] [place] [address] PCP - General Family Medicine 12/15/22 Cornell Holden MD [address] [place] [address] Surgeon Urology 08/27/23 Shellfish Dredge Operator Relationship Specialty Start Date End Date Geeta Hickman MD PCP - General Internal Medicine 06/15/22 07/07/23 Shellfish Dredge Operator Relationship Specialty Start Date End Date Ashok Siu MD PCP - General Family Medicine 03/21/17 06/14/22 Shellfish Dredge Operator Relationship Specialty Start Date End Date Ashley Gomez CNP [address] [place] [phone] PCP - General Family Medicine 07/08/23 Shellfish Dredge Operator Relationship Specialty Start Date End Date Naga Hurt MD [address] [place] [address] PCP - General Family Medicine 12/15/22 Cornell Holden MD [address] [place] [address] Surgeon Urology 08/27/23 Shellfish Dredge Operator Relationship Specialty Start Date End Date Naga Hurt MD [address] [place] [address] PCP - General Family Medicine 12/15/22 Cornell Holden MD [address] [place] [address] Surgeon Urology 08/27/23 Shellfish Dredge Operator Relationship Specialty Start Date End Date Naga Hurt MD [address] [place] [address] PCP - General Family Medicine 12/15/22 Cornell Holden MD [address] [address] Surgeon Urology 08/27/23 Shellfish Dredge Operator Relationship Specialty Start Date End Date Naga Hurt MD [address] [facility] [address] PCP - General Family Medicine 12/15/22 Cornell Holden MD [address] [facility] [address] [place] [address] Surgeon Urology 08/27/23 Team Status: Active Member Role Status Dates Ashley Gomez SURVEY DIRECTOR, SURVEY DIRECTOR-C Primary Care Provider Active Team Status: Inactive Member Role Status Dates Ashley Gomez SURVEY DIRECTOR, SURVEY DIRECTOR-C Primary Care Provider Active Start: July 07, 2024 End: July 07, 2024 Ashley Gomez NP, SURVEY DIRECTOR-C Referring Provider Active S tart: July 07, 2024 End: July 07, 2024 Dr. Matty Tam , DO Attending Provider Active Start: July 07, 2024 End: July 07, 2024 Team Status: Inactive Member Role Status Dates Ashley Gomez NP, SURVEY DIRECTOR-C Primary Care Provider Active Start: August 30, 2024 End: August 30, 2024 Ashley Gomez NP, SURVEY DIRECTOR-C Referring Provider Active S tart: August 30, 2024 End: August 30, 2024 TEJINDER Weber Attending Provider Active Start: August 30, 2024 End: August 30, 2024 Team Status: Inactive Member Role Status Dates Ashley Gomez NP, SURVEY DIRECTOR-C Primary Care Provider Active Start: August 30, 2024 End: August 30, 2024 TEJINDER Weber Attending Provider Active Start: August 30, 2024 End: August 30, 2024 TEJINDER Weber Referring Provider Active Start: August 30, 2024 End: August 30, 2024 Team Status: Active Member Role Status Dates Ashley Gomez NP, SURVEY DIRECTOR-C Primary Care Provider Active Start: September 01, 2024 Dr. Chrystal Conteh , Attending Provider Activ e Start: September 01, 2024 Dr. Chrystal Conteh , DO Referring Provider Activ e Start: September 01, 2024 Team Status: Inactive Member Role Status Dates Ashley Gomez NP, SURVEY DIRECTOR-C Primary Care Provider Active Start: September 01, 2024 End: September 01, 2024 Dr. Chrystal Conteh DO Attending Provider Activ e Start: September 01, 2024 End: September 01, 2024 Dr. Chrystal Conteh DO Referring Provider Activ e Start: September 01, 2024 End: September 01, 2024 Team Status: Inactive Member Role Status Dates Ashley Gomez NP, SURVEY DIRECTOR-C Primary Care Provider Active Start: May 03, 2024 End: May 03, 2024 Ashley Gomez SURVEY DIRECTOR, SURVEY DIRECTOR-C Attending Provider Active S tart: May 03, 2024 End: May 03, 2024 Ashley Gomez SURVEY DIRECTOR, SURVEY DIRECTOR-C Referring Provider Active S tart: May 03, 2024 End: May 03, 2024 Shellfish Dredge Operator Relationship Specialty Start Date End Date Naga Hurt MD [address] [facility] [place] [address] PCP - General Family Medicine 12/15/22 Cornell Holden MD [address] [facility] [address] [place] [address] Surgeon Urology 08/27/23 Team Status: Active Member Role/Relationship Status Dates Ashley Gomez NP, SURVEY DIRECTOR-C Primary Care Provider Active Team Status: Inactive Member Role/Relationship Status Dates Ashley Gomez SURVEY DIRECTOR, SURVEY DIRECTOR-C Primary Care Provider Active Start: July 07, 2024 End: July 07, 2024 Ashley Gomez SURVEY DIRECTOR, SURVEY DIRECTOR-C Referring Provider Active S tart: July 07, 2024 End: July 07, 2024 Dr. Matty Tam , Attending Provider Active Start: July 07, 2024 End: July 07, 2024 Team Status: Inactive Member Role/Relationship Status Dates Ashley Gomez NP, SURVEY DIRECTOR-C Primary Care Provider Active Start: August 30, 2024 End: August 30, 2024 Ashley Gomez NP, SURVEY DIRECTOR-C Referring Provider Active S tart: August 30, 2024 End: August 30, 2024 Denise Duff NP-C Attending Provider Active Start: August 30, 2024 End: August 30, 2024 Team Status: Inactive Member Role/Relationship Status Dates Ashley Gomez NP, SURVEY DIRECTOR-C Primary Care Provider Active Start: August 30, 2024 End: August 30, 2024 Denise Duff NP-C Attending Provider Active Start: August 30, 2024 End: August 30, 2024 Denise Duff NP-C Referring Provider Active Start: August 30, 2024 End: August 30, 2024 Team Status: Inactive Member Role/Relationship Status Dates Ashley Gomez NP, SURVEY DIRECTOR-C Primary Care Provider Active Start: September 01, 2024 End: September 01, 2024 Dr. Chrystal Conteh DO Attending Provider Activ e Start: September 01, 2024 End: September 01, 2024 Dr. Chrystal Conteh DO Referring Provider Activ e Start: September 01, 2024 End: September 01, 2024 Team Status: Inactive Member Role/Relationship Status Dates Ashley Gomez NP, SURVEY DIRECTOR-C Primary Care Provider Active Start: October 09, 2024 End: October 09, 2024 Roseann Gee Attending Provider Active Sta rt: October 09, 2024 End: October 09, 2024 Team Status: Inactive Member Role/Relationship Status Dates Ashley Gomez NP, SURVEY DIRECTOR-C Primary Care Provider Active Start: September 26, 2024 Dr. Ashley Fair MD Attending Provider Active Start: September 26, 2024 Team Status: Inactive Member Role/Relationship Status Dates Ashley Gomez SURVEY DIRECTOR, SURVEY DIRECTOR-C Primary Care Provider Active Start: October 09, 2024 End: October 09, 2024 Roseann Gee Attending Provider Active Sta rt: October 09, 2024 End: October 09, 2024 Team Status: Inactive Member Role/Relationship Status Dates Ashley Gomez SURVEY DIRECTOR, SURVEY DIRECTOR-C Primary Care Provider Active Start: October 18, 2024 End: October 18, 2024 Ashley Gomez SURVEY DIRECTOR, SURVEY DIRECTOR-C Referring Provider Active S tart: October 18, 2024 End: October 18, 2024 Dr. Matty Tam DO Attending Provider Active Start: October 18, 2024 End: October 18, 2024 Scheduled Active and Recently Administ ered Medications [...] Marcelino Valencia RN)[id number] (Stopped - Provider: Marcelino Valencia RN) INFORMATION SOURCE (unrecogn ized section and content) DATE CREATED AUTHOR 01/11/2024 [facility] DATE CREATED AUTHOR AUTHOR'S ORGANIZ ATION 10/16/2024 [facility] DATE CREATED AUTHOR AUTHOR'S ORGANIZ ATION 10/18/2024 [facility] FOR RECORDS PERTAINING TO PATIENTS WHO [...] BE BASED ON THE PRIMARY CLINICAL RECORDS. [employer] provides no warranty or guarantee of the accuracy or completeness of information in this document.
== END | disposition home or self-care (01) ==
LOC: US 11:52
PROVIDERS: PCP Registered Nurse; Referring Provider Obstetrics & Gynecology; Visit Provider Obstetrics & Gynecology
DX: R10.2 Pelvic and perineal pain (principal); N83.201 Unspecified ovarian cyst, right side
CPT/HCPCS: 76830; 76856

== ENCOUNTER → 2024-12-16 | Outpatient (CLI) | payer MEDICAID, SELFPAY ==
--- OUTSIDE RECORDS SUMMARY | 2024-12-16 09:57 | XMS RPT_ITS | CCD ---
Author Organization [facility] Care Team Providers Care Breaker Engineer Name Role Phone Ashok Siu MD Primary [...] 10 Dr. Danial Marshall Attending Provider Michelle MACHINE TOOL DESIGNER, MACHINE TOOL DESIGNER-C Jacqueline Attending Provider [phone] JEANETH Gabriel Attending Provider [phone] Geeta Hickman MD Primary Care Provider Unava ilbobby Cline MACHINE TOOL DESIGNER, MACHINE TOOL DESIGNER-C Sveta Attending Provider [phone] Marilu MACHINE TOOL DESIGNER, MACHINE TOOL DESIGNER-C Roseann Arriaga Attending Provider [phone] Dr. Geeta Hickman Primary Care Provider Dr. Geeta Hickman Referring Provider [phone] Dr. Geeta Hickman Attending Provider [phone] Dr. Chrystal Conteh Attending Provider [phone] Dr. Geeta Hickman Primary Care Provider Dr. Geeta Hickman Referring Provider [phone] Michelle MACHINE TOOL DESIGNER, MACHINE TOOL DESIGNER-C Jacqueline Attending Provider [phone] Sherron ELLISON, Ashok Mitchell Primary Care Provider Blu ELLISON, [place] Primary Care Provider Jason CARRANZA - SONOGRAPHER, Ashley Martinez Primary Care Provider Blu ELLISON, [place] Primary Care Provider Jason GOAL UMPIRE - SONOGRAPHER, [facility] Primary Care Provider Dr. Geeta Hickman Referring Provider Dr. Tanna Nava Attending Provider [phone] Jason MACHINE TOOL DESIGNER, MACHINE TOOL DESIGNER-C [place] Primary Care Provider Dr. Geeta Hickman Referring Provider Dr. Tanna Nava Attending Provider [phone] Jason MACHINE TOOL DESIGNER, MACHINE TOOL DESIGNER-C [place] Primary Care Provider [phone] Jason LINDSEY, [place] Primary Care Provider Dr. Mickey Gutiérrez Attending Provider [phone] Dr. Mickey Gutiérrez Referring Provider [phone] TEJINDER Duff Attending Provider [phone] Adina ELLISON, [place] Unavailable Vick ELLISON, Geeta Rogers Primary Care Provider Sherron ELLISON, Ashok Mitchell Primary Care Provider MARIA ELENA CARVAJAL Attending Unavailable ASHLEY GOMEZ LOIDA Primary Care Unavailable FLETCHERFALLON RUELAS Referring Unavailab kaylyn GOMEZ, ASHLEY MARISCAL Primary Care Unavailable FALLON RIVAS Attending Unavailab ASHLEY Amador Primary Care Unavailable YOJANA LARES Attending Unavaila ble JASON, ASHLEY LOIDA Primary Care Unavailable MARIA ELENA CARVAJAL Referring Unavailable JASON, ASHLEY LOIDA Primary Care Unavailable Jason ROSALIA, Ashley Loid[place] Primary Care Provider Jason MACHINE TOOL DESIGNER-C, Ashley Primary Care Provider Jason MACHINE TOOL DESIGNER-C, Ashley Referring Provider Dr. Tanna Nava DO Attending Provider Omega BASURTO-CDenise Attending Provider [phone] Omega BASURTO-CDenise Referring Provider [phone] Dr. Chrystal Conteh DO Attending Provider Dr. Chrystal Conteh DO Referring Provider Jason MACHINE TOOL DESIGNER-C, [place] Primary Care Provider [phone] Jason MACHINE TOOL DESIGNER-C, Ashley Attending Provider Jason MACHINE TOOL DESIGNER-C, Ashley Referring Provider Roseann Gee Attending Provider Manjula ELLISON, Dr. Simeon Attending Provider Manjula ELLISON, Dr. Simeon Attending Provider [phone] Jason MACHINE TOOL DESIGNER, [place] Primary Care Unavailable Denise Duff Referring Unavailable Denise Duff Attending Unavailable Jason MACHINE TOOL DESIGNER, [place] Primary Care Unavailable Chrystal Conteh Referring Unavailabl e Chrystal Conteh Attending Unavailabl e Jason MACHINE TOOL DESIGNER, [place] Primary Care Unavailable Hiram Jay Attending Unavailable Jason MACHINE TOOL DESIGNER, [place] Primary Care Unavailable Jason MACHINE TOOL DESIGNER, Ashley Referring Unavailable Julio C Goyal Attending Unavailable Jason MACHINE TOOL DESIGNER, [place] Primary Care Unavailable Jason MACHINE TOOL DESIGNER, Ashley Referring Unavailable Friend, Tanna Attending Unavailable Jason MACHINE TOOL DESIGNER, [place] Primary Care Unavailable Jason MACHINE TOOL DESIGNER, Ashley Referring Unavailable Friend, Tanna Attending Unavailable Jason MACHINE TOOL DESIGNER, [place] Primary Care Unavailable Jason MACHINE TOOL DESIGNER, Ashley Referring Unavailable Friend, Tanna Attending Unavailable Jason MACHINE TOOL DESIGNER, [place] Primary Care Unavailable Jason MACHINE TOOL DESIGNER, Ashley Referring Unavailable Denise Duff Attending Unavailable Jason MACHINE TOOL DESIGNER, [place] Primary Care Unavailable Friend, Tanna Attending Unavailable Jason MACHINE TOOL DESIGNER, Ashley Referring Unavailable Jason MACHINE TOOL DESIGNER, [place] Primary Care Unavailable Jason MACHINE TOOL DESIGNER, Ashley Referring Unavailable Dina Ramos Attending Unavailable Jason MACHINE TOOL DESIGNER, Ashley Attending Unavailable Jason MACHINE TOOL DESIGNER, [place] Primary Care Unavailable Jason MACHINE TOOL DESIGNER, Ashley Referring Unavailable Jason MACHINE TOOL DESIGNER, [place] Primary Care Unavailable Chrystal Conteh Referring Unavailabl e Chrystal Conteh Attending Unavailabl e Jason MACHINE TOOL DESIGNER, [place] Primary Care Unavailable Chapincito De La Rosa Attending Unavailable Jason MACHINE TOOL DESIGNER, [place] Primary Care Unavailable William Hernadezer Referring Unavailable Deuce Hernadez Attending Unavailable Jason MACHINE TOOL DESIGNER, [place] Primary Care Unavailable Roseann Gee Attending Unavailable Jason MACHINE TOOL DESIGNER, [place] Primary Care Unavailable Chrystal Conteh Referring UnavailChrystal Bonner Attending Unavailyunier e Jason MACHINE TOOL DESIGNER, Ashley Referring Unavailable Jason MACHINE TOOL DESIGNER, Ashley Attending Unavailable Jason MACHINE TOOL DESIGNER, [place] Primary Care Unavailable ASHLEY GOMEZ Attending Unavailable [facility] Unavailable ASHLEY GOMEZ Attending Unavailable [facility] Unavailable ASHLEY GOMEZ Attending Unavailable [facility] Unavailable ASHLEY GOMEZ Attending Unavailable [facility] Unavailable ASHLEY GOMEZ Attending Unavailable [facility] Unavailable ASHLEY GOMEZ Attending Unavailable [facility] Unavailable Allergies Allergy Classification Reported Allergen(s) Allergy Type Date of Onset Reaction(s) Facility Quinolones (antibiotic) (1 source) Ofloxacin Drug Allergy 10-30-19 23 [facility] (20 sources) Ofloxacin; Translations: [OFLOXACIN] Drug Allergy 01-28-20 19 [facility] Work Phone: (12 sources) Environmental Allergies: Uncoded; Translations: [Environmental Allergies: Uncoded] Allergy to substance 06-03-19 24 Itching [facility] (20 sources) Seasonal allergy Environmental allergy 06-03-19 24 Itching [facility] (7 sources) Seasonal allergy; Translations: [SEASONAL ALLERGIES] Propensity to adverse reactions 07-08-19 24 Cough, Shortness of Breath [facility] (1 source) Ofloxacin Drug Allergy 08-31-19 25 [facility] Repository Medications Current Medications Medication Drug Class(es) Dates Sig (Normalized) Sig (Original) [id number] 200 actuat albuterol 0.09 mg/actuat metered dose [...] tablet (20 sources) Aminoketone Start: 11-24-2018 End: 07-21-2024 take 1 tablet by mouth once daily buPROPion XL (Wellbutrin XL) 300 MG 24 hr tablet Indications: Depressive disorder , Anxiety Take 1 tablet (300 mg) by mouth daily. Do not crush, chew, or split. 90 tablet 1 07/21/2024 Active End: 10-16-2020 BUPROPION HCL (WELLBUTRIN XL ORAL) Take by mouth. 10/16/2020 Discontinued Comment on above: Take 1 tablet by monet once daily. cephalexin 500 mg oral capsule [...] July 14, 2023 9:47am post-operative Start: 04-07-2023 End: 11-05-2023 take 1 capsule by mouth once daily cephalexin (Keflex) 250 MG capsule TAKE 1 CAPSULE BY MOUTH ONCE DAILY AFTER INTERCOURSE 04/07/2023 Active Start: 04-07-2023 take 1 capsule by mo [facility] three times daily cephalexin (Keflex) 500 MG capsule Take 500 mg by mouth 3 times daily. 04/07/2023 Active Start: 06-24-2022 End: 07-10-2022 Cephalexin 250 mg [...] twice daily. clindamycin 0.01 mg/mg topical gel (18 sources) Lincosamide Antibacterial Start: 03-01-2024 clindamycin 1 [...] 12:00am cyclobenzaprine hydrochloride 5 mg oral tablet (20 sources) Muscle Relaxant Start: 12-13-2024 take 1 tablet by mouth three times daily as needed for muscle spasms cyclobenzaprine (Flexeril) 5 MG tablet Take 1 tablet (5 mg) by mouth 3 times daily as needed for muscle spasms. 30 tablet 12/13/2024 Active Start: 02-17-2024 End: 04-21-2024 take 1 tablet by mouth three times daily as needed for muscle spasms Cyclobenzaprine 5 mg tablet Active 5 mg PO THREE TIMES A DAY as needed for muscle spasm 30 0 April 21, 2024 1:00am dicyclomine hydrochloride 10 mg oral capsule (20 sources) Anticholinergic Start: 12-31-2020 End: 05-26-2024 take 1 capsule by mouth three times daily dicyclomine (Bentyl) 10 MG capsule Indications: Irritable bowel syndrome with diarrhea Take 1 capsule (10 mg) by mouth 3 times daily. 90 capsule 5 05/26/2024 Active Start: 04-04-2018 End: 01-02-2019 Dicyclomine 20 mg tablet Dis continued 20 mg PO .4 times per day April 04, 2018 1:00am January 02, 2019 9:06am Comment on above: Take 1 capsule by mo [facility] three times daily as needed (abdominal pain). doxycycline hyclate 100 mg oral tablet (9 sources) Tetracycline-class Drug Start: 4 take 1 tablet by mouth every twelve [...] on above: Take 1 tablet by monet twice daily for 7 days. Take 1 tablet by monet every 12 hours. estradiol 0.1 mg/ml vaginal cream (11 sources) Estrogen Start: End: Estradiol 0.01 % [...] MG capsule Indications: Depressive disorder , Anxiety TAKE 1 CAPSULE BY MOUTH DAILY aliong with 40mg dose for a total OF 60mg 90 capsule 1 10/04/2024 Active Start: 10-11-2023 End: 02-09-2024 take 1 capsule by mouth once daily FLUoxetine (PROzac) 20 MG capsule Indications: Depressive disorder , Anxiety Take 1 capsule (20 mg) by mouth daily. Take with 40 mg dose for a total of 60 mg 90 capsule 1 10/11/2023 02/09/2024 Discontinued (Dose adjustment) Start: 09-15-2023 take 1 capsule by mo [facility] once daily FLUoxetine (PROzac) [...] MG capsule Indications: Depressive disorder , Anxiety TAKE 1 CAPSULE BY MOUTH DAILY along with 20mg dose to total 60my 90 capsule 1 10/04/2024 Active Start: 10-29-2021 End: 12-10-2021 take 1 tablet by mouth once daily Fluoxetine 20 mg tablet Discontinued 20 mg PO DAILY 30 1 October 29, 2021 3:40pm December 10, 2021 [...] dose nasal spray (20 sources) Corticosteroid Start: End: take 2 spray(s) nasal route once daily fluticasone (Flonase) 50 MCG/ACT nasal spray Administer 2 sprays into each nostril Nightly. Shake gently. Before first use, prime pump. After use, clean tip and replace cap. 16 mL 2 12/14/2024 Active Start: 12-24-2021 End: 06-03-2023 take 50 [...] (FLONASE) 50 mcg/actuation nasal spray Use 1 [place] in each nostril once daily. Active Comment on above: Use 1 [place] in each nostril once daily. gabapentin 100 mg oral capsule (9 sources) Anti-epileptic Agent Start: 08-18-2024 take 1 capsule by mouth twice daily gabapentin (Neurontin) 100 MG capsule Indications: Neuropathy of right foot Take 1 capsule (100 mg) by mouth 2 times daily. 60 capsule 2 08/18/2024 Active Start: 07-21-2024 take 1 capsule by mo [facility] once daily gabapentin (Neurontin) 100 MG capsule Indications: Neuropathy of right foot Take 1 capsule (100 mg) by mouth Nightly. 30 capsule 07/21/2024 Active lidocaine 0.05 mg/mg medicated patch (7 sources) Antiarrhythmic, Amide Local Anesthetic Start: 02-17-2024 lidocaine (Lidoderm) 5 % patch Apply 1 patch topically as needed. 02/17/2024 Active lisinopril 5 mg oral tablet (20 sources) Angiotensin Converting Enzyme Inhibitor Start: 11-15-2024 take 1 tablet by mouth once daily lisinopril 5 MG tablet Indications: Primary hypertension Take 1 tablet (5 mg) by mouth daily. 90 tablet 1 11/15/2024 Active Start: 12-24-2021 End: 11-22-2022 take 1 tablet by mouth once daily Lisinopril 5 mg tablet Discontinued 5 mg PO DAILY 30 2 May 01, 2022 9:50am August 13, 2022 12:15pm Comment on above: Take by mouth. meloxicam 15 mg oral tablet (20 sources) Nonsteroidal Anti-inflammatory Drug Start: take 1 tablet by mouth once daily meloxicam (Mobic) 15 MG tablet Indications: Inflammatory polyarthropathy (HCC) Take 1 tablet (15 mg) by mouth daily. 90 tablet 1 11/15/2024 Active Start: 03-30-2023 End: 02-28-2024 take 1 tablet by mouth once daily Meloxicam 15 mg tablet Active 15 mg PO DAILY June 03, 2023 1:00am Pain Do not take in conjunction with other NSAIDs. Tylenol is okay. Start: 12-18-2022 take 1 tablet by monet once daily meloxicam (Mobic) 15 MG tablet [...] to two largest meals of the day Bqhutafk-Icp-Pgoj-Fa-V it K-Lut (Centrum Silver Women) 8 mg iron-400 mcg-50 mcg tablet (3 sources) Start: 11-07-19 take 1 tablet by mouth once daily Qeftxhil-Sxe-Srxg-Fa- Vit K-Lut (Centrum Silver Women) 8 mg iron-400 mcg-50 mcg tablet Active 1 TABLET PO DAILY November 05, 2022 11:00pm gkbmmrmqldyh-qsfb-ikfq rals-folic acid (Centrum) chewable tablet (20 sources) multivitamin-iro n-min erals-folic acid (Centrum) chewable tablet Chew 1 tablet daily. Active multivitamin-iro g-twhhiojl-kakcg acid (Centrum) chewable tablet Chew 1 tablet [...] Comment on above: Take 1 capsule by [facility] twice daily for 5 days. ondansetron 4 [...] Q8H as needed for nausea and vomiting 25 08September 01, 2022 12:00am April 05, 2024 10:59am [...] every 8 hours as needed for nausea/vomiting. rosuvastatin calcium 5 mg oral tablet (1 source) HMG-CoA Reductase Inhibitor Start: End: take 1 tablet by mouth once daily rosuvastatin (Crestor) 5 MG tablet Indications: Mixed hyperlipidemia Take 1 tablet (5 mg) by mouth daily. 30 tablet 12/13/2024 01/12/2025 Active sucralfate 100 mg/ml oral suspension (14 sources) Aluminum Complex Start: take 1 g by mouth twice daily sucralfate (Carafate) 1 GM/10ML suspension Take 1 g by mouth 2 times daily. 05/02/2024 Active Start: 04-05-2024 take 1 mL by mouth twice daily Sucralfate (Carafate) 100 mg/mL suspension Active 10 mL PO TWICE A DAY 600 30 April 05, 2024 1:00am trolamine salicylate 100 [...] on above: TAKE 1 TABLET BY MONET EVERY 8 HOURS NEEDED FOR PAIN FOR [...] 1000 MG PO TWICE A DAY 40 May 08, 2020 1:00am May 18, 2020 1:03am azelastine hydrochloride 0.137 mg/actuat / fluticasone propionate 0.05 mg/actuat metered dose nasal spray (18 sources) Corticosteroid, Histamine-1 Receptor Antagonist Start: 07-10-2022 [...] capsule (20 sources) Vitamin D Start: 04-04-19 19 End: 05-28-19 take 1 capsule by mouth once daily Cholecalciferol (Vitamin D3) 2,000 unit capsule Discontinued 2000 U PO DAILY April 04, 2018 1:00am May 28, 2019 10:38am take 1 tablet by mouth once vignesh y cholecalciferol (Vitamin D-3) 50 MCG (2000 UT) tablet Take 2,000 Units by mouth daily. Active codeine phosphate 2 mg/ml / guaiFENesin 20 mg/ml oral solution (18 sources) Opioid Agonist Start: 06-24-2022 End: 08-20-2022 [...] Cream Base No.175 (Bulk) (Versatile Rich) cream (9 sources) Start: 07-04-2023 End: 08-30-2024 Cream Base [...] 1 TABLET PO daily April 06, 2019 11:48am October 11, 2019 11:25am Start: 04-06-2019 End: 10-11-2019 take 0.15 tablet by mouth once daily Desogestrel-Ethinyl Estradiol (Apri) 0.15-0.03 mg tablet Discontinued 1 {tbl} PO daily 84 April 06, 2019 1:00am October 11, 2019 11:25am Start: 04-06-2019 End: 10-11-2019 take 0.15 tablet by mouth once daily Desogestrel-Ethinyl Estradiol (Apri) 0.15-0.03 mg tablet Discontinued 1 {tbl} PO daily April 06, 2019 1:00am October [...] Start: 04-04-2018 End: 01-02-2019 Norgestimate-Ethinyl Estradi ol (Ncy-Lh-Juxztk) 0.18/0.215/0.25 mg-25 mcg tablet Discontinued 1 {tbl} PO DAILY 84 April 04, 2018 12:40pm January 02, 2019 9:23am Start: 04-04-2018 End: 01-02-2019 Norgestimate-Ethinyl Estradi ol (Pqb-Pp-Dsjvir) 0.18/0.215/0.25 mg-25 mcg tablet Discontinued 1 {tbl} PO DAILY April 04, 2018 12:40pm January 02, 2019 9:23am Start: 04-04-2018 End: 01-02-2019 take 1 tablet by mouth once daily Norgestimate-Ethinyl Estradiol (Xow-Uf-Uoviil) 0.18/0.215/0.25 mg-25 mcg tablet Discontinued 1 TABLET PO DAILY April 04, 2018 11:40am January 02, 2019 8:23am Start: 04-04-2018 End: 01-02-2019 take 1 tablet by mouth once daily Norgestimate-Ethinyl Estradiol (Kqw-Gz-Rdxekt) 0.18/0.215/0.25 mg-25 mcg tablet Discontinued 1 TABLET PO DAILY April 04, 2018 12:40pm January 02, 2019 9:23am Start: 03-15-2018 End: 04-04-2018 take 1 tablet by mouth once daily Norgestimate-Ethinyl Estradiol (Gdo-Et-Gxkkvo) 0.18/0.215/0.25 mg-25 mcg tablet Discontinued 1 TABLET PO DAILY March 15, 2018 10:59am April 04, 2018 12:41pm Start: 03-15-2018 End: 04-04-2018 Norgestimate-Ethinyl Estradi ol (Rso-Vb-Bdptjp) 0.18/0.215/0.25 mg-25 mcg tablet Discontinued 1 {tbl} PO DAILY March 15, 2018 1:00am April 04, 2018 12:41pm Start: 03-15-2018 End: 04-04-2018 take 1 tablet by mouth once daily Norgestimate-Ethinyl Estradiol (Nwn-Ea-Plikcc) 0.18/0.215/0.25 mg-25 mcg tablet Discontinued 1 TABLET PO DAILY March 15, 2018 12:00am April 04, 2018 11:41am Start: 03-15-2018 End: 04-04-2018 take 1 tablet by mouth once daily Norgestimate-Ethinyl Estradiol (Clg-Bi-Mnhzoj) 0.18/0.215/0.25 mg-25 mcg tablet Discontinued 1 TABLET [...] mg PO 3 TIMES DAILY WITH MEALS 30 December 14, 2014 12:00am March 15, 2018 [...] 27, 2019 12:00am December 21, 2019 12:55pm Edojsiyncmxw-Xgna-Mpffm Acid (Centrum Complete) 18-400 mg-mcg tablet (11 sources) Start: 06-03-2023 End: 08-30-2024 Dkhhzgsyziro-Mujn-Ubmak Acid (Centrum Complete) 18-400 mg-mcg tablet Discontinued 1 {tbl} PO DAILY June 03, 2023 1:00am August 30, 2024 10:04am Start: 06-03-2023 take 1 tablet by monet once daily Oliwigcrjpvz-Ebbd-Omfpo Acid (Centrum Complete) 18-400 mg-mcg tablet Active 1 TABLET PO DAILY June 03, 2023 1:00am naproxen 250 mg oral tablet (20 sources) Nonsteroidal Anti-inflammatory Drug Start: 11-28-2019 End: 12-13-2019 take 250-500 mg by mouth every eight hours as needed for pain Naproxen 250 MG tablet Discontinued 250 - 500 mg PO EVERY 8 HOURS NEEDED as needed for MILD PAIN 30 1 November 28, 2019 12:00am December 13, 2019 [...] 1:21pm Start: 06-03-2022 take 1 capsule by [facility] twice daily omeprazole (PRILOSEC) 40 mg capsule [...] Comment on above: Take 1 capsule by [facility] twice daily. oxyCODONE hydrochloride 5 mg oral tablet (6 sources) Opioid Agonist Start: 4 End: 5 take 1 tablet by mouth every six hours as needed for pain Oxycodone 5 mg tablet Discontinued 5 mg PO EVERY 6 HOURS as needed for pain 12 3 0 February 13, 2024 April 05, 2024 11:00am Contusion of multiple sites Unspecified multiple injuries, initial encounter pantoprazole 20 mg delayed release oral tablet (20 sources) Proton Pump Inhibitor Start: 4 End: 5 take 1 tablet by mouth [...] Take 1 tablet by monet th every afternoon. phenazopyridine hydrochloride 200 mg oral [...] 4:54pm phentermine hydrochloride 37.5 mg oral tablet (19 sources) Sympathomimetic Amine Anorectic Start: 05-03-2023 End: 07-04-2023 take 1 tablet by mouth once daily Phentermine 37.5 mg tablet Discontinued 37.5 mg PO DAILY June 03, 2023 1:00am July 04, 2023 10:28am Comment on above: Take 1 tablet (37.5 mg) by mouth every morning (before breakfast). BMI 36.49 polyethylene glycol 3350 29069 mg powder for oral solution (20 sources) [...] For 1 dose technetium Tc-99m sulfur colloid ([employer]-SC) radio-isotope solution 1.1 millicurie (2 sources) Start: 11-20-2022 End: 11-20-2022 technetium Tc-99m sulfur colloid (Nycomed-SC) radio-isotope solution 1.1 millicurie traMADol hydrochloride 50 mg oral tablet (17 sources) Opioid Agonist Start: 12-18-2022 End: 04-21-2023 [...] Discontinued triamcinolone acetonide 1 mg/ml topical cream (10 sources) Corticosteroid Start: 07-04-2023 End: 08-30-2024 Triamcinolone [...] hours Valacyclovir Discontinued 1000 MG PO Q8H 21 7 May 28, 2019 1:00am June 04, 2019 1:09am Problems Active Problems Problem Classification Problem Date Documented Da te Episodic/Chronic Abdominal pain (20 sources) Pain in pelvis; Translations: [Pelvic and perineal pain] Onset: Episodic Acute bronchitis (19 sources) Acute viral bronchitis; Translations: [Acute bronchitis [...] [Unspecified asthma, uncomplicated] Onset: 3 03-24-2021 Chronic Cardiac dysrhythmias (2 sources) Palpitations; Translations: [Palpitations] Onset: 5 Episodic Chronic obstructive pulmonary disease and bronchiectasis (20 sources) Bronchitis; Translations: [Bronchitis, not specified as acute or chronic] Episodic Disorders of lipid metabolism (9 sources) Raised low density lipoprotein cholesterol; Translations: [...] status; Translations: [Encounter for screening for COVID-19] Episodic Intracranial injury (6 sources) Concussion injury of body structure; Translations: [Concussion] 02-22-2024 Episodic Menopausal disorders (10 sources) Atrophy of vagina; Translations: [Postmenopausal atrophic [...] Translations: [Unspecified deformity of right finger(s)] Onset: 5 Episodic Other and unspecified benign neoplasm (20 [...] Episodic Other diseases of bladder and urethra (11 sources) Lesion of bladder; Translations: [Bladder disorder, unspecified] 06-10-2023 Chronic Other diseases of bladder and urethra (3 sources) Bladder disorder, unspecified; Translations: [Unspecified disorder of bladder] 07-05-2023 Chronic Other diseases of kidney and ureters (3 sources) Hydronephrosis; Translations: [Other hydronephrosis] 10-15-2023 Episodic Other disorders of stomach and duodenum (13 sources) Gastroparesis syndrome; Translations: [Gastroparesis] 04-05-2024 Episodic [...] Translations: [Irritable bowel syndrome without diarrhea] Onset: 03-24-2021 Chronic Other gastrointestinal disorders (10 sources) Irritable bowel syndrome without diarrhea; Translations: [Irritable bowel syndrome] 07-17-2022 Chronic Other gastrointestinal disorders (3 sources) Irritable bowel syndrome with diarrhea; Translations: [Irritable bowel syndrome with diarrhea] 10-30-2022 Chronic Other gastrointestinal disorders (2 sources) Mixed irritable bowel syndrome; Translations: [Mixed irritable bowel syndrome] Onset: Chronic Other gastrointestinal disorders (20 sources) H/O: gastrointestinal disease; Translations: [Personal history of other diseases of the digestive system] 10-29-2021 Episodic Other gastrointestinal disorders (20 sources) Abdominal bloating; Translations: [Abdominal distension (gaseous)] Episodic Other gastrointestinal disorders (3 sources) Abdominal distension (gaseous); Translations: [Flatulence, eructation, and gas pain] 07-17-2022 Episodic Other hematologic conditions (11 sources) Serum total protein abnormal; Translations: [Other specified abnormalities of plasma proteins] 05-18-2023 Episodic Comment on above: Chromogranin A Other injuries and conditions due to external causes (3 sources) Injury of left knee; Translations: [Unspecified injury of left lower leg, initial encounter] 12-16-2022 Episodic Other injuries and conditions due to external causes (6 sources) Contusion of multiple sites; Translations: [Unspecified multiple injuries, initial encounter] 02-22-2024 Episodic Other lower respiratory disease (20 sources) Cough; Translations: [Cough] Episodic Other lower respiratory disease (2 sources) Dyspnea; Translations: [Shortness of breath] Episodic Other lower respiratory disease (1 source) Cough; Translations: [Acute cough] 06-15-2022 Episodic Other lower respiratory disease (6 sources) Rib pain; Translations: [Pleurodynia] 02-25-2024 Episodic [...] lower leg] Episodic Other non-traumatic joint disorders (14 sources) Pain in left knee; Translations: [Left knee pain] 12-18-2022 Episodic Other non-traumatic joint disorders (6 sources) Pain in left shoulder; Translations: [Left shoulder pain] 11-05-2023 Episodic Other nutritional; endocrine; and metabolic disorders (20 sources) Obesity; Translations: [Obesity, unspecified] Onset: 8 03-21-2010 Chronic Other nutritional; endocrine; and metabolic disorders (20 sources) Cholesterol level - finding; Translations: [Lipoprotein deficiency] Onset: 1 10-16-2010 Chronic Other nutritional; endocrine; and metabolic disorders (10 sources) Body mass index (BMI) 35.0-35.9, adult; Translations: [Body Mass Index 35.0-35.9, adult] Onset: 5 Chronic Other nutritional; endocrine; [...] of breast; Translations: [Breast screening, unspecified] Onset: 5 04-01-2022 Episodic Other skin disorders (6 sources) Disorder of the skin and subcutaneous tissue, unspecified; Translations: [Unspecified disorder of skin and subcutaneous tissue] 05-20-2022 Episodic Other skin disorders (1 source) Eruption; Translations: [Rash and other nonspecific skin eruption] 07-21-2024 Episodic Other skin disorders (10 sources) Skin lesion; Translations: [Disorder of the skin and subcutaneous tissue, unspecified] 08-30-2024 Episodic Other upper respiratory disease (5 sources) Other specified disorders of nose and nasal sinuses; Translations: [Other disease of nasal cavity and sinuses] Episodic Other upper respiratory infections (20 sources) Acute maxillary sinusitis; Translations: [Acute maxillary sinusitis, unspecified] 10-29-2021 Episodic Residual codes; unclassified (18 sources) Family history of cancer of colon; Translations: [Family history of malignant neoplasm of digestive organs] 07-08-2022 Episodic Comment on above: PGM. father with waqas yps. She does screening every 5 years Residual codes; unclassified (16 sources) Postmenopausal state; Translations: [Asymptomatic menopausal state] 08-20-2022 Episodic Residual codes; unclassified (2 sources) Asymptomatic menopausal state; Translations: [Asymptomatic postmenopausal status (age-related) (natural)] 08-20-2022 Episodic Residual codes; unclassified (2 sources) Family history of ischemic heart disease and other diseases of the circulatory system; Translations: [Family history of ischemic heart disease and other diseases of the circulatory system] Onset: 5 Episodic Rheumatoid arthritis and related disease (16 sources) Inflammatory polyarthropathy; Translations: [Inflammatory polyarthropathy] Onset: 4 12-22-2023 Chronic Screening and history of mental health and substance abuse codes (20 sources) H/O: anxiety state; Translations: [Personal history of other mental and behavioral disorders] 11-28-2019 Episodic Unclassified (1 source) Low back pain, unspecified; Translations: [Low back pain, unspecified] Onset: 5 Unclassified (1 source) Obesity, class 2; Translations: [Obesity, class 2] Onset: 5 Urinary tract infections (20 sources) [...] myositis, unspecified] Onset: 06-15-2013 06-15-2013 Episodic Other injuries and conditions due to external causes (1 source) Encounter for examination and observation following other accident; Translations: [Encounter for examination and observation following other accident] Onset: 03-16-2024 Episodic Ovarian cyst (7 sources) Cyst of ovary; Translations: [Unspecified ovarian cyst, left side] Onset: 03-28-2024 02-18-2024 Episodic Spondylosis; intervertebral disc disorders; other back problems (20 sources) Neck pain; Translations: [Cervicalgia] Onset: 06-15-2013 06-15-2013 Episodic Sprains and strains (20 sources) Sprain of foot; Translations: [Unspecified sprain of unspecified foot, initial encounter] Onset: 11-04-2007 03-21-2010 Episodic Unclassified (1 source) Obesity, class 2; Translations: [Obesity, class 2] Onset: 11-15-2024 Results Test Name Value Interpretation Reference Range Facility 36on 12-14-2024 36 Rx sent. Follow up a s scheduled. [place] [address] Prescription Request : fluticasone propionate 50 mcg/actuation nasal spray,suspension Last medication check: 05/17/24 Last physical exam: 11/15/24 Next scheduled appointment: 05/16/25 Last date of refill on this medication 05/28/24 ( qty 16 g refill 2) [address] 12-13-2024 36 Lvm pts vm. [place] [address] Thank you for verify ing. Rx sent for as needed Flexeril. Another 30-day supply was sent for the rosuvastatin and will refill according to repeat blood work when she is able to get this done. [place] [address] Noted. Agree with recommendations provided. Thank you. [facility] 36 Pt states that she h ad been going to a urologist in [place] and that is where she had gotten this medication from. She states that she is now seeing Dr. Holden. I suggested that she try through his office to get this medication refilled and if they can't to let us know so we can see what can be done. [facility] 36 Pt states that when she was in the hospital for a fall, she received this medication. She has been taking only 1 pill for her back when she has spasms sporadically. She is still using the medication from the original bottle. She states she'd like to have it on hand for when her back spasms. Pt also states that the rosuvastatin that she is on isn't producing any side effects and is working for her. She is rescheduling the nurse appt to have the blood drawn. Let her know she could go to any [facility] location and they should have the orders. [facility] 36 I do not see where w e have ever filled this prescription for Marcelino? Has she been getting this from another provider? [place] [address] I do not see where w e have ever filled this prescription for Marcelino. Has she been getting this from another provider? [facility] 36 Prescription Request : cephalexin (Keflex) 250 MG capsule Last medication check: 05/17/24 Last physical exam: 11/15/24 Next scheduled appointment: 05/16/25 Last date of refill on this medication 04/07/23 historical provider [facility] 36 Prescription Request : cyclobenzaprine (Flexeril) 5 MG tablet Last medication check: 05/17/24 Last physical exam: 11/15/24 Next scheduled appointment: 05/16/25 Last date of refill on this medication 04/21/24 Historical Provider [facility] 36on 11-16-2024 36 Med and labs pended. [facility] Office Visiton 11-15-2024 Follow-up visit [id number] Harriett Araiza sa 1975 F Date Provider Department Center 11/15/2024 [id number] [facility] Family History Problem Relation Age of Onset Hypertension Mother Cancer Maternal Grandmother Cancer Paternal Grandfather Heart disease Paternal Grandmother Arthritis Mother Depression Mother Diabetes Mother Arthritis Father Colon cancer Father Diabetes Father Asthma Brother Colon cancer Maternal Grandmother Diabetes Maternal Grandmother Hearing loss Maternal Grandmother Depression Paternal Grandfather Diabetes Paternal Grandfather Vision loss Paternal Grandfather Diabetes Paternal Grandmother Hearing loss Paternal Grandmother Family Status - Relation Status Age at Mother Maternal Grandmother Paternal Grandfather Paternal Grandmother Father Alive Brother Alive Level of Service:27345 RI PERIODIC PREVENTIVE MED EST PATIENT 40-64YRS Reason for Visit and Comments: Annual Exam [83] Blood Work [312763] [facility] Progress Noteon 11-15-2024 Progress Note [facility] - [address] [id number] Marcelino Araiza is a 48 y.o. female who presents for Annual Exam and Blood Work Assessment/Plan 1. Well adult exam (Z00.00) - Annual physical exam completed - Fasting blood work ordered including TSH - Calcium score screening ordered for cardiac risk assessment - Continue current medications and lifestyle modifications 2. Inflammatory polyarthropathy (HCC) (M06.4) - chronic, episodic - Currently using Meloxicam daily and gabapentin as needed - Continue current regimen 3. Mild intermittent asthma without complication (J45.20) - chronic, stable - Continue Albuterol inhaler as prescribed 4. Mild episode of recurrent major depressive disorder (HCC) (F33.0) - chronic, fluctuating - Currently on Wellbutrin and Prozac - Continue current regimen and monitor 5. Anxiety (F41.9) - chronic, somewhat difficult to manage - Continue current management with Wellbutrin and Prozac 6. Primary hypertension (I10) - chronic, stable - Blood pressure today: 129/89 - Continue lisinopril, prescription refilled 7. Vitamin D deficiency (E55.9) - seasonal - Patient takes supplements in winter months - Advised to restart supplementation in fall 8. Hyperlipidemia, unspecified hyperlipidemia type (E78.5) - chronic, status unknown - Cholesterol levels to be checked with today's blood work - Discuss results and potential treatment options at follow-up 9. Family history of heart disease (Z82.49) - Grandmother had heart disease - Calcium score screening ordered for further risk assessment 10. Class 2 obesity due to excess calories without serious comorbidity with body mass index (BMI) of 35.0 to 35.9 in adult (E66.812, E66.09, Z68.35) - chronic, improving - Current BMI: 35.94, down from previous visit - Continue current diet and exercise regimen 11. Irritable bowel syndrome with both constipation and diarrhea (K58.2) - chronic, stable - Continue current management with Protonix and carafate 12. Gastroesophageal reflux disease, unspecified whether esophagitis present (K21.9) - chronic, stable - Continue current management with Protonix and carafate 13. Palpitations (R00.2) - episodic, new - Patient reports occasional episodes lasting about a minute - Monitor frequency and duration of episodes - Consider event monitor if symptoms worsen or increase in frequency - Will check a TSH level today 14. Screening for diabetes mellitus (Z13.1) - Fasting blood work ordered 15. Screening for deficiency anemia (Z13.0) - Blood work ordered Marcelino was seen today for annual exam and blood work. Diagnoses and all orders for this visit: Well adult exam (Primary) Inflammatory polyarthropathy (HCC) - Comprehensive metabolic panel; Future - CBC; Future - meloxicam (Mobic) 15 MG tablet; Take 1 tablet (15 mg) by mouth daily. - Comprehensive metabolic panel - CBC Mild intermittent asthma without complication - Comprehensive metabolic panel; Future - CBC; Future - Comprehensive metabolic panel - CBC Mild episode of recurrent major depressive disorder (HCC) - Comprehensive metabolic panel; Future - CBC; Future - TSH; Future - Comprehensive metabolic panel - CBC - TSH Anxiety - Comprehensive metabolic panel; Future - CBC; Future - TSH; Future - Comprehensive metabolic panel - CBC - TSH Primary hypertension - Comprehensive metabolic panel; Future - CBC; Future - lisinopril 5 MG tablet; Take 1 tablet (5 mg) by mouth daily. - Comprehensive metabolic panel - CBC Vitamin D deficiency - Comprehensive metabolic panel; Future - CBC; Future - Comprehensive metabolic panel - CBC Hyperlipidemia, unspecified hyperlipidemia type - Lipid panel; Future - Comprehensive metabolic panel; Future - CBC; Future - CT heart calcium scoring wo IV contrast; Future - Lipid panel - Comprehensive metabolic panel - CBC Family history of heart disease - CT heart calcium scoring wo IV contrast; Future Class 2 obesity due to excess calories without serious comorbidity with body mass index (BMI) of 35.0 to 35.9 in adult - Comprehensive metabolic panel; Future - CBC; Future - CT heart calcium scoring wo IV contrast; Future - TSH; Future - Comprehensive metabolic panel - CBC - TSH Irritable bowel syndrome with both constipation and diarrhea - Comprehensive metabolic panel; Future - CBC; Future - Comprehensive metabolic panel - CBC Gastroesophageal reflux disease, unspecified whether esophagitis present - Comprehensive metabolic panel; Future - CBC; Future - Comprehensive metabolic panel - CBC Palpitations - TSH; Future - TSH Screening for diabetes mellitus - Comprehensive metabolic panel; Future - Comprehensive metabolic panel Screening for deficiency anemia - CBC; Future - CBC Follow up in about 6 months (around 05/18 (more content not included)... [facility] Progress Note Patient verified by last name and . [facility] 36on 10-23-2024 36 Last read by Marcelinomarty Araiza at 10:31AM on 10/15/2024. [facility] Gastroenterology Visit Repor ton 10-18-2024 Gastroenterology Visit Report [facility] [address] [place] [address] OFFICE VISIT Date of Service: 10/18/24 MR#: [id number] Acct: [id number] Name: MARCELINO ARAIZA Rep #: [id number] : 1975 Provider: Tanna Nava DO Age/Sex: 48/F Location: [facility] Status: Signed Intake Vital Signs 02/17/24 18:22 08/30/24 09:56 Height 5 ft 8 in 5 ft 8 in Intake Visit Reasons: 3 M FU Allergies ofloxacin Allergy (Severe, Verified 08/30/24 10:03) SWELLING Environmental Allergies: Uncoded Allergy (Intermediate, Verified 08/30/24 10:03) Itching Medications ???Medication ???Instructions ???Recorded ???Confirmed ???Type albuterol sulfate 90 mcg/actuation 2 puff inhalation Q6H PRN 10/18/24 Rx aerosol inhaler shortness of breath or wheezing #8.5 grams dicyclomine 10 mg capsule 10 mg PO TID PRN abdominal pain 10/18/24 History bupropion HCl 300 mg 24 hr tablet, 300 mg PO QAM #90 tabs 06/24/22 10/18/24 Rx extended release (Wellbutrin XL) lisinopril 5 mg tablet 5 mg PO DAILY #30 tabs 08/13/22 Rx fluoxetine 40 mg capsule 40 mg PO DAILY #90 caps 09/21/22 0 10/18/24 Rx albuterol sulfate 2.5 mg/0.5 mL 5 mg inhalation Q6H PRN shortness 09/24/22 10/18/24 Rx solution for nebulization of breath or wheezing #30 ea fluticasone propionate 50 1 spray intranasal DAILY PRN 06/0210/18/24 History mcg/actuation nasal allergy symptoms spray,suspension (Flonase Allergy Relief) meloxicam 15 mg tablet 15 mg PO DAILY Pain 06/03/2310/18 History clindamycin phosphate 1 % topical 1 applic topical BID 07/04/23 History gel ondansetron 4 mg disintegrating 4 mg PO TID PRN nausea and 4 10/18/24 Rx tablet vomiting #21 tabs lidocaine 5 % topical patch 1 patch topical DAILY #15 ea 02/1610/18/24 Rx (Lidoderm) fluoxetine 20 mg capsule 20 mg PO QDAY 04/05/24 10/18/24 Hi story sucralfate 100 mg/mL oral 10 ml PO BID 1 month #600 mL 04/0510/18/24 Rx suspension (Carafate) pantoprazole 20 mg tablet,delayed 20 mg PO BID #60 tabs 04/13/24 Rx release cyclobenzaprine 5 mg tablet 5 mg PO TID PRN muscle spasm #30 0 04/21/24 10/18/24 Rx tabs estradiol 0.01% (0.1 mg/gram) See Rx Instructions vaginal 10/18/24 Rx vaginal cream .COMPLEX #42.5 grams gabapentin 100 mg capsule 100 mg PO BID 08/30/24 10/18/24 Hi story PFSH Medical History Pelvic pain Left shoulder [...] 3 current occupational status: employed current occupation: [employer]- Patient Liason sexually active: Yes Smoking [...] oily with associated flank pain. ? EGD 8 without visual abnormality ? (more content not included)... Normal [facility] Pelvic w/ Transvaginalon Pelvic w/ Transvaginal [facility] [address] [place], [place] [address] Pelvic w/ Transvaginal MR#: [id number] Acct: [id number] Name: MARCELINO ARAIZA Rep #: [id number] : 1975 F 48 From: Vita Lind MD PCP: TEJINDER Le Status: [facility] Study: Pelvic w/ Transvaginal Date of Exam: 10/18/24 Exam# [id number] Ordering Dr: Chrystal Conteh DO PROCEDURE: PELVIC W/ TRANSVAGINAL 10/18/2024 REASON FOR EXAM: PELVIC PAIN, OVARIAN CYST TECHNIQUE: PELVIC W/ TRANSVAGINAL. Transabdominal and transvaginal grayscale, color and spectral Doppler pelvic ultrasound. COMPARISON: 09/01/2024 and 02/28/2024 FINDINGS: ENDOMETRIUM: Homogeneous. Normal thickness of 2.5 mm. No abnormal endometrial color Doppler flow. UTERUS: Anteverted. Normal size and contour measuring 8.7 x 4.3 x 3.4 cm with parenchymal heterogeneity. No fibroid detected. CERVIX: Normal size and contour. Anechoic cervical nabothian cysts. RIGHT OVARY: Normal size and appearance measuring 3.0 x 2.1 x 1.8 cm. Normal follicles. Normal blood flow. No adnexal mass. LEFT OVARY: Normal size 3.3 x 2.7 x 2.2 cm containing a 1.7 x 2.0 x 1.7 cm cyst with internal echoes. Anechoic 1.0 x 1.2 x 0.7 cm cyst along the left ovary, likely a simple paraovarian cyst. Normal blood flow. No adnexal mass. FREE FLUID: Mild free fluid. OTHER: Normal appearance of the urinary bladder. US/Pelvic w/ Transvaginal IMPRESSION: Complex 2.0 cm left ovarian cyst, likely a hemorrhagic cyst. O-RADS US 2 - Almost certainly benign category (<1% risk of malignancy). No follow-up recommended. Reading Location: [id number] CC: TEJINDER Gomez; Dr. Chrystal Conteh DO Automotive Service Cashier: Signed Normal [facility] 36on 10-12-2024 36 OneCard[employer] message sent to patient advising her of xray results. Normal [employer] [facility] Finger(s) Min 2 Viewson 09-26 Finger(s) Min 2 Views [facility] [address] [place] [address] Finger(s) Min 2 Views MR#: [id number] Acct: [id number] Name: MARCELINO ARAIZA Rep #: [id number] : 1975 F 48 From: Jimenez Gilbert MD PCP: ETJINDER Le Status: REG CLI Study: Finger(s) Min 2 Views Date of Exam: 10/09/24 Exam# [id number] Ordering Dr: ROSEANN GEE PROCEDURE: FINGER(S) MIN 2 VIEWS 10/09/2024 REASON FOR EXAM: INDEX FINGER MASS TECHNIQUE: FINGER(S) MIN 2 VIEWS COMPARISON: No FINDINGS: Mild osteoarthritic changes, interphalangeal joints, mainly small osteophyte formation, and juxta- articular soft tissue calcification.. No acute bone or soft tissue pathology. RAD/Finger(s) Min 2 Views IMPRESSION: Mild osteoarthritic changes Reading Location[facility] CC: TEJINDER Gomez; ROSEANN GEE Automotive Service Cashier: Signed Normal [facility] 36on 10-04-2024 36 Reviewed chart. Refi ll appropriate. RX sent. [facility] 36 Prescription Request : Last medication check: 05/17/24 Last physical exam: 11/10/23 Next scheduled appointment: 11/15/24 Last date of refill on this medication 02/25/24 [facility] PAP IG HPV APTIMA 16/18,45on 09-01-2024 ADEQ Comment Normal . [facility] Comment on above: Order Comment: Speci men Comment: [id number] Specimen Comment: No. of containers..01 ThinPrep Vial Result Comment: Sati sfactory for evaluation. Endocervical and/or squamous metaplastic cells (endocervical component) are present. Performed By: #### L 7400.0280 #### [facility] [address] [place], [address] COMM . Normal . [facility] Comment on above: Order Comment: Speci men Comment: [id number] Specimen Comment: No. of containers..01 ThinPrep Vial Performed By: #### L 7400.0280 #### [facility] [address] [place], [address] COMMENT Comment Normal . [facility] Comment on above: Order Comment: Speci men Comment: [id number] Specimen Comment: No. of containers..01 ThinPrep Vial Result Comment: This liquid based ThinPrep(R) pap test was screened with the use of an image guided system. Performed By: #### L 7400.0280 #### [facility] [address] [place], [place], [id number] DIAG Comment Abnormal . [facility] Comment on above: Order Comment: Speci men Comment: [id number] Specimen Comment: No. of containers..01 ThinPrep Vial Result Comment: EPIT HELIAL CELL ABNORMALITY. ATYPICAL SQUAMOUS CELLS OF UNDETERMINED SIGNIFICANCE (ASC-US). Performed By: #### L 7400.0280 #### [facility] [address] [place], [place], [id number] HPV APTIMA, HR Negative Normal Negative [facility] Comment on above: Order Comment: Speci men Comment: [id number] Specimen Comment: No. of containers..01 ThinPrep Vial Result Comment: This nucleic acid amplification test detects fourteen high- risk HPV types (16,18,31,33,35,39,45,51,52,56,58,59,66,68) without differentiation. Performed By: #### L 7400.0280 #### [facility] [address] [place], [place], [id number] HPV Kate Rfx Comment Normal . [facility] Comment on above: Order Comment: Speci men Comment: [id number] Specimen Comment: No. of containers..01 ThinPrep Vial Result Comment: Crit eria not met, HPV Genotype not performed. Performed at: [address] [id number] Printing Manager: Alysa Angela MD, Phone: [phone] Performed at: =[address] [id number] Printing Manager: Alysa Angela MD, Phone: [phone] Performed By: #### L 7400.0280 #### [facility] [address] [place], [place], [id number] PAPSMR Comment Normal . [facility] Comment on above: Order Comment: Speci men Comment: [id number] Specimen Comment: No. of containers..01 ThinPrep Vial Result Comment: The Pap smear is a screening test designed to aid in the detection of premalignant and malignant conditions of the uterine cervix. It is not a diagnostic procedure and should not be used as the sole means of detecting cervical cancer. Both false-positive and false-negative reports do occur. Performed By: #### L 7400.0280 #### [facility] [address] [place], [place], [id number] Path.prov.IDC-9 Comment Normal . [facility] Comment on above: Order Comment: Speci men Comment: [id number] Specimen Comment: No. of containers..01 ThinPrep Vial Result Comment: R87. 610 Performed By: #### L 7400.0280 #### [facility] [address] [place], [place], [id number] PERFORM Comment Normal . [facility] Comment on above: Order Comment: Speci men Comment: [id number] Specimen Comment: No. of containers..01 ThinPrep Vial Result Comment: Aishwarya Bruno, Absorption Operator (ASCP) Performed By: #### L 7400.0280 #### [facility] [address] [place], [address] SIGN Comment Normal . [facility] Comment on above: Order Comment: Speci men Comment: [id number] Specimen Comment: No. of containers..01 ThinPrep Vial Result Comment: Carol Martinez MD, Pathologist Performed By: #### L 7400.0280 #### [facility] [address] [place], [address] Pelvic w/ Transvaginalon Pelvic w/ Transvaginal [facility] [address] [place] [address] Pelvic w/ Transvaginal MR#: [id number] Acct: [id number] Name: MARCELINO ARAIZA Rep #: [id number] : 1975 F 48 From: Jefry Mosley DO PCP: TEJINDER Le Status: REG CLI Study: Pelvic w/ Transvaginal Date of Exam: 09/01/24 Exam# [id number] Ordering Dr: Chrystal Conteh DO PROCEDURE: PELVIC [...] weeks. Uterus unremarkable as seen. Reading Location: [facility] CC: TEJINDER Gomez; Dr. Chrystal Conteh DO Automotive Service Cashier: Signed Normal [facility] Cervical or vaginal specimen microscopic examination by liquid based cytology (reportOrdered By: Denise Duff on 08-30-2024 Cytology report Cyto stain.thin prep Doc (Cvx/Vag) Comment . [facility] Comment on above: Criteria not met, HP V Genotype not performed.Performed at: - [facility] [id number] Director: Alysa Angela MD, Phone: [phone] at: = - [facility] [id number] Director: Alysa Angela MD, Phone: [phone] Cervical or vagninal specime n microscopic examination by cytology stain (reported asOrdered By: Denise Duff on 08-30-2024 Cytology report Cyto stain Doc (Cvx/Vag) Comment . [facility] Comment on above: The Pap smear is [...] DNA Probe+sig amp Ql (Cvx) Negative Negative [facility] Comment on above: This nucleic acid am plification test detects fourteen high- risk HPV types (16,18,31,33,35,39,45,51,52,56,58,59,66,68)without differentiation. Laboratory - CytologyOrdered By: Denise Duff on 08-30-2024 Absorption Operator Cyto stain Nom (Cvx/Vag) [ID] Comment . [facility] Comment on above: Aishwarya Bruno, Cytolo gist (ASCP) Pathologist Cyto stain Nom (Cvx/Vag) [ID] Comment . [facility] Comment on above: Aviva Martinez MD, P athologist Laboratory - Miscellaneous t estsOrdered By: Denise Duff on 08-30-2024 Service comment (Unsp spec) [Interp] . . [facility] No Panel InformationOrdered By: Denise Duff on 08-30-2024 Pap Smear Specimen Adequacy Comment . [facility] Comment on above: Satisfactory for garrett luation. Endocervical and/or squamous metaplasticcells (endocervical component) are present. Pathology report final diagnosis Narrative Comment . [facility] Comment on above: R87.610 Manager Merchandise Office Visit Reporton 08-30-2024 Manager Merchandise Office Visit Report [facility] [address], [address] [place] [address] OFFICE VISIT Date of Service: 08/30/24 MR#: [id number] Acct: [id number] Name: MARCELINO ARAIZA Rep #: [id number] : 1975 Provider: TEJINDER Hamm Age/Sex: 48/F [place] [facility] [place]: Signed Intake Vital Signs 02/17/24 18:22 08/30/24 09:56 Height 5 ft 8 in 5 ft 8 in Weight: 242 lb 6 oz BMI 36.8 BP 97/61 Intake Visit Reasons: Annual (CONCRETE TESTER) Branch Associate Required: No Is patient in pain?: No [...] 3 current occupational status: employed current occupation: [employer]- Patient Liason sexually active: Yes Smoking [...] pregnancies H (more content not included)... Normal [facility] Progress Noteon 08-18-2024 Progress Note 08/18/2024 Marcelino [...] stated that they are currently in the [facility]. If the patient is a minor, permission has been obtained by the parent or guardian for the patient to receive medical care at this visit. Assessment/Plan 1. Neuropathy of right foot - gabapentin (Neurontin) 100 MG capsule; Take 1 capsule (100 mg) by mouth 2 times daily., Starting Wed08/18/2024, Normal - chronic, improving - Patient reports [...] was used to authenticate this note. Ashley Goemz APRN - SONOGRAPHER 08/18/2024 1:22 PM [facility] Progress Noteon 07-21-2024 Progress Note 07/21/2024 [...] stated that they are currently in the [facility]. If the patient is a [...] TERE Chung CNP 07/21/2024 1:56 PM Normal [facility] Gastroenterology Visit Repor ton 07-07-2024 Gastroenterology Visit Report [facility] [address] [place] [address] OFFICE VISIT Date of Service: 07/07/24 MR#: [id number] Acct: [id number] Name: MARCELINO ARAIZA Rep #: [id number] : 1975 Provider: Tanna Nava DO Age/Sex: 48/F Location: [facility] [place] Status: Signed Intake Vital Signs 02/17/24 [...] 3 current occupational status: employed current occupation: [employer]- Patient Liason sexually active: Yes Smoking [...] FH paternal grandmo (more content not included)... [facility] 36on 05-26-2024 36 This was sent to [facility] on 05/22/24. Normal [facility] 36 Prescription Request : Last medication check: 05/17/24 Last physical exam: 11/10/23 Next scheduled appointment: 11/15/24 Last date of refill on this medication 04/30/23 [facility] 36 Prescription Request : Last medication check: 05/17/24 Last physical exam: 11/10/23 Next scheduled appointment: 11/15/24 Last date of refill on this medication not found [facility] 36on 05-22-2024 36 Rx sent. Follow up a s scheduled. [facility] 36 Prescription Request : Last medication check: 05/17/24 Last physical exam: 11/10/23 Next scheduled appointment: 11/15/24 Last date of refill on this medication 12/08/23 90 and 1 refill [facility] Office Visiton 05-17-2024 Follow-up visit [id number] Harriett Araiza 1975 F Date Provider Department Center 05/17/2024 [id number] [facility] Family History Problem Relation Age of Onset Hypertension Mother Cancer Maternal Grandmother Cancer Paternal Grandfather Heart disease Paternal Grandmother Family Status - Relation Status Age at Mother Maternal Grandmother Paternal Grandfather Paternal Grandmother Level of Service:94096 RI OFFICE/OUTPATIENT ESTABLISHED MOD MDM 30 MIN Reason for Visit and Comments: Blood Work [965595] Medication Check [2513245019] Anxiety [9] Depression [32] Hypertension [279211] GERD [364283] Obesity [9246058585] Vitamin D Deficiency [413] Health Maintenance [872] - Mammo- had done at [facility] Progress Noteon 05-17-2024 Progress Note 05/17/2024 Marcelino Araiza (: 1975) is a 48 y.o. female , Established patient, here for evaluation of the following chief complaint(s): Blood Work, Medication Check, Anxiety, Depression, Hypertension, GERD, Obesity, Vitamin D Deficiency, and Health Maintenance (Mammo- had done at [facility] ) ASSESSMENT/PLAN: 1. Vitamin D deficiency [...] and it was recommended she see a flux core welder- saw them in November. Will use Cyclobenzaprine [...] fever. Respiratory: (more content not included)... Normal [facility] Progress Note Patient verified by last name and . Normal [facility] 36on 05-15-2024 36 She is due to have h er cholesterol levels rechecked so I recommend she come to the office for her visit. 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 Reading Location: [id number] CC: TEJINDER Gomez Automotive Service Cashier: Signed Normal [facility] L/S Spine Min 4 Viewson 03-30 L/S Spine Min 4 Views [facility] Radiology [address] [place] [address] L/S Spine Min 4 Views MR#: [id number] Acct: [id number] Name: MARCELINO ARAIZA Rep #: [id number] : 1975 F 48 From: Sina Sanchez PCP: TEJINDER Le Status: DEP AMB Study: L/S Spine Min 4 Views Date of Exam: 04/21/24 Exam# [id number] Ordering Dr: Dina Ramos [id number] INDICATION: pain -- please do upright AP, [...] Signed: Sina Walsh MD at 16:32 EST , CC: TEJINDER Gomez; JEANETH Pino Automotive Service Cashier: Signed Normal [facility] Orthopedic Visit Reporton Orthopedic Visit Report [facility] [address] [place] [address] [address] [place] [address] OFFICE VISIT Date of Service: 04/21/24 MR#: [id number] Acct: [id number] Name: MARCELINO ARAIZA Rep #: [id number] : 1975 Provider: JEANETH Pino Age/Sex: 48/F Location: [facility] Status: Signed Intake Vital Signs 02/17/24 18:22 [...] 3 current occupational status: employed current occupation: [employer]- Patient Liason sexually active: Yes Smoking Status: [...] This docu (more content not included)... Normal [facility] 36on 04-17-2024 36 Sent via [employer] [facility]. [place] [address] Doesn't look like linda has an active order in place. Can we place an order for her? Thanks! [facility] 36on 04-12-2024 36 Can we check with he r pharmacy please? Thank you. [place] [address] Should have refills available for all of these prescriptions. [facility] 36 Prescription Request : Last medication check: 06/18/23 Last physical exam: 11/10/23 Next scheduled appointment: 05/17/24 Last date of refill on this medication Wellbutrin 12/27/23, Prozac 20mg and 40mg 02/25/24, Meloxicam 02/28/24 [facility] Gastroenterology Visit Repor ton 04-05-2024 Gastroenterology Visit Report [facility] [address] [place] [address] OFFICE VISIT Date of Service: 04/05/24 MR#: [id number] Acct: [id number] Name: MARCELINO ARAIZA Rep #: [id number] : 1975 Provider: Tanna Nava DO Age/Sex: 48/F Location: [facility] Status: Signed Intake Vital Signs 07/14/23 [...] #600 mL 04/05/24 04/05/24 Rx suspension (Carafate) [facility] Medical History (Updated 04/05/24 @ 10:[address] Tanna Nava, ) Pelvic pain Left shoulder pain Osteoarthritis of [...] 3 current occupational status: employed current occupation: [employer]- Patient Liason sexually active: Yes Smoking Status: [...] up. FH paternal (more content not included)... [facility] 36 03-09-2024 36 Prescription Request : Last medication check: 06/18/23 Last physical exam: 11/10/23 Next scheduled appointment: 05/17/24 Last date of refill on this medication 03/30/23 18g 2 refills [facility] 36on 02-28-2024 36 Reviewed chart. Refi ll appropriate. RX sent. [facility] 36 Prescription Request : Last medication check: 04/28/2023 Last physical exam: 11/10/2023 Next scheduled appointment: 05/17/2024 Last date of refill on this medication: 08/13/2023 [facility] Pelvic w/ Transvaginalon Pelvic w/ Transvaginal [facility] Imaging Services [address] [place] [address] Pelvic w/ Transvaginal MR#: [id number] Acct: [id number] Name: MARCELINO ARAIZA Rep #: [id number] : 1975 F 48 From: Shaquille mason MD PCP: TEJINDER Le Status: REG CLI Study: Pelvic w/ Transvaginal Date of Exam: 02/28/24 Exam# [id number] Ordering Dr: Chrystal Conteh DO [id number] STUDY: ULTRASOUND OF THE FEMALE PELVIS - [...] CC: TEJINDER Gomez; Dr. Chrystal Conteh DO Automotive Service Cashier: Signed Normal [facility] Urinalysis, Completeon 02-27 BACTERIA Normal None Seen [facility] Comment on above: Order Comment: COLLE CTOR TO SPECIFY Result Comment: CROS SED OVER BY REGISTRATION, NO SPECIMEN COLLECTED. CATIE FROM OFFICE LAB IS GONNA HAVE OFFICE PUT THE ORDERS BACK IN. Performed By: #### L 400.0001 #### [facility] Laboratory [address] [place], [address] BILIRUBIN URINE Normal Negative [facility] Comment on above: Order Comment: COLLE CTOR TO SPECIFY Result Comment: CROS SED OVER BY REGISTRATION, NO SPECIMEN COLLECTED. CATIE FROM OFFICE LAB IS GONNA HAVE OFFICE PUT THE ORDERS BACK IN. Performed By: #### L 400.0001 #### [facility] [address] [place], [address] Clarity (U) Normal Clear [facility] Comment on above: Order Comment: COLLE CTOR TO SPECIFY Result Comment: CROS SED OVER BY REGISTRATION, NO SPECIMEN COLLECTED. CATIE FROM OFFICE LAB IS GONNA HAVE OFFICE PUT THE ORDERS BACK IN. Performed By: #### L 400.0001 #### [facility] [address] [place], [address] Color (U) Normal Yellow [facility] Comment on above: Order Comment: COLLE CTOR TO SPECIFY Result Comment: CROS SED OVER BY REGISTRATION, NO SPECIMEN COLLECTED. CATIE FROM OFFICE LAB IS GONNA HAVE OFFICE PUT THE ORDERS BACK IN. Performed By: #### L 400.0001 #### [facility] [address] [place], [address] EPI,SQUAMOUS Normal 5-10 [facility] Comment on above: Order Comment: COLLE CTOR TO SPECIFY Result Comment: CROS SED OVER BY REGISTRATION, NO SPECIMEN COLLECTED. CATIE FROM OFFICE LAB IS GONNA HAVE OFFICE PUT THE ORDERS BACK IN. Performed By: #### L 400.0001 #### [facility] [address] [place], [address] GLUCOSE, UR Normal Normal [facility] Comment on above: Order Comment: COLLE CTOR TO SPECIFY Result Comment: CROS SED OVER BY REGISTRATION, NO SPECIMEN COLLECTED. CATIE FROM OFFICE LAB IS GONNA HAVE OFFICE PUT THE ORDERS BACK IN. Performed By: #### L 400.0001 #### [facility] [address] [place], [address] KETONE UR Normal Negative [facility] Comment on above: Order Comment: COLLE CTOR TO SPECIFY Result Comment: CROS SED OVER BY REGISTRATION, NO SPECIMEN COLLECTED. CATIE FROM OFFICE LAB IS GONNA HAVE OFFICE PUT THE ORDERS BACK IN. Performed By: #### L 400.0001 #### [facility] [address] [place], [address] LEUK ESTERASE Normal Negative [facility] Comment on above: Order Comment: COLLE CTOR TO SPECIFY Result Comment: CROS SED OVER BY REGISTRATION, NO SPECIMEN COLLECTED. CATIE FROM OFFICE LAB IS GONNA HAVE OFFICE PUT THE ORDERS BACK IN. Performed By: #### L 400.0001 #### [facility] [address] [place], [address] Mucus Ql (Urine sed) Normal [facility] Comment on above: Order Comment: COLLE CTOR TO SPECIFY Result Comment: CROS SED OVER BY REGISTRATION, NO SPECIMEN COLLECTED. CATIE FROM OFFICE LAB IS GONNA HAVE OFFICE PUT THE ORDERS BACK IN. Performed By: #### L 400.0001 #### [facility] [address] [place], [address] Nitrite Ql (U) Normal Negative [facility] Comment on above: Order Comment: COLLE CTOR TO SPECIFY Result Comment: CROS SED OVER BY REGISTRATION, NO SPECIMEN COLLECTED. CATIE FROM OFFICE LAB IS GONNA HAVE OFFICE PUT THE ORDERS BACK IN. Performed By: #### L 400.0001 #### [facility] [address] [place], [address] OCCULT BLOOD-UR Normal Negative [facility] Comment on above: Order Comment: COLLE CTOR TO SPECIFY Result Comment: CROS SED OVER BY REGISTRATION, NO SPECIMEN COLLECTED. CATIE FROM OFFICE LAB IS GONNA HAVE OFFICE PUT THE ORDERS BACK IN. Performed By: #### L 400.0001 #### [facility] [address] [place], [address] pH UR Normal 5.0 - 8.0 [facility] Comment on above: Order Comment: COLLE CTOR TO SPECIFY Result Comment: CROS SED OVER BY REGISTRATION, NO SPECIMEN COLLECTED. CATIE FROM OFFICE LAB IS GONNA HAVE OFFICE PUT THE ORDERS BACK IN. Performed By: #### L 400.0001 #### [facility] [address] [place], [address] PROT DIPSTX Normal Negative [facility] Comment on above: Order Comment: COLLE CTOR TO SPECIFY Result Comment: CROS SED OVER BY REGISTRATION, NO SPECIMEN COLLECTED. CATIE FROM OFFICE LAB IS GONNA HAVE OFFICE PUT THE ORDERS BACK IN. Performed By: #### L 400.0001 #### [facility] [address] [place], [address] RBC Normal 0-5 [facility] Comment on above: Order Comment: COLLE CTOR TO SPECIFY Result Comment: CROS SED OVER BY REGISTRATION, NO SPECIMEN COLLECTED. CATIE FROM OFFICE LAB IS LANDYNA HAVE OFFICE PUT THE ORDERS BACK IN. Performed By: #### L 400.0001 #### [facility] [address] [place], [address] SP.GR. DIPSTX Normal 1.002-1.03 0 [facility] Comment on above: Order Comment: COLLE CTOR TO SPECIFY Result Comment: CROS SED OVER BY REGISTRATION, NO SPECIMEN COLLECTED. CATIE FROM OFFICE LAB IS GONNA HAVE OFFICE PUT THE ORDERS BACK IN. Performed By: #### L 400.0001 #### [facility] [address] [place], [address] UR Preservative Normal [facility] Comment on above: Order Comment: COLLE CTOR TO SPECIFY Result Comment: CROS SED OVER BY REGISTRATION, NO SPECIMEN COLLECTED. CATIE FROM OFFICE LAB IS GONNA HAVE OFFICE PUT THE ORDERS BACK IN. Performed By: #### L 400.0001 #### [facility] [address] [place], [address] UROBILI Normal Normal [facility] Comment on above: Order Comment: COLLE CTOR TO SPECIFY Result Comment: CROS SED OVER BY REGISTRATION, NO SPECIMEN COLLECTED. CATIE FROM OFFICE LAB IS GONNA HAVE OFFICE PUT THE ORDERS BACK IN. Performed By: #### L 400.0001 #### [facility] [address] [place], [address] WBC Normal 0-5 [facility] Comment on above: Order Comment: COLLE CTOR TO SPECIFY Result Comment: CROS SED OVER BY REGISTRATION, NO SPECIMEN COLLECTED. CATIE FROM OFFICE LAB IS GONNA HAVE OFFICE PUT THE ORDERS BACK IN. Performed By: #### L 400.0001 #### [facility] [address] [place], [address] Progress Noteon 02-25-2024 Progress Note 02/25/2024 Marcelino [...] that they are currently in the state [facility]. If the patient is a minor, permission [...] visit for follow up on her fatigue. [place] this may be related to her Prozac [...] was used to authenticate this note. Ashley Martinez Jason, TERE - ROSALIA 02/25/2024 10:00 AM Normal [facility] 36on 02-17-2024 36 Patient called and w [...] needs a CT of the abdomen? Normal [facility] Abdomen/Pelvis W IV Cont ONL Yon 02-17-2024 Abdomen/Pelvis W IV Cont ONLY [facility] Imaging Services [address] [place] [address] Abdomen/Pelvis W IV Cont ONLY MR#: [id number] Acct: [id number] Name: MARCELINO ARAIZA Rep #: [id number] : 1975 F 48 From: Yung Sanchez PCP: DUSTY LeC Status: REG ER Study: Abdomen/Pelvis W IV Cont ONLY Date of Exam: Exam# [id number] Ordering Dr: Deuce Hernadez DO [id number] INDICATION: fall, ecchymosis to abd anterior. Additional [...] Casillas, et al. (2019). Simple adnexal cysts: U consensus conference update on follow-up and reporting. Radiology, 293(2), 359?371. [email or web address]/rad [email or web address] Electronically Signed: Yung Penaloza MD at 21:17 EST , CC: TEJINDER Gomez; Dr. Deuce Hernadez DO Automotive Service Cashier: Signed Normal [facility] CBC W/Diff, Automatedon 11-2 Absolute Lymph 2.17 X10 3/uL Normal 0.83-4.51 [facility] Comment on above: Performed By: #### L 501.5340, L500.4050, L100.0100 ####[facility] [address] [place], [address] Absolute Neut 3.8 X10 3/uL Normal 2.0-7.7 [facility] Comment on above: Performed By: #### L 501.2450, L500.4050, L100.0100 ####[facility] [address] [place], [address] Basophils/100 WBC (Bld) 1.0 % Normal 0-1 [facility] Comment on above: Performed By: #### L 501.2450, L500.4050, L100.0100 ####[facility] [address] [place], [address] Eosinophils/100 WBC (Bld) 1.3 % Normal 0-5 [facility] Comment on above: Performed By: #### L 501.2450, L500.4050, L100.0100 ####[facility] [address] [place], [address] Erythrocyte distribution width (RBC) [Ratio] 11.9 % Normal 11.6-14.6 [facility] Comment on above: Performed By: #### L 501.2450, L500.4050, L100.0100 ####[facility] [address] [place], [address] Hematocrit (Bld) [Volume fraction] 40.1 % Normal 37-47 [facility] Comment on above: Performed By: #### L 501.2450, L500.4050, L100.0100 ####[facility] [address] [place], [address] Hemoglobin (Bld) [Mass/Vol] 13.9 g/dL Normal 12.0-15.0 [facility] Comment on above: Performed By: #### L 501.2450, L500.4050, L100.0100 ####[facility] [address] [place], [address] IG% 0.100 Normal 0.0-0.9 [facility] Comment on above: Result Comment: IG% - Immature Granulocytes (promyelocytes, myelocytes and metamyelocytes) > 1% indicates that a LEFT SHIFT is Present. Performed By: #### L 501.2450, L500.4050, L100.0100 ####[facility] [address] [place], [address] Lymphocytes/100 WBC (Bld) 32.3 % Normal 19-41 [facility] Comment on above: Performed By: #### L 501.2450, L500.4050, L100.0100 ####[facility] [address] [place], [address] MCH (RBC) [Entitic mass] 31.4 pg Normal 27.0-32.0 [facility] Comment on above: Performed By: #### L 501.2450, L500.4050, L100.0100 ####[facility] [address] [place], [address] MCHC (RBC) [Mass/Vol] 34.7 g/dL Normal 32-36 [facility] Comment on above: Performed By: #### L 501.2450, L500.4050, L100.0100 ####[facility] [address] [place], [address] MCV (RBC) [Entitic vol] 90.7 fL Normal 81-99 [facility] Comment on above: Performed By: #### L 501.2450, L500.4050, L100.0100 ####[facility] [address] [place], [address] Monocytes/100 WBC (Bld) 8.6 % Normal 0-10 [facility] Comment on above: Performed By: #### L 501.2450, L500.4050, L100.0100 ####[facility] [address] [place], [address] Neutrophils/100 WBC (Bld) 56.7 % Normal 47-70 [facility] Comment on above: Performed By: #### L 501.2450, L500.4050, L100.0100 ####[facility] [address] [place], [address] Nucleated RBC (Bld) [#/Vol] 0 10*3/uL Normal 0-5 [facility] Comment on above: Performed By: #### L 501.2450, L500.4050, L100.0100 ####[facility] [address] [place], [address] Platelet mean volume (Bld) [Entitic vol] 9.7 fL Normal 6.2-12.0 [facility] Comment on above: Performed By: #### L 501.2450, L500.4050, L100.0100 ####[facility] [address] [place], [address] Platelets (Bld) [#/Vol] 290 10*3/uL Normal 150-450 [facility] Comment on above: Performed By: #### L 501.2450, L500.4050, L100.0100 ####[facility] [address] [place], [address] RBC (Bld) [#/Vol] 4.42 10*6/uL Normal 4.2-5.4 [facility] Comment on above: Performed By: #### L 501.2450, L500.4050, L100.0100 ####[facility] [address] [place], [address] RDW SD 39.7 fl Normal 35.1-43.9 [facility] Comment on above: Performed By: #### L 501.2450, L500.4050, L100.0100 ####[facility] [address] [place], [address] WBC (Bld) [#/Vol] 6.7 10*3/uL Normal 4.4-11.0 [facility] Comment on above: Performed By: #### L 501.2450, L500.4050, L100.0100 ####[facility] [address] [place], [address] Chest without Contraston Chest without Contrast [facility] Imaging Services [address] [place] [address] Chest without Contrast MR#: [id number] Acct: [id number] Name: MARCELINO ARAIZA Rep #: [id number] : 1975 F 48 From: Yung Sanchez PCP: TEJINDER Le Status: REG ER Study: Chest without Contrast Date of Exam: 02/17/24 Exam# [id number] Ordering Dr: Deuce Hernadez DO [id number] INDICATION: fall rib pain right EXAMINATION: CT [...] CC: TEJINDER Gomez; Dr. Deuce Hernadez DO Automotive Service Cashier: Signed Normal [facility] Comprehensive Metabolic Prof ilon 02-17-2024 Albumin [Mass/Vol] 3.8 g/dL Normal 3.2-5.0 [facility] Comment on above: Performed By: #### L 501.2450, L500.4050, L100.0100 ####[facility] [address] [facility] [place], [address] Albumin/Globulin [Mass ratio] 1.1 {ratio} Normal 0.9-2.4 [facility] Comment on above: Performed By: #### L 501.2450, L500.4050, L100.0100 ####[facility] [address] [place], [address] ALK P 78 U/L Normal 45-117 [facility] Comment on above: Performed By: #### L 501.2450, L500.4050, L100.0100 ####[facility] [address] [place], [address] ALT [Catalytic activity/Vol] 23 U/L Normal 13-56 [facility] Comment on above: Performed By: #### L 501.2450, L500.4050, L100.0100 ####[facility] [address] [place], [address] AST [Catalytic activity/Vol] 17 U/L Normal 15-37 [facility] Comment on above: Performed By: #### L 501.2450, L500.4050, L100.0100 ####[facility] [address] [place], [address] Bilirubin [Mass/Vol] 0.30 mg/dL Normal 0.20-1.00 [facility] Comment on above: Result Comment: For patients on eltrombopag therapy, use of Dimension [place] TBIL is not recommended. Performed By: #### L 501.2450, L500.4050, L100.0100 ####[facility] [address] [place], [address] BUN/CRE 23.3 RATIO High 10-20 [facility] Comment on above: Performed By: #### L 501.2450, L500.4050, L100.0100 ####[facility] [address] [place], [address] CA,Total 9.3 mg/dL Normal 8.5-10.1 [facility] Comment on above: Performed By: #### L 501.2450, L500.4050, L100.0100 ####[facility] [address] [place], [address] Chloride [Moles/Vol] 102 mmol/L Normal 98-107 [facility] Comment on above: Performed By: #### L 501.2450, L500.4050, L100.0100 ####[facility] [address] [place], [address] CO2 [Moles/Vol] 27.0 mmol/L Normal 21.0-32.0 [facility] Comment on above: Performed By: #### L 501.2450, L500.4050, L100.0100 ####[facility] [address] [place], [address] Creatinine [Mass/Vol] 0.77 mg/dL Normal 0.55-1.02 [facility] Comment on above: Result Comment: The validity of the calculated GFR GFRAA in patients over 70 years has not been determined. Clinical correlation is essential. Performed By: #### L 501.2450, L500.4050, L100.0100 ####[facility] [address] [place], [address] ECRCL 118.65 ml/min Normal [facility] Comment on above: Performed By: #### L 501.2450, L500.4050, L100.0100 ####[facility] [address] [place], [address] EST GFR - AA 103 mL/min Normal >60 [facility] Comment on above: Result Comment: Afri can [place] GFR Calc Performed By: #### L 501.2450, L500.4050, L100.0100 ####[facility] [address] [place], [address] GAP 6 Normal 5-15 [facility] Comment on above: Performed By: #### L 501.2450, L500.4050, L100.0100 ####[facility] [address] [place], [address] GFR/1.73 sq M.predicted among non-blacks MDRD (S/P/Bld) [Vol rate/Area] 85 mL/min/{1.73_m2} Normal >60 [facility] Comment on above: Result Comment: Non- GFR Calc Performed By: #### L 501.2450, L500.4050, L100.0100 ####[facility] [address] [place], [address] Globulin (S) [Mass/Vol] 3.6 g/dL Normal 2.2-4.2 [facility] Comment on above: Performed By: #### L 501.2450, L500.4050, L100.0100 ####[facility] [address] [place], [address] Glucose [Mass/Vol] 85 mg/dL Normal 74-106 [facility] Comment on above: Performed By: #### L 501.2450, L500.4050, L100.0100 ####[facility] [address] [place], [address] Potassium [Moles/Vol] 3.8 mmol/L Normal 3.5-5.1 [facility] Comment on above: Performed By: #### L 501.2450, L500.4050, L100.0100 ####[facility] [address] [place], [address] Sodium [Moles/Vol] 135 mmol/L Low 136-145 [facility] Comment on above: Performed By: #### L 501.2450, L500.4050, L100.0100 ####[facility] [address] [place], [address] T PROT 7.4 g/dL Normal 6.4-8.2 [facility] Comment on above: Performed By: #### L 501.2450, L500.4050, L100.0100 ####[facility] [address] [place], [address] Urea nitrogen [Mass/Vol] 18 mg/dL Normal 7-18 [facility] Comment on above: Performed By: #### L 501.2450, L500.4050, L100.0100 ####[facility] [address] [place], [address] Emergency Department Summary on 02-17-2024 Emergency Department Summary [facility] Medical Records Department [address] [place] [address] Emergency Department Summary 02/17/24 MR#: [id number] Acct: [id number] Name: MARCELINO ARAIZA Rep #: [id number] : 1975 48 From: Deuce Hernadez DO [...] abdomen. Patient denies any blood thinning medications. [facility] Medical History Left shoulder pain Osteoarthritis [...] cholecystectomy So (more content not included)... Normal [facility] Lipaseon 02-17-2024 Lipase [Catalytic activity/Vol] 38 U/L Normal 13-75 [facility] Comment on above: Result Comment: Edmund alvarez note: LIPASE revised reference range effective 22. New Lipase methodology. Expected to produce lower values than the previous assay method. NEW Reference Range: 13 - 75 U/L Performed By: #### L 501.2450, L500.4050, L100.0100 ####[facility] [address] [place], [address] Urinalysis, Completeon 02-16 BACTERIA 1+ /hpf Normal None Seen [facility] Comment on above: Order Comment: CLEAN CATCH Performed By: #### L 400.0001 ####[facility] [address] [place], [address] EPI,SQUAMOUS 0-5 SEEN Normal 5-10 [facility] Comment on above: Order Comment: CLEAN CATCH Performed By: #### L 400.0001 ####[facility] [address] [place], [address] Mucus Ql (Urine sed) 1+ /hpf Normal [facility] Comment on above: Order Comment: CLEAN CATCH Performed By: #### L 400.0001 ####[facility] [address] [place], [address] RBC 0-5 SEEN Normal 0-5 [facility] Comment on above: Order Comment: CLEAN CATCH Performed By: #### L 400.0001 ####[facility] [address] [place], [place], [address] WBC 0-5 SEEN Normal 0-5 [facility] Comment on above: Order Comment: CLEAN CATCH Performed By: #### L 400.0001 ####[facility] [address] [place], [address] Brain/Head without Contrasto n 02-13-2024 Brain/Head without Contrast [facility] Imaging Services [address] [place] [address] Brain/Head without Contrast MR#: [id number] Acct: [id number] Name: MARCELINO ARAIZA Rep #: [id number] : 1975 F 48 From: Sadie Sanchez PCP: TEJINDER Le Status: REG ER Study: Brain/Head without Contrast Date of Exam: 01/27 10/19 Exam# [id number] Ordering Dr: Chapincito De La Rosa DO [id number] INDICATION: head injury EXAMINATION: CT BRAIN - [...] TEJINDER Gomez; Chapincito De La Rosa DO [employer] Cash[employer]: Signed Normal [facility] Emergency Department Summary on 02-13-2024 Emergency Department Summary [facility] Medical Records Department [address] [place] [address] Emergency Department Summary 02/13/24 MR#: [id number] Acct: [id number] Name: MARCELINO ARAIZA Rep #: [id number] : 1975 48 From: Chapincito De La [...] trauma/injury and therefore comes in for evaluation [facility] Medical History (Updated 02/16/24 @ 04:[address] Chapincito De La Rosa DO) Left shoulder pain Osteoarthritis of right [...] 3 current occupational status: employed current occupation: [employer]- Patient Liason sexually active: Yes Smoking Status: Never s (more content not included)... [facility] Progress Noteon 02-09-2024 Progress Note 02/09/2024 Marcelino Araiza (: 1975) [...] that they are currently in the state [facility]. If the patient is a minor, permission [...] note. TERE Chung CNP 02/09/2024 1:05 PM [facility] Progress Note Patient verified by last name and . [facility] 36on 2023 36 Rx sent. Follow up a s scheduled. [facility] 36 Prescription Request : Last medication check: 04/28/2023 Last physical exam: 11/10/2023 Next scheduled appointment: 05/17/2024 Last date of refill on this medication: 07/12/2023 [facility] CCP ANTIBODY IGGOrdered By: Zulma Russo on 12-23-2023 Cyclic citrullinated peptide IgG Qn NINF [facility] Cyclic citrullinated peptide IgG QnOrdered By: Zulma Russo on 12-23-2023 CCP Antibody IgG Qualitative Negative Negative [facility] Interpretation and review of laboratory results Normal [facility] This test is used as aid in diagnosis of Rheumatoid arthritis (RA). A negative result cannot rule out RA where clinically suspected. Clinical correlation is required. The following results were obtained with an [employer] Lite CCP IgG SWETHA. Cyclic Citrullinated Peptide IgG values obtained with different manufacturers' assay methods may not be used interchangeably. The magnitude of the reported IgG levels cannot be correlated to an endpoint titer. [facility] C-REACTIVE PROTEINon 024 CRP [Mass/Vol] mg/dL [facility] - 0.9 mg/dL [facility] CNOVon 12-22-2023 CNOV Office Visit (RHEUMN ) MARCELINO ARAIZA ([id number]) 1975 F Date Time Provider Department 12/22/23 9:00 [place] ABDUL During your visit today, we recorded the [...] reports she used to work in a [employer] for 5 years in the past and [...] 5 mg (more content not included)... Normal [facility] CRP SerPl-mCncon 12-22-2023 CRP [Mass/Vol] mg/L Normal <0.9 [facility] Comment on above: Order Comment: Speci men Type: BLOOD SPECIMEN Ordering Facility: [facility] Address: [address] [place] [address] Performed By: #### 1 1572-5, 1987-07, 76188-9 #### [facility] CLIA [id number] [address] [place] [address] [id number] [address] [place] [facility] Comprehensive metabolic 2000 panelon 12-22-2023 Albumin [Mass/Vol] 4.4 g/dL 3.9 - 4.9 g/dL [facility] ALP [Catalytic activity/Vol] 94 U/L 34 - 123 U/L [facility] ALT [Catalytic activity/Vol] 15 U/L 7 - 38 U/L [facility] Anion gap [Moles/Vol] 12 mmol/L 8 - 15 mmol/L [facility] AST [Catalytic activity/Vol] 18 U/L 13 - 35 U/L [facility] Bilirubin [Mass/Vol] 0.5 mg/dL 0.2 - 1 .3 mg/dL [facility] Calcium [Mass/Vol] 9.3 mg/dL 8.5 - 10. 2 mg/dL [facility] Chloride [Moles/Vol] 101 mmol/L 98 - 10 7 mmol/L [facility] CO2 [Moles/Vol] 25 mmol/L 22 - 30 mmol/L [facility] Creatinine [Mass/Vol] 0.74 mg/dL 0.58 - 0.96 mg/dL [facility] GFR/1.73 sq M.predicted among non-blacks MDRD (S/P/Bld) [Vol rate/Area] 101 mL/min/{1.73_m2} - PINF [facility] Comment on above: Estimated Glomerular Filtration [...] [Mass/Vol] 95 mg/dL 74 - 99 mg/dL [facility] Comment on above: The [place] Diabete s Association (ADA) provides guidance for [...] Standards of Medical Care in Diabetes 2016, [place] Diabetes Association. Diabetes Care. 2016.39(Suppl 1). Potassium [Moles/Vol] 4.6 mmol/L 3.7 - 5.1 mmol/L [facility] Protein [Mass/Vol] 7.2 g/dL 6.3 - 8.0 g/dL [facility] Sodium [Moles/Vol] 138 mmol/L 136 - 144 mmol/L [facility] Urea nitrogen [Mass/Vol] 12 mg/dL 7 - 21 mg/dL [facility] Albumin [Mass/Vol] 4.4 g/dL Normal 3.9-4.[address] [facility] Comment on above: Order Comment: Speci men Type: BLOOD SPECIMEN Ordering Facility: [facility] Address: [address] [place] [address] Performed By: #### 1 1571-07, #### [facility] CLIA [id number] [address] [place] [address] [place] [facility] ALP [Catalytic activity/Vol] 94 U/L Normal 34-123 [facility] Comment on above: Order Comment: Speci men Type: BLOOD SPECIMEN Ordering Facility: [facility] Address: [address] [place] [address] Performed By: #### 1 1571-07, #### [facility] CLIA [id number] [address] [place] [address] [place] [facility] ALT [Catalytic activity/Vol] 15 U/L Normal 7-38 [facility] Comment on above: Order Comment: Speci men Type: BLOOD SPECIMEN Ordering Facility: [facility] Address: [address] [place], [place] [id number] Performed By: #### 1 1571-07, 1987-07, #### [facility] CLIA [id number] [address] [place], [place] [id number] [place] [facility] Anion gap [Moles/Vol] 12 mmol/L Normal 8-15 [facility] Comment on above: Order Comment: Speci men Type: BLOOD SPECIMEN Ordering Facility: [facility] Address: [address] [place] [address] Performed By: #### 1 1571-07, 1987-07, #### [facility] CLIA [id number] [address] [place] [address] [place] [facility] AST [Catalytic activity/Vol] 18 U/L Normal 13-35 [facility] Comment on above: Order Comment: Speci men Type: BLOOD SPECIMEN Ordering Facility: [facility] Address: [address] [place] [address] Performed By: #### 1 1571-07, 1987-07, #### [facility] CLIA [id number] [address] [place] [address] [place] [facility] Bilirubin [Mass/Vol] 0.5 mg/dL Normal 0.2-1.3 [facility] Comment on above: Order Comment: Speci men Type: BLOOD SPECIMEN Ordering Facility: [facility] Address: [address] [place], [place] [id number] Performed By: #### 1 1571-07, 1987-07, #### [facility] CLIA [id number] [address] [place], [place] [address] [place] [facility] Calcium [Mass/Vol] 9.3 mg/dL Normal 8.5-10.[address] [facility] Comment on above: Order Comment: Speci men Type: BLOOD SPECIMEN Ordering Facility: [facility] Address: [address] [place], [place] [id number] Performed By: #### 1 1571-07, 1987-07, #### [facility] CLIA [id number] [address] [place] [address] [place] [facility] Chloride [Moles/Vol] 101 mmol/L Normal 98-107 [facility] Comment on above: Order Comment: Speci men Type: BLOOD SPECIMEN Ordering Facility: [facility] Address: [address] [place] [address] Performed By: #### 1 1571-07, 1987-07, #### [facility] CLIA [id number] [address] [place] [address] [place] [facility] CO2 [Moles/Vol] 25 mmol/L Normal 22-30 [facility] Comment on above: Order Comment: Speci men Type: BLOOD SPECIMEN Ordering Facility: [facility] Address: [address] [place] [address] Performed By: #### 1 1571-07, 1987-07, #### [facility] CLIA [id number] [address] [place] [address] [place] [facility] Creatinine [Mass/Vol] 0.74 mg/dL Normal 0.58-0.96 [facility] Comment on above: Order Comment: Speci men Type: BLOOD SPECIMEN Ordering Facility: [facility] Address: [address] [place] [address] Performed By: #### 1 1571-07, 1987-07, #### [facility] CLIA [id number] [address] [place] [address] [place] [facility] Creatinine and Glomerular filtration rate.predicted panel (S/P/Bld) 101 mL/min/1.73m??? Normal >=60 [facility] Comment on above: Order Comment: Speci men Type: BLOOD SPECIMEN Ordering Facility: [facility] Address: [address] [place] [address] Result Comment: Dora mated Glomerular Filtration Rate [...] GFR. Performed By: #### 1 1571-07, #### [facility] CLIA [id number] [address] [place] [address] [place] [facility] Glucose [Mass/Vol] 95 mg/dL Normal 74-[address] [facility] Comment on above: Order Comment: Corina pratt Type: BLOOD SPECIMEN Ordering Facility: [facility] Address: [address] [place] [address] Result Comment: The [place] Diabetes Association (ADA) provides guidance for cutoff [...] Standards of Medical Care in Diabetes 2016, [place] Diabetes Association. Diabetes Care. 2016.39(Suppl 1). Performed By: #### 1 1571-07, 1987-07, #### [facility] CLIA [id number] [address] [place] [address] [place] [facility] Potassium [Moles/Vol] 4.6 mmol/L Normal 3.7-5.1 [facility] Comment on above: Order Comment: Corina pratt Type: BLOOD SPECIMEN Ordering Facility: [facility] Address: [address] [place] [address] Performed By: #### 1 1571-07, #### [facility] CLIA [id number] [address] [place] [address] [place] [facility] Protein [Mass/Vol] 7.2 g/dL Normal 6.3-8.[address] [facility] Comment on above: Order Comment: Speci men Type: BLOOD SPECIMEN Ordering Facility: [facility] Address: [address] [place] [address] Performed By: #### 1 1571-07, 1987-07, #### [facility] CLIA [id number] [address] [place] [address] [place] [facility] Sodium [Moles/Vol] 138 mmol/L Normal 136-[address] [facility] Comment on above: Order Comment: Speci men Type: BLOOD SPECIMEN Ordering Facility: [facility] Address: [address] [place] [address] Performed By: #### 1 1571-07, 1987-07, #### [facility] CLIA [id number] [address] [place] [address] [place] Urea nitrogen [Mass/Vol] 12 mg/dL Normal 7-21 [facility] Comment on above: Order Comment: Speci men Type: BLOOD SPECIMEN Ordering Facility: [facility] Address: [address] [place] [address] Performed By: #### 1 1571-07, 1987-07, #### [facility] CLIA [id number] [address] [place] [address] [place] [facility] Cyclic citrullinated peptide IgG Qnon 12-22-2023 CCP ANTIBODY IGG QUALITATIVE Negative Normal Negative [facility] Comment on above: Order Comment: Speci men Type: BLOOD SPECIMEN Ordering Facility: [facility] Address: [address] [place] [address] Performed By: #### 1 1571-07, 1987-07, #### [facility] CLIA [id number] [address] [place], [place] [id number] [place] [facility] No Panel Informationon 12-21 Interpretation and review of laboratory results Normal [facility] RHEUMATOID FACTORon 12-22-19 24 Rheumatoid factor Qn NINF [facility] Rheumatoid fact SerPl-aCncon 12-22-2023 Rheumatoid factor Qn [IU]/mL Normal <16 [facility] Comment on above: Order Comment: Speci men Type: BLOOD SPECIMEN Ordering Facility: [facility] Address: [address] [place] [address] Performed By: #### 1 5, 1987-07, #### [facility] CLIA [id number] [address] [place] [address] OF [facility] cCP IgG SerPl-aCncon 024 Cyclic citrullinated peptide IgG Qn <15 Normal <20 [facility] Comment on above: Order Comment: Corina pratt Type: BLOOD SPECIMEN Ordering Facility: [facility] Address: [address] [place] [address] Performed By: #### 1 1571-07, 1987-07, #### [facility] CLIA [id number] [address] [place] [address] OF [facility] No Panel Informationon 11-09 No obstruction. Norm al study. Report Dictated on Electronically Signed By: Byron Curtis MD Electronically Signed Date/Time: 11/10/2023 4:24 PM [facility] Patient Name: MARCELINO ARAIZA : [...] partial obstruction, over twenty minutes definite obstruction). [facility] Byron Curtis MD - 11/10/2023 Patient [...] Electronically Signed Date/Time: 11/10/2023 4:24 PM EDT [employer] Radiology Study observation (narrative) [employer] No Panel InformationOrdered By: Byron Curtis on 11-10-2023 [employer] Work Phone: CBC W Auto Differential pane l (Bld)on 10-18-2023 Basophils (Bld) [#/Vol] 0.1 10*3/uL 0.0 - 0.2 10*3/uL [employer] Basophils/100 WBC (Bld) 1.1 % 0.0 - 2.0 % [employer] Eosinophils (Bld) [#/Vol] 0.1 10*3/uL 0.0 - 0.5 10*3/uL [facility] Eosinophils/100 WBC (Bld) 1.9 % 0.0 - 6.0 % [facility] Erythrocyte distribution width (RBC) [Ratio] 12.1 % 11.5 - 15.0 % [facility] Hematocrit (Bld) [Volume fraction] 42.1 % 35.0 - 47.0 % [facility] Hemoglobin (Bld) [Mass/Vol] 14.5 g/dL 11.7 - 16.0 g/dL [facility] Immature granulocytes (Bld) [#/Vol] 0.0 10*3/uL NINF - 0.1 10*3/uL [facility] Immature granulocytes/100 WBC (Bld) 0.3 % 0.0 - 2.0 % [facility] Interpretation and review of laboratory results Normal [facility] Lymphocytes (Bld) [#/Vol] 1.4 10*3/uL 1.0 - 4.3 10*3/uL [facility] Lymphocytes/100 WBC (Bld) 22.0 % 15.0 - 45.0 % [facility] MCH (RBC) [Entitic mass] 31.0 pg 26.0 - 34.0 pg [facility] MCHC (RBC) [Mass/Vol] 34.4 % 30.5 - 36.0 % [facility] MCV (RBC) [Entitic vol] 90.0 fL 77.0 - 99.0 fL [facility] Monocytes (Bld) [#/Vol] 0.5 10*3/uL 0.0 - 0.9 10*3/uL [facility] Monocytes/100 WBC (Bld) 7.6 % 5.0 - 13.0 % [facility] Neutrophils (Bld) [#/Vol] 4.3 10*3/uL 1.8 - 7.5 10*3/uL [facility] Neutrophils/100 WBC (Bld) 67.1 % 38.0 - 82.0 % [facility] Nucleated RBC/100 WBC (Bld) [Ratio] 0.0 % [facility] Platelet mean volume (Bld) [Entitic vol] 9.6 fL 9.0 - 12.7 fL [facility] Comment on above: MPV is a calculated measurement using platelet volume ratio Platelets (Bld) [#/Vol] 271 10*3/uL 140 - 440 10*3/uL [facility] [employer] RBC (Bld) [#/Vol] 4.68 10*6/uL 3.80 - 5.20 10*6/uL [facility] [employer] WBC (Bld) [#/Vol] 6.5 10*3/uL 3.6 - 10.7 10*3/uL [facility] CT Abdomen WO contraston 1. No acute abdomino pelvic process identified. 2. No evidence of hydronephrosis or nephrolithiasis. Report Dictated on Electronically Signed By: Jamie Waldrop MD Electronically Signed Date/Time: 10/18/2023 3:19 PM [facility] Patient Name: MARCELINO ARAIZA : 1975 [id number] Exam Date/Time: 10/18/2023 14:40 Procedure: CT ABDOMEN [...] changes of the lumbar spine are observed. [facility] Jamie Waldrop MD - 10/18/2023 [...] Electronically Signed Date/Time: 10/18/2023 3:19 PM EDT [facility] Radiology Study observation (narrative) [facility] CT Abdomen WO contrastOrdere d By: Jamie Waldrop on 10-18-2023 [facility] Work Phone: Comprehensive metabolic 1998 panelon 10-18-2023 Albumin [Mass/Vol] 4.4 g/dL 3.5 - 5.0 g/dL [facility] ALP [Catalytic activity/Vol] 77 U/L 38 - 126 U/L [facility] ALT [Catalytic activity/Vol] 17 U/L 0 - 34 U/L [facility] Anion gap [Moles/Vol] 8 mmol/L 3 - 13 mmol/L [facility] AST [Catalytic activity/Vol] 24 U/L 15 - 46 U/L [facility] Bilirubin [Mass/Vol] 0.5 mg/dL 0.2 - 1 .3 mg/dL [facility] Calcium [Mass/Vol] 9.2 mg/dL 8.4 - 10. 4 mg/dL [facility] Chloride [Moles/Vol] 103 mmol/L 98 - 10 7 mmol/L [facility] CO2 [Moles/Vol] 25 mmol/L 22 - 30 mmol/L [facility] Creatinine [Mass/Vol] 0.77 mg/dL 0.52 - 1.04 mg/dL [facility] GFR/1.73 sq M.predicted MDRD (S/P/Bld) [Vol rate/Area] - PINF [facility] Comment on above: Calculation based on the Chronic Kidney Disease Epidemiology Collaboration (CKD-EPI) equation refit without adjustment for race Glucose [Mass/Vol] 94 mg/dL 70 - 100 mg/dL [facility] Interpretation and review of laboratory results Normal [facility] Potassium [Moles/Vol] 3.7 mmol/L 3.5 - 5.1 mmol/L [facility] Protein [Mass/Vol] 7.5 g/dL 6.3 - 8.2 g/dL [facility] Sodium [Moles/Vol] 136 mmol/L 135 - 145 mmol/L [facility] Urea nitrogen [Mass/Vol] 12 mg/dL 7 - 17 mg/dL [facility] Laboratory - Chemistry and C hemistry - challengeon 10-18-2023 HCG.beta subunit Qn Females <=5 mIU/mL [facility] No Panel Informationon 10-17 Values in should [...] or monitor tumors or gestational trophoblastic disease. [facility] Urinalysis complete panel (U )Ordered By: Misael Miramontes on 10-18-2023 Bacteria LM.HPF (Urine sed) [#/Area] Few Abnormal Negative /HPF [facility] Bilirubin Ql (U) Negative Negative mg/dL [facility] Clarity (U) Clear Clear [facility] Color (U) Colorless Lt. Yellow [facility] Epithelial cells.squamous LM.HPF (Urine sed) [#/Area] 0-2 [facility] Glucose Ql (U) Normal Normal (<70) mg/dL [facility] Hemoglobin Ql (U) 0.03 mg/dL Abnormal Negative [facility] Interpretation and review of laboratory results Abnormal [facility] Ketones (U) [Mass/Vol] Negative Negat aurelia mg/dL [facility] Leukocyte esterase Test strip Ql (U) Negative Negative Eve/uL [facility] Nitrite Ql (U) Negative Negative [facility] pH (U) 5.5 [pH] 5.0 - 8.0 pH [facility] Protein (U) [Mass/Vol] Negative Negat aurelia mg/dL [facility] RBC LM.HPF (Urine sed) [#/Area] Negative [facility] Specific gravity (U) [Rel density] 1.008 1.005 - 1.030 [facility] Urobilinogen (U) [Mass/Vol] Normal Normal (0-1) mg/dL [facility] Volume, Urine 8-12 mL [facility] WBC LM.HPF (Urine sed) [#/Area] Negative [facility] Urinalysis complete panel (U )Ordered By: Jermaine Smallwood on 10-15-2023 Bacteria LM.HPF (Urine sed) [#/Area] Few Abnormal Negative /HPF [facility] Bilirubin Ql (U) Negative Negative mg/dL [facility] Clarity (U) Clear Clear [facility] Color (U) Light Yellow Lt. Yellow [facility] Epithelial cells.squamous LM.HPF (Urine sed) [#/Area] 3-5 [facility] Glucose Ql (U) Normal Normal (<70) mg/dL [facility] Hemoglobin Ql (U) 0.03 mg/dL Abnormal Negative [facility] Interpretation and review of laboratory results Abnormal [facility] Ketones (U) [Mass/Vol] Negative Negat aurelia mg/dL [facility] Leukocyte esterase Test strip Ql (U) Negative Negative Eve/uL [facility] Mucus LM.HPF (Urine sed) [#/Area] Moderate Abnormal Negative /LPF [facility] Nitrite Ql (U) Negative Negative [facility] pH (U) 6.5 [pH] 5.0 - 8.0 pH [facility] Protein (U) [Mass/Vol] Negative Negat aurelia mg/dL [facility] RBC LM.HPF (Urine sed) [#/Area] 3-5 Abnormal [facility] Specific gravity (U) [Rel density] 1.022 1.005 - 1.030 [facility] Urobilinogen (U) [Mass/Vol] Normal Normal (0-1) mg/dL [facility] WBC LM.HPF (Urine sed) [#/Area] 0-2 [facility] Cervical or vaginal specimen microscopic examination by liquid based cytology (reportOrdered By: Denise Duff on 07-14-2023 Cytology report Cyto stain.thin prep Doc (Cvx/Vag) Comment . [facility] Comment on above: Criteria not met, HP V Genotype not performed.Performed at: - [facility] [id number] Director: Alysa Angela MD, Phone: [phone] at: [facility] [id number] [place], [place] [id number] Director: Gerald Rios MD, Phone: [phone] at: = - [facility] [id number] Director: Alysa Angela MD, Phone: [phone] Cervical or vagninal specime n microscopic examination by cytology stain (reported asOrdered By: Denise Duff on 07-14-2023 Cytology report Cyto stain Doc (Cvx/Vag) Comment . [facility] Comment on above: The Pap smear is a s creening test designed to aid in thedetection of premalignant and malignant conditions of theuterine cervix. It is not a diagnostic procedure andshould not be used as the sole means of detecting cervicalcancer. Both false-positive and false-negative reports dooccur. Culture, urineOrdered By: Josie Duff on 07-14-2023 Bacteria identified Cx Nom (U) Culture exhibits no growth. [facility] Detection in cervical specim en of any of human papilloma virus (HPV) 16, 18, 31, 33,Ordered By: Denise Duff on 07-14-2023 HPV 16+18+31+33+35+39+45+5 1+52+56+58+59+66+68 DNA Probe+sig amp Ql (Cvx) Negative Negative [facility] Comment on above: This nucleic acid am plification test detects fourteen high- risk HPV types (16,18,31,33,35,39,45,51,52,56,58,59,66,68)without differentiation. Laboratory - Chemistry and C hemistry - challengeon 07-14-2023 Bilirubin Ql (U) Negative [facility] Glucose Ql (U) Negative [facility] Ketones Ql (U) Negative [facility] pH (U) 5.0 [pH] [facility] Specific gravity (U) [Rel density] 1.030 [facility] Urobilinogen (U) [Mass/Vol] Negative [facility] Laboratory - CytologyOrdered By: Denise Duff on 07-14-2023 Absorption Operator Cyto stain Nom (Cvx/Vag) [ID] Comment . [facility] Comment on above: Kerry Farias, [employer] hnologist (ASCP) Pathologist Cyto stain Nom (Cvx/Vag) [ID] Comment . [facility] Comment on above: Rich Gutiérrez MD, Pa thologist Recommended follow-up Cyto stain Nom (Cvx/Vag) Comment . [facility] Comment on above: Suggest follow up as clinically appropriate. Laboratory - Hematology and Cell countson 07-14-2023 Hemoglobin Ql (U) Small [facility] Laboratory - Miscellaneous t estsOrdered By: Denise Duff on 07-14-2023 Service comment (Unsp spec) [Interp] . . [facility] Laboratory - Specimen inform ationon 07-14-2023 Clarity (U) Cloudy [facility] Color (U) HAMLET [facility] Laboratory - Urinalysison Nitrite Ql (U) Negative [facility] Protein Ql (U) Negative [facility] No Panel InformationOrdered By: Denise Duff on 07-14-2023 Pathology report final diagnosis Narrative Comment . [facility] Comment on above: R87.610 No Panel Informationon 07-13 Urine Leukocytes Positive [facility] Urine Non-Hemolyzed Blood [facility] Thin prep Papanicolaou smear with manual screeningOrdered By: Denise Duff on 07-14-2023 Thin prep Papanicolaou smear with manual screening Comment . [facility] Comment on above: EPITHELIAL CELL ABNO RMALITY.ATYPICAL SQUAMOUS CELLS OF UNDETERMINED SIGNIFICANCE (ASC-US). This liquid based Th inPrep(R) pap test was screened withthe use of an image guided system. CT UROGRAM /W IVCONon 04-1 CT UROGRAM WO/W IVCON * * *Final Report* * * DATE OF EXAM: Jul 09 2023 2:21PM [facility] 0560 - CT UROGRAM WO/W [...] gross obstructive uropathy, or suspicious renal lesion. 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 Transcribe Date/Time: Jul 13 2023 8:16A Dictated by : RACHEL BLEVINS MD This examination was interpreted and the report reviewed and electronically signed by: RACHEL BLEVINS MD on Jul 13 2023 8:26AM EST [id number] Normal [facility] CNOVon 07-08-2023 CNOV Office Visit (UROLMN ) MARCELINO ARAIZA ([id number]) 1975 F Date Time Provider Department 07/08/23 9:00 AM MARIA ELENA CARVAJAL During your visit today, we recorded the following information about you: Pulse Blood pressure Weight Height 97/minute 134/79 108 kg 1.727 m Ileana Cherry MA 07/08/2023 8:58 AM Signed Post Void Residual done on patient with 0 cc residual volume remaining. notified. SHADIA Springer Monika, APRN.[facility] 07/08/2023 11:59 AM Signed Referring Provider: Chief [...] Negative per patient report. She presented to [facility] ED on 07/04/23 with clot hematuria, left [...] identified an (more content not included)... Normal [facility] CYTOLOGY NON-GYNon CASE REPORT Normal [facility] Comment on above: Order Comment: Corina pratt Type: BLOOD SPECIMEN Ordering Facility: [facility] Address: [address] [place] [address] Result Comment: [facility] Cytology Report Case: [id number] Authorizing Provider: Maria Elena Carvajal, Collected: 07/08/2023 07:50 AM GOAL UMPIRE.SONOGRAPHER Ordering Location: Urology Received: 07/09/2023 07:50 AM Pathologist: Carmelita Menjivar MD Specimen: Urine (Nonspecific) Performed By: #### 1 1572-5, 1987-07, 31678-1 #### [facility] CLIA [id number] [address] [place], [place] [address] [place] [address] [place] CLINICAL HISTORY gross hematuria Normal [facility] Comment on above: Order Comment: Speci men Type: BLOOD SPECIMEN Ordering Facility: [facility] Address: [address] [place] [address] Performed By: #### 1 1571-07, 1987-07, #### [facility] CLIA [id number] [address] [place] [address] [place] FINAL DIAGNOSIS Normal [facility] Comment on above: Order Comment: Speci men Type: BLOOD SPECIMEN Ordering Facility: [facility] Address: [address] [place] [address] Result Comment: A - Urine (Nonspecific), Urine Negative for high-grade urothelial carcinoma. Blood., Fungal organisms morphologically consistent with Elvira species. Performed By: #### 1 1571-07, 1987-07, #### [facility] CLIA [id number] [address] [place] [address] [place] FINAL PERFORMING LAB Normal [facility] Comment on above: Order Comment: Speci men Type: BLOOD SPECIMEN Ordering Facility: [facility] Address: [address] [place] [address] Result Comment: Tech nical component, hide tanner screening performed at [facility], [address] [place] [address] CLIA# [id number] Diagnostic interpretation performed at [facility], [address] [place], [place] [id number] CLIA# [id number] District Leader: Edson Parker M.D. Performed By: #### 1 1571-07, 1987-07, #### [facility] CLIA [id number] [address] [place] [address] [place] GROSS DESCRIPTION Normal [facility] Comment on above: Order Comment: Speci men Type: BLOOD SPECIMEN Ordering Facility: [facility] Address: [address] [place] [address] Result Comment: A. U rine (Nonspecific) 40 cc clear yellow fluid. ThinPrep prepared. Performed By: #### 1 1571-07, #### [facility] CLIA [id number] [address] [place] [address] [place] URINALYSIS, REFLEX MICROSCOP ICon 07-08-2023 Bilirubin Ql (U) Negative Negative [facility] Clarity (Unsp spec) Clear Clear [facility] Color (U) Yellow Yellow [facility] Epithelial cells LM.HPF (Urine sed) [#/Area] Few [facility] Glucose Test strip (U) [Mass/Vol] Negative Trace, Negative [facility] Hemoglobin Ql (U) 3+ Abnormal Negative, Trace [facility] Ketones Ql (U) Negative Negative, Trace [facility] Leukocyte esterase Test strip Ql (U) Negative Negative, 25 Eve/uL [facility] Nitrite Ql (U) Negative Negative [facility] pH (U) 6.0 [pH] 5.0 - 8.0 [facility] Protein (U) [Mass/Vol] Negative Trace , Negative [facility] RBC LM.HPF (Urine sed) [#/Area] /[HPF] Abnormal 0-3 /HPF [facility] Specific gravity (U) [Rel density] 1.018 1.005 - 1.030 [facility] Urobilinogen Ql (U) Normal Normal [facility] WBC LM.HPF (Urine sed) [#/Area] 0-5 /HPF 0-5 /HPF [facility] Bilirubin Ql (U) Negative Normal Negative [facility] Comment on above: Order Comment: Speci men Type: BLOOD SPECIMEN Ordering Facility: [facility] Address: [address] [place] [address] Performed By: #### 1 1571-07, #### [facility] CLIA [id number] [address] [place] [address] [place] Clarity (Unsp spec) Clear Normal Clear [facility] Comment on above: Order Comment: Speci men Type: BLOOD SPECIMEN Ordering Facility: [facility] Address: [address] [place] [address] Performed By: #### 1 1571-07, #### [facility] CLIA [id number] [address] [place] [address] [place] Color (U) Yellow Normal Yellow [facility] Comment on above: Order Comment: Speci men Type: BLOOD SPECIMEN Ordering Facility: [facility] Address: [address] [place] [address] Performed By: #### 1 1571-07, 1987-07, #### [facility] CLIA [id number] [address] [place] [address] [place] Epithelial cells LM.HPF (Urine sed) [#/Area] Few Normal [facility] Comment on above: Order Comment: Speci men Type: BLOOD SPECIMEN Ordering Facility: [facility] Address: [address] [place] [address] Performed By: #### 1 1571-07, 1987-07, #### [facility] CLIA [id number] [address] [place] [address] [place] Glucose Test strip (U) [Mass/Vol] Negative Normal Trace, Negative [facility] Comment on above: Order Comment: Speci men Type: BLOOD SPECIMEN Ordering Facility: [facility] Address: [address] [place] [address] Performed By: #### 1 1571-07, 1987-07, #### [facility] CLIA [id number] [address] [place] [address] [place] Hemoglobin Ql (U) 3+ Abnormal Negative, Trace [facility] Comment on above: Order Comment: Speci men Type: BLOOD SPECIMEN Ordering Facility: [facility] Address: [address] [place] [address] Performed By: #### 1 1571-07, 1987-07, #### [facility] CLIA [id number] [address] [place] [address] [place] Ketones Ql (U) Negative Normal Negative, Trace [facility] Comment on above: Order Comment: Speci men Type: BLOOD SPECIMEN Ordering Facility: [facility] Address: [address] [place] [address] Performed By: #### 1 1571-07, 1987-07, #### [facility] CLIA [id number] [address] [place] [address] [place] Leukocyte esterase Test strip Ql (U) Negative Normal Negative, 25 Eve/uL [facility] Comment on above: Order Comment: Speci men Type: BLOOD SPECIMEN Ordering Facility: [facility] Address: [address] [place] [address] Performed By: #### 1 1571-07, 1987-07, #### [facility] CLIA [id number] [address] [place] [address] [place] Nitrite Ql (U) Negative Normal Negative [facility] Comment on above: Order Comment: Speci men Type: BLOOD SPECIMEN Ordering Facility: [facility] Address: [address] [place] [address] Performed By: #### 1 1571-07, 1987-07, #### [facility] CLIA [id number] [address] [place] [address] [place] pH (U) 6.0 [pH] Normal 5.0-8.0 [facility] Comment on above: Order Comment: Speci men Type: BLOOD SPECIMEN Ordering Facility: [facility] Address: [address] [place] [address] Performed By: #### 1 1571-07, 1987-07, #### [facility] CLIA [id number] [address] [place] [address] [place] Protein (U) [Mass/Vol] Negative Normal Trace , Negative [facility] Comment on above: Order Comment: Speci men Type: BLOOD SPECIMEN Ordering Facility: [facility] Address: [address] [place] [address] Performed By: #### 1 1571-07, 1987-07, #### [facility] CLIA [id number] [address] [place] [address] [place] RBC LM.HPF (Urine sed) [#/Area] /[HPF] Abnormal 0-3 /HPF [facility] Comment on above: Order Comment: Speci men Type: BLOOD SPECIMEN Ordering Facility: [facility] Address: [address] [place] [address] Performed By: #### 1 1571-07, 1987-07, #### [facility] CLIA [id number] [address] [place] [address] [place] Specific gravity (U) [Rel density] 1.018 Normal 1.005-1.03 0 [facility] Comment on above: Order Comment: Speci men Type: BLOOD SPECIMEN Ordering Facility: [facility] Address: [address] [place] [address] Performed By: #### 1 1571-07, 1987-07, #### [facility] CLIA [id number] [address] [place] [address] [place] Urobilinogen Ql (U) Normal Normal Normal [facility] Comment on above: Order Comment: Speci men Type: BLOOD SPECIMEN Ordering Facility: [facility] Address: [address] [place] [address] Performed By: #### 1 1571-07, 1987-07, #### [facility] CLIA [id number] [address] [place], [place] [id number] [place] WBC LM.HPF (Urine sed) [#/Area] 0-5 /HPF Normal 0-5 /HPF [facility] Comment on above: Order Comment: Speci men Type: BLOOD SPECIMEN Ordering Facility: [facility] Address: [address] [place] [address] Performed By: #### 1 1571-07, 1987-07, 43718-0 #### [facility] CLIA [id number] [address] [place] [address] [place] Basophil percentageOrdered B y: Ashley Fair on 07-05-2023 Hemoglobin (Bld) [Mass/Vol] 11.7 g/dL 12.0-15.0 [facility] Hematocrit Auto (Bld) [Volum e fraction]Ordered By: Ashley Fair on 07-05-2023 Hematocrit (Bld) [Volume fraction] 34.6 % 37-47 [facility] Absolute lymphocyte countOrd ered By: Cirilo Garcias on 07-04-2023 Lymphocytes Auto (Unsp spec) [#/Vol] 1.90 10*3/uL 0.83-4.51 [facility] Automated lymphocyte count a s percentage of total leukocytesOrdered By: Cirilo Garcias on 07-04-2023 Lymphocytes/100 WBC Auto (Unsp spec) 29.8 % 19-41 [facility] Basophil percentageOrdered B y: Cirilo Garcias on 07-04-2023 Basophils/100 WBC (Bld) 1.1 % 0-1 [facility] Chloride [Moles/Vol] 108 mmol/L 98-107 [facility] Eosinophils/100 WBC (Bld) 4.9 % 0-5 [facility] Glucose [Mass/Vol] 88 mg/dL 74-106 [facility] Hemoglobin (Bld) [Mass/Vol] 13.0 g/dL 12.0-15.0 [facility] Monocytes/100 WBC (Bld) 5.8 % 0-10 [facility] Neutrophils (Bld) [#/Vol] 3.7 10*3/uL 2.0-7.7 [facility] Neutrophils/100 WBC (Bld) 58.2 % 47-70 [facility] Potassium [Moles/Vol] 4.2 mmol/L 3.5-5.1 [facility] Sodium [Moles/Vol] 138 mmol/L 136-145 [facility] WBC (Bld) [#/Vol] 6.4 10*3/uL 4.4-11.0 [facility] Basophil percentage 0 SEEN /hpf 0-5 [facility] Bilirubin Test strip Ql (U)O rdered By: Cirilo Garcias on 07-04-2023 Bilirubin Ql (U) Negative Negative [facility] Determination of erythrocyte mean corpuscular volume (MCV)Ordered By: Cirilo Garcias on 07-04-2023 MCV (RBC) [Entitic vol] 92.6 fL 81-99 [facility] Erythrocyte distribution wid th ratioOrdered By: Cirilo Garcias on 07-04-2023 Erythrocyte distribution width (RBC) [Ratio] 13.0 % 11.6-14.6 [facility] Erythrocyte distribution wid th standard deviationOrdered By: Cirilo Garcias on 07-04-2023 Erythrocyte distribution width (RBC) [Entitic vol] 43.7 fL 35.1-43.9 [facility] Hematocrit Auto (Bld) [Volum e fraction]Ordered By: Cirilo Garcias on 07-04-2023 Hematocrit (Bld) [Volume fraction] 39.0 % 37-47 [facility] Immature granulocytes/100 WB C Auto (Bld)Ordered By: Cirilo Garcias on 07-04-2023 Immature granulocytes/100 WBC (Bld) 0.200 % 0.0-0.9 [facility] Comment on above: IG% - Immature Granu locytes (promyelocytes, myelocytes and metamyelocytes) > 1% indicates that a LEFT SHIFT is Present. Ketones Test strip Ql (U)Ord ered By: Cirilo Garcias on 07-04-2023 Ketones Ql (U) Negative Negative [facility] Laboratory - Chemistry and C hemistry - challengeOrdered By: Cirilo Garcias on 07-04-2023 CO2 [Moles/Vol] 24.0 mmol/L 21.0-32.0 [facility] Urea nitrogen/Creatinine [Mass ratio] 21.9 mg/mg 10-20 [facility] HCG ( test) Ql (U) Negative [facility] Comment on above: Very dilute urine sp ecimens, as indicated by a low specificgravity, may not contain senior outside sales representative levels of hCG. If is still suspected, a first morning urinespecimen should be collected 48 hours later and tested. Laboratory - Hematology and Cell countsOrdered By: Cirilo Garcias on 07-04-2023 MCH (RBC) [Entitic mass] 30.9 pg 27.0-32.0 [facility] MCHC (RBC) [Mass/Vol] 33.3 g/dL 32-36 [facility] Nucleated RBC/100 WBC (Bld) [Ratio] 0 % 0-5 [facility] Platelet mean volume (Bld) [Entitic vol] 9.7 fL 6.2-12.0 [facility] Platelets (Bld) [#/Vol] 282 10*3/uL 150-450 [facility] Mucus LM Ql (Urine sed)Order ed By: Cirilo Garcias on 07-04-2023 Mucus Ql (Urine sed) 0 SEEN /hpf [facility] Nitrite Test strip Ql (U)Ord ered By: Cirilo Garcias on 07-04-2023 Nitrite Ql (U) Negative Negative [facility] No Panel InformationOrdered By: Cirilo Garcias on 07-04-2023 Estimated Creatinine Clearance Calc 124.56 ml/min [facility] Estimated GFR (MDRD) Amer 110 mL/min >60 [facility] Comment on above: GFR Calc Estimated GFR (MDRD) Non-Af Amer 91 mL/min >60 [facility] Comment on above: Non- GFR Calc Urine RBC > 100 SEEN /hpf 0-5 [facility] Protein Test strip Ql (U)Ord ered By: Cirilo Garcias on 07-04-2023 Protein Ql (U) 500 mg/dl Negative [facility] RBC Auto (Bld) [#/Vol]Ordere d By: Cirilo Garcias on 07-04-2023 RBC (Bld) [#/Vol] 4.21 10*6/uL 4.2-5.4 [facility] Serum or plasma calcium patrizia urement (mass/volume)Ordered By: Cirilo Garcias on 07-04-2023 Calcium [Mass/Vol] 8.8 mg/dL 8.5-10.1 [facility] Serum or plasma creatinine m easurement (mass/volume)Ordered By: Cirilo Garcias on 07-04-2023 Creatinine [Mass/Vol] 0.73 mg/dL 0.55-1.02 [facility] Comment on above: The validity of the calculated GFR & GFRAA in patients over 70 years has not been determined. Clinical correlation is essential. Serum or plasma urea nitroge n measurement (mass/volume)Ordered By: Cirilo Garcias on 07-04-2023 Urea nitrogen [Mass/Vol] 16 mg/dL 7-18 [facility] Squamous epithelial cells de tection in urine sediment by light microscopyOrdered By: Cirilo Garcias on 07-04-2023 Epithelial cells.squamous LM Ql (Urine sed) 0 SEEN /hpf 5-10 [facility] Thin prep Papanicolaou smear with manual screeningOrdered By: Cirilo Garcias on 07-04-2023 Thin prep Papanicolaou smear with manual screening 6 5-15 [facility] Urine blood detectionOrdered By: Cirilo Garcias on 07-04-2023 RBC Ql (U) 250 /ul Negative [facility] Urine clarityOrdered By: Justin Garcias on 07-04-2023 Clarity (U) Turbid Clear [facility] Urine color determinationOrd ered By: Cirilo Garcias on 07-04-2023 Color (U) Red Yellow [facility] Urine glucose detectionOrder ed By: Cirilo Garcias on 07-04-2023 Glucose Ql (U) Normal mg/dl Normal [facility] Urine leukocyte esterase det ection by dipstickOrdered By: Cirilo Garcias on 07-04-2023 Leukocyte esterase Test strip Ql (U) Negative Negative [facility] Urine pHOrdered By: Cirilo barr on 07-04-2023 pH (U) 5.0 [pH] 5.0 - 8.0 [facility] Urine sediment bacteria coun t by microscopy (number/high power field)Ordered By: Cirilo Garcias on 07-04-2023 Bacteria LM.HPF (Urine sed) [#/Area] 0 /[HPF] None Seen [facility] Urine specific gravity measu rementOrdered By: Cirilo Garcias on 07-04-2023 Specific gravity (U) [Rel density] 1.030 1.002-1.03 0 [facility] Urine urobilinogen measureme ntOrdered By: Cirilo Garcias on 07-04-2023 Urobilinogen Ql (U) 1 mg/dl Normal [facility] Thin prep Papanicolaou smear with manual screeningOrdered By: Tanna Nava on 06-30-2023 Thin prep Papanicolaou smear with manual screening 283.6 ng/mL 0.0-101.8 [facility] Comment on above: Chromogranin A perfo rmed by [employer] KRYPTORmethodologyValues obtained with different assay methods or kits cannotbe used interchangeably.Performed at: [address] [id number] Director: Thai Maddox MD, Phone: [phone] Laboratory - Chemistry and C hemistry - challengeOrdered By: Ashley Fair on 06-10-2023 HCG ( test) Ql (U) Negative [facility] Comment on above: Very dilute urine sp ecimens, as indicated by a low specificgravity, may not contain senior outside sales representative levels of hCG. If is still suspected, a first morning urinespecimen should be collected 48 hours later and tested. Activated partial thrombopla stin time (aPTT) in platelet poor plasma by coagulation aOrdered By: Santana Crespo on 06-04-2023 aPTT Coag (PPP) [Time] 31.0 s 24.1-36.2 [facility] Basophil percentageOrdered B y: Santana Crespo on 06-04-2023 Bilirubin [Mass/Vol] 0.30 mg/dL 0.20-1.00 [facility] Comment on above: For patients on eltr ombopag therapy, use of Dimension [place] TBIL is not recommended. Protein [Mass/Vol] 7.1 g/dL 6.4-8.2 [facility] Direct bilirubinOrdered By: Santana Crespo on 06-04-2023 Bilirubin.direct [Mass/Vol] 0.11 mg/dL 0.00-0.30 [facility] Laboratory - Chemistry and C hemistry - challengeOrdered By: Santana Crespo on 06-04-2023 ALP [Catalytic activity/Vol] 76 U/L 45-117 [facility] ALT [Catalytic activity/Vol] 21 U/L 13-56 [facility] Globulin (S) [Mass/Vol] 3.5 g/dL 2.2-4.2 [facility] Laboratory - CoagulationOrde red By: Santana Crespo on 06-04-2023 INR Coag (Bld) [Relative time] 1.1 {INR} [facility] PT Coag (PPP) [Time] 13.7 s 11.7-14.9 [facility] Thin prep Papanicolaou smear with manual screeningOrdered By: Santana Crespo on 06-04-2023 Thin prep Papanicolaou smear with manual screening 3.6 g/dL 3.2-5.0 [facility] Thin prep Papanicolaou smear with manual screening 22 U/L 15-37 [facility] Clostridioides difficile nuc leic acid assay by PCROrdered By: Tanna Nava on 05-05-2023 C. difficile DNA MARELY+probe Ql (Unsp spec) [facility] No Panel InformationOrdered By: Tanna Nava on 05-05-2023 Stool Calprotectin 119 ug/g 0-120 [facility] Comment on above: Concentration Interp retation Follow-Up< 5 - 50 ug/g Normal None>50 -120 ug/g Borderline Re-evaluate in 4-6 weeks >120 ug/g Abnormal Repeat as clinically indicatedPerformed at: [facility] [address] [id number] Director: Christian Crowell PhD, Phone: [phone] at: [facility] [facility] [address] [id number] Director: Thai Maddox MD, Phone: [phone] Stool Neutral Fats Normal . [facility] Comment on above: Normal (<60 Droplets /HPF) Giardia Antigen (WILTON) [facility] Immunoglobulin E 34 IU/mL 6-495 [facility] Immunoglobulin M 131 mg/dL 26-217 [facility] Ova and parasitesOrdered By: Tanna Nava on 05-05-2023 Ova and parasites identified LM Nom (Unsp spec) [facility] Qualitative fecal fat or lip idsOrdered By: Tanna Nava on 05-05-2023 Fat Ql (Stl) Increased . [facility] Comment on above: Normal (<100 Droplet s/HPF) Serum or plasma IgA measurem ent (mass/volume)Ordered By: Tanna Nava on 05-05-2023 IgA [Mass/Vol] 131 mg/dL 87-352 [facility] Serum or plasma IgG measurem ent (mass/volume)Ordered By: Tanna Nava on 05-05-2023 IgG [Mass/Vol] 1246 mg/dL 586-1602 [facility] Stool enteric pathogen panel by probe and target amplification methodOrdered By: Tanna Nava on 05-05-2023 Gastrointestinal pathogens panel MARELY+probe (Stl) [facility] Stool gastrointestinal hemog lobin detection by immunologic methodOrdered By: Tanna Nava on 05-05-2023 Lower GI hemoglobin IA Ql (Stl) [facility] Stool lactoferrin detection by immunoassayOrdered By: Tanna Nava on 05-05-2023 Lactoferrin IA Ql (Stl) [facility] Stool pancreatic elastase me asurement (mass/mass)Ordered By: Tanna Nava on 05-05-2023 Elastase.pancreatic (Stl) [Mass/Mass] 133 >200 [facility] Comment on above: Result Units: ug Joya st./g Severe Pancreatic Insufficiency: <100 Moderate Pancreatic Insufficiency: 100 - 200 Normal: >200Performed at: [facility] [id number] Director: Thai Maddox MD, Phone: [phone] Thin prep Papanicolaou smear with manual screeningOrdered By: Tanna Nava on 05-05-2023 Thin prep Papanicolaou smear with manual screening 647.1 ng/mL 0.0-101.8 [facility] Comment on above: Chromogranin A perfo rmed by [employer] KRYPTORmethodologyValues obtained with different assay methods or kits cannotbe used interchangeably.Performed at: [facility] [id number] Director: Christian Crowell PhD, Phone: [phone] at: [facility] [id number] Director: Thai Maddox MD, Phone: [phone] Absolute lymphocyte countOrd ered By: ED PROVIDER on 04-21-2023 Lymphocytes Auto (Unsp spec) [#/Vol] 2.73 10*3/uL 0.83-4.51 [facility] Automated lymphocyte count a s percentage of total leukocytesOrdered By: ED PROVIDER on 04-21-2023 Lymphocytes/100 WBC Auto (Unsp spec) 29.7 % 19-41 [facility] Basophil percentageOrdered B y: Wagner Reynolds on 04-21-2023 Basophil percentage 0 SEEN /hpf 0-5 [facility] Basophil percentageOrdered B y: ED PROVIDER on 04-21-2023 Basophils/100 WBC (Bld) 1.3 % 0-1 [facility] Chloride [Moles/Vol] 108 mmol/L 98-107 [facility] Eosinophils/100 WBC (Bld) 3.7 % 0-5 [facility] Glucose [Mass/Vol] 152 mg/dL 74-106 [facility] Comment on above: Fasting Glucose resu lt greater than or equal to 126 mg/dL suggests DIABETES MELLITUS per A.D.A. criteria. Hemoglobin (Bld) [Mass/Vol] 14.8 g/dL 12.0-15.0 [facility] Monocytes/100 WBC (Bld) 4.9 % 0-10 [facility] Neutrophils (Bld) [#/Vol] 5.5 10*3/uL 2.0-7.7 [facility] Neutrophils/100 WBC (Bld) 60.3 % 47-70 [facility] Potassium [Moles/Vol] 4.0 mmol/L 3.5-5.1 [facility] Comment on above: Slight Hemolysis, Re sult may be falsely increased. Sodium [Moles/Vol] 134 mmol/L 136-145 [facility] WBC (Bld) [#/Vol] 9.2 10*3/uL 4.4-11.0 [facility] Bilirubin Test strip Ql (U)O rdered By: ED PROVIDER on 04-21-2023 Bilirubin Ql (U) Negative Negative [facility] Determination of erythrocyte mean corpuscular volume (MCV)Ordered By: ED PROVIDER on 04-21-2023 MCV (RBC) [Entitic vol] 90.2 fL 81-99 [facility] Erythrocyte distribution wid th ratioOrdered By: ED PROVIDER on 04-21-2023 Erythrocyte distribution width (RBC) [Ratio] 12.4 % 11.6-14.6 [facility] Erythrocyte distribution wid th standard deviationOrdered By: ED PROVIDER on 04-21-2023 Erythrocyte distribution width (RBC) [Entitic vol] 41.1 fL 35.1-43.9 [facility] Hematocrit Auto (Bld) [Volum e fraction]Ordered By: ED PROVIDER on 04-21-2023 Hematocrit (Bld) [Volume fraction] 44.1 % 37-47 [facility] Immature granulocytes/100 WB C Auto (Bld)Ordered By: ED PROVIDER on 04-21-2023 Immature granulocytes/100 WBC (Bld) 0.100 % 0.0-0.9 [facility] Comment on above: IG% - Immature Granu locytes (promyelocytes, myelocytes and metamyelocytes) > 1% indicates that a LEFT SHIFT is Present. Ketones Test strip Ql (U)Ord ered By: ED PROVIDER on 04-21-2023 Ketones Ql (U) Negative Negative [facility] Laboratory - Chemistry and C hemistry - challengeOrdered By: ED PROVIDER on 04-21-2023 CO2 [Moles/Vol] 21.0 mmol/L 21.0-32.0 [facility] Urea nitrogen/Creatinine [Mass ratio] 20.0 mg/mg 10-20 [facility] Laboratory - Hematology and Cell countsOrdered By: ED PROVIDER on 04-21-2023 MCH (RBC) [Entitic mass] 30.3 pg 27.0-32.0 [facility] MCHC (RBC) [Mass/Vol] 33.6 g/dL 32-36 [facility] Nucleated RBC/100 WBC (Bld) [Ratio] 0 % 0-5 [facility] Platelets (Bld) [#/Vol] 353 10*3/uL 150-450 [facility] Mucus LM Ql (Urine sed)Order ed By: Wagner Reynolds on 04-21-2023 Mucus Ql (Urine sed) 0 SEEN /hpf [facility] Nitrite Test strip Ql (U)Ord ered By: ED PROVIDER on 04-21-2023 Nitrite Ql (U) Negative Negative [facility] No Panel InformationOrdered By: Wagner Reynolds on 04-21-2023 Urine RBC 0-5 SEEN /hpf 0-5 [facility] No Panel InformationOrdered By: ED PROVIDER on 04-21-2023 Estimated GFR (MDRD) Amer 87 mL/min >60 [facility] Comment on above: GFR Calc Estimated GFR (MDRD) Non-Af Amer 72 mL/min >60 [facility] Comment on above: Non- GFR Calc Platelet mean volume Jonathan-Ec ker (Bld) [Entitic vol]Ordered By: ED PROVIDER on 04-21-2023 Platelet mean volume (Bld) [Entitic vol] 9.9 fL 6.2-12.0 [facility] Protein Test strip Ql (U)Ord ered By: ED PROVIDER on 04-21-2023 Protein Ql (U) Negative Negative [facility] RBC Auto (Bld) [#/Vol]Ordere d By: ED PROVIDER on 04-21-2023 RBC (Bld) [#/Vol] 4.89 10*6/uL 4.2-5.4 [facility] Serum or plasma calcium patrizia urement (mass/volume)Ordered By: ED PROVIDER on 04-21-2023 Calcium [Mass/Vol] 9.1 mg/dL 8.5-10.1 [facility] Serum or plasma choriogonado tropin detectionOrdered By: ED PROVIDER on 04-21-2023 HCG ( test) Ql Negative [facility] Serum or plasma creatinine m easurement (mass/volume)Ordered By: ED PROVIDER on 04-21-2023 Creatinine [Mass/Vol] 0.90 mg/dL 0.55-1.02 [facility] Comment on above: The validity of the calculated GFR & GFRAA in patients over 70 years has not been determined. Clinical correlation is essential. Serum or plasma urea nitroge n measurement (mass/volume)Ordered By: ED PROVIDER on 04-21-2023 Urea nitrogen [Mass/Vol] 18 mg/dL 7-18 [facility] Squamous epithelial cells de tection in urine sediment by light microscopyOrdered By: Wagner Reynolds on 04-21-2023 Epithelial cells.squamous LM Ql (Urine sed) 0-5 SEEN /hpf 5-10 [facility] Thin prep Papanicolaou smear with manual screeningOrdered By: ED PROVIDER on 04-21-2023 Thin prep Papanicolaou smear with manual screening 5 5-15 [facility] Urine blood detectionOrdered By: ED PROVIDER on 04-21-2023 RBC Ql (U) 10 /ul Negative [facility] Urine clarityOrdered By: ED PROVIDER on 04-21-2023 Clarity (U) Clear Clear [facility] Urine color determinationOrd ered By: ED PROVIDER on 04-21-2023 Color (U) Yellow Yellow [facility] Urine glucose detectionOrder ed By: ED PROVIDER on 04-21-2023 Glucose Ql (U) Normal mg/dl Normal [facility] Urine leukocyte esterase det ection by dipstickOrdered By: ED PROVIDER on 04-21-2023 Leukocyte esterase Test strip Ql (U) Negative Negative [facility] Urine pHOrdered By: ED PROVI MIKEL on 04-21-2023 pH (U) 6.0 [pH] 5.0 - 8.0 [facility] Urine sediment bacteria coun t by microscopy (number/high power field)Ordered By: Wagner Reyonlds on 04-21-2023 Bacteria LM.HPF (Urine sed) [#/Area] RARE /hpf None Seen [facility] Urine specific gravity measu rementOrdered By: ED PROVIDER on 04-21-2023 Specific gravity (U) [Rel density] 1.010 1.002-1.03 0 [facility] Urine urobilinogen measureme ntOrdered By: ED PROVIDER on 04-21-2023 Urobilinogen Ql (U) Normal mg/dl Normal [facility] Wills's yeast IgE serumOrde red By: Edgar Coffey on 04-09-2023 Wills's yeast IgE Qn (S) <0.10 kU/L Class 0 [facility] Comment on above: Performed at: [address] [id number] Director: Thai Maddox MD, Phone: [phone] Laboratory - Miscellaneous t estsOrdered By: Edgar Coffey on 04-09-2023 Service comment (Unsp spec) [Interp] Comment . [facility] Comment on above: Levels of Specific I [...] 04-09-2023 Scallop Allergen <0.10 kU/L Class 0 [facility] Sesame Seed Allergen IgE Antibody <0.10 kU/L Class 0 [facility] Shrimp Allergen <0.10 kU/L Class 0 [facility] Serum black walnut IgE antib lucas assay (units/volume)Ordered By: Edgar Coffey on 04-09-2023 [place] IgE Qn (S) <0.10 kU/L Class 0 [facility] Serum clam IgE antibody assa y (units/volume)Ordered By: Edgar Coffey on 04-09-2023 Clam IgE Qn (S) <0.10 kU/L Class 0 [facility] Serum codfish IgE antibody a ssay (units/volume)Ordered By: Edgar Coffey on 04-09-2023 Codfish IgE Qn (S) <0.10 kU/L Class 0 [facility] Serum corn IgE antibody assa y (units/volume)Ordered By: Edgar Coffey on 04-09-2023 Combs IgE Qn (S) <0.10 kU/L Class 0 [facility] Serum cow milk IgE antibody assay (units/volume)Ordered By: Edgar Coffey on 04-09-2023 Cow milk IgE Qn (S) <0.10 kU/L Class 0 [facility] Cow milk IgE Qn (S) Not Reportable W [facility] Serum crab IgE antibody assa y (units/volume)Ordered By: Edgar Coffey on 04-09-2023 Crab IgE Qn (S) <0.10 kU/L Class 0 [facility] Serum egg white IgE antibody assay (units/volume)Ordered By: Edgar Coffey on 04-09-2023 Egg white IgE Qn (S) <0.10 kU/L Class 0 [facility] Serum gluten IgE antibody as say (units/volume)Ordered By: Edgar Coffey on 04-09-2023 Gluten IgE Qn (S) <0.10 kU/L Class 0 [facility] Serum lobster IgE antibody a ssay (units/volume)Ordered By: Edgar Coffey on 04-09-2023 Lobster IgE Qn (S) <0.10 kU/L Class 0 [facility] Serum peanut IgE antibody as say (units/volume)Ordered By: Edgar Coffey on 04-09-2023 Peanut IgE Qn (S) <0.10 kU/L Class 0 [facility] Serum salmon IgE antibody as say (units/volume)Ordered By: Edgar Coffey on 04-09-2023 Monon IgE Qn (S) <0.10 kU/L Class 0 [facility] Serum soybean IgE antibody a ssay (units/volume)Ordered By: Edgar Coffey on 04-09-2023 Soybean IgE Qn (S) <0.10 kU/L Class 0 [facility] Serum tuna IgE antibody assa y (units/volume)Ordered By: Edgar Coffey on 04-09-2023 Tuna IgE Qn (S) <0.10 kU/L Class 0 [facility] Serum wheat IgE antibody ass ay (units/volume)Ordered By: Edgar Coffey on 04-09-2023 Wheat IgE Qn (S) <0.10 kU/L Class 0 [facility] NM Stomach Views for gastric emptying solid phase W radionuclide Loraine 11-20-2022 Abnormally delayed gastric emptying following solid meal. Report Dictated on Electronically Signed By: Tonio Arciniega MD Electronically Signed Date/Time: 11/20/2022 10:34 AM [facility] [employer] RADIOLOGY SYSTEM Patient Name: MARCELINO ARAIZA : 1975 Exam Date/Time: 11/20/2022 10:23 Procedure: NM GASTRIC EMPTYING SOLID Ordering Provider: FRIEND, TANNA Reason For Exam: K58.9 SOLID PHASE [...] ingestion is between 19 and 52 percent. [facility] Tonio Arciniega MD - 11/20/2022 Patient Name: MARCELINO ARAIZA : 1975 Exam Date/Time: 11/20/2022 10:23 Procedure: NM GASTRIC EMPTYING SOLID Ordering Provider: ANEL, TANNA Reason For Exam: K58.9 SOLID PHASE [...] Electronically Signed Date/Time: 11/20/2022 10:34 AM EDT [facility] Radiology Study observation (narrative) [facility] [employer] Stomach Views for gastric emptying solid phase W radionuclide POOrdered By: Tonio Arciniega on 11-20-2022 [employer] Work Phone: House Account Tracking (Ques t)on 11-11-2022 Tracking House Account [facility] [employer] Comment on above: We were unable to id entify an account number for the order submitted. If you do not have a [employer] account number or if your account information needs to be updated please call [phone] ([phone]) for assistance. To prevent delays in testing and processing of your orders please provide the following information for this order and with every additional order submitted: [facility] account number and account name Client address Client phone and fax number NPI number of ordering physician along with the physician name. [facility] Hm Pap Smearon 10-30-2022 Interpretation and review of laboratory results Abnormal [facility] PAP IG HPV APTIMA 16 /18,45 on 07-16-2022 ADEQ Comment Normal . [facility] Comment on above: Order Comment: Specimen Comment: [id number] Comment: Source.............[employer] ecimen Comment: No. of containers..01 ThinPrep Vial Result Comment: Satisfactory for evaluation. No endocervical component is identified. Performed By: #### [id number] ####[facility] [address] [place], [place], [id number] COMM . Normal . [facility] Comment on above: Order Comment: Specimen Comment: [id number] Comment: Source.............[employer] ecimen Comment: No. of containers..01 ThinPrep Vial Performed By: #### [id number] ####[facility] [address] [place], [place], [id number] COMMENT Comment Normal . [facility] Comment on above: Order Comment: Specimen Comment: [id number] Comment: Source.............[employer] ecimen Comment: No. of containers..01 ThinPrep Vial Result Comment: This liquid based ThinPrep(R) pap test was screened with the use of an image guided system. Performed By: #### [id number] ####[facility] [address] [place], [place], [id number] DIAG Comment Abnormal . [facility] Comment on above: Order Comment: Specimen Comment: [id number] Comment: Source.............[employer] ecimen Comment: No. of containers..01 ThinPrep Vial Result Comment: EPITHELIAL CELL ABNORMALITY. LOW GRADE SQUAMOUS INTRAEPITHELIAL LESION (LSIL). Performed By: #### [id number] ####[facility] [address] [place], [place], [id number] HPV APTIMA, HR Negative Normal Negative [facility] Comment on above: Order Comment: Specimen Comment: [id number] Comment: Source.............CervixSp ecimen Comment: No. of containers..01 ThinPrep Vial Result Comment: This nucleic acid amplification test detects fourteen high- risk HPV types (16,18,31,33,35,39,45,51,52 ,56,58,59,66,68) without differentiation. Performed By: #### [id number] ####[facility] [address] [facility] [address] [place], [place], [id number] HPV Kate Rfx Comment Normal . [facility] Comment on above: Order Comment: Specimen Comment: [id number] Comment: Source.............CervixSp ecimen Comment: No. of containers..01 ThinPrep Vial Result Comment: Criteria not met, HPV Genotype not performed. Performed at: - [address] [id number] Printing Manager: Alysa Angela MD, Phone: [phone] Performed at: [facility] - [facility] Cyto Histo [address] [place] [id number] Printing Manager: Gerald Rios MD, Phone: [phone] Performed at: = - [address], [place] [id number] Printing Manager: Alysa Angela MD, Phone: [phone] Performed By: #### [id number] ####[facility] [address] [facility] [place], [place], [address] PAPSMR Comment Normal . [facility] Comment on above: Order Comment: Specimen Comment: [id number] Comment: Source.............CervixSp ecimen Comment: No. of containers..01 ThinPrep Vial Result Comment: The Pap smear is a screening test designed to aid in the detection of premalignant and malignant conditions of the uterine cervix. It is not a diagnostic procedure and should not be used as the sole means of detecting cervical cancer. Both false-positive and false-negative reports do occur. Performed By: #### [id number] ####[facility] [address] [facility] [address] [place], [place], [id number] Path.prov.IDC-9 Comment Normal . [facility] Comment on above: Order Comment: Specimen Comment: [id number] Comment: Source.............CervixSp ecimen Comment: No. of containers..01 ThinPrep Vial Result Comment: R87.612 Performed By: #### [id number] ####[facility] [address] [facility] [place], [place], [id number] PERFORM Comment Normal . [facility] Comment on above: Order Comment: Specimen Comment: [id number] Comment: Source.............CervixSp ecimen Comment: No. of containers..01 ThinPrep Vial Result Comment: Justin Delgado Clark Driver (ASCP) Performed By: #### [id number] ####[facility] [address] [facility] [address] [place], [place], [id number] RECOMM Comment Abnormal . [facility] Comment on above: Order Comment: Specimen Comment: [id number] Comment: Source.............CervixSp ecimen Comment: No. of containers..01 ThinPrep Vial Result Comment: Suggest follow up as clinically appropriate. Performed By: #### [id number] ####[facility] [address] [place], [place], [id number] SIGN Comment Normal . [facility] (more content not included)... [facility] - Chemistry and C hemistry - challengeon 08-20-2022 HCG ( test) Ql (U) Negative [facility] No Panel InformationOrdered By: Sveta Cline on 07-13-2022 Bordatella pertussis DNA (MARELY) [facility] Bordatella pertussis DNA (MARELY) [facility] Bordetella pertussis IgM ant ibody assayOrdered By: Sveta Cline on 07-10-2022 B. pertussis IgM IA Qn (S) < 1.0 index 0.0-0.9 [facility] Comment on above: Negative <1.0 Border line 1.0 - 1.1 Positive >1.1 No Panel InformationOrdered By: Sveta Cline on 07-10-2022 Bordetella pertussis IgG Antibody 3.46 index 0.00-0.94 [facility] Comment on above: Negative <0.95 Equiv ocal 0.95 - 1.04 Positive >1.04 Serum Bordetella pertussis I gA antibody assay (units/volume)Ordered By: Sveta Cline on 07-10-2022 B. pertussis IgA Qn (S) 2.3 index 0.0-0.9 [facility] Comment on above: Negative <1.0 Border line 1.0 - 1.1 Positive >1.1Performed at: [facility] [address] [id number] Director: hTai Maddox MD, Phone: [phone] Cervical or vagninal specime n microscopic examination by cytology stain (reported asOrdered By: Jacqueline Martinez on 07-08-2022 Cytology report Cyto stain Doc (Cvx/Vag) Comment . [facility] Comment on above: The Pap smear is [...] DNA Probe+sig amp Ql (Cvx) Negative Negative [facility] Comment on above: This nucleic acid am plification test detects fourteen high- risk HPV types (16,18,31,33,35,39,45,51,52,56,58,59,66,68)without differentiation. Laboratory - CytologyOrdered By: Jacqueline Martinez on 07-08-2022 Absorption Operator Cyto stain Nom (Cvx/Vag) [ID] Comment . [facility] Comment on above: Jerry Rodriguez totechnologist (ASCP) Pathologist Cyto stain Nom (Cvx/Vag) [ID] Comment . [facility] Comment on above: Alysa Angela MD, Pathologist Recommended follow-up Cyto stain Nom (Cvx/Vag) Comment . [facility] Comment on above: Suggest follow up as clinically appropriate. Laboratory - Miscellaneous t estsOrdered By: Jacqueline Martinez on 07-08-2022 Service comment (Unsp spec) [Interp] Comment . [facility] Comment on above: This liquid based Th inPrep(R) pap test was screened withthe use of an image guided system. Service comment (Unsp spec) [Interp] . . [facility] Liquid-based cerv Pap + CT/G C by MARELY w reflex to high-risk HPV for ASCUSOrdered By: Jacqueline Martinez on 07-08-2022 Cytology report Cyto stain.thin prep Doc (Cvx/Vag) Comment . [facility] Comment on above: Criteria not met, HP V Genotype not performed.Performed at: WB - [address] [id number] Director: Alysa Angela MD, Phone: [phone] at: [facility] [address] [place], [place] [id number] Director: Gerald Rios MD, Phone: [phone] at: =G - [facility] [address] [place] [id number] Director: Alysa Angela MD, Phone: [phone] No Panel InformationOrdered By: Jacqueline Martinez on 07-08-2022 Pathology report final diagnosis Narrative Comment . [facility] Comment on above: EPITHELIAL CELL ABNO RMALITY.LOW GRADE SQUAMOUS INTRAEPITHELIAL LESION (LSIL). R87.612 Influenza virus A and B and SARS-CoV-2 (COVID-19) Ag panel - Upper respiratory specimOrdered By: Dr. Doe on 06-16-2022 SARS-CoV-2 (COVID-19) RNA MARELY+probe Ql (Resp) [facility] Influenza virus A and B and SARS-CoV-2 (COVID-19) Ag panel - Upper respiratory specimOrdered By: Landon Doe on 06-15-2022 SARS-CoV-2 (COVID-19) RNA MARELY+probe Ql (Resp) [facility] No Panel InformationOrdered By: Nadia Bolanos on 06-15-2022 D-Dimer Quantitative (PE/DVT) 0.42 FEU/ug/m 0.27-0.49 [facility] Comment on above: NORMAL D-Dimer level (<0.50) indicates no DVT or PE. No Panel Informationon 06-15 [facility] XR CHEST 2V FRONTAL/LATon [facility] XR Chest PA and Lateralon IMPRESSION: No acute radiographic abnormality. Automotive Service Cashier: [facility] Transcribe Date/Time: Jun 15 2022 11:42A Dictated by : KRISTAN KING MD This examination was interpreted and the report reviewed and electronically signed by: KRISTAN KING MD on Jun 15 2022 11:42AM [facility] DIVISION OF RADIOLOGY * * *Final [...] soft tissues: Unremarkable. DIVISION OF RADIOLOGY Provider, Radha Sandra [facility] - 06/15/2022 * * *Final Report* [...] Unremarkable. IMPRESSION IMPRESSION: No acute radiographic abnormality. Automotive Service Cashier: FILI Transcribe Date/Time: Jun 15 2022 11:42A Dictated by : KRISTAN KING MD This examination was interpreted and the report reviewed and electronically signed by: KRISTAN KING MD on Jun 15 2022 11:42AM EST [facility] Radiology Study observation (narrative) [facility] XR Chest PA and LateralOrder ed By: Ccf Provider on 06-15-2022 [facility] Thin prep Papanicolaou smear with manual screeningOrdered By: Jacqueline Martinez on 06-06-2022 Genital Culture G. vaginalis (Presumptive) [facility] Culture, urineOrdered By: Dony Martinez on 06-05-2022 Bacteria identified Cx Nom (U) Positive [facility] Gram stain for investigation of transfusion reactionOrdered By: Jacqueline Martinez on 06-04-2022 Microscopic observation Gram stain Nom (Unsp spec) [facility] Chlamydia trachomatis rRNA d etection by probe and target amplification methodOrdered By: Jacqueline Martinez on 06-03-2022 C. trachomatis rRNA MARELY+probe Ql (Unsp spec) Negative Negative [facility] Laboratory - Chemistry and C hemistry - challengeon 06-03-2022 Bilirubin Ql (U) Negative [facility] Glucose Ql (U) Negative [facility] Ketones Ql (U) Negative [facility] pH (U) 5.0 [pH] [facility] Specific gravity (U) [Rel density] 1.030 [facility] Urobilinogen (U) [Mass/Vol] Negative [facility] Laboratory - Hematology and Cell countson 06-03-2022 Hemoglobin Ql (U) Moderate [facility] Laboratory - Microbiology an d Antimicrobial susceptibilityOrdered By: Jacqueline Martinez on 06-03-2022 N. gonorrhoeae DNA MARELY+probe Ql (Unsp spec) Negative Negative [facility] Comment on above: Performed at: =[address] [id number] Director: Alysa Angela MD, Phone: [phone] Laboratory - Specimen inform ationon 06-03-2022 Clarity (U) Clear [facility] Color (U) Yellow [facility] Laboratory - Urinalysison Nitrite Ql (U) Negative [facility] Protein Ql (U) Negative [facility] No Panel Informationon 06-03 POC Bacterial Vaginitis (Rapid) Positive [facility] POC Trichomonas (Rapid) Negative [facility] Urine Leukocytes Negatve [facility] Urine Non-Hemolyzed Blood [facility] Whole blood hemoglobin A1c/t otal hemoglobin ratio (mass fraction)Ordered By: Dr. Hickman on 05-20-2022 HbA1c (Bld) [Mass fraction] 5.1 % 3.8-5.6 [facility] Comment on above: Normal < 5.7 % Predi abetic 5.7 - 6.4 % Diabetic >or= 6.5 % Please note range changes. UA DIP, URINE (POC)on 2021 BILIRUBIN UA (POCT) Negative Negative [facility] CLARITY UA (POCT) Clear [facility] COLOR UA (POCT) Yellow [facility] GLUCOSE UA (POCT) Negative Negative mg/dL [facility] HEMOGLOBIN/BLOOD UA (POCT) Moderate Abnormal Negative [facility] KETONE UA (POCT) Trace Negative mg/dL [facility] LEUKOCYTES UA (POCT) Negative [facility] NITRITE UA (POCT) Negative Negative [facility] PH UA (POCT) 5.5 4.5 - 8.0 [facility] Protein Ql (U) Negative Negative mg/dL [facility] SPECIFIC GRAVITY UA (POCT) 1.025 1.005 - 1.030 [facility] UROBILINOGEN UA (POCT) 0.2 E.U./dL Claudia l E.U./dL [facility] Absolute lymphocyte counton 10-31-2021 Lymphocytes Auto (Unsp spec) [#/Vol] 1.79 10*3/uL 0.83-4.51 [facility] Work Phone: Basophil percentageon 2021 Basophils/100 WBC (Bld) 1.6 % 0-1 [facility] Work Phone: Bilirubin [Mass/Vol] 0.30 mg/dL 0.20-1.00 [facility] Work Phone: Comment on above: For patients on eltr ombopag therapy, use of Dimension [place] TBIL is not recommended. Chloride [Moles/Vol] 107 mmol/L 98-107 [facility] Work Phone: Eosinophils/100 WBC (Bld) 4.3 % 0-5 [facility] Work Phone: Glucose [Mass/Vol] 109 mg/dL 74-106 [facility] Work Phone: Comment on above: Fasting Glucose resu lt from 100 to 125 mg/dL suggests IMPAIRED HOMEOSTASIS per A.D.A. criteria. Neutrophils (Bld) [#/Vol] 3.7 10*3/uL 2.0-7.7 [facility] Work Phone: Neutrophils/100 WBC (Bld) 59.4 % 47-70 [facility] Work Phone: [phone] Potassium [Moles/Vol] 4.1 mmol/L 3.5-5.1 [facility] Work Phone: Protein [Mass/Vol] 7.3 g/dL 6.4-8.2 [facility]: Sodium [Moles/Vol] 140 mmol/L 136-145 [facility] Work Phone: WBC (Bld) [#/Vol] 6.3 10*3/uL 4.4-11.0 [facility] Work Phone: Blood erythrocytes count (nu mber/volume)on 10-31-2021 RBC (Bld) [#/Vol] 4.43 10*6/uL 4.2-5.4 [facility] Phone: Blood hemoglobin measurement (mass/volume)on 10-31-2021 Hemoglobin (Bld) [Mass/Vol] 13.8 g/dL 12.0-15.0 [facility] Work Phone: Blood lymphocytes/100 leukoc yteson 10-31-2021 Lymphocytes/100 WBC (Bld) 28.6 % 19-41 [facility] Work Phone: Blood monocytes/100 leukocyt eson 10-31-2021 Monocytes/100 WBC (Bld) 5.9 % 0-10 [facility] Work Phone: Blood platelet mean volumeon 10-31-2021 Platelet mean volume (Bld) [Entitic vol] 9.6 fL 6.2-12.0 [facility] Work Phone: Determination of erythrocyte mean corpuscular volume (MCV)on 10-31-2021 MCV (RBC) [Entitic vol] 91.2 fL 81-99 [facility] Work Phone: Hematocrit Auto (Bld) [Volum e fraction]on 10-31-2021 Hematocrit (Bld) [Volume fraction] 40.4 % 37-47 [facility] Work Phone: Laboratory - Chemistry and C hemistry - challengeon 08-05-2022 ALP [Catalytic activity/Vol] 75 U/L 45-117 [facility] Work Phone: ALT [Catalytic activity/Vol] 21 U/L 13-56 [facility] Work Phone: CO2 [Moles/Vol] 29.0 mmol/L 21.0-32.0 [facility] Work Phone: Globulin (S) [Mass/Vol] 3.6 g/dL 2.2-4.2 [facility] Work Phone: Urea nitrogen/Creatinine [Mass ratio] 18.6 mg/mg 10-20 [facility] Work Phone: Laboratory - Hematology and Cell countson 10-31-2021 Erythrocyte distribution width (RBC) [Entitic vol] 40.5 fL 35.1-43.9 [facility] Work Phone: Erythrocyte distribution width (RBC) [Ratio] 12.2 % 11.6-14.6 [facility] Work Phone: Immature granulocytes/100 WBC (Bld) 0.200 % 0.0-0.9 [facility] Work Phone: Comment on above: IG% - Immature Granu locytes (promyelocytes, myelocytes and metamyelocytes) > 1% indicates that a LEFT SHIFT is Present. MCH (RBC) [Entitic mass] 31.2 pg 27.0-32.0 [facility] Work Phone: Nucleated RBC/100 WBC (Bld) [Ratio] 0 % 0-5 [facility] Work Phone: MCHC Auto (RBC) [Mass/Vol]on 10-31-2021 MCHC (RBC) [Mass/Vol] 34.2 g/dL 32-36 [facility] Work Phone: No Panel Informationon 10-31 Estimated GFR (MDRD) Amer 99 mL/min >60 [facility] Work Phone: Comment on above: GFR Calc Estimated GFR (MDRD) Non-Af Amer 82 mL/min >60 [facility] Work Phone: Comment on above: Non- GFR Calc Vitamin D 25-Hydroxy 39.8 ng/mL [facility] Work Phone: Comment on above: Vitamin D 25(OH) Sta tus Range Deficiency <20 ng/mL (50nmol/L) Insufficiency 20 - 30 ng/mL (50 - 75 nmol/L) Sufficiency 30 - 100 ng/mL (75 - 250 nmol/L) Toxicity >100 ng/mL (>250 nmol/L) Platelets bldon 10-31-2021 Platelets (Bld) [#/Vol] 278 10*3/uL 150-450 [facility] Work Phone: Serum or plasma albumin patrizia urement (mass/volume)on 10-31-2021 Albumin [Mass/Vol] 3.7 g/dL 3.2-5.0 [facility] Work Phone: Serum or plasma albumin/glob ulin mass ratioon 10-31-2021 Albumin/Globulin [Mass ratio] 1.0 {ratio} 0.9-2.4 [facility] Work Phone: Serum or plasma calcium patrizia urement (mass/volume)on 10-31-2021 Calcium [Mass/Vol] 8.8 mg/dL 8.5-10.1 [facility] Work Phone: Serum or plasma creatinine m easurement (mass/volume)on 10-31-2021 Creatinine [Mass/Vol] 0.81 mg/dL 0.55-1.02 [facility] Work Phone: Comment on above: The validity of the calculated GFR & GFRAA in patients over 70 years has not been determined. Clinical correlation is essential. Serum or plasma urea nitroge n measurement (mass/volume)on 10-31-2021 Urea nitrogen [Mass/Vol] 15 mg/dL 7-18 [facility] Work Phone: Thin prep Papanicolaou smear with manual screeningon 10-31-2021 Thin prep Papanicolaou smear with manual screening 13 U/L 15-37 [facility] Work Phone: Thin prep Papanicolaou smear with manual screening 4 5-15 [facility] Work Phone: Laboratory - Microbiology an d Antimicrobial susceptibilityon 09-07-2021 SARS-CoV-2 (COVID-19) RNA MARELY+probe Ql (Unsp spec) Not detected [facility] Work Phone: No Panel Informationon 09-07 Influenza Types A,B Rapid (Clinic) Not detected [facility] Work Phone: Absolute lymphocyte counton 07-10-2021 Lymphocytes Auto (Unsp spec) [#/Vol] 1.93 10*3/uL 0.83-4.51 [facility] Work Phone: Basophil percentageon 2021 Basophils/100 WBC (Bld) 1.2 % 0-1 [facility] Work Phone: [phone] Eosinophils/100 WBC (Bld) 1.7 % 0-5 [facility] Work Phone: [phone] Neutrophils (Bld) [#/Vol] 3.9 10*3/uL 2.0-7.7 [facility] Work Phone: [phone] Neutrophils/100 WBC (Bld) 60.3 % 47-70 [facility] Work Phone: WBC (Bld) [#/Vol] 6.4 10*3/uL 4.4-11.0 [facility] Work Phone: Blood erythrocytes count (nu mber/volume)on 07-10-2021 RBC (Bld) [#/Vol] 4.51 10*6/uL 4.2-5.4 [facility] Work Phone: [phone] Blood hemoglobin measurement (mass/volume)on 07-10-2021 Hemoglobin (Bld) [Mass/Vol] 13.7 g/dL 12.0-15.0 [facility] Work Phone: [phone] Blood lymphocytes/100 leukoc yteson 07-10-2021 Lymphocytes/100 WBC (Bld) 30.0 % 19-41 [facility] Work Phone: Blood monocytes/100 leukocyt eson 07-10-2021 Monocytes/100 WBC (Bld) 6.5 % 0-10 [facility] Work Phone: Blood platelet mean volumeon 07-10-2021 Platelet mean volume (Bld) [Entitic vol] 10.0 fL 6.2-12.0 [facility] Work Phone: Determination of erythrocyte mean corpuscular volume (MCV)on 07-10-2021 MCV (RBC) [Entitic vol] 89.8 fL 81-99 [facility] Work Phone: Hematocrit Auto (Bld) [Volum e fraction]on 07-10-2021 Hematocrit (Bld) [Volume fraction] 40.5 % 37-47 [facility] Work Phone: Laboratory - Hematology and Cell countson 07-10-2021 Erythrocyte distribution width (RBC) [Entitic vol] 40.0 fL 35.1-43.9 [facility] Work Phone: Erythrocyte distribution width (RBC) [Ratio] 12.1 % 11.6-14.6 [facility] Work Phone: Immature granulocytes/100 WBC (Bld) 0.300 % 0.0-0.9 [facility] Work Phone: Comment on above: IG% - Immature Granu locytes (promyelocytes, myelocytes and metamyelocytes) > 1% indicates that a LEFT SHIFT is Present. MCH (RBC) [Entitic mass] 30.4 pg 27.0-32.0 [facility] Work Phone: Nucleated RBC/100 WBC (Bld) [Ratio] 0 % 0-5 [facility] Work Phone: MCHC Auto (RBC) [Mass/Vol]on 07-10-2021 MCHC (RBC) [Mass/Vol] 33.8 g/dL 32-36 [facility] Work Phone: No Panel Informationon 07-10 Thyroid Stimulating Hormone (TSH) 1.66 uIU/mL 0.358-3.74 [facility] Work Phone: Platelets bldon 07-10-2021 Platelets (Bld) [#/Vol] 295 10*3/uL 150-450 [facility] Work Phone: Hm Colonoscopyon 11-07-2020 CONVERTED SURGICAL [...] in three cassettes. Gross examination performed at [facility], [address] [place] [address] 11/07/2020 10:52:00 PM COPATHPLUS CONVERTED CLINICAL HISTORY Z80.0, LMP: N/A A: R/O CELIAC B: R/O H. PYLORI D: R/O MICROSCOPIC COLITIS COPATHPLUS CONVERTED SPECIMENS RANDOM DUODENUM, BIOPSY GASTRIC, BIOPSY RANDOM TERMINAL ILEUM, BIOPSY COLON, BIOPSY COPATHPLUS CONVERTED COMPLETE REPORT Specimen originated from [facility] Specimen #: [id number] Submitting Physician: SADA SNYDER MD, MPH FINAL [...] in three cassettes. Gross examination performed at [facility], [address] [place] [address] [facility] 11/07/2020 10:52:00 PM Date of Report: 11/11/2020 Date of Procedure: 11/07/2020 Date of Receipt: 11/07/2020 Submitted by: SADA SNYDER MD, MPH Location: L010 Diagnostic interpretation performed at [facility], [facility] [place] [address]. [place] Number: [id number] COPATHPLUS CONVERTED ORDERING PROVIDER Ordering Provider: SADA [...] EDT) Lab Result (more content not included)... Business Combined XR Chest PA and Lateralon IMPRESSION: No acute cardiopulmonary process. 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 Transcribe Date/Time: Feb 05 2020 12:13P Dictated by : AURE MACKAY MD This examination was interpreted and the report reviewed and electronically signed by: AURE MACKAY MD on Feb 05 2020 12:15PM [facility] DIVISION OF RADIOLOGY * * *Final [...] are intact DIVISION OF RADIOLOGY Provider, Valentino [facility] - 02/05/2020 * * *Final Report* [...] intact IMPRESSION IMPRESSION: No acute cardiopulmonary process. 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 Transcribe Date/Time: Feb 05 2020 12:13P Dictated by : AURE MACKAY MD This examination was interpreted and the report reviewed and electronically signed by: AURE MACKAY MD on Feb 05 2020 12:15PM EST [facility] Radiology Study observation (narrative) [facility] XR Chest PA and LateralOrder ed By: Ccf Provider on 02-05-2020 [facility] Vital Signs Date Time Vital Sign Value Performing Clinician Facility 08-30-2024 09:56-0400 Body height 172.72 cm Ashley MONTANOC Work Phone: [facility] 08-30-2024 09:56-0400 Body mass index (BMI) [Ratio] 36.8 kg/m2 Ashley Gomez MACHINE TOOL DESIGNER-C Work Phone: [facility] 08-30-2024 09:56-0400 Body weight 109.93 kg Ashley Gomez MACHINE TOOL DESIGNER-C Work Phone: [facility] 08-30-2024 09:56-0400 Diastolic blood pressure 61 mm[Hg] Ashley Gomez MACHINE TOOL DESIGNER-C Work Phone: [facility] 08-30-2024 09:56-0400 Systolic blood pressure 97 mm[Hg] Ashley Gomez MACHINE TOOL DESIGNER-C Work Phone: [facility] 05-17-2024 09:30-0500 Diastolic blood pressure 72 mm[Hg] Ashley Gomez GOAL UMPIRE - SONOGRAPHER Work Phone: [facility] [employer] 05-17-2024 09:30-0500 Systolic blood pressure 136 mm[Hg] Ashley Gomez GOAL UMPIRE - SONOGRAPHER Work Phone: [facility] [employer] 05-17-2024 09:12-0500 Body height 172.7 cm Ashley Gomez GOAL UMPIRE - SONOGRAPHER Work Phone: [facility] [employer] 05-17-2024 09:12-0500 Body mass index (BMI) [Ratio] 37.5 kg/m2 Ashley Gomez GOAL UMPIRE - SONOGRAPHER Work Phone: [facility] [employer] 05-17-2024 09:12-0500 Body weight 111.86 kg Ashley Gomez GOAL UMPIRE - SONOGRAPHER Work Phone: [facility] [employer] 05-17-2024 09:12-0500 Heart rate 93 /min Ashley Gomez GOAL UMPIRE - SONOGRAPHER Work Phone: [facility] [employer] 05-17-2024 09:12-0500 SaO2% (BldA) [Mass fraction] 96 % Ashley Gomez GOAL UMPIRE - SONOGRAPHER Work Phone: [facility] [employer] 12-22-2023 09:03-0400 Body height 172.7 cm Fallon Pop MD Work Phone: [facility] 12-22-2023 09:03-0400 Body mass index (BMI) [Ratio] 37.24 kg/m2 Fallon Pop MD Work Phone: [facility] 12-22-2023 09:03-0400 Body temperature 96.6 [degF] Fallon Pop MD Work Phone: [facility] 12-22-2023 09:03-0400 Body weight 111.1 kg Fallon Pop MD Work Phone: [facility] 12-22-2023 09:03-0400 Diastolic blood pressure 75 mm[Hg] Fallon Pop MD Work Phone: [facility] 12-22-2023 09:03-0400 Heart rate 97 /min Fallon Pop MD Work Phone: [facility] 12-22-2023 09:03-0400 Systolic blood pressure 114 mm[Hg] Fallon Pop MD Work Phone: [facility] 11-10-2023 10:20-0400 Diastolic blood pressure 74 mm[Hg] Ashley Gomez GOAL UMPIRE - SONOGRAPHER Work Phone: [facility] 11-10-2023 10:20-0400 Systolic blood pressure 128 mm[Hg] Ashley Gomez GOAL UMPIRE - SONOGRAPHER Work Phone: [facility] 11-10-2023 09:55-0400 Body height 172.7 cm Ashley Gomez GOAL UMPIRE - SONOGRAPHER Work Phone: [facility] 11-10-2023 09:55-0400 Body mass index (BMI) [Ratio] 36.34 kg/m2 Ashley Gomez GOAL UMPIRE - SONOGRAPHER Work Phone: [facility] 11-10-2023 09:55-0400 Body weight 108.41 kg Ashley Gomez GOAL UMPIRE - SONOGRAPHER Work Phone: [facility] [employer] 11-10-2023 09:55-0400 Heart rate 80 /min Ashley Gomez GOAL UMPIRE - SONOGRAPHER Work Phone: [facility] [employer] 11-10-2023 09:55-0400 SaO2% (BldA) [Mass fraction] 98 % Ashley Gomez GOAL UMPIRE - SONOGRAPHER Work Phone: [facility] [employer] 10-18-2023 15:55-0400 Diastolic blood pressure 72 mm[Hg] Nahomi Bancroft DO Work Phone: [facility] [employer] 10-18-2023 15:55-0400 Heart rate 78 /min Nahomi Bancroft DO Work Phone: [facility] [employer] 10-18-2023 15:55-0400 Respiratory rate 14 /min Nahomi Bancroft DO Work Phone: [facility] [employer] 10-18-2023 15:55-0400 SaO2% (BldA) [Mass fraction] 98 % Nahomi Bancroft DO Work Phone: [facility] [employer] 10-18-2023 15:55-0400 Systolic blood pressure 119 mm[Hg] Nahomi Bancroft DO Work Phone: [facility] 10-18-2023 12:38-0400 Body mass index (BMI) [Ratio] 36.49 kg/m2 Nahomi Bancroft DO Work Phone: [facility] 10-18-2023 12:38-0400 Body temperature 98.01 [degF] Nahomi Bancroft DO Work Phone: [facility] 10-18-2023 12:38-0400 Body weight 108.86 kg Nahomi Bancroft DO Work Phone: [facility] 07-14-2023 09:43-0400 Body height 172.[address] Geeta Hickman Work Phone: [facility] 07-14-2023 09:29-0400 Body mass index (BMI) [Ratio] 36.2 kg/m2 Dr. Geeta Hickman Work Phone: [facility] 07-14-2023 09:29-0400 Body weight 108.[address] Geeta Hickman Work Phone: [facility] 07-14-2023 09:29-0400 Diastolic blood pressure 82 mm[Hg] Dr. Geeta Hickman Work Phone: [facility] 07-14-2023 09:29-0400 Systolic blood pressure 124 mm[Hg] Dr. Geeta Hickman Work Phone: [facility] 07-08-2023 08:51-0400 Body height 172.7 cm Maria Elena Alena GOAL UMPIRE.SONOGRAPHER Work Phone: [facility] 07-08-2023 08:51-0400 Body weight 108 kg Maria Elena Conninski GOAL UMPIRE.SONOGRAPHER Work Phone: [facility] 07-08-2023 08:51-0400 Diastolic blood pressure 79 mm[Hg] Maria Elena Conninski GOAL UMPIRE.SONOGRAPHER Work Phone: [facility] 07-08-2023 08:51-0400 Heart rate 97 /min Maria Elena Conninski GOAL UMPIRE.SONOGRAPHER Work Phone: [facility] 07-08-2023 08:51-0400 Systolic blood pressure 134 mm[Hg] Maria Elenadavion Conninski GOAL UMPIRE.SONOGRAPHER Work Phone: [facility] 07-05-2023 14:16-0400 Body temperature 98 [degF] Dr. Geeta Hickman Work Phone: [facility] 07-05-2023 14:16-0400 Diastolic blood pressure 82 mm[Hg] Dr. Geeta Hickman Work Phone: [facility] 07-05-2023 14:16-0400 Heart rate 77 /min Dr. Geeta Hickman Work Phone: [facility] 07-05-2023 14:16-0400 Respiratory rate 16 /min Dr. Geeta Hickman Work Phone: [facility] 07-05-2023 14:16-0400 SaO2% (BldA) [Mass fraction] 98 % Dr. Geeta Hickman Work Phone: [facility] 07-05-2023 14:16-0400 Systolic blood pressure 146 mm[Hg] Dr. Geeta Hickman Work Phone: [facility] 07-05-2023 10:57-0400 Body height 172.[address] Geeta Hickman Work Phone: [facility] 07-05-2023 10:57-0400 Body mass index (BMI) [Ratio] 35.2 kg/m2 Dr. Geeta Hickman Work Phone: [facility] 07-05-2023 10:57-0400 Body weight 105.[address] Geeta Hickman Work Phone: [facility] 07-04-2023 11:00-0400 Body temperature 97.5 [degF] Dr. Geeta Hickman Work Phone: [facility] 07-04-2023 11:00-0400 Diastolic blood pressure 57 mm[Hg] Dr. Geeta Hickman Work Phone: [facility] 07-04-2023 11:00-0400 Heart rate 88 /min Dr. Geeta Hickman Work Phone: [facility] 07-04-2023 11:00-0400 Respiratory rate 16 /min Dr. Geeta Hickman Work Phone: [facility] 07-04-2023 11:00-0400 SaO2% (BldA) [Mass fraction] 97 % Dr. Geeta Hickman Work Phone: [facility] 07-04-2023 11:00-0400 Systolic blood pressure 115 mm[Hg] Dr. Geeta Hickman Work Phone: [facility] 07-04-2023 07:28-0400 Body height 172.[address] Geeta Hickman Work Phone: [facility] 07-04-2023 07:28-0400 Body mass index (BMI) [Ratio] 36.5 kg/m2 Dr. Geeta Hickman Work Phone: [facility] 07-04-2023 07:28-0400 Body weight [address] Geeta Hickman Work Phone: [facility] 06-18-2023 09:33-0400 Body mass index (BMI) [Ratio] 37.13 kg/m2 Ashley Gomez GOAL UMPIRE - SONOGRAPHER Work Phone: [facility] 06-18-2023 09:33-0400 Body weight 110.77 kg Ashley Gomez GOAL UMPIRE - SONOGRAPHER Work Phone: [facility] 06-18-2023 09:33-0400 Diastolic blood pressure 74 mm[Hg] Ashley Gomez GOAL UMPIRE - SONOGRAPHER Work Phone: [facility] 06-18-2023 09:33-0400 Heart rate 79 /min Ashley Gomez GOAL UMPIRE - SONOGRAPHER Work Phone: [facility] 06-18-2023 09:33-0400 SaO2% (BldA) [Mass fraction] 98 % Ashley Gomez GOAL UMPIRE - SONOGRAPHER Work Phone: [facility] 06-18-2023 09:33-0400 Systolic blood pressure 118 mm[Hg] Ashley Gomez GOAL UMPIRE - SONOGRAPHER Work Phone: [facility] 06-10-2023 08:09-0400 Body temperature 97.4 [degF] Dr. Geeta Hickman Work Phone: [facility] 06-10-2023 08:09-0400 Diastolic blood pressure 83 mm[Hg] Dr. Geeta Hickman Work Phone: [facility] 06-10-2023 08:09-0400 Heart rate 76 /min Dr. Geeta Hickman Work Phone: [facility] 06-10-2023 08:09-0400 Respiratory rate 16 /min Dr. Geeta Hickman Work Phone: [facility] 06-10-2023 08:09-0400 SaO2% (BldA) [Mass fraction] 97 % Dr. Geeta Hickman Work Phone: [facility] 06-10-2023 08:09-0400 Systolic blood pressure 126 mm[Hg] Dr. Geeta Hickman Work Phone: [facility] 06-10-2023 06:25-0400 Body height 172.[address] Geeta Hickman Work Phone: [facility] 06-10-2023 06:25-0400 Body mass index (BMI) [Ratio] 37.2 kg/m2 Dr. Geeta Hickman Work Phone: [facility] 06-10-2023 06:25-0400 Body weight [address] Geeta Hickman Work Phone: [facility] 04-28-2023 10:04-0500 Body height 172.7 cm Ashley Gomez GOAL UMPIRE - SONOGRAPHER Work Phone: [facility] [employer] 04-28-2023 10:04-0500 Body mass index (BMI) [Ratio] 36.49 kg/m2 Ashely Gomez GOAL UMPIRE - SONOGRAPHER Work Phone: [facility] [employer] 04-28-2023 10:04-0500 Body weight 108.86 kg Ashley Gomez GOAL UMPIRE - SONOGRAPHER Work Phone: [facility] [employer] 04-28-2023 10:04-0500 Diastolic blood pressure 71 mm[Hg] Ashley Gomez GOAL UMPIRE - SONOGRAPHER Work Phone: [facility] [employer] 04-28-2023 10:04-0500 Heart rate 92 /min Ashley Gomez GOAL UMPIRE - SONOGRAPHER Work Phone: [facility] [employer] 04-28-2023 10:04-0500 SaO2% (BldA) [Mass fraction] 97 % Ashley Gomez GOAL UMPIRE - SONOGRAPHER Work Phone: [facility] [employer] 01-31-2024 10:04-0500 Systolic blood pressure 139 mm[Hg] Ashley Gomez GOAL UMPIRE - SONOGRAPHER Work Phone: [facility] 04-21-2023 19:18-0500 Body temperature 97.6 [degF] [facility] 04-21-2023 19:18-0500 Diastolic blood pressure 76 mm[Hg] [facility] 04-21-2023 19:18-0500 Heart rate 64 /min [facility] 04-21-2023 19:18-0500 Respiratory rate 16 /min [facility] 04-21-2023 19:18-0500 SaO2% (BldA) [Mass fraction] 99 % [facility] 04-21-2023 19:18-0500 Systolic blood pressure 134 mm[Hg] [facility] 04-21-2023 16:16-0500 Body mass index (BMI) [Ratio] 36.6 kg/m2 [facility] 04-21-2023 16:16-0500 Body weight 109.1 kg [facility] 04-21-2023 14:41-0500 Body height 172.72 cm [facility] 12-16-2022 10:39-0400 Body height 172.7 cm Ashley Gomez GOAL UMPIRE - SONOGRAPHER Work Phone: [facility] 12-16-2022 10:39-0400 Body mass index (BMI) [Ratio] 33.3 kg/m2 Ashley Gomez GOAL UMPIRE - SONOGRAPHER Work Phone: [facility] 12-16-2022 10:39-0400 Body weight 99.34 kg Ashley Gomez GOAL UMPIRE - SONOGRAPHER Work Phone: [facility] 12-16-2022 10:39-0400 Diastolic blood pressure 72 mm[Hg] Ashley Gomez GOAL UMPIRE - SONOGRAPHER Work Phone: [facility] 12-16-2022 10:39-0400 Heart rate 78 /min Ashley Gomez GOAL UMPIRE - SONOGRAPHER Work Phone: [facility] 12-16-2022 10:39-0400 SaO2% (BldA) [Mass fraction] 97 % Ashley Gomez GOAL UMPIRE - SONOGRAPHER Work Phone: [facility] [employer] 12-16-2022 10:39-0400 Systolic blood pressure 124 mm[Hg] Ashley Gomez GOAL UMPIRE - SONOGRAPHER Work Phone: [facility] [employer] 10-30-2022 07:50-0400 Body height 172.7 cm Ashley Gomez GOAL UMPIRE - SONOGRAPHER Work Phone: [facility] [employer] 10-30-2022 07:50-0400 Body mass index (BMI) [Ratio] 33.3 kg/m2 Ashley Gomez GOAL UMPIRE - SONOGRAPHER Work Phone: [facility] [employer] 10-30-2022 07:50-0400 Body weight 99.34 kg Ashley Gomez GOAL UMPIRE - SONOGRAPHER Work Phone: [facility] [employer] 10-30-2022 07:50-0400 Diastolic blood pressure 66 mm[Hg] Ashley Gomez GOAL UMPIRE - SONOGRAPHER Work Phone: [facility] [employer] 10-30-2022 07:50-0400 Heart rate 80 /min Ashley Gomez GOAL UMPIRE - SONOGRAPHER Work Phone: [facility] [employer] 10-30-2022 07:50-0400 SaO2% (BldA) [Mass fraction] 98 % Ashley Gomez GOAL UMPIRE - SONOGRAPHER Work Phone: [facility] [employer] 10-30-2022 07:50-0400 Systolic blood pressure 118 mm[Hg] Ashleyfrancisco Gomez GOAL UMPIRE - SONOGRAPHER Work Phone: [facility] 08-20-2022 13:35-0400 Body height 172.[address] Geeta Hickman Work Phone: [facility] 07-10-2022 09:05-0400 Body height 172.[address] Geeta Hickman Work Phone: [facility] 07-10-2022 09:05-0400 Body mass index (BMI) [Ratio] 36.1 kg/m2 Dr. Geeta Hickman Work Phone: [facility] 07-10-2022 09:05-0400 Body temperature 97.5 [degF] Dr. Geeta Hickman Work Phone: [facility] 07-10-2022 09:05-0400 Body weight 107.[address] Geeta Hickman Work Phone: [facility] 07-10-2022 09:05-0400 Diastolic blood pressure 82 mm[Hg] Dr. Geeta Hickman Work Phone: [facility] 07-10-2022 09:05-0400 Heart rate 86 /min Dr. Geeta Hickman Work Phone: [facility] 07-10-2022 09:05-0400 Respiratory rate 18 /min Dr. Geeta Hickman Work Phone: [facility] 07-10-2022 09:05-0400 SaO2% (BldA) [Mass fraction] 96 % Dr. Geeta Hickman Work Phone: [facility] 07-10-2022 09:05-0400 Systolic blood pressure 130 mm[Hg] Dr. Geeta Hickman Work Phone: [facility] 07-08-2022 09:26-0400 Body mass index (BMI) [Ratio] 36.8 kg/m2 Dr. Geeta Hickman Work Phone: [facility] 07-08-2022 09:26-0400 Body weight 109.[address] Geeta Hickman Work Phone: [facility] 07-08-2022 09:26-0400 Diastolic blood pressure 80 mm[Hg] Dr. Geeta Hickman Work Phone: [facility] 07-08-2022 09:26-0400 Systolic blood pressure 128 mm[Hg] Dr. Geeta Hickman Work Phone: [facility] 06-24-2022 10:06-0400 Body mass index (BMI) [Ratio] 36.5 kg/m2 Dr. Geeta Hickman Work Phone: [facility] 06-24-2022 10:06-0400 Body temperature 95.4 [degF] Dr. Geeta Hickman Work Phone: [facility] 06-24-2022 10:06-0400 Body weight 108.[address] Geeta Hickman Work Phone: [facility] 06-24-2022 10:06-0400 Diastolic blood pressure 82 mm[Hg] Dr. Geeta Hickman Work Phone: [facility] 06-24-2022 10:06-0400 Heart rate 92 /min Dr. Geeta Hickman Work Phone: [facility] 06-24-2022 10:06-0400 Respiratory rate 18 /min Dr. Geeta Hickman Work Phone: [facility] 06-24-2022 10:06-0400 SaO2% (BldA) [Mass fraction] 98 % Dr. Geeta Hickman Work Phone: [facility] 06-24-2022 10:06-0400 Systolic blood pressure 134 mm[Hg] Dr. Geeta Hickman Work Phone: [facility] 06-16-2022 01:29-0400 Heart rate 89 /min Dr. Geeta Hickman Work Phone: [facility] 06-16-2022 01:29-0400 Respiratory rate 18 /min Dr. Geeta Hickman Work Phone: [facility] 06-16-2022 01:29-0400 SaO2% (BldA) [Mass fraction] 100 % Dr. Geeta Hickman Work Phone: [facility] 06-15-2022 22:12-0400 Body height 172.[address] Geeta Hickman Work Phone: [facility] 06-15-2022 22:12-0400 Body mass index (BMI) [Ratio] 36.8 kg/m2 Dr. Geeta Hickman Work Phone: [facility] 06-15-2022 22:12-0400 Body temperature 98.8 [degF] Dr. Geeta Hickman Work Phone: [facility] 06-15-2022 22:12-0400 Body weight [address] Geeta Hickman Work Phone: [facility] 06-15-2022 22:12-0400 Diastolic blood pressure 104 mm[Hg] Dr. Geeta Hickamn Work Phone: [facility] 06-15-2022 22:12-0400 Systolic blood pressure 127 mm[Hg] Dr. Geeta Hickman Work Phone: [facility] 06-15-2022 11:05-0400 Body temperature 97.81 [degF] Nadia Bogner PA-C Work Phone: [facility] 06-15-2022 11:05-0400 Body weight 109.77 kg Nadia Bogner PA-C Work Phone: [facility] 06-15-2022 11:05-0400 Diastolic blood pressure 78 mm[Hg] Nadia Bogner PA-C Work Phone: [facility] 06-15-2022 11:05-0400 Heart rate 110 /min Nadia Bogner PA-C Work Phone: [facility] 06-15-2022 11:05-0400 Respiratory rate 20 /min Nadia Bogner PA-C Work Phone: [facility] 06-15-2022 11:05-0400 SaO2% (BldA) [Mass fraction] 96 % Nadia Bogner PA-C Work Phone: [facility] 06-15-2022 11:05-0400 Systolic blood pressure 136 mm[Hg] Nadia Bogner PA-C Work Phone: [facility] 06-09-2022 06:48-0400 Body temperature 97.6 [degF] Dr. Geeta Hickman Work Phone: [facility] 06-09-2022 06:48-0400 Diastolic blood pressure 84 mm[Hg] Dr. Geeta Hickman Work Phone: [facility] 06-09-2022 06:48-0400 Heart rate 112 /min Dr. Geeta Hickman Work Phone: [facility] 06-09-2022 06:48-0400 Respiratory rate 15 /min Dr. Geeta Hickman Work Phone: [facility] 06-09-2022 06:48-0400 SaO2% (BldA) [Mass fraction] 98 % Dr. Geeta Hickman Work Phone: [facility] 06-09-2022 06:48-0400 Systolic blood pressure 122 mm[Hg] Dr. Geeta Hickman Work Phone: [facility] 06-03-2022 15:19-0500 Body height 172.[address] Geeta Hickman Work Phone: [facility] 06-03-2022 15:19-0500 Body mass index (BMI) [Ratio] 36.2 kg/m2 Dr. Geeta Hickman Work Phone: [facility] 06-03-2022 15:19-0500 Body weight 108.[address] Geeta Hickman Work Phone: [facility] 06-03-2022 15:19-0500 Diastolic blood pressure 82 mm[Hg] Dr. Geeat Hickman Work Phone: [facility] 06-03-2022 15:19-0500 Systolic blood pressure 120 mm[Hg] Dr. Geeta Hickman Work Phone: [facility] 05-20-2022 07:38-0500 Body height 172.[address] Geeta Hickman Work Phone: [facility] 05-20-2022 07:38-0500 Body mass index (BMI) [Ratio] 36.1 kg/m2 Dr. Geeta Hickman Work Phone: [facility] 05-20-2022 07:38-0500 Body temperature 96 [degF] Dr. Geeta Hickman Work Phone: [facility] 05-20-2022 07:38-0500 Body weight 107.[address] Geeta Hickman Work Phone: [facility] 05-20-2022 07:38-0500 Diastolic blood pressure 80 mm[Hg] Dr. Geeta Hickman Work Phone: [facility] 05-20-2022 07:38-0500 Heart rate 86 /min Dr. Geeta Hickman Work Phone: [facility] 05-20-2022 07:38-0500 Respiratory rate 16 /min Dr. Geeta Hickman Work Phone: [facility] 05-20-2022 07:38-0500 SaO2% (BldA) [Mass fraction] 99 % Dr. Geeta Hickman Work Phone: [facility] 05-20-2022 07:38-0500 Systolic blood pressure 122 mm[Hg] Dr. Geeta Hickman Work Phone: [facility] 05-05-2022 06:42-0500 Body height 172.[address] Geeta Hickman Work Phone: [facility] 05-05-2022 06:42-0500 Body mass index (BMI) [Ratio] 36.1 kg/m2 Dr. Geeta Hickman Work Phone: [facility] 05-05-2022 06:42-0500 Body temperature 96.5 [degF] Dr. Geeta Hickman Work Phone: [facility] 05-05-2022 06:42-0500 Body weight 107.[address] Geeta Hickman Work Phone: [facility] 05-05-2022 06:42-0500 Diastolic blood pressure 82 mm[Hg] Dr. Geeta Hickman Work Phone: [facility] 05-05-2022 06:42-0500 Heart rate 84 /min Dr. Geeta Hickman Work Phone: [facility] 05-05-2022 06:42-0500 Respiratory rate 18 /min Dr. Geeta Hickman Work Phone: [facility] 05-05-2022 06:42-0500 SaO2% (BldA) [Mass fraction] 97 % Dr. Geeta Hickman Work Phone: [facility] 05-05-2022 06:42-0500 Systolic blood pressure 124 mm[Hg] Dr. Geeta Hickman Work Phone: [facility] 04-01-2022 10:07-0500 Body height 172.[address] Geeta Hickman Work Phone: [facility] 04-01-2022 10:07-0500 Body mass index (BMI) [Ratio] 36.1 kg/m2 Dr. Geeta Hickman Work Phone: [facility] 04-01-2022 10:07-0500 Body temperature 96.8 [degF] Dr. Geeta Hickman Work Phone: [facility] 04-01-2022 10:07-0500 Body weight 107.[address] Geeta Hickman Work Phone: [facility] 04-01-2022 10:07-0500 Diastolic blood pressure 84 mm[Hg] Dr. Geeta Hickman Work Phone: [facility] 04-01-2022 10:07-0500 Heart rate 95 /min Dr. Geeta Hickman Work Phone: [facility] 04-01-2022 10:07-0500 Respiratory rate 16 /min Dr. Geeta Hickman Work Phone: [facility] 04-01-2022 10:07-0500 SaO2% (BldA) [Mass fraction] 97 % Dr. Geeta Hickman Work Phone: [facility] 04-01-2022 10:07-0500 Systolic blood pressure 108 mm[Hg] Dr. Geeta Hickman Work Phone: [facility] 02-19-2022 19:35-0500 Respiratory rate 18 /min Dr. Ashok Siu Work Phone: [facility] 02-19-2022 18:11-0500 Body height 172.[address] Ashko Siu Work Phone: [facility] Work Phone: 02-19-2022 18:11-0500 Body mass index (BMI) [Ratio] 35.7 kg/m2 Dr. Ashok Siu Work Phone: [facility] 02-19-2022 18:11-0500 Body temperature 97.3 [degF] Dr. Ashok Siu Work Phone: [facility] 02-19-2022 18:11-0500 Body weight 106.[address] Ashok Siu Work Phone: [facility] 02-19-2022 18:11-0500 Diastolic blood pressure 98 mm[Hg] Dr. Ashok Siu Work Phone: [facility] 02-19-2022 18:11-0500 Heart rate 95 /min Dr. Ashok Siu Work Phone: [facility] 02-19-2022 18:11-0500 SaO2% (BldA) [Mass fraction] 97 % Dr. Ashok Siu Work Phone: [facility] 02-19-2022 18:11-0500 Systolic blood pressure 165 mm[Hg] Dr. Ashok Siu Work Phone: [facility] 01-05-2022 19:00-0400 Body temperature 98.2 [degF] Ashley Owens APRN.SONOGRAPHER Work Phone: [facility] 01-05-2022 19:00-0400 Body weight 108.32 kg sAhley Owens APRN.SONOGRAPHER Work Phone: [facility] 01-05-2022 19:00-0400 Diastolic blood pressure 86 mm[Hg] Ashley Owens APRN.SONOGRAPHER Work Phone: [facility] 01-05-2022 19:00-0400 Heart rate 89 /min Ashley Owens APRN.SONOGRAPHER Work Phone: [facility] 01-05-2022 19:00-0400 Respiratory rate 20 /min Ashley Owens APRN.SONOGRAPHER Work Phone: [facility] 01-05-2022 19:00-0400 SaO2% (BldA) [Mass fraction] 98 % Ashley Owens APRN.SONOGRAPHER Work Phone: [facility] 01-05-2022 19:00-0400 Systolic blood pressure 128 mm[Hg] Ashley Owens APRN.SONOGRAPHER Work Phone: [facility] 12-24-2021 08:33-0400 Body height 172.[address] Ashok Siu Work Phone: [facility] Work Phone: 12-24-2021 08:33-0400 Body mass index (BMI) [Ratio] 35.7 kg/m2 Dr. Ashok Siu Work Phone: [facility] 12-24-2021 08:33-0400 Body temperature 98.4 [degF] Dr. Ashok Siu Work Phone: [facility] 12-24-2021 08:33-0400 Body weight 106.[address] Ashok Siu Work Phone: [facility] 12-24-2021 08:33-0400 Diastolic blood pressure 88 mm[Hg] Dr. Ashok Siu Work Phone: [facility] 12-24-2021 08:33-0400 Heart rate 86 /min Dr. Ashok Siu Work Phone: [facility] 12-24-2021 08:33-0400 Respiratory rate 14 /min Dr. Ashok Siu Work Phone: [facility] 12-24-2021 08:33-0400 SaO2% (BldA) [Mass fraction] 98 % Dr. Ashok Siu Work Phone: [facility] 12-24-2021 08:33-0400 Systolic blood pressure 134 mm[Hg] Dr. Ashok Siu Work Phone: [facility] 11-05-2021 11:29-0400 Body mass index (BMI) [Ratio] 35.7 kg/m2 Dr. Ashok Siu Work Phone: [facility] Work Phone: 11-05-2021 11:29-0400 Body mass index (BMI) [Ratio] 35.6 kg/m2 Dr. Ashok Siu Work Phone: [facility] Work Phone: 11-05-2021 11:29-0400 Body temperature 98.3 [degF] Dr. Ashok Siu Work Phone: [facility] Work Phone: 11-05-2021 11:29-0400 Body weight 106.[address] Ashok Siu Work Phone: [facility] Work Phone: 11-05-2021 11:29-0400 Body weight 106.[address] Ashok Siu Work Phone: [facility] Work Phone: 11-05-2021 11:29-0400 Diastolic blood pressure 76 mm[Hg] Dr. Ashok Siu Work Phone: [facility] Work Phone: 11-05-2021 11:29-0400 Heart rate 89 /min Dr. Ashok Siu Work Phone: [facility] Work Phone: 11-05-2021 11:29-0400 Respiratory rate 14 /min Dr. Ashok Siu Work Phone: [facility] Work Phone: 11-05-2021 11:29-0400 SaO2% (BldA) [Mass fraction] 98 % Dr. Ashok Siu Work Phone: [facility] Work Phone: 11-05-2021 11:29-0400 Systolic blood pressure 128 mm[Hg] Dr. Ashok Siu Work Phone: [facility] Work Phone: 10-29-2021 14:58-0400 Body mass index (BMI) [Ratio] 35.4 kg/m2 Dr. Ashok Siu Work Phone: [facility] Work Phone: 10-29-2021 14:58-0400 Body temperature 97.6 [degF] Dr. Ashok Siu Work Phone: [facility] Work Phone: 10-29-2021 14:58-0400 Body weight 105.[address] Ashok Siu Work Phone: [facility] Work Phone: 10-29-2021 14:58-0400 Diastolic blood pressure 82 mm[Hg] Dr. Ashok Siu Work Phone: [facility] Work Phone: 10-29-2021 14:58-0400 Heart rate 91 /min Dr. Ashok Siu Work Phone: [facility] Work Phone: 10-29-2021 14:58-0400 Respiratory rate 16 /min Dr. Ashok Siu Work Phone: [facility] Work Phone: 10-29-2021 14:58-0400 SaO2% (BldA) [Mass fraction] 97 % Dr. Ashok Siu Work Phone: [facility] Work Phone: 10-29-2021 14:58-0400 Systolic blood pressure 124 mm[Hg] Dr. Ashok Siu Work Phone: [facility] Work Phone: 09-07-2021 12:53-0400 Body temperature 97.4 [degF] Dr. Ashok Siu Work Phone: [facility] Work Phone: 09-07-2021 12:53-0400 Diastolic blood pressure 84 mm[Hg] Dr. Ashok Siu Work Phone: [facility] Work Phone: 09-07-2021 12:53-0400 Heart rate 117 /min Dr. Ashok Siu Work Phone: [facility] Work Phone: 09-07-2021 12:53-0400 Respiratory rate 18 /min Dr. Ashok Siu Work Phone: [facility] Work Phone: 09-07-2021 12:53-0400 SaO2% (BldA) [Mass fraction] 98 % Dr. Ashok Siu Work Phone: [facility] Work Phone: 09-07-2021 12:53-0400 Systolic blood pressure 158 mm[Hg] Dr. Ashok Siu Work Phone: [facility] Work Phone: Encounters Encounter Date Encounter Type Care Provider Facility Start: 12-14-2024 End: 12-14-2024 Raul Hurt MD Work Phone: [facility] Start: 11-17-2024 ambulatory Ashley Gomez NP Facility :[facility] Start: 11-15-2024 End: 11-15-2024 ambulatory [facility] Start: 11-15-2024 End: 11-15-2024 Encounter for general adult medical examination without abnormal findings [facility] Start: 10-18-2024 End: 10-18-2024 ambulatory Ashley Gomez MACHINE TOOL DESIGNER-C Work Phone: -Ultrasound [facility] Start: 10-18-2024 End: 10-18-[address] Chrystal Conteh DO -Ultrasound [facility] Work Phone: Start: 10-18-2024 End: 10-18-2024 Patient encounter procedure Tanna Nava DO -[facility] Work Phone: Start: 10-18-2024 End: 10-18-2024 ambulatory Ashley Gomez MACHINE TOOL DESIGNER-C Work Phone: -[facility] Start: 10-18-2024 End: 10-18-2024 ambulatory Ashley Gomez MACHINE TOOL DESIGNER Facility:[facility] Start: 10-13-2024 ambulatory Ashley Gomez MACHINE TOOL DESIGNER Facility :[facility] Start: 10-09-2024 End: 10-09-2024 ambulatory Ashley Gomez MACHINE TOOL DESIGNER-C Work Phone: -Radiology [facility] Start: 10-09-2024 End: 10-09-2024 Patient encounter procedure Roseann Eloiseal -Radiology [facility] Work Phone: Start: 10-09-2024 End: 10-09-2024 ambulatory Ashley Gomez MACHINE TOOL DESIGNER Facility:[facility] Start: 10-04-2024 End: 10-04-2024 Refill Ashley Gomez GOAL UMPIRE - SONOGRAPHER Work Phone: [facility] Comment on above: Depressive disorder; Anxiety Start: 09-26-2024 Non-patient / Non-visit Dr. Vidal Fair MD -[facility] Work Phone: Start: 09-01-2024 End: 09-01-2024 ambulatory Ashley Gomez MACHINE TOOL DESIGNER-C Work Phone: [facility] Work Phone: Start: 09-01-2024 End: 09-01-[address] Chrystal Conteh DO -Ultrasound [facility] Work Phone: Start: 09-01-2024 End: 09-01-2024 ambulatory Ashley Gomez MACHINE TOOL DESIGNER Facility:[facility] Start: 08-30-2024 End: 08-30-2024 ambulatory Ashley Gomez MACHINE TOOL DESIGNER-C Work Phone: [facility] Work Phone: Start: 08-30-2024 End: 08-30-2024 Patient encounter procedure Denise Duff NP-C -Laboratory Specimen Work Phone: Start: 08-30-2024 End: 08-30-2024 Patient encounter procedure Denise Duff NP-C -[facility] Work Phone: Start: 08-30-2024 End: 08-30-2024 Patient encounter status Denise Duff MACHINE TOOL DESIGNER-C [facility] Start: 08-30-2024 End: 08-30-2024 ambulatory Ashley Gomez MACHINE TOOL DESIGNER-C Work Phone: [facility] Work Phone: Start: 08-30-2024 End: 08-30-2024 ambulatory Ashley Gomez MACHINE TOOL DESIGNER Facility:[facility] Start: 08-18-2024 End: 08-18-2024 ambulatory [facility] Start: 07-21-2024 End: 07-21-2024 Office outpatient visit 25 minutes Ashley Gomez GOAL UMPIRE - SONOGRAPHER Work Phone: [facility] Comment on above: Neuropathy of right foot (Primary Dx); Depressive disorder; Anxiety; Rash and nonspecific skin eruption Start: 07-21-2024 End: 07-21-2024 ambulatory [facility] Start: 07-07-2024 End: 07-07-2024 [facility] Work [facility]: Start: 07-07-2024 End: 07-07-2024 ambulatory Ashley Gomez MACHINE TOOL DESIGNER Facility:[facility] Start: 06-14-2024 ambulatory Ashley Gomez MACHINE TOOL DESIGNER Facility :[facility] Start: 05-26-2024 End: 05-26-2024 Refill Ashley Gomez GOAL UMPIRE - SONOGRAPHER Work Phone: [facility] Comment on above: Irritable bowel synd hugh with diarrhea Start: 05-17-2024 End: 05-17-2024 Office outpatient visit 25 minutes Ashley Gomez GOAL UMPIRE - SONOGRAPHER Work Phone: [facility] Comment on above: Vitamin D deficiency (Primary [...] cholesterol level Start: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 Gomez S, GOAL UMPIRE - SONOGRAPHER [address] [place] [address] [facility] Start: 02-12-2024 Depression Monitoring Depression Monitoring [facility] Start: 12-22-2023 End: 12-22-2023 Patient encounter procedure 12/22/2023 9:00 AM EDT Office Visit Rheumatology [address] [address] Fallon Rivas MD [address] [place], [place] [id number] Acute perichondritis of pinna, right [H61.011] Rheumatology Comment on above: Acute perichondritis of pinna, right [H6 1.011] Start: 12-19-2023 Depression Monitoring Depression Monitoring [facility] Start: 12-19-2023 Depresssion Monitoring Depresssion Monitoring [facility] Start: 11-28-2023 Covid-19 Vaccine ( season) Covid-19 Vaccine ( season) [facility] Start: 11-28-2023 Influenza vaccination Influenza Vaccine (#1) [facility] Start: 11-10-2023 End: 11-09-2024 25-hydroxyvitamin D3 [Mass/volume] in Serum or Plasma Vitamin D Deficiency Screening (Vit D 25) Lab Routine Vitamin D deficiency Expected: 11/10/2023 (Approximate), Expires: 11/09/2024 [facility] Comment on above: Expected: 11/10/2023 (Approximate), Expi [...] diabetes mellitus Expected: 11/10/2023 (Approximate), Expires: 11/09/2024 [facility] Comment on above: Expected: 11/10/2023 (Approximate), Expi res: 11/09/2024 Start: 11-10-2023 End: 11-09-2024 Lipid 1996 panel - Serum or Plasma Lipid panel Lab Routine Screening for lipoid disorders Expected: 11/10/2023 (Approximate), Expires: 11/09/2024 [facility] System Work Phone: Comment on above: Expected: 11/10/2023 (Approximate), Expi res: 11/09/2024 Start: 11-10-2023 End: 11-10-2023 Patient encounter procedure 11/10/2023 9:00 AM EDT Office Visit [facility] [address] [place] [id number] Cornell Holden MD [address] [place] [address] [facility] Start: 11-08-2023 End: 11-08-2023 Patient encounter procedure 11/08/2023 12:30 PM EDT Appointment [facility] Nuclear Medicine [address] [place] [id number] Christa Wong, GOAL UMPIRE - SONOGRAPHER [address] [place] [phone] [facility] Nuclear Medicine Start: 11-03-2023 End: 11-03-2023 Patient encounter procedure 11/03/2023 9:20 AM EDT Office Visit [facility] [address] [place] [address] [place] [address] Ashley Gomez, GOAL UMPIRE - SONOGRAPHER [address] [facility] [place] [place] [address] [facility] Start: 10-27-2023 Depresssion Monitoring Depresssion Monitoring [facility] Start: 10-27-2023 End: 10-26-2024 NM kidney flow/function w/wo lasix NM kidney flow/function w/wo lasix Imaging Routine Gross hematuria Left lower quadrant abdominal pain Other hydronephrosis Expected: 10/27/2023, Expires: 10/26/2024 [facility] Comment on above: Expected: 10/27/2023, Expires: Start: 10-17-2023 DIABETES SCREEN DIABETES SCREEN [facility] Start: 10-17-2023 Diabetes Screening Diabetes Screening [facility] Start: 10-15-2023 End: 10-29-2023 Bacteria identified in Urine by Culture Urine culture Microbiology Routine Gross hematuria Left lower quadrant abdominal pain Expected: 10/15/2023 (Approximate), Expires: 10/29/2023 [facility] Comment on above: Expected: 10/15/2023 (Approximate), Expi res: 10/29/2023 Start: 10-15-2023 End: 04-16-2024 NM Renal Function Mag 3 with Lasix NM Renal Function Mag 3 with Lasix Procedure Routine Gross hematuria Left lower quadrant abdominal pain Other hydronephrosis Expected: 10/15/2023 (Approximate), Expires: 04/16/2024 [facility] Comment on above: Expected: 10/15/2023 (Approximate), Expi res: 04/16/2024 Start: 10-15-2023 End: 12-16-2023 US Retroperitoneum US retroperitoneum Imaging Routine Gross hematuria Left lower quadrant abdominal pain Expected: 10/15/2023, Expires: 12/16/2023 [facility] [employer] [facility] Work Phone: Comment on above: Expected: 10/15/2023, Expires: Start: 09-15-2023 End: 09-15-2023 Telemedicine consultation with patient 09/15/2023 11:00 AM EDT Telemedicine [facility] [address] [place] [address] [place] [address] Ashley Gomez, GOAL UMPIRE - SONOGRAPHER [address] [place] [address] [facility] Start: 08-27-2023 End: 08-27-2023 Telemedicine consultation with patient 08/27/2023 9:40 AM EDT Telemedicine [facility] Medicine [address] [place] [address] [place] [address] Ashley Gomez, GOAL UMPIRE - SONOGRAPHER [address] [place] [address] [place] [address] [facility] Start: 08-13-2023 End: 08-13-2023 Telemedicine consultation with patient 08/13/2023 1:20 PM EDT Telemedicine [facility] Medicine [address] [place] [address] [place] [address] Ashley Gomez, GOAL UMPIRE - SONOGRAPHER [address] [place] [address] [place] [address] [facility] Start: 07-21-2023 End: 07-21-2023 Patient encounter procedure 07/21/2023 9:40 AM EDT Office Visit [facility] [address] [place] [address] [place] [address] Ashley Gomez, GOAL UMPIRE - SONOGRAPHER [address] [place] [address] [place] [address] [facility] Start: 07-08-2023 End: 10-07-2023 CYTOLOGY NON-CONCRETE TESTER CYTOLOGY NON-CONCRETE TESTER Lab Routine Gross hematuria Expected: 07/08/2023 (Approximate), Expires: 10/07/2023 [facility] Work Phone: Comment on above: Expected: 07/08/2023 (Approximate), Expi res: 10/07/2023 Start: 07-05-2023 Cysto w/insert ureteral stent CYSTOSCOPY AND TREATMENT [facility] Start: 07-05-2023 Patient discharge [facility] Start: 07-05-2023 Admission procedure [facility] Start: 07-04-2023 Application of intermittent pneumatic compression device [facility] Start: 07-04-2023 [facility] Start: 07-04-2023 Following clinical pathway protocol [facility] Start: 07-04-2023 Blood chemistry [facility] Start: 07-04-2023 Hospital admission, emergency, from emergency room, medical nature [facility] Start: 06-10-2023 Anes transurethral w/urethrocystoscopy nos ANESTH BLADDER SURGERY [facility] Start: 06-10-2023 Cysto w/destruction of lesions CYSTOSCOPY AND TREATMENT [facility] Start: 06-10-2023 Cystourethroscopy with biopsy CYSTOSCOPY W/BIOPSY(S) [facility] Start: 06-10-2023 Patient discharge [facility] Start: 06-02-2023 End: 06-02-2023 Patient encounter procedure 06/02/2023 10:40 AM EST Office Visit [facility] [address] [place], [place] [id number] Ashley Gomez, GOAL UMPIRE - SONOGRAPHER [address] [place], [place] [id number] [facility] Start: 05-05-2023 Elastase.pancreatic [Presence] in Stool [facility] Start: 05-05-2023 Fat [Presence] in Stool [facility] Start: 05-05-2023 Protein measurement [facility] Start: 05-05-2023 [facility] Start: 05-05-2023 Immunoglobulin measurement [facility] Start: 05-05-2023 [facility] Start: 05-05-2023 End: 05-05-2023 Patient encounter procedure [facility] Start: 05-01-2023 Depresssion Monitoring Depresssion Monitoring [facility] Start: 04-29-2023 Screening for malignant neoplasm of breast Mammogram [facility] Start: 04-28-2023 End: 04-28-2024 Hemoglobin A1c measurement Hemoglobin A1c Lab Routine Elevated glucose level Expected: 04/28/2023 (Approximate), Expires: 04/28/2024 [facility] [employer] [facility] Work Phone: Comment on above: Expected: 04/28/2023 (Approximate), Expi res: 04/28/2024 Start: 04-28-2023 End: 04-28-2024 Hepatitis C virus Ab [Presence] in Serum or Plasma by Immunoassay Hepatitis C antibody Lab Routine Need for hepatitis C screening test Expected: 04/28/2023 (Approximate), Expires: 04/28/2024 [facility] [employer] Comment on above: Expected: 04/28/2023 (Approximate), Expi res: 04/28/2024 Start: 04-28-2023 End: 04-28-2024 HIV 1+2 Ab+HIV1 p24 Ag [Presence] in Serum or Plasma by Immunoassay HIV-1 and HIV-2 Antigen-Antibody Screen Lab Routine Encounter for screening for HIV Expected: 04/28/2023 (Approximate), Expires: 04/28/2024 [facility] [employer] Comment on above: Expected: 04/28/2023 (Approximate), Expi res: 04/28/2024 Start: 04-28-2023 End: 04-28-2024 Thyrotropin [Units/volume] in Serum or Plasma TSH Lab Routine Nausea Weight gain Elevated glucose level Expected: 04/28/2023 (Approximate), Expires: 04/28/2024 [facility] [employer] Comment on above: Expected: 04/28/2023 (Approximate), Expi res: 04/28/2024 Start: 04-28-2023 End: 04-28-2024 US Pelvis transvaginal US pelvis transvaginal Imaging Routine Right lower quadrant abdominal pain Nausea Expected: 04/28/2023, Expires: 04/28/2024 [facility] [employer] Comment on above: Expected: 04/28/2023, Expires: Start: 04-21-2023 [facility] Start: 12-16-2022 End: 12-17-2023 XR Knee - left 4 Views [facility] [employer] Work Phone: Comment on above: Expected: 12/16/2022, Expires: 4 Once for 1 Occurrenc es starting 12/16/2022 until 12/16/2022 Start: 11-27-2022 Covid-19 Vaccine () Covid-19 Vaccine () [facility] Start: 11-27-2022 Influenza vaccination [facility] Start: 11-20-2022 End: 11-20-2022 Patient encounter procedure 11/20/2022 8:00 AM EDT Appointment [facility] Nuclear Medicine [address] [place] [address] [employer] [address], [address] [place] [address] [facility] Nuclear Medicine Start: 10-30-2022 End: 10-31-2023 25-hydroxyvitamin D3 [Mass/volume] in Serum or Plasma Vitamin D Deficiency Screening (Vit D 25) Lab Routine Vitamin D deficiency Expected: 10/30/2022 (Approximate), Expires: 10/31/2023 [facility] [employer] Comment on above: Expected: 10/30/2022 (Approximate), Expi [...] osteoarthritis type Expected: 10/30/2022 (Approximate), Expires: 10/30/2023 [facility] [employer] Work Phone: Comment on above: Expected: [...] disorder Anxiety Expected: 10/30/2022 (Approximate), Expires: 10/30/2023 [facility] [employer] Comment on above: Expected: 10/30/2022 (Approximate), Expi res: 10/30/2023 Start: 10-30-2022 End: 10-30-2023 Lipid 1996 panel - Serum or Plasma Lipid panel Lab Routine Screening for lipoid disorders Expected: 10/30/2022 (Approximate), Expires: 10/30/2023 [facility] [employer] Comment on above: Expected: 10/30/2022 (Approximate), Expi res: 10/30/2023 Start: 10-30-2022 End: 10-31-2023 Thyrotropin [Units/volume] in Serum or Plasma TSH Lab Routine Class 1 obesity due to excess calories without serious comorbidity with body mass index (BMI) of 33.0 to 33.9 in adult Depressive disorder Anxiety Expected: 10/30/2022 (Approximate), Expires: 10/31/2023 [employer] Comment on above: Expected: 10/30/2022 (Approximate), Expi res: 10/31/2023 Start: 07-10-2022 Bordetella pertussis IgA and IgG and IgM panel [Units/volume] - Serum by Immunoassay [facility] Start: 07-08-2022 Liquid based cervical cytology screening [facility] Start: 06-15-2022 Fibrin dgradj products d-dimer quantitative FIBRIN DEGRADATION QUANT [facility] Start: 02-19-2022 Simple repair scalp/neck/ax/genit/trunk 2.5cm/< RPR S/N/AX/GEN/TRNK 2.5CM/< [facility] Start: 2021 COLOGUARD (FIT-DNA) COLOGUARD (FIT-DNA) [facility] Start: 2021 Colonoscopy COLONOSCOPY [facility] Start: 2021 COLORECTAL CANCER SCREENING COLORECTAL CANCER SCREENING [facility] Start: [address] COLONOGRAPHY [facility] Start: 2021 FECAL OCCULT BLOOD FECAL OCCULT BLOOD [facility] Start: 2021 Lipid 1996 panel - Serum or Plasma Lipid Screening [facility] Start: 2021 LIPID SCREEN LIPID SCREEN [facility] Start: 2021 Screening for malignant neoplasm of colon [facility] Start: 2021 SIGMOIDOSCOPY SIGMOIDOSCOPY [facility] Start: 11-27-2021 Influenza vaccination INFLUENZA (#1) [facility] Start: 10-29-2021 Patient referral [facility] Work Phone: Start: 04-29-2021 Urine microalbumin profile [facility] Start: 04-08-2021 COVID-19 VACCINE (4 - Booster for Moderna series) COVID-19 VACCINE (4 - Booster for Moderna series) [facility] Start: 04-08-2021 COVID-19 VACCINE (4 - Moderna series) COVID-19 VACCINE (4 - Moderna series) [facility] Start: 10-05-2019 PAP TESTING PAP TESTING [facility] Start: 10-05-2019 Screening for malignant neoplasm of cervix Pap Testing [facility] Start: 10-04-2017 Screening for malignant neoplasm of cervix Cervical Cancer Screening [facility] Start: 2016 Mammography [facility] Start: 2016 Screening for malignant neoplasm of breast Mammogram Screening [facility] Start: 2006 HPV TESTING HPV TESTING [facility] Start: 2006 Screening for malignant neoplasm of cervix [facility] Start: 1994 Diabetes mellitus screening Diabetes Screening [facility] Start: 1994 HEPATITIS C SCREENING HEPATITIS C SCREENING [facility] Start: 1994 Hepatitis C screening Hepatitis C Screening [facility] Start: 1994 HIV SCREENING HIV SCREENING [facility] Start: 1994 HIV screening HIV Screening [facility] Start: 1982 Pneumococcal Vaccine: Pediatrics (0 to 5 Years) and At-Risk Patients (6 to 64 Years) (1 of 2 - PCV) Pneumococcal Vaccine: Pediatrics (0 to 5 Years) and At-Risk Patients (6 to 64 Years) (1 of 2 - PCV) [facility] Start: 1976 HEPATITIS B (1 of 3 - 3-dose series) HEPATITIS B (1 of 3 - 3-dose series) [facility] Start: 1976 HIV screening HIV Screening [facility] Start: 1976 Lipid panel Lipid Panel [facility] Start: 1976 Screening for malignant neoplasm of colon [facility] Anion gap measurement [facility] Bacteria identified in Urine by Culture URINE CULTURE Microbiology Routine Burning with urination Ordered: 01/05/2022 [facility] Work Phone: Comment on above: Ordered: 01/05/2022 Bordetella pertussis IgA Ab [Units/volume] in Serum [facility] Bordetella pertussis IgG Ab [Units/volume] in Serum [facility] Bordetella pertussis IgM Ab [Units/volume] in Serum [facility] BREATH TEST GLUCOSE BREATH TEST GLUCOSE Endoscopy Routine Bloating 03/12/2022 8:48 AM EST [facility] Work Phone: BREATH TEST LACTOSE BREATH TEST LACTOSE Endoscopy Routine Bloating 03/04/2022 2:49 PM EST [facility] Work Phone: BUN/Creatinine ratio [facility] Calcium [Mass/volume ] in Serum or Plasma [facility] Carbon dioxide, tota l [Moles/volume] in Serum or Plasma [facility] Chloride [Moles/volu me] in Serum or Plasma [facility] Clostridioides diffi cile DNA [Presence] in Unspecified specimen by MARELY with probe detection [facility] Creatinine [Moles/vo lume] in Serum or Plasma [facility] End: 08-06-2024 CT Kidney WO and W contrast IV CT UROGRAM WO/W IVCON Radiology Routine Gross hematuria 1 Occurrences starting 07/08/2023 until 08/06/2024 [facility] Work Phone: Comment on above: 1 Occurrences starting 07/08/2023 until 08/06/2024 CT Kidney WO and W contrast IV CT UROGRAM WO/W IVCON Radiology Routine Gross hematuria 07/09/2023 2:21 PM EDT [facility] Work Phone: Elastase.pancreatic [Presence] in Stool [facility] Fat [Mass/mass] in Stool [facility] Fat [Presence] in Stool [facility] Fat.neutral [Presenc e] in Stool [facility] Gastrointestinal pathogens panel - Stool by MARELY with probe detection [facility] Giardia lamblia anti gen assay [facility] Glucose [Mass/volume ] in Serum or Plasma [facility] IgA [Mass/volume] in Serum or Plasma [facility] IgE [Units/volume] i n Serum or Plasma [facility] IgG [Mass/volume] in Serum or Plasma [facility] IgM [Mass/volume] in Serum or Plasma [facility] Lactoferrin [Presenc e] in Stool by Immunoassay [facility] Measurement of occul t blood in stool specimen using immunoassay [facility] Measurement of renal function [facility] MG Breast - bilatera l Screening [facility] Ova and parasites identified in Unspecified specimen by Light microscopy [facility] Path report.final Dx Spec [facility] Patient Education [facility] Work Phone: Patient referral [facility] Work Phone: Potassium [Moles/vol ume] in Serum or Plasma [facility] Protein measurement [facility] Sodium [Moles/volume ] in Serum or Plasma [facility] Urea nitrogen [Mass/volume] in Serum or Plasma [facility] Immunizations Immunization Date Immunization Notes Care Provider Fa [facility] 12-31-2023 influenza virus vaccine, unspecified formulation Ashley Gomez [employer] Work Phone: [facility] 11-10-2023 Pneumococcal Conjuga te PCV20, Pf (Prevnar 20) Ashley Gomez [employer] - SONOGRAPHER Work Phone: [facility] 12-16-2022 influenza, injectabl e, quadrivalent, preservative free Fallon Pop MD Work Phone: [facility] 12-16-2022 Seasonal, quadrivale nt, recombinant, injectable influenza vaccine, preservative free Ashley Gomez [employer] - S[employer]OGR[employer]HER Work Phone: [facility] 12-16-2022 influenza virus vaccine, unspecified formulation Nahomi Vides DO Work Phone: [facility] 10-30-2022 tetanus toxoid, redu katy diphtheria toxoid, and acellular pertussis vaccine, adsorbed Ashley Gomez [employer] - S[employer]OGRAPHER Work Phone: [facility] 07-29-2021 hepatitis B vaccine, adult dosage [facility] 02-28-2021 hepatitis B vaccine, adult dosage [facility] 02-11-2021 Covid (Moderna) [facility] 01-28-2021 hepatitis B vaccine, adult dosage [facility] 01-28-2021 influenza, injectabl e, quadrivalent, preservative free [facility] 01-28-2021 influenza, seasonal, injectable [facility] 01-28-2021 influenza, seasonal, injectable, preservative free Ashley Gomez [employer] - S[employer]OGR[employer]HER Work Phone: [facility] 01-28-2021 influenza virus vaccine, unspecified formulation Ashley Gomez [employer]GR[employer]HER Work Phone: [facility] 07-12-2020 COVID-19 vaccine, fu ll dose (MODERNA) Sada Snyder MD Work Phone: [facility] Work Phone: 06-13-2020 COVID-19 vaccine, fu ll dose (MODERNA) Sada Snyder MD Work Phone: [facility] Work Phone: 01-12-2020 influenza, injectabl e, quadrivalent, preservative free Ashley Gomez [employer]IRE - SONOGRAPHER Work Phone: [facility] 01-12-2020 influenza, seasonal, injectable Dr. Ashok Siu Work Phone: [facility] 12-22-2018 influenza, injectabl e, quadrivalent, preservative free [facility] 12-22-2018 influenza, seasonal, injectable Sada Snyder MD Work Phone: [facility] 12-24-2016 influenza, injectabl e, quadrivalent, preservative free [facility] 12-24-2016 influenza, seasonal, injectable Sada Snyder MD Work Phone: [facility] 03-01-2014 influenza, injectabl e, quadrivalent, preservative free [facility] 03-01-2014 influenza, seasonal, injectable Sada Snyder MD Work Phone: [facility] 02-20-2013 influenza virus vaccine, unspecified formulation Sada Snyder MD Work Phone: [facility] Work Phone: 04-29-2011 tetanus toxoid, redu katy diphtheria toxoid, and acellular pertussis vaccine, adsorbed Sada Snyder MD Work Phone: [facility] Work Phone: 01-22-2011 influenza virus vaccine, unspecified formulation Sada Snyder MD Work Phone: [facility] Work Phone: 01-23-2010 influenza virus vaccine, unspecified formulation Sada Snyder MD Work Phone: [facility] 03-12-2009 novel [id number], all formulations Sada Snyder MD Work Phone: [facility] Work Phone: 12-22-2008 influenza virus vaccine, unspecified formulation Sada Snyder MD Work Phone: [facility] Work Phone: 02-03-2008 influenza virus vaccine, unspecified formulation Sada Snyder MD Work Phone: [facility] Work Phone: 01-24-2007 influenza virus vaccine, unspecified formulation Sada Snyder MD Work Phone: [facility] Work Phone: 02-01-2006 influenza virus vaccine, unspecified formulation Sada Snyder MD Work Phone: [facility] Work Phone: Payers Date Payer Category Payer Self-pay [id number] 2022 Medicaid HMO [id number] 2022 Unknown [employer] [id number] 2022-Present [address] [place] [address] Commercial [id number] 2022 Unknown [id number] 2020 Medicaid [employer] MEDICA[employer] [id number] 2020-Present [phone] [address] [place] [address] Medicaid [id number] 2019 Medicaid [id number] Unknown [id number] Unknown [id number] Unknown [id number] Unknown [id number] Unknown [employer] [id number] Unknown [employer] [id number] Unknown [id number] Unknown [id number] Unknown [id number] Unknown [id number] Unknown [id number] Unknown [id number] Unknown [id number] Unknown [id number] Unknown [id number] Unknown [id number] Unknown [id number] Unknown [id number] Unknown [id number] Unknown [id number] Unknown [id number] Unknown [id number] Unknown [id number] Social History Date Type Detail Facility Start: 02-21-2021 End: 07-14-2023 Tobacco smoking status [facility] Unknown if ever smoked [facility] Start: 11-21-2019 Non-smoker [facility] Start: 1975 Sex Assigned At Female [facility] Start: 01-05-2022 End: 10-29-2022 Tobacco smoking status LAIS Never smoked tobacco [facility] Start: 12-31-2020 End: 11-15-2024 Alcohol intake Current drinker of alcohol (finding) [facility] Start: 10-10-2020 History SDOH Alcohol Frequency 3 [facility] Start: 10-10-2020 History SDOH Alcohol Std Drinks 1 [facility] Start: 12-31-2020 History SDOH Alcohol Comment socially [facility] Start: 10-10-2020 History SDOH Social Connections Phone 5 [facility] Start: 10-10-2020 History SDOH Social Connections Mandaen 2 [facility] Start: 10-10-2020 History SDOH Stress 4 [facility] Start: 10-10-2020 Education 12 [facility] Start: 01-05-2022 End: 10-29-2022 Tobacco use and exposure Smokeless tobacco non-user [facility] Start: 01-06-2020 End: 12-16-2022 Exposure to SARS-CoV-2 (event) Not sure [facility] Start: 06-15-2022 End: 11-14-2024 History of Social function [facility] Start: 06-15-2022 End: 11-14-2024 Tobacco use panel [facility] National Score (1-10 0), lower number is lower risk 81 [facility] Start: 02-27-2021 Gender identity Identifies as female gender (finding) [facility] Start: 02-27-2021 Sexual orientation Heterosexual (hiro evans) [facility] How often to you hav e a drink containing alcohol? Monthly or less [facility] How many standard drinks containing alcohol do you have on a typical day? 1 or 2 [facility] How often do you hav e 6 or more drinks on 1 occasion? Never [facility] (I/We) worried shanna er (my/our) food would run out before (I/we) got money to buy more. Never true [facility] [employer] In the past 12 month s, was there a time when you were not able to pay the mortgage or rent on time? [facility] Start: 10-29-2022 Alcohol Comment on occasion [facility] Start: 1975 Sex Assigned At Not on file S [facility] Do you belong to any clubs or organizations such as evangelical groups, unions, fraternal or athletic groups, or school groups? Yes [facility] Are you now , , , , never or living with a partner? [facility] How often to you hav e a drink containing alcohol? 2-4 times a month [facility] Do you feel stress - tense, restless, nervous, or anxious, or unable to sleep at night because your mind is troubled all the time - these days [OSQ] Rather much [facility] Start: 11-10-2023 Alcohol Comment Occasionally [facility] Start: 06-02-2007 Alcohol Comment rare [facility] Start: 10-09-2022 Sex Female (finding) [facility] Do you feel stress - tense, restless, nervous, or anxious, or unable to sleep at night because your mind is troubled all the time - these days [OSQ] To some extent [facility] How hard is it for y ou to pay for the very basics like food, housing, medical care, and heating Somewhat hard [facility] Do you feel stress - tense, restless, nervous, or anxious, or unable to sleep at night because your mind is troubled all the time - these days [OSQ] Very much [facility] (I/We) worried wheth er (my/our) food would run out before (I/we) got money to buy more. Sometimes true [facility] The food that (I/we) bought just didn't last, and (I/we) didn't have money to get more. Often true [facility] NEGATED: Highlighted row [facility] Medical Equipment Procedure Code Equipment Code Equipment Origin al Text Equipment Identifier Dates ([id number]) Polymeric ureter al stent [id number] FDA Start: 07-05-2023 Goals Date Patient Goal Desired Activity /State Functional Status Date Assessment Result Facility 07-05-2023 Functional status Bathroom Privilege [facility] Work Phone: Mental Status Date Assessment Result Facility 07-05-2023 Cognitive function Voice/Name [facility] Work Phone: 07-04-2023 Cognitive function Appropriate;C ooperative;Ta lkative [facility] Work Phone: 06-10-2023 Cognitive function Voice/Name [facility] Work Phone: Clinical Notes 02-05-2020 to 12-14-2024 Telephone Encounter - TERE Chung CNP - 12/14/2024 9:28 AM EDTTelephone Encounter - TERE Chung CNP - 12/14/2024 9:28 AM TERE Elena CNP - 07/21/2024 1:40 PM EDT Note Date & Type Note Facility 12-14-2024 Telephone encounter Note Rx sent. Follow up as scheduled. [facility] 12-14-2024 Miscellaneous Notes Rx sent. Follow up as scheduled. Prescription Request: fluticasone propionate 50 mcg/actuation nasal spray,suspension Last medication check: 05/17/24 Last physical exam: 11/15/24 Next scheduled appointment: 05/16/25 Last date of refill on this medication 05/28/24 ( qty 16 g refill 2) documented in this encounter [facility] 12-14-2024 Telephone encounter Note Prescription Request: fluticasone propionate 50 mcg/actuation nasal spray,suspension Last medication check: 05/17/24 Last physical exam: 11/15/24 Next scheduled appointment: 05/16/25 Last date of refill on this medication 05/28/24 ( qty 16 g refill 2) [facility] 10-20-2024 Radiology Diagnostic study note [facility] Services [address], [place] [id number] Pelvic w/ Transvaginal MR#: [id number] Acct: [id number] Name: MARCELINO ARAIZA Rep #: [id number] : 1975 F 48 From: Rubia Lind MD PCP: Ashley Gomez MACHINE TOOL DESIGNERElroyC Status: REG CLI Study:Pelvic w/ Transvaginal Date of Exam: 10/18/24 Exam# [id number] Ordering Dr: Chrystal oGuld DO PROCEDURE: PELVIC W/ TRANSVAGINAL 10/18/2024 REASON FOR EXAM: PELVIC PAIN, OVARIAN CYST TECHNIQUE: PELVIC W/ TRANSVAGINAL. Transabdominal and transvaginal grayscale, color and spectral Doppler pelvic ultrasound. COMPARISON: 09/01/2024 and 02/28/2024 FINDINGS: ENDOMETRIUM: Homogeneous. Normal thickness of 2.5 mm. No abnormal endometrial color Dopplerflow. UTERUS: Anteverted. Normal size and contour measuring 8.7 x 4.3 x 3.4 cm with parenchymal heterogeneity. No fibroid detected. CERVIX: Normal size and contour. Anechoic cervical nabothian cysts. RIGHT OVARY: Normal size and appearance measuring 3.0 x 2.1 x 1.8 cm. Normal follicles. Normal blood flow. No adnexal mass. LEFT OVARY: Normal size 3.3 x 2.7 x 2.2 cm containing a 1.7 x 2.0 x 1.7 cm cyst with internal echoes. Anechoic 1.0 x 1.2 x 0.7 cm cyst along the left ovary, likely a simple paraovarian cyst. Normal blood flow. No adnexalmass. FREE FLUID: Mild free fluid. OTHER: Normal appearance of the urinary bladder. US/Pelvic w/ Transvaginal IMPRESSION: Complex 2.0 cm left ovarian cyst, likely a hemorrhagic cyst. O-RADS US 2 - Almost certainly benign category (<1% risk of malignancy). No follow-up recommended. Reading Location: [id number] CC: TEJINDER Gomez; Dr. Chrystal Conteh, ~ Automotive Service Cashier: Signed [facility] 10-10-2024 Radiology Diagnostic study note [facility] Imaging Services [address] [place] [address] Finger(s) Min 2 Views MR#: [id number] Acct: [id number] Name: MARCELINO ARAIZA Rep #: [id number] : 1975 F 48 From: Cynthia Gilbert MD PCP: TEJINDER Le Status: REG CLI Study:Finger(s) Min 2 Views Date of Exam: 10/09/24 Exam# [id number] Ordering Dr: ROSEANN MIJARES PROCEDURE: FINGER(S) MIN 2 VIEWS 10/09/2024 REASON FOR EXAM: INDEX FINGER MASS TECHNIQUE: FINGER(S) MIN 2 VIEWS COMPARISON: No FINDINGS: Mild osteoarthritic changes, interphalangeal joints, mainly small osteophyte formation, and juxta-articular soft tissue calcification.. No acute bone or soft tissue pathology. RAD/Finger(s) Min 2 Views IMPRESSION: Mild osteoarthritic changes [facility] CC: TEJINDER Gomez; ROSEANN GEE ~ Automotive Service Cashier: Signed [facility] 10-04-2024 Telephone encounter Note Reviewed chart. Refill appropriate. RX sent. [facility] 10-04-2024 Miscellaneous Notes Reviewed chart. Refill appropriate. RX sent. Prescription Request: Last medication check: 05/17/24 Last physical exam: 11/10/23 Next scheduled appointment: 11/15/24 Last date of refill on this medication 02/25/24 documented in this encounter [facility] 10-04-2024 Telephone encounter Note Prescription Request: Last medication check: 05/17/24 Last physical exam: 11/10/23 Next scheduled appointment: 11/15/24 Last date of refill on this medication 02/25/24 [facility] 09-03-2024 Radiology Diagnostic study note [facility] Imaging Services [address] [place] [address] [place] [address] Pelvic w/ Transvaginal MR#: [id number] Acct: [id number] Name: MARCELINO ARAIZA Rep #: [id number] : 1975 F 48 From: Pet er Peer PCP: TEJINDER Le Status: REG CLI Study:Pelvic w/ Transvaginal Date of Exam: 09/01/24 Exam# [id number] Ordering Dr: Chrystal Gould DO PROCEDURE: PELVIC [...] weeks. Uterus unremarkable as seen. Reading [facility] CC: TEJINDER Gomez; Dr. Chrystal Conteh DO ~ Automotive Service Cashier: Signed [facility] 07-21-2024 History of Presen t illness Narrative [...] stated that they are currently in the [facility]. If the patient is a [...] 07/21/2024 1:56 PM documented in this encounter [facility] 07-07-2024 Evaluation note Diagnosis Onset Date Resolution Gastroparesis acute July 07, 2024 10:24am IBS (irritable bowel syndrome) chronic July 07, 2024 10:24am Abdominal pain inactive June 10:24am ASCUS of cervix with negative high risk HPV acute August 30, 2024 9:48am Skin lesion acute August 30 9:48am Vaginal atrophy acute August 30, 2024 9:48am Encounter for routine gynecological examination noneactive August 30, 2024 9:48am [facility] Work Phone: 1(975) 205-103704-11-2025 Evaluation note* Diagnosis Onset Date Resolution Status Admit Date Gastroparesis acute July 07, 2024 10:24am IBS (irritable bowel syndrome) chron ic July 07, 2024 10:24am Abdominal pain inactive June 10:24am Encounter for routine gynecological examination noneactive August 302024 9:48am [facility] Work Phone: 1(607) 518-233904-11-2025 Evaluation note* Diagnosis Onset Date Resolution Status Admit Date Gastroparesis acute July 07, 2024 10:24am IBS (irritable bowel syndrome) chron ic July 07, 2024 10:24am Abdominal pain inactive June 10:24am ASCUS of cervix with negativ e high risk HPV acute August 30, 2024 9 :48am Skin lesion acute August 30 9:48am Vaginal atrophy acute August 30, 2024 9:48am Encounter for routine gynecological examination noneactive August 302024 9:48am Gastroparesis acute October 18, 2024 9:50am IBS (irritable bowel syndrome) chron ic October 18, 2024 9:50am Abdominal pain inactive October 18, 2024 9:50am [facility] Work Phone: 1(628) 262-950302-28-2025 Telephone encounter Note* Telephone Encounter - Loida Bautista MA - 05/26/2024 9:42 AM EST Prescription Request: Last medication check: 05/17/24 Last physical exam: 11/10/23 Next scheduled appointment: 11/15/24 Last date of refill on this medication 04/30/23 [facility] [id number] Miscellaneous Notes* Telephone Encounter - Loida Bautista MA - 05/26/2024 9:42 AM EST Prescription Request: Last medication check: 05/17/24 Last physical exam: 11/10/23 Next scheduled appointment: 11/15/24 Last date of refill on this medication 04/30/23 documented in this [facility]02-19-2025 History of Present illness Narrative* Juana Nogueira [...] and Health Maintenance (Mammo- had done at [facility] ) ASSESSMENT/PLAN: 1. Vitamin D deficiency [...] and it was recommended she see a flux core welder- saw them in November. Will use Cyclobenzaprine [...] CNP 05/17/2024 9:34 AM documented in this [facility]12-12-2024 Telephone encounter Note* Telephone Encounter - Merry Hoffman MA - 03/09/2024 8:43 AM EST Prescription Request: Last medication check: 06/18/23 Last physical exam: 11/10/23 Next scheduled appointment: 05/17/24 Last date of refill on this medication 03/30/23 18g 2 refills [facility] [id number] Miscellaneous Notes* Telephone Encounter - Merry Hoffman MA - 03/09/2024 8:43 AM EST Prescription Request: Last medication check: 06/18/23 Last physical exam: 11/10/23 Next scheduled appointment: 05/17/24 Last date of refill on this medication 03/30/23 18g 2 refills documented in this [facility]12-02-2024 Telephone encounter Note* Telephone Encounter - TERE Abdullahi CNP - 02/28/2024 9:01 AM EST Reviewed chart. Refill appropriate. RX sent. [facility] [id number] Miscellaneous Notes* Telephone Encounter - TEER Abdullahi CNP - 02/28/2024 9:01 AM EST Reviewed chart. Refill appropriate. RX sent. * Telephone Encounter - Juana Nogueira MA - 02/28/2024 8:41 AM EST Prescription Request: Last medication check: 04/28/2023 Last physical exam: 11/10/2023 Next scheduled appointment: 05/17/2024 Last date of refill on this medication: 08/13/2023 documented in this [facility]12-02-2024 Telephone encounter Note* Telephone Encounter - Juana Nogueira MA - 02/28/2024 8:41 AM EST Prescription Request: Last medication check: 04/28/2023 Last physical exam: 11/10/2023 Next scheduled appointment: 05/17/2024 Last date of refill on this medication: 08/13/2023 [facility] [id number] History of Present illness Narrative* TERE Chung CNP - 02/25/2024 9:40 AM EST Images from [...] [facility] of them. Any and all [...] stated that they are currently in the [facility]. If the patient is a [...] visit for follow up on her fatigue. [place] this may be related to her Prozac [...] CNP 02/25/2024 10:00 AM documented in this [facility]11-13-2024 History of Present illness Narrative* Juana Nogueira MA - 02/09/2024 1:00 PM EST Patient verified by last name and . * Ashley Gmoez, GOAL UMPIRE - SONOGRAPHER - 02/09/2024 1:00 PM EST Images from [...] stated that they are currently in the [facility]. If the patient is a [...] CNP 02/09/2024 1:05 PM documented in this [facility]09-25-2024 Instructions* Patient Instructions* Kim Malhotra MD - 12/22/2023 10:30 AM EDT -Please go to the lab today for blood work -Please follow up after results are obtained documented in this [facility]09-25-2024 NoteHNO ID: [id number] Author: FALLON RIVAS MD Service: ? Author [...] reports she used to work in a [employer] for 5 years in the past and [...] (FLONASE) 50 mcg/actuation nasal spray Use 1 [place] in each nostril once daily. buPROPion XL (WELLBUTRIN XL) 300 mg 24 hr tablet Take (more content not included)...[facility]09-25-2024 History of Present illness Narrative* Fallon Rivas [...] reports she used to work in a [employer] 5 years in the past and that [...] (FLONASE) 50 mcg/actuation nasal spray Use 1 [place] in each nostril once daily. buPROPion XL [...] 172.7 cm (5' 8) Wt 111.1 kg (244lb 14.9 oz) LMP [...] results. Kim Marino MD Vascular Medicine PGY-4 [facility] RHEUMATOLOGY STAFF: I have reviewed the [...] which included preparing to see the patient, kbbt-df-lqag patient care, completing clinical documentation, obtaining and/or reviewing separately obtained history, performing a medically appropriate examination, counseling and educating the pat ient/family/caregiver, ordering medications, tests, or procedures, and independently interpreting results (not separately reported). Fallon Martinez MD, MPH Authenticated by responsible provider. [facility] History of Present illness Narrative* Loida Bautista MA - 11/10/2023 10:00 AM EDT Patient was verified by name and . After obtaining consent, and per orders of Ashley Gomze CNP, injection of PCV20 given in left deltoid by Loida Bautista. Patient instructed to report any adverse reaction immediately. * TERE Chung CNP - 11/10/2023 10:00 AM EDT Images from the original note were not included. [facility] [address] [facility] [address] Dept: [phone] Dept Loc: [phone] HPI: Marcelino Araiza is a 47 y.o. [...] and it was recommended she see a flux core welder. Is scheduled to see someone through the [facility] in December. Obesity: Denies regular exercise [...] flank pain- has a scan scheduled in [place] today. Was told she might need a [...] mg) by mouth daily. 90 tablet 1 flafjzfgeirq-rbyf-frotoqza-folic acid (Centrum) chewable tablet Chew 1 tablet [...] CNP 11/10/2023 10:24 AM documented in this encounterSACMC Healthcare [id number] Telephone encounter Note* Telephone Encounter - Lauren Browne - 10/27/2023 10:36 AM EDT Thank you Christa, I will cancel the US. Lauren [facility], [id number] Miscellaneous Notes* Telephone Encounter - Lauren Browne [...] renal scan Zarina Valverde documented in this encounterSACMC Healthcare SystemNscixa93-64-8427 Telephone encounter Note* Telephone Encounter - TERE Castaneda CNP - 10/27/2023 10:14 AM EDT She just had a ct scan. She no longer needs an ultrasound [facility] [id number] Telephone encounter Note* Telephone Encounter - Lauren Browne - 10/27/2023 9:42 AM EDT Christa, You said to get a US and NM kidney flow and function - do you want both or just one? Also you need to cancel the order that you put in procedures. Lauren Serrano [facility] [id number] Telephone encounter Note* Telephone Encounter - TERE Castaneda CNP - 10/27/2023 8:18 AM EDT Order placed. [facility], [id number] Telephone encounter Note* Telephone Encounter - Zarina Valverde - 10/27/2023 7:[address] order under imaging I can then can then call to schedule lasix renal scan Zarina Valverde [facility] [id number] History of Present illness Narrative* TERE Castaneda CNP - 10/20/2023 2:20 PM EDT Images from the original note were not included. Christa Wong APRN 10/20/2023 at 2:35 PM Urology Office Visit [facility] [address] [facility] [address] [facility] [address] Dept: [phone] Dept Loc: [phone] The patient, Ms. Araiza is a 47 [...] that they are currently in the state [facility]. If the patient is a minor, permission [...] Araiza DATE OF : 1975 REFERRING PROVIDER: Nahomi Vides DO PCP: Naga Hurt MD TODAY'S DATE: 10/20/2023 CHIEF COMPLAINT: Chief Complaint Patient presents with Nephrolithiasis Visit type: Established patient Assessment and Plan: Diagnosis Plan 1. Left flank pain [facility] U[facility] 2. Hematuria, unspecified type [facility] Urology Addressed Flank pain: ? Stone passage given significant flank pain 10/17 UA- 0 RBC/HPF 10/14- UA 3-5 RBC/HPF Has had significant relief of pain since ER visit. Still with slight soreness. Recommend continuing fluids Complete Lasix scan as ordered previously. Doing significantly better today compared to prior visit. Follow Up: Christa Wong APRN [facility] Urology HPI: Ms. Araiza is a 47 [...] Daily meloxicam (MOBIC) 15 mg, Oral, Daily kubvemcpnwll-zvtw-lgkwozgr-folic acid (Centrum) chewable tablet 1 tablet, Oral, [...] Imaging: Patient Name: MARCELINO ARAIZA : 1975 Exam [...] portions of this chart were dictated using [employer] voice recognition software. It is possible that typos and/or omissions and/or substitutions of words and/or phrases may exist, which may alter the intended meaning of the dictating provider. documented in this [facility]07-22-2024 Hospital Discharge instructions* Discharge Instructions* Nahomi Vides DO - 10/18/2023 3:44 PM EDT [...] through Care Everywhere. * Flank Pain ED (Libyan) documented in this [facility]07-22-2024 Emergency department Note* Marcelino Valencia RN - [...] general sense of unwell. documented in this [address]22-2024 Emergency department Triage note* Marcelino Valencia [...] some nausea and general sense of unwell. [facility] [id number] History of Present illness Narrative* TERE Castaneda CNP - 10/15/2023 10:00 AM EDT Images from the original note were not included. Christa Wong APRN 10/27/2023 at 8:39 AM Urology Office Visit [facility] [address] [facility] [address] Dept: [phone] Dept Loc: [phone] The patient, Ms. Araiza is a 47 [...] stated that they are currently in the [facility]. If the patient is a [...] Gross hematuria - [facility] Urology - US retroperitoneum; Future - Cancel: Urine culture; Future - Cancel: Urine culture - Cancel: Complete Urinalysis; Future - Cancel: Complete Urinalysis - NM Renal Function Mag 3 with Lasix; Future - Complete Urinalysis; Future - Urine culture; Future - NM kidney flow/function w/wo lasix; Future Left lower quadrant abdominal pain - [facility] Urology - US retroperitoneum; Future - Cancel: [...] OR note Reviewed prior CT Urogram from [facility] Reviewed prior cystoscopy and biopsy Squamous metaplasia [...] ABHIJEET Wong APRN [facility] Urology Subjective: Ms. Araiza is a 47 [...] was removed later that day. Evaluated by [facility] urology as well in [facility] -CT Urogram ordered given persistent pain and [...] Daily meloxicam (MOBIC) 15 mg, Oral, Daily dqmujjhxtzii-rtoh-ewnafkmv-folic acid (Centrum) chewable tablet 1 tablet, Oral, [...] portions of this chart were dictated using [employer] voice recognition software. It is possible that typos and/or omissions and/or substitutions of words and/or phrases may exist, which may alter the intended meaning of the dictating provider. documented in this [facility]06-19-2024 History of Present illness Narrative* Ashley Gomez, GOAL UMPIRE - SONOGRAPHER - 09/15/2023 11:00 AM EDT Images from [...] stated that they are currently in the [facility]. If the patient is a [...] (on 11/03/2023) for Next scheduled follow-up. SUBJECTIVE/OBJECTIVE: HPI Elroy Cochran presents today for a video [...] CNP 09/15/2023 11:07 AM documented in this encounterSACMC Healthcare [id number] Telephone encounter Note* Telephone Encounter - Destiny Wilhelm - 08/30/2023 4:09 PM EDT Reached out to pt, pt prefers [place] office. Scheduled first available with Dr. Holden on 11/10/23 in the [place] office and placed on the wait list in case of a cancellation. [facility], [id number] Miscellaneous Notes* Telephone Encounter - Destiny Wilhelm - 08/30/2023 4:09 PM EDT Reached out to pt, pt prefers [place] office. Scheduled first available with Dr. Holden on 11/10/23 in the [place] office and placed on the wait list in case of a cancellation. * Telephone Encounter - Vidya Guillen - 08/27/2023 10:04 AM EDT Name of Caller: Marcelino Contact Reason for Appointment: Patient called to schedule an appointment per referral. R31.0 (ICD-10-CM) - Gross hematuria R10.32 (ICD-10-CM) - Left lower quadrant abdominal pain Please advise Office Name: Urology documented in this encounterSACMC Healthcare SystemTdwypt60-25-4471 Telephone encounter Note* Telephone Encounter - Vidya Guillen - 08/27/2023 10:04 AM EDT Name of Caller: Marcelino Contact Reason for Appointment: Patient called to schedule an appointment per referral. R31.0 (ICD-10-CM) - Gross hematuria R10.32 (ICD-10-CM) - Left lower quadrant abdominal pain Please advise Office Name: Urology [facility] [id number] History of Present illness Narrative* Ashley Gomez APRN - ROSALIA - 08/27/2023 9:40 AM EDT Images from [...] stated that they are currently in the [facility]. If the patient is a [...] CNP 08/27/2023 9:55 AM documented in this [facility]05-17-2024 History of Present illness Narrative* Juana Nogueira [...] that they are currently in the state [facility]. If the patient is a minor, permission [...] Gross hematuria - [facility] Urology 4. Left lower quadrant abdominal pain - [facility] Urology 5. Osteoarthritis of both knees, unspecified [...] CNP 08/13/2023 1:36 PM documented in this encounterSACMC Healthcare [id number] Telephone encounter Note* Telephone Encounter - Loida Bautista MA - 08/10/2023 1:19 PM EDT Patient states she wants this done at [facility]. Is there a way to note this so [facility] scheduling doesn't call? [facility], [id number] Miscellaneous Notes* Telephone Encounter - Loida Bautista MA - 08/10/2023 1:19 PM EDT Patient states she wants this done at [facility]. Is there a way to note this so [facility] scheduling doesn't call? * Telephone Encounter - Isa Moraes - 08/10/2023 11:26 AM EDT We have been unable to reach your patient to schedule their testing. Test Name: US pelvis transvaginal 1st attempt//mychart message//08.07.23 KGK 2nd attempt LVM 08/10/23 CP deferred documented in this [facility]05-14-2024 Telephone encounter Note* Telephone Encounter - Isa Moraes - 08/10/2023 11:26 AM EDT We have been unable to reach your patient to schedule their testing. Test Name: US pelvis transvaginal 1st attempt//getFound.ie message//08.07.23 KGK 2nd attempt LVM 08/10/23 CP deferred [facility] [id number] History of Present illness Narrative* Juana Nogueira MA - 07/16/2023 1:00 PM EDT Patient verified by last name and . * Juana Nogueira MA - 07/16/2023 1:00 PM EDT Aleksandar Simeon at Cytology report from 07/08/2023 Went to OBGYN yesterday, found that she has Elvira in her bladder. Review Noticing that she is not urinating as frequently as she would usually since ER visit. * Ashley Gomez APRN - ROSALIA - 07/16/2023 1:00 PM EDT Images from the original note were not included. 07/16/2023 Marcelino Araiza (: 1975) is a 47 y.o. female , Established patient, here for evaluation of the following chief complaint(s): ER Follow-up (Went to [place] ER, was bleeding badly from her urethra, [...] was taken out on Wednesday. Went to [facility] to get a second opinion, had [...] stated that they are currently in the [facility]. If the patient is a [...] for a yeast infection via urologist through [facility]. Is scheduled to follow back up [...] CNP 07/16/2023 1:08 PM documented in this [facility]04-17-2024 NotePap Smear Specimen AdequacyApril 2023 11:17amComment.Satisfactory for evaluation. Endocervical and/or squamous metaplasticcells (endocervical component)are present.[facility]ACED A#[id number] Health System on above: Satisfactory for evaluation. Endocervical and/or squamous metaplasticcells (endocervical component)are present.07-12-2023 NoteHNO ID: [id number] Author: YOJANA LAERS MD Service: ? Author Type: Physician Type: Progress Notes Filed: 07/12/2023 08:34 Note Text: [facility] NEW PATIENT HISTORY AND [...] visit. Either the patient or their legal senior outside sales representative has been informed of the [...] 0.70 - 1.40 mg/dL Final URINALYSIS: Specific [place], Ur Date Value Ref Range Status 07/08/2023 [...] Reactions Ofloxacin Swelling Seaso (more content not included)...[facility]04-15-2024 History of Present illness Narrative* Yojana Lares MD - 07/12/2023 8:01 AM EDT [facility] NEW PATIENT HISTORY AND PHYSICAL EXAM PATIENT INFO: Marcelino Araiza 47 year old REFERRING M.D.: No referring provider defined for this encounter. PCP: Ashley Gomez NP, SONOGRAPHER Date of Service: July 12, 2023 Consultation [...] visit. Either the patient or their legal senior outside sales representative has been informed of the [...] 0.70 - 1.40 mg/dL Final URINALYSIS: Specific [place], Ur Date Value Ref Range Status 07/08/2023 [...] (FLONASE) 50 mcg/actuation nasal spray Use 1 [place] in each nostril once daily. Cholestyramine, Bulk, [...] Level: 4 - Moderate documented in this encounterPrem[facility]04-12-2024 History of Present illness Narrative* Reef Ernestina Vogel, RT(R) - 07/09/2023 1:20 PM EDT Radiology [...] PATIENT PRESENTS WITH AN IMPLANTABLE OR ATTACHED LADLE MECHANIC: No ALLERGIES: Reviewed and unchanged CONTRAST ALLERGY: [...] 2023 TIME: 4:11 PM documented in this encounterPrem[facility]04-12-2024 NoteHNO ID: [id number] Author: ERNESTINA TONG RT(R) Service: ? Author Type: Box Sealing Inspector Type: Progress Notes Filed: 07/09/2023 16:12 Note [...] PATIENT PRESENTS WITH AN IMPLANTABLE OR ATTACHED LADLE MECHANIC: No ALLERGIES: Reviewed and unchanged CONTRAST ALLERGY: [...] Araiza DATE: July 09, 2023 TIME: 4:11 [facility]04-11-2024 History of Present illness Narrative* Maria Elena Carvajal APRN.SONOGRAPHER - 07/08/2023 9:00 AM EDT Referring Provider: [...] Negative per patient report. She presented to [facility] ED on 07/04/23 with clot hematuria, left [...] It was not completely healed. An 8 Cuban cone-tip catheter was used to gently cannulate [...] was used for placement of a 6 Cuban 26 cm JJ stent with positioning in [...] CT urogram -Coordinate follow up virutal visit [facility] Dr. Lares after imaging completed. Further plan pending imaging results. Reviewed signs/symptoms that would warrant sooner evaluation including but not limited to fever, shaking chills, irretractable pain or vomiting Discussed with Dr. Lares Will fax today's office visit note to patient's local urologist Dr. Ashley Fair at [phone] I spent a total of 45 minutes on the date of the service which included preparing to see the patient, sdfb-vh-smio patient care, completing clinical documentation, obtaining and/or reviewing separately obtained history, counseling and educating the patient/family/caregiver, and ordering medications, tests, or procedures. Maria Elena Carvajal APRN.CNP documented in this encounterPrem[facility]04-11-2024 NoteHNO ID: [id number] Author: MARIA ELENA CARVAJAL APRN.CNP Service: ? [...] Negative per patient report. She presented to [facility] ED on 07/04/23 with clot hematuria, left [...] It was not completely healed. An 8 Cuban cone-tip catheter was used to gently cannulate the left ureteral orifice and contrast was injected in retrograde fashion under fluoroscopic visualization revealing no evidence of obstruction, foreign body or abnormality. The same findings were found on the patient's right side with the retrograde pyelogram. An attempt (more content not included)... [facility]04-11-2024 Nurse Note* Ileana Cherry MA - 07/08/2023 8:58 AM EDT Post Void Residual done on patient with 0 cc residual volume remaining. notified. Ileana Cherry MA documented in this encounterPrem[facility]04-11-[facility]24 NotePatient Outreach (UROLEONORAN) MARCELINO ARAIZA ([id number]) 1975 F Date Time Provider Department 07/08/23 MARIA ELENA CARVAJAL During your visit today, we recorded the following information about you: Allergies As of Date: 07/08/2023 Noted Allergy Reaction OFLOXACIN 01/27/2019 7 - Swelling SEASONAL ALLERGIES 07/08/2023 3 - Cough 12 - Shortness of Breath Date Reviewed: 07/08/2023 Reviewed by: Ernestina Tong RT(R) - Fully Assessed Visit Diagnosis:Screening for genitourinary condition [Z13.89] Order(s):URINALYSIS, REFLEX MICROSCOPIC [PAT7880] Order #: [id number]. #:[id number] Prescriptions as of 07/12/2023 - doxycycline (VIBRA-TABS) [...] (FLONASE) 50 mcg/actuation nasal spray Use 1 [place] in each nostril once daily. 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 IBS (irritable bowel syndrome) [K58.9] Reactive airway disease with wheezing [J45.909] Encounter Status:Closed by [employer]vi[employer], PRODUSER on 07/12/23[facility] 07-05-2023 Procedure [facility]04-07-2024 History and physical note Author Ashley Fair [facility] July 04, 2023 8:57pm Note Date/Time July 04, 2023 8:57 pm [facility] Medical Records Department [address] [place] [address] History & Physical Exam 07/04/232050 MR#: [id number] Acct: [id number] Name: MARCELINO ARAIZA Rep #:[id number] : 1975 47 From: Ashley Sanchez PCP: TEJINDER Le Status:ADM RICKY Location: [place] [address] HPI - General General Date of Admission: [...] ago for squamous 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 [facility] Medical History (Updated 07/04/23 @ 20:56 [...] 3 current occupational status: employed current occupation: [employer]- Patient Liason sexually active: Yes Smoking [...] % (Auto) 58.2, Lymph % (Auto) 29.8, Dolores % (Auto) 5.8, Eos % (Auto) 4.9, [...] Signed: Jayesh Landaverde MD at 8:50 EDT , Assessment & Plan Assessment/Plan (1) Gross hematuria: (2) Lesion of bladder: PLAN: Plan Urine culture is pending Follow labs and supportive care N.p.o. after midnight Plan for cystoscopy with fulguration in the OR tomorrow, bilateral retrograde pyelograms, possible ureteroscopy 07/04/232056 <Electronically signed by Ashley Fair MD> Cosigner Signature (if applicable): CC: TEJINDER Gomez; Dr. Ashley Fair MD~ Signed [facility] Work Phone: 1(565) 784-589704-07-2024 Discharge summary Author Cirilo Garcias [facility] July 04, 2023 10:32am Note Date/Time July 04, 2023 7:51 am [facility] Medical Records Department [address] [place] [address] Emergency Department Summary 07/04/23 MR#: [id number] Acct: [id number] Name: MARCELINO ARAIZA Rep #:[id number] : [...] of kidney stones that she knows of. [facility] Medical History Acid reflux Alcohol use [...] 3 current occupational status: employed current occupation: [employer]- Patient Liason sexually active: Yes Smoking [...] Clarity Turbid Urine pH 5.0 Ur Specific [place] 1.030 Urine Protein 500 H Urine Glucose [...] Ashley Gomez NP Referrals: Ashley Gomez NP, MACHINE TOOL DESIGNER-C [Primary Care Provider] - What to do if you have Problems For any increased pain, shortness of breath, bleeding, nausea or vomiting, chestpain, or any unexpected problems, contact your Primary Care Provider. Call [facility] ([phone]) or report to the closest Emergency Room. Call 911 if necessary. 07/04/23 1032 <Electronically signed by Cirilo Garcias DO> Cosigner Signature (if applicable): CC: TEJINDER Gomez ~ Signed [facility] Work Phone: 1(160) 585-918704-07-2024 Discharge summary Author Cirilo Garcias [facility] July 04, 2023 10:32am Note Date/Time July 04, 2023 7:51 am [facility] Medical Records Department [address] [place] [address] Emergency Department Summary 07/04/23 MR#: [id number] Acct: [id number] Name: MARCELINO ARAIZA Rep #:[id number] : [...] of kidney stones that she knows of. [facility] Medical History Acid reflux Alcohol use [...] 3 current occupational status: employed current occupation: [employer]- Patient Liason sexually active: Yes Smoking [...] Clarity Turbid Urine pH 5.0 Ur Specific [place] 1.030 Urine Protein 500 H Urine Glucose [...] Provider: Ashley Gomez NP Referrals: Ashley Gomez MACHINE TOOL DESIGNER, MACHINE TOOL DESIGNER-C [Primary Care Provider] - What to do if you have Problems For any increased pain, shortness of breath, bleeding, nausea or vomiting, chestpain, or any unexpected problems, contact your Primary Care Provider. Call [facility] ([phone]) or report to the closest Emergency Room. Call 911 if necessary. 07/04/23 1032 <Electronically signed by Cirilo Garcias DO> Cosigner Signature (if applicable): CC: MACHINE TOOL DESIGNER-C Ashley Gomez ~ Signed [facility] Work Phone: 1(484) 484-655603-22-2024 History of Present illness Narrative* Ashley Gomez, GOAL UMPIRE - SONOGRAPHER - 06/18/2023 9:40 AM EDT Images from [...] potential referral to [facility]. 2. COVID-19 virus infection [...] (around 07/16/2023) for follow up obesity. SUBJECTIVE/OBJECTIVE: HPI - Marcelino presents today for follow up on her [...] days. Has Valtrex at home from her form maker plaster and this seems to help. Review of [...] . Waist: 52 in documented in this [facility]03-14-2024 Procedure [facility]02-02-2024 Telephone encounter Note* Telephone Encounter - TERE Chung CNP - 04/30/2023 12:37 PM EST Rx sent. Follow up as scheduled. [facility] [id number] Miscellaneous Notes* Telephone Encounter - TERE Chung [...] prescribe this for her documented in this encounterSACMC Healthcare [id number] Telephone encounter Note* Telephone Encounter - Merry Hoffman MA - 04/30/2023 12:09 PM EST Prescription Request: Last medication check: 04/28/23 Last physical exam: 11/02/22 Next scheduled appointment: 11/03/23 Last date of refill on this medication I don't see that we prescribe this for her [facility] [id number] History of Present illness Narrative* TERE Chung CNP - 04/28/2023 10:00 AM EST Images from the original note were not included. 04/28/2023 Marcelino Araiza (: 1975) is a 47 y.o. female , Established patient, here for evaluation of the following chief complaint(s): ER Follow-up ([place] ER abd pain, possible UTI-urologist advised her [...] for follow from an ER visit at [facility] on 04/21/23 due to RLQ abdominal pain [...] Thought content normal. Judgment: Judgment normal. Results: [facility] Imaging Services [address] [place] [address] Abdomen/Pelvis W IV Cont ONLY MR#: [id number] Acct: [id number] Name: MARCELINO ARAIZA Rep #: [id number] : 1975 F 47 From: Lamont ross MD PCP: Ashley Jason, MACHINE TOOL DESIGNER-C Status: REG ER Study: Abdomen/Pelvis W IV Cont ONLY Date of Exam: Exam# [id number] Ordering Dr: Wagner Reynolds MD STUDY: CT [...] CNP 04/28/2023 10:31 AM documented in this [facility]01-24-2024 Discharge summary Author Wagner Reynolds [facility] April 21, 2023 7:11pm Note Date/Time April 21, 2023 4 :20pm [facility] Medical Records Department [address] [place] [address] Emergency Department Summary 04/21/23 MR#: [id number] Acct: [id number] Name: MARCELINO ARAIZA Rep #:[id number] : [...] #30 ea 09/24/22 [Rx Last Taken Unknown] bpknpgqf-ycer-optg 8 mg-folic 400 mcg-K 50 mcg-lutein 300 [...] 3 current occupational status: employed current occupation: [employer]- Patient Liason sexually active: Yes Smoking [...] % (Auto) 60.3 Lymph % (Auto) 29.7 Dolores % (Auto) 4.9 Eos % (Auto) 3.7 [...] Clarity Clear Urine pH 6.0 Ur Specific [place] 1.010 Urine Protein Negative Urine Glucose (UA) [...] Provider: Ashley Gomez NP Referrals: Ashley Gomez MACHINE TOOL DESIGNER, MACHINE TOOL DESIGNER-C [Primary Care Provider] - 3-5 Days if [...] your Primary Care Provider. Call [facility] ([phone]) or report to the closest Emergency Room. Call 911 if necessary. 04/21/231910 <Electronically signed by Wagner Reynolds MD> Cosigner Signature (if applicable): CC: TEJINDER Gomez ~ Signed [facility] Work Phone: 1(157) 608-209610-04-2023 Telephone encounter Note* Telephone Encounter - TERE Chung CNP - 12/30/2022 1:42 PM EDT Rx sent. Follow up as scheduled. [facility] [id number] Miscellaneous Notes* Telephone Encounter - TERE Chung [...] was new on 10/30/22 documented in this [facility]10-04-2023 Telephone encounter Note* Telephone Encounter - Merry Hoffman MA - 12/30/2022 8:50 AM EDT Prescription Request: Last medication check: none Last physical exam: 10/30/22 Next scheduled appointment: 05/05/23 Last date of refill on this medication we have not prescribed this pt was new on 10/30/22 [id number] History of Present illness Narrative* Ashley Gomez, TERE - SONOGRAPHER - 12/16/2022 11:00 AM EDT Images from [...] up to 5 days., Starting Wed12/16/2022, Until 12/21/2022 at 2359, Normal 3. Flu vaccine need - Flu vaccine, quadrivalent, recombinant, preservative free Follow up for follow up pending x-ray results. SUBJECTIVE/OBJECTIVE: HPI - Marcelino presents today with concerns of a left [...] any adverse reaction immediately. documented in this [facility]08-28-2023 Telephone encounter Note* Telephone Encounter - TERE Chung CNP - 11/23/2022 10:40 AM EDT Rx sent. Follow up as scheduled. [place] [id number] Miscellaneous Notes* Telephone Encounter - TERE Chung CNP - 11/23/2022 10:40 AM EDT Rx sent. Follow up as scheduled. * Telephone Encounter - Dione Lemus MA - 11/23/2022 10:22 AM EDT Prescription Request: Last medication check: none Last physical exam: 10/30/22 Next scheduled appointment: 05/05/23 Last date of refill on this medication we have not filled this for her yet. documented in this [place] [id number] Telephone encounter Note* Telephone Encounter - Dione Lemus MA - 11/23/2022 10:22 AM EDT Prescription Request: Last medication check: none Last physical exam: 10/30/22 Next scheduled appointment: 05/05/23 Last date of refill on this medication we have not filled this for her yet. [place] [id number] Telephone encounter Note* Telephone Encounter - Dione Lemus MA - 10/30/2022 8:52 AM EDT Updating HM for colonoscopy 11/07/20 and pap 07/16/22 [facility] [id number] Miscellaneous Notes* Telephone Encounter - Dione Lemus MA - 10/30/2022 8:52 AM EDT Updating HM for colonoscopy 11/07/20 and pap 07/16/22 documented in this encounterSACMC Healthcare [id number] History of Present illness Narrative* Ashley Gomez [...] physical. Previous PCP was Dr. Murphy through [facility] in [place]. Does follow up with other specialists- Dr. Nava (GI in [place]), Manager Merchandise- Dr. Juárez ([place]), Dr. Ashley Fair (Urology in [place]), Dr. Marshall (Pulmonology), Dr. Lim (Dermatology). Past [...] tablet Take by mouth every other day. plvogpmlvxyn-xjiy-ndkwofth-folic acid (Centrum) chewable tablet Chew 1 tablet [...] any adverse reaction immediately. documented in this [facility]04-12-2023 NotePap Smear Specimen AdequacyApril 2022 11:12amComment.Satisfactory for evaluation. No endocervical component is identified.[facility] A#[id number] Health System on above:Satisfactory for evaluation. No endocervical component is identified.07-08-2022 NotePap Smear Specimen AdequacyApril 2022 11:12amComment.Satisfactory for evaluation. No endocervical component is identified.[facility] A#[id number] Beachwood Medical CenterCommymichigan medical center west branch on above:Satisfactory for evaluation. No endocervical component is identified. 07-08-2022 NotePap Smear Specimen AdequacyApril 2022 11:12amComment. Satisfactory for evaluation. No endocervical component is identified.[facility] A#[id number] Beachwood Medical CenterCommymichigan medical center west branch on above:Satisfactory for evaluation. No endocervical component [...] Nadia Bolanos PA-C 06/15/2022 documented in this encounterPrem[facility]03-20-2023 History of Present illness Narrative* Analilia [...] 15, 2022 1:30 PM documented in this encounterPremier Health Miami [facility] Hospital03-20-2023 History of Present illness Narrative* Marcelino Muhammad, RT(R) - 06/15/2022 11:20 AM EDT Radiology [...] 15, 2022 11:29 AM documented in this encounterPremier Health [facility] Hospital03-20-2023 History of Present illness Narrative* Nadia [...] (FLONASE) 50 mcg/actuation nasal spray Use 1 [place] in each nostril once daily. albuterol HFA [...] TABLET - BENZONATATE 100 MG CAPSULE - L-ADHBD-cdhlgcxb 2. SOB (shortness of breath) - ICD9: [...] and when to seek care sooner. - J-XSZHJ-plxhfdsz - US DVT LOWER RT-normal The patient indicates understanding of these issues and agrees with the plan. Nadia Bolanos PA-C documented in this encounterPremier Health Miami [facility] Hospital02-27-2023 Miscellaneous Notes* Telephone Encounter - Marck Alexander RN - 05/25/2022 12:08 PM EST Pharmacy escripts requesting the following refill: Requested Prescriptions Pending Prescriptions Disp Refills dicyclomine (BENTYL) 10 mg capsule 30 capsule 3 Sig: Take 1 capsule by mouth three times daily as needed (abdominal pain). Please review and advise. Marck Alexander RN documented in this encounterPremier Health Miami [facility] Hospital01-06-2023 Miscellaneous Notes* Telephone Encounter - Marck [...] still obtain breath testing. documented in this encounterPremier Health Miami [facility] Hospital01-04-2023 History of Present illness Narrative* Cheryl Tucker LPN - 04/01/2022 12:22 PM EST Name: Marcelino Araiza [facility]#: [id number] Date: 04/01/2022 24 HOUR pH PROBE REMOVAL The pH probe was removed by patient and the data was downloaded from the hospital liaison for physician review. Cheryl Tucker LPN documented in this encounterPremier Health Miami [facility] Hospital12-22-2022 History of Present illness Narrative* Cheryl Tucker LPN - 03/19/2022 12:01 PM EST Name: Marcelino Araiza [facility]#: [id number] Date: 03/19/2022 24 HOUR pH PROBE INSERTION [...] removal. Cheryl Tucker LPN documented in this encounterPremier Health Miami [facility] Hospital12-20-2022 Miscellaneous Notes* Telephone Encounter - TONNY Perez - 03/17/2022 1:51 PM EST Called patient to reschedule appointment from 03/18 to Apr 24, 2022 at 1000 am.TONNY Perez documented in this encounterPremier Health Miami [facility] Hospital12-15-2022 History of Present illness Narrative* TONNY [...] 15 minutes Hydrogen: 5 Methane: [address] 30 minutes Hydrogen: 3 Methane: [address] 45 minutes Hydrogen: 3 Methane: [address] 1 hour Hydrogen: 3 Methane: [address] 1 hour, 15 minutes Hydrogen: 1 Methane: [address] 1 hour, 30 minutes Hydrogen: 2 Methane: [address] Symptoms developed during the study: Flatulence/Gas,achy stomach Patient Results Preliminary Test Results (not given to patient): Pending TONNY Perez Patient must be = Hydrogen >20 or Methane >10 in order to be positive for Bacterial Overgrowth documented in this encounterPremier Health Miami Valley Hospital12-08-2022 History of Present illness Narrative* Mickey Andres MD - 03/05/2022 9:26 AM EST Rev'd documented in this encounterCleveland [id number] History of Present illness Narrative* TONNY Perez [...] patient): Pending TONNY Perez documented in this encounterPremier Health Miami [facility] Hospital11-16-2022 Miscellaneous Notes* Telephone Encounter - Paulina [...] Please file if appropriate documented in this encounterPremier Health Miami [facility] Hospital10-27-2022 Miscellaneous Notes* Telephone Encounter - Marck Alexander RN - 01/22/2022 9:54 AM EDT GI workup by Dr. Snyder has been faxed per pt request. Marck Aleaxnder RN documented in this encounterPremier Health Miami [facility] Hospital10-10-2022 History of Present illness Narrative* Ashley Owens APRN.SONOGRAPHER - 01/05/2022 7:19 PM EDT CC: Patient [...] (FLONASE) 50 mcg/actuation nasal spray Use 1 [place] in each nostril once daily. omeprazole (PRILOSEC) [...] plan. Ashley Owens APRN.ROSALIA documented in this encounterPremier Health Miami [facility] Hospital07-06-2022 Miscellaneous Notes* Telephone Encounter - Keila Gabriel LPN - 10/01/2021 10:35 AM EDT Pt requesting refills on the following medication. Please file if appropriate. documented in this encounterPremier Health Miami [facility] Hospital11-09-2020 History of Present illness Narrative* Marcelino Muhammad (Rt), Tech - 02/05/2020 12:00 PM EST Radiology Service [...] 05, 2020 12:06 PM documented in this encounterOhio State Harding Hospitallt note Author Norma Cardona [facility] July 05, 2023 2:48pm Note Date/Time July 05, 2023 2:48 pm [facility] Medical Records Department [address] [place] [address] Counseling Note - Pharmacy 07/05/23 1446 MR#: [id number] Acct: [id number] Name: MARCELINO ARAIZA Rep #:[id number] : 1975 47 From: Norma Cardona PCP: TEJINDER Le Status:ADM RICKY Y Location: [place] [address] Pharmacy [facility] Pharmacy Service has performed discharge [...] signed by Norma Cardona> Date _ Norma Dulce Cosigner Signature (if applicable): Date CC: ~ Signed [facility] Work Phone: Discharge summary Author Ashley Fair [facility] June 10, 2023 7:55am Note Date/Time June 10, 2023 7:5 3am [facility] Medical Records Department [address] [place] [address] [place] [address] Instructions for Home/Discharge Instructions 06/10/23 0752 MR#: [id number] Acct: [id number] Name: MARCELINO ARAIZA Rep #:[id number] : 1975 47 From: Ashley Sanchez PCP: TEJINDER Le Status:REG [facility] Discharge Instructions Diet Discharge Diet: No restrictions [...] Referrals / Follow Up: Ashley Gomez NP, MACHINE TOOL DESIGNER-C [Primary Care Provider] - Disposition Disposition (needs filled in before D/C Order can be placed): Home, Self Care 06/10/23 1559<Electronically signed by Ashley Fair MD>Ashley Fair MD CC: DUSTYC Ashley Gomez; Dr. Santana Crespo MD ~ Signed [facility] Work Phone: Discharge summary Author Ashley Fair [facility] July 05, 2023 1:12pm Note Date/Time July 05, 2023 1:08 pm [facility] Medical Records Department [address] [place] [address] Instructions for Home/Discharge Instructions 07/05/23 1308 MR#: [id number] Acct: [id number] Name: MARCELINO ARAIZA Rep #:[id number] : 1975 47 From: Ashley Sanchez PCP: DUSTY LeC Status:ADM RICKY Discharge Instructions Diet Discharge Diet: [...] Ashley Fair Primary Care Provider: Ashley Gomez MACHINE TOOL DESIGNER Discharge Orders/Prescriptions Prescriptions: New oxycodone-acetaminophen [Percocet] 5-325 [...] Referrals / Follow Up: Ashley Gomez NP, MACHINE TOOL DESIGNER-C [Primary Care Provider] - Disposition Disposition (needs filled in before D/C Order can be placed): Home, Self Care 07/05/23 1312<Electronically signed by Ashley Fair MD>Ashley Fair MD CC: MACHINE TOOL DESIGNER-C Ashley Gomez ~ Signed [facility] Work Phone: evaluation noteNo assessment information available [facility] Work Phone: evaluation note* Diagnosis Left upper quadrant abdominal pain documented in this encounter [facility] HospitalEvaluation [facility]* Diagnosis Onset Date Resolution Status Cough acute Bronchitis resolved Moderate anxiety acute Severe depression acute Vitamin D deficiency acute Establishing care with new doctor, encounter for noneactive [facility] Work Phone: Evaluation note* Diagnosis Burning with urination- Primary Dysuria documented in this encounter [facility] HospitalEvaluation [facility]* Diagnosis Onset Date Resolution Status [...] both knees noneactive BMI 35.0-35.9,adult noneacti ve [facility] Work Phone: Evaluation note* Diagnosis Left upper quadrant abdominal pain documented in this encounter [facility]* Diagnosis Bloating Flatulence, eructation, and gas pain documented in this encounter [facility]Eval[facility]* Diagnosis Bloating- Primary Flatulence, eructation, and gas pain documented in this encounter [facility]Eval[facility]* Diagnosis Bloating Flatulence, eructation, and gas pain documented in this encounter [facility]Eval[facility]* Diagnosis Abdominal pain, unspecified abdominal location documented in this encounter [facility]* Diagnosis Abdominal pain, unspecified abdominal location- Primary documented in this encounter [facility]Evaluation [facility]* Diagnosis Onset Date Resolution Status [...] noneactiv e Screening for breast cancer noneactive [facility] Work Phone: Evaluation note* Diagnosis Onset Date Resolution Status Moderate anxiety acute Severe depression acute Urinary incontinence noneact aurelia Right calf pain noneactive Suspected sleep apnea noneac tive Essential hypertension nonea ctive Bilateral knee pain noneacti ve New onset headache noneactiv e Screening for breast cancer noneactive Moderate anxiety acute Severe depression acute Sleep concern noneactive [facility] Work Phone: Evaluation note* Diagnosis Onset Date [...] nonea ctive Bilateral knee pain noneacti ve [facility] Work Phone: Evaluation note* Diagnosis Left sided abdominal pain Abdominal pain, unspecified site documented [facility] this encounter [facility]* Diagnosis Onset Date Resolution Status Moderate [...] burning noneactive Acute upper respiratory infection acute [facility] Work Phone: Evaluation note* Diagnosis Acute cough- Primary SOB (shortness of breath) Shortness of breath Right leg pain Pain in limb documented in this encounter [facility]* Diagnosis Onset Date Resolution Status Moderate [...] for routine gynecological examination noneactive Cough acute [facility] Work Phone: Evaluation note* Diagnosis Onset Date [...] bowel syndrome) chronic Nausea and vomiting chronic [facility] Work Phone: Evaluation note* Diagnosis Onset Date Resolution Status Frequent urinary tract infections acute Vaginal burning noneactive Encounter for routine gynecological examination noneactive Cough acute Bloating chronic Chronic diarrhea chronic IBS (irritable bowel syndrome) chronic Nausea and vomiting chronic Frequent urinary tract infections acute LGSIL on Pap smear of cervix acute Postmenopausal state acute [facility] Work Phone: Evaluation note* Diagnosis Onset Date Resolution Status Encounter for routine gynecological examination noneactive Cough acute Bloating chronic Chronic diarrhea chronic IBS (irritable bowel syndrome) chronic Nausea and vomiting chronic Frequent urinary tract infections acute LGSIL on Pap smear of cervix acute Postmenopausal state acute [facility] Work Phone: Evaluation note* Diagnosis Well adult [...] vaccination Need for prophylactic vaccination with combined dhxithotul-sghiodw-nsliqrifr (DTP) vaccine Screening for lipoid disorders Screening for diabetes mellitus [facility] Diagnosis Irritable bowel syndrome without diarrhea [facility] Diagnosis Primary hypertension Unspecified essential hypertension [facility] Diagnosis Injury due to fall, initial encounter- Primary Left knee injury, initial encounter Flu vaccine need [facility] Diagnosis Injury due to fall, initial encounter Left knee injury, initial encounter documented in this encounter [facility] note* Diagnosis Depressive disorder Depressive disorder, not elsewhere classified Anxiety Anxiety state, unspecified documented in this encounter [facility] note* Diagnosis Right leg pain Pain in limb documented in this encounter [facility] note* Diagnosis Irritable bowel syndrome without diarrhea- Primary Irritable bowel syndrome without diarrhea documented in this encounter [facility] note* Diagnosis Right lower quadrant abdominal [...] specified viral diseases documented in this encounter [facility] note* Diagnosis Irritable bowel syndrome with diarrhea Irritable bowel syndrome documented in this encounter [facility] note* Diagnosis Class 2 obesity due to excess calories without serious comorbidity with body mass index (BMI) of 36.0 to 36.9 in adult- Primary documented in this encounter [facility] note* Diagnosis Onset Date Resolution Status IBS (irritable bowel syndrome) chronic [facility] Work Phone: evaluation note* Diagnosis Class 2 obesity due to excess calories without serious comorbidity with body mass index (BMI) of 37.0 to 37.9 in adult- Primary COVID-19 virus infection Herpes zoster without complication documented in this encounter [facility] note* Diagnosis Onset Date Resolution Status IBS (irritable bowel syndrome) chronic Gross hematuria acute Lesion of bladder acute [facility] Work Phone: Evaluation note* Diagnosis Gross hematuria- Primary Left flank pain Abdominal pain, unspecified site documented in this encounter [facility] note* Diagnosis Gross hematuria documented in this encounter [facility] note* Diagnosis Screening for genitourinary condition Screening for other and unspecified genitourinary condition documented in this encounter [facility] note* Diagnosis Left lower quadrant abdominal pain- Primary Hematuria, unspecified type documented in this encounter [facility] note* Diagnosis Left lower quadrant abdominal pain- Primary Gross hematuria documented in this encounter [facility] note* Diagnosis Onset Date Resolution Status IBS (irritable bowel syndrome) chronic Gross hematuria resolved Lesion of bladder resolved LGSIL on Pap smear of cervix acute Encounter for routine gynecological examination noneactive Hematuria noneactive [facility] Work Phone: Evaluation note* Diagnosis Depressive disorder- Primary Depressive disorder, not elsewhere classified Anxiety Anxiety state, unspecified Gross hematuria Left lower quadrant abdominal pain Osteoarthritis of both knees, unspecified osteoarthritis type [facility] Diagnosis Depressive disorder Depressive disorder, not elsewhere classified Anxiety Anxiety state, unspecified [facility] Diagnosis Left flank pain- Primary Abdominal pain, unspecified site Hematuria, unspecified type [facility] this [facility] Diagnosis Other hydronephrosis- Primary Gross hematuria Left lower quadrant abdominal pain [facility] Diagnosis Left flank pain Abdominal pain, unspecified site Hematuria, unspecified type documented [facility] this [facility] Diagnosis Well adult exam- Primary [...] pneumococcal conjugate vaccine [facility] Diagnosis Gross hematuria Left lower quadrant abdominal pain Other hydronephrosis documented in this encounter [facility]* Diagnosis Acute cough SOB (shortness of breath) Shortness of breath [facility] Diagnosis Cough Suspected COVID-19 virus infection documented in this encounter [facility] note* Diagnosis Inflammatory polyarthropathy (HCC)- Primary Unspecified inflammatory polyarthropathy [facility] Diagnosis Other fatigue- Primary Depressive disorder Depressive disorder, not elsewhere classified Anxiety Anxiety state, unspecified documented in this encounter [facility] Diagnosis Other fatigue- Primary Depressive disorder Depressive disorder, not elsewhere classified Anxiety Anxiety state, unspecified [facility]* Diagnosis Osteoarthritis of both knees, unspecified osteoarthritis type documented [facility]* Diagnosis Mild intermittent asthma without complication [facility]* Diagnosis Vitamin D deficiency- Primary Primary [...] LDL cholesterol level documented in this [facility]* Diagnosis Irritable bowel syndrome with diarrhea Irritable bowel syndrome [facility]* Diagnosis Neuropathy of right foot- Primary Depressive disorder Depressive disorder, not elsewhere classified Anxiety Anxiety state, unspecified Rash and nonspecific skin eruption Rash and other nonspecific skin eruption [facility]* Diagnosis Depressive disorder Depressive disorder, not elsewhere classified Anxiety Anxiety state, unspecified [facility] this [facility] Additional Instructions Your labs, CAT scan and urine were all normal. Tylenol Motrin for pain. Follow- up if not improving.[facility] Work Phone: Hospital Discharge instructions Additional Instructions Implant Used?: [facility] Work Phone: Hospital Discharge instructions Additional Instructions [facility]* Attachments The following attachments cannot be sent through Care Everywhere. * Nocturnal (Nighttime) Leg Cramps (Libyan) * Tdap Vaccine (Libyan) [facility] Attachments The following attachments cannot be sent through Care Everywhere. * Phentermine, ADULT (Libyan) [facility] Attachments The following attachments cannot be sent through Care Everywhere. * Semaglutide, ADULT (Libyan) [facility]* Attachments The following attachments cannot be sent through Care Everywhere. * Pneumococcal Conjugate Vaccine (20-Valent), ADULT (Libyan) documented in this [facility] for referral (narrative)* Diagnostic Procedure Only (Urgent) - Closed Specialty Diagnoses / Procedures Referred By Contac t Referred To Contact US IMAGING Diagnoses Right leg pain Procedures US DVT LOWER RT DUP-SCAN XTR VEINS UNILATERAL/LIMITED STUDY Nadia Bolanos PA-C [address] [place] [address] Us Imaging Referral ID Status Reason Start Date Expiration Date V isits Requested Visits Authorized [id number] Closed Auto-Generate d Referral 06/15/2022 07/15/2023 1 1 [facility] for referral (narrative)* Diagnostic Procedure Only (Urgent) - Closed Specialty Diagnoses / Procedures Referred By Contac t Referred To Contact US IMAGING Diagnoses Right leg pain Procedures US DVT LOWER RT DUP-SCAN XTR VEINS UNILATERAL/LIMITED STUDY Nadia Bolanos PA-C [address] [place] [address] [place] [address] Referral ID Status Reason Start Date Expiration Date V isits Requested Visits Authorized [id number] Closed Auto-Generate d Referral 06/15/2022 07/15/2023 1 1 [facility] for referral (narrative)* Consultation (Routine) - Pending Review Specialty Diagnoses / Procedures Referred By Contac t Referred To Contact Urology Diagnoses Gross hematuria Left lower quadrant abdominal pain Procedures RI OFFICE/OUTPATIENT NEW HIGH MDM 60 MINUTES Ashley Gomez S, GOAL UMPIRE - SONOGRAPHER [address] [place] [address] Cornell Holden MD [address] [place] [address] [address] [place] [address] Referral ID Status Reason Start Date Expiration Date Visits Requested Visits Authorized [id number] Pending Review Specialty Services Required 08/13/2023 08/12/2024 1 1 [facility] Consultation (Routine) - Pending Review Specialty Diagnoses / Procedures Referred By Naliniac t Referred To Contact Urology Diagnoses Left flank pain Hematuria, unspecified type Procedures RI OFFICE/OUTPATIENT NEW HIGH MDM 60 MINUTES Nahomi Vides DO [address] [place] [address] [facility] [address] [place] [address] [place] [address] Referral ID Status Reason Start Date Expiration Date Visits Requested Visits Authorized [id number] Pending Review Specialty Services Required 10/18/2023 10/17/2024 1 1 [facility] (narrative)No reason for referral information [facility]Ind[facility] Work Phone: Reason for visit Narrative* Diagnostic Procedure Only (Routine) - Closed Specialty Diagnoses / Procedures Referred By Raul beltran Referred To Contact Radiology / RADIO GENERAL [facility] Diagnoses room 1 Procedures RADIOLOGIC EXAM CHEST 2 VIEWS XR CHEST Self Radio General [facility] [address] [place] [address] Referral ID Status Reason Start Date Expiration Date Visits Re quested Visits Authorized [id number] Closed 06/15/2022 03/28/2023 1 1 [facility] Chief Complaint and Reason for Visit Chief Complaint SCREENING RLE POSSIBLE DVT Chief Complaint SCREENING RLE POSSIBLE DVT DYSPHAGIA Chief Complaint DYSPHAGIA 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 NPP E [...] SHORTNESS OF BREATH SOB, COugh SICK Annual (CONCRETE TESTER) Shortness of breath INT LABS Cough Reason [...] SHORTNESS OF BREATH SOB, COugh SICK Annual (CONCRETE TESTER) Shortness of breath INT LABS Cough Consult [...] SHORTNESS OF BREATH SOB, COugh SICK Annual (CONCRETE TESTER) Shortness of breath INT LABS Cough Consult [...] SHORTNESS OF BREATH SOB, COugh SICK Annual (CONCRETE TESTER) Shortness of breath INT LABS Cough Consult [...] FU E-ORDER Cysto,Biopsy,Fulguration,Bladder Tu PREOP HEMATURIA Annual (CONCRETE TESTER) Reason for Visit IBS (irritable bowel syndrome) Gross hematuria Lesion of bladder LGSIL on Pap smear of cervix Encounter for routine gynecological examination Hematuria Chief Complaint Admit Date Follow up July 07, 2024 10: 24am Annual (CONCRETE TESTER) August 30, 2024 9:48a m PELVIC PAIN [...] up July 07, 2024 10: 24am Annual (CONCRETE TESTER) August 30, 2024 9:48a m Reason for Visit Admit Date Gastroparesis July 07, 2024 10: 24am IBS (irritable bowel syndrome) June 10:24am Abdominal pain July 07, 2024 10: 24am Encounter for routine gynecological exam ination August 30, 2024 9:48am Chief Complaint Admit Date Follow up July 07, 2024 10: 24am Annual (CONCRETE TESTER) August 30, 2024 9:48a m PELVIC PAIN September 01, 2024 12:52 pm XRAY OF FINGERS October 09, 2024 8:35 pm Chief Complaint Admit Date Follow up July 07, 2024 10: 24am Annual (CONCRETE TESTER) August 30, 2024 9:48a m PELVIC PAIN September 01, 2024 12:52 pm XRAY OF FINGERS October 09, 2024 8:35 pm 3 M FU October 18, 2024 9:50 am Chief Complaint Admit Date Follow up July 07, 2024 10: 24am Annual (CONCRETE TESTER) August 30, 2024 9:48a m PELVIC PAIN September 01, 2024 12:52 pm XRAY OF FINGERS October 09, 2024 8:35 pm 3 M FU October 18, 2024 9:50 am PELVIC PAIN, OVARIAN CYST October 18 11:50am Reason for Visit Admit Date Gastroparesis July 07, 2024 10: 24am IBS (irritable bowel syndrome) June 10:24am Abdominal pain July 07, 2024 10: 24am ASCUS of cervix with negative high risk HPV August 30, 2024 9:48am Skin lesion August 30, 2024 9:48a m Vaginal atrophy August 30, 2024 9:48a m Encounter for routine gynecological exam ination August 30, 2024 9:48am Gastroparesis October 18, 2024 9:50 am IBS (irritable bowel syndrome) September 9:50am Abdominal pain October 18, 2024 9:50 am Family History No Family History Records Found [...] July 28, 2020 8: 39am Power of Processing Manager No July 28, 2020 8:39am Documents on File Type Date Recorded 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 Advance Directive(s) 11/07/2020 6:26 AM Advance Directive Response Recorded Date/ Time Living Will No October 31, 2021 1:50pm Power of Processing Manager No October 31 1:50pm Advance Directive Response Recorded Date/ Time Living Will No October 31, 2021 12:50pm Power of Processing Manager No October 31 12:50pm Advance Directive Response Recorded Date/ Time Living Will No February 19 6:37pm Power of Processing Manager No February 19, 2022 6:37pm Advance Directive Response Recorded Date/ Time Living Will No February 19 7:37pm Power of Processing Manager No February 19, 2022 7:37pm Advance Directive Response Recorded Date/ Time Living Will No June 15, 2022 11:52pm Power of Processing Manager No June 15 11:52pm Advance Directive Response Recorded Date/ Time Living Will No April 21 4:17pm Power of Processing Manager No April 21, 2023 4:17pm Advance Directive Response Recorded Date/ Time Living Will No June 03, 2023 9:30am Power of Processing Manager No June 02 9:30am Advance Directive Response Recorded Date/ Time Living Will No July 04, 2023 7:36am Power of Processing Manager No July 03 7:36am Advance Directive Response Recorded Date/ Time Living Will No July 04, 2023 11:39am Power of Processing Manager No July 03 11:39am Documents on File Type Date Recorded 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 Advance Directives and Livin g Will 11/10/2023 9:51 AM Documents on File Type Date Recorded 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 Advance Directives and Livin g Will 11/10/2023 9:51 AM Reason for Referral Specialty Diagnoses / Procedures Referred By Raul beltran Referred To Contact Radiology Diagnoses Irritable bowel syndrome without diarrhea Procedures NM gastric emptying solid Friend, Tanna [address], [address] [place] [address] Referral ID Status Reason Start Date Expiration Date Visits Re quested Visits Authorized [id number] Closed 11/11/2022 05/10/2023 1 1 Specialty Diagnoses / Procedures Referred By Raul beltran Referred To Contact CT IMAGING Diagnoses Gross hematuria Procedures CT UROGRAM WO/W IVCON CT ABD & PELVIS W/WO CONTRST 1+ BODY REGNS Maria Elena Carvajal, GOAL UMPIRE.SONOGRAPHER [address] [place] [address] [facility] [place] [address] Referral ID Status Reason Start Date Expiration Date Visits Requested Visits Authorized [id number] Authorized Auto-Generat ed Referral 07/08/2023 08/06/2024 1 1 Specialty Diagnoses / Procedures Referred By Raul beltran Referred To Contact Radiology Diagnoses Gross hematuria Left lower quadrant abdominal pain Other hydronephrosis Procedures NM kidney flow/function w/wo Christa Cameron, GOAL UMPIRE - SONOGRAPHER [address] [place] [address] Referral ID Status Reason Start Date Expiration Date V isits Requested Visits Authorized [id number] Pending Review 10/27/2023 10/26/2024 3 3 Referral ID Status Reason Start Date Expiration Date V isits Requested Visits Authorized [id number] Authorized 10/27/2023 10/26/2024 3 3 Summary Purpose [...] or prosecute any alcohol or drug abuse patient.[facility] the event this information is protected by the Federal Confidentiality of Alcohol and Drug Abuse Patient Records regulations: The Federal rules restrict any use of the information to criminally investigate or prosecute any alcohol or drug abuse patient.[facility] the event this information is protected by the Federal Confidentiality of Alcohol and Drug Abuse Patient Records regulations: The Federal rules restrict any use of the information to criminally investigate or prosecute any alcohol or drug abuse patient.[facility] the event this information is protected by the Federal Confidentiality of Alcohol and Drug Abuse Patient Records regulations: The Federal rules restrict any use of the information to criminally investigate or prosecute any alcohol or drug abuse patient.[facility] the event this information is protected by the Federal Confidentiality of Alcohol and Drug Abuse Patient Records regulations: The Federal rules restrict any use of the information to criminally investigate or prosecute any alcohol or drug abuse patient.[facility] the event this information is protected by the Federal Confidentiality of Alcohol and Drug Abuse Patient Records regulations: The Federal rules restrict any use of the information to criminally investigate or prosecute any alcohol or drug abuse patient.[facility] the event this information is protected by the Federal Confidentiality of Alcohol and Drug Abuse Patient Records regulations: The Federal rules restrict any use of the information to criminally investigate or prosecute any alcohol or drug abuse patient.[facility] the event this information is protected by the Federal Confidentiality of Alcohol and Drug Abuse Patient Records regulations: The Federal rules restrict any use of the information to criminally investigate or prosecute any alcohol or drug abuse patient.[facility] the event this information is protected by the Federal Confidentiality of Alcohol and Drug Abuse Patient Records regulations: The Federal rules restrict any use of the information to criminally investigate or prosecute any alcohol or drug abuse patient.[facility] the event this information is protected by the Federal Confidentiality of Alcohol and Drug Abuse Patient Records regulations: The Federal rules restrict any use of the information to criminally investigate or prosecute any alcohol or drug abuse patient.[facility] the event this information is protected by the Federal Confidentiality of Alcohol and Drug Abuse Patient Records regulations: The Federal rules restrict any use of the information to criminally investigate or prosecute any alcohol or drug abuse patient.[facility] the event this information is protected by the Federal Confidentiality of Alcohol and Drug Abuse Patient Records regulations: The Federal rules restrict any use of the information to criminally investigate or prosecute any alcohol or drug abuse patient.[facility] the event this information is protected by the Federal Confidentiality of Alcohol and Drug Abuse Patient Records regulations: The Federal rules restrict any use of the information to criminally investigate or prosecute any alcohol or drug abuse patient.[facility] the event this information is protected by the Federal Confidentiality of Alcohol and Drug Abuse Patient Records regulations: The Federal rules restrict any use of the information to criminally investigate or prosecute any alcohol or drug abuse patient.[facility] the event this information is protected by the Federal Confidentiality of Alcohol and Drug Abuse Patient Records regulations: The Federal rules restrict any use of the information to criminally investigate or prosecute any alcohol or drug abuse patient.[facility] the event this information is protected by the Federal Confidentiality of Alcohol and Drug Abuse Patient Records regulations: The Federal rules restrict any use of the information to criminally investigate or prosecute any alcohol or drug abuse patient.[facility] the event this information is protected by the Federal Confidentiality of Alcohol and Drug Abuse Patient Records regulations: The Federal rules restrict any use of the information to criminally investigate or prosecute any alcohol or drug abuse patient.[facility] the event this information is protected by the Federal Confidentiality of Alcohol and Drug Abuse Patient Records regulations: The Federal rules restrict any use of the information to criminally investigate or prosecute any alcohol or drug abuse patient.[facility] the event this information is protected by the Federal Confidentiality of Alcohol and Drug Abuse Patient Records regulations: The Federal rules restrict any use of the information to criminally investigate or prosecute any alcohol or drug abuse patient.[facility] the event this information is protected by the Federal Confidentiality of Alcohol and Drug Abuse Patient Records regulations: The Federal rules restrict any use of the information to criminally investigate or prosecute any alcohol or drug abuse patient.[facility] the event this information is protected by the Federal Confidentiality of Alcohol and Drug Abuse Patient Records regulations: The Federal rules restrict any use of the information to criminally investigate or prosecute any alcohol or drug abuse patient.[facility] the event this information is protected by the Federal Confidentiality of Alcohol and Drug Abuse Patient Records regulations: The Federal rules restrict any use of the information to criminally investigate or prosecute any alcohol or drug abuse patient.[facility] the event this information is protected by the Federal Confidentiality of Alcohol and Drug Abuse Patient Records regulations: The Federal rules restrict any use of the information to criminally investigate or prosecute any alcohol or drug abuse patient.[facility] Reason for Visit (unrecogniz ed section and content) Reason Comments Breath Hydrogen Test Specialty Diagnoses / Procedures Referred By Raul t Referred To Contact [facility] Diagnoses Bloating Procedures BREATH TEST GLUCOSE BREATH HYDROGEN/METHANE TEST Sada Snyder MD [address] [facility] [place] [address] [facility] [place] [address] Referral ID Status Reason Start Date Expiration Date V isits Requested Visits Authorized [id number] Closed Auto-Generate d Referral 01/30/2022 01/29/2023 1 1 Reason Onset Date Comments Refill Request 10/01/2021 Reason Comments UTI Burning with urinati on, lower abd pain x2 days Reason Onset Date Comments Refill Request 02/11/2022 Specialty Diagnoses / Procedures Referred By Contac t Referred To Contact [facility] Diagnoses Bloating Procedures BREATH TEST LACTOSE BREATH HYDROGEN/METHANE TEST Sada Snyder MD [address] [place] [address] [facility] [address] [place] [address] Dr MCKENZIE [address] [place] [address] Referral ID Status Reason Start Date Expiration Date V isits Requested Visits Authorized [id number] Closed Auto-Generate d Referral 02/18/2022 03/28/2022 1 1 Reason Comments Gas Reason Comments Patient Question Patient Update Reason Onset Date Comments Procedure 03/19/2022 Specialty Diagnoses / Procedures Referred By Raul beltran Referred To Contact [facility] Diagnoses Abdominal pain, unspecified abdominal location Procedures PH IMPEDANCE INSERT OFF MEDS ESOPHGL FUNCJ G-ESOP RFLX IMPD ELTRD PROLNG Sada Snyder MD [address] [facility] [place] [address] [facility] [address] [address] Referral ID Status Reason Start Date Expiration Date V isits Requested Visits Authorized [id number] Closed Auto-Generate d Referral 01/30/2022 01/29/2023 1 [...] solid Friend, Tanna [address], [address] [place] [address] Referral ID Status Reason Start Date Expiration Date Visits Re quested Visits Authorized [id number] Closed 11/11/2022 05/10/2023 1 1 Reason Onset Date Comments Med Refill 11/22/2022 Reason Comments Fall Knee Pain Left knee pain Reason Onset Date Comments Med Refill 12/30/2022 Reason Comments Radiology US Specialty Diagnoses / Procedures Referred By Raul beltran Referred To Contact US IMAGING Diagnoses Right leg pain Procedures US DVT LOWER RT DUP-SCAN XTR VEINS UNILATERAL/LIMITED STUDY Nadia Bolanos PA-C [address] [place] [address] [facility] [place] [id number] Referral ID Status Reason Start Date Expiration Date V isits Requested Visits Authorized [id number] Closed Auto-Generate d Referral 06/15/2022 07/15/2023 1 1 Reason Comments ER Follow-up [facility] abd pain, possible UTI-urologist advised her [...] CONTRST 1+ BODY REGNS Maria Elena Carvajal, TERE.SONOGRAPHER [address] [place] [address] [facility] [place] [id number] Referral ID Status Reason Start Date Expiration Date V isits Requested Visits Authorized [id number] Closed Auto-Generate d Referral 07/08/2023 08/06/2024 1 1 Reason Comments Blood In Urine Reason Comments ER Follow-up Went to [facility], was bleeding badly from her urethra, [...] was taken out on Wednesday. Went to [facility] to get a second opinion, had [...] hematuria Left lower quadrant abdominal pain Procedures RI OFFICE/OUTPATIENT NEW HIGH MDM 60 MINUTES Ashley Gomez, GOAL UMPIRE - SONOGRAPHER [address] [facility] [place] [address] Cornell Holden MD [address] [place] [address] [address] [place] [address] Referral ID Status Reason Start Date Expiration Date V isits Requested Visits Authorized [id number] Closed Specialty Services Required 08/13/2023 08/12/2024 1 1 Reason Comments Nephrolithiasis Specialty Diagnoses / Procedures Referred By Contac t Referred To Contact Urology Diagnoses Left flank pain Hematuria, unspecified type Procedures RI OFFICE/OUTPATIENT [facility] MDM 60 MINUTES Nahomi Vides DO [address] [place] [address] [facility] [address] [place] [address] [place] [address] Referral ID Status Reason Start Date Expiration Date V isits Requested Visits Authorized [id number] Closed Specialty Services Required 10/18/2023 10/17/2024 1 1 Reason Onset Date Comments Other 10/27/2023 Lasix renal scan Reason Comments Annual Exam Blood Work Health Maintenance PNA vaccine-discuss with [id number] COVID vaccine-only had 3, doesn't want a 4th Specialty Diagnoses / Procedures Referred By Contac t Referred To Contact Radiology Diagnoses Gross hematuria Left lower quadrant abdominal pain Other hydronephrosis Procedures NM kidney flow/function w/wo Christa Cameron, GOAL UMPIRE - SONOGRAPHER [address] [place] [address] Referral ID Status Reason Start Date Expiration Date V isits Requested Visits Authorized [id number] Authorized 10/27/2023 10/26/2024 3 3 Reason Comments [...] Deficiency Health Maintenance Mammo- had done at [facility] Reason Onset Date Comments Med Refill 05/26/2024 Reason Comments Peripheral Neuropathy Care Teams (unrecognized sec tion and content) Breaker Engineer Relationship Specialty Start Date End Date Ashok Siu MD PCP - General Family Practice 03/21/17 Breaker Engineer Relationship Specialty Start Date End Date Ashok Siu MD PCP - General Family Medicine 03/21/17 Breaker Engineer Relationship Specialty Start Date End Date Ashok Siu MD PCP - General Family Medicine 03/21/17 Breaker Engineer Relationship Specialty Start Date End Date Ashok Siu MD PCP - General Family Medicine 03/21/17 Breaker Engineer Relationship Specialty Start Date End Date Ashok Siu MD PCP - General Family Medicine 03/21/17 Breaker Engineer Relationship Specialty Start Date End Date Ashok Siu MD PCP - General Family Medicine 03/21/17 Breaker Engineer Relationship Specialty Start Date End Date Ashok Siu MD PCP - General Family Medicine 03/21/17 Breaker Engineer Relationship Specialty Start Date End Date Ashok Siu MD PCP - General Family Medicine 03/21/17 Breaker Engineer Relationship Specialty Start Date End Date Ashok [...] Dr. Danial Marshall MD Attending Provider Active Breaker Engineer Relationship Specialty Start Date End Date sAhok Siu MD PCP - General Family Medicine 03/21/17 Team Status: Inactive Member Role Status Dates Dr. Geeta Hickman MD Primary Care Provider, Referri ng Provider Active Jacqueline Martinez MACHINE TOOL DESIGNER, MACHINE TOOL DESIGNER-C Attending Provider Active Team Status: Inactive Member Role Status Dates Dr. Geeta Hickman MD Primary Care Provider, Referri ng Provider Active Austin Hernandez PA, PA Attending Provider Active Team Status: Inactive Member Role Status Dates Dr. Geeta Hickman MD Primary Care Provider Active Jacqueline Martinez MACHINE TOOL DESIGNER, MACHINE TOOL DESIGNER-C Attending Provider Active Team Status: Active Member Role Status Dates Dr. Geeta Hickman MD Primary Care Provider Active Dr. Ashley Fair MD Attending Provider Active Team Status: Inactive Member Role Status Dates Dr. Geeta Hickman MD Primary Care Provider Active Dr. Ashley Fair MD Attending Provider Active Breaker Engineer Relationship Specialty Start Date End Date Geeta Hickman MD NO FORWARDING ADDRESS PCP - General Internal Medicine 06/15/22 Breaker Engineer Relationship Specialty Start Date End Date Geeta Hickman MD NO FORWARDING ADDRESS PCP - General Internal Medicine 06/15/22 Team Status: Inactive Member Role Status Dates Dr. Geeta Hickman MD Primary Care Provider Active Nadia Bolanos NP, PLASTER MODEL AND MOLD MAKER Attending Provider, Referri ng Provider Active Team Status: Inactive Member Role Status Dates Dr. Geeta Hickman MD Primary Care Provider Active Dr. Landon Doe MD Emergency Provider Active Team Status: Inactive Member Role Status Dates Dr. Geeta Hickman MD Primary Care Provider, Referri ng Provider Active Sveta Cline MACHINE TOOL DESIGNER, MACHINE TOOL DESIGNER-C Attending Provider Active Team Status: Inactive Member Role Status Dates Dr. Geeta Hickman MD Primary Care Provider Active Jacqueline Martinez MACHINE TOOL DESIGNER, MACHINE TOOL DESIGNER-C Attending Provider, Referring Provider Active Team Status: Active Member Role Status Dates Dr. Geeta Hickman MD Primary Care Provider Active Sveta Cline MACHINE TOOL DESIGNER, MACHINE TOOL DESIGNER-C Attending Provider, Referrin g Provider Active Team Status: Active Member Role Status Dates Dr. Geeta Hickman MD Primary Care Provider Active Sveta Cline MACHINE TOOL DESIGNER, MACHINE TOOL DESIGNER-C Attending Provider Active Team Status: Inactive Member Role Status Dates Dr. Geeta Hickman MD Primary Care Provider, Referri ng Provider Active Roseann Michel MACHINE TOOL DESIGNER, MACHINE TOOL DESIGNER-C Attending Provider Active Team Status: Inactive Member Role Status Dates Dr. Geeta Hickman MD Primary Care Provider Active Sveta Cline MACHINE TOOL DESIGNER, MACHINE TOOL DESIGNER-C Attending Provider, Referrin g Provider Active Team Status: Inactive Member Role Status Dates Dr. Geeta Hickman MD Primary Care Provider Active Sveta Cline MACHINE TOOL DESIGNER, MACHINE TOOL DESIGNER-C Attending Provider Active Team Status: Inactive Member [...] DO Attending Provider, Refe rring Provider Active Breaker Engineer Relationship Specialty Start Date End Date Ashok Siu MD PCP - General Family Medicine 03/21/17 06/14/22 Geeta Hickman MD NO FORWARDING ADDRESS PCP - General Internal Medicine 06/15/22 Breaker Engineer Relationship Specialty Start Date End Date Naga Hurt MD [address] [place] [id number] PCP - General Family Medicine 10/29/22 Breaker Engineer Relationship Specialty Start Date End Date Naga Hurt MD [address] [place] [address] PCP - General Family Medicine 10/29/22 Breaker Engineer Relationship Specialty Start Date End Date Ashley Gomez APRN - [place] [address] [place] [address] PCP - General Nurse Practitioner Family 11/11/22 Breaker Engineer Relationship Specialty Start Date End Date Ashley Gomez APRN - SONOGRAPHER [address] [place], [place] [id number] PCP - General Nurse Practitioner Family 11/11/22 Breaker Engineer Relationship Specialty Start Date End Date Ashley Gomez, GOAL UMPIRE - SONOGRAPHER [address] [place], [place] [id number] PCP - General Nurse Practitioner Family 11/11/22 Breaker Engineer Relationship Specialty Start Date End Date Naga Hurt MD [address] [place] [address] PCP - General Family Medicine 12/15/22 Breaker Engineer Relationship Specialty Start Date End Date Naga Hurt MD [address] [place] [address] PCP - General Family Medicine 12/15/22 Breaker Engineer Relationship Specialty Start Date End Date Naga Hurt MD [address] [place] [address] PCP - General Family Medicine 12/15/22 Breaker Engineer Relationship Specialty Start Date End Date Geeta Hickman MD NO FORWARDING ADDRESS PCP - General Internal Medicine 06/15/22 Breaker Engineer Relationship Specialty Start Date End Date Ashley Gomez, GOAL UMPIRE - SONOGRAPHER [address] [place] [address] PCP - General Nurse Practitioner Family 11/11/2211/27 Naga Hurt MD [address] [place] [address] PCP - General Family Medicine 12/15/22 Breaker Engineer Relationship Specialty Start Date End Date Naga Hurt MD [address] [place] [address] PCP - General Family Medicine 12/15/22 Team Status: Active Member Role Status Dates Dr. Ashok Siu MD Family Provider Active Ashley Gomez MACHINE TOOL DESIGNER, MACHINE TOOL DESIGNER-C Primary Care Provider Active Team Status: Inactive Member Role Status Dates Ashley Gomez MACHINE TOOL DESIGNER, MACHINE TOOL DESIGNER-C Primary Care Provider Active Dr. Wagner Reynolds MD Emergency Provider Active Team Status: Inactive Member Role Status Dates Ashley Gomez MACHINE TOOL DESIGNER, MACHINE TOOL DESIGNER-C Primary Care Provider Active Dr. Edgar Coffey MD Attending Provider Activ e Breaker Engineer Relationship Specialty Start Date End Date Naga Hurt MD [address] [place] [address] PCP - [facility] 12/15/22 Breaker Engineer Relationship Specialty Start Date End Date Naga Hurt MD [address] [place] [address] PCP - [facility] 12/15/22 Breaker Engineer Relationship Specialty Start Date End Date Naga Hurt MD [address] [place] [address] PCP - [facility] Family [facility] 12/15/22 Team Status: Inactive Member Role Status Dates Dr. Geeta Hickman MD Referring Provider Active Dr. Tanna Nava DO Attending Provider Active Ashley Gomez MACHINE TOOL DESIGNER, MACHINE TOOL DESIGNER-C Primary Care Provider Active Team Status: Inactive Member Role Status Dates Ashley Gomez MACHINE TOOL DESIGNER, MACHINE TOOL DESIGNER-C Primary Care Provid er, Attending Provider, Referring Provider Active Team Status: Inactive Member Role Status Dates Ashley Gomez MACHINE TOOL DESIGNER, MACHINE TOOL DESIGNER-C Primary Care Provider Active Dr. Wagner Reynolds MD Attending Provider, Emergency Pro vider Active Team Status: Active Member Role Status Dates Ashley Jason MACHINE TOOL DESIGNER, MACHINE TOOL DESIGNER-C Primary Care Provider Active Dr. Tanna Nava , DO Attending Provider, Referring Provider Active Team Status: Inactive Member Role Status Dates Ashley Gomez MACHINE TOOL DESIGNER, MACHINE TOOL DESIGNER-C Primary Care Provider Active Dr. Tanna Nava , Attending Provider, Referring Provider Active Team Status: Inactive Member Role Status Dates Ashley Gomez MACHINE TOOL DESIGNER, MACHINE TOOL DESIGNER-C Primary Care Provider Active Dr. Ashley Fair MD Attending Provider, Referring P jose Active Dr. Santana Crespo MD Other Provider Active Breaker Engineer Relationship Specialty Start Date End Date Naga Hurt MD [address] [facility] [place] [address] PCP - General Family Medicine 12/15/22 Team Status: Active Member Role Status Dates Ashley Gomez MACHINE TOOL DESIGNER, MACHINE TOOL DESIGNER-C Primary Care Provider Active Dr. Cirilo Garcias , DO Emergency Provider Active Dr. Ashley Fair MD Admit Provider, Attending Provi mikel Active Team Status: Inactive Member Role Status Dates Ashley Gomez MACHINE TOOL DESIGNER, MACHINE TOOL DESIGNER-C Primary Care Provider Active Dr. Cirilo Garcias , DO Emergency Provider Active Dr. Ashley Fair MD Admit Provider, Attending Provi mikel Active Breaker Engineer Relationship Specialty Start Date End Date Ashley Gomez CNP [address] [place] [address] PCP - General Family Medicine 07/08/23 Breaker Engineer Relationship Specialty Start Date End Date Ashley Gomez CNP [address] [place] [address] PCP - General Family Medicine 07/08/23 Breaker Engineer Relationship Specialty Start Date End Date Ashley Gomez CNP [address] [place] [address] PCP - General Family Medicine 07/08/23 Breaker Engineer Relationship Specialty Start Date End Date Ashley Gomez CNP [address] [place] [address] PCP - General Family Medicine 07/08/23 Breaker Engineer Relationship Specialty Start Date End Date Ashley Gomez CNP [address] [place] [address] PCP - General Family Medicine 07/08/23 Breaker Engineer Relationship Specialty Start Date [place] [address] PCP - General Family Medicine 12/15/22 Team Status: Inactive Member Role Status Dates Dr. Geeta Hickman MD Referring Provider Active Ashley Gomez MACHINE TOOL DESIGNER, MACHINE TOOL DESIGNER-C Primary Care Provider Active Denise Duff NP-C Attending Provider Active Team Status: Active Member Role Status Dates Ashley Gomez MACHINE TOOL DESIGNER, MACHINE TOOL DESIGNER-C Primary Care Provider Active Dr. Mickey Gutiérrez MD Attending Provider, Referring Provider Active Team Status: Inactive Member Role Status Dates Ashley Gomez MACHINE TOOL DESIGNER, MACHINE TOOL DESIGNER-C Primary Care Provider Active Denise Duff NP-C Attending Provider, Referring Pr ovider Active Breaker Engineer Relationship Specialty Start Date [place] [address] PCP - General Family Medicine 12/15/22 Breaker Engineer Relationship Specialty Start Date End Date Naga Hurt MD [address] [place] [address] PCP - General Family Medicine 12/15/22 Breaker Engineer Relationship Specialty Start Date [place] [address] PCP - General Family Medicine 12/15/22 Cornell Holden MD [address] [facility] [address] [place] [address] Surgeon Urology 08/27/23 Breaker Engineer Relationship Specialty Start Date End Date Naga Hurt MD [address] [place] [address] [place] [address] PCP - General Family Medicine 12/15/22 Cornell Holden MD [address] [place] [address] [address] [place] [address] Surgeon Urology 08/27/23 Breaker Engineer Relationship Specialty Start Date End Date Naga Hurt MD [address] [place] [address] PCP - General Family Medicine 12/15/22 Cornell Holden MD [address] [place] [address] [place] [address] Surgeon Urology 08/27/23 Breaker Engineer Relationship Specialty Start Date End Date Naga Hurt MD [address] [place] [address] PCP - General Family Medicine 12/15/22 Cornell Holden MD [address] [place] [address] [address] [place] [address] Surgeon Urology 08/27/23 Breaker Engineer Relationship Specialty Start Date End Date Naga Hurt MD [address] [place] [address] PCP - General Family Medicine 12/15/22 Cornell Holden MD [address] [place] [address] [address] [place] [address] Surgeon Urology 08/27/23 Breaker Engineer Relationship Specialty Start Date End Date Naga Hurt MD [address] [place] [address] PCP - General Family Medicine 12/15/22 Cornell Holden MD [address] [place] [address] [address] [place] [address] Surgeon Urology 08/27/23 Breaker Engineer Relationship Specialty Start Date End Date Naga Hurt MD [address] [place] [address] PCP - General Family Medicine 12/15/22 Cornell Holden MD [address] [place] [address] [place] [address] Surgeon Urology 08/27/23 Breaker Engineer Relationship Specialty Start Date End Date Naga Hurt MD [address] [place] [address] PCP - General Family Medicine 12/15/22 Cornell Holden MD [address] [place] [address] [address] [place] [address] Surgeon Urology 08/27/23 Breaker Engineer Relationship Specialty Start Date End Date Naga Hurt MD [address] [place] [address] PCP - General Family Medicine 12/15/22 Cornell Holden MD [address] [place] [address] Surgeon Urology 08/27/23 Breaker Engineer Relationship Specialty Start Date End Date Geeta Hickman MD PCP - General Internal Medicine 06/15/22 07/07/23 Breaker Engineer Relationship Specialty Start Date End Date Ashok Siu MD PCP - General Family Medicine 03/21/17 06/14/22 Breaker Engineer Relationship Specialty Start Date End Date Ashley Gomez CNP [address] [place] [address] PCP - General Family Medicine 07/08/23 Breaker Engineer Relationship Specialty Start Date End Date Naga Hurt MD [address] [place] [address] PCP - General Family Medicine 12/15/22 Cornell Holden MD [address] [place] [address] Surgeon Urology 08/27/23 Breaker Engineer Relationship Specialty Start Date End Date Naga Hurt MD [address] [place] [address] PCP - General Family Medicine 12/15/22 Cornell Holden MD [address] [place] [address] Surgeon Urology 08/27/23 Breaker Engineer Relationship Specialty Start Date End Date Naga Hurt MD [address] [place] [address] [place] [address] PCP - General Family Medicine 12/15/22 Cornell Holden MD [address] [facility] [address] [place] [address] Surgeon Urology 08/27/23 Breaker Engineer Relationship Specialty Start Date End Date Naga Hurt MD [address] [place] [address] PCP - General Family Medicine 12/15/22 Cornell Holden MD [address] [facility] [address] [place] [address] Surgeon Urology 08/27/23 Team Status: Active Member Role Status Dates Ashley Gomez NP, MACHINE TOOL DESIGNER-C Primary Care Provider Active Team Status: Inactive Member Role Status Dates Ashley Gomez NP, MACHINE TOOL DESIGNER-C Primary Care Provider Active Start: July 07, 2024 End: July 07, 2024 Ashley Gomez NP, MACHINE TOOL DESIGNER-C Referring Provider Active S tart: July 07, 2024 End: July 07, 2024 Dr. Tanna Nava , DO Attending Provider Active Start: July 07, 2024 End: July 07, 2024 Team Status: Inactive Member Role Status Dates Ashley Gomez NP, MACHINE TOOL DESIGNER-C Primary Care Provider Active Start: August 30, 2024 End: August 30, 2024 Ashley Gomez NP, MACHINE TOOL DESIGNER-C Referring Provider Active S tart: August 30, 2024 End: August 30, 2024 TEJINDER Weber Attending Provider Active Start: August 30, 2024 End: August 30, 2024 Team Status: Inactive Member Role Status Dates Ashley Gomez NP, MACHINE TOOL DESIGNER-C Primary Care Provider Active Start: August 30, 2024 End: August 30, 2024 TEJINDER Weber Attending Provider Active Start: August 30, 2024 End: August 30, 2024 TEJINDER Weber Referring Provider Active Start: August 30, 2024 End: August 30, 2024 Team Status: Active Member Role Status Dates Ashley Gomez MACHINE TOOL DESIGNER, MACHINE TOOL DESIGNER-C Primary Care Provider Active Start: September 01, 2024 Dr. Chrystal Conteh DO Attending Provider Activ e Start: September 01, 2024 Dr. Chrystal Conteh DO Referring Provider Activ e Start: September 01, 2024 Team Status: Inactive Member Role Status Dates Ashley Gomez NP, MACHINE TOOL DESIGNER-C Primary Care Provider Active Start: September 01, 2024 End: September 01, 2024 Dr. Chrystal Conteh DO Attending Provider Activ e Start: September 01, 2024 End: September 01, 2024 Dr. Chrystal Conteh DO Referring Provider Activ e Start: September 01, 2024 End: September 01, 2024 Team Status: Inactive Member Role Status Dates Ashley Gomez MACHINE TOOL DESIGNER, MACHINE TOOL DESIGNER-C Primary Care Provider Active Start: May 03, 2024 End: May 03, 2024 Ashley Gomez NP, MACHINE TOOL DESIGNER-C Attending Provider Active S tart: May 03, 2024 End: May 03, 2024 Ashley Gomez MACHINE TOOL DESIGNER, MACHINE TOOL DESIGNER-C Referring Provider Active S tart: May 03, 2024 End: May 03, 2024 Breaker Engineer Relationship Specialty Start Date End Date Naga Hurt MD [address] [place] [address] [place] [address] PCP - General Family Medicine 12/15/22 Cornell Holden MD [address] [facility] [address] [place] [address] Surgeon Urology 08/27/23 Team Status: Active Member Role/Relationship Status Dates Ashley Gomez MACHINE TOOL DESIGNER, MACHINE TOOL DESIGNER-C Primary Care Provider Active Team Status: Inactive Member Role/Relationship Status Dates Ashley Gomez MACHINE TOOL DESIGNER, MACHINE TOOL DESIGNER-C Primary Care Provider Active Start: July 07, 2024 End: July 07, 2024 Ashley Gomez MACHINE TOOL DESIGNER, MACHINE TOOL DESIGNER-C Referring Provider Active S tart: July 07, 2024 End: July 07, 2024 Dr. Tanna Nava , Attending Provider Active Start: July 07, 2024 End: July 07, 2024 Team Status: Inactive Member Role/Relationship Status Dates Ashley Gomez MACHINE TOOL DESIGNER, MACHINE TOOL DESIGNER-C Primary Care Provider Active Start: August 30, 2024 End: August 30, 2024 Ashley Gomez MACHINE TOOL DESIGNER, MACHINE TOOL DESIGNER-C Referring Provider Active S tart: August 30, 2024 End: August 30, 2024 Denise Duff NP-C Attending Provider Active Start: August 30, 2024 End: August 30, 2024 Team Status: Inactive Member Role/Relationship Status Dates Ashley Gomez MACHINE TOOL DESIGNER, MACHINE TOOL DESIGNER-C Primary Care Provider Active Start: August 30, 2024 End: August 30, 2024 Denise Duff NP-C Attending Provider Active Start: August 30, 2024 End: August 30, 2024 Denise Duff NP-C Referring Provider Active Start: August 30, 2024 End: August 30, 2024 Team Status: Inactive Member Role/Relationship Status Dates Ashley Gomez MACHINE TOOL DESIGNER, MACHINE TOOL DESIGNER-C Primary Care Provider Active Start: September 01, 2024 End: September 01, 2024 Dr. Chrystal Conteh DO Attending Provider Activ e Start: September 01, 2024 End: September 01, 2024 Dr. Chrystal Conteh DO Referring Provider Activ e Start: September 01, 2024 End: September 01, 2024 Team Status: Inactive Member Role/Relationship Status Dates Ashley Gomez NP, MACHINE TOOL DESIGNER-C Primary Care Provider Active Start: October 09, 2024 End: October 09, 2024 Roseann Gee Attending Provider Active Sta rt: October 09, 2024 End: October 09, 2024 Team Status: Inactive Member Role/Relationship Status Dates Ashley Gomez NP, MACHINE TOOL DESIGNER-C Primary Care Provider Active Start: September 26, 2024 Dr. Ashley Fair MD Attending Provider Active Start: September 26, 2024 Team Status: Inactive Member Role/Relationship Status Dates Ashley Gomez MACHINE TOOL DESIGNER, MACHINE TOOL DESIGNER-C Primary Care Provider Active Start: October 09, 2024 End: October 09, 2024 Roseann Gee Attending Provider Active Sta rt: October 09, 2024 End: October 09, 2024 Team Status: Inactive Member Role/Relationship Status Dates Ashley Gomez MACHINE TOOL DESIGNER, MACHINE TOOL DESIGNER-C Primary Care Provider Active Start: October 18, 2024 End: October 18, 2024 Ashley Gomez MACHINE TOOL DESIGNER, MACHINE TOOL DESIGNER-C Referring Provider Active S tart: October 18, 2024 End: October 18, 2024 Dr. Tanna Nava , DO Attending Provider Active Start: October 18, 2024 End: October 18, 2024 Team Status: Inactive Member Role/Relationship Status Dates Ashley Gomez NP, MACHINE TOOL DESIGNER-C Primary Care Provider Active Start: October 18, 2024 End: October 18, 2024 Dr. Chrystal Conteh , DO Attending Provider Activ e Start: October 18, 2024 End: October 18, 2024 Dr. Chrystal Conteh , DO Referring Provider Activ e Start: October 18, 2024 End: October 18, 2024 Breaker Engineer Relationship Specialty Start Date End Date Naga Hurt MD [address] [place] [address] [place] [address] PCP - General Family Medicine 12/15/22 Cornell Holden MD [address] [place] [address] [address] [place] [address] Surgeon Urology 08/27/23 Scheduled Active and Recently [...] section and content) DATE CREATED AUTHOR 01/11/2024 [facility] DATE CREATED AUTHOR AUTHOR'S ORGANIZ ATION 11/20/2024 [facility] DATE CREATED AUTHOR AUTHOR'S ORGANIZ ATION 12/15/2024 [facility] FOR RECORDS PERTAINING TO PATIENTS WHO ARE [...] BE BASED ON THE PRIMARY CLINICAL RECORDS. [employer] provides no warranty or guarantee of the accuracy or completeness of information in this document.
[2024-12-16 11:10] LABS: AST(SGOT) 22 U/L (<=31); Alanine Aminotransfer ALT/SGPT 17 U/L (<=34); Cholesterol 144 mg/dL (<=200); Low Density Lipoprotein Calc. 74 mg/dL; Triglycerides 98 mg/dL; Very Low Density Lipoprotein 20 mg/dL (5-40); cholesterol:hdl ratio screen 2.85
== END | disposition home or self-care (01) ==
LOC: LAB 09:53
PROVIDERS: PCP Registered Nurse; Referring Provider Nurse Practitioner Family; Visit Provider Nurse Practitioner Family
DX: E78.2 Mixed hyperlipidemia (principal)
CPT/HCPCS: 36415; 80061; 84450; 84460

== ENCOUNTER 2025-03-18 15:20 | Emergency (ER) | payer MEDICAID, SELFPAY ==
[2025-03-18 15:21] VITALS: BP 142/85; PULSE 98; RESP 16; TEMP 35.7; O2SAT 99; BMI 36.5
--- OUTSIDE RECORDS SUMMARY | 2025-03-18 15:47 | XMS RPT_ITS | CCD ---
Author Organization [facility] Care Team Providers Care Membership Sales Advisor Name Role Phone Ashok Siu MD Primary [...] Provider Dr. Geeta Hickman Attending Provider Dr. eGeta Hickman Primary Care Provider Dr. Geeta Hickman [...] 10 Dr. Danial Marshall Attending Provider Michelle FILTER PRESS OPERATOR, FILTER PRESS OPERATOR-C Jacqueline Attending Provider [phone] JEANETH Gabriel Attending Provider Geeta Hickman MD Primary Care Provider Unava ilbobby Cline FILTER PRESS OPERATOR, FILTER PRESS OPERATOR-C Sveta Attending Provider [phone] Marilu FILTER PRESS OPERATOR, FILTER PRESS OPERATOR-C Roseann Arriaga Attending Provider [phone] Dr. Geeta Hickman Primary Care Provider Dr. Geeta Hickman Referring Provider [phone] Dr. Geeta Hickman Attending Provider [phone] Dr. Chrystal Conteh Attending Provider [phone] Dr. Geeta Hickman Primary Care Provider Dr. Geeta Hickman Referring Provider [phone] Michelle FILTER PRESS OPERATOR, FILTER PRESS OPERATOR-C Jacqueline Attending Provider [phone] Sherron ELLISON, Ashok Mitchell Primary Care Provider Davin ELLISON, Naga Lay Primary Care Provider Jason CARRANZA - INTERFACE ANALYST, Ashley Martinez Primary Care Provider Davin ELLISON, Naga Lay Primary Care Provider Jason APN - INTERFACE ANALYST, [facility] Primary Care Provider Dr. Geeta Hickman Referring Provider Dr. Tanna Tam Attending Provider [phone] Jason FILTER PRESS OPERATOR, FILTER PRESS OPERATOR-C Pablo Primary Care Provider Dr. Geeta Hickman Referring Provider Dr. Tanna Tam Attending Provider [phone] Jason FILTER PRESS OPERATOR, FILTER PRESS OPERATOR-C Pablo Primary Care Provider Jason LINDSEY, Pablo Primary Care Provider Dr. Mickey Gutiérrez Attending [...] ROSALIA, Ashley Loida Primary Care Provider Jason FILTER PRESS OPERATOR-C, Ashley Primary Care Provider [phone] Jason FILTER PRESS OPERATOR-C, Ashley Referring Provider Dr. Tanna Tam DO Attending Provider Omega BASURTO-CDenise Attending Provider [phone] Omega BASURTO-CDenise Referring Provider [phone] Dr. Chrystal Conteh DO Attending Provider Addison Og DO, Dr. Jarrell Referring Provider Jason FILTER PRESS OPERATOR-C, Ashley Primary Care Provider [phone] Jason FILTER PRESS OPERATOR-C, Ashley Attending Provider Jason FILTER PRESS OPERATOR-C, Ashley Referring Provider 1([facility])[phone] Roseann Gee Attending Provider [phone] Manjula ELLISON, Dr. Simeon Attending Provider Manjula ELLISON, Dr. Simeon Attending Provider 1([facility])[phone] Jason FILTER PRESS OPERATOR-C, Ashley Primary Care Physician 1([facility])[phone] Jason FILTER PRESS OPERATOR-C, Ashley Referring Provider 1([facility])[phone] Omega FILTER PRESS OPERATOR-CDenise Attending Physician 1([facility])[phone] Addison Og DO, Dr. Jarrell Attending Physician Manjula ELLISON, Dr. Simeon Attending Physician Roseann Gee Attending Physician 1([facility])[phone] Dr. Tanna Tam DO Attending Physician 1([facility] )[phone] Riley FILTER PRESS OPERATOR-CYoditRoseann Attending Physician Marcyenthoswaldo FILTER PRESS OPERATOR-C, Roseann Referring Provider Jason APN-INTERFACE ANALYST, Ashley S Primary Care Provider [phone] YONY GOMEZY S Referring Unavailable JASON, ASHLEY S Primary Care Unavailable Jason, Ashley Primary Care Unavailable Hiram Jay Attending Unavailable Jason, Ashley Referring Unavailable Tanna Tam Attending Unavailable Jason, Ashley Primary Care Unavailable Jason, Ashley Primary Care Unavailable Chrystal Conteh Attending Unavailabl e Chrystal Conteh Referring Unavailabl e Jason, Ashley Referring Unavailable Denise Duff Attending Unavailable Jason, Ashley Primary Care Unavailable Jason, Ashley Referring Unavailable Tanna Tam Attending Unavailable Jason, Ashley Primary Care Unavailable Jason, Ashley Primary Care Unavailable Dina Ramos Attending Unavailable Jason, Ashley Referring Unavailable Jason, Ashley Referring Unavailable Jason, Ashley Primary Care Unavailable Friend, Tanna Attending Unavailable Julio C Goyal Attending Unavailable Jason, Ashley Primary Care Unavailable Jason, Ashley Referring Unavailable Jason, Ashley Attending Unavailable Jason, Ashley Primary Care Unavailable Jason, Ashley Referring Unavailable Jason, Ashley Primary Care Unavailable Chapincito De La Rosa Attending Unavailable Jason, Ashley Primary Care Unavailable Hernadez, Deuce Referring Unavailable Hernadez, Deuce Attending Unavailable Jason, Ashley Primary Care Unavailable Bridenthal, Roseann Attending Unavailable Barkman, Denise Referring Unavailable Barkman, Denise Attending Unavailable Jason, Ashley Primary Care Unavailable Jason, Ashley Primary Care Unavailable Vande Velde, Chrystal Referring Unavailabl e Vande Velde, Chrystal Attending Unavailabl e Jason, Ashley Referring Unavailable Jason, Ashley Attending Unavailable Jason, Ashley Primary Care Unavailable Jason, Ashley Primary Care Unavailable Vande Velde, Chrystal Referring Unavailabl e Vande Velde, Chrystal Attending Unavailabl e Jason, Ashley Primary Care Unavailable Bridenthal, Roseann Referring Unavailable Bridenthal, Roseann Attending Unavailable Jason, Ashley Primary Care Unavailable Vande Velde, Chrystal Referring Unavailabl e Vande Velde, Chrystal Attending Unavailabl e Jason, Ashley Primary Care Unavailable Friend, Tanna Attending Unavailable Jason, Ashley Referring Unavailable DAVIN, NAGA Primary Care Unavailable JASON, ASHLEY Attending Unavailable JASON, ASHLEY Attending Unavailable DAVIN, NAGA Primary Care Unavailable JASON, ASHLEY Attending Unavailable DAVIN, NAGA Primary Care Unavailable JASON, ASHLEY Attending Unavailable DAVIN, NAGA Primary Care Unavailable JASON, ASHLEY Attending Unavailable DAVIN, NAGA Primary Care Unavailable DAVIN, NAGA Primary Care Unavailable JASON, ASHLEY Attending Unavailable Allergies Allergy Classification Reported Allergen(s) Allergy Type Date of Onset Reaction(s) Facility Quinolones (antibiotic) (1 source) Ofloxacin Drug Allergy 10-30-19 23 Swelling [facility] (20 sources) Ofloxacin; Translations: [OFLOXACIN] Drug Allergy 01-28-20 19 Swelling [facility] Work Phone: (13 sources) Environmental Allergies: Uncoded; Translations: [Environmental Allergies: Uncoded] Allergy to substance 06-03-19 24 [facility] (20 sources) Seasonal allergy Environmental allergy 06-03-19 24 [facility] (7 sources) Seasonal allergy; Translations: [SEASONAL ALLERGIES] Propensity to adverse reactions 07-08-19 24 Cough, Shortness of Breath [facility] (1 source) ALLERGIES NOT ON FILE; Translations: [ALLERGIES NOT ON FILE] Propensity to adverse reactions (disorder) [facility] 2 Repository (1 source) Ofloxacin Drug Allergy 08-31-19 25 [facility] Repository Medications Current Medications Medication Drug Class(es) Dates Sig (Normalized) Sig (Original) [id number] 200 actuat albuterol 0.09 mg/actuat metered dose [...] every six hours as needed for wheezing Start: 06-16-2022 End: 08-20-2022 take 2.5 mg by inhalation every four hours as needed for wheezing Albuterol Sulfate 2.5 mg /3 mL (0.083 %) solution for nebulization Discontinued 2.5 mg INHALATION EVERY 4 HOURS NEEDED 25 0 June 24, 2022 10:31am August 20, 2022 1:35pm Use q4 hours and PRN for wheezing Start: 10-29-2021 End: 12-10-2021 Start: 10-29-2021 End: 12-10-2021 take 1 puff(s) [...] 1 tablet by monet th once daily. cephalexin 250 mg oral capsule (20 sources) Cephalosporin Antibacterial [...] 14, 2023 9:47am post-operative Start: 04-07-2023 End: 02-14-2025 cephalexin (Keflex) 250 MG c apsule Indications: Recurrent UTI Take 1 capsule (250 mg) by mouth as needed (before intercourse). 30 capsule 2 01/15/2025 02/14/2025 Active Start: 04-07-2023 take 1 capsule by [...] twice daily. clindamycin 0.01 mg/mg topical gel (20 sources) Lincosamide Antibacterial Start: 03-01-2024 clindamycin 1 % gel Apply 1-2 times a day to the affected areas on the face, thighs and back as needed for flares. 03/01/2024 Active Start: 07-04-2023 Cream Base No.175 (Bulk) (1 source) Start: 07-04-2023 Cream Base No.175 (Bulk) Active 1 APPLIC TOPICAL .BIW July 04, 2023 12:00am cyclobenzaprine hydrochloride 5 mg oral tablet (20 sources) Muscle Relaxant Start: 02-17-2024 End: 12-12-2024 take 1 tablet by mouth three times daily as needed for muscle spasms cyclobenzaprine (Flexeril) 5 MG tablet Take 1 tablet (5 mg) by mouth 3 times daily as needed for muscle spasms. 30 tablet 12/13/2024 Active dicyclomine hydrochloride 10 mg oral capsule [...] above: Take 1 capsule by mo uth three times daily as needed (abdominal pain). [...] 12 hours. estradiol 0.1 mg/ml vaginal cream (13 sources) Estrogen Start: 4 End: 5 fluconazole 200 mg oral tablet (2 sources) Azole Antifungal Start: 4 End: 4 take 1 tablet [...] adjustment) Start: 09-15-2023 take 1 capsule by [facility] once daily FLUoxetine (PROzac) 20 MG [...] October 29, 2021 3:53pm Start: 05-08-2020 End: 08-03-2022 Fluoxetine 10 mg tablet Discontinued 5 mg [...] (FLONASE) 50 mcg/actuation nasal spray Use 1 [place] in each nostril once daily. Active Comment on above: Use 1 [place] in each nostril once daily. gabapentin 100 mg oral capsule (12 sources) Anti-epileptic Agent Start: 08-18-2024 take 1 capsule by mouth twice daily gabapentin (Neurontin) 100 MG capsule Indications: Neuropathy of right foot Take 1 capsule (100 mg) by mouth 2 times daily. 60 capsule 2 08/18/2024 Active Start: 07-21-2024 [facility] 1 [facility] daily gabapentin (Neurontin) 100 MG capsule Indications: Neuropathy of right foot Take 1 capsule (100 mg) by mouth Nightly. 30 capsule 07/21/2024 Active lidocaine 0.05 mg/mg medicated patch (10 sources) Antiarrhythmic, Amide Local Anesthetic Start: 02-17-2024 [...] tablet Discontinued 5 mg PO DAILY 30 May 01, 2022 9:50am August 13, 2022 [...] daily. 90 tablet 1 11/15/2024 Active Start: 12-18-2022 take 1 tablet by monet th once daily meloxicam (Mobic) 15 MG tablet Indications: Osteoarthritis of both knees, unspecified osteoarthritis type Take 1 tablet (15 mg) by mouth daily. 30 tablet 2 12/18/2022 Active Start: 04-01-2022 End: 06-03-2023 take 1 tablet by mouth every other day Meloxicam 15 mg tablet Discontinued 15 mg PO .every other day 15 September 01, 2022 2:06pm June 03, 2023 [...] to two largest meals of the day Xfpwtcei-Tnd-Tipn-Fa-V it K-Lut (Centrum Silver Women) 8 mg iron-400 mcg-50 mcg tablet (3 sources) Start: 11-07-19 take 1 tablet by mouth once daily Yqdyepow-Qvp-Vbor-Fa- Vit K-Lut (Centrum Silver Women) 8 mg iron-400 mcg-50 mcg tablet Active 1 TABLET PO DAILY November 05, 2022 11:00pm idbearscgjte-xrhz-rglw rals-folic acid (Centrum) chewable tablet (20 sources) multivitamin-iro n-min erals-folic acid (Centrum) chewable tablet Chew 1 tablet daily. Active multivitamin-iro h-pszehvps-qosxu acid (Centrum) chewable tablet Chew 1 tablet [...] on above: Take 1 capsule by [facility] daily for 5 days. ondansetron 4 mg oral tablet (20 sources) Serotonin-3 Receptor Antagonist Start: 01-17-2025 take 1 tablet by mouth every eight hours as needed for nausea and vomiting ondansetron (Zofran) 4 MG tablet Take 1 tablet (4 mg) by mouth every 8 hours as needed for nausea or vomiting. 20 tablet 01/17/2025 Active Start: 02-13-2024 take 1 tablet by [facility] three times daily as needed for nausea and vomiting Start: 10-18-2023 End: 10-18-2023 4 mg, IntraVENous, Once, On Wed10/18/23 at 1320, For 1 dose Start: 02-04-2022 End: 04-05-2024 take 1 tablet by mouth every eight hours as needed for nausea and vomiting Ondansetron 4 mg tablet,disintegrating Discontinued 4 mg PO Q8H as needed for nausea and vomiting 30 September 01, 2022 12:00am April 05, 2024 10:59am Start: 10-29-2021 End: 01-16-2025 take 1 tablet by mouth every eight hours Ondansetron Hcl 4 mg tablet Discontinued 4 mg PO Q8H October 29, 2021 12:00am November 05, 2021 11:30am Start: 12-31-2020 take 1 tablet by [facility] every eight hours as needed for nausea and nausea ondansetron orally disintegrating (ZOFRAN ODT) 4 mg disintegrating tablet Indications: Nausea Take 1 tablet by mouth every 8 hours as needed for nausea/vomiting. 30 tablet 1 12/31/2020 Active Comment on above: Take 1 tablet by [facility] every 8 hours as needed for nausea/vomiting. rosuvastatin calcium 5 mg oral tablet (3 sources) HMG-CoA Reductase Inhibitor Start: End: take 1 tablet by mouth once daily rosuvastatin (Crestor) 5 MG tablet Indications: Mixed hyperlipidemia Take 1 tablet (5 mg) by mouth daily. 30 tablet 12/13/2024 Active sucralfate 100 mg/ml oral suspension (17 sources) Aluminum Complex Start: take 1 g by mouth twice daily sucralfate (Carafate) 1 GM/10ML suspension Take 1 g by mouth 2 times daily. 05/02/2024 Active Start: 04-05-2024 take 1 mL by mouth twice daily trolamine salicylate 100 mg/ ml topical cream [...] sources) Penicillin-class Antibacterial Start: 05-08-19 End: 05-18-19 take 2 capsules by mouth twice daily [...] propionate 0.05 mg/actuat metered dose nasal spray (19 sources) Corticosteroid, Histamine-1 Receptor Antagonist Start: 07-10-2022 [...] vignesh y cholecalciferol (Vitamin D-3) 50 MCG (1999 UT) tablet Take 2,000 Units by mouth daily. Active codeine phosphate 2 mg/ml / guaiFENesin 20 mg/ml oral solution (19 sources) Opioid Agonist Start: 06-24-2022 End: 08-20-2022 [...] Cream Base No.175 (Bulk) (Versatile Rich) cream (10 sources) Start: 07-04-2023 End: 08-30-2024 Cream Base [...] 06, 2019 1:00am October 11, 2019 11:25am diclofenac sodium 20 mg/ml topical solution (2 sources) Nonsteroidal Anti-inflammatory Drug Start: 12-18-2022 End: 07-04-2023 Diclofenac Sodium (Pennsaid) 20 mg/gram /actuation(2 %) solution in metered-dose pump Discontinued 2 NMA TOPICAL TWICE A DAY as needed for Pain June 03, 2023 1:00am July 04, 2023 10:27am apply to left knee BID Diclofenac Sodium (Pennsaid) 20 mg/gram /actuation(2 %) [...] Discontinued 2 NMA TOPICAL TWICE A DAY December 18, 2022 [...] mg-mcg tablet Discontinued 1 TABLET PO daily 84 October 10, 2019 11:00pm May 08, 2020 [...] Start: 04-04-2018 End: 01-02-2019 Norgestimate-Ethinyl Estradi ol (Xcq-Li-Sfhhef) 0.18/0.215/0.25 mg-25 mcg tablet Discontinued 1 {tbl} PO DAILY 84 April 04, 2018 12:40pm January 02, 2019 9:23am Start: 04-04-2018 End: 01-02-2019 Norgestimate-Ethinyl Estradi ol (Ycn-Xx-Mzacbv) 0.18/0.215/0.25 mg-25 mcg tablet Discontinued 1 {tbl} PO DAILY April 04, 2018 12:40pm January 02, 2019 9:23am Start: 04-04-2018 End: 01-02-2019 take 1 tablet by mouth once daily Norgestimate-Ethinyl Estradiol (Vlv-Ef-Yhmzlx) 0.18/0.215/0.25 mg-25 mcg tablet Discontinued 1 TABLET PO DAILY April 04, 2018 11:40am January 02, 2019 8:23am Start: 04-04-2018 End: 01-02-2019 take 1 tablet by mouth once daily Norgestimate-Ethinyl Estradiol (Iwu-Az-Shwcpr) 0.18/0.215/0.25 mg-25 mcg tablet Discontinued 1 TABLET PO DAILY April 04, 2018 12:40pm January 02, 2019 9:23am Start: 03-15-2018 End: 04-04-2018 take 1 tablet by mouth once daily Norgestimate-Ethinyl Estradiol (Fab-Fi-Excjmu) 0.18/0.215/0.25 mg-25 mcg tablet Discontinued 1 TABLET PO DAILY March 15, 2018 10:59am April 04, 2018 12:41pm Start: 03-15-2018 End: 04-04-2018 Norgestimate-Ethinyl Estradi ol (Qee-Ch-Pugckk) 0.18/0.215/0.25 mg-25 mcg tablet Discontinued 1 {tbl} PO DAILY March 15, 2018 1:00am April 04, 2018 12:41pm Start: 03-15-2018 End: 04-04-2018 take 1 tablet by mouth once daily Norgestimate-Ethinyl Estradiol (Hhc-Ut-Trwszb) 0.18/0.215/0.25 mg-25 mcg tablet Discontinued 1 TABLET PO DAILY March 15, 2018 12:00am April 04, 2018 11:41am Start: 03-15-2018 End: 04-04-2018 take 1 tablet by mouth once daily Norgestimate-Ethinyl Estradiol (Xbi-Wa-Jnramx) 0.18/0.215/0.25 mg-25 mcg tablet Discontinued 1 TABLET [...] mg tablet Discontinued 180 mg PO DAILY December 24, 2021 12:00am June [...] 27, 2019 12:00am December 21, 2019 12:55pm Dbuwwwfkfgot-Tbpk-Uaoxz Acid (Centrum Complete) 18-400 mg-mcg tablet (12 sources) Start: 06-03-2023 End: 08-30-2024 Dhowvmfemkpb-Yctb-Wmlqk Acid (Centrum Complete) 18-400 mg-mcg tablet Discontinued 1 {tbl} PO DAILY June 03, 2023 1:00am August 30, 2024 10:04am Start: 06-03-2023 take 1 tablet by monet once daily Duhvucqldxfg-Fjrn-Zrbnh Acid (Centrum Complete) 18-400 mg-mcg tablet Active [...] 100 mg PO TWICE A DAY 14 December 21, 2019 12:00am May 08, 2020 [...] Start: 06-03-2022 take 1 capsule by [facility] daily omeprazole (PRILOSEC) 40 mg [...] on above: Take 1 capsule by mo ut twice daily. oxyCODONE hydrochloride 5 mg oral tablet (7 sources) Opioid Agonist Start: 4 End: 01-08-202 5 take 1 tablet by mouth every six hours as needed for pain Oxycodone 5 mg tablet Discontinued 5 mg PO EVERY 6 HOURS as needed for pain 12 3 0 February 13, 2024 April 05, 2024 11:00am Contusion of multiple sites Unspecified multiple injuries, initial encounter pantoprazole 20 mg delayed release oral tablet (20 sources) Proton Pump Inhibitor Start: 4 End: take 1 tablet by mouth twice daily [...] 4:54pm phentermine hydrochloride 37.5 mg oral tablet (20 sources) Sympathomimetic Amine Anorectic Start: 05-03-2023 End: 07-04-2023 take 1 tablet by mouth once daily Phentermine 37.5 mg tablet Discontinued 37.5 mg PO DAILY June 03, 2023 1:00am July 04, 2023 10:28am Comment on above: Take 1 tablet (37.5 mg) by mouth every morning (before breakfast). BMI 36.49 polyethylene glycol 3350 30259 mg powder for oral solution (20 sources) [...] For 1 dose technetium Tc-99m sulfur colloid ([employer]) radio-isotope solution 1.1 millicurie (2 sources) Start: 11-20-2022 End: 11-20-2022 technetium Tc-99m sulfur colloid (Nycomed-SC) radio-isotope solution 1.1 millicurie traMADol hydrochloride 50 mg oral tablet (18 sources) Opioid Agonist Start: 12-18-2022 End: 04-21-2023 [...] Discontinued triamcinolone acetonide 1 mg/ml topical cream (11 sources) Corticosteroid Start: 07-04-2023 End: 08-30-2024 Triamcinolone [...] hours Valacyclovir Discontinued 1000 MG PO Q8H 7 May 28, 2019 1:00am June 04, 2019 1:09am Problems Active Problems Problem Classification Problem Date Documented Da te Episodic/Chronic Abdominal pain (20 sources) Pain in pelvis; Translations: [Pelvic and perineal pain] Onset: 4 Episodic Acute bronchitis (20 sources) Acute viral bronchitis; Translations: [Acute bronchitis [...] or chronic] Episodic Disorders of lipid metabolism (17 sources) Raised low density lipoprotein cholesterol; Translations: [...] for screening for COVID-19] Episodic Intracranial injury (7 sources) Concussion injury of body structure; Translations: [Concussion] 02-22-2024 Episodic Menopausal disorders (12 sources) Atrophy of vagina; Translations: [Postmenopausal atrophic [...] Episodic Other diseases of bladder and urethra (12 sources) Lesion of bladder; Translations: [Bladder disorder, unspecified] 06-10-2023 Chronic Other diseases of bladder and urethra (3 sources) Bladder disorder, unspecified; Translations: [Unspecified disorder of bladder] 07-05-2023 Chronic Other diseases of kidney and ureters (3 sources) Hydronephrosis; Translations: [Other hydronephrosis] 10-15-2023 Episodic Other disorders of stomach and duodenum (15 sources) Gastroparesis syndrome; Translations: [Gastroparesis] 04-05-2024 Episodic [...] Onset: 3 03-24-2021 Chronic Other gastrointestinal disorders (10 sources) [...] gas pain] 07-17-2022 Episodic Other hematologic conditions (12 sources) Serum total protein abnormal; Translations: [Other specified abnormalities of plasma proteins] 05-18-2023 Episodic Comment on above: Chromogranin A Other injuries and conditions due to external causes (3 sources) Injury of left knee; Translations: [Unspecified injury of left lower leg, initial encounter] 12-16-2022 Episodic Other injuries and conditions due to external causes (7 sources) Contusion of multiple sites; Translations: [Unspecified multiple injuries, initial encounter] 02-22-2024 Episodic Other lower respiratory disease (20 sources) Cough; Translations: [Cough] Episodic Other lower respiratory disease (2 sources) Dyspnea; Translations: [Shortness of breath] Episodic Other lower respiratory disease (1 source) Cough; Translations: [Acute cough] 06-15-2022 Episodic Other lower respiratory disease (7 sources) Rib pain; Translations: [Pleurodynia] 02-25-2024 Episodic [...] lower leg] Episodic Other non-traumatic joint disorders (15 sources) Pain in left knee; Translations: [Left knee pain] 12-18-2022 Episodic Other non-traumatic joint disorders (7 sources) Pain in left shoulder; Translations: [Left shoulder pain] 11-05-2023 Episodic Other nutritional; endocrine; and metabolic disorders (20 sources) Obesity; Translations: [Obesity, unspecified] Onset: 8 03-21-2010 Chronic Other nutritional; endocrine; and metabolic disorders (20 sources) Cholesterol level - finding; Translations: [Lipoprotein deficiency] Onset: 1 10-16-2010 Chronic Other nutritional; endocrine; and metabolic disorders (12 sources) Body mass index (BMI) 35.0-35.9, adult; Translations: [Body Mass Index 35.0-35.9, adult] Onset: 5 Chronic Other nutritional; endocrine; and metabolic disorders (20 sources) Obesity caused by energy imbalance; Translations: [Other obesity due to excess calories] Onset: 8 05-03-2023 Chronic Other nutritional; endocrine; and metabolic disorders (2 sources) Obese class II; Translations: [Obesity, class 2] 2024 Chronic Other nutritional; endocrine; and metabolic disorders (2 sources) Body mass index 30+ - obesity; Translations: [Body mass index (BMI) 35.0-35.9, adult] 2024 Chronic Other nutritional; endocrine; and metabolic disorders (4 sources) Other obesity due to excess calories; [...] skin eruption] 07-21-2024 Episodic Other skin disorders (12 sources) Skin lesion; Translations: [Disorder of the skin and subcutaneous tissue, unspecified] 08-30-2024 Episodic Other upper respiratory disease (5 sources) Other specified disorders of nose and nasal sinuses; Translations: [Other disease of nasal cavity and sinuses] Episodic Other upper respiratory infections (20 sources) Acute maxillary sinusitis; Translations: [Acute maxillary sinusitis, unspecified] 10-29-2021 Episodic Ovarian cyst (9 sources) Cyst of ovary; Translations: [Unspecified ovarian cyst, left side] Onset: 4 02-18-2024 Episodic Residual codes; unclassified (19 sources) Family history of cancer of colon; Translations: [Family history of malignant neoplasm of digestive organs] 07-08-2022 Episodic Comment on above: PGM. father with waqas yps. She does screening every 5 years Residual codes; unclassified (17 sources) Postmenopausal state; Translations: [Asymptomatic menopausal state] 08-20-2022 Episodic Residual codes; unclassified (2 sources) Asymptomatic menopausal state; Translations: [Asymptomatic postmenopausal status (age-related) (natural)] 08-20-2022 Episodic Residual codes; unclassified (4 sources) FH: Cardiovascular disease; Translations: [Family history of ischemic heart disease and other diseases of the circulatory system] Onset: 5 2024 Episodic Residual codes; unclassified (2 sources) Family history of ischemic heart disease and other diseases of the circulatory system; Translations: [Family history of ischemic heart disease and other diseases of the circulatory system] Onset: 5 Episodic Rheumatoid arthritis and related disease (18 sources) Inflammatory polyarthropathy; Translations: [Inflammatory polyarthropathy] Onset: 4 12-22-2023 Chronic Screening and history of mental health and substance abuse codes (20 sources) H/O: anxiety state; Translations: [Personal history of other mental and behavioral disorders] 11-28-2019 Episodic Unclassified (2 sources) Obesity, class 2; Translations: [Obesity, class 2] [...] [Other fatigue] Onset: 02-09-2024 02-09-2024 Episodic Other acquired deformities (1 source) Unspecified deformity of right finger(s); Translations: [Unspecified deformity of right finger(s)] Onset: 10-12-2024 Episodic Other connective tissue disease (20 sources) [...] initial encounter] Onset: 11-04-2007 03-21-2010 Episodic Unclassified (2 sources) Obesity, class 2; Translations: [Obesity, class 2] Onset: 11-15-2024 Results Test Name Value Interpretation Reference Range Facility 36on 01-17-2025 36 Rx sent. Follow up a s scheduled. Normal [facility] 29on 01-15-2025 29 Addended by: CORNELL SHELTON on: 01/15/2025 08:43 AM Modules accepted: Orders Normal [facility] 36on 12-29-2024 36 LM for pt to return call or respond to the [employer] msg sent [facility] 36 12/29/24 Per Ashley Tapia, INTERFACE ANALYST - normal cardiac score-0 Normal [facility] CT CARDIAC SCORING WO IV CON TRASTon 2024 CT CARDIAC SCORING WO IV CONTRAST Interpreted By: Pankaj Rao, STUDY: CT CARDIAC SCORING WO IV CONTRAST; 2024 10:48 am INDICATION: Signs/Symptoms:Screening. COMPARISON: None. ACCESSION NUMBER(S): [id number] ORDERING CLINICIAN: ASHLEY GOMEZ TECHNIQUE: Using prospective ECG gating, CT scan of the coronary arteries was performed without intravenous contrast. Coronary calcium scoring was performed according to the method of Agatston. FINDINGS: The score and distribution of calcium in the coronary arteries is as follows: LM 0, LAD 0, LCx 0, RCA 0, Total 0 The visualized mid/lower ascending thoracic aorta, is normal in size, measuring 2.7 cm in diameter. The heart is normal in size. No pericardial effusion is present.Main pulmonary artery is normal in caliber. There is no evidence of lymphadenopathy or mass within the visualized mediastinum.The visualized esophagus is unremarkable. The visualized segments of the lungsare normally expanded. The visualized subdiaphragmatic structures demonstrate no remarkable findings. IMPRESSION: 1. Coronary artery calcium score of 0 *. *Coronary Artery Calcium Gated and Nongated Agatston score Score Risk 0 Very low 1-99 Mildly increased 100-299 Moderately increased >300 Moderate to severely increased Erin et al. JCCT 2016 (http://dx.doi.org/10.1016/ j.jcct.2016.11.003) MALDONADO 10-Year CHD Risk with Coronary Artery Calcification can be calculated using link below https://www.maldonado-nhlbi.org/ MESACHDRisk/MesaRiskScore/R iskScore.aspx Anila. JACC 2015 (http://dx.doi.org/10.1016/ j.j acc.2015.08.035) Signed by: Pankaj Rao 12/28/2024 12:53 PM Dictation workstation: [id number] [facility] 36on 12-20-2024 36 Labs received and pt notified of results Normal [facility] 36on 12-19-2024 36 Faxed to [facility] for lab results Normal [facility] 36on 12-18-2024 36 I am currently caugh t up on paperwork and have not received any lab results for Marcelino. Can we please reach out to [facility] for these? Thank you. Normal [facility] AST(SGOT)on 12-16-2024 AST [Catalytic activity/Vol] 22 U/L Normal <=31 [facility] Comment on above: Performed By: #### L 501.4100, L501.4405, L500.4100 #### [facility] [address] [place], [place], [id number] Alanine Aminotransferas (SGP T)on 12-16-2024 ALT [Catalytic activity/Vol] 17 U/L Normal <=34 [facility] Comment on above: Performed By: #### L 501.4100, L501.4405, L500.4100 #### [facility] [address] [facility] [place], [place], [id number] Calculated very low density lipoprotein (VLDL) cholesterol measurementOrdered By: Roseann Gee on 12-16-2024 Calculated very low density lipoprotein (VLDL) cholesterol measurement 20 mg/dL 5-40 [facility] LDL calc ser/plasOrdered By: Roseann Gee on 12-16-2024 Cholesterol in LDL [Mass/Vol] 74 mg/dL [facility] Comment on above: Bqyzkcfzsx=016-384 m g/dL & Higher Vbfp=389 mg/dL or greaterFriedwald Equation for LDL-C Laboratory - Chemistry and C hemistry - challengeOrdered By: Roseann Gee on 12-16-2024 AST [Catalytic activity/Vol] 22 U/L <32 [facility] Lipid Profileon 12-16-2024 CHOL:HDL 2.85 Normal [facility] Comment on above: Performed By: #### L 501.4100, L501.4405, L500.4100 #### [facility] [address] [place], [address] Cholesterol [Mass/Vol] 144 mg/dL Normal <=200 [facility] Comment on above: Result Comment: Chol esterol level, Desirable <200 mg/dL Borderline high cholesterol 200-239 mg/dL High cholesterol >=240 mg/dL Recommendations of the NCEP Adult Treatment Panel for the following risk-cutoff thresholds for the [place] population. Performed By: #### L 501.4100, L501.4405, L500.4100 #### [facility] [address] [place], [address] Cholesterol in HDL [Mass/Vol] 51 mg/dL Normal [facility] Comment on above: Result Comment: Makayla onal Cholesterol Education Program (NCEP) guidelines: <40 mg/dL: Low HDL-cholesterol (major risk factor for CHD) >= 60 mg/dL: High HDL-cholesterol (negative risk factor for CHD) HDL-cholesterol is affected by a number of factors, e.g. smoking, exercise, hormones, sex and age. Performed By: #### L 501.4100, L501.4405, L500.4100 #### [facility] [address] [place], [address] Cholesterol in LDL [Mass/Vol] 74 mg/dL Normal [facility] Comment on above: Result Comment: Bord tfdind=891-645 mg/dL Higher Vjcb=384 mg/dL or greater Friedwald Equation for LDL-C Performed By: #### L 501.4100, L501.4405, L500.4100 #### [facility] [address] [place], [address] Cholesterol in VLDL [Mass/Vol] 20 mg/dL Normal 5-40 [facility] Comment on above: Performed By: #### L 501.4100, L501.4405, L500.4100 #### [facility] [address] [place], [address] Triglyceride [Mass/Vol] 98 mg/dL Normal [facility] Comment on above: Result Comment: The drugs N-Acetylcysteine and Metamizole may falsely depress this assay. Normal range: <150 mg/dL Borderline High: 150-199 mg/dL High: 200-499 mg/dL Very High: >500 mg/dL Performed By: #### L 501.4100, L501.4405, L500.4100 #### [facility] [address] [place], [address] Screening total cholesterol/ high density lipoprotein (HDL) cholesterol ratioOrdered By: Roseann Gee on 12-16-2024 Cholesterol.total/Chol esterol in HDL [Mass ratio] 2.85 {ratio} [facility] Serum or plasma alanine issa otransferase (ALT) measurementOrdered By: Roseann Gee on 12-16-2024 ALT [Catalytic activity/Vol] 17 U/L <35 [facility] Serum or plasma cholesterol in HDL measurement (mass/volume)Ordered By: Roseann Gee on 12-16-2024 Cholesterol in HDL [Mass/Vol] 51 mg/dL >40 [facility] Comment on above: National Cholesterol Education Program (NCEP) guidelines:<40 mg/dL: Low HDL-cholesterol (major risk factor for CHD)>= 60 mg/dL: High HDL-cholesterol (negative risk factor for CHD)HDL-cholesterol is affected by a number of factors, e.g. smoking, exercise, hormones, sex and age. Serum or plasma cholesterol measurement (mass/volume)Ordered By: Rosaenn Gee on 12-16-2024 Cholesterol [Mass/Vol] 144 mg/dL <201 [facility] Comment on above: Cholesterol level, D esirable <200 mg/dLBorderline high cholesterol 200-239 mg/dLHigh cholesterol >=240 mg/dLRecommendations of the NCEP Adult Treatment Panel for the following risk-cutoff thresholds for the [place] population. Triglycerides measurementOrd ered By: Roseann Gee on 12-16-2024 Triglyceride [Mass/Vol] 98 mg/dL <199 [facility] Comment on above: The drugs N-Acetylcy steine and Metamizole may falsely depress this assay. Normal range: <150 mg/dLBorderline High: 150-199 mg/dLHigh: 200-499 mg/dLVery High: >500 mg/dL 36on 12-14-2024 36 Rx sent. Follow up a s scheduled. [place] [address] Prescription Request : fluticasone propionate 50 mcg/actuation nasal spray,suspension Last medication check: 05/17/24 Last physical exam: 11/15/24 Next scheduled appointment: 05/16/25 Last date of refill on this medication 05/28/24 ( qty 16 g refill 2) [place] [address]on 12-13-2024 36 Lvm pts vm. [place] [address] Thank you for verify ing. Rx sent for as needed Flexeril. Another 30-day supply was sent for the rosuvastatin and will refill according to repeat blood work when she is able to get this done. [place] [address] Noted. Agree with recommendations provided. Thank you. [place] [address] Pt states that she h ad been going to a urologist in [place] and that is where she had gotten this medication from. She states that she is now seeing Dr. Holden. I suggested that she try through his office to get this medication refilled and if they can't to let us know so we can see what can be done. [place] [address] Pt states that when she was in [...] location and they should have the orders. [place] [address] I do not see where w e have ever filled this prescription for Marcelino? Has she been getting this from another provider? [place] [address] I do not see where w e have ever filled this prescription for Marcelino. Has she been getting this from another provider? Normal [facility] 36 Prescription Request : cephalexin (Keflex) 250 MG capsule Last medication check: 05/17/24 Last physical exam: 11/15/24 Next scheduled appointment: 05/16/25 Last date of refill on this medication 04/07/23 historical provider [facility] 36 Prescription Request : cyclobenzaprine (Flexeril) 5 MG tablet Last medication check: 05/17/24 Last physical exam: 11/15/24 Next scheduled appointment: 05/16/25 Last date of refill on this medication 04/21/24 Historical Provider [facility] 36on 11-16-2024 36 Med and labs pended. Normal [facility] Office Visiton 11-15-2024 Follow-up visit [id number] Harriett Araiza 1975 F Date Provider Department Center 11/15/2024 38299-UJAWAASHLEY GOMEZ [facility] Family History Problem Relation Age of Onset [...] Grandmother Father Alive Brother Alive Level of Service:61301 [place] PERIODIC PREVENTIVE MED EST PATIENT 40-64YRS Reason for Visit and Comments: Annual Exam [83] Blood Work [232133] [facility] Progress Noteon 11-15-2024 Progress Note Patient verified by last name and . [facility] Progress Note [facility] [address] [facility] [phone] Marcelino Araiza is a 48 y.o. female [...] (around 05/18 (more content not included)... Normal [facility] 36on 10-23-2024 36 Last read by Marcelino Araiza at 10:31AM on 10/15/2024. Normal [facility] Gastroenterology Visit Repor ton 10-18-2024 Gastroenterology Visit Report [facility] Gastroenterology [address] [place] [address] OFFICE VISIT Date of Service: 10/18/24 MR#: [id number] Acct: [id number] Name: MARCELINO ARAIZA Rep #: [id number] : 1975 Provider: Tanna Tam DO Age/Sex: 48/F [place] [facility] Status: Signed Intake Vital Signs 02/17/24 18:22 [...] 4 mg PO TID PRN nausea and 02/12/ 4 10/18/24 Rx tablet vomiting #21 tabs [...] 3 current occupational status: employed current occupation: [employer]- Patient Liason sexually active: Yes Smoking [...] ? EGD 11.07.20 without visual abnormality ? (more content not included)... Normal [facility] Pelvic w/ Transvaginalon Pelvic w/ Transvaginal [facility] [address] [place] [address] Pelvic w/ Transvaginal MR#: [id number] Acct: [id number] Name: MARCELINO ARAIZA Rep #: [id number] : 1975 F 48 From: Vita Lind MD PCP: TEJINDER Le Status: REG CLI Study: Pelvic w/ Transvaginal Date of Exam: 10/18/24 Exam# [id number] Ordering Dr: Chrystal Conteh DO PROCEDURE: PELVIC [...] of malignancy). No follow-up recommended. Reading Location: [id number] CC: TEJINDER Gomez; Dr. Chrystal Conteh DO Decatizer: Signed Normal [facility] 36on 10-12-2024 36 [place] message sent to patient advising her of xray results. Normal [facility] Finger(s) Min 2 Viewson 09-26 Finger(s) Min 2 Views [facility] [address] [place] [address] Finger(s) Min 2 Views MR#: [id number] Acct: [id number] Name: MARCELINO ARAIZA Rep #: [id number] : 1975 F 48 From: Jimenez Burks MD PCP: TEJINDER Le Status: REG CLI Study: Finger(s) Min 2 Views Date of Exam: 10/09/24 Exam# [id number] Ordering Dr: ROSEANN GEE PROCEDURE: FINGER(S) MIN 2 VIEWS 10/09/2024 REASON FOR EXAM: INDEX FINGER MASS TECHNIQUE: FINGER(S) MIN 2 VIEWS COMPARISON: No FINDINGS: Mild osteoarthritic changes, interphalangeal joints, mainly small osteophyte formation, and juxta- articular soft tissue calcification.. No acute bone or soft tissue pathology. RAD/Finger(s) Min 2 Views IMPRESSION: Mild osteoarthritic changes Reading Location: [place] [address] CC: TEJINDER Gomez; ROSEANN GEE Decatizer: Signed Normal [facility] 36on 10-04-2024 36 Reviewed chart. Refi ll appropriate. RX sent. Normal [facility] 36 Prescription Request : Last medication check: 05/17/24 Last physical exam: 11/10/23 Next scheduled appointment: 11/15/24 Last date of refill on this medication 02/25/24 Normal [facility] PAP IG HPV APTIMA 16/18,45on 09-01-2024 ADEQ Comment Normal . [facility] Comment on above: Order Comment: Specnathaly pratt Comment: [id number] Comment: No. of containers..01 ThinPrep Vial Result Comment: Sati sfactory for evaluation. Endocervical and/or squamous metaplastic cells (endocervical component) are present. Performed By: #### L 7400.0280 ####[facility] [address] [place], [place], [id number] COMM . Normal . [facility] Comment on above: Order Comment: Corina pratt Comment: [id number] Comment: No. of containers..01 ThinPrep Vial Performed By: #### L 7400.0280 ####[facility] [address] [place], [place], [id number] COMMENT Comment Normal . [facility] Comment on above: Order Comment: Speci men Comment: [id number] Comment: No. of containers..01 ThinPrep Vial Result Comment: This liquid based ThinPrep(R) pap test was screened with the use of an image guided system. Performed By: #### L 7400.0280 ####[facility] [address] [place], [place], [address] DIAG Comment Abnormal . [facility] Comment on above: Order Comment: Speci men Comment: [id number] Comment: No. of containers..01 ThinPrep Vial Result Comment: EPIT HELIAL CELL ABNORMALITY. ATYPICAL SQUAMOUS CELLS OF UNDETERMINED SIGNIFICANCE (ASC-US). Performed By: #### L 7400.0280 ####[facility] [address] [place], [place], [phone] HPV APTIMA, HR Negative Normal Negative [facility] Comment on above: Order Comment: Speci men Comment: [id number] Comment: No. of containers..01 ThinPrep Vial Result Comment: This nucleic acid amplification test detects fourteen high- risk HPV types (16,18,31,33,35,39,45,51,52,56,58,59,66,68) without differentiation. Performed By: #### L 7400.0280 ####[facility] [address] [place], [place], [address] HPV Kate Rfx Comment Normal . [facility] Comment on above: Order Comment: Speci men Comment: [id number] Comment: No. of containers..01 ThinPrep Vial Result Comment: Crit eria not met, HPV Genotype not performed. Performed at: [facility] [address] [id number] Electrical Test Engineer: Alysa Angela MD, Phone: [phone] Performed at: = - [address] [id number] Electrical Test Engineer: Alysa Angela MD, Phone: [phone] Performed By: #### L 7400.0280 ####[facility] [address] [place], [place], [address] PAPSMR Comment Normal . [facility] Comment on above: Order Comment: [facility] Comment: [id number] Comment: No. of containers..01 ThinPrep Vial Result Comment: The Pap smear is a screening test designed to aid in the detection of premalignant and malignant conditions of the uterine cervix. It is not a diagnostic procedure and should not be used as the sole means of detecting cervical cancer. Both false-positive and false-negative reports do occur. Performed By: #### L 7400.0280 ####[facility] [address] [place], [address] Path.prov.IDC-9 Comment Normal . [facility] Comment on above: Order Comment: Speci men Comment: [id number] Comment: No. of containers..01 ThinPrep Vial Result Comment: R87. 610 Performed By: #### L 7400.0280 ####[facility] [address] [place], [address] PERFORM Comment Normal . [facility] Comment on above: Order Comment: Speci men Comment: [id number] Comment: No. of containers..01 ThinPrep Vial Result Comment: Aishwarya Bruno, [employer] Machine Operator (ASCP) Performed By: #### L 7400.0280 ####[facility] [address] [place], [address] SIGN Comment Normal . [facility] Comment on above: Order Comment: Speci men Comment: [id number] Comment: No. of containers..01 ThinPrep Vial Result Comment: Carol Martinez MD, Pathologist Performed By: #### L 7400.0280 ####[facility] [address] [place], [address] Pelvic w/ Transvaginalon Pelvic w/ Transvaginal [facility] [address] [place], [place] [address] Pelvic w/ Transvaginal MR#: [id number] Acct: [id number] Name: MARCELINO ARAIZA Rep #: [id number] : 1975 F 48 From: Jefry Mosley DO PCP: TEJINDER Le Status: REG CLI Study: Pelvic w/ Transvaginal Date of Exam: 09/01/24 Exam# [id number] Ordering Dr: Chrystal Conteh DO PROCEDURE: PELVIC [...] weeks. Uterus unremarkable as seen. Reading Location: [facility] CC: TEJINDER Gomez; Dr. Chrystal Conteh DO Decatizer: Signed Normal [facility] Cervical or vaginal specimen microscopic examination by liquid based cytology (reportOrdered By: Denise Duff on 08-30-2024 Cytology report Cyto stain.thin prep Doc (Cvx/Vag) Comment . [facility] Comment on above: Criteria not met, HP V Genotype not performed.Performed at: [address] [id number] Director: Alysa Angela MD, Phone: [phone] at: =[facility] [address] [id number] Director: Alysa Angela MD, Phone: [phone] Cervical or vagninal specime n microscopic examination by cytology stain (reported asOrdered By: Denise Duff on 08-30-2024 Cytology report Cyto stain Doc (Cvx/Vag) Comment . [facility] Comment on above: The Pap [...] DNA Probe+sig amp Ql (Cvx) Negative Negative [facility] Comment on above: This nucleic acid am plification test detects fourteen high- risk HPV types (16,18,31,33,35,39,45,51,52,56,58,59,66,68)without differentiation. Laboratory - CytologyOrdered By: Denise Duff on 08-30-2024 [employer] Operator Cyto stain Nom (Cvx/Vag) [ID] Comment . [facility] Comment on above: Aishwarya Bruno, Cytolo gist (ASCP) Pathologist Cyto stain Nom (Cvx/Vag) [ID] Comment . [facility] Comment on above: Aviva Martinez MD, P athologist Laboratory - Miscellaneous t estsOrdered By: Denise Duff on 08-30-2024 Service comment (Unsp spec) [Interp] . . [facility] No Panel InformationOrdered By: Denise Duff on 08-30-2024 Pap Smear Specimen Adequacy Comment . [facility] Comment on above: Satisfactory for garrett luation. Endocervical and/or squamous metaplasticcells (endocervical component) are present. Pathology report final diagnosis Narrative Comment . [facility] Comment on above: R87.610 [employer] Office Visit Reporton 08-30-2024 [employer] Office [facility] [address] [place] [address], [address] [place] [address] OFFICE VISIT Date of Service: 08/30/24 MR#: [id number] Acct: [id number] Name: MARCELINO ARAIZA Rep #: [id number] : 1975 Provider: TEJINDER Hamm Age/Sex: 48/F [place] [facility] [place] Status: Signed Intake Vital Signs 02/17/24 18:22 08/30/24 09:56 Height 5 ft 8 in 5 ft 8 in Weight: 242 lb 6 oz BMI 36.8 BP 97/61 Intake Visit 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 Normal [facility] Progress Noteon 08-18-2024 Progress Note 08/18/2024 [...] that they are currently in the [facility]. If the patient is a minor, [...] this note. Ashley Gomez APRN - ROSALIA 08/18/2024 1:22 PM Normal [facility] Progress Noteon 07-21-2024 Progress Note 07/21/2024 [...] stated that they are currently in the [facility]. If the patient is a minor, permission [...] TERE Chung CNP 07/21/2024 1:56 PM Normal [facility] Gastroenterology Visit Repor jayda 07-07-2024 Gastroenterology Visit Report [facility] Gastroenterology [address] [place] [address] OFFICE VISIT Date of Service: 07/07/24 MR#: [id number] Acct: [id number] Name: MARCELINO ARAIZA Rep #: [id number] : 1975 Provider: Tanna Tam DO Age/Sex: 48/F [place] [facility] [place] Status: Signed Intake Vital Signs 02/17/24 [...] 3 current occupational status: employed current occupation: [employer]- Patient Liason sexually active: Yes Smoking [...] FH paternal grandmo (more content not included)... [facility] 36on 05-26-2024 36 This was sent to [facility] on 05/22/24. [facility] 36 Prescription Request : Last medication check: 05/17/24 Last physical exam: 11/10/23 Next scheduled appointment: 11/15/24 Last date of refill on this medication 04/30/23 [facility] 36 Prescription Request : Last medication check: 05/17/24 Last physical exam: 11/10/23 Next scheduled appointment: 11/15/24 Last date of refill on this medication not found [facility] 36on 05-22-2024 36 Rx sent. Follow up a s scheduled. [facility] 36 Prescription Request : Last medication check: 05/17/24 Last physical exam: 11/10/23 Next scheduled appointment: 11/15/24 Last date of refill on this medication 12/08/23 90 and 1 refill [facility] Office Visiton 05-17-2024 Follow-up visit [id number] Harriett Araiza 1975 F Date Provider Department Center 05/17/2024 30701-DZYRQASHLEY VARGAS [facility] Family History Problem Relation Age of Onset Hypertension Mother Cancer Maternal Grandmother Cancer Paternal Grandfather Heart disease Paternal Grandmother Family Status - Relation Status Age at Mother Maternal Grandmother Paternal Grandfather Paternal Grandmother Level of Service:[address] [place] OFFICE/OUTPATIENT ESTABLISHED MOD MDM 30 MIN Reason for Visit and Comments: Blood Work [736956] Medication Check [0064369379] Anxiety [9] Depression [32] Hypertension [550419] GERD [625571] Obesity [0916299135] Vitamin D Deficiency [413] Health Maintenance [872] - Mammo- had done at [facility] Progress Noteon 05-17-2024 Progress Note 05/17/2024 Marcelino Araiza (: 1975) is a 48 y.o. female , Established patient, here for evaluation of the following chief complaint(s): Blood Work, Medication Check, Anxiety, Depression, Hypertension, GERD, Obesity, Vitamin D Deficiency, and Health Maintenance (Mammo- had done at [facility] ) ASSESSMENT/PLAN: 1. Vitamin D deficiency [...] and it was recommended she see a acute dialysis nurse- saw them in November. Will use Cyclobenzaprine [...] fever. Respiratory: (more content not included)... Normal [facility] Progress Note Patient verified by last name and . Normal [facility] 36on 05-15-2024 36 She is due to have h er cholesterol levels rechecked so I recommend she come to the office for her visit. Normal [facility] SCRN MAMM (CAD)W/SILVIO BILATo n 05-03-2024 SCRN MAMM (CAD)W/SILVIO BILAT [facility] Services [address] [place], [place] [address] SCRN MAMM (CAD)W/SILVIO BILAT MR#: [id number] Acct: [id number] Name: MARCELINO ARAIZA Rep #: [id number] : 1975 F 48 From: Shaquille mason MD PCP: TEJINDER Le Status: [facility] Study: SCRN MAMM (CAD)W/SILVIO BILAT Date of Exam: 08/20 Exam# [id number] Ordering Dr: Ashley Gomez NP FILTER PRESS OPERATOR-C PROCEDURE: SCRN MAMM (CAD)W/SILVIO BILAT REASON FOR [...] of the results by letter. Reading Location: [id number] CC: TEJINDER Gomez Decatizer: Signed Normal [facility] L/S Spine Min 4 Viewson 03-30 L/S Spine Min 4 Views [facility] Radiology [address] [place] [address] L/S Spine Min 4 Views MR#: [id number] Acct: [id number] Name: MARCELINO ARAIZA Rep #: [id number] : 1975 F 48 From: Sina Sanchez PCP: TEJINDER Le Status: DEP AMB Study: L/S Spine Min 4 Views Date of Exam: 04/21/24 Exam# [id number] Ordering Dr: Dina Ramos [id number] INDICATION: pain -- please do upright AP, [...] EST , CC: TEJINDER Gomez; JEANETH Pino Decatizer: Signed Normal [facility] Orthopedic Visit Reporton Orthopedic Visit Report [facility] [address] [place] [address] OFFICE VISIT Date of Service: 04/21/24 MR#: [id number] Acct: [id number] Name: MARCELINO ARAIZA Rep #: [id number] : 1975 Provider: JEANETH Pino Age/Sex: 48/F Location: [facility] Status: Signed Intake Vital Signs 02/17/24 18:22 [...] 3 current occupational status: employed current occupation: [employer]- Patient Liason sexually active: Yes Smoking [...] Details: This docu (more content not included)... [facility] 36on 04-17-2024 36 Sent via [employer]. [facility] 36 Doesn't look like gadiel has an active order in place. Can we place an order for her? Thanks! [place] [address]on 04-12-2024 36 Can we check with he r pharmacy please? Thank you. [place] [address] Should have refills available for all of these prescriptions. [facility] 36 Prescription Request : Last medication check: 06/18/23 Last physical exam: 11/10/23 Next scheduled appointment: 05/17/24 Last date of refill on this medication Wellbutrin 12/27/23, Prozac 20mg and 40mg 02/25/24, Meloxicam 02/28/24 [facility] Gastroenterology Visit Repor ton 04-05-2024 Gastroenterology Visit Report [facility] [address] [place] [address] OFFICE VISIT Date of Service: 04/05/24 MR#: [id number] Acct: [id number] Name: MARCELINO ARAIZA Rep #: [id number] : 1975 Provider: Tanna Tam DO Age/Sex: 48/F Location: [facility] Status: Signed Intake Vital Signs 07/14/23 [...] #600 mL 04/05/24 04/05/24 Rx suspension (Carafate) [facility] Medical History (Updated 04/05/24 @ 10:[address] Tanna Tam, ) Pelvic pain Left shoulder pain Osteoarthritis [...] 3 current occupational status: employed current occupation: [employer]- Patient Liason sexually active: Yes Smoking [...] up. FH paternal (more content not included)... [facility] 36on 03-09-2024 36 Prescription Request : Last medication check: 06/18/23 Last physical exam: 11/10/23 Next scheduled appointment: 05/17/24 Last date of refill on this medication 03/30/23 18g 2 refills [facility] 36on 02-28-2024 36 Reviewed chart. Refi ll appropriate. RX sent. [facility] 36 Prescription Request : Last medication check: 04/28/2023 Last physical exam: 11/10/2023 Next scheduled appointment: 05/17/2024 Last date of refill on this medication: 08/13/2023 [facility] Pelvic w/ Transvaginalon Pelvic w/ Transvaginal [facility] [address] [place] [address] Pelvic w/ Transvaginal MR#: [id number] Acct: [id number] Name: MARCELINO ARAIZA Rep #: [id number] : 1975 F 48 From: Shaquille mason MD PCP: TEJINDER Le Status: REG CLI Study: Pelvic w/ Transvaginal Date of Exam: 02/28/24 Exam# [id number] Ordering Dr: Chrystal Conteh DO [id number] STUDY: ULTRASOUND OF THE FEMALE PELVIS - [...] 14:54 EST Reading Location ID and State: [address] [place] [address] , Service support , CC: TEJINDER Gomez; Dr. Chrystal Conteh DO Decatizer: Signed Normal [facility] Urinalysis, Completeon 02-27 BACTERIA Normal None Seen [facility] Comment on above: Order Comment: COLLE CTOR TO SPECIFY Result Comment: CROS SED OVER BY REGISTRATION, NO SPECIMEN COLLECTED. CATIE FROM OFFICE LAB IS GORAN HAVE OFFICE PUT THE ORDERS BACK IN. Performed By: #### L 400.0001 ####[facility] [address] [place], [address] BILIRUBIN URINE Normal Negative [facility] Comment on above: Order Comment: COLLE CTOR TO SPECIFY Result Comment: CROS SED OVER BY REGISTRATION, NO SPECIMEN COLLECTED. CATIE FROM OFFICE LAB IS GONNA HAVE OFFICE PUT THE ORDERS BACK IN. Performed By: #### L 400.0001 ####[facility] [address] [place], [address] Clarity (U) Normal Clear [facility] Comment on above: Order Comment: COLLE CTOR TO SPECIFY Result Comment: CROS SED OVER BY REGISTRATION, NO SPECIMEN COLLECTED. CATIE FROM OFFICE LAB IS GONNA HAVE OFFICE PUT THE ORDERS BACK IN. Performed By: #### L 400.0001 ####[facility] [address] [place], [address] Color (U) Normal Yellow [facility] Comment on above: Order Comment: COLLE CTOR TO SPECIFY Result Comment: CROS SED OVER BY REGISTRATION, NO SPECIMEN COLLECTED. CATIE FROM OFFICE LAB IS GONNA HAVE OFFICE PUT THE ORDERS BACK IN. Performed By: #### L 400.0001 ####[facility] [address] [place], [address] EPI,SQUAMOUS Normal 5-10 [facility] Comment on above: Order Comment: COLLE CTOR TO SPECIFY Result Comment: CROS SED OVER BY REGISTRATION, NO SPECIMEN COLLECTED. CATIE FROM OFFICE LAB IS GONNA HAVE OFFICE PUT THE ORDERS BACK IN. Performed By: #### L 400.0001 ####[facility] [address] [place], [address] GLUCOSE, UR Normal Normal [facility] Comment on above: Order Comment: COLLE CTOR TO SPECIFY Result Comment: CROS SED OVER BY REGISTRATION, NO SPECIMEN COLLECTED. CATIE FROM OFFICE LAB IS GONNA HAVE OFFICE PUT THE ORDERS BACK IN. Performed By: #### L 400.0001 ####[facility] [address] [place], [address] KETONE UR Normal Negative [facility] Comment on above: Order Comment: COLLE CTOR TO SPECIFY Result Comment: CROS SED OVER BY REGISTRATION, NO SPECIMEN COLLECTED. CATIE FROM OFFICE LAB IS GONNA HAVE OFFICE PUT THE ORDERS BACK IN. Performed By: #### L 400.0001 ####[facility] [address] [place], [address] LEUK ESTERASE Normal Negative [facility] Comment on above: Order Comment: COLLE CTOR TO SPECIFY Result Comment: CROS SED OVER BY REGISTRATION, NO SPECIMEN COLLECTED. CATIE FROM OFFICE LAB IS GONNA HAVE OFFICE PUT THE ORDERS BACK IN. Performed By: #### L 400.0001 ####[facility] [address] [place], [address] Mucus Ql (Urine sed) Normal [facility] Comment on above: Order Comment: COLLE CTOR TO SPECIFY Result Comment: CROS SED OVER BY REGISTRATION, NO SPECIMEN COLLECTED. CATIE FROM OFFICE LAB IS GONNA HAVE OFFICE PUT THE ORDERS BACK IN. Performed By: #### L 400.0001 ####[facility] [address] [place], [address] Nitrite Ql (U) Normal Negative [facility] Comment on above: Order Comment: COLLE CTOR TO SPECIFY Result Comment: CROS SED OVER BY REGISTRATION, NO SPECIMEN COLLECTED. CATIE FROM OFFICE LAB IS GONNA HAVE OFFICE PUT THE ORDERS BACK IN. Performed By: #### L 400.0001 ####[facility] [address] [place], [address] OCCULT BLOOD-UR Normal Negative [facility] Comment on above: Order Comment: COLLE CTOR TO SPECIFY Result Comment: CROS SED OVER BY REGISTRATION, NO SPECIMEN COLLECTED. CATIE FROM OFFICE LAB IS GONNA HAVE OFFICE PUT THE ORDERS BACK IN. Performed By: #### L 400.0001 ####[facility] [address] [place], [address] pH UR Normal 5.0 - 8.0 [facility] Comment on above: Order Comment: COLLE CTOR TO SPECIFY Result Comment: CROS SED OVER BY REGISTRATION, NO SPECIMEN COLLECTED. CATIE FROM OFFICE LAB IS GONNA HAVE OFFICE PUT THE ORDERS BACK IN. Performed By: #### L 400.0001 ####[facility] [address] [place], [address] PROT DIPSTX Normal Negative [facility] Comment on above: Order Comment: COLLE CTOR TO SPECIFY Result Comment: CROS SED OVER BY REGISTRATION, NO SPECIMEN COLLECTED. CATIE FROM OFFICE LAB IS GONNA HAVE OFFICE PUT THE ORDERS BACK IN. Performed By: #### L 400.0001 ####[facility] [address] [place], [address] RBC Normal 0-5 [facility] Comment on above: Order Comment: COLLE CTOR TO SPECIFY Result Comment: CROS SED OVER BY REGISTRATION, NO SPECIMEN COLLECTED. CATIE FROM OFFICE LAB IS GONNA HAVE OFFICE PUT THE ORDERS BACK IN. Performed By: #### L 400.0001 ####[facility] [address] [facility] [address] SP.GR. DIPSTX Normal 1.002-1.03 0 [facility] Comment on above: Order Comment: COLLE CTOR TO SPECIFY Result Comment: CROS SED OVER BY REGISTRATION, NO SPECIMEN COLLECTED. CATIE FROM OFFICE LAB IS GONNA HAVE OFFICE PUT THE ORDERS BACK IN. Performed By: #### L 400.0001 ####[facility] [address] [facility] [address] UR Preservative Normal [facility] Comment on above: Order Comment: COLLE CTOR TO SPECIFY Result Comment: CROS SED OVER BY REGISTRATION, NO SPECIMEN COLLECTED. CATIE FROM OFFICE LAB IS GONNA HAVE OFFICE PUT THE ORDERS BACK IN. Performed By: #### L 400.0001 ####[facility] [address] [facility] [address] UROBILI Normal Normal [facility] Comment on above: Order Comment: COLLE CTOR TO SPECIFY Result Comment: CROS SED OVER BY REGISTRATION, NO SPECIMEN COLLECTED. CATIE FROM OFFICE LAB IS GONNA HAVE OFFICE PUT THE ORDERS BACK IN. Performed By: #### L 400.0001 ####[facility] [address] [place] [id number] WBC Normal 0-5 [facility] Comment on above: Order Comment: COLLE CTOR TO SPECIFY Result Comment: CROS SED OVER BY REGISTRATION, NO SPECIMEN COLLECTED. CATIE FROM OFFICE LAB IS LANDYIMMANUEL HAVE OFFICE PUT THE ORDERS BACK IN. Performed By: #### L 400.0001 ####[facility] [address] [place], [place], [address] Progress Noteon 02-25-2024 Progress Note 02/25/2024 Marcelino [...] stated that they are currently in the [facility]. If the patient is a minor, permission [...] of 60 mg, Starting 02/25/2024, Normal - Not as well controlled. Will [...] visit for follow up on her fatigue. Comfort this may be related to her Prozac [...] Gomez APRN - ROSALIA 02/25/2024 10:00 AM [facility] 36on 02-17-2024 36 Patient called and w gladysld like a response NOLVIA, states she is having LUQ pain, nausea, back pain, dizziness. Took zofran but she isn't sure if it helped or not. I let her know I will send this to Dr. Hurt for review since Ashley is out and Lucina is still seeing patients. She asked if she needs a CT of the abdomen? Normal [facility] Abdomen/Pelvis W IV Cont ONL Yon 02-17-2024 Abdomen/Pelvis W IV Cont ONLY [facility] Imaging Services [address] [place], [place] [address] Abdomen/Pelvis W IV Cont ONLY MR#: [id number] Acct: [id number] Name: MARCELINO ARAIZA Rep #: [id number] : 1975 F 48 From: Yung Sanchez PCP: sAhley Gomez NP-C Status: REG ER Study: Abdomen/Pelvis W IV Cont ONLY Date of Exam: Exam# [id number] Ordering Dr: Deuce Hernadez DO [id number] INDICATION: fall, ecchymosis to abd anterior. Additional [...] Casillas, et al. (2019). Simple adnexal cysts: [facility] consensus conference update on follow-up and reporting. Radiology, 293(2), [phone]?371. [email or web address]/rad [email or web address] Electronically Signed: Yung Penaloza MD at 21:17 [facility] , CC: TEJINDER Gomez; Dr. Deuce Hernadez DO Decatizer: Signed Normal [facility] CBC W/Diff, Automatedon 11-2 Absolute Lymph 2.17 X10 3/uL Normal 0.83-4.51 [facility] Comment on above: Performed By: #### L 501.2450, L500.4050, L100.0100 ####[facility] [address] [place], [address] Absolute Neut 3.8 X10 3/uL Normal 2.0-7.7 [facility] Comment on above: Performed By: #### L 501.2450, L500.4050, L100.0100 ####[facility] [address] [place], [address] Basophils/100 WBC (Bld) 1.0 % Normal 0-1 [facility] Comment on above: Performed By: #### L 501.2450, L500.4050, L100.0100 ####[facility] [address] [place], [address] Eosinophils/100 WBC (Bld) 1.3 % Normal 0-5 [facility] Comment on above: Performed By: #### L 501.2450, L500.4050, L100.0100 ####[facility] [address] [place], [address] Erythrocyte distribution width (RBC) [Ratio] 11.9 % Normal 11.6-14.6 [facility] Comment on above: Performed By: #### L 501.2450, L500.4050, L100.0100 ####[facility] [address] [place], [address] Hematocrit (Bld) [Volume fraction] 40.1 % Normal 37-47 [facility] Comment on above: Performed By: #### L 501.2450, L500.4050, L100.0100 ####[facility] [address] [place], [address] Hemoglobin (Bld) [Mass/Vol] 13.9 g/dL Normal 12.0-15.0 [facility] Comment on above: Performed By: #### L 501.2450, L500.4050, L100.0100 ####[facility] [address] [place], [address] IG% 0.100 Normal 0.0-0.9 [facility] Comment on above: Result Comment: IG% - Immature Granulocytes (promyelocytes, myelocytes and metamyelocytes) > 1% indicates that a LEFT SHIFT is Present. Performed By: #### L 501.2450, L500.4050, L100.0100 ####[facility] [address] [place], [address] Lymphocytes/100 WBC (Bld) 32.3 % Normal 19-41 [facility] Comment on above: Performed By: #### L 501.2450, L500.4050, L100.0100 ####[facility] [address] [place], [address] MCH (RBC) [Entitic mass] 31.4 pg Normal 27.0-32.0 [facility] Comment on above: Performed By: #### L 501.2450, L500.4050, L100.0100 ####[facility] [address] [place], [address] MCHC (RBC) [Mass/Vol] 34.7 g/dL Normal 32-36 [facility] Comment on above: Performed By: #### L 501.2450, L500.4050, L100.0100 ####[facility] [address] [place], [address] MCV (RBC) [Entitic vol] 90.7 fL Normal 81-99 [facility] Comment on above: Performed By: #### L 501.2450, L500.4050, L100.0100 ####[facility] [address] [place], [address] Monocytes/100 WBC (Bld) 8.6 % Normal 0-10 [facility] Comment on above: Performed By: #### L 501.2450, L500.4050, L100.0100 ####[facility] [address] [place], [address] Neutrophils/100 WBC (Bld) 56.7 % Normal 47-70 [facility] Comment on above: Performed By: #### L 501.2450, L500.4050, L100.0100 ####[facility] [address] [place], [address] Nucleated RBC (Bld) [#/Vol] 0 10*3/uL Normal 0-5 [facility] Comment on above: Performed By: #### L 501.2450, L500.4050, L100.0100 ####[facility] [address] [place], [address] Platelet mean volume (Bld) [Entitic vol] 9.7 fL Normal 6.2-12.0 [facility] Comment on above: Performed By: #### L 501.2450, L500.4050, L100.0100 ####[facility] [address] [place], [address] Platelets (Bld) [#/Vol] 290 10*3/uL Normal 150-450 [facility] Comment on above: Performed By: #### L 501.2450, L500.4050, L100.0100 ####[facility] [address] [place], [address] RBC (Bld) [#/Vol] 4.42 10*6/uL Normal 4.2-5.4 [facility] Comment on above: Performed By: #### L 501.2450, L500.4050, L100.0100 ####[facility] [address] [place], [address] RDW SD 39.7 fl Normal 35.1-43.9 [facility] Comment on above: Performed By: #### L 501.2450, L500.4050, L100.0100 ####[facility] [address] [place], [address] WBC (Bld) [#/Vol] 6.7 10*3/uL Normal 4.4-11.0 [facility] Comment on above: Performed By: #### L 501.2450, L500.4050, L100.0100 ####[facility] [address] [place], [address] Chest without Contraston Chest without Contrast [facility] Services [address] [place], [place] [address] Chest without Contrast MR#: [id number] Acct: [id number] Name: MARCELINO ARAIZA Rep #: [id number] : 1975 F 48 From: Yung Sanchez PCP: TEJINDER Le Status: REG ER Study: Chest without Contrast Date of Exam: 02/17/24 Exam# [id number] Ordering Dr: Deuce Hernadez DO [id number] INDICATION: fall rib pain right EXAMINATION: CT [...] CC: TEJINDER Gomez; Dr. Deuce Hernadez DO Decatizer: Signed Normal [facility] Comprehensive Metabolic Prof ilon 02-17-2024 Albumin [Mass/Vol] 3.8 g/dL Normal 3.2-5.0 [facility] Comment on above: Performed By: #### L 501.2450, L500.4050, L100.0100 ####[facility] [address] [place], [address] Albumin/Globulin [Mass ratio] 1.1 {ratio} Normal 0.9-2.4 [facility] Comment on above: Performed By: #### L 501.2450, L500.4050, L100.0100 ####[facility] [address] [place], [address] ALK P 78 U/L Normal 45-117 [facility] Comment on above: Performed By: #### L 501.2450, L500.4050, L100.0100 ####[facility] [address] [place], [address] ALT [Catalytic activity/Vol] 23 U/L Normal 13-56 [facility] Comment on above: Performed By: #### L 501.2450, L500.4050, L100.0100 ####[facility] [address] [place], [address] AST [Catalytic activity/Vol] 17 U/L Normal 15-37 [facility] Comment on above: Performed By: #### L 501.2450, L500.4050, L100.0100 ####[facility] [address] [place], [address] Bilirubin [Mass/Vol] 0.30 mg/dL Normal 0.20-1.00 [facility] Comment on above: Result Comment: For patients on eltrombopag therapy, use of Dimension [place] TBIL is not recommended. Performed By: #### L 501.2450, L500.4050, L100.0100 ####[facility] [address] [place], [address] BUN/CRE 23.3 RATIO High 10-20 [facility] Comment on above: Performed By: #### L 501.2450, L500.4050, L100.0100 ####[facility] [address] [place], [address] CA,Total 9.3 mg/dL Normal 8.5-10.1 [facility] Comment on above: Performed By: #### L 501.2450, L500.4050, L100.0100 ####[facility] [address] [place], [address] Chloride [Moles/Vol] 102 mmol/L Normal 98-107 [facility] Comment on above: Performed By: #### L 501.2450, L500.4050, L100.0100 ####[facility] [address] [place], [address] CO2 [Moles/Vol] 27.0 mmol/L Normal 21.0-32.0 [facility] Comment on above: Performed By: #### L 501.2450, L500.4050, L100.0100 ####[facility] [address] [place], [address] Creatinine [Mass/Vol] 0.77 mg/dL Normal 0.55-1.02 [facility] Comment on above: Result Comment: The validity of the calculated GFR GFRAA in patients over 70 years has not been determined. Clinical correlation is essential. Performed By: #### L 501.2450, L500.4050, L100.0100 ####[facility] [address] [place], [address] ECRCL 118.65 ml/min Normal [facility] Comment on above: Performed By: #### L 501.2450, L500.4050, L100.0100 ####[facility] [address] [place], [address] EST GFR - AA 103 mL/min Normal >60 [facility] Comment on above: Result Comment: Afri can Faroese GFR Calc Performed By: #### L 501.2450, L500.4050, L100.0100 ####[facility] [address] [place], [address] GAP 6 Normal 5-15 [facility] Comment on above: Performed By: #### L 501.2450, L500.4050, L100.0100 ####[facility] [address] [place], [address] GFR/1.73 sq M.predicted among non-blacks MDRD (S/P/Bld) [Vol rate/Area] 85 mL/min/{1.73_m2} Normal >60 [facility] Comment on above: Result Comment: Non- GFR Calc Performed By: #### L 501.2450, L500.4050, L100.0100 ####[facility] [address] [place], [address] Globulin (S) [Mass/Vol] 3.6 g/dL Normal 2.2-4.2 [facility] Comment on above: Performed By: #### L 501.2450, L500.4050, L100.0100 ####[facility] [address] [place], [address] Glucose [Mass/Vol] 85 mg/dL Normal 74-106 [facility] Comment on above: Performed By: #### L 501.2450, L500.4050, L100.0100 ####[facility] [address] [place], [address] Potassium [Moles/Vol] 3.8 mmol/L Normal 3.5-5.1 [facility] Comment on above: Performed By: #### L 501.2450, L500.4050, L100.0100 ####[facility] [address] [place], [address] Sodium [Moles/Vol] 135 mmol/L Low 136-145 [facility] Comment on above: Performed By: #### L 501.2450, L500.4050, L100.0100 ####[facility] [address] [place], [address] T PROT 7.4 g/dL Normal 6.4-8.2 [facility] Comment on above: Performed By: #### L 501.2450, L500.4050, L100.0100 ####[facility] [address] [place], [address] Urea nitrogen [Mass/Vol] 18 mg/dL Normal 7-18 [facility] Comment on above: Performed By: #### L 501.2450, L500.4050, L100.0100 ####[facility] [address] [place], [address] Emergency Department Summary on 02-17-2024 Emergency Department Summary [facility] Medical Records Department [address] [place] [address] Emergency Department Summary 02/17/24 MR#: [id number] Acct: [id number] Name: MARCELINO ARAIZA Rep #: [id number] : 1975 48 From: Deuce Hernadez DO [...] abdomen. Patient denies any blood thinning medications. [facility] Medical History Left shoulder pain Osteoarthritis of [...] cholecystectomy So (more content not included)... Normal [facility] Lipaseon 02-17-2024 Lipase [Catalytic activity/Vol] 38 U/L Normal 13-75 [facility] Comment on above: Result Comment: Edmund alvarez note: LIPASE revised reference range effective 22. New Lipase methodology. Expected to produce lower values than the previous assay method. NEW Reference Range: 13 - 75 U/L Performed By: #### L 501.2450, L500.4050, L100.0100 ####[facility] [address] [place], [address] Urinalysis, Completeon 02-16 BACTERIA 1+ /hpf Normal None Seen [facility] Comment on above: Order Comment: CLEAN CATCH Performed By: #### L 400.0001 ####[facility] [address] [place], [address] EPI,SQUAMOUS 0-5 SEEN Normal 5-10 [facility] Comment on above: Order Comment: CLEAN CATCH Performed By: #### L 400.0001 ####[facility] [address] [place], [address] Mucus Ql (Urine sed) 1+ /hpf Normal [facility] Comment on above: Order Comment: CLEAN CATCH Performed By: #### L 400.0001 ####[facility] [address] [place], [address] RBC 0-5 SEEN Normal 0-5 [facility] Comment on above: Order Comment: CLEAN CATCH Performed By: #### L 400.0001 ####[facility] [address] [place], [address] WBC 0-5 SEEN Normal 0-5 [facility] Comment on above: Order Comment: CLEAN CATCH Performed By: #### L 400.0001 ####[facility] [address] [place], [address] Brain/Head without Contrasto n 02-13-2024 Brain/Head without Contrast [facility] Services [address] [place] [address] Brain/Head without Contrast MR#: [id number] Acct: [id number] Name: MARCELINO ARAIZA Rep #: [id number] : 1975 F 48 From: Sadie Sanchez PCP: TEJINDER Le Status: REG ER Study: Brain/Head without Contrast Date of Exam: 01/27 10/19 Exam# [id number] Ordering Dr: Chapincito De La Rosa DO [id number] INDICATION: head injury EXAMINATION: CT BRAIN - [...] Contrast IMPRESSION: No acute abnormality. Electronically Signed: Sadei Leroy MD at 23:42 EST , CC: TEJINDER Gomez; Chapincito De La Rosa DO Decatizer: Signed Normal [facility] Emergency Department Summary on 02-13-2024 Emergency Department Summary [facility] Medical Records Department [address] [place] [address] Emergency Department Summary 02/13/24 MR#: [id number] Acct: [id number] Name: MARCELINO ARAIZA Rep #: [id number] : 1975 48 From: Chapincito De La [...] trauma/injury and therefore comes in for evaluation [facility] Medical History (Updated 02/16/24 @ 04:31 by [...] 3 current occupational status: employed current occupation: [employer]- Patient Liason sexually active: Yes Smoking Status: Never s (more content not included)... Normal [facility] Progress Noteon 02-09-2024 Progress Note 02/09/2024 Marcelnio Araiza (: 1975) is a 48 [...] stated that they are currently in the [facility]. If the patient is a minor, permission [...] Gomez APRN - ROSALIA 02/09/2024 1:05 PM Normal [facility] Progress Note Patient verified by last name and . Normal [facility] CCP ANTIBODY IGGOrdered By: Zulma Russo on 12-23-2023 Cyclic citrullinated peptide IgG Qn NINF [facility] Cyclic citrullinated peptide IgG QnOrdered By: Zulma Russo on 12-23-2023 CCP Antibody IgG Qualitative Negative Negative [facility] Interpretation and review of laboratory results Normal [facility] This test is used as aid in diagnosis of Rheumatoid arthritis (RA). A negative result cannot rule out RA where clinically suspected. Clinical correlation is required. The following results were obtained with an [employer] CCP IgG SWETHA. Cyclic Citrullinated Peptide IgG values obtained with different manufacturers' assay methods may not be used interchangeably. The magnitude of the reported IgG levels cannot be correlated to an endpoint titer. [facility] C-REACTIVE PROTEINon 024 CRP [Mass/Vol] mg/dL NINF - 0.9 mg/dL [facility] CNOVon 12-22-2023 CNOV Office Visit (RHEUMN ) MARCELINO ARAIZA ([id number]) 1975 F Date Time Provider Department 12/22/23 9:00 AM [facility] During your visit today, we recorded the [...] reports she used to work in a [employer] for 5 years in the past and [...] 5 mg (more content not included)... Normal [facility] CRP SerPl-mCncon 12-22-2023 CRP [Mass/Vol] mg/L Normal <0.9 [facility] Comment on above: Order Comment: Speci men Type: BLOOD SPECIMEN Ordering Facility: [facility] Address: [address] [place] [address] Performed By: #### 1 1571-07, 1987-07, 68805-0 #### [facility] CLIA [id number] [address] [place] [address] [place] Comprehensive metabolic 2000 panelon 12-22-2023 Albumin [Mass/Vol] 4.4 g/dL 3.9 - 4.9 g/dL [facility] ALP [Catalytic activity/Vol] 94 U/L 34 - 123 U/L [facility] ALT [Catalytic activity/Vol] 15 U/L 7 - 38 U/L [facility] Anion gap [Moles/Vol] 12 mmol/L 8 - 15 mmol/L [facility] AST [Catalytic activity/Vol] 18 U/L 13 - 35 U/L [facility] Bilirubin [Mass/Vol] 0.5 mg/dL 0.2 - 1 .3 mg/dL [facility] Calcium [Mass/Vol] 9.3 mg/dL 8.5 - 10. 2 mg/dL [facility] Chloride [Moles/Vol] 101 mmol/L 98 - 10 7 mmol/L [facility] CO2 [Moles/Vol] 25 mmol/L 22 - 30 mmol/L [facility] Creatinine [Mass/Vol] 0.74 mg/dL 0.58 - 0.96 mg/dL [facility] GFR/1.73 sq M.predicted among non-blacks MDRD (S/P/Bld) [Vol rate/Area] 101 mL/min/{1.73_m2} - PINF [facility] Comment on above: Estimated Glomerular Filtration [...] [Mass/Vol] 95 mg/dL 74 - 99 mg/dL [facility] Comment on above: The [place] Diab[employer] s Association (ADA) provides guidance for [...] Standards of Medical Care in Diabetes 2016, [place] [employer]. Diabetes Care. 2016.39(Suppl 1). Potassium [Moles/Vol] 4.6 mmol/L 3.7 - 5.1 mmol/L [facility] Protein [Mass/Vol] 7.2 g/dL 6.3 - 8.0 g/dL [facility] Sodium [Moles/Vol] 138 mmol/L 136 - 144 mmol/L [facility] Urea nitrogen [Mass/Vol] 12 mg/dL 7 - 21 mg/dL [facility] Albumin [Mass/Vol] 4.4 g/dL Normal 3.9-4.9 [facility] Comment on above: Order Comment: Speci men Type: BLOOD SPECIMEN Ordering Facility: [facility] Address: [address] [place] [address] Performed By: #### 1 1571-07, 1987-07, #### [facility] CLIA [id number] [address] [place], [place] [id number] [place] ALP [Catalytic activity/Vol] 94 U/L Normal 34-123 [facility] Comment on above: Order Comment: Speci men Type: BLOOD SPECIMEN Ordering Facility: [facility] Address: [address] [place] [address] Performed By: #### 1 1571-07, 1987-07, #### [facility] CLIA [id number] [address] [place] [address] [place] ALT [Catalytic activity/Vol] 15 U/L Normal 7-38 [facility] Comment on above: Order Comment: Speci men Type: BLOOD SPECIMEN Ordering Facility: [facility] Address: [address] [place] [address] Performed By: #### 1 1571-07, 1987-07, #### [facility] CLIA [id number] [address] [place], [place] [id number] [place] Anion gap [Moles/Vol] 12 mmol/L Normal 8-15 [facility] Comment on above: Order Comment: Speci men Type: BLOOD SPECIMEN Ordering Facility: [facility] Address: [address] [place] [address] Performed By: #### 1 1571-07, 1987-07, #### [facility] CLIA [id number] [address] [place], [place] [id number] [place] AST [Catalytic activity/Vol] 18 U/L Normal 13-35 [facility] Comment on above: Order Comment: Speci men Type: BLOOD SPECIMEN Ordering Facility: [facility] Address: [address] [place] [address] Performed By: #### 1 1571-07, 1987-07, #### [facility] CLIA [id number] [address] [place] [address] [place] Bilirubin [Mass/Vol] 0.5 mg/dL Normal 0.2-1.3 [facility] Comment on above: Order Comment: Speci men Type: BLOOD SPECIMEN Ordering Facility: [facility] Address: [address] [place] [address] Performed By: #### 1 1571-07, 1987-07, #### [facility] CLIA [id number] [address] [place] [address] [place] Calcium [Mass/Vol] 9.3 mg/dL Normal 8.5-10.2 [facility] Comment on above: Order Comment: Speci men Type: BLOOD SPECIMEN Ordering Facility: [facility] Address: [address] [place] [address] Performed By: #### 1 1571-07, 1987-07, #### [facility] CLIA [id number] [address] [place] [address] [place] Chloride [Moles/Vol] 101 mmol/L Normal 98-107 [facility] Comment on above: Order Comment: Speci men Type: BLOOD SPECIMEN Ordering Facility: [facility] Address: [address] [place] [address] Performed By: #### 1 1571-07, 1987-07, #### [facility] CLIA [id number] [address] [place], [place] [id number] [place] CO2 [Moles/Vol] 25 mmol/L Normal 22-30 [facility] Comment on above: Order Comment: Speci men Type: BLOOD SPECIMEN Ordering Facility: [facility] Address: [address] [place], [place] [id number] Performed By: #### 1 1571-07, 1987-07, #### [facility] CLIA [id number] [address] [place] [address] [place] Creatinine [Mass/Vol] 0.74 mg/dL Normal 0.58-0.96 [facility] Comment on above: Order Comment: Speci men Type: BLOOD SPECIMEN Ordering Facility: [facility] Address: [address] [place] [address] Performed By: #### 1 1571-07, 1987-07, #### [facility] CLIA [id number] [address] [place] [address] [place] Creatinine and Glomerular filtration rate.predicted panel (S/P/Bld) 101 mL/min/1.73m??? Normal >=60 [facility] Comment on above: Order Comment: Speci men Type: BLOOD SPECIMEN Ordering Facility: [facility] Address: [address] [place] [address] Result Comment: Dora mated Glomerular Filtration Rate [...] Performed By: #### 1 1571-07, 1987-07, #### [facility] CLIA [id number] [address] [place], [place] [phone] [place] Glucose [Mass/Vol] 95 mg/dL Normal 74-99 [facility] Comment on above: Order Comment: Speci men Type: BLOOD SPECIMEN Ordering Facility: [facility] Address: [address], [place] [address] Result Comment: The [place] Diabetes Association (ADA) provides guidance for cutoff [...] Standards of Medical Care in Diabetes 2016, [place] [employer]. Diabetes Care. 2016.39(Suppl 1). Performed By: #### 1 1571-07, #### [facility] CLIA [id number] [address] [place] [address] [place] Potassium [Moles/Vol] 4.6 mmol/L Normal 3.7-5.1 [facility] Comment on above: Order Comment: Speci men Type: BLOOD SPECIMEN Ordering Facility: [facility] Address: [address] [place] [address] Performed By: #### 1 1571-07, #### [facility] CLIA [id number] [address] [place] [address] [place] Protein [Mass/Vol] 7.2 g/dL Normal 6.3-8.0 [facility] Comment on above: Order Comment: Speci men Type: BLOOD SPECIMEN Ordering Facility: [facility] Address: [address] [place] [address] Performed By: #### 1 1571-07, #### [facility] CLIA [id number] [address] [place] [address] [place] Sodium [Moles/Vol] 138 mmol/L Normal 136-144 [facility] Comment on above: Order Comment: Speci men Type: BLOOD SPECIMEN Ordering Facility: [facility] Address: [address] [place] [address] Performed By: #### 1 1571-07, 1987-07, #### [facility] CLIA [id number] [address] [place] [address] [place] Urea nitrogen [Mass/Vol] 12 mg/dL Normal 7-21 [facility] Comment on above: Order Comment: Speci men Type: BLOOD SPECIMEN Ordering Facility: [facility] Address: [address] [place] [address] Performed By: #### 1 1571-07, 1987-07, #### [facility] CLIA [id number] [address] [place] [address] [place] Cyclic citrullinated peptide IgG Qnon 12-22-2023 CCP ANTIBODY IGG QUALITATIVE Negative Normal Negative [facility] Comment on above: Order Comment: Speci men Type: BLOOD SPECIMEN Ordering Facility: [facility] Address: [address] [place] [address] Performed By: #### 1 1571-07, 1987-07, #### [facility] CLIA [id number] [address] [place] [address] [place] No Panel Informationon 12-21 Interpretation and review of laboratory results Normal [facility] RHEUMATOID FACTORon 12-22-19 24 Rheumatoid factor Qn NINF [facility] Rheumatoid fact SerPl-aCncon 12-22-2023 Rheumatoid factor Qn [IU]/mL Normal <16 [facility] Comment on above: Order Comment: Speci men Type: BLOOD SPECIMEN Ordering Facility: [facility] Address: [address] [place] [address] Performed By: #### 1 1571-07, 1987-07, #### [facility] CLIA [id number] [address] [place] [address] [place] cCP IgG SerPl-aCncon 024 Cyclic citrullinated peptide IgG Qn <15 Normal <20 [facility] Comment on above: Order Comment: Speci men Type: BLOOD SPECIMEN Ordering Facility: [facility] Address: [address] [place] [address] Performed By: #### 1 1572-5, 1987-, 53949-2 #### [facility] CLIA [id number] [address] [place] [address] [place] [address] [place] No Panel Informationon 11-09 No obstruction. Norm al study. Report Dictated on Electronically Signed By: Byron Curtis MD Electronically Signed Date/Time: 11/10/2023 4:24 PM EDT [facility] Patient Name: MARCELINO ARAIZA : [...] partial obstruction, over twenty minutes definite obstruction). [facility] Byron Curtis MD - 11/10/2023 Patient [...] Electronically Signed Date/Time: 11/10/2023 4:24 PM EDT [employer] Radiology Study observation (narrative) [employer] No Panel InformationOrdered By: Byron Curtis on 11-10-2023 [employer] Work Phone: CBC W Auto Differential pane l (Bld)on 10-18-2023 Basophils (Bld) [#/Vol] 0.1 10*3/uL 0.0 - 0.2 10*3/uL [employer] Basophils/100 WBC (Bld) 1.1 % 0.0 - 2.0 % [employer] Eosinophils (Bld) [#/Vol] 0.1 10*3/uL 0.0 - 0.5 10*3/uL [employer] Eosinophils/100 WBC (Bld) 1.9 % 0.0 - 6.0 % [employer] Erythrocyte distribution width (RBC) [Ratio] 12.1 % 11.5 - 15.0 % [employer] Hematocrit (Bld) [Volume fraction] 42.1 % 35.0 - 47.0 % [employer] Hemoglobin (Bld) [Mass/Vol] 14.5 g/dL 11.7 - 16.0 g/dL [employer] Immature granulocytes (Bld) [#/Vol] 0.0 10*3/uL NINF - 0.1 10*3/uL [employer] Immature granulocytes/100 WBC (Bld) 0.3 % 0.0 - 2.0 % [employer] Interpretation and review of laboratory results Normal [facility] Lymphocytes (Bld) [#/Vol] 1.4 10*3/uL 1.0 - 4.3 10*3/uL [facility] Lymphocytes/100 WBC (Bld) 22.0 % 15.0 - 45.0 % [facility] MCH (RBC) [Entitic mass] 31.0 pg 26.0 - 34.0 pg [facility] MCHC (RBC) [Mass/Vol] 34.4 % 30.5 - 36.0 % [facility] MCV (RBC) [Entitic vol] 90.0 fL 77.0 - 99.0 fL [facility] Monocytes (Bld) [#/Vol] 0.5 10*3/uL 0.0 - 0.9 10*3/uL [facility] Monocytes/100 WBC (Bld) 7.6 % 5.0 - 13.0 % [facility] Neutrophils (Bld) [#/Vol] 4.3 10*3/uL 1.8 - 7.5 10*3/uL [facility] Neutrophils/100 WBC (Bld) 67.1 % 38.0 - 82.0 % [facility] Nucleated RBC/100 WBC (Bld) [Ratio] 0.0 % [facility] Platelet mean volume (Bld) [Entitic vol] 9.6 fL 9.0 - 12.7 fL [facility] Comment on above: MPV is a calculated measurement using platelet volume ratio Platelets (Bld) [#/Vol] 271 10*3/uL 140 - 440 10*3/uL [facility] RBC (Bld) [#/Vol] 4.68 10*6/uL 3.80 - 5.20 10*6/uL [facility] WBC (Bld) [#/Vol] 6.5 10*3/uL 3.6 - 10.7 10*3/uL [facility] CT Abdomen WO contraston 1. No acute abdomino pelvic process identified. 2. No evidence of hydronephrosis or nephrolithiasis. Report Dictated on Electronically Signed By: Jamie Waldrop MD Electronically Signed Date/Time: 10/18/2023 3:19 PM [facility] Patient [...] changes of the lumbar spine are observed. [facility] Jamie Waldrop MD - 10/18/2023 [...] Electronically Signed Date/Time: 10/18/2023 3:19 PM EDT [employer] Radiology Study observation (narrative) [employer] [facility] CT Abdomen WO contrastOrdere d By: Jamie Waldrop on 10-18-2023 [employer] Work Phone: Comprehensive metabolic 1998 panelon 10-18-2023 Albumin [Mass/Vol] 4.4 g/dL 3.5 - 5.0 g/dL [facility] ALP [Catalytic activity/Vol] 77 U/L 38 - 126 U/L [facility] ALT [Catalytic activity/Vol] 17 U/L 0 - 34 U/L [facility] Anion gap [Moles/Vol] 8 mmol/L 3 - 13 mmol/L [facility] AST [Catalytic activity/Vol] 24 U/L 15 - 46 U/L [facility] Bilirubin [Mass/Vol] 0.5 mg/dL 0.2 - 1 .3 mg/dL [facility] Calcium [Mass/Vol] 9.2 mg/dL 8.4 - 10. 4 mg/dL [facility] Chloride [Moles/Vol] 103 mmol/L 98 - 10 7 mmol/L [facility] CO2 [Moles/Vol] 25 mmol/L 22 - 30 mmol/L [facility] Creatinine [Mass/Vol] 0.77 mg/dL 0.52 - 1.04 mg/dL [facility] GFR/1.73 sq M.predicted MDRD (S/P/Bld) [Vol rate/Area] - PINF [facility] Comment on above: Calculation based on the Chronic Kidney Disease Epidemiology Collaboration (CKD-EPI) equation refit without adjustment for race Glucose [Mass/Vol] 94 mg/dL 70 - 100 mg/dL [facility] Interpretation and review of laboratory results Normal [facility] Potassium [Moles/Vol] 3.7 mmol/L 3.5 - 5.1 mmol/L [facility] Protein [Mass/Vol] 7.5 g/dL 6.3 - 8.2 g/dL [facility] Sodium [Moles/Vol] 136 mmol/L 135 - 145 mmol/L [facility] Urea nitrogen [Mass/Vol] 12 mg/dL 7 - 17 mg/dL [facility] Laboratory - Chemistry and C hemistry - challengeon 10-18-2023 HCG.beta subunit Qn Females <=5 mIU/mL [facility] No Panel Informationon 10-17 Values in should [...] or monitor tumors or gestational trophoblastic disease. [facility] Urinalysis complete panel (U )Ordered By: Misael Miramontes on 10-18-2023 Bacteria LM.HPF (Urine sed) [#/Area] Few Abnormal Negative /HPF [facility] Bilirubin Ql (U) Negative Negative mg/dL [facility] Clarity (U) Clear Clear [facility] Color (U) Colorless Lt. Yellow [facility] Epithelial cells.squamous LM.HPF (Urine sed) [#/Area] 0-2 [facility] Glucose Ql (U) Normal Normal (<70) mg/dL [facility] Hemoglobin Ql (U) 0.03 mg/dL Abnormal Negative [facility] Interpretation and review of laboratory results Abnormal [facility] Ketones (U) [Mass/Vol] Negative Negat aurelia mg/dL [facility] Leukocyte esterase Test strip Ql (U) Negative Negative Eve/uL [facility] Nitrite Ql (U) Negative Negative [facility] pH (U) 5.5 [pH] 5.0 - 8.0 pH [facility] Protein (U) [Mass/Vol] Negative Negat aurelia mg/dL [facility] RBC LM.HPF (Urine sed) [#/Area] Negative [facility] Specific gravity (U) [Rel density] 1.008 1.005 - 1.030 [facility] Urobilinogen (U) [Mass/Vol] Normal Normal (0-1) mg/dL [facility] Volume, Urine 8-12 mL [facility] WBC LM.HPF (Urine sed) [#/Area] Negative [facility] Urinalysis complete panel (U )Ordered By: Jermaine Smallwood on 10-15-2023 Bacteria LM.HPF (Urine sed) [#/Area] Few Abnormal Negative /HPF [facility] Bilirubin Ql (U) Negative Negative mg/dL [facility] Clarity (U) Clear Clear [facility] Color (U) Light Yellow Lt. Yellow [facility] Epithelial cells.squamous LM.HPF (Urine sed) [#/Area] 3-5 [facility] Glucose Ql (U) Normal Normal (<70) mg/dL [facility] Hemoglobin Ql (U) 0.03 mg/dL Abnormal Negative [facility] Interpretation and review of laboratory results Abnormal [facility] Ketones (U) [Mass/Vol] Negative Negat aurelia mg/dL [facility] Leukocyte esterase Test strip Ql (U) Negative Negative Eve/uL [facility] Mucus LM.HPF (Urine sed) [#/Area] Moderate Abnormal Negative /LPF [facility] Nitrite Ql (U) Negative Negative [facility] pH (U) 6.5 [pH] 5.0 - 8.0 pH [facility] Protein (U) [Mass/Vol] Negative Negat aurelia mg/dL [facility] RBC LM.HPF (Urine sed) [#/Area] 3-5 Abnormal [facility] Specific gravity (U) [Rel density] 1.022 1.005 - 1.030 [facility] Urobilinogen (U) [Mass/Vol] Normal Normal (0-1) mg/dL [facility] WBC LM.HPF (Urine sed) [#/Area] 0-2 [facility] Cervical or vaginal specimen microscopic examination by liquid based cytology (reportOrdered By: Denise Duff on 07-14-2023 Cytology report Cyto stain.thin prep Doc (Cvx/Vag) Comment . [facility] Comment on above: Criteria not met, HP V Genotype not performed.Performed at: - [address] [id number] Director: Alysa Angela MD, Phone: [phone] at: [facility] [id number] [place], [place] [id number] Director: Gerald Rios MD, Phone: [phone] at: =G - Labco[address] [id number] Director: Alysa Angela MD, Phone: [phone] Cervical or vagninal specime n microscopic examination by cytology stain (reported asOrdered By: Denise Duff on 07-14-2023 Cytology report Cyto stain Doc (Cvx/Vag) Comment . [facility] Comment on above: The Pap [...] Cx Nom (U) Culture exhibits no growth. [facility] Detection in cervical specim en of any of human papilloma virus (HPV) 16, 18, 31, 33,Ordered By: Denise Duff on 07-14-2023 HPV 16+18+31+33+35+39+45+5 1+52+56+58+59+66+68 DNA Probe+sig amp Ql (Cvx) Negative Negative [facility] Comment on above: This nucleic acid am plification test detects fourteen high- risk HPV types (16,18,31,33,35,39,45,51,52,56,58,59,66,68)without differentiation. Laboratory - Chemistry and C hemistry - challengeon 07-14-2023 Bilirubin Ql (U) Negative [facility] Glucose Ql (U) Negative [facility] Ketones Ql (U) Negative [facility] pH (U) 5.0 [pH] [facility] Specific gravity (U) [Rel density] 1.030 [facility] Urobilinogen (U) [Mass/Vol] Negative [facility] Laboratory - CytologyOrdered By: Denise Duff on 07-14-2023 [employer] Cyto stain Nom (Cvx/Vag) [ID] Comment . [facility] Comment on above: Kerry Farias, [employer] hnologist (ASCP) Pathologist Cyto stain Nom (Cvx/Vag) [ID] Comment . [facility] Comment on above: Rich Gutiérrez MD, Pa thologist Recommended follow-up Cyto stain Nom (Cvx/Vag) Comment . [facility] Comment on above: Suggest follow up as clinically appropriate. Laboratory - Hematology and Cell countson 07-14-2023 Hemoglobin Ql (U) Small [facility] Laboratory - Miscellaneous t estsOrdered By: Denise Duff on 07-14-2023 Service comment (Unsp spec) [Interp] . . [facility] Laboratory - Specimen inform ationon 07-14-2023 Clarity (U) Cloudy [facility] Color (U) HAMLET [facility] Laboratory - Urinalysison Nitrite Ql (U) Negative [facility] Protein Ql (U) Negative [facility] No Panel InformationOrdered By: Denise Duff on 07-14-2023 Pathology report final diagnosis Narrative Comment . [facility] Comment on above: [id number] No Panel Informationon 07-13 Urine Leukocytes Positive [facility] Urine Non-Hemolyzed Blood [facility] Thin prep Papanicolaou smear with manual screeningOrdered By: Denise Duff on 07-14-2023 Thin prep Papanicolaou smear with manual screening Comment . [facility] Comment on above: EPITHELIAL CELL ABNO RMALITY.ATYPICAL SQUAMOUS CELLS OF UNDETERMINED SIGNIFICANCE (ASC-US). This liquid based Th inPrep(R) pap test was screened withthe use of an image guided system. CT UROGRAM WO/W IVCONon 06-27 CT UROGRAM WO/W IVCON * * *Final Report* * * DATE OF EXAM: Jul 09 2023 2:21PM [facility] 0560 - CT UROGRAM WO/W IVCON [...] gross obstructive uropathy, or suspicious renal lesion. Decatizer: [facility] Transcribe Date/Time: Jul 13 2023 8:16A Dictated by : RACHEL BLEVINS MD This examination was interpreted and the report reviewed and electronically signed by: RACHEL BLEVINS MD on Jul 13 2023 8:26AM EST [id number] Normal [facility] CNOVon 07-08-2023 CNOV Office Visit (UROLMN ) MARCELINO ARAIZA ([id number]) 1975 F Date Time Provider Department 07/08/23 9:00 AM MARIA ELENA CARVAJAL During your visit today, we recorded the following information about you: Pulse Blood pressure Weight Height 97/minute 134/79 108 kg 1.727 m Ileana Cherry MA 07/08/2023 8:58 AM Signed Post Void Residual done on patient with 0 cc residual volume remaining. MD notified. SHADIA Springer Monika, TERE.INTERFACE ANALYST 07/08/2023 11:59 AM Signed Referring Provider: Chief [...] Negative per patient report. She presented to [facility] ED on 07/04/23 with clot [...] identified an (more content not included)... Normal [facility] CYTOLOGY NON-GYNon CASE REPORT Normal [facility] Comment on above: Order Comment: Speci men Type: BLOOD SPECIMEN Ordering Facility: [facility] Address: [address] [place] [address] Result Comment: [facility] Cytology Report Case: [id number] Authorizing Provider: Maria Elena Carvajal, Collected: 07/08/2023 07:50 AM APN.INTERFACE ANALYST Ordering Location: Urology Received: 07/09/2023 07:50 AM Pathologist: Carmelita Menjivar MD Specimen: Urine (Nonspecific) Performed By: #### 1 1571-07, 1987-07, #### [facility] CLIA [id number] [address] [place] [address] [place] CLINICAL HISTORY gross hematuria Normal [facility] Comment on above: Order Comment: Speci men Type: BLOOD SPECIMEN Ordering Facility: [facility] Address: [address] [place] [address] Performed By: #### 1 1571-07, 1987-07, #### [facility] CLIA [id number] [address] [place] [address] [place] FINAL DIAGNOSIS Normal [facility] Comment on above: Order Comment: Speci men Type: BLOOD SPECIMEN Ordering Facility: [facility] Address: [address] [place] [address] Result Comment: A - Urine (Nonspecific), Urine Negative for high-grade urothelial carcinoma. Blood., Fungal organisms morphologically consistent with Elvira species. Performed By: #### 1 1571-07, 1987-07, #### [facility] CLIA [id number] [address] [place] [address] [place] FINAL PERFORMING LAB Normal [facility] Comment on above: Order Comment: Speci men Type: BLOOD SPECIMEN Ordering Facility: [facility] Address: [address] [place] [address] Result Comment: Tech nical component, engraver machine screening performed at [facility], [address] [place] [address] CLIA# [id number] Diagnostic interpretation performed at [facility], [address] [place] [address] CLIA# [id number] Threading Machine Feeder Automatic: Edson Parker M.D. Performed By: #### 1 5, 1987-07, #### [facility] CLIA [id number] [address] [place] [address] [place] GROSS DESCRIPTION Normal [facility] Comment on above: Order Comment: Speci men Type: BLOOD SPECIMEN Ordering Facility: [facility] Address: [address] [place] [address] Result Comment: A. U rine (Nonspecific) 40 cc clear yellow fluid. ThinPrep prepared. Performed By: #### 1 1571-07, 1987-07, #### [facility] CLIA [id number] [address] [place] [address] [place] URINALYSIS, REFLEX MICROSCOP ICon 07-08-2023 Bilirubin Ql (U) Negative Negative [facility] Clarity (Unsp spec) Clear Clear [facility] Color (U) Yellow Yellow [facility] Epithelial cells LM.HPF (Urine sed) [#/Area] Few [facility] Glucose Test strip (U) [Mass/Vol] Negative Trace, Negative [facility] Hemoglobin Ql (U) 3+ Abnormal Negative, Trace [facility] Ketones Ql (U) Negative Negative, Trace [facility] Leukocyte esterase Test strip Ql (U) Negative Negative, 25 Eve/uL [facility] Nitrite Ql (U) Negative Negative [facility] pH (U) 6.0 [pH] 5.0 - 8.0 [facility] Protein (U) [Mass/Vol] Negative Trace , Negative [facility] RBC LM.HPF (Urine sed) [#/Area] /[HPF] Abnormal 0-3 /HPF [facility] Specific gravity (U) [Rel density] 1.018 1.005 - 1.030 [facility] Urobilinogen Ql (U) Normal Normal [facility] WBC LM.HPF (Urine sed) [#/Area] 0-5 /HPF 0-5 /HPF [facility] Bilirubin Ql (U) Negative Normal [facility] Comment on above: Order Comment: Speci men Type: BLOOD SPECIMEN Ordering Facility: [facility] Address: [address] [place] [address] Performed By: #### 1 1571-07, 1987-07, #### [facility] CLIA [id number] [address] [place] [address] [place] Clarity (Unsp spec) Clear Normal Clear [facility] Comment on above: Order Comment: Speci men Type: BLOOD SPECIMEN Ordering Facility: [facility] Address: [address] [place] [address] Performed By: #### 1 1571-07, 1987-07, #### [facility] CLIA [id number] [address] [place] [address] [place] Color (U) Yellow Normal Yellow [facility] Comment on above: Order Comment: Speci men Type: BLOOD SPECIMEN Ordering Facility: [facility] Address: [address] [place] [address] Performed By: #### 1 1571-07, #### [facility] CLIA [id number] [address] [place] [address] [place] Epithelial cells LM.HPF (Urine sed) [#/Area] Few Normal [facility] Comment on above: Order Comment: Speci men Type: BLOOD SPECIMEN Ordering Facility: [facility] Address: [address] [address] Performed By: #### 1 1571-07, 1987-07, #### [facility] CLIA [id number] [address] [place] [address] [place] Glucose Test strip (U) [Mass/Vol] Negative Normal Trace, Negative [facility] Comment on above: Order Comment: Speci men Type: BLOOD SPECIMEN Ordering Facility: [facility] Address: [address] [place] [address] Performed By: #### 1 1571-07, 1987-07, #### [facility] CLIA [id number] [address] [place] [address] [place] Hemoglobin Ql (U) 3+ Abnormal Negative, Trace [facility] Comment on above: Order Comment: Speci men Type: BLOOD SPECIMEN Ordering Facility: [facility] Address: [address] [place] [address] Performed By: #### 1 1571-07, 1987-07, #### [facility] CLIA [id number] [address] [place] [address] [place] Ketones Ql (U) Negative Normal Negative, Trace [facility] Comment on above: Order Comment: Speci men Type: BLOOD SPECIMEN Ordering Facility: [facility] Address: [address] [place] [address] Performed By: #### 1 1571-07, 1987-07, #### [facility] CLIA [id number] [address] [place] [address] [place] Leukocyte esterase Test strip Ql (U) Negative Normal Negative, 25 Eve/uL [facility] Comment on above: Order Comment: Speci men Type: BLOOD SPECIMEN Ordering Facility: [facility] Address: [address] [place] [address] Performed By: #### 1 1571-07, 1987-07, #### [facility] CLIA [id number] [address] [place] [address] [place] Nitrite Ql (U) Negative Normal Negative [facility] Comment on above: Order Comment: Speci men Type: BLOOD SPECIMEN Ordering Facility: [facility] Address: [address] [place] [address] Performed By: #### 1 1571-07, #### [facility] CLIA [id number] [address] [place] [address] [place] pH (U) 6.0 [pH] Normal 5.0-8.0 [facility] Comment on above: Order Comment: Speci men Type: BLOOD SPECIMEN Ordering Facility: [facility] Address: [address] [place] [address] Performed By: #### 1 1571-07, 1987-07, #### [facility] CLIA [id number] [address] [place] [address] [place] Protein (U) [Mass/Vol] Negative Normal Trace , Negative [facility] Comment on above: Order Comment: Speci men Type: BLOOD SPECIMEN Ordering Facility: [facility] Address: [address] [place] [address] Performed By: #### 1 1571-07, #### [facility] CLIA [id number] [address] [place] [address] [place] RBC LM.HPF (Urine sed) [#/Area] /[HPF] Abnormal 0-3 /HPF [facility] Comment on above: Order Comment: Speci men Type: BLOOD SPECIMEN Ordering Facility: [facility] Address: [address] [place] [address] Performed By: #### 1 1571-07, 1987-07, #### [facility] CLIA [id number] [address] [place] [address] [place] Specific gravity (U) [Rel density] 1.018 Normal 1.005-1.03 0 [facility] Comment on above: Order Comment: Speci men Type: BLOOD SPECIMEN Ordering Facility: [facility] Address: [address] [place] [address] Performed By: #### 1 1571-07, 1987-07, #### [facility] CLIA [id number] [address] [place] [address] [place] Urobilinogen Ql (U) Normal Normal Normal [facility] Comment on above: Order Comment: Speci men Type: BLOOD SPECIMEN Ordering Facility: [facility] Address: [address] [place] [address] Performed By: #### 1 1571-07, 1987-07, #### [facility] CLIA [id number] [address] [place] [address] [place] WBC LM.HPF (Urine sed) [#/Area] 0-5 /HPF Normal 0-5 /HPF [facility] Comment on above: Order Comment: Speci men Type: BLOOD SPECIMEN Ordering Facility: [facility] Address: [address] [place] [address] Performed By: #### 1 1571-07, 1987-07, #### [facility] CLIA [id number] [address] [place] [address] [place] Basophil percentageOrdered B y: Ashley Fair on 07-05-2023 Hemoglobin (Bld) [Mass/Vol] 11.7 g/dL 12.0-15.0 [facility] Hematocrit Auto (Bld) [Volum e fraction]Ordered By: Ashley Fair on 07-05-2023 Hematocrit (Bld) [Volume fraction] 34.6 % 37-47 [facility] Absolute lymphocyte countOrd ered By: Cirilo Garcias on 07-04-2023 Lymphocytes Auto (Unsp spec) [#/Vol] 1.90 10*3/uL 0.83-4.51 [facility] Automated lymphocyte count a s percentage of total leukocytesOrdered By: Cirilo Garcias on 07-04-2023 Lymphocytes/100 WBC Auto (Unsp spec) 29.8 % 19-41 [facility] Basophil percentageOrdered B y: Cirilo Garcias on 07-04-2023 Basophils/100 WBC (Bld) 1.1 % 0-1 [facility] Chloride [Moles/Vol] 108 mmol/L 98-107 [facility] Eosinophils/100 WBC (Bld) 4.9 % 0-5 [facility] Glucose [Mass/Vol] 88 mg/dL 74-106 [facility] Hemoglobin (Bld) [Mass/Vol] 13.0 g/dL 12.0-15.0 [facility] Monocytes/100 WBC (Bld) 5.8 % 0-10 [facility] Neutrophils (Bld) [#/Vol] 3.7 10*3/uL 2.0-7.7 [facility] Neutrophils/100 WBC (Bld) 58.2 % 47-70 [facility] Potassium [Moles/Vol] 4.2 mmol/L 3.5-5.1 [facility] Sodium [Moles/Vol] 138 mmol/L 136-145 [facility] WBC (Bld) [#/Vol] 6.4 10*3/uL 4.4-11.0 [facility] Basophil percentage 0 SEEN /hpf 0-5 [facility] Bilirubin Test strip Ql (U)O rdered By: Cirilo Garcias on 07-04-2023 Bilirubin Ql (U) Negative Negative [facility] Determination of erythrocyte mean corpuscular volume (MCV)Ordered By: Cirilo Garcias on 07-04-2023 MCV (RBC) [Entitic vol] 92.6 fL 81-99 [facility] Erythrocyte distribution wid th ratioOrdered By: Cirilo Garcias on 07-04-2023 Erythrocyte distribution width (RBC) [Ratio] 13.0 % 11.6-14.6 [facility] Erythrocyte distribution wid th standard deviationOrdered By: Cirilo Garcias on 07-04-2023 Erythrocyte distribution width (RBC) [Entitic vol] 43.7 fL 35.1-43.9 [facility] Hematocrit Auto (Bld) [Volum e fraction]Ordered By: Cirilo Garcias on 07-04-2023 Hematocrit (Bld) [Volume fraction] 39.0 % 37-47 [facility] Immature granulocytes/100 WB C Auto (Bld)Ordered By: Cirilo Garcias on 07-04-2023 Immature granulocytes/100 WBC (Bld) 0.200 % 0.0-0.9 [facility] Comment on above: IG% - Immature Granu locytes (promyelocytes, myelocytes and metamyelocytes) > 1% indicates that a LEFT SHIFT is Present. Ketones Test strip Ql (U)Ord ered By: Cirilo Garcias on 07-04-2023 Ketones Ql (U) Negative Negative [facility] Laboratory - Chemistry and C hemistry - challengeOrdered By: Cirilo Garcias on 07-04-2023 CO2 [Moles/Vol] 24.0 mmol/L 21.0-32.0 [facility] Urea nitrogen/Creatinine [Mass ratio] 21.9 mg/mg 10-20 [facility] HCG ( test) Ql (U) Negative [facility] Comment on above: Very dilute urine sp ecimens, as indicated by a low specificgravity, may not contain senior sales representative levels of hCG. If is still suspected, a first morning urinespecimen should be collected 48 hours later and tested. Laboratory - Hematology and Cell countsOrdered By: Cirilo Garcias on 07-04-2023 MCH (RBC) [Entitic mass] 30.9 pg 27.0-32.0 [facility] MCHC (RBC) [Mass/Vol] 33.3 g/dL 32-36 [facility] Nucleated RBC/100 WBC (Bld) [Ratio] 0 % 0-5 [facility] Platelet mean volume (Bld) [Entitic vol] 9.7 fL 6.2-12.0 [facility] Platelets (Bld) [#/Vol] 282 10*3/uL 150-450 [facility] Mucus LM Ql (Urine sed)Order ed By: Cirilo Garcias on 07-04-2023 Mucus Ql (Urine sed) 0 SEEN /hpf [facility] Nitrite Test strip Ql (U)Ord ered By: Cirilo Garcias on 07-04-2023 Nitrite Ql (U) Negative Negative [facility] No Panel InformationOrdered By: Cirilo Garcias on 07-04-2023 Estimated Creatinine Clearance Calc 124.56 ml/min [facility] Estimated GFR (MDRD) Amer 110 mL/min >60 [facility] Comment on above: GFR Calc Estimated GFR (MDRD) Non-Af Amer 91 mL/min >60 [facility] Comment on above: Non- GFR Calc Urine RBC > 100 SEEN /hpf 0-5 [facility] Protein Test strip Ql (U)Ord ered By: Cirilo Garcias on 07-04-2023 Protein Ql (U) 500 mg/dl Negative [facility] RBC Auto (Bld) [#/Vol]Ordere d By: Cirilo Garcias on 07-04-2023 RBC (Bld) [#/Vol] 4.21 10*6/uL 4.2-5.4 [facility] Serum or plasma calcium patrizia urement (mass/volume)Ordered By: Cirilo Garcias on 07-04-2023 Calcium [Mass/Vol] 8.8 mg/dL 8.5-10.1 [facility] Serum or plasma creatinine m easurement (mass/volume)Ordered By: Cirilo Garcias on 07-04-2023 Creatinine [Mass/Vol] 0.73 mg/dL 0.55-1.02 [facility] Comment on above: The validity of the calculated GFR & GFRAA in patients over 70 years has not been determined. Clinical correlation is essential. Serum or plasma urea nitroge n measurement (mass/volume)Ordered By: Cirilo Garcias on 07-04-2023 Urea nitrogen [Mass/Vol] 16 mg/dL 7-18 [facility] Squamous epithelial cells de tection in urine sediment by light microscopyOrdered By: Cirilo Garcias on 07-04-2023 Epithelial cells.squamous LM Ql (Urine sed) 0 SEEN /hpf 5-10 [facility] Thin prep Papanicolaou smear with manual screeningOrdered By: Cirilo Garcias on 07-04-2023 Thin prep Papanicolaou smear with manual screening 6 5-15 [facility] Urine blood detectionOrdered By: Cirilo Garcias on 07-04-2023 RBC Ql (U) 250 /ul Negative [facility] Urine clarityOrdered By: Justin Garcias on 07-04-2023 Clarity (U) Turbid Clear [facility] Urine color determinationOrd ered By: Cirilo Garcias on 07-04-2023 Color (U) Red Yellow [facility] Urine glucose detectionOrder ed By: Cirilo Garcias on 07-04-2023 Glucose Ql (U) Normal mg/dl Normal [facility] Urine leukocyte esterase det ection by dipstickOrdered By: Cirilo Garcias on 07-04-2023 Leukocyte esterase Test strip Ql (U) Negative Negative [facility] Urine pHOrdered By: Cirilo barr on 07-04-2023 pH (U) 5.0 [pH] 5.0 - 8.0 [facility] Urine sediment bacteria coun t by microscopy (number/high power field)Ordered By: Cirilo Garcias on 07-04-2023 Bacteria LM.HPF (Urine sed) [#/Area] 0 /[HPF] None Seen [facility] Urine specific gravity measu rementOrdered By: Cirilo Garcias on 07-04-2023 Specific gravity (U) [Rel density] 1.030 1.002-1.03 0 [facility] Urine urobilinogen measureme ntOrdered By: Cirilo Garcias on 07-04-2023 Urobilinogen Ql (U) 1 mg/dl Normal [facility] Thin prep Papanicolaou smear with manual screeningOrdered By: Tanna Tam on 06-30-2023 Thin prep Papanicolaou smear with manual screening 283.6 ng/mL 0.0-101.8 [facility] Comment on above: Chromogranin A perfo rmed by [employer] KRYPTORmethodologyValues obtained with different assay methods or kits cannotbe used interchangeably.Performed at: [address] [id number] Director: Thai Maddox MD, Phone: [phone] Laboratory - Chemistry and C hemistry - challengeOrdered By: Ashley Fair on 06-10-2023 HCG ( test) Ql (U) Negative [facility] Comment on above: Very dilute urine sp ecimens, as indicated by a low specificgravity, may not contain senior sales representative levels of hCG. If is still suspected, a first morning urinespecimen should be collected 48 hours later and tested. Activated partial thrombopla stin time (aPTT) in platelet poor plasma by coagulation aOrdered By: Santana Crespo on 06-04-2023 aPTT Coag (PPP) [Time] 31.0 s 24.1-36.2 [facility] Basophil percentageOrdered B y: Santana Crespo on 06-04-2023 Bilirubin [Mass/Vol] 0.30 mg/dL 0.20-1.00 [facility] Comment on above: For patients on eltr ombopag therapy, use of Dimension [place] TBIL is not recommended. Protein [Mass/Vol] 7.1 g/dL 6.4-8.2 [facility] Direct bilirubinOrdered By: Santana Crespo on 06-04-2023 Bilirubin.direct [Mass/Vol] 0.11 mg/dL 0.00-0.30 [facility] Laboratory - Chemistry and C hemistry - challengeOrdered By: Snatana Crespo on 06-04-2023 ALP [Catalytic activity/Vol] 76 U/L 45-117 [facility] ALT [Catalytic activity/Vol] 21 U/L 13-56 [facility] Globulin (S) [Mass/Vol] 3.5 g/dL 2.2-4.2 [facility] Laboratory - CoagulationOrde red By: Santana Crespo on 06-04-2023 INR Coag (Bld) [Relative time] 1.1 {INR} [facility] PT Coag (PPP) [Time] 13.7 s 11.7-14.9 [facility] Thin prep Papanicolaou smear with manual screeningOrdered By: Santana Crespo on 06-04-2023 Thin prep Papanicolaou smear with manual screening 3.6 g/dL 3.2-5.0 [facility] Thin prep Papanicolaou smear with manual screening 22 U/L 15-37 [facility] Clostridioides difficile nuc leic acid assay by PCROrdered By: Tanna Tam on 05-05-2023 C. difficile DNA MARELY+probe Ql (Unsp spec) [facility] No Panel InformationOrdered By: Tanna Tam on 05-05-2023 Stool Calprotectin 119 ug/g 0-120 [facility] Comment on above: Concentration Interp retation Follow-Up< 5 - 50 ug/g Normal None>50 -120 ug/g Borderline Re-evaluate in 4-6 weeks >120 ug/g Abnormal Repeat as clinically indicatedPerformed at: - [facility] [id number] Director: Christian Crowell PhD, Phone: [phone] at: - [facility] [id number] Director: Thai Maddox MD, Phone: [phone] Stool Neutral Fats Normal . [facility] Comment on above: Normal (<60 Droplets /HPF) Giardia Antigen (WILTON) [facility] Immunoglobulin E 34 IU/mL 6-495 [facility] Immunoglobulin M 131 mg/dL 26-217 [facility] Ova and parasitesOrdered By: Tanna Tam on 05-05-2023 Ova and parasites identified LM Nom (Unsp spec) [facility] Qualitative fecal fat or lip idsOrdered By: Tanna Tam on 05-05-2023 Fat Ql (Stl) Increased . [facility] Comment on above: Normal (<100 Droplet s/HPF) Serum or plasma IgA measurem ent (mass/volume)Ordered By: Tanna Tam on 05-05-2023 IgA [Mass/Vol] 131 mg/dL 87-352 [facility] Serum or plasma IgG measurem ent (mass/volume)Ordered By: Tanna Tam on 05-05-2023 IgG [Mass/Vol] 1246 mg/dL 586-1602 [facility] Stool enteric pathogen panel by probe and target amplification methodOrdered By: Tanna Tam on 05-05-2023 Gastrointestinal pathogens panel MARELY+probe (Stl) [facility] Stool gastrointestinal hemog lobin detection by immunologic methodOrdered By: Tanna Tam on 05-05-2023 Lower GI hemoglobin IA Ql (Stl) [facility] Stool lactoferrin detection by immunoassayOrdered By: Tanna Tam on 05-05-2023 Lactoferrin IA Ql (Stl) [facility] Stool pancreatic elastase me asurement (mass/mass)Ordered By: Tanna Tam on 05-05-2023 Elastase.pancreatic (Stl) [Mass/Mass] 133 >200 [facility] Comment on above: Result Units: ug Joya st./g Severe Pancreatic Insufficiency: <100 Moderate Pancreatic Insufficiency: 100 - 200 Normal: >200Performed at: [facility] [employer] [id number] Director: Thai Maddox MD, Phone: [phone] Thin prep Papanicolaou smear with manual screeningOrdered By: Tanna Tam on 05-05-2023 Thin prep Papanicolaou smear with manual screening 647.1 ng/mL 0.0-101.8 [facility] Comment on above: Chromogranin A perfo rmed by [employer] KRYPTORmethodologyValues obtained with different assay methods or kits cannotbe used interchangeably.Performed at: [address] [id number] Director: Christian Crowell PhD, Phone: [phone] at: [employer] [id number] Director: Thai Maddox MD, Phone: [phone] Absolute lymphocyte countOrd ered By: ED PROVIDER on 04-21-2023 Lymphocytes Auto (Unsp spec) [#/Vol] 2.73 10*3/uL 0.83-4.51 [facility] Automated lymphocyte count a s percentage of total leukocytesOrdered By: ED PROVIDER on 04-21-2023 Lymphocytes/100 WBC Auto (Unsp spec) 29.7 % 19-41 [facility] Basophil percentageOrdered B y: Wagner Reynolds on 04-21-2023 Basophil percentage 0 SEEN /hpf 0-5 [facility] Basophil percentageOrdered B y: ED PROVIDER on 04-21-2023 Basophils/100 WBC (Bld) 1.3 % 0-1 [facility] Chloride [Moles/Vol] 108 mmol/L 98-107 [facility] Eosinophils/100 WBC (Bld) 3.7 % 0-5 [facility] Glucose [Mass/Vol] 152 mg/dL 74-106 [facility] Comment on above: Fasting Glucose resu lt greater than or equal to 126 mg/dL suggests DIABETES MELLITUS per A.D.A. criteria. Hemoglobin (Bld) [Mass/Vol] 14.8 g/dL 12.0-15.0 [facility] Monocytes/100 WBC (Bld) 4.9 % 0-10 [facility] Neutrophils (Bld) [#/Vol] 5.5 10*3/uL 2.0-7.7 [facility] Neutrophils/100 WBC (Bld) 60.3 % 47-70 [facility] Potassium [Moles/Vol] 4.0 mmol/L 3.5-5.1 [facility] Comment on above: Slight Hemolysis, Re sult may be falsely increased. Sodium [Moles/Vol] 134 mmol/L 136-145 [facility] WBC (Bld) [#/Vol] 9.2 10*3/uL 4.4-11.0 [facility] Bilirubin Test strip Ql (U)O rdered By: ED PROVIDER on 04-21-2023 Bilirubin Ql (U) Negative Negative [facility] Determination of erythrocyte mean corpuscular volume (MCV)Ordered By: ED PROVIDER on 04-21-2023 MCV (RBC) [Entitic vol] 90.2 fL 81-99 [facility] Erythrocyte distribution wid th ratioOrdered By: ED PROVIDER on 04-21-2023 Erythrocyte distribution width (RBC) [Ratio] 12.4 % 11.6-14.6 [facility] Erythrocyte distribution wid th standard deviationOrdered By: ED PROVIDER on 04-21-2023 Erythrocyte distribution width (RBC) [Entitic vol] 41.1 fL 35.1-43.9 [facility] Hematocrit Auto (Bld) [Volum e fraction]Ordered By: ED PROVIDER on 04-21-2023 Hematocrit (Bld) [Volume fraction] 44.1 % 37-47 [facility] Immature granulocytes/100 WB C Auto (Bld)Ordered By: ED PROVIDER on 04-21-2023 Immature granulocytes/100 WBC (Bld) 0.100 % 0.0-0.9 [facility] Comment on above: IG% - Immature Granu locytes (promyelocytes, myelocytes and metamyelocytes) > 1% indicates that a LEFT SHIFT is Present. Ketones Test strip Ql (U)Ord ered By: ED PROVIDER on 04-21-2023 Ketones Ql (U) Negative Negative [facility] Laboratory - Chemistry and C hemistry - challengeOrdered By: ED PROVIDER on 04-21-2023 CO2 [Moles/Vol] 21.0 mmol/L 21.0-32.0 [facility] Urea nitrogen/Creatinine [Mass ratio] 20.0 mg/mg 10-20 [facility] Laboratory - Hematology and Cell countsOrdered By: ED PROVIDER on 04-21-2023 MCH (RBC) [Entitic mass] 30.3 pg 27.0-32.0 [facility] MCHC (RBC) [Mass/Vol] 33.6 g/dL 32-36 [facility] Nucleated RBC/100 WBC (Bld) [Ratio] 0 % 0-5 [facility] Platelets (Bld) [#/Vol] 353 10*3/uL 150-450 [facility] Mucus LM Ql (Urine sed)Order ed By: Wagner Reynolds on 04-21-2023 Mucus Ql (Urine sed) 0 SEEN /hpf [facility] Nitrite Test strip Ql (U)Ord ered By: ED PROVIDER on 04-21-2023 Nitrite Ql (U) Negative Negative [facility] No Panel InformationOrdered By: Wagner Reynolds on 04-21-2023 Urine RBC 0-5 SEEN /hpf 0-5 [facility] No Panel InformationOrdered By: ED PROVIDER on 04-21-2023 Estimated GFR (MDRD) Amer 87 mL/min >60 [facility] Comment on above: GFR Calc Estimated GFR (MDRD) Non-Af Amer 72 mL/min >60 [facility] Comment on above: Non- GFR Calc Platelet mean volume Jonathan-Ec ker (Bld) [Entitic vol]Ordered By: ED PROVIDER on 04-21-2023 Platelet mean volume (Bld) [Entitic vol] 9.9 fL 6.2-12.0 [facility] Protein Test strip Ql (U)Ord ered By: ED PROVIDER on 04-21-2023 Protein Ql (U) Negative Negative [facility] RBC Auto (Bld) [#/Vol]Ordere d By: ED PROVIDER on 04-21-2023 RBC (Bld) [#/Vol] 4.89 10*6/uL 4.2-5.4 [facility] Serum or plasma calcium patrizia urement (mass/volume)Ordered By: ED PROVIDER on 04-21-2023 Calcium [Mass/Vol] 9.1 mg/dL 8.5-10.1 [facility] Serum or plasma choriogonado tropin detectionOrdered By: ED PROVIDER on 04-21-2023 HCG ( test) Ql Negative [facility] Serum or plasma creatinine m easurement (mass/volume)Ordered By: ED PROVIDER on 04-21-2023 Creatinine [Mass/Vol] 0.90 mg/dL 0.55-1.02 [facility] Comment on above: The validity of the calculated GFR & GFRAA in patients over 70 years has not been determined. Clinical correlation is essential. Serum or plasma urea nitroge n measurement (mass/volume)Ordered By: ED PROVIDER on 04-21-2023 Urea nitrogen [Mass/Vol] 18 mg/dL 7-18 [facility] Squamous epithelial cells de tection in urine sediment by light microscopyOrdered By: Wagner Reynolds on 04-21-2023 Epithelial cells.squamous LM Ql (Urine sed) 0-5 SEEN /hpf 5-10 [facility] Thin prep Papanicolaou smear with manual screeningOrdered By: ED PROVIDER on 04-21-2023 Thin prep Papanicolaou smear with manual screening 5 5-15 [facility] Urine blood detectionOrdered By: ED PROVIDER on 04-21-2023 RBC Ql (U) 10 /ul Negative [facility] Urine clarityOrdered By: ED PROVIDER on 04-21-2023 Clarity (U) Clear Clear [facility] Urine color determinationOrd ered By: ED PROVIDER on 04-21-2023 Color (U) Yellow Yellow [facility] Urine glucose detectionOrder ed By: ED PROVIDER on 04-21-2023 Glucose Ql (U) Normal mg/dl Normal [facility] Urine leukocyte esterase det ection by dipstickOrdered By: ED PROVIDER on 04-21-2023 Leukocyte esterase Test strip Ql (U) Negative Negative [facility] Urine pHOrdered By: ED PROVI MIKEL on 04-21-2023 pH (U) 6.0 [pH] 5.0 - 8.0 [facility] Urine sediment bacteria coun t by microscopy (number/high power field)Ordered By: Wagner Reynolds on 04-21-2023 Bacteria LM.HPF (Urine sed) [#/Area] RARE /hpf None Seen [facility] Urine specific gravity measu rementOrdered By: ED PROVIDER on 04-21-2023 Specific gravity (U) [Rel density] 1.010 1.002-1.03 0 [facility] Urine urobilinogen measureme ntOrdered By: ED PROVIDER on 04-21-2023 Urobilinogen Ql (U) Normal mg/dl Normal [facility] Wills's yeast IgE serumOrde red By: Edgar Coffey on 04-09-2023 Wills's yeast IgE Qn (S) <0.10 kU/L Class 0 [facility] Comment on above: Performed at: [address] [id number] Director: Thai Maddox MD, Phone: [phone] Laboratory - Miscellaneous t estsOrdered By: Edgar Coffey on 04-09-2023 Service comment (Unsp spec) [Interp] Comment . [facility] Comment on above: Levels of [...] 04-09-2023 Scallop Allergen <0.10 kU/L Class 0 [facility] Sesame Seed Allergen IgE Antibody <0.10 kU/L Class 0 [facility] Shrimp Allergen <0.10 kU/L Class 0 [facility] Serum black walnut IgE antib lucas assay (units/volume)Ordered By: Edgar Coffey on 04-09-2023 Black [place] IgE Qn (S) <0.10 kU/L Class 0 [facility] Serum clam IgE antibody assa y (units/volume)Ordered By: Edgar Coffey on 04-09-2023 Clam IgE Qn (S) <0.10 kU/L Class 0 [facility] Serum codfish IgE antibody a ssay (units/volume)Ordered By: Edgar Coffey on 04-09-2023 Codfish IgE Qn (S) <0.10 kU/L Class 0 [facility] Serum corn IgE antibody assa y (units/volume)Ordered By: Edgar Coffey on 04-09-2023 Rienzi IgE Qn (S) <0.10 kU/L Class 0 [facility] Serum cow milk IgE antibody assay (units/volume)Ordered By: Edgar Coffey on 04-09-2023 Cow milk IgE Qn (S) <0.10 kU/L Class 0 [facility] Cow milk IgE Qn (S) Not Reportable [facility] Serum crab IgE antibody assa y (units/volume)Ordered By: Edgar Coffey on 04-09-2023 Crab IgE Qn (S) <0.10 kU/L Class 0 [facility] Serum egg white IgE antibody assay (units/volume)Ordered By: Edgar Coffey on 04-09-2023 Egg white IgE Qn (S) <0.10 kU/L Class 0 [facility] Serum gluten IgE antibody as say (units/volume)Ordered By: Edgar Coffey on 04-09-2023 Gluten IgE Qn (S) <0.10 kU/L Class 0 [facility] Serum lobster IgE antibody a ssay (units/volume)Ordered By: Edgar Coffey on 04-09-2023 Lobster IgE Qn (S) <0.10 kU/L Class 0 [facility] Serum peanut IgE antibody as say (units/volume)Ordered By: Edgar Coffey on 04-09-2023 Peanut IgE Qn (S) <0.10 kU/L Class 0 [facility] Serum salmon IgE antibody as say (units/volume)Ordered By: Edgar Coffey on 04-09-2023 Poplar IgE Qn (S) <0.10 kU/L Class 0 [facility] Serum soybean IgE antibody a ssay (units/volume)Ordered By: Edgar Coffey on 04-09-2023 Soybean IgE Qn (S) <0.10 kU/L Class 0 [facility] Serum tuna IgE antibody assa y (units/volume)Ordered By: Edgar Coffey on 04-09-2023 Tuna IgE Qn (S) <0.10 kU/L Class 0 [facility] Serum wheat IgE antibody ass ay (units/volume)Ordered By: Edgar Coffey on 04-09-2023 Wheat IgE Qn (S) <0.10 kU/L Class 0 [facility] Stomach Views for gastric emptying solid phase W radionuclide [place] 11-20-2022 Abnormally delayed gastric emptying following solid meal. Report Dictated on Electronically Signed By: Tonio Arciniega MD Electronically Signed Date/Time: 11/20/2022 10:34 AM EDT [facility] Patient Name: MARCELINO ARAIZA : [...] ingestion is between 19 and 52 percent. [facility] Tonio Arciniega MD - 11/20/2022 Patient [...] Electronically Signed Date/Time: 11/20/2022 10:34 AM EDT [facility] Radiology Study observation (narrative) [facility] Stomach Views for gastric emptying solid phase W radionuclide POOrdered By: Tonio Arciniega on 11-20-2022 [facility] Work Phone: House Account Tracking (Ques t)on 11-11-2022 Tracking House Account [facility] [employer] Comment on above: We were unable to id entify an account number for the order submitted. If you do not have a [employer] account number or if your account information needs to be updated please call [phone] ([phone]) for assistance. To prevent delays in testing and processing of your orders please provide the following information for this order and with every additional order submitted: [facility] account number and account name Client address Client phone and fax number NPI number of ordering physician along with the physician name. [facility] Hm Pap Smearon 10-30-2022 Interpretation and review of laboratory results Abnormal [facility] PAP IG HPV APTIMA 16 /18,45 on 07-16-2022 ADEQ Comment Normal . [facility] Comment on above: Order Comment: Specimen Comment: [id number] Comment: Source.............CervixSp ecimen Comment: No. of containers..01 ThinPrep Vial Result Comment: Satisfactory for evaluation. No endocervical component is identified. Performed By: #### [id number] ####[facility] [address] [place], [place], [phone] COMM . Normal . [facility] Comment on above: Order Comment: Specimen Comment: [id number] Comment: Source.............CervixSp ecimen Comment: No. of containers..01 ThinPrep Vial Performed By: #### [id number] ####[facility] [address] [place], [address] COMMENT Comment Normal . [facility] Comment on above: Order Comment: Specimen Comment: [id number] Comment: Source.............CervixSp ecimen Comment: No. of containers..01 ThinPrep Vial Result Comment: This liquid based ThinPrep(R) pap test was screened with the use of an image guided system. Performed By: #### [id number] ####[facility] [address] [place], [place], [id number] DIAG Comment Abnormal . [facility] Comment on above: Order Comment: Specimen Comment: [id number] Comment: Source.............CervixSp ecimen Comment: No. of containers..01 ThinPrep Vial Result Comment: EPITHELIAL CELL ABNORMALITY. LOW GRADE SQUAMOUS INTRAEPITHELIAL LESION (LSIL). Performed By: #### [id number] ####[facility] [address] [place], [place], [id number] HPV APTIMA, HR Negative Normal Negative [facility] Comment on above: Order Comment: Specimen Comment: [id number] Comment: Source.............CervixSp ecimen Comment: No. of containers..01 ThinPrep Vial Result Comment: This nucleic acid amplification test detects fourteen high- risk HPV types (16,18,31,33,35,39,45,51,52 ,56,58,59,66,68) without differentiation. Performed By: #### [id number] ####[facility] [address] [place], [address] HPV Kate Rfx Comment Normal . [facility] Comment on above: Order Comment: Specimen Comment: [id number] Comment: Source.............CervixSp ecimen Comment: No. of containers..01 ThinPrep Vial Result Comment: Criteria not met, HPV Genotype not performed. Performed at: [facility] - [facility] [id number] Electrical Test Engineer: Alysa Angela MD, Phone: [phone] Performed at: [email or web address] [employer] [address] [place] [id number] Electrical Test Engineer: Gerald Rios MD, Phone: [phone] Performed at: =G - [facility] [address] [id number] Electrical Test Engineer: Alysa Angela MD, Phone: [phone] Performed By: #### [id number] ####[facility] [address] [facility] [place], [address] PAPSMR Comment Normal . [facility] Comment on above: Order Comment: Specimen Comment: [id number] Comment: Source.............CervixSp ecimen Comment: No. of containers..01 ThinPrep Vial Result Comment: The Pap smear is a screening test designed to aid in the detection of premalignant and malignant conditions of the uterine cervix. It is not a diagnostic procedure and should not be used as the sole means of detecting cervical cancer. Both false-positive and false-negative reports do occur. Performed By: #### [id number] ####[facility] [address] [place], [address] Path.prov.IDC-9 Comment Normal . [facility] Comment on above: Order Comment: Specimen Comment: [id number] Comment: Source.............CervixSp ecimen Comment: No. of containers..01 ThinPrep Vial Result Comment: R87.612 Performed By: #### [id number] ####[facility] [address] [place], [place], [id number] PERFORM Comment Normal . [facility] Comment on above: Order Comment: Specimen Comment: [id number] Comment: Source.............CervixSp ecimen Comment: No. of containers..01 ThinPrep Vial Result Comment: Justin Delgado Compliance Aide (ASCP) Performed By: #### [id number] ####[facility] [address] [place], [place], [id number] RECOMM Comment Abnormal . [facility] Comment on above: Order Comment: Specimen Comment: [id number] Comment: Source.............CervixSp ecimen Comment: No. of containers..01 ThinPrep Vial Result Comment: Suggest follow up as clinically appropriate. Performed By: #### [id number] ####[facility] [address] [place], [place], [id number] SIGN Comment Normal . [facility] (more content not included)... [facility] Laboratory - Chemistry and C hemistry - challengeon 08-20-2022 HCG ( test) Ql (U) Negative [facility] No Panel InformationOrdered By: Sveta Cline on 07-13-2022 Bordatella pertussis DNA (MARELY) [facility] Bordatella pertussis DNA (MARELY) [facility] Bordetella pertussis IgM ant ibody assayOrdered By: Sveta Cline on 07-10-2022 B. pertussis IgM IA Qn (S) < 1.0 index 0.0-0.9 [facility] Comment on above: Negative <1.0 Border line 1.0 - 1.1 Positive >1.1 No Panel InformationOrdered By: Sveta Cline on 07-10-2022 Bordetella pertussis IgG Antibody 3.46 index 0.00-0.94 [facility] Comment on above: Negative <0.95 Equiv ocal 0.95 - 1.04 Positive >1.04 Serum Bordetella pertussis I gA antibody assay (units/volume)Ordered By: Sveta Cline on 07-10-2022 B. pertussis IgA Qn (S) 2.3 index 0.0-0.9 [facility] Comment on above: Negative <1.0 Border line 1.0 - 1.1 Positive >1.1Performed at: [address] [id number] Director: Thai Maddox MD, Phone: [phone] Cervical or vagninal specime n microscopic examination by cytology stain (reported asOrdered By: Jacqueline Martinez on 07-08-2022 Cytology report Cyto stain Doc (Cvx/Vag) Comment . [facility] Comment on above: The Pap [...] DNA Probe+sig amp Ql (Cvx) Negative Negative [facility] Comment on above: This nucleic acid am plification test detects fourteen high- risk HPV types (16,18,31,33,35,39,45,51,52,56,58,59,66,68)without differentiation. Laboratory - CytologyOrdered By: Jacqueline Martinez on 07-08-2022 [employer] Machine Operator Cyto stain Nom (Cvx/Vag) [ID] Comment . [facility] Comment on above: Jerry Rodriguez totechnologist (ASCP) Pathologist Cyto stain Nom (Cvx/Vag) [ID] Comment . [facility] Comment on above: Alysa Angela MD, Pathologist Recommended follow-up Cyto stain Nom (Cvx/Vag) Comment . [facility] Comment on above: Suggest follow up as clinically appropriate. Laboratory - Miscellaneous t estsOrdered By: Jacqueline Martinez on 07-08-2022 Service comment (Unsp spec) [Interp] Comment . [facility] Comment on above: This liquid based Th inPrep(R) pap test was screened withthe use of an image guided system. Service comment (Unsp spec) [Interp] . . [facility] Liquid-based cerv Pap + CT/G C by MARELY w reflex to high-risk HPV for ASCUSOrdered By: Jacqueline Martinez on 07-08-2022 Cytology report Cyto stain.thin prep Doc (Cvx/Vag) Comment . [facility] Comment on above: Criteria not met, HP V Genotype not performed.Performed at: [facility] - [facility] [address] [id number] Director: Alysa Angela MD, Phone: [phone] at: [facility] [address] [place], [place] [id number] Director: Gerald Rios MD, Phone: [phone] at: =G - [facility] [address] [id number] Director: Alysa Angela MD, Phone: [phone] No Panel InformationOrdered By: Jacqueline Martinez on 07-08-2022 Pathology report final diagnosis Narrative Comment . [facility] Comment on above: EPITHELIAL CELL ABNO RMALITY.LOW GRADE SQUAMOUS INTRAEPITHELIAL LESION (LSIL). R87.612 Influenza virus A and B and SARS-CoV-2 (COVID-19) Ag panel - Upper respiratory specimOrdered By: Dr. Doe on 06-16-2022 SARS-CoV-2 (COVID-19) RNA MARELY+probe Ql (Resp) [facility] Influenza virus A and B and SARS-CoV-2 (COVID-19) Ag panel - Upper respiratory specimOrdered By: Landon Doe on 06-15-2022 SARS-CoV-2 (COVID-19) RNA MARELY+probe Ql (Resp) [facility] No Panel InformationOrdered By: Nadia Bolanos on 06-15-2022 D-Dimer Quantitative (PE/DVT) 0.42 FEU/ug/m 0.27-0.49 [facility] Comment on above: NORMAL D-Dimer level (<0.50) indicates no DVT or PE. No Panel Informationon 06-[facility] FRONTAL/LATon [facility] XR Chest PA and Lateralon IMPRESSION: No acute radiographic abnormality. Decatizer: PSCB Transcribe Date/Time: Jun 15 2022 11:42A Dictated by : KRISTAN KING MD This examination was interpreted and the report reviewed and electronically signed by: KRISTAN KING MD on Jun 15 2022 11:42AM [facility] DIVISION OF RADIOLOGY * * *Final [...] soft tissues: Unremarkable. DIVISION OF RADIOLOGY Provider, [facility] - 06/15/2022 * * *Final Report* [...] Unremarkable. IMPRESSION IMPRESSION: No acute radiographic abnormality. Decatizer: PSCB Transcribe Date/Time: Jun 15 2022 11:42A Dictated by : KRISTAN KING MD This examination was interpreted and the report reviewed and electronically signed by: KRISTAN KING MD on Jun 15 2022 11:42AM EST [facility] Radiology Study observation (narrative) [facility] XR Chest PA and LateralOrder ed By: [facility]cf Provider on 06-15-2022 [facility] Thin prep Papanicolaou smear with manual screeningOrdered By: Jacqueline Martinez on 06-06-2022 Genital Culture G. vaginalis (Presumptive) [facility] Culture, urineOrdered By: Dony Martinez on 06-05-2022 Bacteria identified Cx Nom (U) Positive [facility] Gram stain for investigation of transfusion reactionOrdered By: Jacqueline Martinez on 06-04-2022 Microscopic observation Gram stain Nom (Unsp spec) [facility] Chlamydia trachomatis rRNA d etection by probe and target amplification methodOrdered By: Jacqueline Martinez on 06-03-2022 C. trachomatis rRNA MARELY+probe Ql (Unsp spec) Negative Negative [facility] Laboratory - Chemistry and C hemistry - challengeon 06-03-2022 Bilirubin Ql (U) Negative [facility] Glucose Ql (U) Negative [facility] Ketones Ql (U) Negative [facility] pH (U) 5.0 [pH] [facility] Specific gravity (U) [Rel density] 1.030 [facility] Urobilinogen (U) [Mass/Vol] Negative [facility] Laboratory - Hematology and Cell countson 06-03-2022 Hemoglobin Ql (U) Moderate [facility] Laboratory - Microbiology an d Antimicrobial susceptibilityOrdered By: Jacqueline Martinez on 06-03-2022 N. gonorrhoeae DNA MARELY+probe Ql (Unsp spec) Negative Negative [facility] Comment on above: Performed at: =G - [address], [place] [id number] Director: Alysa Angela MD, Phone: [phone] Laboratory - Specimen inform ationon 06-03-2022 Clarity (U) Clear [facility] Color (U) Yellow [facility] Laboratory - Urinalysison Nitrite Ql (U) Negative [facility] Protein Ql (U) Negative [facility] No Panel Informationon 06-03 POC Bacterial Vaginitis (Rapid) Positive [facility] POC Trichomonas (Rapid) Negative [facility] Urine Leukocytes Negatve [facility] Urine Non-Hemolyzed Blood [facility] Whole blood hemoglobin A1c/t otal hemoglobin ratio (mass fraction)Ordered By: Dr. Hickman on 05-20-2022 HbA1c (Bld) [Mass fraction] 5.1 % 3.8-5.6 [facility] Comment on above: Normal < 5.7 % Predi abetic 5.7 - 6.4 % Diabetic >or= 6.5 % Please note range changes. UA DIP, URINE (POC)on 2021 BILIRUBIN UA (POCT) Negative Negative [facility] CLARITY UA (POCT) Clear [facility] COLOR UA (POCT) Yellow [facility] GLUCOSE UA (POCT) Negative Negative mg/dL [facility] HEMOGLOBIN/BLOOD UA (POCT) Moderate Abnormal Negative [facility] KETONE UA (POCT) Trace Negative mg/dL [facility] LEUKOCYTES UA (POCT) Negative Negative [facility] NITRITE UA (POCT) Negative Negative [facility] PH UA (POCT) 5.5 4.5 - 8.0 [facility] Protein Ql (U) Negative Negative mg/dL [facility] SPECIFIC GRAVITY UA (POCT) 1.025 1.005 - 1.030 [facility] UROBILINOGEN UA (POCT) 0.2 E.U./dL Claudia l E.U./dL [facility] Absolute lymphocyte counton 10-31-2021 Lymphocytes Auto (Unsp spec) [#/Vol] 1.79 10*3/uL 0.83-4.51 [facility] Work Phone: Basophil percentageon 2021 Basophils/100 WBC (Bld) 1.6 % 0-1 [facility] Work Phone: Bilirubin [Mass/Vol] 0.30 mg/dL 0.20-1.00 [facility] Work Phone: Comment on above: For patients on eltr ombopag therapy, use of Dimension [place] TBIL is not recommended. Chloride [Moles/Vol] 107 mmol/L 98-107 [facility] Work Phone: Eosinophils/100 WBC (Bld) 4.3 % 0-5 [facility] Work Phone: Glucose [Mass/Vol] 109 mg/dL 74-106 [facility] Work Phone: Comment on above: Fasting Glucose resu lt from 100 to 125 mg/dL suggests IMPAIRED HOMEOSTASIS per A.D.A. criteria. Neutrophils (Bld) [#/Vol] 3.7 10*3/uL 2.0-7.7 [facility] Work Phone: Neutrophils/100 WBC (Bld) 59.4 % 47-70 [facility] Work Phone: Potassium [Moles/Vol] 4.1 mmol/L 3.5-5.1 [facility] Work Phone: Protein [Mass/Vol] 7.3 g/dL 6.4-8.2 [facility] Work Phone: Sodium [Moles/Vol] 140 mmol/L 136-145 [facility] Work Phone: WBC (Bld) [#/Vol] 6.3 10*3/uL 4.4-11.0 [facility] Work Phone: Blood erythrocytes count (nu mber/volume)on 10-31-2021 RBC (Bld) [#/Vol] 4.43 10*6/uL 4.2-5.4 [facility] Work Phone: Blood hemoglobin measurement (mass/volume)on 10-31-2021 Hemoglobin (Bld) [Mass/Vol] 13.8 g/dL 12.0-15.0 [facility] Work Phone: Blood lymphocytes/100 leukoc yteson 10-31-2021 Lymphocytes/100 WBC (Bld) 28.6 % 19-41 [facility] Work Phone: Blood monocytes/100 leukocyt eson 10-31-2021 Monocytes/100 WBC (Bld) 5.9 % 0-10 [facility] Work Phone: Blood platelet mean volumeon 10-31-2021 Platelet mean volume (Bld) [Entitic vol] 9.6 fL 6.2-12.0 [facility] Work Phone: Determination of erythrocyte mean corpuscular volume (MCV)on 10-31-2021 MCV (RBC) [Entitic vol] 91.2 fL 81-99 [facility] Work Phone: Hematocrit Auto (Bld) [Volum e fraction]on 10-31-2021 Hematocrit (Bld) [Volume fraction] 40.4 % 37-47 [facility] Work Phone: Laboratory - Chemistry and C hemistry - challengeon 10-31-2021 ALP [Catalytic activity/Vol] 75 U/L 45-117 [facility] Work Phone: ALT [Catalytic activity/Vol] 21 U/L 13-56 [facility] Work Phone: CO2 [Moles/Vol] 29.0 mmol/L 21.0-32.0 [facility] Work Phone: Globulin (S) [Mass/Vol] 3.6 g/dL 2.2-4.2 [facility] Work Phone: Urea nitrogen/Creatinine [Mass ratio] 18.6 mg/mg 10-20 [facility] Work Phone: Laboratory - Hematology and Cell countson 10-31-2021 Erythrocyte distribution width (RBC) [Entitic vol] 40.5 fL 35.1-43.9 [facility] Work Phone: Erythrocyte distribution width (RBC) [Ratio] 12.2 % 11.6-14.6 [facility] Work Phone: Immature granulocytes/100 WBC (Bld) 0.200 % 0.0-0.9 [facility] Work Phone: Comment on above: IG% - Immature Granu locytes (promyelocytes, myelocytes and metamyelocytes) > 1% indicates that a LEFT SHIFT is Present. MCH (RBC) [Entitic mass] 31.2 pg 27.0-32.0 [facility] Work Phone: Nucleated RBC/100 WBC (Bld) [Ratio] 0 % 0-5 [facility] Work Phone: MCHC Auto (RBC) [Mass/Vol]on 10-31-2021 MCHC (RBC) [Mass/Vol] 34.2 g/dL 32-36 [facility] Work Phone: No Panel Informationon 10-31 Estimated GFR (MDRD) Amer 99 mL/min >60 [facility] Work Phone: Comment on above: GFR Calc Estimated GFR (MDRD) Non-Af Amer 82 mL/min >60 [facility] Work Phone: Comment on above: Non- GFR Calc Vitamin D 25-Hydroxy 39.8 ng/mL [facility] Work Phone: Comment on above: Vitamin D 25(OH) Sta tus Range Deficiency <20 ng/mL (50nmol/L) Insufficiency 20 - 30 ng/mL (50 - 75 nmol/L) Sufficiency 30 - 100 ng/mL (75 - 250 nmol/L) Toxicity >100 ng/mL (>250 nmol/L) Platelets bldon 10-31-2021 Platelets (Bld) [#/Vol] 278 10*3/uL 150-450 [facility] Work Phone: Serum or plasma albumin patrizia urement (mass/volume)on 10-31-2021 Albumin [Mass/Vol] 3.7 g/dL 3.2-5.0 [facility] Work Phone: Serum or plasma albumin/glob ulin mass ratioon 10-31-2021 Albumin/Globulin [Mass ratio] 1.0 {ratio} 0.9-2.4 [facility] Work Phone: Serum or plasma calcium patrizia urement (mass/volume)on 10-31-2021 Calcium [Mass/Vol] 8.8 mg/dL 8.5-10.1 [facility] Work Phone: Serum or plasma creatinine m easurement (mass/volume)on 10-31-2021 Creatinine [Mass/Vol] 0.81 mg/dL 0.55-1.02 [facility] Work Phone: Comment on above: The validity of the calculated GFR & GFRAA in patients over 70 years has not been determined. Clinical correlation is essential. Serum or plasma urea nitroge n measurement (mass/volume)on 10-31-2021 Urea nitrogen [Mass/Vol] 15 mg/dL 7-18 [facility] Work Phone: Thin prep Papanicolaou smear with manual screeningon 10-31-2021 Thin prep Papanicolaou smear with manual screening 13 U/L 15-37 [facility] Work Phone: Thin prep Papanicolaou smear with manual screening 4 5-15 [facility] Work Phone: Laboratory - Microbiology an d Antimicrobial susceptibilityon 09-07-2021 SARS-CoV-2 (COVID-19) RNA MARELY+probe Ql (Unsp spec) Not detected [facility] Work Phone: No Panel Informationon 09-07 Influenza Types A,B Rapid (Clinic) Not detected [facility] Work Phone: Absolute lymphocyte counton 07-10-2021 Lymphocytes Auto (Unsp spec) [#/Vol] 1.93 10*3/uL 0.83-4.51 [facility] Work Phone: Basophil percentageon 2021 Basophils/100 WBC (Bld) 1.2 % 0-1 [facility] Work Phone: [phone] Eosinophils/100 WBC (Bld) 1.7 % 0-5 [facility] Work Phone: Neutrophils (Bld) [#/Vol] 3.9 10*3/uL 2.0-7.7 [facility] Work Phone: Neutrophils/100 WBC (Bld) 60.3 % 47-70 [facility] Work Phone: WBC (Bld) [#/Vol] 6.4 10*3/uL 4.4-11.0 [facility] Work Phone: Blood erythrocytes count (nu mber/volume)on 07-10-2021 RBC (Bld) [#/Vol] 4.51 10*6/uL 4.2-5.4 [facility] Work Phone: Blood hemoglobin measurement (mass/volume)on 07-10-2021 Hemoglobin (Bld) [Mass/Vol] 13.7 g/dL 12.0-15.0 [facility] Work Phone: Blood lymphocytes/100 leukoc yteson 07-10-2021 Lymphocytes/100 WBC (Bld) 30.0 % 19-41 [facility] Work Phone: Blood monocytes/100 leukocyt eson 07-10-2021 Monocytes/100 WBC (Bld) 6.5 % 0-10 [facility] Work Phone: Blood platelet mean volumeon 07-10-2021 Platelet mean volume (Bld) [Entitic vol] 10.0 fL 6.2-12.0 [facility] Work Phone: Determination of erythrocyte mean corpuscular volume (MCV)on 07-10-2021 MCV (RBC) [Entitic vol] 89.8 fL 81-99 [facility] Work Phone: Hematocrit Auto (Bld) [Volum e fraction]on 07-10-2021 Hematocrit (Bld) [Volume fraction] 40.5 % 37-47 [facility] Work Phone: Laboratory - Hematology and Cell countson 07-10-2021 Erythrocyte distribution width (RBC) [Entitic vol] 40.0 fL 35.1-43.9 [facility] Work Phone: Erythrocyte distribution width (RBC) [Ratio] 12.1 % 11.6-14.6 [facility] Work Phone: Immature granulocytes/100 WBC (Bld) 0.300 % 0.0-0.9 [facility] Work Phone: [phone] Comment on above: IG% - Immature Granu locytes (promyelocytes, myelocytes and metamyelocytes) > 1% indicates that a LEFT SHIFT is Present. MCH (RBC) [Entitic mass] 30.4 pg 27.0-32.0 [facility] Work Phone: Nucleated RBC/100 WBC (Bld) [Ratio] 0 % 0-5 [facility] Work Phone: MCHC Auto (RBC) [Mass/Vol]on 07-10-2021 MCHC (RBC) [Mass/Vol] 33.8 g/dL 32-36 [facility] Work Phone: No Panel Informationon 07-10 Thyroid Stimulating Hormone (TSH) 1.66 uIU/mL 0.358-3.74 [facility] Work Phone: Platelets bldon 07-10-2021 Platelets (Bld) [#/Vol] 295 10*3/uL 150-450 [facility] Work Phone: Hm Colonoscopyon 11-07-2020 [...] in three cassettes. Gross examination performed at [facility], [address] [place] [address] 11/07/2020 10:52:00 PM COPATHPLUS CONVERTED CLINICAL HISTORY Z80.0, LMP: N/A A: R/O CELIAC B: R/O H. PYLORI D: R/O MICROSCOPIC COLITIS COPATHPLUS CONVERTED SPECIMENS RANDOM DUODENUM, BIOPSY GASTRIC, BIOPSY RANDOM TERMINAL ILEUM, BIOPSY COLON, BIOPSY COPATHPLUS CONVERTED COMPLETE REPORT Specimen originated from [facility] Specimen #: [id number] Submitting Physician: SADA SNYDER MD, MPH FINAL [...] in three cassettes. Gross examination performed at [facility], [address] [place] [address] 11/07/2020 10:52:00 PM Date of Report: 11/11/2020 Date of Procedure: 11/07/2020 Date of Receipt: 11/07/2020 Submitted by: SADA SNYDER MD, MPH Location: L010 Diagnostic interpretation performed at [place] [address]. [place] Number: [id number] COPATHPLUS CONVERTED ORDERING PROVIDER Ordering Provider: SADA TOLENTINOATHROB Lab Results - CONVERTED SURGICAL PATHOLOGY (11/07/2020 [...] EDT) Lab Result (more content not included)... [facility] XR Chest PA and Lateralon IMPRESSION: No acute cardiopulmonary process. Decatizer: PSCLai Transcribe Date/Time: Feb 05 2020 12:13P Dictated by : AURE MACKAY MD This examination was interpreted and the report reviewed and electronically signed by: AURE MACKAY MD on Feb 05 2020 12:15PM [facility] DIVISION OF RADIOLOGY * * *Final [...] are intact DIVISION OF RADIOLOGY [facility] * * *Final Report* [...] intact IMPRESSION IMPRESSION: No acute cardiopulmonary process. Decatizer: PSCB Transcribe Date/Time: Feb 05 2020 12:13P Dictated by : AURE MACKAY MD This examination was interpreted and the report reviewed and electronically signed by: AURE MACKAY MD on Feb 05 2020 12:15PM EST [facility] Radiology Study observation (narrative) [facility] XR Chest PA and LateralOrder ed By: Ccf Provider on 02-05-2020 [facility] Vital Signs Date Time Vital Sign Value Performing Clinician Facility 08-30-2024 09:56-0400 Body height 172.72 cm Ashley MONTANOC Work Phone: [facility] 08-30-2024 09:56-0400 Body mass index (BMI) [Ratio] 36.8 kg/m2 Ashley Gomez NP-C Work Phone: [facility] 08-30-2024 09:56-0400 Body weight 109.93 kg Ashley Gomez NP-C Work Phone: [facility] 08-30-2024 09:56-0400 Diastolic blood pressure 61 mm[Hg] Ashley Gomez FILTER PRESS OPERATOR-C Work Phone: [facility] 08-30-2024 09:56-0400 Systolic blood pressure 97 mm[Hg] Ashley Gomez FILTER PRESS OPERATOR-C Work Phone: [facility] 05-17-2024 09:30-0500 Diastolic blood pressure 72 mm[Hg] Ashley Gomez APN - INTERFACE ANALYST Work Phone: [facility] [employer] 05-17-2024 09:30-0500 Systolic blood pressure 136 mm[Hg] Ashley Gomez APN - INTERFACE ANALYST Work Phone: [facility] [employer] 05-17-2024 09:12-0500 Body height 172.7 cm Ashley Gomez APN - INTERFACE ANALYST Work Phone: [facility] [employer] 05-17-2024 09:12-0500 Body mass index (BMI) [Ratio] 37.5 kg/m2 Ashley Gomez APN - INTERFACE ANALYST Work Phone: [facility] [employer] 05-17-2024 09:12-0500 Body weight 111.86 kg Ashley Gomez APN - INTERFACE ANALYST Work Phone: [facility] 05-17-2024 09:12-0500 Heart rate 93 /min Ashley Gomez APN - INTERFACE ANALYST Work Phone: [facility] [employer] 05-17-2024 09:12-0500 SaO2% (BldA) [Mass fraction] 96 % Ashley Gomez APN - INTERFACE ANALYST Work Phone: [facility] 12-22-2023 09:03-0400 Body height 172.7 cm Fallon Pop MD Work Phone: [facility] 12-22-2023 09:03-0400 Body mass index (BMI) [Ratio] 37.24 kg/m2 Fallon Pop MD Work Phone: [facility] 12-22-2023 09:03-0400 Body temperature 96.6 [degF] Fallon Pop MD Work Phone: [facility] 12-22-2023 09:03-0400 Body weight 111.1 kg Fallon Pop MD Work Phone: [facility] 12-22-2023 09:03-0400 Diastolic blood pressure 75 mm[Hg] Fallon Pop MD Work Phone: [facility] 12-22-2023 09:03-0400 Heart rate 97 /min Fallon Pop MD Work Phone: [facility] 12-22-2023 09:03-0400 Systolic blood pressure 114 mm[Hg] Fallon Pop MD Work Phone: [facility] 11-10-2023 10:20-0400 Diastolic blood pressure 74 mm[Hg] Ashley Gomez APN - INTERFACE ANALYST Work Phone: [facility] [employer] 11-10-2023 10:20-0400 Systolic blood pressure 128 mm[Hg] Ashley Gomez APN - INTERFACE ANALYST Work Phone: [facility] [employer] 11-10-2023 09:55-0400 Body height 172.7 cm Ashley Gomez APN - INTERFACE ANALYST Work Phone: [facility] [employer] 11-10-2023 09:55-0400 Body mass index (BMI) [Ratio] 36.34 kg/m2 Ashley Gomez APN - INTERFACE ANALYST Work Phone: [facility] [employer] 11-10-2023 09:55-0400 Body weight 108.41 kg Ashley Gomez APN - INTERFACE ANALYST Work Phone: [facility] [employer] 11-10-2023 09:55-0400 Heart rate 80 /min Ashlye Gomez APN - INTERFACE ANALYST Work Phone: [facility] [employer] 11-10-2023 09:55-0400 SaO2% (BldA) [Mass fraction] 98 % Ashley Gomez APN - INTERFACE ANALYST Work Phone: [facility] [employer] 10-18-2023 15:55-0400 Diastolic blood pressure 72 mm[Hg] Nahomi Sachse DO Work Phone: [facility] [employer] 10-18-2023 15:55-0400 Heart rate 78 /min Nahomi Sachse DO Work Phone: [facility] [employer] 10-18-2023 15:55-0400 Respiratory rate 14 /min Nahomi Sachse DO Work Phone: [facility] [employer] 10-18-2023 15:55-0400 SaO2% (BldA) [Mass fraction] 98 % Nahomi Sachse DO Work Phone: [facility] 10-18-2023 15:55-0400 Systolic blood pressure 119 mm[Hg] Nahomi Sachse DO Work Phone: [facility] 10-18-2023 12:38-0400 Body mass index (BMI) [Ratio] 36.49 kg/m2 Nahomi Sachse DO Work Phone: [facility] 10-18-2023 12:38-0400 Body temperature 98.01 [degF] Nahomi Sachse DO Work Phone: [facility] 10-18-2023 12:38-0400 Body weight 108.86 kg Nahomi Sachse DO Work Phone: [facility] 07-14-2023 09:43-0400 Body height 172.[address] Geeta Hickman Work Phone: [facility] 07-14-2023 09:29-0400 Body mass index (BMI) [Ratio] 36.2 kg/m2 Dr. Geeta Hickman Work Phone: [facility] 07-14-2023 09:29-0400 Body weight 108.[address] Geeta Hickman Work Phone: [facility] 07-14-2023 09:29-0400 Diastolic blood pressure 82 mm[Hg] Dr. Geeta Hickman Work Phone: [facility] 07-14-2023 09:29-0400 Systolic blood pressure 124 mm[Hg] Dr. Geeta Hickman Work Phone: [facility] 07-08-2023 08:51-0400 Body height 172.7 cm Maria Elena Carvajal APRN.INTERFACE ANALYST Work Phone: [facility] 07-08-2023 08:51-0400 Body weight 108 kg Maria Elena Carvajal APRN.INTERFACE ANALYST Work Phone: [facility] 07-08-2023 08:51-0400 Diastolic blood pressure 79 mm[Hg] Maria Elena Carvajal APN.INTERFACE ANALYST Work Phone: [facility] 07-08-2023 08:51-0400 Heart rate 97 /min Maria Elena Carvajal APN.INTERFACE ANALYST Work Phone: [facility] 07-08-2023 08:51-0400 Systolic blood pressure 134 mm[Hg] Maria Elena Carvajal APN.INTERFACE ANALYST Work Phone: [facility] 07-05-2023 14:16-0400 Body temperature 98 [degF] Dr. Geeta Hickman Work Phone: [facility] 07-05-2023 14:16-0400 Diastolic blood pressure 82 mm[Hg] Dr. Geeta Hickman Work Phone: [facility] 07-05-2023 14:16-0400 Heart rate 77 /min Dr. Geeta Hickman Work Phone: [facility] 07-05-2023 14:16-0400 Respiratory rate 16 /min Dr. Geeta Hickman Work Phone: [facility] 07-05-2023 14:16-0400 SaO2% (BldA) [Mass fraction] 98 % Dr. Geeta Hickman Work Phone: [facility] 07-05-2023 14:16-0400 Systolic blood pressure 146 mm[Hg] Dr. Geeta Hickman Work Phone: [facility] 07-05-2023 10:57-0400 Body height 172.[address] Geeta Hickman Work Phone: [facility] 07-05-2023 10:57-0400 Body mass index (BMI) [Ratio] 35.2 kg/m2 Dr. Geeta Hickman Work Phone: [facility] 07-05-2023 10:57-0400 Body weight 105.[address] Geeta Hickman Work Phone: [facility] 07-04-2023 11:00-0400 Body temperature 97.5 [degF] Dr. Geeta Hickman Work Phone: [facility] 07-04-2023 11:00-0400 Diastolic blood pressure 57 mm[Hg] Dr. Geeta Hickman Work Phone: [facility] 07-04-2023 11:00-0400 Heart rate 88 /min Dr. Geeta Hickman Work Phone: [facility] 07-04-2023 11:00-0400 Respiratory rate 16 /min Dr. Geeta Hickman Work Phone: [facility] 07-04-2023 11:00-0400 SaO2% (BldA) [Mass fraction] 97 % Dr. Geeta Hickman Work Phone: [facility] 07-04-2023 11:00-0400 Systolic blood pressure 115 mm[Hg] Dr. Geeta Hickman Work Phone: [facility] 07-04-2023 07:28-0400 Body height 172.[address] Geeta Hickman Work Phone: [facility] 07-04-2023 07:28-0400 Body mass index (BMI) [Ratio] 36.5 kg/m2 Dr. Geeta Hickman Work Phone: [facility] 07-04-2023 07:28-0400 Body weight [address] Geeta Hickman Work Phone: [facility] 06-18-2023 09:33-0400 Body mass index (BMI) [Ratio] 37.13 kg/m2 Ashley Gomez APN - INTERFACE ANALYST Work Phone: [facility] 06-18-2023 09:33-0400 Body weight 110.77 kg Ashley Gomez APN - INTERFACE ANALYST Work Phone: [facility] 06-18-2023 09:33-0400 Diastolic blood pressure 74 mm[Hg] Ashley Gomez APN - INTERFACE ANALYST Work Phone: [facility] 06-18-2023 09:33-0400 Heart rate 79 /min Ashley Gomez APN - INTERFACE ANALYST Work Phone: [facility] 06-18-2023 09:33-0400 SaO2% (BldA) [Mass fraction] 98 % Ashley Jason APN - INTERFACE ANALYST Work Phone: [facility] 06-18-2023 09:33-0400 Systolic blood pressure 118 mm[Hg] Ashley Jason APN - INTERFACE ANALYST Work Phone: [facility] 06-10-2023 08:09-0400 Body temperature 97.4 [degF] Dr. Geeta Hickman Work Phone: [facility] 06-10-2023 08:09-0400 Diastolic blood pressure 83 mm[Hg] Dr. Geeta Hickman Work Phone: [facility] 06-10-2023 08:09-0400 Heart rate 76 /min Dr. Geeta Hickman Work Phone: [facility] 06-10-2023 08:09-0400 Respiratory rate 16 /min Dr. Geeta Hickman Work Phone: [facility] 06-10-2023 08:09-0400 SaO2% (BldA) [Mass fraction] 97 % Dr. Geeta Hickman Work Phone: [facility] 06-10-2023 08:09-0400 Systolic blood pressure 126 mm[Hg] Dr. Geeta Hickman Work Phone: [facility] 06-10-2023 06:25-0400 Body height 172.[address] Geeta Hickman Work Phone: [facility] 06-10-2023 06:25-0400 Body mass index (BMI) [Ratio] 37.2 kg/m2 Dr. Geeta Hickman Work Phone: [facility] 06-10-2023 06:25-0400 Body weight [address] Geeta Hickman Work Phone: [facility] 04-28-2023 10:04-0500 Body height 172.7 cm Ashley Gomez APN - INTERFACE ANALYST Work Phone: [facility] 04-28-2023 10:04-0500 Body mass index (BMI) [Ratio] 36.49 kg/m2 Ashley Gomez APN - INTERFACE ANALYST Work Phone: [facility] 04-28-2023 10:04-0500 Body weight 108.86 kg Ashley Jason APN - INTERFACE ANALYST Work Phone: [facility] 04-28-2023 10:04-0500 Diastolic blood pressure 71 mm[Hg] Ashley Gomez APN - INTERFACE ANALYST Work Phone: [facility] 04-28-2023 10:04-0500 Heart rate 92 /min Ahsley Gomez APN - INTERFACE ANALYST Work Phone: [facility] 04-28-2023 10:04-0500 SaO2% (BldA) [Mass fraction] 97 % Ashley Gomez APN - INTERFACE ANALYST Work Phone: [facility] 04-28-2023 10:04-0500 Systolic blood pressure 139 mm[Hg] Ashley Gomez APN - INTERFACE ANALYST Work Phone: [facility] 04-21-2023 19:18-0500 Body temperature 97.6 [degF] [facility] 04-21-2023 19:18-0500 Diastolic blood pressure 76 mm[Hg] [facility] 04-21-2023 19:18-0500 Heart rate 64 /min [facility] 04-21-2023 19:18-0500 Respiratory rate 16 /min [facility] 04-21-2023 19:18-0500 SaO2% (BldA) [Mass fraction] 99 % [facility] 04-21-2023 19:18-0500 Systolic blood pressure 134 mm[Hg] [facility] 04-21-2023 16:16-0500 Body mass index (BMI) [Ratio] 36.6 kg/m2 [facility] 04-21-2023 16:16-0500 Body weight 109.1 kg [facility] 04-21-2023 14:41-0500 Body height 172.72 cm [facility] 12-16-2022 10:39-0400 Body height 172.7 cm Ashley Gomez APN - INTERFACE ANALYST Work Phone: [facility] [employer] 12-16-2022 10:39-0400 Body mass index (BMI) [Ratio] 33.3 kg/m2 Ashley Gomez APN - INTERFACE ANALYST Work Phone: [facility] [employer] 12-16-2022 10:39-0400 Body weight 99.34 kg Ashley Jason APN - INTERFACE ANALYST Work Phone: [facility] [employer] 12-16-2022 10:39-0400 Diastolic blood pressure 72 mm[Hg] Ashley Gomez APN - INTERFACE ANALYST Work Phone: [facility] [employer] 12-16-2022 10:39-0400 Heart rate 78 /min Ashley Gomez APN - INTERFACE ANALYST Work Phone: [facility] [employer] 12-16-2022 10:39-0400 SaO2% (BldA) [Mass fraction] 97 % Ashley Gomez APN - INTERFACE ANALYST Work Phone: [facility] [employer] 12-16-2022 10:39-0400 Systolic blood pressure 124 mm[Hg] Ashley Gomez APN - INTERFACE ANALYST Work Phone: [facility] [employer] 10-30-2022 07:50-0400 Body height 172.7 cm Ashley Jason APN - INTERFACE ANALYST Work Phone: [employer] 10-30-2022 07:50-0400 Body mass index (BMI) [Ratio] 33.3 kg/m2 Ashley Jason APN - INTERFACE ANALYST Work Phone: [employer] 10-30-2022 07:50-0400 Body weight 99.34 kg Ashley Jason APN - INTERFACE ANALYST Work Phone: [facility] [employer] 10-30-2022 07:50-0400 Diastolic blood pressure 66 mm[Hg] Ashley Gomez APN - INTERFACE ANALYST Work Phone: [facility] 10-30-2022 07:50-0400 Heart rate 80 /min Ashley Gomez APN - INTERFACE ANALYST Work Phone: [facility] 10-30-2022 07:50-0400 SaO2% (BldA) [Mass fraction] 98 % Ashley Gomez APN - INTERFACE ANALYST Work Phone: [facility] 10-30-2022 07:50-0400 Systolic blood pressure 118 mm[Hg] Ashley Gomez APN - INTERFACE ANALYST Work Phone: [facility] 08-20-2022 13:35-0400 Body height 172.[address] Geeta Hickman Work Phone: [facility] 07-10-2022 09:05-0400 Body height 172.[address] Geeta Hickman Work Phone: [facility] 07-10-2022 09:05-0400 Body mass index (BMI) [Ratio] 36.1 kg/m2 Dr. Geeta Hickman Work Phone: [facility] 07-10-2022 09:05-0400 Body temperature 97.5 [degF] Dr. Geeta Hickman Work Phone: [facility] 07-10-2022 09:05-0400 Body weight 107.[address] Geeta Hickman Work Phone: [facility] 07-10-2022 09:05-0400 Diastolic blood pressure 82 mm[Hg] Dr. Geeta Hickman Work Phone: [facility] 07-10-2022 09:05-0400 Heart rate 86 /min Dr. Geeta Hickman Work Phone: [facility] 07-10-2022 09:05-0400 Respiratory rate 18 /min Dr. Geeta Hickman Work Phone: [facility] 07-10-2022 09:05-0400 SaO2% (BldA) [Mass fraction] 96 % Dr. Geeta Hickman Work Phone: [facility] 07-10-2022 09:05-0400 Systolic blood pressure 130 mm[Hg] Dr. Geeta Hickman Work Phone: [facility] 07-08-2022 09:26-0400 Body mass index (BMI) [Ratio] 36.8 kg/m2 Dr. Geeta Hickman Work Phone: [facility] 07-08-2022 09:26-0400 Body weight 109.[address] Geeta Hickman Work Phone: [facility] 07-08-2022 09:26-0400 Diastolic blood pressure 80 mm[Hg] Dr. Geeta Hickman Work Phone: [facility] 07-08-2022 09:26-0400 Systolic blood pressure 128 mm[Hg] Dr. Geeta Hickman Work Phone: [facility] 06-24-2022 10:06-0400 Body mass index (BMI) [Ratio] 36.5 kg/m2 Dr. Geeta Hickman Work Phone: [facility] 06-24-2022 10:06-0400 Body temperature 95.4 [degF] Dr. Geeta Hickman Work Phone: [facility] 06-24-2022 10:06-0400 Body weight 108.[address] Geeta Hickman Work Phone: [facility] 06-24-2022 10:06-0400 Diastolic blood pressure 82 mm[Hg] Dr. Geeta Hickman Work Phone: [facility] 06-24-2022 10:06-0400 Heart rate 92 /min Dr. Geeta Hickman Work Phone: [facility] 06-24-2022 10:06-0400 Respiratory rate 18 /min Dr. Geeta Hickman Work Phone: [facility] 06-24-2022 10:06-0400 SaO2% (BldA) [Mass fraction] 98 % Dr. Geeta Hickman Work Phone: [facility] 06-24-2022 10:06-0400 Systolic blood pressure 134 mm[Hg] Dr. Geeta Hickman Work Phone: [facility] 06-16-2022 01:29-0400 Heart rate 89 /min Dr. Geeta Hickman Work Phone: [facility] 06-16-2022 01:29-0400 Respiratory rate 18 /min Dr. Geeta Hickman Work Phone: [facility] 06-16-2022 01:29-0400 SaO2% (BldA) [Mass fraction] 100 % Dr. Geeta Hickman Work Phone: [facility] 06-15-2022 22:12-0400 Body height 172.[address] Geeta Hickman Work Phone: [facility] 06-15-2022 22:12-0400 Body mass index (BMI) [Ratio] 36.8 kg/m2 Dr. Geeta Hickman Work Phone: [facility] 06-15-2022 22:12-0400 Body temperature 98.8 [degF] Dr. Geeta Hickman Work Phone: [facility] 06-15-2022 22:12-0400 Body weight [address] Geeta Hickman Work Phone: [facility] 06-15-2022 22:12-0400 Diastolic blood pressure 104 mm[Hg] Dr. Geeta Hickman Work Phone: [facility] 06-15-2022 22:12-0400 Systolic blood pressure 127 mm[Hg] Dr. Geeta Hickman Work Phone: [facility] 06-15-2022 11:05-0400 Body temperature 97.81 [degF] Nadia Bogner PA-C Work Phone: [facility] 06-15-2022 11:05-0400 Body weight 109.77 kg Nadia Bogner PA-C Work Phone: [facility] 06-15-2022 11:05-0400 Diastolic blood pressure 78 mm[Hg] Nadia Bogner PA-C Work Phone: [facility] 06-15-2022 11:05-0400 Heart rate 110 /min Nadia Bogner PA-C Work Phone: [facility] 06-15-2022 11:05-0400 Respiratory rate 20 /min Nadia Bogner PA-C Work Phone: [facility] 06-15-2022 11:05-0400 SaO2% (BldA) [Mass fraction] 96 % Nadia Bogner PA-C Work Phone: [facility] 06-15-2022 11:05-0400 Systolic blood pressure 136 mm[Hg] Nadia Bogner PA-C Work Phone: [facility] 06-09-2022 06:48-0400 Body temperature 97.6 [degF] Dr. Geeta Hickman Work Phone: [facility] 06-09-2022 06:48-0400 Diastolic blood pressure 84 mm[Hg] Dr. Geeta Hickman Work Phone: [facility] 06-09-2022 06:48-0400 Heart rate 112 /min Dr. Geeta Hickman Work Phone: [facility] 06-09-2022 06:48-0400 Respiratory rate 15 /min Dr. Geeta Hickman Work Phone: [facility] 06-09-2022 06:48-0400 SaO2% (BldA) [Mass fraction] 98 % Dr. Geeta Hickman Work Phone: [facility] 06-09-2022 06:48-0400 Systolic blood pressure 122 mm[Hg] Dr. Geeta Hickman Work Phone: [facility] 06-03-2022 15:19-0500 Body height 172.[address] Geeta Hickman Work Phone: [facility] 06-03-2022 15:19-0500 Body mass index (BMI) [Ratio] 36.2 kg/m2 Dr. Geeta Hickman Work Phone: [facility] 06-03-2022 15:19-0500 Body weight 108.[address] Geeta Hickman Work Phone: [facility] 06-03-2022 15:19-0500 Diastolic blood pressure 82 mm[Hg] Dr. Geeta Hickman Work Phone: [facility] 06-03-2022 15:19-0500 Systolic blood pressure 120 mm[Hg] Dr. Geeta Hickman Work Phone: [facility] 05-20-2022 07:38-0500 Body height 172.[address] Geeta Hickman Work Phone: [facility] 05-20-2022 07:38-0500 Body mass index (BMI) [Ratio] 36.1 kg/m2 Dr. Geeta Hickman Work Phone: [facility] 05-20-2022 07:38-0500 Body temperature 96 [degF] Dr. Geeta Hickman Work Phone: [facility] 05-20-2022 07:38-0500 Body weight 107.[address] Geeta Hickman Work Phone: [facility] 05-20-2022 07:38-0500 Diastolic blood pressure 80 mm[Hg] Dr. Geeta Hickman Work Phone: [facility] 05-20-2022 07:38-0500 Heart rate 86 /min Dr. Geeta Hickman Work Phone: [facility] 05-20-2022 07:38-0500 Respiratory rate 16 /min Dr. Geeta Hickman Work Phone: [facility] 05-20-2022 07:38-0500 SaO2% (BldA) [Mass fraction] 99 % Dr. Geeta Hickman Work Phone: [facility] 05-20-2022 07:38-0500 Systolic blood pressure 122 mm[Hg] Dr. Geeta Hickman Work Phone: [facility] 05-05-2022 06:42-0500 Body height 172.[address] Geeta Hickman Work Phone: [facility] 05-05-2022 06:42-0500 Body mass index (BMI) [Ratio] 36.1 kg/m2 Dr. Geeta Hickman Work Phone: [facility] 05-05-2022 06:42-0500 Body temperature 96.5 [degF] Dr. Geeta Hickman Work Phone: [facility] 05-05-2022 06:42-0500 Body weight 107.[address] Geeta Hickman Work Phone: [facility] 05-05-2022 06:42-0500 Diastolic blood pressure 82 mm[Hg] Dr. Geeta Hickman Work Phone: [facility] 05-05-2022 06:42-0500 Heart rate 84 /min Dr. Geeta Hickman Work Phone: [facility] 05-05-2022 06:42-0500 Respiratory rate 18 /min Dr. Geeta Hickman Work Phone: [facility] 05-05-2022 06:42-0500 SaO2% (BldA) [Mass fraction] 97 % Dr. Geeta Hickman Work Phone: [facility] 05-05-2022 06:42-0500 Systolic blood pressure 124 mm[Hg] Dr. Geeta Hickman Work Phone: [facility] 04-01-2022 10:07-0500 Body height 172.[address] Geeta Hickman Work Phone: [facility] 04-01-2022 10:07-0500 Body mass index (BMI) [Ratio] 36.1 kg/m2 Dr. Geeta Hickman Work Phone: [facility] 04-01-2022 10:07-0500 Body temperature 96.8 [degF] Dr. Geeta Hickman Work Phone: [facility] 04-01-2022 10:07-0500 Body weight 107.[address] Geeta Hickman Work Phone: [facility] 04-01-2022 10:07-0500 Diastolic blood pressure 84 mm[Hg] Dr. Geeta Hickman Work Phone: [facility] 04-01-2022 10:07-0500 Heart rate 95 /min Dr. Geeta Hickman Work Phone: [facility] 04-01-2022 10:07-0500 Respiratory rate 16 /min Dr. Geeta Hickman Work Phone: [facility] 04-01-2022 10:07-0500 SaO2% (BldA) [Mass fraction] 97 % Dr. Geeta Hickman Work Phone: [facility] 04-01-2022 10:07-0500 Systolic blood pressure 108 mm[Hg] Dr. Geeta Hickman Work Phone: [facility] 02-19-2022 19:35-0500 Respiratory rate 18 /min Dr. Ashok Siu Work Phone: [facility] 02-19-2022 18:11-0500 Body height 172.[address] Ashok Siu Work Phone: [facility] Work Phone: 02-19-2022 18:11-0500 Body mass index (BMI) [Ratio] 35.7 kg/m2 Dr. Ashok Siu Work Phone: [facility] 02-19-2022 18:11-0500 Body temperature 97.3 [degF] Dr. Ashok Siu Work Phone: [facility] 02-19-2022 18:11-0500 Body weight 106.[address] Ashok Siu Work Phone: [facility] 02-19-2022 18:11-0500 Diastolic blood pressure 98 mm[Hg] Dr. Ashok Siu Work Phone: [facility] 02-19-2022 18:11-0500 Heart rate 95 /min Dr. Ashok Siu Work Phone: [facility] 02-19-2022 18:11-0500 SaO2% (BldA) [Mass fraction] 97 % Dr. Ashok Siu Work Phone: [facility] 02-19-2022 18:11-0500 Systolic blood pressure 165 mm[Hg] Dr. Ashok Siu Work Phone: [facility] 01-05-2022 19:00-0400 Body temperature 98.2 [degF] Ashley Owens APRN.INTERFACE ANALYST Work Phone: [facility] 01-05-2022 19:00-0400 Body weight 108.32 kg Ashley Owens APRN.INTERFACE ANALYST Work Phone: [facility] 01-05-2022 19:00-0400 Diastolic blood pressure 86 mm[Hg] Ashley Owens APRN.INTERFACE ANALYST Work Phone: [facility] 01-05-2022 19:00-0400 Heart rate 89 /min Ashley Owens APRN.INTERFACE ANALYST Work Phone: [facility] 01-05-2022 19:00-0400 Respiratory rate 20 /min Ashley Owens APRN.INTERFACE ANALYST Work Phone: [facility] 01-05-2022 19:00-0400 SaO2% (BldA) [Mass fraction] 98 % Ashley Owens APRN.INTERFACE ANALYST Work Phone: [facility] 01-05-2022 19:00-0400 Systolic blood pressure 128 mm[Hg] Ashley Owens APRN.INTERFACE ANALYST Work Phone: [facility] 12-24-2021 08:33-0400 Body height 172.[address] Ashok Siu Work Phone: [facility] Work Phone: 12-24-2021 08:33-0400 Body mass index (BMI) [Ratio] 35.7 kg/m2 Dr. Ashok Siu Work Phone: [facility] 12-24-2021 08:33-0400 Body temperature 98.4 [degF] Dr. Ashok Siu Work Phone: [facility] 12-24-2021 08:33-0400 Body weight 106.[address] Ashok Siu Work Phone: [facility] 12-24-2021 08:33-0400 Diastolic blood pressure 88 mm[Hg] Dr. Ashok Siu Work Phone: [facility] 12-24-2021 08:33-0400 Heart rate 86 /min Dr. Ashok Siu Work Phone: [facility] 12-24-2021 08:33-0400 Respiratory rate 14 /min Dr. Ashok Siu Work Phone: [facility] 12-24-2021 08:33-0400 SaO2% (BldA) [Mass fraction] 98 % Dr. Ashok Siu Work Phone: [facility] 12-24-2021 08:33-0400 Systolic blood pressure 134 mm[Hg] Dr. Ashok Siu Work Phone: [facility] 11-05-2021 11:29-0400 Body mass index (BMI) [Ratio] 35.7 kg/m2 Dr. Ashok Siu Work Phone: [facility] Work Phone: 11-05-2021 11:29-0400 Body mass index (BMI) [Ratio] 35.6 kg/m2 Dr. Ashok Siu Work Phone: [facility] Work Phone: 11-05-2021 11:29-0400 Body temperature 98.3 [degF] Dr. Ashok Siu Work Phone: [facility] Work Phone: 11-05-2021 11:29-0400 Body weight 106.[address] Ashok Siu Work Phone: [facility] Work Phone: 11-05-2021 11:29-0400 Body weight 106.[address] Ashok Siu Work Phone: [facility] Work Phone: 11-05-2021 11:29-0400 Diastolic blood pressure 76 mm[Hg] Dr. Ashok Siu Work Phone: [facility] Work Phone: 11-05-2021 11:29-0400 Heart rate 89 /min Dr. Ashok Siu Work Phone: [facility] Work Phone: 11-05-2021 11:29-0400 Respiratory rate 14 /min Dr. Ashok Siu Work Phone: [facility] Work Phone: 11-05-2021 11:29-0400 SaO2% (BldA) [Mass fraction] 98 % Dr. Ashok Siu Work Phone: [facility] Work Phone: 11-05-2021 11:29-0400 Systolic blood pressure 128 mm[Hg] Dr. Ashok Siu Work Phone: [facility] Work Phone: 10-29-2021 14:58-0400 Body mass index (BMI) [Ratio] 35.4 kg/m2 Dr. Ashok Siu Work Phone: [facility] Work Phone: 10-29-2021 14:58-0400 Body temperature 97.6 [degF] Dr. Ashok Siu Work Phone: [facility] Work Phone: 10-29-2021 14:58-0400 Body weight 105.[address] Ashok Siu Work Phone: [facility] Work Phone: 10-29-2021 14:58-0400 Diastolic blood pressure 82 mm[Hg] Dr. Ashok iSu Work Phone: [facility] Work Phone: 10-29-2021 14:58-0400 Heart rate 91 /min Dr. Ashok Siu Work Phone: [facility] Work Phone: 10-29-2021 14:58-0400 Respiratory rate 16 /min Dr. Ashok Siu Work Phone: [facility] Work Phone: 10-29-2021 14:58-0400 SaO2% (BldA) [Mass fraction] 97 % Dr. Ashok Siu Work Phone: [facility] Work Phone: 10-29-2021 14:58-0400 Systolic blood pressure 124 mm[Hg] Dr. Ashok Siu Work Phone: [facility] Work Phone: 09-07-2021 12:53-0400 Body temperature 97.4 [degF] Dr. Ashok Siu Work Phone: [facility] Work Phone: 09-07-2021 12:53-0400 Diastolic blood pressure 84 mm[Hg] Dr. Ashok Siu Work Phone: [facility] Work Phone: 09-07-2021 12:53-0400 Heart rate 117 /min Dr. Ashok Siu Work Phone: [facility] Work Phone: 09-07-2021 12:53-0400 Respiratory rate 18 /min Dr. Ashok Siu Work Phone: [facility] Work Phone: 09-07-2021 12:53-0400 SaO2% (BldA) [Mass fraction] 98 % Dr. Ashok Siu Work Phone: [facility] Work Phone: 09-07-2021 12:53-0400 Systolic blood pressure 158 mm[Hg] Dr. Ashok Siu Work Phone: [facility] Work Phone: Encounters Encounter Date Encounter Type Care Provider Facility Start: 01-24-2025 ambulatory Ashley Clayton Facility:[facility] Start: 01-16-2025 End: 01-17-2025 Raul Hurt MD Work Phone: [facility] Start: 2024 End: 2024 Subsequent hospital visit by physician [address] Comment on above: Hyperlipidemia, unsp ecified; Family history of ischemic heart disease and other diseases of the circulatory system; Obesity, class 2; Other obesity due to excess calories; Body mass index (BMI) 35.0-35.9, adult Start: 2024 End: 2024 ambulatory [facility] Start: 12-16-2024 End: 12-16-2024 ambulatory Ashley Gomez FILTER PRESS OPERATOR-C Work Phone: -Laboratory Start: 12-16-2024 End: 12-16-2024 Patient encounter procedure Roseann Gee FILTER PRESS OPERATOR-C -Laboratory Work Phone: Start: 12-16-2024 End: 12-16-2024 ambulatory Ashley Gomez Facility:[facility] Start: 12-14-2024 End: 12-14-2024 Raul Hurt MD Work Phone: [facility] Start: 11-17-2024 ambulatory Ashley Gomez Facility:[facility] Start: 11-16-2024 End: 01-16-2025 Follow-up encounter Ashleyfrancisco Gomez APN - INTERFACE ANALYST Work Phone: [facility] Comment on above: Lipid panel, Compreh ensive metabolic panel, CBC, TSH Start: 11-15-2024 End: 11-15-2024 ambulatory ASHLEY JASON [facility] Start: 11-15-2024 End: 11-15-2024 Encounter for general adult medical examination without abnormal findings ASHLEY GOMEZ [facility] Start: 10-18-2024 End: 10-18-2024 ambulatory Ashley Gomez FILTER PRESS OPERATOR-C Work Phone: -Ultrasound [facility] Start: 10-18-2024 End: 10-18-[address] Chrystal Conteh DO -Ultrasound [facility] Work Phone: Start: 10-18-2024 End: 10-18-2024 Patient encounter procedure Tanna Tam DO -[facility] Work Phone: Start: 10-18-2024 End: 10-18-2024 ambulatory Ashley Gomez FILTER PRESS OPERATOR-C Work Phone: -[facility] Start: 10-18-2024 End: 10-18-2024 ambulatory Ashley Gomez Facility:[facility] Start: 10-13-2024 ambulatory Julio C Goyal Facility :[facility] Start: 10-09-2024 End: 10-09-2024 ambulatory Ashley Gomez FILTER PRESS OPERATOR-C Work Phone: -Radiology [facility] Start: 10-09-2024 End: 10-09-2024 Patient encounter procedure Roseann Gee -Radiology [facility] Work Phone: Start: 10-09-2024 End: 10-09-2024 ambulatory Ashley Gomez Facility:[facility] Start: 10-04-2024 End: 10-04-2024 Refmax Gomez APN - INTERFACE ANALYST Work Phone: [facility] Comment on above: Depressive disorder; Anxiety Start: 09-26-2024 Non-patient / Non-visit Dr. Vidal Fair MD -[facility] Work Phone: Start: 09-01-2024 End: 09-01-2024 ambulatory Ashley Gomez FILTER PRESS OPERATOR-C Work Phone: [facility] Work Phone: Start: 09-01-2024 End: 09-01-[address] Chrystal Conteh DO -Ultrasound [facility] Work Phone: Start: 09-01-2024 End: 09-01-2024 ambulatory Ashley Gomez Facility:[facility] Start: 08-30-2024 End: 08-30-2024 ambulatory Ashley Gomez FILTER PRESS OPERATOR-C Work Phone: [facility] Work Phone: Start: 08-30-2024 End: 08-30-2024 Patient encounter procedure Denise MONTANOC -Laboratory Specimen Work Phone: Start: 08-30-2024 End: 08-30-2024 Patient encounter procedure Denise Duff NP-C -[facility] Work Phone: Start: 08-30-2024 End: 08-30-2024 Patient encounter status Denise Duff NP-C [facility] Start: 08-30-2024 End: 08-30-2024 ambulatory Ashley Gomez FILTER PRESS OPERATOR-C Work Phone: [facility] Work Phone: Start: 08-30-2024 End: 08-30-2024 ambulatory Denise Duff Facility:[facility] Start: 08-18-2024 End: 08-18-2024 ambulatory ASHLEY GOMEZ [facility] Start: 07-21-2024 End: 07-21-2024 Office outpatient visit 25 minutes Ashley Gomez APN - INTERFACE ANALYST Work Phone: [facility] Comment on above: Neuropathy of right foot (Primary Dx); Depressive disorder; Anxiety; Rash and nonspecific skin eruption Start: 07-21-2024 End: 07-21-2024 ambulatory ASHLEY GOMEZ [facility] Start: 07-07-2024 End: 07-07-2024 Patient encounter procedure Tanna Tam DO [facility] Work Phone: Start: 07-07-2024 End: 07-07-2024 ambulatory Ashley Gomez Facility[facility] Start: 06-14-2024 ambulatory Ashley Gomez [facility] Start: 05-26-2024 End: 05-26-2024 Refill Ashley Gomez APN - INTERFACE ANALYST Work Phone: [facility] Comment on above: Irritable bowel synd hugh with diarrhea Start: 05-17-2024 End: 05-17-2024 Office outpatient visit 25 minutes Ashley Gomez APN - INTERFACE ANALYST Work Phone: [facility] Comment on above: Vitamin D deficiency (Primary [...] Start: 05-17-2024 End: 05-17-2024 ambulatory ASHLEY GOMEZ [facility] Start: 05-03-2024 End: 05-03-2024 Patient encounter procedure Ashley Gomez FILTER PRESS OPERATOR-C -Outpatient Breast Imaging Work Phone: Start: 05-03-2024 End: 05-03-2024 ambulatory Ashley Gomez Facility:[facility] Start: 04-21-2024 End: 04-21-2024 ambulatory Ashley Gomez Facility:[facility] Start: 04-05-2024 End: 04-05-2024 ambulatory Ashley Jason Facility:[facility] Start: 03-09-2024 End: 03-09-2024 Refill Naga Hurt MD Work Phone: [facility] Comment on above: Mild intermittent as thma without complication Start: 02-28-2024 End: 02-28-2024 Refill Ashley Gomez APN - INTERFACE ANALYST Work Phone: [facility] Comment on above: Osteoarthritis of chang th knees, unspecified osteoarthritis type Start: 02-28-2024 End: 02-28-2024 ambulatory Ashleyfrancisco Gomez Facility:[facility] Start: 02-25-2024 End: 02-25-2024 Office outpatient visit 25 minutes Ashley Gomez APN - INTERFACE ANALYST Work Phone: [facility] Comment on above: Other fatigue (Prima ry Dx); Depressive disorder; Anxiety Start: 02-25-2024 End: 02-25-2024 ambulatory NAGA [facility] Start: 02-17-2024 End: 02-17-2024 Emergency department patient visit Ashley Gomez Facility:[facility] Start: 02-13-2024 End: 02-14-2024 Emergency department patient visit Ashley Gomez Facility:[facility] Start: 02-09-2024 End: 02-09-2024 Office outpatient visit 25 minutes Ashley Gomez APN - INTERFACE ANALYST Work Phone: [facility] Comment on above: Other fatigue (Prima ry Dx); Depressive disorder; Anxiety Start: 02-09-2024 End: 02-09-2024 ambulatory [facility] Start: 12-22-2023 End: 12-22-2023 ambulatory FALLON POP Facility:[facility] Start: 12-22-2023 End: 12-22-2023 Patient encounter procedure Fallon Pop MD Work Phone: Rheumatology Comment on above: Inflammatory polyart hropathy (HCC) (Primary Dx) Start: 11-10-2023 End: 11-10-2023 Subsequent hospital visit by physician Christa Wong APRN - INTERFACE ANALYST Work Phone: [facility] Nuclear Medicine Comment on above: Gross hematuria; Left lower quadrant abdominal pain; Other hydronephrosis Start: 11-10-2023 End: 11-10-2023 Patient encounter status Ashley Gomez APN - INTERFACE ANALYST Work Phone: [employer] Work Phone: Start: 11-10-2023 End: 11-10-2023 Periodic preventive med est patient 40-64yrs Ashley Gomez APN - INTERFACE ANALYST Work Phone: [facility] Comment on above: Well [...] Start: 10-27-2023 End: 10-27-2023 Telephone encounter Christa Judith CARRANZA - INTERFACE ANALYST Work Phone: [facility] Urology Comment on above: Other (Lasix renal s can) Start: 10-20-2023 End: 10-20-2023 Office outpatient visit 15 minutes Christa Wong APRN - INTERFACE ANALYST Work Phone: [facility] Comment on above: Left flank pain; Hematuria, unspecified type Start: 10-18-2023 End: 10-18-2023 Subsequent hospital visit by physician [facility] Exam Room [address] [facility] [address] Comment on above: Arrived Start: 10-18-2023 End: 10-18-2023 Emergency department patient visit Nahomi Vides DO Work Phone: [facility] ED Comment on above: Left flank pain (Susanna dewayne Dx); Hematuria, unspecified type Start: 10-15-2023 End: 10-15-2023 Office outpatient new 30 minutes Christa Wong APN - INTERFACE ANALYST Work Phone: [facility] Comment on above: Other hydronephrosis (Primary Dx); Gross hematuria; Left lower quadrant abdominal pain Start: 09-15-2023 End: 09-15-2023 Office outpatient visit 25 minutes Ashley Gomez APN - INTERFACE ANALYST Work Phone: [facility] Comment on above: Depressive disorder; Anxiety Start: 08-27-2023 Telephone encounter Cornell james MD Work Phone: [facility] Comment on above: Appointment Start: 08-27-2023 End: 08-27-2023 Office outpatient visit 25 minutes Ashley Gomez APN - INTERFACE ANALYST Work Phone: [facility] Medicine Comment on above: Depressive disorder; Anxiety Start: 08-13-2023 End: 08-13-2023 Office outpatient visit 25 minutes Ashley Gomez APN - INTERFACE ANALYST Work Phone: [facility] Comment on above: Depressive disorder (Primary Dx); Anxiety; Gross hematuria; Left lower quadrant abdominal pain; Osteoarthritis of both knees, unspecified osteoarthritis type Start: 08-10-2023 Telephone encounter Ashley Tapia APN - INTERFACE ANALYST Work Phone: [facility] Comment on above: Test Scheduling Start: 07-16-2023 Orders Only Maria Elena gabriel APN.INTERFACE ANALYST Work Phone: Urology Start: 07-16-2023 End: 07-16-2023 Office outpatient visit 15 minutes Ashley Gomez APN - INTERFACE ANALYST Work Phone: [facility] Medicine Comment on above: Left lower quadrant abdominal pain (Primary Dx); Gross hematuria Start: 07-14-2023 End: 07-14-[address] Geeta Hickman Work Phone: [facility] Work Phone: Start: 07-14-2023 End: 07-14-[address] Geeta Hickman Work Phone: [facility]-Laboratory, Specimen Work Phone: Start: 07-14-2023 End: 07-14-[address] Geeta Hickman Work Phone: [facility] Work Phone: Start: 07-12-2023 End: 07-12-2023 ambulatory Yojana Lares MD Work Phone: Urology Comment on above: Left lower quadrant abdominal pain (Primary Dx); Hematuria, unspecified type Start: 07-12-2023 End: 07-12-2023 Telemedicine consultation with patient Yojana Lares MD Work Phone: [facility] Start: 07-09-2023 End: 07-09-2023 ambulatory MARIA ELENA CARVAJAL Facility:[facility] Start: 07-09-2023 End: 07-09-2023 Subsequent hospital visit by physician [facility] (I-Stat) Work Phone: [facility] Comment on above: Gross hematuria [R31 .0] Start: 07-08-2023 End: 07-08-2023 ambulatory Maria Elena Carvajal APN.INTERFACE ANALYST Work Phone: Urology Start: 07-08-2023 End: 07-08-2023 Patient encounter procedure Maria Elena Carvajal APN.INTERFACE ANALYST Work Phone: Urology Comment on above: Gross hematuria (Susanna dewayne Dx); Left flank pain Start: 07-05-2023 End: 07-05-2023 Evaluation and management of inpatient Dr. Geeta Hickman Work Phone: [facility]-Medical Surgical 3 Work Phone: Start: 07-05-2023 End: 07-05-2023 Non-patient / Non-visit Dr. Geeta Hickman Work Phone: [facility] Work Phone: Start: 07-04-2023 End: 07-05-2023 Evaluation and management of inpatient Dr. Geeta Hickman Work Phone: [facility]-Medical Surgical 3 Work Phone: Start: 07-04-2023 End: 07-05-[address] Geeta Hickman Work Phone: [facility] Work Phone: Start: 06-30-2023 End: 06-30-[address] Geeta Hickman Work Phone: [facility] Work Phone: Start: 06-30-2023 End: 06-30-[address] Geeta Hickman Work Phone: [facility]-Laboratory, OP Pavilion Start: 06-18-2023 End: 06-18-2023 Office outpatient visit 15 minutes Ashley Gomez APRN - INTERFACE ANALYST Work Phone: [facility] Comment on above: Class 2 obesity due to excess calories without serious comorbidity with body mass index (BMI) of 37.0 to 37.9 in adult (Primary Dx); COVID-19 virus infection; Herpes zoster without complication Start: 06-10-2023 End: 06-10-2023 Admission to same day surgery center Dr. Geeta Hickman Work Phone: [facility]-Surgical Day Care Start: 06-10-2023 End: 06-10-[address] Geeta Hickman Work Phone: [facility] Work Phone: Start: 05-05-2023 End: 05-05-[address] Geeta Hickman Work Phone: [facility] Work Phone: Start: 05-05-2023 End: 05-05-[address] Geeta Hickman Work Phone: [facility]-Laboratory Work Phone: Start: 05-05-2023 End: 05-05-[address] Geeta Hickman Work Phone: [facility]astroenterology Work Phone: Start: 05-03-2023 Orders Only Ashley Gomez APN - INTERFACE ANALYST Work Phone: [facility] Comment on above: Class 2 obesity due to excess calories without serious comorbidity with body mass index (BMI) of 36.0 to 36.9 in adult (Primary Dx) Start: 04-30-2023 End: 04-30-2023 Raul Hurt MD Work Phone: [facility] Comment on above: Irritable bowel synd hugh with diarrhea Start: 04-30-2023 End: 04-30-[address] Geeta Hickman Work Phone: [facility]-Outpatient Breast Imaging Work Phone: Start: 04-28-2023 End: 04-28-2023 Office outpatient visit 25 minutes Ashley Gomez APN - INTERFACE ANALYST Work Phone: [facility] Comment on above: Right lower quadrant abdominal pain (Primary Dx); Nausea; Weight gain; Elevated glucose level; Primary hypertension; Irritable bowel syndrome, unspecified type; Gastroesophageal reflux disease, unspecified whether esophagitis present; Depressive disorder; Anxiety; Encounter for screening for HIV; Need for hepatitis C screening test Start: 04-21-2023 End: 04-21-2023 Emergency department patient visit [facility]-Emergency Department Work Phone: Start: 04-09-2023 End: 04-09-2023 Patient encounter procedure [facility]-Laboratory Work Phone: Start: 03-08-2023 Orders Only Ashley Gomez APN - INTERFACE ANALYST Work Phone: [facility] Medicine Start: 12-30-2022 Raul Hurt MD Work Phone: [facility] Medicine Comment on above: Depressive disorder; Anxiety Start: 12-16-2022 End: 12-16-2022 Subsequent hospital visit by physician Ashley Gomez APN - INTERFACE ANALYST Work Phone: [facility] Radiology Comment on above: Injury due to fall, initial encounter; Left knee injury, initial encounter Start: 12-16-2022 End: 12-16-2022 Office outpatient visit 15 minutes Ashley Gomez APN - INTERFACE ANALYST Work Phone: [facility] Medicine Comment on above: Injury due to fall, initial encounter (Primary Dx); Left knee injury, initial encounter; Flu vaccine need Start: 11-22-2022 Refill Ashley Gomez APN - INTERFACE ANALYST Work Phone: [facility] Medicine Comment on above: Primary hypertension Start: 11-20-2022 End: 11-20-2022 Subsequent hospital visit by physician Tanna Tam Work Phone: [facility] Nuclear Medicine Comment on above: Irritable bowel synd hugh without diarrhea Start: 11-11-2022 Orders Only Tanna Tam Work Phone: [facility] Start: 11-11-2022 Transcribe Orders Tanna Early nd Work Phone: [facility] Scheduling Comment on above: Irritable bowel synd hugh without diarrhea (Primary Dx) Start: 10-30-2022 Telephone encounter Ashley Tapia APN - INTERFACE ANALYST Work Phone: [facility] Medicine Comment on above: Orders Start: 10-30-2022 End: 10-30-2022 Initial preventive medicine new patient 40-64yrs Ashley Gomez APN - INTERFACE ANALYST Work Phone: [facility] Medicine Comment on above: Well adult exam [...] End: 10-30-2022 Patient encounter status Ashley Gomez APN - INTERFACE ANALYST Work Phone: [facility] Work Phone: Start: 09-16-2022 End: 09-16-[address] Geeta Hickman Work Phone: [facility] Work Phone: Start: 09-16-2022 End: 09-16-[address] Geeta Hickman Work Phone: [facility]-Outpatient Pavilion Ultrasound Start: 08-21-2022 End: 08-21-[address] Geeta Hickman Work Phone: [facility] Work Phone: Start: 08-21-2022 End: 08-21-[address] Geeta Hickman Work Phone: [facility]-Outpatient Pavilion Ultrasound Start: 08-20-2022 End: 08-20-[address] Geeta Hickman Work Phone: [facility] Start: 07-17-2022 End: 07-17-[address] Geeta Hickman Work Phone: [facility] Gastroenterology Start: 07-13-2022 End: 07-13-[address] Geeta Hickman Work Phone: [facility] Work Phone: Start: 07-13-2022 End: 07-13-[address] Geeta Hickman Work Phone: [facility]-Pulmonary Services/Neurology Start: 07-10-2022 End: 07-10-[address] [facility] Start: 07-08-2022 End: 07-08-[address] Geeta Hickman Work Phone: [facility] Work Phone: Start: 07-08-2022 End: 07-08-[address] Ge[facility] Hickman [facility] Start: 07-08-2022 End: 07-08-[address] Geeta Hickman Work Phone: [facility] Start: 06-24-2022 End: 06-24-[address] Geeta Hickman Work Phone: [facility] Internal Medicine Start: 06-15-2022 End: 06-16-2022 Emergency department patient visit Dr. Geeta Hickman [facility] Start: 06-15-2022 Telephone encounter Nadia Bolanos PA-C Work Phone: [facility] Comment on above: Results Start: 06-15-2022 End: 06-15-2022 Subsequent hospital visit by physician [facility] Work Phone: Radiology Comment on above: Right leg pain [M79. 604] Start: 06-15-2022 End: 06-15-[address] Geeta Hickman Work Phone: [facility] Work Phone: Start: 06-15-2022 End: 06-15-[address] Geeta Hickman [facility] Start: 06-15-2022 End: 06-15-2022 Subsequent hospital visit by physician [facility] Work Phone: Radiology Comment on above: Acute cough [R05.1] Start: 06-15-2022 End: 06-15-2022 Office outpatient visit 25 minutes Nadai Bolanos PA-C Work Phone: [facility] Comment on above: Acute cough (Primary Dx); SOB (shortness of breath); Right leg pain Start: 06-09-2022 End: 06-09-[address] Geeta Hickman Work Phone: [facility] Work Phone: Start: 06-09-2022 End: 06-09-[address] Geeta Hickman Work Phone: [facility] Start: 06-09-2022 End: 06-09-[address] Geeta Hickman Work Phone: [facility]-Now Clinic Start: 06-03-2022 End: 06-03-[address] Geeta Hickman Work Phone: [facility] Work Phone: Start: 06-03-2022 End: 06-03-[address] Geeta Hickman Work Phone: [facility]-Laboratory, Specimen Start: 06-03-2022 End: 06-03-[address] Geeta Hickman Work Phone: [facility] Start: 05-22-2022 Refill Sada Sanchez Work Phone: Gastroenterology Comment on above: Refill Request Start: 05-20-2022 End: 05-20-[address] Geeta Hickman Work Phone: [facility] Work Phone: Start: 05-20-2022 End: 05-20-[address] Geeta Hickman Work Phone: [facility] Internal Medicine Start: 05-05-2022 End: 05-05-[address] Geeta Hickman Work Phone: [facility]-Pulmonary Medicine [facility] Start: 04-29-2022 End: 04-29-[address] Geeta Hickman Work Phone: [facility] Work Phone: Start: 04-29-2022 End: 04-29-[address] Geeta Hickman Work Phone: [facility]-Outpatient Breast Imaging Start: 04-09-2022 End: 04-09-[address] Geeta Hickman Work Phone: [facility] Work Phone: Start: 04-09-2022 End: 04-09-[address] Geeta Hickman Work Phone: [facility]-Sleep Lab Start: 04-03-2022 Telephone encounter Sada olivier MD Work Phone: Gastroenterology Comment on above: Results (pH impedanc e) Start: 04-03-2022 End: 04-03-[address] Geeta Hickman Work Phone: [facility] Work Phone: Start: 04-03-2022 End: 04-03-[address] Geeta Hickman Work Phone: [facility]-Cardiovascular Services Start: 04-03-2022 Non-patient / Non-visit Dr. Miranda Work Phone: [facility]-W[facility]-BVS Start: 04-01-2022 End: 04-01-[address] Geeta Hickman Work Phone: [facility] Internal Medicine Start: 04-01-2022 End: 04-01-2022 [...] Telephone encounter Nurse Tomasz Ingram Work Phone: [facility] Comment on above: Patient Question; Pa tient Update Start: 03-11-2022 End: 03-11-2022 Nursing evaluation of patient and report Nurse Tomasz [facility] Work Phone: [facility] Comment on above: Bloating Start: 03-05-2022 End: 03-05-2022 ambulatory Mickey Andres MD Work Phone: Gastroenterology Comment on above: Gas Start: 03-05-2022 End: 03-05-2022 Patient encounter procedure Mickey Andres MD Work Phone: [facility] Start: 03-04-2022 End: 03-04-2022 Nursing evaluation of patient and report Nurse Tomasz [facility] Work Phone: [facility] Comment on above: Bloating Start: 02-19-2022 End: 02-19-2022 Emergency department patient visit Dr. Ashok Siu Work Phone: [facility]-Emergency Department Start: 02-11-2022 Refill Sada Sanchez Work Phone: Gastroenterology Comment on above: Refill Request Start: 01-14-2022 End: 01-14-2022 ambulatory Sada Snyder MD Work Phone: [facility] Start: 01-14-2022 Patient encounter procedure Sada Snyder MD Work Phone: Gastroenterology Comment on above: Referral Start: 01-14-2022 End: 01-14-[address] Ashok [facility] Start: 01-07-2022 End: 01-07-[address] Ashok Siu Work Phone: [facility] Work Phone: Start: 01-07-2022 End: 01-07-[address] Ashok Siu Work Phone: [facility] Start: 01-05-2022 End: 01-05-2022 Patient encounter procedure Ashley Owens APRN.[facility] Work Phone: [facility] Comment on above: Burning with urinati on (Primary Dx) Start: 01-02-2022 End: 01-02-[address] Ashok Siu Work Phone: [facility] Orthopaedic [facility] Start: 12-31-[address] Ashok Siu Work Phone: [facility]-Physical Therapy Start: 12-24-2021 End: 12-24-[address] Ashok Siu Work Phone: [facility] Internal Medicine Start: 12-16-2021 End: 12-16-[address] Ashok Siu Work Phone: [facility] Start: 12-10-2021 End: 12-10-[address] Ashok Siu Work Phone: [facility] Medicine Start: 11-05-2021 End: 11-05-[address] Ashok Siu Work Phone: [facility] Start: 10-31-2021 End: 10-31-[address] Ashok Siu Work Phone: [facility]-Laboratory Start: 10-29-2021 End: 10-29-[address] Ashok Siu Work Phone: [facility] Medicine Start: 10-01-2021 Raul Sanchez Work Phone: Gastroenterology Comment on above: Refill Request Start: 09-07-2021 End: 09-07-[address] Ashok Siu Work Phone: [facility]-Now Clinic Start: 07-21-2021 End: 07-21-2021 Patient encounter procedure [facility]-Radiology, [facility] Start: 07-10-2021 End: 07-10-2021 Patient encounter [facility] Start: 05-02-2021 End: 05-02-2021 Patient encounter procedure [facility]-Cardiovascular Services Start: 04-28-2021 End: 04-28-2021 Patient encounter procedure [facility]-Outpatient Breast Imaging Start: 02-05-2020 End: 02-05-2020 Subsequent hospital visit by physician [facility] Work Phone: Radiology Comment on above: Cough [R05] Start: 12-04-2009 Patient encounter status Yoshi Snyder MD Work Phone: [facility] Work Phone: Procedures Date Procedure Procedure Detail Performing Clinician Start: 11-15-2024 Lipid 1996 panel - S mansi or Janay Hurt MD Work Phone: Start: 10-18-2024 Pelvic echography Ashley MONTANOC Work Phone: Start: 10-09-2024 Plain X-ray of finger H mariam Gomez NP-C Work Phone: Start: 09-01-2024 Pelvic echography Ashley Gomez NP-C Work Phone: Start: 08-30-2024 Liquid based cervica l cytology screening Ashley MARR Work Phone: Comment on above: EPITHELIAL CELL ABNO RMALITY.ATYPICAL SQUAMOUS CELLS OF UNDETERMINED SIGNIFICANCE (ASC-US). This liquid based Th inPrep(R) pap test was screened withthe use of an image guided system. Start: 08-30-2024 Microscopic observat ion [Identifier] in Cervix by Cyto stain Ashley Gomez APN - INTERFACE ANALYST Work Phone: Start: 05-17-2024 Lipid 1996 panel - S mansi or Plasma Ashley Jason APN - INTERFACE ANALYST Work Phone: Start: 05-03-2024 End: 05-03-2024 Mammography Ashley Jason APN - C FILTER PRESS OPERATOR Work Phone: Start: 11-10-2023 Kidney img morpholog y vascular flow multiple Christa Wong APN - INTERFACE ANALYST Work Phone: Start: 11-10-2023 Lipid 1996 panel - S mansi or Plasma Christa Wong APN - INTERFACE ANALYST Work Phone: Start: 10-18-2023 Ct abdomen & pelvis w/o contrast material Nahomi A Sachse DO Work Phone: Start: 10-18-2023 Urinalysis complete panel - Urine Nahomi A Sachse DO Work Phone: Start: 10-18-2023 Urnls dip stick/tabl et reagent auto microscopy Nahomi A Sachse DO Work Phone: Start: 10-18-2023 Comprehensive metabo lic panel Nahomi A Sachse DO Work Phone: Start: 07-14-2023 Urine culture [...] Work Phone: Start: 05-04-2023 Mammography Ashley martinez APN - [employer] Work Phone: Start: 04-30-2023 Screening mammography Daniel Hickman Work Phone: Start: 04-21-2023 Computed tomography of abdomen and pelvis with intravenous contrast Start: 11-20-2022 Gastric emptying bipin ging study Tanna [employer] Work Phone: Start: 11-11-2022 HOUSE ACCOUNT BUDI NG (QUEST) [facility] [employer] Work Phone: Start: 10-30-2022 Lipid 1996 panel - S mansi or Plasma [facility] [employer] Work Phone: Start: 09-16-[address] Kinsey Hickman Work Phone: Start: 09-16-[address] Geeta Hickman Work Phone: Start: 07-16-2022 HM PAP SMEAR Historical Provider Work Phone: Start: 07-16-2022 Microscopic observat ion [Identifier] in Cervix by Cyto stain Ashley Gomez APN - INTERFACE ANALYST Work Phone: Start: 07-13-2022 Bordatella pertussis DNA (MARELY) Dr. Geeta Hickman Work Phone: Start: 06-15-2022 Plain chest X-ray Dr. Kinsey Hickman Work Phone: Start: 06-15-2022 SARS-CoV-2 & FLU Ant igen (Rapid) Dr. Geeta Hickman Work Phone: Start: 06-15-2022 Dup-scan xtr veins unilateral/limited study Nadia Bolanos PA-[employer] Work Phone: Start: 06-15-2022 Radiologic exam ches t 2 views Nadia Bolanos PA-[employer] Work Phone: Start: 06-09-[address] [...] et rgnt auto w/o microscopy Lee Rios APN.INTERFACE ANALYST Work Phone: Start: 12-16-2021 MRI of brain without contrast Dr. Ashok Siu Work Phone: Start: 11-05-2021 Radiologic examinati on of knee Dr. Ashok Siu Work Phone: Start: 07-21-2021 Radiography of esophagus Start: 04-28-2021 Screening mammography Start: 11-07-2020 HM COLONOSCOPY Historic oswaldo Nixon MD Work Phone: Start: 11-07-2020 Colonoscopy Ashley Roman APN.INTERFACE ANALYST Work Phone: Start: 02-05-2020 Radiologic exam ches t 2 views Analilia Ribeiro APN.INTERFACE ANALYST Work Phone: Start: 02-23-2014 Lipid 1996 panel [...] for Adults (1 - 1-dose 75+ series) [facility] Start: 2036 RSV Immunization aged 60 or older (1 - 1-dose 60+ series) RSV Immunization aged 60 or older (1 - 1-dose 60+ series) [facility] Start: 10-30-2032 DTaP/Tdap/Td Vaccines (2 - Td or Tdap) DTaP/Tdap/Td Vaccines (2 - Td or Tdap) [facility] Start: 10-30-2032 DTaP/Tdap/Td Vaccines (3 - Td or Tdap) DTaP/Tdap/Td Vaccines (3 - Td or Tdap) [facility] Start: 10-30-2032 Urine microalbumin profile DTaP,Tdap,Td Vaccine (3 - Td or Tdap) [facility] Start: 11-07-2030 Screening for malignant neoplasm of colon [facility] Start: 11-15-2029 Lipid panel Lipid Panel [facility] Start: 05-17-2029 Lipid panel Lipid Panel [facility] Start: 11-09-2028 Lipid panel [facility] Start: 07-13-2028 Screening for malignant neoplasm of cervix [facility] Start: 10-31-2027 Lipid panel [facility] Start: 08-31-2027 Screening for malignant neoplasm of cervix Pap Smear [facility] Start: 2026 Zoster Vaccines (1 of 2) Zoster Vaccines (1 of 2) [facility] Start: 12-21-2026 Diabetes Screening Diabetes Screening [facility] Start: 04-28-2026 Diabetes mellitus screening Diabetes Screening [facility] Start: 04-28-2026 Diabetes Screening Diabetes Screening [facility] Start: 11-21-2025 End: 11-21-2025 Patient encounter procedure 11/21/2025 9:20 AM EDT [facility] [address] [place] [address] [place] [address] Ashley Gomez, APN - INTERFACE ANALYST [address] [facility] [place] [address] [facility] Start: 11-16-2025 Yearly Adult Physical Yearly Adult Physical [facility] Start: 11-11-2025 Diabetes mellitus screening Diabetes Screening [facility] Start: 11-07-2025 Screening for malignant neoplasm of colon [facility] Start: 07-16-2025 Screening for malignant neoplasm of cervix [facility] Start: 05-18-2025 Depression Monitoring Depression Monitoring [facility] Start: 05-16-2025 End: 05-16-2025 Patient encounter procedure 05/16/2025 9:40 AM EST [facility] [address] [place] [address] [place] [address] Ashley Gomez, APN - INTERFACE ANALYST [address] [place] [place] [address] [facility] Start: 05-03-2025 Screening for malignant neoplasm of breast Mammogram [facility] Start: 12-17-2024 End: 11-16-2025 Alanine aminotransferase [Enzymatic activity/volume] in Serum or Plasma ALT Lab Routine Mixed hyperlipidemia Expected: 12/17/2024 (Approximate), Expires: 11/16/2025 [facility] Comment on above: Expected: 12/17/2024 (Approximate), Expi res: 11/16/2025 Start: 12-17-2024 End: 11-16-2025 Aspartate aminotransferase [Enzymatic activity/volume] in Serum or Plasma AST Lab Routine Mixed hyperlipidemia Expected: 12/17/2024 (Approximate), Expires: 11/16/2025 [facility] Comment on above: Expected: 12/17/2024 (Approximate), Expi res: 11/16/2025 Start: 12-17-2024 End: 11-16-2025 Lipid 1996 panel - Serum or Plasma Lipid panel Lab Routine Mixed hyperlipidemia Expected: 12/17/2024 (Approximate), Expires: 11/16/2025 [facility] Work Phone: Comment on above: Expected: 12/17/2024 (Approximate), Expi res: 11/16/2025 Start: 11-27-2024 COVID-19 Vaccine ( season) COVID-19 Vaccine () [facility] Start: 11-27-2024 Influenza vaccination Influenza Vaccine (#1) [facility] Start: 11-15-2024 End: 11-15-2024 Patient encounter procedure 11/15/2024 9:40 AM EDT [facility] [address] [place] [address] [place] [address] Ashley Gomez, APN - INTERFACE ANALYST [address] [email or web address] [address] [facility] Start: 11-14-2024 Depression Monitoring Depression Monitoring [facility] Start: 08-18-2024 End: 08-18-2024 Telemedicine consultation with patient 08/18/2024 1:20 PM EDT Telemedicine [facility] [address] [place] [address] [place] [address] Ashley Gomez, APN - INTERFACE ANALYST [address] [place] [address] [place] [address] [facility] Start: 05-17-2024 End: 05-16-2025 25-hydroxyvitamin D3 [Mass/volume] in Serum or Plasma Vitamin D Deficiency Screening (Vit D 25) Lab Routine Vitamin D deficiency Expected: 05/17/2024 (Approximate), Expires: 05/16/2025 [facility] Comment on above: Expected: 05/17/2024 (Approximate), [...] cholesterol level Expected: 05/17/2024 (Approximate), Expires: 05/16/2025 [facility] Comment on above: Expected: 05/17/2024 (Approximate), Expi res: 05/16/2025 Start: 05-17-2024 End: 05-16-2025 Lipid 1996 panel - Serum or Plasma Lipid panel Lab Routine Elevated LDL cholesterol level Expected: 05/17/2024 (Approximate), Expires: 05/16/2025 [facility] [employer] [facility] Work Phone: Comment on above: Expected: 05/17/2024 (Approximate), Expi res: 05/16/2025 Start: 05-17-2024 End: 05-17-2024 Patient encounter procedure [facility] Start: 05-12-2024 Depression Monitoring Depression Monitoring [facility] Start: 05-04-2024 Screening for malignant neoplasm of breast Mammogram [facility] Start: 04-28-2024 COVID-19 Vaccine () COVID-19 Vaccine () [facility] Comment on above: Postponed from 11/27/2022 (Patient Refus ed) Start: 04-28-2024 Diabetes mellitus screening Diabetes Screening [facility] Start: 03-15-2024 Depression Monitoring Depression Monitoring [facility] Start: 02-26-2024 Depression Monitoring Depression Monitoring [facility] Start: 02-25-2024 End: 02-25-2024 Telemedicine consultation with patient 02/25/2024 9:40 AM EST Telemedicine [facility] [place] [address] [facility] [place] [address] Ashley Gomez S, APN - INTERFACE ANALYST [address] [place] [address] [facility] Start: 02-12-2024 Depression Monitoring Depression Monitoring [facility] Start: 12-22-2023 End: 12-22-2023 Patient encounter procedure 12/22/2023 9:00 AM EDT Office Visit Rheumatology [address] [address] Fallon Rivas MD [address] [place], [place] [id number] Acute perichondritis of pinna, right [H61.011] Rheumatology Comment on above: Acute perichondritis of pinna, right [H6 1.011] Start: 12-19-2023 Depression Monitoring Depression Monitoring [facility] Start: 12-19-2023 Depresssion Monitoring Depresssion Monitoring [facility] Start: 11-28-2023 Covid-19 Vaccine ( season) Covid-19 Vaccine ( season) [facility] Start: 11-28-2023 Influenza vaccination Influenza Vaccine (#1) [facility] Start: 11-10-2023 End: 11-09-2024 25-hydroxyvitamin D3 [Mass/volume] in Serum or Plasma Vitamin D Deficiency Screening (Vit D 25) Lab Routine Vitamin D deficiency Expected: 11/10/2023 (Approximate), Expires: 11/09/2024 [facility] Comment on above: Expected: 11/10/2023 (Approximate), [...] diabetes mellitus Expected: 11/10/2023 (Approximate), Expires: 11/09/2024 [facility] Comment on above: Expected: 11/10/2023 (Approximate), Expi res: 11/09/2024 Start: 11-10-2023 End: 11-09-2024 Lipid 1996 panel - Serum or Plasma Lipid panel Lab Routine Screening for lipoid disorders Expected: 11/10/2023 (Approximate), Expires: 11/09/2024 [facility] Work Phone: Comment on above: Expected: 11/10/2023 (Approximate), Expi res: 11/09/2024 Start: 11-10-2023 End: 11-10-2023 Patient encounter procedure 11/10/2023 9:00 AM EDT Office Visit [facility] [address] [place] [phone] Cornell Holden MD [address] [facility] [address] [place] [address] [facility] Start: 11-08-2023 End: 11-08-2023 Patient encounter procedure 11/08/2023 12:30 PM EDT Appointment [facility] Nuclear Medicine [address] [place] [phone] Christa Wong APN - INTERFACE ANALYST [address] [place] [phone] [facility] Nuclear Medicine Start: 11-03-2023 End: 11-03-2023 Patient encounter procedure 11/03/2023 9:20 AM EDT Office Visit [facility] [address] [place] [address] [place] [address] Ashley Gomez, APN - INTERFACE ANALYST [address] [facility] [email or web address] [address] [facility] Start: 10-27-2023 Depresssion Monitoring Depresssion Monitoring [facility] Start: 10-27-2023 End: 10-26-2024 NM kidney flow/function w/wo lasix NM kidney flow/function w/wo lasix Imaging Routine Gross hematuria Left lower quadrant abdominal pain Other hydronephrosis Expected: 10/27/2023, Expires: 10/26/2024 [facility] Comment on above: Expected: 10/27/2023, Expires: Start: 10-17-2023 DIABETES SCREEN DIABETES SCREEN [facility] Start: 10-17-2023 Diabetes Screening Diabetes Screening [facility] Start: 10-15-2023 End: 10-29-2023 Bacteria identified in Urine by Culture Urine culture Microbiology Routine Gross hematuria Left lower quadrant abdominal pain Expected: 10/15/2023 (Approximate), Expires: 10/29/2023 [facility] Comment on above: Expected: 10/15/2023 (Approximate), Expi res: 10/29/2023 Start: 10-15-2023 End: 04-16-2024 NM Renal Function Mag 3 with Lasix NM Renal Function Mag 3 with Lasix Procedure Routine Gross hematuria Left lower quadrant abdominal pain Other hydronephrosis Expected: 10/15/2023 (Approximate), Expires: 04/16/2024 [facility] Comment on above: Expected: 10/15/2023 (Approximate), Expi res: 04/16/2024 Start: 10-15-2023 End: 12-16-2023 US Retroperitoneum US retroperitoneum Imaging Routine Gross hematuria Left lower quadrant abdominal pain Expected: 10/15/2023, Expires: 12/16/2023 [facility] Work Phone: Comment on above: Expected: 10/15/2023, Expires: Start: 09-15-2023 End: 09-15-2023 Telemedicine consultation with patient 09/15/2023 11:00 AM EDT Telemedicine [facility] [address] [place] [address] [place] [address] Ashley Gomez, APN - INTERFACE ANALYST [address] [place] [address] [place] [address] [facility] Start: 08-27-2023 End: 08-27-2023 Telemedicine consultation with patient 08/27/2023 9:40 AM EDT Telemedicine [facility] Medicine [address] [place] [address] [place] [address] Ashley Gomez, APN - INTERFACE ANALYST [address] [place] [address] [place] [address] [facility] Start: 08-13-2023 End: 08-13-2023 Telemedicine consultation with patient 08/13/2023 1:20 PM EDT Telemedicine [facility] [address] [place] [address] [place] [address] Ashley Gomez, APN - INTERFACE ANALYST [address] [place] [address] [place] [address] [facility] Start: 07-21-2023 End: 07-21-2023 Patient encounter procedure 07/21/2023 9:40 AM EDT Office Visit [facility] [address] [place] [address] [place] [address] Ashley Gomez, APN - INTERFACE ANALYST [address] [place] [address] [place] [address] [facility] Start: 07-08-2023 End: 10-07-2023 CYTOLOGY NON-DATA REVIEWER CYTOLOGY NON-DATA REVIEWER Lab Routine Gross hematuria Expected: 07/08/2023 (Approximate), Expires: 10/07/2023 [facility] Work Phone: Comment on above: Expected: 07/08/2023 (Approximate), Expi res: 10/07/2023 Start: 07-05-2023 Cysto w/insert ureteral stent CYSTOSCOPY AND TREATMENT [facility] Start: 07-05-2023 Patient discharge [facility] Start: 07-05-2023 Admission procedure [facility] Start: 07-04-2023 Application of intermittent pneumatic compression device [facility] Start: 07-04-2023 [facility] Start: 07-04-2023 Following clinical pathway protocol [facility] Start: 07-04-2023 Blood chemistry [facility] Start: 07-04-2023 Hospital admission, emergency, from emergency room, medical nature [facility] Start: 06-10-2023 Anes transurethral w/urethrocystoscopy nos ANESTH BLADDER SURGERY [facility] Start: 06-10-2023 Cysto w/destruction of lesions CYSTOSCOPY AND TREATMENT [facility] Start: 06-10-2023 Cystourethroscopy with biopsy CYSTOSCOPY W/BIOPSY(S) [facility] Start: 06-10-2023 Patient discharge [facility] Start: 06-02-2023 End: 06-02-2023 Patient encounter procedure 06/02/2023 10:40 AM EST Office Visit [facility] [address] [place], [place] [id number] Ashley Gomez, APN - INTERFACE ANALYST [address], [place] [id number] [facility] Start: 05-05-2023 Elastase.pancreatic [Presence] in Stool [facility] Start: 05-05-2023 Fat [Presence] in Stool [facility] Start: 05-05-2023 Protein measurement [facility] Start: 05-05-2023 [facility] Start: 05-05-2023 Immunoglobulin measurement [facility] Start: 05-05-2023 [facility] Start: 05-05-2023 End: 05-05-2023 Patient encounter procedure [facility] Start: 05-01-2023 Depresssion Monitoring Depresssion Monitoring [facility] Start: 04-29-2023 Screening for malignant neoplasm of breast Mammogram [facility] Start: 04-28-2023 End: 04-28-2024 Hemoglobin A1c measurement Hemoglobin A1c Lab Routine Elevated glucose level Expected: 04/28/2023 (Approximate), Expires: 04/28/2024 [facility] [employer] [facility] Work Phone: Comment on above: Expected: 04/28/2023 (Approximate), Expi res: 04/28/2024 Start: 04-28-2023 End: 04-28-2024 Hepatitis C virus Ab [Presence] in Serum or Plasma by Immunoassay Hepatitis C antibody Lab Routine Need for hepatitis C screening test Expected: 04/28/2023 (Approximate), Expires: 04/28/2024 [facility] [employer] Comment on above: Expected: 04/28/2023 (Approximate), Expi res: 04/28/2024 Start: 04-28-2023 End: 04-28-2024 HIV 1+2 Ab+HIV1 p24 Ag [Presence] in Serum or Plasma by Immunoassay HIV-1 and HIV-2 Antigen-Antibody Screen Lab Routine Encounter for screening for HIV Expected: 04/28/2023 (Approximate), Expires: 04/28/2024 [facility] [employer] Comment on above: Expected: 04/28/2023 (Approximate), Expi res: 04/28/2024 Start: 04-28-2023 End: 04-28-2024 Thyrotropin [Units/volume] in Serum or Plasma TSH Lab Routine Nausea Weight gain Elevated glucose level Expected: 04/28/2023 (Approximate), Expires: 04/28/2024 [facility] [employer] Comment on above: Expected: 04/28/2023 (Approximate), Expi res: 04/28/2024 Start: 04-28-2023 End: 04-28-2024 US Pelvis transvaginal US pelvis transvaginal Imaging Routine Right lower quadrant abdominal pain Nausea Expected: 04/28/2023, Expires: 04/28/2024 [facility] [employer] Comment on above: Expected: 04/28/2023, Expires: Start: 04-21-2023 [facility] Start: 12-16-2022 End: 12-17-2023 XR Knee - left 4 Views [facility] [employer] [facility] Work Phone: Comment on above: Expected: 12/16/2022, Expires: 4 Once for 1 Occurrenc es starting 12/16/2022 until 12/16/2022 Start: 11-27-2022 Covid-19 Vaccine () Covid-19 Vaccine () [facility] Start: 11-27-2022 Influenza vaccination [facility] Start: 11-20-2022 End: 11-20-2022 Patient encounter procedure 11/20/2022 8:00 AM EDT Appointment [facility] Nuclear Medicine [address] [place] [address] [address] [place] [address] [facility] Medicine Start: 10-30-2022 End: 10-31-2023 25-hydroxyvitamin D3 [Mass/volume] in Serum or Plasma Vitamin D Deficiency Screening (Vit D 25) Lab Routine Vitamin D deficiency Expected: 10/30/2022 (Approximate), Expires: 10/31/2023 [facility] [employer] Comment on above: Expected: 10/30/2022 (Approximate), Expi [...] osteoarthritis type Expected: 10/30/2022 (Approximate), Expires: 10/30/2023 [facility] [employer] [facility] Work Phone: Comment on above: Expected: [...] disorder Anxiety Expected: 10/30/2022 (Approximate), Expires: 10/30/2023 [facility] [employer] Comment on above: Expected: 10/30/2022 (Approximate), Expi res: 10/30/2023 Start: 10-30-2022 End: 10-30-2023 Lipid 1996 panel - Serum or Plasma Lipid panel Lab Routine Screening for lipoid disorders Expected: 10/30/2022 (Approximate), Expires: 10/30/2023 [facility] [employer] Comment on above: Expected: 10/30/2022 (Approximate), Expi res: 10/30/2023 Start: 10-30-2022 End: 10-31-2023 Thyrotropin [Units/volume] in Serum or Plasma TSH Lab Routine Class 1 obesity due to excess calories without serious comorbidity with body mass index (BMI) of 33.0 to 33.9 in adult Depressive disorder Anxiety Expected: 10/30/2022 (Approximate), Expires: 10/31/2023 [employer] Comment on above: Expected: 10/30/2022 (Approximate), Expi res: 10/31/2023 Start: 07-10-2022 Bordetella pertussis IgA and IgG and IgM panel [Units/volume] - Serum by Immunoassay [facility] Start: 07-08-2022 Liquid based cervical cytology screening [facility] Start: 06-15-2022 Fibrin dgradj products d-dimer quantitative FIBRIN DEGRADATION QUANT [facility] Start: 02-19-2022 Simple repair scalp/neck/ax/genit/trunk 2.5cm/< RPR S/N/AX/GEN/TRNK 2.5CM/< [facility] Start: 2021 COLOGUARD (FIT-DNA) COLOGUARD (FIT-DNA) [facility] Start: 2021 Colonoscopy COLONOSCOPY [facility] Start: 2021 COLORECTAL CANCER SCREENING COLORECTAL CANCER SCREENING [facility] Start: [address] COLONOGRAPHY [facility] Start: 2021 FECAL OCCULT BLOOD FECAL OCCULT BLOOD [facility] Start: 2021 Lipid 1996 panel - Serum or Plasma Lipid Screening [facility] Start: 2021 LIPID SCREEN LIPID SCREEN [facility] Start: 2021 Screening for malignant neoplasm of colon [facility] Start: 2021 SIGMOIDOSCOPY SIGMOIDOSCOPY [facility] Start: 11-27-2021 Influenza vaccination INFLUENZA (#1) [facility] Start: 10-29-2021 Patient referral [facility] Work Phone: Start: 04-29-2021 Urine microalbumin profile [facility] Start: 04-08-2021 COVID-19 VACCINE (4 - Booster for Moderna series) COVID-19 VACCINE (4 - Booster for Moderna series) [facility] Start: 04-08-2021 COVID-19 VACCINE (4 - Moderna series) COVID-19 VACCINE (4 - Moderna series) [facility] Start: 10-05-2019 PAP TESTING PAP TESTING [facility] Start: 10-05-2019 Screening for malignant neoplasm of cervix Pap Testing [facility] Start: 10-04-2017 Screening for malignant neoplasm of cervix Cervical Cancer Screening [facility] Start: 2016 Mammography [facility] Start: 2016 Screening for malignant neoplasm of breast [facility] Start: 2006 HPV TESTING HPV TESTING [facility] Start: 2006 Screening for malignant neoplasm of cervix [facility] Start: 1997 Screening for malignant neoplasm of cervix [facility] Start: 1994 Diabetes mellitus screening Diabetes Screening [facility] Start: 1994 HEPATITIS C SCREENING HEPATITIS C SCREENING [facility] Start: 1994 Hepatitis C screening Hepatitis C Screening [facility] Start: 1994 HIV SCREENING HIV SCREENING [facility] Start: 1994 HIV screening HIV Screening [facility] Start: 1982 Pneumococcal Vaccine: Pediatrics (0 to 5 Years) and At-Risk Patients (6 to 64 Years) (1 of 2 - PCV) Pneumococcal Vaccine: Pediatrics (0 to 5 Years) and At-Risk Patients (6 to 64 Years) (1 of 2 - PCV) [facility] Start: 1977 MMR Vaccines (1 of 1 - Standard series) MMR Vaccines (1 of 1 - Standard series) [facility] Start: 1976 HEPATITIS B (1 of 3 - 3-dose series) HEPATITIS B (1 of 3 - 3-dose series) [facility] Start: 1976 HIV screening HIV Screening [facility] Start: 1976 Lipid panel Lipid Panel [facility] Start: 1976 Screening for malignant neoplasm of colon [facility] Anion gap measurement [facility] Bacteria identified in Urine by Culture URINE CULTURE Microbiology Routine Burning with urination Ordered: 01/05/2022 [facility] Work Phone: Comment on above: Ordered: 01/05/2022 Bordetella pertussis IgA Ab [Units/volume] in Serum [facility] Bordetella pertussis IgG Ab [Units/volume] in Serum [facility] Bordetella pertussis IgM Ab [Units/volume] in Serum [facility] BREATH TEST GLUCOSE BREATH TEST GLUCOSE Endoscopy Routine Bloating 03/12/2022 8:48 AM EST [facility] Work Phone: BREATH TEST LACTOSE BREATH TEST LACTOSE Endoscopy Routine Bloating 03/04/2022 2:49 PM EST [facility] Work Phone: BUN/Creatinine ratio [facility] Calcium [Mass/volume ] in Serum or Plasma [facility] Carbon dioxide, tota l [Moles/volume] in Serum or Plasma [facility] Chloride [Moles/volu me] in Serum or Plasma [facility] Clostridioides diffi cile DNA [Presence] in Unspecified specimen by MARELY with probe detection [facility] Creatinine [Moles/vo lume] in Serum or Plasma [facility] End: 2024 CT for calcium scoring WO contrast and CTA W contrast IV Heart and coronary arteries [facility] Service Area Work Phone: Comment on above: Once for 1 Occurrences starting 12/28/19 until 2024 End: 08-06-2024 CT Kidney WO and W contrast IV CT UROGRAM WO/W IVCON Radiology Routine Gross hematuria 1 Occurrences starting 07/08/2023 until 08/06/2024 [facility] Work Phone: Comment on above: 1 Occurrences starting 07/08/2023 until 08/06/2024 CT Kidney WO and W contrast IV CT UROGRAM WO/W IVCON Radiology Routine Gross hematuria 07/09/2023 2:21 PM EDT [facility] Work Phone: Elastase.pancreatic [Presence] in Stool [facility] Fat [Mass/mass] in Stool [facility] ster [facility] Fat [Presence] in Stool [facility] Fat.neutral [Presenc e] in Stool [facility] Gastrointestinal pathogens panel - Stool by MARELY with probe detection [facility] Giardia lamblia anti gen assay [facility] Glucose [Mass/volume ] in Serum or Plasma [facility] IgA [Mass/volume] in Serum or Plasma [facility] IgE [Units/volume] i n Serum or Plasma [facility] IgG [Mass/volume] in Serum or Plasma [facility] IgM [Mass/volume] in Serum or Plasma [facility] Lactoferrin [Presenc e] in Stool by Immunoassay [facility] Measurement of occul t blood in stool specimen using immunoassay [facility] Measurement of renal function [facility] MG Breast - bilatera l Screening [facility] Ova and parasites identified in Unspecified specimen by Light microscopy [facility] Path report.final Dx Spec [facility] Patient Education [facility] Work Phone: Patient referral [facility] Work Phone: Potassium [Moles/vol ume] in Serum or Plasma [facility] Protein measurement [facility] Sodium [Moles/volume ] in Serum or Plasma [facility] Urea nitrogen [Mass/volume] in Serum or Plasma [facility] Immunizations Immunization Date Immunization Notes Care Provider [facility] 01-14-2025 influenza, seasonal, injectable, preservative free Naga Hurt MD Work Phone: [facility] 12-31-2023 influenza virus vaccine, unspecified formulation Ashley Gomez APN - [facility] Work Phone: [facility] 11-10-2023 Pneumococcal Conjuga te PCV20, Pf (Prevnar 20) Ashley Gomez APN - INTERFACE ANALYST Work Phone: [facility] 12-16-2022 influenza, injectabl e, quadrivalent, preservative free Fallon Pop MD Work Phone: [facility] 12-16-2022 Seasonal, quadrivale nt, recombinant, injectable influenza vaccine, preservative free Ashley Gomez APN - INTERFACE ANALYST Work Phone: [facility] 12-16-2022 influenza virus vaccine, unspecified formulation Nahomi Vides DO Work Phone: [facility] 10-30-2022 tetanus toxoid, redu katy diphtheria toxoid, and acellular pertussis vaccine, adsorbed Ashley Gomez APN - INTERFACE ANALYST Work Phone: [facility] 07-29-2021 hepatitis B vaccine, adult dosage [facility] 02-28-2021 hepatitis B vaccine, adult dosage [facility] 02-11-2021 Covid (Moderna) [facility] 01-28-2021 hepatitis B vaccine, adult dosage [facility] 01-28-2021 influenza, injectabl e, quadrivalent, preservative free [facility] 01-28-2021 influenza, seasonal, injectable [facility] 01-28-2021 influenza, seasonal, injectable, preservative free Ashley Gomez APN - INTERFACE ANALYST Work Phone: [facility] 01-28-2021 influenza virus vaccine, unspecified formulation Ashley Gomez APN - INTERFACE ANALYST Work Phone: [facility] 07-12-2020 COVID-19 vaccine, fu ll dose (MODERNA) Sada Snyder MD Work Phone: [facility] Work Phone: 06-13-2020 COVID-19 vaccine, fu ll dose (MODERNA) Sada Snyder MD Work Phone: [facility] Work Phone: 01-12-2020 influenza, injectabl e, quadrivalent, preservative free Ashley Gomez APN - INTERFACE ANALYST Work Phone: [facility] 01-12-2020 influenza, seasonal, injectable Dr. Ashok Siu Work Phone: [facility] 12-22-2018 influenza, injectabl e, quadrivalent, preservative free [facility] 12-22-2018 influenza, seasonal, injectable Sada Snyder MD Work Phone: [facility] 12-24-2016 influenza, injectabl e, quadrivalent, preservative free [facility] 12-24-2016 influenza, seasonal, injectable Sada Snyder MD Work Phone: [facility] 03-01-2014 influenza, injectabl e, quadrivalent, preservative free [facility] 03-01-2014 influenza, seasonal, injectable Sada Snyder MD Work Phone: [facility] 02-20-2013 influenza virus vaccine, unspecified formulation Sada Snyder MD Work Phone: [facility] Work Phone: 04-29-2011 tetanus toxoid, redu katy diphtheria toxoid, and acellular pertussis vaccine, adsorbed Sada Snyder MD Work Phone: [facility] Work Phone: 01-22-2011 influenza virus vaccine, unspecified formulation Sada Snyder MD Work Phone: [facility] Work Phone: 01-23-2010 influenza virus vaccine, unspecified formulation Sada Snyder MD Work Phone: [facility] 03-12-2009 novel [id number], all formulations Sada Snyder MD Work Phone: [facility] Work Phone: 12-22-2008 influenza virus vaccine, unspecified formulation Sada Snyder MD Work Phone: [facility] Work Phone: 02-03-2008 influenza virus vaccine, unspecified formulation Sada Snyder MD Work Phone: [facility] Work Phone: 01-24-2007 influenza virus vaccine, unspecified formulation Sada Snyder MD Work Phone: [facility] Work Phone: 02-01-2006 influenza virus vaccine, unspecified formulation Sada Snyder MD Work Phone: [facility] Work Phone: Payers Date Payer Category Payer Medicaid (Managed Care) [employer] [id number] 2024 Self-pay [id number] 2022 Medicaid HMO [id number] 2022 Unknown [employer] [id number] 2022-Present [address] [place] [address] Commercial [id number] 2022 Unknown [id number] 2020 Medicaid [employer] MEDICAID [id number] 2020-Present [phone] [address] [place] [address] Medicaid [id number] 2019 Medicaid [id number] 1975 Unknown [id number]. 1243 Unknown [id number] Unknown [id number] Unknown [id number] Unknown [id number] Unknown [employer] [id number] Unknown [employer] [id number] Unknown [id number] [id number]. 462 Unknown [id number] 2.840.1.736882.3.579.2. 462 Unknown [id number] 2.16.840.1.803050.3.579.2. 462 Unknown [id number] 2.16.840.1.564326.3.579.2. 462 Unknown [id number] 2.16.840.1.778820.3.579.2. 462 Unknown [id number] 2.16.840.1.956523.3.579.2. 462 Unknown [id number] 2.16.840.1.901256.3.579.2. 462 Unknown [id number] 2.16.840.1.311055.3.579.2. 462 Unknown [id number] 2.16.840.1.931120.3.579.2. 462 Unknown [id number] 2.16.840.1.038861.3.579.2. 462 Unknown [id number] 2.16.840.1.236320.3.579.2. 462 Unknown [id number] 2.16.840.1.113940.3.579.2. 462 Unknown [id number] 2.16.840.1.813452.3.579.2. 462 Unknown [id number] 2.16.840.1.960215.3.579.2. 462 Unknown [id number] 2.16.840.1.544612.3.579.2. 462 Unknown [id number] 2.16.840.1.185250.3.579.2. 462 Unknown [id number] 2.16.840.1.922857.3.579.2. 462 Unknown [id number] 2.16.840.1.599930.3.579.2. 462 Unknown [id number] 2.16.840.1.213219.3.579.2. 462 Social History Date Type Detail Facility Start: 02-21-2021 End: 07-14-2023 Tobacco smoking status AKIS Unknown if ever smoked [facility] Start: 11-21-2019 Non-smoker [facility] Start: 1975 Sex Assigned At Female C [facility] Start: 01-05-2022 End: 10-29-2022 Tobacco smoking status AKIS Never smoked tobacco [facility] Start: 12-31-2020 End: 11-15-2024 Alcohol intake Current drinker of alcohol (finding) [facility] Start: 10-10-2020 History SDOH Alcohol Frequency 3 [facility] Start: 10-10-2020 History SDOH Alcohol Std Drinks 1 [facility] Start: 12-31-2020 History SDOH Alcohol Comment socially [facility] Start: 10-10-2020 History SDOH Social Connections Phone 5 [facility] Start: 10-10-2020 History SDOH Social Connections Pentecostalism 2 [facility] Start: 10-10-2020 History SDOH Stress 4 [facility] Start: 10-10-2020 Education 12 [facility] Start: 01-05-2022 End: 10-29-2022 Tobacco use and exposure Smokeless tobacco non-user [facility] Start: 01-06-2020 End: 12-16-2022 Exposure to SARS-CoV-2 (event) Not sure [facility] Start: 06-15-2022 End: 11-14-2024 History of Social function [facility] Start: 06-15-2022 End: 11-14-2024 Tobacco use panel [facility] Start: 11-22-2024 National Score (1-10 0), lower number is lower risk 81 [facility] Start: 02-27-2021 Gender identity Identifies as female gender (finding) [facility] Start: 02-27-2021 Sexual orientation Heterosexual (hiro evans) [facility] How often to you hav e a drink containing alcohol? Monthly or less [facility] How many standard drinks containing alcohol do you have on a typical day? 1 or 2 [facility] How often do you hav e 6 or more drinks on 1 occasion? Never [facility] (I/We) worried wheth er (my/our) food would run out before (I/we) got money to buy more. Never true [facility] In the past 12 month s, was there a time when you were not able to pay the mortgage or rent on time? No [facility] Start: 10-29-2022 Alcohol Comment on occasion [facility] Start: 1975 Sex Assigned At Not on file S [facility] Do you belong to any clubs or organizations such as advent groups, unions, fraternal or athletic groups, or school groups? Yes [facility] Are you now , , , , never or living with a partner? [facility] How often to you hav e a drink containing alcohol? 2-4 times a month [facility] Do you feel stress - tense, restless, nervous, or anxious, or unable to sleep at night because your mind is troubled all the time - these days [OSQ] Rather much [facility] Start: 11-10-2023 Alcohol Comment Occasionally [facility] Start: 06-02-2007 Alcohol Comment rare [facility] Start: 10-09-2022 Sex Female (finding) [facility] Do you feel stress - tense, restless, nervous, or anxious, or unable to sleep at night because your mind is troubled all the time - these days [OSQ] To some extent [facility] How hard is it for y ou to pay for the very basics like food, housing, medical care, and heating Somewhat hard [facility] Do you feel stress - tense, restless, nervous, or anxious, or unable to sleep at night because your mind is troubled all the time - these days [OSQ] Very much [facility] (I/We) worried wheth er (my/our) food would run out before (I/we) got money to buy more. Sometimes true [facility] The food that (I/we) bought just didn't last, and (I/we) didn't have money to get more. Often true [facility] NEGATED: Highlighted row [facility] Medical Equipment Procedure Code Equipment Code Equipment Origin al Text Equipment Identifier Dates ([id number]) Polymeric ureter al stent [id number] FDA Start: 07-05-2023 Goals Date Patient Goal Desired Activity /State Functional Status Date Assessment Result Facility 07-05-2023 Functional status Bathroom Privilege [facility] Work Phone: [facility] Mental Status Date Assessment Result Facility 07-05-2023 Cognitive function Voice/Name [facility] Work Phone: 07-04-2023 Cognitive function Appropriate;C ooperative;Ta lkative [facility] Work Phone: 06-10-2023 Cognitive function Voice/Name [facility] Work Phone: Clinical Notes 02-05-2020 to 01-17-2025 Telephone Encounter - TERE Chung CNP - 01/17/2025 7:28 AM EDTTelephone Encounter - TERE Chung CNP - 01/17/2025 7:28 AM EDT Note Date & Type Note Facility 01-17-2025 Telephone encounter Note Rx sent. Follow up as scheduled. [facility] 01-17-2025 Miscellaneous Notes Rx sent. Follow up as scheduled. documented in this encounter [facility] 12-14-2024 Telephone encounter Note Rx sent. Follow up as scheduled. [facility] 12-14-2024 Miscellaneous Notes Rx sent. Follow up as scheduled. Prescription Request: fluticasone propionate 50 mcg/actuation nasal spray,suspension Last medication check: 05/17/24 Last physical exam: 11/15/24 Next scheduled appointment: 05/16/25 Last date of refill on this medication 05/28/24 ( qty 16 g refill 2) documented in this encounter [facility] 12-14-2024 Telephone encounter Note Prescription Request: fluticasone propionate 50 mcg/actuation nasal spray,suspension Last medication check: 05/17/24 Last physical exam: 11/15/24 Next scheduled appointment: 05/16/25 Last date of refill on this medication 05/28/24 ( qty 16 g refill 2) [facility] 11-16-2024 Telephone encounter Note Med and labs pended. [facility] 11-16-2024 Miscellaneous Notes Med and labs pended. documented in this encounter [facility] 10-20-2024 Radiology Diagnostic study note [facility] [address] [place], [place] [address] Pelvic w/ Transvaginal MR#: [id number] Acct: [id number] Name: MARCELINO ARAIZA Rep #: [id number] : 1975 F 48 From: Rubia Lind MD PCP: TEJINDER Le Status: REG CLI Study:Pelvic w/ Transvaginal Date of Exam: 10/18/24 Exam# [id number] Ordering Dr: Chrystal Gould DO PROCEDURE: PELVIC W/ TRANSVAGINAL 10/18/2024 REASON [...] of malignancy). No follow-up recommended. Reading Location: [facility] CC: TEJINDER Gomez; Dr. Chrystal Conteh DO ~ Decatizer: Signed [facility] 10-10-2024 Radiology Diagnostic study note [facility] [address] [place] [address] Finger(s) Min 2 Views MR#: [id number] Acct: [id number] Name: MARCELINO ARAIZA Rep #: [id number] : 1975 F 48 From: Cynthia Burks MD PCP: TEJINDER Le Status: REG CLI Study:Finger(s) Min 2 Views Date of Exam: 10/09/24 Exam# [id number] Ordering Dr: ROSEANN MIJARES PROCEDURE: FINGER(S) MIN 2 VIEWS 10/09/2024 REASON FOR EXAM: INDEX FINGER MASS TECHNIQUE: FINGER(S) MIN 2 VIEWS COMPARISON: No FINDINGS: Mild osteoarthritic changes, interphalangeal joints, mainly small osteophyte formation, and juxta-articular soft tissue calcification.. No acute bone or soft tissue pathology. RAD/Finger(s) Min 2 Views IMPRESSION: Mild osteoarthritic changes Reading [facility] CC: SHERINE-C Ashley Gomez; ROSEANN GEE ~ Decatizer: Signed [facility] 10-04-2024 Telephone encounter Note Reviewed chart. Refill appropriate. RX sent. [facility] 10-04-2024 Miscellaneous Notes Reviewed chart. Refill appropriate. RX sent. Prescription Request: Last medication check: 05/17/24 Last physical exam: 11/10/23 Next scheduled appointment: 11/15/24 Last date of refill on this medication 02/25/24 documented in this encounter [facility] 10-04-2024 Telephone encounter Note Prescription Request: Last medication check: 05/17/24 Last physical exam: 11/10/23 Next scheduled appointment: 11/15/24 Last date of refill on this medication 02/25/24 [facility] 09-03-2024 Radiology Diagnostic study note [facility] [address] [place], [place] [address] Pelvic w/ Transvaginal MR#: [id number] Acct: [id number] Name: MARCELINO ARAIZA Rep #: [id number] : 1975 F 48 From: Pet er Melany WYNN PCP: TEJINDER Le Status: REG CLI Study:Pelvic w/ Transvaginal Date of Exam: 09/01/24 Exam# [id number] Ordering Dr: Chrystal Gould DO PROCEDURE: PELVIC [...] weeks. Uterus unremarkable as seen. Reading [facility] CC: TEJINDER Gomez; Dr. Chrystal Conteh, DO ~ Decatizer: Signed [facility] 08-30-2024 Evaluation note Diagnosis Onset Date Resolution ASCUS of cervix with negative high risk HPV acute August 30, 2024 9:48am Skin lesion acute August 30 9:48am Vaginal atrophy acute August 30, 2024 9:48am Encounter for routine gynecological examination noneactive August 30, 2024 9:48am Gastroparesis acute October 18, 2024 9:50am IBS (irritable bowel syndrome) chronic October 18, 2024 9:50am Abdominal pain inactive October 18, 2024 9:50am [facility] Work Phone: 1(987) 129-794904-25-2025 History of Present illness Narrative* Ashley Gomez, TERE - INTERFACE ANALYST - 07/21/2024 1:40 PM EDT Images from the original note [...] that they are currently in the state [facility]. If the patient is a minor, [...] she takes for her depression and anxiety. Statesthe current dose is working well for her. [...] and suicidal ideas. The patient isnot nervous/anxious. There were no vitals filed for [...] CNP 07/21/2024 1:56 PM documented in this [facility]04-11-2025 Evaluation note* Diagnosis Onset Date Resolution Status [...] routine gynecological examination noneactive August 302024 9:48am [facility] Work Phone: 1(395) 221-296804-11-2025 Evaluation note* Diagnosis Onset Date Resolution Status Admit Date Gastroparesis acute July 07, 2024 10:24am IBS (irritable bowel syndrome) chron ic July 07, 2024 10:24am Abdominal pain inactive June 10:24am Encounter for routine gynecological examination noneactive August 302024 9:48am [facility] Work Phone: 1(955) 664-979304-11-2025 Evaluation note* Diagnosis Onset Date Resolution Status [...] Abdominal pain inactive October 18, 2024 9:50am [facility] Work Phone: 1(922) 784-757602-28-2025 Telephone encounter Note* Telephone Encounter - Loida Bautista MA - 05/26/2024 9:42 AM EST Prescription Request: Last medication check: 05/17/24 Last physical exam: 11/10/23 Next scheduled appointment: 11/15/24 Last date of refill on this medication 04/30/23 [id number] Miscellaneous Notes* Telephone Encounter - Loida Bautista MA - 05/26/2024 9:42 AM EST Prescription Request: Last medication check: 05/17/24 Last physical exam: 11/10/23 Next scheduled appointment: 11/15/24 Last date of refill on this medication 04/30/23 documented in this [facility]02-19-2025 History of Present illness Narrative* Juana Nogueira MA - 05/17/2024 9:20 AM EST Patient verified by last name and . * TERE Chung CNP - 05/17/2024 9:20 AM EST 05/17/2024 Marcelino Araiza (: 1975) is a 48 y.o. female , Established patient, here for evaluation of the following chief complaint(s): Blood Work, Medication Check, Anxiety, Depression, Hypertension, GERD, Obesity, Vitamin D Deficiency, and Health Maintenance (Mammo- had done at [facility] ) ASSESSMENT/PLAN: 1. Vitamin D deficiency [...] and it was recommended she see a acute dialysis nurse- saw them in November. Will use Cyclobenzaprine [...] CNP 05/17/2024 9:34 AM documented in this [facility]12-12-2024 Telephone encounter Note* Telephone Encounter - Merry Hoffman MA - 03/09/2024 8:43 AM EST Prescription Request: Last medication check: 06/18/23 Last physical exam: 11/10/23 Next scheduled appointment: 05/17/24 Last date of refill on this medication 03/30/23 18g 2 [id number] Miscellaneous Notes* Telephone Encounter - Merry Hoffman MA - 03/09/2024 8:43 AM EST Prescription Request: Last medication check: 06/18/23 Last physical exam: 11/10/23 Next scheduled appointment: 05/17/24 Last date of refill on this medication 03/30/23 18g 2 refills documented in this [facility]12-02-2024 Telephone encounter Note* Telephone Encounter - TERE Abdullahi CNP - 02/28/2024 9:01 AM EST Reviewed chart. Refill appropriate. [address]. [id number] Miscellaneous Notes* Telephone Encounter - TERE Abdullahi CNP - 02/28/2024 9:01 AM EST Reviewed chart. Refill appropriate. RX sent. * Telephone Encounter - Juana Nogueiar MA - 02/28/2024 8:41 AM EST Prescription Request: Last medication check: 04/28/2023 Last physical exam: 11/10/2023 Next scheduled appointment: 05/17/2024 Last date of refill on this medication: 08/13/2023 documented in this [facility]12-02-2024 Telephone encounter Note* Telephone Encounter - Juana Nogueira MA - 02/28/2024 8:41 AM EST Prescription Request: Last medication check: 04/28/2023 Last physical exam: 11/10/2023 Next scheduled appointment: 05/17/2024 Last date of refill on this medication: 08/13/2023 [id number] History of Present illness Narrative* TERE Chung [...] [facility] of them. [...] that they are currently in the state [facility]. If the patient is a minor, [...] visit for follow up on her fatigue. Comfort this may be related to her Prozac [...] CNP 02/25/2024 10:00 AM documented in this [facility]11-13-2024 History of Present illness Narrative* Juana Nogueira [...] stated that they are currently in the [facility]. If the patient is a minor, permission [...] CNP 02/09/2024 1:05 PM documented in this [facility]09-25-2024 Instructions* Patient Instructions* Kim Malhotra MD - 12/22/2023 10:30 AM EDT -Please go to the lab today for blood work -Please follow up after results are obtained [facility] NoteHNO ID: [id number] Author: FALLON RIVAS MD Service: ? Author [...] reports she used to work in a [employer] for 5 years in the past and [...] (FLONASE) 50 mcg/actuation nasal spray Use 1 [place] in each nostril once daily. buPROPion XL (WELLBUTRIN XL) 300 mg 24 hr tablet Take (more content not included)...[facility]09-25-2024 History of Present illness Narrative* Fallon [...] reports she used to work in a [employer] 5 years in the past and that [...] (FLONASE) 50 mcg/actuation nasal spray Use 1 [place] in each nostril once daily. buPROPion XL [...] results. Kim Marino MD Vascular Medicine PGY-4 [facility] RHEUMATOLOGY STAFF: I have reviewed the history [...] which included preparing to see the patient, [id number] patient care, completing clinical documentation, obtaining and/or reviewing separately obtained history, performing a medically appropriate examination, counseling and educating the pat ient/family/caregiver, ordering medications, tests, or procedures, and independently interpreting results (not separately reported). Fallon Martinez MD, MPH Authenticated by responsible provider. documented in this encounterGu[facility]08-[facility] History of Present illness Narrative* Loida Buatista MA - 11/10/2023 10:00 AM EDT Patient was verified by name and . After obtaining consent, and per orders of Ashley Gomez CNP, injection of PCV20 given in left deltoid by Loida Bautista. Patient instructed to report any adverse reaction immediately. * TERE Chung CNP - 11/10/2023 10:00 AM EDT Images from the original note were not included. [facility] [address] [facility] [address] Dept: [phone] Dept Loc: [phone] HPI: Marcelino Araiza is a 47 y.o. [...] and it was recommended she see a acute dialysis nurse. Is scheduled to [facility] someone through [facility] December. Obesity: Denies regular exercise [...] flank pain- has a scan scheduled in [place] today. Was told she might need a [...] mg) by mouth daily. 90 tablet 1 zertzwvfqpyd-fyah-xhdczkzr-folic acid (Centrum) chewable tablet Chew 1 tablet [...] Questionnaire-2 Score: 0 Last 3 PHQ-9 Scores 11/10/2023955 Patient Health Questionnaire-9 Score: 5 Physical Exam [...] CNP 11/10/2023 10:24 AM documented in this encounterSVeterans Health AdministrationEozszs09-02-2433 Telephone encounter Note* Telephone Encounter - Lauren Browne - 10/27/2023 10:36 AM EDT Thank you Christa, I will cancel the US. Lauren [facility] HospitalZgscvd52-44-7250 Miscellaneous Notes* Telephone Encounter - Lauren Browne [...] renal scan Zarina Valverde documented in this encounterSVeterans Health AdministrationBsdisj70-61-1691 Telephone encounter Note* Telephone Encounter - TERE Castaneda CNP - 10/27/2023 10:14 AM EDT She just had a ct scan. She no longer needs an ultrasound [facility] HospitalVljgwq45-60-4208 Telephone encounter Note* Telephone Encounter - Lauren Browne - 10/27/2023 9:42 AM EDT Christa, You said to get a US and NM kidney flow and function - do you want both or just one? Also you need to cancel the order that you put in procedures. ThanksLauren [facility] HospitalXkpvic70-80-5616 Telephone encounter Note* Telephone Encounter - TERE Castaneda CNP - 10/27/2023 8:18 AM EDT Order placed. [facility] HospitalDvdxpq97-39-8104 Telephone encounter Note* Telephone Encounter - Zarina Valverde - 10/27/2023 7:[address] order under imaging I can then can then call to schedule lasix renal scan Zarina Valverde [facility] HospitalOswtvm81-20-4794 History of Present illness Narrative* Christa Wong, APN - INTERFACE ANALYST - 10/20/2023 2:20 PM EDT Images from the original note were not included. Christa Wong, TERE 10/20/2023 at 2:35 PM Urology Office Visit [facility] [address] [facility] [address] Dept: [phone] Dept Loc: [phone] The patient, Ms. Araiza is a 47 [...] stated that they are currently in the [facility]. If the patient is a minor, permission [...] Plan: Diagnosis Plan 1. Left flank pain [facility] Urology 2. Hematuria, unspecified type [facility] Urology Addressed Flank pain: ? Stone passage given significant flank pain 10/17 UA- 0 RBC/HPF 10/14- UA 3-5 RBC/HPF Has had significant relief of pain since ER visit. Still with slight soreness. Recommend continuing fluids Complete Lasix scan as ordered previously. Doing significantly better today compared to prior visit. Follow Up: Christa Wong APRN [facility] Urology HPI: Ms. Araiza is a 47 [...] Daily meloxicam (MOBIC) 15 mg, Oral, Daily vmhfnzcmsbps-bzrn-goiaxcmb-folic acid (Centrum) chewable tablet 1 tablet, Oral, [...] Imaging: Patient Name: MARCELINO ARAIZA : 1975 [id number] Exam Date/Time: 10/18/2023 14:40 Procedure: CT ABDOMEN [...] portions of this chart were dictated using StreetFire voice recognition software. It is possible that typos and/or omissions and/or substitutions of words and/or phrases may exist, which may alter the intended meaning of the dictating provider. documented in this [facility]07-22-2024 Hospital Discharge instructions* Discharge Instructions* Nahomi Vides [...] through Care Everywhere. * Flank Pain ED (German) documented in this [facility]07-22-2024 Emergency department Note* Marcelino Valencia RN - [...] general sense of unwell. documented in this encounterSVeterans Health AdministrationOnqfdm67-81-8989 Emergency department Triage note* Marcelino Valencia RN [...] some nausea and general sense of unwell. [facility] HospitalVzdmkb95-13-7580 History of Present illness Narrative* Christa TERE Wong - INTERFACE ANALYST - 10/15/2023 10:00 AM EDT Images from the original note were not included. Christa Wong APRN 10/27/2023 at 8:39 AM Urology Office Visit [facility] [address] [facility] [address] Dept: [phone] Dept Loc: [phone] The patient, Ms. Araiza is a 47 [...] that they are currently in the state [facility]. If the patient is a minor, [...] flow/function w/wo lasix; Future Gross hematuria - [facility] Urology - US retroperitoneum; Future - Cancel: Urine culture; Future - Cancel: Urine culture - Cancel: Complete Urinalysis; Future - Cancel: Complete Urinalysis - NM Renal Function Mag 3 with Lasix; Future - Complete Urinalysis; Future - Urine culture; Future - NM kidney flow/function w/wo lasix; Future Left lower quadrant abdominal pain - [facility] Urology - US retroperitoneum; Future - Cancel: [...] OR note Reviewed prior CT Urogram from [facility] Reviewed prior cystoscopy and biopsy Squamous [...] verbalizes understanding. Follow Up: ABHIJEET Wong APRN [facility] Urology Subjective: Ms. Araiza is a 47 [...] was removed later that day. Evaluated by [facility] urology as well in Api -CT Urogram ordered given persistent pain and hematuria - negative - discussed following up PRN Review of Systems All pertinent positives and negatives per [facility] as stated above. Social History Social History [...] Daily meloxicam (MOBIC) 15 mg, Oral, Daily lipqcsocknwk-tnxi-aadhiwlp-folic acid (Centrum) chewable tablet 1 tablet, Oral, [...] portions of this chart were dictated using StreetFire voice recognition software. It is possible that typos and/or omissions and/or substitutions of words and/or phrases may exist, which may alter the intended meaning of the dictating provider. documented in this [facility]06-19-2024 History of Present illness Narrative* TERE Chung [...] that they are currently in the state [facility]. If the patient is a minor, [...] 11/03/2023) for Next scheduled follow-up. SUBJECTIVE/OBJECTIVE: JUSTO Abbasi Marcelino presents today for a video virtual [...] CNP 09/15/2023 11:07 AM documented in this [facility]06-03-2024 Telephone encounter Note* Telephone Encounter - Destiny Wilhelm - 08/30/2023 4:09 PM EDT Reached out to pt, pt prefers [place] office. Scheduled first available with Dr. Holden on 11/10/23 in the [place] office and placed on the wait list in case of a cancellation. [facility] HospitalGmzywm17-61-3260 Miscellaneous Notes* Telephone Encounter - Destiny Wilhelm - 08/30/2023 4:09 PM EDT Reached out to pt, pt prefers [place] office. Scheduled first available with Dr. Holden on 11/10/23 in the [place] office and placed on the wait list in case of a cancellation. * Telephone Encounter - Vidya Guillen - 08/27/2023 10:04 AM EDT Name of Caller: Marcelino Contact Reason for Appointment: Patient called to schedule an appointment per referral. R31.0 (ICD-10-CM) - Gross hematuria R10.32 (ICD-10-CM) - Left lower quadrant abdominal pain Please advise Office Name: Urology documented in this encounterSVeterans Health AdministrationLanwwd58-46-9619 Telephone encounter Note* Telephone Encounter - Vidya LTomás Guillen - 08/27/2023 10:04 AM EDT Name of Caller: Marcelino Contact Reason for Appointment: Patient called to schedule an appointment per referral. R31.0 (ICD-10-CM) - Gross hematuria R10.32 (ICD-10-CM) - Left lower quadrant abdominal pain Please advise Office Name: Urology [facility] HospitalYcwlml25-90-0590 History of Present illness Narrative* TERE Chung CNP - 08/27/2023 9:40 AM EDT Images from [...] that they are currently in the state [facility]. If the patient is a minor, [...] CNP 08/27/2023 9:55 AM documented in this [facility]05-17-2024 History of Present illness Narrative* Juana Nogueira MA - 08/13/2023 1:20 PM EDT Patient verified by last name and . * Ashley Martinez Jason, APN - INTERFACE ANALYST - 08/13/2023 1:20 PM EDT Images from [...] stated that they are currently in the [facility]. If the patient is a minor, permission has been obtained by the parent or guardian for the patient to receive medical care at this visit. ASSESSMENT/PLAN: 1. Depressive disorder - FLUoxetine (PROzac) 20 MG capsule; Take 1 capsule (20 mg) by mouth daily. Take with 40 mg dose for a total of 60 mg, Starting 08/13/2023, Normal - Not at goal. Will increase Prozac to 60 mg daily and do a close follow up in 2 weeks. 2. Anxiety - FLUoxetine (PROzac) 20 MG capsule; Take 1 capsule (20 mg) by mouth daily. Take with 40 mg dose for a total of 60 mg, Starting 08/13/2023, Normal - Not at goal. Will increase Prozac to 60 mg daily and do a close follow up in 2 weeks. 3. Gross hematuria - [facility] Urology 4. Left lower quadrant abdominal pain - [facility] Urology 5. Osteoarthritis of both knees, unspecified osteoarthritis type - meloxicam (Mobic) 15 MG tablet; Take 1 tablet (15 mg) by mouth daily., Starting 08/13/2023, Normal - Stable with Meloxicam. Will continue [...] CNP 08/13/2023 1:36 PM documented in this [facility]05-14-2024 Telephone encounter Note* Telephone Encounter - Loida Bautista MA - 08/10/2023 1:19 PM EDT Patient states she wants this done at [facility]. Is there a way to note this so [facility]? [facility] HospitalLfuwwj59-04-5229 Miscellaneous Notes* Telephone Encounter - Loida Bautista MA - 08/10/2023 1:19 PM EDT Patient states she wants this done at [facility]. Is there a way to note this so [facility]'t call? * Telephone Encounter - Isa Moraes - 08/10/2023 11:26 AM EDT We have been unable to reach your patient to schedule their testing. Test Name: US pelvis transvaginal 1st attempt//mychart message//08.07.23 KGK 2nd attempt LVM 08/10/23 CP deferred documented in this [facility]05-14-2024 Telephone encounter Note* Telephone Encounter - Isa Moraes - 08/10/2023 11:26 AM EDT We have been unable to reach your patient to schedule their testing. Test Name: US pelvis transvaginal 1st attempt//mychart message//08.07.23 KGK 2nd attempt LVM 08/10/23 CP deferred [facility] HospitalVwblms81-21-3660 History of Present illness Narrative* Juana Nogueira [...] would usually since ER visit. * Ashley Martinez Jason, TERE - INTERFACE ANALYST - 07/16/2023 1:00 PM EDT Images from the original note were not included. 07/16/2023 Marcelino Araiza (: 1975) is a 47 y.o. female , Established patient, here for evaluation of the following chief complaint(s): ER Follow-up (Went to [place] ER, was bleeding badly from her urethra, [...] was taken out on Wednesday. Went to [facility] to get a second opinion, had [...] they are currently in the state of [place]. If the patient is a minor, permission [...] for a yeast infection via urologist [facility]. Is scheduled to follow back up [...] CNP 07/16/2023 1:08 PM documented in this [facility]04-17-2024 NotePap Smear Specimen AdequacyApril 2023 11:17amComment.Satisfactory for evaluation. Endocervical and/or squamous metaplasticcells (endocervical component)are present.[facility] INTERFACED A#[id number] HospitalComment on above: Satisfactory for evaluation. Endocervical and/or squamous metaplasticcells (endocervical component)are present.07-12-2023 NoteHNO ID: [id number] Author: YOJANA LARES MD Service: ? Author Type: Physician Type: Progress Notes Filed: 07/12/2023 08:34 Note Text: [facility] NEW PATIENT HISTORY AND PHYSICAL EXAM PATIENT INFO: Marcelino Araiza 47 year old REFERRING M.D.: No referring provider defined for this encounter. PCP: Ashley Gomez NP, INTERFACE ANALYST Date of Service: July 12, 2023 Consultation [...] Either the patient or their legal senior sales representative has been informed of the [...] 0.70 - 1.40 mg/dL Final URINALYSIS: Specific [place], Ur Date Value Ref Range Status 07/08/2023 [...] Reactions Ofloxacin Swelling Seaso (more content not included)...[facility]04-15-2024 History of Present illness Narrative* Yojana Lares MD - 07/12/2023 8:01 AM EDT [facility] NEW PATIENT HISTORY AND PHYSICAL EXAM PATIENT INFO: Marcelino Araiza 47 year old REFERRING M.D.: No referring provider defined for this encounter. PCP: Ashley Gomez NP, INTERFACE ANALYST Date of Service: July 12, 2023 Consultation [...] Either the patient or their legal senior sales representative has been informed of the [...] 0.70 - 1.40 mg/dL Final URINALYSIS: Specific [place], Ur Date Value Ref Range Status 07/08/2023 [...] (FLONASE) 50 mcg/actuation nasal spray Use 1 [place] in each nostril once daily. Cholestyramine, Bulk, [...] Level: 4 - Moderate documented in this encounterGuernsey [facility] Hospital04-12-2024 History of Present illness Narrative* Ernestina [...] PATIENT PRESENTS WITH AN IMPLANTABLE OR ATTACHED RELIEF MAN: No ALLERGIES: Reviewed and unchanged CONTRAST ALLERGY: [...] 2023 TIME: 4:11 PM documented in this encounterGuernsey Memorial Hospital04-12-2024 NoteHNO ID: [id number] Author: ERNESTINA TONG RT(R) Service: ? Author Type: Wire Hanger Type: Progress Notes Filed: 07/09/2023 16:12 Note [...] PATIENT PRESENTS WITH AN IMPLANTABLE OR ATTACHED RELIEF MAN: No ALLERGIES: Reviewed and unchanged CONTRAST ALLERGY: [...] Araiza DATE: July 09, 2023 TIME: 4:11 [facility]04-11-2024 History of Present illness Narrative* Maria Elena Carvajal APRN.INTERFACE ANALYST - 07/08/2023 9:00 AM EDT Referring Provider: [...] Negative per patient report. She presented to [facility] ED on 07/04/23 with clot [...] It was not completely healed. An 8 Honduran cone-tip catheter was used to gently cannulate [...] was used for placement of a 6 [place]uran 26 cm JJ stent with positioning in [...] CT urogram -Coordinate follow up virutal visit [facility] Lares after imaging completed. Further plan pending imaging results. Reviewed signs/symptoms that would warrant sooner evaluation including but not limited to fever, shaking chills, irretractable pain or vomiting Discussed with Dr. Lares Will fax today's office visit note to patient's local urologist Dr. Ashley Fair at [phone] I spent a total of 45 minutes on the date of the service which included preparing to see the patient, divl-tb-evzh patient care, completing clinical documentation, obtaining and/or reviewing separately obtained history, counseling and educating the patient/family/caregiver, and ordering medications, tests, or procedures. Maria Elena Carvajal APRN.CNP documented in this encounterGuernsey Memorial Hospital04-11-2024 NoteHNO ID: [id number] Author: MARIA ELENA CARVAJAL APRN.CNP Service: ? [...] Negative per patient report. She presented to [facility] ED on 07/04/23 with clot [...] It was not completely healed. An 8 [place]uran cone-tip catheter was used to gently cannulate the left ureteral orifice and contrast was injected in retrograde fashion under fluoroscopic visualization revealing no evidence of obstruction, foreign body or abnormality. The same findings were found on the patient's right side with the retrograde pyelogram. An attempt (more content not included)... [facility]04-11-2024 Nurse Note* Ileana Cherry MA - 07/08/2023 8:58 AM EDT Post Void Residual done on patient with 0 cc residual volume remaining. notified. Ileana Cherry MA documented in this encounterGuernsey Memorial Hospital04-11-2024 NotePatient Outreach (UROLMN) MARCELINO ARAIZA ([id number]) 1975 F Date Time Provider Department 07/08/23 [...] for genitourinary condition [Z13.89] Order(s):URINALYSIS, REFLEX MICROSCOPIC [YIA9499] Order #: [id number]. #:[id number] Prescriptions as of 07/12/2023 - doxycycline (VIBRA-TABS) [...] (FLONASE) 50 mcg/actuation nasal spray Use 1 [place] in each nostril once daily. 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] 06/15/2013 IBS (irritable bowel syndrome) [K58.9] Reactive airway disease with wheezing [J45.909] Encounter Status:Closed by EPIC, PRODUSER on 07/12/23[facility] 07-05-2023 Procedure [facility]04-07-2024 History and physical note Author Ashley Fair [facility] July 04, 2023 8:57pm Note Date/Time July 04, 2023 8:[address] [facility] Medical Records Department [address] [place] [address] History & Physical Exam 07/04/232050 MR#: [id number] Acct: [id number] Name: MARCELINO ARAIZA Rep #:[id number] : 1975 47 From: Ashley Sanchez PCP: TEJINDER Le Status:ADM RICKY Location: [facility] FE524-3 HPI - General General Date of Admission: [...] ago for squamous 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 [facility] Medical History (Updated 07/04/23 @ 20:56 by [...] 3 current occupational status: employed current occupation: [employer]- Patient Liason sexually active: Yes Smoking [...] % (Auto) 58.2, Lymph % (Auto) 29.8, [place] % (Auto) 5.8, Eos % (Auto) 4.9, [...] 8:50 EDT Reading Location ID and State: [address] [place] [address] , Service support , Assessment & Plan Assessment/Plan (1) Gross hematuria: (2) Lesion of bladder: PLAN: Plan Urine culture is pending Follow labs and supportive care N.p.o. after midnight Plan for cystoscopy with fulguration in the OR tomorrow, bilateral retrograde pyelograms, possible ureteroscopy 07/04/232056 <Electronically signed by Ashley Fair MD> Cosigner Signature (if applicable): CC: TEJINDER Gomez; Dr. Ashley Fair MD~ Signed [facility] Work Phone: 1(707) 194-189304-07-2024 Discharge summary Author Cirilo Garcias [facility] July 04, 2023 10:32am Note Date/Time July 04, 2023 7:51 am [facility] Medical Records Department [address] [place] [address] Emergency Department Summary 07/04/23 MR#: [id number] Acct: [id number] Name: MARCELINO ARAIZA Rep #:[id number] : 1975 47 From: Cirilo Garcias DO PCP: Ashley Jason, FILTER PRESS OPERATOR-C Status:REG ER Location: ED HPI HPI - [...] kidney stones that she knows of. PFSH [facility] Medical History Acid reflux Alcohol use Anemia [...] 3 current occupational status: employed current occupation: [employer]- Patient Liason sexually active: Yes Smoking [...] Clarity Turbid Urine pH 5.0 Ur Specific [place] 1.030 Urine Protein 500 H Urine Glucose [...] Ashley Gomez NP Referrals: Ashley Gomez NP, FILTER PRESS OPERATOR-C [Primary Care Provider] - What to do if you have Problems For any increased pain, shortness of breath, bleeding, nausea or vomiting, chestpain, or any unexpected problems, contact your Primary Care Provider. Call [facility] ([phone]) or report to the closest Emergency Room. Call 911 if necessary. 07/04/23 1032 <Electronically signed by Cirilo Garcias DO> Cosigner Signature (if applicable): CC: TEJINDER Gomez ~ Signed [facility] Work Phone: 1(306) 722-915104-07-2024 Discharge summary Author Cirilo Garcias [facility] July 04, 2023 10:32am Note Date/Time July 04, 2023 7:51 am [facility] Medical Records Department [address] [facility] [place] [address] Emergency Department Summary 07/04/23 MR#: [id number] Acct: [id number] Name: MARCELINO ARAIZA Rep #:[id number] : [...] of kidney stones that she knows of. [facility] Medical History Acid reflux Alcohol use Anemia [...] 3 current occupational status: employed current occupation: [employer]- Patient Liason sexually active: Yes Smoking [...] Clarity Turbid Urine pH 5.0 Ur Specific [place] 1.030 Urine Protein 500 H Urine Glucose [...] Provider: Ashley Gomez NP Referrals: Ashley Gomez FILTER PRESS OPERATOR, FILTER PRESS OPERATOR-C [Primary Care Provider] - What to do if you have Problems For any increased pain, shortness of breath, bleeding, nausea or vomiting, chestpain, or any unexpected problems, contact your Primary Care Provider. Call [facility] ([phone]) or report to the closest Emergency Room. Call 911 if necessary. 07/04/23 1032 <Electronically signed by Cirilo Garcias DO> Cosigner Signature (if applicable): CC: FILTER PRESS OPERATOR-C Ashley Gomez ~ Signed [facility] Work Phone: 1(499) 883-348803-22-2024 History of Present illness Narrative* Ashley Gomez APRN - ROSALIA - 06/18/2023 9:40 AM EDT Images from [...] decision. - Also discussed potential referral to [facility]. 2. COVID-19 virus infection [...] days. Has Valtrex at home from her marketer and this seems to help. Review of [...] . Waist: 52 in documented in this encounterSVeterans Health AdministrationRcsqxy96-02-5206 Procedure [facility]02-02-2024 Telephone encounter Note* Telephone Encounter - TERE Chung CNP - 04/30/2023 12:37 PM EST Rx sent. Follow up as scheduled. [facility] HospitalDdxyhl92-98-7140 Miscellaneous Notes* Telephone Encounter - TERE Chung [...] prescribe this for her documented in this [facility]02-02-2024 Telephone encounter Note* Telephone Encounter - Merry Hoffman MA - 04/30/2023 12:09 PM EST Prescription Request: Last medication check: 04/28/23 Last physical exam: 11/02/22 Next scheduled appointment: 11/03/23 Last date of refill on this medication I don't see that we prescribe this for her [facility] HospitalQphudv34-12-8567 History of Present illness Narrative* Ashley Gomez APRN - INTERFACE ANALYST - 04/28/2023 10:00 AM EST Images from the original note were not included. 04/28/2023 Marcelino Araiza (: 1975) is a 47 y.o. female , Established patient, here for evaluation of the following chief complaint(s): ER Follow-up ([facility] abd pain, possible UTI-urologist advised her [...] for follow from an ER visit at [facility] on 04/21/23 due to RLQ [...] Thought content normal. Judgment: Judgment normal. Results: [facility] Imaging Services [address] [place] [address] Abdomen/Pelvis W IV Cont ONLY MR#: [id number] Acct: [id number] Name: MARCELINO ARAIZA Rep #: [id number] : 1975 F 47 From: Lamont ross MD PCP: TEJINDER Le Status: REG ER Study: Abdomen/Pelvis W IV Cont ONLY Date of Exam: Exam# [id number] Ordering Dr: Wagner Reynolds MD STUDY: CT [...] CNP 04/28/2023 10:31 AM documented in this [facility]-24-2024 Discharge summary Author Wagner Reynolds [facility] [facility] April 21, 2023 7:11pm Note Date/Time April 21, 2023 4 :20pm [facility] Medical Records Department [address] [place] [address] Emergency Department Summary 04/21/23 MR#: [id number] Acct: [id number] Name: MARCELINO ARAIZA Rep #:[id number] : 1975 47 From: Wagner Reynolds MD PCP: TEJINDER Le Status:REG ER Location: ED HPI HPI - GI History of Present Illness Chief Complaint: Abd Pain Informant: patient Abdominal Pain/Flank Pain Onset: Today and Yesterday Context: Gradual Onset Timing: Continuous Location: [facility] Current Severity: Mild Maximum Severity: Mild [...] #30 ea 09/24/22 [Rx Last Taken Unknown] ddvvpeqw-rosq-eniv 8 mg-folic 400 mcg-K 50 mcg-lutein 300 [...] 3 current occupational status: employed current occupation: [employer]- Patient Liason sexually active: Yes Smoking [...] % (Auto) 60.3 Lymph % (Auto) 29.7 [place] % (Auto) 4.9 Eos % (Auto) 3.7 [...] Clarity Clear Urine pH 6.0 Ur Specific [place] 1.010 Urine Protein Negative Urine Glucose (UA) [...] Signed: Lamont Ram MD at 16:57 EST Reading Location ID and State: [address] [place] [address] , Service support , Discharge Plan Triage Chief Complaint: Abd [...] Ashley Gomez NP Referrals: Ashley Gomez NP, FILTER PRESS OPERATOR-C [Primary Care Provider] - 3-5 Days if [...] your Primary Care Provider. Call [facility] ([phone]) or report to the closest Emergency Room. Call 911 if necessary. 04/21/231910 <Electronically signed by Wagner Reynolds MD> Cosigner Signature (if applicable): CC: FILTER PRESS OPERATORElroyC Ashley Gomez ~ Signed [facility] Work Phone: [phone]) 515-747310-04-2023 Telephone encounter Note* Telephone Encounter - TERE Chung CNP - 12/30/2022 1:42 PM EDT Rx sent. Follow up as scheduled. [id number] Miscellaneous Notes* Telephone Encounter - TERE Chung [...] was new on 10/30/22 documented in this encounterSVeterans Health [id number] Telephone encounter Note* Telephone Encounter - Merry Hoffman MA - 12/30/2022 8:50 AM EDT Prescription Request: Last medication check: none Last physical exam: 10/30/22 Next scheduled appointment: 05/05/23 Last date of refill on this medication we have not prescribed this pt was new on 10/30/22 [facility] [id number] History of Present illness Narrative* TERE Chung [...] any adverse reaction immediately. documented in this encounterSVeterans Health [id number] Telephone encounter Note* Telephone Encounter - TERE Chung CNP - 11/23/2022 10:40 AM EDT Rx sent. Follow up as scheduled. [facility] [id number] Miscellaneous Notes* Telephone Encounter - TERE Chung CNP - 11/23/2022 10:40 AM EDT Rx sent. Follow up as scheduled. * Telephone Encounter - Dione Lemus MA - 11/23/2022 10:22 AM EDT Prescription Request: Last medication check: none Last physical exam: 10/30/22 Next scheduled appointment: 05/05/23 Last date of refill on this medication we have not filled this for her yet. documented in this [place] [id number] Telephone encounter Note* Telephone Encounter - Dione Lemus MA - 11/23/2022 10:22 AM EDT Prescription Request: Last medication check: none Last physical exam: 10/30/22 Next scheduled appointment: 05/05/23 Last date of refill on this medication we have not filled this for her yet. [place] [id number] Telephone encounter Note* Telephone Encounter - Dione Lemus MA - 10/30/2022 8:52 AM EDT Updating HM for colonoscopy 11/07/20 and pap 07/16/22 [id number] Miscellaneous Notes* Telephone Encounter - Dione Lemus MA - 10/30/2022 8:52 AM EDT Updating HM for colonoscopy 11/07/20 and pap 07/16/22 documented in this [place] [address]-04-2023 History of Present illness Narrative* Ashley Gomez APRN - ROSALIA - 10/30/2022 8:00 AM EDT Images from the original note were not included. Patient Marcelino Araiza 46 y.o. female, presents today with Chief Complaint Patient presents with [facility] thigh pain Health Maintenance Hep C--has [...] physical. Previous PCP was Dr. Murphy through [facility] in [place]. Does follow up with other specialists- Dr. Tam (GI in [place]), Sql Server Bi Developer- Dr. Juárez ([place]), Dr. Ashley Fair (Urology in [place]), Dr. Marshall (Pulmonology), Dr. Lim (Dermatology). Past [...] tablet Take by mouth every other day. tbnutalqtuay-hbwx-ibuutopu-folic acid (Centrum) chewable tablet Chew 1 tablet [...] any adverse reaction immediately. documented in this [facility]04-12-2023 NotePap Smear Specimen AdequacyApril 2022 11:12amComment.Satisfactory for evaluation. No endocervical component is identified.[facility] INTERFACED A#[id number] Grady Memorial HospitalComment on above:Satisfactory for evaluation. No endocervical component is identified.07-08-2022 NotePap Smear Specimen AdequacyApril 2022 11:12amComment.Satisfactory for evaluation. No endocervical component is identified.[facility] INTERFACED A#[id number] Grady Memorial HospitalComchildren's hospital of [place] on above:Satisfactory for evaluation. No endocervical component is identified. 07-08-2022 NotePap Smear Specimen AdequacyApril 2022 11:12amComment. Satisfactory for evaluation. No endocervical component is identified.[facility] INTER[facility]ACED A#[id number] Grady Memorial HospitalComment on above:Satisfactory for evaluation. No [...] Nadia Bolanos PA-C 06/15/2022 documented in this encounterGuernsey [facility]03-20-2023 History of Present illness Narrative* Analilia [...] 15, 2022 1:30 PM documented in this encounterGuernsey [facility] Hospital03-20-2023 History of Present illness Narrative* Marcelino [...] 15, 2022 11:29 AM documented in this encounterGuernsey [facility] Hospital03-20-2023 History of Present illness Narrative* Nadia [...] (FLONASE) 50 mcg/actuation nasal spray Use 1 [place] in each nostril once daily. albuterol HFA [...] TABLET - BENZONATATE 100 MG CAPSULE - B-JJPNV-nsagmloj 2. SOB (shortness of breath) - ICD9: [...] and when to seek care sooner. - V-HGBDH-wokvodja - US DVT LOWER RT-normal The patient indicates understanding of these issues and agrees with the plan. Nadia Bolanos PA-C documented in this encounterGuernsey Memorial Hospital02-27-2023 Miscellaneous Notes* Telephone Encounter - Marck Alexander RN - 05/25/2022 12:08 PM EST Pharmacy escripts requesting the following refill: Requested Prescriptions Pending Prescriptions Disp Refills dicyclomine (BENTYL) 10 mg capsule 30 capsule 3 Sig: Take 1 capsule by mouth three times daily as needed (abdominal pain). Please review and advise. Marck Alexander RN documented in this encounterGuernsey Memorial Hospital01-06-2023 Miscellaneous Notes* Telephone Encounter - Marck Alexander RN - 04/03/2022 4:25 PM EST Attempted to call the patient. No answer. Left a detailed message. Marck Alexander RN * Telephone Encounter - aMrck Alexander RN - 04/03/2022 4:24 PM EST [...] still obtain breath testing. documented in this encounterGuernsey Memorial Hospital01-04-2023 History of Present illness Narrative* Cheryl Tucker LPN - 04/01/2022 12:22 PM EST Name: Marcelino Araiza [facility]#: [id number] Date: 04/01/2022 24 HOUR pH PROBE REMOVAL The pH probe was removed by patient and the data was downloaded from the theatrical variety agent for physician review. Cheryl Tucker LPN documented in this encounterGuernsey Memorial Hospital12-22-2022 History of Present illness Narrative* Cheryl Tucker LPN - 03/19/2022 12:01 PM EST Name: Marcelino Araiza [facility]#: [id number] Date: 03/19/2022 24 HOUR pH PROBE INSERTION [...] removal. Cheryl Tucker LPN documented in this encounterGuernsey Memorial Hospital12-20-2022 Miscellaneous Notes* Telephone Encounter - TONNY Perez - 03/17/2022 1:51 PM EST Called patient to reschedule appointment from 03/18 to Apr 24, 2022 at 1000 am.TONNY Perez documented in this encounterGuernsey Memorial Hospital12-15-2022 History of Present illness Narrative* TONNY Perez - 03/12/2022 8:46 AM EST Glucose - SIBO Hydrogen Breath Test March 12, 2022 Referring Physician: Sada Snyder MD Indication Bloating, Abdominal pain, Diarrhea, Milk intolerance Prep: 4 weeks followin hour before: No Smoking Day of test - No gum chewing Pain Level: none Baseline Hydrogen: 1 Methane: 8 Shabbir Taylor, CT Time given: 935am 75 grams / 75 grams Clock time start: 940am 15 minutes Hydrogen: 5 Methane: 9 Stephaniebaltazar Taylor, CT 30 minutes Hydrogen: 3 Methane: 8 Stephaniebaltazar Taylor, CT 45 minutes Hydrogen: 3 Methane: 9 Shabbir Claudia, CT 1 hour Hydrogen: 3 Methane: 8 Shabbir Taylor, CT 1 hour, 15 minutes Hydrogen: 1 Methane: 8 Shabbir Taylor, CT 1 hour, 30 minutes Hydrogen: 2 Methane: 8 Shabbir Taylor, CT Symptoms developed during the study: Flatulence/Gas,achy stomach Patient Results Preliminary Test Results (not given to patient): Pending TONNY Perez Patient must be = Hydrogen >20 or Methane >10 in order to be positive for Bacterial Overgrowth documented in this encounterGuernsey Memorial Hospital12-08-2022 History of Present illness Narrative* Mickey Andres MD - 03/05/2022 9:26 AM EST Rev'd documented in this encounterGuernsey Memorial Hospital12-07-2022 History of Present illness Narrative* TONNY [...] Hydrogen PPM: 2 Methane PPM: 9 Shabbir Claudia, CT Time: 1120am / 120 minutes Hydrogen PPM: 2 Methane PPM: 8 Shabbir Taylor, CT Time: 1140am / 180 minutes Hydrogen PPM: 3 Methane PPM: [address] Symptoms developed during the study period: None Patient Results Preliminary Test Results (not given to patient): Pending TONNY Perez documented in this encounterGuernsey Memorial Hospital11-16-2022 Miscellaneous Notes* Telephone Encounter - Paulina Nunez LPN - 02/11/2022 10:44 AM EST Patient phones requesting refills as follows: Last office visit: Visit date not found Next office visit: Visit date not found Requested Prescriptions Pending Prescriptions Disp Refills omeprazole (PRILOSEC) 40 mg capsule 60 capsule 3 Sig: Take 1 capsule by mouth twice daily. Please review and advise. Pauilna Nunez LPN Please file if appropriate documented in this encounterGuernsey Memorial Hospital10-27-2022 Miscellaneous Notes* Telephone Encounter - Marck Alexander RN - 01/22/2022 9:54 AM EDT GI workup by Dr. Snyder has been faxed per pt request. Marck Alexander RN documented in this encounterGuernsey Memorial Hospital10-10-2022 History of Present illness Narrative* Ashley Owens APRN.INTERFACE ANALYST - 01/05/2022 7:19 PM EDT CC: Patient [...] (FLONASE) 50 mcg/actuation nasal spray Use 1 [place] in each nostril once daily. omeprazole (PRILOSEC) [...] plan. Ashley Owens APRN.ROSALIA documented in this encounterGuernsey Memorial Hospital07-06-2022 Miscellaneous Notes* Telephone Encounter - Keila Gabriel LPN - 10/01/2021 10:35 AM EDT Pt requesting refills on the following medication. Please file if appropriate. documented in this encounterGuernsey Memorial Hospital11-09-2020 History of Present illness Narrative* Marcelino [...] 05, 2020 12:06 PM documented in this encounterGuernsey Memorial HospitalConsult note Author Norma Cardona [facility] July 05, 2023 2:48pm Note Date/Time July 05, 2023 2:48 pm [facility] Medical Records Department [address] [place] [address] Counseling Note - Pharmacy 07/05/23 1446 MR#: [id number] Acct: [id number] Name: MARCELINO ARAIZA Rep #:[id number] : 1975 47 From: Norma Cardona PCP: DUSTY LeC Status:ADM RICKY Y Location: [place] [address] [facility] [facility] has performed discharge medication reconciliation [...] Signature (if applicable): Date CC: ~ Signed [facility] Work Phone: Discharge summary Author Ashley Fair [facility] June 10, 2023 7:55am Note Date/Time June 10, 2023 7:5 3am [facility] Medical Records Department [address] [place] [address] [place] [address] Instructions for Home/Discharge Instructions 06/10/23 0752 MR#: [id number] Acct: [id number] Name: MARCELINO ARAIZA Rep #:[id number] : 1975 47 From: Ashley Sanchez PCP: DUSTY LeC Status:REG [facility] Discharge Instructions Diet Discharge Diet: No [...] Referrals / Follow Up: Ashley Gomez NP, FILTER PRESS OPERATOR-C [Primary Care Provider] - Disposition Disposition (needs filled in before D/C Order can be placed): Home, Self Care 06/10/23 9364<Electronically signed by Ashley Fair MD>Ashley Fair MD CC: FILTER PRESS OPERATOR-C Ashley Gomez; Dr. Santana Crespo MD ~ Signed [facility] Work Phone: Discharge summary Author Ashley Fair [facility] July 05, 2023 1:12pm Note Date/Time July 05, 2023 1:08 pm [facility] Medical Records Department [address] [place] [address] Instructions for Home/Discharge Instructions 07/05/23 1308 MR#: [id number] Acct: [id number] Name: MARCELINO ARAIZA Rep #:[id number] : [...] Referrals / Follow Up: Ashley Gomez NP, FILTER PRESS OPERATOR-C [Primary Care Provider] - Disposition Disposition (needs filled in before D/C Order can be placed): Home, Self Care 07/05/23 1312<Electronically signed by Ashley Fair MD>Ashley Fair MD CC: TEJINDER Gomez ~ Signed [facility] Work Phone: Evaluation noteNo assessment information available [facility] Work Phone: Evaluation note* Diagnosis Left upper quadrant abdominal pain documented in this encounter [facility] note* Diagnosis Onset Date Resolution Status Cough acute Bronchitis resolved Moderate anxiety acute Severe depression acute Vitamin D deficiency acute Establishing care with new doctor, encounter for noneactive [facility] Work Phone: Evaluation note* Diagnosis Burning with urination- Primary Dysuria documented in this encounter [facility] note* Diagnosis Onset Date Resolution Status Moderate [...] both knees noneactive BMI 35.0-35.9,adult noneacti ve [facility] Work Phone: Evaluation note* Diagnosis Left upper quadrant abdominal pain [facility]* Diagnosis Bloating Flatulence, eructation, and gas pain documented in this [facility]* Diagnosis Bloating- Primary Flatulence, eructation, and gas pain documented in this encounter [facility] note* Diagnosis Bloating Flatulence, eructation, and gas pain [facility]* Diagnosis Abdominal pain, unspecified abdominal location documented in this encounter [facility]* Diagnosis Abdominal pain, unspecified abdominal location- Primary documented in this encounter [facility]* Diagnosis Onset Date Resolution Status [...] noneactiv e Screening for breast cancer noneactive [facility] Work Phone: Evaluation note* Diagnosis Onset Date Resolution Status Moderate anxiety acute Severe depression acute Urinary incontinence noneact aurelia Right calf pain noneactive Suspected sleep apnea noneac tive Essential hypertension nonea ctive Bilateral knee pain noneacti ve New onset headache noneactiv e Screening for breast cancer noneactive Moderate anxiety acute Severe depression acute Sleep concern noneactive [facility] Work Phone: Evaluation note* Diagnosis [...] nonea ctive Bilateral knee pain noneacti ve [facility] Work Phone: Evaluation note* Diagnosis Left sided abdominal pain Abdominal pain, unspecified site documented in this encounter [facility]* Diagnosis Onset Date Resolution Status [...] burning noneactive Acute upper respiratory infection acute [facility] Work Phone: Evaluation note* Diagnosis Acute cough- Primary SOB (shortness of breath) Shortness of breath Right leg pain Pain in limb documented in this encounter [facility]* Diagnosis Onset Date Resolution Status [...] for routine gynecological examination noneactive Cough acute [facility] Work Phone: Evaluation note* Diagnosis [...] bowel syndrome) chronic Nausea and vomiting chronic [facility] Work Phone: Evaluation note* Diagnosis Onset Date Resolution Status Frequent urinary tract infections acute Vaginal burning noneactive Encounter for routine gynecological examination noneactive Cough acute Bloating chronic Chronic diarrhea chronic IBS (irritable bowel syndrome) chronic Nausea and vomiting chronic Frequent urinary tract infections acute LGSIL on Pap smear of cervix acute Postmenopausal state acute [facility] Work Phone: Evaluation note* Diagnosis Onset Date Resolution Status Encounter for routine gynecological examination noneactive Cough acute Bloating chronic Chronic diarrhea chronic IBS (irritable bowel syndrome) chronic Nausea and vomiting chronic Frequent urinary tract infections acute LGSIL on Pap smear of cervix acute Postmenopausal state acute [facility] Work Phone: Evaluation note* Diagnosis [...] vaccination Need for prophylactic vaccination with combined juucxtbtfi-sghcfcf-jdxdidtca (DTP) vaccine Screening for lipoid disorders Screening for diabetes mellitus [facility]* Diagnosis Irritable bowel syndrome without diarrhea [facility]* Diagnosis Primary hypertension Unspecified essential hypertension [facility]* Diagnosis Injury due to fall, initial encounter- Primary Left knee injury, initial encounter Flu vaccine need documented [facility] encounter [facility]* Diagnosis Injury due to fall, initial encounter Left knee injury, initial encounter documented in this encounter [facility]* Diagnosis Depressive disorder Depressive disorder, not elsewhere classified Anxiety Anxiety state, unspecified [facility]* Diagnosis Right leg pain Pain in limb documented in this encounter [facility]* Diagnosis Irritable bowel syndrome without diarrhea- Primary Irritable bowel syndrome without diarrhea documented in this encounter [facility]* Diagnosis Right lower quadrant abdominal [...] specified viral diseases documented [facility] this encounter [facility]* Diagnosis Irritable bowel syndrome with diarrhea Irritable bowel syndrome documented in this encounter [facility]* Diagnosis Class 2 obesity due to excess calories without serious comorbidity with body mass index (BMI) of 36.0 to 36.9 in adult- Primary documented in this encounter [facility]* Diagnosis Onset Date Resolution Status IBS (irritable bowel syndrome) chronic [facility] Work Phone: evaluation note* Diagnosis Class 2 obesity due to excess calories without serious comorbidity with body mass index (BMI) of 37.0 to 37.9 in adult- Primary COVID-19 virus infection Herpes zoster without complication documented in this encounter [facility] note* Diagnosis Onset Date Resolution Status IBS (irritable bowel syndrome) chronic Gross hematuria acute Lesion of bladder acute [facility] Work Phone: Evaluation note* Diagnosis Gross hematuria- Primary Left flank pain Abdominal pain, unspecified site documented in this encounter [facility] note* Diagnosis Gross hematuria documented in this encounter [facility] note* Diagnosis Screening for genitourinary condition Screening for other and unspecified genitourinary condition documented in this encounter [facility] note* Diagnosis Left lower quadrant abdominal pain- Primary Hematuria, unspecified type documented in this encounter [facility] note* Diagnosis Left lower quadrant abdominal pain- Primary Gross hematuria documented in this encounter [facility]* Diagnosis Onset Date Resolution Status IBS (irritable bowel syndrome) chronic Gross hematuria resolved Lesion of bladder resolved LGSIL on Pap smear of cervix acute Encounter for routine gynecological examination noneactive Hematuria noneactive [facility] Work Phone: Evaluation note* Diagnosis Depressive disorder- Primary Depressive disorder, not elsewhere classified Anxiety Anxiety state, unspecified Gross hematuria Left lower quadrant abdominal pain Osteoarthritis of both knees, unspecified osteoarthritis type documented in this encounter [facility] note* Diagnosis Depressive disorder Depressive disorder, not elsewhere classified Anxiety Anxiety state, unspecified documented in this encounter [facility]* Diagnosis Left flank pain- Primary Abdominal pain, unspecified site Hematuria, unspecified type documented in this encounter [facility] note* Diagnosis Other hydronephrosis- Primary Gross hematuria Left lower quadrant abdominal pain documented in this encounter [facility] note* Diagnosis Left flank pain Abdominal pain, unspecified site Hematuria, unspecified type documented in this encounter [facility] note* Diagnosis Well adult exam- Primary Routine [...] vaccine [facility]* Diagnosis Gross hematuria Left lower quadrant abdominal pain Other hydronephrosis documented [facility] this encounter [facility]* Diagnosis Acute cough SOB (shortness of breath) Shortness of breath documented in this encounter [facility] note* Diagnosis Cough Suspected COVID-19 virus infection documented in this encounter [facility] note* Diagnosis Inflammatory polyarthropathy (HCC)- Primary Unspecified inflammatory polyarthropathy documented in this encounter [facility] note* Diagnosis Other fatigue- Primary Depressive disorder Depressive disorder, not elsewhere classified Anxiety Anxiety state, unspecified documented in this encounter [facility]* Diagnosis Other fatigue- Primary Depressive disorder Depressive disorder, not elsewhere classified Anxiety Anxiety state, unspecified documented [facility] this encounter [facility]* Diagnosis Osteoarthritis of both knees, unspecified osteoarthritis type documented in this encounter [facility]* Diagnosis Mild intermittent asthma without complication documented in this encounter [facility]* Diagnosis Vitamin D deficiency- Primary Primary [...] LDL cholesterol level [facility]* Diagnosis Irritable bowel syndrome with diarrhea Irritable bowel syndrome [facility]* Diagnosis Neuropathy of right foot- Primary Depressive disorder Depressive disorder, not elsewhere classified Anxiety Anxiety state, unspecified Rash and nonspecific skin eruption Rash and other nonspecific skin eruption documented in this encounter [facility] Diagnosis Depressive disorder Depressive disorder, not elsewhere classified Anxiety Anxiety state, unspecified [facility] Diagnosis Hyperlipidemia, unspecified Family history of ischemic heart disease and other diseases of the circulatory system Obesity, class 2 Other obesity due to excess calories Body mass index (BMI) 35.0-35.9, adult documented in this encounter [facility] Work Phone: Evaluation note* Diagnosis Mixed hyperlipidemia- Primary [facility] Additional Instructions Your labs, CAT scan and urine were all normal. Tylenol Motrin for pain. Follow- up if not improving.[facility] Work Phone: Hospital Discharge instructions Additional Instructions Implant Used?: [facility] Work Phone: Hospital Discharge instructions Additional Instructions [facility]* Attachments The following attachments cannot be sent through Care Everywhere. * Nocturnal (Nighttime) Leg Cramps (German) * Tdap Vaccine (German) [facility] Attachments The following attachments cannot be sent through Care Everywhere. * Phentermine, ADULT (German) [facility]* Attachments The following attachments cannot be sent through Care Everywhere. * Semaglutide, ADULT (German) [facility] Attachments The following attachments cannot be sent through Care Everywhere. * Pneumococcal Conjugate Vaccine (20-Valent), ADULT (German) [facility] Diagnostic Procedure Only (Urgent) - Closed Specialty Diagnoses / Procedures Referred By Contac t Referred To Contact US IMAGING Diagnoses Right leg pain Procedures US DVT LOWER RT DUP-SCAN XTR VEINS UNILATERAL/LIMITED STUDY Nadia Bolanos PA-C [address] [place] [address] Us Imaging Referral ID Status Reason Start Date Expiration Date V isits Requested Visits Authorized [id number] Closed Auto-Generate d Referral 06/15/2022 07/15/2023 1 1 [facility] for referral (narrative)* Diagnostic Procedure Only (Urgent) - Closed Specialty Diagnoses / Procedures Referred By Contac t Referred To Contact US IMAGING Diagnoses Right leg pain Procedures US DVT LOWER RT DUP-SCAN XTR VEINS UNILATERAL/LIMITED STUDY Nadia Bolanos PA-C [address] [place] [address] [place] [address] Referral ID Status Reason Start Date Expiration Date V isits Requested Visits Authorized [id number] Closed Auto-Generate d Referral 06/15/2022 07/15/2023 1 1 [facility] for referral (narrative)* Consultation (Routine) - Pending Review Specialty Diagnoses / Procedures Referred By Contac t Referred To Contact Urology Diagnoses Gross hematuria Left lower quadrant abdominal pain Procedures [place] OFFICE/OUTPATIENT NEW HIGH MDM 60 MINUTES Ashley Gomez APN - INTERFACE ANALYST [address] [place] [address] [place] [address] Cornell Holden MD [facility] [address] [place] [address] Referral ID Status Reason Start Date Expiration Date Visits Requested Visits Authorized [id number] Pending Review Specialty Services Required 08/13/2023 08/12/2024 1 1 [facility] for referral (narrative)* Consultation (Routine) - Pending Review Specialty Diagnoses / Procedures Referred By Contac t Referred To Contact Urology Diagnoses Left flank pain Hematuria, unspecified type Procedures [place] OFFICE/OUTPATIENT NEW HIGH MDM 60 MINUTES Nahomi Vides DO [address] [place] [address] [facility] [address] [place] [address] [place] [address] Referral ID Status Reason Start Date Expiration Date Visits Requested Visits Authorized [id number] Pending Review Specialty Services Required 10/18/2023 10/17/2024 1 1 [facility] for referral (narrative)No reason for referral [facility] Work [facility]: Reason for visit Narrative* Diagnostic Procedure Only (Routine) - Closed Specialty Diagnoses / Procedures Referred By Raul t Referred To Contact Radiology / [facility] Diagnoses room 1 Procedures RADIOLOGIC EXAM CHEST 2 VIEWS XR CHEST Self [facility] [address] [place] [address] Referral ID Status Reason Start Date Expiration Date Visits Re quested Visits Authorized [id number] Closed 06/15/2022 03/28/2023 1 1 [facility] for visit Narrative* Imaging (Routine) - Pending Review Specialty Diagnoses / Procedures Referred By Raul t Referred To Contact Radiology Diagnoses Hyperlipidemia, unspecified Family history of ischemic heart disease and other diseases of the circulatory system Obesity, class 2 Other obesity due to excess calories Body mass index (BMI) 35.0-35.9, adult Procedures CT cardiac scoring wo IV contrast Ashley Gomez S, APN-INTERFACE ANALYST [address] 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 NPP E [...] SHORTNESS OF BREATH SOB, COugh SICK Annual (DATA REVIEWER) Shortness of breath INT LABS Cough Reason [...] SHORTNESS OF BREATH SOB, COugh SICK Annual (DATA REVIEWER) Shortness of breath INT LABS Cough Consult [...] SHORTNESS OF BREATH SOB, COugh SICK Annual (DATA REVIEWER) Shortness of breath INT LABS Cough Consult [...] SHORTNESS OF BREATH SOB, COugh SICK Annual (DATA REVIEWER) Shortness of breath INT LABS Cough Consult [...] FU E-ORDER Cysto,Biopsy,Fulguration,Bladder Tu PREOP HEMATURIA Annual (DATA REVIEWER) Reason for Visit IBS (irritable bowel syndrome) Gross hematuria Lesion of bladder LGSIL on Pap smear of cervix Encounter for routine gynecological examination Hematuria Chief Complaint Admit Date Follow up July 07, 2024 10: 24am Annual (DATA REVIEWER) August 30, 2024 9:48a m PELVIC PAIN [...] up July 07, 2024 10: 24am Annual (DATA REVIEWER) August 30, 2024 9:48a m Reason for Visit Admit Date Gastroparesis July 07, 2024 10: 24am IBS (irritable bowel syndrome) June 10:24am Abdominal pain July 07, 2024 10: 24am Encounter for routine gynecological exam ination August 30, 2024 9:48am Chief Complaint Admit Date Follow up July 07, 2024 10: 24am Annual (DATA REVIEWER) August 30, 2024 9:48a m PELVIC PAIN September 01, 2024 12:52 pm XRAY OF FINGERS October 09, 2024 8:35 pm Chief Complaint Admit Date Follow up July 07, 2024 10: 24am Annual (DATA REVIEWER) August 30, 2024 9:48a m PELVIC PAIN September 01, 2024 12:52 pm XRAY OF FINGERS October 09, 2024 8:35 pm 3 M FU October 18, 2024 9:50 am Chief Complaint Admit Date Follow up July 07, 2024 10: 24am Annual (DATA REVIEWER) August 30, 2024 9:48a m PELVIC PAIN [...] Abdominal pain October 18, 2024 9:50 am Chief Complaint Admit Date Annual (DATA REVIEWER) August 30, 2024 9:48a m PELVIC PAIN September 01, 2024 12:52 pm XRAY OF FINGERS October 09, 2024 8:35 pm 3 M FU October 18, 2024 9:50 am PELVIC PAIN, OVARIAN CYST October 18 11:50am Reason for Visit Admit Date ASCUS of cervix with negative high risk [...] July 28, 2020 8: 39am Power of Bi Lead No July 28, 2020 8:39am Documents on File Type Date Recorded Patient Grain Miller Helper Expl anation Advance Directive(s) 11/07/2020 6:26 AM Advance Directive Response Recorded Date/ Time Living Will No October 31, 2021 1:50pm Power of Bi Lead No October 31 1:50pm Advance Directive Response Recorded Date/ Time Living Will No October 31, 2021 12:50pm Power of Bi Lead No October 31 12:50pm Advance Directive Response Recorded Date/ Time Living Will No February 19 6:37pm Power of Bi Lead No February 19, 2022 6:37pm Advance Directive Response Recorded Date/ Time Living Will No February 19 7:37pm Power of Bi Lead No February 19, 2022 7:37pm Advance Directive Response Recorded Date/ Time Living Will No June 15, 2022 11:52pm Power of Bi Lead No June 15 11:52pm Advance Directive Response Recorded Date/ Time Living Will No April 21 4:17pm Power of Bi Lead No April 21, 2023 4:17pm Advance Directive Response Recorded Date/ Time Living Will No June 03, 2023 9:30am Power of Bi Lead No June 02 9:30am Advance Directive Response Recorded Date/ Time Living Will No July 04, 2023 7:36am Power of Bi Lead No July 03 7:36am Advance Directive Response Recorded Date/ Time Living Will No July 04, 2023 11:39am Power of Bi Lead No July 03 11:39am Documents on File Type Date Recorded Patient Grain Miller Helper Expl anation Advance Directives and Livin g Will 11/10/2023 9:51 AM Documents on File Type Date Recorded Patient Grain Miller Helper Expl anation Advance Directives and Livin g Will 11/10/2023 9:51 AM Reason for Referral Specialty Diagnoses / Procedures Referred By Raul beltran Referred To Contact Radiology Diagnoses Irritable bowel syndrome without diarrhea Procedures NM gastric emptying solid Friend, Tanna Tan [address], [address] [place] [address] Referral ID Status Reason Start Date Expiration Date Visits Re quested Visits Authorized [id number] Closed 11/11/2022 05/10/2023 1 1 Specialty Diagnoses / Procedures Referred By Contac t Referred To Contact CT IMAGING Diagnoses Gross hematuria Procedures CT UROGRAM WO/W IVCON CT ABD & PELVIS W/WO CONTRST 1+ BODY REGNS Maria Elena Carvajal APRN.INTERFACE ANALYST [address] [place] [address] [place] [address] Referral ID Status Reason Start Date Expiration Date Visits Requested Visits Authorized [id number] Authorized Auto-Generat ed Referral 07/08/2023 08/06/2024 1 1 Specialty Diagnoses / Procedures Referred By Contac t Referred To Contact Radiology Diagnoses Gross hematuria Left lower quadrant abdominal pain Other hydronephrosis Procedures NM kidney flow/function w/wo Christa Cameron APRN - INTERFACE ANALYST [address] [place] [address] Referral ID Status Reason Start Date Expiration Date V isits Requested Visits Authorized [id number] Pending Review 10/27/2023 10/26/2024 3 3 Referral ID Status Reason Start Date Expiration Date V isits Requested Visits Authorized [id number] Authorized 10/27/2023 10/26/2024 3 3 Summary Purpose [...] or prosecute any alcohol or drug abuse patient.[facility] the event this information is protected by the Federal Confidentiality of Alcohol and Drug Abuse Patient Records regulations: The Federal rules restrict any use of the information to criminally investigate or prosecute any alcohol or drug abuse patient.[facility] HospitalIn the event this information is protected by the Federal Confidentiality of Alcohol and Drug Abuse Patient Records regulations: The Federal rules restrict any use of the information to criminally investigate or prosecute any alcohol or drug abuse patient.[facility]In the event this information is protected by the Federal Confidentiality of Alcohol and Drug Abuse Patient Records regulations: The Federal rules restrict any use of the information to criminally investigate or prosecute any alcohol or drug abuse patient.[facility] HospitalIn the event this information is protected by the Federal Confidentiality of Alcohol and Drug Abuse Patient Records regulations: The Federal rules restrict any use of the information to criminally investigate or prosecute any alcohol or drug abuse patient.[facility] HospitalIn the event this information is protected by the Federal Confidentiality of Alcohol and Drug Abuse Patient Records regulations: The Federal rules restrict any use of the information to criminally investigate or prosecute any alcohol or drug abuse patient.[facility] HospitalIn the event this information is protected by the Federal Confidentiality of Alcohol and Drug Abuse Patient Records regulations: The Federal rules restrict any use of the information to criminally investigate or prosecute any alcohol or drug abuse patient.[facility] HospitalIn the event this information is protected by the Federal Confidentiality of Alcohol and Drug Abuse Patient Records regulations: The Federal rules restrict any use of the information to criminally investigate or prosecute any alcohol or drug abuse patient.[facility] HospitalIn the event this information is protected by the Federal Confidentiality of Alcohol and Drug Abuse Patient Records regulations: The Federal rules restrict any use of the information to criminally investigate or prosecute any alcohol or drug abuse patient.[facility] HospitalIn the event this information is protected by the Federal Confidentiality of Alcohol and Drug Abuse Patient Records regulations: The Federal rules restrict any use of the information to criminally investigate or prosecute any alcohol or drug abuse patient.[facility] HospitalIn the event this information is protected by the Federal Confidentiality of Alcohol and Drug Abuse Patient Records regulations: The Federal rules restrict any use of the information to criminally investigate or prosecute any alcohol or drug abuse patient.[facility] HospitalIn the event this information is protected by the Federal Confidentiality of Alcohol and Drug Abuse Patient Records regulations: The Federal rules restrict any use of the information to criminally investigate or prosecute any alcohol or drug abuse patient.[facility] HospitalIn the event this information is protected by the Federal Confidentiality of Alcohol and Drug Abuse Patient Records regulations: The Federal rules restrict any use of the information to criminally investigate or prosecute any alcohol or drug abuse patient.[facility] HospitalIn the event this information is protected by the Federal Confidentiality of Alcohol and Drug Abuse Patient Records regulations: The Federal rules restrict any use of the information to criminally investigate or prosecute any alcohol or drug abuse patient.[facility] HospitalIn the event this information is protected by the Federal Confidentiality of Alcohol and Drug Abuse Patient Records regulations: The Federal rules restrict any use of the information to criminally investigate or prosecute any alcohol or drug abuse patient.[facility] the event this information is protected by the Federal Confidentiality of Alcohol and Drug Abuse Patient Records regulations: The Federal rules restrict any use of the information to criminally investigate or prosecute any alcohol or drug abuse patient.[facility] HospitalIn the event this information is protected by the Federal Confidentiality of Alcohol and Drug Abuse Patient Records regulations: The Federal rules restrict any use of the information to criminally investigate or prosecute any alcohol or drug abuse patient.[facility] HospitalIn the event this information is protected by the Federal Confidentiality of Alcohol and Drug Abuse Patient Records regulations: The Federal rules restrict any use of the information to criminally investigate or prosecute any alcohol or drug abuse patient.[facility] HospitalIn the event this information is protected by the Federal Confidentiality of Alcohol and Drug Abuse Patient Records regulations: The Federal rules restrict any use of the information to criminally investigate or prosecute any alcohol or drug abuse patient.[facility] HospitalIn the event this information is protected by the Federal Confidentiality of Alcohol and Drug Abuse Patient Records regulations: The Federal rules restrict any use of the information to criminally investigate or prosecute any alcohol or drug abuse patient.[facility] HospitalIn the event this information is protected by the Federal Confidentiality of Alcohol and Drug Abuse Patient Records regulations: The Federal rules restrict any use of the information to criminally investigate or prosecute any alcohol or drug abuse patient.[facility] HospitalIn the event this information is protected by the Federal Confidentiality of Alcohol and Drug Abuse Patient Records regulations: The Federal rules restrict any use of the information to criminally investigate or prosecute any alcohol or drug abuse patient.[facility] HospitalIn the event this information is protected by the Federal Confidentiality of Alcohol and Drug Abuse Patient Records regulations: The Federal rules restrict any use of the information to criminally investigate or prosecute any alcohol or drug abuse patient.[facility] Reason for Visit (unrecogniz ed section and content) Reason Comments Breath Hydrogen Test Specialty Diagnoses / Procedures Referred By Contac t Referred To Contact [facility] Diagnoses Bloating Procedures BREATH TEST GLUCOSE BREATH HYDROGEN/METHANE TEST Sada Snyder MD [address] [facility] [place] [address] [address] Referral ID Status Reason Start Date Expiration Date V isits Requested Visits Authorized [id number] Closed Auto-Generate d Referral 01/30/2022 01/29/2023 1 1 Reason Onset Date Comments Refill Request 10/01/2021 Reason Comments UTI Burning with urinati on, lower abd pain x2 days Reason Onset Date Comments Refill Request 02/11/2022 Specialty Diagnoses / Procedures Referred By Contac t Referred To Contact GASTROENTEROLOGY Diagnoses Bloating Procedures BREATH TEST LACTOSE BREATH HYDROGEN/METHANE TEST Sada Snyder MD [address] [facility] [place] [address] [place] [address] Referral ID Status Reason Start Date Expiration Date V isits Requested Visits Authorized [id number] Closed Auto-Generate d Referral 02/18/2022 03/28/2022 1 1 Reason Comments Gas Reason Comments Patient Question Patient Update Reason Onset Date Comments Procedure 03/19/2022 Specialty Diagnoses / Procedures Referred By Contac t Referred To Contact [facility] Diagnoses Abdominal pain, unspecified abdominal location Procedures PH IMPEDANCE INSERT OFF MEDS ESOPHGL FUNCJ G-ESOP RFLX IMPD ELTRD ANTONIONG Sada Snyder MD [address] [facility] [place] [address] [address] Referral ID Status Reason Start Date Expiration Date V isits Requested Visits Authorized [id number] Closed Auto-Generate d Referral 01/30/2022 01/29/2023 1 [...] Friend, Tanna [address], [address] [place] [address] Referral ID Status Reason Start Date Expiration Date Visits Re quested Visits Authorized [id number] Closed 11/11/2022 05/10/2023 1 1 Reason Onset Date Comments Med Refill 11/22/2022 Reason Comments Fall Knee Pain Left knee pain Reason Onset Date Comments Med Refill 12/30/2022 Reason Comments Radiology US Specialty Diagnoses / Procedures Referred By aRul beltran Referred To Contact US IMAGING Diagnoses Right leg pain Procedures US DVT LOWER RT DUP-SCAN XTR VEINS UNILATERAL/LIMITED STUDY Nadia Bolanos PA-C [address] [place] [address] [place] [address] Referral ID Status Reason Start Date Expiration Date V isits Requested Visits Authorized [id number] Closed Auto-Generate d Referral 06/15/2022 07/15/2023 1 1 Reason Comments ER Follow-up [facility] abd pain, possible UTI-urologist advised her [...] ABD & PELVIS W/WO CONTRST 1+ BODY Maria Elena Echavarria, TERE.INTERFACE ANALYST [address] [place] [address] [facility] [place] [address] Referral ID Status Reason Start Date Expiration Date V isits Requested Visits Authorized [id number] Closed Auto-Generate d Referral 07/08/2023 08/06/2024 1 1 Reason Comments Blood In Urine Reason Comments ER Follow-up Went to [facility], was bleeding badly from her urethra, [...] was taken out on Wednesday. Went to [facility] to get a second opinion, had [...] Urine Specialty Diagnoses / Procedures Referred By Raul beltran Referred To Contact Urology Diagnoses Gross hematuria Left lower quadrant abdominal pain Procedures [place] OFFICE/OUTPATIENT NEW HIGH MDM 60 MINUTES Ashley Gomez S, APN - INTERFACE ANALYST [address] [place] [address] [place] [address] Cornell Holden MD [address] [place] [address] [address] [place] [address] Referral ID Status Reason Start Date Expiration Date V isits Requested Visits Authorized [id number] Closed Specialty Services Required 08/13/2023 08/12/2024 1 1 Reason Comments Nephrolithiasis Specialty Diagnoses / Procedures Referred By Contac t Referred To Contact Urology Diagnoses Left flank pain Hematuria, unspecified type Procedures [place] OFFICE/OUTPATIENT NEW HIGH MDM 60 MINUTES Nahomi Vides DO [address] [place] [address] [address] [facility] [address] [place] [address] Referral ID Status Reason Start Date Expiration Date V isits Requested Visits Authorized [id number] Closed Specialty Services Required 10/18/2023 10/17/2024 1 1 Reason Onset Date Comments Other 10/27/2023 Lasix renal scan Reason Comments Annual Exam Blood Work Health Maintenance PNA vaccine-discuss with [id number] COVID vaccine-only had 3, doesn't want a 4th Specialty Diagnoses / Procedures Referred By Contac t Referred To Contact Radiology Diagnoses Gross hematuria Left lower quadrant abdominal pain Other hydronephrosis Procedures NM kidney flow/function w/wo Christa Cameron, APN - INTERFACE ANALYST [address] [place] [address] Referral ID Status Reason Start Date Expiration Date V isits Requested Visits Authorized [id number] Authorized 10/27/2023 10/26/2024 3 3 Reason Comments [...] Health Maintenance Mammo- had done at [facility] Reason Onset Date Comments Med Refill 05/26/2024 Reason Comments Peripheral Neuropathy Reason Onset Date Comments Med Refill 01/16/2025 Care Teams (unrecognized sec tion and content) Membership Sales Advisor Relationship Specialty Start Date End Date Ashok Siu MD PCP - General Family Practice 03/21/17 Membership Sales Advisor Relationship Specialty Start Date End Date Ashok Siu MD PCP - General Family Medicine 03/21/17 Membership Sales Advisor Relationship Specialty Start Date End Date Ashok Siu MD PCP - General Family Medicine 03/21/17 Membership Sales Advisor Relationship Specialty Start Date End Date Ashok Siu MD PCP - General Family Medicine 03/21/17 Membership Sales Advisor Relationship Specialty Start Date End Date Ashok Siu MD PCP - General Family Medicine 03/21/17 Membership Sales Advisor Relationship Specialty Start Date End Date Ashok Siu MD PCP - General Family Medicine 03/21/17 Membership Sales Advisor Relationship Specialty Start Date End Date Ashok Siu MD PCP - General Family Medicine 03/21/17 Membership Sales Advisor Relationship Specialty Start Date End Date Ashok Siu MD PCP - General Family Medicine 03/21/17 Membership Sales Advisor Relationship Specialty Start Date End Date Ashok Siu MD PCP - General Family Medicine 03/21/17 Team Status: Active Member Role Status Dates Dr. Ashok Siu MD Family Provider Active Dr. Geeta Hickman MD Primary Care Provider Active Team Status: Inactive Member Role Status Dates Dr. Geeta Hickman MD Primary Care Provider, Referri ng Provider Active Leila ERIC, PA Attending Provider Active Team Status: [...] Dr. Danial Marshall MD Attending Provider Active Membership Sales Advisor Relationship Specialty Start Date End Date Ashok Siu MD PCP - General Family Medicine 03/21/17 Team Status: Inactive Member Role Status Dates Dr. Geeta Hickman MD Primary Care Provider, Referri ng Provider Active Jacqueline Martinez FILTER PRESS OPERATOR, FILTER PRESS OPERATOR-C Attending Provider Active Team Status: Inactive Member Role Status Dates Dr. Geeta Hickman MD Primary Care Provider, Referri ng Provider Active [employer] ERIC, [place] Attending Provider Active Team Status: Inactive Member Role Status Dates Dr. Geeta Hickman MD Primary Care Provider Active Jacqueline Martinez FILTER PRESS OPERATOR, FILTER PRESS OPERATOR-C Attending Provider Active Team Status: Active Member Role Status Dates Dr. Geeta Hickman MD Primary Care Provider Active Dr. Ashley Fair MD Attending Provider Active Team Status: Inactive Member Role Status Dates Dr. Geeat Hickman MD Primary Care Provider Active Dr. Ashley Fair MD Attending Provider Active Membership Sales Advisor Relationship Specialty Start Date End Date Geeta Hickman MD NO FORWARDING ADDRESS PCP - General Internal Medicine 06/15/22 Membership Sales Advisor Relationship Specialty Start Date End Date Geeta Hickman MD NO FORWARDING ADDRESS PCP - General Internal Medicine 06/15/22 Team Status: Inactive Member Role Status Dates Dr. Geeta Hickman MD Primary Care Provider Active Nadia Bogner FILTER PRESS OPERATOR, LAWN MOWER SHARPENER Attending Provider, Referri ng Provider Active Team Status: Inactive Member Role Status Dates Dr. Geeta Hickman MD Primary Care Provider Active Dr. Landon Doe MD Emergency Provider Active Team Status: Inactive Member Role Status Dates Dr. Geeta Hickman MD Primary Care Provider, Referri ng Provider Active Sveta Cline FILTER PRESS OPERATOR, FILTER PRESS OPERATOR-C Attending Provider Active Team Status: Inactive Member Role Status Dates Dr. Geeta Hickman MD Primary Care Provider Active Jacqueline Martinez FILTER PRESS OPERATOR, FILTER PRESS OPERATOR-C Attending Provider, Referring Provider Active Team Status: Active Member Role Status Dates Dr. Geeta Hickman MD Primary Care Provider Active Sveta Cline FILTER PRESS OPERATOR, FILTER PRESS OPERATOR-C Attending Provider, Referrin g Provider Active Team Status: Active Member Role Status Dates Dr. Geeta Hickman MD Primary Care Provider Active Sveta Cline FILTER PRESS OPERATOR, FILTER PRESS OPERATOR-C Attending Provider Active Team Status: Inactive Member Role Status Dates Dr. Geeta Hickman MD Primary Care Provider, Referri ng Provider Active Roseann Michel FILTER PRESS OPERATOR, FILTER PRESS OPERATOR-C Attending Provider Active Team Status: Inactive Member Role Status Dates Dr. Geeta Hickman MD Primary Care Provider Active Sveta Cline FILTER PRESS OPERATOR, FILTER PRESS OPERATOR-C Attending Provider, Referrin g Provider Active Team Status: Inactive Member Role Status Dates Dr. Geeta Hickman MD Primary Care Provider Active Sveta Cline FILTER PRESS OPERATOR, FILTER PRESS OPERATOR-C Attending Provider Active Team Status: Inactive Member [...] DO Attending Provider, Refe rring Provider Active Membership Sales Advisor Relationship Specialty Start Date End Date Ashok Siu MD PCP - General Family Medicine 03/21/17 06/14/22 Geeta Hickman MD NO FORWARDING ADDRESS PCP - General Internal Medicine 06/15/22 Membership Sales Advisor Relationship Specialty Start Date End Date Naga Hurt MD [address] [place] [address] PCP - General Family Medicine 10/29/22 Membership Sales Advisor Relationship Specialty Start Date End Date Naga Hurt MD [address] [place] [address] PCP - General Family Medicine 10/29/22 Membership Sales Advisor Relationship Specialty Start Date End Date Ashley Gomez APN - INTERFACE ANALYST [address] [place] [address] PCP - General Nurse Practitioner Family 11/11/22 Membership Sales Advisor Relationship Specialty Start Date End Date Ashley Gomez, APN - INTERFACE ANALYST [address] [place] [address] PCP - General Nurse Practitioner Family 11/11/22 Membership Sales Advisor Relationship Specialty Start Date End Date Ashley Gomez APN - INTERFACE ANALYST [address] [place] [address] PCP - General Nurse Practitioner Family 11/11/22 Membership Sales Advisor Relationship Specialty Start Date End Date Naga Hurt MD [address] [place] [address] PCP - General Family Medicine 12/15/22 Membership Sales Advisor Relationship Specialty Start Date End Date Naga Hurt MD [address] [place] [address] PCP - General Family Medicine 12/15/22 Membership Sales Advisor Relationship Specialty Start Date End Date N[facility] [place] [id number] PCP - General Family Medicine 12/15/22 Membership Sales Advisor Relationship Specialty Start Date End Date Geeta Hickman MD NO FORWARDING ADDRESS PCP - General Internal Medicine 06/15/22 Membership Sales Advisor Relationship Specialty Start Date End Date Ashley Gomez, APN - INTERFACE ANALYST [address] [facility] [place] [id number] PCP - General Nurse Practitioner [facility] 11/11/2211/27 Naga Hurt MD [address] [place] [id number] PCP - General Family Medicine 12/15/22 Membership Sales Advisor Relationship Specialty Start Date End Date Naga Hurt MD [address] [place], [place] [address] [id number] PCP - General Family Medicine 12/15/22 Team Status: Active Member Role Status Dates Dr. Ashok Siu MD Family Provider Active Ashley Gomez FILTER PRESS OPERATOR, FILTER PRESS OPERATOR-C Primary Care Provider Active Team Status: Inactive Member Role Status Dates Ashley Gomez FILTER PRESS OPERATOR, FILTER PRESS OPERATOR-C Primary Care Provider Active Dr. Wagner Reynolds MD Emergency Provider Active Team Status: Inactive Member Role Status Dates Ashley Gomez FILTER PRESS OPERATOR, FILTER PRESS OPERATOR-C Primary Care Provider Active Dr. Edgar Coffey MD Attending Provider Activ e Membership Sales Advisor Relationship Specialty Start Date End Date Naga Hurt MD [address] [place] [address] [place] [address] PCP - General Family Medicine 12/15/22 Membership Sales Advisor Relationship Specialty Start Date End Date Naga Hurt MD [address] [place] [id number] PCP - General Family Medicine 12/15/22 Membership Sales Advisor Relationship Specialty Start Date End Date Naga Hurt MD [address] [place] [id number] PCP - General Family Medicine 12/15/22 Team Status: Inactive Member Role Status Dates Dr. Geeta Hickman MD Referring Provider Active Dr. Tanna Tam , Attending Provider Active Ashley Gomez FILTER PRESS OPERATOR, FILTER PRESS OPERATOR-C Primary Care Provider Active Team Status: Inactive Member Role Status Dates Ashley Gomez FILTER PRESS OPERATOR, FILTER PRESS OPERATOR-C Primary Care Provid er, Attending Provider, Referring Provider Active Team Status: Inactive Member Role Status Alec Gomez FILTER PRESS OPERATOR, FILTER PRESS OPERATOR-C Primary Care Provider Active Dr. Wagner Reynolds MD Attending Provider, Emergency Pro vider Active Team Status: Active Member Role Status Alec Gomez FILTER PRESS OPERATOR, FILTER PRESS OPERATOR-C Primary Care Provider Active Dr. Tanna Tam , Attending Provider, Referring Provider Active Team Status: Inactive Member Role Status Alec Gomez FILTER PRESS OPERATOR, FILTER PRESS OPERATOR-C Primary Care Provider Active Dr. Tanna Tam , Attending Provider, Referring Provider Active Team Status: Inactive Member Role Status Alec Gomez NP, FILTER PRESS OPERATOR-C Primary Care Provider Active Dr. Ashley Fair MD Attending Provider, Referring P jose Active Dr. Santana Crespo MD Other Provider Active Membership Sales Advisor Relationship Specialty Start Date End Date Naga Hurt MD [address] [place] [address] PCP - General Family Medicine 12/15/22 Team Status: Active Member Role Status Alec Gomez NP, FILTER PRESS OPERATOR-C Primary Care Provider Active Dr. Cirilo Garcias , DO Emergency Provider Active Dr. Ashley Fair MD Admit Provider, Attending Provi mikel Active Team Status: Inactive Member Role Status Alec Gomez NP, FILTER PRESS OPERATOR-C Primary Care Provider Active Dr. Cirilo Garcias DO Emergency Provider Active Dr. Ashley Fair MD Admit Provider, Attending Provi mikel Active Membership Sales Advisor Relationship Specialty Start Date End Date Ashley Gomez CNP [address] [facility] [address] PCP - General Family Medicine 07/08/23 Membership Sales Advisor Relationship Specialty Start Date End Date Ashley Gomez CNP [address] [facility] [address] [email or web address] [address] PCP - General Family Medicine 07/08/23 Membership Sales Advisor Relationship Specialty Start Date End Date Ashley Gomez CNP [address] [facility] [place] [address] PCP - General Family Medicine 07/08/23 Membership Sales Advisor Relationship Specialty Start Date End Date Ashley Gomez INTERFACE ANALYST [address] [facility] [place] [address] PCP - General Family Medicine 07/08/23 Membership Sales Advisor Relationship Specialty Start Date End Date Ashley Goemz CNP [address] [facility] [place] [address] PCP - General Family Medicine 07/08/23 Membership Sales Advisor Relationship Specialty Start Date End Date Naga Hurt MD [address] [place] [address] PCP - General Family Medicine 12/15/22 Team Status: Inactive Member Role Status Dates Dr. Geeta Hickman MD Referring Provider Active Ashley Gomez FILTER PRESS OPERATOR, FILTER PRESS OPERATOR-C Primary Care Provider Active Denise Duff NP-C Attending Provider Active Team Status: Active Member Role Status Dates Ashley Gomez FILTER PRESS OPERATOR, FILTER PRESS OPERATOR-C Primary Care Provider Active Dr. Mickey Gutiérrez MD Attending Provider, Referring Provider Active Team Status: Inactive Member Role Status Dates Ashley Gomez NP, FILTER PRESS OPERATOR-C Primary Care Provider Active DUSTY WeberC Attending Provider, Referring Pr ovider Active Membership Sales Advisor Relationship Specialty Start Date [place] [address] PCP - General Family Medicine 12/15/22 Membership Sales Advisor Relationship Specialty Start Date [place] [address] PCP - General Family Medicine 12/15/22 Membership Sales Advisor Relationship Specialty Start Date [place] [address] PCP - General Family Medicine 12/15/22 Cornell Holden MD [address] [place] [address] [place] [address] Surgeon Urology 08/27/23 Membership Sales Advisor Relationship Specialty Start Date [place] [address] PCP - General Family Medicine 12/15/22 Cornell Holden MD [address] [place] [address] Surgeon Urology 08/27/23 Membership Sales Advisor Relationship Specialty Start Date End [place] [address] PCP - General Family Medicine 12/15/22 Cornell Holden MD [address] [place] [address] Surgeon Urology 08/27/23 Membership Sales Advisor Relationship Specialty Start Date End Date Naga Hurt MD [address] [place] [address] PCP - General Family Medicine 12/15/22 Cornell Holden MD [address] [place] [address] Surgeon Urology 08/27/23 Membership Sales Advisor Relationship Specialty Start Date End Date Naga Hurt MD [address] [place] [address] PCP - General Family Medicine 12/15/22 Cornell Holden MD [address] [place] [address] Surgeon Urology 08/27/23 Membership Sales Advisor Relationship Specialty Start Date End Date Naga Hurt MD [address] [place] [address] PCP - General Family Medicine 12/15/22 Cornell Holden MD [address] [place] [address] Surgeon Urology 08/27/23 Membership Sales Advisor Relationship Specialty Start Date End Date Naga Hurt MD [address] [place] [address] PCP - General Family Medicine 12/15/22 Cornell Holden MD [address] [place] [address] Surgeon Urology 08/27/23 Membership Sales Advisor Relationship Specialty Start Date End Date Naga Hurt MD [address] [place] [address] PCP - General Family Medicine 12/15/22 Cornell Holden MD [address] [place] [address] Surgeon Urology 08/27/23 Membership Sales Advisor Relationship Specialty Start Date End Date Naga Hurt MD [address] [place] [address] PCP - General Family Medicine 12/15/22 Cornell Holden MD [address] [place] [address] Surgeon Urology 08/27/23 Membership Sales Advisor Relationship Specialty Start Date End Date Geeta Hickman MD PCP - General Internal Medicine 06/15/22 07/07/23 Membership Sales Advisor Relationship Specialty Start Date End Date Ashok Siu MD PCP - General Family Medicine 03/21/17 06/14/22 Membership Sales Advisor Relationship Specialty Start Date End Date Ashley Gomez CNP [address] [place] [address] PCP - General Family Medicine 07/08/23 Membership Sales Advisor Relationship Specialty Start Date End Date Naga Hurt MD [address] [place] [address] PCP - General Family Medicine 12/15/22 Cornell Holden MD [address] [place] [address] Surgeon Urology 08/27/23 Membership Sales Advisor Relationship Specialty Start Date End Date Naga Hurt MD [address] [place] [address] PCP - General Family Medicine 12/15/22 Cornell Holden MD [address] [place] [address] Surgeon Urology 08/27/23 Membership Sales Advisor Relationship Specialty Start Date End Date Naga Hurt MD [address] [place] [address] PCP - General Family Medicine 12/15/22 Cornell Holden MD [address] [place] [address] Surgeon Urology 08/27/23 Membership Sales Advisor Relationship Specialty Start Date End Date Naga Hurt MD [address] [place] [phone] PCP - General Family Medicine 12/15/22 Cornell Holden MD [address] [place] [address] Surgeon Urology 08/27/23 Team Status: Active Member Role Status Dates Ashley Gomez FILTER PRESS OPERATOR, FILTER PRESS OPERATOR-C Primary Care Provider Active Team Status: Inactive Member Role Status Dates Ashley Gomez FILTER PRESS OPERATOR, FILTER PRESS OPERATOR-C Primary Care Provider Active Start: July 07, 2024 End: July 07, 2024 Ashley Gomez FILTER PRESS OPERATOR, FILTER PRESS OPERATOR-C Referring Provider Active S tart: July 07, 2024 End: July 07, 2024 Dr. Tanna Tam , Attending Provider Active Start: July 07, 2024 End: July 07, 2024 Team Status: Inactive Member Role Status Dates Ashley Gomez FILTER PRESS OPERATOR, FILTER PRESS OPERATOR-C Primary Care Provider Active Start: August 30, 2024 End: August 30, 2024 Ashley Gomez FILTER PRESS OPERATOR, FILTER PRESS OPERATOR-C Referring Provider Active S tart: August 30, 2024 End: August 30, 2024 Denise Duff FILTER PRESS OPERATOR-C Attending Provider Active Start: August 30, 2024 End: August 30, 2024 Team Status: Inactive Member Role Status Dates Ashley Gomez FILTER PRESS OPERATOR, FILTER PRESS OPERATOR-C Primary Care Provider Active Start: August 30, 2024 End: August 30, 2024 Denise Duff FILTER PRESS OPERATOR-C Attending Provider Active Start: August 30, 2024 End: August 30, 2024 Denise Duff NP-C Referring Provider Active Start: August 30, 2024 End: August 30, 2024 Team Status: Active Member Role Status Dates Ashley Gomez NP, FILTER PRESS OPERATOR-C Primary Care Provider Active Start: September 01, 2024 Dr. Chrystal Conteh DO Attending Provider Activ e Start: September 01, 2024 Dr. Chrystal Conteh DO Referring Provider Activ e Start: September 01, 2024 Team Status: Inactive Member Role Status Dates Ashley Gomez FILTER PRESS OPERATOR, FILTER PRESS OPERATOR-C Primary Care Provider Active Start: September 01, 2024 End: September 01, 2024 Dr. Chrystal Conteh DO Attending Provider Activ e Start: September 01, 2024 End: September 01, 2024 Dr. Chrystal Conteh DO Referring Provider Activ e Start: September 01, 2024 End: September 01, 2024 Team Status: Inactive Member Role Status Dates Ashley Gomez FILTER PRESS OPERATOR, FILTER PRESS OPERATOR-C Primary Care Provider Active Start: May 03, 2024 End: May 03, 2024 Ashley Gomez NP, FILTER PRESS OPERATOR-C Attending Provider Active S tart: May 03, 2024 End: May 03, 2024 Ashley Gomez FILTER PRESS OPERATOR, FILTER PRESS OPERATOR-C Referring Provider Active S tart: May 03, 2024 End: May 03, 2024 Membership Sales Advisor Relationship Specialty Start Date End Date Naga Hurt MD [address] [facility], [address] [place] [address] PCP - General Family Medicine 12/15/22 Cornell Holden MD [address] [facility] [address] [place] [address] Surgeon Urology 08/27/23 Team Status: Active Member Role/Relationship Status Dates Ashley Gomez FILTER PRESS OPERATOR, FILTER PRESS OPERATOR-C Primary Care Provider Active Team Status: Inactive Member Role/Relationship Status Dates Ashley Gomez FILTER PRESS OPERATOR, FILTER PRESS OPERATOR-C Primary Care Provider Active Start: July 07, 2024 End: July 07, 2024 Ashley Gomez FILTER PRESS OPERATOR, FILTER PRESS OPERATOR-C Referring Provider Active S tart: July 07, 2024 End: July 07, 2024 Dr. Tanna Tam , Attending Provider Active Start: July 07, 2024 End: July 07, 2024 Team Status: Inactive Member Role/Relationship Status Dates Ashley Gomez FILTER PRESS OPERATOR, FILTER PRESS OPERATOR-C Primary Care Provider Active Start: August 30, 2024 End: August 30, 2024 Ashley Gomez FILTER PRESS OPERATOR, FILTER PRESS OPERATOR-C Referring Provider Active S tart: August 30, 2024 End: August 30, 2024 DUSTY WeberC Attending Provider Active Start: August 30, 2024 End: August 30, 2024 Team Status: Inactive Member Role/Relationship Status Dates Ashley Gomez NP, FILTER PRESS OPERATOR-C Primary Care Provider Active Start: August 30, 2024 End: August 30, 2024 TEJINDER Weber Attending Provider Active Start: August 30, 2024 End: August 30, 2024 Denise Duff NP-C Referring Provider Active Start: August 30, 2024 End: August 30, 2024 Team Status: Inactive Member Role/Relationship Status Dates Ashley Gomez NP, FILTER PRESS OPERATOR-C Primary Care Provider Active Start: September 01, 2024 End: September 01, 2024 Dr. Chrystal Conteh DO Attending Provider Activ e Start: September 01, 2024 End: September 01, 2024 Dr. Chrystal Conteh DO Referring Provider Activ e Start: September 01, 2024 End: September 01, 2024 Team Status: Inactive Member Role/Relationship Status Dates Ashley Gomez FILTER PRESS OPERATOR, FILTER PRESS OPERATOR-C Primary Care Provider Active Start: October 09, 2024 End: October 09, 2024 Roseann Gee Attending Provider Active Sta rt: October 09, 2024 End: October 09, 2024 Team Status: Inactive Member Role/Relationship Status Dates Ashley Gomez FILTER PRESS OPERATOR, FILTER PRESS OPERATOR-C Primary Care Provider Active Start: September 26, 2024 Dr. Ashley Fair MD Attending Provider Active Start: September 26, 2024 Team Status: Inactive Member Role/Relationship Status Dates Ashley Gomez FILTER PRESS OPERATOR, FILTER PRESS OPERATOR-C Primary Care Provider Active Start: October 09, 2024 End: October 09, 2024 Roseann Gee Attending Provider Active Sta rt: October 09, 2024 End: October 09, 2024 Team Status: Inactive Member Role/Relationship Status Dates Ashley Gomez FILTER PRESS OPERATOR, FILTER PRESS OPERATOR-C Primary Care Provider Active Start: October 18, 2024 End: October 18, 2024 Ashley Gomez FILTER PRESS OPERATOR, FILTER PRESS OPERATOR-C Referring Provider Active S tart: October 18, 2024 End: October 18, 2024 Dr. Tanna Tam , Attending Provider Active Start: October 18, 2024 End: October 18, 2024 Team Status: Inactive Member Role/Relationship Status Dates Ashley Gomez FILTER PRESS OPERATOR, FILTER PRESS OPERATOR-C Primary Care Provider Active Start: October 18, 2024 End: October 18, 2024 Dr. Chrystal Conteh DO Attending Provider Activ e Start: October 18, 2024 End: October 18, 2024 Dr. Chrystal Conteh DO Referring Provider Activ e Start: October 18, 2024 End: October 18, 2024 Membership Sales Advisor Relationship Specialty Start Date End Date Naga Hurt MD [address] [facility] [place] [address] PCP - General Family Medicine 12/15/22 Cornell Holden MD [address] [facility] [address] [place] [address] Surgeon Urology 08/27/23 Team Status: Active Member Role/Relationship Status Dates Ashley Gomez FILTER PRESS OPERATOR, FILTER PRESS OPERATOR-C Primary care physician Active Team Status: Inactive Member Role/Relationship Status Dates Ashley Gomez FILTER PRESS OPERATOR, FILTER PRESS OPERATOR-C Primary care physician Active Start: August 30, 2024 End: August 30, 2024 Ashley Gomez FILTER PRESS OPERATOR, FILTER PRESS OPERATOR-C Referring Provider Active S tart: August 30, 2024 End: August 30, 2024 TEJINDER Weber Attending physician Active Start: August 30, 2024 End: August 30, 2024 Team Status: Inactive Member Role/Relationship Status Dates Ashley Gomez FILTER PRESS OPERATOR, FILTER PRESS OPERATOR-C Primary care physician Active Start: August 30, 2024 End: August 30, 2024 TEJINDER Weber Attending physician Active Start: August 30, 2024 End: August 30, 2024 TEJINDER Weber Referring Provider Active Start: August 30, 2024 End: August 30, 2024 Team Status: Inactive Member Role/Relationship Status Dates Ashley Gomez NP, FILTER PRESS OPERATOR-C Primary care physician Active Start: September 01, 2024 End: September 01, 2024 Dr. Chyrstal Conteh DO Attending physician Acti ve Start: September 01, 2024 End: September 01, 2024 Dr. Chrystal Conteh DO Referring Provider Activ e Start: September 01, 2024 End: September 01, 2024 Team Status: Inactive Member Role/Relationship Status Dates Ashley Gomez NP, FILTER PRESS OPERATOR-C Primary care physician Active Start: September 26, 2024 Dr. Ashley Fair MD Attending physician Active Start: September 26, 2024 Team Status: Inactive Member Role/Relationship Status Dates Ashley Gomez NP, FILTER PRESS OPERATOR-C Primary care physician Active Start: October 09, 2024 End: October 09, 2024 Roseann Gee Attending physician Active St art: October 09, 2024 End: October 09, 2024 Team Status: Inactive Member Role/Relationship Status Dates Ashley Gomez FILTER PRESS OPERATOR, FILTER PRESS OPERATOR-C Primary care physician Active Start: October 18, 2024 End: October 18, 2024 Ashley Gomez FILTER PRESS OPERATOR, FILTER PRESS OPERATOR-C Referring Provider Active S tart: October 18, 2024 End: October 18, 2024 Dr. Tanna Tam , Attending physician Active Start: October 18, 2024 End: October 18, 2024 Team Status: Inactive Member Role/Relationship Status Dates Ashley Gomez FILTER PRESS OPERATOR, FILTER PRESS OPERATOR-C Primary care physician Active Start: October 18, 2024 End: October 18, 2024 Dr. Chrystal Conteh , DO Attending physician Acti ve Start: October 18, 2024 End: October 18, 2024 Dr. Chrystal Conteh , DO Referring Provider Activ e Start: October 18, 2024 End: October 18, 2024 Team Status: Inactive Member Role/Relationship Status Dates Ashley Gomez FILTER PRESS OPERATOR, FILTER PRESS OPERATOR-C Primary care physician Active Start: December 16, 2024 End: December 16, 2024 Roseann Gee NP-Krishan Attending physician Active Start: December 16, 2024 End: December 16, 2024 Roseann Gee NP-Krishan Referring Provider Active Start: December 16, 2024 End: December 16, 2024 Membership Sales Advisor Relationship Specialty Start Date End Date Ashley Gomez, APN-INTERFACE ANALYST [address] [place] [address] PCP - General 12/27/24 Membership Sales Advisor Relationship Specialty Start Date End Date Naga Hurt MD [address] [facility] [place] [address] PCP - General Family Medicine 12/15/22 Cornell Holden MD [address] [facility] [place] [address] [place] [address] Surgeon Urology 08/27/23 Scheduled Active and Recently [...] mL/hr, Administer over 1 Hours, Once, On 10/18/23 at 1320, For 1 dose 1337 (New Bag - Prov ider: Marcelino Valencia RN)[id number] (Stopped - Provider: Marcelino Valencia RN) INFORMATION SOURCE (unrecogn ized section and content) DATE CREATED AUTHOR 01/11/2024 [facility] DATE CREATED AUTHOR AUTHOR'S ORGANIZ ATION 01/04/2025 [facility] DATE CREATED AUTHOR AUTHOR'S ORGANIZ ATION 01/17/2025 [facility] DATE CREATED AUTHOR AUTHOR'S ORGANIZ ATION 01/18/2025 [facility] FOR RECORDS PERTAINING TO PATIENTS WHO [...] BE BASED ON THE PRIMARY CLINICAL RECORDS. [employer] provides no warranty or guarantee of the accuracy or completeness of information in this document.
--- NOTE | 2025-03-18 15:48 | ED.VIS.LOWEX ---
HPI History of Present Illness Chief Complaint: Lower Extremity Injury Detail of Chief Complaint: Injury to left knee Informant: patient Narrative Narrative: Patient presents to the emergency department with complaint of injury to her left knee. Patient states that she was picking up laundry this morning and she felt a pop in her knee. Having pain with bearing weight but able to bear weight. She did not fall. [facility] Medical History Pelvic pain Left shoulder pain Osteoarthritis of right knee Right knee pain Urinary tract infection Gross hematuria Lesion of bladder Wears glasses Anxiety Alcohol use History of steroid therapy Arthritis Bladder disease Easy bruising Back pain Difficulty swallowing History of IBS Gastric reflux Non-smoker Hypertension History of nasal obstruction Nausea Bloating History of skin cancer IBS (irritable bowel syndrome) History of gastrointestinal disorder Hx of carpal tunnel syndrome Hx: UTI (urinary tract infection) Hx of seasonal allergies Cough Herpes zoster Menorrhagia with regular cycle Asthma Anemia Depression Acid reflux Vitamin D deficiency Chronic diarrhea History of anxiety Home Medications ?Medication ?Instructions ?Recorded ?Last Taken ?Type albuterol sulfate 90 mcg/actuation 2 puff inhalation Q6H PRN 12/10/21 Unknown Rx aerosol inhaler shortness of breath or wheezing #8.5 grams dicyclomine 10 mg capsule 10 mg PO TID PRN abdominal pain 06/03/22 Unknown History bupropion HCl 300 mg 24 hr tablet, 300 mg PO QAM #90 tabs 06/24/22 03/18/25 Rx extended release (Wellbutrin XL) lisinopril 5 mg tablet 5 mg PO DAILY #30 tabs 08/13/22 03/18/25 Rx fluoxetine 40 mg capsule 40 mg PO DAILY #90 caps 09/21/22 03/18/25 Rx albuterol sulfate 2.5 mg/0.5 mL 5 mg inhalation Q6H PRN shortness 09/24/22 Unknown Rx solution for nebulization of breath or wheezing #30 ea fluticasone propionate 50 1 spray intranasal DAILY PRN 06/03/23 06/09/23 History mcg/actuation nasal allergy symptoms spray,suspension (Flonase Allergy Relief) meloxicam 15 mg tablet 15 mg PO DAILY Pain 06/03/23 03/18/25 History ondansetron 4 mg disintegrating 4 mg PO TID PRN nausea and 02/13/24 Unknown Rx tablet vomiting #21 tabs lidocaine 5 % topical patch 1 patch topical DAILY #15 ea 02/17/24 Unknown Rx (Lidoderm) fluoxetine 20 mg capsule 20 mg PO QDAY 04/05/24 03/18/25 History cyclobenzaprine 5 mg tablet 5 mg PO TID PRN muscle spasm #30 04/21/24 Unknown Rx tabs estradiol 0.01% (0.1 mg/gram) See Rx Instructions vaginal 08/30/24 Unknown Rx vaginal cream .COMPLEX #42.5 grams gabapentin 100 mg capsule 100 mg PO BID PRN neuropathy 08/30/24 Unknown History pantoprazole 20 mg tablet,delayed 20 mg PO BID #60 TABLETS 02/12/25 03/18/25 Rx release hydrocodone-acetaminophen 5-325mg 1 tab PO Q4H PRN PRN Pain 2 days 03/18/25 Unknown Rx 5mg-325mg #10 TABLETS rosuvastatin 5 mg tablet 5 mg PO DAILY 03/18/25 03/17/25 History sucralfate 100 mg/mL oral 10 ml PO BID PRN indigestion 03/18/25 Unknown History suspension Allergy/AdvReac Type Severity Reaction Status Date / Time ofloxacin Allergy Severe SWELLING Verified 03/18/25 15:21 Environmental Allergies: Allergy Intermediate Itching Verified 03/18/25 15:21 Uncoded Family History Grandmother Heart disease Colon cancer Diabetes Grandmother Diabetes Father Rheumatoid arthritis Mother Anxiety Arthritis Depression Brother Asthma Allergies Grandfather Cancer Surgical History History of esophagogastroduodenoscopy (EGD) Hx of colonoscopy S/P endometrial ablation Status post hysteroscopy History of tonsillectomy History of carpal tunnel surgery Hx of cholecystectomy Social History adopted: No household members: family housing: apartment number of children: 3 current occupational status: employed current occupation: [employer] sexually active: Yes Smoking Status: Never smoker Electronic Cigarette Use: not used alcohol intake: current alcohol intake frequency: holidays/special occasions only details: social substance use type: does not use caffeine: Yes what type of physical activity do you participate in: none and walking frequency: 1-2 times per week seatbelt use: always do you feel safe at home: Yes additional social history: Single ROS ROS ED Review of Systems ROS Unobtainable: other Constitutional Constitutional ED: Reports lethargy; Denies chills, fever(s), sweats or weight loss Eyes Eyes: Denies blurry vision, change in vision or diplopia ENT ENT ED: Denies rhinorrhea or sore throat Cardiovascular Cardiovascular: Denies chest pain, orthopnea or racing heartbeat Respiratory/Chest Respiratory/Chest: Denies cough, dyspnea, dyspnea on exertion, orthopnea or sputum Gastrointestinal Gastrointestinal: Denies abdominal pain, diarrhea, nausea or vomiting Genitourinary Genitourinary ED: Denies dysuria, hematuria or urinary frequency Musculoskeletal Musculoskeletal: Reports other Details: Left knee pain/injury ; Denies arthralgias, back pain, myalgias or neck pain Integumentary Denies abscess, Abrasions or rash Neurologic Neurologic: Denies headache(s) or weakness Psychiatric Psychiatric: Denies anxiety, depression or suicidal thoughts Endocrine Endocrinology: Denies polydipsia, polyphagia or polyuria Hematologic/Lymphatic Hematologic/Lymphatic: Denies easy bleeding, easy bruising or lymphadenopathy Allergic/Immunologic Allergic/Immunologic ED: Denies mouth swelling, tongue swelling or urticaria EXAM Physical Exam Const Vital Signs: 03/18/25 15:21 Temperature 96.2 F L Temperature Source Temporal Pulse Rate 98 Respiratory Rate 16 Blood Pressure 142/85 H Blood Pressure Mean 104 Pulse Ox 99 Oxygen Delivery Method Room Air Positive well nourished and well developed General Appearance ED: well developed and NAD HEENT Reports TM's clear and moist mucous membranes normocephalic and atraumatic; Negative for trauma or tenderness Tympanic Membrane ED: Yes TM's clear Eyes PERRL and EOMs intact bilaterally General Eye ED: Negative for pale conjunctiva or scleral icterus Neck no lymphadenopathy, supple and no JVD General: Negative for tenderness Chest Wall inspection of chest normal and palpation of chest normal Chest: Negative for tenderness Resp normal respiratory effort and clear to auscultation bilaterally Effort and Inspection: Negative for respiratory distress or pain with movement Auscultation: Negative for rhonchi, wheezes or diminished lung sounds Cardio regular rate, regular rhythm, S1 normal heart sound, S2 normal heart sound and no murmurs Peripheral Pulses: pulses 2+ throughout GI normal to inspection, nondistended, normoactive bowel sounds, soft to palpation, non-tender, non-distended and no masses Back/Spine no CVA tenderness and no thoracic nor lumbar tenderness Extremity Extremity Narrative: Left knee-no effusion noted. No ecchymosis or bruising. She has some tenderness palpation over the anterior lateral joint line. Patellar tendon intact and she is able to lift her leg off the bed without difficulty. Negative anterior posterior drawer test. No laxity with varus or valgus stress. Some pain with Lockman maneuver. General Extremety ED: Negative for edema General Extremity: Negative for edema Neuro oriented x3, CN's II-XII intact bilaterally, no sensory deficits noted and gait normal Sensorium / Orientation: awake, alert, oriented to person, oriented to place and oriented to time Motor Exam: strength 5/5 throughout and strength abnormal Psych mental status grossly normal Skin no rashes or lesions noted and no wounds MDM MDM MDM Narrative Medical decision making narrative: Patient presents with left knee pain after hearing a pop in her knee. There was no fall or direct trauma. X-rays negative for fracture. She had a narrow compartment medially compared to the lateral compartment however her pain is more lateral. Based on her mechanism and complaint of pain suspect possibility of injury to the lateral meniscus. Will place patient in knee immobilizer and give her crutches for comfort. Will write her prescription for few [place] for pain. Will refer to orthopedics for follow-up. Radiography Diagnostic Testin view x-rays of the left knee obtained interpreted by myself as no evidence of fracture or dislocation. The medial compartment joint space is narrowed compared to the lateral. Discharge Plan Triage Chief Complaint: Lower Extremity Injury ED Provider: Beata Khan Dx/Rx/DC Orders Clinical Impression: Knee pain, left, Knee sprain Instructions: ED Knee Sprain Prescriptions: New hydrocodone-acetaminophen 5-325 mg tablet 1 tab PO Q4H PRN PRN (Reason: Pain) 2 Days Qty: 10 0RF No Action albuterol sulfate 90 mcg/actuation HFA aerosol inhaler 2 puff inhalation Q6H PRN (Reason: shortness of breath or wheezing) Qty: 8.5 1RF dicyclomine 10 mg capsule 10 mg PO TID PRN (Reason: abdominal pain) bupropion HCl [Wellbutrin XL] 300 mg tablet extended release 24 hr 300 mg PO QAM Qty: 90 1RF fluoxetine 20 mg capsule 20 mg PO QDAY gabapentin 100 mg capsule 100 mg PO BID PRN (Reason: neuropathy) estradiol 0.01 % (0.1 mg/gram) cream See Rx Instructions vaginal .COMPLEX Qty: 42.5 0RF Rx Instructions: 4 clicks vaginally twice a week/compounded cream cyclobenzaprine 5 mg tablet 5 mg PO TID PRN (Reason: muscle spasm) Qty: 30 0RF meloxicam 15 mg tablet 15 mg PO DAILY Rx Instructions: Do not take in conjunction with other NSAIDs. Tylenol is okay. fluticasone propionate [Flonase Allergy Relief] 50 mcg/actuation spray,suspension 1 spray intranasal DAILY PRN (Reason: allergy symptoms) Rx Instructions: administer into each nostril ondansetron 4 mg tablet,disintegrating 4 mg PO TID PRN (Reason: nausea and vomiting) Qty: 21 0RF lidocaine [Lidoderm] 5 % adhesive patch,medicated 1 patch topical DAILY Qty: 15 0RF Rx Instructions: leave on most painful area for up to 12 hrs sucralfate [Carafate] 100 mg/mL suspension 10 ml PO BID PRN (Reason: indigestion) rosuvastatin 5 mg tablet 5 mg PO DAILY lisinopril 5 mg tablet 5 mg PO DAILY Qty: 30 2RF fluoxetine 40 mg capsule 40 mg PO DAILY Qty: 90 1RF albuterol sulfate 2.5 mg/0.5 mL solution for nebulization 5 mg inhalation Q6H PRN (Reason: shortness of breath or wheezing) Qty: 30 0RF pantoprazole 20 mg tablet,delayed release (DR/EC) 20 mg PO BID Qty: 60 3RF Primary Care Provider: Cailin Gomez NP Referrals: Baldomero Burnham DO [Med Staff - Active Staff, Orthopedics] - 3-5 Days Cailin Gomez NP, CERTIFIED CAREGIVER-C [Primary Care Provider, Medical] Activity Restrictions/Additional Instructions: Follow-up with orthopedics. Concern for possible meniscus injury. May need further imaging such as MRI to evaluate further if symptoms persist. Print Language: Turkish Disposition Disposition: Home, Self Care
--- NOTE | 2025-03-18 15:50 | RAD_ITS ---
PROCEDURE: KNEE 4 OR MORE VIEWS 03/18/2025 REASON FOR EXAM: INJURY TECHNIQUE: Procedure Code: RADKN Modality: DX Procedure: KNEE 4 OR MORE VIEWS FINDINGS: Avulsion fracture of the lateral aspect/lateral osteophyte of the patella. Otherwise no other acute fractures. No dislocations. No large joint effusion. No acute soft tissue abnormalities. No radiographic foreign body. RAD/Knee 4 or More Views IMPRESSION: Avulsion fracture of the lateral aspect/lateral osteophyte of the patella. Othe rwise no other acute fractures. No dislocations. Reading Location: [id number]
--- NOTE | 2025-03-18 15:52 | CM.ED ---
Social Work Date of referral: 03/18/25 Reason for referral: No Advanced Care Directives (ACD's) on file. Referred by: Social Work Identification. Patient provided consent to social work visit. Publicity Expert requested copy of ACD's which patient agreed to bring in. Chrystal Vázquez, CLIMATOLOGIST, VENDING ENTERPRISES SUPERVISOR
[2025-03-18 16:55] VITALS: BP 142/85; PULSE 98; RESP 16; TEMP 35.7; O2SAT 99
== END 2025-03-18 16:56 | disposition home or self-care (01) ==
PROVIDERS: Emergency Provider Emergency Medicine; PCP Registered Nurse; Visit Provider Emergency Medicine
DX: S83.92XA Sprain of unspecified site of left knee, initial encounter (principal); I10 Essential (primary) hypertension; K21.9 Gastro-esophageal reflux disease without esophagitis; J45.909 Unspecified asthma, uncomplicated; Z79.899 Other long term (current) drug therapy; X58.XXXA Exposure to other specified factors, initial encounter
CPT/HCPCS: 73564; 99284